=== PATIENT | female | born 1950 | race Caucasian/White ===

== ENCOUNTER 2020-01-14 12:38 | Outpatient (CLI) | payer OTHER, SELFPAY ==
--- NOTE | ~2020-01-14 | MM_ITS ---
EXAMINATION: MM screening renee BI w monroe HISTORY: Screening mammogram TECHNIQUE: Craniocaudal and mediolateral oblique 3-D tomosynthesis images were obtained and synthetic 2-D images were generated. CAD analysis was submitted and interpreted. COMPARISON: 08/28/2018, 08/15/2017, 08/02/2016 bilateral digital screening mammogram examinations BREAST PARENCHYMAL COMPOSITION: There are scattered areas of fibroglandular density. FINDINGS: Stable mild asymmetry. There is no evidence of suspicious mass, calcification, or digital solutions architect ural distortion to suggest malignancy in either breast. There has been no suspicious interval change. IMPRESSION: 1. No mammographic evidence of malignancy. 2. Recommend routine screening mammography in one year. BI-RADS Category 2: Benign finding(s). Reviewed, dictated and finalized at location A.
--- NOTE | ~2020-01-14 | DEXA_ITS ---
Bone Density Report Name: Loida Guillory Age: 69 Sex: Female Ethnicity: White Date of : 1950 Indication: postmenopausal; height loss; rheumatoid arthritis; Referring Provider: Denisse Mendoza Study: Bone densitometry was performed. Exam Date: January 14, 2020 Accession number: [id number] Bone Density: Region BMD T-score Z-score Classification AP Spine (L1-L4) 1.144 0.9 3.1 Normal Femoral Neck (Left) 0.676 -1.6 0.3 Osteopenia Total Hip (Left) 0.799 -1.2 0.4 Osteopenia Total Hip Bilateral Avg 0.801 -1.2 0.4 Osteopenia Femoral Neck (Right) 0.664 -1.7 0.2 Osteopenia Total Hip (Right) 0.803 -1.1 0.4 Osteopenia World Health Organization criteria for BMD impression classify patients as: Normal (T-score at or above -1.0), Osteopenia (T-score between -1.0 and -2.5), or Osteoporosis (T-score at or below -2.5). 10-year Fracture Risk(1): Major Osteoporotic Fracture 13% Hip Fracture 2.5% Reported Risk Factors: [place] (), Neck BMD=0.664, BMI=23.3, rheumatoid arthritis (1) FRAX(R) Version 3.08. Fracture probability calculated for an untreated patient. Fracture probability may be lower if the patient has received treatment. Clinical Information Provided by Patient: Has rheumatoid arthritis Has used the following medications: Calcium Patient maximum height was 65 Menopause Age: 46 No regular weight bearing exercise Drinks caffeinated beverages Onset of menses at age 10 Number of children 2 Impression: The patient has low bone mass, based on the Right Femoral Neck T-score. The patient has an estimated ten-year risk of hip fracture of 2.5% and an estimated ten-year risk of major fracture of 13%, based on the WHO FRAX algorithm. Discussion: BONE DENSITY IS LOW AT ONE OR MORE SKELETAL SITES. This patient's lowest T-score is low at one or more skeletal sites. It meets the World Health Organization's (WHO) criteria for ?low bone mass? (T-score between -1.0 and -2.5). The patient's 10-year risk of fracture as calculated by FRAX is less than the threshold where pharmacological therapy is recommended by the National Osteoporosis Foundation (NOF). However, all treatment decisions require clinical judgment and consideration of individual patient factors, including patient preferences, comorbidities, previous drug use, risk factors not captured in the FRAX model (e.g., frailty, falls, vitamin D deficiency, increased bone turnover, interval significant decline in bone density) and possible under or overestimation of fracture risk by FRAX. The patient should follow a healthful lifestyle (good nutrition with adequate calcium and vitamin D, and appropriate weight-bearing exercise). Follow-Up: Consider repeating this study in 2 to 3 years to reassess this patient's status, or sooner if there is some new clinical
== END 2020-01-14 12:39 | disposition home or self-care (01) ==
PROVIDERS: PCP Internal Medicine; Visit Provider Nurse Practitioner
DX: Z12.31 Encounter for screening mammogram for malignant neoplasm of breast (principal); Z78.0 Asymptomatic menopausal state; M85.852 Other specified disorders of bone density and structure, left thigh; M85.851 Other specified disorders of bone density and structure, right thigh
CPT/HCPCS: 77063; 77067; 77080

== ENCOUNTER 2020-06-16 11:30 | Outpatient (CLI) | payer OTHER, SELFPAY ==
--- NOTE | ~2020-06-16 | XR_ITS ---
EXAMINATION: XR foot LT standing 2V DATE: 06/16/2020 12:24 INDICATION: Rheumatoid arthritis with rheumatoid factor of multiple sites. TECHNIQUE: 2 views of left foot were obtained. COMPARISON: None. FINDINGS: Bone alignment is normal. No fracture. There is mild osteoarthritis at talonavicular joint and some of the interphalangeal joints. There are enthesophytes at the posterior and plantar aspects of calcaneal tuberosity. IMPRESSION: 1. Mild polyarticular osteoarthritis. Reviewed, dictated and finalized at location A. OYEE BENEFITS ATTORNEY
--- NOTE | ~2020-06-16 | XR_ITS ---
EXAMINATION: XR foot RT standing 2V DATE: 06/16/2020 12:24 INDICATION: Rheumatoid arthritis with rheumatoid factor of multiple sites. TECHNIQUE: 3 views of right foot were obtained. COMPARISON: None. FINDINGS: Bone alignment is normal. No fracture. There is mild osteoarthritis of some of the interpha langeal joints. There are enthesophytes at the posterior and plantar aspects of calcaneal tuberosity. IMPRESSION: 1. Mild polyarticular osteoarthritis. Reviewed, dictated and finalized at location A. L HEWER
--- NOTE | ~2020-06-16 | XR_ITS ---
EXAMINATION: XR hand BI arthritis min 3V DATE: 06/16/2020 12:24 INDICATION: Rheumatoid arthritis with rheumatoid factor of multiple sites. TECHNIQUE: 4 views of right hand and 4 views of left hand on 7 radiographs were obtained. COMPARISON: None. FINDINGS: RIGHT HAND: There is ulnar angulation of third middle phalanx with respect to the proximal phalanx, u lnar angulation of fifth proximal phalanx with respect to the metacarpal, and radial angulation of fi fth distal phalanx with respect to the middle phalanx. There are swan neck deformities of the third a nd fourth digits. No fracture. There is mild osteoarthritis of triscaphe joint and severe osteoarthri tis of first carpometacarpal joint. There is mild osteoarthritis of first metacarpophalangeal joint a nd moderate osteoarthritis of second metacarpophalangeal joint. There is mild osteoarthritis of fifth metacarpophalangeal joint. There is severe arthritis of second proximal interphalangeal joint, third proximal and distal interphalangeal joints, and fifth distal interphalangeal joint characterized by severe joint space loss, erosions, and osteophytes, likely severe osteoarthritis. There is moderate o steoarthritis of second distal interphalangeal joint and mild osteoarthritis of some of the other int erphalangeal joints. LEFT HAND: There is ulnar subluxation of second-fourth middle phalanges with respect to the proximal phalanges and radial subluxation of third and fourth distal phalanges with respect to the middle phal anges. There is radial angulation of fifth distal phalanx with respect to the middle phalanx. There a re swan-neck deformities of the second-fourth digits. There is mild osteoarthritis of triscaphe joint and severe osteoarthritis of first carpometacarpal joint. There is mild osteoarthritis of most of th e metacarpophalangeal joints and some of the interphalangeal joints. There is severe arthritis of sec ond proximal interphalangeal joint, third proximal and distal interphalangeal joints, and fourth and fifth proximal and distal interphalangeal joints of fifth distal interphalangeal joint characterized by severe joint space loss, erosions, and osteophytes, likely severe osteoarthritis. IMPRESSION: 1. Polyarticular osteoarthritis. No specific evidence of inflammatory arthropathy. Reviewed, dictated and finalized at location A. LE SKIMMER IMPRESSION: 1. Polyarticular osteoarthritis. No specific evidence of inflammatory arthropat hy.
--- NOTE | ~2020-06-16 | XR_ITS ---
EXAMINATION: XR cervical spine 4-5V DATE: 06/16/2020 12:24 INDICATION: Rheumatoid arthritis with rheumatoid factor of multiple sites. TECHNIQUE: 4 views of cervical spine were obtained. COMPARISON: Neck CT 01/01/2019 FINDINGS: There is 3 mm anterolisthesis of C4 on C5. There is kyphosis of lower cervical spine. There is 17 degrees levoscoliosis of cervicothoracic spine. Vertebral body heights are normal. There is mo derately decreased disc height at C4-C5 and severely decreased disc height at C5-C6 and C6-C7. There is multilevel facet joint osteoarthritis, severe on the left at C3-C4 and C4-C5. There is mild centra l canal stenosis at C4-C5, C5-C6, and C6-C7. No prevertebral soft tissue swelling. IMPRESSION: 1. Severe cervical spondylosis. 2. Cervicothoracic levoscoliosis. Reviewed, dictated and finalized at location A. TECHNICIAN
== END 2020-06-16 11:31 | disposition home or self-care (01) ==
LOC: ANHIMG 11:40
PROVIDERS: PCP Internal Medicine; Visit Provider Internal Medicine
DX: S63.072A Subluxation of distal end of left ulna, initial encounter (principal); M19.042 Primary osteoarthritis, left hand; M19.041 Primary osteoarthritis, right hand; M16.0 Bilateral primary osteoarthritis of hip; M47.812 Spondylosis without myelopathy or radiculopathy, cervical region; M41.9 Scoliosis, unspecified
CPT/HCPCS: 72050; 73130; 73620

== ENCOUNTER 2020-06-23 11:09 | Outpatient (CLI) | payer OTHER, SELFPAY ==
--- NOTE | ~2020-06-23 | US_ITS ---
EXAMINATION: US abdomen limited DATE: 06/23/2020 11:35 INDICATION: Right upper quadrant abdominal pain TECHNIQUE: Multiple grayscale and Doppler ultrasound images of the abdomen were obtained. COMPARISON: None FINDINGS: Visualized portion of the pancreatic body is normal. Portions of the head and tail are obscured. Live r has normal echogenicity and contour, with a smooth surface. No liver lesion identified. No intrahep atic biliary duct dilation suspected. Portal venous flow was seen in the hepatopetal, normal directio n and has normal Doppler waveform. The gallbladder is normal in appearance. There is no cholelithias is. The common bile duct measures 3 mm, which is normal. Sonographic Jones sign was reported as nega tive by the material attendant. The visualized proximal to mid inferior vena cava and aorta are normal. Righ t kidney measures 11.2 x 2.6 x 4.3 cm a demonstrates normal contour and echogenicity with no hydronep hrosis. IMPRESSION: 1. Normal right upper quadrant ultrasound. Reviewed, dictated and finalized at location B. ATION COURSES SALES REPRESENTATIVE
== END 2020-06-23 11:10 | disposition home or self-care (01) ==
LOC: ANHIMG 11:10
PROVIDERS: PCP Internal Medicine; Visit Provider Internal Medicine
DX: R10.11 Right upper quadrant pain (principal)
CPT/HCPCS: 76705

== ENCOUNTER 2021-01-19 08:02 | Outpatient (CLI) | payer OTHER, SELFPAY ==
--- NOTE | ~2021-01-19 | MM_ITS ---
EXAMINATION: MM screening renee BI w monroe HISTORY: Screening TECHNIQUE: Craniocaudal and mediolateral oblique 3-D tomosynthesis images were obtained and synthetic 2-D images were generated. CAD analysis was submitted and interpreted. COMPARISON: Comparison to multiple prior studies sequentially, with oldest reviewed study dated 07/13. BREAST PARENCHYMAL COMPOSITION: Breast composed of scattered areas of fibroglandular density FINDINGS: There is no evidence of suspicious mass, calcification, or architectural distortion to sugg est malignancy in either breast. There has been no suspicious interval change. IMPRESSION: 1. No mammographic evidence of malignancy. 2. Recommend routine screening mammography in one year. BI-RADS Category 1: Negative Reviewed, dictated and finalized at location A.
== END 2021-01-19 08:03 | disposition home or self-care (01) ==
LOC: ANHIMG 08:04
PROVIDERS: PCP Internal Medicine; Visit Provider Nurse Practitioner
DX: Z12.31 Encounter for screening mammogram for malignant neoplasm of breast (principal)
CPT/HCPCS: 77063; 77067

== ENCOUNTER 2021-07-22 08:34 | Outpatient (CLI) | payer OTHER, SELFPAY ==
--- NOTE | ~2021-07-22 | CT_ITS ---
EXAMINATION: CT soft tissue neck wo con DATE: 07/22/2021 09:36 INDICATION: Left jaw pain. TECHNIQUE: Computed tomography (CT) of the neck was performed without intravenous contrast. Automated exposure control and iterative reconstruction technique were employed. The dose-length product was 2 86.76 mGy-cm. COMPARISON: CT neck 01/01/2019 FINDINGS: There is mild scarring at the lung apices. In the right lung upper lobe, there is a 14 mm n odule. There are likely changes of ocular lens replacement surgeries. There is a 3.6 cm mass in super ficial right parotid gland. There are no pathologically enlarged lymph nodes. The mastoid air cells a re normal. The paranasal sinuses are clear. There is mild osteoarthritis of left temporomandibular shay int. There is severe cervical spondylosis. IMPRESSION: 1. New 14 mm nodule in right lung upper lobe suspicious for primary bronchogenic carcinoma. 2. Stable 3.6 cm mass in superficial right parotid gland. The differential diagnosis includes benign mixed tumor and Warthin tumor. Reviewed, dictated and finalized at location A. IMPRESSION: 1. New 14 mm nodule in right lung upper lobe suspicious for primary bronchogeni c carcinoma. 2. Stable 3.6 cm mass in superficial right parotid gland. The differential diag nosis includes benign mixed tumor and Warthin tumor.
== END 2021-07-22 08:35 | disposition home or self-care (01) ==
LOC: ANHIMG 08:37
PROVIDERS: PCP Internal Medicine; Visit Provider Nurse Practitioner
DX: R68.84 Jaw pain (principal); H92.02 Otalgia, left ear; R91.1 Solitary pulmonary nodule; K11.8 Other diseases of salivary glands
CPT/HCPCS: 70490

== ENCOUNTER 2021-08-07 18:47 | Emergency (ER) | payer OTHER, SELFPAY ==
[2021-08-07 19:20] VITALS: BP 113/50; PULSE 89; RESP 17; TEMP 37.3; O2SAT 97
--- NOTE | 2021-08-07 19:45 | ED.GENADULT ---
HPI - General Adult General Chief complaint: Nausea/Vomiting/Diarrhea Stated complaint: nausea/vomiting/diarrhea Time Seen by Provider: 08/07/21 19:24 Source: patient and family Limitations: no limitations History of Present Illness HPI narrative: 71-year-old female presented to the emergency department for evaluation of nausea vomiting diarrhea and dizziness. Patient states that she had follow-up with ENT approximately 10 days ago and was started on amoxicillin and steroid. Patient states after approximately 5 days of being on the amoxicillin she began developing diarrhea. Patient states she did have 2 episodes of nausea. Patient suspects that she is dehydrated and has had some associated dizziness. Patient denies any associated abdominal pain. Patient stopped taking the antibiotics yesterday. Patient denies any prior history of C. difficile Related Data Home Medications Medication Instructions Recorded Confirmed aspirin 81 mg tablet,delayed 81 mg PO DAILY 06/17/19 07/13/21 release budesonide-formoterol HFA 160 2 puff INHALATION Q12H 06/17/19 07/13/21 mcg-4.5 mcg/actuation aerosol inhaler omega-3 fatty acids 1,000 mg 1,000 mg PO DAILY 06/17/19 07/13/21 capsule calcium carbonate 600 mg-vitamin 1 tablet PO DAILY 07/13/21 07/13/21 D3 20 mcg (800 unit) tablet Allergies Allergy/AdvReac Type Severity Reaction Status Date / Time omeprazole Allergy Unknown rash Verified 08/07/21 19:14 Review of Systems Review of Systems: CONSTITUTIONAL: Denies fever, chills, or sweats. EYES: Denies visual changes, redness, or discharge. ENT: Denies rhinorrhea, congestion, sore throat, or otalgia. CARDIOVASCULAR: Denies chest pain, palpitations, or edema. RESPIRATORY: Denies cough or dyspnea. GASTROINTESTINAL: See HPI GENITOURINARY: Denies dysuria or hematuria. SKIN: Denies rash or itching. MUSCULOSKELETAL: Denies back pain, joint pain, or myalgia. NEUROLOGIC: Denies headache, numbness, or weakness. PSYCHIATRIC: Denies anxiety or depression. All systems reviewed & are unremarkable except as noted in HPI and below PMFSH Past Medical History Medical History Arthritis Cancer of vulva Epigastric abdominal pain Generalized osteoarthritis of multiple sites Hypertension Rheumatoid arthritis with rheumatoid factor of multiple sites without organ or systems involvement (~2018) Tumor of soft tissue of neck (~2020) Surgical History Surgical History Hx of cataract surgery Family History Family History Mother Cerebrovascular accident Kidney disease Sibling Family history of malignant neoplasm Grandparent Hypertension Heart disease Social History Social History Smoking packs per day: 1 Smoking cigarettes per day: 20.0 Years smoked: 40 Smoking pack-years: 40.00 Smoking end date: 04/23/15 Alcohol intake: never Exam Narrative: APPEARANCE: Well appearing, no pain, no distress, well-nourished. HEAD: normocephalic, atraumatic. EYES: PERRLA/EOMI, conjunctivae clear. NOSE: Normal no drainage NECK: Supple. No adenopathy, no masses. RESPIRATORY: Airway patent, respirations nonlabored. Clear to auscultation bilaterally, no rales, rhonchi, wheezing. CARDIOVASCULAR: Regular rate and rhythm without murmurs rubs or gallops. ABDOMINAL: Soft, nontender, nondistended, normal bowel sounds MUSCULOSKELETAL: Moves all extremities. Strength/ROM intact, No edema, No calf tenderness. NEURO: Alert. Cranial nerves II through XII intact. Grossly intact SKIN: Warm, dry. Normal Color Course Course Emergency Course: Patient did have some ketones in her urine and she was treated with 500 mL of normal saline. Patient is tolerating p.o. Patient felt improved with treatment. Patient is already stopped taking the antibio
[2021-08-07 20:04] LABS: Hematocrit 37.1 % (37.0-47.0); Hemoglobin 12.2 g/dL (12.0-15.0); Mean Corpuscular HGB Conc 32.9 g/dl (32-36); Mean Corpuscular Volume 103.3 fl (80-100); Mean Platelet Volume 9.9 fl (7.4-10.4); Platelet Count Result 228 k/mm3 (150-375); Red Blood Count 3.59 M/mm3 (4.2-5.4); Red Cell Distribution Width 14.2 % (11.5-14.5); White Blood Count 20.1 K/mm3 (4.5-10.0)
[2021-08-07 20:12] LABS: Alanine Aminotransferase 14 U/L (4-35); Albumin Level 3.6 g/dL (3.5-5.1); Alkaline Phosphatase 61 U/L (38-126); Anion Gap 8 mmol/L (8-16); Aspartate Amino Transferase 25 U/L (14-36); Bilirubin,Total 0.6 mg/dL (0.2-1.3); Blood Urea Nitrogen 15 mg/dL (7-17); Calcium 8.5 mg/dL (8.4-10.2); Carbon Dioxide 24 mmol/L (22-30); Chloride 102 mmol/L (98-107); Estimated CRCL calculation 40 ml/min; Estimated Glomerular Filt Rate > 60; Glucose 107 mg/dL (65-110); Lipase 33 U/L (23-300); Potassium 3.2 mmol/L (3.4-5.0); Sodium 134 mmol/L (137-145)
[2021-08-07 20:23] LABS: Band Neutrophils Percent 10 % (0-6); Monocytes Percent Manual 5 % (3-9); Neutrophils Absolute Manual 18.09 K/mm3 (1.7-7.2); Neutrophils Percent Manual 80 % (46-73); Total Cells Counted 100
[2021-08-07 20:24] LABS: Platelet Estimate Adequate (Adequate)
[2021-08-07] MEDS: POTASSIUM CHLORIDE 20 MEQ PACKET (FOR LIQUID) 40 MEQ PO (20:27)
[2021-08-07 20:38] LABS: Appearance Urine Clear (Clear); Bilirubin Urine Negative (Negative); Blood Urine 1+ (Negative); Color Urine Yellow (Yellow); Glucose Urine UA Negative (Negative); Ketones Urine 1+ mg/dL (Negative); Leukocyte Esterase Ur Negative LEU/UL (Negative); Nitrate Urine Negative (Negative); Protein Urine Negative (Negative); Specific Grav Ur 1.015 (1.001-1.035); Urobilinogen Urine 0.2 mg/dL (<2.0)
[2021-08-07 20:41] LABS: Mucus Urine Rare /lpf; Squamous Epithelial Cell Urine Rare /hpf (Few); WBC Urine 0-3 /hpf
[2021-08-07 20:44] LABS: Add Urine Microscopic? YES
[2021-08-07] MEDS: SODIUM CHLORIDE 0.9% IV 500 ML 999 ML IV CONT (20:56)
[2021-08-07 20:59] VITALS: BP 127/64; PULSE 75; RESP 17; TEMP 36.9; O2SAT 96
== END 2021-08-07 22:01 | disposition home or self-care (01) ==
PROVIDERS: Emergency Medicine; Emergency Provider Emergency Medicine; PCP Internal Medicine
DX: R19.7 Diarrhea, unspecified (principal); Z79.82 Long term (current) use of aspirin; M19.90 Unspecified osteoarthritis, unspecified site; I10 Essential (primary) hypertension; M05.79 Rheumatoid arthritis with rheumatoid factor of multiple sites without organ or systems involvement; Z98.49 Cataract extraction status, unspecified eye; Z85.44 Personal history of malignant neoplasm of other female genital organs; Z87.891 Personal history of nicotine dependence
CPT/HCPCS: 36415; 80053; 81001; 83690; 85025; 99283; A9270; J7040

== ENCOUNTER 2021-08-11 14:33 | Outpatient (CLI) | payer OTHER, SELFPAY ==
--- NOTE | ~2021-08-11 | CT_ITS ---
EXAMINATION: CT diagnostic chest wo con DATE: 08/11/2021 15:03 INDICATION: Right lung mass TECHNIQUE: Computed tomography (CT) of the chest was performed without intravenous contrast. The dose -length product (DLP) was 129.50 mGy-cm. Automated exposure control and iterative reconstruction tech [place] were employed. COMPARISON: 01/01/2019, 07/22/2021 FINDINGS: There is stable 14 mm nodule of the right upper lobe. There is a 4 mm nodule of the right l ирина apex on image 27. There is moderate emphysema. The lungs are free of acute opacities. There is no pleural effusion or pneumothorax. No pathologically enlarged thoracic lymph nodes are identified. Th e heart size is normal. Calcified coronary artery atherosclerosis is noted. There is moderate thoraci c spondylosis. Punctate calcifications in an otherwise normal spleen likely represent healed granulom atous disease. Calcified pulmonary nodules and calcified left hilar lymph nodes are consistent with o ld granulomatous disease. IMPRESSION: 1. 14 mm nodule of the right upper lobe, suspicious for primary bronchogenic carcinoma. 2. 4 mm nodule of the right lung apex, indeterminate. Reviewed, dictated and finalized at location F. IMPRESSION: 1. 14 mm nodule of the right upper lobe, suspicious for primary bronchogenic ca rcinoma. 2. 4 mm nodule of the right lung apex, indeterminate.
== END 2021-08-11 14:34 | disposition home or self-care (01) ==
LOC: ANHIMG 14:34
PROVIDERS: PCP Internal Medicine; Visit Provider Nurse Practitioner
DX: R91.8 Other nonspecific abnormal finding of lung field (principal); M47.814 Spondylosis without myelopathy or radiculopathy, thoracic region; J43.9 Emphysema, unspecified
CPT/HCPCS: 71250

== ENCOUNTER 2021-08-23 09:01 | Outpatient (CLI) | payer OTHER, SELFPAY ==
--- NOTE | 2021-08-18 15:29 | PC.NURSE ---
Pre Radiology instructions Report to the Outpatient Waiting Room, entrance under the green pavilion located off [address], at time _0900 on date _08/23/21 . Procedure Time: 1100 . One visitor will be allowed to accompany the patient into the hospital. The visitor will be instructed to remain with patient at all times or leave the building. We will allow the visitor to come back to the postoperative area when patient is ready. You and your visitor will be asked a series of questions to screen for COVID 19 for your protection. A mask is required within the hospital. Pre-procedure COVID Testing Requirements: No COVID Test needed if: (proof is required; if not received patient will have Rapid Test prior to entry)- Patient has received COVID Vaccine at least 14 days prior to procedure date or- Patient has positive COVID test result within last 90 days of procedure date. COVID Test needed if above criteria is not met If not COVID vaccinated a COVID test must be conducted within 72 hours of surgery and patient is asked to isolate self from time of testing until procedure. You will go to the [facility] for your COVID testing. The [facility] is located at the corner of [address] [facility]. You will only be called if COVID results are positive and your surgeon may reschedule your elective procedure date Patients are to have no food or drink 6 hours prior to procedure time Driving will be restricted after the procedure, you must have a person to drive you home. Labs will be drawn in preop area and once reviewed, you will be taken to radiology area for procedure. When the procedure is completed, you will be taken to outpatient where you will be monitored for several hours. You may have one visitor in this area. Other than holding anti-coagulants, patient may take other medication(s) as scheduled. Prior to your appointment date patients are instructed to hold anti-coagulants after discussing with ordering provider to stop. If unable to discontinue anti-coagulants please notify radiologist. No aspirin or warfarin (Coumadin) for 7 days prior to the procedure. No clopidogrel (Plavix), ticagrelor (Brilinta), prasugrel (Effient) or dabigatran (Pradaxa) for 5 days prior to the procedure. No rivaroxaban (Xarelto), apixaban (Eliquis), dipyridamole (Aggrenox or Persantine) or cilostazol (Pletal) for 2 days prior to the procedure. Medications to discontinue per physician: ___ASPIRIN 7 DAYS PRE PROCEDURE Date to take last dose: __PT STATES LAST DOSE WAS 08/12/21 Please leave all valuables, including medications, at home the day of procedure. The hospital will not accept responsibility for valuables. Wear comfortable, loose fitting clothing. Follow any additional instructions given to you from ordering provider. Telephone instructions given to __PATIENT and asked if any additional questions and then verbalized understanding. Patient advised to call scheduling provider office or registration scheduling [phone] if any additional questions.
[2021-08-18 15:34] VITALS: BMI 24.3
[2021-08-23] VITALS (9 sets, daily range): BP systolic 111–130; BP diastolic 53–65; PULSE 60–84; RESP 16; TEMP 36.2–36.6; O2SAT 98–100
--- NOTE | ~2021-08-23 | XR_ITS ---
EXAMINATION: XR chest 1V DATE: 08/23/2021 11:20 INDICATION: Status post percutaneous lung biopsy TECHNIQUE: frontal view of the chest was obtained. COMPARISON: Chest radiograph dated 04/12/2017 FINDINGS: Minimal groundglass opacity consistent with postbiopsy hemorrhage about the biopsied right upper lobe nodule at the lateral right upper lung zone. Minimal left basilar atelectasis. Heart size is normal. Calcified left hilar lymph nodes consistent with old granulomatous disease. No other airspace opacit ies, pulmonary edema, pleural effusion or pneumothorax. Mild lower thoracic levocurvature. IMPRESSION: 1. Minimal pulmonary hemorrhage surrounding the biopsied right upper lobe nodule which is concerning for primary bronchogenic carcinoma. Reviewed, dictated and finalized at location A. IMPRESSION: 1. Minimal pulmonary hemorrhage surrounding the biopsied right upper lobe nodul e which is concerning for primary bronchogenic carcinoma.
--- NOTE | ~2021-08-23 | CT_ITS ---
EXAMINATION: CT biopsy lung w/imaging DATE: 08/23/2021 11:25 INDICATION: Right upper lobe pulmonary nodule TECHNIQUE: The procedure including the risks and benefits was discussed with the patient. Risks discu ssed included infection, approximately 1/20 risk of symptomatic hemorrhage beyond mild hemoptysis, ap proximately 1/3 risk of pneumothorax, and approximately 1/10 risk of pneumothorax severe enough to wa rrant chest tube placement. The patient understood the risks and agreed to proceed. The patient was p laced supine. The skin overlying the anterior right upper chest was prepped and draped in sterile fa shion. Anesthetic was administered with 1% lidocaine subcutaneously. A 19 gauge outer needle was ad vanced under CT guidance to the lesion of interest. A 20 gauge core biopsy needle was then used to ob tain 3 core biopsy specimens. The needle was removed and the entry site was cleaned and dressed. The re were no immediate complications. The dose-length product was 199.86 mGy-cm. FINDINGS: CT images demonstrate the outer needle tip adjacent to a 1.4 cm right upper lobe nodule. IMPRESSION: 1. Successful CT-guided biopsy of a 1.5 cm right upper lobe nodule which is concerning for primary br onchogenic carcinoma. Reviewed, dictated and finalized at location A. IMPRESSION: 1. Successful CT-guided biopsy of a 1.5 cm right upper lobe nodule which is con cerning for primary bronchogenic carcinoma.
--- NOTE | ~2021-08-23 | XR_ITS ---
EXAMINATION: XR chest 1V portable DATE: 08/23/2021 14:27 INDICATION: Right lung nodule status post percutaneous biopsy. TECHNIQUE: A single frontal view of the chest was obtained. COMPARISON: Chest single view at 12:41 PM FINDINGS: There is a nodule in right lung upper lobe. A calcified left lung nodule and calcified left hilar and mediastinal lymph nodes are consistent with old granulomatous disease. No pleural effusion or pneumothorax. The heart size is normal. IMPRESSION: 1. Right lung nodule suspicious for primary bronchogenic carcinoma. Reviewed, dictated and finalized at location B.
--- NOTE | ~2021-08-23 | XR_ITS ---
EXAMINATION: XR chest 1V portable DATE: 08/23/2021 12:45 INDICATION: Right lung nodule status post percutaneous biopsy. TECHNIQUE: A single frontal view of the chest was obtained. COMPARISON: Chest single view at 11:18 AM FINDINGS: There is a nodule in right lung upper lobe. No pleural effusion or pneumothorax. Calcified left hilar lymph nodes are consistent with old granulomatous disease. The heart size is normal. IMPRESSION: 1. Nodule in right lung upper lobe suspicious for primary bronchogenic carcinoma. Reviewed, dictated and finalized at location B. IMPRESSION: 1. Nodule in right lung upper lobe suspicious for primary bronchogenic carcinom a.
[2021-08-23 10:09] LABS: INR 1.1; Prothrombin Time 13.6 Seconds (11.1-14.7)
== END 2021-08-23 15:00 | disposition home or self-care (01) ==
PROVIDERS: PCP Internal Medicine; Visit Provider Radiology Diagnostic Radiology
PROC: BB24ZZZ Computerized Tomography (CT Scan) of Bilateral Lungs (ICD-10-PCS; CPT 32408; principal; 2021-08-23 11:00)
DX: C34.11 Malignant neoplasm of upper lobe, right bronchus or lung (principal); R91.8 Other nonspecific abnormal finding of lung field
CPT/HCPCS: 32408; 36415; 71045; 85610; 88305

== ENCOUNTER 2021-09-08 09:08 | Outpatient (CLI) | payer OTHER, SELFPAY ==
--- NOTE | ~2021-09-08 | PE_ITS ---
EXAMINATION: PET skull to mid thigh DATE: 09/08/2021 11:03 INDICATION: Malignant neoplasm of the upper lobe of right lung. TECHNIQUE: Blood glucose level was 100 mg/dL. 9.845 mCi of 18-fluorodeoxyglucose (18-FDG) was adminis tered i.v. Low dose computed tomography (CT) images were acquired from the base of the brain to the p roximal thighs for attenuation correction and anatomic localization. Automated exposure control was e mployed. Dose-length product (DLP) was 310 mGy-cm. Positron emission tomography (PET) images were acq uired in the same distribution. COMPARISON: Chest CT 08/11/2021, neck CT 07/22/2021, 01/01/19 FINDINGS: Head/neck: There is increased activity in the oral cavity, oropharynx, and paraspinal muscles without abnormal CT correlate, likely physiologic. There is a 2.4 cm mass in superficial right parotid gland with maximum SUV of 8.6. There are no pathologically enlarged lymph nodes. Chest: There is mild scarring at the lung apices. There is mild emphysema. There is a 15 mm nodule in right lung upper lobe with maximum SUV of 6.3. Again seen is a 4 mm nodule in right lung upper lobe without increased activity, likely benign. Calcified left hilar and mediastinal lymph nodes are consi stent with old granulomatous disease. No pleural effusion. The heart size is normal. There are claire ry artery calcifications. No pericardial effusion. Abdomen/pelvis/proximal thighs: The liver is normal. Calcifications in the spleen are consistent with old granulomatous disease. The pancreas, gallbladder, adrenal glands, and kidneys are normal. There are no dilated loops of bowel. There is diverticulosis of the colon without evidence of diverticuliti s. There are no pathologically enlarged lymph nodes. There is no free intraperitoneal fluid. There is no osseous malignancy. IMPRESSION: 1. 15 mm nodule in right lung upper lobe with maximum SUV of 6.3, consistent with biopsy-proven squam ous cell carcinoma. 2. 2.4 cm mass in superficial right parotid gland with increased activity, stable from 01/01/2019. The differential diagnosis includes benign mixed tumor and Warthin tumor. Reviewed, dictated and finalized at location A. IMPRESSION: 1. 15 mm nodule in right lung upper lobe with maximum SUV of 6.3, consistent wi th biopsy-proven squamous cell carcinoma. 2. 2.4 cm mass in superficial right parotid gland with increased activity, stab le from 01/01/2019. The differential diagnosis includes benign mixed tumor and W arthin tumor.
[2021-09-08 09:37] LABS: Glucose Point of Care 100 mg/dl (65-105)
== END 2021-09-08 09:09 | disposition home or self-care (01) ==
PROVIDERS: PCP Internal Medicine
DX: Z03.89 Encounter for observation for other suspected diseases and conditions ruled out (principal); C34.11 Malignant neoplasm of upper lobe, right bronchus or lung
CPT/HCPCS: 78815; A9552

== ENCOUNTER 2022-04-03 13:50 | Outpatient (CLI) | payer OTHER, SELFPAY ==
--- NOTE | ~2022-04-03 | MM_ITS ---
EXAMINATION: MM screening renee BI w monroe HISTORY: Screening TECHNIQUE: Craniocaudal and mediolateral oblique 3-D tomosynthesis images were obtained and synthetic 2-D images were generated. CAD analysis was submitted and interpreted. COMPARISON: Comparison to multiple prior studies sequentially, with oldest reviewed study dated 07/13. BREAST PARENCHYMAL COMPOSITION: There are scattered areas of fibroglandular density. FINDINGS: There is no evidence of suspicious mass, calcification, or architectural distortion to sugg est malignancy in either breast. There has been no suspicious interval change. IMPRESSION: 1. No mammographic evidence of malignancy. 2. Recommend routine screening mammography in one year. BI-RADS Category 1: Negative Reviewed, dictated and finalized at location B. 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
--- NOTE | ~2022-04-03 | DEXA_ITS ---
Bone Density Report Name: DARRION CAAL Age: 71 Sex: Female Ethnicity: White Date of : 1950 Indication: postmenopausal; screening for osteoporosis; height loss; cancer; rheumatoid arthritis; Referring Provider: AUGUSTA DIXON Study: Bone densitometry was performed. Exam Date: April 03, 2022 Accession number: [id number] Bone Density: Region BMD T-score Z-score Classification AP Spine(L1-L4) 1.110 0.6 2.9 Normal Femoral Neck (Left) 0.649 -1.8 0.2 Osteopenia Total Hip (Left) 0.781 -1.3 0.4 Osteopenia Femoral Neck (Right) 0.673 -1.6 0.4 Osteopenia Total Hip (Right) 0.801 -1.2 0.6 Osteopenia Total Hip Mean 0.791 -1.3 0.5 Osteopenia World Health Organization criteria for BMD impression classify patients as: Normal (T-score at or above -1.0), Osteopenia (T-score between -1.0 and -2.5), or Osteoporosis (T-score at or below -2.5). 10-year Fracture Risk: FRAX not reported because: Treated for osteoporosis Clinical Information Provided by Patient: Has rheumatoid arthritis Is being treated for osteoporosis Has used the following medications: Vitamin D, Calcium Has the following medical conditions: Cancer Patient maximum height was 65 Menopause Age: 46 No regular weight bearing exercise Drinks caffeinated beverages Onset of menses at age 10 Number of children 2 Impression: The patient has low bone mass, based on the Left Femoral Neck T-score. Discussion: It is important to ask patients whether they are taking their medications and to encourage continued and appropriate compliance with their osteoporosis therapies to reduce fracture risk. It is also important to review their risk factors and encourage appropriate calcium and vitamin D intakes, exercise, fall prevention and other lifestyle measures. Follow-Up: Consider a repeat BMD and Vertebral Fracture Assessment (VFA) exam in 2 years or sooner if medically necessary, to reassess this patient's status. Reported by: TOYIN on 04/03/2022 2:20:00 PM. Reviewed, dictated and finalized at location AAnkush MUNOZ
== END 2022-04-03 13:51 | disposition home or self-care (01) ==
LOC: ANHIMG 13:54
PROVIDERS: PCP Internal Medicine; Visit Provider Nurse Practitioner
DX: Z12.31 Encounter for screening mammogram for malignant neoplasm of breast (principal); Z78.0 Asymptomatic menopausal state; M85.89 Other specified disorders of bone density and structure, multiple sites
CPT/HCPCS: 77063; 77067; 77080

== ENCOUNTER 2022-04-10 17:49 | Outpatient (CLI) | payer OTHER, SELFPAY ==
--- NOTE | ~2022-04-10 | CT_ITS ---
CT Scan of the Chest without Contrast: Clinical Indication: Malignant neoplasm of lung Technique: Contiguous sections were acquired throughout the chest without intravenous contrast. Dose reduction technique was used on this scan by utilizing automated exposure control and iterative recon struction technique. The dose-length product (DLP) was 150.67 mGy-cm. COMPARISON: 08/23/2021 Findings: There is no evidence of any significant mediastinal, hilar or axillary lymphadenopathy. Calcified lef t hilar lymph nodes are present. Postoperative changes are present at the right hilar region. There is no evidence of pleural or pericardial effusion. Patient is status post left upper lobectomy. There is associated mild postoperative scarring in the r ight lung. There is bibasilar honeycomb formation. Probable mild emphysema. Images through the upper abdomen reveal calcified splenic granulomas. Impression: No evidence for active malignancy or metastatic disease. Status post right upper lobectomy. Mild bibasilar chronic interstitial disease with focal areas of bibasilar honeycomb formation. Probable mild emphysema. Reviewed, dictated and finalized at location . [facility] Impression: No evidence for active malignancy or metastatic disease. Status post right upper lobectomy. Mild bibasilar chronic interstitial disease with focal areas of bibasilar honey comb formation. Probable mild emphysema.
== END 2022-04-10 17:50 | disposition home or self-care (01) ==
PROVIDERS: PCP Internal Medicine
DX: C34.90 Malignant neoplasm of unspecified part of unspecified bronchus or lung (principal); J84.9 Interstitial pulmonary disease, unspecified
CPT/HCPCS: 71250

== ENCOUNTER 2022-06-07 17:04 | Emergency (ER) | payer OTHER, SELFPAY ==
[2022-06-07] VITALS (17 sets, daily range): BP systolic 97–131; BP diastolic 48–81; PULSE 66–82; RESP 16–27; TEMP 37–37.6; O2SAT 79–98
--- NOTE | ~2022-06-07 | CT_ITS ---
EXAMINATION: CT brain wo con DATE: 06/07/2022 18:44 INDICATION: rectal surg this am, fever, weakness, fall . TECHNIQUE: Computed tomography (CT) of the head was performed without intravenous contrast. The mA wa s adjusted according to patient size. Iterative reconstruction technique was employed. The dose-lengt h product was 605.33 mGy-cm. COMPARISON: None. FINDINGS: No acute intracranial hemorrhage or extra-axial fluid collection. No hydrocephalus, mass, or herniation. No acute ischemic infarct. Unremarkable dural venous sinus attenuation. No acute osseous abnormality. The aerated spaces are clear. Mild atrophy and chronic white matter change. Atherosclerotic intracranial calcification. Bilateral l ens replacements. IMPRESSION: No acute intracranial process. Reviewed, dictated and finalized at location K. ING MACHINE OPERATOR THERMIT
--- NOTE | ~2022-06-07 | XR_ITS ---
EXAMINATION: XR chest 2V Exam Date/Time: 06/07/2022 17:16 TABLE MAKER HISTORY: weakness. HAD COLON SURGERY THIS MORNING. Comparison: 08/23/2021. RESULT: Lines, tubes, and devices: Right upper lung suture material. Lungs and pleura: Senescent change. Bibasilar scar/atelectasis. Mild right costophrenic angle blunti ng, likely chronic pleural parenchymal scar. Cardiomediastinal silhouette: Stable. Hilar and mediastinal wil calcifications. Other: No acute osseous or upper abdominal finding. IMPRESSION: No acute cardiopulmonary process. Reviewed, dictated and finalized at location K. E MAKER
--- NOTE | 2022-06-07 17:08 | ECG_ITS ---
Measurements Intervals [place] Rate: 68 P: 39 [place]: 175 QRS: 4 QRSD: 94 T: 61 QT: 384 QTc: 409 Interpretive Statements SINUS RHYTHM NONSPECIFIC ST & T-WAVE ABNORMALITY NO PREVIOUS ECG AVAILABLE FOR COMPARISON Electronically Signed On 06-08-2022 14:50:49 MARINE DIVER by Nadeem Salazar M.D.
[2022-06-07 18:12] LABS: Hematocrit 35.7 % (37.0-47.0); Hemoglobin 11.7 g/dL (12.0-15.0); Mean Corpuscular HGB Conc 32.8 g/dl (32-36); Mean Corpuscular Hemoglobin 33.3 pg (26-34); Mean Corpuscular Volume 101.7 fl (80-100); Mean Platelet Volume 9.6 fl (7.4-10.4); Platelet Count Result 191 k/mm3 (150-375); Red Blood Count 3.51 M/mm3 (4.2-5.4); Red Cell Distribution Width 14.3 % (11.5-14.5); White Blood Count 13.7 K/mm3 (4.5-10.0)
--- NOTE | 2022-06-07 18:31 | ED.GENADULT ---
HPI - General Adult General Chief complaint: Weakness <BLAYNE Bansal Last Filed: 06/08/22 03:34> Stated complaint: wobbly and weak after surgery this am <BLAYNE Bansal Last Filed: 06/08/22 03:34> Time Seen by Provider: 06/07/22 18:10 <BLAYNE Bansal Last Filed: 06/08/22 03:34> Source: patient and family <BLAYNE Bansal Last Filed: 06/08/22 03:34> Mode of arrival: ambulatory <BLAYNE Bansal Last Filed: 06/08/22 03:34> Limitations: no limitations <BLAYNE Bansal Last Filed: 06/08/22 03:34> History of Present Illness HPI narrative: Patient is a 71-year-old female who presents to the ED with report of weakness and fever. Daughter at bedside assisted in providing information. 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 Luz Lewis at [facility]. The lesions were mostly external or on the rim of her anus. She was under propofol sedation for approximately 20 minutes for the surgery. Patient was doing fine at home initially after the surgery. She complained of chills to her daughter and checked her temperature to be 104 ?F at that time. She took 2 Tylenol around 3 PM. When daughter arrived at patient's home, she had fallen after tripping over a chair. Patient denies any head injury or LOC. She states she has been feeling slightly lightheaded and weak throughout the day. Daughter states patient was unable to even stand and walk due to the weakness, which prompted their presentation. No focal weakness. Patient denies any abdominal pain, rectal pain, nausea, vomiting, headache, vision changes, chest pain, difficulty breathing, dysuria, hematuria. Patient has been able to eat and drink today. <BLAYNE Bansal Last Filed: 06/08/22 03:34> Related Data Home medications: Home Medications Medication Instructions Recorded Confirmed aspirin 81 mg tablet,delayed 81 mg PO DAILY 06/17/19 01/19/22 release (Adult Low Dose Aspirin) budesonide-formoterol HFA 160 2 puff inhalation Q12H 06/17/19 01/19/22 mcg-4.5 mcg/actuation aerosol inhaler (Symbicort) omega-3 fatty acids 1,000 mg 1,000 mg PO DAILY 06/17/19 01/19/22 capsule (Fish Oil Concentrate) calcium carbonate 600 mg-vitamin 1 tablet PO DAILY 07/13/21 01/19/22 D3 20 mcg (800 unit) tablet <Rafaela Atwood PA-C - Last Filed: 06/08/22 03:34> Allergies/adverse reactions: Allergies Allergy/AdvReac Type Severity Reaction Status Date / Time amoxicillin Allergy Mild Diarrhea Verified 06/07/22 18:55 omeprazole Allergy Unknown rash Verified 06/07/22 18:55 <Rafaela Atwood PA-C - Last Filed: 06/08/22 03:34> Review of Systems Review of Systems: CONSTITUTIONAL: See HPI. EYES: Denies visual changes, redness, or discharge. ENT: Denies rhinorrhea, congestion, sore throat. CARDIOVASCULAR: Denies chest pain. RESPIRATORY: Denies cough or dyspnea. GASTROINTESTINAL: Denies abdominal pain, nausea, vomiting. GENITOURINARY: Denies dysuria or hematuria. SKIN: Denies rash or itching. NEUROLOGIC: See HPI. <Rafeala Atwood PA-C - Last Filed: 06/08/22 03:34> All systems reviewed & are unremarkable except as noted in HPI and below <Rafaela Atwood PA-C - Last Filed: 06/08/22 03:34> [facility] Past Medical History Medical History: Medical History Arthritis Cancer of vulva Epigastric abdominal pain Generalized osteoarthritis of multiple sites Hypertension Rheumatoid arthritis with rheumatoid factor of multiple sites without organ or systems involvement (~2018) Tumor of soft tissue of neck (~2020) <Rafaela Atwood PA-C - Last Filed: 06/08/22 03:34> Surgical History Surgical History: Surgical History History of lobectomy of lung Hx of cataract sanchez
[2022-06-07 18:35] LABS: Alanine Aminotransferase 18 U/L (6-35); Albumin Level 3.7 g/dL (3.5-5.1); Alkaline Phosphatase 80 U/L (38-126); Anion Gap 4 mmol/L (8-16); Aspartate Amino Transferase 25 U/L (14-36); Bilirubin,Total 0.5 mg/dL (0.2-1.3); Blood Urea Nitrogen 15 mg/dL (7-17); Calcium 8.1 mg/dL (8.4-10.2); Carbon Dioxide 25 mmol/L (22-30); Chloride 106 mmol/L (98-107); Estimated CRCL calculation 40 ml/min; Estimated Glomerular Filt Rate > 60; Glucose 113 mg/dL (65-110); Potassium 3.4 mmol/L (3.4-5.0); Sodium 135 mmol/L (137-145)
[2022-06-07 18:48] LABS: Band Neutrophils Percent 4 % (0-6); Lymphocytes Absolute Manual 0.41 K/mm3 (1.1-4.5); Monocytes Absolute Manual 1.78 K/mm3 (0.1-0.90); Monocytes Percent Manual 13 % (3-9); Neutrophils Percent Manual 80 % (46-73); Platelet Estimate Adequate (Adequate); Schistocytes None Seen (NORMAL); Total Cells Counted 100
[2022-06-07] MEDS: SODIUM CHLORIDE 0.9% IV 1,000 ML 999 ML IV CONT ×2 (18:52→20:32)
[2022-06-07 19:11] LABS: Influenza A QL RT-PCR Negative (Negative); Influenza B QL RT-PCR Negative (Negative); SARS-CoV-2 RNA PCR Negative
[2022-06-07 19:15] LABS: Appearance Urine Slightly Cloudy (Clear); Bilirubin Urine Negative (Negative); Blood Urine 3+ (Negative); Color Urine Yellow (Yellow); Glucose Urine UA Negative (Negative); Ketones Urine Negative (Negative); Leukocyte Esterase Ur 1+ LEU/UL (Negative); Nitrate Urine Negative (Negative); Protein Urine 1+ mg/dL (Negative); Specific Grav Ur >= 1.030 (1.001-1.035); Urobilinogen Urine 0.2 mg/dL (<2.0)
[2022-06-07 19:20] LABS: Bacteria Urine Trace /hpf; Mucus Urine Few /lpf; RBC Urine >75 /hpf (0-2); Squamous Epithelial Cell Urine Moderate /hpf (Few)
[2022-06-07 19:21] LABS: Add Urine Microscopic? YES
[2022-06-07] MEDS: CEPHALEXIN 500 MG CAPSULE PO (22:08)
== END 2022-06-07 22:15 | disposition home or self-care (01) ==
PROVIDERS: Emergency Medicine; Emergency Provider Physician Assistant; PCP Internal Medicine
DX: N30.01 Acute cystitis with hematuria (principal); I95.1 Orthostatic hypotension; R50.9 Fever, unspecified; Z20.822 Contact with and (suspected) exposure to COVID-19; M19.90 Unspecified osteoarthritis, unspecified site; I10 Essential (primary) hypertension
CPT/HCPCS: 36415; 70450; 71046; 80053; 81001; 85025; 87077; 87086; 87186; 87636; 93005; 96360; 96361; 99284; A9270; J7030

== ENCOUNTER 2022-10-30 15:56 | Outpatient (CLI) | payer OTHER, SELFPAY ==
--- NOTE | ~2022-10-30 | CT_ITS ---
EXAMINATION:CT diagnostic chest w con DATE: 10/30/2022 16:29 INDICATION: Lung cancer. TECHNIQUE: Computed tomography (CT) of the chest was performed with 75 mL Omnipaque 350 intravenous c ontrast. Automated exposure control and iterative reconstruction technique were employed. The dose-le ngth product (DLP) was 164.46 mGy-cm. COMPARISON: Chest CT 04/10/2022 FINDINGS: There are changes of right upper lobectomy. There is moderate emphysema. There is mild scar ring at left lung apex. There is chronic peripheral septal thickening in the inferior lungs with elisabeth ycombing. A calcified left lung nodule and calcified left hilar and mediastinal lymph nodes are consi stent with old granulomatous disease. No pleural effusion. The heart size is normal. No pericardial e ffusion. There are coronary artery calcifications. Calcifications in the spleen are consistent with o ld granulomatous disease. There is severe cervical spondylosis and mild thoracic spondylosis. IMPRESSION: 1. No evidence of metastatic disease. 2. Right upper lobectomy. 3. Moderate emphysema and mild chronic interstitial lung disease in a pattern of usual interstitial p neumonia (UIP). Reviewed, dictated and finalized at location E. IMPRESSION: 1. No evidence of metastatic disease. 2. Right upper lobectomy. 3. Moderate emphysema and mild chronic interstitial lung disease in a pattern o f usual interstitial pneumonia (UIP).
[2022-10-30 16:21] LABS: Estimated Glomerular Filt Rate 54
== END 2022-10-30 15:57 | disposition home or self-care (01) ==
PROVIDERS: PCP Family Medicine; Visit Provider Nurse Practitioner Acute Care
DX: Z85.118 Personal history of other malignant neoplasm of bronchus and lung (principal); J43.9 Emphysema, unspecified; J84.9 Interstitial pulmonary disease, unspecified
CPT/HCPCS: 71260; Q9967

== ENCOUNTER 2022-11-07 10:42 | Outpatient (CLI) | payer OTHER, SELFPAY ==
--- NOTE | ~2022-11-07 | PE_ITS ---
EXAMINATION: PET skull to mid thigh DATE: 11/07/2022 12:43 INDICATION: Malignant neoplasm of lung. Lung nodule. TECHNIQUE: Blood glucose level was 114 mg/dL. 9.596 mCi of 18-fluorodeoxyglucose (18-FDG) was adminis tered i.v. Low dose computed tomography (CT) images were acquired from the base of the brain to the p roximal thighs for attenuation correction and anatomic localization. Automated exposure control was e mployed. Dose-length product (DLP) was 488 mGy-cm. Positron emission tomography (PET) images were acq uired in the same distribution. COMPARISON: PET/CT 09/08/2021, chest CT 10/30/2022, neck CT 07/22/2021, chest CT 04/10/22 FINDINGS: Head/neck: There is a stable 2.2 cm mass in right parotid gland with maximum SUV of 8.0. Biopsy on demonstrated Warthin tumor. There are no pathologically enlarged lymph nodes. Chest: There are changes of right upper lobectomy. There is moderate emphysema. There are chronic sep kole thickening in the lungs with an inferior predominance with mildly increased activity. There is a 1.4 cm nodule in right lower lobe with maximum SUV of 8.3. There is 11 x 12 mm right hilar lymph node with maximum SUV of 4.4. A calcified left lung nodule and calcified left hilar and mediastinal lymph nodes are consistent with old granulomatous disease. No pleural effusion. Cardiomegaly is noted. The re are coronary artery calcifications. No pericardial effusion. No pleural effusion. Abdomen/pelvis/proximal thighs: The liver and gallbladder are normal. Calcifications in the spleen ar e consistent with old granulomatous disease. The pancreas, adrenal glands, and kidneys are normal. Th ere is diverticulosis of the colon without evidence of diverticulitis. There are no dilated loops of bowel. There are no pathologically enlarged lymph nodes. There is no free intraperitoneal fluid. Ther e is calcified atherosclerosis of the aorta and many of the other arteries. There is no osseous jose l gnancy. IMPRESSION: 1. 1.4 cm nodule in right lung lower lobe with increased activity, consistent with primary bronchogen ic carcinoma versus metastatic disease. 2. Mildly enlarged right hilar lymph node with increased activity suspicious for metastatic disease. 3. Right upper lobectomy. 4. Moderate emphysema and mild chronic interstitial lung disease in a pattern of usual interstitial p neumonia (UIP). 5. 2.2 cm mass in right parotid gland with increased activity, stable from 07/22/2021, consistent with biopsy-proved Warthin tumor. Reviewed, dictated and finalized at location A. IMPRESSION: 1. 1.4 cm nodule in right lung lower lobe with increased activity, consistent w ith primary bronchogenic carcinoma versus metastatic disease. 2. Mildly enlarged right hilar lymph node with increased activity suspicious fo r metastatic disease. 3. Right upper lobectomy. 4. Moderate emphysema and mild chronic interstitial lung disease in a pattern o f usual interstitial pneumonia (UIP). 5. 2.2 cm mass in right parotid gland with increased activity, stable from 2021, consistent with biopsy-proved Warthin tumor.
[2022-11-07 11:08] LABS: Glucose Point of Care 114 mg/dl (65-105)
== END 2022-11-07 10:43 | disposition home or self-care (01) ==
PROVIDERS: PCP Family Medicine
DX: C34.90 Malignant neoplasm of unspecified part of unspecified bronchus or lung (principal); J43.9 Emphysema, unspecified; R91.1 Solitary pulmonary nodule; K11.8 Other diseases of salivary glands; Z90.2 Acquired absence of lung [part of]
CPT/HCPCS: 78815; A9552

== ENCOUNTER 2023-01-26 12:42 | Outpatient (CLI) | payer OTHER, SELFPAY ==
[2023-01-26 13:55] LABS: Basophils Absolute Auto 0.1 K/mm3 (0.0-0.1); Basophils Percent Auto 0.9 % (0.2-1.2); Eosinophils Absolute Auto 0.2 K/mm3 (0-0.3); Eosinophils Percent Auto 1.8 % (0-4.4); Hematocrit 37.9 % (37.0-47.0); Hemoglobin 12.5 g/dL (12.0-15.0); Immature Granulocyte Absolute 0.08 K/mm3 (0.00-0.031); Lymphocytes Absolute Auto 1.01 K/mm3 (0.9-3.2); Lymphocytes Percent Auto 12.3 % (18.3-44.2); Mean Corpuscular Hemoglobin 34.5 pg (26-34); Mean Corpuscular Volume 104.7 fl (80-100); Mean Platelet Volume 10.2 fl (7.4-10.4); Monocytes Absolute Auto 1.2 K/mm3 (0.1-0.6); Monocytes Percent Auto 14.5 % (2.6-8.5); Neutrophils Absolute Auto 5.7 K/mm3 (1.3-6.7); Neutrophils Percent Auto 69.5 % (45.5-73.1); Platelet Count Result 262 k/mm3 (150-375); Red Blood Count 3.62 M/mm3 (4.2-5.4); Red Cell Distribution Width 14.5 % (11.5-14.5); White Blood Count 8.2 K/mm3 (4.5-10.0)
[2023-01-26 14:20] LABS: Rheumatoid Factor 107.8 IU/ML (<12)
[2023-01-26 14:21] LABS: CRP 2.7 mg/dL (<1.0); Creatine Kinase 66 U/L (30-135)
[2023-01-26 15:00] LABS: Erythrocyte Sedimentation Rate 54 mm/hr (0-20)
[2023-01-30 17:38] LABS: ANA Cascade Screen Negative (Negative)
[2023-01-30 21:33] LABS: Anti Cyclic Citrullinated Pept >250 Units (<20)
[2023-01-31 04:42] LABS: Aldolase 3.9 U/L (<=8.1)
[2023-02-01 10:27] LABS: ANCA Screen Negative (Negative)
[2023-02-05 11:36] LABS: JO-1 AB <11 SI (<11); MI-2 Alpha Ab <11 SI (<11); MI-2 Beta Ab <11 SI (<11); NXP-2 AB <11 SI (<11); TIF1 Gamma Ab <11 SI (<11)
== END 2023-01-26 12:43 | disposition home or self-care (01) ==
PROVIDERS: PCP Nurse Practitioner; Visit Provider Internal Medicine Pulmonary Disease
DX: J84.9 Interstitial pulmonary disease, unspecified (principal); R91.1 Solitary pulmonary nodule; J44.9 Chronic obstructive pulmonary disease, unspecified
CPT/HCPCS: 36415; 82085; 82550; 84182; 85025; 85652; 86036; 86038; 86140; 86200; 86331; 86430; 86606; 86609

== ENCOUNTER 2023-02-19 07:32 | Outpatient (CLI) | payer OTHER, SELFPAY ==
--- NOTE | 2023-02-19 07:38 | ECHO_ITS ---
Patient Info Name: Loida Guillory Age: 72 years : 1950 Gender: Female Ht: 64 in Wt: 142 lbs BSA: 1.72 m2 HR: 76 bpm BP: 158 / 88 mmHg Technical Quality: Fair Exam Date: 02/19/2023 8:00 AM Exam Location: [facility] Patient Status: Outpatient Admit Date: 02/19/2023 Staff Ordering Physician: Galen Mathias MD Chisel Grinder: Esha Garner RDCS Attending Provider: Galen Mathias MD Referring Physician: Stew THOMAS; Exam Type: CA echo doppler color flow Study Info Indications R06.02 - Shortness of breath Complete two-dimensional, color flow and Doppler transthoracic echocardiogram is performed. Summary 1. Complete two-dimensional, color flow and Doppler transthoracic echocardiogram is performed. 2. Left ventricular chamber dimension is normal. 3. Ventricular septum is sigmoid shaped. No LVOT obstruction. 4. Left ventricular systolic function is normal, estimated at 55-60%. 5. The left ventricular diastolic function is grade I diastolic dysfunction. 6. E/e' 11 is mildly elevated. 7. There is mild aortic valve sclerosis. 8. There is trace aortic valve regurgitation. 9. There is mild mitral valve regurgitation. 10. Mild pulmonary hypertension, estimated pulmonary arterial systolic pressure is 45 mmHg. Left Ventricle E/e' 11 is mildly elevated. Ventricular septum is sigmoid shaped. No LVOT obstruction. Left ventricular chamber dimension is normal. Left ventricular systolic function is normal, estimated at 55-60%. The left ventricular diastolic function is grade I diastolic dysfunction. Right Ventricle Right ventricular chamber dimension is normal. Right ventricular systolic function is normal. Left Atria Left atrial chamber dimension is normal. Right Atria Right atrial chamber dimension is normal. Aortic Valve The aortic valve is trileaflet. There is mild aortic valve sclerosis. There is no aortic valve stenosis. There is trace aortic valve regurgitation. Pulmonic Valve There is no pulmonic regurgitation. Mitral Valve There is no mitral valve stenosis. There is mild mitral valve regurgitation. Tricuspid Valve There is no tricuspid valve regurgitation. Mild pulmonary hypertension, estimated pulmonary arterial systolic pressure is 45 mmHg. Pericardium/Pleural There is no pericardial effusion. Inferior Vena Cava Normal inferior vena cava with >50% collapse upon inspiration consistent with normal right atrial pressure, 5 mmHg. Aorta The aortic root size at the sinus of Valsalva is normal. Left Ventricular Outflow Tract Name Value Normal LVOT 2D LVOT Diameter 1.9 cm LVOT Doppler LVOT Peak Gradient 5 mmHg LVOT Mean Gradient 3 mmHg LVOT VTI 25 cm LVOT VTI/AV VTI Ratio 0.8 LVOT Stroke Volume 73 ml LVOT CO 5.1 l/min LVOT CI 3.0 l/min/m2 Pulmonic Valve Name Value Normal
[2023-02-19 08:44] VITALS: PULSE 103; PULSE 78; O2SAT 84; O2SAT 90
[2023-02-19 08:45] VITALS: PULSE 108; O2SAT 86
[2023-02-19 08:46] VITALS: PULSE 108; O2SAT 88
[2023-02-19 08:49] VITALS: PULSE 112; O2SAT 90
--- NOTE | 2023-02-19 09:19 | HOMEO2EVAL ---
Evaluation was performed at [facility] Home Oxygen Evaluation RC: Home Oxygen (O2) Evaluation Start: 02/19/23 09:16 Freq: Status: Active Protocol: RPE Activity Type Activity Date Activity User E-sign Co-sign Detail Recorded Client Recorded Date Recorded By Document 02/19/23 08:44 KRM [email or web address] 02/19/23 09:19 KRM Document 02/19/23 08:44 KRM [email or web address] 02/19/23 09:19 KRM Document 02/19/23 08:45 KRM [email or web address] 02/19/23 09:19 KRM Document 02/19/23 08:46 KRM [email or web address] 02/19/23 09:19 KRM Document 02/19/23 08:49 KRM [email or web address] 02/19/23 09:19 KRM 02/19/23 02/19/23 02/19/23 08:44 08:44 08:45 Home O2 Evaluation [Oxygen] -Test Phase Resting Exercise Exercise -Oxygen Delivery Room Air Room Air Nasal Cannula -Oxygen Flow Rate (L/min) 1 [Pulse Oximetry] -Pulse Oximetry (90-100 %) 90 84 L 86 L [Pulse Rate] -Pulse Rate (60-100 beats/min) 78 103 H 108 H [Evaluation] -Activity Tolerance Fair Fair [Exercise] -Ambulation Distance (feet) -Ambulation Distance (meters) [Comments] -Home Oxygen Evaluation Comments [Charges] -Treatment Charges 02/19/23 02/19/23 08:46 08:49 Home O2 Evaluation [Oxygen] -Test Phase Exercise Exercise -Oxygen Delivery Nasal Cannula Nasal Cannula -Oxygen Flow Rate (L/min) 2 3 [Pulse Oximetry] -Pulse Oximetry (90-100 %) 88 L 90 [Pulse Rate] -Pulse Rate (60-100 beats/min) 108 H 112 H [Evaluation] -Activity Tolerance Fair Fair [Exercise] -Ambulation Distance (feet) 300 -Ambulation Distance (meters) 91.43 [Comments] -Home Oxygen Evaluation Comments 3lpm with activity. Pt. request POC. [Charges] -Treatment Charges O2 Evaluation - Outpatient
== END 2023-02-19 07:33 | disposition home or self-care (01) ==
PROVIDERS: PCP Nurse Practitioner; Visit Provider Internal Medicine Pulmonary Disease
DX: R93.1 Abnormal findings on diagnostic imaging of heart and coronary circulation (principal); I35.8 Other nonrheumatic aortic valve disorders; I34.0 Nonrheumatic mitral (valve) insufficiency; I35.1 Nonrheumatic aortic (valve) insufficiency; R06.02 Shortness of breath
CPT/HCPCS: 93306; 94618

== ENCOUNTER 2023-05-23 08:18 | Outpatient (CLI) | payer OTHER, SELFPAY ==
--- NOTE | 2023-05-23 12:19 | WPDPFTINT ---
PFT Procedure Performed PFT Procedure Performed Spirometry with Pre/Post Bronchodilator Plethysmography (Lung Vol) Diffusing Cap (DLCO) Flow Vol Loop PFT Interpretation This is a pulmonary function test with pre and post-bronchodilator spirometry, plethysmography and diffusing capacity. The test was performed and results interpreted in accordance with the 2019 and 2005 ATS/ERS Task Force guidelines respectively using the Global Lung Function Initiative-2012 reference equations. Patient demonstrated good effort and cooperation. Reproducibility criteria were met. The quality of the pre bronchodilator spirometry maneuver was Grade A and post bronchodilator spirometry maneuver was Grade A. Findings: Spirometry: There is decreased maximal expiratory airflow with a mildly concave expiratory flow tracing. The contour the inspiratory flow tracing is normal. The pre bronchodilator FVC is 2.18 L, 80% predicted. The pre bronchodilator FEV1 is 1.31 L, 62% predicted. The pre bronchodilator FEV1: FVC ratio 60%. The post bronchodilator FVC is 2.22 L, representing a 2% increase. The post bronchodilator FEV1 is 1.35 L, representing a 3% increase. The post bronchodilator FEV1: FVC ratio is 61%. Plethysmography: The total lung capacity is 3.62 L, 71% predicted. The functional residual capacity is 2.30 L, 79% predicted. The residual volume is 1.44 L, 63% predicted. Diffusing capacity: The diffusing capacity unadjusted for hemoglobin and carboxyhemoglobin is 6.0, 30% predicted. The diffusing capacity adjusted for alveolar volume is 2.01, 48% predicted. Impression: There is a combined obstructive and restrictive ventilatory abnormality. There are no guidelines to assign the severity of obstruction and restriction with a combined abnormality. In my opinion, given the mildly concave expiratory flow tracing, mildly decreased FEV1: FVC ratio and mild restrictive abnormality I would state there is a mild obstructive abnormality and a mild restrictive abnormality resulting in a moderate decrease in the FEV1. There is no significant improvement after inhaling a single dose of albuterol. The diffusing capacity unadjusted for hemoglobin and carboxyhemoglobin is severely decreased and remains moderately decreased when adjusted for alveolar volume. There are no prior studies for comparison
== END 2023-05-23 08:19 | disposition home or self-care (01) ==
PROVIDERS: PCP Nurse Practitioner; Visit Provider Internal Medicine Pulmonary Disease
DX: J44.9 Chronic obstructive pulmonary disease, unspecified (principal); C34.90 Malignant neoplasm of unspecified part of unspecified bronchus or lung
CPT/HCPCS: 94060; 94726; 94729

== ENCOUNTER 2023-06-19 19:58 | Emergency (ER) | payer OTHER, SELFPAY ==
[2023-06-19] VITALS (8 sets, daily range): BP systolic 103–149; BP diastolic 58–78; PULSE 70–94; RESP 16–26; TEMP 36.4–36.7; O2SAT 92–98
--- NOTE | ~2023-06-19 | XR_ITS ---
EXAMINATION: XR chest 1V portable Exam Date/Time: 06/19/2023 22:06 LINE INSTALLER REPAIRER HISTORY: cough, dyspnea, hx lobectomy right side lung Comparison: 06/07/2022. RESULT: Lines, tubes, and devices: Right upper lung suture material. Lungs and pleura: Subsegmental right basilar airspace disease. Graded opacity in the right lung. Mod erate right costophrenic angle blunting. Cardiomediastinal silhouette: Stable. Hilar node calcification. Other: No acute osseous or upper abdominal finding. IMPRESSION: Subsegmental right basilar atelectasis/consolidation. Moderate right pleural effusion. Reviewed, dictated and finalized at location K. INSTALLER REPAIRER IMPRESSION: Subsegmental right basilar atelectasis/consolidation. Moderate right pleural ef fusion.
--- NOTE | ~2023-06-19 | CT_ITS ---
EXAMINATION: CTA chest PE protocol DATE: 06/19/2023 23:32 INDICATION: dyspnea, elevated d dimer TECHNIQUE: Computed tomography angiography (CTA) of the chest was performed with 100 mL Omnipaque-350 intravenous contrast timed to evaluate the pulmonary arteries. Coronal maximum intensity projection 3D-reconstructions were created by the technologist. The dose-length product (DLP) was 195.68 mGy-cm. Automated exposure control and iterative reconstruction technique were employed. COMPARISON: 10/30/2022; x-ray chest 06/19/2023. FINDINGS: Lung parenchyma and airways: Moderate emphysema. 11 mm irregular, slightly spiculated left upper lobe pulmonary nodule. Peripheral and bronchovascular consolidation in the right lower lobe. Bibasilar sc arring and atelectasis. Status post right upper lobe pneumonectomy. The airways are clear. Chronic pe ripheral and basilar changes. Pleura: Small volume simple right pleural fluid collection. Thoracic inlet, axillae and chest wall: Unremarkable. Thoracic aorta: No significant calcification or dilation. Mediastinum: Small hiatal hernia. Heart and pericardium: Normal. Coronary artery calcifications: Moderate. Upper abdomen: No significant finding. Bones: No acute osseous finding. Pulmonary arteries: Study quality: Adequate. No pulmonary emboli detected. IMPRESSION: No CT evidence of acute pulmonary embolus. Peripheral right lower lobe opacities likely represent infection, such as bronchopneumonia. Small right pleural effusion. 11 mm left upper lobe pulmonary nodule, recommend follow-up CT at 3 months, PET/CT, or tissue samplin g. Reviewed, dictated and finalized at location K. ATION OPERATOR IMPRESSION: No CT evidence of acute pulmonary embolus. Peripheral right lower lobe opacities likely represent infection, such as bronc hopneumonia. Small right pleural effusion. 11 mm left upper lobe pulmonary nodule, recommend follow-up CT at 3 months, PET /CT, or tissue sampling.
[2023-06-19 21:06] LABS: Influenza A QL RT-PCR Negative (Negative); Influenza B QL RT-PCR Negative (Negative); RSV RNA, RT-PCR Negative (Negative); SARS-CoV-2 RNA PCR Negative (Negative)
--- NOTE | 2023-06-19 21:48 | ECG_ITS ---
Measurements Intervals [place] Rate: 67 P: 55 [place]: 192 QRS: 8 QRSD: 96 T: 45 QT: 393 QTc: 417 Interpretive Statements SINUS RHYTHM MINIMAL ST DEPRESSION [0.025+ mV ST DEPRESSION] COMPARED TO ECG 06/07/2022 17:58:42 NO SIGNIFICANT CHANGES Electronically Signed On 06-20-2023 16:27:05 COLLAR RUNNER by Nadeem Salazar M.D.
--- NOTE | 2023-06-19 21:49 | ED.GENADULT ---
HPI - General Adult General Chief complaint: Upper Respiratory Infection Stated complaint: lightheadedness, congestion Time Seen by Provider: 06/19/23 21:37 Source: patient Mode of arrival: ambulatory Limitations: no limitations History of Present Illness HPI narrative: This is a 73-year-old female with PMH of along cancer, on chronic oxygen who presents to the ED for chief complaint of lightheadedness and dyspnea for the past couple days. Patient reports that she gets quite lightheaded whenever she stands up and takes quite some time to resolve. Patient reports that she is on 2 L at rest and 3 L with exertion and has not had to increase her oxygen. She states she gets short of breath upon exertion and takes a little longer to recover. She also reports some nasal congestion and mild cough as well. Denies chest pain, fevers, chills, productive cough, sore throat, abdominal pain, nausea, vomiting, back pain. Related Data Home Medications Medication Instructions Recorded Confirmed aspirin 81 mg tablet,delayed 81 mg PO DAILY 06/17/19 05/31/23 release (Adult Low Dose Aspirin) omega-3 fatty acids 1,000 mg 1,000 mg PO DAILY 06/17/19 05/31/23 capsule (Fish Oil Concentrate) calcium carbonate 600 mg-vitamin 1 tablet PO DAILY 07/13/21 05/31/23 D3 20 mcg (800 unit) tablet Allergies Allergy/AdvReac Type Severity Reaction Status Date / Time amoxicillin Allergy Mild Diarrhea Verified 05/31/23 09:20 omeprazole Allergy Unknown rash Verified 05/31/23 09:20 Review of Systems Review of Systems: All systems as dictated in 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 Tumor of soft tissue of neck (~2020) Warthin's tumor Surgical History Surgical History History of lobectomy of lung Hx of cataract surgery Family History Family History Mother Cerebrovascular accident Kidney disease Sibling Family history of malignant neoplasm Grandparent Hypertension Heart disease Social History Social History Smoking packs per day: 1 Smoking cigarettes per day: 20.0 Years smoked: 40 Smoking pack-years: 40.00 Smoking status: Former smoker Smoking end date: 04/23/15 Alcohol intake: never Substance use: never Lack of Transportation: No Lack of Food: Never True Current Housing: I Have Housing Concerned About Future Housing: No Difficulty Paying Gas/Electric Bills: No Difficulty Paying for Meds: No Currently Unemployed: No Education: High School Diploma/GED Difficulty w/ Childcare or Family Care: No Exam Narrative: GENERAL: Well-appearing, well-nourished, and in no acute distress. HEAD: Normocephalic, atraumatic. EYES: PERRLA and EOMI. ENT: Nares clear, no rhinorrhea or epistaxis. Mucous membranes moist. Oropharynx without tonsillar hypertrophy exudate or other lesions. NECK: Supple. No adenopathy or masses. CHEST: No respiratory distress. Clear to auscultation. No wheezes rales or rhonchi. 98% on 1 L HEART: Regular rate and rhythm. No murmur heard. Normal peripheral pulses. ABDOMEN: Soft, nontender, nondistended, normal active bowel sounds. MSK: Normal range of motion. No edema. SKIN: Warm, dry, no rash. NEURO: Alert and oriented x3. No focal deficits. PSYCH: Normal mood and affect. Course Vital Signs Vital signs: Vital Signs Temperature 97.5 F L 06/19/23 20:16 Pulse Rate 79 06/19/23 20:16 Respiratory Rate 26 H 06/19/23 20:16 Blood Pressure 117/60 06/19/23 20:16 Pulse Oximet
[2023-06-19 22:19] LABS: Basophils Absolute Auto 0.1 K/mm3 (0.0-0.1); Basophils Percent Auto 0.5 % (0.2-1.2); Eosinophils Absolute Auto 0.1 K/mm3 (0-0.3); Eosinophils Percent Auto 0.7 % (0-4.4); Hematocrit 35.9 % (37.0-47.0); Hemoglobin 11.3 g/dL (12.0-15.0); Immature Granulocyte Absolute 0.09 K/mm3 (0.00-0.031); Immature Granulocyte Percent A 0.5 % (0-0.5); Lymphocytes Percent Auto 10.4 % (18.3-44.2); Mean Corpuscular HGB Conc 31.5 g/dl (32-36); Mean Corpuscular Hemoglobin 31.7 pg (26-34); Mean Corpuscular Volume 100.8 fl (80-100); Mean Platelet Volume 9.3 fl (7.4-10.4); Monocytes Absolute Auto 1.5 K/mm3 (0.1-0.6); Monocytes Percent Auto 9.2 % (2.6-8.5); Neutrophils Absolute Auto 12.9 K/mm3 (1.3-6.7); Neutrophils Percent Auto 78.7 % (45.5-73.1); Platelet Count Result 300 k/mm3 (150-375); Red Blood Count 3.56 M/mm3 (4.2-5.4); Red Cell Distribution Width 14.9 % (11.5-14.5); White Blood Count 16.4 K/mm3 (4.5-10.0)
[2023-06-19 22:29] LABS: Alanine Aminotransferase 16 U/L (6-35); Albumin Level 3.8 g/dL (3.5-5.1); Alkaline Phosphatase 68 U/L (38-126); Anion Gap 9 mmol/L (8-16); Aspartate Amino Transferase 25 U/L (14-36); Bilirubin,Total 0.6 mg/dL (0.2-1.3); Blood Urea Nitrogen 17 mg/dL (7-17); Calcium 9.1 mg/dL (8.4-10.2); Carbon Dioxide 25 mmol/L (22-30); Chloride 99 mmol/L (98-107); Estimated CRCL calculation 46 ml/min; Estimated Glomerular Filt Rate > 60; Glucose 105 mg/dL (65-110); Potassium 3.5 mmol/L (3.4-5.0); Sodium 133 mmol/L (137-145)
[2023-06-19] MEDS: SODIUM CHLORIDE 0.9% IV 1,000 ML 999 ML IV CONT (22:36)
[2023-06-19 22:40] LABS: Troponin I < 0.012 ng/mL (0.000-0.034)
[2023-06-19 22:50] LABS: D Dimer 1.25 ug/mL (<0.48)
[2023-06-20] MEDS: AZITHROMYCIN 500 MG/NS 250 ML 500 MG/250 ML BAG 250 MG IVPB (00:05)
[2023-06-20 01:11] VITALS: BP 122/75; PULSE 78; RESP 16; TEMP 37.1; O2SAT 100
== END 2023-06-20 01:12 | disposition home or self-care (01) ==
PROVIDERS: Emergency Medicine; Emergency Provider Physician Assistant; PCP Nurse Practitioner
DX: J18.9 Pneumonia, unspecified organism (principal); Z20.822 Contact with and (suspected) exposure to COVID-19; J90 Pleural effusion, not elsewhere classified; C34.90 Malignant neoplasm of unspecified part of unspecified bronchus or lung; I10 Essential (primary) hypertension; M05.79 Rheumatoid arthritis with rheumatoid factor of multiple sites without organ or systems involvement; M19.90 Unspecified osteoarthritis, unspecified site; Z85.44 Personal history of malignant neoplasm of other female genital organs; Z87.891 Personal history of nicotine dependence; Z92.3 Personal history of irradiation; Z90.2 Acquired absence of lung [part of]; Z79.82 Long term (current) use of aspirin
CPT/HCPCS: 36415; 71045; 71275; 80053; 84484; 85025; 85380; 87637; 93005; 96361; 96365; 96367; 99284; J0456; J0696; J7030; Q9967

== ENCOUNTER 2023-08-03 10:07 | Outpatient (CLI) | payer OTHER, SELFPAY ==
--- NOTE | ~2023-08-03 | MM_ITS ---
EXAMINATION: MM screening renee BI w [facility] HISTORY: Screening TECHNIQUE: Craniocaudal and mediolateral oblique 3-D tomosynthesis images were obtained and synthetic 2-D images were generated. CAD analysis was submitted and interpreted. COMPARISON: Comparison to multiple prior studies sequentially, with oldest reviewed study dated 01/13. BREAST PARENCHYMAL COMPOSITION: Not dense: There are scattered areas of fibroglandular density. FINDINGS: There is no evidence of suspicious mass, calcification, or architectural distortion to sugg est malignancy in either breast. There has been no suspicious interval change. IMPRESSION: 1. No mammographic evidence of malignancy. 2. Recommend routine screening mammography in one year. BI-RADS Category 1: Negative Reviewed, dictated and finalized at location A.
== END 2023-08-03 10:08 | disposition home or self-care (01) ==
LOC: ANHIMG 10:09
PROVIDERS: PCP Nurse Practitioner; Visit Provider Nurse Practitioner
DX: Z12.31 Encounter for screening mammogram for malignant neoplasm of breast (principal)
CPT/HCPCS: 77063; 77067

== ENCOUNTER 2024-04-25 16:22 | Inpatient (IN) | payer OTHER, SELFPAY ==
--- NOTE | ~2024-04-25 | XR_ITS ---
EXAMINATION: XR chest 2V DATE: 04/25/2024 16:54 INDICATION: Cough. No lung cancer. TECHNIQUE: PA and lateral views of the chest were obtained. COMPARISON: Chest radiograph and CT dated 06/19/23 FINDINGS: Postoperative changes of prior right upper lobectomy with volume loss in the right hemithorax and rig ht perihilar and superior paramediastinal suture line. Airspace opacities in the left perihilar regio n and bilateral lower lung zones, right greater than left. No pneumothorax or definitive pleural effu zulema. Calcified left hilar lymph nodes consistent with old granulomatous disease. Mild cardiomegaly. Mild lumbar dextroscoliosis with moderate spondylosis. IMPRESSION: 1. Opacities in the left perihilar region and bilateral lower lung zones which could represent atelec tasis or pneumonia. 2. Cardiomegaly. 3. Status post right upper lobectomy. Reviewed, dictated and finalized at location B. GRATED LOGISTICS PROGRAMS DIRECTOR IMPRESSION: 1. Opacities in the left perihilar region and bilateral lower lung zones which could represent atelectasis or pneumonia. 2. Cardiomegaly. 3. Status post right upper lobectomy.
--- NOTE | ~2024-04-25 | CT_ITS ---
EXAMINATION: CTA chest PE protocol DATE: 04/26/2024 04:21 INDICATION: Shortness of breath TECHNIQUE: Computed tomography angiography (CTA) of the chest was performed with 100 mL Omnipaque-350 intravenous contrast timed to evaluate the pulmonary arteries. Coronal maximum intensity projection 3D-reconstructions were created by the technologist. Automated exposure control and iterative reconst ruction technique were employed. Exam dose: 159.86 mGy-cm total exam DLP. COMPARISON: None. FINDINGS: There is diagnostic contrast enhancement of the pulmonary arteries and no evidence of pulmo nary embolism. Cardiomegaly. Prominent coronary artery calcification. Aortic and great vessel calcification. Mild po sterior aortic arch aneurysm measuring up to approximately 3.1 cm diameter. No pericardial or pleural effusion. Prominent emphysematous changes of the lungs. There likely chronic interstitial fibrotic changes including prominent interlobular septal soft tissu e thickening and bronchiectasis and/or honeycombing involving particularly the lung bases. There is mild discoid atelectasis at the lingula. There are patchy areas of consolidation and/or mass densities of the left lower lobe and to minimal extent left upper lobe. Recommend treatment for pneu monia if clinical findings are consistent with pneumonia, with follow-up CT imaging to exclude lung m ass, particularly at the left lower lobe. Adrenal glands are unremarkable. Calcified splenic granulomas. Anterolateral left fifth and anterior sixth old ununited rib fractures. IMPRESSION: No evidence of pulmonary embolism Patchy probable consolidation of the left lower lobe suggesting pneumonia. Recommend correlation with clinical symptoms and CT follow-up after appropriate treatment to exclude any underlying pulmonary m ass lesion Left hilar mild adenopathy which may be reactive; as mentioned, follow-up CT is encouraged to exclude lung malignancy and metastatic adenopathy Emphysema Chronic interstitial fibrotic changes involving particularly the lung bases Minimal posterior aortic arch aneurysm Cardiomegaly Reviewed, dictated and finalized at [facility]. Reviewed, dictated and finalized at location A. KING PRESS OPERATOR IMPRESSION: No evidence of pulmonary embolism Patchy probable consolidation of the left lower lobe suggesting pneumonia. Melquiades mmend correlation with clinical symptoms and CT follow-up after appropriate ale atment to exclude any underlying pulmonary mass lesion Left hilar mild adenopathy which may be reactive; as mentioned, follow-up CT is encouraged to exclude lung malignancy and metastatic adenopathy Emphysema Chronic interstitial fibrotic changes involving particularly the lung bases Minimal posterior aortic arch aneurysm Cardiomegaly
[2024-04-25 16:28] VITALS: BP 110/62; PULSE 88; RESP 22; TEMP 36.6; O2SAT 93
--- NOTE | 2024-04-25 16:29 | ECG_ITS ---
Test Date: 2024-04-25 17:05:29 Measurements Intervals [place] Rate: 82 P: 0 HI: 0 QRS: 24 QRSD: 86 T: 62 QT: 366 QTc: 429 Interpretive Statements SINUS RHYTHM WITH PACS No previous ECG available for comparison Electronically Signed On 04-29-2024 17:46:59 SUSTAINABLE AGRIC[employer]URE FACULTY by Nadeem Salazar M.D.
[2024-04-25 16:30] VITALS: O2SAT 92
--- NOTE | 2024-04-25 16:30 | ED.URI ---
HPI - URI/Sore Throat General Chief Complaint: Upper Respiratory Infection <Brigette Ayers PA-C - Last Filed: 04/25/24 16:32> Stated Complaint: cough, runny nose, SOB <Brigette Ayers PA-C - Last Filed: 04/25/24 16:32> Time Seen by Provider: 04/26/24 01:50 <Brigette Ayers PA-C - Last Filed: 04/25/24 16:32> Focused HPI: 73-year-old female with a history of hypertension, COPD, chronic hypoxic respiratory failure, squamous cell carcinoma of the lung presents to the emergency department for cough, congestion, rhinorrhea and increased oxygen demand since April 18. Patient reports a productive cough. States she attempted to contact her PCP but was unable to get hold of them so came to the ED. Denies fever. States she normally wears 2 L of oxygen p.r.n. but has had to use her O2 more frequently and has had increased up to 3-4 L. Her oncologist is with [facility]eth[facility]. She is not currently undergoing chemo or radiation. GENERAL: Well-appearing, well-nourished, and in no acute distress. HEAD: Normocephalic, atraumatic. CHEST: Decreased lung sounds throughout all lung arzola with minimal expiratory wheeze throughout, no rales or rhonchi. Patient satting 92% on 4 L nasal cannula HEART: Regular rate and rhythm.? NEURO: ?Alert and oriented x3. Patient screened in triage and initial orders placed.? ?Additional care and disposition to be based upon?diagnostic testing and treatment. <Brigette Ayers PA-C - Last Filed: 04/25/24 16:32> History of Present Illness HPI Narrative: Patient is a 73-year-old female who presents emergency department with chief complaint of shortness of breath. The patient has history of squamous cell carcinoma of the lung and reports that she has been having increasing shortness of breath has had to use her oxygen continuously at 3-4 L. Patient reports that she is having a biopsy the coming up and will probably start either radiation or chemo. Patient states that she has had no fever reports that she has had some wheezing present <Karsten Aranda MD - Last Filed: 04/26/24 03:06> Related Data Home Medications: Home Medications ?Medication ?Instructions ?Recorded ?Confirmed ?Last Taken ?Type aspirin 81 mg tablet,delayed 81 mg PO DAILY 06/17/19 01/03/24 08/12/21 History release (Adult Low Dose Aspirin) omega-3 fatty acids 1,000 mg 1,000 mg PO DAILY 06/17/19 01/03/24 Unknown History capsule (Fish Oil Concentrate) <Brigette Ayers PA-C - Last Filed: 04/25/24 16:32> Allergies/Adverse Reactions: Allergies Allergy/AdvReac Type Severity Reaction Status Date / Time amoxicillin Allergy Mild Diarrhea Verified 01/03/24 07:37 omeprazole Allergy Unknown rash Verified 01/03/24 07:37 levofloxacin AdvReac Intermediate Other Verified 01/03/24 07:37 <Brigette Ayers PA-C - Last Filed: 04/25/24 16:32> Review of Systems Review of Systems: A 10 system review of systems was completed on the patient and is negative except for what is stated in the HPI. Nursing and ancillary documentation was reviewed. 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) Cancer of vulva Hypertension Arthritis Epigastric abdominal pain Tumor of soft tissue of neck (~2019) <Brigette Ayers PA-C - Last Filed: 04/25/24 16:32> Surgical History Surgical History: Surgical History History of lobectomy of lung Hx of cataract surgery <Brigette Ayers PA-C - Last Filed: 04/25/24 16:32> Family History Family History: Family History Mother Cerebrovascular accident Kidney disease Sibling Family history of malignant neoplasm Grandparent Hypertension Heart disease <Brigette Ayers PA-C - Last Filed: 04/25/24 16:32> Social History Social History: Social History Smoking packs per day: 1 Smoking cigarettes per day: 20.0 Years smoked: 40 Smoking pack-years: 40.00 Smoking status: Former smoker Smoking end date: 04/23/15 Alcohol intake: never Substance use: never Lack of Transportation: No Lack of Food: Never True Current Housing: I Have Housing Concerned About Future Housing: No Difficulty Paying Gas/Electric Bills: No Difficulty Paying for Meds: No Currently Unemployed: No Education: High School Diploma/GED Difficulty w/ Childcare or Family Care: No <Brigette Ayers PA-C - Last Filed: 04/25/24 16:32> Exam Narrative: GENERAL: Well-appearing, well-nourished, and in no acute distress. HEAD: Normocephalic, atraumatic. EYES: PERRLA and EOMI. ENT: Nares clear, no rhinorrhea or epistaxis. Mucous membranes moist. NECK: Supple. CHEST: Clear to auscultation. No respiratory distress. HEART: Regular rate and rhythm. No murmur heard. Normal peripheral pulses. ABDOMEN: Soft, nontender, nondistended, normal active bowel sounds. EXTREMITIES: Normal range of motion. No edema. SKIN: Warm, dry, no rash. NEURO: No focal deficits. Alert and oriented x3. PSYCH: Normal mood and affect. <Karsten Aranda MD - Last Filed: 04/26/24 03:06> Course Vital Signs Vital signs: Vital Signs Temperature 36.6 C 04/25/24 16:28 Pulse Rate 88 04/25/24 16:28 Respiratory Rate 22 H 04/25/24 16:28 Blood Pressure 110/62 04/25/24 16:28 Pulse Oximetry 93 04/25/24 16:28 Temperature 37.2 C 04/26/24 01:37 Pulse Rate 91 04/26/24 01:37 Respiratory Rate 28 H 04/26/24 01:37 Blood Pressure 126/69 04/26/24 01:37 Pulse Oximetry 98 04/26/24 01:37 Oxygen Delivery Nasal Cannula 04/26/24 01:36 Oxygen Flow Rate 3 04/26/24 01:36 <Brigette Ayers PA-C - Last Filed: 04/25/24 16:32> Vital Signs Temperature 36.6 C 04/25/24 16:28 Pulse Rate 88 04/25/24 16:28 Respiratory Rate 22 H 04/25/24 16:28 Blood Pressure 110/62 04/25/24 16:28 Pulse Oximetry 93 04/25/24 16:28 Temperature 37.2 C 04/26/24 01:37 Pulse Rate 91 04/26/24 01:37 Respiratory Rate 28 H 04/26/24 01:37 Blood Pressure 126/69 04/26/24 01:37 Pulse Oximetry 98 04/26/24 01:37 Oxygen Delivery Nasal Cannula 04/26/24 01:36 Oxygen Flow Rate 3 04/26/24 01:36 <Karsten Aranda MD - Last Filed: 04/26/24 03:06> MDM - URI/Sore Throat Lab Data Result diagrams: 04/25/24 17:02 04/25/24 17:02 <Brigette Ayers PA-C - Last Filed: 04/25/24 16:32> Labs: Lab Results 04/25/24 Range/Units 17:02 WBC 13.4 H (4.5-10.0) K/mm3 RBC 3.90 L (4.2-5.4) M/mm3 Hgb 12.8 (12.0-15.0) g/dL Hct 39.9 (37.0-47.0) % MCV 102.3 H (80-100) fl MCH 32.8 (26-34) pg MCHC 32.1 (32-36) g/dl RDW 15.7 H (11.5-14.5) % Plt Count 210 (150-375) k/mm3 MPV 9.8 (7.4-10.4) fl Immature Gran % (Auto) 0.7 H (0-0.5) % Neut % (Auto) 77.8 H (45.5-73.1) % Lymph % (Auto) 7.7 L (18.3-44.2) % [place] % (Auto) 11.8 H (2.6-8.5) % Eos % (Auto) 1.5 (0-4.4) % Baso % (Auto) 0.5 (0.2-1.2) % Lymph # (Auto) 1.03 (0.9-3.2) K/mm3 [place] # (Auto) 1.6 H (0.1-0.6) K/mm3 Eos # (Auto) 0.2 (0-0.3) K/mm3 Baso # (Auto) 0.1 (0.0-0.1) K/mm3 Abs Immat Gran (auto) 0.09 H (0.00-0.031) K/mm3 Absolute Neuts (auto) 10.4 H (1.3-6.7) K/mm3 Absolute Nucleated RBC 0.000 (0.0-0.012) K/mm3 Nucleated RBC % 0.0 (0.0-0.2) % PT 14.5 (11.1-14.7) Seconds INR 1.1 APTT 26.2 (22.3-36.8) Seconds Sodium 139 (137-145) mmol/L Potassium 3.6 (3.4-5.0) mmol/L Chloride 105 (98-107) mmol/L Carbon Dioxide 28 (22-30) mmol/L Anion Gap 6 (4-12) mmol/L BUN 29 H D (7-17) mg/dL Creatinine 1.00 (0.7-1.0) mg/dL Estim Creat Clear Calc 36 ml/min Estimated GFR 54 L (59 - ) Glucose 108 (65-110) mg/dL Calcium 10.3 H (8.4-10.2) mg/dL Magnesium 1.7 (1.6-2.3) mg/dL Total Bilirubin 0.6 (0.2-1.3) mg/dL AST 26 (14-36) U/L ALT 16 (6-35) U/L Alkaline Phosphatase 67 (38-126) U/L NT-Pro-B Natriuret Pep 1920 H (19.9-100) pg/mL Total Protein 7.0 (6.3-8.2) g/dL Albumin 4.0 (3.5-5.1) g/dL Influenza A (RT-PCR) Negative (Negative) Influenza B (RT-PCR) Negative (Negative) RSV (RT-PCR) Negative (Negative) SARS-CoV-2 RNA (RT-PCR) Negative (Negative) <Brigette Ayers PA-C - Last Filed: 04/25/24 16:32> Lab Results 04/25/24 Range/Units 17:02 WBC 13.4 H (4.5-10.0) K/mm3 RBC 3.90 L (4.2-5.4) M/mm3 Hgb 12.8 (12.0-15.0) g/dL Hct 39.9 (37.0-47.0) % MCV 102.3 H (80-100) fl MCH 32.8 (26-34) pg MCHC 32.1 (32-36) g/dl RDW 15.7 H (11.5-14.5) % Plt Count 210 (150-375) k/mm3 MPV 9.8 (7.4-10.4) fl Immature Gran % (Auto) 0.7 H (0-0.5) % Neut % (Auto) 77.8 H (45.5-73.1) % Lymph % (Auto) 7.7 L (18.3-44.2) % [place] % (Auto) 11.8 H (2.6-8.5) % Eos % (Auto) 1.5 (0-4.4) % Baso % (Auto) 0.5 (0.2-1.2) % Lymph # (Auto) 1.03 (0.9-3.2) K/mm3 [place] # (Auto) 1.6 H (0.1-0.6) K/mm3 Eos # (Auto) 0.2 (0-0.3) K/mm3 Baso # (Auto) 0.1 (0.0-0.1) K/mm3 Abs Immat Gran (auto) 0.09 H (0.00-0.031) K/mm3 Absolute Neuts (auto) 10.4 H (1.3-6.7) K/mm3 Absolute Nucleated RBC 0.000 (0.0-0.012) K/mm3 Nucleated RBC % 0.0 (0.0-0.2) % PT 14.5 (11.1-14.7) Seconds INR 1.1 APTT 26.2 (22.3-36.8) Seconds Sodium 139 (137-145) mmol/L Potassium 3.6 (3.4-5.0) mmol/L Chloride 105 (98-107) mmol/L Carbon Dioxide 28 (22-30) mmol/L Anion Gap 6 (4-12) mmol/L BUN 29 H D (7-17) mg/dL Creatinine 1.00 (0.7-1.0) mg/dL Estim Creat Clear Calc 36 ml/min Estimated GFR 54 L (59 - ) Glucose 108 (65-110) mg/dL Calcium 10.3 H (8.4-10.2) mg/dL Magnesium 1.7 (1.6-2.3) mg/dL Total Bilirubin 0.6 (0.2-1.3) mg/dL AST 26 (14-36) U/L ALT 16 (6-35) U/L Alkaline Phosphatase 67 (38-126) U/L NT-Pro-B Natriuret Pep 1920 H (19.9-100) pg/mL Total Protein 7.0 (6.3-8.2) g/dL Albumin 4.0 (3.5-5.1) g/dL Influenza A (RT-PCR) Negative (Negative) Influenza B (RT-PCR) Negative (Negative) RSV (RT-PCR) Negative (Negative) SARS-CoV-2 RNA (RT-PCR) Negative (Negative) <Karsten Aranda MD - Last Filed: 04/26/24 03:06> ABG Data ABG results: 04/25/24 17:45 Puncture Site Right radial ABG pH 7.466 H ABG pCO2 33.1 L ABG pO2 112.5 H ABG PO2/FiO2 Ratio 4.02 ABG HCO3 23.3 ABG O2 Saturation 98.4 ABG O2 Content 16.8 ABG Base Excess 0.2 A-a Gradient 48.1 Oxyhemoglobin 97.7 Total Hemoglobin 12.1 O2 Delivery Device Nasal cannula O2 Liters/Min 2.0 FiO2 28 <Brigette Ayers PA-C - Last Filed: 04/25/24 16:32> 04/25/24 17:45 Puncture Site Right radial ABG pH 7.466 H ABG pCO2 33.1 L ABG pO2 112.5 H ABG PO2/FiO2 Ratio 4.02 ABG HCO3 23.3 ABG O2 Saturation 98.4 ABG O2 Content 16.8 ABG Base Excess 0.2 A-a Gradient 48.1 Oxyhemoglobin 97.7 Total Hemoglobin 12.1 O2 Delivery Device Nasal cannula O2 Liters/Min 2.0 FiO2 28 <Karsten Aranda MD - Last Filed: 04/26/24 03:06> Discharge Plan Discharge Patient Language: Vietnamese <Brigette Ayers PA-C - Last Filed: 04/25/24 16:32> Prescriptions: No Action omega-3 fatty acids [Fish Oil Concentrate] 1,000 mg capsule 1,000 mg PO DAILY aspirin [Adult Low Dose Aspirin] 81 mg tablet,delayed release (DR/EC) 81 mg PO DAILY methotrexate sodium 2.5 mg tablet See Rx Instructions .ROUTE .COMPLEX Qty: 60 1RF Rx Instructions: 5 tablets (12.5mg) PO once weekly; folic acid 1 mg tablet 1 mg PO DAILY Qty: 90 2RF albuterol sulfate 90 mcg/actuation HFA aerosol inhaler 2 inh inhalation Q4-6H PRN (Reason: shortness of breath or wheezing) Qty: 6.7 5RF Rx Instructions: 2 puffs as needed every 4-6 hours losartan 50 mg tablet See Rx Instructions .ROUTE .COMPLEX Qty: 90 1RF Dose Instruction: TAKE ONE TABLET BY MOUTH ONCE DAILY Rx Instructions: TAKE 1/2 TABLET BY MOUTH ONCE DAILY alendronate 70 mg tablet See Rx Instructions .ROUTE .COMPLEX Qty: 12 2RF Dose Instruction: TAKE 1 TABLET BY MOUTH WEEKLY Rx Instructions: TAKE 1 TABLET BY MOUTH WEEKLY amlodipine 10 mg tablet See Rx Instructions .ROUTE .COMPLEX Qty: 90 2RF Dose Instruction: TAKE ONE TABLET BY MOUTH ONCE DAILY Patient Comments: taking 5mg Rx Instructions: TAKE 1/2 TABLET BY MOUTH ONCE DAILY calcium carbonate-vitamin D3 600 mg-20 mcg (800 unit) tablet 1 tablet PO DAILY Qty: 90 2RF tiotropium-olodaterol 2.5-2.5 mcg/actuation mist 2 puff inhalation DAILY Qty: 4 6RF famotidine 20 mg tablet See Rx Instructions .ROUTE .COMPLEX Qty: 90 1RF Dose Instruction: TAKE 1 TABLET BY MOUTH EVERY DAY Rx Instructions: TAKE 1 TABLET BY MOUTH EVERY DAY <Brigette Ayers PA-C - Last Filed: 04/25/24 16:32> Follow-up/Referrals: Gabriele Adams, POLE TRUCK DRIVER [Primary Care Provider] - <Brigette Ayers PA-C - Last Filed: 04/25/24 16:32>
[2024-04-25 17:13] LABS: Basophils Absolute Auto 0.1 K/mm3 (0.0-0.1); Basophils Percent Auto 0.5 % (0.2-1.2); Eosinophils Absolute Auto 0.2 K/mm3 (0-0.3); Eosinophils Percent Auto 1.5 % (0-4.4); Hematocrit 39.9 % (37.0-47.0); Hemoglobin 12.8 g/dL (12.0-15.0); Immature Granulocyte Absolute 0.09 K/mm3 (0.00-0.031); Immature Granulocyte Percent A 0.7 % (0-0.5); Lymphocytes Absolute Auto 1.03 K/mm3 (0.9-3.2); Lymphocytes Percent Auto 7.7 % (18.3-44.2); Mean Corpuscular HGB Conc 32.1 g/dl (32-36); Mean Corpuscular Hemoglobin 32.8 pg (26-34); Mean Corpuscular Volume 102.3 fl (80-100); Mean Platelet Volume 9.8 fl (7.4-10.4); Monocytes Absolute Auto 1.6 K/mm3 (0.1-0.6); Monocytes Percent Auto 11.8 % (2.6-8.5); Neutrophils Absolute Auto 10.4 K/mm3 (1.3-6.7); Neutrophils Percent Auto 77.8 % (45.5-73.1); Platelet Count Result 210 k/mm3 (150-375); Red Cell Distribution Width 15.7 % (11.5-14.5); White Blood Count 13.4 K/mm3 (4.5-10.0)
[2024-04-25 17:26] LABS: INR 1.1; Prothrombin Time 14.5 Seconds (11.1-14.7)
[2024-04-25 17:27] LABS: Partial Thromboplastin Time 26.2 Seconds (22.3-36.8)
[2024-04-25] MEDS: IPRATROPIUM 0.5 MG/ALBUTEROL SULFATE 2.5 MG AMPUL.NEB 3 ML INHALATION (17:31)
[2024-04-25 17:36] LABS: Alanine Aminotransferase 16 U/L (6-35); Alkaline Phosphatase 67 U/L (38-126); Anion Gap 6 mmol/L (4-12); Aspartate Amino Transferase 26 U/L (14-36); Bilirubin,Total 0.6 mg/dL (0.2-1.3); Blood Urea Nitrogen 29 mg/dL (7-17); Calcium 10.3 mg/dL (8.4-10.2); Carbon Dioxide 28 mmol/L (22-30); Chloride 105 mmol/L (98-107); Estimated CRCL calculation 36 ml/min; Estimated Glomerular Filt Rate 54; Glucose 108 mg/dL (65-110); Magnesium 1.7 mg/dL (1.6-2.3); Potassium 3.6 mmol/L (3.4-5.0); Sodium 139 mmol/L (137-145)
[2024-04-25 17:37] LABS: NT Pro B Type Natriuretic Pept 1920 pg/mL (19.9-100)
[2024-04-25 17:45] VITALS: PULSE 80; RESP 20
[2024-04-25 17:50] LABS: Alveolar/Arterial O2 Gradient 48.1 mmHg; Base Excess ABG 0.2 mEq/l (+/-2.0); Fractional Inspired Oxygen 28 %; HCO3 ABG 23.3 mEq/l (22.0-26.0); Oxygen Content ABG 16.8 %vol (16.0-22.0); Oxygen Saturation ABG 98.4 % (95.0-100.0); Oxyhemoglobin 97.7 % THb (90.0-100.0); PCO2 ABG 33.1 mmHg (35.0-45.0); PO2 ABG 112.5 mmHg (80.0-100.0); PO2 FiO2 Ratio Arterial Blood 4.02 %; Total Hemoglobin 12.1 g/dL (12.0-18.0); pH ABG 7.466 (7.350-7.450)
[2024-04-25 17:51] LABS: Device NASAL CANNULA; Modified Allen's Test Pass; Site Drawn RIGHT RADIAL
[2024-04-25 17:54] VITALS: PULSE 82; RESP 18
[2024-04-25 18:06] LABS: Influenza A QL RT-PCR Negative (Negative); Influenza B QL RT-PCR Negative (Negative); RSV RNA, RT-PCR Negative (Negative); SARS-CoV-2 RNA PCR Negative (Negative)
[2024-04-26] VITALS (59 sets, daily range): BP systolic 82–126; BP diastolic 52–79; PULSE 58–169; RESP 16–34; TEMP 36.4–37.2; O2SAT 74–100; BMI 22.3
--- NOTE | 2024-04-26 | ECHO_ITS ---
Patient Info Name: Loida Guillory Age: 73 years : 1950 Gender: Female Ht: 63 in Wt: 126 lbs BSA: 1.60 m2 HR: 90 bpm BP: 119 / 79 mmHg Heart Rhythm: Sinus Rhythm, Atrial Fibrillation Technical Quality: Poor Exam Date: 04/26/2024 2:32 PM Exam Location: Echo Lab Patient Status: Inpatient Admit Date: 04/26/2024 Staff Ordering Physician: Carina Roberto APRN Air Table Operator: Tor Martell RDCS Attending Provider: Maria A Agustin DO Referring Physician: Pardeep PINEDA; Exam Type: CA echo dop color flow w con Study Info Indications - A-FIB Complete two-dimensional, color flow and Doppler transthoracic echocardiogram is performed with contrast to opacify the left ventricle and to improve the deliniation of the left ventricle endocardial borders. Contrast/Agitated Saline Contrast/Ag. Saline: Definity Amount: 2.00 ml Existing IV Access: Yes Reason for Poor Study: poor echocardiographic windows Summary 1. Normal LV size and presereved LV systolic function with sigmoid shaped IVS. 2. Normal RV size and function. 3. Mild TR with mod PHTN. 4. Mild AR with sclerotic AV. Left Ventricle Ventricular septum is sigmoid shaped. Left ventricular chamber dimension is normal. Left ventricular systolic function is normal, estimated at 65-70%. Left ventricular septal wall motion is normal. Right Ventricle Right ventricular chamber dimension is normal. Right ventricular systolic function is normal. Left Atria Left atrial chamber dimension is mildly enlarged. Right Atria Right atrial chamber dimension is normal. Aortic Valve The aortic valve is probable trileaflet. There is mild aortic valve sclerosis. There is mild aortic valve regurgitation. Pulmonic Valve The pulmonic valve is not well visualized. Mitral Valve The mitral valve has normal leaflets. There is trace mitral valve regurgitation. Tricuspid Valve The tricuspid valve leaflets are normal. There is mild tricuspid valve regurgitation. Moderate pulmonary hypertension, estimated pulmonary arterial systolic pressure is 51 mmHg. Pericardium/Pleural The pericardium appears normal. There is no pericardial effusion. Aorta The aortic root size at the sinus of Valsalva is normal. Left Ventricular Outflow Tract Name Value Normal LVOT 2D LVOT Diameter 2.17 cm LVOT Doppler LVOT Peak Velocity 134.90 cm/s LVOT Peak Gradient 5 mmHg LVOT Mean Gradient 3 mmHg LVOT VTI 28.86 cm LVOT VTI/AV VTI Ratio 0.79 LVOT Stroke Volume 107.00 ml LVOT CO 7.49 l/min LVOT CI 4.69 L/min/m2 Pulmonic Valve Name Value Normal RVOT Doppler RVOT Peak Gradient 4 mmHg PV Doppler PV Peak Velocity 106.86 cm/s PV Peak Gradient 5 mmHg Mitral Valve Name Value Normal MV Doppler MV Decel Nye 320.63 cm/s2 MV PHT 0 s MV Area (PHT) 3.93 cm2 4.00-5.00 MV Diastolic Function MV E Peak Velocity 61.87 cm/s MV A Peak Velocity 107.97 cm/s MV E/A 0.57 MV Decel Time 0 s MV Annular TDI MV Septal e' Velocity 5.15 cm/s >=8.00 MV E/e' (Septal) 12.01 <=8.00 MV Lateral e' Velocity 10.10 cm/s >=10.00 MV E/e' (Lateral) 6.13 <=8.00 MV e' Average 7.62 MV E/e' (Average) 9.07 Tricuspid Valve Name Value Normal TV Regurgitation Doppler TR Peak Velocity 320.55 cm/s TR Peak Gradient 41 mmHg Estimated PAP/RSVP RA Pressure 10 mmHg <=5 PA Systolic Pressure 51 mmHg <36 RV Systolic Pressure 51 mmHg <36 TV Annular TDI TV Lateral Ena s' Velocity 16.35 cm/s 9.50-18.70 Aorta Name Value Normal Ascending Aorta Ao Root Diameter (MM) 3.59 cm Ao Root Diam Index (MM) 2.25 cm/m2 Ao [place] Diameter 2.75 cm 2.30-2.90 Aortic Valve Name Value Normal AV Doppler AV Peak Velocity 168.13 cm/s AV Peak Gradient 7 mmHg AV Mean Gradient 4 mmHg AV VTI 36.61 cm AV Area (Cont Eq VTI) 2.92 cm2 >=3.00 AV Area (Cont Eq Joseph) 2.98 cm2 AV V1/V2 Ratio 0.80 AV Regurgitation 2D LVOT Area 3.71 cm2 AV Regurgitation Doppler AR Decel Time 2 s AR Decel Nye 231.35 cm/s2 AR PHT 1 s Ventricles Name Value Normal LV Dimensions 2D/MM IVS Diastolic Thickness (2D) 1.57 cm 0.60-1.00 LVID Diastole (2D) 3.18 cm 3.80-5.20 LVIW Diastolic Thickness (2D) 1.15 cm 0.60-0.90 LVID Systole (2D) 1.94 cm 2.20-3.50 LVOT Diameter 2.17 cm LV Mass (2D Cubed) 144.21 g 67.00-162.00 LV Mass Index (2D Cubed) 0.01 g/cm2 0.00-0.01 Relative Wall Thickness (2D) 0.72 LV Fractional Shortening/Ejection Fraction 2D/MM LV Fractional Shortening (2D) 34 % 27-45 LV EF (2D Teicholz) 63 % 54-74 LV Diastolic Volume (4C MOD) 65.58 ml LV EF (4C MOD) 66 % LV Diastolic Volume (2C MOD) 48.96 ml LV EF (2C MOD) 66 % LV Diastolic Volume (BP MOD) 59.77 ml 46.00-106.00 LV Diastolic Volume Index (BP MOD) 0.04 l/m2 0.03-0.06 LV Systolic Volume (BP MOD) 19.40 ml 14.00-42.00 LV Systolic Volume Index (BP MOD) 0.01 l/m2 0.01-0.02 LV EF (BP MOD) 68 % 54-74 LV Diastolic Length (4C) 6.37 cm LV Systolic Length (4C) 5.26 cm LV Stroke Volume (4C MOD) 43.15 ml Atria Name Value Normal LA Dimensions LA Dimension (MM) 3.38 cm 2.70-3.80 LA Volume (4C A-L) 21.20 ml LA Volume (BP A-L) 28.98 ml RA Dimensions RA Area (4C) 15.94 cm2 <=18.00 Report Signatures
[2024-04-26] MEDS: methylPREDNISolone SOD SUCC 125 MG VIAL IV PUSH (01:41)
--- NOTE | 2024-04-26 04:04 | PC.NURSE ---
Patient's heart rate and rhythm showed afib 140-150 beats per min for short period of time. By the time nursing staff went to bedside of patient, patient was showing afib in the 90s. Notified EDP Dr. Aranda.
[2024-04-26 04:09] LABS: Add Urine Microscopic? YES; Appearance Urine Cloudy (Clear); Bacteria Urine 1+ /hpf; Bilirubin Urine Negative (Negative); Blood Urine Negative (Negative); Calcium Oxalate Crystals Urine Present /hpf; Color Urine Dark Yellow (Yellow); Glucose Urine UA Negative (Negative); Hyaline Casts Urine Present /lpf; Ketones Urine 1+ mg/dL (Negative); Leukocyte Esterase Ur Negative LEU/UL (Negative); Mucus Urine Present /lpf; Nitrate Urine Negative (Negative); Non Pathogenic Casts 0-2; Protein Urine 1+ mg/dL (Negative); Specific Grav Ur 1.032 (1.001-1.035); Squamous Epithelial Cell Urine Moderate /hpf (Few); WBC Urine 0-5 /hpf (0-3)
[2024-04-26] MEDS: dilTIAZem HCl INJ 25 MG/5 ML VIAL 10 MG IV PUSH (05:10)
[2024-04-26] MEDS: dilTIAZem 100 MG/100 ML 100 MG/100 ML BAG IV CONT (05:12)
--- NOTE | 2024-04-26 05:56 | ECG_ITS ---
Test Date: 2024-04-26 06:01:52 Measurements Intervals [place] Rate: 69 P: 56 MT: 203 QRS: -5 QRSD: 86 T: 53 QT: 393 QTc: 422 Interpretive Statements SINUS RHYTHM Compared to ECG 04/25/2024 17:05:29 No significant changes Electronically Signed On 04-29-2024 17:56:36 CLEAN UP WORKER by Nadeem Salazar M.D.
[2024-04-26] MEDS: AZITHROMYCIN 500 MG/NS 250 ML 500 MG/250 ML BAG 250 MG IVPB (06:52)
--- NOTE | 2024-04-26 09:29 | ECG_ITS ---
Test Date: 2024-04-26 09:58:25 Measurements Intervals [place] Rate: 85 P: 0 [place]: 0 QRS: 7 QRSD: 85 T: 57 QT: 370 QTc: 441 Interpretive Statements SINUS RHYTHM WITH PACS Compared to ECG 04/26/2024 06:01:52 NO SIGNIGIFCANT CHANGES Electronically Signed On 04-29-2024 18:02:02 VEHICLE SALES PROFESSIONAL by Nadeem Salazar M.D.
[2024-04-26 10:04] LABS: Troponin I < 0.012 ng/mL (0.000-0.034)
--- NOTE | 2024-04-26 10:11 | PC.NURSE ---
3 hour EKG done at 0958 shown to MD Lemus.
--- NOTE | 2024-04-26 10:27 | P.HP_ITS ---
H&P: HPI History of Present Illness Date/Time: 04/26/24 10:27 Chief Complaint: cough, runny nose, shortness of breath. Narrative: Patient is a 73 year old female that came to the ER with cough, runny nose, shortness of breath. Patient with history of COPD, chronic respiratory failure, small cell carcinoma, and hypertension. Patient normally wear oxygen at 2 liters PRN but has been requiring 3-4 liters. Patient has had a RUL lobectomy and follows with oncologist Dr. Jay at [facility]. WBC 13.4, BNP 1920. COVID, FLU, and RSV negative. Blood cultures obtained. Chest X-ray showed: IMPRESSION: 1. Opacities in the left perihilar region and bilateral lower lung zones which could represent atelectasis or pneumonia. 2. Cardiomegaly. 3. Status post right upper lobectomy. Chest CTA showed: MPRESSION: No evidence of pulmonary embolism Patchy probable consolidation of the left lower lobe suggesting pneumonia. 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 Grandparent Heart disease Hypertension Social History Social History Smoking packs per day: 1 Smoking cigarettes per day: 20.0 Years smoked: 40 Smoking pack-years: 40.00 Smoking status: Former smoker Tobacco type: cigarettes Smoking end date: 04/23/15 Alcohol intake: never Substance use: never Do You Feel Safe in your Home?: Yes Lack of Transportation: No Lack of Food: Never True Current Housing: I Have Housing Concerned About Future Housing: No Difficulty Paying Gas/Electric Bills: No Difficulty Paying for Meds: No Currently Unemployed: No Education: High School Diploma/GED Difficulty w/ Childcare or Family Care: No Spiritual care concerns: No Meds Home Medications and Allergies Home Medications ?Medication ?Instructions ?Recorded ?Confirmed ?Type aspirin 81 mg tablet,delayed 81 mg PO DAILY 06/17/19 04/26/24 History release (Adult Low Dose Aspirin) omega-3 fatty acids 1,000 mg 1,000 mg PO DAILY 06/17/19 04/26/24 History capsule (Fish Oil Concentrate) folic acid 1 mg tablet 1 mg PO DAILY #90 tabs 02/02/21 04/26/24 Rx methotrexate sodium 2.5 mg tablet See Rx Instructions .Route 02/02/21 04/26/24 Rx .COMPLEX #60 tabs albuterol sulfate 90 mcg/actuation 2 inh inhalation Q4-6H PRN 12/28/22 04/26/24 Rx aerosol inhaler shortness of breath or wheezing #6.7 grams alendronate 70 mg tablet See Rx Instructions .Route 02/06/24 04/26/24 Rx .COMPLEX #12 tabs amlodipine 10 mg tablet See Rx Instructions .Route 02/06/24 04/26/24 Rx .COMPLEX #90 tabs calcium 600 mg (as 1 tablet PO DAILY #90 tabs 02/06/24 04/26/24 Rx carbonate)-vitamin D3 20 mcg (800 unit) tablet losartan 50 mg tablet See Rx Instructions .Route 02/06/24 04/26/24 Rx .COMPLEX #90 tabs tiotropium 2.5 mcg-olodaterol 2.5 2 puff inhalation DAILY #4 grams 04/01/24 04/26/24 Rx mcg/actuation mist for inhalation famotidine 20 mg tablet See Rx Instructions .Route 04/24/24 04/26/24 Rx .COMPLEX #90 tabs calcium carbonate (Calcium 600) 1,200 mg PO DAILY 04/26/24 04/26/24 History Allergies Allergy/AdvReac Type Severity Reaction Status Date / Time amoxicillin Allergy Mild Diarrhea Verified 04/26/24 12:35 omeprazole Allergy Unknown rash Verified 04/26/24 12:35 levofloxacin AdvReac Intermediate Other Verified 04/26/24 12:35 ibuprofen AdvReac Unknown Verified 04/26/24 12:35 Vital Signs Vital Signs - 24 hr 04/25/24 16:28 04/25/24 16:30 04/25/24 17:45 Temperature 97.8 F Pulse Rate 88 80 Respiratory Rate 22 H 20 Blood Pressure 110/62 Pulse Oximetry 93 92 Oxygen Delivery Nasal Cannula Oxygen Flow Rate 4 04/25/24 17:54 04/26/24 01:36 04/26/24 01:37 Temperature 98.9 F Pulse Rate 82 91 Respiratory Rate 18 28 H Blood Pressure 126/69 Pulse Oximetry 100 98 Oxygen Delivery Nasal Cannula Oxygen Flow Rate 3 04/26/24 01:40 04/26/24 01:45 04/26/24 02:01 Temperature Pulse Rate 98 92 114 H Respiratory Rate 32 H 25 H 27 H Blood Pressure Pulse Oximetry 100 74 L 99 Oxygen Delivery Oxygen Flow Rate 04/26/24 02:20 04/26/24 02:30 04/26/24 02:32 Temperature Pulse Rate 94 93 102 H Respiratory Rate 25 H 31 H 34 H Blood Pressure 113/61 Pulse Oximetry 100 99 100 Oxygen Delivery Oxygen Flow Rate 04/26/24 02:45 04/26/24 02:46 04/26/24 03:02 Temperature Pulse Rate 91 102 H 90 Respiratory Rate 30 H 27 H 28 H Blood Pressure 110/69 108/59 L Pulse Oximetry 98 99 98 Oxygen Delivery Oxygen Flow Rate 04/26/24 03:04 04/26/24 03:15 04/26/24 03:40 Temperature Pulse Rate 136 H 94 169 H Respiratory Rate 22 H 16 30 H Blood Pressure Pulse Oximetry 98 97 90 Oxygen Delivery Oxygen Flow Rate 04/26/24 03:41 04/26/24 03:42 04/26/24 03:46 Temperature 98.6 F Pulse Rate 97 101 H 108 H Respiratory Rate 28 H 24 H 26 H Blood Pressure 105/74 105/74 Pulse Oximetry 98 98 97 Oxygen Delivery Oxygen Flow Rate 04/26/24 03:47 04/26/24 04:01 04/26/24 04:03 Temperature Pulse Rate 98 94 96 Respiratory Rate 26 H 33 H 20 Blood Pressure 93/59 L 117/60 Pulse Oximetry 100 96 99 Oxygen Delivery Oxygen Flow Rate 04/26/24 04:04 04/26/24 04:30 04/26/24 04:33 Temperature Pulse Rate 94 97 97 Respiratory Rate 31 H 28 H Blood Pressure 122/55 L Pulse Oximetry 98 97 Oxygen Delivery Oxygen Flow Rate 04/26/24 05:12 04/26/24 05:13 04/26/24 05:15 Temperature Pulse Rate 148 H 96 98 Respiratory Rate 31 H 31 H Blood Pressure 113/64 Pulse Oximetry 100 100 Oxygen Delivery Oxygen Flow Rate 04/26/24 05:29 04/26/24 05:33 04/26/24 05:45 Temperature 98.3 F Pulse Rate 81 100 72 Respiratory Rate 28 H 27 H 22 H Blood Pressure 106/71 Pulse Oximetry 100 100 100 Oxygen Delivery Oxygen Flow Rate 04/26/24 05:47 04/26/24 06:00 04/26/24 06:01 Temperature Pulse Rate 69 76 77 Respiratory Rate 23 H 26 H 23 H Blood Pressure 97/53 L 104/62 Pulse Oximetry 100 100 98 Oxygen Delivery Oxygen Flow Rate 04/26/24 06:06 04/26/24 06:06 04/26/24 06:16 Temperature Pulse Rate 89 77 79 Respiratory Rate 30 H Blood Pressure 104/62 111/65 Pulse Oximetry 98 Oxygen Delivery Oxygen Flow Rate 04/26/24 06:17 04/26/24 06:30 04/26/24 07:02 Temperature Pulse Rate 76 93 101 H Respiratory Rate 25 H 24 H 25 H Blood Pressure 111/74 Pulse Oximetry 99 100 100 Oxygen Delivery Oxygen Flow Rate 04/26/24 07:03 04/26/24 07:25 04/26/24 07:46 Temperature 97.7 F Pulse Rate 83 86 Respiratory Rate 26 H 33 H Blood Pressure Pulse Oximetry 100 100 Oxygen Delivery Oxygen Flow Rate 04/26/24 08:07 04/26/24 08:15 04/26/24 08:18 Temperature Pulse Rate 88 82 83 Respiratory Rate 28 H 32 H 26 H Blood Pressure 82/69 L Pulse Oximetry 100 100 100 Oxygen Delivery Oxygen Flow Rate 04/26/24 09:32 04/26/24 09:45 04/26/24 10:15 Temperature Pulse Rate 99 76 84 Respiratory Rate 24 H 29 H 26 H Blood Pressure 106/64 101/52 L Pulse Oximetry 100 98 100 Oxygen Delivery Oxygen Flow Rate 04/26/24 10:25 Temperature Pulse Rate 99 Respiratory Rate Blood Pressure Pulse Oximetry Oxygen Delivery Oxygen Flow Rate Exam Const: General: comfortable and no acute distress Eyes: Sclera: sclerae normal Resp: Auscultation: diminished lung sounds Cardio: Rhythm: abnormal rhythm (afib 94) irregularly irregular Heart sounds: Murmur heart sound present systolic GI: GI Palp: Yes Soft to palpation Auscultation: normal bowel sounds Skin: General skin exam: no rashes or lesions noted Neuro: Speech: normal speech Extrem: General: no pedal edema Psych: Mental Status: mental status grossly normal Affect: normal affect H&P: Results Labs Labs: Short CBC 04/25/24 Range/Units 17:02 WBC 13.4 H (4.5-10.0) K/mm3 Hgb 12.8 (12.0-15.0) g/dL Hct 39.9 (37.0-47.0) % Plt Count 210 (150-375) k/mm3 BMP 04/25/24 17:02 Sodium 139 Potassium 3.6 Chloride 105 Carbon Dioxide 28 BUN 29 H D Creatinine 1.00 Glucose 108 Calcium 10.3 H Cardiac Enzymes 04/26/24 Range/Units 09:23 Troponin I < 0.012 (0.000-0.034) ng/mL Liver Function 04/25/24 Range/Units 17:02 Total Bilirubin 0.6 (0.2-1.3) mg/dL AST 26 (14-36) U/L ALT 16 (6-35) U/L Alkaline Phosphatase 67 (38-126) U/L Albumin 4.0 (3.5-5.1) g/dL Urine 04/26/24 Range/Units 03:43 Urine Color Dark yellow (Yellow) Urine Appearance Cloudy H (Clear) Urine pH 5.0 (5.0-9.0) Ur Specific [place] 1.032 (1.001-1.035) Urine Protein 1+ H (Negative) mg/dL Urine Glucose (UA) Negative (Negative) mg/dL Assessment and Plan Assessment and plan (1) Atrial fibrillation: Qualifiers: Atrial fibrillation type: paroxysmal Qualified Code(s): I48.0 - Paroxysmal atrial fibrillation Code(s): I48.91 - Unspecified atrial fibrillation Status: Acute Assessment and Plan: * New onset Atrial fibrillation * Diltiazem 30 mg PO q6. * Telemetry * Lovenox 60 mg subq q12. * Cardiology consulted, appreciate recommendations. * Echocardiogram ordered. * Trop <0.012 x 2. * Lipid panel and TSH ordered. (2) Squamous cell carcinoma of lung: Qualifiers: Laterality: right Qualified Code(s): C34.91 - Malignant neoplasm of unspecified part of right bronchus or lung Code(s): C34.90 - Malignant neoplasm of unspecified part of unspecified bronchus or lung Status: Acute Assessment and Plan: * Stopped smoking 3 years ago * history of lung cancer with prior right upper lobe lobectomy. * Follows with oncology at [facility]. (3) Bronchopneumonia: Code(s): J18.0 - Bronchopneumonia, unspecified organism Status: Acute Assessment and Plan: * Azithromycin 500 mg IVPB daily and Ceftriaxone 1 gram IVPB daily * oxygen supplementation * Albuterol 2 puffs q 4-6 PRN. * Blood cultures obtained. * Afebrile. * Guaifenesin 600 mg PO q 12. (4) Emphysema lung: Code(s): J43.9 - Emphysema, unspecified Status: Acute Assessment and Plan: * Albuterol PRN. * Anoro 1 puff daily (5) Cardiac murmur: Code(s): R01.1 - Cardiac murmur, unspecified Status: Acute Assessment and Plan: * Cardiology following. (6) Essential hypertension: Code(s): I10 - Essential (primary) hypertension Status: Acute Assessment and Plan: * blood pressure soft at 101/52. Patient was taking Amlodipine and Losartan. * Hold Losartan. * Discontinue Amlodipine per Cardiology. Hospitalist MIPS Advance Care Plan I have confirmed that the patient's Advanced Care Plan is present, code status is documented, or surrogate decision maker is listed in patient medical record.: Yes Medication Reconciliation I have utilized all available resources to obtain, update and review the patients current medications (includes all prescriptions, OTC, herbals, cannabis, and nutritional supplements).: Yes
--- NOTE | 2024-04-26 10:31 | PC.NURSE ---
Spoke with Carina SNOW about diltiazem gtt for patient. still hold for now. will continue to monitor patient heart rate.
[2024-04-26] MEDS: ASPIRIN 81 MG ENTERIC TABLET PO (10:45)
[2024-04-26] MEDS: METHOTREXATE 2.5 MG TAB (*CHEMO) 12.5 MG BY MOUTH (10:45)
[2024-04-26] MEDS: OMEGA 3 POLYUNSAT FATTY ACIDS 1 GM CAP PO (10:46)
[2024-04-26] MEDS: CALCIUM CARBONATE (OSCAL) 500 MG TABLET 1000 MG PO (10:46)
[2024-04-26] MEDS: FAMOTIDINE 20 MG TABLET BY MOUTH (10:46)
[2024-04-26] MEDS: FOLIC ACID 1 MG TABLET PO (10:46)
--- NOTE | 2024-04-26 10:54 | PC.NURSE ---
not refusing to take inhaler ordered for substitution for home inhaler. per HARBOR MASTER Carina, okay for patient to bring and take her inhaler from home that is covered by insurance.
--- NOTE | 2024-04-26 10:54 | PCRCNOTE ---
PT. REFUSED ANORO; WANTS TO BRING HERS FROM HOME; R.N. AWARE.
[2024-04-26 10:56] LABS: Basophils Percent Auto 0.3 % (0.2-1.2); Hematocrit 35.6 % (37.0-47.0); Hemoglobin 11.5 g/dL (12.0-15.0); Immature Granulocyte Absolute 0.06 K/mm3 (0.00-0.031); Immature Granulocyte Percent A 0.5 % (0-0.5); Lymphocytes Absolute Auto 0.49 K/mm3 (0.9-3.2); Lymphocytes Percent Auto 4.3 % (18.3-44.2); Mean Corpuscular HGB Conc 32.3 g/dl (32-36); Mean Corpuscular Hemoglobin 32.9 pg (26-34); Mean Corpuscular Volume 101.7 fl (80-100); Mean Platelet Volume 9.7 fl (7.4-10.4); Monocytes Absolute Auto 0.2 K/mm3 (0.1-0.6); Neutrophils Absolute Auto 10.5 K/mm3 (1.3-6.7); Neutrophils Percent Auto 92.9 % (45.5-73.1); Platelet Count Result 203 k/mm3 (150-375); Red Cell Distribution Width 15.4 % (11.5-14.5); White Blood Count 11.3 K/mm3 (4.5-10.0)
[2024-04-26 11:10] LABS: Alanine Aminotransferase 15 U/L (6-35); Albumin Level 3.4 g/dL (3.5-5.1); Alkaline Phosphatase 57 U/L (38-126); Anion Gap 3 mmol/L (4-12); Aspartate Amino Transferase 22 U/L (14-36); Bilirubin,Total 0.5 mg/dL (0.2-1.3); Blood Urea Nitrogen 25 mg/dL (7-17); Calcium 9.1 mg/dL (8.4-10.2); Carbon Dioxide 27 mmol/L (22-30); Chloride 107 mmol/L (98-107); Estimated CRCL calculation 49 ml/min; Estimated Glomerular Filt Rate > 60; Glucose 193 mg/dL (65-110); Magnesium 1.7 mg/dL (1.6-2.3); Potassium 4.4 mmol/L (3.4-5.0); Sodium 137 mmol/L (137-145)
--- NOTE | 2024-04-26 12:21 | ADMGEN ---
This patient, Loida Guillory, was admitted to IMU Room 200-01 at 1200. Patient/family oriented to hospital policies and general routines including ID bracelet, bed and alarms, visiting hours, pain management, procedures, bathroom and other care routines, personal items, smoking policy, room service/diet, and visiting hours. Information on how to activate the Rapid Response Team has been discussed. Patient/Family are encouraged to report perceived risks to care and to ask questions if they do not understand what they are told or what they should do.
[2024-04-26 12:30] LABS: Cholesterol 158 mg/dL (0-200); HDL Direct 41 mg/dL; Triglycerides 81 mg/dL (<150)
[2024-04-26 12:42] LABS: LDL Cholesterol Direct 77 mg/dL
[2024-04-26 12:43] LABS: Troponin I < 0.012 ng/mL (0.000-0.034)
[2024-04-26 13:00] LABS: Thyroid Stimulating Hormone Reflex 0.319 uIU/mL (0.465-4.68)
[2024-04-26 14:11] LABS: Free T4 Free Thyroxine Reflex 1.82 ng/dL (0.78-2.19)
[2024-04-26] MEDS: dilTIAZem HCL 30 MG TABLET PO ×3 (14:26→23:59)
[2024-04-26] MEDS: MAGNESIUM SULF 2 GM/WATER 50ML 2 GM/50 ML BAG IVPB (14:39)
[2024-04-26] MEDS: ENOXAPARIN 60 MG/0.6 ML SYRINGE SUB-Q ×2 (14:39→23:58)
[2024-04-26] MEDS: PERFLUTREN LIPID MICROSPHERES 1.5 ML VIAL DILUTED TO 10 ML TOTAL VOLUME IV PUSH (15:00)
[2024-04-26 15:19] LABS: Total Triiodothyronine (T3) 0.78 NG/ML (0.97-1.69)
--- NOTE | 2024-04-26 15:54 | P.CONCA_ITS ---
Assessment and Plan Assessment and plan (1) Essential hypertension: Code(s): I10 - Essential (primary) hypertension Status: Acute Assessment and Plan: Continue with blood pressure monitoring Discontinue amlodipine Agreed with holding off on losartan with low blood pressure Currently utilizing diltiazem 30 mg Q 6 mid transition CD 120 and uses for rate control as well as blood pressure management (2) Bronchopneumonia: Code(s): J18.0 - Bronchopneumonia, unspecified organism Status: Acute Assessment and Plan: Likely underlying problem recommend that she go on antibiotics per management by hospitalist service she also has underlying COPD emphysema and 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 she is going to be getting a lung biopsy for recurrent lung cancer in which case she will need to come off of Eliquis and then restart Concept of rate control and rhythm management were discussed with the patient and her family at bedside I recommend that we continue with diltiazem 30 Q 6 and then can transition her to CD 120 daily Discontinue amlodipine May need to hold off on giving her losartan although I would like that medication in regards to her valvular dysfunction Recommend outpatient tele monitor for 2-3 weeks (4) Cardiac murmur: Code(s): R01.1 - Cardiac murmur, unspecified Status: Acute (5) Emphysema lung: Code(s): J43.9 - Emphysema, unspecified Status: Acute Assessment and Plan: Emphysema noted on CT scan also has an extensive smoking history of nearly 40 years stopped 3 years ago on home oxygen chronically Plan Valvular heart disease noted on echo as well as on exam doubt this is the precipitating cause of her current presentation History of Present Illness History of Present Illness Consult date/time: 04/26/24 15:54 Reason For Visit: Shortness of breath, pneumonia, AFib Narrative: Patient is a 73-year-old female no antecedent history of coronary artery disease or prior arrhythmia issues she is a heavy smoker who stopped smoking 3 years ago has a history of lung cancer with prior lobectomy currently is being worked up for another nodule that has been identified plan for getting evaluation for recurrence of lung cancer she has had prior right upper lobe lobectomy done at [facility] for squamous cell lung cancer. Recalls that she has had radiation treatments as well. Patient has history of COPD she is on oxygen at home and currently has been diagnosed with a pneumonia URI She has a history of hypertension she has been on amlodipine 10 mg and losartan 50 mg We were consulted from the perspective that she was identified as having atrial fibrillation on presentation. 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 Grandparent Heart disease Hypertension Social History Social History Smoking packs per day: 1 Smoking cigarettes per day: 20.0 Years smoked: 40 Smoking pack-years: 40.00 Smoking status: Former smoker Tobacco type: cigarettes Smoking end date: 04/23/15 Alcohol intake: never Substance use: never Do You Feel Safe in your Home?: Yes Lack of Transportation: No Lack of Food: Never True Current Housing: I Have Housing Concerned About Future Housing: No Difficulty Paying Gas/Electric Bills: No Difficulty Paying for Meds: No Currently Unemployed: No Education: High School Diploma/GED Difficulty w/ Childcare or Family Care: No Spiritual care concerns: No Meds Home Medications and Allergies Home Medications ?Medication ?Instructions ?Recorded ?Confirmed ?Type aspirin 81 mg tablet,delayed 81 mg PO DAILY 06/17/19 04/26/24 History release (Adult Low Dose Aspirin) omega-3 fatty acids 1,000 mg 1,000 mg PO DAILY 06/17/19 04/26/24 History capsule (Fish Oil Concentrate) folic acid 1 mg tablet 1 mg PO DAILY #90 tabs 02/02/21 04/26/24 Rx methotrexate sodium 2.5 mg tablet See Rx Instructions .Route 02/02/21 04/26/24 Rx .COMPLEX #60 tabs albuterol sulfate 90 mcg/actuation 2 inh inhalation Q4-6H PRN 12/28/22 04/26/24 Rx aerosol inhaler shortness of breath or wheezing #6.7 grams alendronate 70 mg tablet See Rx Instructions .Route 02/06/24 04/26/24 Rx .COMPLEX #12 tabs amlodipine 10 mg tablet See Rx Instructions .Route 02/06/24 04/26/24 Rx .COMPLEX #90 tabs calcium 600 mg (as 1 tablet PO DAILY #90 tabs 02/06/24 04/26/24 Rx carbonate)-vitamin D3 20 mcg (800 unit) tablet losartan 50 mg tablet See Rx Instructions .Route 02/06/24 04/26/24 Rx .COMPLEX #90 tabs tiotropium 2.5 mcg-olodaterol 2.5 2 puff inhalation DAILY #4 grams 04/01/24 04/26/24 Rx mcg/actuation mist for inhalation famotidine 20 mg tablet See Rx Instructions .Route 04/24/24 04/26/24 Rx .COMPLEX #90 tabs calcium carbonate (Calcium 600) 1,200 mg PO DAILY 04/26/24 04/26/24 History Allergies Allergy/AdvReac Type Severity Reaction Status Date / Time amoxicillin Allergy Mild Diarrhea Verified 04/26/24 12:35 omeprazole Allergy Unknown rash Verified 04/26/24 12:35 levofloxacin AdvReac Intermediate Other Verified 04/26/24 12:35 ibuprofen AdvReac Unknown Verified 04/26/24 12:35 Vital Signs Vital Signs - 24 hr 04/25/24 16:28 04/25/24 16:30 04/25/24 17:45 Temperature 36.6 C Pulse Rate 88 80 Respiratory Rate 22 H 20 Blood Pressure 110/62 Pulse Oximetry 93 92 Oxygen Delivery Nasal Cannula Oxygen Flow Rate 4 04/25/24 17:54 04/26/24 01:36 04/26/24 01:37 Temperature 37.2 C Pulse Rate 82 91 Respiratory Rate 18 28 H Blood Pressure 126/69 Pulse Oximetry 100 98 Oxygen Delivery Nasal Cannula Oxygen Flow Rate 3 04/26/24 01:40 04/26/24 01:45 04/26/24 02:01 Temperature Pulse Rate 98 92 114 H Respiratory Rate 32 H 25 H 27 H Blood Pressure Pulse Oximetry 100 74 L 99 Oxygen Delivery Oxygen Flow Rate 04/26/24 02:20 04/26/24 02:30 04/26/24 02:32 Temperature Pulse Rate 94 93 102 H Respiratory Rate 25 H 31 H 34 H Blood Pressure 113/61 Pulse Oximetry 100 99 100 Oxygen Delivery Oxygen Flow Rate 04/26/24 02:45 04/26/24 02:46 04/26/24 03:02 Temperature Pulse Rate 91 102 H 90 Respiratory Rate 30 H 27 H 28 H Blood Pressure 110/69 108/59 L Pulse Oximetry 98 99 98 Oxygen Delivery Oxygen Flow Rate 04/26/24 03:04 04/26/24 03:15 04/26/24 03:40 Temperature Pulse Rate 136 H 94 169 H Respiratory Rate 22 H 16 30 H Blood Pressure Pulse Oximetry 98 97 90 Oxygen Delivery Oxygen Flow Rate 04/26/24 03:41 04/26/24 03:42 04/26/24 03:46 Temperature 37.0 C Pulse Rate 97 101 H 108 H Respiratory Rate 28 H 24 H 26 H Blood Pressure 105/74 105/74 Pulse Oximetry 98 98 97 Oxygen Delivery Oxygen Flow Rate 04/26/24 03:47 04/26/24 04:01 04/26/24 04:03 Temperature Pulse Rate 98 94 96 Respiratory Rate 26 H 33 H 20 Blood Pressure 93/59 L 117/60 Pulse Oximetry 100 96 99 Oxygen Delivery Oxygen Flow Rate 04/26/24 04:04 04/26/24 04:30 04/26/24 04:33 Temperature Pulse Rate 94 97 97 Respiratory Rate 31 H 28 H Blood Pressure 122/55 L Pulse Oximetry 98 97 Oxygen Delivery Oxygen Flow Rate 04/26/24 05:12 04/26/24 05:13 04/26/24 05:15 Temperature Pulse Rate 148 H 96 98 Respiratory Rate 31 H 31 H Blood Pressure 113/64 Pulse Oximetry 100 100 Oxygen Delivery Oxygen Flow Rate 04/26/24 05:29 04/26/24 05:33 04/26/24 05:45 Temperature 36.8 C Pulse Rate 81 100 72 Respiratory Rate 28 H 27 H 22 H Blood Pressure 106/71 Pulse Oximetry 100 100 100 Oxygen Delivery Oxygen Flow Rate 04/26/24 05:47 04/26/24 06:00 04/26/24 06:01 Temperature Pulse Rate 69 76 77 Respiratory Rate 23 H 26 H 23 H Blood Pressure 97/53 L 104/62 Pulse Oximetry 100 100 98 Oxygen Delivery Oxygen Flow Rate 04/26/24 06:06 04/26/24 06:06 04/26/24 06:16 Temperature Pulse Rate 89 77 79 Respiratory Rate 30 H Blood Pressure 104/62 111/65 Pulse Oximetry 98 Oxygen Delivery Oxygen Flow Rate 04/26/24 06:17 04/26/24 06:30 04/26/24 07:02 Temperature Pulse Rate 76 93 101 H Respiratory Rate 25 H 24 H 25 H Blood Pressure 111/74 Pulse Oximetry 99 100 100 Oxygen Delivery Oxygen Flow Rate 04/26/24 07:03 04/26/24 07:25 04/26/24 07:46 Temperature 36.5 C Pulse Rate 83 86 Respiratory Rate 26 H 33 H Blood Pressure Pulse Oximetry 100 100 Oxygen Delivery Oxygen Flow Rate 04/26/24 08:07 04/26/24 08:15 04/26/24 08:18 Temperature Pulse Rate 88 82 83 Respiratory Rate 28 H 32 H 26 H Blood Pressure 82/69 L Pulse Oximetry 100 100 100 Oxygen Delivery Oxygen Flow Rate 04/26/24 09:32 04/26/24 09:45 04/26/24 10:15 Temperature Pulse Rate 99 76 84 Respiratory Rate 24 H 29 H 26 H Blood Pressure 106/64 101/52 L Pulse Oximetry 100 98 100 Oxygen Delivery Oxygen Flow Rate 04/26/24 10:25 04/26/24 10:59 04/26/24 11:15 Temperature 36.8 C Pulse Rate 99 82 90 Respiratory Rate 24 H Blood Pressure 119/79 Pulse Oximetry 96 Oxygen Delivery Oxygen Flow Rate 04/26/24 12:30 04/26/24 15:44 Temperature 36.6 C Pulse Rate 73 Respiratory Rate 24 H Blood Pressure 107/59 L Pulse Oximetry 98 99 Oxygen Delivery Nasal Cannula Oxygen Flow Rate 4 Exam 2 Narrative: Currently denies episodes of chest pains or shortness of breath Says that she is almost back to her usual state of health Does not feel any palpitations Cardio: Other: Regular rate and rhythm currently noted to be in sinus rhythm on traffic monitor specialist Has a 2/6 systolic murmur Extrem: Other: No edema noted bilaterally Results Labs and Meds 04/26/24 10:48 04/26/24 09:23 Lab results: Cardiac Enzymes 04/25/24 04/26/24 04/26/24 Range/Units 17:02 09:23 12:02 AST 26 22 (14-36) U/L Troponin I < 0.012 < 0.012 (0.000-0.034) ng/mL Coagulation 04/25/24 Range/Units 17:02 PT 14.5 (11.1-14.7) Seconds APTT 26.2 (22.3-36.8) Seconds Lipids 04/26/24 Range/Units 12:02 Triglycerides 81 (<150) mg/dL Cholesterol 158 (0-200) mg/dL CBC 04/25/24 04/26/24 Range/Units 17:02 10:48 WBC 13.4 H 11.3 H (4.5-10.0) K/mm3 RBC 3.90 L 3.50 L (4.2-5.4) M/mm3 Hgb 12.8 11.5 L (12.0-15.0) g/dL Hct 39.9 35.6 L (37.0-47.0) % Plt Count 210 203 (150-375) k/mm3 Lymph # (Auto) 1.03 0.49 L (0.9-3.2) K/mm3 [place] # (Auto) 1.6 H 0.2 (0.1-0.6) K/mm3 Eos # (Auto) 0.2 0.0 (0-0.3) K/mm3 Baso # (Auto) 0.1 0.0 (0.0-0.1) K/mm3 Comprehensive Metabolic Panel 04/25/24 04/26/24 Range/Units 17:02 09:23 Sodium 139 137 (137-145) mmol/L Potassium 3.6 4.4 (3.4-5.0) mmol/L Chloride 105 107 (98-107) mmol/L Carbon Dioxide 28 27 (22-30) mmol/L BUN 29 H D 25 H (7-17) mg/dL Creatinine 1.00 0.70 (0.7-1.0) mg/dL Glucose 108 193 H (65-110) mg/dL Calcium 10.3 H 9.1 (8.4-10.2) mg/dL AST 26 22 (14-36) U/L ALT 16 15 (6-35) U/L Alkaline Phosphatase 67 57 (38-126) U/L Total Protein 7.0 6.0 L (6.3-8.2) g/dL Albumin 4.0 3.4 L (3.5-5.1) g/dL Intake and Output 04/25/24 04/26/24 04/26/24 23:59 07:59 15:59 Intake Total 54.5 250 Balance 54.5 250 Intake: IV 54.5 250 dilTIAZem 100 MG/100 ML 100 mg 4.5 0 In 100 ml @ 5 MG/HR 5 mls/hr IV CONT .Q20H STA Rx#:[id number] Azithromycin 500 mg/Ns 250 ml 250 500 mg In 250 ml @ 250 mls/hr IVPB ONCE STA Rx#:[id number] cefTRIAXone 1 GM/NS 50 ML 1 gm 50 In 50 ml @ 100 mls/hr IVPB ONCE STA Rx#:[id number] Patient Weight 04/26/24 23:59 Weight 57.2 kg Imaging and Cardiology Echo: report reviewed Quality CT scan of the chest done during this admission IMPRESSION: No evidence of pulmonary embolism Patchy probable consolidation of the left lower lobe suggesting pneumonia. 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 Cardiomegaly Echocardiogram from 2022 Summary 1. Complete two-dimensional, color flow and Doppler transthoracic echocardiogram is performed. 2. Left ventricular chamber dimension is normal. 3. Ventricular septum is sigmoid shaped. No LVOT obstruction. 4. Left ventricular systolic function is normal, estimated at 55-60%. 5. The left ventricular diastolic function is grade I diastolic dysfunction. 6. E/e' 11 is mildly elevated. 7. There is mild aortic valve sclerosis. 8. There is trace aortic valve regurgitation. 9. There is mild mitral valve regurgitation. 10. Mild pulmonary hypertension, estimated pulmonary arterial systolic pressure is 45 mmHg.
--- NOTE | 2024-04-26 16:27 | IVDEFINITY ---
Prior to administration of IV Definity the patient was educated on the risks and benefits of the imaging enhancing agent including potential adverse side effects. The patient verbalized understanding. Allergies were verified. No exclusion criteria were identified and at least one of the following inclusion criteria were met: 1) physician request, 2) patient technically difficult to image (per the [place] [employer]ocardi[employer] guidelines of two or more segments not discernable within the apical view), or 3) questionable left ventricular function. ?
[2024-04-26] MEDS: guaiFENesin 12 HR 600 MG TABCR PO (21:48)
[2024-04-27] VITALS (17 sets, daily range): BP systolic 115–127; BP diastolic 57–73; PULSE 54–85; RESP 16–28; TEMP 36.3–36.7; O2SAT 93–100
[2024-04-27 05:21] LABS: Basophils Percent Auto 0.2 % (0.2-1.2); Hematocrit 33.5 % (37.0-47.0); Hemoglobin 10.6 g/dL (12.0-15.0); Immature Granulocyte Absolute 0.18 K/mm3 (0.00-0.031); Immature Granulocyte Percent A 1.1 % (0-0.5); Lymphocytes Absolute Auto 0.98 K/mm3 (0.9-3.2); Lymphocytes Percent Auto 5.9 % (18.3-44.2); Mean Corpuscular HGB Conc 31.6 g/dl (32-36); Mean Corpuscular Hemoglobin 32.5 pg (26-34); Mean Corpuscular Volume 102.8 fl (80-100); Mean Platelet Volume 10.4 fl (7.4-10.4); Monocytes Absolute Auto 1.7 K/mm3 (0.1-0.6); Monocytes Percent Auto 10.2 % (2.6-8.5); Neutrophils Absolute Auto 13.6 K/mm3 (1.3-6.7); Neutrophils Percent Auto 82.6 % (45.5-73.1); Platelet Count Result 237 k/mm3 (150-375); Red Blood Count 3.26 M/mm3 (4.2-5.4); Red Cell Distribution Width 15.1 % (11.5-14.5); White Blood Count 16.5 K/mm3 (4.5-10.0)
[2024-04-27 05:35] LABS: Alanine Aminotransferase 17 U/L (6-35); Albumin Level 3.2 g/dL (3.5-5.1); Alkaline Phosphatase 66 U/L (38-126); Anion Gap 3 mmol/L (4-12); Aspartate Amino Transferase 25 U/L (14-36); Bilirubin,Total 0.5 mg/dL (0.2-1.3); Blood Urea Nitrogen 27 mg/dL (7-17); Calcium 8.8 mg/dL (8.4-10.2); Carbon Dioxide 28 mmol/L (22-30); Chloride 108 mmol/L (98-107); Estimated CRCL calculation 49 ml/min; Estimated Glomerular Filt Rate > 60; Glucose 138 mg/dL (65-110); Potassium 4.3 mmol/L (3.4-5.0); Sodium 139 mmol/L (137-145)
[2024-04-27] MEDS: dilTIAZem HCL 30 MG TABLET PO ×2 (05:58→11:23)
[2024-04-27] MEDS: AZITHROMYCIN 500 MG/NS 250 ML 500 MG/250 ML BAG 250 MG IVPB (06:50)
[2024-04-27] MEDS: CALCIUM CARBONATE (OSCAL) 500 MG TABLET 1000 MG PO (07:55)
[2024-04-27] MEDS: FAMOTIDINE 20 MG TABLET BY MOUTH (07:55)
[2024-04-27] MEDS: guaiFENesin 12 HR 600 MG TABCR PO ×2 (07:56→20:53)
[2024-04-27] MEDS: OMEGA 3 POLYUNSAT FATTY ACIDS 1 GM CAP PO (07:56)
[2024-04-27] MEDS: FOLIC ACID 1 MG TABLET PO (07:56)
[2024-04-27] MEDS: ASPIRIN 81 MG ENTERIC TABLET PO (07:56)
[2024-04-27] MEDS: ENOXAPARIN 60 MG/0.6 ML SYRINGE SUB-Q (11:23)
--- NOTE | 2024-04-27 11:46 | PM.IMPN ---
Progress Note: A&P Assessment and Plan (1) Atrial fibrillation: Qualifiers: Atrial fibrillation type: paroxysmal Qualified Code(s): I48.0 - Paroxysmal atrial fibrillation Code(s): I48.91 - Unspecified atrial fibrillation Status: Acute Assessment and Plan: New onset Atrial fibrillation Diltiazem 30 mg PO q6 discontinued. Start Diltiazem CD 120 mg PO daily. Telemetry Switch from Lovenox to Eliquis 5 mg PO BID. Cardiology consulted, appreciate recommendations. Echocardiogram showed: Summary 1. Normal LV size and presereved LV systolic function with sigmoid shaped IVS. 2. Normal RV size and function. 3. Mild TR with mod PHTN. 4. Mild AR with sclerotic AV. Left Ventricle Ventricular septum is sigmoid shaped. Left ventricular chamber dimension is normal. Left ventricular systolic function is normal, estimated at 65-70%. Left ventricular septal wall motion is normal. Trop <0.012 x 2. Lipid panel: Triglycerides 81, Cholesterol 158, LDL 77, HDL 41. TSH 0.319, Free T4 1.82, Total T3 0.78. (2) Squamous cell carcinoma of lung: Qualifiers: Laterality: right Qualified Code(s): C34.91 - Malignant neoplasm of unspecified part of right bronchus or lung Code(s): C34.90 - Malignant neoplasm of unspecified part of unspecified bronchus or lung Status: Acute Assessment and Plan: Stopped smoking 3 years ago history of lung cancer with prior right upper lobe lobectomy. Follows with oncology at [facility]. (3) Bronchopneumonia: Code(s): J18.0 - Bronchopneumonia, unspecified organism Status: Acute Assessment and Plan: Azithromycin 500 mg IVPB daily and Ceftriaxone 1 gram IVPB daily oxygen supplementation Albuterol 2 puffs q 4-6 PRN. Blood cultures no growth to date. Afebrile. Guaifenesin 600 mg PO q 12. Chest CTA showed: (results reviewed with patient and family) IMPRESSION: No evidence of pulmonary embolism Patchy probable consolidation of the left lower lobe suggesting pneumonia. 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 Cardiomegaly (4) Emphysema lung: Code(s): J43.9 - Emphysema, unspecified Status: Acute Assessment and Plan: Albuterol PRN. Anoro 1 puff daily (5) Cardiac murmur: Code(s): R01.1 - Cardiac murmur, unspecified Status: Acute Assessment and Plan: Cardiology following. (6) Essential hypertension: Code(s): I10 - Essential (primary) hypertension Status: Acute Assessment and Plan: blood pressure soft at 101/52. Patient was taking Amlodipine and Losartan. Hold Losartan. Discontinue Amlodipine per Cardiology. 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 Patient and family aware. Monitor. Subjective Date/time seen: 04/27/24 11:46 Interval history: Patient sitting up in bed with family at bedside. Patient reports that she wasn't as short of breath when she got up to bathroom today. Patient denies chest pain, palpitations, headache, dizziness, nausea, or vomiting. Review of Systems Review of Systems: All systems reviewed & are unremarkable except as noted in HPI and below Exam Const: General: comfortable and no acute distress Eyes: Sclera: sclerae normal Resp: Effort & Inspection: normal respiratory effort Other: Slightly diminished. Cardio: Rate: regular rate Rhythm: regular rhythm Heart sounds: Murmur heart sound present systolic Other: Telemetry SR 63 Skin: General skin exam: no rashes or lesions noted Neuro: Speech: normal speech Extrem: General: no pedal edema Psych: Mental Status: mental status grossly normal Affect: normal affect Objective Data Vital Signs Vital Signs: Vital Signs - 24 hr 04/26/24 12:30 04/26/24 14:00 04/26/24 15:44 Temperature 97.8 F Pulse Rate 75 73 Respiratory Rate 24 H Blood Pressure 107/59 L Pulse Oximetry 98 99 Oxygen Delivery Nasal Cannula Oxygen Flow Rate 4 Fraction of Inspired Oxygen 04/26/24 16:00 04/26/24 16:00 04/26/24 18:00 Temperature Pulse Rate 78 70 Respiratory Rate Blood Pressure Pulse Oximetry 98 Oxygen Delivery Nasal Cannula Oxygen Flow Rate 3 Fraction of Inspired Oxygen 04/26/24 19:58 04/26/24 20:00 04/26/24 21:45 Temperature 97.6 F Pulse Rate 81 67 Respiratory Rate 22 H Blood Pressure 126/67 Pulse Oximetry 94 94 Oxygen Delivery Nasal Cannula Oxygen Flow Rate 3 Fraction of Inspired Oxygen 04/26/24 22:00 04/26/24 23:54 04/27/24 00:00 Temperature 98.1 F Pulse Rate 67 58 L 58 L Respiratory Rate 20 Blood Pressure 125/55 L Pulse Oximetry 97 Oxygen Delivery Oxygen Flow Rate Fraction of Inspired Oxygen 04/27/24 00:00 04/27/24 02:00 04/27/24 04:00 Temperature Pulse Rate 57 L 57 L Respiratory Rate Blood Pressure Pulse Oximetry 98 Oxygen Delivery Nasal Cannula Oxygen Flow Rate 3 Fraction of Inspired Oxygen 04/27/24 04:00 04/27/24 04:32 04/27/24 06:00 Temperature 97.4 F L Pulse Rate 57 L 54 L Respiratory Rate 24 H Blood Pressure 127/62 Pulse Oximetry 97 97 Oxygen Delivery Nasal Cannula Oxygen Flow Rate 3 Fraction of Inspired Oxygen 04/27/24 08:00 04/27/24 08:00 04/27/24 08:00 Temperature 97.6 F Pulse Rate 58 L 58 L 60 Respiratory Rate 16 16 Blood Pressure 115/65 Pulse Oximetry 98 93 Oxygen Delivery Nasal Cannula Oxygen Flow Rate 3 Fraction of Inspired Oxygen 32 04/27/24 08:10 04/27/24 10:00 Temperature Pulse Rate 55 L Respiratory Rate Blood Pressure Pulse Oximetry 93 Oxygen Delivery Nasal Cannula Oxygen Flow Rate 3 Fraction of Inspired Oxygen 32 Intake/Output Intake/Output: Intake & Output 04/24/24 04/25/24 04/26/24 04/27/24 23:59 23:59 23:59 23:59 Intake Total 1054.5 390 Output Total 400 400 Balance 654.5 -10 Meds/Results Medications: Active Medications Generic Name Dose Route Start Last Admin Trade Name Freq PRN Reason Stop Dose Admin Acetaminophen 650 mg 04/26/24 06:14 Acetaminophen 325 Mg Tablet PO Q4H PRN Mild Pain (1-3) or Fever Albuterol 2 puff 04/26/24 09:57 Albuterol Sulfate (*Sp) Aerosol 1 Puff INHALATION Q4-6H PRN shortness of breath or wheezing Alendronate Sodium 70 mg 05/02/24 06:30 Alendronate Sodium 70 Mg Tablet BY MOUTH Fr@0630 [facility] Aspirin 81 mg 04/26/24 10:30 04/27/24 07:56 Aspirin 81 Mg Enteric Tablet PO 81 mg DAILY [facility] Administration Calcium Carbonate 1,000 mg 04/26/24 10:30 04/27/24 07:55 Calcium Carbonate (Oscal) 500 Mg Tablet PO 1,000 mg QAM CHENG Administration Diltiazem HCl 30 mg 04/26/24 12:00 04/27/24 11:23 Diltiazem Hcl 30 Mg Tablet PO 30 mg Q6HR [facility] Administration Enoxaparin Sodium 60 mg 04/26/24 11:00 04/27/24 11:23 Enoxaparin 60 Mg/0.6 Ml Syringe SUB-Q 60 mg Q12H [facility] Administration Famotidine 20 mg 04/26/24 10:30 04/27/24 07:55 Famotidine 20 Mg Tablet BY MOUTH 20 mg DAILY [facility] Administration Fish Oil 1 gm 04/26/24 10:30 04/27/24 07:56 [place] 3 Polyunsat Fatty Acids 1 Gm Cap PO 1 gm DAILY [facility] Administration Folic Acid 1 mg 04/26/24 10:30 04/27/24 07:56 Folic Acid 1 Mg Tablet PO 1 mg DAILY [facility] Administration Guaifenesin 600 mg 04/26/24 21:00 04/27/24 07:56 Guaifenesin 12 Hr 600 Mg Tabcr PO 05/03/24 20:59 600 mg Q12HR [facility] Administration Ceftriaxone Sodium 1 gm in 50 mls @ 100 mls/hr 04/27/24 06:00 04/27/24 06:50 Rocephin 1 Gm/Ns 50 Ml IVPB Infused Q24H [facility] Infusion Azithromycin 500 mg in 250 mls @ 250 mls/hr 04/27/24 06:00 04/27/24 06:50 Zithromax IVPB 250 mls/hr Q24H [facility] Administration Methotrexate 12.5 mg 04/26/24 10:30 04/26/24 10:45 Methotrexate 2.5 Mg Tab (*Chemo) BY MOUTH 12.5 mg Sa@0900 [facility] Administration Umeclidinium/Vilanterol 1 puff 04/26/24 10:30 04/27/24 08:11 Umeclidinium/Vilanterol 62.5-25 Mcg Ellipta INHALATION Not Given DAILYRT [facility] Radiology Results: ITS Impressions Chest X-Ray 04/25/24 16:56 IMPRESSION: 1. Opacities in the left perihilar region and bilateral lower lung zones which could represent atelectasis or pneumonia. 2. Cardiomegaly. 3. Status post right upper lobectomy. Chest CTA 04/26/24 12:03 IMPRESSION: No evidence of pulmonary embolism Patchy probable consolidation of the left lower lobe suggesting pneumonia. 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 Cardiomegaly Labs Labs: Laboratory Results - last 24 hr 04/26/24 04/27/24 12:02 04:34 WBC 16.5 H RBC 3.26 L Hgb 10.6 L Hct 33.5 L MCV 102.8 H MCH 32.5 MCHC 31.6 L RDW 15.1 H Plt Count 237 MPV 10.4 Immature Gran % (Auto) 1.1 H Neut % (Auto) 82.6 H Lymph % (Auto) 5.9 L [place] % (Auto) 10.2 H Eos % (Auto) 0.0 Baso % (Auto) 0.2 Lymph # (Auto) 0.98 [place] # (Auto) 1.7 H Eos # (Auto) 0.0 Baso # (Auto) 0.0 Abs Immat Gran (auto) 0.18 H Absolute Neuts (auto) 13.6 H Absolute Nucleated RBC 0.000 Nucleated RBC % 0.0 Sodium 139 Potassium 4.3 Chloride 108 H Carbon Dioxide 28 Anion Gap 3 L BUN 27 H Creatinine 0.70 Estim Creat Clear Calc 49 Estimated GFR > 60 Glucose 138 H Calcium 8.8 Total Bilirubin 0.5 AST 25 ALT 17 Alkaline Phosphatase 66 Troponin I < 0.012 Total Protein 6.0 L Albumin 3.2 L Triglycerides 81 Cholesterol 158 LDL Cholesterol Direct 77 HDL Direct 41 TSH (Reflex) 0.319 L Free T4 1.82 Total T3 0.78 L Quality VTE Prophylaxis VTE prophylaxis: pharmacologic ordered
--- NOTE | 2024-04-27 12:02 | P.PNCA_ITS ---
Progress Note: A&P Assessment and Plan (1) Atrial fibrillation: Qualifiers: Atrial fibrillation type: paroxysmal Qualified Code(s): I48.0 - Paroxysmal atrial fibrillation Code(s): I48.91 - Unspecified atrial fibrillation Status: Acute Assessment and Plan: Currently is maintained in sinus rhythm with occasional PAC not having any further AFib It may very well be that her symptoms of AFib or shortness of breath that she had had prior to her admission Family has been instructed to check her pulse if she becomes short of breath and look for irregularity OKAY TO SWITCH HER TO CARDIZEM CD 120 THIS IS LOCATED TO TODAY AND DISCONTINUE THE DILTIAZEM 30 Q 6 WOULD COMPLETELY DISCONTINUE THE AMLODIPINE 10 MG A DAY With regards to anticoagulation she is currently on Lovenox 60 q.12h Okay to go ahead and start her on Eliquis 5 mg b.i.d. She has a lung nodule that needs workup at [facility] and can come off of Eliquis for the lung biopsy at that time (2) Cardiac murmur: Code(s): R01.1 - Cardiac murmur, unspecified Status: Acute Assessment and Plan: Echocardiogram performed during the hospitalization demonstrated some valvular regurgitations which are likely responsible for her murmur ideally would like to maintain her on afterload reduction with losartan however this can be discontinued and held in the setting of a lowish blood pressure we may be able to start later on as an outpatient in incremental increase the dosage (3) Squamous cell carcinoma of lung: Qualifiers: Laterality: right Qualified Code(s): C34.91 - Malignant neoplasm of unspecified part of right bronchus or lung Code(s): C34.90 - Malignant neoplasm of unspecified part of unspecified bronchus or lung Status: Acute Assessment and Plan: Known history of lung cancer with prior lobectomy will be followed up at [facility] for recurrent pulmonary nodule okay to go ahead and initiate Eliquis 5 b.i.d. which will need to be held in the timeframe of having a pulmonary nodule biopsy done and can be planned head for (4) Essential hypertension: Code(s): I10 - Essential (primary) hypertension Status: Acute Assessment and Plan: Discontinue her amlodipine 10 mg a day and transition her to Cardizem CD 120 on discharge diltiazem will provide adequate blood pressure control as well as rhythm management for her atrial fibrillation Tentatively holding the losartan as her blood pressure was soft during hospitalization (5) Bronchopneumonia: Code(s): J18.0 - Bronchopneumonia, unspecified organism Status: Acute Assessment and Plan: Antibiotics which have been prescribed and nebulizer treatments per hospital service Plan Recommendations noted above DC amlodipine Transition to diltiazem CD 120 daily DC diltiazem 30 Q 6 Eliquis 5 mg b.i.d. Follow-up for tele monitor for 2 weeks evaluate for recurrence of atrial fibrillation Subjective Date/time seen: 04/27/24 12:02 Interval history: She denies episodes of chest pains or shortness of breath telemetry shows that she remains in sinus rhythm there have been sinus with PACs Exam Narrative: In no distress sitting upright in bed and speaking full sentences no chest pains family is at bedside Resp: Auscultation: other (Occasional coarse breath sound with no wheezes or rhonchi noted) Cardio: Other: S1-S2 regular rhythm there is a 2/6 systolic murmur noted telemetry demonstrates her to be in sinus rhythm with occasional PACs Extrem: Other: No edema Objective Data Vital Signs Vital Signs: Vital Signs - 24 hr 04/26/24 12:30 04/26/24 14:00 04/26/24 15:44 Temperature 36.6 C Pulse Rate 75 73 Respiratory Rate 24 H Blood Pressure 107/59 L Pulse Oximetry 98 99 Oxygen Delivery Nasal Cannula Oxygen Flow Rate 4 Fraction of Inspired Oxygen 04/26/24 16:00 04/26/24 16:00 04/26/24 18:00 Temperature Pulse Rate 78 70 Respiratory Rate Blood Pressure Pulse Oximetry 98 Oxygen Delivery Nasal Cannula Oxygen Flow Rate 3 Fraction of Inspired Oxygen 04/26/24 19:58 04/26/24 20:00 04/26/24 21:45 Temperature 36.4 C Pulse Rate 81 67 Respiratory Rate 22 H Blood Pressure 126/67 Pulse Oximetry 94 94 Oxygen Delivery Nasal Cannula Oxygen Flow Rate 3 Fraction of Inspired Oxygen 04/26/24 22:00 04/26/24 23:54 04/27/24 00:00 Temperature 36.7 C Pulse Rate 67 58 L 58 L Respiratory Rate 20 Blood Pressure 125/55 L Pulse Oximetry 97 Oxygen Delivery Oxygen Flow Rate Fraction of Inspired Oxygen 04/27/24 00:00 04/27/24 02:00 04/27/24 04:00 Temperature Pulse Rate 57 L 57 L Respiratory Rate Blood Pressure Pulse Oximetry 98 Oxygen Delivery Nasal Cannula Oxygen Flow Rate 3 Fraction of Inspired Oxygen 04/27/24 04:00 04/27/24 04:32 04/27/24 06:00 Temperature 36.3 C L Pulse Rate 57 L 54 L Respiratory Rate 24 H Blood Pressure 127/62 Pulse Oximetry 97 97 Oxygen Delivery Nasal Cannula Oxygen Flow Rate 3 Fraction of Inspired Oxygen 04/27/24 08:00 04/27/24 08:00 04/27/24 08:00 Temperature 36.4 C Pulse Rate 58 L 58 L 60 Respiratory Rate 16 16 Blood Pressure 115/65 Pulse Oximetry 98 93 Oxygen Delivery Nasal Cannula Oxygen Flow Rate 3 Fraction of Inspired Oxygen 32 04/27/24 08:10 04/27/24 10:00 Temperature Pulse Rate 55 L Respiratory Rate Blood Pressure Pulse Oximetry 93 Oxygen Delivery Nasal Cannula Oxygen Flow Rate 3 Fraction of Inspired Oxygen 32 Intake/Output Intake/Output: Intake & Output 04/24/24 04/25/24 04/26/24 04/27/24 23:59 23:59 23:59 23:59 Intake Total 1054.5 390 Output Total 400 400 Balance 654.5 -10 Meds/Results Medications: Active Medications Generic Name Dose Route Start Last Admin Trade Name Freq PRN Reason Stop Dose Admin Acetaminophen 650 mg 04/26/24 06:14 Acetaminophen 325 Mg Tablet PO Q4H PRN Mild Pain (1-3) or Fever Albuterol 2 puff 04/26/24 09:57 Albuterol Sulfate (*Sp) Aerosol 1 Puff INHALATION Q4-6H PRN shortness of breath or wheezing Alendronate Sodium 70 mg 05/02/24 06:30 Alendronate Sodium 70 Mg Tablet BY MOUTH Fr@0630 [facility] Aspirin 81 mg 04/26/24 10:30 04/27/24 07:56 Aspirin 81 Mg Enteric Tablet PO 81 mg DAILY [facility] Administration Calcium Carbonate 1,000 mg 04/26/24 10:30 04/27/24 07:55 Calcium Carbonate (Oscal) 500 Mg Tablet PO 1,000 mg QAM [facility] Administration Diltiazem HCl 30 mg 04/26/24 12:00 04/27/24 11:23 Diltiazem Hcl 30 Mg Tablet PO 30 mg Q6HR [facility] Administration Enoxaparin Sodium 60 mg 04/26/24 11:00 04/27/24 11:23 Enoxaparin 60 Mg/0.6 Ml Syringe SUB-Q 60 mg Q12H CHENG Administration Famotidine 20 mg 04/26/24 10:30 04/27/24 07:55 Famotidine 20 Mg Tablet BY MOUTH 20 mg DAILY CHENG Administration Fish Oil 1 gm 04/26/24 10:30 04/27/24 07:56 [place] 3 Polyunsat Fatty Acids 1 Gm Cap PO 1 gm DAILY CHENG Administration Folic Acid 1 mg 04/26/24 10:30 04/27/24 07:56 Folic Acid 1 Mg Tablet PO 1 mg DAILY CHENG Administration Guaifenesin 600 mg 04/26/24 21:00 04/27/24 07:56 Guaifenesin 12 Hr 600 Mg Tabcr PO 05/03/24 20:59 600 mg Q12HR CHENG Administration Ceftriaxone Sodium 1 gm in 50 mls @ 100 mls/hr 04/27/24 06:00 04/27/24 06:50 Rocephin 1 Gm/Ns 50 Ml IVPB Infused Q24H CHENG Infusion Azithromycin 500 mg in 250 mls @ 250 mls/hr 04/27/24 06:00 04/27/24 06:50 Zithromax IVPB 250 mls/hr Q24H CHENG Administration Methotrexate 12.5 mg 04/26/24 10:30 04/26/24 10:45 Methotrexate 2.5 Mg Tab (*Chemo) BY MOUTH 12.5 mg Sa@0900 CHENG Administration Umeclidinium/Vilanterol 1 puff 04/26/24 10:30 04/27/24 08:11 Umeclidinium/Vilanterol 62.5-25 Mcg Ellipta INHALATION Not Given DAILYRT [facility] Radiology Results: ITS Impressions Chest X-Ray 04/25/24 16:56 IMPRESSION: 1. Opacities in the left perihilar region and bilateral lower lung zones which could represent atelectasis or pneumonia. 2. Cardiomegaly. 3. Status post right upper lobectomy. Chest CTA 04/26/24 12:03 IMPRESSION: No evidence of pulmonary embolism Patchy probable consolidation of the left lower lobe suggesting pneumonia. 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 Cardiomegaly Labs Labs: Laboratory Results - last 24 hr 04/26/24 04/27/24 12:02 04:34 WBC 16.5 H RBC 3.26 L Hgb 10.6 L Hct 33.5 L MCV 102.8 H MCH 32.5 MCHC 31.6 L RDW 15.1 H Plt Count 237 MPV 10.4 Immature Gran % (Auto) 1.1 H Neut % (Auto) 82.6 H Lymph % (Auto) 5.9 L [place] % (Auto) 10.2 H Eos % (Auto) 0.0 Baso % (Auto) 0.2 Lymph # (Auto) 0.98 [place] # (Auto) 1.7 H Eos # (Auto) 0.0 Baso # (Auto) 0.0 Abs Immat Gran (auto) 0.18 H Absolute Neuts (auto) 13.6 H Absolute Nucleated RBC 0.000 Nucleated RBC % 0.0 Sodium 139 Potassium 4.3 Chloride 108 H Carbon Dioxide 28 Anion Gap 3 L BUN 27 H Creatinine 0.70 Estim Creat Clear Calc 49 Estimated GFR > 60 Glucose 138 H Calcium 8.8 Total Bilirubin 0.5 AST 25 ALT 17 Alkaline Phosphatase 66 Troponin I < 0.012 Total Protein 6.0 L Albumin 3.2 L Triglycerides 81 Cholesterol 158 LDL Cholesterol Direct 77 HDL Direct 41 TSH (Reflex) 0.319 L Free T4 1.82 Total T3 0.78 L Imaging Radiologist's impression: Echocardiogram from this hospitalization Summary 1. Normal LV size and presereved LV systolic function with sigmoid shaped IVS. 2. Normal RV size and function. 3. Mild TR with mod PHTN. 4. Mild AR with sclerotic AV. Left Ventricle Ventricular septum is sigmoid shaped. Left ventricular chamber dimension is normal. Left ventricular systolic function is normal, estimated at 65-70%. Left ventricular septal wall motion is normal.
[2024-04-27] MEDS: ACTUATION MIST INHALATION (13:09)
[2024-04-27] MEDS: TIOTROPIUM OLODATEROL INHALATION (13:09)
[2024-04-27] MEDS: APIXABAN 5 MG TABLET PO (20:53)
[2024-04-28] VITALS (21 sets, daily range): BP systolic 123–144; BP diastolic 59–76; PULSE 54–99; RESP 18–32; TEMP 36.7–37.1; O2SAT 95–99
--- NOTE | 2024-04-28 03:04 | PC.NURSE ---
Patient converted back to Afib from SR/SB at approximately 0158.
[2024-04-28 05:04] LABS: Basophils Percent Auto 0.3 % (0.2-1.2); Eosinophils Absolute Auto 0.2 K/mm3 (0-0.3); Eosinophils Percent Auto 2.2 % (0-4.4); Hematocrit 33.2 % (37.0-47.0); Hemoglobin 10.4 g/dL (12.0-15.0); Immature Granulocyte Absolute 0.07 K/mm3 (0.00-0.031); Immature Granulocyte Percent A 0.7 % (0-0.5); Mean Corpuscular HGB Conc 31.3 g/dl (32-36); Mean Corpuscular Hemoglobin 32.5 pg (26-34); Mean Corpuscular Volume 103.8 fl (80-100); Mean Platelet Volume 10.4 fl (7.4-10.4); Monocytes Absolute Auto 0.8 K/mm3 (0.1-0.6); Monocytes Percent Auto 8.4 % (2.6-8.5); Neutrophils Absolute Auto 7.9 K/mm3 (1.3-6.7); Neutrophils Percent Auto 78.4 % (45.5-73.1); Platelet Count Result 234 k/mm3 (150-375); Red Cell Distribution Width 15.1 % (11.5-14.5)
[2024-04-28 05:22] LABS: Alanine Aminotransferase 17 U/L (6-35); Albumin Level 2.7 g/dL (3.5-5.1); Alkaline Phosphatase 58 U/L (38-126); Anion Gap 1 mmol/L (4-12); Aspartate Amino Transferase 34 U/L (14-36); Bilirubin,Total 0.4 mg/dL (0.2-1.3); Blood Urea Nitrogen 21 mg/dL (7-17); Carbon Dioxide 29 mmol/L (22-30); Chloride 107 mmol/L (98-107); Estimated CRCL calculation 44 ml/min; Estimated Glomerular Filt Rate > 60; Glucose 98 mg/dL (65-110); Potassium 3.6 mmol/L (3.4-5.0); Sodium 137 mmol/L (137-145)
[2024-04-28] MEDS: AZITHROMYCIN 500 MG/NS 250 ML 500 MG/250 ML BAG 250 MG IVPB (08:37)
[2024-04-28] MEDS: FOLIC ACID 1 MG TABLET PO (08:38)
[2024-04-28] MEDS: guaiFENesin 12 HR 600 MG TABCR PO ×2 (08:38→21:20)
[2024-04-28] MEDS: OMEGA 3 POLYUNSAT FATTY ACIDS 1 GM CAP PO (08:38)
[2024-04-28] MEDS: ASPIRIN 81 MG ENTERIC TABLET PO (08:38)
[2024-04-28] MEDS: FAMOTIDINE 20 MG TABLET BY MOUTH (08:38)
[2024-04-28] MEDS: CALCIUM CARBONATE (OSCAL) 500 MG TABLET 1000 MG PO (08:38)
[2024-04-28] MEDS: APIXABAN 5 MG TABLET PO ×2 (08:38→21:20)
[2024-04-28] MEDS: dilTIAZem HCL CD 120 MG CAP.24HR PO (08:38)
[2024-04-28] MEDS: TIOTROPIUM OLODATEROL INHALATION (08:58)
[2024-04-28] MEDS: ACTUATION MIST INHALATION (08:58)
--- NOTE | 2024-04-28 10:11 | P.PNIM_ITS ---
Progress Note: A&P Assessment and Plan (1) Atrial fibrillation: Qualifiers: Atrial fibrillation type: paroxysmal Qualified Code(s): I48.0 - Paroxysmal atrial fibrillation Code(s): I48.91 - Unspecified atrial fibrillation Status: Acute Assessment and Plan: * New onset Atrial fibrillation * Diltiazem CD 120 mg PO daily. * Telemetry * Eliquis 5 mg PO BID. * Cardiology consulted, appreciate recommendations. * Echocardiogram showed: Summary 1. Normal LV size and presereved LV systolic function with sigmoid shaped IVS. 2. Normal RV size and function. 3. Mild TR with mod PHTN. 4. Mild AR with sclerotic AV. Left Ventricle Ventricular septum is sigmoid shaped. Left ventricular chamber dimension is normal. Left ventricular systolic function is normal, estimated at 65-70%. Left ventricular septal wall motion is normal. * Trop <0.012 x 2. * Lipid panel: Triglycerides 81, Cholesterol 158, LDL 77, HDL 41. * TSH 0.319, Free T4 1.82, Total T3 0.78. (2) Squamous cell carcinoma of lung: Qualifiers: Laterality: right Qualified Code(s): C34.91 - Malignant neoplasm of unspecified part of right bronchus or lung Code(s): C34.90 - Malignant neoplasm of unspecified part of unspecified bronchus or lung Status: Acute Assessment and Plan: * Stopped smoking 3 years ago * history of lung cancer with prior right upper lobe lobectomy. * Follows with oncology at [facility]. (3) Bronchopneumonia: Code(s): J18.0 - Bronchopneumonia, unspecified organism Status: Acute Assessment and Plan: * Azithromycin 500 mg oral and Ceftriaxone 1 gram IVPB daily. * oxygen supplementation * Albuterol 2 puffs q 4-6 PRN. * Blood cultures no growth to date. * Afebrile. * Guaifenesin 600 mg PO q 12. * Chest CTA showed: (results reviewed with patient and family) * IMPRESSION: No evidence of pulmonary embolism Patchy probable consolidation of the left lower lobe suggesting pneumonia. 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 * Anoro 1 puff daily (5) Cardiac murmur: Code(s): R01.1 - Cardiac murmur, unspecified Status: Acute Assessment and Plan: * Cardiology following. (6) Essential hypertension: Code(s): I10 - Essential (primary) hypertension Status: Acute Assessment and Plan: * blood pressure soft at 144/71. Patient was taking Amlodipine and Losartan. * Hold Losartan. * Discontinue Amlodipine per Cardiology. 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 * Patient and family aware. * Monitor. Subjective Date/time seen: 04/28/24 10:11 Interval history: Patient reports feeling a little better today but still short of breath with activity. Patient denies chest pain, palpitations, headache, dizziness, nausea, or vomiting. Patient has not had a bowel movement since Sunday and would like Miralax. Review of Systems Review of Systems: All systems reviewed & are unremarkable except as noted in HPI and below Exam Const: General: comfortable and no acute distress Resp: Other: Slightly diminished coarse RLL. Improved air movement. Cardio: Rate: regular rate Rhythm: regular rhythm Other: Telemetry SR 88 GI: GI Palp: Yes Soft to palpation Auscultation: normal bowel sounds Skin: General skin exam: no rashes or lesions noted Neuro: Speech: normal speech Extrem: General: no pedal edema Psych: Mental Status: mental status grossly normal Affect: normal affect Objective Data Vital Signs Vital Signs: Vital Signs - 24 hr 04/27/24 12:00 04/27/24 12:00 04/27/24 12:00 Temperature 97.5 F L Pulse Rate 64 64 67 Respiratory Rate 24 H 24 H Blood Pressure 121/57 L Pulse Oximetry 100 100 Oxygen Delivery Nasal Cannula Oxygen Flow Rate 3 Fraction of Inspired Oxygen 32 04/27/24 14:00 04/27/24 16:00 04/27/24 16:00 Temperature 97.8 F Pulse Rate 59 L 60 78 Respiratory Rate 28 H Blood Pressure 125/59 L Pulse Oximetry 99 Oxygen Delivery Oxygen Flow Rate Fraction of Inspired Oxygen 04/27/24 16:00 04/27/24 18:00 04/27/24 20:00 Temperature Pulse Rate 60 61 61 Respiratory Rate 28 H Blood Pressure Pulse Oximetry 99 Oxygen Delivery Nasal Cannula Oxygen Flow Rate 3 Fraction of Inspired Oxygen 32 04/27/24 20:04 04/27/24 20:45 04/27/24 22:00 Temperature 98.0 F Pulse Rate 66 85 Respiratory Rate 26 H Blood Pressure 115/64 Pulse Oximetry 98 98 Oxygen Delivery Nasal Cannula Oxygen Flow Rate 3 Fraction of Inspired Oxygen 04/27/24 23:07 04/28/24 00:00 04/28/24 00:10 Temperature 98.1 F Pulse Rate 69 54 L Respiratory Rate 24 H Blood Pressure 127/73 Pulse Oximetry 95 95 Oxygen Delivery Nasal Cannula Oxygen Flow Rate 3 Fraction of Inspired Oxygen 04/28/24 02:00 04/28/24 03:59 04/28/24 04:00 Temperature 98.0 F Pulse Rate 64 89 99 Respiratory Rate 26 H Blood Pressure 127/76 Pulse Oximetry 95 Oxygen Delivery Oxygen Flow Rate Fraction of Inspired Oxygen 04/28/24 04:00 04/28/24 06:00 04/28/24 06:46 Temperature 98.0 F Pulse Rate 87 95 Respiratory Rate 24 H Blood Pressure 123/68 Pulse Oximetry 95 97 Oxygen Delivery Nasal Cannula Oxygen Flow Rate 3 Fraction of Inspired Oxygen 04/28/24 08:25 04/28/24 08:55 04/28/24 08:55 Temperature Pulse Rate 81 85 85 Respiratory Rate 20 20 Blood Pressure Pulse Oximetry 95 Oxygen Delivery Nasal Cannula Oxygen Flow Rate 3 Fraction of Inspired Oxygen Intake/Output Intake/Output: Intake & Output 04/25/24 04/26/24 04/27/24 04/28/24 23:59 23:59 23:59 23:59 Intake Total 1054.5 1320 490 Output Total 400 1050 Balance 654.5 270 490 Meds/Results Medications: Active Medications Generic Name Dose Route Start Last Admin Trade Name Freq PRN Reason Stop Dose Admin Acetaminophen 650 mg 04/26/24 06:14 Acetaminophen 325 Mg Tablet PO Q4H PRN Mild Pain (1-3) or Fever Albuterol 2 puff 04/26/24 09:57 Albuterol Sulfate (*Sp) Aerosol 1 Puff INHALATION Q4-6H PRN shortness of breath or wheezing Alendronate Sodium 70 mg 05/02/24 06:30 Alendronate Sodium 70 Mg Tablet BY MOUTH Fr@0630 CHENG Apixaban 5 mg 04/27/24 21:00 04/28/24 08:38 Apixaban 5 Mg Tablet PO 5 mg Q12HR CHENG Administration Aspirin 81 mg 04/26/24 10:30 04/28/24 08:38 Aspirin 81 Mg Enteric Tablet PO 81 mg DAILY CHENG Administration Calcium Carbonate 1,000 mg 04/26/24 10:30 04/28/24 08:38 Calcium Carbonate (Oscal) 500 Mg Tablet PO 1,000 mg QAM CHENG Administration Diltiazem HCl 120 mg 04/28/24 09:00 04/28/24 08:38 Diltiazem Hcl Cd 120 Mg Cap.24hr PO 120 mg QAM CHENG Administration Famotidine 20 mg 04/26/24 10:30 04/28/24 08:38 Famotidine 20 Mg Tablet BY MOUTH 20 mg DAILY CHENG Administration Fish Oil 1 gm 04/26/24 10:30 04/28/24 08:38 [place] 3 Polyunsat Fatty Acids 1 Gm Cap PO 1 gm DAILY CHENG Administration Folic Acid 1 mg 04/26/24 10:30 04/28/24 08:38 Folic Acid 1 Mg Tablet PO 1 mg DAILY CHENG Administration Guaifenesin 600 mg 04/26/24 21:00 04/28/24 08:38 Guaifenesin 12 Hr 600 Mg Tabcr PO 05/03/24 20:59 600 mg Q12HR CHENG Administration Ceftriaxone Sodium 1 gm in 50 mls @ 100 mls/hr 04/27/24 06:00 04/28/24 08:36 Rocephin 1 Gm/Ns 50 Ml IVPB 100 mls/hr Q24H CHENG Administration Azithromycin 500 mg in 250 mls @ 250 mls/hr 04/27/24 06:00 04/28/24 08:37 Zithromax IVPB 250 mls/hr Q24H CHENG Administration Methotrexate 12.5 mg 04/26/24 10:30 04/26/24 10:45 Methotrexate 2.5 Mg Tab (*Chemo) BY MOUTH 12.5 mg Sa@0900 CHENG Administration * Home Med * 2 each 04/27/24 12:45 04/28/24 08:58 Tiotropium- INHALATION 05/27/24 12:44 2 each Olodaterol 2.5-2.5 DAILYRT CHENG Administration Mcg/Actuation Mist ( Stiolto) Radiology Results: ITS Impressions Chest X-Ray 04/25/24 16:56 IMPRESSION: 1. Opacities in the left perihilar region and bilateral lower lung zones which could represent atelectasis or pneumonia. 2. Cardiomegaly. 3. Status post right upper lobectomy. Chest CTA 04/26/24 12:03 IMPRESSION: No evidence of pulmonary embolism Patchy probable consolidation of the left lower lobe suggesting pneumonia. 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 Cardiomegaly Labs Labs: Laboratory Results - last 24 hr 04/28/24 04:00 WBC 10.0 RBC 3.20 L Hgb 10.4 L Hct 33.2 L MCV 103.8 H MCH 32.5 MCHC 31.3 L RDW 15.1 H Plt Count 234 MPV 10.4 Immature Gran % (Auto) 0.7 H Neut % (Auto) 78.4 H Lymph % (Auto) 10.0 L [place] % (Auto) 8.4 Eos % (Auto) 2.2 Baso % (Auto) 0.3 Lymph # (Auto) 1.00 [place] # (Auto) 0.8 H Eos # (Auto) 0.2 Baso # (Auto) 0.0 Abs Immat Gran (auto) 0.07 H Absolute Neuts (auto) 7.9 H Absolute Nucleated RBC 0.000 Nucleated RBC % 0.0 Sodium 137 Potassium 3.6 Chloride 107 Carbon Dioxide 29 Anion Gap 1 L BUN 21 H Creatinine 0.80 Estim Creat Clear Calc 44 Estimated GFR > 60 Glucose 98 Calcium 8.0 L Total Bilirubin 0.4 AST 34 ALT 17 Alkaline Phosphatase 58 Total Protein 5.0 L Albumin 2.7 L Quality VTE Prophylaxis VTE prophylaxis: pharmacologic ordered
[2024-04-28] MEDS: polyethylene glycoL 3350 17 GM POWD.PACK PO (11:51)
--- NOTE | 2024-04-28 12:03 | P.PNCA_ITS ---
Progress Note: A&P Assessment and Plan (1) Atrial fibrillation: Qualifiers: Atrial fibrillation type: paroxysmal Qualified Code(s): I48.0 - Paroxysmal atrial fibrillation Code(s): I48.91 - Unspecified atrial fibrillation Status: Acute Assessment and Plan: * New onset Atrial fibrillation * On Diltiazem CD 120 mg PO daily. * Continue Eliquis 5 mg PO BID. * Echocardiogram showed: Summary 1. Normal LV size and preserved LV systolic function with sigmoid shaped IVS. 2. Normal RV size and function. 3. Mild TR with mod PHTN. 4. Mild AR with sclerotic AV. Left Ventricle Ventricular septum is sigmoid shaped. Left ventricular chamber dimension is normal. Left ventricular systolic function is normal, estimated at 65-70%. Left ventricular septal wall motion is normal. * Trop <0.012 x 2. * Lipid panel: Triglycerides 81, Cholesterol 158, LDL 77, HDL 41. * TSH 0.319, Free T4 1.82, Total T3 0.78. (2) Squamous cell carcinoma of lung: Qualifiers: Laterality: right Qualified Code(s): C34.91 - Malignant neoplasm of unspecified part of right bronchus or lung Code(s): C34.90 - Malignant neoplasm of unspecified part of unspecified bronchus or lung Status: Acute Assessment and Plan: * Stopped smoking 3 years ago * history of lung cancer with prior right upper lobe lobectomy. * Follows with oncology at [facility]. (3) Bronchopneumonia: Code(s): J18.0 - Bronchopneumonia, unspecified organism Status: Acute Assessment and Plan: Patchy probable consolidation of the left lower lobe suggesting pneumonia. Recommend correlation with clinical symptoms and CT follow-up after appropriate treatment to exclude any underlying pulmonary mass lesion Left hilar mild adenopathy which may be reactive; as mentioned, follow-up CT is encouraged to exclude lung malignancy and metastatic adenopathy Emphysema Chronic interstitial fibrotic changes involving particularly the lung bases (4) Emphysema lung: Code(s): J43.9 - Emphysema, unspecified Status: Acute Assessment and Plan: * Albuterol PRN. 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 * Patient and family aware. * Monitor. Plan Continue present treatment as underlined from Cardiology standpoint. From Cardiology standpoint patient can be discharged home when okay with primary Will need to continue diltiazem and Eliquis at the time of discharge Subjective Date/time seen: 04/28/24 12:03 The patient was seen examined by me in her room in the presence of her son. The pertinent information reviewed Note summary Continue present treatment as underlined from Cardiology standpoint. From Cardiology standpoint patient can be discharged home when okay with primary Will need to continue diltiazem and Eliquis at the time of discharge Interval history: Patient was seen and examined in the presence of her son. Patient resting comfortably. Amount of oxygen needed is less compared to admission. Review of Systems Review of Systems: Shortness of breath markedly improved fatigue improved. Denies chest pain. All systems reviewed & are unremarkable except as noted in HPI and below (HPI) Exam Narrative: GENERAL: Well-appearing, well-nourished, and in no acute distress. HEAD: Normocephalic, atraumatic. EYES: PERRLA and EOMI. ENT: Nares clear, no rhinorrhea or epistaxis. Mucous membranes moist. NECK: Supple. CHEST: Mildly prolonged expiration no wheezing HEART: Regular rate and rhythm. Mild systolic murmur present ABDOMEN: Soft, nontender, nondistended, normal active bowel sounds. EXTREMITIES: Normal range of motion. No edema. SKIN: Warm, dry, no rash. NEURO: No focal deficits. Alert and oriented x3. PSYCH: Normal mood and affect. Objective Data Vital Signs Vital Signs: Vital Signs - 24 hr 04/27/24 14:00 04/27/24 16:00 04/27/24 16:00 Temperature 36.6 C Pulse Rate 59 L 60 78 Respiratory Rate 28 H Blood Pressure 125/59 L Pulse Oximetry 99 Oxygen Delivery Oxygen Flow Rate Fraction of Inspired Oxygen 04/27/24 16:00 04/27/24 18:00 04/27/24 20:00 Temperature Pulse Rate 60 61 61 Respiratory Rate 28 H Blood Pressure Pulse Oximetry 99 Oxygen Delivery Nasal Cannula Oxygen Flow Rate 3 Fraction of Inspired Oxygen 32 04/27/24 20:04 04/27/24 20:45 04/27/24 22:00 Temperature 36.7 C Pulse Rate 66 85 Respiratory Rate 26 H Blood Pressure 115/64 Pulse Oximetry 98 98 Oxygen Delivery Nasal Cannula Oxygen Flow Rate 3 Fraction of Inspired Oxygen 04/27/24 23:07 04/28/24 00:00 04/28/24 00:10 Temperature 36.7 C Pulse Rate 69 54 L Respiratory Rate 24 H Blood Pressure 127/73 Pulse Oximetry 95 95 Oxygen Delivery Nasal Cannula Oxygen Flow Rate 3 Fraction of Inspired Oxygen 04/28/24 02:00 04/28/24 03:59 04/28/24 04:00 Temperature 36.7 C Pulse Rate 64 89 99 Respiratory Rate 26 H Blood Pressure 127/76 Pulse Oximetry 95 Oxygen Delivery Oxygen Flow Rate Fraction of Inspired Oxygen 04/28/24 04:00 04/28/24 06:00 04/28/24 06:46 Temperature 36.7 C Pulse Rate 87 95 Respiratory Rate 24 H Blood Pressure 123/68 Pulse Oximetry 95 97 Oxygen Delivery Nasal Cannula Oxygen Flow Rate 3 Fraction of Inspired Oxygen 04/28/24 08:25 04/28/24 08:55 04/28/24 08:55 Temperature Pulse Rate 81 85 85 Respiratory Rate 20 20 Blood Pressure Pulse Oximetry 95 Oxygen Delivery Nasal Cannula Oxygen Flow Rate 3 Fraction of Inspired Oxygen 04/28/24 10:00 Temperature Pulse Rate 67 Respiratory Rate Blood Pressure Pulse Oximetry Oxygen Delivery Oxygen Flow Rate Fraction of Inspired Oxygen Intake/Output Intake/Output: Intake & Output 04/25/24 04/26/24 04/27/24 04/28/24 23:59 23:59 23:59 23:59 Intake Total 1054.5 1320 790 Output Total 400 1050 Balance 654.5 270 790 Meds/Results Medications: Active Medications Generic Name Dose Route Start Last Admin Trade Name Freq PRN Reason Stop Dose Admin Acetaminophen 650 mg 04/26/24 06:14 Acetaminophen 325 Mg Tablet PO Q4H PRN Mild Pain (1-3) or Fever Albuterol 2 puff 04/26/24 09:57 Albuterol Sulfate (*Sp) Aerosol 1 Puff INHALATION Q4-6H PRN shortness of breath or wheezing Alendronate Sodium 70 mg 05/02/24 06:30 Alendronate Sodium 70 Mg Tablet BY MOUTH Fr@0630 CHENG Apixaban 5 mg 04/27/24 21:00 04/28/24 08:38 Apixaban 5 Mg Tablet PO 5 mg Q12HR CHENG Administration Aspirin 81 mg 04/26/24 10:30 04/28/24 08:38 Aspirin 81 Mg Enteric Tablet PO 81 mg DAILY CHENG Administration Azithromycin 500 mg 04/29/24 09:00 Azithromycin 250 Mg Tablet PO 04/30/24 09:01 DAILY CHENG Calcium Carbonate 1,000 mg 04/26/24 10:30 04/28/24 08:38 Calcium Carbonate (Oscal) 500 Mg Tablet PO 1,000 mg QAM CHENG Administration Diltiazem HCl 120 mg 04/28/24 09:00 04/28/24 08:38 Diltiazem Hcl Cd 120 Mg Cap.24hr PO 120 mg QAM CHENG Administration Famotidine 20 mg 04/26/24 10:30 04/28/24 08:38 Famotidine 20 Mg Tablet BY MOUTH 20 mg DAILY CHENG Administration Fish Oil 1 gm 04/26/24 10:30 04/28/24 08:38 [place] 3 Polyunsat Fatty Acids 1 Gm Cap PO 1 gm DAILY CHENG Administration Folic Acid 1 mg 04/26/24 10:30 04/28/24 08:38 Folic Acid 1 Mg Tablet PO 1 mg DAILY CHENG Administration Guaifenesin 600 mg 04/26/24 21:00 04/28/24 08:38 Guaifenesin 12 Hr 600 Mg Tabcr PO 05/03/24 20:59 600 mg Q12HR CHENG Administration Ceftriaxone Sodium 1 gm in 50 mls @ 100 mls/hr 04/27/24 06:00 04/28/24 09:10 Rocephin 1 Gm/Ns 50 Ml IVPB Infused Q24H CHENG Infusion Methotrexate 12.5 mg 04/26/24 10:30 04/26/24 10:45 Methotrexate 2.5 Mg Tab (*Chemo) BY MOUTH 12.5 mg Sa@0900 CHENG Administration * Home Med * 2 each 04/27/24 12:45 04/28/24 08:58 Tiotropium- INHALATION 05/27/24 12:44 2 each Olodaterol 2.5-2.5 DAILYRT CHENG Administration Mcg/Actuation Mist ( Stiolto) Polyethylene Glycol 17 gm 04/28/24 10:15 04/28/24 11:51 Polyethylene Glycol 3350 17 Gm Powd.Pack PO 17 gm QAM CHENG Administration Radiology Results: ITS Impressions Chest X-Ray 04/25/24 16:56 IMPRESSION: 1. Opacities in the left perihilar region and bilateral lower lung zones which could represent atelectasis or pneumonia. 2. Cardiomegaly. 3. Status post right upper lobectomy. Chest CTA 04/26/24 12:03 IMPRESSION: No evidence of pulmonary embolism Patchy probable consolidation of the left lower lobe suggesting pneumonia. 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 Cardiomegaly Labs Labs: Laboratory Results - last 24 hr 04/28/24 04:00 WBC 10.0 RBC 3.20 L Hgb 10.4 L Hct 33.2 L MCV 103.8 H MCH 32.5 MCHC 31.3 L RDW 15.1 H Plt Count 234 MPV 10.4 Immature Gran % (Auto) 0.7 H Neut % (Auto) 78.4 H Lymph % (Auto) 10.0 L [place] % (Auto) 8.4 Eos % (Auto) 2.2 Baso % (Auto) 0.3 Lymph # (Auto) 1.00 [place] # (Auto) 0.8 H Eos # (Auto) 0.2 Baso # (Auto) 0.0 Abs Immat Gran (auto) 0.07 H Absolute Neuts (auto) 7.9 H Absolute Nucleated RBC 0.000 Nucleated RBC % 0.0 Sodium 137 Potassium 3.6 Chloride 107 Carbon Dioxide 29 Anion Gap 1 L BUN 21 H Creatinine 0.80 Estim Creat Clear Calc 44 Estimated GFR > 60 Glucose 98 Calcium 8.0 L Total Bilirubin 0.4 AST 34 ALT 17 Alkaline Phosphatase 58 Total Protein 5.0 L Albumin 2.7 L
[2024-04-29] VITALS (21 sets, daily range): BP systolic 107–132; BP diastolic 62–75; PULSE 56–103; RESP 18–28; TEMP 36.8–37.3; O2SAT 87–100
[2024-04-29 05:30] LABS: Basophils Percent Auto 0.5 % (0.2-1.2); Eosinophils Absolute Auto 0.2 K/mm3 (0-0.3); Eosinophils Percent Auto 2.9 % (0-4.4); Hematocrit 32.6 % (37.0-47.0); Hemoglobin 10.2 g/dL (12.0-15.0); Immature Granulocyte Absolute 0.06 K/mm3 (0.00-0.031); Immature Granulocyte Percent A 0.8 % (0-0.5); Lymphocytes Absolute Auto 0.86 K/mm3 (0.9-3.2); Lymphocytes Percent Auto 11.4 % (18.3-44.2); Mean Corpuscular HGB Conc 31.3 g/dl (32-36); Mean Corpuscular Hemoglobin 32.4 pg (26-34); Mean Corpuscular Volume 103.5 fl (80-100); Mean Platelet Volume 10.3 fl (7.4-10.4); Monocytes Absolute Auto 0.5 K/mm3 (0.1-0.6); Neutrophils Absolute Auto 5.9 K/mm3 (1.3-6.7); Neutrophils Percent Auto 77.4 % (45.5-73.1); Platelet Count Result 224 k/mm3 (150-375); Red Blood Count 3.15 M/mm3 (4.2-5.4); Red Cell Distribution Width 15.1 % (11.5-14.5); White Blood Count 7.6 K/mm3 (4.5-10.0)
[2024-04-29 05:53] LABS: Alanine Aminotransferase 15 U/L (6-35); Albumin Level 2.7 g/dL (3.5-5.1); Alkaline Phosphatase 48 U/L (38-126); Anion Gap 2 mmol/L (4-12); Aspartate Amino Transferase 19 U/L (14-36); Bilirubin,Total 0.6 mg/dL (0.2-1.3); Blood Urea Nitrogen 15 mg/dL (7-17); Calcium 8.1 mg/dL (8.4-10.2); Carbon Dioxide 29 mmol/L (22-30); Chloride 103 mmol/L (98-107); Estimated CRCL calculation 57 ml/min; Estimated Glomerular Filt Rate > 60; Glucose 103 mg/dL (65-110); Potassium 3.8 mmol/L (3.4-5.0); Sodium 134 mmol/L (137-145)
[2024-04-29] MEDS: TIOTROPIUM OLODATEROL INHALATION (06:53)
[2024-04-29] MEDS: ACTUATION MIST INHALATION (06:53)
[2024-04-29] MEDS: AZITHROMYCIN 250 MG TABLET 500 MG PO (08:37)
[2024-04-29] MEDS: FAMOTIDINE 20 MG TABLET BY MOUTH (08:37)
[2024-04-29] MEDS: CALCIUM CARBONATE (OSCAL) 500 MG TABLET 1000 MG PO (08:37)
[2024-04-29] MEDS: FOLIC ACID 1 MG TABLET PO (08:37)
[2024-04-29] MEDS: dilTIAZem HCL CD 120 MG CAP.24HR PO (08:37)
[2024-04-29] MEDS: OMEGA 3 POLYUNSAT FATTY ACIDS 1 GM CAP PO (08:37)
[2024-04-29] MEDS: ASPIRIN 81 MG ENTERIC TABLET PO (08:37)
[2024-04-29] MEDS: guaiFENesin 12 HR 600 MG TABCR PO (08:37)
[2024-04-29] MEDS: polyethylene glycoL 3350 17 GM POWD.PACK PO (08:38)
[2024-04-29] MEDS: APIXABAN 5 MG TABLET PO (08:38)
--- NOTE | 2024-04-29 11:07 | P.DS_ITS ---
DS: Admitting Diagnosis Discharge Date 04/29/24 Admitting Diagnosis Shortness of breath and upper respiratory infection. DS: Discharge Diagnosis Discharge Diagnosis (1) Atrial fibrillation: Qualifiers: Atrial fibrillation type: paroxysmal Qualified Code(s): I48.0 - Paroxysmal atrial fibrillation Code(s): I48.91 - Unspecified atrial fibrillation Status: Acute (2) Squamous cell carcinoma of lung: Qualifiers: Laterality: right Qualified Code(s): C34.91 - Malignant neoplasm of unspecified part of right bronchus or lung Code(s): C34.90 - Malignant neoplasm of unspecified part of unspecified bronchus or lung Status: Acute (3) Bronchopneumonia: Code(s): J18.0 - Bronchopneumonia, unspecified organism Status: Acute (4) Emphysema lung: Code(s): J43.9 - Emphysema, unspecified Status: Acute (5) Aortic arch aneurysm: Code(s): I71.22 - Aneurysm of the aortic arch, without rupture Status: Acute (6) Cardiac murmur: Code(s): R01.1 - Cardiac murmur, unspecified Status: Acute (7) Essential hypertension: Code(s): I10 - Essential (primary) hypertension Status: Acute DS: Summary Hospital Course Hospital Course: Patient is a 73 year old female that came to the ER with cough, runny nose, shortness of breath. Patient with history of COPD, chronic respiratory failure, small cell carcinoma, and hypertension. Patient normally wear oxygen at 2 liters PRN but has been requiring 3-4 liters. Patient has had a RUL lobectomy and follows with oncologist Dr. Jay at [facility]. WBC 13.4, BNP 1920. COVID, FLU, and RSV negative. Blood cultures obtained. EKG Afib 82 QTc 429. Chest X-ray showed: IMPRESSION: 1. Opacities in the left perihilar region and bilateral lower lung zones which could represent atelectasis or pneumonia. 2. Cardiomegaly. 3. Status post right upper lobectomy. Chest CTA showed: MPRESSION: No evidence of pulmonary embolism Patchy probable consolidation of the left lower lobe suggesting pneumonia. 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, 3.1 cm. Cardiomegaly Patient also found to be going in and out of Atrial fibrillation which was new. Patient seen by Cardiology. Amlodipine discontinued. Patient started on Apixaban 5 mg PO q 12 and Diltiazem CD 120 mg PO q day. Echocardiogram showed: Summary 1. Normal LV size and presereved LV systolic function with sigmoid shaped IVS. 2. Normal RV size and function. 3. Mild TR with mod PHTN. 4. Mild AR with sclerotic AV. Left Ventricle Ventricular septum is sigmoid shaped. Left ventricular chamber dimension is normal. Left ventricular systolic function is normal, estimated at 65-70%. Left ventricular septal wall motion is normal. * Trop <0.012 x 2. * Lipid panel: Triglycerides 81, Cholesterol 158, LDL 77, HDL 41. Patient going home with a holter monitor and to FUP with Cardiology. Walking oxygen assessment: Oxygen at 2 liters at rest and 3 liters with activity. Patient treated for pneumonia with improvement. Patient transitioned from IV abx to oral abx. Blood cultures no growth. WBC improved to 7.6. Status at Discharge Functional status at discharge: independent ambulation Overall status at discharge: patient is progressing back to baseline Time Spent with Patient Time attestation: Total time spent providing and/or coordinating discharge services: Time spent: Greater than 30 minutes Exam Const: General: no acute distress Eyes: Sclera: sclerae normal Resp: Auscultation: diminished lung sounds Other: improved air movement. Cardio: Rate: regular rate Rhythm: regular rhythm GI: GI Palp: Yes Soft to palpation Auscultation: normal bowel sounds Extrem: General: no pedal edema Psych: Mental Status: mental status grossly normal Affect: normal affect DS: Data Data Completed and Pending Labs on day of discharge: Labs from last 24 hours 04/29/24 04:41 WBC 7.6 RBC 3.15 L Hgb 10.2 L Hct 32.6 L MCV 103.5 H MCH 32.4 MCHC 31.3 L RDW 15.1 H Plt Count 224 MPV 10.3 Immature Gran % (Auto) 0.8 H Neut % (Auto) 77.4 H Lymph % (Auto) 11.4 L [place] % (Auto) 7.0 Eos % (Auto) 2.9 Baso % (Auto) 0.5 Lymph # (Auto) 0.86 L [place] # (Auto) 0.5 Eos # (Auto) 0.2 Baso # (Auto) 0.0 Abs Immat Gran (auto) 0.06 H Absolute Neuts (auto) 5.9 Absolute Nucleated RBC 0.000 Nucleated RBC % 0.0 Sodium 134 L Potassium 3.8 Chloride 103 Carbon Dioxide 29 Anion Gap 2 L BUN 15 D Creatinine 0.60 L Estim Creat Clear Calc 57 Estimated GFR > 60 Glucose 103 Calcium 8.1 L Total Bilirubin 0.6 AST 19 ALT 15 Alkaline Phosphatase 48 Total Protein 5.0 L Albumin 2.7 L Preliminary micro results at discharge 04/26/24 07:37 Blood Culture - Preliminary Blood 04/26/24 07:37 Blood Culture - Preliminary Blood Discharge Plan Discharge Attending physician on discharge: Karsten Greco Consulting providers: Levon Proctor Discharging Clinician: Carina Roberto Anticipated Discharge Date/Time: 04/29/24 15:30 Patient Disposition: Home Health Service Activity: august shower Diet: heart healthy Discharge Instructions: * Per Care Coordination: [facility] will contact you prior to their first visit. [facility] will follow for RN and PT/OT eval and treat. [facility] can be contacted at [phone]. * Take all doses of antibiotics. * Oxygen at 2 liters at rest and 3 liters with activity. DO NOT ALLOW ANYONE TO SMOKE NEAR OXYGEN. * Notify provider if you develop worsening shortness of breath not improved with oxygen or fever. * Follow up with primary and cardiology. * Wear holter monitor as prescribed. * Report to provider if you develop blood in urine or stool. Report if you bruise easily. * Take blood pressure daily and record. If blood pressure less than 110 systolic hold Losartan. Take blood pressure record to your primary and software quality manager appointment. Thank you for entrusting [facility] with your healthcare! Patient Instructions: Antibiotic Form, Apixaban (By mouth), A-fib (Atrial Fibrillation) (DC), Using Oxygen at Home (DC), Pneumonia (DC) Patient Language: Turkish Stand Alone Forms: General Discharge Information Follow-up/Referrals: [facility] [Provider Group] - 2 Weeks Bryan,Gabriele E., THREAD SEPARATOR [Primary Care Provider] - 1 Week Discharge Medications: New cefdinir 300 mg Capsule 300 mg PO Q12HR Qty: 6 0RF Rx Instructions: Start 04/30/24 guaifenesin [Mucus Relief ER] 600 mg Tablet Extended Release 12hr 600 mg PO Q12HR Qty: 14 0RF Eliquis 5 mg Tablet 5 mg PO Q12HR Qty: 60 0RF diltiazem HCl 120 mg Capsule,Extended Release 24hr 120 mg PO QAM Qty: 30 0RF azithromycin [Zithromax] 250 mg Tablet 500 mg PO DAILY Qty: 2 0RF Rx Instructions: Take on 04/30/24 Continued omega-3 fatty acids [Fish Oil Concentrate] 1,000 mg capsule 1,000 mg PO DAILY aspirin [Adult Low Dose Aspirin] 81 mg tablet,delayed release (DR/EC) 81 mg PO DAILY methotrexate sodium 2.5 mg tablet See Rx Instructions .ROUTE .COMPLEX Qty: 60 1RF Rx Instructions: 5 tablets (12.5mg) PO once weekly; folic acid 1 mg tablet 1 mg PO DAILY Qty: 90 2RF calcium carbonate [Calcium 600] 600 mg calcium (1,500 mg) tablet 1,200 mg PO DAILY albuterol sulfate 90 mcg/actuation HFA aerosol inhaler 2 inh inhalation Q4-6H PRN (Reason: shortness of breath or wheezing) Qty: 6.7 5RF Rx Instructions: 2 puffs as needed every 4-6 hours losartan 50 mg tablet See Rx Instructions .ROUTE .COMPLEX Qty: 90 1RF Dose Instruction: TAKE ONE TABLET BY MOUTH ONCE DAILY Rx Instructions: TAKE 1/2 TABLET BY MOUTH ONCE DAILY alendronate 70 mg tablet See Rx Instructions .ROUTE .COMPLEX Qty: 12 2RF Dose Instruction: TAKE 1 TABLET BY MOUTH WEEKLY Rx Instructions: TAKE 1 TABLET BY MOUTH WEEKLY calcium carbonate-vitamin D3 600 mg-20 mcg (800 unit) tablet 1 tablet PO DAILY Qty: 90 2RF tiotropium-olodaterol 2.5-2.5 mcg/actuation mist 2 puff inhalation DAILY Qty: 4 6RF famotidine 20 mg tablet See Rx Instructions .ROUTE .COMPLEX Qty: 90 1RF Dose Instruction: TAKE 1 TABLET BY MOUTH EVERY DAY Rx Instructions: TAKE 1 TABLET BY MOUTH EVERY DAY Discontinued amlodipine 10 mg tablet See Rx Instructions .ROUTE .COMPLEX Qty: 90 2RF Dose Instruction: TAKE ONE TABLET BY MOUTH ONCE DAILY Patient Comments: taking 5mg Rx Instructions: TAKE 1/2 TABLET BY MOUTH ONCE DAILY Other Ambulatory Orders: [place] cardiac event monitor (Routine) Timeframe: 3 Days Location: Determined by Patient Ordered By: Benito Mc Date of admission: 04/28/24 13:42 Primary Care Provider: Gabriele Adams Admitting Provider: Maria A Agustin Attending physician on admission: Karsten Greco Condition: Improved Hospitalist MIPS Heart Failure (Exclusion) Patient has history of Heart Transplant or Left Ventricular Assistive Device?: No IF YES, STOP HERE Heart Failure (Qualifier) Patient has current or prior documentation of LVEF less than or equal to 40%, or mod/servere depressed LVSF?: No IF NO, STOP HERE
--- NOTE | 2024-04-29 14:39 | HOMEO2EVAL ---
Evaluation was performed at [facility] Home Oxygen Evaluation RC: Home Oxygen (O2) Evaluation Start: 04/29/24 11:08 Freq: ONCE Status: Active Protocol: RPE Activity Type Activity Date Activity User E-sign Co-sign Detail Recorded Client Recorded Date Recorded By Document 04/29/24 13:45 LUIS ANTONIO [email or web address] 04/29/24 14:39 LUIS ANTONIO Document 04/29/24 13:46 LUIS ANTONIO [email or web address] 04/29/24 14:39 LUIS ANTONIO Document 04/29/24 13:47 LUIS ANTONIO [email or web address] 04/29/24 14:39 LUIS ANTONIO Document 04/29/24 13:50 LUIS ANTONIO [email or web address] 04/29/24 14:39 LUIS ANTONIO Document 04/29/24 13:52 LUIS ANTONIO [email or web address] 04/29/24 14:39 LUIS ANTONIO Document 04/29/24 13:55 LUIS ANTONIO [email or web address] 04/29/24 14:39 LUIS ANTONIO 04/29/24 04/29/24 04/29/24 13:45 13:46 13:47 Home O2 Evaluation [Oxygen] -Test Phase Resting Resting Resting -Oxygen Delivery Room Air Nasal Cannula Nasal Cannula -Oxygen Flow Rate (L/min) 1 2 [Pulse Oximetry] -Pulse Oximetry (90-100 %) 87 L 87 L 93 [Pulse Rate] -Pulse Rate (60-100 beats/min) [Exercise] -Ambulation Distance (feet) -Ambulation Distance (meters) [Comments] -Home Oxygen Evaluation Comments [Charges] -Evaluation Charges O2 Evaluation by Pulmonary 04/29/24 04/29/24 04/29/24 13:50 13:52 13:55 Home O2 Evaluation [Oxygen] -Test Phase Exercise Exercise Resting -Oxygen Delivery Nasal Cannula Nasal Cannula Nasal Cannula -Oxygen Flow Rate (L/min) 2 3 2 [Pulse Oximetry] -Pulse Oximetry (90-100 %) 87 L 90 93 [Pulse Rate] -Pulse Rate (60-100 beats/min) 103 H [Exercise] -Ambulation Distance (feet) 200 -Ambulation Distance (meters) 60.95 [Comments] -Home Oxygen Evaluation Comments PT REQUIRES 2 LITERS HOME O2 AT REST AND 3 L WITH ACTIVITY [Charges] -Evaluation Charges
--- NOTE | 2024-04-29 14:46 | PCRCNOTE ---
HOME O2 EVAL DONE, PT NEEDS 2 L REST AND 3 L WITH ACTIVITY. PT HAS O2 WITH [facility], [facility], [facility]. PT HAS INCREASED O2 NEEDS FROM PREVIOUS SETTINGS.PT REQUESTING A POC THAT CAN PROVIDE CONTINUOUS FLOW AT 3 L FOR EXERTION OR [facility] FOR PORTABLE O2 DEMAND, CURRENTLY HAS A PULSE DOSE POC. I CONTACTED SHAN AT [facility], SHE WILL GET IN TOUCH WITH PT AND ARRANGE SET UP AT REQUESTED POC/[facility]AN[facility] AT [facility] AND PROPER PORTABLE O2. SON WILL BRING STATIONARY CONCENTRATOR TO [facility] HOME WHILE PT STAYS THERE. I WILL BRING TANK TO PT ROOM FOR TRANSPORT TO [facility] HOME. ORDER AND PAPERWORK FAXED TO [facility].
--- NOTE | 2024-05-02 07:21 | PC.NURSE ---
Blood cx are negative.
--- OUTSIDE RECORDS SUMMARY | 2024-05-03 02:48 | XMS_ITS | Encounter Summary ---
Author Organization [facility] Healthcare Address [address] [place] [address] Care Team Providers Care Die Cutter Apprentice Name Role Phone Wilmer Taylor MD Unavailable [phone] Jeffrey Koch MD Unavailable [phone] Luz Lewis MD Unavailable [phone] Raleigh Veloz MD PhD Unavailable [phone] Ranjan Cazares MD Unavailable [phone] Terry Bender DO Primary Care Provider [phone] Reason for Referral * MRI/CAT/PET Scan (Routine) - Closed Specialty Diagnoses / Procedures Referred By Contac t Referred To Contact Radiology Diagnoses Malignant neoplasm of upper lobe, left bronchus or lung (HCC) Malignant neoplasm of upper lobe, right bronchus or lung (HCC) Malignant neoplasm of lower lobe, right bronchus or lung (HCC) Procedures CT Chest W Contrast Raleigh Veloz MD PhD [address] [place] [address] Phone: tel: fax: [address] [phone] Referral ID Status Reason Start Date Expiration Date Visits Re quested Visits Authorized [id number] Closed 01/11/2024 02/09/2025 1 1 * Consultation (Routine) - Authorized Specialty Diagnoses / Procedures Referred By Contac t Referred To Contact Oncology Diagnoses Malignant neoplasm of upper lobe, left bronchus or lung (HCC) Malignant neoplasm of upper lobe, right bronchus or lung (HCC) Malignant neoplasm of lower lobe, right bronchus or lung (HCC) Raleigh Veloz MD PhD [address] [place] [address] Phone: tel: fax: Tim Newby MD [address] [place] [address] Phone: tel: fax: Referral ID Status Reason Start Date Expiration Date Visits Requested Visits Authorized [id number] Authorized Specialty Services Required 01/10/2024 01/10/2025 12 12 Question Answer Please select the performing region: [facility] [[id number]] Please select the performing department: [id number] [[id number]] To provider: TIM NEWBY [[id number]] # of visits: 1 Comments Prior d/x NSCLC s/p surgery, then with radiographically dx early stage NSCLC s/p radiation with SBRT. Now has multiple pleural nodules concerning for progression and not a candidate for further RT. To establish care. Reason for Visit * Consultation (Routine) - Canceled Specialty Diagnoses / Procedures Referred By Contac t Referred To Contact Radiation Oncology Diagnoses Malignant neoplasm of upper lobe, right bronchus or lung (HCC) Raleigh Veloz MD PhD [address] [place] [address] Phone: tel: fax: Raleigh Veloz MD PhD [address] [place] [address] Phone: tel: fax: Referral ID Status Reason Start Date Expiration Date V isits Requested Visits Authorized [id number] Canceled Continuity of Care 03/29/2023 03/29/2024 99 99 Encounter Details Date Type Department Care Team (Late st Contact Info) Description 01/09/2024 9:00 AM CDT Office Visit [facility] Radiation Oncology [address] [place] [id number] Raleigh Veloz MD PhD [address] [place] [address] Malignant neoplasm of upper lobe, left bronchus or lung (HCC); Malignant neoplasm of upper lobe, right bronchus or lung (HCC); Malignant neoplasm of lower lobe, right bronchus or lung (HCC) Social History Tobacco Use Types Packs/Day Years Used Date Smoking Tobacco: Former Cigarettes 0.3 50 1 969 - 2015 Smokeless Tobacco: Never Tobacco Cessation:Counseling Given: Not Answered Alcohol Use Standard Drinks/Week Comments Never 0 (1 standard drink = 0.6 oz pur e alcohol) AUDIT-C Answer Date Recorded Q1: How often do you have a drink containing alc ohol? Monthly or less 12/12/2022 Average Number of Drinks Not on file 023 Frequency of Binge Drinking Not on file 11/22 Personal Safety Answer Date Recorded Have you ever been in or are you currently in a harmful physical or emotional relationship or is someone making you feel afraid or unsafe? Denies 11/24/2022 Comments No Sex and Gender Information Value Date Recorded Sex Assigned at Not on file Legal Sex Female 10:10 AM COFFEE HOST Gender Identity Not on file Sexual Orientation Not on file documented as of this encounter Last Filed Vital Signs Vital Sign Reading Time Taken Comments Blood Pressure 135/85 01/09/2024 9:04 AM CDT Pulse 69 01/09/2024 9:04 AM CDT Temperature 36.5 ??C (97.7 ??F) 01/09/2024 9:04 AM CD T Respiratory Rate 16 01/09/2024 9:04 AM CDT Oxygen Saturation 92% 01/09/2024 9:04 AM CDT Inhaled Oxygen Concentration - - Weight 62.5 kg (137 lb 12.8 oz) 01/09/2024 9:04 AM CDT Height - - Body Mass Index 23.65 10/08/2023 8:56 AM CDT documented in this encounter Progress Notes * Raleigh Veloz MD PhD - 01/09/2024 9:00 AM CDT Staff Physician: Raleigh Veloz MD PhD Referring Physician: Patient Care Team: Wilmer Taylor MD as Referring Physician (Obstetrics and Gynecology) Luz Lewis MD as Referring Physician (Surgery) Date of Service: 01/09/2024 RADIATION ONCOLOGY FOLLOW UP NOTE IDENTIFYING DATA: Cancer Staging Malignant neoplasm of lower lobe, right bronchus or lung (HCC) Staging form: Lung, AJCC 8th Edition - Clinical stage from 12/12/2022: Stage IA2 (cT1b, cN0, cM0) - Signed by Raleigh Veloz MD PhD on 12/12/2022 Malignant neoplasm of upper lobe, left bronchus or lung (HCC) Staging form: Lung, AJCC 8th Edition - Clinical stage from 08/15/2023: Stage IA2 (cT1b, cN0, cM0) - Signed by Raleigh Veloz MD PhDon 08/15/2023 Malignant neoplasm of upper lobe, right bronchus or lung (HCC) Staging form: Lung, AJCC 8th Edition - Pathologic stage from 09/12/2021: Stage IA2 (pT1b, pN0, cM0) - Signed by Raleigh Veloz MD PhD on 12/12/2022 Treatment Intent: enoc Guillory is a 73 y.o. 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 She then developed a radiographically diagnosed clinical T1b N0 M0 non-small cell lung cancer of the left upperlobe and received empiric SBRT to this lesion 5500 cGy completed on 09/07/2023. She was last seen in our office on 12/07/2023. INTERVAL HISTORY: Since her last follow-up, the patient has been relatively stable from a respiratory standpoint. Shedenies any significant changes in her baseline shortness of breath. She denies any new cough or hemoptysis. She denies any pain (0/10). She states that she has had some episodes of dizziness recently, with symptoms mostly when she goes from a seated to standing position. She states that she has hadthese episodes periodically in the past, but are more common now. She denies any nausea or vomiting. She did have a repeat PET-CT on 01/02/2024 which noted new and increased sites of pleural-based nodularity with increased FDG uptake suspicious of disease progression. Also noted was a semisolid subcentimeter left upper lobe nodule with mild FDG uptake potentially concerning for disease. There were no all, FDG avid hilar or mediastinal adenopathy or any clear extrathoracic sites of disease. She otherwise denies any additional changes to her medical history. PREVIOUS RADIATION: 5500 cGy in 5 fractions with SBRT to the right lower lobe completed on 01/05/2023. 5500 cGy in 5 fractions with SBRT to the left upper lobe completed on 09/07/2023. ALLERGIES: Allergies Allergen Reactions Levofloxacin Swelling and Muscle pain Tendon pain, lower leg swelling Omeprazole Rash Amoxicillin Diarrhea Motrin [Ibuprofen] Other (See comments) Patient takes Methotrexate and advised not to take. MEDICATIONS: Reviewed REVIEW OF SYSTEM Except for the symptoms described above, the remainder of the review of systems is negative. Specifically, except as noted when asked the patient expressed no complaints relative to constitutional, fever, weight loss, eyes, ears, nose, mouth, throat, neurologic, cardiovascular, pulmonary, breasts, GI, , skin, musculoskeletal, endocrine, hematologic/lymphatic, or immunologic systems. PHYSICAL EXAMINATION: BP 135/85 Pulse 69 Temp 36.5 ??C (97.7 ??F) Resp 16 Wt 62.5 kg (137 lb 12.8 oz) SpO2 92% BMI 23.65 kg/m?? Pain Score and Location 01/09/24 0904 PainSc: 0-No pain ECOG Performance: 1 Physical Exam Constitutional: General: She is not in acute distress. Appearance: Normal appearance. She is not toxic-appearing. HENT: Head: Normocephalic and atraumatic. Eyes: Extraocular Movements: Extraocular movements intact. Pupils: Pupils are equal, round, and reactive to light. Cardiovascular: Rate and Rhythm: Normal rate and regular rhythm. Pulmonary: Effort: Pulmonary effort is normal. No respiratory distress. Abdominal: General: There is no distension. Palpations: Abdomen is soft. Musculoskeletal: General: Normal range of motion. Cervical back: Normal range of motion and neck supple. Neurological: General: No focal deficit present. Mental Status: She is alert and oriented to person, place, and time. Psychiatric: Mood and Affect: Mood normal. Behavior: Behavior normal. Thought Content: Thought content normal. Judgment: Judgment normal. 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 She then developed a radiographically diagnosed clinical T1b N0 M0 non-small cell lung cancer of the left upper lobe and received empiric SBRT to this lesion 5500 cGy completed on 09/07/2023. Unfortunately, the concern for disease progression seen on prior CT chest was confirmed with PET-CT showing numerous andbilateral pleural-based nodules with increased FDG uptake as well as a potential left upper lobe subcentimeter nodule. There was otherwise no evidence of regional or extra thoracic disease. We discussed that these findings are suspicious for disease progression and given the multiple sites that radi ation therapy would not be the most appropriate management at this stage. We discussed that with bilateral lung involvement, this would generally be managed with systemic therapy but since we do not have biopsy-proven malignancy at this time, this would be a critical 1st step before proceeding withsystemic treatment. My plan is to review her recent imaging at multidisciplinary cancer conference summary to determine if she would be a potential candidate for percutaneous biopsy. I did discuss the option of surgical biopsy with her thoracic surgeon who did not feel that this would be the most appropriate approach for the patient at this time. We discussed that if consensus opinion is that slicks not have any sites of disease that would be safely reliably amenable to biopsy, that my thought would be to pursue short-term follow-up imaging and proceed with biopsy if/when she develops a site of disease large enough for a location more amenable to biopsy. Either way, since systemic therapywill be her best treatment option I will still refer the patient to Medical Oncology to establish care. The patient and her daughter asked appropriate questions and expressed understanding and were in agreement with the overall plan. PLAN: We will review the patient's recent imaging at our multidisciplinary cancer conference summary to determine if she is a candidate for percutaneous biopsy she is not likely to be a good candidate for surgical biopsy. We will also refer the patient to Medical Oncology as systemic therapy will be her more appropriate option once biopsy has been performed. If biopsy is not possible at this time, we will likely pursue short-term follow-up imaging with PET-CT in 3 months but have not schedule the patient at this time until after tumor board discussion. Continue close follow up with her other healthcare providers. RAD ONC PAIN PLAN: The patient is not currently having any pain that requires changes in pain management. My total face to face time with this patient during this office visit: 30 minutes DISEASE STATUS/TOXICITY: Disease Status: Failure: Local New metachronous cancer?: No ADDENDUM (01/11/2024): The patient's case was reviewed at multidisciplinary cancer conference at [facility] and consensus opinion was that none of the areas of concern on PET-CT were amenable to percutaneous biopsy given size and/or location. Additionally, a separate discussion with Dr. Cazaresindicated that a surgical biopsy would be challenging given her prior surgery and radiation treatment and so collectively the overall consensus was to perform short-term follow-up interval imaging with CT of the chest with contrast to monitor disease progression and consider biopsy in the future iffeasible. This consensus was in part due to the small size of her disease and the fact that she is asymptomatic. Ultimately, she will likely require systemic therapy and so we will still refer the patient to Medical Oncology to establish care. Additionally, it is reasonable to obtain an MRI of the brain for baseline restaging which to be performed in the near future. This plan was discussed with the patient's daughter who expressed understanding and is amenable. documented in this encounter Nursing Notes * Ray Degroot RN - 01/09/2024 9:00 AM CDT Pt reports increased dyspnea than she has had. Pt currently on room air, but has her portable oxygen tank with her when she needs it. Pt states she wears 2-3L NC as needed. Pt did note she has had dizziness occurring occasionally for the past few weeks. Stated its upon standing, and did have 1 syncope episode last week. VSS at this visit. documented in this encounter Miscellaneous Notes * Addendum Note - Raleigh Veloz MD PhD - 01/09/2024 9:00 AM CDTAddended by: RALEIGH VELOZ on: 01/11/2024 11:35 AM Modules accepted: Orders documented in this encounter Plan of Treatment Scheduled Referrals Name Type Priority Associated Diagnoses Order Schedule Ambulatory referral to Oncology Outpatient Referral Routine Malignant neoplasm of upper lobe, left bronchus or lung (HCC) Malignant neoplasm of upper lobe, right bronchus or lung (HCC) Malignant neoplasm of lower lobe, right bronchus or lung (HCC) Expected: 01/23/2024 (Approximate), Expires: 01/08/2025 documented as of this encounter Results * CT Chest W Contrast (04/11/2024 2:52 PM COFFEE HOST) Anatomical Region Laterality Modality Body N/A Computed Tomogra phy 04/22/2024 11:4 9 AM COFFEE HOST Narrative 04/22/2024 12:04 PM COFFEE HOST EXAM DESCRIPTION: CT CHEST W CONTRAST REASON FOR STUDY: Non-small cell lung cancer (NSCLC), metastatic, assess treatment response, Prior early stage NSCLC, now with multiple nodules w/o extrathoracic disease and none amenable to biopsy at this time. ??Continued surveillance ?? Follow up lung cancer ??Prev scan 11/30/2023 ??Right upper lobe removed ?? TECHNIQUE: CT scan of the chest performed with intravenous contrast using helical scanning technique with dynamic intravenous contrast injection. ?? Reconstructed coronal and sagittal MPR images reviewed. All images stored on PACS. ??Automated exposure control was used as a dose optimization technique for this examination. CONTRAST TYPE/DOSE: 75mL of IOVERSOL 350 MG IODINE/ML INTRAVENOUS SYRINGE ?? injected via ??intravenous COMPARISON: 11/30/2023 ??CT chest, 01/02/2024 PET-CT FINDINGS: LUNGS: ??Trachea and edvin are patent. ??Soft tissue defects within the bilateral lower lobe bronchi, the peripheral middle lobe bronchi suggesting mucous plugging and increased from previous. Severe emphysematous changes diffusely. Right lower lobe interstitial densities and pleural thickening generally similar to previous. Left upper lobe demonstrates persistent interstitial and band like opacities. ?? Increasing lobular soft tissue densities anteriorly image 40 of series 3 measuring 1.1 cm. ??Also present image 18 measuring 1.2 cm. ??Both new from previous. Left lower lobe redemonstrates interstitial opacities with new focal consolidative nodular type lesions. ??The largest region measures 3.5 cm on image 69. ??Additional lesion is pleural-based laterally measuring 2.5 cm on image 67. ??Consider infectious or neoplastic processes PLEURA: ??No large effusion or pneumothorax. ??Extensive pleural thickening with soft tissue density along medial posterior pleural surfaces in the right measuring 3.1 by 1.0 cm current axial image 44 increased from previous. ?? Additional lesser lesions bilaterally. MEDIASTINUM/OLGA: ?? Postsurgical changes right hilum. ??Granulomatous calcification subcarinal and left hilar regions. HEART: ??Heart size is enlarged. ??Moderate pericardial effusion increased from previous. VASCULATURE: ??No thoracic aortic aneurysm. AXILLA: ??No adenopathy. CHEST WALL: ?? Right lateral 6th and 7th nonsegmental rib fractures redemonstrated. ??Subtle surrounding callus formation suggesting progressive healing. ??Overlying soft tissue thickening and induration may be related to contusion with pathologic fracture and malignancy not excluded. ??This is increased from previous. HARDWARE/LINES/TUBES: ?? None. UPPER ABDOMEN: ??No significant abnormality. MUSCULOSKELETAL: ??No significant abnormality. OTHER: ??No other significant abnormality. IMPRESSION: Increasing soft tissue thickening and induration adjacent to right lateral 6th and 7th rib fractures may be related to fracture and surrounding contusion with pathologic fracture and malignancy not excluded. Increasing soft tissue density and nodularity left upper lobe and left lower lobe may be related to infectious or neoplastic processes. Increasing pleural thickening and nodularity bilaterally. Increasing moderate pericardial effusion. Increasing mucous plugging bilateral lower lobe and middle lobe bronchi. THIS IS AN ELECTRONICALLY VERIFIED FINAL REPORT 04/22/2024 12:04 PM - Electronically signed by ??Dakota Villar M.D. RB: MIGUEL ÁNGEL D: ??04/22/2024 12:04 PM T: ??04/22/2024 12:04 PM Report ID: [id number] Reading Location: ??[id number] Procedure Note Daokta Villar MD - 04/22/2024 EXAM DESCRIPTION: CT CHEST W CONTRAST REASON FOR STUDY: Non-small cell lung cancer (NSCLC), metastatic, assess treatment response, Prior early stage NSCLC, now with multiple nodules w/o extrathoracic disease and none amenable to biopsy at this time. Continued surveillance Follow up lung cancer Prev scan 11/30/2023 Right upper lobe removed TECHNIQUE: CT scan of the chest performed with intravenous contrast using helical scanning technique with dynamic intravenous contrast injection. Reconstructed coronal and sagittal MPR images reviewed. All images storedon PACS. Automated exposure control was used as a dose optimizationtechnique for this examination. CONTRAST TYPE/DOSE: 75mL of IOVERSOL 350 MG IODINE/ML INTRAVENOUS SYRINGE injected via intravenous COMPARISON: 11/30/2023 CT chest, 01/02/2024 PET-CT FINDINGS: LUNGS: Trachea and edvin are patent. Soft tissue defects within the bilateral lower lobe bronchi, the peripheral middle lobe bronchisuggesting mucous plugging and increased from previous. Severe emphysematous changes diffusely. Right lower lobe interstitial densities and pleural thickening generally similar to previous. Left upper lobe demonstrates persistent interstitial and band likeopacities. Increasing lobular soft tissue densities anteriorly image 40 of series 3 measuring 1.1 cm. Also present image 18 measuring 1.2 cm. Both new from previous. Left lower lobe redemonstrates interstitial opacities with new focal consolidative nodular type lesions. The largest region measures 3.5 cm on image 69. Additional lesion is pleural-based laterally measuring 2.5 cmon image 67. Consider infectious or neoplastic processes PLEURA: No large effusion or pneumothorax. Extensive pleural thickeningwith soft tissue density along medial posterior pleural surfaces in the right measuring 3.1 by 1.0 cm current axial image 44 increased from previous. Additional lesser lesions bilaterally. MEDIASTINUM/OLGA: Postsurgical changes right hilum. Granulomatous calcification subcarinal and left hilar regions. HEART: Heart size is enlarged. Moderate pericardial effusion increasedfrom previous. VASCULATURE: No thoracic aortic aneurysm. AXILLA: No adenopathy. CHEST WALL: Right lateral 6th and 7th nonsegmental rib fractures redemonstrated.Subtle surrounding callus formation suggesting progressive healing. Overlyingsoft tissue thickening and induration may be related to contusion withpathologic fracture and malignancy not excluded. This is increased from previous. HARDWARE/LINES/TUBES: None. UPPER ABDOMEN: No significant abnormality. MUSCULOSKELETAL: No significant abnormality. OTHER: No other significant abnormality. IMPRESSION: Increasing soft tissue thickening and induration adjacent to rightlateral 6th and 7th rib fractures may be related to fracture and surroundingcontusion with pathologic fracture and malignancy not excluded. Increasing soft tissue density and nodularity left upper lobe and leftlower lobe may be related to infectious or neoplastic processes. Increasing pleural thickening and nodularity bilaterally. Increasing moderate pericardial effusion. Increasing mucous plugging bilateral lower lobe and middle lobebronchi. THIS IS AN ELECTRONICALLY VERIFIED FINAL REPORT 04/22/2024 12:04 PM - Electronically signed by Dakota Villar M.D. RB: MIGUEL ÁNGEL Report ID: [id number] Reading Location: [id number] Raleigh Veloz MD PhD IMG CT PROCEDURES Lupe l Result documented in this encounter Visit Diagnoses Diagnosis Malignant neoplasm of upper lobe, left bronchus or lung (HCC) Malignant neoplasm of upper lobe, right bronchus or lung (HCC) Malignant neoplasm of lower lobe, right bronchus or lung (HCC) Malignant neoplasm of upper lobe, left bronchus or lung (HCC) Malignant neoplasm of upper lobe, right bronchus or lung (HCC) Malignant neoplasm of lower lobe, right bronchus or lung (HCC) documented in this encounter Orders Appointment Requests Count Last Ordered Date Fi rst Ordered Date ONCBCN RAD ONC CLINIC APPOINTMENT REQUEST 1 01/09/2024 documented in this encounter Care Teams Die Cutter Apprentice Relationship Specialty Start Date End Date Terry Bender DO [address] [place], [place] [id number] PCP - General Internal Medicine 12/07/23 Wilmer Taylor MD [address] [facility] [address] [place] [address] Referring Physician Obstetrics and Gynecology 05/09/12 Jeffrey Koch MD [address] [place] [address] Consulting Physician Rheumatology 02/03/21 Luz Lewis MD [address] [place] [address] Referring Physician Surgery 12/14/21 Raleigh Veloz MD PhD [address] [place] [address] Radiation Oncologist Radiation Oncology 12/12/22 Ranjan Cazares MD [id number] [place] [address] Surgeon Thoracic Surgery 12/12/22 documented as of this encounter
--- OUTSIDE RECORDS SUMMARY | 2024-05-03 02:48 | XMS_ITS | Encounter Summary ---
Author Organization [facility] Healthcare Address [address] [place] [address] Care Team Providers Care Car Jockey Name Role Phone Wilmer Taylor MD Unavailable [phone] Jeffrey Koch MD Unavailable [phone] Luz Lewis MD Unavailable [phone] Jay Argueta MD Primary Care Provider [phone] Raleigh Jay MD PhD Unavailable [phone] Ranjan Cazares MD Unavailable [phone] Encounter Details Date Type Department Care Team (Late st Contact Info) Description 09/05/2023 Orders Only RAD ONC TREATMENTS Miscellaneous, Not In File Social History Tobacco Use Types Packs/Day Years Used Date Smoking Tobacco: Former Cigarettes 0.3 50 1 969 - 2015 Smokeless Tobacco: Never Alcohol Use Standard Drinks/Week Comments Never 0 [...] on file 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 Gender Identity Not on file Sexual Orientation Not on file documented as of this encounter Plan of Treatment Not on file documented as of this encounter Procedures Procedure Name Priority Date/Time Associated Diagnosis Comments RAD ONC ARIA SESSION SUMMARY 09/05/2023 12:50 PM CDT documented in this encounter Results * RAD ONC ARIA SESSION SUMMARY (09/05/2023 12:50 PM CDT) Course Name [id number] ARIA Course Plan Date 08/22/2023 8:14 AM ARIA Elapsed Days 2 ARIA Treatment Start Date 09/03/2023 ARIA Treatment Site SBRT L [id number] ARIA Dose Given To Date (cGy) 3,300 ARIA Session Dosage Given (cGy) 1,100 ARIA Plan ID SBRT L LUN ARIA Fractions Treated 2 ARIA Prescribed Dose Per Fraction (cGy) 1,100 ARIA Prescribed Total Dose (cGy) 4,400 ARIA 09/05/2023 12:5 0 PM CDT us Not In File Miscellaneous RADIATION ONCOLOGY ORD ERABLES Final Result ARIA documented in this encounter Visit Diagnoses Not on filedocumented in this encounter Care Teams Car Jockey Relationship Specialty Start Date End Date Jay Argueta MD [address] [place] [address] PCP - General Family Practice 11/29/22 10/07/23 Wilmer Taylor MD [address] [facility] [address] [place] [address] Referring Physician Obstetrics and Gynecology 05/09/12 Jeffrey Koch MD [address] [place] [address] Consulting Physician Rheumatology 02/03/21 Luz Lewis MD [address] [place] [address] Referring Physician Surgery 12/14/21 Raleigh Jay MD PhD [address] [place] [address] Radiation Oncologist Radiation Oncology 12/12/22 Ranjan Cazares MD [id number] [place] [address] Surgeon Thoracic Surgery 12/12/22 documented as of this encounter
--- OUTSIDE RECORDS SUMMARY | 2024-05-03 02:48 | XMS_ITS | Encounter Summary ---
Author Organization [facility] Healthcare Address [address] [place] [address] Care Team Providers Care Hospital Staff Pharmacist Name Role Phone Wilmer Taylor MD Unavailable [phone] Jeffrey Koch MD Unavailable [phone] Luz Lewis MD Unavailable [phone] Jay Argueta MD Primary Care Provider [phone] Raleigh Jay MD PhD Unavailable [phone] Ranjan Cazares MD Unavailable [phone] Encounter Details Date Type Department Care Team (Late st Contact Info) Description 09/04/2023 12:30 PM CDT Treatment [facility] Radiation Oncology [address] [place] [id number] Carter Orlando MD [address] [facility] [address] [place] [address] Social History Tobacco Use Types Packs/Day Years [...] on file 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 Gender Identity Not on file Sexual Orientation Not on file documented as of this encounter Plan of Treatment Not on file documented as of this encounter Visit Diagnoses Not on filedocumented in this encounter Care Teams Hospital Staff Pharmacist Relationship Specialty Start Date End Date Jay Argueta MD [address] [place] [address] PCP - General Family Practice 11/29/22 10/07/23 Wilmer Taylor MD [facility] [address] Referring Physician Obstetrics and Gynecology 05/09/12 Jeffrey Koch MD [address] [place] [address] Consulting Physician Rheumatology 02/03/21 Luz Lewis MD [address] [place] [address] Referring Physician Surgery 12/14/21 Raleigh Jay MD PhD [address] [place] [address] Radiation Oncologist Radiation Oncology 12/12/22 Ranjan Cazares MD [address] [facility] [id number] [place] [address] Surgeon Thoracic Surgery 12/12/22 documented as of this encounter
--- OUTSIDE RECORDS SUMMARY | 2024-05-03 02:48 | XMS_ITS | Encounter Summary ---
Author Organization [facility] Healthcare Address [address] [place] [address] Care Team Providers Care Geodesist Name Role Phone Wilmer Taylor MD Unavailable [phone] Jeffrey Koch MD Unavailable [phone] Luz Lewis MD Unavailable [phone] [facility] Company[facility] MD PhD Unavailable [phone] Ranjan Cazares MD Unavailable [phone] Terry Bender DO Primary Care Provider [phone] Encounter Details Date Type Department Care Team (Late st Contact Info) Description 04/10/2024 Telephone [facility] [address] [place] [address] Hasmukh July Thang Social History Tobacco Use Types Packs/Day Years [...] on file 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 Gender Identity Not on file Sexual Orientation Not on file documented as of this encounter Miscellaneous Notes * Telephone Encounter - Hasmukh July Thang - 04/10/2024 2:49 PM CST C CTOR OF AUDIOLOGY documented in this encounter Plan of Treatment Not on file documented as of this encounter Visit Diagnoses Not on filedocumented in this encounter Care Teams Geodesist Relationship Specialty Start Date End Date Terry Bender DO [address] [place] [address] PCP - General Internal Medicine 12/07/23 Wilmer Taylor MD [address] [facility] [address] [place], [place] [id number] Referring Physician Obstetrics and Gynecology 05/09/12 Jeffrey Koch MD [address] [place] [address] Consulting Physician Rheumatology 02/03/21 Luz Lewis MD [address] [place] [address] Referring Physician Surgery 12/14/21 Raleigh Jay MD PhD [address] [place] [address] Radiation Oncologist Radiation Oncology 12/12/22 Ranjan Cazares MD [id number] [place] [address] Surgeon Thoracic Surgery 12/12/22 documented as of this encounter
--- OUTSIDE RECORDS SUMMARY | 2024-05-03 02:48 | XMS_ITS | Encounter Summary ---
Author Organization [facility] Healthcare Address [address] [place] [address] Care Team Providers Care Rubber Tubing Splicer Name Role Phone Wilmer Taylor MD Unavailable [phone] Jeffrey Koch MD Unavailable [phone] Luz Lewis MD Unavailable [phone] Raleigh Jay MD PhD Unavailable [phone] Ranjan Cazares MD Unavailable [phone] Terry Bender DO Primary Care Provider [phone] Reason for Referral * MRI/CAT/PET Scan (Routine) - Closed Specialty Diagnoses / Procedures Referred By Contac t Referred To Contact Radiology Diagnoses Malignant neoplasm of upper lobe, left bronchus or lung (HCC) Malignant neoplasm of upper lobe, right bronchus or lung (HCC) Malignant neoplasm of lower lobe, right bronchus or lung (HCC) Procedures PET/CT FDG Skull to Thigh Raleigh Jay MD PhD [address] [place] [address] Phone: tel: fax: [address] [phone] Referral ID Status Reason Start Date Expiration Date Visits Re quested Visits Authorized [id number] Closed 01/02/2024 04/01/2024 2 2 Reason for Visit * Consultation (Routine) - Canceled Specialty Diagnoses / Procedures Referred By Contac t Referred To Contact Radiation Oncology Diagnoses Malignant neoplasm of upper lobe, right bronchus or lung (HCC) Raleigh Jay MD PhD [address] [place] [address] Phone: tel: fax: Raleigh Jay MD PhD [address] [place] [address] Phone: tel: fax: Referral ID Status Reason Start Date Expiration Date V isits Requested Visits Authorized [id number] Canceled Continuity of Care 03/29/2023 03/29/2024 99 99 Encounter Details Date Type Department Care Team (Late st Contact Info) Description 12/07/2023 11:00 AM CDT Office Visit [facility] Radiation Oncology [address] [place] [id number] Raleigh Jay MD PhD [address] [place] [id number] Malignant neoplasm of upper lobe, left bronchus or lung (HCC) (Primary Dx); Malignant neoplasm of upper lobe, right bronchus [...] on file 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 Gender Identity Not on file Sexual Orientation Not on file documented as of this encounter Last Filed Vital Signs Vital Sign Reading Time Taken Comments Blood Pressure 151/75 12/07/2023 11:05 AM CDT Pulse 73 12/07/2023 11:05 AM CDT Temperature 36.3 ??C (97.3 ??F) 12/07/2023 11:05 AM C DT Respiratory Rate 18 12/07/2023 11:05 AM CDT Oxygen Saturation 99% 12/07/2023 11:05 AM CDT Inhaled Oxygen Concentration - - Weight 62.7 kg (138 lb 3.2 oz) 12/07/2023 11:05 AM CDT Height - - Body Mass Index 23.72 10/08/2023 8:56 AM CDT documented in this encounter Progress Notes * Raleigh Jay MD PhD - 12/07/2023 11:00 AM CDT Staff Physician: Raleigh Jay MD PhD Referring Physician: Patient Care Team: Wilmer Taylor MD as Referring Physician (Obstetrics and Gynecology) Luz Lewis MD as Referring Physician (Surgery) Date of Service: 12/07/2023 RADIATION ONCOLOGY FOLLOW UP NOTE IDENTIFYING DATA: Cancer Staging Malignant neoplasm of lower lobe, right bronchus or lung (HCC) Staging form: Lung, AJCC 8th Edition - Clinical stage from 12/12/2022: Stage IA2 (cT1b, cN0, cM0) - Signed by Raleigh Jay MD PhD on 12/12/2022 Malignant neoplasm of upper lobe, left bronchus or lung (HCC) Staging form: Lung, AJCC 8th Edition - Clinical stage from 08/15/2023: Stage IA2 (cT1b, cN0, cM0) - Signed by Raleigh Jay MD PhDon 08/15/2023 Malignant neoplasm of upper lobe, right bronchus or lung (HCC) Staging form: Lung, AJCC 8th Edition - Pathologic stage from 09/12/2021: Stage IA2 (pT1b, pN0, cM0) - Signed by Raleigh Jay MD PhD on 12/12/2022 Treatment Intent: definitive Loida Guillory is a 73 y.o. 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 She then developed a radiographically diagnosed clinical T1b N0 M0 non-small cell lung cancer of the left upperlobe and received empiric SBRT to this lesion 5500 cGy completed on 09/07/2023. This is her 1st follow-up since her most recent course of radiation therapy. INTERVAL HISTORY: Since completing her most recent course of radiation therapy, the patient reports that she has beenrelatively stable from a respiratory standpoint. She did report some increased fatigue shortly after completing her most recent course of treatment, but this has since resolved and she is now back toher baseline. She reports stable baseline shortness of breath. She denies any new cough or hemoptysis. She denies any dysphagia or odynophagia. She denies any headache, nausea, vomiting, vision changes, or any focal numbness or weakness. She does report some occasional right flank/lower back pain that radiates to the right shoulder. She states that she does have history of rheumatoid arthritis and thought that this was related to that and had previously been managed with Tylenol and stretching exercises with benefit. More recently, she has not been as compliant with these treatments does havesome improvement when she does use Tylenol. She currently rates the pain a 3/10. Her most recent CTof the chest on 11/30/2023 shows a mixed result. With regard to her previously treated right lower lobe there appears to be stable findings with no evidence of progression and her recently treated left upper lobe nodules shown interval decrease in size with surrounding treatment effect. Unfortunately, the right anterior mediastinal mass alluded to buy prior PET-CT has become more obvious and prominent measuring 3.1 x 1.3 cm. Also there was an enlarging anterior left lower lobe nodule now measuring 0.9 cm, previously 0.4 cm on July PET-CT. She otherwise denies any additional changes to [...] hematologic/lymphatic, or immunologic systems. PHYSICAL EXAMINATION: BP 151/75 Pulse 73 Temp 36.3 ??C (97.3 ??F) Resp 18 Wt 62.7 kg (138 lb 3.2 oz) SpO2 99% BMI 23.72 kg/m?? Pain Score and Location 12/07/23 1105 PainSc: 3 PainLoc: Back ECOG Performance: 1 Physical Exam Constitutional: General: [...] imaging and pertinent findings as per interval history. Laboratory/Pathology: I personally reviewed the laboratory and pathology values ASSESSMENT: Loida Guillory is a 73 y.o.female [...] lesion 5500 cGy completed on 09/07/2023. She remains stable from a respiratory standpoint and appears to have stable or improved radiographic disease in the previously treated right lower lobe and left upper lobe nodules. Unfortunately, there is now a clear right anterior mediastinal nodule in the area of indeterminate uptake on prior PET-CT suggesting that this is additional site of disease. Furthermore, there is also an enlarging though still subcentimeter left lower lobe nodule. We discussed the potential implications of these radiographic findings andconcern that these may represent 2 new sites of disease with no clear evidence of metastatic disease on the CT chest. At this stage, I would 1st recommend a PET-CT for restaging to assess the avidityof the right anterior mediastinal nodule as well as this left lower lobe nodule and to rule out anyother sites of disease. If PET-CT does show abnormal uptake in these lesions as anticipated withoutany additional areas of disease, we discussed that it may be more challenging and of less benefit to do local therapy and she may be more appropriate for systemic therapy. In this scenario, we discussed that we would definitely need pathologic confirmation malignancy as well as tissue to perform additional testing such as PD-L1 expression. My recommendation is that we proceed with a PET-CT at this time and then will review the patient's case at our multidisciplinary cancer conference to determine the more appropriate treatment options to consider as well as options for biopsy which are not quite straight forward based on the location of these lesions. We did also discuss that her right back/shoulder pain could be related to some extent to her prior right lower lobe radiation therapy giventhe location abutting the chest wall but that if Tylenol is helping to manage it at this point, that would be a reasonable approach to manage for now. The patient and her daughter asked appropriate questions and expressed understanding and were in agreement with the overall plan. PLAN: We will schedule a PET-CT to be performed as soon as possible and the patient and her daughter return for follow-up shortly after completion. We will also review these findings at tumor board to discuss potential treatment options and biopsy options if needed. Continue close follow up with her other healthcare providers. RAD ONC PAIN PLAN: The patient is not currently having any pain that requires changes in pain management. My total face to face time with this patient during this office visit: 20 minutes DISEASE STATUS/TOXICITY: Disease Status: Failure: Local New metachronous cancer?: No documented in this encounter Nursing Notes * Ray Degroot RN - 12/07/2023 11:00 AM CDT Pt here for followup appointment. Reports having pain of 3.10 achy in nature and is on R side underarmpit, and goes up towards her shoulder blade on her back. Taking tylenol and has exercises to do at home. Otherwise, pt reports doing well. documented in this encounter Plan of Treatment Not on file documented as of this encounter Results * PET/CT FDG Skull to Thigh (01/02/2024 12:01 PM CDT) Anatomical Region Laterality Modality N/A Positron Emissio n Tomography (PET) 01/02/2024 1:44 PM CDT Narrative 01/02/2024 2:41 PM CDT EXAM DESCRIPTION: ?? PET/CT FDG SKULL TO THIGH REASON FOR STUDY: Bilateral lung cancer with suspected recurrence, last radiation was 09/07/2023, PET-CT for restaging and subsequent treatment strategy. RADIOPHARMACEUTICAL: 11.8 ??mCi F-18 Fluorodeoxyglucose (FDG) via a ??right antecubital ??IV site. TECHNIQUE: The patient's fasting blood glucose level, measured by glucometer before injection of FDG, was ??112 ??mg/dL. ??After intravenous administration of FDG, noncontrast CT images were obtained for attenuation correction and for fusion with emission PET images to allow for anatomical localization of PET findings. ??Emission PET images were then obtained. The area imaged spanned the region from the skull base to the thighs. The uptake time was approximately ?? 60 ??minutes. SUV max was normalized to body weight. COMPARISON: PET-CT 08/08/2023. FINDINGS: For reference, a region of interest of the ascending thoracic aorta has a maximal SUV of ??2.5 . ??For reference, a region of interest of the right hepatic lobe of the liver has a maximal SUV of ??3.1. Head: ??Normal FDG uptake is seen in the included portion of the brain. Neck: ??There is a hypermetabolic nodule in the right neck superficial to the sternocleidomastoid muscle, this is similar in size to the prior PET-CT approximately 1.7 x 1.1 cm, the maximal SUV is 9.5, previously 11.3. ??No new hypermetabolic nodules or lymphadenopathy. Chest: ??Postsurgical changes are again noted from a right upper lobectomy. ?? There is a new area of soft tissue nodularity along the anterior pleura slightly anterior and right lateral of the SVC, this has a maximal SUV of 12.6. ??There is a persistent pleural-based focus adjacent the SVC in location as seen on the prior examination, this now has a maximal SUV of 7.7, previously 6.4. ??There is a new focus of activity along the pleura paravertebral in the right lower lobe maximal SUV 5.6. ??No specific findings or history of pleurodesis. There is a semisolid nodule left upper lobe which is new from the prior study 0.7 cm, the maximal SUV is 2.4. ??Previously there is a tiny area of nodularity 0.4 cm. ??Airspace opacities present in the anterior left upper lobe increased. Progressive FDG activity along the pleura and associated parenchymal opacities in the left base, for example medially adjacent to the descending thoracic aorta maximal SUV 7.8, previously 4.6. ??In the left base areas of activity with maximal SUV 5.8 No new separate hypermetabolic thoracic lymphadenopathy. ??There is a small right pleural effusion. ??Heart size is mildly enlarged. ??Coronary artery calcifications are noted. ??There is a small right pleural effusion. Abdomen and Pelvis: Liver and spleen demonstrate normal physiologic activity. ?? Gallbladder, spleen, pancreas, and both adrenal glands are normal. ??There is granulomatous calcification in the spleen. ??No hypermetabolic abdominal or pelvic lymphadenopathy. ??Severe sigmoid colon diverticulosis without overt inflammatory change or abnormal uptake. Bones: There is an S shaped curvature of the thoracolumbar spine. ??There is FDG uptake associated with right lateral 5th and 6th rib fractures either acute or subacute. ??No hypermetabolic osseous lesion is seen. IMPRESSION: Progression of disease with new and increased sites of pleural base nodularity and opacity bilaterally. New semisolid nodule left upper lobe with mild FDG uptake suspicious for metastatic disease. 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 THIS IS AN ELECTRONICALLY VERIFIED FINAL REPORT 01/02/2024 2:41 PM - Electronically signed by ??Vel Kong M.D. CH: CH D: ??01/02/2024 2:41 PM T: ??01/02/2024 2:41 PM Report ID: [id number] Reading Location: ??[id number] Procedure Note Vel Kong Jr., MD - 01/02/2024 EXAM DESCRIPTION: PET/CT FDG SKULL TO THIGH REASON FOR STUDY: Bilateral lung cancer with suspected recurrence, last radiation was 09/07/2023, PET-CT for restaging and subsequent treatment strategy. RADIOPHARMACEUTICAL: 11.8 mCi F-18 Fluorodeoxyglucose (FDG) via a right antecubital IV site. TECHNIQUE: The patient's fasting blood glucose level, measured byglucometer before injection of FDG, was 112 mg/dL. After intravenousadministration of FDG, noncontrast CT images were obtained for attenuation correction andfor fusion with emission PET images to allow for anatomical localization ofPET findings. Emission PET images were then obtained. The area imaged spannedthe region from the skull base to the thighs. The uptake time wasapproximately 60 minutes. SUV max was normalized to body weight. COMPARISON: PET-CT 08/08/2023. FINDINGS: For reference, a region of interest of the ascending thoracic aorta has a maximal SUV of 2.5 . For reference, a region of interest of the right hepatic lobe of the liver has a maximal SUV of 3.1. Head: Normal FDG uptake is seen in the included portion of the brain. Neck: There is a hypermetabolic nodule in the right neck superficial tothe sternocleidomastoid muscle, this is similar in size to the prior PET-CT approximately 1.7 x 1.1 cm, the maximal SUV is 9.5, previously 11.3. Nonew hypermetabolic nodules or lymphadenopathy. Chest: Postsurgical changes are again noted from a right upper lobectomy. There is a new area of soft tissue nodularity along the anterior pleura slightly anterior and right lateral of the SVC, this has a maximal SUV of 12.6. There is a persistent pleural-based focus adjacent the SVC inlocation as seen on the prior examination, this now has a maximal SUV of 7.7, previously 6.4. There is a new focus of activity along the pleura paravertebral in the right lower lobe maximal SUV 5.6. No specificfindings or history of pleurodesis. There is a semisolid nodule left upper lobe which is new from the priorstudy 0.7 cm, the maximal SUV is 2.4. Previously there is a tiny area ofnodularity 0.4 cm. Airspace opacities present in the anterior left upper lobeincreased. Progressive FDG activity along the pleura and associated parenchymal opacities in the left base, for example medially adjacent to thedescending thoracic aorta maximal SUV 7.8, previously 4.6. In the left base areas of activity with maximal SUV 5.8 No new separate hypermetabolic thoracic lymphadenopathy. There is a small right pleural effusion. Heart size is mildly enlarged. Coronary artery calcifications are noted. There is a small right pleural effusion. Abdomen and Pelvis: Liver and spleen demonstrate normal physiologicactivity. Gallbladder, spleen, pancreas, and both adrenal glands are normal. Thereis granulomatous calcification in the spleen. No hypermetabolic abdominal or pelvic lymphadenopathy. Severe sigmoid colon diverticulosis without overt inflammatory change or abnormal uptake. Bones: There is an S shaped curvature of the thoracolumbar spine. Thereis FDG uptake associated with right lateral 5th and 6th rib fractures either acute or subacute. No hypermetabolic osseous lesion is seen. IMPRESSION: Progression of disease with new and increased sites of pleural base nodularity and opacity bilaterally. New semisolid nodule left upper lobe with mild FDG uptake suspicious for metastatic disease. Similar size of the hypermetabolic right neck nodule, by previous reportthis was described as a Warthin's tumor. THIS IS AN ELECTRONICALLY VERIFIED FINAL REPORT 01/02/2024 2:41 PM - Electronically signed by Vel Kong M.D. CH: Report ID: [id number] Reading Location: [id number] Raleigh Jay MD PhD IMG PET PROCEDURES Fin al Result documented in this encounter Visit Diagnoses Diagnosis Malignant neoplasm of upper lobe, left bronchus or lung (HCC)- Primary Malignant neoplasm of upper lobe, right bronchus [...] 01/09/2024 documented in this encounter Care Teams Rubber Tubing Splicer Relationship Specialty Start Date End Date Terry Bender DO [address] [facility] [address] [place] [address] PCP - General Internal Medicine 12/07/23 Wilmer Taylor MD [address] [facility] [address] [place] [address] Referring Physician Obstetrics and Gynecology 05/09/12 Jeffrey Koch MD [address] [place] [address] Consulting Physician Rheumatology 02/03/21 Luz Lewis MD [address] [place] [address] Referring Physician Surgery 12/14/21 Raleigh Jay MD PhD [address] [place] [address] Radiation Oncologist Radiation Oncology 12/12/22 Ranjan Cazares MD [id number] [place], [place] [id number] Surgeon Thoracic Surgery 12/12/22 documented as of this encounter
--- OUTSIDE RECORDS SUMMARY | 2024-05-03 02:48 | XMS_ITS | Encounter Summary ---
Author Organization [facility] Healthcare Address [address] [place] [address] Care Team Providers Care Shirt Presser Name Role Phone Wilemr Taylor MD Unavailable [phone] Jeffrey Koch MD Unavailable [phone] Luz Lewis MD Unavailable [phone] Jay Argueta MD Primary Care Provider [phone] Raleigh Jay MD PhD Unavailable [phone] Ranjan Cazares MD Unavailable [phone] Encounter Details Date Type Department Care Team (Late st Contact Info) Description 09/07/2023 Orders Only RAD ONC TREATMENTS Miscellaneous, Not [...] on file 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 Gender Identity Not on file Sexual Orientation Not on file documented as of this encounter Plan of Treatment Not on file documented as of this encounter Procedures Procedure Name Priority Date/Time Associated Diagnosis Comments RAD ONC ARIA SESSION SUMMARY 09/07/2023 12:39 PM CDT documented in this encounter Results * RAD ONC ARIA SESSION SUMMARY (09/07/2023 12:39 PM CDT) Course Name C2_LUL_ 4 ARIA Course Plan Date 08/22/2023 8:14 AM ARIA Elapsed Days 4 ARIA Treatment Start Date 09/03/2023 ARIA Treatment Site SBRT L [id number] ARIA Dose Given To Date (cGy) 5,500 ARIA Session Dosage Given (cGy) 1,100 ARIA Plan ID SBRT L LUN ARIA Fractions Treated 4 ARIA Prescribed Dose Per Fraction (cGy) 1,100 ARIA Prescribed Total Dose (cGy) 4,400 ARIA 09/07/2023 12:3 9 PM CDT us Not In File Miscellaneous RADIATION ONCOLOGY ORD ERABLES Final Result ARIA documented in this encounter Visit Diagnoses Not on filedocumented in this encounter Care Teams Shirt Presser Relationship Specialty Start Date End Date Jay Argueta MD [address] [place] [address] PCP - General Family Practice 11/29/22 10/07/23 [place] [address] [place] [address] [address] [place] [address] Referring Physician Obstetrics and Gynecology 05/09/12 Jeffrey Koch MD [address] [place] [address] Consulting Physician Rheumatology 02/03/21 Luz Lewis MD [address] [place] [address] Referring Physician Surgery 12/14/21 Raleigh Jay MD PhD [address] [place] [address] Radiation Oncologist Radiation Oncology 12/12/22 Ranjan Cazares MD [id number] [place] [address] Surgeon Thoracic Surgery 12/12/22 documented as of this encounter
--- OUTSIDE RECORDS SUMMARY | 2024-05-03 02:48 | XMS_ITS | Encounter Summary ---
Author Organization [facility] Healthcare Address [address] [place] [address] Care Team Providers Care Home Care And Home Health Aides Teacher Name Role Phone Wilmer Taylor MD Unavailable [phone] Jeffrey Koch MD Unavailable [phone] Luz Lewis MD Unavailable [phone] Jay Argueta MD Primary Care Provider [phone] Raleigh Jay MD PhD Unavailable [phone] Ranjan Cazares MD Unavailable [phone] Encounter Details Date Type Department Care Team (Late st Contact Info) Description 09/03/2023 Orders Only RAD ONC TREATMENTS Miscellaneous, Not [...] on file 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 Gender Identity Not on file Sexual Orientation Not on file documented as of this encounter Plan of Treatment Not on file documented as of this encounter Procedures Procedure Name Priority Date/Time Associated Diagnosis Comments RAD ONC ARIA SESSION SUMMARY 09/03/2023 12:52 PM CDT documented in this encounter Results * RAD ONC ARIA SESSION SUMMARY (09/03/2023 12:52 PM CDT) Course Name C2_LUL_ 4 ARIA Course Plan Date 08/22/2023 8:14 AM ARIA Elapsed Days 0 ARIA Treatment Start Date 09/03/2023 ARIA Treatment Site SBRT L [id number] ARIA Dose Given To Date (cGy) 1,100 ARIA Session Dosage Given (cGy) 1,100 ARIA Plan ID SBRT L LUNG ARIA Fractions Treated 1 ARIA Prescribed Dose Per Fraction (cGy) 1,100 ARIA Prescribed Total Dose (cGy) 5,500 ARIA 09/03/2023 12:5 2 PM CDT us Not In File Miscellaneous RADIATION ONCOLOGY ORD ERABLES Final Result ARIA documented in this encounter Visit Diagnoses Not on filedocumented in this encounter Care Teams Home Care And Home Health Aides Teacher Relationship Specialty Start Date End Date Jay Argueta MD [address] [place] [address] PCP - General Family Practice 11/29/22 10/07/23 Wilmer Taylor MD [address] [place] [address] [address] [place] [address] Referring Physician Obstetrics and Gynecology 05/09/12 Jeffrey Koch MD [address] [place] [address] Consulting Physician Rheumatology 02/03/21 Luz Lewis MD [address] [place] [address] Referring Physician Surgery 12/14/21 Raleigh Jay MD PhD [address] [place] [address] Radiation Oncologist Radiation Oncology 12/12/22 Ranjan Cazares MD [address] [facility] [id number] [place] [address] Surgeon Thoracic Surgery 12/12/22 documented as of this encounter
--- OUTSIDE RECORDS SUMMARY | 2024-05-03 02:48 | XMS_ITS ---
Author Organization [facility] Address [address] [place] [address] Care Team Providers Care Fiscal Officer Name Role Phone Wilmer Taylor MD Unavailable [phone] Jeffrey Koch MD Unavailable [phone] Luz Lewis MD Unavailable [phone] Raleigh Jay MD PhD Unavailable [phone] Ranjan Cazares MD Unavailable [phone] Terry Bender DO Primary Care Provider [phone] Active Problems Patient Care Coordination No te Formatting of this note migh t be different from the original. Referring provider: Dr. Terry Bender Ms. Loida Guillory is a 71-year-old with a lung cancer. She initially presented with symptoms of jaw pain. On 07/22/2021 the patient underwent a CT of the neck without contrast which showed a new 14 mm nodule in the right upper lobe, suspicious for a primary bronchogenic carcinoma. Additional findings included a stable 3.6 cm mass in the superficial right parotid gland. On 08/11/2021 the patient underwent a CT of the chest without contrast which again confirmed a 14 mm nodule in the right upper lobe. Additional findings include a 4 mm nodule in the right lung apex. Additional findings included calcified pulmonary nodules in calcified left hilar lymph nodes, consistent with old granulomatous disease. On 08/23/2021 the patient underwent a CT-guided biopsy of the right upper lobe lung nodule. Final pathology showed squamous cell carcinoma. Patient is a former smoker who quit in 2016 and has a 40 pack year smoking history. Problem Noted Date Diagnosed Date Malignant neoplasm of upper lobe, left bronchus or lung 08/15/2023 Cancer Staging:Clinical stage from 08/15/2023:Stage IA2(cT1b, cN0, cM0) - Signed by Raleigh Jay MD PhD on 08/15/2023 Musculoskeletal pain 05/21/2023 Assessment & Plan (07/09/2023 10:21 AM CDT): Pain overlying right lateral chest wall along with tenderness along intercostal muscles and serratus anterior. Pain with certain shoulder movements suggests mechanical pain. Improved since last visit with HEP and tylenol 2 tabs TID PRN. Assessment & Plan (05/21/2023 12:22 PM DIRECTOR WEIGHTS AND MEASURES): Pain overlying right lateral chest wall. TTP along intercostal muscles and serratus anterior. Pain with certain shoulder movements. Pain alleviated with tylenol 1000mg daily until this wears off. Suspect acute muscle pain likely over the intercostals. Discussed PT however she defers due to expense. Will start HEP. Discussed maximizing tylenol to 3g daily and switching tylenol arthritis. Okay to take otc NSAIDs like Aleve 1 tab BID. Malignant neoplasm of lower lobe, right bronchus or lung 12/12/2022 Cancer Staging:Clinical stage from 12/12/2022:Stage IA2(cT1b, cN0, cM0) - Signed by Raleigh Jay MD PhD on 12/12/2022 Lung nodule 12/07/2022 Hilar adenopathy 11/13/2022 AIN grade III 11/21/2021 Overview (11/21/2021): Added automatically from request for surgery [id number] Bronchogenic lung cancer, right 09/12/2021 COPD (chronic obstructive pulmonary disease) Assessment & Plan (09/12/2021 4:10 PM CDT): - cont inhalers - wean O2 as tolerated History of lobectomy of lung 09/01/2021 Overview (09/01/2021): Added automatically from request for surgery [id number] senior care current use 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 drug 2021 Assessment & Plan (04/17/2024 9:13 AM DIRECTOR WEIGHTS AND MEASURES): Hepatitis negative: 02/2021 Assessment & Plan (10/08/2023 9:05 AM CDT): Hepatitis negative: 02/2021 Assessment & Plan (07/09/2023 9:21 AM CDT): Hepatitis negative: 02/2021 Assessment & Plan (05/21/2023 10:12 AM DIRECTOR WEIGHTS AND MEASURES): Hepatitis negative: 02/2021 Assessment & Plan (02/12/2023 11:59 AM CDT): Hepatitis negative: 02/2021 Assessment & Plan (10/09/2022 1:07 PM CDT): Hepatitis negative: 02/2021 Assessment & Plan (05/15/2022 10:43 AM DIRECTOR WEIGHTS AND MEASURES): Hepatitis negative: 02/2021 Assessment & Plan (01/16/2022 10:56 AM CDT): Hepatitis negative: 02/2021 Assessment & Plan (10/17/2021 12:11 PM CDT): Hepatitis negative: 02/2021 Assessment & Plan (06/20/2021 10:12 AM DIRECTOR WEIGHTS AND MEASURES): Hepatitis negative: 02/2021 Rheumatoid arthritis involvi ng both hands with positive rheumatoid factor (CMS/HCC) 02/28/2021 Overview (03/01/2021): Labs (02/28/2021): Cr 0.98, WBC 11.4, ESR 37, CRP 3.8 Hepatitis negative: 02/2021 Assessment & Plan (04/17/2024 9:44 AM DIRECTOR WEIGHTS AND MEASURES): Cdai in remission. Seropositive RA (+RF, CCP) that remains well controlled with MTX 12.5mg weekly. Main complaints are pain involving the R 4th PIP joint and cervical spine which are degenerative however is responding well to OTC Voltaren gel and tylenol PRN. -Continue MTX 12.5mg weekly and folic acid 1mg daily. -Previously discussed Turmeric 1500mg daily in divided doses. -Continue tylenol PRN -Will check routine labs today. -Follow up in 3-4 months. Sooner if needed. Assessment & Plan (10/08/2023 10:30 AM CDT): Low cdai. Seropositive RA (+RF, CCP) that remains well controlled with MTX 12.5mg weekly. Main complaints are pain involving the R 4th PIP joint and cervical spine which are degenerative however is responding well to OTC Voltaren gel. Will continue MTX 12.5mg weekly and folic acid 1mg daily. Previously discussed Turmeric 1500mg daily in divided doses. Will check routine labs today. Follow up in 3-4 months. Sooner if needed. Assessment & Plan (07/09/2023 10:22 AM CDT): Low cdai. Seropositive RA (+RF, CCP) that remains well controlled with MTX 12.5mg weekly. Main complaints are pain involving the R 4th PIP joint and cervical spine which are degenerative however is responding well to OTC Voltaren gel. Will continue MTX 12.5mg weekly and folic acid 1mg daily. Previously discussed Turmeric 1500mg daily in divided doses. Will check routine labs next visit. Follow up in 3-4 months. Sooner if needed. Assessment & Plan (05/21/2023 12:18 PM DIRECTOR WEIGHTS AND MEASURES): Low cdai. Seropositive RA (+RF, CCP) that remains well controlled with MTX 12.5mg weekly. Main complaints are pain involving the R 4th PIP joint and cervical spine which are degenerative however is responding well to Voltaren gel otc. C/o L 4th DIP joint pain so recommend aleve otc BID prn and tylenol 3g daily PRN. Will continue MTX 12.5mg weekly and folic acid 1mg daily. Discussed risk of MTX associated ILD and that more recent studies are suggesting that ILD was already present prior to initiating MTX and was then discovered or that ILD may be stemming from inflammatory process like RA. Previously discussed Turmeric 1500mg daily in divided doses. Routine labs today. Follow up in 3-4 months. Sooner if needed. Seen with Dr. Koch. Assessment & Plan (02/12/2023 11:59 AM CDT): Low cdai. Seropositive RA (+RF, CCP) that remains well controlled with MTX 12.5mg weekly. Main complaints are pain involving the R 4th PIP joint and cervical spine which are degenerative however is responding well to Voltaren gel otc. C/o L 4th DIP joint pain so recommend aleve otc BID prn and tylenol 3g daily PRN. Will continue MTX 12.5mg weekly and folic acid 1mg daily. Discussed Turmeric 1500mg daily in divided doses. Routine labs today. Follow up in 3-4 months. Sooner if needed. Assessment & Plan (10/09/2022 1:33 PM CDT): Low cdai. Seropositive RA (+RF, CCP) that remains well controlled with MTX 12.5mg weekly. Main complaints are pain involving the R 4th PIP joint and cervical spine which are degenerative however is responding well to Voltaren gel otc. C/o L 4th DIP joint pain so recommend aleve otc BID prn and tylenol 3g daily PRN. Will continue MTX 12.5mg weekly and folic acid 1mg daily. Routine labs today. Follow up in 3-4 months. Sooner if needed. Assessment & Plan (05/15/2022 10:55 AM DIRECTOR WEIGHTS AND MEASURES): Low cdai. Seropositive RA (+RF, CCP) that remains well controlled with MTX 12.5mg weekly. Main complaints are pain involving the R 4th PIP joint and cervical spine which are degenerative however is responding well to Voltaren gel otc. Will continue MTX 12.5mg weekly and folic acid 1mg daily. Routine labs today. Follow up in 3-4 months. Sooner if needed. Assessment & Plan (01/16/2022 11:10 AM CDT): Low cdai. Seropositive RA (+RF, CCP) that remains well controlled with MTX 12.5mg weekly. Main complaints are pain involving the R 4th PIP joint and cervical spine which are degenerative however is responding well to Voltaren gel otc. Will continue MTX 12.5mg weekly and folic acid 1mg daily. Routine labs today. Follow up in 3 months. Sooner if needed. Assessment & Plan (10/17/2021 12:09 PM CDT): Seropositive RA (+RF, CCP) that remains well controlled with MTX 12.5mg weekly. Held MTX for 2 weeks post surgery but denies any flares. Main complaints are pain involving the R 4th PIP joints and cervical spine which are degenerative however is responding well to Voltaren gel otc. Will continue MTX 12.5mg weekly and folic acid 1mg daily. Routine labs today. Follow up in 3 months. Sooner if needed. Assessment & Plan (06/20/2021 10:11 AM DIRECTOR WEIGHTS AND MEASURES): Seropositive RA (+RF, CCP) that remains well controlled with MTX 12.5mg weekly. Main complaints are pain involving the R 4th PIP joints and cervical spine which are degenerative however is responding well to Voltaren gel otc. Will continue MTX 12.5mg weekly and folic acid 1mg daily.Routine labs today. Follow up in 3 months. Sooner if needed. Assessment & Plan (03/14/2021 10:50 AM DIRECTOR WEIGHTS AND MEASURES): Seropositive RA (+RF, CCP) that remains well controlled with MTX 12.5mg weekly. Main complaints are pain involving the R 4th PIP joints and cervical spine which are degenerative however is responding well to Voltaren gel otc. Will continue MTX 12.5mg weekly and folic acid 1mg daily. Follow up in 3 months. Sooner if needed. Seen with Dr. Koch. Assessment & Plan (02/28/2021 9:54 AM DIRECTOR WEIGHTS AND MEASURES): 70-year-old female with PMHx of HTN, COPD, GERD, and vulvar cancer s/p resection here to establish care for previous diagnosis of seropositive rheumatoid arthritis (dx 2015) which remains well controlled with MTX 12.5mg weekly. Main complaints are pain involving the R 4th PIP joint and cervical spine. Cervical spine pain appears to be due to DJD. Symptoms and exam appear consistent with prior diagnosis of rheumatoid arthritis. Will order appropriate serologies to further evaluate before considering increasing MTX. Will request recent XR results for further review. Follow up in 2 weeks. Sooner if needed. Seen with Dr. Koch. Neck pain 02/28/2021 Assessment & Plan (04/17/2024 9:13 AM DIRECTOR WEIGHTS AND MEASURES): Pain worse with activity and improved with rest. Denies radiating pain. 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 Patient defers PT and worried about NSAIDs with her current medication regimen. Taking tylenol otc prn, voltaren gel, and CBD cream with some relief. Continue home exercises. Ordered repeat XR to better evaluate for any progression of degenerative changes but has not done this and will defer for now as she defers PT or injections per PM&R. Assessment & Plan (10/08/2023 10:30 AM CDT): Pain worse with activity and improved with rest. Denies radiating pain. 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 Patient defers PT and worried about NSAIDs with her current medication regimen. Taking tylenol otc prn, voltaren gel, and CBD cream with some relief. Continue home exercises. Ordered repeat XR to better evaluate for any progression of degenerative changes but has not done this and will defer for now as she defers PT or injections per PM&R. Assessment & Plan (07/09/2023 10:20 AM CDT): Pain worse with activity and improved with rest. Denies radiating pain. 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 Patient defers PT and worried about NSAIDs with her current medication regimen. Taking tylenol otc prn, voltaren gel, and CBD cream with some relief. Continue home exercises. Ordered repeat XR to better evaluate for any progression of degenerative changes but has not done this and will defer for now as she defers PT or injections per PM&R. Assessment & Plan (05/21/2023 12:11 PM DIRECTOR WEIGHTS AND MEASURES): Pain worse with activity and improved with rest. Denies radiating pain. 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 Patient defers PT and worried about NSAIDs with her current medication regimen. Taking tylenol otc prn with some relief. Discussed increasing tylenol to 2 tabs BID. Using Voltaren gel otc prn with good relief. Continue home exercises. Consider repeating XR to better evaluate for any progression of degenerative changes. Should pain worsen, consider formal PT vs referral to PM&R. Assessment & Plan (10/09/2022 1:30 PM CDT): Pain worse with activity and improved with rest. Denies radiating pain. 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 Patient defers PT and worried about NSAIDs with her current medication regimen. Taking tylenol otc prn with some relief. Using Voltaren gel otc prn with good relief. Continue home exercises. Assessment & Plan (05/15/2022 10:43 AM DIRECTOR WEIGHTS AND MEASURES): Pain worse with activity and improved with rest. Denies radiating pain. 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 Patient defers PT and worried about NSAIDs with her current medication regimen. Taking tylenol otc prn with some relief. Using Voltaren gel otc prn with good relief. Continue home exercises. Assessment & Plan (01/16/2022 12:28 PM CDT): Pain worse with activity and improved with rest. Denies radiating pain. 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 Patient defers PT and worried about NSAIDs with her current medication regimen. Taking tylenol otc prn with some relief. Using Voltaren gel otc prn with good relief. Continue home exercises. Assessment & Plan (06/20/2021 10:11 AM DIRECTOR WEIGHTS AND MEASURES): Pain worse with activity and improved with rest. Denies radiating pain. 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 Patient defers PT and worried about NSAIDs with her current medication regimen. Taking tylenol otc prn with some relief. Using Voltaren gel otc prn with good relief. Continue home exercises. Assessment & Plan (03/14/2021 10:52 AM DIRECTOR WEIGHTS AND MEASURES): Pain worse with activity and improved with rest. Denies radiating pain. 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 Patient defers PT and worried about NSAIDs with her current medication regimen. Taking tylenol otc prn with some relief. Using Voltaren gel otc prn with good relief. Will give handout of home exercises for neck pain. Assessment & Plan (02/28/2021 9:57 AM DIRECTOR WEIGHTS AND MEASURES): Pain worse with activity and improved with rest. Denies radiating pain. Previous XR showed arthritis and scoliosis per patient report. Patient defers PT and worried about NSAIDs with her current medication regimen. Taking tylenol otc prn with some relief. Discussed conservative tx with PT vs HEP, tylenol, heat, massage, and rest. Will request recent imaging of the cervical spine for further review. 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 Void check ~1500 - pain control dIVP and oral pain meds - ADAT - wean O2 as tolerated - DVT PPX - PT to eval and treat Current Oncology Plans No current plan information found. Past Plans No past plan information found. Radiation Treatments * Plan Last Treated On Elapsed Days Fractions Treated Prescribed Fraction Dose Prescribed Total Dose SBRT L LUN 09/07/2023 4 4 1,100 cGy 4,400 cGy SBRT L LUNG 09/03/2023 0 1 1,100 cGy 5,500 cG y SBRT RLL LUNG 08/31/2023 4 5 1,100 cGy 5,500 cGy Reference Point Last Treated On Elapsed Days Session Dose Total Dose SBRT L [id number] 09/07/2023 4 1,100 cGy 5,500 cG y [id number] 08/31/2023 4 0 cGy 5,500 cGy
--- OUTSIDE RECORDS SUMMARY | 2024-05-03 02:48 | XMS_ITS | Encounter Summary ---
Author Organization [facility] Address [address] [facility] [address] [place] [address] Phone Care Team Providers Care Oyster Cultivator Name Role Phone Wilmer Taylor MD Unavailable [phone] Jeffrey Koch MD Unavailable [phone] Luz Lewis MD Unavailable [phone] Raleigh Jay MD PhD Unavailable [phone] Ranjan Cazares MD Unavailable [phone] Terry Bender DO Primary Care Provider [phone] Encounter Details Date Type Department Care Team (Late st Contact Info) Description 01/09/2024 Telephone [facility] Oncology [address] [place] [address] Medical Office [facility] [address] [address] Christine Traore, YONNYT Social History Tobacco Use Types Packs/Day Years [...] on file Legal 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 Gender Identity Not on file Sexual Orientation Not on file documented as of this encounter Miscellaneous Notes * Telephone Encounter - Christine Traore CLT - 01/09/2024 1:21 PM CDT LMOM TO SCHEDULE APPT documented in this encounter Plan of Treatment Not on file documented as of this encounter Visit Diagnoses Not on filedocumented in this encounter Care Teams Oyster Cultivator Relationship Specialty Start Date End Date Terry Bender DO [address] [place] [address] PCP - General Internal Medicine 12/07/23 Wilmer Taylor MD [facility] [address] [place] [address] Referring Physician Obstetrics and Gynecology 05/09/12 Jeffrey Koch MD [address] [place] [address] Consulting Physician Rheumatology 02/03/21 Luz Lewis MD [address] [place] [address] Referring Physician Surgery 12/14/21 Raleigh Jay MD PhD [address] [place] [address] Radiation Oncologist Radiation Oncology 12/12/22 Ranjan Cazares MD [id number] [place] [address] Surgeon Thoracic Surgery 12/12/22 documented as of this encounter
--- OUTSIDE RECORDS SUMMARY | 2024-05-03 02:48 | XMS_ITS | Encounter Summary ---
Author Organization [facility] Address [address] [place] [address] Care Team Providers Care Cut Roll Machine Operator Name Role Phone Wilmer Taylor MD Unavailable [phone] Jeffrey Koch MD Unavailable [phone] Luz Lewis MD Unavailable [phone] [facility] PhD Unavailable [phone] Ranjan Cazares MD Unavailable [phone] Terry Bender DO Primary Care Provider [phone] Encounter Details Date Type Department Care Team (Late st Contact Info) Description 03/19/2024 Telephone [facility] Radiation Oncology [address] [place] [id number] Radha Riley, SENIOR COGNOS DEVELOPER Social History Tobacco Use Types Packs/Day Years [...] on file Legal Sex 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 Her phone number will not go through so I sent her a Yebhi message and mailed an appointment reminder. ER DRIER FEEDER documented in this encounter Plan of Treatment Not on file documented as of this encounter Visit Diagnoses Not on filedocumented in this encounter Care Teams Cut Roll Machine Operator Relationship Specialty Start Date End Date Terry Bender DO [address] [facility] [address] [place] [address] PCP - General Internal Medicine 12/07/23 Wilmer Taylor MD [address] [facility] [address] [place] [address] Referring Physician Obstetrics and Gynecology 05/09/12 Jeffrey Koch MD [address] [place] [address] Consulting Physician Rheumatology 02/03/21 Luz Lewis MD [address] [place] [address] Referring Physician Surgery 12/14/21 Raleigh Jay MD PhD [address] [place] [address] Radiation Oncologist Radiation Oncology 12/12/22 Ranjan Cazares MD [id number] [place] [address] Surgeon Thoracic Surgery 12/12/22 documented as of this encounter
--- OUTSIDE RECORDS SUMMARY | 2024-05-03 02:48 | XMS_ITS | Encounter Summary ---
Author Organization [facility] Healthcare Address [address] [place] [address] Care Team Providers Care Data Entry Assistant Name Role Phone Wilmer Taylor MD Unavailable [phone] Jeffrey Koch MD Unavailable [phone] Luz Lewis MD Unavailable [phone] Jay Argueta MD Primary Care Provider [phone] Raleigh Jay MD PhD Unavailable [phone] Ranjan Cazares MD Unavailable [phone] Encounter Details Date Type Department Care Team (Late st Contact Info) Description 09/06/2023 12:30 PM CDT Treatment [facility] Radiation Oncology [address] [place] [id number] Raleigh Jay MD PhD [address] [place] [address] Social History Tobacco Use Types Packs/Day Years [...] on file 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 Gender Identity Not on file Sexual Orientation Not on file documented as of this encounter Plan of Treatment Not on file documented as of this encounter Visit Diagnoses Not on filedocumented in this encounter Care Teams Data Entry Assistant Relationship Specialty Start Date End Date Jay Argueta MD [address] [place] [address] PCP - General Family Practice 11/29/22 10/07/23 Wilmer Taylor MD [facility] [address] [address] Referring Physician Obstetrics and Gynecology 05/09/12 Jeffrey Koch MD [address] [place] [address] Consulting Physician Rheumatology 02/03/21 Luz Lewis MD [address] [place] [address] Referring Physician Surgery 12/14/21 Raleigh Jay MD PhD [address] [place] [address] Radiation Oncologist Radiation Oncology 12/12/22 Ranjan Cazares MD [address] [facility] [id number] [place] [address] Surgeon Thoracic Surgery 12/12/22 documented as of this encounter
--- OUTSIDE RECORDS SUMMARY | 2024-05-03 02:48 | XMS_ITS | Encounter Summary ---
Author Organization [facility] Healthcare Address [address] [place] [address] Care Team Providers Care Dumpling Machine Operator Name Role Phone Wilmer Taylor MD Unavailable [phone] Jeffrey Koch MD Unavailable [phone] Luz Lewis MD Unavailable [phone] Raleigh Jay MD PhD Unavailable [phone] Ranjan Cazares MD Unavailable [phone] Terry Bender DO Primary Care Provider [phone] Reason for Referral * MRI/CAT/PET Scan (Routine) - Closed Specialty Diagnoses / Procedures Referred By Contac t Referred To Contact Radiology Diagnoses Malignant neoplasm of upper lobe, left bronchus or lung (HCC) Malignant neoplasm of upper lobe, right bronchus or lung (HCC) Malignant neoplasm of lower lobe, right bronchus or lung (HCC) Procedures CT Chest W Contrast Raleigh Jay MD PhD [address] [place] [address] Phone: tel: fax: [address] [phone] Referral ID Status Reason Start Date Expiration Date Visits Re quested Visits Authorized [id number] Closed 01/11/2024 02/09/2025 1 1 DING COMPONENTS DESIGNER Reason for Visit * MRI/CAT/PET Scan (Routine) - Closed Specialty Diagnoses / Procedures Referred By Contac t Referred To Contact Radiology Diagnoses Malignant neoplasm of upper lobe, left bronchus or lung (HCC) Malignant neoplasm of upper lobe, right bronchus or lung (HCC) Malignant neoplasm of lower lobe, right bronchus or lung (HCC) Procedures CT Chest W Contrast Raleigh Jay MD PhD [address] [place] [address] Phone: tel: fax: [address] [phone] Referral ID Status Reason Start Date Expiration Date Visits Re quested Visits Authorized [id number] Closed 01/11/2024 02/09/2025 1 1 Encounter Details Date Type Department Care Team (Latest Contact Info) Description 04/11/2024 2:03 PM BUILDING COMPONENTS DESIGNER - 04/11/2024 11:59 PM BUILDING COMPONENTS DESIGNER Hospital Encounter [facility] [address] [place] [id number] Malignant neoplasm of upper lobe, left bronchus or lung (HCC); Malignant neoplasm of upper lobe, right bronchus or lung (HCC); Malignant neoplasm of lower lobe, right bronchus or lung (HCC) Discharge Disposition: Discharge to home or self care Social History Tobacco Use Types Packs/Day Years [...] on file Legal Sex Female 10:10 AM BUILDING COMPONENTS DESIGNER Gender Identity Not on file Sexual Orientation Not on file documented as of this encounter Medications at Time of Discharge acetaminophen (TYLENOL) 500 mg tablet Take 2 tablets (1,000 mg total) by mouth every 6 (six) hours as needed for pain 60 tablet 2 04/08/2019 alendronate (FOSAMAX) 70 mg tablet Take 1 tablet (70 mg total) by mouth every 7 days Take in the morning with a full glass of water, on an empty stomach, and do not take anything else by mouth or lie down for the next 30 min. amLODIPine (NORVASC) 10 mg tabletIndication s:hypertension Take 1 tablet (10 mg total) by mouth daily after lunch Monitor BP at home and f/u with primary care doctor for medication management. 09/14/2021 Anoro Ellipta 62.5-25 mcg/actuation blister with device 04/09/2023 ascorbic acid (VITAMIN C) 500 mg tablet,chewableI ndications:Vitam in C Deficiency Take 1 tablet/chew tab (500 mg total) by mouth daily after dinner Supplement aspirin 81 mg enteric coated tabletIndication s:prevention of thrombosis Take 1 tablet (81 mg total) by mouth daily after lunch calcium carbonate-vitami n D3 1,500 mg (600mg elemental) -800 unit per tabletIndication s:hypocalcemia Take 2 tablets by mouth daily after lunch famotidine (PEPCID) 20 mg tabletIndication s:gastroesophage al reflux disease Take 1 tablet (20 mg total) by mouth every morning 02/26/2021 folic acid (FOLVITE) 1 mg tabletIndication s:Folate Deficiency Take 1 tablet (1 mg total) by mouth daily after lunch 90 tablet 3 10/08/2023 losartan (COZAAR) 50 mg tablet Take 1 tablet (50 mg total) by mouth daily 11/08/2022 omega 5-qxm-cov-fish oil 100-160-1,000 mg capsuleIndicatio ns:hypertriglyce ridemia Take 1 capsule by mouth daily after dinner polyethylene glycol (MIRALAX) 17 gram packetIndication s:constipation Take 1 packet (17 g total) by mouth daily 09/15/2021 budesonide-formo teroL (SYMBICORT) 160-4.5 mcg/actuation inhalerIndicatio ns:Bronchospasm Prevention with COPD Inhale 2 puffs 2 (two) times a day 4 methotrexate 2.5 mg tablet TAKE 5 TABLETS BY MOUTH ONCE WEEKLY ON WEDNESDAYS 60 tablet 1 01/03/2024 4 documented as of this encounter Discharge Disposition Disposition Code Departure Means Destination Discharge to home or self care documented in this encounter Plan of Treatment Not on file documented as of this encounter Procedures Procedure Name Priority Date/Time Associated Diagnosis Comments CT CHEST W CONTRAST Schedule Routine, Read Routine (OP Routine) 04/11/2024 2:52 PM BUILDING COMPONENTS DESIGNER Malignant neoplasm of upper lobe, left bronchus or lung (HCC) Malignant neoplasm of upper lobe, right bronchus or lung (HCC) Malignant neoplasm of lower lobe, right bronchus or lung (HCC) documented in this encounter Results * CT Chest W Contrast (04/11/2024 2:52 PM BUILDING COMPONENTS DESIGNER) Anatomical Region Laterality Modality Body N/A Computed Tomogra phy 04/22/2024 11:4 9 AM BUILDING COMPONENTS DESIGNER Narrative 04/22/2024 12:04 PM BUILDING COMPONENTS DESIGNER EXAM DESCRIPTION: CT CHEST W CONTRAST REASON [...] PM T: ??04/22/2024 12:04 PM Report ID: [id number] Reading Location: ??[id number] Procedure Note Dakota Villar MD - 04/22/2024 EXAM DESCRIPTION: CT [...] Villar M.D. RB: MIGUEL ÁNGEL Report ID: [id number] Reading Location: [place] [address] Raleigh Jay MD PhD IMG CT PROCEDURES Lupe l Result documented in this encounter Visit Diagnoses Diagnosis Malignant neoplasm of upper lobe, left bronchus or lung (HCC) Malignant neoplasm of upper lobe, right bronchus or lung (HCC) Malignant neoplasm of lower lobe, right bronchus or lung (HCC) documented in this encounter Administered Medications Inactive Administered Medications - up to 3 most recent administrations Medication Order MAR Action Action Date Dose Rate Site ioversoL (OPTIRAY 350) syringe 75 mL 75 mL, intravenous, Once in imaging, contrast, Starting on Sun04/11/24 at 1428, For 1 dose Contrast Given 04/11/2024 2:36 PM BUILDING COMPONENTS DESIGNER 75 mL documented in this encounter Orders Medications Ordered That Rubén ht Not Have Been Administered Count Last Ordered Date First Ordered Date ioversoL (OPTIRAY 350) syringe 75 mL 1 03/24 documented in this encounter Care Teams Dumpling Machine Operator Relationship Specialty Start Date End Date Terry Bender DO [address] [place] [address] PCP - General Internal Medicine 12/07/23 Wilmer Taylor MD [address] [place] [address] [address] [place] [address] Referring Physician Obstetrics and Gynecology 05/09/12 Jeffrey Koch MD [address] [place] [address] Consulting Physician Rheumatology 02/03/21 Luz Lewis MD [address] [place] [address] Referring Physician Surgery 12/14/21 Raleigh Jay MD PhD [address] [place] [address] Radiation Oncologist Radiation Oncology 12/12/22 Ranjan Cazares MD [address] [facility] [id number] [place] [address] Surgeon Thoracic Surgery 12/12/22 documented as of this encounter
--- OUTSIDE RECORDS SUMMARY | 2024-05-03 02:48 | XMS_ITS | Encounter Summary ---
Author Organization [facility] Healthcare Address [address] [place] [address] Care Team Providers Care Raw Stock Dyeing Machine Tender Name Role Phone Wilmer Taylor MD Unavailable [phone] Jeffrey Koch MD Unavailable [phone] Luz Lewis MD Unavailable [phone] Raleigh Jay MD PhD Unavailable [phone] Ranjan Cazares MD Unavailable [phone] Gabriele Adams NP Primary Care Provider [phone] Reason for Referral * MRI/CAT/PET Scan (Routine) - Closed Specialty Diagnoses / Procedures Referred By Contac t Referred To Contact Radiology Diagnoses Malignant neoplasm of upper lobe, right bronchus or lung (HCC) Malignant neoplasm of lower lobe, right bronchus or lung (HCC) Malignant neoplasm of upper lobe, left bronchus or lung (HCC) Procedures CT chest with contrast Raleigh Jay MD PhD [address] [place] [address] Phone: tel: fax: [address] [phone] Referral ID Status Reason Start Date Expiration Date Visits Re quested Visits Authorized [id number] Closed 09/06/2023 10/05/2024 1 1 Reason for Visit * MRI/CAT/PET Scan (Routine) - Closed Specialty Diagnoses / Procedures Referred By Contac t Referred To Contact Radiology Diagnoses Malignant neoplasm of upper lobe, right bronchus or lung (HCC) Malignant neoplasm of lower lobe, right bronchus or lung (HCC) Malignant neoplasm of upper lobe, left bronchus or lung (HCC) Procedures CT chest with contrast Raleigh Jay MD PhD [address] [place] [address] Phone: tel: fax: [address] [phone] Referral ID Status Reason Start Date Expiration Date Visits Re quested Visits Authorized [id number] Closed 09/06/2023 10/05/2024 1 1 Encounter Details Date Type Department Care Team (Latest Contact Info) Description 11/30/2023 10:35 AM CDT - 11/30/2023 11:59 PM CDT Hospital Encounter [facility] [address] [place] [id number] Malignant neoplasm of upper lobe, right bronchus or lung (HCC); Malignant neoplasm of lower lobe, right bronchus or lung (HCC); Malignant neoplasm of upper lobe, left bronchus or lung (HCC) Discharge Disposition: Discharge [...] file Legal Sex Female 10:10 AM MANAGER CRITICAL CARE UNIT Gender Identity Not on file Sexual Orientation [...] mg total) by mouth daily 11/08/2022 omega 9-urj-zwp-fish oil 100-160-1,000 mg capsuleIndicatio ns:hypertriglyce ridemia Take 1 capsule by mouth daily after dinner polyethylene glycol (MIRALAX) 17 gram packetIndication s:constipation Take 1 packet (17 g total) by mouth daily 09/15/2021 budesonide-formo teroL (SYMBICORT) 160-4.5 mcg/actuation inhalerIndicatio ns:Bronchospasm Prevention with COPD Inhale 2 puffs 2 (two) times a day 4 methotrexate 2.5 mg tablet TAKE 5 TABLETS BY MOUTH EVERY 7 DAYS EVERY SUNDAY 60 tablet 1 07/24/2023 4 documented as of this encounter Discharge Disposition Disposition Code Departure Means Destination Discharge to home or self care documented in this encounter Plan of Treatment Not on file documented as of this encounter Procedures Procedure Name Priority Date/Time Associated Diagnosis Comments CT CHEST W CONTRAST Schedule Routine, Read Routine (OP Routine) 11/30/2023 12:02 PM CDT Malignant neoplasm of upper lobe, right bronchus or lung (HCC) Malignant neoplasm of lower lobe, right bronchus or lung (HCC) Malignant neoplasm of upper lobe, left bronchus or lung (HCC) documented in this encounter Results * CT chest with contrast (11/30/2023 12:02 PM CDT) Anatomical Region Laterality Modality Body N/A Computed Tomogra phy 12/03/2023 6:57 AM CDT Narrative 12/03/2023 11:22 AM CDT EXAM DESCRIPTION: ?? CT CHEST W CONTRAST REASON FOR STUDY: ?? Non-small cell lung cancer (NSCLC), non-metastatic, assess treatment response ?? Follow up lung cancer, diagnosed in 2021, received radiation and surgery, no current complaints . 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 TECHNIQUE: CT of the chest performed with intravenous contrast using helical scanning technique with dynamic intravenous contrast injection. Reconstructed coronal and sagittal MPR images reviewed. All images stored on PACS. ?? 3D MIP images rendered on independent workstation and reviewed at time of interpretation. ??Automated exposure control was used as a dose optimization technique for this examination. CONTRAST TYPE/DOSE: ?? 75mL of IOVERSOL 350 MG IODINE/ML INTRAVENOUS SYRINGE ?? injected via ?? intravenous COMPARISON: ?? 07/13/2023 03/22/2023 PET-CT 08/08/2023 REFERENCE: Per ACR white paper recommendations, unless otherwise specified no follow-up imaging is recommended for incidental renal and adrenal lesions per consensus recommendations based on imaging criteria. Further lab evaluation could be pursued based on clinical findings. FINDINGS: HARDWARE/LINES/TUBES: ??None. VASCULATURE: ??No large central pulmonary embolism. ?? Main pulmonary artery measures within normal limits. ?? Multifocal atherosclerotic changes of the thoracic aorta and its major branches. MEDIASTINUM/HEART: ??Heart size within normal limits. No significant pericardial effusion. ??Esophagus is unremarkable. ?? Similar rightward shift of the mediastinum secondary to right upper lobectomy. ??Increased heterogeneously enhancing nodular soft tissue along the right medial pleural surface and abutting the SVC/pericardium measuring proximally 3.1 x 1.3 cm (2; 40). ??Of note this region was FDG avid on PET-CT 08/08/2023 CORONARY ARTERY CALCIFICATION: ??Advanced multivessel atherosclerotic calcifications. LYMPH NODES: ??Multifocal calcified mediastinal and hilar lymph nodes likely reflecting sequela of previous granulomatous disease. ??No pathologically enlarged lymphadenopathy. AIRWAY: ??Central airways are patent. ??Secretions/debris within bilateral lower lobe segmental bronchi with multifocal distal airway mucous plugging. LUNGS: ??Status post right upper lobe lobectomy. ??Background of moderate centrilobular and paraseptal emphysematous changes. ??Biapical pleural-parenchymal scarring. ??Similar-appearing basilar predominant peripheral reticulation, architectural distortion, and subpleural cystic change compatible with pulmonary fibrosis. ??Calcified granulomas, likely sequela of previous granulomatous disease. Similar-appearing small right pleural effusion. ??Interval decrease in size of previously seen lingular FDG avid nodule now measuring 5 mm, previously measured 1.2 cm (3; 46). ??Interval increase in 9 mm anterior left lower lobe irregular nodule, previously measured proximally 4 mm on PET-CT dated 08/08/2023 (series 3, image 43). UPPER ABDOMEN: ??Hepatic and splenic calcified granulomas. ??No acute abnormality within the visualized abdomen. BONES/SOFT TISSUES: ??No aggressive appearing osseous lesions. ??No acute osseous abnormality. ?Normal-appearing thyroid. IMPRESSION: Interval increase in heterogeneously enhancing nodular soft tissue at the right medial pleura which previously demonstrated FDG avidity concerning for malignancy. Interval increase in irregular left lower lobe 9 mm nodule concerning for malignancy. Decreased lingular nodule with adjacent linear opacity likely reflecting postradiation treatment change. Secretions and debris within bilateral lower lobes with multifocal distal mucous plugging. Similar-appearing small right pleural effusion. 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 Additional incidental and chronic findings as above. THIS IS AN ELECTRONICALLY VERIFIED FINAL REPORT 12/03/2023 11:22 AM - Electronically signed by ??Christian Molina M.D. NS: NS D: ??12/03/2023 11:22 AM T: ??12/03/2023 11:22 AM Report ID: [id number] Reading Location: ??[id number] Procedure Note Christian Molina MD - 12/03/2023 EXAM DESCRIPTION: CT CHEST W CONTRAST REASON FOR STUDY: Non-small cell lung cancer (NSCLC), non-metastatic,assess treatment response Follow up lung cancer, diagnosed in 2021, received radiation and surgery,no current complaints . History of well-differentiated squamous cellcarcinoma of the right upper lobe status post right upper lobectomy and lymph node dissection August 2021 with more recent diagnosis of non-small cell lungcancer of the right lower lobe status post external beam radiation therapycompleted December 2022 and left upper lobe non-small cell lung cancer status post empiric external beam radiation completed August 2023. TECHNIQUE: CT of the chest performed with intravenous contrast usinghelical scanning technique with dynamic intravenous contrast injection.Reconstructed coronal and sagittal MPR images reviewed. All images stored on PACS. 3DMIP images rendered on independent workstation and reviewed at time of interpretation. Automated exposure control was used as a doseoptimization technique for this examination. CONTRAST TYPE/DOSE: 75mL of IOVERSOL 350 MG IODINE/ML INTRAVENOUSSYRINGE injected via intravenous COMPARISON: 07/13/2023 03/22/2023 PET-CT 08/08/2023 REFERENCE: Per ACR white paper recommendations, unless otherwise specifiedno follow-up imaging is recommended for incidental renal and adrenal lesionsper consensus recommendations based on imaging criteria. Further labevaluation could be pursued based on clinical findings. FINDINGS: HARDWARE/LINES/TUBES: None. VASCULATURE: No large central pulmonary embolism. Main pulmonary artery measures within normal limits. Multifocal atherosclerotic changes of the thoracic aorta and its major branches. MEDIASTINUM/HEART: Heart size within normal limits. No significant pericardial effusion. Esophagus is unremarkable. Similar rightwardshift of the mediastinum secondary to right upper lobectomy. Increasedheterogeneously enhancing nodular soft tissue along the right medial pleural surface and abutting the SVC/pericardium measuring proximally 3.1 x 1.3 cm (2; 40).Of note this region was FDG avid on PET-CT 08/08/2023 CORONARY ARTERY CALCIFICATION: Advanced multivessel atherosclerotic calcifications. LYMPH NODES: Multifocal calcified mediastinal and hilar lymph nodeslikely reflecting sequela of previous granulomatous disease. No pathologically enlarged lymphadenopathy. AIRWAY: Central airways are patent. Secretions/debris within bilaterallower lobe segmental bronchi with multifocal distal airway mucous plugging. LUNGS: Status post right upper lobe lobectomy. Background of moderate centrilobular and paraseptal emphysematous changes. Biapical pleural-parenchymal scarring. Similar-appearing basilar predominant peripheral reticulation, architectural distortion, and subpleural cystic change compatible with pulmonary fibrosis. Calcified granulomas, likely sequela of previous granulomatous disease. Similar-appearing small right pleural effusion. Interval decrease in sizeof previously seen lingular FDG avid nodule now measuring 5 mm, previously measured 1.2 cm (3; 46). Interval increase in 9 mm anterior left lowerlobe irregular nodule, previously measured proximally 4 mm on PET-CT dated 08/08/2023 (series 3, image 43). UPPER ABDOMEN: Hepatic and splenic calcified granulomas. No acute abnormality within the visualized abdomen. BONES/SOFT TISSUES: No aggressive appearing osseous lesions. No acute osseous abnormality. Normal-appearing thyroid. IMPRESSION: Interval increase in heterogeneously enhancing nodular soft tissue at the right medial pleura which previously demonstrated FDG avidity concerningfor malignancy. Interval increase in irregular left lower lobe 9 mm nodule concerning for malignancy. Decreased lingular nodule with adjacent linear opacity likely reflecting postradiation treatment change. Secretions and debris within bilateral lower lobes with multifocal distal mucous plugging. Similar-appearing small right pleural effusion. 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 Additional incidental and chronic findings as above. THIS IS AN ELECTRONICALLY VERIFIED FINAL REPORT 12/03/2023 11:22 AM - Electronically signed by Christian Molina M.D. NS: NS Report ID: [id number] Reading Location: [place] [address] Raleigh Jay MD PhD IMG CT PROCEDURES Lupe l Result documented in this encounter Visit Diagnoses Diagnosis Malignant neoplasm of upper lobe, right bronchus or lung (HCC) Malignant neoplasm of lower lobe, right bronchus or lung (HCC) Malignant neoplasm of upper lobe, left bronchus or lung (HCC) documented in this encounter Administered Medications Inactive Administered Medications - up to 3 most recent administrations Medication Order MAR Action Action Date Dose Rate Site ioversoL (OPTIRAY 350) syringe 75 mL 75 mL, intravenous, Once in imaging, contrast, Starting on Sun11/30/23 at 1203, For 1 dose Contrast Given 11/30/2023 12:03 PM CDT 75 mL Right Antecubital documented in this encounter Orders Medications Ordered That Rubén ht Not Have Been Administered Count Last Ordered Date First Ordered Date ioversoL (OPTIRAY 350) syringe 75 mL 1 12/2023 documented in this encounter Care Teams Raw Stock Dyeing Machine Tender Relationship Specialty Start Date End Date Gabriele Adams NP [address] [facility] [address] [place], [place] [id number] PCP - General Nurse Practitioner 10/08/23 12/06/23 Wilmer Taylor MD [address] [facility] [address] [place] [address] Referring Physician Obstetrics and Gynecology 05/09/12 Jeffrey Koch MD [address] [place] [address] Consulting Physician Rheumatology 02/03/21 Luz Lewis MD [address] [place] [address] Referring Physician Surgery 12/14/21 Raleigh Jay MD PhD [address] [place] [address] Radiation Oncologist Radiation Oncology 12/12/22 Ranjan Cazares MD [address] [facility] [address] [place] [address] Surgeon Thoracic Surgery 12/12/22 documented as of this encounter
--- OUTSIDE RECORDS SUMMARY | 2024-05-03 02:48 | XMS_ITS | Clinical Summary ---
Author Organization [facility] Address [address] [place] [address] Care Team Providers Care Trim Die Maker Name Role Phone Wilmer Taylor MD Unavailable [phone] Jeffrey Koch MD Unavailable [phone] Luz Lewis MD Unavailable [phone] Raleigh Jay MD PhD Unavailable [phone] Ranjan Cazares MD Unavailable [phone] Terry Bender DO Primary Care Provider [phone] Allergies Active Allergy Reactions Criticality Noted Date Comments Amoxicillin Diarrhea Low 09/01/2021 Levofloxacin Swelling,Muscle pain Medium 07/09/2023 Tendon pain, lower leg swelling Ibuprofen Other (See comments) Low 09/12/2021 Patient takes Methotrexate and advised not to take. Omeprazole Rash Medium Medications aspirin 81 mg enteric coated tabletIndicati ons:prevention of thrombosis Take 1 tablet (81 mg total) by mouth daily after lunch Active calcium carbonate-chaka min D3 1,500 mg (600mg elemental) -800 unit per tabletIndicati ons:hypocalcem ia Take 2 tablets by mouth daily after lunch Active omega 3-acs-giq-fish oil 100-160-1,000 mg capsuleIndicat ions:hypertrig lyceridemia Take 1 capsule by mouth daily after dinner Active ascorbic acid (VITAMIN C) 500 mg tablet,chewabl eIndications:V itamin C Deficiency Take 1 tablet/chew tab (500 mg total) by mouth daily after dinner Supplement Active acetaminophen (TYLENOL) 500 mg tablet Take 2 tablets (1,000 mg total) by mouth every 6 (six) hours as needed for pain 60 tablet 2 9 Active famotidine (PEPCID) 20 mg tabletIndicati ons:gastroesop hageal reflux disease Take 1 tablet (20 mg total) by mouth every morning 1 Active polyethylene glycol (MIRALAX) 17 gram packetIndicati ons:constipati on Take 1 packet (17 g total) by mouth daily 2 Active amLODIPine (NORVASC) 10 mg tabletIndicati ons:hypertensi on Take 1 tablet (10 mg total) by mouth daily after lunch Monitor BP at home and f/u with primary care doctor for medication management. 2 Active Additional Information Patient taking differently:10 mg oral Daily after lunch, Monitor BP at home and f/u with primary care doctor for medication management.,Indications: hypertension, take 1/2 tab daily, Reported on 12/07/2022 alendronate (FOSAMAX) 70 mg tablet Take 1 tablet (70 mg total) by mouth every 7 days Take in the morning with a full glass of water, on an empty stomach, and do not take anything else by mouth or lie down for the next 30 min. Active losartan (COZAAR) 50 mg tablet Take 1 tablet (50 mg total) by mouth daily 3 Active folic acid (FOLVITE) 1 mg tabletIndicati ons:Folate Deficiency Take 1 tablet (1 mg total) by mouth daily after lunch 90 tablet 3 4 Active Anoro Ellipta 62.5-25 mcg/actuation blister with device 3 Active methotrexate 2.5 mg tabletIndicati ons:Rheumatoid Arthritis Take 5 tablets (12.5 mg total) by mouth every 7 days 60 tablet 1 4 Active budesonide-for moteroL (SYMBICORT) 160-4.5 mcg/actuation inhalerIndicat ions:Bronchosp asm Prevention with COPD Inhale 2 puffs 2 (two) times a day 04/17/20 Discontin ued(Alter carlin therapy) methotrexate 2.5 mg tablet TAKE 5 TABLETS BY MOUTH ONCE WEEKLY ON WEDNESDAYS 60 tablet 1 4 04/17/20 Discontin ued(Reord er) Active Problems Patient Care Coordination No te Formatting of this note migh t be different from the original. Referring provider: Dr. Terry Bender Ms. Darrion Guillory is a 71-year-old with a lung [...] PRN. Assessment & Plan (05/21/2023 12:22 PM LOCK TECHNICIAN): Pain overlying right lateral chest wall. TTP [...] (11/21/2021): Added automatically from request for surgery [id number] Bronchogenic lung cancer, right 09/12/2021 COPD (chronic obstructive pulmonary disease) Assessment & Plan (09/12/2021 4:10 PM CDT): - cont inhalers - wean O2 as tolerated History of lobectomy of lung 09/01/2021 Overview (09/01/2021): Added automatically from request for surgery [id number] intermediate current use 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 drug 2021 Assessment & Plan (04/17/2024 9:13 AM LOCK TECHNICIAN): Hepatitis negative: 02/2021 Assessment & Plan (10/08/2023 9:05 AM CDT): Hepatitis negative: 02/2021 Assessment & Plan (07/09/2023 9:21 AM CDT): Hepatitis negative: 02/2021 Assessment & Plan (05/21/2023 10:12 AM LOCK TECHNICIAN): Hepatitis negative: 02/2021 Assessment & Plan (02/12/2023 11:59 AM CDT): Hepatitis negative: 02/2021 Assessment & Plan (10/09/2022 1:07 PM CDT): Hepatitis negative: 02/2021 Assessment & Plan (05/15/2022 10:43 AM LOCK TECHNICIAN): Hepatitis negative: 02/2021 Assessment & Plan (01/16/2022 10:56 AM CDT): Hepatitis negative: 02/2021 Assessment & Plan (10/17/2021 12:11 PM CDT): Hepatitis negative: 02/2021 Assessment & Plan (06/20/2021 10:12 AM LOCK TECHNICIAN): Hepatitis negative: 02/2021 Rheumatoid arthritis involvi ng both hands with positive rheumatoid factor (CMS/HCC) 02/28/2021 Overview (03/01/2021): Labs (02/28/2021): Cr 0.98, WBC 11.4, ESR 37, CRP 3.8 Hepatitis negative: 02/2021 Assessment & Plan (04/17/2024 9:44 AM LOCK TECHNICIAN): Cdai in remission. Seropositive RA (+RF, CCP) [...] needed. Assessment & Plan (05/21/2023 12:18 PM LOCK TECHNICIAN): Low cdai. Seropositive RA (+RF, CCP) that [...] needed. Assessment & Plan (05/15/2022 10:55 AM LOCK TECHNICIAN): Low cdai. Seropositive RA (+RF, CCP) that [...] needed. Assessment & Plan (06/20/2021 10:11 AM LOCK TECHNICIAN): Seropositive RA (+RF, CCP) that remains well controlled with MTX 12.5mg weekly. Main complaints are pain involving the R 4th PIP joints and cervical spine which are degenerative however is responding well to Voltaren gel otc. Will continue MTX 12.5mg weekly and folic acid 1mg daily.Routine labs today. Follow up in 3 months. Sooner if needed. Assessment & Plan (03/14/2021 10:50 AM LOCK TECHNICIAN): Seropositive RA (+RF, CCP) that remains well [...] Koch. Assessment & Plan (02/28/2021 9:54 AM LOCK TECHNICIAN): 70-year-old female with PMHx of HTN, COPD, GERD, and vulvar cancer s/p resection here to establish care for previous diagnosis of seropositive rheumatoid arthritis (dx 2014) which remains well controlled with MTX 12.5mg [...] 02/28/2021 Assessment & Plan (04/17/2024 9:13 AM LOCK TECHNICIAN): Pain worse with activity and improved with [...] PM&R. Assessment & Plan (05/21/2023 12:11 PM LOCK TECHNICIAN): Pain worse with activity and improved with [...] exercises. Assessment & Plan (05/15/2022 10:43 AM LOCK TECHNICIAN): Pain worse with activity and improved with [...] exercises. Assessment & Plan (06/20/2021 10:11 AM LOCK TECHNICIAN): Pain worse with activity and improved with rest. Denies radiating pain. 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 Patient defers PT and worried about NSAIDs with her current medication regimen. Taking tylenol otc prn with some relief. Using Voltaren gel otc prn with good relief. Continue home exercises. Assessment & Plan (03/14/2021 10:52 AM LOCK TECHNICIAN): Pain worse with activity and improved with [...] pain. Assessment & Plan (02/28/2021 9:57 AM LOCK TECHNICIAN): Pain worse with activity and improved with [...] PPX - PT to eval and treat Encounters Date Type Department Care Team Description 04/24/2024 1:00 PM LOCK TECHNICIAN Office Visit [facility] Rad[facility] On[facility] [address] [place] [id number] Raleigh Jay MD PhD Malignant neoplasm of lower lobe, right bronchus or lung (HCC) (Primary Dx); Malignant neoplasm of upper lobe, left bronchus or lung (HCC); Malignant neoplasm of upper lobe, right bronchus or lung (HCC) 04/17/2024 9:15 AM LOCK TECHNICIAN Office Visit [facility] [address] [place] [phone] Martina Elizabeth PA 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) (Primary Dx); Neck pain; intermediate current use 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 drug 04/11/2024 2:03 PM LOCK TECHNICIAN - 04/11/2024 11:59 PM LOCK TECHNICIAN Hospital Encounter [facility] [address] [place] [address] Malignant neoplasm of upper lobe, left bronchus or lung (HCC); Malignant neoplasm of upper lobe, right bronchus or lung (HCC); Malignant neoplasm of lower lobe, right bronchus or lung (HCC) Discharge Disposition: Discharge to home or self care 04/10/2024 Telephone [facility] [address] [place] [address] Nalepa, July D. 04/10/2024 Telephone [facility] [address] [place] [address] Nalepa, July D. 04/08/2024 Telephone [facility] Phys[facility] On[facility] [address] [facility] [address] [place] [phone] Christine Traore, CLT 03/19/2024 Telephone [facility] [address] [place] [address] Radha Riley, FRANCHISE BROKER from Last 3 Months Immunizations Name Administration Dates Next Due Influenza, Quadrivalent, Kaylen l Culture-based MDCK, Preservative Free, Antibiotic Free, Intramuscular 02/01/2020 Influenza, Quadrivalent, Spl it, Intramuscular 02/12/2019 Influenza, Trivalent, High D ose, Split, Preservative Free, Intramuscular 01/31/2018,01/28/2017,02/18/2014 Influenza, Unspecified 03/03/2013 Moderna SARS-CoV-2 Monovalen t Vaccination (12+ YRS) 03/19/2021,07/13/2020,06/22/2020 Pneumococcal Polysaccharide PPV23 05/07/2017 ZOSTER LIVE 01/16/2018,11/08/2017,06/23/2009 Surgical History Surgery Date Site/Laterality Comments MD UNLISTED PROCEDURE BREAST 04/23/1977 - 04/22/1978 Right Cyst removed from R breast RHINOPLASTY 04/23/1989 - 04/22/1990 Deviated septum OVARY SURGERY 04/23/1994 - 04/22/1995 Cyst x2 removed from overies VULVA SURGERY 03/28/2012 HAWA III excision VULVA SURGERY 03/04/2013 HAWA III excision VULVA SURGERY 11/10/2018 HAWA III excision VULVA SURGERY 04/08/2019 HAWA III excision BREAST SURGERY Right LUNG LOBECTOMY Right COLONOSCOPY Medical History Medical History Date Comments Personal history of other di seases of the circulatory system History of hypertension - (A dded by ANDREY Conv) Hypertension Arthritis COPD (chronic obstructive pu lmonary disease) (HCC) Lung cancer (HCC) Vulva cancer (CMS/HCC) (HCC) Osteoporosis Family History Medical History Relation Name Comments Breast cancer Other 1 Family history of malignant neoplasm of breast - Relation: Aunt (Added by TW Conv) Colon cancer Other 2 Family history of colon cancer - Relation: Uncle (Added by TW Conv) Relation Name Status Comments Other 1 Other 2 Social History Tobacco Use Types Packs/Day Years [...] on file Legal Sex Female 10:10 AM LOCK TECHNICIAN Gender Identity Not on file Sexual Orientation Not on file Obstetrics History Last Filed Vital Signs Vital Sign Reading Time Taken Comments Blood Pressure 126/69 04/24/2024 12:56 PM LOCK TECHNICIAN Pulse 97 04/24/2024 12:56 PM LOCK TECHNICIAN Temperature 36.7 ??C (98 ??F) 04/24/2024 12:56 PM LOCK TECHNICIAN Respiratory Rate 22 04/24/2024 12:56 PM LOCK TECHNICIAN Oxygen Saturation 98% 04/17/2024 9:02 AM LOCK TECHNICIAN Inhaled Oxygen Concentration - - Weight 58.2 kg (128 lb 6.4 oz) 04/24/2024 12:56 PM LOCK TECHNICIAN Height 162.6 cm (5' 4 ) 04/17/2024 9:02 AM LOCK TECHNICIAN Body Mass Index 22.04 04/17/2024 9:02 AM LOCK TECHNICIAN Plan of Treatment Health Maintenance Due Date Last Done Comments Colon Cancer Screening-Colonoscopy 1950 Depression Screening 1950 Osteoporosis Screening-Bone Density Scan 1950 DTaP/Tdap/Td Vaccine (1 - Tdap) 1959 Hepatitis B Screening 1966 Well Visit 65+ 2013 Zoster Vaccine (1 of 2) 03/13/2018 01/17/20 18, 11/08/2017, 06/23/2009 Pneumococcal vaccine 65+ (2 of 2 - PCV) 05/07/2018 05/07/2017 Fall Risk Assessment 12/13/2023 12/12/2022, 11/25/19 23 Covid-19 Vaccine (2023-2 5 season) 2023 03/19/2021, 03/19/2021, 07/13/2020, Additional history exists Influenza Vaccine (#1) 2023 , 01/26/2021, 02/01/2020, Additional history exists Hepatitis C Screening Completed 02/28/2021 Procedures Procedure Name Priority Date/Time Associated Diagnosis Comments CRP (ACUTE PHASE) Routine 04/17/2024 9:4 1 AM LOCK TECHNICIAN 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) intermediate current use 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 drug ERYTHROCYTE SEDIMENTATION RATE Routine 04/17/2024 9:41 AM LOCK TECHNICIAN 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) intermediate current use 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 drug CBC WITH AUTO DIFFERENTIAL Routine 04/17/2024 9:41 AM LOCK TECHNICIAN 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) exterminator helper termite current use 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 drug COMPREHENSIVE METABOLIC PANEL Routine 04/17/2024 9:41 AM LOCK TECHNICIAN 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) intermediate current use 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 drug CT CHEST W CONTRAST Schedule Routine, Read Routine (OP Routine) 04/11/2024 2:52 PM LOCK TECHNICIAN Malignant neoplasm of upper lobe, left bronchus or lung (HCC) Malignant neoplasm of upper lobe, right bronchus or lung (HCC) Malignant neoplasm of lower lobe, right bronchus or lung (HCC) HEPATITIS PANEL, ACUTE Routine 02/28/2021 10:09 AM LOCK TECHNICIAN 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) Fatigue, unspecified type intermediate current use 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 drug from Last 3 Months or Most Recently Relevant to Health Maintenance Results * (ABNORMAL) CBC with auto differential (04/17/2024 9:41 AM LOCK TECHNICIAN) Pathologist [facility] WBC 8.6 3.8 - 10.8 Thousand/u L [facility] RBC, POC 3.69(L) 3.80 - 5.10 Million/uL [facility] Hgb 12.2 11.7 - 15.5 g/dL [facility] Hct 36.9 35.0 - 45.0 % [facility] MCV 100.0 80.0 - 100.0 fL [facility] MCH 33.1(H) 27.0 - 33.0 pg [facility] MCHC 33.1 32.0 - 36.0 g/dL [facility] Comment: For adults, a slight decrease in the calculated MCHC value (in the range of 30 to 32 g/dL) is most likely not clinically significant; however, it should be interpreted with caution in correlation with other red cell parameters and the patient's clinical condition. Rdw 13.6 11.0 - 15.0 % [facility] Platelets 268 140 - 400 Thousand/u L [facility] MPV 10.0 7.5 - 12.5 fL [facility] Neutrophils, abs 6,407 1,500 - 7,800 cells/uL [facility] Lymphocytes, abs 989 850 - 3,900 cells/uL [facility] Monocyte abs 929 200 - 950 cells/uL [facility] Eosinophils, abs 172 15 - 500 cells/uL [facility] Basophils, abs 103 0 - 200 cells/uL [facility] Neutrophils 74.5 % [facility] Lymphocyte pct 11.5 % [facility] Monocytes 10.8 % [facility] Eosinophils 2.0 % [facility] Basophils 1.2 % [facility] Blood 04/17/2024 9:41 AM LOCK TECHNICIAN 04/17/2024 9:41 AM LOCK TECHNICIAN Martina JONES LAB BLOOD ORDERABLES Final Result Performing Organization Address [facility] Co de Phone Number [facility] [address] [place] [address] * (ABNORMAL) Erythrocyte sedimentation rate (04/17/2024 9:41 AM LOCK TECHNICIAN) Pathologist [facility] Erythrocyte sedimentation rate 34(H) < OR = 30 mm/h [facility] Blood 04/17/2024 9:41 AM LOCK TECHNICIAN 04/17/2024 9:41 AM LOCK TECHNICIAN Martina JONES LAB BLOOD ORDERABLES Final Result Performing Organization Address [facility] de Phone Number [facility] [address] [place] [address] * (ABNORMAL) CRP (acute phase) (04/17/2024 9:41 AM LOCK TECHNICIAN) C-RP 12.2(H) <8.0 mg/L [facility] Blood 04/17/2024 9:41 AM LOCK TECHNICIAN 04/17/2024 9:41 AM LOCK TECHNICIAN Martina JONES LAB BLOOD ORDERABLES Final Result Performing Organization Address [facility] de Phone Number [facility] [address] [place] [address] * (ABNORMAL) Comprehensive metabolic panel (04/17/2024 9:41 AM LOCK TECHNICIAN) Glucose 102(H) 65 - 99 mg/dL [facility] Comment: ? Fasting reference interval For someone without known diabetes, a glucose value between 100 and 125 mg/dL is consistent with prediabetes and should be confirmed with a follow-up test. BUN 24 7 - 25 mg/dL [facility] Creatinine 1.04(H) 0.60 - 1.00 mg/dL [facility] eGFR 56(L) > OR = 60 mL/min/1.7 3m2 [facility] BUN/creat ratio 23(H) 6 - 22 (calc) [facility] Sodium 140 135 - 146 mmol/L [facility] Potassium, pl 4.2 3.5 - 5.3 mmol/L [facility] Chloride 106 98 - 110 mmol/L [facility] CO2 25 20 - 32 mmol/L [facility] Calcium 8.8 8.6 - 10.4 mg/dL [facility] Protein, sr 6.6 6.1 - 8.1 g/dL [facility] Albumin 3.9 3.6 - 5.1 g/dL [facility] GLOBULIN 2.7 1.9 - 3.7 g/dL (calc) [facility] Alb/glob ratio 1.4 1.0 - 2.5 (calc) [facility] Bilirubin, total 0.5 0.2 - 1.2 mg/dL [facility] Alk phos 55 37 - 153 U/L [facility] AST 14 10 - 35 U/L [facility] ALT (SGPT) 10 6 - 29 U/L [facility] Blood 04/17/2024 9:41 AM LOCK TECHNICIAN 04/17/2024 9:41 AM LOCK TECHNICIAN us Martina JONES LAB BLOOD ORDERABLES Final Result [facility] [address] [place] [address] * CT Chest W Contrast (04/11/2024 2:52 PM LOCK TECHNICIAN) Anatomical Region Laterality Modality Body N/A Computed Tomogra phy 04/22/2024 11:4 9 AM LOCK TECHNICIAN Narrative 04/22/2024 12:04 PM LOCK TECHNICIAN EXAM DESCRIPTION: CT CHEST W CONTRAST REASON [...] PM T: ??04/22/2024 12:04 PM Report ID: [id number] Reading Location: [id number] Procedure Note Dakota Villar MD - 04/22/2024 [...] Villar M.D. RB: MIGUEL ÁNGEL Report ID: [id number] Reading Location: [id number] us Raleigh Jay MD PhD IMG CT PROCEDURES Lupe l Result * Hepatitis panel, acute (02/28/2021 10:09 AM LOCK TECHNICIAN) Hep A IgM NON-REACTI VE NON-REACT MARIANNA [facility] Comment: For additional information, please refer to [email or web address]/[email or web address] (This link is being provided for informational/ educational purposes only.) HepBsAg NON-REACTI VE NON-REACT MARIANNA [facility] Hep B core IgM NON-REACTI VE NON-REACT MARIANNA [facility] Hep C Ab NON-REACTI VE NON-REACT MARIANNA [facility] SIGNAL TO CUT-OFF 0.04 <1.00 [facility] Comment: HCV antibody was non-reactive. There is no laboratory evidence of HCV infection. In most cases, no further action is required. However, if recent HCV exposure is suspected, a test for HCV RNA (test code 69046) is suggested. For additional information please refer to [email or web address] [email or web address]/DWQ72k1 (This link is being provided for informational/ educational purposes only.) Blood specimen (specimen) 02/28/2021 10:09 AM LOCK TECHNICIAN 02/28/2021 10:15 AM LOCK TECHNICIAN Martina JONES LAB MICROBIOLOGY - GE NERAL ORDERABLES Final Result [facility] [address] [place] [address] from Last 3 Months or Most Recently Relevant to Health Maintenance Insurance [facility] HEALTHCARE HEALTHCARE HEALTHCARE Advance Directives For more information, please contact: [phone] * Full Code (Latest Code Status on File) Date Activated Date Inactivated Comments 09/12/2021 4:12 PM 09/14/2021 4:07 PM Care Teams Trim Die Maker Relationship Specialty Start Date End Date Terry Bender DO [address] [place], [place] [id number] PCP - General Internal Medicine 12/07/23 Wilmer Taylor MD [address] [facility] [address] [place] [address] Referring Physician Obstetrics and Gynecology 05/09/12 Jeffrey Koch MD [address] [place] [address] Consulting Physician Rheumatology 02/03/21 Luz Lewis MD [address] [place] [address] Referring Physician Surgery 12/14/21 Raleigh Jay MD PhD [address] [place] [address] Radiation Oncologist Radiation Oncology 12/12/22 Ranjan Cazares MD [address] [facility] [place] [id number] [place] [address] Surgeon Thoracic Surgery 12/12/22
--- OUTSIDE RECORDS SUMMARY | 2024-05-03 02:48 | XMS_ITS | Encounter Summary ---
Author Organization [facility] logy Address [address] [place] [address] Phone Care Team Providers Care Tax Manager Name Role Phone Wilmer Taylor MD Unavailable [phone] Jeffrey Koch MD Unavailable [phone] Luz Lewis MD Unavailable [phone] [facility] MD PhD Unavailable + [phone] Ranjan Cazares MD Unavailable [phone] Gabriele Adams NP Primary Care Provider + [phone] Reason for Visit * Consultation (Routine) - Authorized Specialty Diagnoses / Procedures Referred By Contac t Referred To Contact Rheumatology Diagnoses Rheumatoid arthritis with rheumatoid factor of multiple sites without organ or systems involvement (HCC) Jay Argueta MD Phone: tel: fax: Jeffrey Koch MD [address] [place] [address] Phone: tel: fax: Referral ID Status Reason Start Date Expiration Date Visits Requested Visits Authorized [id number] Authorized Specialty Services Required 05/17/2023 05/15/2024 12 12 Encounter Details Date Type Department Care Team (Late st Contact Info) Description 10/08/2023 9:00 AM CDT Office Visit [facility] [address] [place] [address] Martina Elizabeth PA [address] [place] [address] 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) (Primary Dx); Neck pain; detention current use 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 drug Social History Tobacco Use Types Packs/Day Years [...] on file 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 Gender Identity Not on file Sexual Orientation Not on file documented as of this encounter Last Filed Vital Signs Vital Sign Reading Time Taken Comments Blood Pressure 120/78 10/08/2023 8:56 AM CDT Pulse 82 10/08/2023 8:56 AM CDT Temperature - - Respiratory Rate - - Oxygen Saturation 93% 10/08/2023 8:56 AM CDT Inhaled Oxygen Concentration - - Weight 62.7 kg (138 lb 3.2 oz) 10/08/2023 8:56 A M CDT Height 162.6 cm (5' 4 ) 10/08/2023 8:56 AM CDT Body Mass Index 23.72 10/08/2023 8:56 AM CDT documented in this encounter Ordered Prescriptions Prescription Sig Dispense Quantity Refills Last Filled Start Date End Date folic acid (FOLVITE) 1 mg tabletIndications:F olate Deficiency Take 1 tablet (1 mg total) by mouth daily after lunch 90 tablet 3 10/08/2023 documented in this encounter Progress Notes * Martina Elizabeth PA - 10/08/2023 9:00 AM CDT Images from the original note were not included. Subjective/Objective Patient ID: Loida Guillory is a 73 y.o. female. Chief Complaint RA HPI Returns for routine follow up and is accompanied by her daughter today. Has been doing well since last visit and joints remain stable. Had another round of radiation for lung cancer. Denies any changes to her medications. Denies fevers, infections, rashes, mouth sores, cough, dyspnea, n/v. Joint pain today is . AM stiffness = few minutes Review of Systems Constitutional: Positive for fatigue. Negative for chills and fever. HENT: Negative for congestion and mouth sores. Respiratory: Negative for cough and shortness of breath. Cardiovascular: Negative for chest pain. Gastrointestinal: Negative for abdominal pain, diarrhea, nausea and vomiting. Musculoskeletal: Positive for arthralgias. Negative for myalgias. Skin: Negative for rash. Vitals: Vitals BP 120/78 Pulse 82 Ht 162.6 cm (5' 4 ) Wt 62.7 kg (138 lb 3.2 oz) SpO2 93% BMI 23.72 kg/m?? Body mass index is 23.72 kg/m??. Bold X is a current medication. Medication Taking/taken D/C or avoidance reason Hydroxychloroquine Pt worried about s/e Methotrexate -started 2014 X Leflunomide Azathioprine Sulfasalazine CellCept Humira Enbrel Simponi Cimzia Simponi aria Remicade Cosentyx Taltz Orencia Avoid - COPD Stelara Tremfya Xeljanz Rinvoq Actemra Kevzara Olumiant Kineret Benlysta Rituxan Otezla Tylenol X NSAIDs X Voltaren gel otc Prednisone Physical Exam Constitutional: oriented to person, place, and time. appears well-developed and well-nourished. HENT: Head: Normocephalic. Eyes: Conjunctivae are normal. Pupils are equal and round. Cardiovascular: Normal rate, regular rhythm and normal heart sounds. No murmur heard. Pulmonary/Chest: Effort normal. Musculoskeletal: See cdai. H/B nodes bilaterally. Neurological: alert and oriented to person, place, and time. Skin: Skin is warm and dry. No rash noted. Psychiatric: normal mood and affect. speech is normal and behavior is normal. Cognition and memory are normal. Patient Global: 20 mm Provider Global: 20 mm CDAI: 5 In remission: 0-3 Low: 4-10 Moderate: 11-22 High: 23 or > Labs Lab Results Component Value Date WBC 9.7 05/21/2023 HGB 12.5 05/21/2023 HCT 36.7 05/21/2023 MCV 96.8 05/21/2023 Lab Results Component Value Date GLUCOSE 113 (H) 05/21/2023 CALCIUM 9.1 05/21/2023 SODIUM 138 05/21/2023 POTASSIUM 4.0 05/21/2023 CO2 25 05/21/2023 CHLORIDE 102 05/21/2023 BUNSER 19 05/21/2023 CREATININE 1.02 (H) 05/21/2023 Lab Results Component Value Date ALT 17 05/21/2023 AST 25 05/21/2023 ALKPHOS 65 05/21/2023 BILITOT 0.4 05/21/2023 Lab Results Component Value Date SEDRATE 38 (H) 05/21/2023 Lab Results Component Value Date CRP 26.5 (H) 05/21/2023 Assessment/Plan Diagnoses and all orders for this visit: 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) ([facility]) (Primary) Assessment & Plan: Low cdai. Seropositive RA (+RF, CCP) that [...] up in 3-4 months. Sooner if needed. Orders: - Comprehensive metabolic panel; Future - CBC with auto differential; Future - Erythrocyte sedimentation rate; Future - CRP (acute phase); Future Neck pain Assessment & Plan: Pain worse with activity and improved with [...] she defers PT or injections per PM&R. 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 Assessment & Plan: Hepatitis negative: 02/2021 Orders: - Comprehensive metabolic panel; Future - CBC with auto differential; Future - Erythrocyte sedimentation rate; Future - CRP (acute phase); Future Other orders - folic acid (FOLVITE) 1 mg tablet; Take 1 tablet (1 mg total) by mouth daily after lunch Martina Elizabeth PA-C Cosigned by Jeffrey Koch MD at 10/09/2023 4:29 PM CDT documented in this encounter Miscellaneous Notes * Assessment & Plan Note - Martina Elizabeth PA - 10/08/2023 10:30 AM CDTAssociated Problem(s): Neck pain Pain worse with activity and improved with [...] she defers PT or injections per PM&R. * Assessment & Plan Note - Martina Elizabeth PA - 10/08/2023 10:30 AM CDTAssociated Problem(s): 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) Low cdai. Seropositive RA (+RF, CCP) that [...] up in 3-4 months. Sooner if needed. 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 ERYTHROCYTE SEDIMENTATION RATE Routine 10/08/2023 9:29 AM CDT 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) 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 CRP (ACUTE PHASE) Routine 10/08/2023 9:2 9 AM CDT 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) 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 COMPREHENSIVE METABOLIC PANEL Routine 10/08/2023 9:29 AM CDT 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) detention current use 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 drug documented in this encounter Results * (ABNORMAL) CRP (acute phase) (10/08/2023 9:29 AM CDT) Pathologist [facility] C-RP 17.2(H) <8.0 mg/L [facility] Blood 10/08/2023 9:29 AM CDT 10/08/2023 9:30 AM CDT Martina JONES LAB BLOOD ORDERABLES Final Result Performing Organization Address City/[facility] Co de Phone Number [facility] [address] [place] [address] * Erythrocyte sedimentation rate (10/08/2023 9:29 AM CDT) [facility] Erythrocyte sedimentation rate 22 < OR = 30 mm/h [facility] Blood 10/08/2023 9:29 AM CDT 10/08/2023 9:30 AM CDT Martina JONES LAB BLOOD ORDERABLES Final Result Performing Organization Address [facility] de Phone Number [facility] [address] [place] [address] * (ABNORMAL) CBC with auto differential (10/08/2023 9:29 AM CDT) [facility] WBC 8.5 3.8 - 10.8 Thousand/u L [facility] RBC, POC 3.75(L) 3.80 - 5.10 Million/uL [facility] Hgb 12.4 11.7 - 15.5 g/dL [facility] Hct 37.3 35.0 - 45.0 % [facility] MCV 99.5 80.0 - 100.0 fL [facility] MCH 33.1(H) 27.0 - 33.0 pg [facility] MCHC 33.2 32.0 - 36.0 g/dL [facility] Rdw 13.1 11.0 - 15.0 % [facility] Platelets 266 140 - 400 Thousand/u L [facility] MPV 10.1 7.5 - 12.5 fL [facility] Neutrophils, abs 6,324 1,500 - 7,800 cells/uL [facility] Lymphocytes, abs 1,029 850 - 3,900 cells/uL [facility] Monocyte abs 876 200 - 950 cells/uL [facility] Eosinophils, abs 196 15 - 500 cells/uL [facility] Basophils, abs 77 0 - 200 cells/uL [facility] Neutrophils 74.4 % [facility] Lymphocyte pct 12.1 % [facility] Monocytes 10.3 % [facility] Eosinophils 2.3 % [facility] Basophils 0.9 % [facility] Blood 10/08/2023 9:29 AM CDT 10/08/2023 9:30 AM CDT Martina JONES LAB BLOOD ORDERABLES Final Result [facility] [address] [place] [address] * (ABNORMAL) Comprehensive metabolic panel (10/08/2023 9:29 AM CDT) [facility] Glucose 104(H) 65 - 99 mg/dL [facility] Comment: ? Fasting reference interval For someone without known diabetes, a glucose value between 100 and 125 mg/dL is consistent with prediabetes and should be confirmed with a follow-up test. BUN 25 7 - 25 mg/dL [facility] Creatinine 1.09(H) 0.60 - 1.00 mg/dL [facility] eGFR 53(L) > OR = 60 mL/min/1.7 3m2 [facility] BUN/creat ratio 23(H) 6 - 22 (calc) [facility] Sodium 140 135 - 146 mmol/L [facility] Potassium, pl 3.9 3.5 - 5.3 mmol/L [facility] Chloride 107 98 - 110 mmol/L [facility] CO2 25 20 - 32 mmol/L [facility] Calcium 9.2 8.6 - 10.4 mg/dL [facility] Protein, sr 6.2 6.1 - 8.1 g/dL [facility] Albumin 3.7 3.6 - 5.1 g/dL [facility] GLOBULIN 2.5 1.9 - 3.7 g/dL (calc) [facility] Alb/glob ratio 1.5 1.0 - 2.5 (calc) [facility] Bilirubin, total 0.4 0.2 - 1.2 mg/dL [facility] Alk phos 58 37 - 153 U/L [facility] AST 14 10 - 35 U/L [facility] ALT (SGPT) 9 6 - 29 U/L [facility] Blood 10/08/2023 9:29 AM CDT 10/08/2023 9:30 AM CDT Martina JONES LAB BLOOD ORDERABLES Final Result [facility] [address] [place] [address] documented in this encounter Visit Diagnoses Diagnosis 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)- Primary Neck pain Cervicalgia detention current use 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 drug documented in this encounter Discontinued Medications Medication Sig Discontinue Reason Start Date End Da te folic acid (FOLVITE) 1 mg tabletIndications:Folate Deficiency Take 1 tablet (1 mg total) by mouth daily after lunch Reorder 02/12/2023 10/08/2023 documented as of this encounter Care Teams Tax Manager Relationship Specialty Start Date End Date Gabriele Adams NP [address] [place] [address] PCP - General Nurse Practitioner 10/08/23 12/06/23 Wilmer Taylor MD [address] [facility] [address] [place] [address] Referring Physician Obstetrics and Gynecology 05/09/12 Jeffrey Koch MD [address] [place] [address] Consulting Physician Rheumatology 02/03/21 Luz Lewis MD [address] [place] [address] Referring Physician Surgery 12/14/21 Raleigh Jay MD PhD [address] [place] [address] Radiation Oncologist Radiation Oncology 12/12/22 Ranjan Cazares MD [id number] [place] [address] Surgeon Thoracic Surgery 12/12/22 documented as of this encounter
--- OUTSIDE RECORDS SUMMARY | 2024-05-03 02:48 | XMS_ITS | Encounter Summary ---
Author Organization [facility] Healthcare Address [address] [place] [address] Care Team Providers Care Manpower Development Specialist Manager Name Role Phone Wilmer Taylor MD Unavailable [phone] Jeffrey Koch MD Unavailable [phone] Luz Lewis MD Unavailable [phone] [facility] Unavailable [phone] Ranjan Cazares MD Unavailable [phone] Terry Bender DO Primary Care Provider [phone] Encounter Details Date Type Department Care Team (Late st Contact Info) Description 01/14/[address] [place] [phone] Itzel Stiles, BRADLY Social History Tobacco Use Types Packs/Day Years [...] file 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 After talking with Dr Jay decided to cancel this appt but will probably be calling back in 3 months to reschedule. documented in this encounter Plan of Treatment Not on file documented as of this encounter Visit Diagnoses Not on filedocumented in this encounter Care Teams Manpower Development Specialist Manager Relationship Specialty Start Date End Date Terry Bender DO [address] [place], [place] [id number] PCP - General Internal Medicine 12/07/23 Wilmer Taylor MD [address] [facility] [address] [place] [address] Referring Physician Obstetrics and Gynecology 05/09/12 Jeffrey Koch MD [address] [place] [address] Consulting Physician Rheumatology 02/03/21 Luz Lewis MD [address] [place] [address] Referring Physician Surgery 12/14/21 Raleigh Jay MD PhD [address] [place] [address] Radiation Oncologist Radiation Oncology 12/12/22 Ranjan Cazares MD [id number] [place] [address] Surgeon Thoracic Surgery 12/12/22 documented as of this encounter
--- OUTSIDE RECORDS SUMMARY | 2024-05-03 02:48 | XMS_ITS | Encounter Summary ---
Author Organization [facility] Healthcare Address [address] [place] [address] Care Team Providers Care Cnc Mill And Lathe Operator Name Role Phone Wilmre Taylor MD Unavailable [phone] Jeffrey Koch MD Unavailable [phone] Luz Lewis MD Unavailable [phone] Jay Argueta MD Primary Care Provider [phone] Raleigh Jay MD PhD Unavailable [phone] Ranjan Cazares MD Unavailable [phone] Encounter Details Date Type Department Care Team (Late st Contact Info) Description 09/05/2023 12:30 PM CDT Treatment [facility] Radiation Oncology [address] [place] [address] Clifton Olmos MD PhD [address] [facility] [address] [place] [address] Social History Tobacco Use Types Packs/Day Years [...] on file 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 Gender Identity Not on file Sexual Orientation Not on file documented as of this encounter Plan of Treatment Not on file documented as of this encounter Visit Diagnoses Not on filedocumented in this encounter Care Teams Cnc Mill And Lathe Operator Relationship Specialty Start Date End Date Jay Argueta MD [address] [place] [address] PCP - General Family Practice 11/29/22 10/07/23 Wilmer Taylor MD [facility] [address] [address] Referring Physician Obstetrics and Gynecology 05/09/12 Jeffrey Koch MD [address] [place] [address] Consulting Physician Rheumatology 02/03/21 Luz Lewis MD [address] [place] [address] Referring Physician Surgery 12/14/21 Raleigh Jay MD PhD [address] [place] [address] Radiation Oncologist Radiation Oncology 12/12/22 Ranjan Cazares MD [address] [facility] [id number] [place] [address] Surgeon Thoracic Surgery 12/12/22 documented as of this encounter
--- OUTSIDE RECORDS SUMMARY | 2024-05-03 02:48 | XMS_ITS | Encounter Summary ---
Author Organization [facility] Healthcare Address [address] [place] [address] Care Team Providers Care Coin Box Collector Name Role Phone Wilmer Taylor MD Unavailable [phone] Jeffrey Koch MD Unavailable [phone] Luz Lewis MD Unavailable [phone] [facility] MD PhD Unavailable [phone] Ranjan Cazares MD Unavailable [phone] Terry Bender DO Primary Care Provider [phone] Encounter Details Date Type Department Care Team (Late st Contact Info) Description 04/10/2024 Telephone [facility] [address] [place] [address] Hasmukh July Thang Social History Tobacco Use [...] on file 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 Gender Identity Not on file Sexual Orientation Not on file documented as of this encounter Miscellaneous Notes * Telephone Encounter - Hasmukh July Thang - 04/10/2024 2:51 PM CST LVM PER'S AIDE documented in this encounter Plan of Treatment Not on file documented as of this encounter Visit Diagnoses Not on filedocumented in this encounter Care Teams Coin Box Collector Relationship Specialty Start Date End Date Terry Bender DO [address] [place] [address] PCP - General Internal Medicine 12/07/23 Wilmer Taylor MD [address] [facility] [address] [place], [place] [address] Referring Physician Obstetrics and Gynecology 05/09/12 Jeffrey Koch MD [address] [place] [address] Consulting Physician Rheumatology 02/03/21 Luz Lewis MD [address] [place] [address] Referring Physician Surgery 12/14/21 Raleigh Jay MD PhD [address] [place] [address] Radiation Oncologist Radiation Oncology 12/12/22 Ranjan Cazares MD [address] [facility] [id number] [place] [address] Surgeon Thoracic Surgery 12/12/22 documented as of this encounter
--- OUTSIDE RECORDS SUMMARY | 2024-05-03 02:48 | XMS_ITS | Encounter Summary ---
Author Organization [facility] Address [address] [place] [address] Care Team Providers Care Clockmaker Name Role Phone Wilmer Taylor MD Unavailable [phone] Jeffrey Koch MD Unavailable [phone] Luz Lewis MD Unavailable [phone] Jay Argueta MD Primary Care Provider [phone] Raleigh Jay MD PhD Unavailable + [phone] Ranjan Cazares MD Unavailable [phone] Reason for Referral * MRI/CAT/PET Scan (Routine) - Closed Specialty Diagnoses / Procedures Referred By Contac t Referred To Contact Radiology Diagnoses Malignant neoplasm of upper lobe, right bronchus or lung (HCC) Malignant neoplasm of lower lobe, right bronchus or lung (HCC) Malignant neoplasm of upper lobe, left bronchus or lung (HCC) Procedures CT chest with contrast Raleigh Jay MD PhD [address] [place] [address] Phone: tel: fax: [address] [address] Referral ID Status Reason Start Date Expiration Date Visits Re quested Visits Authorized [id number] Closed 09/06/2023 10/05/2024 1 1 Encounter Details Date Type Department Care Team (Late st Contact Info) Description 09/06/2023 OTV [facility] Radiation Oncology [address] [place] [id number] Raleigh Jay MD PhD [address] [place] [address] Malignant neoplasm of upper lobe, right bronchus or lung (HCC) (Primary Dx); Malignant neoplasm of lower lobe, right bronchus or lung (HCC); Malignant neoplasm of upper lobe, left bronchus or lung (HCC) Social History Tobacco [...] on file 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 Gender Identity Not on file Sexual Orientation Not on file documented as of this encounter Last Filed Vital Signs Vital Sign Reading Time Taken Comments Blood Pressure 134/63 09/06/2023 12:43 PM CDT Pulse 67 09/06/2023 12:43 PM CDT Temperature 36.2 ??C (97.1 ??F) 09/06/2023 1 2:43 PM CDT Respiratory Rate 20 09/06/2023 12:4 3 PM CDT Oxygen Saturation 94% 09/06/2023 12: 43 PM CDT Inhaled Oxygen Concentration - - Weight 64.3 kg (141 lb 12.8 oz) 024 12:43 PM CDT Height - - Body Mass Index 24.34 02/12/2023 10:02 AM CDT documented in this encounter Progress Notes * Raleigh Jay MD PhD - 09/06/2023 12:43 PM CDT Radiation Oncologist: Raleigh Jay MD PhD Primary Care Physician: Jay Argueta MD Medical Oncologist: No care steam table attendant to display Surgeon: Ranjan Cazares MD Date of Service: 09/06/2023 RADIATION ONCOLOGY ON TREATMENT VISIT (OTV) NOTE Diagnosis: Cancer Staging Malignant neoplasm of lower lobe, [...] by Raleigh Jay MD PhD on 12/12/2022 Encounter Diagnoses Name Primary? Malignant neoplasm of upper lobe, right bronchus or lung (HCC) Yes Malignant neoplasm of lower lobe, right bronchus or lung (HCC) Malignant neoplasm of upper lobe, left bronchus or lung (HCC) TREATMENT: Radiation Treatments Active Plans SBRT L LUNG Most recent treatment: Dose planned: 1,100 cGy (fraction 1 on 09/03/2023) Total: Dose planned: 5,500 cGy Elapsed Days: 0 SBRT L LUN Most recent treatment: Dose planned: 1,100 cGy (fraction 3 on 09/06/2023) Total: Dose planned: 4,400 cGy Elapsed Days: 3 Reference Points SBRT L [id number] Most recent treatment: Dose given: 1,100 cGy (on 09/06/2023) Total: Dose given: 4,400 cGy Elapsed Days: 3 SUBJECTIVE: Tolerating treatment well thus far. Denies changes in respiratory function. Denies cough or hemoptysis. Denies dysphagia or odynophagia. Denies pain (0/10). EXAM: BP 134/63 Pulse 67 Temp 36.2 ??C (97.1 ??F) Resp 20 Wt 64.3 kg (141 lb 12.8 oz) SpO2 94% BMI 24.34 kg/m?? Pain Score and Location 09/06/23 1243 PainSc: 0-No pain NAD. No dermatitis. Esophagitis: 0 - None Radiation dermatitis: 0 - None Fatigue: 0 - None KPS 80=Normal activity with effort. ECOG Score = 1. ASSESSMENT No side effects PLANS Continue with treatment. Completes treatment tomorrow. Will f/u in [address] chest w/ contrast at that time RAD ONC PAIN PLAN: The patient is not currently having any pain that requires changes in pain management. documented in this encounter Nursing Notes * Alisa Figueredo RN - 09/06/2023 12:43 PM CDT Pt toleratin treatments well. documented in this encounter Plan of Treatment Not on file documented as of this encounter Results * CT chest with [...] AM T: ??12/03/2023 11:22 AM Report ID: [id number] Reading Location: ??[id number] Procedure Note Christian Molina MD - 12/03/2023 [...] Christian Molina M.D. NS: NS Report ID: [id number] Reading Location: [place] [address] Raleigh Jay MD PhD IMG CT PROCEDURES Lupe l Result documented in this encounter Visit Diagnoses Diagnosis Malignant neoplasm of upper lobe, right bronchus or lung (HCC)- Primary Malignant neoplasm of lower lobe, right bronchus or lung (HCC) Malignant neoplasm of upper lobe, left bronchus or lung (HCC) Malignant neoplasm of upper lobe, right bronchus or lung (HCC) Malignant neoplasm of lower lobe, right bronchus or lung (HCC) Malignant neoplasm of upper lobe, left bronchus or lung (HCC) documented in this encounter Care Teams Clockmaker Relationship Specialty Start Date End Date Jay Argueta MD [address] [place] [address] PCP - General Family Practice 11/29/22 10/07/23 Wilmer Taylor MD [address] [facility] [address] [place] [address] Referring Physician Obstetrics and Gynecology 05/09/12 Jeffrey Koch MD [address] [place] [address] Consulting Physician Rheumatology 02/03/21 Luz Lewis MD [address] [place] [address] Referring Physician Surgery 12/14/21 Raleigh Jay MD PhD [address] [place] [address] Radiation Oncologist Radiation Oncology 12/12/22 Ranjan Cazares MD [address] [place] [address] Surgeon Thoracic Surgery 12/12/22 documented as of this encounter
--- OUTSIDE RECORDS SUMMARY | 2024-05-03 02:48 | XMS_ITS | Encounter Summary ---
Author Organization [facility] Healthcare Address [address] [place] [address] Care Team Providers Care Risk Control Representative Name Role Phone Wilmer Taylor MD Unavailable [phone] Jeffrey Koch MD Unavailable [phone] Luz Lewis MD Unavailable [phone] Jay Argueta MD Primary Care Provider [phone] Raleigh Jay MD PhD Unavailable [phone] Ranjan Cazares MD Unavailable [phone] Encounter Details Date Type Department Care Team (Late st Contact Info) Description 09/04/2023 Orders Only RAD ONC TREATMENTS Miscellaneous, Not [...] on file Legal Sex Female 10:10 AM CLOTHES MODEL Gender Identity Not on file Sexual Orientation Not on file documented as of this encounter Plan of Treatment Not on file documented as of this encounter Procedures Procedure Name Priority Date/Time Associated Diagnosis Comments RAD ONC ARIA SESSION SUMMARY 09/04/2023 12:39 PM CDT documented in this encounter Results * RAD ONC ARIA SESSION SUMMARY (09/04/2023 12:39 PM CDT) Course Name C2_LUL_ 4 ARIA Course Plan Date 08/22/2023 8:14 AM ARIA Elapsed Days 1 ARIA Treatment Start Date 09/03/2023 ARIA Treatment Site SBRT L [id number]_5500 ARIA Dose Given To Date (cGy) 2,200 ARIA Session Dosage Given (cGy) 1,100 ARIA Plan ID SBRT L LUN ARIA Fractions Treated 1 ARIA Prescribed Dose Per Fraction (cGy) 1,100 ARIA Prescribed Total Dose (cGy) 4,400 ARIA 09/04/2023 12:3 9 PM CDT us Not In File Miscellaneous RADIATION ONCOLOGY ORD ERABLES Final Result ARIA documented in this encounter Visit Diagnoses Not on filedocumented in this encounter Care Teams Risk Control Representative Relationship Specialty Start Date End Date Jay Argueta MD [address] [place] [address] PCP - General Family Practice 11/29/22 10/07/23 [place] [address] [place] [address] [address] [place] [address] Referring Physician Obstetrics and Gynecology 05/09/12 Jeffrey Koch MD [address] [place] [address] Consulting Physician Rheumatology 02/03/21 Luz Lewis MD [address] [place] [address] Referring Physician Surgery 12/14/21 Raleigh Jay MD PhD [address] [place] [address] Radiation Oncologist Radiation Oncology 12/12/22 Ranjan Cazares MD [address] [place] [address] Surgeon Thoracic Surgery 12/12/22 documented as of this encounter
--- OUTSIDE RECORDS SUMMARY | 2024-05-03 02:48 | XMS_ITS | Encounter Summary ---
Author Organization [facility] logy Address [address] [place] [phone] Phone Care Team Providers Care Block Trader Name Role Phone Wilmer Taylor MD Unavailable [phone] Jeffrey Koch MD Unavailable [phone] Luz Lewis MD Unavailable [phone] HospitalRaleigh MD PhD Unavailable [phone] Ranjan Cazares MD Unavailable [phone] Terry Bender DO Primary Care Provider [phone] Reason for Visit * Consultation (Routine) - Authorized Specialty Diagnoses / Procedures Referred By Contac t Referred To Contact Rheumatology Diagnoses Rheumatoid arthritis with rheumatoid factor of multiple sites without organ or systems involvement (HCC) Jay Argueta MD Phone: tel: fax: Jeffrey Koch MD [address] [place] [address] Phone: tel: fax: Referral ID Status Reason Start Date Expiration Date Visits Requested Visits Authorized [id number] Authorized Specialty Services Required 05/17/2023 05/15/2024 12 12 Encounter Details Date Type Department Care Team (Late st Contact Info) Description 04/17/2024 9:15 AM MEDICAL ENGINEER Office Visit [facility] [address] [place] [phone] Martina Elizabeth PA [address] [place] [address] 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) (Primary Dx); Neck pain; jail current use 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 drug Social History [...] on file Legal Sex Female 10:10 AM MEDICAL ENGINEER Gender Identity Not on file Sexual Orientation Not on file documented as of this encounter Last Filed Vital Signs Vital Sign Reading Time Taken Comments Blood Pressure 148/82 04/17/2024 9:02 AM MEDICAL ENGINEER Pulse 82 04/17/2024 9:02 AM MEDICAL ENGINEER Temperature - - Respiratory Rate - - Oxygen Saturation 98% 04/17/2024 9:02 AM MEDICAL ENGINEER Inhaled Oxygen Concentration - - Weight 59.9 kg (132 lb) 04/17/2024 9:02 AM MEDICAL ENGINEER Height 162.6 cm (5' 4 ) 04/17/2024 9:02 AM MEDICAL ENGINEER Body Mass Index 22.66 04/17/2024 9:02 AM MEDICAL ENGINEER documented in this encounter Ordered Prescriptions Prescription Sig Dispense Quantity Refills Last Filled Start Date End Date methotrexate 2.5 mg tabletIndications: Rheumatoid Arthritis Take 5 tablets (12.5 mg total) by mouth every 7 days 60 tablet 1 04/17/2024 documented in this encounter Progress Notes * Martina Elizabeth PA - 04/17/2024 9:15 AM CST Images from the original note were not included. Subjective/Objective Patient ID: Loida Guillory is a 73 y.o. female. Chief Complaint RA HPI Returns for routine follow up and is accompanied by her daughter today. Doing well overall without any flares. Needing refills. When she has neck pain she will take a couple of tylenol with good relief of pain. Being monitored for lung cancer. Had CT on 04/11 and awaiting results. If spot has grown then they may consider biopsy and possibly chemotherapy. Previously, she has done radiation. She is wanting tomake sure this will not interfere with her RA treatment. Denies fevers, infections, rashes, mouth sores, cough, [...] Skin: Negative for rash. Vitals: Vitals BP 148/82 Pulse 82 Ht 162.6 cm (5' 4 ) Wt 59.9 kg (132 lb) SpO2 98% BMI 22.66 kg/m?? Body mass index is 22.66 kg/m??. Bold X is a current medication. [...] are normal. Pupils are equal and round. Pulmonary/Chest: Effort normal. Musculoskeletal: See cdai. H/B nodes bilaterally. Neurological: alert and oriented to person, place, and time. Skin: Skin is warm and dry. No rash noted. Psychiatric: normal mood and affect. speech is normal and behavior is normal. Cognition and memory are normal. Patient Global: Provider Global: CDAI: 2 In remission: 0-3 Low: 4-10 Moderate: 11-22 High: 23 or > Labs Lab Results Component Value Date WBC 8.5 10/08/2023 HGB 12.4 10/08/2023 HCT 37.3 10/08/2023 MCV 99.5 10/08/2023 Lab Results Component Value Date GLUCOSE 104 (H) 10/08/2023 CALCIUM 9.2 10/08/2023 SODIUM 140 10/08/2023 POTASSIUM 3.9 10/08/2023 CO2 25 10/08/2023 CHLORIDE 107 10/08/2023 BUNSER 25 10/08/2023 CREATININE 1.09 (H) 10/08/2023 Lab Results Component Value Date ALT 9 10/08/2023 AST 14 10/08/2023 ALKPHOS 58 10/08/2023 BILITOT 0.4 10/08/2023 Lab Results Component Value Date SEDRATE 22 10/08/2023 Lab Results Component Value Date CRP 17.2 (H) 10/08/2023 Assessment/Plan Diagnoses and all orders for this visit: 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 factor ([facility]) ([facility]) (Primary) Assessment & Plan: Cdai in remission. Seropositive RA (+RF, CCP) [...] she defers PT or injections per PM&R. rewinder current use 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 drug Assessment & Plan: Hepatitis negative: 02/2021 Orders: - Comprehensive metabolic panel; Future - CBC with auto differential; Future - Erythrocyte sedimentation rate; Future - CRP (acute phase); Future Other orders - methotrexate 2.5 mg tablet; Take 5 tablets (12.5 mg total) by mouth every 7 days Martina Elizabeth PA-C Cosigned by Jeffrey Koch MD at 04/17/2024 9:50 AM MEDICAL ENGINEER CAL ENGINEER CAL ENGINEER documented in this encounter Miscellaneous Notes * Assessment & Plan Note - Martina Elizabeth PA - 04/17/2024 9:42 AM MEDICAL ENGINEER Associated Problem(s): 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) Cdai in remission. Seropositive RA (+RF, CCP) [...] up in 3-4 months. Sooner if needed. CAL ENGINEER CAL ENGINEER * Assessment & Plan Note - Martina Elizabeth PA - 04/17/2024 9:13 AM MEDICAL ENGINEER Associated Problem(s): rewinder current use 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 drug Hepatitis negative: 02/2021 CAL ENGINEER * Assessment & Plan Note - Martina Elizabeth PA - 04/17/2024 9:13 AM MEDICAL ENGINEER Associated Problem(s): Neck pain Pain worse with activity [...] she defers PT or injections per PM&R. CAL ENGINEER documented in this encounter Plan of Treatment Not on file documented as of this encounter Procedures Procedure Name Priority Date/Time Associated Diagnosis Comments CBC WITH AUTO DIFFERENTIAL Routine 04/17/2024 9:41 AM MEDICAL ENGINEER 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) rewinder current use 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 drug ERYTHROCYTE SEDIMENTATION RATE Routine 04/17/2024 9:41 AM MEDICAL ENGINEER 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) rewinder current use 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 drug CRP (ACUTE PHASE) Routine 04/17/2024 9:4 1 AM MEDICAL ENGINEER 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) jail current use 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 drug COMPREHENSIVE METABOLIC PANEL Routine 04/17/2024 9:41 AM MEDICAL ENGINEER 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) rewinder current use 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 drug documented in this encounter Results * (ABNORMAL) CRP (acute phase) (04/17/2024 9:41 AM MEDICAL ENGINEER) [facility] C-RP 12.2(H) <8.0 mg/L [facility] Blood 04/17/2024 9:41 AM MEDICAL ENGINEER 04/17/2024 9:41 AM MEDICAL ENGINEER Martina JONES LAB BLOOD ORDERABLES Final Result Performing Organization Address City/[facility]/ZIP Co de Phone Number QUE[facility] [address] [place] [address] * (ABNORMAL) Erythrocyte sedimentation rate (04/17/2024 9:41 AM MEDICAL ENGINEER) [facility] Erythrocyte sedimentation rate 34(H) < OR = 30 mm/h [facility] Blood 04/17/2024 9:41 AM MEDICAL ENGINEER 04/17/2024 9:41 AM MEDICAL ENGINEER Martina JONES LAB BLOOD ORDERABLES Final Result Performing Organization Address [facility] Co de Phone Number [facility]ST [facility] [address] [place] [address] * (ABNORMAL) CBC with auto differential (04/17/2024 9:41 AM MEDICAL ENGINEER) [facility] WBC 8.6 3.8 - 10.8 Thousand/u L [...] [facility] Blood 04/17/2024 9:41 AM MEDICAL ENGINEER 04/17/2024 9:41 AM MEDICAL ENGINEER Martina JONES LAB BLOOD ORDERABLES Final Result [facility] [address] [facility] [place] [address] * (ABNORMAL) Comprehensive metabolic panel (04/17/2024 9:41 AM MEDICAL ENGINEER) [facility] Glucose 102(H) 65 - 99 mg/dL [facility] [...] [facility] Blood 04/17/2024 9:41 AM MEDICAL ENGINEER 04/17/2024 9:41 AM MEDICAL ENGINEER us Martina JONES LAB BLOOD ORDERABLES Final Result [facility] [address] [place] [address] documented in this encounter Visit Diagnoses Diagnosis 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)- Primary Neck pain Cervicalgia rewinder current use 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 drug documented in this encounter Discontinued Medications Medication Sig Discontinue Reason Start Date End Da te budesonide-formoteroL (SYMBICORT) 160-4.5 mcg/actuation inhalerIndications:Bro nchospasm Prevention with COPD Inhale 2 puffs 2 (two) times a day Alternate therapy 04/17/2024 methotrexate 2.5 mg tablet TAKE 5 TABLETS BY MOUTH ONCE WEEKLY ON WEDNESDAYS Reorder 01/03/2024 04/17/2024 documented as of this encounter Historical Medications * This list may reflect changes made after this encounter. Medication Sig Dispense Quantity Refills Last Filled Start D ate End Date Anoro Ellipta 62.5-25 mcg/actuation blister with device 04/09/2023 added in this encounter Care Teams Block Trader Relationship Specialty Start Date End Date Terry Bender DO [address] [place], [place] [id number] PCP - General Internal Medicine 12/07/23 Wilmer Taylor MD [address] [facility] [address] [place], [place] [address] Referring Physician Obstetrics and Gynecology 05/09/12 Jeffrey Koch MD [address] [place] [address] Consulting Physician Rheumatology 02/03/21 Luz Lewis MD [address] [place] [address] Referring Physician Surgery 12/14/21 Raleigh Jay MD PhD [address] [place] [address] Radiation Oncologist Radiation Oncology 12/12/22 Ranjan Cazares MD [address] [facility] [address] [place] [address] Surgeon Thoracic Surgery 12/12/22 documented as of this encounter
--- OUTSIDE RECORDS SUMMARY | 2024-05-03 02:48 | XMS_ITS | Encounter Summary ---
Author Organization [facility] Healthcare Address [address] [place] [address] Care Team Providers Care Director Instructional Material Name Role Phone Wilmer Taylor MD Unavailable [phone] Jeffrey Koch MD Unavailable [phone] Luz Lewis MD Unavailable [phone] Jay Argueta MD Primary Care Provider [phone] Raleigh Jay MD PhD Unavailable [phone] Ranjan Cazares MD Unavailable [phone] Encounter Details Date Type Department Care Team (Late st Contact Info) Description 09/06/2023 Orders Only RAD ONC TREATMENTS Miscellaneous, Not [...] on file Legal Sex Female 10:10 AM DISTRIBUTION LEAD Gender Identity Not on file Sexual Orientation Not on file documented as of this encounter Plan of Treatment Not on file documented as of this encounter Procedures Procedure Name Priority Date/Time Associated Diagnosis Comments RAD ONC ARIA SESSION SUMMARY 09/06/2023 12:37 PM CDT documented in this encounter Results * RAD ONC ARIA SESSION SUMMARY (09/06/2023 12:37 PM CDT) Course Name C2_LUL_ 4 ARIA Course Plan Date 08/22/2023 8:14 AM ARIA Elapsed Days 3 ARIA Treatment Start Date 09/03/2023 ARIA Treatment Site SBRT L LUNG_5500 ARIA Dose Given To Date (cGy) 4,400 ARIA Session Dosage Given (cGy) 1,100 ARIA Plan ID SBRT L LUN ARIA Fractions Treated 3 ARIA Prescribed Dose Per Fraction (cGy) 1,100 ARIA Prescribed Total Dose (cGy) 4,400 ARIA 09/06/2023 12:3 7 PM CDT us Not In File Miscellaneous RADIATION ONCOLOGY ORD ERABLES Final Result ARIA documented in this encounter Visit Diagnoses Not on filedocumented in this encounter Care Teams Director Instructional Material Relationship Specialty Start Date End Date Jay Argueta MD [address] [place] [address] PCP - General Family Practice 11/29/22 10/07/23 [place] [address] [place] [address] [address] [place] [address] Referring Physician Obstetrics and Gynecology 05/09/12 Jeffrey Koch MD [address] [place] [address] Consulting Physician Rheumatology 02/03/21 Luz Lewis MD [address] [place] [address] Referring Physician Surgery 12/14/21 Raleigh Jay MD PhD [address] [place] [address] Radiation Oncologist Radiation Oncology 12/12/22 Ranjan Cazares MD [address] [place] [address] Surgeon Thoracic Surgery 12/12/22 documented as of this encounter
--- OUTSIDE RECORDS SUMMARY | 2024-05-03 02:48 | XMS_ITS | Encounter Summary ---
Author Organization [facility] Healthcare Address [address] [place] [address] Care Team Providers Care Quality Assurance Monitor Name Role Phone Wilmer Taylor MD Unavailable [phone] Jeffrey Koch MD Unavailable [phone] Luz Lewis MD Unavailable [phone] Jay Argueta MD Primary Care Provider [phone] Raleigh Jay MD PhD Unavailable [phone] Ranjan Cazares MD Unavailable [phone] Encounter Details Date Type Department Care Team (Late st Contact Info) Description 09/07/2023 12:30 PM CDT Treatment [facility] Radiation Oncology [address] [place] [address] Raleigh Jay MD PhD [address] [place] [address] Social History Tobacco Use Types Packs/Day Years [...] on file Legal Sex Female 10:10 AM TOLL PATROLMAN Gender Identity Not on file Sexual Orientation Not on file documented as of this encounter Plan of Treatment Not on file documented as of this encounter Visit Diagnoses Not on filedocumented in this encounter Care Teams Quality Assurance Monitor Relationship Specialty Start Date End Date Jay Argueta MD [address] [place] [address] PCP - General Family Practice 11/29/22 10/07/23 Wilmer Taylor MD [facility] [address] [address] Referring Physician Obstetrics and Gynecology 05/09/12 Jeffrey Koch MD [address] [place] [address] Consulting Physician Rheumatology 02/03/21 Luz Lewis MD [address] [place] [address] Referring Physician Surgery 12/14/21 Raleigh Jay MD PhD [address] [place] [address] Radiation Oncologist Radiation Oncology 12/12/22 Ranjan Cazares MD [address] [facility] [address] [place] [address] Surgeon Thoracic Surgery 12/12/22 documented as of this encounter
--- OUTSIDE RECORDS SUMMARY | 2024-05-03 02:48 | XMS_ITS | Encounter Summary ---
Author Organization [facility] Healthcare Address [address] [place] [address] Care Team Providers Care Radiology Resident Name Role Phone Wilmer Taylor MD Unavailable [phone] Jeffrey Koch MD Unavailable [phone] Luz Lewis MD Unavailable [phone] [facility] PhD Unavailable + [phone] Ranjan Cazares MD Unavailable [phone] Gabriele Adams NP Primary Care Provider [phone] Encounter Details Date Type Department Care Team (Late st Contact Info) Description 11/29/2023 Telephone [facility] [address] [place] [id number] Hasmukh Zuleyma Thang Social History Tobacco Use Types Packs/Day [...] on file Legal Sex Female 10:10 AM WEAVE ROOM SUPERVISOR Gender Identity Not on file Sexual Orientation Not on file documented as of this encounter Miscellaneous Notes * Telephone Encounter - Hasmukh Zuleyma Thang - 11/29/2023 2:07 PM CDT LVM ON DTRS PHONE documented in this encounter Plan of Treatment Not on file documented as of this encounter Visit Diagnoses Not on filedocumented in this encounter Care Teams Radiology Resident Relationship Specialty Start Date End Date Gabriele Adams SPRAY DRY OPERATOR [address] [place], [place] [id number] PCP - General Nurse Practitioner 10/08/23 12/06/23 Wilmer Taylor MD [address] [facility] [address] [place] [address] Referring Physician Obstetrics and Gynecology 05/09/12 Jeffrey Koch MD [address] [place] [address] Consulting Physician Rheumatology 02/03/21 Luz Lewis MD [address] [place] [address] Referring Physician Surgery 12/14/21 Raleigh Jay MD PhD [address] [place] [address] Radiation Oncologist Radiation Oncology 12/12/22 Ranjan Cazares MD [address] [place] [address] Surgeon Thoracic Surgery 12/12/22 documented as of this encounter
--- OUTSIDE RECORDS SUMMARY | 2024-05-03 02:48 | XMS_ITS | Encounter Summary ---
Author Organization [facility] Healthcare Address [address] [place] [address] Care Team Providers Care Hearing Aid Consultant Name Role Phone Wilmer Taylor MD Unavailable [phone] Jeffrey Koch MD Unavailable [phone] Luz Lewis MD Unavailable [phone] Jay Argueta MD Primary Care Provider [phone] Raleigh Jay MD PhD Unavailable + [phone] Ranjan Cazares MD Unavailable [phone] Encounter Details Date Type Department Care Team (Late st Contact Info) Description 09/07/2023 Completion of Therapy [facility] Radiation Oncology [address] [place] [id number] Raleigh Jay MD PhD 6 [place] [address] Malignant neoplasm of upper lobe, right bronchus [...] on file Legal Sex Female 10:10 AM HEM INSPECTOR Gender Identity Not on file Sexual Orientation Not on file documented as of this encounter Progress Notes * Raleigh Jay MD PhD - 09/07/2023 2:26 PM CDT Radiation Oncologist: Raleigh Jay MD PhD Primary Care Physician: Jay Argueta MD Medical Oncologist: No care valve steamer to display Surgeon: Ranjan Cazares MD Referring Provider: No ref. provider found Date of Service: 09/07/2023 RADIATION ONCOLOGY COMPLETION OF THERAPY (COT) Identifying Data: Cancer Staging Malignant neoplasm of lower lobe, [...] by Raleigh Jay MD PhD on 12/12/2022 Loida Guillory is a 73 y.o. 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 She then developed a radiographically diagnosed clinical T1b N0 M0 non-small cell lung cancer of the left upperlobe and received empiric SBRT to this lesion as detailed below. Treatment Delivered: Start Date: 09/03/2023 End Date: 09/07/2023 Radiation Treatments Active Plans SBRT L LUNG Most recent treatment: Dose planned: 1,100 cGy (fraction 1 on 09/03/2023) Total: Dose planned: 5,500 cGy Elapsed Days: 0 SBRT L LUN Most recent treatment: Dose planned: 1,100 cGy (fraction 4 on 09/07/2023) Total: Dose planned: 4,400 cGy Elapsed Days: 4 Reference Points SBRT L [id number] Most recent treatment: Dose given: 1,100 cGy (on 09/07/2023) Total: Dose given: 5,500 cGy Elapsed Days: 4 Treatment delivery and Energy: SBRT-VMAT, 6FFF Bolus: n/a Concurrent Therapy: None Pain Plan: RAD ONC PAIN PLAN: The patient is not currently having any pain that requires changes in pain management. Tolerance to Treatment: Ms. Guillory tolerated the treatment well. She did not have any changes in respiratory function during her course of treatment. Disposition: Follow up in clinic in [address] of the chest at that time. Post treatment skin care instructions given. Patient was instructed to call with any concerns prior to scheduled follow up visit. Raleigh Jay MD PhD supervised the patient???s radiation treatment as summarized. documented in this encounter Plan of Treatment Not on file documented as of this encounter Visit Diagnoses Diagnosis Malignant neoplasm of upper lobe, right bronchus or lung (HCC)- Primary Malignant neoplasm of lower lobe, right bronchus or lung (HCC) Malignant neoplasm of upper lobe, left bronchus or lung (HCC) documented in this encounter Care Teams Hearing Aid Consultant Relationship Specialty Start Date End Date Jay Argueta MD [address] [place] [address] PCP - General Family Practice 11/29/22 10/07/23 Wilmer Taylor MD [address] [facility] [address] [place] [address] Referring Physician Obstetrics and Gynecology 05/09/12 Jeffrey Koch MD [address] [place] [address] Consulting Physician Rheumatology 02/03/21 Luz Lewis MD [address] [place] [address] Referring Physician Surgery 12/14/21 Raleigh Jay MD PhD [address] [place] [address] Radiation Oncologist Radiation Oncology 12/12/22 Ranjan Cazares MD [address] [facility] [address] [place] [address] Surgeon Thoracic Surgery 12/12/22 documented as of this encounter
--- OUTSIDE RECORDS SUMMARY | 2024-05-03 02:48 | XMS_ITS | Encounter Summary ---
Author Organization [facility] Healthcare Address [address] [place] [address] Care Team Providers Care Hair Spinning Machine Operator Name Role Phone Wilmer Taylor MD Unavailable [phone] Jeffrey Koch MD Unavailable [phone] Luz Lewis MD Unavailable [phone] Raleigh Jay MD PhD Unavailable [phone] Ranjan Cazares MD Unavailable [phone] Terry Bender DO Primary Care Provider [phone] Reason for Referral * MRI/CAT/PET Scan (Routine) - Closed Specialty Diagnoses / Procedures Referred By Contac t Referred To Contact Radiology Diagnoses Malignant neoplasm of upper lobe, left bronchus or lung (HCC) Malignant neoplasm of upper lobe, right bronchus or lung (HCC) Malignant neoplasm of lower lobe, right bronchus or lung (HCC) Procedures PET/CT FDG Skull to Thigh Raleigh Jay MD PhD [address] [place] [address] Phone: tel: fax: [address] [phone] Referral ID Status Reason Start Date Expiration Date Visits Re quested Visits Authorized [id number] Closed 01/02/2024 04/01/2024 2 2 Reason for Visit * MRI/CAT/PET Scan (Routine) - Closed Specialty Diagnoses / Procedures Referred By Contac t Referred To Contact Radiology Diagnoses Malignant neoplasm of upper lobe, left bronchus or lung (HCC) Malignant neoplasm of upper lobe, right bronchus or lung (HCC) Malignant neoplasm of lower lobe, right bronchus or lung (HCC) Procedures PET/CT FDG Skull to Thigh Raleigh Jay MD PhD [address] [place] [address] Phone: tel: fax: [address] [phone] Referral ID Status Reason Start Date Expiration Date Visits Re quested Visits Authorized [id number] Closed 01/02/2024 04/01/2024 2 2 Encounter Details Date Type Department Care Team (Latest Contact Info) Description 01/02/2024 10:04 AM CDT - 01/02/2024 11:59 PM CDT Hospital Encounter [facility] Medical Building [address] [place] [address] Malignant neoplasm of upper lobe, left bronchus [...] on file Legal Sex Female 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 Gender Identity Not on file Sexual Orientation [...] mg total) by mouth daily 11/08/2022 omega 7-zzn-qxj-fish oil 100-160-1,000 mg capsuleIndicatio ns:hypertriglyce ridemia Take [...] Procedure Name Priority Date/Time Associated Diagnosis Comments PET/CT FDG SKULL TO THIGH Schedule Routine, Read Routine (OP Routine) 01/02/2024 12:01 PM CDT Malignant neoplasm of upper lobe, left bronchus or lung (HCC) Malignant neoplasm of upper lobe, right bronchus or lung (HCC) Malignant neoplasm of lower lobe, right bronchus or lung (HCC) documented in this encounter Results * PET/CT FDG Skull [...] Electronically signed by ??Vel Kong M.D. CH: CHANCE D: ??01/02/2024 2:41 PM T: ??01/02/2024 2:41 PM Report ID: [id number] Reading Location: ??[id number] Procedure Note Vel Kong Jr., MD - [...] by Vel Kong M.D. CH: Report ID: [id number] Reading Location: [place] [address] Raleigh Jay MD PhD IMG PET PROCEDURES [...] MAR Action Action Date Dose Rate Site fludeoxyglucose F-18 (FDG) injection 11.8 millicurie 11.8 millicurie, intravenous, Once in imaging, radiopharmaceutical , Starting on Sun01/02/24 at 1043, For 1 dose Given 01/02/2024 10:36 AM CDT 11.8 millicuries Right Antecubital documented in this encounter Orders Medications Ordered That Rubén ht Not Have Been Administered Count Last Ordered Date First Ordered Date fludeoxyglucose F-18 (FDG) i njection 11.8 millicurie 1 01/02/2024 documented in this encounter Care Teams Hair Spinning Machine Operator Relationship Specialty Start Date End Date Terry Bender DO [address] [place] [address] PCP - General Internal Medicine 12/07/23 Wilmer Taylor MD [address] [facility] [address] [place] [address] Referring Physician Obstetrics and Gynecology 05/09/12 Jeffrey Koch MD [address] [place] [address] Consulting Physician Rheumatology 02/03/21 Luz Lewis MD [address] [place] [address] Referring Physician Surgery 12/14/21 Raleigh Jay MD PhD [address] [place] [address] Radiation Oncologist Radiation Oncology 12/12/22 Ranjan Cazares MD [address] [place] [address] Surgeon Thoracic Surgery 12/12/22 documented as of this encounter
--- OUTSIDE RECORDS SUMMARY | 2024-05-03 02:48 | XMS_ITS | Encounter Summary ---
Author Organization [facility] Address [address] [facility] [address] [place] [address] Phone Care Team Providers Care Professor Of French Name Role Phone Wilmer Taylor MD Unavailable [phone] Jeffrey Koch MD Unavailable [phone] Luz Lewis MD Unavailable [phone] Raleigh Jay MD PhD Unavailable [phone] Ranjan Cazares MD Unavailable [phone] Terry Bender DO Primary Care Provider Encounter Details Date Type Department Care Team (Late st Contact Info) Description 04/08/2024 Telephone [facility] Oncology [address] [place] [address] Medical [address] [facility] [address] [phone] Christine Traore, YONNYT Social History [...] on file Legal Sex Female 10:10 AM SUPERVISOR CONTACT LENS Gender Identity Not on file Sexual Orientation Not on file documented as of this encounter Miscellaneous Notes * Telephone Encounter - Christine Traore CLT - 04/08/2024 11:19 AM SUPERVISOR CONTACT LENS Spoke with granddaughter. Patient is having scan Sunday, will call after they get the results. RVISOR CONTACT LENS documented in this encounter Plan of Treatment Not on file documented as of this encounter Visit Diagnoses Not on filedocumented in this encounter Care Teams Professor Of French Relationship Specialty Start Date End Date Terry Bender DO [address] [place], [place] [id number] PCP - General Internal Medicine 12/07/23 Wilmer Taylor MD [address] [facility] [address] [place] [address] Referring Physician Obstetrics and Gynecology 05/09/12 Jeffrey Koch MD [address] [place] [address] Consulting Physician Rheumatology 02/03/21 Luz Lewis MD [address] [place] [address] Referring Physician Surgery 12/14/21 Raleigh Jay MD PhD [address] [place] [address] Radiation Oncologist Radiation Oncology 12/12/22 Ranjan Cazares MD [address] [place] [address] Surgeon Thoracic Surgery 12/12/22 documented as of this encounter
--- OUTSIDE RECORDS SUMMARY | 2024-05-03 02:48 | XMS_ITS | Referral Summary ---
Author Organization [facility] Address [address] [place] [address] Care Team Providers Care Service Station Manager Name Role Phone Wilmer Taylor MD Unavailable [phone] Jeffrey Koch MD Unavailable [phone] Luz Lewis MD Unavailable [phone] Raleigh Jay MD PhD Unavailable [phone] Ranjan Cazares MD Unavailable [phone] Terry Bender DO Primary Care Provider [phone] Encounters Date Type Department Care Team Description 04/24/2024 1:00 PM DRAMATIC DIRECTOR Office Visit [facility] Radiation Oncology [address] [place] [id number] Raleigh Jay MD PhD Malignant neoplasm of lower lobe, right bronchus or lung (HCC) (Primary Dx); Malignant neoplasm of upper lobe, left bronchus or lung (HCC); Malignant neoplasm of upper lobe, right bronchus or lung (HCC) 04/17/2024 9:15 AM DRAMATIC DIRECTOR Office Visit [address] [address] Martina Elizabeth PA 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 04/10/[address] [address] [place], July. 04/08/2024 Telephone [facility] 4 [facility] Bldg B [facility] [address] [place] [id number] Christine Traore, CLT 03/19/2024 Telephone [facility] Radiation Oncology [address] [place] [address] Radha Riley, CLAIM EXAMINER from Last 3 Months Allergies Active Allergy Reactions Criticality Noted Date [...] by mouth daily after lunch Active omega 5-upw-blz-fish oil 100-160-1,000 mg capsuleIndicat ions:hypertrig lyceridemia Take [...] puffs 2 (two) times a day 04/17/20 24 Discontin ued(Alter carlin therapy) methotrexate 2.5 mg tablet TAKE 5 TABLETS BY MOUTH ONCE WEEKLY ON WEDNESDAYS 60 tablet 1 4 04/17/20 24 Discontin ued(Reord er) Active Problems Patient Care [...] is a former smoker who quit in 2015 and has a 40 pack year smoking [...] PRN. Assessment & Plan (05/21/2023 12:22 PM DRAMATIC DIRECTOR): Pain overlying right lateral chest wall. TTP [...] 12/12/2022:Stage IA2(cT1b, cN0, cM0) - Signed by Rlaeigh Jay MD PhD on 12/12/2022 Lung nodule 12/07/2022 Hilar adenopathy 11/13/2022 AIN grade III 11/21/2021 Overview (11/21/2021): Added automatically from request for surgery [id number] Bronchogenic lung cancer, right 09/12/2021 COPD (chronic obstructive pulmonary disease) Assessment & Plan (09/12/2021 4:10 PM CDT): - cont inhalers - wean O2 as tolerated History of lobectomy of lung 09/01/2021 Overview (09/01/2021): Added automatically from request for surgery [id number] termite renewal inspector current use 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 drug 2021 Assessment & Plan (04/17/2024 9:13 AM DRAMATIC DIRECTOR): Hepatitis negative: 02/2021 Assessment & Plan (10/08/2023 9:05 AM CDT): Hepatitis negative: 02/2021 Assessment & Plan (07/09/2023 9:21 AM CDT): Hepatitis negative: 02/2021 Assessment & Plan (05/21/2023 10:12 AM DRAMATIC DIRECTOR): Hepatitis negative: 02/2021 Assessment & Plan (02/12/2023 11:59 AM CDT): Hepatitis negative: 02/2021 Assessment & Plan (10/09/2022 1:07 PM CDT): Hepatitis negative: 02/2021 Assessment & Plan (05/15/2022 10:43 AM DRAMATIC DIRECTOR): Hepatitis negative: 02/2021 Assessment & Plan (01/16/2022 10:56 AM CDT): Hepatitis negative: 02/2021 Assessment & Plan (10/17/2021 12:11 PM CDT): Hepatitis negative: 02/2021 Assessment & Plan (06/20/2021 10:12 AM DRAMATIC DIRECTOR): Hepatitis negative: 02/2021 Rheumatoid arthritis involvi ng both hands with positive rheumatoid factor (CMS/HCC) 02/28/2021 Overview (03/01/2021): Labs (02/28/2021): Cr 0.98, WBC 11.4, ESR 37, CRP 3.8 Hepatitis negative: 02/2021 Assessment & Plan (04/17/2024 9:44 AM DRAMATIC DIRECTOR): Cdai in remission. Seropositive RA (+RF, CCP) [...] needed. Assessment & Plan (05/21/2023 12:18 PM DRAMATIC DIRECTOR): Low cdai. Seropositive RA (+RF, CCP) that [...] needed. Assessment & Plan (05/15/2022 10:55 AM DRAMATIC DIRECTOR): Low cdai. Seropositive RA (+RF, CCP) that [...] needed. Assessment & Plan (06/20/2021 10:11 AM DRAMATIC DIRECTOR): Seropositive RA (+RF, CCP) that remains well controlled with MTX 12.5mg weekly. Main complaints are pain involving the R 4th PIP joints and cervical spine which are degenerative however is responding well to Voltaren gel otc. Will continue MTX 12.5mg weekly and folic acid 1mg daily.Routine labs today. Follow up in 3 months. Sooner if needed. Assessment & Plan (03/14/2021 10:50 AM DRAMATIC DIRECTOR): Seropositive RA (+RF, CCP) that remains well [...] Koch. Assessment & Plan (02/28/2021 9:54 AM DRAMATIC DIRECTOR): 70-year-old female with PMHx of HTN, COPD, [...] 02/28/2021 Assessment & Plan (04/17/2024 9:13 AM DRAMATIC DIRECTOR): Pain worse with activity and improved with [...] PM&R. Assessment & Plan (05/21/2023 12:11 PM DRAMATIC DIRECTOR): Pain worse with activity and improved with [...] exercises. Assessment & Plan (05/15/2022 10:43 AM DRAMATIC DIRECTOR): Pain worse with activity and improved with [...] exercises. Assessment & Plan (06/20/2021 10:11 AM DRAMATIC DIRECTOR): Pain worse with activity and improved with rest. Denies radiating pain. 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 Patient defers PT and worried about NSAIDs with her current medication regimen. Taking tylenol otc prn with some relief. Using Voltaren gel otc prn with good relief. Continue home exercises. Assessment & Plan (03/14/2021 10:52 AM DRAMATIC DIRECTOR): Pain worse with activity and improved with [...] pain. Assessment & Plan (02/28/2021 9:57 AM DRAMATIC DIRECTOR): Pain worse with activity and improved with [...] PPX - PT to eval and treat Immunizations Name Administration Dates Next Due Influenza, Quadrivalent, Kaylen l Culture-based MDCK, Preservative Free, Antibiotic Free, Intramuscular 02/01/2020 Influenza, Quadrivalent, Spl it, Intramuscular 02/12/2019 Influenza, Trivalent, High D ose, Split, Preservative Free, Intramuscular 01/31/2018,01/28/2017,02/18/2014 Influenza, Unspecified 03/03/2013 Moderna SARS-CoV-2 Monovalen t Vaccination (12+ YRS) 03/19/2021,07/13/2020,06/22/2020 Pneumococcal Polysaccharide PPV23 05/07/2017 ZOSTER LIVE 01/16/2018,11/08/2017,06/23/2009 Social History Tobacco Use Types Packs/Day Years [...] on file Legal Sex Female 10:10 AM DRAMATIC DIRECTOR Gender Identity Not on file Sexual Orientation Not on file Last Filed Vital Signs Vital Sign Reading Time Taken Comments Blood Pressure 126/69 04/24/2024 12:56 PM DRAMATIC DIRECTOR Pulse 97 04/24/2024 12:56 PM DRAMATIC DIRECTOR Temperature 36.7 ??C (98 ??F) 04/24/2024 12:56 PM DRAMATIC DIRECTOR Respiratory Rate 22 04/24/2024 12:56 PM DRAMATIC DIRECTOR Oxygen Saturation 98% 04/17/2024 9:02 AM DRAMATIC DIRECTOR Inhaled Oxygen Concentration - - Weight 58.2 kg (128 lb 6.4 oz) 04/24/2024 12:56 PM DRAMATIC DIRECTOR Height 162.6 cm (5' 4 ) 04/17/2024 9:02 AM DRAMATIC DIRECTOR Body Mass Index 22.04 04/17/2024 9:02 AM DRAMATIC DIRECTOR Plan of Treatment Not on file Procedures Procedure Name Priority Date/Time Associated Diagnosis Comments CRP (ACUTE PHASE) Routine 04/17/2024 9:4 1 AM DRAMATIC DIRECTOR 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) termite renewal inspector current use 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 drug ERYTHROCYTE SEDIMENTATION RATE Routine 04/17/2024 9:41 AM DRAMATIC DIRECTOR 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) [facility] current use 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 drug CBC WITH AUTO DIFFERENTIAL Routine 04/17/2024 9:41 AM DRAMATIC DIRECTOR 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) termite renewal inspector current use 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 drug COMPREHENSIVE METABOLIC PANEL Routine 04/17/2024 9:41 AM DRAMATIC DIRECTOR 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) [facility] current use 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 drug CT CHEST W CONTRAST Schedule Routine, Read Routine (OP Routine) 04/11/2024 2:52 PM DRAMATIC DIRECTOR Malignant neoplasm of upper lobe, left bronchus or lung (HCC) Malignant neoplasm of upper lobe, right bronchus or lung (HCC) Malignant neoplasm of lower lobe, right bronchus or lung (HCC) HEPATITIS PANEL, ACUTE Routine 02/28/2021 10:09 AM DRAMATIC DIRECTOR 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) Fatigue, unspecified type [facility] current use 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 drug from Last 3 Months or Most Recently Relevant to Health Maintenance Results * (ABNORMAL) CBC with auto differential (04/17/2024 9:41 AM DRAMATIC DIRECTOR) Pathologist [facility] WBC 8.6 3.8 - 10.8 Thousand/u L [...] 1.2 % [facility] Blood 04/17/2024 9:4 1 AM DRAMATIC DIRECTOR 04/17/2024 9:41 AM DRAMATIC DIRECTOR Martina JONES LAB BLOOD ORDERABLES Final Result Performing Organization Address [facility]/ZIP Co de Phone Number QUEST [facility] [address] [place] [address] * (ABNORMAL) Erythrocyte sedimentation rate (04/17/2024 9:41 AM DRAMATIC DIRECTOR) Pathologist [facility] Erythrocyte sedimentation rate 34(H) < OR = 30 mm/h [facility] Blood 04/17/2024 9:41 AM DRAMATIC DIRECTOR 04/17/2024 9:41 AM DRAMATIC DIRECTOR Martina JONES LAB BLOOD ORDERABLES Final Result Performing Organization Address [facility] Co de Phone Number QUEST [facility] [address] [place] [address] * (ABNORMAL) CRP (acute phase) (04/17/2024 9:41 AM DRAMATIC DIRECTOR) Pathologist [facility] C-RP 12.2(H) <8.0 mg/L [facility] Blood 04/17/2024 9:41 AM DRAMATIC DIRECTOR 04/17/2024 9:41 AM DRAMATIC DIRECTOR Martina JONES LAB BLOOD ORDERABLES Final Result Performing Organization Address [facility] Co de Phone Number QUEST [facility] [address] [place] [address] * (ABNORMAL) Comprehensive metabolic panel (04/17/2024 9:41 AM DRAMATIC DIRECTOR) Glucose 102(H) 65 - 99 mg/dL [facility] [...] [facility] Blood 04/17/2024 9:41 AM DRAMATIC DIRECTOR 04/17/2024 9:41 AM DRAMATIC DIRECTOR Martina JONES LAB BLOOD ORDERABLES Final Result [facility] [address] [place] [address] * CT Chest W Contrast (04/11/2024 2:52 PM DRAMATIC DIRECTOR) Anatomical Region Laterality Modality Body N/A Computed Tomogra phy 04/22/2024 11:4 9 AM DRAMATIC DIRECTOR Narrative 04/22/2024 12:04 PM DRAMATIC DIRECTOR EXAM DESCRIPTION: CT CHEST W CONTRAST REASON [...] PM T: ??04/22/2024 12:04 PM Report ID: [id number] Reading Location: [id number] Procedure Note Dakota Villar MD - 04/22/2024 [...] Electronically signed by Dakota Villar M.D. RB: RB Report ID: [id number] Reading Location: [id number] us Raleigh Jay MD PhD IMG CT PROCEDURES Ulpe l Result * Hepatitis panel, acute (02/28/2021 10:09 AM DRAMATIC DIRECTOR) Hep A IgM NON-REACTI VE NON-REACT MARIANNA [facility] Comment: For additional information, please refer to http://uTaP.[employer]/faq/AOO841 (This link is being provided for informational/ [...] a test for HCV RNA (test code 03396) is suggested. For additional information please refer to http://uTaP.[employer]/faq/GMH82g8 (This link is being provided for informational/ educational purposes only.) Blood specimen (specimen) 02/28/2021 10:09 AM DRAMATIC DIRECTOR 02/28/2021 10:15 AM DRAMATIC DIRECTOR us Martina JONES LAB MICROBIOLOGY - GE NERAL ORDERABLES Final Result [facility] [address] [place] [address] from Last 3 Months or Most Recently Relevant to Health Maintenance Insurance [facility] Advance Directives For more information, please contact: [phone] * Full Code (Latest Code Status on File) Date Activated Date Inactivated Comments 09/12/2021 4:12 PM 09/14/2021 4:07 PM Care Teams Service Station Manager Relationship Specialty Start Date End Date Terry Bender DO [address] [facility] [address] [place] [address] PCP - General Internal Medicine 12/07/23 Wilmer Taylor MD [address] [place] [address] [address] [place] [address] Referring Physician Obstetrics and Gynecology 05/09/12 Jeffrey Koch MD [address] [place] [address] Consulting Physician Rheumatology 02/03/21 Luz Lewis MD [address] [place] [address] Referring Physician Surgery 12/14/21 Raleigh Jay MD PhD [address] [place] [address] Radiation Oncologist Radiation Oncology 12/12/22 Ranjan Cazares MD [address] [facility] [address] [place] [address] Surgeon Thoracic Surgery 12/12/22
--- OUTSIDE RECORDS SUMMARY | 2024-05-03 02:48 | XMS_ITS | Encounter Summary ---
Author Organization [facility] Healthcare Address [address] [place] [address] Care Team Providers Care Ext Js Developer Name Role Phone Wilmer Taylor MD Unavailable [phone] Jeffrey Koch MD Unavailable [phone] Luz Lewis MD Unavailable [phone] Raleigh Jay MD PhD Unavailable [phone] Ranjan Cazares MD Unavailable [phone] Terry Bender DO Primary Care Provider [phone] Reason for Referral * Consultation (Routine) - Authorized Specialty Diagnoses / Procedures Referred By Contac t Referred To Contact Pulmonary Disease / Pulmonology Diagnoses Malignant neoplasm of lower lobe, right bronchus or lung (HCC) Malignant neoplasm of upper lobe, left bronchus or lung (HCC) Malignant neoplasm of upper lobe, right bronchus or lung (HCC) Raleigh Jay MD PhD [address] [place] [address] Phone: tel: fax: Frankie Romero MD [address] [address] Phone: tel: fax: Referral ID Status Reason Start Date Expiration Date Visits Requested Visits Authorized [id number] Authorized Specialty Services Required 04/24/2024 05/24/2025 1 1 Question Answer Please select the performing region: [facility] Medical Group [[id number]] Please select the performing department: [facility] PUL [address] [[id number]] To provider: FRANKIE ROMERO [[id number]] # of visits: 1 Comments For consideration of bronch/EBUS for biopsy [employer] Reason for Visit * Radiation Therapy (Routine) - Authorized Specialty Diagnoses / Procedures Referred By Contac t Referred To Contact Radiation Oncology Diagnoses Malignant neoplasm of lower lobe, right bronchus or lung Malignant neoplasm of upper lobe, right bronchus or lung Terry Bender DO [address] [place] [address] Phone: tel: fax: Raleigh Jay MD PhD [address] [place] [address] Phone: tel: fax: Referral ID Status Reason Start Date Expiration Date Visits Requested Visits Authorized [id number] Authorized Continuity of Care 04/01/2024 04/01/2025 12 12 Encounter Details Date Type Department Care Team (Late st Contact Info) Description 04/24/2024 1:00 PM [employer] Office Visit [facility] Radiation Oncology [address] [place] [id number] Raleigh Jay MD PhD [address] [place] [address] Malignant neoplasm of lower lobe, right bronchus or lung (HCC) (Primary Dx); Malignant neoplasm of upper lobe, left bronchus or lung (HCC); Malignant neoplasm of upper lobe, right bronchus or lung (HCC) Social [...] on file Legal Sex Female 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[employer] Gender Identity Not on file Sexual Orientation Not on file documented as of this encounter Last Filed Vital Signs Vital Sign Reading Time Taken Comments Blood Pressure 126/69 04/24/2024 12:56 PM [employer] Pulse 97 04/24/2024 12:56 PM [employer] Temperature 36.7 ??C (98 ??F) 04/24/2024 12:56 PM [employer] Respiratory Rate 22 04/24/2024 12:56 PM [employer] Oxygen Saturation - - Inhaled Oxygen Concentration - - Weight 58.2 kg (128 lb 6.4 oz) 04/24/2024 12:56 PM [employer] Height - - Body Mass Index 22.04 04/17/2024 9:02 AM [employer] documented in this encounter Progress Notes * Raleigh Jay MD PhD - 04/24/2024 1:00 PM CST Staff Physician: Raleigh Jay MD PhD Referring Physician: Patient Care Team: Wilmer Taylor MD as Referring Physician (Obstetrics and Gynecology) Luz Lewis MD as Referring Physician (Surgery) Date of Service: 04/24/2024 RADIATION ONCOLOGY FOLLOW UP NOTE IDENTIFYING DATA: [...] 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 INTERVAL HISTORY: Since our last follow-up, she states that she has been relatively stable from a respiratory standpoint aside from the previous 3-4 days. She states that she recently developed an upper respiratory infection with some increased shortness of breath and cough as well as postnasal drip. She denies any fever or chills. Otherwise, she states that she had relatively stable respiratory function with stable chronic cough. She denies any current or previous hemoptysis. She denies any dysphagia or odynophagia. She denies any headache, nausea, vomiting, vision changes, or any focal numbness or weakness. She denies any pain (0/10). She did have a repeat CT of the chest on 04/11/2024 some opacities previously seen appearing to be similar in size including a right lower lobe interstitial densities as well as new or enlarging lesions including predominantly within the left lower lobe. Some of these changes were felt to potentially be related to infection though certainly related to disease progression as well. There was no new adenopathy. She otherwise denies any additional changes to her medical hi story. PREVIOUS RADIATION: 5500 cGy in 5 fractions [...] hematologic/lymphatic, or immunologic systems. PHYSICAL EXAMINATION: BP 126/69 Pulse 97 Temp 36.7 ??C (98 ??F) Resp 22 Wt 58.2 kg (128 lb 6.4 oz) BMI 22.04 kg/m?? Pain Score and Location 04/24/24 1256 PainSc: 0-No pain ECOG Performance: 1 Physical Exam Constitutional: General: She is not in acute distress. Appearance: Normal appearance. She is not toxic-appearing. Comments: Thin female HENT: Head: Normocephalic and atraumatic. Eyes: Extraocular [...] this lesion 5500 cGy completed on 09/07/2023. Though she did have radiographic evidence of disease progression in the bilateral lungs at prior follow-up, she did not have any lesions amenable to noninvasive biopsy and was not a candidate for surgical biopsy though short-term follow-up imaging was recommended. On her recent imaging, she has had some radiographic evidence of disease progression and these were reviewed with both pulmonology and Interventional Radiology. She was still not felt to be a good candidate for biopsy attempt with percutaneous biopsy given the location of her sites of disease but was potentially a candidate for endobronchial attempted biopsy. We will therefore refer the patient to pulmonology and will then plan to see her back in our office after this has been performed to review the final pathology and determine a management approach at that time. PLAN: Referral to pulmonology for consideration of bronchoscopy for biopsy. We will follow up with the patient in our clinic once that has been performed to review the results and determine the next best course of action. Continue close follow up with her other healthcare providers. RAD ONC PAIN PLAN: The patient is not currently having any pain that requires changes in pain management. My total face to face time with this patient during this office visit: 20 minutes DISEASE STATUS/TOXICITY: Disease Status: Unknown New metachronous cancer?: No [employer] documented in this encounter Plan of Treatment Scheduled Referrals Name Type Priority Associated Diagnoses Order Schedule Ambulatory referral to Pulmonology Outpatient Referral Routine Malignant neoplasm of lower lobe, right bronchus or lung (HCC) Malignant neoplasm of upper lobe, left bronchus or lung (HCC) Malignant neoplasm of upper lobe, right bronchus or lung (HCC) Expected: 05/08/2024 (Approximate), Expires: 04/24/2025 documented as of this encounter Visit Diagnoses Diagnosis Malignant neoplasm of lower lobe, right bronchus or lung (HCC)- Primary Malignant neoplasm of upper lobe, left bronchus or lung (HCC) Malignant neoplasm of upper lobe, right bronchus or lung (HCC) documented in this encounter Care Teams Ext Js Developer Relationship Specialty Start Date End Date Terry Bender DO [address] [place] [address] PCP - General Internal Medicine 12/07/23 Wilmer Taylor MD [address] [facility] [address] [place] [address] Referring Physician Obstetrics and Gynecology 05/09/12 Jeffrey Koch MD [address] [place] [address] Consulting Physician Rheumatology 02/03/21 Luz Lewis MD [address] [place] [address] Referring Physician Surgery 12/14/21 Raleigh Jay MD PhD [address] [facility] [place] [address] Radiation Oncologist Radiation Oncology 12/12/22 Ranjan Cazares MD [address] [facility] [id number] [place] [address] Surgeon Thoracic Surgery 12/12/22 documented as of this encounter
--- OUTSIDE RECORDS SUMMARY | 2024-05-03 02:49 | XMS_ITS | Encounter Summary ---
Author Organization [facility] Healthcare Address [address] [place] [address] Care Team Providers Care Bolt Maker Name Role Phone Wilmer Taylor MD Unavailable [phone] Jeffrey Koch MD Unavailable [phone] Luz Lewis MD Unavailable [phone] Jay Argueta MD Primary Care Provider [phone] Raleigh Jay MD PhD Unavailable [phone] Ranjan Cazares MD Unavailable [phone] Encounter Details Date Type Department Care Team (Late st Contact Info) Description 01/18/2023 Orders Only [facility] Interventional Pulmonology [address] [place] [address] Nancy Austin, RN Social History Tobacco Use Types Packs/Day Years [...] on file Legal Sex Female 10:10 AM [employer] Gender Identity Not on file Sexual Orientation Not on file documented as of this encounter Plan of Treatment Not on file documented as of this encounter Visit Diagnoses Not on filedocumented in this encounter Care Teams Bolt Maker Relationship Specialty Start Date End Date Jay Argueta MD [address] [place] [address] PCP - General Family Practice 11/29/22 10/07/23 Wilmer Taylor MD [address] [facility] [address] [place] [address] Referring Physician Obstetrics and Gynecology 05/09/12 Jeffrey Koch MD [address] [place] [address] Consulting Physician Rheumatology 02/03/21 Luz Lewis MD [address] [place] [address] Referring Physician Surgery 12/14/21 Raleigh Jay MD PhD [address] [place] [address] Radiation Oncologist Radiation Oncology 12/12/22 Ranjan Cazares MD [address] [facility] [address] [place] [address] Surgeon Thoracic Surgery 12/12/22 documented as of this encounter
--- OUTSIDE RECORDS SUMMARY | 2024-05-03 02:49 | XMS_ITS | Encounter Summary ---
Author Organization [facility] Address [address] [place] [phone] Phone Care Team Providers Care Station Baggage Agent Name Role Phone Wilmer Taylor MD Unavailable [phone] Jeffrey Koch MD Unavailable [phone] Luz Lewis MD Unavailable [phone] Jay Argueta MD Primary Care Provider [phone] Raleigh Jay MD PhD Unavailable [phone] Ranjan Cazares MD Unavailable [phone] Reason for Visit * Consultation (Routine) - Authorized Specialty Diagnoses / Procedures Referred By Contac t Referred To Contact Rheumatology Diagnoses Rheumatoid arthritis with rheumatoid factor of multiple sites without organ or systems involvement (HCC) Jay Argueta MD [address] [place] [address] Phone: tel: fax: Jeffrey Koch MD [address] [place] [address] Phone: tel: fax: Referral ID Status Reason Start Date Expiration Date Visits Requested Visits Authorized [id number] Authorized Specialty Services Required 05/17/2023 05/15/2024 12 12 Encounter Details Date Type Department Care Team (Late st Contact Info) Description 07/09/2023 10:00 AM CDT Office Visit [facility] [address] [place] [phone] Martina Elizabeth PA [address] [place] [address] 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) (Primary Dx); Neck pain; Musculoskeletal pain; 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 Social History Tobacco Use Types Packs/Day Years Used Date Smoking Tobacco: Former Cigarettes 0.3 50 1 969 - 2014 Smokeless Tobacco: Never Alcohol Use Standard Drinks/Week [...] on file 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 Subjective/Objective Patient ID: Loida Guillory is a 73 y.o. female. Chief Complaint RA HPI Returns for routine follow up and is accompanied by her daughter today. Had walking pneumonia and was given 2 IV abx then was put on levaquin. Noted onset of muscle pain/swelling and tendon pain in the achilles tendons. Stopped this shortly after. Has appt to see PCP. Joints doing well overall. No longer having as much pain under the right shoulder/arm which improved with HEP and tylenol 2 tabs TID. She wants to reduce tylenol again as she hates taking so much medication. Has neck pain all the time. Defers PT. Defers injections/spinal injections so defers PM&R. Was using voltaren gel but now using pain relief cream with 750mg CBD as she feels this works just a little bit better. Takes 2 tylenol as well with benefit. Denies fevers, infections, rashes, mouth sores, cough, [...] Skin: Negative for rash. Vitals: Vitals BP 118/76 Pulse 85 Wt 63 kg (139 lb) SpO2 94% BMI 23.86 kg/m?? Body mass index is 23.86 kg/m??. Bold X is a current medication. [...] heart sounds. No murmur heard. Pulmonary/Chest: Effort normal and breath sounds normal. no wheezes. no rales. Musculoskeletal: See cdai. H/B nodes bilaterally. Neurological: alert and oriented to person, place, and time. Skin: Skin is warm and dry. No rash noted. Psychiatric: normal mood and affect. speech is normal and behavior is normal. Cognition and memory are normal. Patient Global: 20 mm Provider Global: 20 mm CDAI: 4 In remission: 0-3 Low: 4-10 Moderate: 11-22 [...] hands with positive rheumatoid factor (CMS/HCC) (HCC) (Primary) Assessment & Plan: Low cdai. Seropositive [...] up in 3-4 months. Sooner if needed. Neck pain Assessment & Plan: Pain worse [...] she defers PT or injections per PM&R. Musculoskeletal pain Assessment & Plan: Pain overlying right lateral chest wall along with tenderness along intercostal muscles and serratus anterior. Pain with certain shoulder movements suggests mechanical pain. Improved since last visitwith HEP and tylenol 2 tabs TID PRN. [facility] current use 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 drug Assessment & Plan: Hepatitis negative: 02/2021 Martina Elizabeth PA-C Cosigned by Jeffrey Koch MD at 07/12/2023 11:46 AM CDT documented in this encounter Miscellaneous Notes * Assessment & Plan Note - Martina Elizabeth PA - 07/09/2023 10:21 AM CDTAssociated Problem(s): Musculoskeletal pain Pain overlying right lateral chest wall along with tenderness along intercostal muscles and serratus anterior. Pain with certain shoulder movements suggests mechanical pain. Improved since last visitwith HEP and tylenol 2 tabs TID PRN. 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)- Primary Neck pain Cervicalgia Musculoskeletal pain Unspecified myalgia and myositis [facility] current use 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 drug documented in this encounter Care Teams Station Baggage Agent Relationship Specialty Start Date End Date Jay Argueta MD [address] [place] [address] PCP - General Family Practice 11/29/22 10/07/23 Wilmer Taylor MD [address] [facility] [address] [place] [address] Referring Physician Obstetrics and Gynecology 05/09/12 Jeffrey Koch MD [address] [place] [address] Consulting Physician Rheumatology 02/03/21 Luz Lewis MD [address] [place] [address] Referring Physician Surgery 12/14/21 Raleigh Jay MD PhD [address] [place] [address] Radiation Oncologist Radiation Oncology 12/12/22 Ranjan Cazares MD [address] [facility] [address] [place] [address] Surgeon Thoracic Surgery 12/12/22 documented as of this encounter
--- OUTSIDE RECORDS SUMMARY | 2024-05-03 02:49 | XMS_ITS | Encounter Summary ---
Author Organization [facility] Healthcare Address [address] [place] [address] Care Team Providers Care Glass Lined Tank Repairer Name Role Phone Wilmer Taylor MD Unavailable [phone] Jeffrey Koch MD Unavailable [phone] Luz Lewis MD Unavailable [phone] Jay Argueta MD Primary Care Provider [phone] Raleigh Jay MD PhD Unavailable [phone] Ranjan Cazares MD Unavailable [phone] Encounter Details Date Type Department Care Team (Late st Contact Info) Description 07/12/2023 Telephone [facility] [address] [place] [id number] Azeb Iyer Social History Tobacco Use Types Packs/Day Years [...] on file 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 Gender Identity Not on file Sexual Orientation Not on file documented as of this encounter Miscellaneous Notes * Telephone Encounter - Azeb Iyer - 07/12/2023 1:[address] APPT REMINDER WITH PT documented in this encounter Plan of Treatment Not on file documented as of this encounter Visit Diagnoses Not on filedocumented in this encounter Care Teams Glass Lined Tank Repairer Relationship Specialty Start Date End Date Jay Argueta MD [address] [place] [address] PCP - General Family Practice 11/29/22 10/07/23 Wilmer Taylor MD [address] [address] Referring Physician Obstetrics and Gynecology 05/09/12 Jeffrey Koch MD [address] [place] [address] Consulting Physician Rheumatology 02/03/21 Luz Lewis MD [address] [place] [address] Referring Physician Surgery 12/14/21 Raleigh Jay MD PhD [address] [place] [address] Radiation Oncologist Radiation Oncology 12/12/22 Ranjan Cazares MD [address] [facility] [address] [place] [address] Surgeon Thoracic Surgery 12/12/22 documented as of this encounter
--- OUTSIDE RECORDS SUMMARY | 2024-05-03 02:49 | XMS_ITS | Encounter Summary ---
Author Organization [facility] Healthcare Address [address] [place] [address] Care Team Providers Care Waiter/Waitress Third Class Name Role Phone Wilmer Taylor MD Unavailable [phone] Jeffrey Koch MD Unavailable [phone] Luz Lewis MD Unavailable [phone] Jay Argueta MD Primary Care Provider [phone] Raleigh Jay MD PhD Unavailable [phone] Ranjan Cazares MD Unavailable [phone] Encounter Details Date Type Department Care Team (Late st Contact Info) Description 01/05/2023 Orders Only RAD ONC TREATMENTS Miscellaneous, Not [...] on file 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 [employer] Gender Identity Not on file Sexual Orientation Not on file documented as of this encounter Plan of Treatment Not on file documented as of this encounter Procedures Procedure Name Priority Date/Time Associated Diagnosis Comments RAD ONC ARIA SESSION SUMMARY 01/05/2023 10:09 AM CDT documented in this encounter Results * RAD ONC ARIA SESSION SUMMARY (01/05/2023 10:09 AM CDT) Course Name [id number] ARIA Course Plan Date 12/20/2022 12:55 PM ARIA Elapsed Days 4 ARIA Treatment Start Date 01/01/2023 ARIA Treatment Site [id number] ARIA Dose Given To Date (cGy) 5,500 ARIA Session Dosage Given (cGy) 1,100 ARIA Plan ID SBRT RLL LUNG ARIA Fractions Treated 5 ARIA Prescribed Dose Per Fraction (cGy) 1,100 ARIA Prescribed Total Dose (cGy) 5,500 ARIA 01/05/2023 10:0 9 AM CDT us Not In File Miscellaneous RADIATION ONCOLOGY ORD ERABLES Final Result ARIA documented in this encounter Visit Diagnoses Not on filedocumented in this encounter Care Teams Waiter/Waitress Third Class Relationship Specialty Start Date End Date Jay Argueta MD [address] [place] [address] PCP - General Family Practice 11/29/22 10/07/23 Wilmer Taylor MD [address] [facility] [address] [place] [address] Referring Physician Obstetrics and Gynecology 05/09/12 Jeffrey Koch MD [address] [place] [address] Consulting Physician Rheumatology 02/03/21 Luz Lewis MD [address] [place] [address] Referring Physician Surgery 12/14/21 Raleigh Jay MD PhD [address] [place] [address] Radiation Oncologist Radiation Oncology 12/12/22 Ranjan Cazares MD [address] [facility] [place] [place] [address]08[address] [place] [address] Surgeon Thoracic Surgery 12/12/22 documented as of this encounter
--- OUTSIDE RECORDS SUMMARY | 2024-05-03 02:49 | XMS_ITS | Encounter Summary ---
Author Organization [facility] Healthcare Address [address] [place] [address] Care Team Providers Care Building Insulation Supervisor Name Role Phone Wilmer Taylor MD Unavailable [phone] Jeffrey Koch MD Unavailable [phone] Luz Lewis MD Unavailable [phone] Jay Argueta MD Primary Care Provider [phone] Raleigh Jay MD PhD Unavailable [phone] Ranjan Cazares MD Unavailable [phone] Encounter Details Date Type Department Care Team (Late st Contact Info) Description 08/30/2023 11:30 AM CDT Treatment [facility] Radiation Oncology [address] [place] [phone] Social History Tobacco Use Types Packs/Day Years [...] on file 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 Gender Identity Not on file Sexual Orientation Not on file documented as of this encounter Plan of Treatment Not on file documented as of this encounter Visit Diagnoses Not on filedocumented in this encounter Care Teams Building Insulation Supervisor Relationship Specialty Start Date End Date Jay Argueta MD [address] [place] [address] PCP - General Family Practice 11/29/22 10/07/23 Wilmer Taylor MD [address] [facility] [address] [place] [address] Referring Physician Obstetrics and Gynecology 05/09/12 Jeffrey Koch MD [address] [place] [address] Consulting Physician Rheumatology 02/03/21 Luz Lewis MD [address] [place] [address] Referring Physician Surgery 12/14/21 Raleigh Jay MD PhD [address] [place] [address] Radiation Oncologist Radiation Oncology 12/12/22 Ranjan Cazares MD [address] [facility] [address]08-22 [place] [address] Surgeon Thoracic Surgery 12/12/22 documented as of this encounter
--- OUTSIDE RECORDS SUMMARY | 2024-05-03 02:49 | XMS_ITS | Encounter Summary ---
Author Organization [facility] Healthcare Address [address] [place] [address] Care Team Providers Care Manager Architecture Name Role Phone Wilmer Taylor MD Unavailable [phone] Jeffrey Koch MD Unavailable [phone] Luz Lewis MD Unavailable [phone] Jay Argueta MD Primary Care Provider [phone] Raleigh Jay MD PhD Unavailable [phone] Ranjan Cazares MD Unavailable [phone] Encounter Details Date Type Department Care Team (Late st Contact Info) Description 08/22/2023 11:15 AM CDT Treatment 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 Gender Identity Not on file Sexual Orientation Not on file documented as of this encounter Plan of Treatment Not on file documented as of this encounter Visit Diagnoses Not on filedocumented in this encounter Care Teams Manager Architecture Relationship Specialty Start Date End Date Jay Argueta MD [address] [place] [address] PCP - General Family Practice 11/29/22 10/07/23 Wilmer Taylor MD [facility] [address] Referring Physician Obstetrics and Gynecology 05/09/12 Jeffrey Koch MD [address] [place] [address] Consulting Physician Rheumatology 02/03/21 Luz Lewis MD [address] [place] [address] Referring Physician Surgery 12/14/21 Raleigh Jay MD PhD [address] [place] [address] Radiation Oncologist Radiation Oncology 12/12/22 Ranjan Cazares MD [address] [facility] [address] [place] [address] Surgeon Thoracic Surgery 12/12/22 documented as of this encounter
--- OUTSIDE RECORDS SUMMARY | 2024-05-03 02:49 | XMS_ITS | Encounter Summary ---
Author Organization [facility] Address [address] [place] [address] Care Team Providers Care Manager Animal Name Role Phone Wilmer Taylor MD Unavailable [phone] Jfefrey Koch MD Unavailable [phone] Luz Lewis MD Unavailable [phone] Jay Argueta MD Primary Care Provider + [phone] Raleigh Jay MD PhD Unavailable + [phone] Ranjan Cazares MD Unavailable [phone] Reason for Referral * MRI/CAT/PET Scan (Routine) - Closed Specialty Diagnoses / Procedures Referred By Contac t Referred To Contact Radiology Diagnoses Malignant neoplasm of lower lobe, right bronchus or lung (HCC) Malignant neoplasm of upper lobe, right bronchus or lung (HCC) Procedures PET/CT FDG Skull to Thigh Raleigh Jay MD PhD [address] [place] [address] Phone: tel: fax: [address] [phone] Referral ID Status Reason Start Date Expiration Date Visits Re quested Visits Authorized [id number] Closed 08/08/2023 11/06/2023 2 2 Reason for Visit * MRI/CAT/PET Scan (Routine) - Closed Specialty Diagnoses / Procedures Referred By Micah t Referred To Contact Radiology Diagnoses Malignant neoplasm of lower lobe, right bronchus or lung (HCC) Malignant neoplasm of upper lobe, right bronchus or lung (HCC) Procedures PET/CT FDG Skull to Thigh Raleigh Jay MD PhD [address] [place] [address] Phone: tel: fax: [address] [phone] Referral ID Status Reason Start Date Expiration Date Visits Re quested Visits Authorized [id number] Closed 08/08/2023 11/06/2023 2 2 Encounter Details Date Type Department Care Team (Latest Contact Info) Description 08/08/2023 6:45 AM CDT - 08/08/2023 11:59 PM CDT Hospital Encounter [facility] [address] [place] [address] Malignant neoplasm of lower lobe, right bronchus or lung (HCC); Malignant neoplasm of upper lobe, right bronchus or lung (HCC) Discharge [...] on file 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 Gender Identity Not on file Sexual Orientation [...] mg total) by mouth every morning 02/26/2021 losartan (COZAAR) 50 mg tablet Take 1 tablet (50 mg total) by mouth daily 11/08/2022 omega 5-olk-ztj-fish oil 100-160-1,000 mg capsuleIndicatio ns:hypertriglyce ridemia Take 1 capsule by mouth daily after dinner polyethylene glycol (MIRALAX) 17 gram packetIndication s:constipation Take 1 packet (17 g total) by mouth daily 09/15/2021 budesonide-formo teroL (SYMBICORT) 160-4.5 mcg/actuation inhalerIndicatio ns:Bronchospasm Prevention with COPD Inhale 2 puffs 2 (two) times a day folic acid (FOLVITE) 1 mg tabletIndication s:Folate Deficiency Take 1 tablet (1 mg total) by mouth daily after lunch 90 tablet 3 02/12/2023 4 methotrexate 2.5 mg tablet TAKE 5 [...] THIGH Schedule Routine, Read Routine (OP Routine) 08/08/2023 9:13 AM CDT Malignant neoplasm of lower lobe, right bronchus or lung (HCC) Malignant neoplasm of upper lobe, right bronchus or lung (HCC) documented in this encounter Results * PET/CT FDG Skull to Thigh (08/08/2023 9:13 AM CDT) Anatomical Region Laterality Modality N/A Positron Emissio n Tomography (PET) 08/08/2023 10:3 8 AM CDT Narrative 08/08/2023 10:53 AM CDT EXAM DESCRIPTION: ?? PET/CT FDG SKULL TO THIGH REASON FOR STUDY: Right lung cancer status postradiation December 2022, PET-CT for restaging and subsequent treatment strategy. ??History of a previous biopsy-proven Warthin's tumor. RADIOPHARMACEUTICAL: 12.7 ??mCi F-18 Fluorodeoxyglucose (FDG) via a ??right antecubital ??IV site. TECHNIQUE: The patient's fasting blood glucose level, measured by glucometer before injection of FDG, was ??98 ??mg/dL. ??After intravenous administration of FDG, noncontrast [...] was normalized to body weight. COMPARISON: PET-CT 11/07/2022. ??Correlation is also made with a chest CT 07/13/2023. FINDINGS: For reference, a region of interest of the ascending thoracic aorta has a maximal SUV of ??2.4 . ??For reference, a region of interest of the right hepatic lobe of the liver has a maximal SUV of ??3.4. Head: ??No abnormal FDG activity within the included brain parenchyma. Neck: ??Again seen is a hypermetabolic soft tissue nodule in the right neck just inferior or along the lower aspect of the right parotid gland, superficial to the right sternocleidomastoid muscle. ??This is now 1.1 x 1.7 cm with a maximal SUV of 11.3, previously 2.2 x 1.2 cm with a maximal SUV 8.0. Chest: ??Postsurgical changes are again seen from a right upper lobectomy. ??The previous hypermetabolic area of nodularity in the medial segment right middle lobe is no longer seen. ??There is a new hypermetabolic focus along the right anterior mediastinum 1.3 cm with maximal SUV 6.4. ??The previous prominent FDG activity in the right hilum has resolved. ??No hypermetabolic supraclavicular, hilar, or axillary lymphadenopathy. ??There is granulomatous calcification in the left hilum. ?? As seen on the recent chest CT, there is a left upper lobe pulmonary nodule paramediastinal in location 1.1 cm maximal SUV 6.8. ??There is a small right pleural effusion and mild fibrotic change in the lungs especially in the right lung base. ??There is a subpleural area of nodularity in the left lower lobe 0.8 cm, new from the prior PET-CT or at least more discrete, does not specifically show abnormal metabolic activity. ??There is curvilinear opacity with activity adjacent to the descending thoracic aorta, this is new from the prior study and has a maximal SUV of 4.6, the etiology is indeterminate. ??The heart size is normal. ??Coronary artery calcification is seen. ??There is no pericardial effusion. Abdomen and Pelvis: Liver and spleen demonstrate normal physiologic activity. ?? Gallbladder, spleen, pancreas, and both adrenal glands are normal. ??There is expected excretion of FDG from the kidneys with accumulation of radiotracer in the urinary bladder. ??Moderate sigmoid colon diverticulosis is identified. ?? Abdominal aorta is nonaneurysmal. ??No hypermetabolic abdominal or pelvic lymphadenopathy is seen. Bones: No acute or aggressive appearing osseous lesions are seen.Mild S shaped curvature of the thoracolumbar spine. IMPRESSION: Left upper lobe pulmonary nodule, new from the prior PET-CT is metabolically active likely metastatic. New hypermetabolic likely metastatic focus along the right anterior mediastinum. Previous hypermetabolic right middle lobe nodule no longer seen. Resolution of previous hypermetabolic right hilar wil activity. Metabolically active right neck nodule, by report this is a Warthin's tumor. ?? Correlation with the previous biopsy results recommended. New curvilinear activity adjacent to the descending thoracic aorta is nonspecific, attention on follow-up imaging is recommended. New subpleural nodularity left lower lobe 0.8 cm does not show abnormal activity but is below PET resolution. Attention on follow-up imaging is recommended. ?? THIS IS AN ELECTRONICALLY VERIFIED FINAL REPORT 08/08/2023 10:53 AM - Electronically signed by ??Vel Kong M.D. CH: D: ??08/08/2023 10:53 AM T: ??08/08/2023 10:53 AM Report ID: [id number] Reading Location: ??[id number] Procedure Note Vel Kong Jr., MD - 08/08/2023 EXAM DESCRIPTION: PET/CT FDG SKULL TO THIGH REASON FOR STUDY: Right lung cancer status postradiation December 2022, PET-CT for restaging and subsequent treatment strategy. History of aprevious biopsy-proven Warthin's tumor. RADIOPHARMACEUTICAL: 12.7 mCi F-18 Fluorodeoxyglucose (FDG) via a right antecubital IV site. TECHNIQUE: The patient's fasting blood glucose level, measured byglucometer before injection of FDG, was 98 mg/dL. After intravenous administrationof FDG, noncontrast CT images were obtained for attenuation correction andfor fusion with emission PET images to allow for anatomical localization ofPET findings. Emission PET images were then obtained. The area imaged spannedthe region from the skull base to the thighs. The uptake time wasapproximately 60 minutes. SUV max was normalized to body weight. COMPARISON: PET-CT 11/07/2022. Correlation is also made with a chest CT 07/13/2023. FINDINGS: For reference, a region of interest of the ascending thoracic aorta has a maximal SUV of 2.4 . For reference, a region of interest of the right hepatic lobe of the liver has a maximal SUV of 3.4. Head: No abnormal FDG activity within the included brain parenchyma. Neck: Again seen is a hypermetabolic soft tissue nodule in the right neck just inferior or along the lower aspect of the right parotid gland, superficial to the right sternocleidomastoid muscle. This is now 1.1 x1.7 cm with a maximal SUV of 11.3, previously 2.2 x 1.2 cm with a maximal SUV8.0. Chest: Postsurgical changes are again seen from a right upper lobectomy.The previous hypermetabolic area of nodularity in the medial segment rightmiddle lobe is no longer seen. There is a new hypermetabolic focus along theright anterior mediastinum 1.3 cm with maximal SUV 6.4. The previous prominentFDG activity in the right hilum has resolved. No hypermetabolicsupraclavicular, hilar, or axillary lymphadenopathy. There is granulomatous calcificationin the left hilum. As seen on the recent chest CT, there is a left upper lobe pulmonarynodule paramediastinal in location 1.1 cm maximal SUV 6.8. There is a smallright pleural effusion and mild fibrotic change in the lungs especially in theright lung base. There is a subpleural area of nodularity in the left lowerlobe 0.8 cm, new from the prior PET-CT or at least more discrete, does not specifically show abnormal metabolic activity. There is curvilinearopacity with activity adjacent to the descending thoracic aorta, this is new fromthe prior study and has a maximal SUV of 4.6, the etiology is indeterminate.The heart size is normal. Coronary artery calcification is seen. There is no pericardial effusion. Abdomen and Pelvis: Liver and spleen demonstrate normal physiologicactivity. Gallbladder, spleen, pancreas, and both adrenal glands are normal. Thereis expected excretion of FDG from the kidneys with accumulation ofradiotracer in the urinary bladder. Moderate sigmoid colon diverticulosis is identified. Abdominal aorta is nonaneurysmal. No hypermetabolic abdominal or pelvic lymphadenopathy is seen. Bones: No acute or aggressive appearing osseous lesions are seen.Mild Sshaped curvature of the thoracolumbar spine. IMPRESSION: Left upper lobe pulmonary nodule, new from the prior PET-CT ismetabolically active likely metastatic. New hypermetabolic likely metastatic focus along the right anterior mediastinum. Previous hypermetabolic right middle lobe nodule no longer seen. Resolution of previous hypermetabolic right hilar wil activity. Metabolically active right neck nodule, by report this is a Warthin'stumor. Correlation with the previous biopsy results recommended. New curvilinear activity adjacent to the descending thoracic aorta is nonspecific, attention on follow-up imaging is recommended. New subpleural nodularity left lower lobe 0.8 cm does not show abnormal activity but is below PET resolution. Attention on follow-up imaging is recommended. THIS IS AN ELECTRONICALLY VERIFIED FINAL REPORT 08/08/2023 10:53 AM - Electronically signed by Vel Kong M.D. CH: CHANCE Report ID: [id number] Reading Location: [place] [address] Raleigh Jay MD PhD IMG PET PROCEDURES [...] Dose Rate Site fludeoxyglucose F-18 (FDG) injection 12.68 millicurie 12.68 millicurie, intravenous, Once in imaging, radiopharmaceutical , Starting on Sun08/08/23 at 0713, For 1 dose Given 08/08/2023 7:04 AM CDT 12.68 millicuries Right Antecubital documented in this encounter Orders Medications Ordered That Rubén ht Not Have Been Administered Count Last Ordered Date First Ordered Date fludeoxyglucose F-18 (FDG) i njection 12.68 millicurie 1 08/08/2023 documented in this encounter Care Teams Manager Animal Relationship Specialty Start Date End Date Jay Argueta MD [address] [place] [address] PCP - General Family Practice 11/29/22 10/07/23 Wilmer Taylor MD [address] [address] Referring Physician Obstetrics and Gynecology 05/09/12 Jeffrey Koch MD [address] [place] [address] Consulting Physician Rheumatology 02/03/21 Luz Lewis MD [address] [place] [address] Referring Physician Surgery 12/14/21 Raleigh Jay MD PhD [address] [place] [address] Radiation Oncologist Radiation Oncology 12/12/22 Ranjan Cazares MD [address] [facility] [id number] [place] [address] Surgeon Thoracic Surgery 12/12/22 documented as of this encounter
--- OUTSIDE RECORDS SUMMARY | 2024-05-03 02:49 | XMS_ITS | Encounter Summary ---
Author Organization [facility] Healthcare Address [address] [place] [address] Care Team Providers Care Diploma Dental Assistant Name Role Phone Wilmer Taylor MD Unavailable [phone] Jeffrey Koch MD Unavailable [phone] Luz Lewis MD Unavailable [phone] Jay Argueta MD Primary Care Provider + [phone] Raleigh Jay MD PhD Unavailable [phone] Ranjan Cazares MD Unavailable [phone] Reason for Referral * MRI/CAT/PET Scan (Routine) - Closed Specialty Diagnoses / Procedures Referred By Contac t Referred To Contact Radiology Diagnoses Malignant neoplasm of upper lobe, right bronchus or lung (HCC) Procedures CT Chest WO Contrast Raleigh Jay MD PhD [address] [place] [address] Phone: tel: fax: [address] [address] Referral ID Status Reason Start Date Expiration Date Visits Re quested Visits Authorized [id number] Closed 01/03/2023 02/02/2024 1 1 TERER [facility]U[place]O Reason for Visit * MRI/CAT/PET Scan (Routine) - Closed Specialty Diagnoses / Procedures Referred By Micah t Referred To Contact Radiology Diagnoses Malignant neoplasm of upper lobe, right bronchus or lung (HCC) Procedures CT Chest WO Contrast Raleigh Jay MD PhD [address] [place] [address] Phone: tel: fax: [address] [phone] Referral ID Status Reason Start Date Expiration Date Visits Re quested Visits Authorized [id number] Closed 01/03/2023 02/02/2024 1 1 Encounter Details Date Type Department Care Team (Latest Contact Info) Description 03/22/2023 9:17 AM PLASTERER STU[place]O - 03/22/2023 11:59 PM PLASTERER [facility] Hospital Encounter [facility] [address] [place] [id number] Malignant neoplasm of upper lobe, right bronchus [...] on file 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 09/14/2021 ascorbic acid (VITAMIN C) 500 mg tablet,chewableI [...] mg total) by mouth daily 11/08/2022 omega 4-ctu-fnx-fish oil 100-160-1,000 mg capsuleIndicatio ns:hypertriglyce ridemia Take 1 capsule by mouth daily after dinner polyethylene glycol (MIRALAX) 17 gram packetIndication s:constipation Take 1 packet (17 g total) by mouth daily 09/15/2021 budesonide-formo teroL (SYMBICORT) 160-4.5 mcg/actuation inhalerIndicatio ns:Bronchospasm Prevention with COPD Inhale 2 puffs 2 (two) times a day 4 folic acid (FOLVITE) 1 mg tabletIndication s:Folate Deficiency Take 1 tablet (1 mg total) by mouth daily after lunch 90 tablet 3 02/12/2023 4 methotrexate 2.5 mg tabletIndication s:Rheumatoid Arthritis Take 5 tablets (12.5 mg total) by mouth every 7 days Every Sunday 60 tablet 1 02/12/2023 4 documented as of this encounter Discharge Disposition Disposition Code Departure Means Destination Discharge to home or self care documented in this encounter Plan of Treatment Not on file documented as of this encounter Procedures Procedure Name Priority Date/Time Associated Diagnosis Comments CT CHEST WO CONTRAST Schedule Routine, Read Routine (OP Routine) 03/22/2023 9:38 AM PLASTERER [facility] Malignant neoplasm of upper lobe, right bronchus or lung (HCC) documented in this encounter Results * CT Chest WO Contrast (03/22/2023 9:38 AM PLASTERER [place]) Anatomical Region Laterality Modality Body N/A Computed Tomogra phy 03/23/2023 9:37 AM PLASTERER [place] Narrative 03/23/2023 9:59 AM PLASTERER STU[place] EXAM DESCRIPTION: ?? CT CHEST WO CONTRAST REASON FOR STUDY: ?? Non-small cell lung cancer (NSCLC), non-metastatic, assess treatment response ?? Follow up lung cancer / right upper lobe removed ??Recently treated with radiation 2 months ago ??for right lower lobe ??Assessing treatment response ?? TECHNIQUE: CT scan of the chest performed without intravenous contrast using helical scanning technique. Reconstructed coronal and sagittal MPR images reviewed. ??All images stored on PACS. ??Automated exposure control was used as a dose optimization technique for this examination. COMPARISON: ?? PET-CT 11/07/2022; CT chest 10/30/2022 REFERENCE: Per ACR white paper recommendations, unless otherwise specified no follow-up imaging is recommended for incidental renal and adrenal lesions per consensus recommendations based on imaging criteria. Further lab evaluation could be pursued based on clinical findings. FINDINGS: The sensitivity for detection of solid visceral lesions is diminished without the use of intravenous contrast. LUNGS: ?? There are changes from a right upper lobectomy. ??There are moderate emphysematous changes throughout the lungs, similar to the reference examinations. ??There is bibasilar subsegmental atelectasis there has been mild progression of fibrotic changes in the lung bases. ??There is a new area of ground-glass opacity in the left upper lobe measuring 2.4 cm . ??Uncertain if this is due to infectious or inflammatory change. Previously noted intensely hypermetabolic nodule in the right cardiophrenic angle region is difficult to measure but appears to have slightly decreased in size and measures 12 mm today, previously 15 mm. New 3 mm nodule in the left upper lobe on image 33. PLEURA: ?? There is a small right-sided pleural effusion. ??There is no pneumothorax. ?? There is unchanged calcification along the pleura in the right lung, medially in the region of the right hilum and posterior mediastinum. MEDIASTINUM/OLGA: ?? There is difficulty in evaluating mediastinal and hilar lymph nodes due to lack of IV contrast and the patient's body habitus. ??There remains fullness in the right hilar region, suspicious for persistent lymphadenopathy as previously described on the PET-CT. ??An AP window lymph node remains enlarged measuring 17 mm in short axis, unchanged. HEART: ?? Heart size is normal with no pericardial effusion. CORONARY ARTERY CALCIFICATION: ??Trace coronary artery calcifications. VASCULATURE: ?? No thoracic aortic aneurysm. ?? Moderate calcified plaque in the aorta. AXILLA: ?? No adenopathy. CHEST WALL: ?? No masses. ??No subcutaneous air. HARDWARE/LINES/TUBES: ?? None. UPPER ABDOMEN: ?? No significant abnormality. MUSCULOSKELETAL: ?? No suspicious osseous lesions. ??There are degenerative changes throughout the thoracic spine. OTHER: ?? No other significant abnormality. IMPRESSION: Previously described hypermetabolic nodule in the right cardiophrenic angle region is difficult to measure but appears to have slightly decreased in size measuring approximately 12 mm today. New 3 mm nodule in the left upper lobe. New small right-sided pleural effusion. Progression of mild fibrotic changes in the lung bases. New area of ground-glass opacity in the left upper lobe which could be due to infectious or inflammatory change. ??Recommend attention on follow-up. Mediastinal lymphadenopathy is difficult to evaluate without IV contrast but appear similar to the reference exams. THIS IS AN ELECTRONICALLY VERIFIED FINAL REPORT 03/23/2023 9:59 AM - Electronically signed by ??Kaden Cox M.D. AM: AM D: ??03/23/2023 9:59 AM T: ??03/23/2023 9:59 AM Report ID: [id number] Reading Location: ??[id number] Procedure Note Kaden Cox MD - 03/23/2023 EXAM DESCRIPTION: CT CHEST WO CONTRAST REASON FOR STUDY: Non-small cell lung cancer (NSCLC), non-metastatic,assess treatment response Follow up lung cancer / right upper lobe removed Recently treated with radiation 2 months ago for right lower lobe Assessing treatment response TECHNIQUE: CT scan of the chest performed without intravenous contrastusing helical scanning technique. Reconstructed coronal and sagittal MPR images reviewed. All images stored on PACS. Automated exposure control was usedas a dose optimization technique for this examination. COMPARISON: PET-CT 11/07/2022; CT chest 10/30/2022 REFERENCE: Per ACR white paper recommendations, unless otherwise specifiedno follow-up imaging is recommended for incidental renal and adrenal lesionsper consensus recommendations based on imaging criteria. Further labevaluation could be pursued based on clinical findings. FINDINGS: The sensitivity for detection of solid visceral lesions is diminishedwithout the use of intravenous contrast. LUNGS: There are changes from a right upper lobectomy. There aremoderate emphysematous changes throughout the lungs, similar to the reference examinations. There is bibasilar subsegmental atelectasis there has beenmild progression of fibrotic changes in the lung bases. There is a new area of ground-glass opacity in the left upper lobe measuring 2.4 cm . Uncertainif this is due to infectious or inflammatory change. Previously noted intensely hypermetabolic nodule in the rightcardiophrenic angle region is difficult to measure but appears to have slightlydecreased in size and measures 12 mm today, previously 15 mm. New 3 mm nodule in the left upper lobe on image 33. PLEURA: There is a small right-sided pleural effusion. There is no pneumothorax. There is unchanged calcification along the pleura in theright lung, medially in the region of the right hilum and posterior mediastinum. MEDIASTINUM/OLGA: There is difficulty in evaluating mediastinal andhilar lymph nodes due to lack of IV contrast and the patient's body habitus.There remains fullness in the right hilar region, suspicious for persistent lymphadenopathy as previously described on the PET-CT. An AP window lymph node remains enlarged measuring 17 mm in short axis, unchanged. HEART: Heart size is normal with no pericardial effusion. CORONARY ARTERY CALCIFICATION: Trace coronary artery calcifications. VASCULATURE: No thoracic aortic aneurysm. Moderate calcified plaque inthe aorta. AXILLA: No adenopathy. CHEST WALL: No masses. No subcutaneous air. HARDWARE/LINES/TUBES: None. UPPER ABDOMEN: No significant abnormality. MUSCULOSKELETAL: No suspicious osseous lesions. There are degenerative changes throughout the thoracic spine. OTHER: No other significant abnormality. IMPRESSION: Previously described hypermetabolic nodule in the right cardiophrenicangle region is difficult to measure but appears to have slightly decreased insize measuring approximately 12 mm today. New 3 mm nodule in the left upper lobe. New small right-sided pleural effusion. Progression of mild fibrotic changes in the lung bases. New area of ground-glass opacity in the left upper lobe which could bedue to infectious or inflammatory change. Recommend attention on follow-up. Mediastinal lymphadenopathy is difficult to evaluate without IV contrastbut appear similar to the reference exams. THIS IS AN ELECTRONICALLY VERIFIED FINAL REPORT 03/23/2023 9:59 AM - Electronically signed by Kaden Cox M.D. AM: AM Report ID: [id number] Reading Location: [place] [address] Raleigh Jay MD PhD IMG CT PROCEDURES Lupe l Result documented in this encounter Visit Diagnoses Diagnosis Malignant neoplasm of upper lobe, right bronchus or lung (HCC) documented in this encounter Care Teams Diploma Dental Assistant Relationship Specialty Start Date End Date Jay Argueta MD [address] [place] [address] PCP - General Family Practice 11/29/22 10/07/23 Wilmer Taylor MD [address] [place] [address] Referring Physician Obstetrics and Gynecology 05/09/12 Jeffrey Koch MD [address] [place] [address] Consulting Physician Rheumatology 02/03/21 Luz Lewis MD [address] [place] [address] Referring Physician Surgery 12/14/21 Raleigh Jay MD PhD [address] [place] [address] Radiation Oncologist Radiation Oncology 12/12/22 Ranjan Cazares MD [address] [facility] [address] [place] [address] Surgeon Thoracic Surgery 12/12/22 documented as of this encounter
--- OUTSIDE RECORDS SUMMARY | 2024-05-03 02:49 | XMS_ITS | Encounter Summary ---
Author Organization [facility] Healthcare Address [address] [place] [address] Care Team Providers Care Senior Mechanical Project Manager Name Role Phone Wilmer Taylor MD Unavailable [phone] Jeffrey Koch MD Unavailable [phone] Luz Lewis MD Unavailable [phone] Jay Argueta MD Primary Care Provider [phone] Raleigh Jay MD PhD Unavailable + [phone] Ranjan Cazares MD Unavailable [phone] Encounter Details Date Type Department Care Team (Late st Contact Info) Description 08/15/2023 10:05 AM CDT Treatment [facility] Radiation Oncology [address] [place] [id number] Social History Tobacco Use Types Packs/Day Years [...] on file Legal Sex Female 10:10 AM POLE FRAMER Gender Identity Not on file Sexual Orientation Not on file documented as of this encounter Plan of Treatment Not on file documented as of this encounter Visit Diagnoses Not on filedocumented in this encounter Care Teams Senior Mechanical Project Manager Relationship Specialty Start Date End Date Jay Argueta MD [address] [place] [address] PCP - General Family Practice 11/29/22 10/07/23 Wilmer Taylor MD [address] [facility] [address] [place] [address] Referring Physician Obstetrics and Gynecology 05/09/12 Jeffrey Koch MD [address] [place] [address] Consulting Physician Rheumatology 02/03/21 Luz Lewis MD [address] [place] [address] Referring Physician Surgery 12/14/21 Raleigh Jay MD PhD [address] [place] [address] Radiation Oncologist Radiation Oncology 12/12/22 Ranjan Cazares MD [address] [facility] [address] [place] [address] Surgeon Thoracic Surgery 12/12/22 documented as of this encounter
--- OUTSIDE RECORDS SUMMARY | 2024-05-03 02:49 | XMS_ITS | Encounter Summary ---
Author Organization [facility] Healthcare Address [address] [place] [address] Care Team Providers Care Spinning Supervisor Name Role Phone Wilmer Taylor MD Unavailable [phone] Jeffrey Koch MD Unavailable [phone] Luz Lewis MD Unavailable [phone] Jay Argueta MD Primary Care Provider + [phone] Raleigh Jay MD PhD Unavailable + [phone] Ranjan Cazares MD Unavailable [phone] Reason for Referral * MRI/CAT/PET Scan (Routine) - Closed Specialty Diagnoses / Procedures Referred By Contac t Referred To Contact Radiology Diagnoses Malignant neoplasm of upper lobe, right bronchus or lung (HCC) Procedures CT Chest WO Contrast Raleigh Jay MD PhD [address] [place] [address] Phone: tel: fax: [address] [phone] Referral ID Status Reason Start Date Expiration Date Visits Re quested Visits Authorized [id number] Closed 04/12/2023 05/11/2024 1 1 EATION CENTER DIRECTOR Reason for Visit * Reason Comments Follow-up * Consultation (Routine) - Canceled Specialty Diagnoses / Procedures Referred By Contac t Referred To Contact Radiation Oncology Diagnoses Malignant neoplasm of upper lobe, right bronchus or lung (HCC) Raleigh Jay MD PhD [address] [place] [address] Phone: tel: fax: Ralegih Jay MD PhD [address] [place] [address] Phone: tel: fax: Referral ID Status Reason Start Date Expiration Date V isits Requested Visits Authorized [id number] Canceled Continuity of Care 03/29/2023 03/29/2024 99 99 Encounter Details Date Type Department Care Team (Late st Contact Info) Description 04/12/2023 9:30 AM RECREATION CENTER DIRECTOR Office Visit [facility] Radiation Oncology [address] [place] [address] Raleigh Jay MD PhD [address] [place] [id number] Malignant neoplasm of upper lobe, right bronchus or lung (HCC) Social History Tobacco Use Types Packs/Day Years Used Date Smoking Tobacco: Former Cigarettes 0.3 50 1 969 - 2015 Smokeless Tobacco: Never Tobacco Cessation:Counseling Given: No Alcohol Use Standard Drinks/Week Comments Never 0 [...] on file Legal Sex Female 10:10 AM RECREATION CENTER DIRECTOR Gender Identity Not on file Sexual Orientation Not on file documented as of this encounter Last Filed Vital Signs Vital Sign Reading Time Taken Comments Blood Pressure 151/76 04/12/2023 9:30 AM RECREATION CENTER DIRECTOR Pulse 88 04/12/2023 9:30 AM RECREATION CENTER DIRECTOR Temperature 36.6 ??C (97.8 ??F) 04/12/2023 9:30 AM CS T Respiratory Rate 20 04/12/2023 9:30 AM RECREATION CENTER DIRECTOR Oxygen Saturation 95% 04/12/2023 9:30 AM RECREATION CENTER DIRECTOR Inhaled Oxygen Concentration - - Weight 64.5 kg (142 lb 3.2 oz) 04/12/2023 9:30 A M RECREATION CENTER DIRECTOR Height - - Body Mass Index 24.41 02/12/2023 10:02 AM CDT documented in this encounter Progress Notes * Raleigh Jay MD PhD - 04/12/2023 9:30 AM CST Staff Physician: Raleigh Jay MD PhD Referring Physician: Patient Care Team: Wilmer Taylor MD as Referring Physician (Obstetrics and Gynecology) Luz Lewis MD as Referring Physician (Surgery) Date of Service: 04/12/2023 RADIATION ONCOLOGY FOLLOW UP NOTE IDENTIFYING DATA: Cancer Staging Malignant neoplasm of lower lobe, right bronchus or lung (HCC) Staging form: Lung, AJCC 8th Edition - Clinical stage from 12/12/2022: Stage IA2 (cT1b, cN0, cM0) - Signed by Raleigh Jay MD PhD on 12/12/2022 Malignant neoplasm of upper lobe, right bronchus or lung (HCC) Staging form: Lung, AJCC 8th Edition - Pathologic stage from 09/12/2021: Stage IA2 (pT1b, pN0, cM0) - Signed by Raleigh Jay MD PhD on 12/12/2022 Treatment Intent: enoc Guillory is a 72 y.o. 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 This is her1st follow-up since completing radiation therapy. INTERVAL HISTORY: Since completing radiation therapy, the patient has generally been doing well with regard to 3 function. She reports stable baseline shortness of breath. She denies any new cough or hemoptysis. She does state that she has since established care with a routing clerk and after a number of test determine that the patient would benefit from supplemental oxygen. She states that she is on 2 L in the evening and 3 L during the day with activity but she can do normal, nonstrenuous activities during theday without supplemental O2. Generally speaking, however, she does not report any subjective changes in her respiratory function from before to after starting supplemental oxygen. She does occasionall y report some episodes of lightheadedness. She denies any dysphagia or odynophagia. She denies any headache, nausea, vomiting, vision changes, or any focal numbness or weakness. She denies any new bony pain or any pain otherwise (0/10). Her 1st post treatment CT of the chest on 03/22/2023 showed her previously treated right lower lobe nodule slightly decreased in size. Upon review by myself, it appears to have had a more significant change in size then noted, though there is some increased surrounding posttreatment changes that do make exact measurements somewhat complicated. There was a new small right pleural effusion noted which is likely related to her treatment. Also noted was a new 3 mm nodule in the left upper lobe, though when reviewed by myself there was some surrounding fibrosissuggesting that this may be more consequence of local infection/inflammation. There was no evidenceof any new lymphadenopathy. Aside from interval follow-up with pulmonology, she denies any additional changes to her medical history. PREVIOUS RADIATION: 5500 cGy in 5 fractions with SBRT to the right lower lobe completed on 01/05/2023. ALLERGIES: Allergies Allergen Reactions Omeprazole Rash Amoxicillin Diarrhea Motrin [Ibuprofen] Other [...] hematologic/lymphatic, or immunologic systems. PHYSICAL EXAMINATION: BP 151/76 Pulse 88 Temp 36.6 ??C (97.8 ??F) Resp 20 Wt 64.5 kg (142 lb 3.2 oz) SpO2 95% BMI 24.41 kg/m?? Pain Score and Location 04/12/23 0930 PainSc: 0-No pain ECOG Performance: 1 Physical [...] pathology values ASSESSMENT: Loida Guillory is a 72 y.o.female with a prior history of a [...] SBRT to 5500 cGy completed on 01/05/2023. While she did establish care with pulmonology in the interim and was started on supplemental oxygen, she states that her respiratory function overall is stable and she has no clear clinical or radiographic evidence of disease progression at this time. Specifically, we discussed that the left upper lobe findingsnoted on the radiology report are not particularly convincing to me especially given the slight adjacent as well as more medial areas fibrosis. Furthermore, that small, there would be no option for further assessment at this point as it is below the resolution for PET and be very difficult to biopsy and so I would favor short-term follow-up imaging which we will be doing otherwise for surveillance her right lower lobe cancer. The patient and her daughter asked appropriate questions and expressed understanding and were in agreement with the overall plan. PLAN: Return to clinic in 3 months with a repeat CT of the chest at that time. Continue close follow up with her other healthcare providers. RAD ONC PAIN PLAN: The patient is not currently having any pain that requires changes in pain management. DISEASE STATUS/TOXICITY: Disease Status: Controlled New metachronous cancer?: No EATION CENTER DIRECTOR documented in this encounter Nursing Notes * Daniel Campbell RN - 04/12/2023 9:30 AM CST Patient here for a follow up. She states she now has as needed oxygen for activity. She denies any pain. EATION CENTER DIRECTOR documented in this encounter Plan of Treatment Not on file documented as of this encounter Results * CT Chest WO Contrast (07/13/2023 10:24 AM CDT) Anatomical Region Laterality Modality Body N/A Computed Tomogra phy 07/17/2023 3:16 AM CDT Narrative 07/17/2023 3:28 AM CDT EXAM DESCRIPTION: ?? CT CHEST WO CONTRAST REASON FOR STUDY: ?? Non-small cell lung cancer (NSCLC), non-metastatic, assess treatment response ?? F/u lung cancer diagnosed in 2021 ??Treated with radiation and surgery ?? No chest complaints at this time ? TECHNIQUE: CT scan of the chest performed without intravenous contrast using helical scanning technique. Reconstructed coronal and sagittal MPR images reviewed. ??All images stored on PACS. ??Automated mA/kV exposure control was utilized as a dose optimization technique for this examination, performed in strict accordance with principles of ALARA. COMPARISON: ?? Comparison is made to multiple previous studies, the most recent a CT of the chest dated March 22, 2023. REFERENCE: Per ACR white paper recommendations, unless otherwise specified no follow-up imaging is recommended for incidental renal and adrenal lesions per consensus recommendations based on imaging criteria. Further lab evaluation could be pursued based on clinical findings. FINDINGS: The sensitivity for detection of solid visceral lesions is diminished without the use of intravenous contrast. NECK BASE: ??Unremarkable on this non-contrast CT. HARDWARE/LINES/TUBES: ?? None. LYMPH NODES: ??No axillary, mediastinal or hilar lymphadenopathy is seen by CT size criteria, though evaluation is limited secondary to lack of IV contrast and the patient's body habitus. ?? There are calcified nodes. MEDIASTINUM/OLGA: ??There is shift of the mediastinum to the patient's right related to postsurgical volume loss of the right lung. ?There is moderate atherosclerosis of the aorta. ?? There is severe coronary artery calcification. ??Heart size is normal. ?? There is no significant pericardial effusion. ? PLEURA: ??There is a small right pleural effusion, unchanged from previous. LUNGS: ??There is mild biapical pulmonary parenchymal scarring. ??The patient is status post right upper lobectomy with volume loss in the right hemithorax. ?? There is emphysema through out the lungs bilaterally. ??There is peripheral honeycombing and consolidation at the right lung base, not significantly changed from previous study. ??The nodularity seen at the right lung base on previous study is not clearly visualized on today's exam. ??There is a 12 x 11 mm nodule along the left side of the mediastinum within the left upper lobe, significantly increased in size as compared to previous study (previously measuring 7 x 6 mm). ??The area of ground-glass opacity seen in the left upper lobe on previous study has improved and appears less dense on the current exam. ??There is stable honeycombing at the left lung base with superimposed atelectasis. ?The central airways are normal. CHEST WALL/BREAST: ??Unremarkable. MUSCULOSKELETAL: ??There is diffuse degenerative change of the thoracic spine. ?? There is no acute abnormality. ? UPPER ABDOMEN: ??No significant abnormality. ? OTHER: ??No other significant abnormality. IMPRESSION: Status post right upper lobectomy with volume loss in the right hemithorax and shift of the mediastinum to the patient's right. 12 x 11 mm nodule along the left side of the mediastinum within the left upper lobe, significantly increased in size as compared to previous study (previously measuring 7 x 6 mm). This is concerning for malignancy. PET-CT may be helpful for further evaluation. Emphysema. Stable honeycombing and consolidation at the lung bases bilaterally. Area of ground-glass opacity within the left upper lobe nearly completely resolved and right cardiophrenic nodule not clearly identified on this exam. Small right pleural effusion, unchanged from previous. Severe coronary artery calcification. Moderate atherosclerosis of the aorta. Degenerative change of the thoracic spine. THIS IS AN ELECTRONICALLY VERIFIED FINAL REPORT 07/17/2023 3:28 AM - Electronically signed by ??Maria A Thompson M.D. SN: SN D: ??07/17/2023 3:28 AM T: ??07/17/2023 3:28 AM Report ID: [id number] Reading Location: ??[id number] Procedure Note Maria A Thompson MD - 07/17/2023 EXAM DESCRIPTION: CT CHEST WO CONTRAST REASON FOR STUDY: Non-small cell lung cancer (NSCLC), non-metastatic,assess treatment response F/u lung cancer diagnosed in 2021 Treated with radiation and surgery No chest complaints at this time TECHNIQUE: CT scan of the chest performed without intravenous contrastusing helical scanning technique. Reconstructed coronal and sagittal MPR images reviewed. All images stored on PACS. Automated mA/kV exposure controlwas utilized as a dose optimization technique for this examination, performedin strict accordance with principles of ALARA. COMPARISON: Comparison is made to multiple previous studies, the mostrecent a CT of the chest dated March 22, 2023. REFERENCE: Per ACR white paper recommendations, unless otherwise specifiedno follow-up imaging is recommended for incidental renal and adrenal lesionsper consensus recommendations based on imaging criteria. Further labevaluation could be pursued based on clinical findings. FINDINGS: The sensitivity for detection of solid visceral lesions is diminishedwithout the use of intravenous contrast. NECK BASE: Unremarkable on this non-contrast CT. HARDWARE/LINES/TUBES: None. LYMPH NODES: No axillary, mediastinal or hilar lymphadenopathy is seen byCT size criteria, though evaluation is limited secondary to lack of IVcontrast and the patient's body habitus. There are calcified nodes. MEDIASTINUM/OLGA: There is shift of the mediastinum to the patient'sright related to postsurgical volume loss of the right lung. There ismoderate atherosclerosis of the aorta. There is severe coronary arterycalcification. Heart size is normal. There is no significant pericardial effusion. PLEURA: There is a small right pleural effusion, unchanged from previous. LUNGS: There is mild biapical pulmonary parenchymal scarring. Thepatient is status post right upper lobectomy with volume loss in the righthemithorax. There is emphysema through out the lungs bilaterally. There is peripheral honeycombing and consolidation at the right lung base, not significantly changed from previous study. The nodularity seen at the right lung baseon previous study is not clearly visualized on today's exam. There is a 12 x11 mm nodule along the left side of the mediastinum within the left upperlobe, significantly increased in size as compared to previous study (previously measuring 7 x 6 mm). The area of ground-glass opacity seen in the leftupper lobe on previous study has improved and appears less dense on the current exam. There is stable honeycombing at the left lung base withsuperimposed atelectasis. The central airways are normal. CHEST WALL/BREAST: Unremarkable. MUSCULOSKELETAL: There is diffuse degenerative change of the thoracicspine. There is no acute abnormality. UPPER ABDOMEN: No significant abnormality. OTHER: No other significant abnormality. IMPRESSION: Status post right upper lobectomy with volume loss in the righthemithorax and shift of the mediastinum to the patient's right. 12 x 11 mm nodule along the left side of the mediastinum within the left upper lobe, significantly increased in size as compared to previous study (previously measuring 7 x 6 mm). This is concerning for malignancy. PET-CTmay be helpful for further evaluation. Emphysema. Stable honeycombing and consolidation at the lung bases bilaterally. Area of ground-glass opacity within the left upper lobe nearly completely resolved and right cardiophrenic nodule not clearly identified on thisexam. Small right pleural effusion, unchanged from previous. Severe coronary artery calcification. Moderate atherosclerosis of the aorta. Degenerative change of the thoracic spine. THIS IS AN ELECTRONICALLY VERIFIED FINAL REPORT 07/17/2023 3:28 AM - Electronically signed by Maria A Thompson M.D. SN: SN Dowd: 07/17/2023 3:28 AM Report ID: [id number] Reading Location: [id number] Raleigh Jay MD PhD IMG CT PROCEDURES Lupe l Result documented in this encounter Visit Diagnoses Diagnosis Malignant neoplasm of upper lobe, right bronchus or lung (HCC) Malignant neoplasm of upper lobe, right bronchus or lung (HCC) documented in this encounter Orders Outpatient Referral Count Last Ordered Date Fir st Ordered Date AMB REFERRAL TO RADIATION ONCOLOGY 1 2022 documented in this encounter Care Teams Spinning Supervisor Relationship Specialty Start Date End Date Jay Argueta MD [address] [place] [address] PCP - General Family Practice 11/29/22 10/07/23 Wilmer Taylor MD 1011 [facility] [address] [place], [place] [id number] Referring Physician Obstetrics and Gynecology 05/09/12 Jeffrey Koch MD [address] [place] [address] Consulting Physician Rheumatology 02/03/21 Luz Lewis MD [address] [place] [address] Referring Physician Surgery 12/14/21 Raleigh Jay MD PhD [address] [place] [address] Radiation Oncologist Radiation Oncology 12/12/22 Ranjan Cazares MD [address] [facility] [address] [place] [address] Surgeon Thoracic Surgery 12/12/22 documented as of this encounter
--- OUTSIDE RECORDS SUMMARY | 2024-05-03 02:49 | XMS_ITS | Encounter Summary ---
Author Organization [facility] Healthcare Address [address] [place] [address] Care Team Providers Care Senior Mechanical Estimator Name Role Phone Wilmer Taylor MD Unavailable [phone] Jeffrey Koch MD Unavailable [phone] Luz Lewis MD Unavailable [phone] Jay Argueta MD Primary Care Provider [phone] Raleigh Jay MD PhD Unavailable [phone] Ranjan Cazares MD Unavailable [phone] Encounter Details Date Type Department Care Team (Late st Contact Info) Description 03/21/2023 Telephone [facility] [address] [place] [id number] Maribel Mustafa, RT Social History Tobacco Use Types Packs/Day Years [...] on file Legal Sex Female 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 Gender Identity Not on file Sexual Orientation Not on file documented as of this encounter Miscellaneous Notes * Telephone Encounter - Maribel Mustafa RT - 03/21/2023 10:21 AM CST Appointment confirmed at 1021 LING PLANT OPERATOR documented in this encounter Plan of Treatment Not on file documented as of this encounter Visit Diagnoses Not on filedocumented in this encounter Care Teams Senior Mechanical Estimator Relationship Specialty Start Date End Date Jay Argueta MD [address] [place] [address] PCP - General Family Practice 11/29/22 10/07/23 Wilmer Taylor MD [address] [address] Referring Physician Obstetrics and Gynecology 05/09/12 Jeffrey Koch MD [address] [place] [address] Consulting Physician Rheumatology 02/03/21 Luz Lewis MD [address] [place] [address] Referring Physician Surgery 12/14/21 Raleigh Jay MD PhD [address] [place] [address] Radiation Oncologist Radiation Oncology 12/12/22 Ranjan Cazares MD [address] [facility] [address] [place] [address] Surgeon Thoracic Surgery 12/12/22 documented as of this encounter
--- OUTSIDE RECORDS SUMMARY | 2024-05-03 02:49 | XMS_ITS | Encounter Summary ---
Author Organization [facility] Healthcare Address [address] [place] [address] Care Team Providers Care Beam Worker Name Role Phone Wilmer Taylor MD Unavailable [phone] Jeffrey Koch MD Unavailable [phone] Luz Lewis MD Unavailable [phone] Jay Argueta MD Primary Care Provider [phone] Raleigh Jay MD PhD Unavailable [phone] Ranjan Cazares MD Unavailable [phone] Encounter Details Date Type Department Care Team (Late st Contact Info) Description 01/05/2023 Completion of Therapy [facility] Radiation Oncology [address] [place] [id number] Raleigh Jay MD PhD [address] [place] [address] Malignant neoplasm of upper lobe, right bronchus or lung (HCC) (Primary Dx) Social History Tobacco Use Types Packs/Day Years [...] on file Legal 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 provider found Date of Service: 01/05/2023 RADIATION ONCOLOGY COMPLETION OF THERAPY (COT) Identifying [...] PhD on 12/12/2022 Loida Guillory is a 72 y.o. 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 Treatment Delivered: Start Date: 01/01/2023 End Date: 01/05/2023 Radiation Treatments Active Plans SBRT RLL LUNG Most recent treatment: Dose planned: 1,100 cGy (fraction 5 on 01/05/2023) Total: Dose planned: 5,500 cGy Elapsed Days: 4 Reference Points [id number] Most recent treatment: Dose given: 1,100 cGy (on 01/05/2023) Total: Dose given: 5,500 cGy Elapsed Days: [...] lobe, right bronchus or lung (HCC)- Primary documented in this encounter Care Teams Beam Worker Relationship Specialty Start Date End Date Jay Argueta MD [address] [place] [address] PCP - General Family Practice 11/29/22 10/07/23 Wilmer Taylor MD [address] [address] Referring Physician Obstetrics and Gynecology 05/09/12 Jeffrey Koch MD [address] [place] [address] Consulting Physician Rheumatology 02/03/21 Luz Lewis MD [address] [place] [address] Referring Physician Surgery 12/14/21 Raleigh Jay MD PhD [address] [facility] [place] [address] Radiation Oncologist Radiation Oncology 12/12/22 Ranjan Cazares MD [address] [facility] [address] [place] [address] Surgeon Thoracic Surgery 12/12/22 documented as of this encounter
--- OUTSIDE RECORDS SUMMARY | 2024-05-03 02:49 | XMS_ITS | Encounter Summary ---
Author Organization [facility] Healthcare Address [address] [place] [address] Care Team Providers Care Power Tool Repairer Name Role Phone Wilmer Taylor MD Unavailable [phone] Jeffrey Koch MD Unavailable [phone] Luz Lewis MD Unavailable [phone] Jay Argueta MD Primary Care Provider [phone] Raleigh Jay MD PhD Unavailable [phone] Ranjan Cazares MD Unavailable [phone] Encounter Details Date Type Department Care Team (Late st Contact Info) Description 01/04/2023 Orders Only RAD ONC TREATMENTS Miscellaneous, Not [...] file Legal Sex Female 10: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 MANAGER 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 Gender Identity Not on file Sexual Orientation Not on file documented as of this encounter Plan of Treatment Not on file documented as of this encounter Procedures Procedure Name Priority Date/Time Associated Diagnosis Comments RAD ONC ARIA SESSION SUMMARY 01/04/2023 10:06 AM CDT documented in this encounter Results * RAD ONC ARIA SESSION SUMMARY (01/04/2023 10:06 AM CDT) Course Name [id number] ARIA Course Plan Date 12/20/2022 12:55 PM ARIA Elapsed Days 3 ARIA Treatment Start Date 01/01/2023 ARIA Treatment Site [id number] ARIA Dose Given To Date (cGy) 4,400 ARIA Session Dosage Given (cGy) 1,100 ARIA Plan ID SBRT RLL LUNG ARIA Fractions Treated 4 ARIA Prescribed Dose Per Fraction (cGy) 1,100 ARIA Prescribed Total Dose (cGy) 5,500 ARIA 01/04/2023 10:0 6 AM CDT us Not In File Miscellaneous RADIATION ONCOLOGY ORD ERABLES Final Result ARIA documented in this encounter Visit Diagnoses Not on filedocumented in this encounter Care Teams Power Tool Repairer Relationship Specialty Start Date End Date Jay Argueta MD [address] [place] [address] PCP - General Family Practice 11/29/22 10/07/23 Wilmer Taylor MD [address] [facility] [address] [place] [address] Referring Physician Obstetrics and Gynecology 05/09/12 Jeffrey Koch MD [address] [place] [address] Consulting Physician Rheumatology 02/03/21 Luz Lewis MD [address] [place] [address] Referring Physician Surgery 12/14/21 Raleigh Jay MD PhD [address] [place] [address] Radiation Oncologist Radiation Oncology 12/12/22 Ranjan Cazares MD [address] [facility] [address] [place] [address] Surgeon Thoracic Surgery 12/12/22 documented as of this encounter
--- OUTSIDE RECORDS SUMMARY | 2024-05-03 02:49 | XMS_ITS | Encounter Summary ---
Author Organization [facility] Healthcare Address [address] [place] [address] Care Team Providers Care Assistant Art Director Name Role Phone Wilmer Taylor MD Unavailable [phone] Jeffrey Koch MD Unavailable [phone] Luz Lewis MD Unavailable [phone] Jay Argueta MD Primary Care Provider [phone] Ralegih Jay MD PhD Unavailable [phone] Ranjan Cazares MD Unavailable [phone] Encounter Details Date Type Department Care Team (Late st Contact Info) Description 01/05/2023 10:00 AM CDT Treatment [facility] Radiation Oncology [address] [place] [id number] Raleigh Jay MD PhD [address] [place] [address] Social History Tobacco Use Types Packs/Day Years [...] on file 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 Gender Identity Not on file Sexual Orientation Not on file documented as of this encounter Plan of Treatment Not on file documented as of this encounter Visit Diagnoses Not on filedocumented in this encounter Care Teams Assistant Art Director Relationship Specialty Start Date End Date Jay Argueta MD [address] [place] [address] PCP - General Family Practice 11/29/22 10/07/23 Wilmer Taylor MD [facility] [address] Referring Physician Obstetrics and Gynecology 05/09/12 Jeffrey Koch MD [address] [place] [address] Consulting Physician Rheumatology 02/03/21 Luz Lewis MD [address] [place] [address] Referring Physician Surgery 12/14/21 Raleigh Jay MD PhD [address] [place] [address] Radiation Oncologist Radiation Oncology 12/12/22 Ranjan Cazares MD [address] [facility] [address] [place] [address] Surgeon Thoracic Surgery 12/12/22 documented as of this encounter
--- OUTSIDE RECORDS SUMMARY | 2024-05-03 02:49 | XMS_ITS | Encounter Summary ---
Author Organization [facility] logy Address [address] [place] [id number] Phone Care Team Providers Care Furnace Cleaner Name Role Phone Wilmer Taylor MD Unavailable [phone] Jeffrey Koch MD Unavailable [phone] Luz Lewis MD Unavailable [phone] Jay Argueta MD Primary Care Provider + [phone] Raleigh Jay MD PhD Unavailable [phone] Ranjan Cazares MD Unavailable [phone] Reason for Referral * Diagnostic Imaging (Routine) - Authorized Specialty Diagnoses / Procedures Referred By Contac t Referred To Contact Diagnoses Neck pain Procedures XR Spine Thoracic 2 Views Martina Elizabeth PA [address] [place] [address] Phone: tel: fax: External Order Referral ID Status Reason Start Date Expiration Date V isits Requested Visits Authorized [id number] Authorized 05/21/2023 06/19/2024 1 1 LINE TRIMMER * Diagnostic Imaging (Routine) - Authorized Specialty Diagnoses / Procedures Referred By Micah barajas Referred To Contact Diagnoses Neck pain Procedures XR Spine Cervical 2 or 3 Views Martina Elizabeth PA [address] [place] [address] Phone: tel: fax: External Order Referral ID Status Reason Start Date Expiration Date V isits Requested Visits Authorized [id number] Authorized 05/21/2023 06/19/2024 1 1 LINE TRIMMER Reason for Visit * Consultation (Routine) - Authorized Specialty Diagnoses / Procedures Referred By Micah barajas Referred To Contact Rheumatology Diagnoses Rheumatoid arthritis with rheumatoid factor of multiple sites without organ or systems involvement (HCC) Jay Argueta MD [address] [place] [address] Phone: tel: fax: Jeffrey Koch MD [address] [place] [address] Phone: tel: fax: Referral ID Status Reason Start Date Expiration Date Visits Requested Visits Authorized [id number] Authorized Specialty Services Required 05/17/2023 05/15/2024 12 12 Encounter Details Date Type Department Care Team (Late st Contact Info) Description 05/21/2023 10:15 AM BLUE LINE TRIMMER Office Visit [facility] [address] [place] [phone] Martina Elizabeth PA [address] [place] [address] 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) (Primary Dx); Rheumatoid arthritis with rheumatoid factor of multiple sites without organ or systems involvement (HCC); Neck pain; [facility] current use 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 drug; Musculoskeletal pain Social History Tobacco Use Types Packs/Day Years [...] on file Legal Sex Female 10:10 AM BLUE LINE TRIMMER Gender Identity Not on file Sexual Orientation Not on file documented as of this encounter Last Filed Vital Signs Vital Sign Reading Time Taken Comments Blood Pressure 142/80 05/21/2023 10:08 AM BLUE LINE TRIMMER Pulse 97 05/21/2023 10:08 AM BLUE LINE TRIMMER Temperature - - Respiratory Rate - - Oxygen Saturation 93% 05/21/2023 10:08 AM BLUE LINE TRIMMER Inhaled Oxygen Concentration - - Weight 63.5 kg (140 lb) 05/21/2023 10:08 AM BLUE LINE TRIMMER Height - - Body Mass Index 24.03 02/12/2023 10:02 AM CDT documented in this encounter Progress Notes * Martina Elizabeth PA - 05/21/2023 10:15 AM CST Images from the original note were not included. Subjective/Objective Patient ID: Loida Guillory is a 72 y.o. female. Chief Complaint RA HPI Returns for routine follow up. Hands remain stable. Follows with pulm now. They noted that she is on MTX and told her that this causes lung scarring. Having pain the past few weeks over the right lateral chest wall. Has been taking tylenol 1000mg daily with some benefit but wears off throughout the day. Hx neck pain secondary to DJD and doing HEP. Has not been to formal PT due to expense. Has not seenPM&R or had injections in the spine before. Denies fevers, infections, rashes, mouth sores, cough, dyspnea, n/v. Joint pain today is 2 /10. AM stiffness = few minutes Review of Systems Constitutional: Positive for fatigue. Negative for chills and fever. HENT: Negative for congestion and mouth sores. Respiratory: Negative for cough and shortness of breath. Cardiovascular: Negative for chest pain. Gastrointestinal: Negative for abdominal pain, diarrhea, nausea and vomiting. Musculoskeletal: Positive for arthralgias. Negative for myalgias. Skin: Negative for rash. Vitals: Vitals BP 142/80 Pulse 97 Wt 63.5 kg (140 lb) SpO2 93% BMI 24.03 kg/m?? Body mass index is 24.03 kg/m??. Bold X is a current medication. [...] normal. Musculoskeletal: See cdai. H/B nodes bilaterally. TTP along right lateral chest wall and intercostal muscles. R shoulder: full flexion w/o pain, pain with IR, +empty can test, negative speed's test. Neurological: alert and oriented to person, place, and time. Skin: Skin is warm and dry. No rash noted. Psychiatric: normal mood and affect. speech is normal and behavior is normal. Cognition and memory are normal. Patient Global: 30 mm Provider Global: 30 mm CDAI: 7 In remission: 0-3 Low: 4-10 Moderate: 11-22 High: 23 or > Labs Lab Results Component Value Date WBC 10.9 (H) 02/12/2023 HGB 12.4 02/12/2023 HCT 37.1 02/12/2023 MCV 99.7 02/12/2023 Lab Results Component Value Date GLUCOSE 109 (H) 02/12/2023 CALCIUM 9.3 02/12/2023 SODIUM 142 02/12/2023 POTASSIUM 3.6 02/12/2023 CO2 26 02/12/2023 CHLORIDE 103 02/12/2023 BUNSER 19 02/12/2023 CREATININE 1.03 (H) 02/12/2023 Lab Results Component Value Date ALT 12 02/12/2023 AST 20 02/12/2023 ALKPHOS 61 02/12/2023 BILITOT 0.4 02/12/2023 Lab Results Component Value Date SEDRATE 51 (H) 02/12/2023 Lab Results Component Value Date CRP 28.3 (H) 02/12/2023 Assessment/Plan Diagnoses and all orders for this [...] already present prior to initiating MTX and wasthen discovered or that ILD may be stemming from inflammatory process like RA. Previously discussedTurmeric 1500mg daily in divided doses. Routine labs today. Follow up in 3-4 months. Sooner if needed. Seen with Dr. Koch. Orders: - Comprehensive metabolic panel; Future - CBC with auto differential; Future - Erythrocyte sedimentation rate; Future - CRP (acute phase); Future Rheumatoid arthritis with rheumatoid factor of multiple sites without organ or systems involvement ([facility]) - Ambulatory referral to Rheumatology Neck pain Assessment & Plan: Pain worse with activity and improved with rest. Denies radiating pain. 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 Patient defers PT and worried about NSAIDs with her current medication regimen. Taking tylenol otc prn with some relief. Discussed increasing tylenol to 2tabs BID. Using Voltaren gel otc prn with good relief. Continue home exercises. Consider repeating XR to better evaluate for any progression of degenerative changes. Should pain worsen, consider formal PT vs referral to PM&R. Orders: - XR Spine Cervical 2 or 3 Views; Future - XR Spine Thoracic 2 Views; Future [facility] current use 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 drug Assessment & Plan: Hepatitis negative: 02/2021 Orders: - Comprehensive metabolic panel; Future - CBC with auto differential; Future - Erythrocyte sedimentation rate; Future - CRP (acute phase); Future Musculoskeletal pain Assessment & Plan: Pain overlying right lateral chest wall. TTP along intercostal muscles and serratus anterior. Pain with certain shoulder movements. Pain alleviated with tylenol 1000mg daily until this wears off. Suspect acute muscle pain likely over the intercostals. Discussed PT however she defers due to expense.Will start HEP. Discussed maximizing tylenol to 3g daily and switching tylenol arthritis. Okay to take otc NSAIDs like Aleve 1 tab BID. Martina Elizabeth PA-C Cosigned by Jeffrey Koch MD at 05/23/2023 8:07 AM BLUE LINE TRIMMER LINE TRIMMER LINE TRIMMER documented in this encounter Miscellaneous Notes * Assessment & Plan Note - Martina Elizabeth PA - 05/21/2023 12:22 PM CSTAssociated Problem(s): Musculoskeletal pain Pain overlying right lateral chest wall. TTP along intercostal muscles and serratus anterior. Pain with certain shoulder movements. Pain alleviated with tylenol 1000mg daily until this wears off. Suspect acute muscle pain likely over the intercostals. Discussed PT however she defers due to expense.Will start HEP. Discussed maximizing tylenol to 3g daily and switching tylenol arthritis. Okay to take otc NSAIDs like Aleve 1 tab BID. LINE TRIMMER LINE TRIMMER * Assessment & Plan Note - Martina Elizabeth PA - 05/21/2023 12:11 PM CSTAssociated Problem(s): Rheumatoid arthritis involving both hands with [...] already present prior to initiating MTX and wasthen discovered or that ILD may be stemming from inflammatory process like RA. Previously discussedTurmeric 1500mg daily in divided doses. Routine labs today. Follow up in 3-4 months. Sooner if needed. Seen with Dr. Koch. LINE TRIMMER LINE TRIMMER * Assessment & Plan Note - Martina Elizabeth PA - 05/21/2023 10:13 AM CSTAssociated Problem(s): Neck pain Pain worse with activity and improved with rest. Denies radiating pain. 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 Patient defers PT and worried about NSAIDs with her current medication regimen. Taking tylenol otc prn with some relief. Discussed increasing tylenol to 2tabs BID. Using Voltaren gel otc prn with good relief. Continue home exercises. Consider repeating XR to better evaluate for any progression of degenerative changes. Should pain worsen, consider formal PT vs referral to PM&R. LINE TRIMMER LINE TRIMMER * Assessment & Plan Note - Martina Elizabeth PA - 05/21/2023 10:12 AM CSTAssociated Problem(s): termite treater helper current use 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 drug Hepatitis negative: 02/2021 LINE TRIMMER documented in this encounter Plan of Treatment Scheduled Orders Name Type Priority Associated Diagnoses Orde r Schedule XR Spine Cervical 2 or 3 Views Imaging Schedule Routine, Read Routine (OP Routine) Neck pain Expected: 05/21/2023, Expires: 05/21/2024 XR Spine Thoracic 2 Views Imaging Schedule Routine, Read Routine (OP Routine) Neck pain Expected: 05/21/2023, Expires: 05/21/2024 documented as of this encounter Procedures Procedure Name Priority Date/Time Associated Diagnosis Comments CBC WITH AUTO DIFFERENTIAL Routine 05/21/2023 11:16 AM BLUE LINE TRIMMER 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) termite treater helper current use 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 drug ERYTHROCYTE SEDIMENTATION RATE Routine 05/21/2023 11:16 AM BLUE LINE TRIMMER 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) termite treater helper current use 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 drug CRP (ACUTE PHASE) Routine 05/21/2023 11: 16 AM BLUE LINE TRIMMER 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) [facility] current use 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 drug COMPREHENSIVE METABOLIC PANEL Routine 05/21/2023 11:16 AM BLUE LINE TRIMMER 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) termite treater helper current use 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 drug documented in this encounter Results * (ABNORMAL) CRP (acute phase) (05/21/2023 11:16 AM BLUE LINE TRIMMER) C-RP 26.5(H) <8.0 mg/L [facility] Blood 05/21/2023 11:1 6 AM BLUE LINE TRIMMER 05/21/2023 11:16 AM BLUE LINE TRIMMER us Martina JONES LAB BLOOD ORDERABLES Final Result [facility] [address] [place] [address] * (ABNORMAL) Erythrocyte sedimentation rate (05/21/2023 11:16 AM BLUE LINE TRIMMER) Pathologist [facility] Erythrocyte sedimentation rate 38(H) < OR = 30 mm/h [facility] Blood 05/21/2023 11:1 6 AM BLUE LINE TRIMMER 05/21/2023 11:16 AM BLUE LINE TRIMMER Martina JONES LAB BLOOD ORDERABLES Final Result [facility] [address] [place] [address] * (ABNORMAL) CBC with auto differential (05/21/2023 11:16 AM BLUE LINE TRIMMER) Pathologist [facility] WBC 9.7 3.8 - 10.8 Thousand/u L [facility] RBC, POC 3.79(L) 3.80 - 5.10 Million/uL [facility] Hgb 12.5 11.7 - 15.5 g/dL [facility] Hct 36.7 35.0 - 45.0 % [facility] MCV 96.8 80.0 - 100.0 fL [facility] MCH 33.0 27.0 - 33.0 pg [facility] MCHC 34.1 32.0 - 36.0 g/dL [facility] Rdw 13.2 11.0 - 15.0 % [facility] Platelets 288 140 - 400 Thousand/u L [facility] MPV 10.4 7.5 - 12.5 fL [facility] Neutrophils, abs 7,450 1,500 - 7,800 cells/uL [facility] Lymphocytes, abs 1,290 850 - 3,900 cells/uL [facility] Monocyte abs 805 200 - 950 cells/uL [facility] Eosinophils, abs 68 15 - 500 cells/uL [facility] Basophils, abs 87 0 - 200 cells/uL [facility] Neutrophils 76.8 % [facility] Lymphocyte pct 13.3 % [facility] Monocytes 8.3 % [facility] Eosinophils 0.7 % [facility] Basophils 0.9 % [facility] Blood 05/21/2023 11:1 6 AM BLUE LINE TRIMMER 05/21/2023 11:16 AM BLUE LINE TRIMMER us Martina JONES LAB BLOOD ORDERABLES Final Result [facility] [address] [place] [address] * (ABNORMAL) Comprehensive metabolic panel (05/21/2023 11:16 AM BLUE LINE TRIMMER) Glucose 113(H) 65 - 99 mg/dL [facility] Comment: ? Fasting reference interval For someone without known diabetes, a glucose value between 100 and 125 mg/dL is consistent with prediabetes and should be confirmed with a follow-up test. BUN 19 7 - 25 mg/dL [facility] Creatinine 1.02(H) 0.60 - 1.00 mg/dL [facility] eGFR 58(L) > OR = 60 mL/min/1.7 3m2 [facility] BUN/creat ratio 19 6 - 22 (calc) [facility] Sodium 138 135 - 146 mmol/L [facility] Potassium, pl 4.0 3.5 - 5.3 mmol/L [facility] Chloride 102 98 - 110 mmol/L [facility] CO2 25 20 - 32 mmol/L [facility] Calcium 9.1 8.6 - 10.4 mg/dL [facility] Protein, sr 6.5 6.1 - 8.1 g/dL [facility] Albumin 3.8 3.6 - 5.1 g/dL [facility] GLOBULIN 2.7 1.9 - 3.7 g/dL (calc) [facility] Alb/glob ratio 1.4 1.0 - 2.5 (calc) [facility] Bilirubin, total 0.4 0.2 - 1.2 mg/dL [facility] Alk phos 65 37 - 153 U/L [facility] AST 25 10 - 35 U/L [facility] ALT (SGPT) 17 6 - 29 U/L [facility] Blood 05/21/2023 11:1 6 AM BLUE LINE TRIMMER 05/21/2023 11:16 AM BLUE LINE TRIMMER us Martina JONES LAB BLOOD ORDERABLES Final Result [facility] [address] [place] [address] documented in this encounter Visit Diagnoses Diagnosis 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)- Primary Rheumatoid arthritis with rheumatoid factor of multiple sites without organ or systems involvement (HCC) Neck pain Cervicalgia [facility] current use 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 drug Musculoskeletal pain Unspecified myalgia and myositis documented in this encounter Orders Outpatient Referral Count Last Ordered Date Fir st Ordered Date AMB REFERRAL TO RHEUMATOLOGY 1 05/21/2023 documented in this encounter Care Teams Furnace Cleaner Relationship Specialty Start Date End Date Jay Argueta MD [address] [place] [address] PCP - General Family Practice 11/29/22 10/07/23 Wilmer Taylor MD [address] [facility] [address] [place] [address] Referring Physician Obstetrics and Gynecology 05/09/12 Jeffrey Koch MD [address] [place] [address] Consulting Physician Rheumatology 02/03/21 Luz Lewis MD [address] [place] [address] Referring Physician Surgery 12/14/21 Raleigh Jay MD PhD [address] [place] [address] Radiation Oncologist Radiation Oncology 12/12/22 Ranjan Cazares MD [address] [facility] [address] [place] [address] Surgeon Thoracic Surgery 12/12/22 documented as of this encounter
--- OUTSIDE RECORDS SUMMARY | 2024-05-03 02:49 | XMS_ITS | Encounter Summary ---
Author Organization [facility] Healthcare Address [address] [place] [address] Care Team Providers Care Bike Assembler Name Role Phone Wilmer Taylor MD Unavailable [phone] Jeffrey Koch MD Unavailable [phone] Luz Lewis MD Unavailable [phone] Jay Argueta MD Primary Care Provider [phone] Raleigh Jay MD PhD Unavailable [phone] Ranjan Cazares MD Unavailable [phone] Encounter Details Date Type Department Care Team (Late st Contact Info) Description 09/03/2023 12:30 PM CDT Treatment [facility] Radiation Oncology [address] [place] [address] Yehuda Tse MD PhD [address] [facility] [id number][place] [address] Social History Tobacco Use Types Packs/Day Years [...] on file Legal Sex Female 10:10 AM TAR HEEL Gender Identity Not on file Sexual Orientation Not on file documented as of this encounter Plan of Treatment Not on file documented as of this encounter Visit Diagnoses Not on filedocumented in this encounter Care Teams Bike Assembler Relationship Specialty Start Date End Date Jay Argueta MD [address] [place] [address] PCP - General Family Practice 11/29/22 10/07/23 Wilmer Taylor MD [address] [address] Referring Physician Obstetrics and Gynecology 05/09/12 Jeffrey Koch MD [address] [place] [address] Consulting Physician Rheumatology 02/03/21 Luz Lweis MD [address] [place] [address] Referring Physician Surgery 12/14/21 Raleigh Jay MD PhD [address] [place] [address] Radiation Oncologist Radiation Oncology 12/12/22 Ranjan Cazares MD [address] [facility] [address] [place] [address] Surgeon Thoracic Surgery 12/12/22 documented as of this encounter
--- OUTSIDE RECORDS SUMMARY | 2024-05-03 02:49 | XMS_ITS | Encounter Summary ---
Author Organization [facility] Healthcare Address [address] [place] [address] Care Team Providers Care Steeler Name Role Phone Wilmer Taylor MD Unavailable [phone] Jeffrey Koch MD Unavailable [phone] Luz Lewis MD Unavailable [phone] Jay Argueta MD Primary Care Provider [phone] Raleigh Jay MD PhD Unavailable [phone] Ranjan Cazares MD Unavailable [phone] Encounter Details Date Type Department Care Team (Late st Contact Info) Description 01/04/2023 10:00 AM CDT Treatment [facility] Radiation Oncology [address] [place] [address] Raleigh Jay MD PhD [address] [place] [address] Social History Tobacco Use Types Packs/Day Years [...] on file Legal Sex Female 10:10 AM MID LEVEL 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 [address] [address] Referring Physician Obstetrics and Gynecology 05/09/12 Jeffrey Koch MD [address] [place] [address] Consulting Physician Rheumatology 02/03/21 Luz Lewis MD [address] [place] [address] Referring Physician Surgery 12/14/21 Raleigh Jay MD PhD [address] [place] [address] Radiation Oncologist Radiation Oncology 12/12/22 Ranjan Cazares MD [address] [facility] [address] [place] [address] Surgeon Thoracic Surgery 12/12/22 documented as of this encounter
--- OUTSIDE RECORDS SUMMARY | 2024-05-03 02:49 | XMS_ITS | Encounter Summary ---
Author Organization [facility] Healthcare Address [address] [place] [address] Care Team Providers Care House Cleaner Supervisor Name Role Phone Wilmer Taylor MD Unavailable [phone] Jeffrey Koch MD Unavailable [phone] Luz Lewis MD Unavailable [phone] Jay Argueta MD Primary Care Provider + [phone] Raleigh Jay MD PhD Unavailable + [phone] Ranjan Cazares MD Unavailable [phone] Reason for Referral * MRI/CAT/PET Scan (Routine) - Closed Specialty Diagnoses / Procedures Referred By Contac t Referred To Contact Radiology Diagnoses Malignant neoplasm of upper lobe, right bronchus or lung (HCC) Procedures CT Chest WO Contrast Raleigh Jay MD PhD [address] [place] [address] Phone: tel: fax: [address] [phone] Referral ID Status Reason Start Date Expiration Date Visits Re quested Visits Authorized [id number] Closed 04/12/2023 05/11/2024 1 1 Reason for Visit * MRI/CAT/PET Scan (Routine) - Closed Specialty Diagnoses / Procedures Referred By Micah t Referred To Contact Radiology Diagnoses Malignant neoplasm of upper lobe, right bronchus or lung (HCC) Procedures CT Chest WO Contrast aRleigh Jay MD PhD [address] [place] [address] Phone: tel: fax: [address] [phone] Referral ID Status Reason Start Date Expiration Date Visits Re quested Visits Authorized [id number] Closed 04/12/2023 05/11/2024 1 1 Encounter Details Date Type Department Care Team (Latest Contact Info) Description 07/13/2023 9:44 AM CDT - 07/13/2023 11:59 PM CDT Hospital Encounter [facility] [address] [place] [id number] Malignant neoplasm of upper lobe, right bronchus or lung (HCC) Discharge Disposition: Discharge to home or self care Social History Tobacco Use Types Packs/Day Years Used Date Smoking Tobacco: Former Cigarettes 0.3 50 1 9 - 2015 Smokeless Tobacco: Never Alcohol Use [...] on file 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 SN: SN Report ID: [id number] Reading Location: [place] [address] Raleigh Jay MD PhD IMG CT PROCEDURES Lupe l Result documented in this encounter Visit Diagnoses Diagnosis Malignant neoplasm of upper lobe, right bronchus or lung (HCC) documented in this encounter Care Teams House Cleaner Supervisor Relationship Specialty Start Date End Date Jay Argueta MD [address] [place] [address] PCP - General Family Practice 11/29/22 10/07/23 Wilmer Taylor MD [address] [facility] [address] [place] [address] Referring Physician Obstetrics and Gynecology 05/09/12 Jeffrey Koch MD [address] [facility] [place] [address] Consulting Physician Rheumatology 02/03/21 Luz Lewis MD [address] [facility] [place] [address] Referring Physician Surgery 12/14/21 Raleigh Jay MD PhD [address] [facility] [place] [address] Radiation Oncologist Radiation Oncology 12/12/22 Ranjan Cazares MD [address] [facility] [place] [place] [address] [place] [address] Surgeon Thoracic Surgery 12/12/22 documented as of this encounter
--- OUTSIDE RECORDS SUMMARY | 2024-05-03 02:49 | XMS_ITS | Encounter Summary ---
Author Organization [facility] Healthcare Address [address] [place] [address] Care Team Providers Care Operations Manager Station Name Role Phone Wilmer Taylor MD Unavailable [phone] Jeffrey Koch MD Unavailable [phone] Luz Lewis MD Unavailable [phone] Jay Argueta MD Primary Care Provider [phone] Raleigh Jay MD PhD Unavailable + [phone] Ranjan Cazares MD Unavailable [phone] Reason for Referral * MRI/CAT/PET Scan (Routine) - Closed Specialty Diagnoses / Procedures Referred By Contac t Referred To Contact Radiology Diagnoses Malignant neoplasm of upper lobe, right bronchus or lung (HCC) Procedures CT Chest WO Contrast Raleigh Jay MD PhD [address] [place] [address] Phone: tel: fax: [address] [address] Referral ID Status Reason Start Date Expiration Date Visits Re quested Visits Authorized [id number] Closed 01/03/2023 02/02/2024 1 1 Encounter Details Date Type Department Care Team (Late st Contact Info) Description 01/03/2023 O[facility] Radiation Oncology [address] [place] [address] Raleigh Jay MD PhD [address] [place] [address] Malignant neoplasm of upper lobe, right bronchus [...] on file 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 Gender Identity Not on file Sexual Orientation Not on file documented as of this encounter Last Filed Vital Signs Vital Sign Reading Time Taken Comments Blood Pressure 139/80 01/03/2023 10:17 AM CDT Pulse 106 01/03/2023 10:17 AM CDT Temperature 36.4 ??C (97.5 ??F) 01/03/2023 10:17 AM C DT Respiratory Rate 22 01/03/2023 10:17 AM CDT Oxygen Saturation 91% 01/03/2023 10:17 AM CDT Inhaled Oxygen Concentration - - Weight 65.6 kg (144 lb 9.6 oz) 01/03/2023 10:17 AM CDT Height - - Body Mass Index 24.82 12/12/2022 10:16 AM CDT documented in this encounter Progress Notes * Raleigh Jay MD PhD - 01/03/2023 10:17 AM CDT Radiation Oncologist: Raleigh Jay MD PhD Primary Care Physician: Jya Argueta MD Medical Oncologist: No care long line teamster to display Surgeon: Ranjan Cazares MD Date of Service: 01/03/2023 RADIATION ONCOLOGY ON TREATMENT VISIT (OTV) NOTE [...] Raleigh Jay MD PhD on 12/12/2022 Encounter Diagnosis Name Primary? Malignant neoplasm of upper lobe, right bronchus or lung (HCC) Yes TREATMENT: Radiation Treatments Active Plans SBRT RLL LUNG Most recent treatment: Dose planned: 1,100 cGy (fraction 3 on 01/03/2023) Total: Dose planned: 5,500 cGy Elapsed Days: 2 Reference Points [id number] Most recent treatment: Dose given: 1,100 cGy (on 01/03/2023) Total: Dose given: 3,300 cGy Elapsed Days: 2 SUBJECTIVE: Tolerating treatment well. Denies changes in respiratory function. Denies cough or hemoptysis. Denies dysphagia or odynophagia. Denies pain (0/10). EXAM: BP 139/80 Pulse 106 Temp 36.4 ??C (97.5 ??F) Resp 22 Wt 65.6 kg (144 lb 9.6 oz) SpO2 91% BMI 24.82 kg/m?? Pain Score and Location 01/03/23 1017 PainSc: 0-No pain NAD. No dermatitis. Esophagitis: 0 - None Radiation dermatitis: 0 - None Fatigue: 0 - None KPS 80=Normal activity with effort. ECOG Score = 1. ASSESSMENT No side effects PLANS Continue with treatment. Completes treatment on Sunday. Will f/u in [address] chest. RAD ONC PAIN PLAN: The patient is not currently having any pain that requires changes in pain management. documented in this encounter Nursing Notes * Alisa Figueredo RN - 01/03/2023 10:17 AM CDT Pt tolerating treatment well. documented in this encounter Plan of Treatment Not on file documented as of this encounter Results * CT Chest WO Contrast (03/22/2023 9:38 AM PROJECT PRODUCTION ENGINEER) Anatomical Region Laterality Modality Body N/A Computed Tomogra phy 03/23/2023 9:37 AM PROJECT PRODUCTION ENGINEER Narrative 03/23/2023 9:59 AM PROJECT PRODUCTION ENGINEER EXAM DESCRIPTION: ?? CT CHEST WO CONTRAST [...] AM T: ??03/23/2023 9:59 AM Report ID: [id number] Reading Location: ??[id number] Procedure Note Kaden Cox MD - 03/23/2023 [...] Kaden Cox M.D. AM: AM Report ID: [id number] Reading Location: [id number] Raleigh Jay MD PhD IMG CT PROCEDURES Lupe l Result documented in this encounter Visit Diagnoses Diagnosis Malignant neoplasm of upper lobe, right bronchus or lung (HCC)- Primary Malignant neoplasm of upper lobe, right bronchus or lung (HCC) documented in this encounter Care Teams Operations Manager Station Relationship Specialty Start Date End Date Jay Argueta MD [address] [place] [address] PCP - General Family Practice 11/29/22 10/07/23 Wilmer Taylor MD [address] [place] [address] [address] [place] [address] Referring Physician Obstetrics and Gynecology 05/09/12 Jeffrey Koch MD [address] [place] [address] Consulting Physician Rheumatology 02/03/21 Luz Lewis MD [address] [place] [address] Referring Physician Surgery 12/14/21 Raleigh Jay MD PhD [address] [place] [address] Radiation Oncologist Radiation Oncology 12/12/22 Ranjan Cazares MD [address] [facility] [address] [place] [address] Surgeon Thoracic Surgery 12/12/22 documented as of this encounter
--- OUTSIDE RECORDS SUMMARY | 2024-05-03 02:49 | XMS_ITS | Encounter Summary ---
Author Organization [facility] Healthcare Address [address] [place] [address] Care Team Providers Care Cardiovascular Invasive Specialist Name Role Phone Wilmer Taylor MD Unavailable [phone] Jeffrey Koch MD Unavailable [phone] Luz Lewis MD Unavailable [phone] Jay Argueta MD Primary Care Provider [phone] Raleigh Jay MD PhD Unavailable [phone] Ranjan Cazares MD Unavailable [phone] Reason for Referral * MRI/CAT/PET Scan (Routine) - Closed Specialty Diagnoses / Procedures Referred By Contac t Referred To Contact Radiology Diagnoses Malignant neoplasm of lower lobe, right bronchus or lung (HCC) Malignant neoplasm of upper lobe, right bronchus or lung (HCC) Procedures PET/CT FDG Skull to Thigh Raleigh Jay MD PhD [address] [place] [address] Phone: tel: fax: [address] [phone] Referral ID Status Reason Start Date Expiration Date Visits Re quested Visits Authorized [id number] Closed 08/08/2023 11/06/2023 2 2 Reason for Visit * Consultation (Routine) - Canceled Specialty Diagnoses / Procedures Referred By Contac t Referred To Contact Radiation Oncology Diagnoses Malignant neoplasm of upper lobe, right bronchus or lung (HCC) Raleigh Jay MD PhD [address] [place] [address] Phone: tel: fax: Raleigh Jay MD PhD [address] [place] [address] Phone: tel: fax: Referral ID Status Reason Start Date Expiration Date V isits Requested Visits Authorized [id number] Canceled Continuity of Care 03/29/2023 03/29/2024 99 99 Encounter Details Date Type Department Care Team (Late st Contact Info) Description 07/20/2023 9:00 AM CDT Office Visit [facility] Radiation Oncology [address] [place] [address] Raleigh Jay MD PhD [address] [place] [address] Malignant neoplasm of lower lobe, right bronchus [...] on file 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 Gender Identity Not on file Sexual Orientation Not on file documented as of this encounter Last Filed Vital Signs Vital Sign Reading Time Taken Comments Blood Pressure 135/63 07/20/2023 9:02 AM CDT Pulse 80 07/20/2023 9:02 AM CDT Temperature 36.5 ??C (97.7 ??F) 07/20/2023 9:02 AM CD T Respiratory Rate 18 07/20/2023 9:02 AM CDT Oxygen Saturation 95% 07/20/2023 9:02 AM CDT Inhaled Oxygen Concentration - - Weight 63 kg (138 lb 12.8 oz) 07/20/2023 9:02 AM CDT Height - - Body Mass Index 23.82 02/12/2023 10:02 AM CDT documented in this encounter Progress Notes * Raleigh Jay MD PhD - 07/20/2023 9:00 AM CDT Staff Physician: Raleigh Jay MD PhD Referring Physician: Patient Care Team: Wilmer Taylor MD as Referring Physician (Obstetrics and Gynecology) Luz Lewis MD as Referring Physician (Surgery) Date of Service: 07/20/2023 RADIATION ONCOLOGY FOLLOW UP NOTE IDENTIFYING DATA: [...] 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 She was last seen in our office on 04/12/2023. INTERVAL HISTORY: Since our last follow-up, the patient has been relatively stable from a respiratory standpoint. Shereports stable baseline shortness of breath. She denies any cough or hemoptysis. She did have a recent bout of pneumonia, but this has since resolved. She denies any fever or chills. She denies any he adache, nausea, vomiting, vision changes, or any focal numbness or weakness. She denies any pain (0/10). Her most recent CT of the chest on 07/13/2023 showed that the nodularity seen at the right lung base in the treatment was not clearly visualized. There was some persistent post radiation effect in the right lung base as well. There was noted to be an interval increase in size of a left upper lobe nodule closer to the mediastinum that was measured at 1.2 x 1.1 cm, compared to 0.7 x 0.6 cm from her February 2023 scan. Of note, this was not reported on her prior imaging nor identified by myself but when I went back to her pre treatment PET-CT from [facility] in October 2022, there was asmall nodule noted in the same location at that time which was not FDG avid. There was no evidence of any abnormal lymphadenopathy. She otherwise denies any additional changes to her medical history. PREVIOUS RADIATION: 5500 cGy in 5 fractions with SBRT to the right lower lobe completed on 01/05/2023. ALLERGIES: Allergies Allergen Reactions Levofloxacin Swelling and [...] hematologic/lymphatic, or immunologic systems. PHYSICAL EXAMINATION: BP 135/63 Pulse 80 Temp 36.5 ??C (97.7 ??F) Resp 18 Wt 63 kg (138 lb 12.8 oz) SpO2 95% BMI 23.82 kg/m?? Pain Score and Location 07/20/23 0902 PainSc: 0-No pain ECOG Performance: 1 Physical [...] SBRT to 5500 cGy completed on 01/05/2023. He appears to be relatively stable from a respiratory standpoint and radiographically has continued control of her right lower lobe disease with no clear clinical or radiographic evidence of disease progression at that location. However, there is an enlarging left upper lobe central nodule noted on her recent imaging which was present on prior studies, but is clearly enlarged and concerning for malignancy. Given the size of this lesion, I would recommend a PET-CT for further workup and evaluation and to rule out any additional sites of disease. We discussed that if PET-CT is concerning for malignancy, this lesion would be a challenge to biopsy as I do not see any clear airway adjacent to the lesion for endobronchial biopsy and I believe she would be challenging for CT- guided biopsy given the proximityto the heart. Additionally, as she was not an ideal surgical candidate with her initial presentation, I suspect she would continues to not be a good surgical candidate and so definitive radiation ther apy with SBRT would be the likely most appropriate treatment option. However, we will discuss details of this treatment again if PET-CT is concerning. The patient and her family member asked appropriate questions and expressed understanding and were in agreement with the overall plan. PLAN: We will obtain PET-CT for further evaluation of this enlarging left upper lobe nodule and will discuss the results with the patient and her family. If this is concerning for malignancy, she is expected to be a continued poor surgical candidate and biopsy candidate and so we would recommend empiric SBRT. Continue close follow up with her other healthcare providers. RAD ONC PAIN PLAN: The patient is not currently having any pain that requires changes in pain management. DISEASE STATUS/TOXICITY: Disease Status: Controlled New metachronous cancer?: Yes, suspicious DAVIDA nodule documented in this encounter Nursing Notes * Alisa Figueredo RN - 07/20/2023 9:00 AM CDT Pt here with her daught to F/U CT chest. She uses oxygen on prn basis. documented in this encounter Plan of Treatment [...] by ??Vel Kong M.D. CH: CHANCE D: ??08/08/2023 10:53 AM T: ??08/08/2023 10:53 AM Report ID: [id number] Reading Location: ??[id number] Procedure Note Vel Kong Jr., MD - [...] Vel Kong M.D. CH: CHANCE Report ID: [id number] Reading Location: [id number] Raleigh Jay MD PhD IMG PET PROCEDURES [...] (HCC) documented in this encounter Care Teams Cardiovascular Invasive Specialist Relationship Specialty Start Date End Date Jay Argueta MD [address] [place] [address] PCP - General Family Practice 11/29/22 10/07/23 Wilmer Taylor MD [address] [facility] [address] [place] [address] Referring Physician Obstetrics and Gynecology 05/09/12 Jeffrey Koch MD [address] [place] [address] Consulting Physician Rheumatology 02/03/21 Luz Lewis MD [address] [place] [address] Referring Physician Surgery 12/14/21 Raleigh Jay MD PhD [address] [place] [address] Radiation Oncologist Radiation Oncology 12/12/22 Ranjan Cazares MD [address] [facility] [address] [place] [address] Surgeon Thoracic Surgery 12/12/22 documented as of this encounter
--- OUTSIDE RECORDS SUMMARY | 2024-05-03 02:49 | XMS_ITS | Encounter Summary ---
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) Sin Mcclure MD Phone: tel: fax: [facility] [address] [place] [address] Phone: tel: fax: Referral ID Status Reason Start Date Expiration Date V isits Requested Visits Authorized [id number] Closed Specialty Services Required 05/12/2022 05/13/2023 3 3 Encounter Details Date Type Department Care Team (Late st Contact Info) Description 02/12/2023 10:00 AM CDT Office Visit [facility] [address] [place] [address] Martina Elizabeth PA [address] [place] [address] 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) (Primary Dx); detention current use 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 drug Social [...] on file 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 Gender Identity Not on file Sexual Orientation Not on file documented as of this encounter Last Filed Vital Signs Vital Sign Reading Time Taken Comments Blood Pressure 138/90 02/12/2023 10:02 AM CDT Pulse 85 02/12/2023 10:02 AM CDT Temperature - - Respiratory Rate - - Oxygen Saturation 93% 02/12/2023 10: 02 AM CDT Inhaled Oxygen Concentration - - Weight 64.8 kg (142 lb 12.8 oz) 023 10:02 AM CDT Height 162.6 cm (5' 4 ) 02/12/2023 10:0 2 AM CDT Body Mass Index 24.51 02/12/2023 10:02 AM CDT documented in this encounter Ordered Prescriptions Prescription Sig Dispense Quantity Refills Last Filled Start Date End Date methotrexate 2.5 mg tabletIndications: Rheumatoid Arthritis Take 5 tablets (12.5 mg total) by mouth every 7 days Every Sunday 60 tablet 1 02/12/2023 4 folic acid (FOLVITE) 1 mg tabletIndications: Folate Deficiency Take 1 tablet (1 mg total) by mouth daily after lunch 90 tablet 3 02/12/2023 4 documented in this encounter Progress Notes * Martina Elizabeth PA - 02/12/2023 10:00 AM CDT Images from the original note were not included. Subjective/Objective Patient ID: Loida Guillory is a 72 y.o. female. Chief Complaint RA HPI Returns for routine follow up and is accompanied by her daughter. Had radiation for 5 days. Now seeing salt miner Dr. Mathias at [facility] [place] who is doing more testing. Having EKG and 6 min walk test next week. Wearing oxygen at night. Wondering about taking turmeric for arthritis pain. 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 Denies fevers, infections, rashes, mouth sores, cough, dyspnea, n/v. Joint pain today is 3 /10. AM stiffness = few minutes Review of Systems Constitutional: Positive for fatigue. Negative for chills and fever. HENT: Negative for congestion and mouth sores. Respiratory: Negative for cough and shortness of breath. Cardiovascular: Negative for chest pain. Gastrointestinal: Negative for abdominal pain, diarrhea, nausea and vomiting. Musculoskeletal: Positive for arthralgias. Negative for myalgias. Skin: Negative for rash. Vitals: Vitals BP 138/90 Pulse 85 Ht 162.6 cm (5' 4 ) Wt 64.8 kg (142 lb 12.8 oz) SpO2 93% BMI 24.51 kg/m?? Body mass index is 24.51 kg/m??. Bold X is a current medication. [...] heard. Pulmonary/Chest: Effort normal. Musculoskeletal: See cdai. Neurological: alert and oriented to person, place, and time. Skin: Skin is warm and dry. No rash noted. Psychiatric: normal mood and affect. speech is normal and behavior is normal. Cognition and memory are normal. Patient Global: 30 mm Provider Global: 30 mm CDAI: 7 In remission: 0-3 Low: 4-10 Moderate: 11-22 High: 23 or > Labs Lab Results Component Value Date WBC 8.7 10/09/2022 HGB 12.7 10/09/2022 HCT 37.7 10/09/2022 MCV 97.9 10/09/2022 Lab Results Component Value Date GLUCOSE 94 10/09/2022 CALCIUM 9.2 10/09/2022 SODIUM 140 10/09/2022 POTASSIUM 4.1 10/09/2022 CO2 25 10/09/2022 CHLORIDE 106 10/09/2022 BUNSER 20 10/09/2022 CREATININE 1.03 (H) 10/09/2022 Lab Results Component Value Date ALT 15 10/09/2022 AST 20 10/09/2022 ALKPHOS 79 10/09/2022 BILITOT 0.4 10/09/2022 Lab Results Component Value Date SEDRATE 36 (H) 10/09/2022 Lab Results Component Value Date CRP 2.5 10/09/2022 Assessment/Plan Diagnoses and all orders for this [...] rate; Future - CRP (acute phase); Future long term acute care registered nurse current use 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 drug Assessment & Plan: Hepatitis negative: 02/2021 Orders: - Comprehensive metabolic panel; Future - CBC with auto differential; Future - Erythrocyte sedimentation rate; Future - CRP (acute phase); Future Other orders - folic acid (FOLVITE) 1 mg tablet; Take 1 tablet (1 mg total) by mouth daily after lunch - methotrexate 2.5 mg tablet; Take 5 tablets (12.5 mg total) by mouth every 7 days Every Sunday Martina Elizabeth PA-C Cosigned by Jeffrey Koch MD at 02/14/2023 1:12 PM CDT documented in this encounter Miscellaneous Notes * Assessment & Plan Note - Martina Elizabeth PA - 02/12/2023 11:59 AM CDTAssociated Problem(s): detention current use 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 drug Hepatitis negative: 02/2021 * Assessment & Plan Note - Martina Elizabeth PA - 02/12/2023 11:59 AM CDTAssociated Problem(s): Rheumatoid arthritis involving both [...] up in 3-4 months. Sooner if needed. 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) detention current use 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 drug ERYTHROCYTE SEDIMENTATION RATE Routine 02/12/2023 10:41 AM CDT 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) long term acute care registered nurse current use 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 drug CRP (ACUTE PHASE) Routine 02/12/2023 10: 41 AM CDT 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) detention current use 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 drug COMPREHENSIVE METABOLIC PANEL Routine 02/12/2023 10:41 AM CDT 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) long term acute care registered nurse current use 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 drug documented in this encounter Results * (ABNORMAL) CRP (acute phase) (02/12/2023 10:41 AM CDT) C-RP 28.3(H) <8.0 mg/L [facility] Blood 02/12/2023 10:4 1 AM CDT 02/12/2023 10:41 AM CDT Martina JONES LAB BLOOD ORDERABLES Final Result [facility] [address] [place] [address] * (ABNORMAL) Erythrocyte sedimentation rate (02/12/2023 10:41 AM CDT) Erythrocyte sedimentation rate 51(H) < OR = 30 mm/h [facility] Blood 02/12/2023 10:4 1 AM CDT 02/12/2023 10:41 AM CDT Martina JONES LAB BLOOD ORDERABLES Final Result [facility] [address], [place] [address] * (ABNORMAL) CBC with auto differential (02/12/2023 10:41 AM CDT) WBC 10.9(H) 3.8 - 10.8 Thousand/u L [facility] RBC, POC 3.72(L) 3.80 - 5.10 Million/uL [facility] Hgb 12.4 11.7 - 15.5 g/dL [facility] Hct 37.1 35.0 - 45.0 % [facility] MCV 99.7 80.0 - 100.0 fL [facility] MCH 33.3(H) 27.0 - 33.0 pg [facility] MCHC 33.4 32.0 - 36.0 g/dL [facility] Rdw 13.3 11.0 - 15.0 % [facility] Platelets 327 140 - 400 Thousand/u L [facility] MPV 9.9 7.5 - 12.5 fL [facility] Neutrophils, abs 8,175(H) 1,500 - 7,800 cells/uL [facility] Lymphocytes, abs 1,461 850 - 3,900 cells/uL [facility] Monocyte abs 1,014(H) 200 - 950 cells/uL [facility] Eosinophils, abs 142 15 - 500 cells/uL [facility] Basophils, abs 109 0 - 200 cells/uL [facility] Neutrophils 75 % [facility] Lymphocyte pct 13.4 % [facility] Monocytes 9.3 % [facility] Eosinophils 1.3 % [facility] Basophils 1.0 % [facility] Blood 02/12/2023 10:4 1 AM CDT 02/12/2023 10:41 AM CDT Martina JONES LAB BLOOD ORDERABLES Final Result [facility] [address] [place] [address] * (ABNORMAL) Comprehensive metabolic panel (02/12/2023 10:41 AM CDT) Glucose 109(H) 65 - 99 mg/dL [facility] Comment: ? Fasting reference interval For someone without known diabetes, a glucose value between 100 and 125 mg/dL is consistent with prediabetes and should be confirmed with a follow-up test. BUN 19 7 - 25 mg/dL [facility] Creatinine 1.03(H) 0.60 - 1.00 mg/dL [facility] eGFR 57(L) > OR = 60 mL/min/1.7 3m2 [facility] BUN/creat ratio 18 6 - 22 (calc) [facility] Sodium 142 135 - 146 mmol/L [facility] Potassium, pl 3.6 3.5 - 5.3 mmol/L [facility] Chloride 103 98 - 110 mmol/L [facility] CO2 26 20 - 32 mmol/L [facility] Calcium 9.3 8.6 - 10.4 mg/dL [facility] Protein, sr 6.7 6.1 - 8.1 g/dL [facility] Albumin 3.7 3.6 - 5.1 g/dL [facility] GLOBULIN 3.0 1.9 - 3.7 g/dL (calc) [facility] Alb/glob ratio 1.2 1.0 - 2.5 (calc) [facility] Bilirubin, total 0.4 0.2 - 1.2 mg/dL [facility] Alk phos 61 37 - 153 U/L [facility] AST 20 10 - 35 U/L [facility] ALT (SGPT) 12 6 - 29 U/L [facility] Blood 02/12/2023 10:4 1 AM CDT 02/12/2023 10:41 AM CDT us Martina JONES LAB BLOOD ORDERABLES Final Result [facility] [address] [place] [address] documented in this encounter Visit Diagnoses Diagnosis 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)- Primary long term acute care registered nurse current use 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 drug documented in this encounter Discontinued Medications Medication Sig Discontinue Reason Start Date End Da te traMADoL (ULTRAM) 50 mg tablet Take 1 tablet (50 mg total) by mouth every 4 (four) hours as needed for pain 06/07/2022 02/12/2023 folic acid (FOLVITE) 1 mg tabletIndications:Folat e Deficiency Take 1 tablet (1 mg total) by mouth daily after lunch Reorder 05/15/2022 02/12/2023 methotrexate 2.5 mg tabletIndications:Rheum atoid Arthritis Take 5 tablets (12.5 mg total) by mouth every 7 days Every Sunday Reorder 12/04/2022 02/12/2023 documented as of this encounter Care Teams Apparatus Lineman Relationship Specialty Start Date End Date Jay Argueta MD [address] [facility] [place] [address] PCP - General Family Practice 11/29/22 10/07/23 Wilmer Taylor MD [address] [facility] [address] [place] [address] Referring Physician Obstetrics and Gynecology 05/09/12 Jeffrey Koch MD [address] [place] [address] Consulting Physician Rheumatology 02/03/21 Luz Lewis MD [address] [place] [address] Referring Physician Surgery 12/14/21 Raleigh Jay MD PhD [address] [place] [address] Radiation Oncologist Radiation Oncology 12/12/22 Ranjan Cazares MD [id number] [place] [address] Surgeon Thoracic Surgery 12/12/22 documented as of this encounter
--- OUTSIDE RECORDS SUMMARY | 2024-05-03 02:49 | XMS_ITS | Encounter Summary ---
Author Organization [facility] Healthcare Address [address] [place] [address] Care Team Providers Care Install And Repair Technician Name Role Phone Wilmer Taylor MD Unavailable [phone] Jeffrey Koch MD Unavailable [phone] Luz Lewis MD Unavailable [phone] Jay Argueta MD Primary Care Provider [phone] Raleigh Jay MD PhD Unavailable [phone] Ranjan Cazares MD Unavailable [phone] Encounter Details Date Type Department Care Team (Late st Contact Info) Description 08/31/2023 Orders Only RAD ONC TREATMENTS Miscellaneous, Not [...] on file 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 Gender Identity Not on file Sexual Orientation Not on file documented as of this encounter Plan of Treatment Not on file documented as of this encounter Procedures Procedure Name Priority Date/Time Associated Diagnosis Comments RAD ONC ARIA COURSE SUMMARY 08/31/2023 10:12 AM CDT documented in this encounter Results * RAD ONC ARIA COURSE SUMMARY (08/31/2023 10:12 AM CDT) Course Name [id number] ARIA Course Plan Date 12/20/2022 12:55 PM ARIA Elapsed Days 4 ARIA Treatment Start Date 01/01/2023 ARIA Treatment Site [id number] ARIA Dose Given To Date (cGy) 5,500 ARIA Session Dosage Given (cGy) 0 ARIA Plan ID SBRT RLL LUNG ARIA Fractions Treated 5 ARIA Prescribed Dose Per Fraction (cGy) 1,100 ARIA Prescribed Total Dose (cGy) 5,500 ARIA 08/31/2023 10:1 2 AM CDT us Not In File Miscellaneous RADIATION ONCOLOGY ORD ERABLES Final Result ARIA documented in this encounter Visit Diagnoses Not on filedocumented in this encounter Care Teams Install And Repair Technician Relationship Specialty Start Date End Date Jay Argueta MD [address] [place] [address] PCP - General Family Practice 11/29/22 10/07/23 Wilmer Taylor MD [address] [place] [address] Referring Physician Obstetrics and Gynecology 05/09/12 Jeffrey Koch MD [address] [place] [address] Consulting Physician Rheumatology 02/03/21 Luz Lewis MD [address] [place] [address] Referring Physician Surgery 12/14/21 Raleigh Jay MD PhD [address] [place] [address] Radiation Oncologist Radiation Oncology 12/12/22 Ranjan Cazares MD [id number] [place] [address] Surgeon Thoracic Surgery 12/12/22 documented as of this encounter
--- OUTSIDE RECORDS SUMMARY | 2024-05-03 02:49 | XMS_ITS | Encounter Summary ---
Author Organization [facility] Healthcare Address [address] [place] [address] Care Team Providers Care Automation Lead Name Role Phone Wilmer Taylor MD Unavailable [phone] Jeffrey Koch MD Unavailable [phone] Luz Lewis MD Unavailable [phone] Jay Argueta MD Primary Care Provider [phone] Raleigh Jay MD PhD Unavailable [phone] Ranjan Cazares MD Unavailable [phone] Encounter Details Date Type Department Care Team (Late st Contact Info) Description 01/19/2023 Telephone [facility] Radiation Oncology [address] [place] [address] Alisa Figueredo, RN Social History Tobacco Use Types Packs/Day [...] file 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 Her UA was negative. She thought sxs maybe related to radiation treatments. I explained that it was not likely. She may be dehydrated and should push fluids or can try AZO OTC and see PMD if sxs persist. documented in this encounter Plan of Treatment Not on file documented as of this encounter Visit Diagnoses Not on filedocumented in this encounter Care Teams Automation Lead Relationship Specialty Start Date End Date Jay Argueta MD [address] [place] [address] PCP - General Family Practice 11/29/22 10/07/23 Wilmer Taylor MD [address] [address] Referring Physician Obstetrics and Gynecology 05/09/12 Jeffrey Koch MD [address] [place] [address] Consulting Physician Rheumatology 02/03/21 Luz Lewis MD [address] [place] [address] Referring Physician Surgery 12/14/21 Raleigh Jay MD PhD [address] [place] [address] Radiation Oncologist Radiation Oncology 12/12/22 Ranjan Cazares MD [id number] [place] [address] Surgeon Thoracic Surgery 12/12/22 documented as of this encounter
--- OUTSIDE RECORDS SUMMARY | 2024-05-03 02:49 | XMS_ITS | Encounter Summary ---
Author Organization [facility] Healthcare Address [address] [place] [address] Care Team Providers Care Marine Air Ground Task Force Planners Name Role Phone Wilmer Taylor MD Unavailable [phone] Jeffrey Koch MD Unavailable [phone] Luz Lewis MD Unavailable [phone] Jay Argueta MD Primary Care Provider [phone] Raleigh Jay MD PhD Unavailable [phone] Ranjan Cazares MD Unavailable [phone] Encounter Details Date Type Department Care Team (Late st Contact Info) Description 08/15/2023 Telephone 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 There was also some focal uptake in the right mediastinum near the site of her previous RUL lobectomy, but no clear CT correlate on my review. We will discuss these findings at [facility], but my current inclination is to observe for now. Otherwise, no other areas of abnormal FDG uptake. 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 I recommended consideration of empiric SBRT and the the patient's daughter was in agreement. She will discuss with her moment if in agreement we will plan to see her back for CT simulation and subsequent treatments who are left upper lobe. documented in this encounter Plan of Treatment Not on file documented as of this encounter Visit Diagnoses Diagnosis Malignant neoplasm of upper lobe, right bronchus or lung (HCC)- Primary Malignant neoplasm of lower lobe, right bronchus or lung (HCC) Malignant neoplasm of upper lobe, left bronchus or lung (HCC) documented in this encounter Care Teams [employer] Task Force Planners Relationship Specialty Start Date End Date Jay Argueta MD [address] [place] [address] PCP - General Family Practice 11/29/22 10/07/23 Wilmer Taylor MD [address] [facility] [address] [place] [address] Referring Physician Obstetrics and Gynecology 05/09/12 Jeffrey Koch MD [address] [place] [address] Consulting Physician Rheumatology 02/03/21 Luz Lewis MD [address] [place] [address] Referring Physician Surgery 12/14/21 Raleigh Jay MD PhD [address] [place] [address] Radiation Oncologist Radiation Oncology 12/12/22 Ranjan Cazares MD [id number] [place] [address] Surgeon Thoracic Surgery 12/12/22 documented as of this encounter
--- OUTSIDE RECORDS SUMMARY | 2024-05-03 02:50 | XMS_ITS | Encounter Summary ---
Author Organization [facility] Healthcare Address [address] [place] [address] Care Team Providers Care Access Control Officer Name Role Phone Wilmer Taylor MD Unavailable [phone] Jeffrey Koch MD Unavailable [phone] Luz Lewis MD Unavailable [phone] Jay Argueta MD Primary Care Provider [phone] Raleigh Jay MD PhD Unavailable [phone] Ranjan Cazares MD Unavailable [phone] Encounter Details Date Type Department Care Team (Late st Contact Info) Description 01/02/2023 Orders Only RAD ONC TREATMENTS Miscellaneous, Not [...] file 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 Gender Identity Not on file Sexual Orientation Not on file documented as of this encounter Plan of Treatment Not on file documented as of this encounter Procedures Procedure Name Priority Date/Time Associated Diagnosis Comments RAD ONC ARIA SESSION SUMMARY 01/02/2023 10:11 AM CDT documented in this encounter Results * RAD ONC ARIA SESSION SUMMARY (01/02/2023 10:11 AM CDT) Course Name [id number] ARIA Course Plan Date 12/20/2022 12:55 PM ARIA Elapsed Days 1 ARIA Treatment Start Date 01/01/2023 ARIA Treatment Site [id number] ARIA Dose Given To Date (cGy) 2,200 ARIA Session Dosage Given (cGy) 1,100 ARIA Plan ID SBRT RLL LUNG ARIA Fractions Treated 2 ARIA Prescribed Dose Per Fraction (cGy) 1,100 ARIA Prescribed Total Dose (cGy) 5,500 ARIA 01/02/2023 10:1 1 AM CDT us Not In File Miscellaneous RADIATION ONCOLOGY ORD ERABLES Final Result ARIA documented in this encounter Visit Diagnoses Not on filedocumented in this encounter Care Teams Access Control Officer Relationship Specialty Start Date End Date Jay Argueta MD [address] [place] [address] PCP - General Family Practice 11/29/22 10/07/23 Wilmer Taylor MD [address] [facility] [address] [place] [address] Referring Physician Obstetrics and Gynecology 05/09/12 Jeffrey Koch MD [address] [place] [address] Consulting Physician Rheumatology 02/03/21 Luz Lewis MD [address] [place] [address] Referring Physician Surgery 12/14/21 Raleigh Jay MD PhD [address] [place] [address] Radiation Oncologist Radiation Oncology 12/12/22 Ranjan Cazares MD [address] [facility] [id number] [place] [address] Surgeon Thoracic Surgery 12/12/22 documented as of this encounter
--- OUTSIDE RECORDS SUMMARY | 2024-05-03 02:50 | XMS_ITS | Encounter Summary ---
Author Organization [facility] Address [address] [facility] [address] [place] [address] Phone Care Team Providers Care Plater Helper Name Role Phone Wilmer Taylor MD Unavailable [phone] Jeffrey Koch MD Unavailable Luz Lewis MD Unavailable [phone] Sin Mcclure MD Primary Care Provider [phone] Encounter Details Date Type Department Care Team (Late st Contact Info) Description 10/31/[address] [facility] Surgery [address] [facility] [address] [place] [address] Telma Chong RMA Social History Tobacco Use Types Packs/Day Years Used Date Smoking Tobacco: Former Cigarettes 0.3 50 1 969 - 2015 Smokeless Tobacco: Never Alcohol Use Standard Drinks/Week Comments Never 0 (1 standard drink = 0.6 oz pur e alcohol) AUDIT-C Answer Date Recorded Q1: How often do you have a drink containing alc ohol? Monthly or less 06/07/2022 Q2: How many drinks containi ng alcohol do you have on a typical day when you are drinking? 1 or 2 06/07/2022 Q3: How often do you have si x or more drinks on one occasion? 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 They are aware of date, time and location documented in this encounter Plan of Treatment Not on file documented as of this encounter Visit Diagnoses Not on filedocumented in this encounter Care Teams Plater Helper Relationship Specialty Start Date End Date Sin Mcclure MD [address] [place] [address] PCP - General Internal Medicine 05/15/22 11/28/22 Wilmer Taylor MD [address] [address] Referring Physician Obstetrics and Gynecology 05/09/12 Jeffrey Koch MD [address] [place] [address] Consulting Physician Rheumatology 02/03/21 Luz Lewis MD [address] [place] [address] Referring Physician Surgery 12/14/21 documented as of this encounter
--- OUTSIDE RECORDS SUMMARY | 2024-05-03 02:50 | XMS_ITS | Encounter Summary ---
Author Organization [facility] Address [address] [facility] [address] [place] [address] Phone Care Team Providers Care Ore Crushing Dust Collector Name Role Phone Wilmer Taylor MD Unavailable [phone] Jeffrey Koch MD Unavailable [phone] Luz Lewis MD Unavailable Jay Argueta MD Primary Care Provider [phone] Encounter Details Date Type Department Care Team (Late st Contact Info) Description 11/29/2022 Telephone [facility] Surgery [address] [facility] [address] [place] [address] Telma Chong RMA Social History [...] more drinks on one occasion? Never 06/07/2022 Personal Safety Answer Date Recorded Have you ever been in or are you currently in a harmful physical or emotional relationship or is someone making you feel afraid or unsafe? 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 They are aware of date, time and location documented in this encounter Plan of Treatment Not on file documented as of this encounter Visit Diagnoses Not on filedocumented in this encounter Care Teams Ore Crushing Dust Collector Relationship Specialty Start Date End Date Jay Argueta MD [address] [place] [address] PCP - General Family Practice 11/29/22 10/07/23 Wilmer Taylor MD [address] [facility] [address] [place] [address] Referring Physician Obstetrics and Gynecology 05/09/12 Jeffrey Koch MD [address] [place] [address] Consulting Physician Rheumatology 02/03/21 Luz Lewis MD [address] [place] [address] Referring Physician Surgery 12/14/21 documented as of this encounter
--- OUTSIDE RECORDS SUMMARY | 2024-05-03 02:50 | XMS_ITS | Encounter Summary ---
Author Organization [facility] Address [address] [facility] [address] [place] [address] Phone Care Team Providers Care Tow Operator Name Role Phone Wilmer Taylor MD Unavailable [phone] Jeffrey Koch MD Unavailable [phone] Luz Lewis MD Unavailable [phone] Jay Argueta MD Primary Care Provider [phone] Reason for Referral * Procedure (Routine) - Closed Specialty Diagnoses / Procedures Referred By Contac t Referred To Contact Diagnoses Lung nodule Procedures Pulmonary Function Test -[facility] Adult PFT Lab- CAM-8D; Spirometry with Bronchodilator, DLCO; Lung volumes; Pleth with Airway Resistance Ranjan Cazares MD [address] [facility] [address] [place] [address] Phone: tel: fax: Referral ID Status Reason Start Date Expiration Date Visits Re quested Visits Authorized [id number] Closed 11/29/2022 12/29/2023 1 1 Encounter Details Date Type Department Care Team (Late Contact Info) Description 11/29/2022 Orders Only 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 Gender Identity Not on file Sexual Orientation Not on file documented as of this encounter Plan of Treatment Not on file documented as of this encounter Results * Pulmonary Function Test - (12/07/2022 1:47 PM CDT) FVC PRE 2.18 L [facility] FVC %PRE PRED 82 % [facility] FEV1 PRE 1.17 L [facility] FEV1 %PRE PRED 57 % [facility] FEV1/FVC PRE 53.7 % [facility] FRC PL PRE 2.14 L [facility] FRC PL %PRE PRED 76 % [facility] RV PRE 1.45 L [facility] RV %PRE PRED 65 % [facility] TLC PRE 3.68 L [facility] TLC %PRE PRED 75 % [facility] DLCO PRE 7.3 ml/min/mmH g [facility] DLCO %PRE PRED 39 % [facility] Anatomical Region Laterality Modality PFT 12/07/2022 12:2 8 PM CDT Impressions 12/07/2022 12:58 PM CDT 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 There is moderate impairment of alveolar gas exchange by DLCO. The attending pulmonary physician certifies a physician presence in the [facility] Suite during the administration of aerosolized bronchodilator. The attending pulmonary physician certifies that he/she has reviewed and interpreted the graphic and numerical data of this pulmonary function study and agrees with the written final report. The lower limit of normal for PO2 and %HbO2 is age dependent. However, the [facility] Pulmonary Function Laboratory defines hypoxemia as a PO2 <55 or a %HbO2 <89. Narrative 12/07/2022 12:58 PM CDT PFT performed at:->[facility] Adult PFT Lab- CAM-8D Procedure:->Spirometry with Bronchodilator Procedure:->DLCO DLCO:->Lung volumes Lung Volumes via:->Pleth with Airway Resistance Pulmonary Function Test Interpretation SPIROMETRY: There is a decrease in expiratory airflow at middle and low lung volumes. FLOW VOLUME LOOPS: The inspiratory loop is appropriate for the expiratory flow abnormality. LUNG VOLUMES: TLC measured by plethysmography is decreased. DIFFUSING CAPACITY: The diffusing capacity is decreased. A decreased diffusing capacity may be due to loss of pulmonary capillary surface area. Causes inctude pulmonary fibrosis (altered MARICRUZ relationship), pulmonary vascutar disease, emphysema, or interstitial pneumonitis. Ranjan Cazares MD PFT ORDERABLES Final Result documented in this encounter Visit Diagnoses Diagnosis Lung nodule- Primary Other diseases of lung, not elsewhere classified Lung nodule Other diseases of lung, not elsewhere classified documented in this encounter Care Teams Tow Operator Relationship Specialty Start Date End Date Jay Argueta MD [address] [place] [address] PCP - General Family Practice 11/29/22 10/07/23 Wilmer Taylor MD [address] [facility] [address] [place] [address] Referring Physician Obstetrics and Gynecology 05/09/12 Jeffrey Koch MD [address] [place] [address] Consulting Physician Rheumatology 02/03/21 Lzu Lewis MD [address] [place] [address] Referring Physician Surgery 12/14/21 documented as of this encounter
--- OUTSIDE RECORDS SUMMARY | 2024-05-03 02:50 | XMS_ITS | Encounter Summary ---
Author Organization [facility] Healthcare Address [address] [place] [address] Care Team Providers Care Territory Account Representative Name Role Phone Wilmer Taylor MD Unavailable [phone] Jeffrey Koch MD Unavailable [phone] Luz Lewis MD Unavailable [phone] Jay Argueta MD Primary Care Provider [phone] Encounter Details Date Type Department Care Team (Late st Contact Info) Description 12/04/2022 Telephone [facility] Advanced [facility] Radiation Oncology [address] [facility] [place] [address] Raleigh Jay MD PhD [address] [place] [address] Social History Tobacco Use Types Packs/Day Years [...] on file 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 Jay on 12/12 at 10 am [employer]. Patient records [facility]. Radiation Oncology Consult Intake Additional Notes Insurance Carrier / Plan? [employer] In Network / Out of Network? [place] Yes/No Physician Additional Notes Do you have a primary care physician? YES Jay Argueta MD Have you been seen by a cancer physician? - Have you seen a radiation doctor? - Have you seen a surgeon for your cancer? - Are there any other specialists in your care? - Diagnosis Additional Notes Diagnosis LUNG Yes/No Date(s) Location(s) Biopsy performed? YES 11/24/22 [facility] Did you have a CT scan? YES 10/31/22 [facility] Did you have a PET scan? YES 11/10/22 [facility] Did you have an (MRI) scan? - Did you receive chemotherapy? NO Did you receive radiation? NO Since your cancer diagnosis, have you been in the hospital or had surgery? - documented in this encounter Plan of Treatment Not on file documented as of this encounter Visit Diagnoses Not on filedocumented in this encounter Care Teams Territory Account Representative Relationship Specialty Start Date End Date Jay Argueta MD [address] [place] [address] PCP - General Family Practice 11/29/22 10/07/23 Wilmer Taylor MD [address] [facility] [address] [place] [address] Referring Physician Obstetrics and Gynecology 05/09/12 Jeffrey Koch MD [address] [place] [address] Consulting Physician Rheumatology 02/03/21 Luz Lewis MD [address] [place] [address] Referring Physician Surgery 12/14/21 documented as of this encounter
--- OUTSIDE RECORDS SUMMARY | 2024-05-03 02:50 | XMS_ITS | Encounter Summary ---
Author Organization [facility] Healthcare Address [address] [place] [address] Care Team Providers Care Bench Mover Name Role Phone Wilmer Taylor MD Unavailable [phone] Jeffrey Koch MD Unavailable [phone] Luz Lewis MD Unavailable [phone] Jay Argueta MD Primary Care Provider [phone] Raleigh Jay MD PhD Unavailable [phone] Ranjan Cazares MD Unavailable [phone] Encounter Details Date Type Department Care Team (Late st Contact Info) Description 01/01/2023 10:00 AM CDT Treatment [facility] Radiation Oncology [address] [place] [address] Yehuda Tse MD PhD [address] [facility] [id number] [address] Social History Tobacco Use Types Packs/Day Years [...] on file 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 Gender Identity Not on file Sexual Orientation Not on file documented as of this encounter Plan of Treatment Not on file documented as of this encounter Visit Diagnoses Not on filedocumented in this encounter Care Teams Bench Mover Relationship Specialty Start Date End Date Jay Argueta MD [address] [place] [address] PCP - General Family Practice 11/29/22 10/07/23 Wilmer Taylor MD [address] [address] Referring Physician Obstetrics and Gynecology 05/09/12 Jeffrey Koch MD [address] [place] [address] Consulting Physician Rheumatology 02/03/21 Luz Lewis MD [address] [place] [address] Referring Physician Surgery 12/14/21 Raleigh Jay MD PhD [address] [place] [address] Radiation Oncologist Radiation Oncology 12/12/22 Ranjan Cazares MD [address] [facility] [address] [place] [address] Surgeon Thoracic Surgery 12/12/22 documented as of this encounter
--- OUTSIDE RECORDS SUMMARY | 2024-05-03 02:50 | XMS_ITS | Encounter Summary ---
Author Organization [facility] Healthcare Address [address] [place] [address] Care Team Providers Care Animal Assistant Name Role Phone Wilmer Taylor MD Unavailable [phone] Jeffrey Koch MD Unavailable [phone] Luz Lewis MD Unavailable [phone] Jay Argueta MD Primary Care Provider [phone] Raleigh Jay MD PhD Unavailable [phone] Ranjan Cazares MD Unavailable [phone] Encounter Details Date Type Department Care Team (Late st Contact Info) Description 01/03/2023 10:00 AM CDT Treatment [facility] Radiation Oncology [address] [place] [address] Raleigh Jay MD PhD [address] [place] [address] Social History Tobacco Use Types Packs/Day Years [...] on file 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 Gender Identity Not on file Sexual Orientation Not on file documented as of this encounter Plan of Treatment Not on file documented as of this encounter Visit Diagnoses Not on filedocumented in this encounter Care Teams Animal Assistant Relationship Specialty Start Date End Date Jay Argueta MD [address] [place] [address] PCP - General Family Practice 11/29/22 10/07/23 Wilmer Taylor MD [facility] [address] [address] Referring Physician Obstetrics and Gynecology 05/09/12 Jeffrey Koch MD [address] [place] [address] Consulting Physician Rheumatology 02/03/21 Luz Lewis MD [address] [place] [address] Referring Physician Surgery 12/14/21 Raleigh Jay MD PhD [address] [place] [address] Radiation Oncologist Radiation Oncology 12/12/22 Ranjan Cazares MD [address] [facility] [address] [place] [address] Surgeon Thoracic Surgery 12/12/22 documented as of this encounter
--- OUTSIDE RECORDS SUMMARY | 2024-05-03 02:50 | XMS_ITS | Encounter Summary ---
Author Organization [facility] Healthcare Address [address] [place] [address] Care Team Providers Care Town Marshal Name Role Phone Wilmer Taylor MD Unavailable [phone] Jeffrey Koch MD Unavailable [phone] Luz Lewis MD Unavailable Sin Mcclure MD Primary Care Provider [phone] Encounter Details Date Type Department Care Team (Latest Contact Info) Description 10/31/2022 12:04 PM CDT - 10/31/2022 11:59 PM CDT Hospital Encounter [facility] [place], [place] [id number] Diagnosis unknown Discharge Disposition: Discharge to home or self [...] on file 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 09/14/2021 3 methocarbamoL (ROBAXIN) 750 mg tablet Take 1 tablet (750 mg total) by mouth 4 (four) times a day 28 tablet 09/14/2021 3 methotrexate 2.5 mg tabletIndication s:Rheumatoid Arthritis Take 5 tablets (12.5 mg total) by mouth every 7 days Every Sunday 60 tablet 1 09/22/2022 3 nicotine (NICODERM CQ) 21 mgIndications:Sm oking Cessation Place 1 patch on the skin daily 3 traMADoL (ULTRAM) 50 mg tablet Take 1 tablet (50 mg total) by mouth every 4 (four) hours as needed for pain 20 tablet 06/07/2022 3 documented as of this encounter Discharge Disposition Disposition Code Departure Means Destination Discharge to home or self care documented in this encounter Plan of Treatment Not on file documented as of this encounter Procedures Procedure Name Priority Date/Time Associated Diagnosis Comments CT BODY OUTSIDE CONSULT Routine 10/31/2022 12:04 PM CDT Diagnosis unknown documented in this encounter Results * CT Body Outside Consult (10/31/2022 12:04 PM CDT) Anatomical Region Laterality Modality Body N/A Computed Tomogra phy 10/31/2022 12:2 1 PM CDT Addenda Addendum by Frankie Alejandro MD on 10/31/2022 3:36 PM CDT ADDENDUM Addendum issued at 10/31/2022 3:35 PM by Flavia. There is a new 1.2 cm nodule in the anterior right lung base on image 90 measuring 1.[address] or short term interval follow up for further evaluation. ?? The results were communicated via [employer] in basket to Dr. Kozower. Electronically signed by: Frankie Alejandro M.D. Impressions 10/31/2022 12:21 PM CDT 1. ??Changes from right upper lobectomy without evidence of recurrent disease. 2. ??Emphysema and lower lobe predominant fibrosis. The findings, conclusions and recommendations within this report do not replace the initial findings, conclusions ??and recommendations made at the facility where the study was performed based upon the imaging and clinical condition at that time. ??Comparison with the prior report and clinical history is necessary. ??The provided images may or may not represent the [place] source data set and thus may contain changes that may lower the accuracy of this second-opinion interpretation. Electronically signed by: Frankie Alejandro M.D. Narrative 10/31/2022 12:21 PM CDT EXAMINATION: RADIOLOGY CONSULTATION ON OUTSIDE IMAGING STUDY STUDY INITIALLY PERFORMED: 10/30/2022 at [facility]. TYPE OF STUDY: Multiple CT images of the chest with intravenous contrast are provided at the time of this interpretation. CONTRAST ROUTE: Intravenous contrast The protocol was adequate to address the clinical question. The outside final report was not available at the time of this second opinion interpretation. TYPE OF CONSULTATION: Consult on outside imaging study with images submitted through [employer] DATE OF CONSULTATION: 10/31/2022 12:15 PM HISTORY: Lung cancer COMPARISON: 04/10/2022 FINDINGS: There are changes from a right upper lobectomy. ??Emphysematous changes are seen throughout the lungs. ??There is apparent fibrosis within both lower lobes as reference by reticulation. ??The overall appearance is unchanged. ??There are no new pulmonary nodules or masses. There is no supraclavicular, axillary, mediastinal, or hilar lymphadenopathy. ??There are a few subcentimeter mediastinal and right supraclavicular lymph nodes, unchanged. ??There is mild dilatation and thickening of the left ventricle. ??No pericardial effusion. ??Limited evaluation of the upper abdomen is grossly normal. Procedure Note Frankie Alejandro MD - 10/31/2022 EXAMINATION: RADIOLOGY CONSULTATION ON OUTSIDE IMAGING STUDY STUDY INITIALLY PERFORMED: 10/30/2022 at [facility]. TYPE OF STUDY: Multiple CT images of the chest with intravenous contrast are provided at the time of this interpretation. CONTRAST ROUTE: Intravenous contrast The protocol was adequate to address the clinical question. The outside final report was not available at the time of this second opinion interpretation. TYPE OF CONSULTATION: Consult on outside imaging study with images submitted through [facility] DATE OF CONSULTATION: 10/31/2022 12:15 PM HISTORY: Lung cancer COMPARISON: 04/10/2022 FINDINGS: There are changes from a right upper lobectomy. Emphysematous changes are seen throughout the lungs. There is apparent fibrosis within both lower lobes as reference by reticulation. The overall appearance is unchanged. There are no new pulmonary nodules or masses. There is no supraclavicular, axillary, mediastinal, or hilar lymphadenopathy. There are a few subcentimeter mediastinal and right supraclavicular lymph nodes, unchanged. There is mild dilatation and thickening of the left ventricle. No pericardial effusion. Limited evaluation of the upper abdomen is grossly normal. IMPRESSION: 1. Changes from right upper lobectomy without evidence of recurrent disease. 2. Emphysema and lower lobe predominant fibrosis. The findings, conclusions and recommendations within this report do not replace the initial findings, conclusions and recommendations made at the facility where the study was performed based upon the imaging and clinical condition at that time. Comparison with the prior report and clinical history is necessary. The provided images may or may not represent the [place] source data set and thus may contain changes that may lower the accuracy of this second-opinion interpretation. Electronically signed by: Frankie Alejandro M.D. Ranjan Cazares MD IMG CT PROCEDURES Edit ed Result - Final documented in this encounter Visit Diagnoses Diagnosis Diagnosis unknown documented in this encounter Care Teams Town Marshal Relationship Specialty Start Date End Date Sin Mcclure MD [address] [place] [address] PCP - General Internal Medicine 05/15/22 11/28/22 Wilmer Taylor MD [facility] [address] [place] [address] Referring Physician Obstetrics and Gynecology 05/09/12 Jeffrey Koch MD [address] [place] [address] Consulting Physician Rheumatology 02/03/21 Luz Lewis MD [address] [place] [address] Referring Physician Surgery 12/14/21 documented as of this encounter
--- OUTSIDE RECORDS SUMMARY | 2024-05-03 02:50 | XMS_ITS | Encounter Summary ---
Author Organization [facility] Address [address] [facility] [address] [place] [address] Phone Care Team Providers Care Care Partner Name Role Phone Wilmer Taylor MD Unavailable [phone] Jeffrey Koch MD Unavailable [phone] Luz Lewis MD Unavailable [phone] Sin Mcclure MD Primary Care Provider [phone] Reason for Referral * Consultation (Routine) - Closed Specialty Diagnoses / Procedures Referred By Contac t Referred To Contact Radiation Oncology Diagnoses Lung nodule Ranjan Cazares MD [address] [facility] [address]22 [place] [address] Phone: tel: fax: Guanakito Huddleston MD [address] [facility] [address] [place] [address] Phone: tel: fax: Referral ID Status Reason Start Date Expiration Date V isits Requested Visits Authorized [id number] Closed Specialty Services Required 11/28/2022 12/28/2023 1 1 Question Answer Please select the performing region: [facility] [[id number]] Please select the performing department: [facility] RAD ONC [[id number]] Is this referral for [facility]? No To provider: GUANAKITO HUDDLESTON [[id number]] # of visits: 1 Does the patient have a diagnosis of a Head and Neck cancer? No Comments Can you schedule patient later morning or afternoon on 12/07? I am going to coordinate a visit with Dr. Cazares and PFTs same day. Thank you! 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 Gender Identity Not on file Sexual Orientation Not on file documented as of this encounter Plan of Treatment Scheduled Referrals Name Type Priority Associated Diagnoses Order Schedule Ambulatory referral to Radiation Oncology Outpatient Referral Routine Lung nodule Expected: 12/12/2022 (Approximate), Expires: 11/29/2023 documented as of this encounter Visit Diagnoses Diagnosis Lung nodule- Primary Other diseases of lung, not elsewhere classified documented in this encounter Care Teams Care Partner Relationship Specialty Start Date End Date Sin Mcclure MD [address] [place] [address] PCP - General Internal Medicine 05/15/22 11/28/22 Wilmer Taylor MD [address] [facility] [address] [place] [address] Referring Physician Obstetrics and Gynecology 05/09/12 Jeffrey Koch MD [address] [place] [address] Consulting Physician Rheumatology 02/03/21 Luz Lewis MD [address] [place] [address] Referring Physician Surgery 12/14/21 documented as of this encounter
--- OUTSIDE RECORDS SUMMARY | 2024-05-03 02:50 | XMS_ITS | Encounter Summary ---
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 Gender Identity Not on file Sexual Orientation Not on file documented as of this encounter Plan of Treatment Not on file documented as of this encounter Procedures Procedure Name Priority Date/Time Associated Diagnosis Comments RAD ONC ARIA SESSION SUMMARY 01/03/2023 10:08 AM CDT documented in this encounter Results * RAD ONC ARIA SESSION SUMMARY (01/03/2023 10:08 AM CDT) Course Name [id number] ARIA Course Plan Date 12/20/2022 12:55 PM ARIA Elapsed Days 2 ARIA Treatment Start Date 01/01/2023 ARIA Treatment Site [id number] ARIA Dose Given To Date (cGy) 3,300 ARIA Session Dosage Given (cGy) 1,100 ARIA Plan ID SBRT RLL LUNG ARIA Fractions Treated 3 ARIA Prescribed Dose Per Fraction (cGy) 1,100 ARIA Prescribed Total Dose (cGy) 5,500 ARIA 01/03/2023 10:0 8 AM CDT us Not In File Miscellaneous RADIATION ONCOLOGY ORD ERABLES Final Result ARIA documented in this encounter Visit Diagnoses Not on filedocumented in this encounter Care Teams Anesthetist Relationship Specialty Start Date End Date Jay Argueta MD [address] [place] [address] PCP - General Family Practice 11/29/22 10/07/23 Wilmer Taylor MD [address] [facility] [address] [place] [address] Referring Physician Obstetrics and Gynecology 05/09/12 Jeffrey Koch MD [address] [place] [address] Consulting Physician Rheumatology 02/03/21 Luz Lewis MD [address] [place] [address] Referring Physician Surgery 12/14/21 Raleigh Jay MD PhD [address] [place] [address] Radiation Oncologist Radiation Oncology 12/12/22 Ranjan Cazares MD [address] [facility] [id number] [place] [address] Surgeon Thoracic Surgery 12/12/22 documented as of this encounter
--- OUTSIDE RECORDS SUMMARY | 2024-05-03 02:50 | XMS_ITS | Encounter Summary ---
Author Organization [facility] Healthcare Address [address] [place] [address] Care Team Providers Care Medical Apparatus Model Maker Name Role Phone Wilmer Taylor MD Unavailable [phone] Jeffrey Koch MD Unavailable [phone] Luz Lewis MD Unavailable [phone] Sin Mcclure MD Primary Care Provider [phone] Encounter Details Date Type Department Care Team (Latest Contact Info) Description 11/10/2022 12:19 PM CDT - 11/10/2022 11:59 PM CDT Hospital Encounter [facility] [address] [place] [address] [id number] Diagnosis unknown Discharge Disposition: Discharge to home [...] on file 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 1. Intensely hypermetabolic right lower lobe pleural-based pulmonary nodule is highly suspicious for pulmonary malignancy. 2. Moderately FDG avid right hilar and aortopulmonary lymph nodes are concerning for regional wil involvement. 3. No PET/CT evidence of distant metastatic disease. The findings, conclusions and recommendations within this report do not replace the initial findings, conclusions ??and recommendations made at the facility where the study was performed based upon the imaging and clinical condition at that time. ??Comparison with the prior report and clinical history is necessary. ??The provided images may or may not represent the [place] source data set and thus may contain changes that may lower the accuracy of this second-opinion interpretation. Dictated by: Abbey Burleson M.D. The radiology attending physician has personally reviewed this study, and had reviewed and/or edited this written report and agrees with it. Electronically signed by: Iain Moser M.D. Narrative 11/10/2022 4:58 PM CDT EXAMINATION: RADIOLOGY CONSULTATION ON OUTSIDE IMAGING STUDY STUDY INITIALLY PERFORMED: 11/07/2022, images acquired at [facility]. ?? TYPE OF STUDY: FDG-PET/CT. The images available for review consisted of axial attenuation-corrected and uncorrected PET images and axial CT images. Oral contrast administration was not performed. Intravenous contrast administration was not performed. The total scanned area was skull base to the proximal thighs. The mean liver SUV (reported for coding quality coordinator purposes) is 3.3. The study was interpreted on the [employer] workstation. The protocol was adequate to address the clinical question. The outside final report was available at the time of this second opinion interpretation. 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 ??Clinical concern for primary pulmonary intensity. Colonoscopic biopsy of perianal lesion on 12/14/2021 was in favor of high-grade squamous intraepithelial lesion. ??The study is requested for diagnosis. Initial treatment strategy. COMPARISON: Chest CT scan on 10/30/2022 and 08/31/2021 FINDINGS: There is an intensely hypermetabolic well-defined 1.4 x 1 cm pleural-based right lower lobe pulmonary nodule with a maximum SUV of 8.3 on image 96. ??There are two moderately hypermetabolic right hilar lymph nodes maximum SUV up to 4.4. There is an aortopulmonary node on image 88 with moderate FDG uptake and a maximum SUV of 5. Mildly FDG inferior predominant interlobular septal thickening is consistent with known interstitial lung disease in the setting of rheumatoid arthritis. ?? Markedly FDG avid right parotid gland mass measuring 2.2 by centimeter consistent with biopsy-proven Warthin tumor. Additional CT findings: Mild age-related brain volume loss. Bilateral lens placement. Diminutive thyroid. ??Moderate left anterior descending and right coronary artery calcification. ??Calcified plaques along the aortic arch, descending aorta, and its branches. Diverticulosis. ??Left hilar, pulmonary, and the splenic old granulomatous disease. ??Postsurgical changes of right upper lobectomy. ??Diffuse pulmonary emphysema. ??Multilevel spinal spondylosis. Emphysema. Procedure Note Iain Moser MD - 11/10/2022 EXAMINATION: RADIOLOGY CONSULTATION ON OUTSIDE IMAGING STUDY STUDY INITIALLY PERFORMED: 11/07/2022, images acquired at [facility]. TYPE OF STUDY: FDG-PET/CT. The images available for review consisted of axial attenuation-corrected and uncorrected PET images and axial CT images. Oral contrast administration was not performed. Intravenous contrast administration was not performed. The total scanned area was skull base to the proximal thighs. The mean liver SUV (reported for coding quality coordinator purposes) is 3.3. The study was interpreted on the [employer] workstation. The protocol was adequate to address the clinical question. The outside final report was available at the time of this second opinion interpretation. 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 Clinical concern for primary pulmonary intensity. Colonoscopic biopsy of perianal lesion on 12/14/2021 was in favor of high-grade squamous intraepithelial lesion. The study is requested for diagnosis. Initial treatment strategy. COMPARISON: Chest CT scan on 10/30/2022 and 08/31/2021 FINDINGS: There is an intensely hypermetabolic well-defined 1.4 x 1 cm pleural-based right lower lobe pulmonary nodule with a maximum SUV of 8.3 on image 96. There are two moderately hypermetabolic right hilar lymph nodes maximum SUV up to 4.4. There is an aortopulmonary node on image 88 with moderate FDG uptake and a maximum SUV of 5. Mildly FDG inferior predominant interlobular septal thickening is consistent with known interstitial lung disease in the setting of rheumatoid arthritis. Markedly FDG avid right parotid gland mass measuring 2.2 by centimeter consistent with biopsy-proven Warthin tumor. Additional CT findings: Mild age-related brain volume loss. Bilateral lens placement. Diminutive thyroid. Moderate left anterior descending and right coronary artery calcification. Calcified plaques along the aortic arch, descending aorta, and its branches. Diverticulosis. Left hilar, pulmonary, and the splenic old granulomatous disease. Postsurgical changes of right upper lobectomy. Diffuse pulmonary emphysema. Multilevel spinal spondylosis. Emphysema. IMPRESSION: 1. Intensely hypermetabolic right lower lobe pleural-based pulmonary nodule is highly suspicious for pulmonary malignancy. 2. Moderately FDG avid right hilar and aortopulmonary lymph nodes are concerning for regional wil involvement. 3. No PET/CT evidence of distant metastatic disease. The findings, conclusions and recommendations within this report do not replace the initial findings, conclusions and recommendations made at the facility where the study was performed based upon the imaging and clinical condition at that time. Comparison with the prior report and clinical history is necessary. The provided images may or may not represent the [place] source data set and thus may contain changes that may lower the accuracy of this second-opinion interpretation. Dictated by: Abbey Burleson M.D. The radiology attending physician has personally reviewed this study, and had reviewed and/or edited this written report and agrees with it. Electronically signed by: Iain Moser M.D. Ranjan Cazares MD IMG PET PROCEDURES Fin al Result documented in this encounter Visit Diagnoses Diagnosis Diagnosis unknown documented in this encounter Care Teams Medical Apparatus Model Maker Relationship Specialty Start Date End Date Sin Mcclure MD [address] [place] [address] PCP - General Internal Medicine 05/15/22 11/28/22 Wilmer Taylor MD [address] [place] [address] Referring Physician Obstetrics and Gynecology 05/09/12 Jeffrey Koch MD [address] [place] [address] Consulting Physician Rheumatology 02/03/21 Luz Lewis MD [address] [place] [address] Referring Physician Surgery 12/14/21 documented as of this encounter
--- OUTSIDE RECORDS SUMMARY | 2024-05-03 02:50 | XMS_ITS | Encounter Summary ---
Author Organization [facility] Healthcare Address [address] [place] [address] Care Team Providers Care Powered Bridge Specialist Name Role Phone Wilmer Taylor MD Unavailable [phone] Jeffrey Koch MD Unavailable [phone] Luz Lewis MD Unavailable [phone] Sin Mcclure MD Primary Care Provider [phone] Reason for Referral * Pulmonology (Routine) - Closed Specialty Diagnoses / Procedures Referred By [facility] Referred To Contact Pulmonology Diagnoses Hilar adenopathy Procedures Bronchoscopy -[facility] Interventional Pulm; Bronchoscopy, EBUS LINEAR Callum Hinton MD Phone: tel: fax: Referral ID Status Reason Start Date Expiration Date Visits Re quested Visits Authorized [id number] Closed 11/13/2022 12/13/2023 1 1 Reason for Visit * Reason Comments Bronchoscopy * Pulmonology (Routine) - Closed Specialty Diagnoses / Procedures Referred By [facility] Referred To Contact Pulmonology Diagnoses Hilar adenopathy Procedures Bronchoscopy -[facility] Interventional Pulm; Bronchoscopy, EBUS LINEAR Callum Hinton Gilbert, MD Phone: tel: fax: Referral ID Status Reason Start Date Expiration Date Visits Re quested Visits Authorized [id number] Closed 11/13/2022 12/13/2023 1 1 Encounter Details Date Type Department Care Team (Latest Contact Info) Description 11/24/2022 11:09 AM CDT - 11/24/2022 11:59 PM CDT Hospital Encounter [facility] Interventional Pulmonology [address] [place] [address] Hilar adenopathy Discharge Disposition: Discharge to home or self [...] on file Legal Sex Female 10:10 AM [employer] Gender Identity Not on file Sexual Orientation Not on file documented as of this encounter Last Filed Vital Signs Vital Sign Reading Time Taken Comments Blood Pressure 117/68 11/24/2022 2:12 PM CDT Pulse 63 11/24/2022 2:12 PM CDT Temperature 36.4 ??C (97.5 ??F) 11/24/2022 1:20 PM CD T Respiratory Rate 15 11/24/2022 2:12 PM CDT Oxygen Saturation 92% 11/24/2022 2:12 PM CDT Inhaled Oxygen Concentration - - Weight 66.2 kg (146 lb) 11/24/2022 12:11 PM CDT Height 162.6 cm (5' 4 ) 11/24/2022 12:11 PM CDT Body Mass Index 25.06 11/24/2022 12:11 PM CDT documented in this encounter Discharge Instructions * Patient Instructions* Park Call, DIGNA - 11/24/2022 12:30 PM CDT Interventional Pulmonology Post Bronchoscopy Instructions - Patient Family Education THE PROCEDURE YOU HAD TODAY WAS A BRONCHOSCOPY. The sedation medicine you received today can stay in your body for up to 24 hours You may have: Short-term memory loss, such as loss of memory from the procedure or things that happen shortly afterwards. Feeling drowsy or sleepy Feeling dizzy or lightheaded Nausea (sick to your stomach) Headache For the next 24 hours after your procedure Do NOT drive a car or operate heavy machinery. You will need someone to drive you home today Do NOT drink alcohol Do NOT smoke Do NOT make important decisions or sign any legal papers Do NOT stay by yourself. Stay with a responsible adult tonight Do NOT bathe or shower until tomorrow Be careful when standing, walking, changing positions, or using steps Slowly ease into regular activities. You may resume work or exercise as directed by your doctor. When you start eating, try liquids first and slowly progress to a light meal You may resume your current medications as diected by your doctor The following symptoms are common 24 to 48 hours after a bronchoscopy You may cough up small amounts of dark red, old blood Your throat may be sore for 2 or more days. Try soups, Jell-O, and ice-cream until it feels better You may develop a fever. Use Tylenol (acetaminophen) as directed on the bottle or as directed by your primary care provider for fever. Please call the [facility] Interventional Pulmonology Department at , Sunday through Sunday 8:30am to 4:30pm Or, go to the nearest emergemcy department if you have. Fever that lasts more than 2 days or is over 100 degrees Fahrenheit Any shortness of breath Chest pain or tightness in the chest Coughing up large amounts of blood meaning more than 1-2 teaspoons If you had fluid or tissue samples sent today for testing, you should receive a call from our medical team about your results. Please call if you have not been contacted within 5 business days. If this is an emergency, call 911. If you are unable to speak to the staff during normal business hours, please call and ask for the Acute Specialist crm consultant. I have received and understand these instructions and my questions were answered. / / ____: Date Time Signature of Patient OR Person Authorized to Sign/Relationship Printed Name / / ____: Date Time Nurse Signature Printed Name documented in this encounter Medications at Time of Discharge [...] mg total) by mouth daily 11/08/2022 omega 3-jnd-ujq-fish oil 100-160-1,000 mg capsuleIndicatio ns:hypertriglyce ridemia Take [...] care doctor for medication management. 09/14/2021 3 methotrexate 2.5 mg tabletIndication s:Rheumatoid Arthritis Take 5 tablets (12.5 mg total) by mouth every 7 days Every Sunday 60 tablet 1 09/22/2022 3 traMADoL (ULTRAM) 50 mg tablet Take 1 tablet (50 mg total) by mouth every 4 (four) hours as needed for pain 20 tablet 06/07/2022 3 documented as of this encounter Discharge Disposition Disposition Code Departure Means Destination Discharge to home or self care documented in this encounter Procedure Notes * Callum Hinton MD - 11/24/2022 12:20 PM CDTAssociated Order(s): BRONCHOSCOPY [facility] Interventional Pulmonary Patient Name: Darrion Guillory Procedure Date: 11/24/2022 12:20 PM Date of : 1950 Admit Type: Outpatient Age: 72 Room: ROOM 1 Gender: Female Note Status: Finalized Procedure: Bronchoscopy EBUS Indications: Adenopathy Providers: Callum Hinton M.D. Referring MD: Callum Hinton M.D. Medicines: Lidocaine 1% applied to cords 10 mL, Lidocaine 1% applied to the tracheobronchial tree 30 mL, Fentanyl 150 mcg IV, Midazolam 6 mg IV Complications: No immediate complications Procedure: After obtaining informed consent, the Bronchoscope was introduced through the LMA and advanced to the cords Estimated Blood Loss: Estimated blood loss: none. Findings: 1. Airway Inspection The laryngeal mask airway is in good position. The vocal cords appear normal. The subglottic space is normal. The trachea is of normal caliber. The edvin is sharp. The tracheobronchial tree was examined to at least the first subsegmental level. Bronchial mucosa and anatomy are normal; there are no endobronchial lesions. There were thick secretions bilaterally which required therapeutic suctioning 2. Linear EBUS-TBNA -The scope was withdrawn and replaced with the EBUS bronchoscope to accomplish the ultrasound examination. -The Linear EBUS was advanced to the 11R lymph node station. There was a lymph node amenable to biopsy identified at this station. Transbronchial needle aspiration using a 22 gauge aspiration needle times 6 was performed at this location under continuous endobronchial ultrasound guidance -The Linear EBUS was advanced to the 4L lymph node station. There was not a lymph node amenable to biopsy at this location. -The Linear EBUS was advanced to the 4R lymph node station. There was not a lymph node amenable to biopsy at this location. -The Linear EBUS was advanced to the subcarinal ymph node station. There was a lymph node amenable to biopsy identified at this station. Transbronchial needle aspiration using a 22 gauge aspiration needle times 6 was performed at this location under continuous endobronchial ultrasound guidance Moderate Sedation: Moderate (conscious) sedation was administered by the nurse and supervised by the physician performing the procedure. The patient's oxygen saturation, heart rate, blood pressure and response to care were monitored. Impression: - EBUS-TBNA of mediastinal and hilar adenopathy Recommendation: - Await biopsy results. - Chest X-ray post-procedure. - Follow up with referring physician as previously scheduled. - Patient has a contact number available for emergencies. The signs and symptoms of potential delayed complications were discussed with the patient. Return to normal activities tomorrow. Written discharge instructions were provided to the patient. Attending Participation: I was present and participated during the entire procedure, including non-karimi portions. Callum Hinton M.D. 11/24/2022 1:17:39 PM Number of Addenda: 0 Note Initiated On: 11/24/2022 11:59 AM documented in this encounter Nursing Notes * Jonathan Guerrero RN - 11/24/2022 1:24 PM CDT Portable Chest X-Ray performed. PCXR read by Dr. Christian Hinton, No pneumothorax noted. Awaiting Discharge Home. * Jonathan Guerrero RN - 11/24/2022 1:21 PM CDT Report received from Ginna Viera RN s/p Bronchoscopy. See flowsheet for VS. Awaiting PCXR. * Naida Viera RN - 11/24/2022 1:15 PM CDT Bronchoscopy with FNA to 11Ri and [address] Deepak Peralta with Dr[address] Christian Hinton. Pt tolerated procedure well. Pt able to open eyes and follow commands prior to LMA removal. VS, Pete, ECGas noted. See provider notes and flowsheets for procedure details. Report to Park Call RN and Jonathan Guerrero RN in pre/post procedure area. Awaiting PCXR. LMA in: 1239, LMA out: 1312 Sedation given: IV Versed 6mg, IV Fentanyl 150mcg Fluids given: 150ml 0.9NS Fluoroscopy time: 0 minutes Drug Waste 1mg Versed and 50mcg Fentanyl wasted in pyxis with Radha Carr IMAGING NURSE [facility] Interventional Pulmonology Post Procedure Safety Debrief: [x]Post procedure nursing note to be completed by the assigned procedure registered nurse. [x]Procedure note to be completed by provider(s). [x]Post procedure orders complete in epic []Specimens, if applicable, processed accordingly by assigned respiratory therapist(s) if patient had a bronchoscopy. Processed accordingly by assigned registered nurse if the patient had a pleural procedure. RN not responsible for specimens. []Specimens, if applicable, labeled correctly accordingly by assigned respiratory therapist(s) if patient had a bronchoscopy. Labeled accordingly by assigned registered nurse if the patient had a pleural procedure. RN not responsible for specimens. [x]All relevant patient disposition requirements complete [x]All sharps protocols followed. If patient had bronchoscopy, sharps disposed of by assigned respiratory therapist(s). If patient had a pleural procedure, sharps disposed of by assigned registered nurse. [x]Post recovery location clearly defined: Interventional Pulmonology Pre/Post Sedan 1 * Naida Viera RN - 11/24/2022 12:26 PM CDT [facility] Interventional Pulmonology Safe to Proceed Checklist 11/24/2022 [x]Patient ID confirmed [x]Patient is having a bronchoscopy [x]Allergies and medication review complete [x]Consent obtained. If patient is receiving a pleural procedure, consent is obtained after site ultrasound has been completed. []Intended site marked if applicable [x] NA [x]Updated pre procedure and ASA note complete [x]30-day history and physical completed [] NA [x]Nursing pre-procedure documentation complete [x]Patient takes anticoagulation Aspirin Last dose 11/10 [] NA [x]Confirmed with patient, MAR, and procedural provider that all anticoagulation protocols have been followed. [] NA []Special equipment is present c-arm [] NA []Blood products available [x] NA [x]Appropriate SBAR handoff communication to procedure team has been completed [x]All relevant labs & diagnostic imaging has been reviewed and confirmed. [x]Confirmation from all involved intraprocedural caregivers that it is safe to proceed. Any special considerations/additional specific information? No (List below if applicable) documented in this encounter Miscellaneous Notes * Pre-Procedure Note - Deepak Peralta MD - 11/24/2022 12:30 PM CDT Pre-Procedure/Pre-Sedation Assessment HPI Ms. Guillory is a 72 y.o. female who is referred for evaluation of Lymphadenopathy. I have reviewed: allergies, current medications, past family history, past medical history, past social history, past surgical history, and problem list Physical Exam: Vitals: 11/24/22 1211 BP: 139/79 Pulse: 73 Resp: 22 Temp: 36.4 ??C (97.5 ??F) SpO2: 96% General: No acute distress Airway Mallampati Score: 2 HEENT: NC/AT, MMM, conjunctiva pink, sclera clear CV: RRR, normal S1 and S2, no M/R/G; JVD flat LUNGS: LCTAB, normal work of breathing GI: soft, NT/ND, BS+ EXT: warm; no clubbing, cyanosis, or edema SKIN: no rashes NEURO: AOx4 Labs (if pertinent). Lab Results Component Value Date WBC 8.7 10/09/2022 HGB 12.7 10/09/2022 HCT 37.7 10/09/2022 MCV 97.9 10/09/2022 LABPLAT 268 10/09/2022 Lab Results Component Value Date CREATININE 1.03 (H) 10/09/2022 No results found for: INR, PROTIME No results found for: PTT IMPRESSION and PLAN: Planned procedure: Bronchoscopy Reason for Procedure: Lymphadenopathy Pre-procedure Screen reviewed The patient has been NPO for the appropriate amount of time. Prescribed use of blood thinner: No Prescribed use of antiplatelet agent: No History of thrombocytopenia or bleeding disorder: No ASA SCORE: ASA 3 - Patient with moderate systemic disease with functional limitations SEDATION/ANESTHESIA PLAN: MODERATE sedation Informed Consent: Benefits, risks, alternatives discussed; patient/volunteer patient representative accepts/agrees tosedation/anesthesia plan and to the procedure. Patient has tolerated sedation in the past without complication. Post Procedure Monitoring Plan: Recovery * Plan of Care - Park Call RN - 11/24/2022 12:30 PM CDT Problem: Lack of Knowledge: Goal: Knowledge of diagnostic tests will improve Outcome: Adequate for Discharge Goal: Ability to verbalize follow-up procedures will improve Outcome: Adequate for Discharge documented in this encounter Plan of Treatment Not on file documented as of this encounter Procedures Procedure Name Priority Date/Time Associated Diagnosis Comments XR CHEST 1 VIEW IP Routine 11/24/2022 1:32 PM CDT CYTOLOGY Routine 11/24/2022 12:40 PM CDT BRONCHOSCOPY Routine 11/24/2022 12:20 PM CDT Hilar adenopathy documented in this encounter Results * XR Chest 1 View (11/24/2022 1:32 PM CDT) Anatomical Region Laterality Modality Body, Chest N/A Computed Radiogr aphy 11/24/2022 4:00 PM CDT Impressions 11/24/2022 5:18 PM CDT Comparison made to manager demand radiograph from CT on 10/30/2022. ??Interval resolution of right upper lobe surgical changes. ??Suture material noted along right middle lung. ??Right lower lobe opacity consistent with post bronchoscopy changes. ??Unchanged right mediastinal opacity representing lymphadenopathy better evaluated on recent positron emission tomography scan. ??The left lung is clear. ??No pneumothorax. ??No pleural effusion. ??Cardiomediastinal silhouette is stable. Dictated by: Ramana Menon MD The radiology attending physician has personally reviewed this study, and had reviewed and/or edited this written report and agrees with it. Electronically signed by: Justin Moralez M.D. Narrative 11/24/2022 5:18 PM CDT EXAMINATION: 1 view chest radiograph Procedure Note Justin Moralez MD - 11/24/2022 EXAMINATION: 1 view chest radiograph IMPRESSION: Comparison made to manager demand radiograph from CT on 10/30/2022. Interval resolution of right upper lobe surgical changes. Suture material noted along right middle lung. Right lower lobe opacity consistent with post bronchoscopy changes. Unchanged right mediastinal opacity representing lymphadenopathy better evaluated on recent positron emission tomography scan. The left lung is clear. No pneumothorax. No pleural effusion. Cardiomediastinal silhouette is stable. Dictated by: Ramana Menon MD The radiology attending physician has personally reviewed this study, and had reviewed and/or edited this written report and agrees with it. Electronically signed by: Justin Moralez M.D. us Deepak Peralta MD IMG XR PROCEDURES Final R esult * Cytology (11/24/2022 12:40 PM CDT) Fine needle aspirate (Lymph Node (Cytology)) 11/24/2022 12:40 PM CDT 11/24/2022 1:27 PM CDT Narrative PATHOLOGY [facility] - 11/27/2022 11:25 AM CDT EPIC results best viewed via link to PDF [facility] [place], [place] [id number] Note to Patients: This report may contain a detailed description of human tissue sent by a health care provider to the laboratory for pathologic evaluation. The content of this report is essential for diagnosis and may provide important critical findings. This information may be unfamiliar to patients to review without a medical professional present. It is advised that the patient review this report in the presence of a health care provider who can answer questions and explain the details. CYTOPATHOLOGY REPORT FINAL Patient Name: ?? DARRION GUILLORY Gender: ??F : ??1950 (Age: 72) Address: ??[address] [place] [address] ??[id number] Hospital #: ??[id number] Taken:11/24/2022 Received:11/24/2022 Reported: 11/27/2022 Patient Type: [facility] Ancillary ?? Service: UNKNOWN Location: Physician(s): ??Callum Hinton M.D. FINAL DIAGNOSIS A. ??Lymph node, 11R, endobronchial ultrasound-guided fine needle aspiration: ? - Negative for malignancy ? - Lymphoid component present B. ??Lymph node, subcarina, endobronchial ultrasound-guided fine needle aspiration: ? - Negative for malignancy ? - Lymphoid component present Comments The cell blocks (parts A and B) confirm the diagnoses. js2/11/27/2022 08:58 By this signature, I attest that the above diagnosis is based upon my personal examination of the slides(and/or other material indicated in the diagnosis). Abilio Johnson M.D. Report Electronically Reviewed and Signed Out By ??Abilio Johnson M.D. 11/27/2022 11:25:09 Hailee Suero, CT([facility]) Gross Description A. ??Lymph node, 11R, endobronchial ultrasound guided fine needle aspiration: ??3 Pap stained smear(s) and 3 Diff-Quik stained smear(s). ??1 cell block prepared from needle rinse tube. ?? B. ??Lymph node, subcarina, endobronchial ultrasound guided fine needle aspiration: ??3 Pap stained smear(s) and 3 Diff-Quik stained smear(s). ??1 cell block prepared from needle rinse tube. ??Aspirated by clinician. 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 ??Lymph node, 11R, endobronchial ultrasound guided fine needle aspiration: ?? Evaluation Episode 1 Overall Adequacy: Adequate Total Evaluation Episodes: 1 Preliminary Diagnosis: lymphoid component present B. ??Lymph node, subcarina, endobronchial ultrasound guided fine needle aspiration: ?? Evaluation Episode 1 Overall Adequacy: Adequate Total Evaluation Episodes: 1 Preliminary Diagnosis: lymphoid component present Abilio Johnson M.D., Ph.D. 11/24/2022 REPORT IMAGES AND SCANNED DOCUMENTS, IF INCLUDED, ONLY VIEWABLE IN PDF VERSION OF REPORT The performance characteristics of some immunohistochemical stains, in-situ hybridization and fluorescence in-situ hybridization tests and immunophenotyping by flow cytometry cited in this report (if any) were determined by the Surgical Pathology and Flow Cytometry Departments at [facility] as part of an ongoing software quality assurance specialist program and in compliance with federally mandated regulations drawn from the Clinical Laboratory Improvement Act of 1988 (CLIA '88). ??Some of these tests rely on the use of analyte specific reagents and are subject to specific labeling requirements by the US Food and Drug Administration. ??Such diagnostic tests may only be performed in a facility that is certified by the Department of Health and Human Services as a high complexity laboratory under CLIA '88. ??The FDA has determined that such clearance or approval is not necessary. ??This test is used for clinical purposes. ??It should not be regarded as investigational or for research. ??Nevertheless, federal rules concerning the medical use of analyte specific reagents require that the following disclaimer be attached to the report: ??This test was developed and its performance characteristics determined by the Surgical Pathology and Flow Cytometry Departments of [facility]. ??It has not been cleared or approved by the U. S. Food and Drug Administration. Callum Hinton MD LAB CYTOLOGY ORDERA BLES Final Result PATHOLOGY [facility] 3rd Floor [place], [place] [phone] * Bronchoscopy -[facility] Interventional Pulm; Bronchoscopy, EBUS LINEAR (11/24/2022 12:20 PM CDT) Anatomical Region Laterality Modality Other Narrative Procedure Note Callum Hinton MD - 11/24/2022 12:20 PM CDT [facility] Interventional Pulmonary Patient Name: Darrion Guillory Procedure Date: 11/24/2022 12:20 PM Date of : 1950 Admit Type: Outpatient Age: 72 Room: ROOM 1 Gender: Female Note Status: Finalized Procedure: Bronchoscopy EBUS Indications: Adenopathy Providers: Callum Hinton M.D. Referring MD: Callum Hinton M.D. Medicines: Lidocaine 1% applied to cords 10 mL, Lidocaine 1% applied to the tracheobronchial tree 30 mL,Fentanyl 150 mcg IV, Midazolam 6 mg IV Complications: No immediate complications Procedure: After obtaining informed consent, the Bronchoscopewas introduced through the LMA and advanced to thecords Estimated Blood Loss: Estimated blood loss: none. Findings: 1. Airway Inspection The laryngeal mask airway is in good position. The vocal cords appear normal. The subglottic space is normal. The trachea is of normal caliber. The edvin is sharp. The tracheobronchial tree was examinedto at least the first subsegmental level. Bronchial mucosa and anatomyare normal; there are no endobronchial lesions. There were thicksecretions bilaterally which required therapeutic suctioning 2. Linear EBUS-TBNA -The scope was withdrawn and replaced with the EBUS bronchoscope to accomplish the ultrasound examination. -The Linear EBUS was advanced to the 11R lymph node station. Therewas a lymph node amenable to biopsy identified at this station.Transbronchial needle aspiration using a 22 gauge aspiration needle times 6 was performed at this location under continuous endobronchial ultrasound guidance -The Linear EBUS was advanced to the 4L lymph node station. There was not a lymph node amenable to biopsy at this location. -The Linear EBUS was advanced to the 4R lymph node station. There was not a lymph node amenable to biopsy at this location. -The Linear EBUS was advanced to the subcarinal ymph node station.There was a lymph node amenable to biopsy identified at this station. Transbronchial needle aspiration using a 22 gauge aspiration needle times 6 was performed at this location under continuous endobronchial ultrasound guidance Moderate Sedation: Moderate (conscious) sedation was administered by the nurse and supervised by the physician performing the procedure. The patient's oxygen saturation, heart rate, blood pressure and response to carewere monitored. Impression: - EBUS-TBNA of mediastinal and hilar adenopathy Recommendation: - Await biopsy results. - Chest X-ray post-procedure. - Follow up with referring physician as previously scheduled. - Patient has a contact number available for emergencies. The signs and symptoms of potential delayed complications were discussed with thepatient. Return to normal activities tomorrow. Written discharge instructions were provided to thepatient. Attending Participation: I was present and participated during the entire procedure, including non-karimi portions. Callum Hinton M.D. 11/24/2022 1:17:39 PM Number of Addenda: 0 Note Initiated On: 11/24/2022 11:59 AM us Callum Hinton MD BRONCH ORDERABLES F inal Result documented in this encounter Visit Diagnoses Diagnosis Hilar adenopathy Enlargement of lymph nodes documented in this encounter Administered Medications Inactive Administered Medications - up to 3 most recent administrations Medication Order MAR Action Action Date Dose Rate Site fentaNYL (SUBLIMAZE) preservative free injection Code/trauma/sedation medication, Starting on Sun11/24/22 at 1228 Given 11/24/2022 12:56 PM CDT 25 mcg Given 11/24/2022 12:37 PM CDT 25 mcg Given 11/24/2022 12:34 PM CDT 25 mcg midazolam (VERSED) 1 mg/mL injection intravenous, Code/trauma/sedation medication, Starting on Sun11/24/22 at 1228 Given 11/24/2022 12:56 PM CDT 1 mg Given 11/24/2022 12:37 PM CDT 1 mg Given 11/24/2022 12:34 PM CDT 1 mg sodium chloride 0.9% infusion 50 mL/hr, intravenous, Continuous, Starting on Sun11/24/22 at 1215, For bronchoscopy procedure New Bag 11/24/2022 12:03 PM CDT 50 mL/hr 50 mL/hr documented in this encounter Discontinued Medications Medication Sig Discontinue Reason Start Date End Da te nicotine (NICODERM CQ) [address] 1 patch on the skin daily Therapy completed 11/24/2022 methocarbamoL (ROBAXIN) 750 mg tablet Take 1 tablet (750 mg total) by mouth 4 (four) times a day Therapy completed 09/14/2021 11/24/2022 documented as of this encounter Orders Medications Ordered That Rubén ht Not Have Been Administered Count Last Ordered Date First Ordered Date fentaNYL (SUBLIMAZE) preserv ative free syringe 50 mcg 1 11/24/2022 midazolam (VERSED) 1 mg/mL injection 2 mg 1 11/24/2022 documented in this encounter Care Teams Powered Bridge Specialist Relationship Specialty Start Date End Date Sin Mcclure MD [address] [place] [address] PCP - General Internal Medicine 05/15/22 11/28/22 Wilmer Taylor MD [address] [facility] [address] [place] [address] Referring Physician Obstetrics and Gynecology 05/09/12 Jeffrey Koch MD [address] [place] [address] Consulting Physician Rheumatology 02/03/21 Luz Lewis MD [address] [place] [address] Referring Physician Surgery 12/14/21 documented as of this encounter
--- OUTSIDE RECORDS SUMMARY | 2024-05-03 02:50 | XMS_ITS | Encounter Summary ---
Author Organization [facility] Address [address] [facility] [address] [place] [address] Phone Care Team Providers Care Shank Breaker Name Role Phone Wilmer Taylor MD Unavailable [phone] Jeffrey Koch MD Unavailable [phone] Luz Lewis MD Unavailable Sin Mcclure MD Primary Care Provider [phone] Reason for Referral * Pulmonology (Routine) - Closed Specialty Diagnoses / Procedures Referred By Contac t Referred To Contact Pulmonology Diagnoses Hilar adenopathy Procedures Bronchoscopy [facility] Interventional Pulm; Bronchoscopy, EBUS LINEAR Callum Hinton MD Phone: tel: fax: Referral ID Status Reason Start Date Expiration Date Visits Re quested Visits Authorized [id number] Closed 11/13/2022 12/13/2023 1 1 Encounter Details Date Type Department Care Team (Late st Contact Info) Description 11/13/2022 Orders Only [facility] Pulmonary [address] [facility] 8[address] [place] [address] [place] [address] Brayan Dc, RMA Hilar adenopathy (Primary Dx) Social History Tobacco Use Types [...] on file Legal Sex 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 Gender Identity Not on file Sexual Orientation Not on file documented as of this encounter Plan of Treatment Not on file documented as of this encounter Results * Bronchoscopy -[facility] Interventional Pulm; Bronchoscopy, EBUS LINEAR (11/24/2022 12:20 PM CDT) Anatomical Region Laterality Modality Other Narrative Procedure Note Callum Hinton MD - 11/24/2022 12:20 PM CDT [facility] Interventional Pulmonary Patient Name: Loida Guillory Procedure Date: 11/24/2022 12:20 PM Date [...] 0 Note Initiated On: 11/24/2022 11:59 AM Callum Hinton MD BRONCH ORDERABLES F inal Result documented in this encounter Visit Diagnoses Diagnosis Hilar adenopathy- Primary Enlargement of lymph nodes Hilar adenopathy Enlargement of lymph nodes documented in this encounter Care Teams Shank Breaker Relationship Specialty Start Date End Date Sin Mcclure MD [address] [place] [address] PCP - General Internal Medicine 05/15/22 11/28/22 Wilmer Taylor MD [address] [facility] [address] [place] [address] Referring Physician Obstetrics and Gynecology 05/09/12 Jeffrey Koch MD [address] [place] [address] Consulting Physician Rheumatology 02/03/21 Luz Lewis MD [address] [place] [address] Referring Physician Surgery 12/14/21 documented as of this encounter
--- OUTSIDE RECORDS SUMMARY | 2024-05-03 02:50 | XMS_ITS | Encounter Summary ---
Author Organization [facility] Address [address] [place] [address] Care Team Providers Care Well Servicing Rig Operator Name Role Phone Wilmer Taylor MD Unavailable [phone] Jeffrey Koch MD Unavailable [phone] Luz Lewis MD Unavailable [phone] Jay Argueta MD Primary Care Provider [phone] Raleigh Veloz MD PhD Unavailable [phone] Ranjan Cazares MD Unavailable [phone] Reason for Visit * Reason Comments Consult * Consultation (Routine) - Closed Specialty Diagnoses / Procedures Referred By Contac t Referred To Contact Radiation Oncology Diagnoses Lung nodule Ranjan Cazares MD [id number] [place] [address] Phone: tel: fax: Maxx Boyer MD [address] [facility] [address] [place] [address] Phone: tel: fax: Referral ID Status Reason Start Date Expiration Date V isits Requested Visits Authorized [id number] Closed Specialty Services Required 11/28/2022 12/28/2023 1 1 Encounter Details Date Type Department Care Team (Late st Contact Info) Description 12/12/2022 10:00 AM CDT Consult [facility] Radiation Oncology [address] [facility] [place] [address] Raleigh Veloz MD PhD [address] [place] [address] Malignant neoplasm of upper lobe, right bronchus or lung (HCC) (Primary Dx); Lung nodule; Malignant neoplasm of lower lobe, right bronchus [...] on file Legal Sex Female 10:10 AM 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 Gender Identity Not on file Sexual Orientation Not on file documented as of this encounter Last Filed Vital Signs Vital Sign Reading Time Taken Comments Blood Pressure 143/74 12/12/2022 10:16 AM CDT Pulse 76 12/12/2022 10:16 AM CDT Temperature 36.6 ??C (97.8 ??F) 12/12/2022 1 0:16 AM CDT Respiratory Rate - - Oxygen Saturation 91% 12/12/2022 10: 16 AM CDT Inhaled Oxygen Concentration - - Weight 66.1 kg (145 lb 12.8 oz) 023 10:16 AM CDT Height 162.6 cm (5' 4 ) 12/12/2022 10:1 6 AM CDT Body Mass Index 25.03 12/12/2022 10:16 AM CDT documented in this encounter Progress Notes * Raleigh Veloz MD PhD - 12/12/2022 10:00 AM CDT Staff Physician: Raleigh Veloz MD PhD Referring Physician: Patient Care Team: Wilmer Taylor MD as Referring Physician (Obstetrics and Gynecology) Luz Lewis MD as Referring Physician (Surgery) Date of Service: 12/12/2022 RADIATION ONCOLOGY CONSULT NOTE IDENTIFYING DATA: Cancer Staging Malignant neoplasm [...] by Raleigh Veloz MD PhD on 12/12/2022 Loida Guillory is a 72 y.o. 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 HISTORY OF PRESENT ILLNESS: Ms. Guillory came to original oncologic attention back in July 2021 when she was incidentally notedto have a nodule in the right upper lobe during workup for unrelated issues during an outside hospital admission. This ultimately led to a CT of the chest on 08/11/2021 which showed a 1.4 cm right upper lobe nodule. She then underwent CT-guided biopsy at an outside facility on 08/23/2021 and patholo gy was consistent with squamous cell carcinoma. On 09/01/2021, she met with Dr. Cazares to discuss further management. Pulmonary function testing at that time showed an FEV1 of 60% of predicted and aDLCO 48% of predicted. She was felt to be a good surgical candidate and on 09/12/2021 underwent a right upper lobe lobectomy and lymph node dissection. This showed a 2 cm focus of squamous cell carcinoma, grade 1 with 0 of 9 positive lymph nodes. She then underwent routine surveillance imaging withfollow-up CT in March 2022 showing no evidence of recurrent disease. However, CT of the chest on11/05/2022 noted a new 1.2 cm nodule the anterior right lung base. She then underwent a PET-CT on 11/07/2022 which showed intense FDG uptake within this right lower lobe pleural-based nodule which was highly suspicious for malignancy with an SUV max of 8.3. Also noted were 2 moderately the FDG avidright hilar and AP window lymph nodes. On 11/24/2022, she underwent bronchoscopy and EBUS and sampling of a level 11R in 7 lymph nodes were negative for malignancy with lymphoid tissue present. She fo llowed up again with Dr. Cazares on 12/07/2022 and pulmonary function testing at that time showed interval decrease in FEV1 to 57% of predicted and a DLCO of 39% of predicted. While she could potentially be a candidate for a sublobar resection, she was ultimately felt to be a high-risk candidate for surgery and was referred to our office for discussion and consideration of empiric SBRT. Currently, the patient reports some continued baseline shortness of breath which appears to be relatively stable. She denies any cough or hemoptysis. She denies any dysphagia or odynophagia. She denies any recent changes in weight. She denies any headache, nausea, vomiting, vision changes, or any focal numbness or weakness. She does have some generalized joint pain which she rates a 4/10 and relates this to her history of rheumatoid arthritis. She states that this is well controlled on her current medications. She does not have an ICD or pacemaker in place. PREVIOUS RADIATION: None PAST MEDICAL HISTORY: has a past medical history of Arthritis, COPD (chronic obstructive pulmonary disease) (HCC), Hypertension, Lung cancer (HCC), Osteoporosis, Personal history of other diseases of the circulatory system, and Vulva cancer (CMS/HCC) (HCC). PAST SURGICAL HISTORY: has a past surgical history that includes pr unlisted procedure breast (Right, 1977); rhinoplasty (1989); Ovary surgery (1994); Vulva surgery (03/28/2012); Vulva surgery (03/04/2013); Vulva surgery (11/10/2018); Vulva surgery (04/08/2019); Breast surgery (Right); Lung lobectomy (Right); and Colonoscopy. FAMILY HISTORY: family history includes Breast cancer in an other family member; Colon cancer in an other family member. SOCIAL HISTORY: reports that she quit smoking about 8 years ago. She started smoking about 54 years ago. She has a 12.50 pack-year smoking history. She has never used smokeless tobacco. She reports that she does notuse drugs. Patient reports consuming alcoholic drinks monthly or less, with a daily consumption of drinks. Patient denies daily consumption of 6 or more alcoholic drinks at one occasion. History Last Reviewed by Raleigh Veloz MD PhD on 12/12/2022 at 3:01 PM Sections Reviewed Medical, Surgical, Family, Tobacco, Socioeconomic ALLERGIES: Allergies as of 12/12/2022 Reviewed by Raleigh Veloz MD PhD on 12/12/2022 Severity Noted Reaction Type Reactions Omeprazole Medium Rash Amoxicillin Low 09/01/2021 Diarrhea Motrin [ibuprofen] Low 09/12/2021 Other (See comments) Patient takes Methotrexate and advised not to take. MEDICATIONS: Review Info User Date and Time RALEIGH VELOZ MD PHD [[id number]] 12/12/2022 3:01 PM REVIEW OF SYSTEM Except for the symptoms described above, the remainder of the review of systems is negative. Specifically, except as noted, when asked, the patient expressed no complaints relative to constitutional,eyes, ears, nose, mouth, throat, neurologic, cardiovascular, pulmonary, breasts, GI, , skin, musculoskeletal, endocrine, hematologic/lymphatic or immunologic systems. RADIATION SCREENING QUESTIONS Prior radiation therapy: No Pacemaker: No Connective tissue disease: Yes, rheumatoid arthritis Inflammatory bowel disease: No PHYSICAL EXAMINATION: ECOG Performance Status: 1 BP 143/74 (BP Location: Right arm, Patient Position: Sitting) Pulse 76 Temp 36.6 ??C (97.8 ??F) Ht 162.6 cm (5' 4 ) Wt 66.1 kg (145 lb 12.8 oz) SpO2 91% BMI 25.03 kg/m?? Pain Score and Location 12/12/22 1016 PainSc: 4 PainLoc: Generalized Physical Exam Constitutional: General: She is not in acute distress. Appearance: She is not toxic-appearing. HENT: Head: Normocephalic [...] the imaging and pertinent findings as per HPI. Laboratory/Pathology: I personally reviewed the laboratory and pathology values and pertinent findings as per HPI. ASSESSMENT: Loida Guillory is a 72 y.o. 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 We reviewed the workup, staging, and treatment options for early stage non-small celllung cancer. Specifically, we discussed that the gold standard treatment is surgery with lobectomy and lymph node dissection, but for patients who are either poor surgical candidates or refuse surgery, definitive radiation is the alternative approach. With regard to radiation treatment, we discussed that the standard is definitive SBRT which results in improved local control and in some studies overall survival compared to conventional fractionation. For treatment of her initial disease back [id number], we discussed that she was able to receive definitive surgery and while resection is potentially an option with this new site of disease, this would require a sublobar resection and she is ultimately felt to be a high risk surgical candidate. Furthermore, given the location near the lung base and relatively small size, this would likely be a challenge to biopsy for pathologic confirmation. Nevertheless, we discussed that based on new development on restaging CT chest and increased FDG uptake, this is radiographically consistent with malignancy. We discussed that empiric SBRT would be a reasonable alternative option to surgical resection. All we did discuss this would be recommended inthe absence of pathologic confirmation, again this lesion is radiographically consistent with malignancy but there can be a small possibility that we would be offering radiation therapy to something that is ultimately not malignant. We then discussed the various dose and fractionation options and I think she would be a more appropriate candidate for 5 fraction treatment [facility] The patient and her family member asked appropriate questions and expressed understanding and were in agreement with the overall plan. They wished to pursue definitive SBRT at our [facility] facility closer to home. PLAN: 1. I recommend definitive radiation to 5500 cGy in 5 fractions to the Right lower lobe with SBRT. 2. I discussed the rationale, benefits, and risks of radiation therapy to the Right lower lobe withthe patient and family. Specifically, we discussed the short and terminal manager risks of radiation therapy. The short term risks include, but are not limited to, odynophagia, dysphagia, fatigue, and dermatitis. The terminal manager risks include, but are not limited to, radiation pneumonitis, esophageal stricture or perforation, and an increased risk of cardiovascular disease. The patient and family asked appropriate questions and expressed understanding. Informed consent was signed. 3. CT simulation will be scheduled in the near future with anticipated treatment start date soon thereafter. RAD ONC PAIN PLAN: The patient is not currently having any pain that requires changes in pain management. The patient and family know they can contact our office at any time with any questions or concerns.Thank you for allowing me to participate in the care of this patient. documented in this encounter Nursing Notes * Ashlie Lu RN - 12/12/2022 10:00 AM CDT No pacemaker, no defibrillator, no IV port. No prior . Prefer RT at [facility]. documented in this encounter Plan of Treatment Not on file documented as of this encounter Visit Diagnoses Diagnosis Malignant neoplasm of upper lobe, right bronchus or lung (HCC)- Primary Lung nodule Other diseases of lung, not elsewhere classified Malignant neoplasm of lower lobe, right bronchus or lung (HCC) documented in this encounter Orders Outpatient Referral Count Last Ordered Date Fir st Ordered Date AMB REFERRAL TO RADIATION ONCOLOGY 1 2022 documented in this encounter Care Teams Well Servicing Rig Operator Relationship Specialty Start Date End Date Jay Argueta MD [address] [place] [address] PCP - General Family Practice 11/29/22 10/07/23 Wilmer Taylor MD [address] [facility] [address] [place] [address] Referring Physician Obstetrics and Gynecology 05/09/12 Jeffrey Koch MD [address] [place] [address] Consulting Physician Rheumatology 02/03/21 Luz Lewis MD [address] [place] [address] Referring Physician Surgery 12/14/21 Raleigh Veloz MD PhD [address] [place] [address] Radiation Oncologist Radiation Oncology 12/12/22 Ranjan Cazares MD [id number] [place] [address] Surgeon Thoracic Surgery 12/12/22 documented as of this encounter
--- OUTSIDE RECORDS SUMMARY | 2024-05-03 02:50 | XMS_ITS | Encounter Summary ---
Author Organization [facility] Address [address] [facility] [address] [place] [address] Phone Care Team Providers Care Type Disk Quality Control Supervisor Name Role Phone Wilmer Taylor MD Unavailable [phone] Jeffrey Koch MD Unavailable [phone] Luz Lewis MD Unavailable [phone] Jay Argueta MD Primary Care Provider [phone] Reason for Visit * Consultation (Routine) - Closed Specialty Diagnoses / Procedures Referred By Contac t Referred To Contact Cardiothoracic Surgery Diagnoses Malignant neoplasm of lung, unspecified laterality, unspecified part of lung (HCC) Terry Bender DO Phone: tel: fax: [facility] (All Locations) Referral ID Status Reason Start Date Expiration Date V isits Requested Visits Authorized [id number] Closed Specialty Services Required 03/15/2022 03/16/2023 15 15 Encounter Details Date Type Department Care Team (Late st Contact Info) Description 12/07/2022 3:00 PM CDT Office Visit [facility] Surgery [facility] 8th [place] [address] [place] [address] Ranjan Czaares MD [address] [facility] [place] [address]22 [place] [address] Malignant neoplasm of upper lobe of right lung (HCC) (Primary Dx) Social History Tobacco [...] on file Legal Sex 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 e Ranjan Cazares M.D., M.P.H. network systems analyst [facility] - fax [facility] Thoracic Surgery Note 12/07/22 Loida Guillory 1950 I was pleased to see Loida Guillory in follow-up. As you know, she is a 72 y.o. female here for follow-up of a new pulmonary nodule. I performed a robotic assisted right upper lobectomy in August of 2021 for a T1b N0 squamous cell carcinoma. I saw her in early October and her repeat CT scan showed a new nodule in the anterior aspect of the right lower lobe. Since that time we have now obtained a more complete workup including a PET-CT scan, endobronchial ultrasound and some pulmonary function tests. She comes to the office today with her family to discuss her options. She continues to feel well. She does have some dyspnea on exertion but she is able to do all of her activities of daily living. She denies any headache, weight loss or hemoptysis. I saw this patient with Mary Chong NP. I have reviewed and agree with the past medical history, social history, family history entered into the medical record. We performed a complete review of symptoms which was negative other than what is mentioned in the HPI. We also reviewed and updated the medication list and allergies. On physical exam, she is well appearing and in no acute distress. I have reviewed the vital signs taken in clinic today. No icterus. No cervical or supraclavicular adenopathy. Breath sounds are clearbilaterally. Cardiac exam is regular rate and rhythm. Abdomen is soft and nontender. There is no lower extremity edema. Skin is warm and dry. Mood and affect are normal. Patient is alert and orientedx 3. I have ordered and independently reviewed the PET-CT scan which was performed on November 10 which shows that the 1.4 cm right lower lobe pulmonary nodule has an SUV of 8.3. There are also some right hilar lymph nodes with an SUV of 4.4. I ordered an endobronchial ultrasound which was performed on November 24 and biopsies of both the 11 are and subcarinal lymph node show lymphoid components with no evidence of malignancy. I also ordered repeat pulmonary function tests which were performed today and show an FEV1 of 82% predicted and a diffusing capacity of 39% predicted. Her diffusing capacity prior to the lobectomy was 48% predicted. We discussed all of this during our visit. I think she likely has a new primary lung cancer rather than a metastasis but it is very hard to know this definitively. I think her primary options are a redo operation with a sublobar resection on the right side or stereotactic body radiation therapy. I am quite concerned with her low diffusing capacity. If I plan to do a thoracoscopic wedge resection and she did not have a lot of adhesions I would probably be able to get her through this. However, she has adhesions and I need to do a thoracotomy I think it will be a very difficult recovery and shewill have a high risk of pneumonia and respiratory failure. Her other option is stereotactic body ra diation therapy and I think this is likely a much better option for her. She is seeing Dr. Prabhu Jay next week and I called and discussed her care with him. I think he is likely to proceed with SPRT without a tissue diagnosis and then he will likely follow her prison. My total encounter time on 12/07/22 was 45 minutes which was spent in the activities documented in the note. This includes time spent prior to the visit and after the visit in direct care of the patient. This time does not include time spent in any separately reportable services. Thank you very much. Yours sincerely, Ranjan Cazares MD, MPH Transformer Shop Supervisor completed by using [employer] Direct speaking software, therefore, transcriptionvariances may occur. documented in this encounter Plan of Treatment Not on file documented as of this encounter Visit Diagnoses Diagnosis Malignant neoplasm of upper lobe of right lung (HCC)- Primary documented in this encounter Discontinued Medications Medication Sig Discontinue Reason Start Date End Da te losartan (COZAAR) 25 mg tabletIndications:hype rtension Take 1 tablet (25 mg total) by mouth daily after lunch Monitor BP at home and f/u with primary care doctor for medication management. Duplicate order 09/14/2021 12/07/2022 documented as of this encounter Historical Medications * This list may reflect changes made after this encounter. losartan (COZAAR) 50 mg tablet Take 1 tablet (50 mg total) by mouth daily 11/08/2022 added in this encounter Care Teams Type Disk Quality Control Supervisor Relationship Specialty Start Date End Date Jay Argueta MD [address] [place] [address] PCP - General Family Practice 11/29/22 10/07/23 Wilmer Taylor MD [address] [facility] [address] [place] [address] Referring Physician Obstetrics and Gynecology 05/09/12 Jeffrey Koch MD [address] [place] [address] Consulting Physician Rheumatology 02/03/21 Luz Lewis MD [address] [place] [address] Referring Physician Surgery 12/14/21 documented as of this encounter
--- OUTSIDE RECORDS SUMMARY | 2024-05-03 02:50 | XMS_ITS | Encounter Summary ---
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 I asked the patient's family member the following screening questions prior to the pre-procedure instructions: 1.Have you traveled outside the [place] in the last 6 months?No 2. Have you been exposed to anyone who is sick in the last 30 days?No 3. Have you been exposed to or tested positive for COVID-19 within the last 10 days?No 5. Are you having any of the following? None of these Pre-procedure instructions: Instructed the patient's family member to arrive at [facility] Admitting/Registration Office on [facility] on Sunday11/24/22 at 1130. 3. Instructed patient's family member that if patient will be receiving sedation they will not be able to eat or drink anything after midnight on 11/23/2022 but may take sips of water with their AM medications (except blood thinner per discussion below). 4. Patient stated patient family member does not use oxygen at home. If the patient uses home oxygen, even if they only use oxygen during sleep periods, they are to bring enough home oxygen supply toget themselves to and from [facility]. 5. Patient stated that patient family memberdoes not use a CPAP or BIPAP device. Instructed patient, if they use a CPAP or BIPAP, to bring in their device or bring documentation of their CPAP/BIPAP settings with them to their appointment. 6. The patient will need a driver/sales workers or will need to arrange their own transportation home after theirprocedure. Patient stated patient does have a ride home after procedure. Emphasized that departmental staff will confirm transportation prior to the procedure. Further emphasized that the patient will not be able to drive themselves home after their procedure if they receive any sedation and/or opioids. Instructed patient/family that if a transportation service is used for this appointment that the patient/family need to provide the Interventional Pulmonology staff with the name and the phone number of the transportation service used. 7. Patient family member confirmed that the patient does have some one who will stay with them for at least 24 hours post discharge. Emphasized that, for their safety, the patient may have to be admitted for 23 hours post procedure if they do not have some one who will stay with them for at least 24 hours post discharge. 8. The patient family member will need to bring a list of their current home medications including all herbal supplements and all non-prescription/over the counter medications. 9. Patient family memberstated that patient does take anticoagulants. If the patient stated they dotake anticoagulants, the anticoagulant taken is Aspirin. Date of last dose taken: one week ago 10. Patient family member stated that they are not diabetic. If insulin dependent diabetic, the patient may take 1/2 of their PM insulin dose the evening prior to their procedure. If non-insulin dependent, they are to hold their oral diabetic medications the day of their procedure. The patient is also to check their finger stick blood glucose the morning of their procedure if they are diabetic. 11. Patient family member confirmed that the patient and their family are familiar on the location of the [facility] Admitting Office for pre-procedure registration and any lab work that may be ordered. Discussed that the patient is not to go to the [facility] for their appointment. Confirmed they are aware of what time to arrive at the [facility] Admitting Office. 12. I reviewed the following [facility] Visitor Policy that was updated 07/2021 with patient : A. Each patient is only allowed two visitors for an outpatient procedure/appointment. B. Visitors will be screened upon arrival to the hospital with the aforementioned coronavirus questions. Any yes answer to questions will result in the visitor being denied entrance to this facility. C. All visitors are expected to remain in the Surgical Registration and Waiting Area the entire time they are waiting on the patient and will not be allowed in the procedure area. D. All visitors are expected to follow posted hand hygiene protocols. E. Instructed patient's family member that effective 07/12/22, masks are optional. F. Patient's family member verbalized confirmation of visitor policy and verbalized understanding that failure to comply with aforementioned policy or if their visitor/family does not pass the coronavirus screening questions, the visitor/family will be asked to leave the hospital immediately. 12. Patient's family member verbalized confirmation that they will call and notify us if they are having any fever, cough, shortness of breath, sore throat, lost of taste or smell, diarrhea, vomiting, or are waiting on a COVID test result between the time of this call and the time oftheir procedure. 13. Patient's family member verbalized confirmation and understanding of above instructions & Ianswered all questions from the patient/family. 14. Call Ended 1032 documented in this encounter Plan of Treatment Not on file documented as of this encounter Visit Diagnoses Not on filedocumented in this encounter Care Teams Polymerization Supervisor Relationship Specialty Start Date End Date Sin Mcclure MD [address] [place] [address] PCP - General Internal Medicine 05/15/22 11/28/22 Wilmer Taylor MD [address] [facility] [address] [place] [address] Referring Physician Obstetrics and Gynecology 05/09/12 Jeffrey Koch MD [address] [place] [address] Consulting Physician Rheumatology 02/03/21 Luz Lewis MD [address] [place] [address] Referring Physician Surgery 12/14/21 documented as of this encounter
--- OUTSIDE RECORDS SUMMARY | 2024-05-03 02:50 | XMS_ITS | Encounter Summary ---
Author Organization [facility] Healthcare Address [address] [place] [address] Care Team Providers Care Assorter Laundry Name Role Phone Wilmer Taylor MD Unavailable [phone] Jeffrey Koch MD Unavailable [phone] Luz Lewis MD Unavailable [phone] Jay Argueta MD Primary Care Provider [phone] Raleigh Jay MD PhD Unavailable [phone] Ranjan Cazares MD Unavailable [phone] Encounter Details Date Type Department Care Team (Late st Contact Info) Description 01/02/2023 10:00 AM CDT Treatment [facility] Radiation Oncology [address] [place] [address] Carter Orlando MD [address] [facility] [address] [place] [address] Social History Tobacco Use Types Packs/Day Years [...] on file 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 Gender Identity Not on file Sexual Orientation Not on file documented as of this encounter Plan of Treatment Not on file documented as of this encounter Visit Diagnoses Not on filedocumented in this encounter Care Teams Assorter Laundry Relationship Specialty Start Date End Date Jay Argueta MD [address] [place] [address] PCP - General Family Practice 11/29/22 10/07/23 Wilmer Taylor MD [facility] [address] [address] Referring Physician Obstetrics and Gynecology 05/09/12 Jeffrey Koch MD [address] [place] [address] Consulting Physician Rheumatology 02/03/21 Luz Lewis MD [address] [place] [address] Referring Physician Surgery 12/14/21 Raleigh Jay MD PhD [address] [place] [address] Radiation Oncologist Radiation Oncology 12/12/22 Ranjan Cazares MD [address] [facility] [address] [place] [address] Surgeon Thoracic Surgery 12/12/22 documented as of this encounter
--- OUTSIDE RECORDS SUMMARY | 2024-05-03 02:50 | XMS_ITS | Encounter Summary ---
Author Organization [facility] Address [address] [facility] [address] [place] [address] Phone Care Team Providers Care Tooth Cutter Clutch Name Role Phone Wilmer Taylor MD Unavailable [phone] Jeffrey Koch MD Unavailable [phone] Luz Lewis MD Unavailable [phone] Sin Mcclure MD Primary Care Provider [phone] Reason for Visit * Consultation (Routine) - Closed Specialty Diagnoses / Procedures Referred By Contac t Referred To Contact Cardiothoracic Surgery Diagnoses Malignant neoplasm of lung, unspecified laterality, unspecified part of lung (HCC) Terry Bender DO Phone: tel: fax: [facility] (All Locations) Referral ID Status Reason Start Date Expiration Date V isits Requested Visits Authorized [id number] Closed Specialty Services Required 03/15/2022 03/16/2023 15 15 Encounter Details Date Type Department Care Team (Late st Contact Info) Description 10/31/2022 8:30 AM CDT Office Visit [facility] Surgery [address] [facility] [address] [place] [id number] Ranjan Cazares MD [address] [facility] [address] [place] [address] Malignant neoplasm of lung, unspecified laterality, unspecified part of lung (HCC) (Primary Dx); Malignant neoplasm of upper lobe of right lung (HCC); Lung nodule Social History Tobacco Use Types Packs/Day Years [...] on file 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 shar Cazares M.D., M.P.H. glue sprayer [facility] - voice - fax [facility] Thoracic Surgery Note 10/31/2022 Loida Guillory 1950 I was pleased to see Loida Guillory in follow-up. As you know, she is a 72 y.o. female here for lung cancer surveillance following a robotic assisted right upper lobe lobectomy in August of 2021 for a T1b N0 well-differentiated squamous cell carcinoma. She continues to do very well. She does have exertional dyspnea but is able to do all of her activities of daily living. She denies any new cough, hemoptysis, chest pain or weight loss. I saw this patient with Mary Chong [...] I have ordered and independently reviewed the chest CT scan from today which unfortunately shows a new nodule in the anterior inferior aspect of the right lower lobe. This measures a little over a cmand it was not there previously. There is no hilar or mediastinal lymphadenopathy and no evidence of any systemic disease. We discussed all of this during our visit. 1. Cancer Care - Survivorship: She was very upset by the news and I think it makes sense to proceedwith a PET-CT scan. I think this is likely to either be a new primary or recurrent disease and if there is no evidence of any other disease, we could decide between surgical resection and stereotactic body radiation therapy. We will see the results of her PET scan and then likely present her multidisciplinary Oncology Conference. Thank you very much. Yours sincerely, Ranjan Cazares MD, MPH Appliance Worker completed by using M*[employer] Fluency Direct speaking software, therefore, transcriptionvariances may occur. documented in this encounter Plan of Treatment Not on file documented as of this encounter Visit Diagnoses Diagnosis Malignant neoplasm of lung, unspecified laterality, unspecified part of lung (HCC)- Primary Malignant neoplasm of upper lobe of right lung (HCC) Lung nodule Other diseases of lung, not elsewhere classified documented in this encounter Orders Appointment Requests Count Last Ordered Date Fi rst Ordered Date [facility] CLINIC APPOINTMENT REQUEST 1 023 documented in this encounter Care Teams Tooth Cutter Clutch Relationship Specialty Start Date End Date Sin Mcclure MD [address] [place] [address] PCP - General Internal Medicine 05/15/22 11/28/22 Wilmer Taylor MD [address] [facility] [address] [place] [address] Referring Physician Obstetrics and Gynecology 05/09/12 Jeffrey Koch MD [address] [place] [address] Consulting Physician Rheumatology 02/03/21 Luz Lewis MD [address] [place] [address] Referring Physician Surgery 12/14/21 documented as of this encounter
--- OUTSIDE RECORDS SUMMARY | 2024-05-03 02:50 | XMS_ITS | Encounter Summary ---
Author Organization [facility] Address [address] [facility] [address] [place] [address] Phone Care Team Providers Care Laborer Construction Or Leak Gang Name Role Phone Wilmer Taylor MD Unavailable Jeffrey Koch MD Unavailable [phone] Luz Lewis MD Unavailable [phone] Jay Argueta MD Primary Care Provider [phone] Reason for Referral * Procedure (Routine) - Closed Specialty Diagnoses / Procedures Referred By Contac t Referred To Contact Diagnoses Lung nodule Procedures Pulmonary Function Test -[facility] U Adult PFT Lab- CAM-8D; Spirometry with Bronchodilator, DLCO; Lung volumes; Pleth with Airway Resistance Ranjan Cazares MD [address] [facility] [address] [place] [address] Phone: tel: fax: Referral ID Status Reason Start Date Expiration Date Visits Re quested Visits Authorized [id number] Closed 11/29/2022 12/29/2023 1 1 Reason for Visit * Procedure (Routine) - Closed Specialty Diagnoses / Procedures Referred By Contac t Referred To Contact Diagnoses Lung nodule Procedures Pulmonary Function Test -[facility] Adult PFT Lab- CAM-8D; Spirometry with Bronchodilator, DLCO; Lung volumes; Pleth with Airway Resistance Ranjan Cazares MD [address] [facility] [address] [place] [address] Phone: tel: fax: Referral ID Status Reason Start Date Expiration Date Visits Re quested Visits Authorized [id number] Closed 11/29/2022 12/29/2023 1 1 Encounter Details Date Type Department Care Team (Latest Contact Info) Description 12/07/2022 12:00 PM CDT - 12/07/2022 11:59 PM CDT Hospital Encounter [facility] Pulmonary [address] [facility] [address] [place] [address] Lung nodule Discharge Disposition: Discharge to home or self [...] on file 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 Gender Identity Not on file Sexual Orientation [...] mg total) by mouth daily 11/08/2022 omega 2-ovo-wzg-fish oil 100-160-1,000 mg capsuleIndicatio ns:hypertriglyce ridemia Take [...] after lunch 90 tablet 3 05/15/2022 3 methotrexate 2.5 mg tabletIndication s:Rheumatoid Arthritis Take 5 tablets (12.5 mg total) by mouth every 7 days Every Sunday 60 tablet 1 12/04/2022 3 traMADoL (ULTRAM) 50 mg tablet Take [...] Procedure Name Priority Date/Time Associated Diagnosis Comments PULMONARY FUNCTION TEST (PFT) Routine 12/07/2022 1:47 PM CDT Lung nodule documented in this encounter Results * Pulmonary Function Test - (12/07/2022 1:47 PM CDT) FVC PRE 2.18 L [facility] FVC %PRE PRED 82 % [facility] FEV1 PRE 1.17 L [facility] FEV1 %PRE PRED 57 % [facility] FEV1/FVC PRE 53.7 % [facility] FRC PL PRE 2.14 L [facility] FRC PL %PRE PRED 76 % [facility] RV PRE 1.45 L [facility] RV %PRE PRED 65 % [facility] TLC PRE 3.68 L [facility] TLC %PRE PRED 75 % [facility] DLCO PRE 7.3 ml/min/mmH g [facility] DLCO %PRE PRED 39 % [facility] [...] and %HbO2 is age dependent. However, the [facility] Pulmonary Function Laboratory defines hypoxemia as a PO2 <55 or a %HbO2 <89. Narrative 12/07/2022 12:58 PM CDT PFT performed at:->[facility] Adult PFT Lab- CAM-8D Procedure:->Spirometry with Bronchodilator [...] in this encounter Visit Diagnoses Diagnosis Lung nodule Other diseases of lung, not elsewhere classified documented in this encounter Care Teams Laborer Construction Or Leak Gang Relationship Specialty Start Date End Date Jay Argueta MD [address] [place] [address] PCP - General Family Practice 11/29/22 10/07/23 Wilmer Taylor MD [address] [facility] [address] [place] [address] Referring Physician Obstetrics and Gynecology 05/09/12 Jeffrey Koch MD [address] [place] [address] Consulting Physician Rheumatology 02/03/21 Luz Lewis MD [address] [place] [address] Referring Physician Surgery 12/14/21 documented as of this encounter
--- OUTSIDE RECORDS SUMMARY | 2024-05-03 02:50 | XMS_ITS | Encounter Summary ---
Author Organization [facility] Healthcare Address [address] [place] [address] Care Team Providers Care News Specialist Name Role Phone Wilmer Taylor MD Unavailable [phone] Jeffrey Koch MD Unavailable [phone] Luz Lewis MD Unavailable [phone] Jay Argueta MD Primary Care Provider [phone] Raleigh Jay MD PhD Unavailable [phone] Ranjan Cazares MD Unavailable [phone] Encounter Details Date Type Department Care Team (Late st Contact Info) Description 12/20/2022 11:15 AM CDT Treatment [facility] Radiation Oncology [address] [place] [address] Raleigh Jay MD PhD [address] [place] [address] Social History Tobacco Use Types Packs/Day Years [...] on file 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 Gender Identity Not on file Sexual Orientation Not on file documented as of this encounter Plan of Treatment Not on file documented as of this encounter Visit Diagnoses Not on filedocumented in this encounter Care Teams News Specialist Relationship Specialty Start Date End Date Jay Argueta MD [address] [place] [address] PCP - General Family Practice 11/29/22 10/07/23 Wilmer Taylor MD [facility] [address] [address] Referring Physician Obstetrics and Gynecology 05/09/12 Jeffrey Koch MD [address] [place] [address] Consulting Physician Rheumatology 02/03/21 Luz Lewis MD [address] [place] [address] Referring Physician Surgery 12/14/21 Raleigh Jay MD PhD [address] [place] [address] Radiation Oncologist Radiation Oncology 12/12/22 Ranjan Cazares MD [address] [facility] [address] [place] [address] Surgeon Thoracic Surgery 12/12/22 documented as of this encounter
--- OUTSIDE RECORDS SUMMARY | 2024-05-03 02:50 | XMS_ITS | Encounter Summary ---
Author Organization [facility] Address [address] [facility] [address] [place] [address] Phone Care Team Providers Care Clinical Resource Director Name Role Phone Wilmer Taylor MD Unavailable [phone] Jeffrey Koch MD Unavailable [phone] Luz Lewis MD Unavailable [phone] Sin Mcclure MD Primary Care Provider [phone] Encounter Details Date Type Department Care Team (Late st Contact Info) Description 11/13/2022 Telephone [facility] Pulmonary [address] [facility] Advanced Medicine 8th [place] [address] [place] [address] Brayan Dc, A Social History Tobacco Use Types Packs/Day Years [...] on file 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 1st attempt. documented in this encounter Plan of Treatment Not on file documented as of this encounter Visit Diagnoses Not on filedocumented in this encounter Care Teams Clinical Resource Director Relationship Specialty Start Date End Date Sin Mcclure MD [address] [place] [address] PCP - General Internal Medicine 05/15/22 11/28/22 Wilmer Taylor MD [address] [address] Referring Physician Obstetrics and Gynecology 05/09/12 Jeffrey Koch MD [address] [place] [address] Consulting Physician Rheumatology 02/03/21 Luz Lewis MD [address] [place] [address] Referring Physician Surgery 12/14/21 documented as of this encounter
--- OUTSIDE RECORDS SUMMARY | 2024-05-03 02:50 | XMS_ITS | Encounter Summary ---
Author Organization [facility] Address [address] [place] [address] Phone Care Team Providers Care Grain Grader Name Role Phone Wilmer Taylor MD Unavailable [phone] Jeffrey Koch MD Unavailable [phone] Luz Lewis MD Unavailable [phone] Sin Mcclure MD Primary Care Provider [phone] Encounter Details Date Type Department Care Team (Late st Contact Info) Description 11/28/2022 Telephone [facility] Surgery [address] [facility] Advanced Medicine 8th [place] [address] [place] [address] Mary Chong, GWENDOLYN [address] [place] [address] Social History Tobacco Use Types Packs/Day Years Used Date Smoking Tobacco: Former Cigarettes 0.3 50 1 9 - 2014 Smokeless Tobacco: Never Alcohol Use [...] on file 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 We discussed that the lymph node biopsies both came backnegative for cancer. We are still concerned about the lung nodule. I am going to get the patient referred to Radiation Oncology and get her set up for PFTs and an office visit with Dr. Cazares in . Dr. Cazares is out of town this week so it will be next . I discussed all this with the patient's daughter. She is in agreement with the plan. We will get all this testing scheduled. documented in this encounter Plan of Treatment Not on file documented as of this encounter Visit Diagnoses Not on filedocumented in this encounter Care Teams Grain Grader Relationship Specialty Start Date End Date Sin Mcclure MD [address] [place] [address] PCP - General Internal Medicine 05/15/22 11/28/22 Wilmer Taylor MD [address] [place] [address] Referring Physician Obstetrics and Gynecology 05/09/12 Jeffrey Koch MD [address] [place] [address] Consulting Physician Rheumatology 02/03/21 Luz Lewis MD [address] [place] [address] Referring Physician Surgery 12/14/21 documented as of this encounter
--- OUTSIDE RECORDS SUMMARY | 2024-05-03 02:50 | XMS_ITS | Encounter Summary ---
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 Left voicemail at patient's preferred number. This is the first attempt. documented in this encounter Plan of Treatment Not on file documented as of this encounter Visit Diagnoses Not on filedocumented in this encounter Care Teams Christian Science Healer Relationship Specialty Start Date End Date Sin Mcclure MD [address] [place] [address] PCP - General Internal Medicine 05/15/22 11/28/22 Wilmer Taylor MD [address] [address] Referring Physician Obstetrics and Gynecology 05/09/12 Jeffrey Koch MD [address] [place] [address] Consulting Physician Rheumatology 02/03/21 Luz Lewis MD [address] [place] [address] Referring Physician Surgery 12/14/21 documented as of this encounter
--- OUTSIDE RECORDS SUMMARY | 2024-05-03 02:50 | XMS_ITS | Encounter Summary ---
Author Organization [facility] Healthcare Address [address] [place] [address] Care Team Providers Care Construction Teacher Name Role Phone Wilmer Taylor MD Unavailable [phone] Jeffrey Koch MD Unavailable [phone] Luz Lewis MD Unavailable [phone] Jay Argueta MD Primary Care Provider [phone] Raleigh Jay MD PhD Unavailable [phone] Ranjan Cazares MD Unavailable [phone] Encounter Details Date Type Department Care Team (Late st Contact Info) Description 12/28/2022 12:35 PM CDT Treatment [facility] Radiation Oncology [address] [place] [address] Social History Tobacco Use Types Packs/Day Years [...] on file 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 [address] [place] [address] Referring Physician Obstetrics and Gynecology 05/09/12 Jeffrey Koch MD [address] [place] [address] Consulting Physician Rheumatology 02/03/21 Luz Lewis MD [address] [place] [address] Referring Physician Surgery 12/14/21 Raleigh Jay MD PhD [address] [place] [address] Radiation Oncologist Radiation Oncology 12/12/22 Ranjan Cazares MD [address] [facility] [address] [place] [address] Surgeon Thoracic Surgery 12/12/22 documented as of this encounter
--- OUTSIDE RECORDS SUMMARY | 2024-05-03 02:50 | XMS_ITS | Encounter Summary ---
Author Organization 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 ??Interval resolution [...] agrees with it. Electronically signed by: Justin Moralze M.D. Narrative 11/24/2022 5:18 PM CDT EXAMINATION: 1 view chest radiograph Procedure Note Justin Moralez MD - 11/24/2022 EXAMINATION: 1 view chest radiograph IMPRESSION: Comparison made to transplant coordinator radiograph from CT on 10/30/2022. Interval resolution [...] it. Electronically signed by: Justin Moralez M.D. Deepak Peralta MD IMG XR PROCEDURES Final R esult documented in this encounter Visit Diagnoses Not on filedocumented in this encounter Care Teams Dope Worker Relationship Specialty Start Date End Date Sin Mcclure MD [address] [place] [address] PCP - General Internal Medicine 05/15/22 11/28/22 Wilmer Taylor MD [facility] [address] [address] Referring Physician Obstetrics and Gynecology 05/09/12 Jeffrey Koch MD [address] [place] [address] Consulting Physician Rheumatology 02/03/21 Luz Lewis MD [address] [place] [address] Referring Physician Surgery 12/14/21 documented as of this encounter
--- OUTSIDE RECORDS SUMMARY | 2024-05-03 02:50 | XMS_ITS | Encounter Summary ---
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 Gender Identity Not on file Sexual Orientation Not on file documented as of this encounter Plan of Treatment Not on file documented as of this encounter Procedures Procedure Name Priority Date/Time Associated Diagnosis Comments RAD ONC ARIA SESSION SUMMARY 01/01/2023 10:15 AM CDT documented in this encounter Results * RAD ONC ARIA SESSION SUMMARY (01/01/2023 10:15 AM CDT) Course Name [id number] ARIA Course Plan Date 12/20/2022 12:55 PM ARIA Elapsed Days 0 ARIA Treatment Start Date 01/01/2023 ARIA Treatment Site [id number] ARIA Dose Given To Date (cGy) 1,100 ARIA Session Dosage Given (cGy) 1,100 ARIA Plan ID SBRT RLL LUNG ARIA Fractions Treated 1 ARIA Prescribed Dose Per Fraction (cGy) 1,100 ARIA Prescribed Total Dose (cGy) 5,500 ARIA 01/01/2023 10:1 5 AM CDT us Not In File Miscellaneous RADIATION ONCOLOGY ORD ERABLES Final Result ARIA documented in this encounter Visit Diagnoses Not on filedocumented in this encounter Care Teams Campaign Specialist Relationship Specialty Start Date End Date Jay Argueta MD [address] [place] [address] PCP - General Family Practice 11/29/22 10/07/23 Wilmer Taylor MD [address] [facility] [address] [place] [address] Referring Physician Obstetrics and Gynecology 05/09/12 Jeffrey Koch MD [address] [place] [address] Consulting Physician Rheumatology 02/03/21 Luz Lewis MD [address] [place] [address] Referring Physician Surgery 12/14/21 Raleigh Jay MD PhD [address] [place] [address] Radiation Oncologist Radiation Oncology 12/12/22 Ranjan Cazares MD [address] [facility] [address] [place] [address] Surgeon Thoracic Surgery 12/12/22 documented as of this encounter
--- OUTSIDE RECORDS SUMMARY | 2024-05-03 02:51 | XMS_ITS | Encounter Summary ---
Author Organization [facility] Healthcare Address [address] [place] [address] Care Team Providers Care Tile Designer Name Role Phone Terry Bender DO Primary Care Provider [phone] Wilmer Taylor MD Unavailable [phone] Jeffrey Koch MD Unavailable [phone] Encounter Details Date Type Department Care Team (Latest Contact Info) Description 09/08/2021 12:40 PM CDT - 09/08/2021 11:59 PM CDT Hospital Encounter [facility] [address] [place], [place] [id number] Diagnosis unknown Discharge Disposition: Discharge to home or self care Social History Tobacco Use Types Packs/Day Years Used Date Smoking Tobacco: Former Cigarettes 0.3 50 1 969 - 2015 Smokeless Tobacco: Never Alcohol Use Standard Drinks/Week Comments Never 0 (1 standard drink = 0.6 oz pur e alcohol) AUDIT-C Answer Date Recorded Q1: How often do you have a drink containing alc ohol? Never 09/01/2021 Average Number of Drinks Not on file 022 Q3: How often do you have si x or more drinks on one occasion? 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 Gender Identity Not on file Sexual Orientation Not on file documented as of this encounter Medications at Time of Discharge acetaminophen (TYLENOL) 500 mg tablet Take 2 tablets (1,000 mg total) by mouth every 6 (six) hours as needed for pain 60 tablet 2 04/08/2019 amLODIPine (NORVASC) 10 mg tabletIndication s:hypertension Take [...] total) by mouth every morning 02/26/2021 omega 1-mbu-cur-fish oil 100-160-1,000 mg capsuleIndicatio ns:hypertriglyce ridemia Take 1 capsule by mouth daily after dinner polyethylene glycol (MIRALAX) 17 gram packetIndication s:constipation Take 1 packet (17 g total) by mouth daily 09/15/2021 amLODIPine (NORVASC) 10 mg tabletIndication s:hypertension 10 mg daily after lunch 2 budesonide-formo teroL (SYMBICORT) 160-4.5 mcg/actuation inhalerIndicatio ns:Bronchospasm Prevention with COPD Inhale 2 puffs 2 (two) times a day 4 folic acid (FOLVITE) 1 mg tabletIndication s:Folate Deficiency Take 1 tablet (1 mg total) by mouth daily after lunch 90 tablet 3 02/28/2021 3 losartan (COZAAR) 25 mg tabletIndication s:hypertension Take 25 mg by mouth daily after lunch 2 losartan (COZAAR) 25 mg tabletIndication s:hypertension Take [...] 7 days Every Sunday 60 tablet 1 02/28/2021 2 nicotine (NICODERM CQ) 21 mgIndications:Sm oking Cessation Place 1 patch on the skin daily 3 oxyCODONE (ROXICODONE) 5 mg immediate release tabletIndication s:Pain Take 1 tablet (5 mg total) by mouth every 4 (four) hours as needed for pain 20 tablet 09/14/2021 2 documented as of this encounter Discharge Disposition Disposition Code Departure Means Destination Discharge to home or self care documented in this encounter Plan of Treatment Not on file documented as of this encounter Procedures Procedure Name Priority Date/Time Associated Diagnosis Comments PET OUTSIDE CONSULT Routine 09/08/2021 1 2:40 PM CDT Diagnosis unknown documented in this encounter Results * PET Outside Consult (09/08/2021 12:40 PM CDT) Anatomical Region Laterality Modality N/A Nuclear Medicine 09/08/2021 2:17 PM CDT Impressions 09/08/2021 2:23 PM CDT 1. ??FDG avid right upper lobe lung cancer without PET evidence of regional wil or distant metastatic disease. 2. ??Marked FDG uptake within a lymph node closely abutting the right parotid gland, which may represent metastatic disease from a separate primary such as head and neck cancer. ??Recommend tissue sampling for further evaluation. 3. ??Unchanged 5 mm nodule in the right lung apex. ??Recommend continued attention on follow up imaging. The findings, conclusions and recommendations within this report do not replace the initial findings, conclusions ??and recommendations made at the facility where the study was performed based upon the imaging and clinical condition at that time. ??Comparison with the prior report and clinical history is necessary. ??The provided images may or may not represent the [place] source data set and thus may contain changes that may lower the accuracy of this second-opinion interpretation. Dictated by: Herberth May M.D. The radiology attending physician has personally reviewed this study, and had reviewed and/or edited this written report and agrees with it. Electronically signed by: Sivan Mcbride M.D. Narrative 09/08/2021 2:23 PM CDT EXAMINATION: RADIOLOGY CONSULTATION ON OUTSIDE IMAGING STUDY STUDY INITIALLY PERFORMED: 09/08/2021, images acquired at [facility]. ?? TYPE OF STUDY: FDG-PET/CT. The images available for review consisted of axial attenuation-corrected and uncorrected PET images and axial CT images. ??Oral contrast administration was not performed. Intravenous contrast administration was not performed. The total scanned area was skull base to the proximal thighs. The mean liver SUV (reported for quality assurance lead purposes) is 2.5. The study was interpreted on the [email or web address] workstation. The protocol was adequate to address the clinical question. ??The outside final report was not available at the time of this second opinion interpretation. DATE OF CONSULTATION: 09/08/2021. HISTORY: 71-year-old woman with biopsy-proven right upper lobe non-small cell lung cancer. ??Initial staging. Initial treatment strategy. COMPARISON: CT of the neck and chest dated 08/11/2021. FINDINGS: The biopsy-proven right upper lobe lung cancer is FDG avid with maximum SUV of 6.3 and measures 1.6 x 1.6 cm (image 198). There is no suspicious FDG uptake within mediastinal or hilar lymph nodes. There is marked FDG uptake within a lymph node closely abutting the right parotid gland with maximum SUV of 8.6 measuring 2.6 x 1.5 cm (image 108) with a medial focus of photopenia likely representing necrosis, similar to the prior neck CT. Likely physiologic FDG uptake is seen within posterior neck muscles. Additional CT findings: Bilateral lens replacements. ??Coronary and carotid artery calcifications. ??Emphysema. ??Old granulomatous disease. ??Colonic diverticulosis. ??Degenerative changes throughout the spine. There is reticulation in the left anterior lung likely related to scarring/fibrosis. ??There is an unchanged 5 mm nodule in the right lung apex (image 165). Procedure Note Mhlanga, Sivan Chipo, MD - 09/08/2021 EXAMINATION: RADIOLOGY CONSULTATION ON OUTSIDE IMAGING STUDY STUDY INITIALLY PERFORMED: 09/08/2021, images acquired at [facility]. TYPE OF STUDY: FDG-PET/CT. The images available for review consisted of axial attenuation-corrected and uncorrected PET images and axial CT images. Oral contrast administration was not performed. Intravenous contrast administration was not performed. The total scanned area was skull base to the proximal thighs. The mean liver SUV (reported for quality assurance lead purposes) is 2.5. The study was interpreted on the [email or web address] workstation. The protocol was adequate to address the clinical question. The outside final report was not available at the time of this second opinion interpretation. DATE OF CONSULTATION: 09/08/2021. HISTORY: 71-year-old woman with biopsy-proven right upper lobe non-small cell lung cancer. Initial staging. Initial treatment strategy. COMPARISON: CT of the neck and chest dated 08/11/2021. FINDINGS: The biopsy-proven right upper lobe lung cancer is FDG avid with maximum SUV of 6.3 and measures 1.6 x 1.6 cm (image 198). There is no suspicious FDG uptake within mediastinal or hilar lymph nodes. There is marked FDG uptake within a lymph node closely abutting the right parotid gland with maximum SUV of 8.6 measuring 2.6 x 1.5 cm (image 108) with a medial focus of photopenia likely representing necrosis, similar to the prior neck CT. Likely physiologic FDG uptake is seen within posterior neck muscles. Additional CT findings: Bilateral lens replacements. Coronary and carotid artery calcifications. Emphysema. Old granulomatous disease. Colonic diverticulosis. Degenerative changes throughout the spine. There is reticulation in the left anterior lung likely related to scarring/fibrosis. There is an unchanged 5 mm nodule in the right lung apex (image 165). IMPRESSION: 1. FDG avid right upper lobe lung cancer without PET evidence of regional wil or distant metastatic disease. 2. Marked FDG uptake within a lymph node closely abutting the right parotid gland, which may represent metastatic disease from a separate primary such as head and neck cancer. Recommend tissue sampling for further evaluation. 3. Unchanged 5 mm nodule in the right lung apex. Recommend continued attention on follow up imaging. The findings, conclusions and recommendations within this report do not replace the initial findings, conclusions and recommendations made at the facility where the study was performed based upon the imaging and clinical condition at that time. Comparison with the prior report and clinical history is necessary. The provided images may or may not represent the [place] source data set and thus may contain changes that may lower the accuracy of this second-opinion interpretation. Dictated by: Herberth May M.D. The radiology attending physician has personally reviewed this study, and had reviewed and/or edited this written report and agrees with it. Electronically signed by: Sivan Mcbride M.D. Ranjan Cazares MD IMG PET PROCEDURES Fin al Result documented in this encounter Visit Diagnoses Diagnosis Diagnosis unknown documented in this encounter Care Teams Tile Designer Relationship Specialty Start Date End Date Terry Bender DO PCP - General Internal Medicine 01/03/18 05/14/22 Wilmer Taylor MD [address] [address] Referring Physician Obstetrics and Gynecology 05/09/12 Jeffrey Koch MD [address] [place] [address] Consulting Physician Rheumatology 02/03/21 documented as of this encounter
--- OUTSIDE RECORDS SUMMARY | 2024-05-03 02:51 | XMS_ITS | Encounter Summary ---
Author Organization [facility] Address [address] [facility] [address] [place] [address] Phone Care Team Providers Care Information Security Specialist Name Role Phone Terry Bender Primary Care Provider [phone] Wilmer Taylor MD Unavailable [phone] Jeffrey Koch MD Unavailable [phone] Encounter Details Date Type Department Care Team (Late st Contact Info) Description 09/26/2021 Telephone [facility] Surgery [address] [facility] [address] [place] [address] Telma Chong RMA Social History Tobacco Use Types Packs/Day Years Used Date Smoking Tobacco: Former Cigarettes 0.3 50 1 969 - 2015 Smokeless Tobacco: Never Alcohol Use Standard Drinks/Week Comments Never 0 (1 standard drink = 0.6 oz pur e alcohol) AUDIT-C Answer Date Recorded Q1: How often do you have a drink containing alc ohol? Never 09/12/2021 Average Number of Drinks Not on file 022 Q3: How often do you have si x or more drinks on one occasion? 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 Pt will get CXR before scheduled appt. documented in this encounter Plan of Treatment Not on file documented as of this encounter Visit Diagnoses Not on filedocumented in this encounter Care Teams Information Security Specialist Relationship Specialty Start Date End Date Terry Bender DO PCP - General Internal Medicine 01/03/18 05/14/22 Wilmer Taylor MD [address] [address] Referring Physician Obstetrics and Gynecology 05/09/12 Jeffrey Koch MD [address] [place] [address] Consulting Physician Rheumatology 02/03/21 documented as of this encounter
--- OUTSIDE RECORDS SUMMARY | 2024-05-03 02:51 | XMS_ITS | Encounter Summary ---
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] on file Legal 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 Gender Identity Not on file Sexual Orientation Not on file documented as of this encounter Last Filed Vital Signs Vital Sign Reading Time Taken Comments Blood Pressure 119/64 12/14/2021 1:05 PM CDT Pulse 69 12/14/2021 1:10 PM CDT Temperature 36.5 ??C (97.7 ??F) 12/14/2021 1 2:30 PM CDT Respiratory Rate 17 12/14/2021 1:10 PM CDT Oxygen Saturation 97% 12/14/2021 1:10 PM CDT Inhaled Oxygen Concentration - - Weight 59.8 kg (131 lb 12.8 oz) 022 11:40 AM CDT Height 162.6 cm (5' 4 ) 12/14/2021 11:4 0 AM CDT Body Mass Index 22.62 12/14/2021 11:40 AM CDT documented in this encounter Discharge Instructions * Attachments The following attachments cannot be sent through Care Everywhere. * Anxiolysis in Adults (Cert Pharmacy Tech) (German) documented in this encounter Medications at Time [...] total) by mouth every morning 02/26/2021 omega 3-ppn-tzv-fish oil 100-160-1,000 mg capsuleIndicatio ns:hypertriglyce ridemia Take [...] 3 methotrexate 2.5 mg tabletIndication s:Rheumatoid Arthritis TAKE 5 TABLETS (12.5 MG TOTAL) BY MOUTH EVERY 7 DAYS EVERY SUNDAY 60 tablet 1 11/08/2021 3 nicotine (NICODERM CQ) 21 mgIndications:Sm oking Cessation Place 1 patch on the skin daily 3 documented as of this encounter Discharge Disposition Disposition Code Departure Means Destination Discharge to home or self care documented in this encounter H&P Notes * Luz Lewis MD - 12/14/2021 11:42 AM CDT Patient seen and examined. No changes since last seen in clinic. Risks, benefits, preop with expectations have been discussed in detail. Consent was obtained. Source Note - Luz Lewis MD - 11/21/2021 12:00 PM CDT Colorectal Surgery Consultation Consult requested by Terry Bender DO for HAWA/AIN3 Chief Complaint: Darrion Guillory is a 71 y.o. female with chief complaint of HAWA/AIN3 . HPI: Darrion Guillory is a 71 y.o. female with history or VIN3/AIN requiring WLE previously. She has been monitored closely for this and was noted to have perianal small acetowhite changes when last examined. She presents today in follow up for this to establish care with a colorectal surgeon. She denies h aving any symptoms. She denies bleeding per rectum, changes in bowel habits, perianal discomfort and itching. Her last colonoscopy was in 2013 and she has a history of polyps (although none on the last with recommendation to repeat 7-10 years). She wishes to proceed with colonoscopy. INTERVAL HISTORY: Patient presents today after exam under anesthesia, anoscopy, acetic acid staining, biopsy of perianal lesions x3 07/06/2021. Path returned AINIII and patient has elected to continue with surveillance. Since last seen, she was diagnosed with lung squamous cell carcinoma and underwent robotic right up per??lobectomy, mediastinal lymph node dissection and intercostal nerve block on 09/12/[address] Cazares for T1N0 disease and she is currently undergoing surveillance for this. She denies any obvious lesions or perianal pain. She follows with Dr. Schmidt soon. Past Medical History: Diagnosis Date ??? Arthritis ??? Hypertension ??? Personal history of other diseases of the circulatory system History of hypertension - (Added by TW Conv) Past Surgical History: Procedure Laterality Date ??? OVARY SURGERY 1994 Cyst x2 removed from overies ??? [place] BREAST SURGERY PROCEDURE UNLISTED Right 1978 Cyst removed from R breast ??? RHINOPLASTY 1989 Deviated septum ??? VULVA SURGERY 03/28/2012 HAWA III excision ??? VULVA SURGERY 03/04/2013 HAWA III excision ??? VULVA SURGERY 11/10/2018 HAWA III excision ??? VULVA SURGERY 04/08/2019 HAWA III excision HOME MEDICATIONS : acetaminophen (TYLENOL) 500 mg tablet amLODIPine (NORVASC) 10 mg tablet ascorbic acid (VITAMIN C) 500 mg tablet,chewable aspirin 81 mg enteric coated tablet budesonide-formoteroL (SYMBICORT) 160-4.5 mcg/actuation inhaler calcium carbonate-vitamin D3 1,500 mg (600mg elemental) -800 unit per tablet famotidine (PEPCID) 20 mg tablet folic acid (FOLVITE) 1 mg tablet losartan (COZAAR) 25 mg tablet methocarbamoL (ROBAXIN) 750 mg tablet methotrexate 2.5 mg tablet nicotine (NICODERM CQ) 21 mg omega 0-hmd-qnf-fish oil 100-160-1,000 mg capsule oxyCODONE (ROXICODONE) 5 mg immediate release tablet polyethylene glycol (MIRALAX) 17 gram packet Allergies Allergen Reactions ??? Omeprazole Rash ??? Amoxicillin Diarrhea ??? Motrin [Ibuprofen] Other (See comments) Patient takes Methotrexate and advised not to take. Social History Tobacco Use ??? Smoking status: Former Smoker Packs/day: 0.25 Years: 50.00 Pack years: 12.50 Start date: 1968 Quit date: 2014 Years since quittin.2 ??? Smokeless tobacco: Never Used Substance Use Topics ??? Alcohol use: Never Family History Problem Relation Age of Onset ??? Breast cancer Other Family history of malignant neoplasm of breast - Relation: Aunt (Added by ANDREY Conv) ??? Colon cancer Other Family history of colon cancer - Relation: Uncle (Added by ANDREY Conv) There is no family history of colorectal cancer or inflammatory bowel disease. Review of Systems: A comprehensive 12 point review of systems was completed by the patient; and reviewed, signed, and scanned into the chart. Constitutional: Negative Head, eyes, ears, nose, and throat: Negative Cardiovascular: Negative Pulmonary: Negative Gastrointestinal: Negative Genitourinary: Negative Motor Patrol Operator/lymphatic: Negative Immunologic: Negative Musculoskeletal: Negative Neurologic: Negative Integumentary: Negative Psychiatric: Negative Endocrine: Negative Physical exam: Vitals: Weight 137 lbs Afebrile, vital signs stable General Exam: No acute distress. Well developed. HEENT: Normocephalic. No scleral icterus. Neck: Supple without lymphadenopathy Cardiovascular: Regular rhythm and rate Chest: Unlabored breathing Abdomen: Soft, nontender, nondistended. Anoperineal Exam: Normal external genitalia and anus. Mild small nonthrombosed external hemorrhoids. Some mild leukoplakia right laterally at the anal verge on a skin tag and and hyperkeratosis focally posteriorly. Digital Rectal Exam: No masses. Normal tone, good squeeze Anoscopy: A lubricated anoscope was placed per rectum. Small non friable internal hemorrhoids were noted. No masses or lesions were noted in the anal canal Musculoskeletal: No deformities. Neurological: Normal gait, no deficits Integumentary: No rashes Psychiatric: Normal mood and affect Assessment/Plan Darrion Guillory is a 71 y.o. female on methotrexate with history or VIN3/AIN requiring WLE previously who underwent exam under anesthesia, anoscopy, acetic acid staining, biopsy of perianal lesions x by me. Path returned AINIII and patient has elected to continue with surveillance. She does have some recurrence of 2 small hyperkeratotic lesions with leukoplakia that are not amenable to excision in clinic. I have again recommended to proceed with EUA and acetic acid staining with excision of these lesions and biopsies of any other areas of concern given her AIN 3 history and new visible lesions. The procedure was discussed with the patient along with perioperative expectations and complications. The surgery was discussed in detail. The risks and benefits were discussed in detailed including: Bleeding (possible transfusion, need for return to operating room to control), infection, recurrence of disease, scarring, anal stenosis, fecal incontinence, urinary retension, and more life-threatening complications such as stroke, pulmonary embolism or DVT, heart attack or . Consent was obtained. She is also overdue for a colonoscopy and she will arrange this locally after she heals from this procedure. The surgery will be scheduled in the near future. Luz Lewis MD [facility] Colorectal Surgery 11/21/21 11:56 AM This note was transcribed using [employer] Speech Recognition software. As a result, there may be unintended grammar and spelling errors. Every attempt is made to have correct dictation. If there are any questions or major errors, please contact me. documented in this encounter Miscellaneous Notes * Op Note - Luz Lewis MD - 12/14/2021 12:33 PM CDT OPERATIVE NOTE SURGEON: Luz Lewis ANESTHESIA: MAC with Local PREOPERATIVE DIAGNOSIS: Perianal lesions, history of VIN3, AIN3 POSTOPERATIVE DIAGNOSIS: Perianal lesions, history of VIN3, AIN3 NAME OF OPERATION: Exam under anesthesia, anoscopy, acetic acid staining, biopsy of perianal lesions x3 INDICATIONS FOR PROCEDURE: The patient is a 71 y.o. female with history or VIN3/AIN requiring WLE previously of her vulva and who previously underwent exam under anesthesia, anoscopy, acetic acid staining, biopsy of perianal lesions x3 on 07/06/2021. She has been monitored closely for this and was noted to have recurrent lesions with leukoplakia when last examined. Risks, benefits, and perioperative expectations were discussed in detail. The patient understands that repeat procedures may be required and that pain and scarring or associated with this. Consent was obtained. INTRAOPERATIVE FINDINGS: Small perianal hyperkeratotic lesion left laterally and small lesion with leukoplakia right laterally and right anteriorly. No intra-anal lesions noted. DESCRIPTION OF PROCEDURE: The patient was brought the operating room, placed under MAC anesthesia in the prone tereza-knife position. The perineum was prepped and draped in normal sterile fashion and a pudendal nerve block was performed using with 45 mL of 0.25% Marcaine, 1 % lidocaine, and bicarbonate soluation. A detailed digital rectal exam was performed which demonstrated the above findings. This noted a small perianal lesion left laterally, right posteriorly and right anteriorlywith leukoplakia. Acetic acid was used to paint the perianal tissues which did not stain any further lesions. These were all excised and treated with Bovie electrocautery. These were labeled appropriately and sent to pathology. Anoscopy demonstrated no intraanal lesions. Hemostasis was obtained. The wounds were cleaned and dried. Bacitracin ointment and 4x4 gauze was applied to the wound along with mesh underwear. The patient was then awakened from anesthesia and taken to recovery in satisfactory condition. I was present throughout. Estimated Blood Loss: <5mL IV Fluids: See Anesthesia records Sponge, Instrument and Needle counts: Correct times two Presence statement: I was present for the entire procedure from start to finish documented in this encounter Plan of Treatment Not on file documented as of this encounter Procedures Procedure Name Priority Date/Time Associated Diagnosis Comments SURGICAL PATHOLOGY Routine 12/14/2021 12 :24 PM CDT AIN grade III EXAM UNDER ANESTHESIA 12/14/2021 12:04 PM CDT AIN grade III documented in this encounter Results * Surgical pathology (12/14/2021 12:24 PM CDT) Tissue (Mass/Tumor/Lesio n) 12/14/2021 12:22 PM CDT Comment:Placed in Formalin Narrative PATHOLOGY [facility] - 12/16/2021 1:56 PM CDT [address] ??[address] Tele: ?? Katherine Rosales MD - Director Utilization Management Note to Patients: This report may contain [...] can answer questions and explain the details. SURGICAL PATHOLOGY REPORT Patient Name: ??DARRION GUILLORYAnkush Address: ??[facility] [place], [place] [address] Gender: ??F : ??1950 (Age: 71) Service: ??Surgery Location: ??[facility], ?? Hospital #: ??[id number] Patient Type: ??[facility] SAME DAY SURGERY Accession #: ? [id number] Taken: ? 12/14/2021 Received ? 12/14/2021 Reported: ? 12/16/2021 Physician(s): ? Luz Lewis M.D. Terry Bender D.O. DIAGNOSIS: Perianal lesions, excision: ? - High-grade squamous intraepithelial lesion (HSIL/moderate to severe dysplasia/AIN 2-3) [facility]/12/16/2021 13:56 Examining Pathologist: Gregory Escobar M.D. Report Reviewed and Electronically Signed By ??Gregory Escobar M.D. SPECIMEN TYPE: A: PERIANAL LESION CLINICAL IMPRESSION AND HISTORY: AIN grade 3. GROSS DESCRIPTION: Received in formalin in a single container with the patient's name, DARRION GUILLORY ??labeled perianal lesions and contains three pickard irregular tissue fragments measuring 0.9 x 0.3 x 0.2 cm in aggregate. Due to the color and size of the specimen, hematoxylin is used. The specimen is filtered and submitted entirely in cassette A1. ?? cu/12/14/2021 17:52 ? LKB,CU MICROSCOPIC DESCRIPTION: Sections from the perianal lesions show polypoid fragments squamous epithelium with viral cytopathic features of broad areas of partial and full thickness dysplastic change of the squamous epithelium. ??A p16 immunohistochemical stain shows variable positive staining of the epithelium. ??Focal invagination of the epithelium is evident simulating potential early invasive component. ??Deeper levels are reviewed show no distinct convincing invasive material. ??A pancytokeratin stain is performed to assess for potential invasion; pancytokeratin stain shows no distinct invasive component. Clerical Data Follows A; [id number], [id number], [id number] REPORT IMAGES AND/OR SCANNED DOCUMENTS ONLY VIEWABLE IN PDF FORMAT The immunohistochemical test(s) cited in this report, if any, was developed and its performance characteristics determined by [facility] Pathology Department. ??It has not been cleared or approved by the U.S. Food and Drug Administration. ??The FDA has determined that such clearance or approval is not necessary. ??This test is used for clinical purposes. ??It should not be regarded as investigational or for research. ??[facility] is certified under the Clinical Laboratory Improvement Amendments of 1988 (CLIA) as qualified to perform high complexity testing. ??Immunostains were performed on formalin-fixed paraffin embedded tissue using a polymer diaminobenzidine chromogen detection system. Antibodies used may include clone SP1 (rabbit monoclonal, estrogen receptor), clone 1E2 (rabbit monoclonal progesterone receptor), Ki-67 (rabbit monoclonal, 30-9), and [id number] (rabbit polyclonal, c-kit). 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 , Indications: Pre-Emptive AnalgesiaIndications:Pre-Emptiv e Analgesia Given 12/14/2021 11:29 AM CDT 1,000 mg gabapentin (NEURONTIN) capsule 300 mg 300 mg, oral, Once, On Sun12/14/21 at 1200, For 1 dose, Pre-Op, Give upon arrival to holding area. , Indications: Pre-Emptive AnalgesiaIndications:Pre-Emptiv e Analgesia Given 12/14/2021 11:29 AM CDT 300 mg documented in this encounter Discontinued Medications Medication Sig Discontinue Reason Start Date End Da te oxyCODONE (ROXICODONE) 5 mg immediate release tabletIndications:Pain Take 1 tablet (5 mg total) by mouth every 4 (four) hours as needed for pain Therapy completed 09/14/2021 12/14/2021 documented as of this encounter Active and Recently Administered Medications Times are shown in CDT. Scheduled Medication Order 12/12/2021 12/13/2021 12/14/2021 acetaminophen (TYLENOL) tablet 1,000 mg (COMPLETED) 1,000 mg, oral, Once, On Sun12/14/21 at 1200, For 1 dose, Pre-Op, Give upon arrival to holding area. , Indications: Pre-Emptive Analgesia 1129 (Given - Provid er: Delon Schneider RN) gabapentin (NEURONTIN) capsule 300 mg (COMPLETED) 300 mg, oral, Once, On Sun12/14/21 at 1200, For 1 dose, Pre-Op, Give upon arrival to holding area. , Indications: Pre-Emptive Analgesia 1129 (Given - Provid er: Delon Schneider RN) PRN Medication Order 12/12/2021 12/13/2021 12/14/2021 acetic acid (bulk) 5 % topical solution (CANCELED) As needed, Starting on Sun12/14/21 at 1222, Intra-Op 1222 (Given - Provid er: Luz Lewis MD) bacitracin 500 unit/gram ointment (CANCELED) As needed, Starting on Sun12/14/21 at 1221, Intra-Op 1221 (Given - Provid er: Luz Lewis MD) lidocaine 1% w/ EPINEPHrine 1:100,000 (20 mL), bupivacaine 0.25% (20 mL), sodium bicarbonate 8.4% (8 mL) solution (CANCELED) As needed, Starting on Sun12/14/21 at 1220, Intra-Op 1220 (Given - Provid er: Luz Lewis MD) sodium chloride 0.9% irrigation (CANCELED) As needed, Starting on Sun12/14/21 at 1221, Intra-Op 1221 (Given - Provid er: Luz Lewis MD - Comment: PRN on sterile field) documented in this encounter Orders Medications Ordered That Rubén ht Not Have Been Administered Count Last Ordered Date First Ordered Date acetic acid (bulk) 5 % topical solution 1 0 12/14/2021 bacitracin 500 unit/gram ointment 1 022 lidocaine 1% w/ EPINEPHrine 1:100,000 (20 mL), bupivacaine 0.25% (20 mL), sodium bicarbonate 8.4% (8 mL) solution 1 12/14/2021 sodium chloride 0.9% irrigation 1 2 Diet Count Last Ordered Date First Orde red Date ADULT DISCHARGE DIET 1 12/14/2021 Nursing Count Last Ordered Date First Orde red Date ACTIVITY 1 12/14/2021 DISCHARGE INSTRUCTIONS 2 12/14/2021 FOLLOW UP WITH ESTABLISHED PROVIDER 1 12/14 NURSING COMMUNICATION 5 12/14/2021 PATIENT MAY SHOWER 1 12/14/2021 WOUND CARE 1 12/14/2021 Discharge Count Last Ordered Date First Orde red Date DISCHARGE PATIENT 1 12/14/2021 documented in this encounter Care Teams Plastic Panel Installer Relationship Specialty Start Date End Date Terry Bender DO PCP - General Internal Medicine 01/03/18 05/14/22 Wilmer Taylor MD [address] [address] Referring Physician Obstetrics and Gynecology 05/09/12 Jeffrey Koch MD [address] [place] [address] Consulting Physician Rheumatology 02/03/21 Luz Lewis MD [address] [place] [address] Referring Physician Surgery 12/14/21 documented as of this encounter
--- OUTSIDE RECORDS SUMMARY | 2024-05-03 02:51 | XMS_ITS | Encounter Summary ---
Author Organization [facility] Address [address] [facility] [address] [place] [address] Phone Care Team Providers Care Hydraulic Strainer Operator Name Role Phone Terry Bender DO Primary Care Provider [phone] Wilmer Taylor MD Unavailable Jeffrey Koch MD Unavailable [phone] Reason for Visit * Consultation (Routine) - Closed Specialty Diagnoses / Procedures Referred By Contac t Referred To Contact Cardiothoracic Surgery Diagnoses Malignant neoplasm of lung, unspecified laterality, unspecified part of lung (HCC) Terry Bender DO Phone: tel: fax: [facility] (All Locations) Referral ID Status Reason Start Date Expiration Date V isits Requested Visits Authorized [id number] Closed Specialty Services Required 09/23/2021 10/23/2022 1 1 Encounter Details Date Type Department Care Team (Late st Contact Info) Description 09/27/2021 10:00 AM CDT Office Visit [facility] Surgery [address] [place] [id number] Ranjan Cazares MD [address] [facility] [id number] [place] [address] Malignant neoplasm of lung, unspecified laterality, unspecified part of lung (HCC) Social History Tobacco Use Types [...] on file 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 Gender Identity Not on file Sexual Orientation Not on file documented as of this encounter Last Filed Vital Signs Vital Sign Reading Time Taken Comments Blood Pressure 111/55 09/27/2021 9:33 AM CDT Pulse 76 09/27/2021 9:33 AM CDT Temperature 36.3 ??C (97.4 ??F) 09/27/2021 9:33 AM CD T Respiratory Rate 16 09/27/2021 9:33 AM CDT Oxygen Saturation 95% 09/27/2021 9:33 AM CDT Inhaled Oxygen Concentration - - Weight 59.4 kg (131 lb) 09/27/2021 9:33 AM CDT Height - - Body Mass Index 23.21 09/12/2021 5:10 PM CDT documented in this encounter Progress Notes * Ranjan Cazares MD - 09/27/2021 10:00 AM CDT Images from the original note were not included. Ranjan Cazares M.D., M.P.H. boat fueler [employer] [facility] - voice - fax [facility] Thoracic Surgery Note 09/28/2021 DO Loida Martin [address] Bender: I was pleased to see Loida Guillory in postoperative follow-up. As you know, I performed a robotic assisted right upper lobectomy on September 12, 2021 for a T1b N0 well-differentiated squamous cell carcinoma. She had negative margins and 9- lymph nodes. She has recovered quite nicely from surgery, her incisions look good her chest x-ray shows a well expanded lung. I am going to see her back in 6 monthsfor lung cancer surveillance. Thank you very much. Yours sincerely, Ranjan Cazares MD, MPH Operator Prefinish completed by using [employer] Direct speaking software, therefore, transcriptionvariances may occur. documented in this encounter Plan of Treatment Not on file documented as of this encounter Visit Diagnoses Diagnosis Malignant neoplasm of lung, unspecified laterality, unspecified part of lung (HCC) documented in this encounter Orders Outpatient Referral Count Last Ordered Date Fir st Ordered Date AMB REFERRAL TO CARDIOTHORACIC SURGERY 1 Appointment Requests Count Last Ordered Date Fi rst Ordered Date ONCBCN CLINIC APPOINTMENT REQUEST 1 023 documented in this encounter Care Teams Hydraulic Strainer Operator Relationship Specialty Start Date End Date Terry Bender DO PCP - General Internal Medicine 01/03/18 05/14/22 Wilmer Taylor MD [address] [facility] [address] [place] [address] Referring Physician Obstetrics and Gynecology 05/09/12 Jeffrey Koch MD [address] [place] [address] Consulting Physician Rheumatology 02/03/21 documented as of this encounter
--- OUTSIDE RECORDS SUMMARY | 2024-05-03 02:51 | XMS_ITS | Encounter Summary ---
Author Organization [facility] Address [address] [place] [address] [place] [address] Phone Care Team Providers Care Public Space Attendant Name Role Phone Terry Bender Primary Care Provider [phone] Wilmre Taylor MD Unavailable [phone] Jeffrey Koch MD Unavailable [phone] Reason for Referral * Diagnostic Imaging (Routine) - Closed Specialty Diagnoses / Procedures Referred By Contac t Referred To Contact Diagnoses Malignant neoplasm of upper lobe of right lung (HCC) Procedures XR Chest Pa Lateral 2 Views Ranjan Cazares MD [address] [facility] [id number] [place] [address] Phone: tel: fax: [facility] [address] [address] Referral ID Status Reason Start Date Expiration Date Visits Re quested Visits Authorized [id number] Closed 09/26/2021 10/26/2022 1 1 Encounter Details Date Type Department Care Team (Late st Contact Info) Description 09/26/2021 Orders Only [facility] [address] [place] [address] Ranjan Cazares MD [address] [facility] [id number] [place] [address] Malignant neoplasm of upper lobe of right lung (CMS/HCC) (HCC) (Primary Dx) Social History Tobacco Use [...] on file 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 It should read Surgical changes noted compatible with right upper lobectomy . Electronically signed by: Sundeep Jenkins M.D. Impressions 09/27/2021 8:59 AM CDT Comparison is made to prior chest radiograph 09/14/2021. Surgical changes noted compatible with right upper extremity. There is a small/moderate right apical hydropneumothorax noted. The left hemithorax is clear. The heart size is normal. Electronically signed by: Sundeep Jenkins M.D. Narrative 09/27/2021 8:59 AM CDT EXAMINATION: 2 view chest radiograph Procedure Note Sundeep Jenkins MD - 09/27/2021 EXAMINATION: 2 view chest radiograph IMPRESSION: Comparison is made to prior chest radiograph 09/14/2021. Surgical changes noted compatible with right upper extremity. There is a small/moderate right apical hydropneumothorax noted. The left hemithorax is clear. The heart size is normal. Electronically signed by: Sundeep Jenkins M.D. Ranjan Cazares MD IMG XR PROCEDURES Edit ed Result - Final documented in this encounter Visit Diagnoses Diagnosis Malignant neoplasm of upper lobe of right lung (HCC)- Primary Malignant neoplasm of upper lobe of right lung (HCC) documented in this encounter Care Teams Public Space Attendant Relationship Specialty Start Date End Date Terry Bender DO PCP - General Internal Medicine 01/03/18 05/14/22 Wilmer Taylor MD [address] [address] Referring Physician Obstetrics and Gynecology 05/09/12 Jeffrey Koch MD [address] [place] [address] Consulting Physician Rheumatology 02/03/21 documented as of this encounter
--- OUTSIDE RECORDS SUMMARY | 2024-05-03 02:51 | XMS_ITS | Encounter Summary ---
Author Organization [facility] Address [address] [place] [address] Care Team Providers Care Web Press Operator Apprentice Name Role Phone Terry Bender DO Primary Care Provider [phone] Wilmer Taylor MD Unavailable [phone] Jeffrey Koch MD Unavailable [phone] Reason for Visit * Auth/Cert Specialty Diagnoses / Procedures Referred By Micah t Referred To Contact Diagnoses History of lobectomy of lung History of lobectomy of lung [Z90.2] Procedures NE THORACOSCOPY SURG LOBECTOMY NA Referral ID Status Reason Start Date Expiration Date Visits Re quested Visits Authorized [id number] 1 1 Encounter Details Date Type Department Care Team (Latest Contact Info) Description 09/14/2021 7:11 AM CDT - 09/14/2021 11:59 PM CDT Hospital Encounter [facility] Radiology [address] [place] [address] Discharge Disposition: Discharge to home or self [...] on file 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 Gender Identity Not on file Sexual Orientation [...] total) by mouth every morning 02/26/2021 omega 4-goc-xpe-fish oil 100-160-1,000 mg capsuleIndicatio ns:hypertriglyce ridemia Take [...] Priority Date/Time Associated Diagnosis Comments XR CHEST PA LATERAL 2 VIEWS IP Routine 09/14/2021 7:56 AM CDT documented in this encounter Results * XR Chest Pa Lateral 2 Views (09/14/2021 7:56 AM CDT) Anatomical Region Laterality Modality Body, Chest N/A Computed Radiogr aphy 09/14/2021 8:52 AM CDT Impressions 09/14/2021 9:46 AM CDT The current study is compared with the prior radiograph dated 09/13/2021 at 12:20 PM Patient is status post right upper lobectomy and mediastinal lymph node dissection. Unchanged small right apical pneumothorax. No left pneumothorax. No pneumonic consolidation or pulmonary edema. There is some blunting of the costophrenic angles, possible small bilateral pleural effusions. The cardiomediastinal silhouette is stable. Calcified hilar lymph nodes are present. Dictated by: Norma Lino MD The radiology attending physician has personally reviewed this study, and had reviewed and/or edited this written report and agrees with it. Electronically signed by: Leo Hamilton III, M.D. Narrative 09/14/2021 9:46 AM CDT EXAMINATION: XR CHEST PA LATERAL 2 VIEWS Procedure Note Leo Hamilton III, MD - 09/14/2021 EXAMINATION: XR CHEST PA LATERAL 2 VIEWS IMPRESSION: The current study is compared with the prior radiograph dated 09/13/2021 at 12:20 PM Patient is status post right upper lobectomy and mediastinal lymph node dissection. Unchanged small right apical pneumothorax. No left pneumothorax. No pneumonic consolidation or pulmonary edema. There is some blunting of the costophrenic angles, possible small bilateral pleural effusions. The cardiomediastinal silhouette is stable. Calcified hilar lymph nodes are present. Dictated by: Norma Lino MD The radiology attending physician has personally reviewed this study, and had reviewed and/or edited this written report and agrees with it. Electronically signed by: Leo Hamilton III, M.D. Maribel Walker TRANSIT MIXER OPERATOR IMG XR PROCEDURES Final Result documented in this encounter Visit Diagnoses Not on filedocumented in this encounter Care Teams Web Press Operator Apprentice Relationship Specialty Start Date End Date Terry Bender DO PCP - General Internal Medicine 01/03/18 05/14/22 Wilmer Taylor MD [address] [address] Referring Physician Obstetrics and Gynecology 05/09/12 Jeffrey Koch MD [address] [place] [address] Consulting Physician Rheumatology 02/03/21 documented as of this encounter
--- OUTSIDE RECORDS SUMMARY | 2024-05-03 02:51 | XMS_ITS | Encounter Summary ---
Author Organization [facility] Address [address] [place] [address] [place] [address] Phone Care Team Providers Care Jinriksha Driver Name Role Phone Terry Bender Primary Care Provider [phone] Wilmer Taylor MD Unavailable [phone] Jeffrey Koch MD Unavailable [phone] Reason for Visit * Reason Comments Follow-up Encounter Details Date Type Department Care Team (Latest Contact Info) Description 12/05/2021 9:45 AM CDT Office Visit [facility] Gynecology/Oncology [address] [place] [address] Sinan Schmidt MD [address] [place], [place] [id number] 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) Social History Tobacco Use Types [...] on file 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 Gender Identity Not on file Sexual Orientation Not on file documented as of this encounter Last Filed Vital Signs Vital Sign Reading Time Taken Comments Blood Pressure 126/62 12/05/2021 9:50 AM CDT Pulse 83 12/05/2021 9:50 AM CDT Temperature 36.2 ??C (97.1 ??F) 12/05/2021 9:50 AM CD T Respiratory Rate 16 12/05/2021 9:50 AM CDT Oxygen Saturation 97% 12/05/2021 9:50 AM CDT Inhaled Oxygen Concentration - - Weight 61.2 kg (135 lb) 12/05/2021 9:50 AM CDT Height 162.6 cm (5' 4 ) 12/05/2021 9:50 AM CDT Body Mass Index 23.17 12/05/2021 9:50 AM CDT documented in this encounter Progress Notes * Sinan Schmidt MD - 12/05/2021 9:45 AM CDT Gynecologic Oncology Return Visit Loida Guillory 1950 71 y.o. 12/05/2021 Visit Diagnosis 1. HAWA III (vulvar intraepithelial neoplasia III) Subjective Loida Guillory returns today for follow up for VIN3. It has been quite a year for her. In August of this year she underwent a Robotic-assisted RU lobectomy for a T1b well-differentiated SCCa of the lung, negative margins and 9 lymph nodes. She recently underwent a procedure with Dr. Lewis,exam under anesthesia, anoscopy, acetic acid staining, biopsy of perianal lesions x3 07/06/2021. Path returned AINIII and patient has elected to continue with surveillance. Dr. Lewis recently saw her again in November and is recommending another EUA which is scheduled for 12-14-21. She is on MTX for Rheumatoid arthritis, 12.5 mg a week and folic acid 1 mg daily. Cancer Staging No matching staging information was found for the patient. Oncology History HAWA III (vulvar intraepithelial neoplasia III) 06/20/2012 Initial Diagnosis HAWA III (vulvar intraepithelial neoplasia III) She had initial resection on 04/10/12, followed by repeat in 02/2013. 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 04/08/2019 Surgery WLE vulva and perineal area. A. Vulva and perineum, left, wide local excision: ? - High-grade squamous intraepithelial lesion (HSIL, HAWA-3, severe dysplasia) - Resection margin with no evidence of intraepithelial lesion or dysplasia B. Vulva, left alen-clitoral lesion, biopsy ? - High-grade squamous intraepithelial lesion (HSIL, HAWA-3, severe dysplasia) C. Anus, left perianal lesion, biopsy ? - High-grade squamous intraepithelial lesion (HSIL, AIN-3, severe dysplasia) Review of Systems The patient-completed Review of Systems was reviewed and was scanned as an attachment to this encounter. Patient Active Problem List Diagnosis ??? Anal dysplasia ??? Hypertension ??? Encounter for postoperative care ??? HAWA III (vulvar intraepithelial neoplasia III) ??? 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) ??? Neck pain ??? prison current use 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 drug ??? Malignant neoplasm of lung (CMS/HCC) (HCC) ??? History of lobectomy of lung ??? Bronchogenic lung cancer, right (HCC) ??? COPD (chronic obstructive pulmonary disease) (CMS/HCC) (HCC) ??? AIN grade III Past Medical History: Diagnosis Date ??? Arthritis ??? Hypertension ??? Personal history of other diseases of the circulatory system History of hypertension - (Added by TW Conv) Past Surgical History: Procedure Laterality Date ??? OVARY SURGERY 1994 Cyst x2 removed from overies ??? DC BREAST SURGERY PROCEDURE UNLISTED Right 1978 Cyst removed from R breast ??? RHINOPLASTY 1989 Deviated septum ??? VULVA SURGERY 03/28/2012 HAWA III excision ??? VULVA SURGERY 03/04/2013 HAWA III excision ??? VULVA SURGERY 11/10/2018 HAWA III excision ??? VULVA SURGERY 04/08/2019 HAWA III excision Allergies Allergen Reactions ??? Omeprazole Rash ??? Amoxicillin Diarrhea ??? Motrin [Ibuprofen] Other (See comments) Patient takes Methotrexate and advised not to take. Current Outpatient Medications: ??? acetaminophen (TYLENOL) 500 mg tablet ??? amLODIPine (NORVASC) 10 mg tablet ??? ascorbic acid (VITAMIN C) 500 mg tablet,chewable ??? aspirin 81 mg enteric coated tablet ??? budesonide-formoteroL (SYMBICORT) 160-4.5 mcg/actuation inhaler ??? calcium carbonate-vitamin D3 1,500 mg (600mg elemental) -800 unit per tablet ??? famotidine (PEPCID) 20 mg tablet ??? folic acid (FOLVITE) 1 mg tablet ??? losartan (COZAAR) 25 mg tablet ??? methocarbamoL (ROBAXIN) 750 mg tablet ??? methotrexate 2.5 mg tablet ??? nicotine (NICODERM CQ) 21 mg ??? omega 9-jti-jdu-fish oil 100-160-1,000 mg capsule ??? oxyCODONE (ROXICODONE) 5 mg immediate release tablet ??? polyethylene glycol (MIRALAX) 17 gram packet Social History Tobacco Use ??? Smoking status: Former Smoker Packs/day: 0.25 Years: 50.00 Pack years: 12.50 Start date: 1968 Quit date: 2014 Years since quittin.6 ??? Smokeless tobacco: Never Used Substance and Sexual Activity ??? Drug use: Never Comment: CBD topical ??? Sexual activity: Defer Alcohol Use: Not At Risk ??? Frequency of Alcohol Consumption: Never ??? Average Number of Drinks: Not on file ??? Frequency of Binge Drinking: Never Family History Problem Relation Age of Onset ??? Breast cancer Other Family history of malignant neoplasm of breast - Relation: Aunt (Added by TW Conv) ??? Colon cancer Other Family history of colon cancer - Relation: Uncle (Added by TW Conv) No LMP recorded. Patient is postmenopausal. Objective Vitals There were no vitals taken for this visit. Physical exam: General Appearance: well, in no acute distress. HEENT: within normal limits; sclerae non icteric. Cervical/supraclavicular Area: without adenopathy. Chest: clear to auscultation. Heart: regular rate & rhythm. Back: no CVA or paraspinal tenderness. Abdomen: soft, non-tender, without palpable masses, hernias, or enlarged liver or spleen; no fluid wave. Well healed scar(s) without herniation. Inguinal Area: without adenopathy. BUS/External: without lesions. No vulvar lesions. Urethra/Urethral Meatus: without masses or tenderness. Bladder: non-tender. Vagina: without lesions or abnormal discharge. Bimanual: no adnexal masses, tenderness, or nodularity. Cervix WNL on exam. Rectovaginal: confirms above; rectovaginal septum & parametria clear, posterior cul de sac smooth Skin: without rashes. Lower extremities: without edema or calf tenderness. Performance Score: 0 Lab/Radiology/Diagnostic Review: reviewed Assessment/Plan 1. VIN3 -CHELITA RTC 1 year 2. AIN3. -Follows now with Dr. Lewis and will be having surgery again next week for AIN. 3. Stage I SCCA lung. -s/p robotic excision with negative margins. Sinan Schmidt MD CC: Patient Care Team and PCP: Terry Bender DO Patient Care Team: Terry Bender DO as PCP - General (Internal Medicine) Wilmer Taylor MD as Referring Physician (Obstetrics and Gynecology) Jeffrey Koch MD as Consulting Physician (Rheumatology) Dr. 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
--- OUTSIDE RECORDS SUMMARY | 2024-05-03 02:51 | XMS_ITS | Encounter Summary ---
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 Operating Room [address] [place] [address] Ramana Magaña MD [address] [facility] [place] [address] Ruth Larry CRNA [address] [place] [address] Anesthesia Record Procedure Summary Procedure Name Responsible Anesthesiologist Anesthesia Start Time Anesthesia Stop Time Rectal Exam Under Anesthesia, Acetic Acid Staining, Excision of Anal Lesions with Biopsies Ramana Magaña MD 06/07/22 0721 06/07/22 0751 Events Date Time Event Comment 06/07/2022 0659 0721 An Start 0722 In Room 0722 An Start Data 0727 Start Supplemental O2 Auxili presley O2 flowing at 10 liters per minute 0729 An Induction The patient was reevaluated immediately before moderate or deep sedation use and before anesthesia induction. 0731 Anesthesia Ready 0731 Proc Start 0740 Proc Fin 0743 an stop data 0744 Out of Room 0751 Handoff to RN I completed my handoff to the receiving nurse during which we: 1. Patient identified 2. Responsible provider identified 3. Pertinent medical history reviewed 4. Procedure type and surgical course discussed 5. Intraoperative anesthetic management and any significant issues discussed 6. Expectations and concerns for postop period discussed 7. Questions solicited from receiving nurse 8. Patient disposition at the time of handoff: PACU 0751 An Stop Meds Name Total fentaNYL 50 mcg propofol 50 mg propofol 36.88 mg lidocaine (cardiac) syringe 2 % PF 3 mL Lactated Ringer's (LR) infusion 200 mL * Agents Name O2 N2O Air * Blood No blood administrations on file. Lines, Drains, and Airways Type Details Placement Removal RETIRED Surgical Site 04/08/19; 1327; Gr oin; 03/25/24 (Retired LDA, Removed/Completed by [facility] with LDA Utility); 1213 (Retired LDA, Removed/Completed by [facility] with LDA Utility) 04/08/19 1327 by Bruna May RN 03/25/24 1213 by Discharge Provider, Automatic RETIRED Surgical Site 04/08/19; 1327; Vagina; 03/25/24 (Retired LDA, Removed/Completed by [facility] with LDA Utility); 1213 (Retired LDA, Removed/Completed by [facility] with LDA Utility) 04/08/19 1327 by Bruna May RN 03/25/24 1213 by Discharge Provider, Automatic RETIRED Surgical Site 07/06/21; 1229; Buttocks; 03/25/24 (Retired LDA, Removed/Completed by [facility] with LDA Utility); 1213 (Retired LDA, Removed/Completed by [facility] with LDA Utility) 07/06/21 1229 by Yvette Gillespie, DIGNA 03/25/24 1213 by Discharge Provider, Automatic RETIRED Surgical Site 09/12/21; 1227; Ri ght; Chest; Robotic access sites x4; 03/25/24 (Retired LDA, Removed/Completed by [facility] with LDA Utility); 1213 (Retired LDA, Removed/Completed by [facility] with LDA Utility) 09/12/21 1227 by Jin Mckee RN 03/25/24 1213 by Discharge Provider, Automatic RETIRED Surgical Site 12/14/21; 1222; Sharlene-anal; 03/25/24 (Retired LDA, Removed/Completed by [facility] with LDA Utility); 1213 (Retired LDA, Removed/Completed by [facility] with LDA Utility) 12/14/21 1222 by Georgette Kilgore RN 03/25/24 1213 by Discharge Provider, Automatic Peripheral IV Placement Date: 06/07/22; Placement Time: 628; Catheter Size: 20 G; Orientation: Right; Location: Wrist; Site Prep: Chlorhexidine; Technique: Anatomical landmarks; Removal Date: 06/07/22; Removal Time: 90406/07/22 06 by Deborah Long, DIGNA 06/07/22 09 by Jailyn Moraes, DIGNA documented in this encounter Social History Tobacco Use Types Packs/Day Years [...] on file Legal Sex Female 10:10 AM VEIN ACCESS TECHNICIAN Gender Identity Not on file Sexual Orientation Not on file documented as of this encounter OR Notes * Anesthesia Postprocedure Evaluation - Ramana Magaña MD - 06/07/2022 9:27 AM CST Patient: Loida Guillory Procedure Summary Date: 06/07/22 Room / Location: [facility] [place] [facility] OPERATING ROOM 11 / [facility]PER[facility] Anesthesia Start: 720 Anesthesia Stop: 750 Procedure: Rectal Exam Under Anesthesia, Acetic Acid Staining, Excision of Anal Lesions with Biopsies Diagnosis: 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]) Surgeons: Luz Lewis MD Responsible Provider: Ramana Magaña MD Anesthesia Type: general/TIVA ASA Status: 3 Anesthesia Type: general/TIVA Last vitals BP 109/61 Pulse 66 Temp 36.1 ??C (97 ??F) (Transdermal) Resp 12 SpO2 98% Anesthesia Post Evaluation Patient location during evaluation: PACU Patient participation: complete - patient participated Level of consciousness: follows simple commands and fully awake Pain score: 0 Pain management: adequate Airway patency: adequate Anesthetic complications: no Cardiovascular status: acceptable and hemodynamically stable Respiratory status: acceptable and room air Hydration status: acceptable Pt is: normothermic Nausea/Vomiting status: none No notable events documented. ACCESS TECHNICIAN * Anesthesia Preprocedure Evaluation - Ramana Magaña MD - 06/07/2022 6:52 AM CST Images from the original note were not included. Anesthesia Evaluation Loida Mariscal is a 71 y.o. female Procedure(s): Rectal Exam Under Anesthesia, Acetic Acid Staining, Excision of Anal Lesions with Biopsies Pre-Op Diagnosis Codes: * AIN grade III [D01.3] NPO: after MN HISTORY Past Medical History Information obtained from: patient and chart. Cardiovascular + Hypertension Typical systolic BP - 130 Typical diastolic BP - 80 Pertinent negatives: DE ; valvular heart disease and atrial fibrillation Respiratory + COPD Pertinent negatives: no O2 use outside the hospital Gastrointestinal + GERD - on daily therapy. Asymptomatic. Endocrine / Other + Cancer history Cancer type: Lung CA s/p RUL resection 09/11. + Rheumatological disease - rheumatoid arthritis. Functional Capacity Functional capacity: 4-6 METs Review of Systems + SOB (chronic, stable) + hard of hearing (R Ear) Pertinent negatives: productive cough; recent cold/flu; fever; chest pain; nausea; dentures/partials and chipped/loose teeth Patient Active Problem List Diagnosis ??? Anal dysplasia ??? Hypertension ??? Encounter for postoperative care ??? HAWA III (vulvar intraepithelial neoplasia III) ??? 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) ??? Neck pain ??? group home current use 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 drug ??? Malignant [...] 1994 Cyst x2 removed from overies ??? KS UNLISTED PROCEDURE BREAST Right 1977 Cyst removed from R breast ??? RHINOPLASTY 1989 Deviated septum ??? VULVA SURGERY 03/28/2012 HAWA III excision ??? VULVA SURGERY 03/04/2013 HAWA III excision ??? VULVA SURGERY 11/10/2018 HAWA III excision ??? VULVA SURGERY 04/08/2019 HAWA III excision OB History No obstetric history on file. Allergies Allergen Reactions ??? Omeprazole Rash ??? Amoxicillin Diarrhea ??? Motrin [Ibuprofen] Other (See comments) Patient takes Methotrexate and advised not to take. Taking? Last Dose Start Date End Date Provider acetaminophen (TYLENOL) 500 mg tablet -- 04/08/19 -- Maria Isabel Horan MD Take 2 tablets (1,000 mg total) by mouth every 6 (six) hours as needed for pain alendronate (FOSAMAX) 70 mg tablet -- -- -- ProviderMesha MD amLODIPine (NORVASC) 10 mg tablet -- 09/14/21 -- Maribel Walker NP Take 1 tablet (10 mg total) by mouth daily after lunch Monitor BP at home and f/u with primary caredoctor for medication management. ascorbic acid (VITAMIN C) 500 mg tablet,chewable -- -- -- Mesha Greer MD aspirin 81 mg enteric coated tablet -- -- -- Mesha Greer MD budesonide-formoteroL (SYMBICORT) 160-4.5 mcg/actuation inhaler -- -- -- Mesha Greer MD calcium carbonate-vitamin D3 1,500 mg (600mg elemental) -800 unit per tablet -- -- -- Mesha Greer MD famotidine (PEPCID) 20 mg tablet -- 02/26/21 -- Mesha Greer MD folic acid (FOLVITE) 1 mg tablet -- 05/15/22 -- Martina Elizabeth PA Take 1 tablet (1 mg total) by mouth daily after lunch losartan (COZAAR) 25 mg tablet -- 09/14/21 -- Maribel Walker NP Take 1 tablet (25 mg total) by mouth daily after lunch Monitor BP at home and f/u with primary caredoctor for medication management. methocarbamoL (ROBAXIN) 750 mg tablet -- 09/14/21 -- Maribel Walker NP Take 1 tablet (750 mg total) by mouth 4 (four) times a day methotrexate 2.5 mg tablet -- 05/15/22 -- Martina Elizabeth PA Take 5 tablets (12.5 mg total) by mouth every 7 days Every Sunday Notes: Supervising MD is Jeffrey Koch MD ICD 10: [M05.741, M05.742] nicotine (NICODERM CQ) 21 mg -- -- -- Mesha Greer MD omega 6-jtn-pgv-fish oil 100-160-1,000 mg capsule -- -- -- Mesha Greer MD polyethylene glycol (MIRALAX) 17 gram packet -- 09/15/21 -- Maribel Walker NP Take 1 packet (17 g total) by mouth daily No current facility-administered medications for this visit. No current outpatient medications on file. Facility-Administered Medications Ordered in Other Visits: ??? acetaminophen (TYLENOL) tablet 1,000 mg, 1,000 mg, oral, Once ??? Carrier Fluids for Secondary Infusion - 0.9% Sodium Chloride, 30 mL, intravenous, PRN ??? dextrose (D10W) 10% bolus 250 mL, 250 mL, intravenous, Once PRN ??? gabapentin (NEURONTIN) capsule 200 mg, 200 mg, oral, Once ??? Lactated Ringer's (LR) infusion, 30 mL/hr, intravenous, Continuous ??? lidocaine PF (XYLOCAINE) 10 mg/mL (1 %) preservative free injection 2-10 mg, 0.2-1 mL, other, Once PRN ??? sodium chloride 0.9% flush 0.5-20 mL, 0.5-20 mL, intra-catheter, PRN ??? sodium chloride 0.9% flush 0.5-20 mL, 0.5-20 mL, intra-catheter, PRN Social History Tobacco Use Smoking Status Former ??? Packs/day: 0.25 ??? Years: 50.00 ??? Pack years: 12.50 ??? Types: Cigarettes ??? Start date: 1968 ??? Quit date: 2014 ??? Years since quittin.1 Smokeless Tobacco Never Alcohol Use: Not At Risk ??? Frequency of Alcohol Consumption: Monthly or less ??? Average Number of Drinks: 1 or 2 ??? Frequency of Binge Drinking: Never Substance and Sexual Activity Drug Use Never Comment: CBD topical Family History Problem Relation Age of Onset ??? Breast cancer Other Family history of malignant neoplasm of breast - Relation: Aunt (Added by TW Conv) ??? Colon cancer Other Family history of colon cancer - Relation: Uncle (Added by TW Conv) There were no vitals filed for this visit. PT: No results found for requested labs within last 720 hours. INR: No results found for requested labs within last 720 hours. APTT: No results found for requested labs within last 720 hours. Hgb A1C: No results found for requested labs within last 720 hours. CBC RBC: No results found for requested labs within last 720 hours. RDW: 05/15/2022: 12.2 % MCHC: 05/15/2022: 35.2 g/dL MCH: 05/15/2022: 33.6 pg (H) MCV: 05/15/2022: 95.5 fL Hct: 05/15/2022: 38.1 % Hgb: 05/15/2022: 13.4 g/dL WBC: 05/15/2022: 9.1 Thousand/uL MPV: 05/15/2022: 10.6 fL Platelets: 05/15/2022: 298 Thousand/uL RDW CV: No results found for requested labs within last 720 hours. RDW Sd: No results found for requested labs within last 720 hours. BMP Glucose: 05/15/2022: 100 mg/dL (H) Calcium: 05/15/2022: 9.7 mg/dL Sodium: 05/15/2022: 139 mmol/L Potassium: 05/15/2022: 4.3 mmol/L CO2: 05/15/2022: 26 mmol/L Chloride: 05/15/2022: 105 mmol/L BUN: 05/15/2022: 18 mg/dL Creatinine: 05/15/2022: 1.05 mg/dL (H) DOS Physical Exam Medical history, medications, and allergies reviewed. Attestation: This PAT evaluation 06/07/2022. Airway Exam: Mallampati: II Cervical ROM: FROM TM distance: normal Cardiovascular Exam: Rate: regular Rhythm: regular Pulmonary Exam: LCTA, left Decreased breath sounds Dental Exam: Otherwise appears intact and missing Current state: Patient's current state is cooperative. Anesthesia Plan ASA 3 My patient is approved for the Anesthesia Controlled Medication protocol when under care of a DIGITAL SOLUTION ARCHITECT Planned anesthesia: General/TIVA Induction: Induction: intravenous. Postoperative Plan: Patient's planned disposition post procedure is Outpatient. Informed Consent: Discussed plan with DIGITAL SOLUTION ARCHITECT. Anesthesia plan and risks discussed with patient and daughter. Plan and Consent Comments: LMA/ETT as needed Discussed possibility of recall Consent and Attending signature: I and/or my designee have discussed the anesthesia plan, benefits, possible alternatives, parental presence at time of induction (if indicated), and clinically relevant risks that may include dental injury, unintentional awareness, and/or other complications. The patient and/or parent/legal guardian understand, and agree to proceed. All questions answered. ACCESS TECHNICIAN documented in this encounter Plan of Treatment Not on file documented as of this encounter Visit Diagnoses Not on filedocumented in this encounter Administered Medications Inactive Administered Medications - up to 3 most recent administrations Medication Order MAR Action Action Date Dose Rate Site fentaNYL (SUBLIMAZE) preservative free injection intravenous, As needed, Starting on Sun06/07/22 at 0729, Anesthesia Intra-op Given 06/07/2022 7:29 AM VEIN ACCESS TECHNICIAN 50 mcg Lactated Ringer's (LR) infusion 30 mL/hr, intravenous, Continuous, Starting on Sun06/07/22 at 0730, Pre-Op, New Bag 06/07/2022 7:21 AM VEIN ACCESS TECHNICIAN lidocaine (cardiac) (XYLOCAINE) preservative free injection intravenous, As needed, Starting on Sun06/07/22 at 0729, Anesthesia Intra-op, Indications: Ventricular ArrhythmiasIndications:Ventricular Arrhythmias Given 06/07/2022 7:29 AM VEIN ACCESS TECHNICIAN 3 mL propofoL (DIPRIVAN) 10 mg/mL IV intravenous, As needed, Starting on Sun06/07/22 at 0729, Anesthesia Intra-op Given 06/07/2022 7:30 AM VEIN ACCESS TECHNICIAN 20 mg Given 06/07/2022 7:29 AM VEIN ACCESS TECHNICIAN 30 mg propofoL (DIPRIVAN) 10 mg/mL IV intravenous, Continuous PRN, Starting on Sun06/07/22 at 0731, Anesthesia Intra-op Rate/Dose Change 06/07/2022 7:37 AM VEIN ACCESS TECHNICIAN 60 mcg/kg/min 23.292 mL/hr New Bag 06/07/2022 7:31 AM VEIN ACCESS TECHNICIAN 75 mcg/kg/min 29.115 mL/ hr documented in this encounter Care Teams Content Checker Relationship Specialty Start Date End Date Sin Mcclure MD [address] [place] [address] PCP - General Internal Medicine 05/15/22 11/28/22 Wilmer Taylor MD [address] [place] [address] Referring Physician Obstetrics and Gynecology 05/09/12 Jeffrey Koch MD [address] [place] [address] Consulting Physician Rheumatology 02/03/21 Luz Lewis MD [address] [place] [address] Referring Physician Surgery 12/14/21 documented as of this encounter
--- OUTSIDE RECORDS SUMMARY | 2024-05-03 02:51 | XMS_ITS | Encounter Summary ---
Author Organization [facility] Address [address] [place] [address] Phone Care Team Providers Care Die Casting Supervisor Name Role Phone Terry Bender Primary Care Provider [phone] Wilmer Taylor MD Unavailable [phone] Jeffrey Koch MD Unavailable [phone] Encounter Details Date Type Department Care Team (Late st Contact Info) Description 09/08/2021 Telephone [facility] Surgery [address] [facility] Advanced Medicine 8th [place] [address] [place] [address] Mary Chong, METAL ENGRAVER [address] [place] [address] Social History Tobacco Use Types Packs/Day Years [...] on file Legal Sex Female 10:10 AM CARDIOVASCULAR RADIOLOGIC TECHNOLOGIST Gender Identity Not on file Sexual Orientation Not on file documented as of this encounter Miscellaneous Notes * Telephone Encounter - Mary Chong NP - 09/08/2021 3:19 PM CDT I spoke with the patient today regarding her PET scan results. 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 We are set for surgery on Sunday. documented in this encounter Plan of Treatment Not on file documented as of this encounter Visit Diagnoses Not on filedocumented in this encounter Care Teams Die Casting Supervisor Relationship Specialty Start Date End Date Terry Bender DO PCP - General Internal Medicine 01/03/18 05/14/22 Wilmer Taylor MD [address] [address] Referring Physician Obstetrics and Gynecology 05/09/12 Jeffrey Koch MD [address] [place] [address] Consulting Physician Rheumatology 02/03/21 documented as of this encounter
--- OUTSIDE RECORDS SUMMARY | 2024-05-03 02:51 | XMS_ITS | Encounter Summary ---
Author Organization [facility] Address [address] [facility] [address] [place] [address] Phone Care Team Providers Care Senior Sales Engineer Name Role Phone Terry Bender DO Primary Care Provider [phone] Wilmer Taylor MD Unavailable [phone] Jeffrey Koch MD Unavailable [phone] Luz Lewis MD Unavailable [phone] Reason for Visit * Consultation (Routine) - Closed Specialty Diagnoses / Procedures Referred By Contac t Referred To Contact Cardiothoracic Surgery Diagnoses Malignant neoplasm of lung, unspecified laterality, unspecified part of lung (HCC) Terry Bender DO Phone: tel: fax: [facility] (All Locations) Referral ID Status Reason Start Date Expiration Date V isits Requested Visits Authorized [id number] Closed Specialty Services Required 03/15/2022 03/16/2023 15 15 Encounter Details Date Type Department Care Team (Late st Contact Info) Description 05/02/2022 8:45 AM RECORDING STUDIO INTERN Office Visit [facility] Surgery [address] [facility] [address] [place] [address] Ranjan Cazares MD [id number] [place] [address] Malignant neoplasm of lung, unspecified laterality, unspecified [...] on file Legal Sex Female 10:10 AM RECORDING STUDIO INTERN Gender Identity Not on file Sexual Orientation Not on file documented as of this encounter Progress Notes * Ranjan Cazares MD - 05/02/2022 8:45 AM CST Images from the original note were not included. e Ranjan Cazares M.D., M.P.H. [place] marshal [facility] - voice - fax [facility] Thoracic Surgery Note 05/02/2022 Loida Guillory 1950 I was pleased to see Loida Guillory in follow-up. As you know, she is a 71 y.o. female here for lung cancer surveillance following a robotic assisted right upper lobectomy in August of 2021 for a T1b [id number] squamous cell carcinoma. She comes to the office today with her daughter. She is feeling well. She has some mild dyspnea on exertion but is able to enjoy life. She denies any cough, hemoptysis, headaches or weight loss. I saw this patient [...] reviewed the chest CT scan from today shows no evidence of any recurrence or metastasis. We discussed all of this during our visit. I am very pleased with her progress. 1. Cancer Care - Survivorship: This was a stage 1 non-small cell lung cancer with a 20-30% risk of recurrence. Fortunately, there is no evidence of recurrence and I will see them in 6 months with a repeat CT scan. 2. Smoking Cessation - she is not smoking. 3. Nutrition - BMI is There is no height or weight on file to calculate BMI. and stable for the past year. 4. Dyspnea - she has has mild dyspnea on exertion but is functioning well Return to clinic 6 months . Thank you very much. Yours sincerely, Ranjan Cazares MD, MPH Parking Enforcement Manager completed by using M*Modal Fluency Direct speaking software, therefore, transcriptionvariances may occur. RDING STUDIO INTERN documented in this encounter Plan of Treatment [...] 023 documented in this encounter Care Teams Senior Sales Engineer Relationship Specialty Start Date End Date Terry Bender DO PCP - General Internal Medicine 01/03/18 05/14/22 Wilmer Taylor MD [address] [place] [address] Referring Physician Obstetrics and Gynecology 05/09/12 Jeffrey Koch MD [address] [place] [address] Consulting Physician Rheumatology 02/03/21 Luz Lewis MD [address] [place] [address] Referring Physician Surgery 12/14/21 documented as of this encounter
--- OUTSIDE RECORDS SUMMARY | 2024-05-03 02:51 | XMS_ITS | Encounter Summary ---
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] Procedures DC SURG DIAGNOSTIC EXAM, ANORECTAL Exam Under Anesthesia, Acetic Acid Staining, Excison of Perianal Lesions Referral ID Status Reason Start Date Expiration Date Visits Re quested Visits Authorized [id number] 1 1 Encounter Details Date Type Department Care Team (Late st Contact Info) Description 12/14/2021 12:45 PM CDT - 12/14/2021 2:00 PM CDT Surgery [facility] Operating Room [address] [place] [address] Luz Lewis MD [address] [facility] [address] [place] [address] Exam Under Anesthesia, Acetic Acid Staining, Excison of Perianal Lesions Surgery Details Date/Time Status Location OR Service Patient Class Case Cl ass Case Type Trauma Case? 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 * Anxiolysis in Adults (Continuous Conveyor Screen Drier) (British) documented in this encounter Medications at Time [...] total) by mouth every morning 02/26/2021 omega 0-wfd-ncd-fish oil 100-160-1,000 mg capsuleIndicatio ns:hypertriglyce ridemia Take [...] or perianal pain. She follows with Dr. Roxana coronel. Past Medical History: Diagnosis Date ??? Arthritis [...] tablet nicotine (NICODERM CQ) 21 mg omega 7-pav-mqw-fish oil 100-160-1,000 mg capsule oxyCODONE (ROXICODONE) 5 mg immediate release tablet polyethylene glycol (MIRALAX) 17 gram packet Allergies Allergen Reactions ??? Omeprazole Rash ??? Amoxicillin Diarrhea ??? Motrin [Ibuprofen] Other (See comments) Patient takes Methotrexate and advised not to take. Social History Tobacco Use ??? Smoking status: Former Smoker Packs/day: 0.25 Years: 50.00 Pack years: 12.50 Start date: 1968 Quit date: 2015 Years since quittin.2 ??? Smokeless tobacco: Never Used Substance Use Topics ??? Alcohol use: Never Family History Problem Relation Age of Onset ??? Breast cancer Other Family history of malignant neoplasm of breast - Relation: Aunt (Added by TW Conv) ??? Colon cancer Other Family history of colon cancer - Relation: Uncle (Added by TW Conv) There is no family history of colorectal cancer or inflammatory bowel disease. Review of Systems: A comprehensive 12 point review of systems was completed by the patient; and reviewed, signed, and scanned into the chart. 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 Thesurgery was discussed in detail. The risks and [...] in the near future. Luz Lewis MD [facility] Surgical [facility] Colorectal Surgery 11/21/21 11:56 AM This note was transcribed using [employer] Speech Recognition software. As a result, there [...] PM CDT Comment:Placed in Formalin Narrative PATHOLOGY [facility] - 12/16/2021 1:56 PM [address]T [address] ??[address] Tele: ?? Katherine Rosales MD - Telephony Engineer Note to Patients: This report may contain [...] details. SURGICAL PATHOLOGY REPORT Patient Name: ??DARRION GUILLORY Address: ??[address], [place] [address] Gender: ??F : ??1950 (Age: 71) Service: ??Surgery Location: ??[facility], ?? Hospital #: ??[id number] Patient Type: ??[facility] Accession #: ? [id number] Taken: ? 12/14/2021 Received ? 12/14/2021 Reported: ? 12/16/2021 Physician(s): ? Abbey Velez D.O. DIAGNOSIS: Perianal lesions, excision: ? 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12/16/2021 13:56 Examining Pathologist: Gregory Escobar M.D. Report [...] and submitted entirely in cassette A1. ?? [facility]/12/14/2021 17:52 ? [facility] MICROS[facility]IC DES[facility]: Sections from the perianal lesions [...] distinct invasive component. Clerical Data Follows A; [id number], [id number], [id number] REPORT IMAGES AND/OR SCANNED DOCUMENTS ONLY VIEWABLE IN PDF FORMAT The immunohistochemical test(s) cited in this report, if any, was developed and its performance characteristics determined by [facility] Pathology Department. ??It has not been cleared or approved by the U.S. Food and Drug Administration. ??The FDA has determined that such clearance or approval is not necessary. ??This test is used for clinical purposes. ??It should not be regarded as investigational or for research. 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 , Indications: Pre-Emptive AnalgesiaIndications :Pre-Emptive Analgesia Given 12/14/2021 11:29 AM CDT 1,000 mg acetic acid (bulk) 5 % topical solution As needed, Starting on Sun12/14/21 at 1222, Intra-Op Given 12/14/2021 12:22 PM CDT 20 mL Surgical Site bacitracin 500 unit/gram ointment As needed, Starting on Sun12/14/21 at 1221, Intra-Op Given 12/14/2021 12:21 PM CDT 1 application (deactivated) Surgical Site gabapentin (NEURONTIN) capsule 300 mg 300 mg, oral, Once, On Sun12/14/21 at 1200, For 1 dose, Pre-Op, Give upon arrival to holding area. , Indications: Pre-Emptive AnalgesiaIndications :Pre-Emptive Analgesia Given 12/14/2021 11:29 AM CDT 300 mg lidocaine 1% w/ EPINEPHrine 1:100,000 (20 mL), bupivacaine 0.25% (20 mL), sodium bicarbonate 8.4% (8 mL) solution As needed, Starting on Sun12/14/21 at 1220, Intra-Op Given 12/14/2021 12:20 PM CDT 45 mL Surgical Site sodium chloride 0.9% irrigation As needed, Starting on Sun12/14/21 at 1221, Intra-Op Given 12/14/2021 12:21 PM CDT 500 mL Surgical Site documented in this encounter Discontinued Medications Medication [...] sterile field) documented in this encounter Orders Diet Count Last Ordered Date First Orde [...] 12/14/2021 documented in this encounter Care Teams Marketing Support Manager Relationship Specialty Start Date End Date YuliaCodeyeDO PCP - General Internal Medicine 01/03/18 05/14/22 Wilmer Taylor MD [facility] [address] [place] [address] Referring Physician Obstetrics and Gynecology 05/09/12 Jeffrey Koch MD [address] [place] [address] Consulting Physician Rheumatology 02/03/21 Luz Lewis MD [address] [place] [address] Referring Physician Surgery 12/14/21 documented as of this encounter
--- OUTSIDE RECORDS SUMMARY | 2024-05-03 02:51 | XMS_ITS | Encounter Summary ---
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] Procedures [place] ANRCT XM SURG REQ ANES GENERAL SPI/EDRL DX Rectal Exam Under Anesthesia, Acetic Acid Staining, Excision of Anal Lesions with Biopsies Referral ID Status Reason Start Date Expiration Date Visits Re quested Visits Authorized [id number] 1 1 Encounter Details Date Type Department Care Team (Latest Contact Info) Description 06/07/2022 5:38 AM RADAR MECHANIC - 06/07/2022 9:10 AM RADAR MECHANIC Hospital Encounter [facility] Operating Room [address] [place] [address] Luz Lewis MD [address] [facility] [address] [place] [address] AIN grade III Discharge Disposition: [...] on file Legal Sex Female 10:10 AM RADAR MECHANIC Gender Identity Not on file Sexual Orientation Not on file documented as of this encounter Last Filed Vital Signs Vital Sign Reading Time Taken Comments Blood Pressure 109/61 06/07/2022 8:40 AM RADAR MECHANIC Pulse 66 06/07/2022 8:40 AM RADAR MECHANIC Temperature 36.1 ??C (97 ??F) 06/07/2022 7:52 AM RADAR MECHANIC Respiratory Rate 12 06/07/2022 8:40 AM RADAR MECHANIC Oxygen Saturation 98% 06/07/2022 8:40 AM RADAR MECHANIC Inhaled Oxygen Concentration - - Weight 64.7 kg (142 lb 10.2 oz) 06/07/2022 6:10 AM RADAR MECHANIC Height 160 cm (5' 3 ) 06/07/2022 6:10 AM RADAR MECHANIC Body Mass Index 25.27 06/07/2022 6:10 AM RADAR MECHANIC documented in this encounter Discharge Instructions * Attachments The following attachments cannot be sent through Care Everywhere. * Anxiolysis in Adults (AfterCare(R) Instructions(ER/ED)) (Spanish) documented in this encounter Medications at Time [...] total) by mouth every morning 02/26/2021 omega 0-zfl-kry-fish oil 100-160-1,000 mg capsuleIndicatio ns:hypertriglyce ridemia Take [...] 7 days Every Sunday 60 tablet 1 05/15/2022 3 nicotine (NICODERM CQ) 21 mgIndications:Sm oking Cessation Place 1 patch on the skin daily 3 traMADoL (ULTRAM) 50 mg tablet Take 1 tablet (50 mg total) by mouth every 4 (four) hours as needed for pain 20 tablet 06/07/2022 3 documented as of this encounter Ordered Prescriptions Prescription Sig Dispense Quantity Refills Last Filled Start Date End Date traMADoL (ULTRAM) 50 mg tablet Take 1 tablet (50 mg total) by mouth every 4 (four) hours as needed for pain 20 tablet 06/07/2022 02/12/2023 documented in this encounter Discharge Disposition Disposition Code Departure Means Destination Discharge to home or self care documented in this encounter H&P Notes * Luz Lewis MD - 06/07/2022 7:18 AM CST Patient seen and examined. No changes his last seen in clinic. Consent obtained. R MECHANIC Source Note - Ramana Magaña MD - 06/07/2022 6:52 AM RADAR MECHANIC Images from the original note were not included. Anesthesia Evaluation Darrion Mariscal is a 71 y.o. female Procedure(s): Rectal Exam Under Anesthesia, Acetic Acid Staining, Excision of Anal Lesions with Biopsies Pre-Op Diagnosis Codes: * AIN grade III [D01.3] NPO: after MN HISTORY Past Medical History Information obtained from: patient and chart. Cardiovascular + Hypertension Typical systolic BP - 130 Typical diastolic BP - 80 Pertinent negatives: GA ; valvular heart disease and atrial fibrillation [...] factor (CMS/HCC) (HCC) ??? Neck pain ??? roasterman current use 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 drug ??? Malignant [...] 1994 Cyst x2 removed from overies ??? [place] UNLISTED PROCEDURE BREAST Right 1978 Cyst removed from R breast [...] 10 mg tablet -- 09/14/21 -- Maribel aWlker NP Take 1 tablet (10 mg total) [...] -- -- -- Mesha Greer MD omega 0-uoc-dem-fish oil 100-160-1,000 mg capsule -- -- -- [...] Medication protocol when under care of a COMMERCIAL FISHER Planned anesthesia: General/TIVA Induction: Induction: intravenous. Postoperative Plan: Patient's planned disposition post procedure is Outpatient. Informed Consent: Discussed plan with COMMERCIAL FISHER. Anesthesia plan and risks discussed with patient [...] and agree to proceed. All questions answered. R MECHANIC documented in this encounter Miscellaneous Notes * Perioperative Nursing Note - Prakash Stoddard RN - 06/07/2022 7:51 AM CST Dressing: gauze and mesh underwear R MECHANIC * Op Note - Luz Lewis MD - 06/07/2022 7:30 AM CST OPERATIVE NOTE SURGEON: Luz Lewis ANESTHESIA: MAC with Local PREOPERATIVE DIAGNOSIS: Perianal lesions, history of VIN3, AIN3 POSTOPERATIVE DIAGNOSIS: Perianal lesions, history of VIN3, AIN3 NAME OF OPERATION: Exam under anesthesia, anoscopy, acetic acid staining, biopsy of perianal lesions INDICATIONS FOR PROCEDURE: The patient is a 71 y.o. female with history or VIN3/AIN requiring WLE previously of her vulva and who previously underwent exam under anesthesia, anoscopy, acetic acid staining, biopsy of perianal lesions x3 on 07/06/2021 and 12/14/2021. She has been monitored closely for this and was noted to have r ecurrent lesions. Risks, benefits, and perioperative expectations were discussed in detail. The patient understands that repeat procedures may be required and that pain and scarring or associated with this. Consent was obtained. INTRAOPERATIVE FINDINGS: Small perianal hyperkeratotic lesion right sided and small lesion with leukoplakia right laterally.There were scattered areas of uptake perianally which were biopsied and fulgurated. No intra-anal lesions noted but mild uptake so biopsies taken. DESCRIPTION OF PROCEDURE: The patient was brought the operating room, placed under MAC anesthesia in the prone tereza-knife position. The perineum was prepped and draped in normal sterile fashion and a pudendal nerve block was performed using with 45 mL of 0.25% Marcaine, 1 % lidocaine, and bicarbonate soluation. A detailed digital rectal exam was performed which demonstrated the above findings. Acetic acid was used to paint the perianal tissues. The lesions of uptake were all excised and treated with Bovie [...] the entire procedure from start to finish R MECHANIC documented in this encounter Plan of Treatment Not on file documented as of this encounter Procedures Procedure Name Priority Date/Time Associated Diagnosis Comments SURGICAL PATHOLOGY Routine 06/07/2022 7: 45 AM RADAR MECHANIC AIN grade III EXAM UNDER ANESTHESIA 06/07/2022 7:22 AM RADAR MECHANIC AIN grade III documented in this encounter Results * Surgical pathology (06/07/2022 7:45 AM RADAR MECHANIC) Tissue (Soft tissue biopsy) 06/07/2022 7:45 AM RADAR MECHANIC Narrative PATHOLOGY [facility] - 2022 8:10 AM RADAR MECHANIC [address] ??[address] Tele: ?? Katherine Rosales MD - [employer] Note to Patients: This report may contain [...] details. SURGICAL PATHOLOGY REPORT Patient Name: ??DARRION CAAL Address: ??[address] [place] [address] Gender: ??F : ??1950 (Age: 71) Service: ??Surgery Location: ??[facility], ?? Hospital #: ??[id number] Patient Type: ??[facility] Accession #: ? [id number] Taken: ? 06/07/2022 Received ? 06/07/2022 Reported: ? 2022 Physician(s): ? Luz Lewis M.D. DIAGNOSIS: Perianal biopsies: ? 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 ? - Additional fragments of benign anorectal mucosa. [email or web address] 08:10 Examining Pathologist: Gabriele Rutherford M.D. Report Reviewed and Electronically Signed By ??Gabriele Rutherford M.D. SPECIMEN TYPE: A: PERIANAL BIOPSIES CLINICAL IMPRESSION AND HISTORY: AIN grade 2 GROSS DESCRIPTION: Received in formalin in a single container with the patient's name, DARRION CAAL ??labeled perianal biopsies and contains multiple pickard tissue fragments measuring 1.6 x 0.4 x 0.1 cm in aggregate. Due to the color and size of the specimen, hematoxylin is used. The specimen is filtered and submitted entirely in cassette A1. ?? ESB,CU MICROSCOPIC DESCRIPTION: Microscopic examination supports the above captioned diagnosis. Clerical Data Follows A; [id number], [id number] <CR>, [id number] REPORT IMAGES AND/OR SCANNED DOCUMENTS ONLY VIEWABLE IN PDF FORMAT The immunohistochemical test(s) cited in this report, if any, was developed and its performance characteristics determined by [facility] Pathology Department. ??It has not been cleared or approved by the U.S. Food and Drug Administration. ??The FDA has determined that such clearance or approval is not necessary. ??This test is used for clinical purposes. ??It should not be regarded as investigational or for research. ??[facility] is certified under the Clinical Laboratory Improvement Amendments of 1988 (CLIA) as qualified to perform high complexity testing. ??Immunostains were performed on formalin-fixed paraffin embedded tissue using a polymer diaminobenzidine chromogen detection system. Antibodies used may include clone SP1 (rabbit monoclonal, estrogen receptor), clone 1E2 (rabbit monoclonal progesterone receptor), Ki-67 (rabbit monoclonal, 30-9), and [id number] (rabbit polyclonal, c-kit). us Luz Lewis MD LAB PATHOLOGY ORDERABLES Final Result PATHOLOGY [facility] Laboratory Receiving [address] [place] [address] documented in this encounter Visit Diagnoses Diagnosis [...] 1,000 mg 1,000 mg, oral, Once, On Sun06/07/22 at 0630, For 1 dose, Pre-Op, Give upon arrival to holding area. , Indications: Pre-Emptive AnalgesiaIndications:Pre-Emptive Analgesia Given 06/07/2022 6:18 AM RADAR MECHANIC 1,000 mg Carrier Fluids for Secondary Infusion - 0.9% Sodium Chloride 30 mL, intravenous, As needed, For priming tubing and/or flushing, Starting on Sun06/07/22 at 0557, Pre-Op, 0-250 ml/hr to flush line after IV infusions when no maintenance IV ordered. Infuse 30mL at the same rate as the secondary infusion. Run as primary IV, not intended for KVO. gabapentin (NEURONTIN) capsule 300 mg 300 mg, oral, Once, On Sun06/07/22 at 0630, For 1 dose, Pre-Op, Give upon arrival to holding area. , Indications: Pre-Emptive AnalgesiaIndications:Pre-Emptive Analgesia Given 06/07/2022 6:18 AM RADAR MECHANIC 300 mg Lactated Ringer's (LR) infusion 30 mL/hr, intravenous, Continuous, Starting on Sun06/07/22 at 0730, Pre-Op, New Bag 06/07/2022 7:21 AM RADAR MECHANIC sodium chloride 0.9% flush 0.5-20 mL 0.5-20 mL, intra-catheter, As needed, line care, Starting on Sun06/07/22 at 0557, Pre-Op, Flush volume based on line type and size. Flush before and after each use. documented in this encounter Active and Recently Administered Medications Times are shown in RADAR MECHANIC. Scheduled Medication Order 06/05/2022 06/06/2022 06/07/2022 acetaminophen (TYLENOL) tablet 1,000 mg (COMPLETED) 1,000 mg, oral, Once, On Sun06/07/22 at 0630, For 1 dose, Pre-Op, Give upon arrival to holding area. , Indications: Pre-Emptive Analgesia 0618 (Given - Provid er: Deborah Long RN) gabapentin (NEURONTIN) capsule 300 mg (COMPLETED) 300 mg, oral, Once, On Sun06/07/22 at 0630, For 1 dose, Pre-Op, Give upon arrival to holding area. , Indications: Pre-Emptive Analgesia 0618 (Given - Provid er: Deborah Long RN) Continuous Medication Order 06/05/2022 06/06/2022 06/07/2022 Lactated Ringer's (LR) infusion 30 mL/hr, intravenous, Continuous, Starting on Sun06/07/22 at 0730, Pre-Op, 0721 (New Bag - Prov ider: Ruth Larry CRNA - Comment: started by preop RN)0740 (Anesthesia Volume Adjustment - Provider: Ruth Larry CRNA)1326 (Due: Stopped) PRN Medication Order 06/05/2022 06/06/2022 06/07/2022 acetic acid (bulk) 5 % topical solution (CANCELED) As needed, Starting on Sun06/07/22 at 0744, Intra-Op 0744 (Given - Provid er: Luz Lewis MD) albuterol 2.5 mg /3 mL (0.083 %) nebulizer solution 2.5 mg 2.5 mg, nebulization, As needed, wheezing, Starting on Sun06/07/22 at 0749, For 2 doses, Phase I, Notify Anesthesiologist. , Indications: Bronchospastic Pulmonary Disease Carrier Fluids for Secondary Infusion - 0.9% Sodium Chloride 30 mL, intravenous, As needed, For priming tubing and/or flushing, Starting on Sun06/07/22 at 0557, Pre-Op, 0-250 ml/hr to flush line after IV infusions when no maintenance IV ordered. Infuse 30mL at the same rate as the secondary infusion. Run as primary IV, not intended for KVO. dextrose (D10W) 10% bolus 250 mL 250 mL, intravenous, at 1,000 mL/hr, Administer over 15 Minutes, Once as needed, blood glucose less than 70 mg/dL, Starting on Sun06/07/22 at 0650, Pre-Op, Indications: Hypoglycemia diphenhydrAMINE (BENADRYL) injection 12.5 mg 12.5 mg, intravenous, Every 15 min PRN, itching, Starting on Sun06/07/22 at 0749, For 2 doses, Phase I, Max cumulative dose 50 mg., Indications: Itching fentaNYL (SUBLIMAZE) preservative free injection 25 mcg 25 mcg, intravenous, Every 5 min PRN, uncontrolled pain on PACU admission, Starting on Sun06/07/22 at 0749, For 4 doses, Phase I, Maximum dosage of fentanyl of 100 mcg for arrival to PACU, then proceed to PACU 1st line analgesic., Indications: Pain haloperidol (HALDOL) injection 1 mg 1 mg, intravenous, Administer over 5 Minutes, Once as needed, nausea, vomiting, Starting on Sun06/07/22 at 0749, For 1 dose, Phase I, If post-operative nausea and/or vomiting is not relieved by ondansetron within 30 minutes or if more than 8mg of ondansetron have been given within the last 6 hours. HYDROmorphone (DILAUDID) injection 0.2 mg 0.2 mg, intravenous, Administer over 2 Minutes, Every 10 min PRN, 1st line for pain, Starting on Sun06/07/22 at 0749, For 10 doses, Phase I, Switch to 2nd line analgesic order if pain is uncontrolled or increasing after 1 dose. Notify Anesthesiologist if total PACU dose reaches 2 mg and pain score 5/10 or more., Indications: Pain HYDROmorphone (DILAUDID) injection 0.4 mg 0.4 mg, intravenous, Administer over 2 Minutes, Every 10 min PRN, 2nd line for pain, Starting on Sun06/07/22 at 0749, For 5 doses, Phase I, May administer 10 mintes after 1st dose of 1st line analgesic agent for uncontrolled or increasing pain. Revert to 1st line dose if POSS of 3. Notify Anesthesiologist if total PACU dose reaches 2 mg and pain score 5/10 or more., Indications: Pain labetaloL (NORMODYNE,TRANDATE) injection 5 mg 5 mg, intravenous, at 30 mL/hr, Administer over 2 Minutes, Every 10 min PRN, high blood pressure, Starting on Sun06/07/22 at 0749, For 4 doses, Phase I, Max cumulative dose 20 mg. Dose if systolic blood pressure greater than 180 AND HR greater than 70. lidocaine 1% w/ EPINEPHrine 1:100,000 (20 mL), bupivacaine 0.25% (20 mL), sodium bicarbonate 8.4% (8 mL) solution (CANCELED) As needed, Starting on Sun06/07/22 at 0745, Intra-Op 0745 (Given - Provid er: Luz Lewis MD) lidocaine PF (XYLOCAINE) 10 mg/mL (1 %) preservative free injection 2-10 mg 2-10 mg (0.2-1 mL), other, Once as needed, pain with IV placement, Starting on Sun06/07/22 at 0650, For 1 dose, Pre-Op, Administer volume needed to infiltrate IV site. meperidine (DEMEROL) preservative free injection 12.5 mg 12.5 mg, intravenous, Administer over 5 Minutes, Every 10 min PRN, shivering, Starting on Sun06/07/22 at 0749, For 2 doses, Phase I, Max cumulative dose 25 mg., Indications: Shivering naloxone (NARCAN) 0.4 mg/mL injection 0.04-0.4 mg 0.04-0.4 mg, intravenous, Once as needed, other, excessive sedation/respiratory depression, Starting on Sun06/07/22 at 0749, For 1 dose, Phase I, BEFORE ADMINISTERING - notify anesthesiologist to verify administration. Then, dilute 0.4 mg with 9 mL NS (final concentration 0.04 mg/mL). For respiratory depression (respiratory rate less than 6), administer 0.4 mg IVP over 30 seconds. For excessive sedation administer 0.04 mg (1 mL) every 1 minute until desired level of alertness. For IV, administer over 30 seconds., Indications: Opioid Toxicity ondansetron (ZOFRAN) injection 4 mg 4 mg, intravenous, Administer over 2 Minutes, Once as needed, nausea, vomiting, Starting on Sun06/07/22 at 0749, For 1 dose, Phase I, Proceed to haloperidol if more than 8 mg of ondansetron have been given within the last 6 hours., Indications: Prevention of Post-Operative Nausea and Vomiting oxyCODONE (ROXICODONE) tablet 5 mg 5 mg, oral, As needed, 1st line for pain, Starting on Sun06/07/22 at 0749, For 2 doses, Phase I, 1st ORAL choice for pain, when the patient is able to tolerate PO medications. May repeat in 1 hour if pain is uncontrolled or increasing after 1st dose., Indications: Pain racepinephrine (ASTHMANEFRIN) 2.25 % nebulizer solution 0.5 mL 0.5 mL, nebulization, As needed, other, stridor, Starting on Sun06/07/22 at 0749, For 2 doses, Phase I, Notify Anesthesiologist. , Indications: Wheezing sodium chloride 0.9% flush 0.5-20 mL 0.5-20 mL, intra-catheter, As needed, line care, Starting on Sun06/07/22 at 0557, Pre-Op, Flush volume based on line type and size. Flush before and after each use. sodium chloride 0.9% flush 0.5-20 mL 0.5-20 mL, intra-catheter, As needed, line care, Starting on Sun06/07/22 at 0650, Pre-Op, Flush volume based on line type and size. Flush before and after each use. sodium chloride 0.9% irrigation (CANCELED) As needed, Starting on Sun06/07/22 at 0745, Intra-Op 0745 (Given - Provid er: Luz Lewis MD - Comment: on sterile field, PRN) documented in this encounter Orders Medications Ordered That Rubén ht Not Have Been Administered Count Last Ordered Date First Ordered Date acetaminophen (TYLENOL) tablet 1,000 mg 1 0 06/07/2022 acetic acid (bulk) 5 % topical solution 1 0 06/07/2022 albuterol 2.5 mg /3 mL (0.08 3 %) nebulizer solution 2.5 mg 1 06/07/2022 Carrier Fluids for Secondary Infusion - 0.9% Sodium Chloride 06/07/2022 dextrose (D10W) 10% bolus 250 mL 06/07/19 diphenhydrAMINE (BENADRYL) i njection 12.5 mg 06/07/2022 fentaNYL (SUBLIMAZE) preserv ative free injection 25 mcg 06/07/2022 gabapentin (NEURONTIN) capsule 200 mg haloperidol (HALDOL) injection 1 mg 06/07 HYDROmorphone (DILAUDID) injection 0.2 mg 06/07/2022 HYDROmorphone (DILAUDID) injection 0.4 mg 06/07/2022 labetaloL (NORMODYNE,TRANDAT E) injection 5 mg 1 06/07/2022 Lactated Ringer's (LR) infusion 1 3 lidocaine 1% w/ EPINEPHrine 1:100,000 (20 mL), bupivacaine 0.25% (20 mL), sodium bicarbonate 8.4% (8 mL) solution 1 06/07/2022 lidocaine PF (XYLOCAINE) 10 mg/mL (1 %) preservative free injection 2-10 mg 1 06/07/2022 meperidine (DEMEROL) preserv ative free injection 12.5 mg 1 06/07/2022 naloxone (NARCAN) 0.4 mg/mL injection 0.04-0.4 mg 1 06/07/2022 ondansetron (ZOFRAN) injection 4 mg 1 06/07 oxyCODONE (ROXICODONE) tablet 5 mg 1 2022 racepinephrine (ASTHMANEFRIN ) 2.25 % nebulizer solution 0.5 mL 1 06/07/2022 sodium chloride 0.9% flush 0.5-20 mL 2 05/24 sodium chloride 0.9% irrigation 1 3 Diet Count Last Ordered Date First Orde red Date ADULT DISCHARGE DIET 1 06/07/2022 Nursing Count Last Ordered Date First Orde red Date ACTIVITY 1 06/07/2022 DISCHARGE INSTRUCTIONS 2 06/07/2022 FOLLOW UP WITH ESTABLISHED PROVIDER 1 06/07 NURSING COMMUNICATION 5 06/07/2022 PATIENT MAY SHOWER 1 06/07/2022 WOUND CARE 2 06/07/2022 Discharge Count Last Ordered Date First Orde red Date DISCHARGE PATIENT 1 06/07/2022 documented in this encounter Care Teams Health And Safety Manager Relationship Specialty Start Date End Date Sin Mcclure MD [address] [place] [address] PCP - General Internal Medicine 05/15/22 11/28/22 Wilmer Taylor MD [address] [facility] [address] [place] [address] Referring Physician Obstetrics and Gynecology 05/09/12 Jeffrey Koch MD [address] [place] [address] Consulting Physician Rheumatology 02/03/21 Luz Lewis MD [address] [place] [address] Referring Physician Surgery 12/14/21 documented as of this encounter
--- OUTSIDE RECORDS SUMMARY | 2024-05-03 02:51 | XMS_ITS | Encounter Summary ---
Author Organization [facility] Address [address] [place] [address] Phone Care Team Providers Care Poultry Farm Worker Name Role Phone Terry Bender Primary Care Provider [phone] Wilmer Taylor MD Unavailable [phone] Jeffrey Koch MD Unavailable [phone] Luz Lewis MD Unavailable [phone] Encounter Details Date Type Department Care Team (Late st Contact Info) Description 01/16/2022 10:45 AM CDT Office Visit [facility] [address] [place] [address] Martina Elizabeth PA [address] [place] [address] 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) (Primary Dx); Neck pain; long term care pharmacist current use 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 drug Social History [...] Average Number of Drinks Not on file Q3: How often do you have si x or more drinks on one occasion? Never 09/12/2021 Comments No Sex and Gender Information Value Date Recorded Sex Assigned at Not on file Legal Sex Female 10:10 AM BRINELL TESTER Gender Identity Not on file Sexual Orientation Not on file documented as of this encounter Last Filed Vital Signs Vital Sign Reading Time Taken Comments Blood Pressure 157/85 01/16/2022 10:54 AM CDT Pulse 82 01/16/2022 10:54 AM CDT Temperature - - Respiratory Rate - - Oxygen Saturation 92% 01/16/2022 10: 54 AM CDT Inhaled Oxygen Concentration - - Weight 62.1 kg (136 lb 12.8 oz) 10:54 AM CDT Height 162.6 cm (5' 4 ) 01/16/2022 10:5 4 AM CDT Body Mass Index 23.48 01/16/2022 10:54 AM CDT documented in this encounter Progress Notes * Martina Elizabeth PA - 01/16/2022 10:45 AM CDT Images from the original note were not included. Subjective/Objective Patient ID: Loida Guillory is a 71 y.o. female. Chief Complaint RA HPI Returns for routine follow up. Joints continue to do well. Still notes some SINGLETARY since lobectomy but f/u again with cardiothoracic surgeon on 03/28 for routine post-surgical evaluation. Denies fevers, infections, rashes, mouth sores, cough, [...] Skin: Negative for rash. Vitals: Vitals BP 157/85 Pulse 82 Ht 162.6 cm (5' 4 ) Wt 62.1 kg (136 lb 12.8 oz) SpO2 92% BMI 23.48 kg/m?? Body mass index is 23.48 kg/m??. Bold X is a current medication. [...] Normocephalic. Eyes: Conjunctivae are normal. Pupils are equal, round, and reactive to light. Cardiovascular: Normal rate, regular rhythm and normal [...] is normal. Cognition and memory are normal. Labs Lab Results Component Value Date WBC 9.3 10/17/2021 HGB 12.9 10/17/2021 HCT 38.3 10/17/2021 MCV 99.0 10/17/2021 Lab Results Component Value Date GLUCOSE 99 10/17/2021 CALCIUM 9.3 10/17/2021 SODIUM 140 10/17/2021 POTASSIUM 4.5 10/17/2021 CO2 26 10/17/2021 CHLORIDE 104 10/17/2021 BUNSER 13 10/17/2021 CREATININE 0.97 (H) 10/17/2021 Lab Results Component Value Date ALT 9 10/17/2021 AST 13 10/17/2021 ALKPHOS 72 10/17/2021 BILITOT 0.4 10/17/2021 Lab Results Component Value Date SEDRATE 41 (H) 10/17/2021 Lab Results Component Value Date CRP 8.6 (H) 10/17/2021 Patient Global: 20 mm Provider Global: 20 mm CDAI: 5 In remission: 0-3 Low: 4-10 Moderate: 11-22 High: 23 or > Assessment/Plan Diagnoses and all orders for this [...] up in 3 months. Sooner if needed. Orders: - Comprehensive [...] prn with good relief. Continue home exercises. assisted current use 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 drug Assessment & Plan: Hepatitis negative: 02/2021 Orders: - Comprehensive metabolic panel; Future - CBC with auto differential; Future - Erythrocyte sedimentation rate; Future - CRP (acute phase); Future Martina Elizabeth PA-C Cosigned by Jeffrey Koch MD at 01/16/2022 4:42 PM CDT documented in this encounter Miscellaneous Notes * Assessment & Plan Note - Martina Elizabeth PA - 01/16/2022 12:28 PM CDTAssociated Problem(s): Neck pain Pain worse with activity and improved with rest. Denies radiating pain. 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 Patient defers PT and worried about NSAIDs with her current medication regimen. Taking tylenol otc prn with some relief. Using Voltaren gel otc prn with good relief. Continue home exercises. * Assessment & Plan Note - Martina Elizabeth PA - 01/16/2022 11:09 AM CDTAssociated Problem(s): Rheumatoid arthritis involving both [...] up in 3 months. Sooner if needed. * Assessment & Plan Note - Martina Elizabeth PA - 01/16/2022 10:56 AM CDTAssociated Problem(s): assisted current use 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 drug Hepatitis negative: 02/2021 documented in this encounter Plan of Treatment Not on file documented as of this encounter Procedures Procedure Name Priority Date/Time Associated Diagnosis Comments CBC WITH AUTO DIFFERENTIAL Routine 01/16/2022 11:26 AM CDT 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) long term care pharmacist current use 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 drug ERYTHROCYTE SEDIMENTATION RATE Routine 01/16/2022 11:26 AM CDT 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) assisted current use 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 drug CRP (ACUTE PHASE) Routine 01/16/2022 11: 26 AM CDT 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) long term care pharmacist current use 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 drug COMPREHENSIVE METABOLIC PANEL Routine 01/16/2022 11:26 AM CDT 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) long term care pharmacist current use 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 drug documented in this encounter Results * CRP (acute phase) (01/16/2022 11:26 AM CDT) Pathologist [facility] C-RP 1.7 <8.0 mg/L [facility] Blood 01/16/2022 11:2 6 AM CDT 01/16/2022 11:27 AM CDT Martina JONES LAB BLOOD ORDERABLES Final Result Performing Organization Address City/[facility]/ZIP Co de Phone Number [facility] [address] [place] [address] * (ABNORMAL) Erythrocyte sedimentation rate (01/16/2022 11:26 AM CDT) [facility] Erythrocyte sedimentation rate 36(H) < OR = 30 mm/h [facility] Blood 01/16/2022 11:2 6 AM CDT 01/16/2022 11:27 AM CDT Martina JONES LAB BLOOD ORDERABLES Final Result [facility] [address] [place] [address] * CBC with auto differential (01/16/2022 11:26 AM CDT) [facility] WBC 8.8 3.8 - 10.8 Thousand/u L [facility] RBC, POC 4.03 3.80 - 5.10 Million/uL [facility] Hgb 13.1 11.7 - 15.5 g/dL [facility] Hct 38.2 35.0 - 45.0 % [facility] MCV 94.8 80.0 - 100.0 fL [facility] MCH 32.5 27.0 - 33.0 pg [facility] MCHC 34.3 32.0 - 36.0 g/dL [facility] Rdw 13.7 11.0 - 15.0 % [facility] Platelets 306 140 - 400 Thousand/u L [facility] MPV 10.3 7.5 - 12.5 fL [facility] Neutrophils, abs 5,060 1,500 - 7,800 cells/uL [facility] Lymphocytes, abs 2,622 850 - 3,900 cells/uL [facility] Monocyte abs 792 200 - 950 cells/uL [facility] Eosinophils, abs 229 15 - 500 cells/uL [facility] Basophils, abs 97 0 - 200 cells/uL [facility] Neutrophils 57.5 % [facility] Lymphocyte pct 29.8 % [facility] Monocytes 9.0 % [facility] Eosinophils 2.6 % [facility] Basophils 1.1 % [facility] Blood 01/16/2022 11:2 6 AM CDT 01/16/2022 11:27 AM CDT Martina JONES LAB BLOOD ORDERABLES Final Result [facility] [address] [place] [address] * Comprehensive metabolic panel (01/16/2022 11:26 AM CDT) [facility] Glucose 95 65 - 99 mg/dL [facility] Comment: ? Fasting reference interval BUN 19 7 - 25 mg/dL [facility] Creatinine 0.88 0.60 - 1.00 mg/dL [facility] eGFR 69 > OR = 60 mL/min/1. 73m2 [facility] Comment: The eGFR is based on the CKD-EPI 2020 equation. To calculate the new eGFR from a previous Creatinine or Cystatin C result, go to https://www.kidney.org/professionals/ kdoqi/gfr%5Fcalculator BUN/creat ratio NOT APPLICABLE 6 - 22 (calc) [facility] Sodium 140 135 - 146 mmol/L [facility] Potassium, pl 4.1 3.5 - 5.3 mmol/L [facility] Chloride 105 98 - 110 mmol/L [facility] CO2 24 20 - 32 mmol/L [facility] Calcium 9.5 8.6 - 10.4 mg/dL [facility] Protein, sr 6.9 6.1 - 8.1 g/dL [facility] Albumin 3.9 3.6 - 5.1 g/dL [facility] GLOBULIN 3.0 1.9 - 3.7 g/dL (calc) [facility] Alb/glob ratio 1.3 1.0 - 2.5 (calc) [facility] Bilirubin, total 0.5 0.2 - 1.2 mg/dL [facility] Alk phos 73 37 - 153 U/L [facility] AST 16 10 - 35 U/L [facility] ALT (SGPT) 14 6 - 29 U/L [facility] Blood 01/16/2022 11:2 6 AM CDT 01/16/2022 11:27 AM CDT Martina JONES LAB BLOOD ORDERABLES Final Result [facility] [address] [address] [place] [phone] documented in this encounter Visit Diagnoses Diagnosis 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)- Primary Neck pain Cervicalgia long term care pharmacist current use 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 drug documented in this encounter Care Teams Poultry Farm Worker Relationship Specialty Start Date End Date Terry Bender DO PCP - General Internal Medicine 01/03/18 05/14/22 Wilmer Taylor MD [address] [facility] [address] [place] [address] Referring Physician Obstetrics and Gynecology 05/09/12 Jeffrey Koch MD [address] [place] [address] Consulting Physician Rheumatology 02/03/21 Luz Lewis MD [address] [place] [address] Referring Physician Surgery 12/14/21 documented as of this encounter
--- OUTSIDE RECORDS SUMMARY | 2024-05-03 02:51 | XMS_ITS | Encounter Summary ---
Author Organization [facility] Address [address] [facility] [address] [place] [address] Care Team Providers Care Loan Representative Name Role Phone Terry Bender DO Primary Care Provider [phone] Wilmer Taylor MD Unavailable [phone] Jeffrey Koch MD Unavailable [phone] Luz Lewis MD Unavailable [phone] Reason for Visit * Reason Comments Follow-up Encounter Details Date Type Department Care Team (Late st Contact Info) Description 05/01/2022 11:15 AM DIRECTOR LIFE INSURANCE Office Visit [facility] [address] [facility] [address] [place] [address] Luz Lewis MD [address] [place], [place] [id number] AIN grade III (Primary Dx) Social History Tobacco Use Types [...] file Legal Sex Female 10:10 AM DIRECTOR LIFE INSURANCE Gender Identity Not on file Sexual Orientation Not on file documented as of this encounter Last Filed Vital Signs Vital Sign Reading Time Taken Comments Blood Pressure - - Pulse - - Temperature - - Respiratory Rate - - Oxygen Saturation - - Inhaled Oxygen Concentration - - Weight 64.4 kg (142 lb) 05/01/2022 11:27 AM DIRECTOR LIFE INSURANCE Height 162.6 cm (5' 4 ) 05/01/2022 11:27 AM DIRECTOR LIFE INSURANCE Body Mass Index 24.37 05/01/2022 11:27 AM DIRECTOR LIFE INSURANCE documented in this encounter Progress Notes * Luz Lewis MD - 05/01/2022 11:15 AM CST Colorectal Surgery Consultation Consult requested by Terry Bender DO for HAWA/AIN3 Chief Complaint: Loida Guillory is a 71 y.o. female with chief complaint of HAWA/AIN3 . HPI: Loida Guillory is a 71 y.o. female with [...] years). She wishes to proceed with colonoscopy. 11/21/2021 Patient presents today after exam under anesthesia, anoscopy, acetic acid staining, biopsyof perianal lesions x3 07/06/2021. Path returned AINIII and patient has elected to continue with surveillance. Since last seen, she was diagnosed with lung squamous cell carcinoma and underwent robotic right upper lobectomy, mediastinal lymph node dissection and intercostal nerve block on 09/12/[address] Cazares for T1N0 disease and she is currently undergoing surveillance for this. She denies any obvious lesions or perianal pain. She follows with Dr. Roxana coronel. 03/20/2022 Patient underwent EUA with anoscopy, acetic acid staining, biopsy of perianal lesions x. At that time, she was noted to have small perianal hyperkeratotic lesion left laterally and small lesion with leukoplakia right laterally and right anteriorly. 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 She is here today for survei llance. INTERVAL HISTORY: 05/01/2022 Patient presents as she now wishes to proceed with EUA with repeat anoscopy, acetic acid staining, biopsy of perianal lesions. She has otherwise done well without any issues. Past Medical History: Diagnosis Date Arthritis Hypertension Personal history of other diseases of the circulatory system History of hypertension - (Added by TW Conv) Past Surgical History: Procedure Laterality Date OVARY SURGERY 1994 Cyst x2 removed from overies NM BREAST SURGERY PROCEDURE UNLISTED Right 1978 Cyst removed from R breast RHINOPLASTY 1989 Deviated septum VULVA SURGERY 03/28/2012 HAWA III excision VULVA SURGERY 03/04/2013 HAWA III excision VULVA SURGERY 11/10/2018 HAWA III excision VULVA SURGERY 04/08/2019 HAWA III excision HOME [...] tablet nicotine (NICODERM CQ) 21 mg omega 4-bzw-fnc-fish oil 100-160-1,000 mg capsule polyethylene glycol (MIRALAX) 17 gram packet Allergies Allergen Reactions Omeprazole Rash Amoxicillin Diarrhea Motrin [Ibuprofen] Other (See comments) Patient takes Methotrexate and advised not to take. Social History Tobacco Use Smoking status: Former Smoker Packs/day: 0.25 Years: 50.00 Pack years: 12.50 Start date: 1968 Quit date: 2015 Years since quittin.2 Smokeless tobacco: Never Used Substance Use Topics Alcohol use: Never Family History Problem Relation Age of Onset Breast cancer Other Family history of malignant neoplasm of breast - Relation: Aunt (Added by TW Conv) Colon cancer Other Family history of colon [...] Negative Pulmonary: Negative Gastrointestinal: Negative Genitourinary: Negative Tank Cleaning Supervisor/lymphatic: Negative Immunologic: Negative Musculoskeletal: Negative Neurologic: Negative Integumentary: Negative Psychiatric: Negative Endocrine: Negative Physical exam: Vitals: Vitals Ht 162.6 cm (5' 4 ) Wt 64.4 kg (142 lb) BMI 24.37 kg/m?? Afebrile, vital signs stable General Exam: No acute distress. Well developed. HEENT: Normocephalic. No scleral icterus. Neck: Supple without lymphadenopathy Cardiovascular: Regular rhythm and rate Chest: Unlabored breathing Abdomen: Soft, nontender, nondistended. Anoperineal Exam: Normal external genitalia and anus. Mild small nonthrombosed external hemorrhoids. Improved posterior leukoplakia , small 2 mm lesion right laterally. Digital Rectal Exam: No masses. Normal tone, good squeeze Anoscopy: A lubricated anoscope was placed per rectum. Small non friable internal hemorrhoids were noted. No masses or lesions were noted in the anal canal Musculoskeletal: No deformities. Neurological: Normal gait, no deficits Integumentary: No rashes Psychiatric: Normal mood and affect Assessment/Plan Loida Guillory is a 71 y.o. female on methotrexate with history or VIN3/AIN requiring WLE previously who underwent exam under anesthesia, anoscopy, acetic acid staining, biopsy of perianal lesions x33/ and 11/2021 by me. Path returned AINII-AINIII. She is now on surveillance and has a small right sided lesion that does not appear amenable to excision in clinic. I have again recommended to proceed with EUA and acetic acid staining with excision of these lesions and biopsies of any other areas of concern given her AIN 3 history and new visible lesions. The procedure was reviewed with the patient along with perioperative expectations [...] locally after she heals from this procedure. I again reminded her of the importance of this. Luz Lewis MD [facility] Colorectal Surgery 05/01/22 11:28 AM This note was transcribed using [employer] Speech Recognition software. As a result, there may be unintended grammar and spelling errors. Every attempt is made to have correct dictation. If there are any questions or major errors, please contact me. 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 alendronate (FOSAMAX) 70 mg tablet Take 1 tablet (70 mg total) by mouth every 7 days Take in the morning with a full glass of water, on an empty stomach, and do not take anything else by mouth or lie down for the next 30 min. added in this encounter Care Teams Loan Representative Relationship Specialty Start Date End Date Terry Bender DO PCP - General Internal Medicine 01/03/18 05/14/22 Wilmer Taylor MD [address] [facility] [address] [address] Referring Physician Obstetrics and Gynecology 05/09/12 Jeffrey Koch MD [address] [facility] [place] [address] Consulting Physician Rheumatology 02/03/21 Luz Lewis MD [address] [facility] [place] [address] Referring Physician Surgery 12/14/21 documented as of this encounter
--- OUTSIDE RECORDS SUMMARY | 2024-05-03 02:51 | XMS_ITS | Encounter Summary ---
Author Organization [facility] Address [address] [facility] [address] [place] [address] Phone Care Team Providers Care Mapping Editor Name Role Phone Terry Bender Primary Care Provider [phone] Wilmer Taylor MD Unavailable [phone] Jeffrey Koch MD Unavailable [phone] Reason for Visit * Consultation (Routine) - Closed Specialty Diagnoses / Procedures Referred By Contac t Referred To Contact Cardiothoracic Surgery Diagnoses Malignant neoplasm of lung, unspecified laterality, unspecified part of lung (HCC) Referral, Self Ranjan Cazares MD [address] [facility] [address] SUR[address] [place] [address] Phone: tel: fax: Referral ID Status Reason Start Date Expiration Date V isits Requested Visits Authorized [id number] Closed Specialty Services Required 08/29/2021 09/28/2022 99 99 Encounter Details Date Type Department Care Team (Late st Contact Info) Description 09/01/2021 1:30 PM CDT Office Visit [facility] 8th [place] [address] [place] [address] Ranjan Cazares MD [address] [facility] [address] [place] [address] Malignant neoplasm of upper lobe of right [...] file Legal Sex Female 10:10 AM MANAGER E LEARNING Gender Identity Not on file Sexual Orientation Not on file documented as of this encounter Last Filed Vital Signs Vital Sign Reading Time Taken Comments Blood Pressure 104/66 09/01/2021 1:03 PM CDT Pulse 72 09/01/2021 1:03 PM CDT Temperature 36.6 ??C (97.8 ??F) 09/01/2021 1:03 PM CD T Respiratory Rate 18 09/01/2021 1:03 PM CDT Oxygen Saturation 97% 09/01/2021 1:03 PM CDT Inhaled Oxygen Concentration - - Weight 59.9 kg (132 lb) 09/01/2021 1:03 PM CDT Height 160 cm (5' 3 ) 09/01/2021 1:03 PM CDT Body Mass Index 23.38 09/01/2021 1:03 PM CDT documented in this encounter Progress Notes * Ranjan Cazares MD - 09/01/2021 1:30 PM CDT Images from the original note were not included. Ranjan Cazares M.D., M.P.H. outdoor adventure guides [facility] - voice - fax [facility] Thoracic Surgery Consult / History and Physical 09/02/2021 Terry Bender DO Loida Guillory [address] Bender: Thank you for asking me to see Loida Guillory in consultation for a right upper lobe non-small celllung cancer. As you know, she is a 71 y.o. female who initially presented with some jaw pain. She had a neck CT which identified a pulmonary nodule that was followed up on. She is a former smoker whoquit in 2016 with a 40 pack year history. She comes to the office today with her family who are very supportive. She has a good performance status and can easily walk up 2 flights of stairs. She watches 1 of her grandchildren on a regular basis and is able to keep up with them. She denies any cough, hemoptysis, chest pain, headaches or weight loss. I saw this patient with Mary Chong NP. I have reviewed and agree with the past medical history, social history, family history entered into the medical record. We performed a complete review of symptoms which was negative other than what is mentioned in the HPI. We also reviewed and updated the medication list and allergies. she has an ECOG performance status of 1. I have reviewed the vital signs entered into the medical record. she is comfortable and in no acutedistress. she is anicteric with no cervical or supraclavicular adenopathy. Neck is supple. Breath sounds are clear bilaterally and cardiac exam is regular rate and rhythm. Abdomen is soft and non-tender. There is no lower extremity edema. Skin is warm and dry. Mood and affect are normal. I have independently reviewed the imaging including: Chest CT scan from August 11 it was a 1.4 cm right upper lobe pulmonary nodule. She has some calcified hilar lymph node but no suspicious hilar or mediastinal lymphadenopathy. I have ordered and reviewed the following clinical lab tests: Pulmonary function tests from today show an FEV1 of 66% predicted and a diffusing capacity of 48% predicted. I have reviewed the old records including: CT-guided biopsy from August 23 shows a squamous cell carcinoma. Her recent laboratory tests show an albumin of 4.1, normal liver function and good renal function with a creatinine of 1.1. I discussed all of this with her and her family. She appears to have a clinical stage I non-small cell lung cancer but given that her tumor is over a cm, I have ordered an integrated PET-CT scan. I am just doing this to be sure there is no suspicious hilar or mediastinal lymphadenopathy that needs to be sampled preoperatively. However, I anticipate that this will be consistent with a stage I non-small cell lung cancer and I will then proceed with a robotic assisted right upper lobe lobectomy. Isi sent a tentative date for September 12. I would anticipate a 2-3 day hospital stay with a a 1% risk of mortality and a 10% risk of complications from the Society of thoracic Surgeons. She does have some emphysema and a low diffusing capacity so her risk may be slightly higher. I discussed with them the alternative treatment of stereotactic radiation therapy but both she and her family would prefer to have this resected and I believe she has the performance status and reserve to tolerate a right upper lobe lobectomy. She understands she may be a little more short of breath postoperative a part icularly when walking up a hill or doing more strenuous activity. My total encounter time on 09/01/2021 was 65 minutes which was spent in the activities documented inthe note. This includes time spent prior to the visit and after the visit in direct care of the patient. This time does not include time spent in any separately reportable services. Thank you very much. Yours sincerely, Ranjan Cazares MD, MPH Processing Operator completed by using [employer] Direct speaking software, therefore, transcriptionvariances may occur. documented in this encounter Plan of Treatment Scheduled Referrals Name Type Priority Associated Diagnoses Order Schedule Ambulatory referral to Cardiothoracic Surgery Outpatient Referral Routine Malignant neoplasm of lung, unspecified laterality, unspecified part of lung (HCC) Ordered: 08/29/2021 documented as of this encounter Visit Diagnoses Diagnosis Malignant neoplasm of upper lobe of right lung (HCC)- Primary documented in this encounter Care Teams Mapping Editor Relationship Specialty Start Date End Date Terry Bender DO PCP - General Internal Medicine 01/03/18 05/14/22 Wilmer Taylor MD [address] [place] [address] Referring Physician Obstetrics and Gynecology 05/09/12 Jeffrey Koch MD [address] [place] [address] Consulting Physician Rheumatology 02/03/21 documented as of this encounter
--- OUTSIDE RECORDS SUMMARY | 2024-05-03 02:51 | XMS_ITS | Encounter Summary ---
Author Organization [facility] Address [address] [facility] [address] [place] [address] Phone Care Team Providers Care Molder Labels Name Role Phone Terry Bender DO Primary Care Provider [phone] Wilmer Taylor MD Unavailable [phone] Jeffrey Koch MD Unavailable [phone] Reason for Referral * Pulmonology (Routine) - Closed Specialty Diagnoses / Procedures Referred By Contac t Referred To Contact Pulmonology Diagnoses Malignant neoplasm of lung, unspecified laterality, unspecified part of lung (HCC) Procedures Pulmonary Function Test -[facility] Adult PFT Lab- CAM-8D; Spirometry with Bronchodilator, DLCO; Lung volumes; Pleth with Airway Resistance Ranjan Cazares MD [address] [facility] [address] [place] [address] Phone: tel: fax: Referral ID Status Reason Start Date Expiration Date Visits Re quested Visits Authorized [id number] Closed 08/31/2021 09/30/2022 1 1 Reason for Visit * Pulmonology (Routine) - Closed Specialty Diagnoses / Procedures Referred By Contac t Referred To Contact Pulmonology Diagnoses Malignant neoplasm of lung, unspecified laterality, unspecified part of lung (HCC) Procedures Pulmonary Function Test -[facility]- CAM-8D; Spirometry with Bronchodilator, DLCO; Lung volumes; Pleth with Airway Resistance Ranjan Cazares MD [address] [place] [address] Phone: tel: fax: Referral ID Status Reason Start Date Expiration Date Visits Re quested Visits Authorized [id number] Closed 08/31/2021 09/30/2022 1 1 Encounter Details Date Type Department Care Team (Latest Contact Info) Description 09/01/2021 10:43 AM CDT - 09/01/2021 11:59 PM CDT Hospital Encounter [facility] Pulmonary [address] [facility] [address] [place] [address] Malignant neoplasm of lung, unspecified laterality, unspecified part of lung (HCC) Discharge Disposition: Discharge to home [...] on file 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 Gender Identity Not on file Sexual Orientation [...] total) by mouth every morning 02/26/2021 omega 1-zmq-hou-fish oil 100-160-1,000 mg capsuleIndicatio ns:hypertriglyce ridemia Take [...] total) by mouth every 7 days Every Wednesday 60 tablet 1 02/28/2021 2 nicotine (NICODERM [...] Diagnosis Comments PULMONARY FUNCTION TEST (PFT) Routine 09/01/2021 11:33 AM CDT Malignant neoplasm of lung, unspecified laterality, unspecified part of lung (HCC) documented in this encounter Results * Pulmonary Function Test - (09/01/2021 11:33 AM CDT) FVC PRE 2.22 L [facility] FVC %PRE PRED 83 % [facility] FVC POST 2.31 L [facility] FVC %POST PRED 86 % [facility] FEV1 PRE 1.24 L [facility] FEV1 %PRE PRED 60 % [facility] FEV1 POST 1.36 L [facility] FEV1 %POST PRED 66 % [facility] FEV1/FVC PRE 55.9 % [facility] FEV1/FVC POST 58.8 % [facility] FRC PL PRE 4.32 L [facility] FRC PL %PRE PRED 154 % [facility] RV PRE 3.88 L [facility] RV %PRE PRED 176 % [facility] TLC PRE 6.26 L [facility] TLC %PRE PRED 127 % [facility] DLCO PRE 9.1 ml/min/mmH g [facility] DLCO %PRE PRED 48 % [facility] Anatomical Region Laterality Modality PFT 09/01/2021 10:4 7 AM CDT Narrative 09/06/2021 12:34 PM CDT SEE PDF PFT performed at:->[facility]- CAM-8D Procedure:->Spirometry with Bronchodilator Procedure:->DLCO DLCO:->Lung volumes Lung Volumes via:->Pleth with Airway Resistance Ranjan Cazares MD PFT ORDERABLES Final Result documented in this encounter Visit Diagnoses Diagnosis Malignant neoplasm of lung, unspecified laterality, unspecified part of lung (HCC) documented in this encounter Care Teams Molder Labels Relationship Specialty Start Date End Date YuliaCodeyeDO PCP - General Internal Medicine 01/03/18 05/14/22 Wilmer Taylor MD [address] [address] Referring Physician Obstetrics and Gynecology 05/09/12 Jeffrey Koch MD [address] [place] [address] Consulting Physician Rheumatology 02/03/21 documented as of this encounter
--- OUTSIDE RECORDS SUMMARY | 2024-05-03 02:51 | XMS_ITS | Encounter Summary ---
Author Organization [facility] Address [address] [place] [address] Phone Care Team Providers Care Rn Visiting Name Role Phone Wilmer Taylor MD Unavailable [phone] Jeffrey Koch MD Unavailable [phone] Luz Lewis MD Unavailable [phone] Sin Mcclure MD Primary Care Provider [phone] Reason for Visit * Consultation (Routine) - Closed Specialty Diagnoses / Procedures Referred By Contac t Referred To Contact Rheumatology Diagnoses 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) Sin Mcclure MD [address] [place] [address] Phone: tel: fax: [facility] [address] [place] [address] Phone: tel: fax: Referral ID Status Reason Start Date Expiration Date V isits Requested Visits Authorized [id number] Closed Specialty Services Required 05/12/2022 05/13/2023 3 3 Encounter Details Date Type Department Care Team (Late st Contact Info) Description 10/09/2022 1:15 PM CDT Office Visit [facility] [address] [place] [address] Martina Elizabeth PA [address] [place] [address] 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) (Primary Dx); Neck pain; intermediate card tender current use 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 drug Social History [...] on file 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 Gender Identity Not on file Sexual Orientation Not on file documented as of this encounter Last Filed Vital Signs Vital Sign Reading Time Taken Comments Blood Pressure 136/72 10/09/2022 1:11 PM CDT Pulse 48 10/09/2022 1:11 PM CDT Temperature - - Respiratory Rate - - Oxygen Saturation 96% 10/09/2022 1:11 PM CDT Inhaled Oxygen Concentration - - Weight 66.7 kg (147 lb) 10/09/2022 1:11 PM CDT Height 160 cm (5' 3 ) 10/09/2022 1:11 PM CDT Body Mass Index 26.04 10/09/2022 1:11 PM CDT documented in this encounter Progress Notes * Martina Elizabeth PA - 10/09/2022 1:15 PM CDT Images from the original note were not included. Subjective/Objective Patient ID: Loida Guillory is a 72 y.o. female. Chief Complaint RA HPI Returns for routine follow up and is accompanied by her daughter today. Notes left 4th DIP joint pain and swelling with redness the past few months. Using topical Voltarenwith benefit for a few hours. Takes tylenol arthritis but does not help much. Had trouble getting MTX from pharmacy and wants future refills to go to [facility] as she has no copay. Had to go to [facility] as she was going to run out of meds. Denies fevers, infections, rashes, mouth sores, cough, dyspnea, n/v. Joint pain today is 10. AM stiffness = few minutes Review of Systems Constitutional: Positive for fatigue. Negative for chills and fever. HENT: Negative for congestion and mouth sores. Respiratory: Negative for cough and shortness of breath. Cardiovascular: Negative for chest pain. Gastrointestinal: Negative for abdominal pain, diarrhea, nausea and vomiting. Musculoskeletal: Positive for arthralgias. Negative for myalgias. Skin: Negative for rash. Vitals: Vitals BP 136/72 Pulse (!) 48 Ht 160 cm (5' 3 ) Wt 66.7 kg (147 lb) SpO2 96% BMI 26.04 kg/m?? Body mass index is 26.04 kg/m??. Bold X is a current medication. [...] Labs Lab Results Component Value Date WBC 9.1 05/15/2022 HGB 13.4 05/15/2022 HCT 38.1 05/15/2022 MCV 95.5 05/15/2022 Lab Results Component Value Date GLUCOSE 100 (H) 05/15/2022 CALCIUM 9.7 05/15/2022 SODIUM 139 05/15/2022 POTASSIUM 4.3 05/15/2022 CO2 26 05/15/2022 CHLORIDE 105 05/15/2022 BUNSER 18 05/15/2022 CREATININE 1.05 (H) 05/15/2022 Lab Results Component Value Date ALT 14 05/15/2022 AST 16 05/15/2022 ALKPHOS 91 05/15/2022 BILITOT 0.5 05/15/2022 Lab Results Component Value Date SEDRATE 38 (H) 05/15/2022 Lab Results Component Value Date CRP 2.5 05/15/2022 Assessment/Plan Diagnoses and all orders for this [...] prn with good relief. Continue home exercises. intermediate card tender current use 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 drug Assessment & Plan: Hepatitis negative: 02/2021 Orders: - Comprehensive metabolic panel; Future - CBC with auto differential; Future - Erythrocyte sedimentation rate; Future - CRP (acute phase); Future Martina Elizabeth PA-C Cosigned by Jeffrey Koch MD at 10/09/2022 4:25 PM CDT documented in this encounter Miscellaneous Notes * Assessment & Plan Note - Martina Elizabeth PA - 10/09/2022 1:31 PM CDT Associated Problem(s): Rheumatoid arthritis involving both hands [...] Plan Note - Martina Elizabeth PA - 10/09/2022 1:30 PM CDT Associated Problem(s): Neck pain Pain worse [...] Plan Note - Martina Elizabeth PA - 10/09/2022 1:07 PM CDT Associated Problem(s): halfway current use 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 drug Hepatitis negative: 02/2021 documented in this encounter Plan of Treatment Not on file documented as of this encounter Procedures Procedure Name Priority Date/Time Associated Diagnosis Comments CBC WITH AUTO DIFFERENTIAL Routine 10/09/2022 1:49 PM CDT halfway current use 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 drug 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) ERYTHROCYTE SEDIMENTATION RATE Routine 10/09/2022 1:49 PM CDT intermediate card tender current use 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 drug 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) CRP (ACUTE PHASE) Routine 10/09/2022 1:4 9 PM CDT intermediate card tender current use 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 drug 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) COMPREHENSIVE METABOLIC PANEL Routine 10/09/2022 1:49 PM CDT intermediate card tender current use 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 drug 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) documented in this encounter Results * CRP (acute phase) (10/09/2022 1:49 PM CDT) C-RP 2.5 <8.0 mg/L [facility] Blood 10/09/2022 1:49 PM CDT 10/09/2022 1:49 PM CDT Martina JONES LAB BLOOD ORDERABLES Final Result [facility] [address] [place] [address] * (ABNORMAL) Erythrocyte sedimentation rate (10/09/2022 1:49 PM CDT) Pathologist [facility] Erythrocyte sedimentation rate 36(H) < OR = 30 mm/h [facility] Blood 10/09/2022 1:49 PM CDT 10/09/2022 1:49 PM CDT Martina JONES LAB BLOOD ORDERABLES Final Result [facility] [address] [place] [address] * CBC with auto differential (10/09/2022 1:49 PM CDT) [facility] WBC 8.7 3.8 - 10.8 Thousand/u L [facility] RBC, POC 3.85 3.80 - 5.10 Million/uL [facility] Hgb 12.7 11.7 - 15.5 g/dL [facility] Hct 37.7 35.0 - 45.0 % [facility] MCV 97.9 80.0 - 100.0 fL [facility] MCH 33.0 27.0 - 33.0 pg [facility] MCHC 33.7 32.0 - 36.0 g/dL [facility] Rdw 13.1 11.0 - 15.0 % [facility] Platelets 268 140 - 400 Thousand/u L [facility] MPV 10.2 7.5 - 12.5 fL [facility] Neutrophils, abs 5,264 1,500 - 7,800 cells/uL [facility] Lymphocytes, abs 2,445 850 - 3,900 cells/uL [facility] Monocyte abs 774 200 - 950 cells/uL [facility] Eosinophils, abs 139 15 - 500 cells/uL [facility] Basophils, abs 78 0 - 200 cells/uL [facility] Neutrophils 60.5 % [facility] Lymphocyte pct 28.1 % [facility] Monocytes 8.9 % [facility] Eosinophils 1.6 % [facility] Basophils 0.9 % [facility] Blood 10/09/2022 1:49 PM CDT 10/09/2022 1:49 PM CDT Martina JONES LAB BLOOD ORDERABLES Final Result [facility] [address] [place] [address] * (ABNORMAL) Comprehensive metabolic panel (10/09/2022 1:49 PM CDT) Glucose 94 65 - 99 mg/dL [facility] Comment: ? Fasting reference interval BUN 20 7 - 25 mg/dL [facility] Creatinine 1.03(H) 0.60 - 1.00 mg/dL [facility] eGFR 57(L) > OR = 60 mL/min/1.7 3m2 [facility] Comment: The eGFR is based on the CKD-EPI 2020 equation. To calculate the new eGFR from a previous Creatinine or Cystatin C result, go to https://www.kidney.org/professionals/ kdoqi/gfr%5Fcalculator BUN/creat ratio 19 6 - 22 (calc) [facility] Sodium 140 135 - 146 mmol/L [facility] Potassium, pl 4.1 3.5 - 5.3 mmol/L [facility] Chloride 106 98 - 110 mmol/L [facility] CO2 25 20 - 32 mmol/L [facility] Calcium 9.2 8.6 - 10.4 mg/dL [facility] Protein, sr 6.5 6.1 - 8.1 g/dL [facility] Albumin 3.7 3.6 - 5.1 g/dL [facility] GLOBULIN 2.8 1.9 - 3.7 g/dL (calc) [facility] Alb/glob ratio 1.3 1.0 - 2.5 (calc) [facility] Bilirubin, total 0.4 0.2 - 1.2 mg/dL [facility] Alk phos 79 37 - 153 U/L [facility] AST 20 10 - 35 U/L [facility] ALT (SGPT) 15 6 - 29 U/L [facility] Blood 10/09/2022 1:49 PM CDT 10/09/2022 1:49 PM CDT us Martina JONES LAB BLOOD ORDERABLES Final Result [facility] [address] [place] [address] documented in this encounter Visit Diagnoses Diagnosis 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
--- OUTSIDE RECORDS SUMMARY | 2024-05-03 02:51 | XMS_ITS | Encounter Summary ---
Author Organization [facility] Address [address] [place] [address] Phone Care Team Providers Care Safety Relief Valve Technician Name Role Phone Terry Bender Primary Care Provider [phone] Wilmer Taylor MD Unavailable [phone] Jeffrey Koch MD Unavailable [phone] Luz Lewis MD Unavailable [phone] Encounter Details Date Type Department Care Team (Late st Contact Info) Description 05/02/2022 Orders Only [facility] Surgery [address] [facility] Advanced Medicine 8th [place] [address] [place] [address] Mary Chong, GWENDOLYN [address] [place] [address] Malignant neoplasm of lung, unspecified laterality, unspecified part of lung (HCC) (Primary Dx) Social History Tobacco [...] on file 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 Gender Identity Not on file Sexual Orientation Not on file documented as of this encounter Plan of Treatment Not on file documented as of this encounter Visit Diagnoses Diagnosis Malignant neoplasm of lung, unspecified laterality, unspecified part of lung (HCC)- Primary documented in this encounter Orders Appointment Requests Count Last Ordered Date Fi rst Ordered Date ONCBCN CLINIC APPOINTMENT REQUEST 1 023 documented in this encounter Care Teams Safety Relief Valve Technician Relationship Specialty Start Date End Date Terry Bender DO PCP - General Internal Medicine 01/03/18 05/14/22 Wilmer Taylor MD [facility] [address] [address] Referring Physician Obstetrics and Gynecology 05/09/12 Jeffrey Koch MD [address] [place] [address] Consulting Physician Rheumatology 02/03/21 Luz Lewis MD [address] [place] [address] Referring Physician Surgery 12/14/21 documented as of this encounter
--- OUTSIDE RECORDS SUMMARY | 2024-05-03 02:51 | XMS_ITS | Encounter Summary ---
Author Organization [facility] Address [address] [place] [address] Care Team Providers Care Windsurfing Instructor Name Role Phone Terry Bender DO Primary Care Provider Wilmer Taylor MD Unavailable [phone] Jeffrey Koch MD Unavailable [phone] Reason for Visit * Reason Comments Follow-up Encounter Details Date Type Department Care Team (Late st Contact Info) Description 11/21/2021 12:00 PM CDT Office Visit [facility] [address] [place] [address] Luz Lewis MD [address] [facility] [facility] [address] [place], [place] [id number] AIN grade III (Primary Dx) Social History [...] on file 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 Gender Identity Not on file Sexual Orientation Not on file documented as of this encounter Last Filed Vital Signs Vital Sign Reading Time Taken Comments Blood Pressure - - Pulse - - Temperature - - Respiratory Rate - - Oxygen Saturation - - Inhaled Oxygen Concentration - - Weight 60.3 kg (133 lb) 11/21/2021 11:54 AM CDT Height 162.6 cm (5' 4 ) 11/21/2021 11:54 AM CDT Body Mass Index 22.83 11/21/2021 11:54 AM CDT documented in this encounter Progress Notes * Luz Lewis MD - 11/21/2021 12:00 PM CDT Colorectal Surgery Consultation Consult requested by Terry Bender DO for HAWA/AIN3 Chief Complaint: Loida Guillory is a 71 y.o. female with chief complaint of HAWA/AIN3 . HPI: oLida Guillory is a 71 y.o. female with [...] 1994 Cyst x2 removed from overies ??? [place] BREAST SURGERY PROCEDURE UNLISTED Right 1978 Cyst [...] tablet nicotine (NICODERM CQ) 21 mg omega [id number]-uri-fish oil 100-160-1,000 mg capsule oxyCODONE (ROXICODONE) 5 [...] Negative Pulmonary: Negative Gastrointestinal: Negative Genitourinary: Negative Development Eng/lymphatic: Negative Immunologic: Negative Musculoskeletal: Negative Neurologic: Negative [...] in the near future. Luz Lewis MD [facility] Colorectal Surgery 11/21/21 11:56 AM This note was transcribed using [employer] Speech Recognition software. As a result, there may be unintended grammar and spelling errors. Every attempt is made to have correct dictation. If there are any questions or major errors, please contact me. 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 [address] [address] Referring Physician Obstetrics and Gynecology 05/09/12 Jeffrey Koch MD [address] [place] [address] Consulting Physician Rheumatology 02/03/21 documented as of this encounter
--- OUTSIDE RECORDS SUMMARY | 2024-05-03 02:51 | XMS_ITS | Encounter Summary ---
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) (Primary Dx); 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 Social History [...] on file 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 Gender Identity Not on file Sexual Orientation Not on file documented as of this encounter Last Filed Vital Signs Vital Sign Reading Time Taken Comments Blood Pressure 144/70 10/17/2021 10:33 AM CDT Pulse 72 10/17/2021 10:33 AM CDT Temperature - - Respiratory Rate - - Oxygen Saturation 92% 10/17/2021 10:33 AM CDT Inhaled Oxygen Concentration - - Weight 59.4 kg (131 lb) 10/17/2021 10:33 AM CDT Height 162.6 cm (5' 4 ) 10/17/2021 10:33 AM CDT Body Mass Index 22.49 10/17/2021 10:33 AM CDT documented in this encounter Progress Notes * Martina Elizabeth PA - 10/17/2021 10:45 AM CDT Images from the original note were not included. Subjective/Objective Patient ID: Loida Guillory is a 71 y.o. female. Chief Complaint RA HPI Returns for routine follow up. 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 States she has not had to have any chemo or radiation. Notes some SINGLETARY but was told by the rn progressive care that it would take about 6 months to find her new normal . Restarted MTX 2 weeks following surgery. Joints continue to do well and denies any flares. Denies fevers, infections, rashes, mouth sores, cough, n/v. Joint pain today is 1 /10. AM stiffness = few minutes Review of Systems Constitutional: Positive for fatigue. Negative for chills and fever. HENT: Negative for congestion and mouth sores. Respiratory: Positive for shortness of breath (on exertion). Negative for cough. Cardiovascular: Negative for chest pain. Gastrointestinal: Negative for abdominal pain, diarrhea, nausea and vomiting. Musculoskeletal: Positive for arthralgias. Negative for myalgias. Skin: Negative for rash. Vitals: Vitals BP 144/70 Pulse 72 Ht 162.6 cm (5' 4 ) Wt 59.4 kg (131 lb) SpO2 92% BMI 22.49 kg/m?? Body mass index is 22.49 kg/m??. Bold X is a current medication. Medication Taking/taken D/C or avoidance reason Hydroxychloroquine ?? Pt worried about s/e Methotrexate -started 2014 X ?? Leflunomide ? Azathioprine ? Sulfasalazine ? CellCept ? Humira ? Enbrel ? Simponi ? Cimzia ? Simponi aria ? Remicade ? Cosentyx ? Taltz ? Orencia ?? Avoid - COPD Stelara ? Tremfya ? Xeljanz ? Rinvoq ? Actemra ? Kevzara ? Olumiant ? Kineret ? Benlysta ? Rituxan ? Otezla ? Tylenol X ?? NSAIDs X Voltaren gel otc Prednisone ? Physical Exam Constitutional: oriented to person, place, [...] Labs Lab Results Component Value Date WBC 12.4 (H) 09/12/2021 HGB 10.3 (L) 09/12/2021 HCT 31.7 (L) 09/12/2021 MCV 103.3 (H) 09/12/2021 Lab Results Component Value Date GLUCOSE 103 09/12/2021 CALCIUM 8.4 (L) 09/12/2021 SODIUM 139 09/12/2021 POTASSIUM 4.2 09/12/2021 CO2 27 09/12/2021 CHLORIDE 106 09/12/2021 BUNSER 14 09/12/2021 CREATININE 0.87 09/12/2021 Lab Results Component Value Date ALT 24 06/20/2021 AST 18 06/20/2021 ALKPHOS 66 06/20/2021 BILITOT 0.4 06/20/2021 Lab Results Component Value Date SEDRATE 28 06/20/2021 Lab Results Component Value Date CRP 11.2 (H) 06/20/2021 Patient Global: 10 mm Provider Global: 10 mm CDAI: 3 In remission: 0-3 Low: 4-10 Moderate: 11-22 High: 23 or > Assessment/Plan Diagnoses and all orders for this visit: 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) (Primary) Assessment & Plan: Seropositive RA (+RF, CCP) that remains well [...] rate; Future - CRP (acute phase); 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 Assessment & Plan: Hepatitis negative: 02/2021 Orders: - Comprehensive metabolic panel; Future - CBC with auto differential; Future - Erythrocyte sedimentation rate; Future - CRP (acute phase); Future Martina Elizabeth PA-C Cosigned by Jeffrey Koch MD at 10/25/2021 10:46 AM CDT documented in this encounter Miscellaneous Notes * Assessment & Plan Note - Martina Elizabeth PA - 10/17/2021 12:11 PM CDTAssociated Problem(s): 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 Sooner if needed. 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 ERYTHROCYTE SEDIMENTATION RATE Routine 10/17/2021 11:02 AM CDT 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) MCC current use 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 drug CRP (ACUTE PHASE) Routine 10/17/2021 11: 02 AM CDT 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) 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 COMPREHENSIVE METABOLIC PANEL Routine 10/17/2021 11:02 AM CDT 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) 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 documented in this encounter Results * (ABNORMAL) CRP (acute phase) (10/17/2021 11:02 AM CDT) Pathologist [facility] C-RP 8.6(H) <8.0 mg/L [facility] Blood specimen (specimen) 10/17/2021 11:02 AM CDT 10/17/2021 11:03 AM CDT Martina JONES LAB BLOOD ORDERABLES Final Result [facility] [address] [place] [address] * (ABNORMAL) Erythrocyte sedimentation rate (10/17/2021 11:02 AM CDT) [facility] Erythrocyte sedimentation rate 41(H) < OR = 30 mm/h [facility] Blood specimen (specimen) 10/17/2021 11:02 AM CDT 10/17/2021 11:03 AM CDT Martina JONES LAB BLOOD ORDERABLES Final Result [facility] [address] [place] [address] * (ABNORMAL) CBC with auto differential (10/17/2021 11:02 AM CDT) Pathologist [facility] WBC 9.3 3.8 - 10.8 Thousand/u L [facility] RBC, POC 3.87 3.80 - 5.10 Million/uL [facility] Hgb 12.9 11.7 - 15.5 g/dL [facility] Hct 38.3 35.0 - 45.0 % [facility] MCV 99.0 80.0 - 100.0 fL [facility] MCH 33.3(H) 27.0 - 33.0 pg [facility] MCHC 33.7 32.0 - 36.0 g/dL [facility] Rdw 12.6 11.0 - 15.0 % [facility] Platelets 283 140 - 400 Thousand/u L [facility] MPV 10.6 7.5 - 12.5 fL [facility] Neutrophils, abs 6,017 1,500 - 7,800 cells/uL [facility] Lymphocytes, abs 2,297 850 - 3,900 cells/uL [facility] Monocyte abs 828 200 - 950 cells/uL [facility] Eosinophils, abs 102 15 - 500 cells/uL [facility] Basophils, abs 56 0 - 200 cells/uL [facility] Neutrophils 64.7 % [facility] Lymphocyte pct 24.7 % [facility] Monocytes 8.9 % [facility] Eosinophils 1.1 % [facility] Basophils 0.6 % [facility] Blood specimen (specimen) 10/17/2021 11:02 AM CDT 10/17/2021 11:03 AM CDT Martina JONES LAB BLOOD ORDERABLES Final Result [facility] [address] [place] [address] * (ABNORMAL) Comprehensive metabolic panel (10/17/2021 11:02 AM CDT) [facility] Glucose 99 65 - 99 mg/dL [facility] Comment: ? Fasting reference interval BUN 13 7 - 25 mg/dL [facility] Creatinine 0.97(H) 0.60 - 0.93 mg/dL [facility] Comment: For patients >49 years of age, the reference limit for Creatinine is approximately 13% higher for people identified as -[place]. eGFR NON-AFR. BAR[place] 58(L) > OR = 60 mL/min/1. 73m2 [facility] EGFR 67 > OR = 60 mL/min/1. 73m2 [facility] BUN/creat ratio 13 6 - 22 (calc) [facility] Sodium 140 135 - 146 mmol/L [facility] Potassium, pl 4.5 3.5 - 5.3 mmol/L [facility] Chloride 104 98 - 110 mmol/L [facility] [...] 1.2 mg/dL [facility] Alk phos 72 37 - 153 U/L [facility] AST 13 10 - 35 U/L [facility] ALT (SGPT) 9 6 - 29 U/L [facility] Blood specimen (specimen) 10/17/2021 11:02 AM CDT 10/17/2021 11:03 AM CDT us Martina JONES LAB BLOOD ORDERABLES Final Result Performing Organization Address City/State/[facility] Co de Phone Number [facility] [address] [place] [address] documented in this encounter Visit Diagnoses Diagnosis 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)- Primary MCC current use 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 drug documented in this encounter Care Teams Professor Of Musicology Relationship Specialty Start Date End Date Terry Bender DO PCP - General Internal Medicine 01/03/18 05/14/22 Wilmer Taylor MD [address] [facility] [address] [place] [id number] Referring Physician Obstetrics and Gynecology 05/09/12 Jeffrey Koch MD [address] [place] [address] Consulting Physician Rheumatology 02/03/21 documented as of this encounter
--- OUTSIDE RECORDS SUMMARY | 2024-05-03 02:51 | XMS_ITS | Encounter Summary ---
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] Procedures [place] SURG DIAGNOSTIC EXAM, ANORECTAL Exam Under Anesthesia, Acetic Acid Staining, Excison of Perianal Lesions Referral ID Status Reason Start Date Expiration Date Visits Re quested Visits Authorized [id number] 1 1 Encounter Details Date Type Department Care Team (Late st Contact Info) Description 12/14/2021 11:59 AM CDT Anesthesia Event [facility] Operating Room [address] [place] [id number] Camryn Laura MD [address], [place] [id number] Rafaela Irving NP [address] [place] [address] Anesthesia Record Procedure Summary Procedure Name Responsible Anesthesiologist Anesthesia Start Time Anesthesia Stop Time Exam Under Anesthesia, Acetic Acid Staining, Excison of Perianal Lesions Camryn Laura MD 12/14/21 1159 12/14/21 1235 Events Date Time Event Comment 12/14/2021 1152 1159 An Start 1204 In Room 1205 An Start Data 1209 Quick Note Patient janeth garner herself in comfortable position on OR table. 1212 An Induction The patient was reevaluated immediately before moderate or deep sedation use and before anesthesia induction. 1216 Anesthesia Ready 1219 Proc Start 1224 Proc Fin 1228 an stop data 1229 Out of Room 1233 Handoff to RN I completed my handoff [...] disposition at the time of handoff: PACU 1235 An Stop 1238 Release from care Meds Name Total fentaNYL 50 mcg lidocaine (CARDIAC) syringe 2 % 2 mL propofol 80 mg propofol 44.85 mg ondansetron 4 mg dexamethasone 4 mg/ml 4 mg LR 500 mL * Agents Name O2 Sevoflurane Inspired Sevoflurane * Blood No blood administrations on file. Lines, Drains, and Airways Type Details Placement Removal RETIRED Surgical Site 04/08/19; 1327; Groin; 03/25/24 (Retired LDA, Removed/Completed by [employer] with LDA Utility); 1213 (Retired LDA, Removed/Completed by [employer] with LDA Utility) 04/08/19 1327 by Bruna May RN 03/25/24 1213 by Discharge Provider, Automatic RETIRED Surgical Site 04/08/19; 1327; Vagina; 03/25/24 (Retired LDA, Removed/Completed by [employer] with LDA Utility); 1213 (Retired LDA, Removed/Completed by [employer] with LDA Utility) 04/08/19 1327 by Bruna May RN 03/25/24 1213 by Discharge Provider, Automatic RETIRED Surgical Site 07/06/21; 1229; Buttocks; 03/25/24 (Retired LDA, Removed/Completed by [employer] with LDA Utility); 1213 (Retired LDA, Removed/Completed by [employer] with LDA Utility) 07/06/21 1229 by Yvette Gillespie RN 03/25/24 1213 by Discharge Provider, Automatic RETIRED Surgical Site 09/12/21; 1227; Right; Chest; Robotic access sites x4; 03/25/24 (Retired LDA, Removed/Completed by [employer] with LDA Utility); 1213 (Retired LDA, Removed/Completed by [employer] with LDA Utility) 09/12/21 1227 by Jin Mkcee RN 03/25/24 1213 by Discharge Provider, Automatic Peripheral IV Placement Date: 12/14/21; Placement Time: 1140; Catheter Size: 20 G; Orientation: Posterior, Right; Location: Wrist; Removal Date: 12/14/21; Removal Time: 1323 12/14/21 1140 by Delon Schneider RN 12/14/21 1323 by Berkley Angel, DIGNA RETIRED Surgical Site 12/14/21; 1222; Sharlene-anal; 03/25/24 (Retired LDA, Removed/Completed by [employer] with LDA Utility); 1213 (Retired LDA, Removed/Completed by [facility] with LDA Utility) 12/14/21 1222 by Georgette Kilgore RN 03/25/24 1213 by Discharge Provider, Automatic documented in this encounter Social History Tobacco [...] on file 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 Gender Identity Not on file Sexual Orientation Not on file documented as of this encounter OR Notes * Anesthesia Postprocedure Evaluation - Amy Morris CRNA - 12/14/2021 12:38 PM CDT Patient: Loida Guillory Procedure Summary Date: 12/14/21 Room / Location: [facility] OPERATING ROOM 14W / [facility] OPERATING ROOM Anesthesia Start: 1159 Anesthesia Stop: 1235 Procedure: Exam Under Anesthesia, Acetic Acid Staining, Excison of Perianal Lesions (N/A ) Diagnosis: 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]) Surgeons: Luz Lewis MD Responsible Provider: Camryn Laura MD Anesthesia Type: general/TIVA ASA Status: 3 Anesthesia Type: general/TIVA Last vitals BP 110/54 Pulse 58 Temp 36.5 ??C (97.7 ??F) (Temporal) Resp 22 SpO2 100% Anesthesia Post Evaluation Patient location during evaluation: PACU Patient participation: complete - patient participated Level of consciousness: follows simple commands and fully awake Pain score: 0 Pain management: adequate Airway patency: adequate Cardiovascular status: acceptable and hemodynamically stable Respiratory status: acceptable and room air Hydration status: acceptable Pt is: normothermic Nausea/Vomiting status: none No complications documented. * Anesthesia Preprocedure Evaluation - Camryn Laura MD - 12/14/2021 11:52 AM CDT Images from the original note were not included. Anesthesia Evaluation Loida Guillory is a 71 y.o. 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 Asymptomatic. Endocrine / Other + Cancer history Cancer type: Lung CA s/p resection 09/11. Functional Capacity Functional capacity: <4 METs Review of Systems + SOB (chronic, stable) Pertinent negatives: recent cold/flu; nausea; dentures/partials and chipped/loose teeth Patient Active Problem List Diagnosis ??? Anal dysplasia ??? Hypertension ??? Encounter for postoperative care ??? HAWA III (vulvar intraepithelial neoplasia III) ??? 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) ??? Neck pain ??? skilled nursing current use 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 drug ??? Malignant [...] 1994 Cyst x2 removed from overies ??? [place] BREAST SURGERY PROCEDURE UNLISTED Right 1978 Cyst [...] Date Provider acetaminophen (TYLENOL) 500 mg tablet 12/14/2021 04/08/19 -- Maria Isabel Horan MD Take 2 tablets (1,000 mg total) by mouth every 6 (six) hours as needed for pain amLODIPine (NORVASC) 10 mg tablet 12/14/2021 09/14/21 -- Maribel Walker NP Take 1 tablet (10 mg total) by mouth daily after lunch Monitor BP at home and f/u with primary caredoctor for medication management. ascorbic acid (VITAMIN C) 500 mg tablet,chewable 12/13/2021 -- -- Mesha Greer MD aspirin 81 mg enteric coated tablet Past Month -- -- Mesha Greer MD budesonide-formoteroL (SYMBICORT) 160-4.5 mcg/actuation inhaler 12/14/2021 -- -- Mesha Greer MD calcium carbonate-vitamin D3 1,500 mg (600mg elemental) -800 unit per tablet 12/13/2021 -- -- Mesha Greer MD famotidine (PEPCID) 20 mg tablet 12/14/2021 02/26/21 -- Mesha Greer MD folic acid (FOLVITE) 1 mg tablet 12/13/2021 02/28/21 -- Martina Elizabeth PA Take 1 tablet (1 mg total) by mouth daily after lunch losartan (COZAAR) 25 mg tablet 12/14/2021 09/14/21 -- Maribel Walker NP Take 1 tablet (25 mg total) by mouth daily after lunch Monitor BP at home and f/u with primary caredoctor for medication management. methocarbamoL (ROBAXIN) 750 mg tablet More than a month 09/14/21 -- Maribel Walker NP Take 1 tablet (750 mg total) by mouth 4 (four) times a day methotrexate 2.5 mg tablet Past Week 11/08/21 -- Martina Elizabeth PA TAKE 5 TABLETS (12.5 MG TOTAL) BY MOUTH EVERY 7 DAYS EVERY SUNDAY Notes: Supervising MD is Jeffrey Koch MD ICD 10: [M05.741, M05.742] nicotine (NICODERM CQ) 21 mg Past Month -- -- Mesha Greer MD omega 8-kwh-wzn-fish oil 100-160-1,000 mg capsule 12/13/2021 -- -- Mesha Greer MD polyethylene glycol (MIRALAX) 17 gram packet More than a month 09/15/21 -- Maribel Walker NP Take 1 packet (17 g total) by mouth daily No current facility-administered medications for this encounter. Social History Tobacco Use Smoking Status Former Smoker ??? Packs/day: 0.25 ??? Years: 50.00 ??? Pack years: 12.50 ??? Start date: 1968 ??? Quit date: 2014 ??? Years since quittin.6 Smokeless Tobacco Never Used Alcohol Use: Not At Risk ??? Frequency of Alcohol Consumption: Never ??? Average Number of Drinks: Not on file ??? Frequency of Binge Drinking: Never Substance and Sexual Activity Drug Use Never Comment: CBD topical Family History Problem Relation Age of Onset ??? Breast cancer Other Family history of malignant neoplasm of breast - Relation: Aunt (Added by TW Conv) ??? Colon cancer Other Family history of colon cancer - Relation: Uncle (Added by TW Conv) Vitals: 12/14/21 1130 12/14/21 1135 12/14/21 1140 BP: Pulse: 63 64 62 Resp: 26 22 17 Temp: 36.6 ??C (97.8 ??F) SpO2: 100% 99% 97% PT: No results found for requested labs within last 720 hours. INR: No results found for requested labs within last 720 hours. APTT: No results found for requested labs within last 720 hours. Hgb A1C: No results found for requested labs within last 720 hours. CBC RBC: No results found for requested labs within last 720 hours. RDW: No results found for requested labs within last 720 hours. MCHC: No results found for requested labs within last 720 hours. MCH: No results found for requested labs within last 720 hours. MCV: No results found for requested labs within last 720 hours. Hct: No results found for requested labs within last 720 hours. Hgb: No results found for requested labs within last 720 hours. WBC: No results found for requested labs within last 720 hours. MPV: No results found for requested labs within last 720 hours. Platelets: No results found for requested labs within last 720 hours. RDW CV: No results found for requested labs within last 720 hours. RDW Sd: No results found for requested labs within last 720 hours. BMP Glucose: No results found for requested labs within last 720 hours. Calcium: No results found for requested labs within last 720 hours. Sodium: No results found for requested labs within last 720 hours. Potassium: No results found for requested labs within last 720 hours. CO2: No results found for requested labs within last 720 hours. Chloride: No results found for requested labs within last 720 hours. BUN: No results found for requested labs within last 720 hours. Creatinine: No results found for requested labs within last 720 hours. DOS Physical Exam Medical history, medications, and allergies reviewed. Attestation: This PAT evaluation 12/14/2021. Airway Exam: Mallampati: II Cervical ROM: limited extension TM distance: normal Cardiovascular Exam: Rate: regular Rhythm: regular Pulmonary Exam: LCTA, bilat Dental Exam: Otherwise appears intact Current state: Patient's current state is cooperative. Anesthesia Plan ASA 3 My patient is approved for the Anesthesia Controlled Medication protocol when under care of a HEEL NAIL RASPER Planned anesthesia: General/TIVA Induction: Induction: intravenous. Postoperative Plan: Patient's planned disposition post procedure is Outpatient. Informed Consent: Discussed plan with HEEL NAIL RASPER. Anesthesia plan and risks discussed with patient. Plan and Consent Comments: LMA/ETT as needed Discussed possibility of recall Consent and Attending signature: I and/or my designee have discussed the anesthesia plan, benefits, possible alternatives, parental presence at time of induction (if indicated), and clinically relevant risks that may include dental injury, unintentional awareness, and/or other complications. The patient and/or parent/legal guardian understand, and agree to proceed. All questions answered. documented in this encounter Plan of Treatment Not on file documented as of this encounter Visit Diagnoses Not on filedocumented in this encounter Administered Medications Inactive Administered Medications - up to 3 most recent administrations Medication Order MAR Action Action Date Dose Rate Site dexAMETHasone (DECADRON) 4 mg/mL injection intravenous, Administer over 2 Minutes, As needed, Starting on Sun12/14/21 at 1216, Anesthesia Intra-op Given 12/14/2021 12:16 PM CDT 4 mg fentaNYL (SUBLIMAZE) preservative free injection intravenous, As needed, Starting on Sun12/14/21 at 1214, Anesthesia Intra-op Given 12/14/2021 12:18 PM CDT 25 mcg Given 12/14/2021 12:14 PM CDT 25 mcg Lactated Ringer's (LR) infusion intravenous, Continuous PRN, Starting on Sun12/14/21 at 1200, Anesthesia Intra-op New Bag 12/14/2021 12:00 PM CDT lidocaine (cardiac) (XYLOCAINE) preservative free injection intravenous, As needed, Starting on Sun12/14/21 at 1211, Anesthesia Intra-op, Indications: Ventricular ArrhythmiasIndications:Ventricular Arrhythmias Given 12/14/2021 12:11 PM CDT 2 mL ondansetron (ZOFRAN) injection intravenous, Administer over 2 Minutes, As needed, Starting on Sun12/14/21 at 1216, Anesthesia Intra-op Given 12/14/2021 12:16 PM CDT 4 mg propofoL (DIPRIVAN) 10 mg/mL IV intravenous, As needed, Starting on Sun12/14/21 at 1212, Anesthesia Intra-op Given 12/14/2021 12:19 PM CDT 30 mg Given 12/14/2021 12:12 PM CDT 50 mg propofoL (DIPRIVAN) 10 mg/mL IV intravenous, Continuous PRN, Starting on Sun12/14/21 at 1212, Anesthesia Intra-op New Bag 12/14/2021 12:12 PM CDT 75 mcg/kg/min 26.91 mL/hr documented in this encounter Care Teams Road Mechanic Relationship Specialty Start Date End Date Terry Bender PCP - General Internal Medicine 01/03/18 05/14/22 Wilmer Taylor MD [address] [facility] [address] [place] [address] Referring Physician Obstetrics and Gynecology 05/09/12 Jeffrey Koch MD [address] [place] [address] Consulting Physician Rheumatology 02/03/21 Luz Lewis MD [address] [place] [address] Referring Physician Surgery 12/14/21 documented as of this encounter
--- OUTSIDE RECORDS SUMMARY | 2024-05-03 02:51 | XMS_ITS | Encounter Summary ---
Author Organization [facility] Medical Group Address [address] [facility] [address] [place] [address] Care Team Providers Care Director Of Adult Epilepsy Name Role Phone Terry Bender DO Primary Care Provider [phone] Wilmer Taylor MD Unavailable [phone] Jeffrey Koch MD Unavailable [phone] Luz Lewis MD Unavailable [phone] Reason for Visit * Reason Comments Follow-up Encounter Details Date Type Department Care Team (Late st Contact Info) Description 03/20/2022 11:15 AM GARLAND MAKER Office Visit [facility] [address] [facility] [address] [place] [address] Luz Lewis MD [address] [place], [place] [id number] AIN grade III (Primary Dx) Social History [...] on file Legal Sex Female 10:10 AM GARLAND MAKER Gender Identity Not on file Sexual Orientation Not on file documented as of this encounter Last Filed Vital Signs Vital Sign Reading Time Taken Comments Blood Pressure - - Pulse - - Temperature - - Respiratory Rate - - Oxygen Saturation - - Inhaled Oxygen Concentration - - Weight 63.5 kg (140 lb) 03/20/2022 11:08 AM GARLAND MAKER Height 162.6 cm (5' 4 ) 03/20/2022 11:08 AM GARLAND MAKER Body Mass Index 24.03 03/20/2022 11:08 AM GARLAND MAKER documented in this encounter Progress Notes * Luz Lewis MD - 03/20/2022 11:15 AM CST Colorectal Surgery Consultation Consult [...] pain. She follows with Dr. Roxana coronel. INTERVAL HISTORY: 03/20/2022 Patient underwent EUA with anoscopy, acetic acid staining, biopsy of perianal lesions x. At that time, she was noted to have small perianal hyperkeratotic lesion left laterally and small lesion with leukoplakia right laterally and right anteriorly. 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 She is here today for survei llance. Past Medical History: Diagnosis Date Arthritis Hypertension Personal history of other diseases of the circulatory system History of hypertension - (Added by TW Conv) Past Surgical History: Procedure Laterality Date OVARY SURGERY 1994 Cyst x2 removed from overies [place] BREAST SURGERY PROCEDURE UNLISTED Right 1978 Cyst [...] tablet nicotine (NICODERM CQ) 21 mg omega 8-qcs-kvc-fish oil 100-160-1,000 mg capsule polyethylene glycol (MIRALAX) 17 gram packet Allergies Allergen Reactions Omeprazole Rash Amoxicillin Diarrhea Motrin [Ibuprofen] Other (See comments) Patient takes Methotrexate and advised not to take. Social History Tobacco Use Smoking status: Former Smoker Packs/day: 0.25 Years: 50.00 Pack years: 12.50 Start date: 1968 Quit date: 2014 Years since quittin.2 Smokeless tobacco: Never Used [...] Negative Pulmonary: Negative Gastrointestinal: Negative Genitourinary: Negative Director Of Services/lymphatic: Negative Immunologic: Negative Musculoskeletal: Negative Neurologic: Negative Integumentary: Negative Psychiatric: Negative Endocrine: Negative Physical exam: Vitals: Vitals Ht 162.6 cm (5' 4 ) Wt 63.5 kg (140 lb) BMI 24.03 kg/m?? Afebrile, vital signs stable General Exam: No acute distress. Well developed. HEENT: Normocephalic. No scleral icterus. Neck: Supple without lymphadenopathy Cardiovascular: Regular rhythm and rate Chest: Unlabored breathing Abdomen: Soft, nontender, nondistended. Anoperineal Exam: Normal external genitalia and anus. Mild small nonthrombosed external hemorrhoids. Some mild leukoplakia posteriorly at the anal verge and small 2 mm hyperpigmented lesion left laterally. Digital Rectal Exam: No masses. Normal [...] x33/ and 11/2021 by me. Path returned AINII-AINIII and patient has elected to continue with surveillance. She does have a couple of small lesions that I think require treatment that are not amenable to excision in [...] locally after she heals from this procedure. She wishes to wait until after the holidays to have this done and will see me back prior. Luz Lewis MD [facility] Colorectal Surgery 03/20/22 11:19 AM This note was transcribed using [employer] Speech Recognition software. As a result, there may be unintended grammar and spelling errors. Every attempt is made to have correct dictation. If there are any questions or major errors, please contact me. 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
--- OUTSIDE RECORDS SUMMARY | 2024-05-03 02:51 | XMS_ITS | Encounter Summary ---
Author Organization [facility] Healthcare Address [address] [place] [address] Care Team Providers Care Psychology Fellow Name Role Phone Terry Bender DO Primary Care Provider [phone] Wilmer Taylor MD Unavailable Jeffrey Koch MD Unavailable [phone] Reason for Visit * Auth/Cert Specialty Diagnoses / Procedures Referred By Micah t Referred To Contact Diagnoses History of lobectomy of lung History of lobectomy of lung [Z90.2] Procedures SD THORACOSCOPY SURG LOBECTOMY NA Referral ID Status Reason Start Date Expiration Date Visits Re quested Visits Authorized [id number] 1 1 Encounter Details Date Type Department Care Team (Latest Contact Info) Description 09/12/2021 8:15 AM CDT - 09/14/2021 12:07 PM CDT Hospital Encounter [facility] [address] [place] [address] Ranjan Cazares MD [address] [facility] [id number] [place] [address] History of lobectomy of lung Discharge Disposition: Discharge to home or self [...] on file Legal Sex Female 10:10 AM CLINICAL PRACTITIONER Gender Identity Not on file Sexual Orientation Not on file documented as of this encounter Last Filed Vital Signs Vital Sign Reading Time Taken Comments Blood Pressure 106/57 09/14/2021 9:13 AM CDT Pulse 63 09/14/2021 9:23 AM CDT Temperature 36.7 ??C (98.1 ??F) 09/14/2021 9:00 AM CD T Respiratory Rate 15 09/14/2021 9:23 AM CDT Oxygen Saturation 98% 09/14/2021 9:23 AM CDT Inhaled Oxygen Concentration - - Weight 59.9 kg (132 lb) 09/12/2021 5:10 PM CDT Height 160 cm (5' 3 ) 09/12/2021 5:10 PM CDT Body Mass Index 23.38 09/12/2021 5:10 PM CDT documented in this encounter Discharge Summaries * Maribel Walker NP - 09/14/2021 10:17 AM CDT Inpatient Discharge Summary BRIEF OVERVIEW Admitting Provider: Ranjan Cazares MD Discharge Provider: Ranjan Cazares MD Primary Care Physician at Discharge: Terry Bender DO [phone] Admission Date: 09/12/2021 Discharge Date: 09/14/2021 Admission Location: [facility] Problems/Diagnoses: Active Problems: Hypertension Malignant neoplasm of lung (CMS/HCC) (HCC) History of lobectomy of lung Bronchogenic lung cancer, right (HCC) COPD (chronic obstructive pulmonary disease) (CMS/HCC) (HCC) Resolved Problems: No resolved hospital problems. DETAILS OF HOSPITAL STAY Presenting Problem/History of Present Illness: Darrion Guillory is a 71 y.o. female who initially presented with some jaw pain. She had a neck CT which identified a pulmonary nodule that was followed up on. She is a former smoker who quit in 2016 with a 40 pack year [...] hemoptysis, chest pain, headaches or weight loss. Chest CT scan from August 11 it was a 1.4 cm right upper lobe pulmonary nodule. She has some calcified hilar lymph node but no suspicious hilar or mediastinal lymphadenopathy. Pulmonary function tests from today show an FEV1 of 66% predicted and a diffusing capacity of 48% predicted. 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 Her recent laboratory tests show an albumin of 4.1, normal liver function and good renal function with a creatinine of 1.1. Hospital Course: Patient underwent a robotic assisted right upper lobectomy, mediastinal lymph node dissection and intercostal nerve block on 09/12/[address] Cazares. Her chest tube was removed on POD1. Post pull CXR shows right apical PNX. Repeat imaging shows a stable PNX. She remained on room air. PT evaluated patient and recommended home with family. Patient to go home with daughter. On the day of discharge, patient was in agreement to DC home. She was tolerating PO diet with return of bowel function, pain was managed on POPM, she was ambulating with minimal assistance and surgical incisions were well approximated and healing. Active Issues Requiring Follow-up: path Test Results Pending at Discharge: Pending Labs Order Current Status Surgical pathology In process Operative Procedures Performed: Procedure(s): XI ROBOTIC LOBECTOMY Discharge Details Physical Exam at Discharge: Discharge Condition: good Pulse: 63 Resp: 15 BP: 106/57 Temp: 36.7 ??C (98.1 ??F) Weight: 59.9 kg (132 lb) Pertinent Exam Findings at Discharge: right VATS incisions- open to air and closed with dermabond. Right chest tube site with clean and dry dressing in place Discharge Disposition: Code Status at Discharge: Full Discharge Instructions: See AVS Discharge Medications: Current Medications TAKE these medications acetaminophen 500 mg tablet Take 2 tablets (1,000 mg total) by mouth every 6 (six) hours as needed for pain Commonly known as: TYLENOL amLODIPine 10 mg tablet Take 1 tablet (10 mg total) by mouth daily after lunch Monitor BP at home and f/u with primary care doctor for medication management. For: high blood pressure Commonly known as: NORVASC ascorbic acid 500 mg tablet,chewable Take 500 mg by mouth daily after dinner Supplement For: inadequate vitamin C Commonly known as: VITAMIN C aspirin 81 mg enteric coated tablet Take 81 mg by mouth daily after lunch For: prevention of thrombosis budesonide-formoteroL 160-4.5 mcg/actuation inhaler Inhale 2 puffs 2 (two) times a day For: bronchospasm prevention with COPD Commonly known as: SYMBICORT calcium carbonate-vitamin D3 1,500 mg (600mg elemental) -800 unit per tablet Take 2 tablets by mouth daily after lunch For: low amount of calcium in the blood famotidine 20 mg tablet Take 20 mg by mouth every morning For: gastroesophageal reflux disease Commonly known as: PEPCID folic acid 1 mg tablet Take 1 tablet (1 mg total) by mouth daily after lunch For: inadequate folic acid Commonly known as: FOLVITE losartan 25 mg tablet Take 1 tablet (25 mg total) by mouth daily after lunch Monitor BP at home and f/u with primary care doctor for medication management. For: high blood pressure Commonly known as: COZAAR methocarbamoL 750 mg tablet Take 1 tablet (750 mg total) by mouth 4 (four) times a day Commonly known as: ROBAXIN methotrexate 2.5 mg tablet Take 5 tablets (12.5 mg total) by mouth every 7 days Every Sunday For: rheumatoid arthritis nicotine [address] 1 patch on the skin daily For: stop smoking Commonly known as: NICODERM CQ omega 8-osi-gbu-fish oil 100-160-1,000 mg capsule Take 1 capsule by mouth daily after dinner For: high amount of triglyceride in the blood oxyCODONE 5 mg immediate release tablet Take 1 tablet (5 mg total) by mouth every 4 (four) hours as needed for pain For: pain Commonly known as: ROXICODONE polyethylene glycol 17 gram packet Take 1 packet (17 g total) by mouth daily For: constipation Commonly known as: MIRALAX Start taking on: September 15, 2021 Outpatient Follow-Up: Future Appointments Date Time Provider Department Center 09/21/2021 9:30 AM POST DISCHARGE, [facility] 09/27/2021 10:00 AM Ranjan Czaares MD THOR BW B2 [facility] 10/10/2021 1:45 PM Martina Elizabeth PA CREW MESS ATTENDANT WEB [facility] None 11/07/2021 11:00 AM Debbie, Luz Bruner MD SURB COLON PSA 12/05/2021 9:45 AM Sinan Schmidt MD OB ONC MB OB Cosigned by Ranjan Cazares MD at 09/15/2021 7:16 AM CDT documented in this encounter Discharge Instructions * Discharge Instructions* Maribel Walker NP - 09/14/2021 10:16 AM CDT Your blood pressure has been normal to low, off of blood pressure medications, while in the hospital. Please follow up with your primary care doctor as to when to restart these meds. Take you BP at home and keep a log of the readings. Seek immediate medical attention if: * You have a fever of 101.5 F degrees or higher. * You have nausea or vomiting that does not stop. * Your wound is red, swollen, draining, or hurts. * The In-Patient Nurse Practitioner office number is . * Call 911 or go to the nearest emergency room if you have chest pain, faint, or have a hard time breathing. * You can contact the In-Patient Nurse Practitioners if you have any other, non emergent questions or concerns regarding your discharge care or instructions. The office number is . Diet: Resume regular diet Wound Care Instructions: You may have a special skin glue called Dermabond over your wounds. This special glue will fall offby itself afer 7-10 days. Do not use antibacterial ointment, lotion or creams on your wounds. This may make the glue dissolve and open the wound. You may shower 48 hours after your chest tube removal. Remove chest tube dressings prior to shower.Use mild, unscented soap. Do not scrub or rub the site. Pat wounds dry. You can leave your chest tube site open to air; there is no need for dressing unless there is drainage. DO NOT take a bath or soak in water. Your sutures and/or red can be removed 14 days from the day of surgery by a home health nurse or your primary care doctor. These can also be removed at your follow up appointment. Additional Instructions: Try to take less narcotic pain medication each day, Eventually you will need to completely be off this medication. Do not drink alcohol or drive if taking narcotic pain medication. Continue to take you laxatives as prescribed while taking narcotic pain medication unless you startto have loose stools or diarrhea. Use Dulcolax suppositories, fleet enemas or Magnesium citrate if you have constipation. These are available over the counter. Follow the instructions on the packaging. Do not life objects over 10-15 pounds until your doctor says it's ok. This includes babies and pets. Do not lift, pull or strain when moving objects. It is very important to stay active. Keep you activity level up. Bathe and dress yourself every day. Continue to do you breathing exercises until you return to your normal activity level. Use you incentive spirometer as instructed by your nurse. It will keep your lungs open and prevent pneumonia. Exercise your arms several times a day. Raise your arms over you head and bring them to the front and sides. It is common to have pain for several months, but the pain should lessen after a few weeks. You mayfeel aching, stabbing, throbbing, tightness, pulling, sharp or shooting pain. The pain may be worsewhen you are active or cough. You may also have numbness in some parts of your chest, breast or sides. You can take Tylenol. Make sure the pain medication you were sent home with from the hospital does not contain Tylenol. If you were able to take Aleve, Motrin or Ibuprofen prior to surgery you can also take this post-operatively. You can also try ice pack or heat on your incisions. Salonpas patches (similar to the lidocaine patches used in the hospital) are helpful and are available over the counter Outpatient Follow-Up: You will need to arrive 30 minutes prior to you appointment time for a chest x- ray. It is very important this x-ray is performed prior to your appointment, as this will determine the plan of your care. Future Appointments Date Time Provider Department Center 10/10/2021 1:45 PM Martina Elizabeth PA CREW MESS ATTENDANT WEB [facility] None 11/07/2021 11:00 AM Luz Lewis MD SURB COLON PSA 12/05/2021 9:45 AM Sinan Schmidt MD OB ONC MB OB documented in this encounter Medications at Time [...] total) by mouth every morning 02/26/2021 omega 1-hxh-rln-fish oil 100-160-1,000 mg capsuleIndicatio ns:hypertriglyce ridemia Take [...] 09/14/2021 2 documented as of this encounter Ordered Prescriptions Prescription Sig Dispense Quantity Refills Last Filled Start Date End Date amLODIPine (NORVASC) 10 mg tabletIndications: hypertension Take 1 tablet (10 mg total) by mouth daily after lunch Monitor BP at home and f/u with primary care doctor for medication management. 09/14/2021 polyethylene glycol (MIRALAX) 17 gram packetIndications: constipation Take 1 packet (17 g total) by mouth daily 09/15/2021 methocarbamoL (ROBAXIN) 750 mg tablet Take 1 tablet (750 mg total) by mouth 4 (four) times a day 28 tablet 09/14/2021 3 losartan (COZAAR) 25 mg tabletIndications: hypertension Take 1 tablet (25 mg total) by mouth daily after lunch Monitor BP at home and f/u with primary care doctor for medication management. 09/14/2021 3 oxyCODONE (ROXICODONE) 5 mg immediate release tabletIndications: Pain Take 1 tablet (5 mg total) by mouth every 4 (four) hours as needed for pain 20 tablet 09/14/2021 2 documented in this encounter Discharge Disposition Disposition Code Departure Means Destination Discharge to home or self care documented in this encounter Progress Notes * Akosua Brar RN - 09/14/2021 10:13 AM CDT 09/13/21 104 Discharge Summary Chart reviewed For Medical Necessity Does patient have a planned readmission to hospital planned? No Discharge Disposition Home Equipment/Provider Needs No Home Needs Identified Discharge Additional Assistance Does the patient need discharge transport arranged? No Post Discharge Care Provider Post Discharge Care Plan Next level of care provider has access to complete EMR Patient to d/c to home today. No home needs identified. Patient has family for home support and transportation. Patient to have meds filled by mobile pharmacy. Nurse to instruct on d/c orders. * Akosua Brar RN - 09/13/2021 10:40 AM CDT CM Initial Assessment Interview Note Information Obtained From: Patient (09/13/21 104) Admission Source: Home Impression: Xi robotic lobectomy RUL lobectomy and mediastinal lymph node dissection 09/12 Plan Includes: dc chest tube and melissa with post void check by 1500, pain control, assess for home care needs, safe discharge when medically stable Primary Source of Transportation: Does the patient need discharge transport arranged?: No (09/13/21 1040) Health Insurance Coverage: [employer] Prescription Coverage: yes Pharmacy: [facility] Primary Care Provider: Terry Bender DO Prior to Admission: Primary Caregiver: Self Support System: Children Support system contact info (name, phone, availablity): Pauline Lozano ([facility]) [phone] Home Care Services: No Durable Medical Equipment: None Living Arrangements: Alone Type of Residence: Private residence Steps in home? : Yes, Outside of home Number of steps outside:: 3 steps (09/13/21 1040) Potential discharge needs include: Home Health: Other (Comment) (No home care needs identified at this time.) (09/13/21 1040) Dialysis: Behavioral Health Services: Behavioral Health Services: No (09/13/211039) Patient expects to be Discharged to: Private residence, (09/13/21 104) Additional Information: Patient states she lives alone but will be going to her daughter, Pauline's home at discharge. Pauline's address is [address] [place] [address] and number is [phone]. Pauline will be assisting the patient at home as well as providing her discharge transportation. Patient declined mobile pharmacy at discharge. Patient's Identified Problem/Goal Problem: Ensure acute medical needs are met and that patient has a safe discharge plan. Goal: Secure a discharge plan that patient/family are agreeable with and ensure patient has continuum of care. Case management will follow for discharge planning and send referrals as needed. Goals include: To assure continuity of care, To maximize coping skills, To assure patient is in a safe environment and To assure access to community resources. Plan includes: 1. Collaboration with patient, MD, direct care nurse, Roll Cleaner, Nurse Coordinator and other members of the health care team to assure needed interventions completed. 2. Return patient to optimal level of self-care post discharge. 3. Ceo & Founder will follow for Discharge Planning - interventions as needed 4. Anticipated level of care at discharge 5. Planned Discharge Disposition Based on a comprehensive family assessment, assistance with instrumental activities of daily livingafter discharge will be provided by the patient and her daughter, Pauline. Through the course of our work I determined that the patient and her daughter possess the skill andability to provide and monitor the care of the patient when she returns home. The patient and her daughter have the capacity to provide/monitor/arrange for the care of the patient. Finally, we determined that the patient and her daughter have the knowledge of available resources and that combining them with their existing resources will suffice to sustain and care for the patient when she returnshome. The treatment team is aware of this information. All are in agreement with the aftercare plan. Akosua Brar RN * Maya Reevesney, PT - 09/13/2021 8:25 AM CDT Physical Therapy Physical Therapy Initial Assessment NOTE: This is a summary note for the karimi assessments completed during the evaluation session. For full details, review chart review for all flowsheets documented on by this physical therapist on thisdate. Vital signs documented in vital signs flowsheet. Assessment Assessment Prognosis: Good Problem List: Gait deviations, Decreased strength, Decreased endurance, Impaired balance, Decreasedmobility, Pain Problem List Comments: Pt's RATS RUL lobectomy results in above listed activity deficits and impairments which prevent full participation in home and community mobility Plan Plan Plan : Plan of care initiated, If this is the last note, consider this the discharge summary PT Recommendation and Plan Recommendation/Plan PT Recommendation/Plan: Home with family, Home with 24 hour supervision PT Frequency: 3-5x/wk Treatment/Interventions: Balance Training, Bed mobility, Endurance training, Functional activity, Functional transfer training, Gait training, Neuromuscular re-education, Strengthening, Therapeutic activity, Therapeutic exercise, Transfer training PT - Next Appointment: 09/14/21 PT Evaluation Complete: Yes General Information General Chart Reviewed: Yes Session Type: Evaluation PT Received On: 09/13/21 Safe Environment: Arm Band Checked, Call Light within Reach, Notified RN, Patient found in Supine, Overbed Table within Reach (Pt. left seated in recliner with call light in reach) Subjective: Agreeable to Therapy Family/Caregiver Present: No Prior Function Prior Function Level of Kleberg: Independent functional transfers, Independent with ambulation Lives With: Alone Receives Help From: Family (Will be discharging to daughter's home. Daughter can provide FT assistance) Fall within the last 6 months: No Prior Function Comments: Pt. reports that she was independent with all functional mobility at baseline. Home Living Home Living Type of Home: House Home Layout: One level Home Access: Level entry Home Mobility Equipment: Wheeled walker, Single point cane Additional Comments: Pt. reports no use of AD at baseline. Precautions Precautions Precautions: Fall risk Pain Pain Assessment Pain Assessment: 0-10 Pain Score: 6 Pain Location: Shoulder Pain Orientation: Right Cognition Cognition Arousal/Alertness: Alert, Appropriate responses to stimuli Orientation : Oriented X4 (person, place, time, situation) Following Commands: Follows all commands and directions without difficulty Compliance/Behavior: Easy to engage 6 Clicks Basic Mobility - 6 Click How much difficulty does the patient have: Turning over in bed: A little How much difficulty does the patient currently have: Sitting down and standing up from a chair witharms?: A little How much difficulty does the patient have: Moving from lying on back to sitting on the side of the bed?: A little How much difficulty does the patient have: Moving to and from a bed to a chair including wheelchair?: A little How much help does the patient currently need: Walk in hospital room?: A little How much help from another person does the patient currently need: Climbing 3-5 steps with a railing?: A little Total 6 Click Score (range 6-24): 18 Score Interpretation: 18 Bed Mobility Bed Mobility Bed Mobility: Yes Bed Mobility 1 Bed Mobility From 1: Supine Bed Mobility Type 1: To Bed Mobility to 1: Edge of bed Level of Assistance 1: Contact Guard Assist Bed Mobility Comments 1: CGA for balance/safety. Verbal cues for sequencing of task. Bed Mobility 2 Bed Mobility From 2: Edge of bed Bed Mobility Type 2: To Bed Mobility to 2: Supine Level of Assistance 2: Standby Assist Bed Mobility Comments 2: SBA for safety Transfers Transfers Transfer: Yes Transfer 1 Transfer From 1: Sit Transfer Type 1: To and from Transfer to 1: Stand Technique 1: Sit to stand, Stand to sit Transfer Device 1: Wheeled walker Transfer Level of Assistance 1: Standby Assist Trials/Comments 1: SBA for balance/safety. Use of bilateral UEs for force production. Balance Static Sitting Balance Static Sitting-Balance Support: Feet supported Static Sitting-Sitting Surface: Bed Static Sitting-Level of Assistance: Close supervision Static Sitting-Comment/# of Minutes: safety Static Standing Balance Static Standing-Balance Support: Bilateral upper extremity supported (on w/w) Static Standing-Standing Surface: Floor Static Standing-Level of Assistance: Close supervision Static Standing-Comment/# of Minutes: safety Ambulation Ambulation Ambulation: Yes Ambulation 1 Distance (ft) 1: 80 Surface 1: Level tile Device 1: Wheeled walker Assistance 1: Standby Assist Gait: Requires assist with 1: Maintaining balance Gait: Requires verbal cues to 1: Pace activity Quality of Gait 1: decreased marilu, decreased step length, slight forward flexed posture. Ambulation Comments 1: Ambulation distance limited by pain. Stairs Stairs Stairs: No Curbs RLE Assessment RLE Assessment RLE Assessment: Within Functional Limits LLE Assessment LLE Assessment LLE Assessment: Within Functional Limits Equipment Used Equipment Use Equipment Use Comments: No gait belt used Other Comments PT Goals Multi-Disciplinary Problems (from Physical Therapy) Active Problems Problem: Mobility Start Date: 09/13/21 Goal Start Date Expected End Date End Date STG - Patient will ambulate 09/13/21 09/27/21 -- Goal Details: 200', AAD, supervision Problem: Transfers Start Date: 09/13/21 Goal Start Date Expected End Date End Date STG - Patient to transfer to and from sit to supine 09/13/21 09/27/21 -- Goal Details: Supervision Goal Start Date Expected End Date End Date STG - Patient will transfer sit to and from stand 09/13/21 09/27/21 -- Goal Details: Supervision Problem: PT Misc Start Date: 09/13/21 Goal Start Date Expected End Date End Date PT LTG - Misc 1 09/13/21 10/11/21 -- Goal Details: Pt. Will be independent with all functional mobility * Maribel Walker NP - 09/13/2021 7:11 AM CDT Thoracic Surgery Daily Progress Note Admit: 09/12/2021 8:15 AM Date: September 13, 2021 Length of Stay: 1 Attending: Ranjan Cazares,* POD:1 Day Post-Op Procedure(s): XI ROBOTIC LOBECTOMY Subjective History: Darrion Guillory is a 71F with SCC of RUL 09/12: RATS RUL lobectomy PMHx: Home meds: Norvasc, ASA 81, Symbicort, Pepcid, cozaar, methotrexate (wednesdays) Edited by: Maribel Walker NP at 09/13/2021 0710 Interval History: Mrs. Guillory did not have any acute events overnight. She states she is sore, butpain is tolerable. She denies nausea, vomiting or SOB. - wean O2 - DC chest tube - DC melissa cath - PT to see Objective Medications: Current Facility-Administered Medications: ??? acetaminophen (TYLENOL) tablet 1,000 mg, 1,000 mg, oral, Q6H CHENG, 1,000 mg at 09/13/21 0508 OR [DISCONTINUED] acetaminophen (TYLENOL) 32 mg/mL oral solution 1,000 mg, 1,000 mg, feeding tube, Q6H CHENG OR [DISCONTINUED] acetaminophen (TYLENOL) suppository 650 mg, 650 mg, rectal, Q6H CHENG, Grisel Washburn MD ??? aspirin enteric coated tablet 81 mg, 81 mg, oral, After lunch, Grisel Washburn MD ??? enoxaparin (LOVENOX) syringe 40 mg, 40 mg, subcutaneous, Daily-2100, Grisel Washburn MD, 40 mg at 09/12/212021 ??? famotidine (PEPCID) tablet 20 mg, 20 mg, oral, QAM, Grisel Washburn MD ??? fluticasone furoate-vilanteroL (BREO ELLIPTA) 100-25 mcg/dose inhaler 1 puff, 1 puff, inhalation, Daily (RT), Grisel Washburn MD ??? gabapentin (NEURONTIN) capsule 100 mg, 100 mg, oral, TID, Grisel Washburn MD, 100 mg at09/12/211741 ??? methocarbamoL (ROBAXIN) tablet 750 mg, 750 mg, oral, QID, Grisel Washburn MD, 750 mg at09/12/211741 ??? ondansetron (ZOFRAN) injection 8 mg, 8 mg, intravenous, Q6H PRN, Grisel Washburn MD, 8 mg at 09/12/212022 ??? oxyCODONE (ROXICODONE) tablet 5 mg, 5 mg, oral, Q4H PRN, Grisel Washburn MD, 5 mg at 09/13/212 ??? polyethylene glycol (MIRALAX) packet 17 g, 17 g, oral, Daily, Maribel Walker, GWENDOLYN ??? senna (SENOKOT) tablet 1 tablet, 1 tablet, oral, BID, 1 tablet at 09/12/212021 OR [DISCONTINUED] senna 1.76 mg/mL syrup 8.8 mg, 8.8 mg, feeding tube, BID, Grisel Washburn MD ??? sodium chloride 0.9% flush 0.5-20 mL, 0.5-20 mL, intra-catheter, Q8H CHENG, Grisel Washburn MD, 10 mL at 09/13/21 0508 ??? sodium chloride 0.9% flush 0.5-20 mL, 0.5-20 mL, intra-catheter, PRN, Grisel Washburn MD Diet: Dietary Orders (From admission, onward) Start Ordered 09/12/211611 Adult Diet Clear Liquid Diet effective now Question: ([facility]) Diet type Answer: Clear Liquid 09/12/21 1611 Is&Os: I/O last 2 completed shifts: In: 1200 [I.V.:1200] Out: 1779 [Urine:1510; Chest Tube:269] No intake/output data recorded. Physical Exam: 24hr Min/Max: Temp Min: 36 ??C (96.8 ??F) Max: 36.8 ??C (98.2 ??F) Pulse Min: 54 Max: 82 BP Min: 91/47 Max: 134/55 Resp Min: 7 Max: 29 SpO2 Min: 94 % Max: 100 % Vitals: 09/13/21 0330 BP: Pulse: Resp: Temp: 36.4 ??C (97.5 ??F) SpO2: Constitutional: alert and oriented x3 and no acute distress HEENT: Pupils equal, EOMs grossly normal, mucous membranes moist Respiratory: clear to auscultation bilaterally and respirations unlabored on 2L NC. Right chest tube to -20mmHg, no leak, thin SS drainage CV: RRR Abdomen: soft, non-distended : melissa cath Skin: warm, well perfused and extremities non-edematous Active and Removed Drain / Gastrostomy/Enterostomy / Chest tube Duration Chest Tube A Right Pleural -- days Urethral Catheter Non-latex <1 day Labs/Imaging: Recent Labs Lab Units 09/12/21 2150 WBC K/cumm 12.4* HEMOGLOBIN g/dL 10.3* HEMATOCRIT % 31.7* PLATELETS K/cumm 187 Recent Labs Lab Units 09/12/21 2150 SODIUM mmol/L 139 POTASSIUM PLASMA mmol/L 4.2 CHLORIDE mmol/L 106 CO2 mmol/L 27 BUN SERUM mg/dL 14 CREATININE mg/dL 0.87 GLUCOSE mg/dL 103 CALCIUM mg/dL 8.4* XR Chest 1 View - in ICU Result Date: 09/12/2021 Examination is compared to PET/CT dated 09/08/2021. Patient is status post right upper lobe lobectomy and mediastinal lymph node dissection with right thoracostomy tube in place. There is a small right apical and lateral pneumothorax. No left pneumothorax. There are diffuse emphysematous changes. Rig ht paratracheal/right hilar opacity compatible with postoperative change. Recommend attention on follow-up examination. No definite pleural effusion. Heart size is normal. Dictated by: Mario Mcclendon M.D. The radiology attending physician has personally reviewed this study, and had reviewed and/or edited this written report and agrees with it. Electronically signed by: Justin Moralez M.D. Assessment/Plan COPD (chronic obstructive pulmonary disease) ([facility] ([facility]) Assessment & Plan - cont inhalers - wean O2 as tolerated Malignant neoplasm of lung ([facility] ([facility]) Assessment & Plan RUL lobectomy and mediastinal lymph node dissection - remove chest tube today - remove melissa. Void check ~1500 - pain control dIVP and oral pain meds - ADAT - wean O2 as tolerated - DVT PPX - PT to eval and treat Hypertension Assessment & Plan - restart BP medications as BP tolerates Maribel Walker NP-C For patients or family members viewing this note through SlideMail programs: This note was written as a communication tool between healthcare providers and may contain technical language, terminology and abbreviations that is difficult to interpret without advanced medical training. If you have questions or concerns regarding what is written in this note, please request to speak with the primary medical team taking care of you or your family member or call your PCP for clarification. Please do not call the cell or pager numbers listed in this note, as the provider they are associated with may no longer be involved in your care. Cosigned by Ranjan Cazares MD at 09/14/2021 7:31 AM CDT * Katharine Robles NP - 09/12/2021 4:13 PM CDT POST-OP NOTE Subjective: Patient ID: Darrion Guillory is a 71 y.o. female that is S/P RATS lobectomy. She has a thoraguard in place, melissa to BSD bag. At present her pain is well controlled Allergies as of 09/01/2021 - Reviewed 09/01/2021 Allergen Reaction Noted ??? Omeprazole Rash ??? Amoxicillin Diarrhea 09/01/2021 Current Facility-Administered Medications: ??? acetaminophen (TYLENOL) tablet 1,000 mg, 1,000 mg, oral, Q6H CHENG OR [DISCONTINUED] acetaminophen (TYLENOL) 32 mg/mL oral solution 1,000 mg, 1,000 mg, feeding tube, Q6H CHENG OR [DISCONTINUED] acetaminophen (TYLENOL) suppository 650 mg, 650 mg, rectal, Q6H CHENG, Grisel Washburn MD ??? [START ON 09/13/2021] aspirin enteric coated tablet 81 mg, 81 mg, oral, After lunch, Grisle Washburn MD ??? enoxaparin (LOVENOX) syringe 40 mg, 40 mg, subcutaneous, Daily-2100, Grisel Washburn MD ??? [START ON 09/13/2021] famotidine (PEPCID) tablet 20 mg, 20 mg, oral, QAM, Grisel Washburn MD ??? fluticasone furoate-vilanteroL (BREO ELLIPTA) 100-25 mcg/dose inhaler 1 puff, 1 puff, inhalation, Daily (RT), Grisel Washburn MD ??? gabapentin (NEURONTIN) capsule 100 mg, 100 mg, oral, TID, Grisel Washburn MD ??? Lactated Ringer's (LR) infusion, 75 mL/hr, intravenous, Continuous, Grisel Washburn MD ??? methocarbamoL (ROBAXIN) tablet 750 mg, 750 mg, oral, QID, Grisel Washburn MD ??? ondansetron (ZOFRAN) injection 8 mg, 8 mg, intravenous, Q6H PRN, Grisel Washburn MD ??? oxyCODONE (ROXICODONE) tablet 5 mg, 5 mg, oral, Q4H PRN, Grisel Washburn MD ??? senna (SENOKOT) tablet 1 tablet, 1 tablet, oral, BID OR [DISCONTINUED] senna 1.76 mg/mL syrup 8.8 mg, 8.8 mg, feeding tube, BID, Grisel Washburn MD ??? sodium chloride 0.9% flush 0.5-20 mL, 0.5-20 mL, intra-catheter, Q8H CHENG, Grisel Washburn MD ??? sodium chloride 0.9% flush 0.5-20 mL, 0.5-20 mL, intra-catheter, PRN, Grisel Washburn MD ??? sodium chloride 0.9% solution 1,000 mL, 1,000 mL, intra-catheter, Continuous, Grisel Washburn MD Past Medical History: Diagnosis Date ??? Arthritis ??? Hypertension ??? Personal history of other diseases of the circulatory system History of hypertension - (Added by TW Ling) Past Surgical History: Procedure Laterality Date ??? OVARY SURGERY 1994 Cyst x2 removed from overies ??? SD BREAST SURGERY PROCEDURE UNLISTED Right 1978 Cyst removed from R breast ??? RHINOPLASTY 1989 Deviated septum ??? VULVA SURGERY 03/28/2012 HAWA III excision ??? VULVA SURGERY 03/04/2013 HAWA III excision ??? VULVA SURGERY 11/10/2018 HAWA III excision ??? VULVA SURGERY 04/08/2019 HAWA III excision Objective: Vitals: 09/12/21 1600 BP: Pulse: Resp: Temp: 36.6 ??C (97.8 ??F) SpO2: Physical Exam General: In no acute distress, resting comfortably. Pleasant, cooperative with exam. HEENT: Mucous membranes dry. Neck: Supple, with no lymphadenopathy. CV: Regular rate and rhythm. No murmurs/gallops/rubs. Pulm: Unlabored breathing on room air. Lungs clear to auscultation bilaterally. Abdomen: Abdomen soft, nontender, nondistended without rebound or guarding. LE: Warm, well perfused. Neuro: AAOx4. Grossly intact without obvious deficits. Assessment: COPD (chronic obstructive pulmonary disease) (CMS/HCC) ([facility]) Assessment & Plan - cont inhalers - wean O2 as tolerated Malignant neoplasm of lung (CMS/HCC) ([facility]) Assessment & Plan RUL lobectomy and mediastinal lymph node dissection - chest tube to thoraguard - no air leak noted - CT suction - monitor I/O - pain control dIVP and oral pain meds - ADAT - wean O2 as tolerated Hypertension Assessment & Plan - restart BP medications as BP tolerates [facility]- Thoracic [facility] For patients or family members viewing this note through SlideMail programs: This note was written as a communication tool between healthcare providers and may contain technical language, terminology and abbreviations that is difficult to interpret without advanced medical training. If you have questions or concerns regarding what is written in this note, please request to speak with the primary medical team taking care of you or your family member or call your PCP for clarification. Please do not call the cell or pager numbers listed in this note, as the provider they are associated with may no longer be involved in your care Cosigned by Rajnan Cazares MD at 09/12/2021 4:46 PM CDT documented in this encounter H&P Notes * Ranjan Cazares MD - 09/12/2021 9:23 AM CDT Patient seen and examined. History and physical updated. Proceed with lobectomy Source Note - Ranjan Cazares MD - 09/01/2021 1:30 PM CDT Images from the original note were not included. Ranjan Cazares M.D., M.P.H. director title [facility] - voice - fax [facility] Thoracic Surgery Consult / History and Physical 09/02/2021 Terry Bender DO Judy F Buehler [address] Bender: Thank you for asking me to see Darrion F Pastora in consultation for a right upper lobe [...] little more short of breath postoperative a particularly when walking up a hill or doing [...] much. Yours sincerely, Ranjan Cazares MD, MPH Backing In Machine Tender completed by using M*Modal Fluency Direct speaking software, therefore, transcriptionvariances may occur. * Ranjan Cazares MD - 09/12/2021 9:17 AM CDT Oh patient seen and examined. History and physical updated. Proceed with lobectomy. Source Note - Ranjan Cazares MD - 09/01/2021 1:30 PM CDT Images from the original note were not included. Ranjan Cazares M.D., M.P.H. director title [facility] - voice - fax [facility] Thoracic Surgery Consult / History and Physical 09/02/2021 Terry Bender DO Judy F Buehler [address] Bender: Thank you for asking me to see Darrion Babar Pastora in consultation for a right upper lobe [...] little more short of breath postoperative a particularly when walking up a hill or doing [...] much. Yours sincerely, Ranjan Cazares MD, MPH Backing In Machine Tender completed by using M*Modal Fluency Direct speaking software, therefore, transcriptionvariances may occur. documented in this encounter Procedure Notes * Maribel Walker NP - 09/13/2021 9:18 AM CDT Procedures Chest Tube Removal Procedure Note Darrion Guilloyr 1950 09/13/2021 9:18 AM Procedure Details The correct patient's clinical information, tests, and/or imaging results relevant to chest tube removal were reviewed prior to procedure. Chest tube removal was discussed with the Supervising MD. Chest tube removal explained to patient. Verbalized understanding. Soap and water hand washing or use of alcohol-based waterless hand cleanser was performed before and after the procedure. Patient was positioned with left side down and HOB as flat as tolerated. Patient identification was verified. Chest tube Removed: right pleural chest tube Chest tube(s) Remaining in place: none Site Sutures Present: yes; intact Complications: None; patient tolerated the procedure well. Condition: stable Recommendations Keep occlusive dressing in place with Vaseline gauze and 4x4 for 24 hours. OK for nursing to change dressing if saturated. After 24 hours, dressing may be removed and patient may shower. Site sutures can be removed in 7-10 days by any MD, PUBLIC WORKS COMMISSIONER, hydro electric station operator. Maribel Wlaker NP Thoracic Surgery [phone] documented in this encounter Miscellaneous Notes * Plan of Care - Fany Lovell, ROSAURA - 09/14/2021 8:17 AM CDT Pt found on Room Air SP02 82. Placed pt on 2L NC. Sp02 currently 91. Breath sounds Dim t/o. Pt received daily [place] R[place]. Will continue to monitor pt. * Plan of Care - Gaeln Sharma RN - 09/14/2021 7:50 AM CDT Problem: Health Behavior: Goal: Understanding of discharge needs will improve Outcome: Progressing Problem: Lack of Knowledge: Goal: Ability to develop a pain control plan will improve Outcome: Progressing Goal: Ability to identify pain intensity on a pain scale and rate it consistently will improve Outcome: Progressing Goal: Ability to notify healthcare provider of pain before it becomes unmanageable or unbearable will improve Outcome: Progressing Problem: Medication: Goal: Satisfaction with pain management regimen will improve Outcome: Progressing Problem: Sensory: Goal: Ability to identify factors that increase the pain will improve Outcome: Progressing Goal: Pain level will decrease Outcome: Progressing Problem: Lack of Knowledge: Goal: Ability to state ways to decrease the risk of falls will improve Outcome: Progressing Problem: Safety: Goal: Will remain free from falls Outcome: Progressing Goal: Will remain free from injury from falls Outcome: Progressing Goal: Will remain free from falls and injury in home environment Outcome: Progressing Problem: Activity: Goal: Ability to avoid complications of mobility impairment will improve Outcome: Progressing Problem: Lack of Knowledge: Goal: Ability to demonstrate proper wound care will improve Outcome: Progressing Problem: Respiratory: Goal: Ability to maintain a clear airway will improve Outcome: Progressing Problem: Safety: Goal: Ability to chew and swallow food without choking will improve Outcome: Progressing Goal: Ability to demonstrate an effective cough will improve Outcome: Progressing Goals: Clinical Goals for the Shift: Pulmonary Hygiene, OOB as tolerated, Pain Mgmt Summary: * Plan of Care - Ranjan Price RN - 09/14/2021 1:31 AM CDT Goals: Clinical Goals for the Shift: VSS, pain control, Is & Os Summary: pt. Up with one assist, Bmat yellow, unsteady gait per baseline. Urine clear and yellow, voids in hat in toilet. VSS. Reports no pain. Incisions clean dry and intact. Problem: Health Behavior: Goal: Understanding of discharge needs will improve Outcome: Progressing Problem: Lack of Knowledge: Goal: Ability to develop a pain control plan will improve Outcome: Progressing Goal: Ability to identify pain intensity on a pain scale and rate it consistently will improve Outcome: Progressing Goal: Ability to notify healthcare provider of pain before it becomes unmanageable or unbearable will improve Outcome: Progressing Problem: Medication: Goal: Satisfaction with pain management regimen will improve Outcome: Progressing Problem: Sensory: Goal: Ability to identify factors that increase the pain will improve Outcome: Progressing Goal: Pain level will decrease Outcome: Progressing Problem: Lack of Knowledge: Goal: Ability to state ways to decrease the risk of falls will improve Outcome: Progressing Problem: Safety: Goal: Will remain free from falls Outcome: Progressing Goal: Will remain free from injury from falls Outcome: Progressing Goal: Will remain free from falls and injury in home environment Outcome: Progressing Problem: Activity: Goal: Ability to avoid complications of mobility impairment will improve Outcome: Progressing Problem: Lack of Knowledge: Goal: Ability to demonstrate proper wound care will improve Outcome: Progressing Problem: Respiratory: Goal: Ability to maintain a clear airway will improve Outcome: Progressing Problem: Safety: Goal: Ability to chew and swallow food without choking will improve Outcome: Progressing Goal: Ability to demonstrate an effective cough will improve Outcome: Progressing * Plan of Care - Deangelo Oliveros RN - 09/13/2021 10:41 AM CDT Problem: Health Behavior: Goal: Understanding of discharge needs will improve 09/13/2021 1040 by Deangelo Oliveros RN Outcome: Progressing 09/13/2021 1039 by Deangelo Oliveros RN Outcome: Progressing Problem: Lack of Knowledge: Goal: Ability to develop a pain control plan will improve 09/13/2021 1040 by Deangelo Oliveros RN Outcome: Progressing 09/13/2021 1039 by Deangelo Oliveros RN Outcome: Progressing Goal: Ability to identify pain intensity on a pain scale and rate it consistently will improve 09/13/2021 1040 by Deangelo Oliveros RN Outcome: Progressing 09/13/2021 1039 by Deangelo Oliveros RN Outcome: Progressing Goal: Ability to notify healthcare provider of pain before it becomes unmanageable or unbearable will improve 09/13/2021 1040 by Deangelo Oliveros RN Outcome: Progressing 09/13/2021 1039 by Deangelo Oliveros RN Outcome: Progressing Problem: Medication: Goal: Satisfaction with pain management regimen will improve 09/13/2021 1040 by Deangelo Oliveros, RN Outcome: Progressing 09/13/2021 1039 by Deangelo Oliveros RN Outcome: Progressing Problem: Sensory: Goal: Ability to identify factors that increase the pain will improve 09/13/2021 1040 by Deangelo Oliveros, RN Outcome: Progressing 09/13/2021 1039 by Deangelo Oliveros, RN Outcome: Progressing Goal: Pain level will decrease 09/13/2021 1040 by Deangelo Oliveros, RN Outcome: Progressing 09/13/2021 1039 by Deangelo Oliveros, RN Outcome: Progressing Problem: Lack of Knowledge: Goal: Ability to state ways to decrease the risk of falls will improve 09/13/2021 1040 by Deangelo Oliveros, DIGNA Outcome: Progressing 09/13/2021 1039 by Deangelo Oliveros, RN Outcome: Progressing Problem: Safety: Goal: Will remain free from falls 09/13/2021 1040 by Deangelo Oliveros, RN Outcome: Progressing 09/13/2021 1039 by Deangelo Oliveros, RN Outcome: Progressing Goal: Will remain free from injury from falls 09/13/2021 1040 by Deangelo Oliveros, DIGNA Outcome: Progressing 09/13/2021 1039 by Deangelo Oliveros, RN Outcome: Progressing Goal: Will remain free from falls and injury in home environment 09/13/2021 1040 by Deangelo Oliveros, RN Outcome: Progressing 09/13/2021 1039 by Deangelo Oliveros, RN Outcome: Progressing Problem: Activity: Goal: Ability to avoid complications of mobility impairment will improve 09/13/2021 1040 by Deangelo Oliveros, RN Outcome: Progressing 09/13/2021 1039 by Deangelo Oliveros, DIGNA Outcome: Progressing Problem: Lack of Knowledge: Goal: Ability to demonstrate proper wound care will improve 09/13/2021 1040 by Deangelo Oliveros, RN Outcome: Progressing 09/13/2021 1039 by Deangelo Oliveros, RN Outcome: Progressing Problem: Respiratory: Goal: Ability to maintain a clear airway will improve 09/13/2021 1040 by Deangelo Oliveros RN Outcome: Progressing 09/13/2021 1039 by Deangelo Oliveros RN Outcome: Progressing Problem: Safety: Goal: Ability to chew and swallow food without choking will improve 09/13/2021 1040 by Deangelo Oliveros RN Outcome: Progressing 09/13/2021 1039 by Deangelo Oliveros RN Outcome: Progressing Goal: Ability to demonstrate an effective cough will improve 09/13/2021 1040 by Deangelo Oliveros RN Outcome: Progressing 09/13/2021 1039 by Deangelo Oliveros RN Outcome: Progressing Goals: Clinical Goals for the Shift: monitor pain/vitals, advance diet Summary: Melissa and chest tube were removed at 0900, patient walked to the nurses station, diet has been advanced to regular diet * Plan of Care - Nicola Goddard RN - 09/12/2021 7:38 PM CDT Problem: Health Behavior: Goal: Understanding of discharge needs will improve Outcome: Progressing Problem: Lack of Knowledge: Goal: Ability to develop a pain control plan will improve Outcome: Progressing Goal: Ability to identify pain intensity on a pain scale and rate it consistently will improve Outcome: Progressing Goal: Ability to notify healthcare provider of pain before it becomes unmanageable or unbearable will improve Outcome: Progressing Problem: Medication: Goal: Satisfaction with pain management regimen will improve Outcome: Progressing Problem: Sensory: Goal: Ability to identify factors that increase the pain will improve Outcome: Progressing Goal: Pain level will decrease Outcome: Progressing Goals: Summary: monitor vitals, I/O, pain * Plan of Care - Nicolasa Lantigua RN - 09/12/2021 6:45 PM CDT Goals: monitor BP, VS, I/O, and labs Problem: Health Behavior: Goal: Understanding of discharge needs will improve Outcome: Progressing Problem: Lack of Knowledge: Goal: Ability to develop a pain control plan will improve Outcome: Progressing Goal: Ability to identify pain intensity on a pain scale and rate it consistently will improve Outcome: Progressing Goal: Ability to notify healthcare provider of pain before it becomes unmanageable or unbearable will improve Outcome: Progressing Problem: Medication: Goal: Satisfaction with pain management regimen will improve Outcome: Progressing Problem: Sensory: Goal: Ability to identify factors that increase the pain will improve Outcome: Progressing Goal: Pain level will decrease Outcome: Progressing Summary: plan of care discussed with patient * Assessment & Plan Note - Katharine Robles NP - 09/12/2021 4:11 PM CDT Associated Problem(s): Hypertension - restart BP medications as BP tolerates * Assessment & Plan Note - Katharine Robles NP - 09/12/2021 4:10 PM CDT Associated Problem(s): COPD (chronic obstructive pulmonary disease) (HCC) - cont inhalers - wean O2 as tolerated * Assessment & Plan Note - Katharine Robles NP - 09/12/2021 4:08 PM CDT Associated Problem(s): Malignant neoplasm of upper lobe, right bronchus or lung (HCC) RUL lobectomy and mediastinal lymph node dissection - remove chest tube today - remove melissa. Void check ~1500 - pain control dIVP and oral pain meds - ADAT - wean O2 as tolerated - DVT PPX - PT to eval and treat * Op Note - Ranjan Cazares MD - 09/12/2021 10:37 AM CDT Ranjan Cazares MD, MPH SURGICAL TEAM: Surgeon(s) and Role: * Ranjan Cazares MD - Primary * Scott Vázquez MD - Resident - Assisting * Grisel Washburn MD - Fellow DATE OF SURGERY : 09/12/2021 PREOPERATIVE DIAGNOSIS: Right upper lobe non-small cell lung cancer POSTOPERATIVE DIAGNOSIS: Same PROCEDURE: 1. Robotic Assisted right upper Lobectomy 2. Mediastinal Lymph Node Dissection 3. Intercostal nerve block INDICATION FOR PROCEDURE: Darrion Guillory is a 71 y.o. female who presents with a biopsy-proven clinical stage I right upper lobe non-small cell lung cancer. She is being taken to the operating room for definitive resection and staging. ANESTHESIA: General Estimated Blood Loss: No blood loss documented. OPERATIVE DETAILS General anesthesia was induced. The patient was positioned prepped and draped for robotic assisted right upper lobectomy. A camera port was placed in the 8th intercostal space just anterior to the scapula. We had good lung isolation and then placed 3 additional robotic ports and an assistant attorney general port. We then docked the robot and I took control of the console. The tumor was visible in the right upperlobe and there was no evidence of any metastatic disease. She had some adhesions of the right upperlobe which were taken down with the bipolar cautery. I mobilized the inferior pulmonary ligament and dissected out level 9 lymph nodes. I then opened upthe posterior mediastinal pleura and dissected out some level 8 and 10 nodes. I then dissected out the station 7 subcarinal lymph node packet. I then dissected out the station 4R packet above the azygous vein. I opened up the mediastinal pleura and dissected out the pulmonary vein and a level 10 node. That was then divided with a a robotic vascular load of the stapler. I then dissected out the pulmonary artery branches using the bipolar cautery and dissected out several level 11, interlobar nodes. The pulmonary artery branches were divided with robotic vascular stapler loads. I then mobilized the bronchus and this was then divided with a green load of the robotic stapler. The fissures were completed with black loads of the robotic stapler. The specimen was then placed into a retrieval bag and removed via the anterior port. We had excellent hemostasis and had done a thorough lymph node dissection. We removed all of our sponges and did an intercostal nerve block in the 3rd through 9th spaces. I placed a 28 silastic chesttube to the posterior apex and the lung was re-expanded. We then undocked the robot and closed the incisions in standard fashion. I was present and helped perform the entire procedure. she was then extubated and brought to recovery in stable condition. * Brief Op Note - Grisel Washburn MD - 09/12/2021 10:37 AM CDT Operative Progress Note Surgical Team: Surgeon(s) and Role: * Ranjan Cazares MD - Primary * Scott Vázquez MD - Resident - Assisting * Grisel Washburn MD - Fellow Anesthesiologist: Fernanda Colunga MD Commercial Energy Auditor: Harley Palomo MD Medical Voucher Clerk: Jin Mckee RN; Sonya Chavez RN Scrub: Jay Adair RN; Mario Segura [facility]: Jo Segundo RN DATE OF SURGERY : 09/12/2021 Preoperative Diagnosis: Pre-op Diagnosis * History of lobectomy of lung [Z90.2] Postoperative Diagnosis: Post-op Diagnosis * History of lobectomy of lung [Z90.2] Procedure(s): Procedure(s) (LRB): XI ROBOTIC LOBECTOMY (Right) Operative Findings: RUL lobectomy and mediastinal lymph node dissection Estimated Blood Loss: 45cc Intraoperative Fluids: See anesthesia Specimens: ID Type Source Tests Collected by Time A : Lymph node, level 8 Tissue Lymph Node, Single excision SURGICAL PATHOLOGY Ranjan Cazares MD 09/12/2021 1102 B : Lymph node, level 9 Tissue Lymph Node, Single excision SURGICAL PATHOLOGY Ranjan Cazares MD 09/12/2021 1103 C : Lymph node, level 7 Tissue Lymph Node, Single excision SURGICAL PATHOLOGY Ranjan Cazares MD 09/12/2021 1106 D : Lymph node, level 4R Tissue Lymph Node, Single excision SURGICAL PATHOLOGY Ranjan Cazares MD 09/12/2021 1117 E : Lymph node, level 11 Tissue Lymph Node, Single excision SURGICAL PATHOLOGY Ranjan Cazares MD 09/12/2021 1133 F : Lymph node, level 11b Tissue Lymph Node, Single excision SURGICAL PATHOLOGY Ranjan Cazares MD 09/12/2021 1157 G : Lymph node, level 12 Tissue Lymph Node, Single excision SURGICAL PATHOLOGY Ranjan Cazares MD 09/12/2021 1157 H : Right upper lobe Tissue Lung, total / lobe / segmental, tumor SURGICAL PATHOLOGY Ranjan Cazares MD 09/12/2021 1222 Implants: Nothing was implanted during the procedure Blood/Blood Products Transfused: 0 mls Complications: None Condition on Discharge from the operating room was stable Grisel Washburn MD Date: 09/12/2021 Time: 12:37 PM Cosigned by Ranjan Cazares MD at 09/12/2021 4:39 PM CDT documented in this encounter Plan of Treatment Not on file documented as of this encounter Procedures Procedure Name Priority Date/Time Associated Diagnosis Comments XR CHEST PA LATERAL 2 VIEWS IP Routine 09/14/2021 7:56 AM CDT XR CHEST PA LATERAL 2 VIEWS IP Routine 09/13/2021 12:28 PM CDT XR CHEST 1 VIEW Timed 09/13/2021 4:48 AM CDT EGFR Timed 09/12/2021 9:50 PM CDT CBC WITHOUT DIFFERENTIAL Timed 09/12/2021 9:50 PM CDT BASIC METABOLIC PANEL Timed 09/12/2021 9:50 PM CDT XR CHEST 1 VIEW ED Urgent/IP Urgent 09/12/2021 2:02 PM CDT SURGICAL PATHOLOGY Routine 09/12/2021 11 :02 AM CDT History of lobectomy of lung XI ROBOTIC LOBECTOMY 09/12/2021 10:00 AM CDT History of lobectomy of lung documented in this encounter Results * XR [...] Electronically signed by: Leo Hamilton III, M.D. [facility] 09/14/2021 9:46 AM CDT EXAMINATION: XR CHEST [...] by: Leo Hamilton III, M.D. Maribel Walker PUBLIC WORKS COMMISSIONER IMG XR PROCEDURES Final Result * XR Chest Pa Lateral 2 Views (09/13/2021 12:28 PM CDT) Anatomical Region Laterality Modality Body, Chest N/A Computed Radiogr aphy 09/13/2021 1:58 PM CDT Impressions 09/13/2021 2:06 PM CDT The current study is compared with the prior radiograph dated ??09/13/2021 4:42 AM. Patient is status post right upper lobectomy and mediastinal lymph node dissection. There has been interval removal of a right-sided chest tube. There is a small right apical/lateral pneumothorax, increased compared with prior exam. No left pneumothorax. No new pulmonary consolidation. Improved aeration of the right upper lobe. Heart size and mediastinal contours are stable. Left calcified hilar lymph nodes are noted. Dictated by: Mario Mcclendon M.D. The radiology attending physician has personally reviewed this study, and had reviewed and/or edited this written report and agrees with it. Electronically signed by: Gabriele Deluna M.D. Narrative 09/13/2021 2:06 PM CDT EXAMINATION: 2 view chest radiograph Procedure Note Gabriele Deluna MD - 09/13/2021 EXAMINATION: 2 view chest radiograph IMPRESSION: The current study is compared with the prior radiograph dated 09/13/2021 4:42 AM. Patient is status post right upper lobectomy and mediastinal lymph node dissection. There has been interval removal of a right-sided chest tube. There is a small right apical/lateral pneumothorax, increased compared with prior exam. No left pneumothorax. No new pulmonary consolidation. Improved aeration of the right upper lobe. Heart size and mediastinal contours are stable. Left calcified hilar lymph nodes are noted. Dictated by: Mario Mcclendon M.D. The radiology attending physician has personally reviewed this study, and had reviewed and/or edited this written report and agrees with it. Electronically signed by: Gabriele Deluna M.D. Maribel Walker PUBLIC WORKS COMMISSIONER IMG XR PROCEDURES Final Result * XR Chest 1 View (09/13/2021 4:48 AM CDT) Anatomical Region Laterality Modality Body, Chest N/A Computed Radiogr aphy 09/13/2021 8:49 AM CDT Impressions 09/13/2021 8:53 AM CDT The current study is compared with the prior radiograph dated 09/12/2021 at 1342 hours. Patient is status post right upper lobectomy and mediastinal lymph node dissection with right apical chest tube in place. There is no pneumothorax. Possible small bilateral pleural effusions. Right paratracheal and hilar opacity compatible with postoperative changes. Heart size is normal. Dictated by: Norma Lino MD The radiology attending physician has personally reviewed this study, and had reviewed and/or edited this written report and agrees with it. Electronically signed by: Smiley Ingram M.D. Narrative 09/13/2021 8:53 AM CDT EXAMINATION: XR CHEST 1 VIEW Procedure Note Smiley Ingram MD - 09/13/2021 EXAMINATION: XR CHEST 1 VIEW IMPRESSION: The current study is compared with the prior radiograph dated 09/12/2021 at 1342 hours. Patient is status post right upper lobectomy and mediastinal lymph node dissection with right apical chest tube in place. There is no pneumothorax. Possible small bilateral pleural effusions. Right paratracheal and hilar opacity compatible with postoperative changes. Heart size is normal. Dictated by: Norma Lino MD The radiology attending physician has personally reviewed this study, and had reviewed and/or edited this written report and agrees with it. Electronically signed by: Smiley Ingram M.D. Ranjan Cazares MD IMG XR PROCEDURES Lupe l Result * (ABNORMAL) eGFR (09/12/2021 9:50 PM CDT) [facility] eGFR 70(L) 90 - 130 mL/min/1. 73 m2 [facility] Comment: Interpretive Data Reference Interval Normal ?>/= 90 mL/min/1.73m2 Mildly decreased* ? 60 - 89 mL/min/1.73m2 Mildly to moderately decreased ?45 - 59 mL/min/1.73m2 Moderately to severely decreased ??30 - 44 mL/min/1.73m2 Severely decreased ?15 - 29 mL/min/1.73m2 Kidney Failure ?< 15 ??mL/min/1.73m2 *Relative to young adult level Estimated glomerular filtration rate is determined by the 2020 CKD-EPI equation recommended by the National Kidney [employer] (A Unifying Approach to GFR Estimation: Recommendations of the NKF-ASK Task Force on Reassessing the Inclusion of Race in Diagnosing Kidney Disease, JASN 2020). The CKD-EPI equation should not be used for patients with unstable renal function and has not been validated in children and those over 70. Current interpretive data was last reviewed 2021. Blood 09/12/2021 9:50 PM CDT 09/12/2021 10:48 PM CDT Ranjan Cazares MD LAB BLOOD ORDERABLES F inal Result [facility] [place] [address] * (ABNORMAL) Basic metabolic panel (09/12/2021 9:50 PM CDT) Pathologist [facility] Sodium 139 135 - 145 mmol/L [facility] Potassium, pl 4.2 3.3 - 4.9 mmol/L [facility] Chloride 106 97 - 110 mmol/L [facility] CO2 27 22 - 32 mmol/L [facility] Anion gap 6 2 - 15 mmol/L [facility] BUN 14 8 - 25 mg/dL [facility] Creatinine 0.87 0.60 - 1.10 mg/dL [facility] Glucose 103 70 - 199 mg/dL [facility] Comment: Interpretive Data Fasting glucose >/= 126 mg/dl is diagnostic for diabetes. ?? Fasting is defined as no caloric intake for at least 8 hours. Fasting glucose between 100 mg/dl to 125 mg/dl is diagnostic of prediabetes. In a patient with classic symptoms of hyperglycemia or hyperglycemic crisis, a random glucose >/= 200 mg/dl is diagnostic for diabetes. In the absence of unequivocal hyperglycemia, results should be confirmed by repeat testing. The classification and Diagnosis of Diabetes Diabetes Care 2017;40 (Suppl. 1):S11. Current interpretive data was last revised 2017. Calcium 8.4(L) 8.5 - 10.3 mg/dL [facility] Blood 09/12/2021 9:50 PM CDT 09/12/2021 10:48 PM CDT us Ranjan Cazares MD LAB BLOOD ORDERABLES F inal Result [facility] [place] [address] * (ABNORMAL) CBC without differential (09/12/2021 9:50 PM CDT) Pathologist [facility] WBC 12.4(H) 3.8 - 9.9 K/cumm [facility] Hgb 10.3(L) 11.9 - 15.5 g/dL [facility] Hct 31.7(L) 35.6 - 45.5 % [facility] Plt 187 150 - 400 K/cumm [facility] MPV 10.3 9.1 - 12.3 fL [facility] RBC 3.07(L) 3.90 - 5.20 M/cumm [facility] MCV 103.3(H) 81.3 - 96.4 fL [facility] MCH 33.6(H) 27.1 - 33.3 pg [facility] MCHC 32.5 32.3 - 35.7 g/dL [facility] RDW CV 14.6 11.1 - 14.9 % [facility] RDW SD 55.1(H) 35.7 - 48.1 fL [facility] NRBC abs 0.00 0.00 - 0.01 K/cumm [facility] Blood 09/12/2021 9:50 PM CDT 09/12/2021 10:47 PM CDT us Ranjan Cazares MD LAB BLOOD ORDERABLES F inal Result [facility] [place] [address] * XR Chest 1 View - in ICU (09/12/2021 2:02 PM CDT) Anatomical Region Laterality Modality Body, Chest N/A Computed Radiogr aphy 09/12/2021 2:39 PM CDT Impressions 09/12/2021 5:14 PM CDT Examination is compared to PET/CT dated 09/08/2021. Patient is status post right upper lobe lobectomy and mediastinal lymph node dissection with right thoracostomy tube in place. There is a small right apical and lateral pneumothorax. No left pneumothorax. There are diffuse emphysematous changes. Right paratracheal/right hilar opacity compatible with postoperative change. Recommend attention on follow-up examination. No definite pleural effusion. Heart size is normal. Dictated by: Mario Mcclendon M.D. The radiology attending physician has personally reviewed this study, and had reviewed and/or edited this written report and agrees with it. Electronically signed by: Justin Moralez M.D. Narrative 09/12/2021 5:14 PM CDT EXAMINATION: 1 view chest radiograph Procedure Note Justin Moralez MD - 09/12/2021 EXAMINATION: 1 view chest radiograph IMPRESSION: Examination is compared to PET/CT dated 09/08/2021. Patient is status post right upper lobe lobectomy and mediastinal lymph node dissection with right thoracostomy tube in place. There is a small right apical and lateral pneumothorax. No left pneumothorax. There are diffuse emphysematous changes. Right paratracheal/right hilar opacity compatible with postoperative change. Recommend attention on follow-up examination. No definite pleural effusion. Heart size is normal. Dictated by: Mario Mcclendon M.D. The radiology attending physician has personally reviewed this study, and had reviewed and/or edited this written report and agrees with it. Electronically signed by: Justin Moralez M.D. Ranjan Cazares MD IMG XR PROCEDURES Lupe l Result * Surgical pathology (09/12/2021 11:02 AM CDT) Tissue (Lymph Node, Single excision) 09/12/2021 11:02 AM CDT Tissue (Lymph Node, Single excision) 09/12/2021 11:03 AM CDT Tissue (Lymph Node, Single excision) 09/12/2021 11:06 AM CDT Tissue (Lymph Node, Single excision) 09/12/2021 11:17 AM CDT Tissue (Lymph Node, Single excision) 09/12/2021 11:33 AM CDT Tissue (Lymph Node, Single excision) 09/12/2021 11:57 AM CDT Tissue (Lymph Node, Single excision) 09/12/2021 11:57 AM CDT Tissue (Lung, total / lobe / segmental, tumor) 09/12/2021 12:22 PM CDT Narrative PATHOLOGY [facility] - 09/16/2021 4:47 PM CDT EPIC results best viewed via link to PDF [facility] [place] [address] Note to Patients: This report may contain [...] and explain the details. SURGICAL PATHOLOGY REPORT FINAL Patient Name: ?? DARRION GUILLORY Gender: ??F : ??1950 (Age: 71) Address: ??[address] [place] [address] ??[id number] Hospital #: ??[id number] Taken:09/12/2021 Received:09/12/2021 Reported: 09/16/2021 Patient Type: [facility] Inpatient ?? Service: Surgery Location: [place] [address] Physician(s): ??Ranjan Cazares M.D. Abbey Arevalo MD Diagnosis: A. Lymph node, level 8, excisional biopsy ? - One lymph node with no evidence of malignancy (0/1) B. Lymph node, level 9, excisional biopsy ? - One lymph node with no evidence of malignancy (0/1) C. Lymph node, level 7, excisional biopsy ? - One lymph node with no evidence of malignancy (0/1) D. Lymph node, level 4R, excisional biopsy ? - One lymph node with no evidence of malignancy (0/1) E. Lymph node, level 11, excisional biopsy ? - One lymph node with no evidence of malignancy (0/1) F. Lymph node, level 11b, excisional biopsy ? - One lymph node with no evidence of malignancy (0/1) G. Lymph node, level 12, excisional biopsy ? - One lymph node with no evidence of malignancy (0/1) H. Lung, right upper lobe, lobectomy ? - Three separate foci of invasive carcinoma ? - #1: Squamous cell carcinoma, well differentiated, keratinizing type, 2cm, negative bronchial, vascular, and parenchymal margins - #2: Minimally invasive adenocarcinoma with acinar and lepidic patterns, measuring 6 m with a 5 mm focus of invasion, negative bronchial, vascular, and parenchymal margins - #3: Minimally invasive adenocarcinoma with solid, acinar and lepidic patterns, measuring 6 m with a 5 mm focus of invasion, negative bronchial, vascular, and parenchymal margins ? - No evidence of malignancy in two peribronchial lymph nodes (0/2) - Uninvolved lung with emphysematous changes lrw/09/15/2021 12:34 By this signature, I attest that the above diagnosis is based upon my personal examination of the slides(and/or other material indicated in the diagnosis). Marissa Raymond MD PhD Report Electronically Reviewed and Signed Out By ??Marissa Raymond MD PhD 09/16/2021 16:47:11 Microscopic Description and Comment: Microscopic examination substantiates the above cited diagnosis. (Part H) Three distinct nodules are identified grossly, and the microscopic examination showed that the histological features of these three foci are different, consistent with three different primary cancer. The predominant mass (lesion #1) is a keratinizing squamous cell carcinoma. The #2 and #3 lesions are adenocarcinoma, with uninvolved lung parenchyma present in between all three lesions. A limited panel of immunohistochemistry stains was performed (single antibody procedure with proper controls) for lesion #3, as there are a small portion of solid growth concerning for squamous differentiation. The cells in question stain positive for CK7 and TTF1, and negative for CK5/6 and p40, consistent with solid pattern of adenocarcinoma. Paulette Lai D.O. History: The patient is a 71-year-old female with a history of right lung carcinoma. ??Operative procedure: robotic right lobectomy, mediastinal lymph node dissection Specimen(s) Received: A: Lymph node, level 8 B: Lymph node, level 9 C: Lymph node, level 7 D: Lymph node, level 4R E: Lymph node, level 11 F: Lymph node, level 11b G: Lymph node, level 12 H: Right upper lobe Gross Description: The specimens are received in eight formalin filled containers each labeled with the patient's identifiers. A. ??Received in formalin labeled lymph node, level 8 is a 1.1 x 0.6 x 0.3 cm lymph node. ??Submitted entirely in A1. ??Jar 0 ? B. ??Received in formalin labeled lymph node, level 9 is a 0.7 x 0.5 x 0.2 cm lymph node. ??Submitted entirely in B1. ??Jar 0 ? C. ??Received in formalin labeled lymph node, level 7 is a 1.4 x 1.2 x 0.5 cm lymph node. ??Bisected and submitted and entirely in C1. ??Jar 0 ? D. ??Received in formalin labeled lymph node, level 4R is a 0.2 x 0.2 x 0.2 cm lymph node. ??Submitted entirely in D1. ??Jar 0 ? E. ??Received in formalin labeled lymph node, level 11 is a 1.5 x 0.8 x 0.6 cm lymph node. ??Bisected and submitted entirely in E1. ??Jar 0 ? F. ??Received in formalin labeled lymph node, level 11B is a 0.8 x 0.9 x 0.4 cm lymph node. ??Submitted entirely in F1. ??Jar 0 ? G. ??Received in formalin labeled lymph node, level 12 is a 0.5 x 0.4 x 0.3 cm lymph node. ??Submitted entirely in G1. ??Jar 0 ? H. ??Labeled right upper lobe is a (14.0 cm superior to inferior, 9.5 cm anterior to posterior, 4.0 cm medial to lateral) lobe of lung. ??The pleural surface is pickard-purple to pickard brown with lateral areas of adhesion and a 6.5 cm portion of attached yellow adipose tissue. ??In the area of adhesion there is a 3.0 x 2.5 area of pleural thickening and palpable underlying mass, inked green. ??The overlying pleural is nonmobile with no obvious gross invasion. ??The parenchymal staple margin measures 14.0 cm with an adjacent hilar region also stapled. ??Staple margins are removed and the underlying tissue is inked black. ??The specimen is sectioned to show a 1.3 x 1.3 x 2.0 cm firm pickard-white spiculated mass (#1) abutting the pleural surface with no obvious invasion, 2.5 cm from parenchymal and hilar margin. A satellite nodule (#2), located 0.4 cm from the tumor, has a similar firm pickard-white appearance measuring at greatest 0.6 x 0.5 x 0.6 cm, also abutting the pleural margin. Adjacent to the tumor is an area of pleural thickening measuring 2.0 x 2.0 x 0.6 cm. There is an additional similar appearing small nodule (#3) within the specimen measuring 0.6 x 0.4 x 0.5 cm, located 3.0 cm superior from the primary tumor, 0.3 cm from the pleura, and 2.5 cm from parenchymal margin. ??There are no other lesions identified. ??The uninvolved lung is pickard-brown, spongy, and unremarkable. Labeled H1- hilar margins with lymph node, H2-3- lesion #1 and #2, H4-5- lesion #1 and pleural thickening, H6- entire lesion #3, H7- uninvolved lung. ??Jar 2 [facility]/09/13/2021 13:27 Gross Resident:Paulette Lai D.O. ? CANCER CASE SUMMARY FOR TUMORS OF THE LUNG Procedure: ?Lobectomy ? Specimen laterality: ?Right ? Synchronous Tumors: ?Present # ? Total number of primary tumors: 3 ? Tumor site: ?Upper lobe ? Tumor size: ?Greatest dimension: 2.0 cm ? Histologic type: ?Invasive squamous cell carcinoma, keratinizing ? Histologic grade: ?G1: Well differentiated ? Spread Through Air Spaces: ?Not identified ? Visceral pleura invasion: ?Not identified ? Lymphovascular Invasion: ?Not identified ? Direct Invasion of Adjacent Structures: ?No adjacent structures present ? Margins: ?All margins are uninvolved by carcinoma ? Margins examined (specify): broncial, vascular, parenchymal Treatment effect: ?No known presurgical therapy ? Regional lymph nodes: ?Lymph Node(s) from Prior Procedures: ? Lymph Node Examination: ? Number of lymph nodes involved: 0 ? Number of lymph nodes examined: 9 ? Lam station(s) examined: levels 4R, 7, 8, 9, 11, 12 ? Pathologic Stage Classification (pTNM, AJCC 8th Edition): TNM Descriptors: ?m (multiple primary tumors) ? Primary tumor (pT): ?pT1b: ??Tumor >1 cm, but <=2 cm in greatest dimension pN Category: ?pN0: No regional lymph node metastasis ? Additional pathologic findings: ?Emphysema The pathologic stage assigned here should be regarded as provisional, and may change after integration of clinical data not provided with this specimen. CAP VERSION: Lung 4.2.0.0 By this signature, I attest that the above diagnosis is based upon my personal examination of the slides(and/or other material). Addenda/Procedures The performance characteristics of some immunohistochemical stains, fluorescence in-situ hybridization tests and immunophenotyping by flow cytometry cited in this report (if any) were determined by the Surgical Pathology and Flow Cytometry Departments at [facility] as part of an ongoing air quality chemist program and in compliance with federally mandated [...] following disclaimer be attached to the report: This test was developed and its performance characteristics determined by the Surgical Pathology and Flow Cytometry Departments of [facility]. ??It has not been cleared or approved by the U. S. Food and Drug Administration. IMAGES AND SCANNED DOCUMENTS, IF INCLUDED, ONLY VIEWABLE IN PDF VERSION OF REPORT us Ranjan Cazares MD LAB PATHOLOGY ORDERABL ES Final Result PATHOLOGY [facility] [address] Floor [place], [place] [phone] documented in this encounter Visit Diagnoses Diagnosis History of lobectomy of lung- Primary History of lobectomy of lung Bronchogenic lung cancer, right (HCC) Malignant neoplasm of lung (HCC) Malignant neoplasm of bronchus and lung, unspecified site COPD (chronic obstructive pulmonary disease) (HCC) Chronic airway obstruction, not elsewhere classified Hypertension Unspecified essential hypertension documented in this encounter Admitting Diagnoses Diagnosis History of lobectomy of lung Bronchogenic lung cancer, right (HCC) documented in this encounter Administered Medications Inactive Administered Medications - up to 3 most recent administrations Medication Order MAR Action Action Date Dose Rate Site acetaminophen (TYLENOL) tablet 1,000 mg 1,000 mg, oral, Once, On Sun09/12/21 at 0930, For 1 dose, Pre-Op, Indications: Pre-Emptive AnalgesiaIndications:Pre-Emptive Analgesia Given 09/12/2021 9:38 AM CDT 1,000 mg acetaminophen (TYLENOL) tablet 1,000 mg 1,000 mg, oral, Every 6 hours scheduled, First dose on Sun09/12/21 at 1800, If able to swallow medications., Indications: PainIndications:Pain Given 09/14/2021 5:47 AM CDT 1,000 mg Given 09/13/2021 11:23 PM CDT 1,000 mg Given 09/13/2021 5:22 PM CDT 1,000 mg albumin 5 % bottle - ADS Override Pull Starting on Sun09/12/21 at 1430, For 1 dose, Created by cabinet override albumin 5 % bottle 12.5 g 12.5 g, intravenous, Once, On Sun09/12/21 at 1500, For 1 dose, Phase I, Infusion rate depends on indication and clinical situation. Suggested initial rate - 120 mL/hr. In patients with normal plasma volume, do not exceed 2 mL/minute, Indications: hypotensionIndications:hypote nsion Given 09/12/2021 2:34 PM CDT 12.5 g aspirin enteric coated tablet 81 mg 81 mg, oral, Daily after lunch, First dose on Sun09/13/21 at 1230, Do not crush, chew, cut, dissolve, open or otherwise manipulate tablet/capsule., Indications: prevention of thrombosisIndications:prevent ion of thrombosis Given 09/13/2021 12:53 PM CDT 81 mg enoxaparin (LOVENOX) syringe 40 mg 40 mg, subcutaneous, Daily (for enoxaparin), First dose on Sun09/12/21 at 2100, Indications: Deep Vein Thrombosis PreventionIndications:Deep Vein Thrombosis Prevention Given 09/13/2021 9:15 PM CDT 40 mg Left Lower Abdomen Given 09/12/2021 8:22 PM CDT 40 mg Le ft Lower Abdomen famotidine (PEPCID) tablet 20 mg 20 mg, oral, Every morning, First dose on Sun09/13/21 at 0900, Indications: gastroesophageal reflux diseaseIndications:gastroesophageal reflux disease Given 09/14/2021 9:19 AM CDT 20 mg Given 09/13/2021 8:30 AM CDT 20 mg fluticasone furoate-vilanteroL (BREO ELLIPTA) 100-25 mcg/dose inhaler 1 puff 1 puff, inhalation, 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), First dose on Sun09/12/21 at 1645 Given 09/14/2021 8:10 AM CDT 1 puff Given 09/13/2021 8:05 AM CDT 1 puff gabapentin (NEURONTIN) capsule 100 mg 100 mg, oral, 3 times daily, First dose on Sun09/12/21 at 1645 Given 09/14/2021 9:19 AM CDT 100 mg Given 09/13/2021 9:15 PM CDT 100 mg Given 09/13/2021 5:22 PM CDT 100 mg gabapentin (NEURONTIN) capsule 300 mg 300 mg, oral, Once, On Sun09/12/21 at 0930, For 1 dose, Pre-Op, Indications: Pre-Emptive AnalgesiaIndications:Pre-Empt annalise Analgesia Given 09/12/2021 9:38 AM CDT 300 mg heparin 5,000 unit/mL injection 5,000 Units 5,000 Units, subcutaneous, Once, On Sun09/12/21 at 0930, For 1 dose, Pre-Op, Indications: Deep Vein Thrombosis PreventionIndications:Deep Vein Thrombosis Prevention Given 09/12/2021 9:48 AM CDT 5,000 Units Right Lower Abdomen HYDROmorphone (DILAUDID) injection 0.2 mg 0.2 mg, intravenous, Administer over 2 Minutes, Every 10 min PRN, 1st line for pain, Starting on Sun09/12/21 at 1256, Phase I, Switch to 2nd line analgesic order if pain is uncontrolled or increasing after 2 doses. Notify Anesthesiologist if total PACU dose reaches 2 mg and pain score 5/10 or more., Indications: PainIndications:Pain Given 09/12/2021 1:30 PM CDT 0.2 mg Given 09/12/2021 1:15 PM CDT 0.2 mg Given 09/12/2021 1:05 PM CDT 0.2 mg HYDROmorphone (DILAUDID) injection 0.4 mg 0.4 mg, intravenous, Administer over 2 Minutes, Every 10 min PRN, 2nd line for pain, Starting on Sun09/12/21 at 1256, Phase I, May administer 10 mintes after 2nd dose of 1st line analgesic agent for uncontrolled or increasing pain. Revert to 1st line dose if POSS of 3. Notify Anesthesiologist if total PACU dose reaches 2 mg and pain score 5/10 or more., Indications: PainIndications:Pain Given 09/12/2021 1:48 PM CDT 0.4 mg ibuprofen (ADVIL,MOTRIN) tablet 600 mg 600 mg, oral, Once, On Sun09/12/21 at 0930, For 1 dose, Pre-Op, Indications: Pre-Emptive AnalgesiaIndications:Pre-Emptive Analgesia Given 09/12/2021 9:38 AM CDT 600 mg Lactated Ringer's (LR) infusion 30 mL/hr, intravenous, Continuous, Starting on Sun09/12/21 at 0930 Restarted 09/12/2021 12:49 PM CDT Rate/Dose Verify 09/12/2021 10:01 AM CDT 30 mL/ hr New Bag 09/12/2021 9:44 AM CDT 30 mL/hr 30 mL/hr methocarbamoL (ROBAXIN) tablet 750 mg 750 mg, oral, 4 times daily, First dose on Sun09/12/21 at 1700 Given 09/14/2021 9:19 AM CDT 750 mg Given 09/13/2021 9:15 PM CDT 750 mg Given 09/13/2021 5:22 PM CDT 750 mg ondansetron (ZOFRAN) injection 8 mg 8 mg, intravenous, Administer over 2 Minutes, Every 6 hours PRN, nausea, vomiting, Starting on Sun09/12/21 at 1611, Administer no sooner than 6 hours after last dose. , Indications: Nausea and VomitingIndications:Nausea and Vomiting Given 09/12/2021 8:23 PM CDT 8 mg oxyCODONE (ROXICODONE) tablet 5 mg 5 mg, oral, Once as needed, 1st line for pain, Starting on Sun09/12/21 at 1256, For 1 dose, Phase I, When able to tolerate PO., Indications: PainIndications:Pain Given 09/12/2021 1:47 PM CDT 5 mg oxyCODONE (ROXICODONE) tablet 5 mg 5 mg, oral, Every 4 hours PRN, 1st line for pain, Starting on Sun09/12/21 at 1611, Indications: PainIndications:Pain Given 09/13/2021 8:47 AM CDT 5 mg Given 09/13/2021 12:52 AM CDT 5 mg polyethylene glycol (MIRALAX) packet 17 g 17 g, oral, Daily, First dose on Sun09/13/21 at 0900, Indications: constipationIndications:constipation Given 09/14/2021 9:20 AM CDT 17 g Given 09/13/2021 8:30 AM CDT 17 g senna (SENOKOT) tablet 1 tablet 1 tablet, oral, 2 times daily, First dose on Sun09/12/21 at 2100, If able to swallow medications. Hold for diarrhea., Indications: constipationIndications:constipation Given 09/14/2021 9:19 AM CDT 1 table t Given 09/13/2021 9:15 PM CDT 1 tablet Given 09/13/2021 8:30 AM CDT 1 tablet sodium chloride 0.9% flush 0.5-20 mL 0.5-20 mL, intra-catheter, Every 8 hours scheduled, First dose on Sun09/12/21 at 1645, Flush volume based on line type and size. , Indications: FlushingIndications:Flushing Given 09/14/2021 5:48 AM CDT 10 mL Given 09/13/2021 9:16 PM CDT 10 mL Given 09/13/2021 2:32 PM CDT 10 mL documented in this encounter Discontinued Medications Medication Sig Discontinue Reason Start Date End Da te amLODIPine (NORVASC) 10 mg tabletIndications:hyperte nsion 10 mg daily after lunch Reorder 09/14/2021 losartan (COZAAR) 25 mg tabletIndications:hyperte nsion Take 25 mg by mouth daily after lunch Reorder 09/14/2021 documented as of this encounter Active and Recently Administered Medications Times are shown in CDT. Scheduled Medication Order 09/12/2021 09/13/2021 09/14/2021 acetaminophen (TYLENOL) tablet 1,000 mg (COMPLETED) 1,000 mg, oral, Once, On Sun09/12/21 at 0930, For 1 dose, Pre-Op, Indications: Pre-Emptive Analgesia 0938 (Given - Provider: Quyen Ayala, RN) acetaminophen (TYLENOL) tablet 1,000 mg(Linked Group 1) 1,000 mg, oral, Every 6 hours scheduled, First dose on Sun09/12/21 at 1800, If able to swallow medications., Indications: Pain 1742 (Given - Provider: Deangelo Oliveros, DIGNA)2335 (Given - Provider: Nicola Goddard, DIGNA) 0508 (Given - Provider: Nicola Goddard RN)1253 (Given - Provider: Deangelo Oliveros, DIGNA)1722 (Given - Provider: Deangelo Oliveros, DIGNA)2323 (Given - Provider: Ranjan Price RN) 0547 (Given - Provider: Ranjan Price RN)1200 (Due) albumin 5 % bottle 12.5 g (COMPLETED) 12.5 g, intravenous, Once, On Sun09/12/21 at 1500, For 1 dose, Phase I, Infusion rate depends on indication and clinical situation. Suggested initial rate - 120 mL/hr. In patients with normal plasma volume, do not exceed 2 mL/minute, Indications: hypotension 1434 (Given - Provider: Betty Garland, DIGNA) aspirin enteric coated tablet 81 mg 81 mg, oral, Daily after lunch, First dose on Sun09/13/21 at 1230, Do not crush, chew, cut, dissolve, open or otherwise manipulate tablet/capsule., Indications: prevention of thrombosis 1253 (Given - Provider: Deangelo Oliveros, DIGNA) ceFAZolin (ANCEF) 2,000 mg/20 mL in sterile water (premix) 2,000 mg (COMPLETED) 2,000 mg, intravenous, at 400 mL/hr, Administer over 3 Minutes, Once, On Sun09/12/21 at 1045, For 1 dose, Intra-Op, Administer within 60 minutes of incision., Indications: Prophylaxis, Surgical 1021 (Given - Provider: Harley Palomo MD) enoxaparin (LOVENOX) syringe 40 mg 40 mg, subcutaneous, Daily (for enoxaparin), First dose on Sun09/12/21 at 2100, Indications: Deep Vein Thrombosis Prevention 2021 (Given - Provider: Nicola Goddard, DIGNA) 2114 (Given - Provider: Ranjan Price, DIGNA) famotidine (PEPCID) tablet 20 mg 20 mg, oral, Every morning, First dose on Sun09/13/21 at 0900, Indications: gastroesophageal reflux disease 0830 (Given - Provider: Deangelo Oliveros, RN) 09 (Given - Provider: Galen Sharma, DIGNA) fluticasone furoate-vilanteroL (BREO ELLIPTA) 100-25 mcg/dose inhaler 1 puff 1 puff, inhalation, 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), First dose on Sun09/12/21 at 1645 1721 (Not Given - Provider: Sadaf Ag RRT - Reason: Medication not available) 0805 (Given - Provider: Sadaf Ag RRT) 0810 (Given - Provider: Fany Lovell RRT) gabapentin (NEURONTIN) capsule 100 mg 100 mg, oral, 3 times daily, First dose on Sun09/12/21 at 1645 1742 (Given - Provider: Deangelo Oliveros RN)2023 (Not Given - Provider: Nicola Goddard RN - Reason: Contraindicated - Comment: too close last dose) 0830 (Given - Provider: Deangelo Oliveros RN)1721 (Given - Provider: Deangelo Oliveros RN)2114 (Given - Provider: Ranjan Price, DIGNA) 918 (Given - Provider: Galen Sharma, DIGNA) gabapentin (NEURONTIN) capsule 300 mg (COMPLETED) 300 mg, oral, Once, On Sun09/12/21 at 0930, For 1 dose, Pre-Op, Indications: Pre-Emptive Analgesia 0938 (Given - Provider: Quyen Ayala RN) heparin 5,000 unit/mL injection 5,000 Units (COMPLETED) 5,000 Units, subcutaneous, Once, On Sun09/12/21 at 0930, For 1 dose, Pre-Op, Indications: Deep Vein Thrombosis Prevention 0948 (Given - Provider: Quyen Ayala, DIGNA) ibuprofen (ADVIL,MOTRIN) tablet 600 mg (COMPLETED) 600 mg, oral, Once, On Sun09/12/21 at 0930, For 1 dose, Pre-Op, Indications: Pre-Emptive Analgesia 0938 (Given - Provider: Quyen Ayala, DIGNA) methocarbamoL (ROBAXIN) tablet 750 mg 750 mg, oral, 4 times daily, First dose on Sun09/12/21 at 1700 1742 (Given - Provider: Deangelo Oliveros RN)2023 (Not Given - Provider: Nicola Goddard RN - Reason: Contraindicated - Comment: too close last dose) 0831 (Given - Provider: Deangelo Oliveros RN)1253 (Given - Provider: Deangelo Oliveros RN)1722 (Given - Provider: Deangelo Oliveros RN)211 (Given - Provider: Ranjan Price, DIGNA) 0919 (Given - Provider: Galen Sharma, DIGNA)1200 (Due) polyethylene glycol (MIRALAX) packet 17 g 17 g, oral, Daily, First dose on Sun09/13/21 at 0900, Indications: constipation 0830 (Given - Provider: Deangelo Oliveros RN) 0920 (Given - Provider: Galen Sharma, DIGNA) senna (SENOKOT) tablet 1 tablet(Linked Group 2) 1 tablet, oral, 2 times daily, First dose on Sun09/12/21 at 2100, If able to swallow medications. Hold for diarrhea., Indications: constipation 2021 (Given - Provider: Nicola Goddard RN) 0830 (Given - Provider: Deangelo Oliveros RN)2114 (Given - Provider: Ranjan Price, DIGNA) 0919 (Given - Provider: Galen Sharma, DIGNA) sodium chloride 0.9% flush 0.5-20 mL 0.5-20 mL, intra-catheter, Every 8 hours scheduled, First dose on Sun09/12/21 at 1645, Flush volume based on line type and size. , Indications: Flushing 1656 (Not Given - Provider: Deangelo Oliveros RN - Reason: IV Infusing)2023 (Given - Provider: Nicola Goddard RN) 0508 (Given - Provider: Nicola Goddard RN)1432 (Given - Provider: Deangelo Oliveros, RN)2116 (Given - Provider: Ranjan Price, DIGNA) 0548 (Given - Provider: Ranjan Price RN) Continuous Medication Order 09/12/2021 09/13/2021 09/14/2021 Lactated Ringer's (LR) infusion (CANCELED) 30 mL/hr, intravenous, Continuous, Starting on Sun09/12/21 at 0930 0944 (New Bag - Provider: Quyen Ayala RN)1001 (Rate/Dose Verify - Provider: Fernanda Colunga MD)1248 (Paused - Provider: Harley Palomo MD - Comment: Switch to gravity)1249 (Restarted - Provider: Harley Palomo MD)1322 (Continued from OR - Provider: Betty Garland RN)1741 (Stopped - Provider: Deangelo Oliveros RN) PRN Medication Order 09/12/2021 09/13/2021 09/14/2021 bupivacaine-EPINEPHrine (MARCAINE with EPI) 0.5 %-1:200,000 preservative free injection (CANCELED) As needed, Starting on Sun09/12/21 at 1224, Intra-Op 1224 (Given - Provider: Ranjan Cazares MD) HYDROmorphone (DILAUDID) injection 0.2 mg (CANCELED) 0.2 mg, intravenous, Administer over 2 Minutes, Every 10 min PRN, 1st line for pain, Starting on Sun09/12/21 at 1256, Phase I, Switch to 2nd line analgesic order if pain is uncontrolled or increasing after 2 doses. Notify Anesthesiologist if total PACU dose reaches 2 mg and pain score 5/10 or more., Indications: Pain 1305 (Given - Provider: Betty Garland RN)1315 (Given - Provider: Betty Garland RN)1330 (Given - Provider: Betty Garland RN) HYDROmorphone (DILAUDID) injection 0.4 mg (CANCELED) 0.4 mg, intravenous, Administer over 2 Minutes, Every 10 min PRN, 2nd line for pain, Starting on Sun09/12/21 at 1256, Phase I, May administer 10 mintes after 2nd dose of 1st line analgesic agent for uncontrolled or increasing pain. Revert to 1st line dose if POSS of 3. Notify Anesthesiologist if total PACU dose reaches 2 mg and pain score 5/10 or more., Indications: Pain 1348 (Given - Provider: Betty Garland, DIGNA) ondansetron (ZOFRAN) injection 8 mg 8 mg, intravenous, Administer over 2 Minutes, Every 6 hours PRN, nausea, vomiting, Starting on Sun09/12/21 at 1611, Administer no sooner than 6 hours after last dose. , Indications: Nausea and Vomiting 2022 (Given - Provider: Nicola Goddard, DIGNA) oxyCODONE (ROXICODONE) tablet 5 mg (COMPLETED) 5 mg, oral, Once as needed, 1st line for pain, Starting on Sun09/12/21 at 1256, For 1 dose, Phase I, When able to tolerate PO., Indications: Pain 1347 (Given - Provider: Betty Garland RN) oxyCODONE (ROXICODONE) tablet 5 mg 5 mg, oral, Every 4 hours PRN, 1st line for pain, Starting on Sun09/12/21 at 1611, Indications: Pain 0052 (Given - Provider: Nicola Goddard RN)0847 (Given - Provider: Deangelo Oliveros RN) sodium chloride 0.9% flush 0.5-20 mL 0.5-20 mL, intra-catheter, As needed, line care, Starting on Sun09/12/21 at 1611, Flush volume based on line type and size. Flush before and after each use. , Indications: Flushing sodium chloride 0.9% infusion (COMPLETED) Continuous PRN, Starting on Sun09/12/21 at 1051, Intra-Op 1051 (New Bag - Provider: Ranjan Cazares MD) Linked Groups Order Group 1: acetaminophen (TYLENOL) tablet 1,000 mgJump to med 1,000 mg, oral, Every 6 hours scheduled, First dose on Sun09/12/21 at 1800, If able to swallow medications., Indications: Pain Or acetaminophen (TYLENOL) 32 mg/mL oral solution 1,000 mg (CANCELED) 1,000 mg, feeding tube, Every 6 hours scheduled, First dose on Sun09/12/21 at 1800, If taking meds per tube., Indications: Pain Or acetaminophen (TYLENOL) suppository 650 mg (CANCELED) 650 mg, rectal, Every 6 hours scheduled, First dose on Sun09/12/21 at 1800, If unable to tolerate enteral administration., Indications: Pain Group 2: senna (SENOKOT) tablet 1 tabletJump to med 1 tablet, oral, 2 times daily, First dose on Sun09/12/21 at 2100, If able to swallow medications. Hold for diarrhea., Indications: constipation Or senna 1.76 mg/mL syrup 8.8 mg (CANCELED) 8.8 mg, feeding tube, 2 times daily, First dose on Sun09/12/21 at 2100, If taking meds per tube. Hold for diarrhea., Indications: constipation documented in this encounter Orders Medications Ordered That Rubén ht Not Have Been Administered Count Last Ordered Date First Ordered Date acetaminophen (TYLENOL) 32 m g/mL oral solution 1,000 mg 1 09/12/2021 acetaminophen (TYLENOL) suppository 650 mg 1 09/12/2021 acetaminophen (TYLENOL) tablet 1,000 mg 1 0 09/12/2021 bupivacaine-EPINEPHrine (MAR HARDY with EPI) 0.5 %-1:200,000 preservative free injection 1 09/12/2021 ceFAZolin (ANCEF) 2,000 mg/2 0 mL in sterile water (premix) 2,000 mg 1 09/12/2021 diphenhydrAMINE (BENADRYL) i njection 12.5 mg 1 09/12/2021 haloperidol (HALDOL) injection 0.5 mg 1 ipratropium-albuteroL (DUO-N EB) 0.5-2.5 mg/3 mL nebulizer solution 3 mL 1 09/12/2021 Lactated Ringer's (LR) infusion 1 naloxone (NARCAN) 0.4 mg/mL injection 0.04-0.4 mg 1 09/12/2021 senna 1.76 mg/mL syrup 8.8 mg 1 09/12/2021 sodium chloride 0.9% flush 0.5-20 mL 2 05/ 06/2021 sodium chloride 0.9% infusion 1 09/12/2021 sodium chloride 0.9% solution 1,000 mL 1 Nursing Count Last Ordered Date First Orde red Date MELISSA CATHETER - DISCONTINUE 1 09/13/[address] SEQUENTIAL COMPRESSION DEVICE 1 09/12 WEIGH PATIENT 1 09/12/2021 Admission Count Last Ordered Date First Orde red Date ADMIT TO INPATIENT 1 09/12/2021 Transfer Count Last Ordered Date First Orde red Date TRANSFER PATIENT TO NEW UNIT 1 09/13/2021 Discharge Count Last Ordered Date First Orde red Date DISCHARGE PATIENT 1 09/14/2021 ADT Patient Update Count Last Ordered Date Firs t Ordered Date PROVIDER TREATMENT TEAM 1 09/12/2021 documented in this encounter Care Teams Psychology Fellow Relationship Specialty Start Date End Date Codey BendereDO PCP - General Internal Medicine 01/03/18 05/14/22 Wilmer Taylor MD [id number] [address] Referring Physician Obstetrics and Gynecology 05/09/12 Jeffrey Koch MD [address] [place] [address] Consulting Physician Rheumatology 02/03/21 documented as of this encounter
--- OUTSIDE RECORDS SUMMARY | 2024-05-03 02:51 | XMS_ITS | Encounter Summary ---
Author Organization [facility] Healthcare Address [address] [place] [address] Care Team Providers Care Freight Breaker Name Role Phone Terry Bender DO Primary Care Provider [phone] Wilmer Taylor MD Unavailable [phone] Jeffrey Koch MD Unavailable [phone] Reason for Visit * Auth/Cert Specialty Diagnoses / Procedures Referred By Contmary t Referred To Contact Diagnoses History of lobectomy of lung History of lobectomy of lung [Z90.2] Procedures NC THORACOSCOPY SURG LOBECTOMY NA Referral ID Status Reason Start Date Expiration Date Visits Re quested Visits Authorized [id number] 1 1 Encounter Details Date Type Department Care Team (Late st Contact Info) Description 09/12/2021 10:01 AM CDT Anesthesia Event [facility] Operating Room [address] [place] [address] Fernnada Colunga MD [address] [place] [address] Fany Miramontes NP [address] [facility] [id number] [place] [address] Anesthesia Record Procedure Summary Procedure Name Responsible Anesthesiologist Anesthesia Start Time Anesthesia Stop Time XI ROBOTIC LOBECTOMY (Right: Chest) Fernanda Colunga MD 09/12/21 1001 09/12/21 1257 Events Date Time Event Comment 09/12/2021 0837 In Preop 0916 1000 In Room 1001 An Start 1001 An Start Data 1005 An Induction The patient was reevaluated immediately before moderate or deep sedation use and before anesthesia induction. 1010 An Intubation 1025 1 Lung ventilation - Left 1029 Anesthesia Ready 1032 Proc Start 1037 Incision Start 1224 An Two-Lung Vent 1238 Proc Fin 1245 An Extubation 1250 an stop data 1250 Out of Room 1257 Handoff to RN I completed my handoff [...] disposition at the time of handoff: PACU 1257 An Stop Meds Name Total fentaNYL 100 mcg lidocaine (cardiac) syringe 2 % 60 mg propofol 100 mg rocuronium 70 mg succinylcholine 60 mg phenylephrine 100 mcg/mL 200 mcg HYDROmorphone 2 mg/mL 0.6 mg ondansetron PF (ZOFRAN) 2 mg/mL injectio n 4 mg ceFAZolin (ANCEF) 2,000 mg/20 mL in ster ile water (premix) 2,000 mg 2,000 mg phenylephrine infusion (100 mcg/mL) 4.7 mg sugammadex 200 mg Lactated Ringer's (LR) infusion 1,200 mL * Agents Name O2% N2O O2 N2O Air Sevoflurane Inspired Sevoflurane * Blood No blood administrations on file. Lines, Drains, and Airways Type Details Placement Removal Chest Tube Orientation: Right; Location: Pleural; Size: 28 Fr; Drainage System: Suction; Sutures Placed: 2; Removal Date: 09/13/21; Removal Time: 919; Removal Reason: Per order 09/12/21 1227 by 09/13/21 0920 by Deangelo Oliveros RN RETIRED Surgical Site 04/08/19; 1327; Gr oin; 03/25/24 (Retired LDA, Removed/Completed by [facility] with LDA Utility); 1213 (Retired LDA, Removed/Completed by [facility] with LDA Utility) 04/08/19 1327 by Bruna May RN 03/25/24 1213 by Discharge Provider, Automatic RETIRED Surgical Site 04/08/19; 1327; Vagina; 03/25/24 (Retired LDA, Removed/Completed by [facility] with LDA Utility); 1213 (Retired LDA, Removed/Completed by [facility] with LDA Utility) 04/08/19 1327 by Bruna May RN 03/25/24 1213 by Discharge Provider, Automatic RETIRED Surgical Site 07/06/21; 1229; Buttocks; 03/25/24 (Retired LDA, Removed/Completed by [facility] with LDA Utility); 1213 (Retired LDA, Removed/Completed by [facility] with LDA Utility) 07/06/21 1229 by Yvette Gillespie RN 03/25/24 1213 by Discharge Provider, Automatic Peripheral IV Placement Date: 09/12/21; Catheter Size: 18 G; Orientation: Anterior, Left; Location: Forearm; Removal Date: 09/14/21; Removal Time: 1113 09/12/21 0000 by Deangelo Oliveros RN 09/14/21 1113 by Galen Sharma RN Peripheral IV Placement Date: 09/12/21; Placement Time: 0900; Catheter Size: 18 G; Orientation: Anterior, Right; Location: Forearm; Site Prep: Chlorhexidine; Technique: Anatomical landmarks; Inserted by: Thang Asencio RN; Insertion Attempts: 1; Patient Tolerance: Tolerated well; Removal Date: 09/14/21; Removal Time: 1112; Removal Reason: Per order 09/12/21 0900 by Quyen Pollock RN 09/14/21 1112 by Galen Sharma RN Urethral Catheter Placement Date: 09/12/21; Placement Time: 1020; Type: Non-latex; Balloon Size: 10 mL; Urine Returned: Yes; Removal Date: 09/13/21; Removal Time: 0920; Removal Reason: Per order 09/12/21 1020 by Jin Mckee RN 09/13/21 0920 by Deangelo Oliveros RN ETT Placement Date: 09/12/21; Placement Time: 1106 (created via procedure documentation); Mask Ventilation: 0; Technique: Video laryngoscopy; Type: ETT - double lumen left; Double Lumen Tube Size: 35 Fr; Cuffed: Yes; Laryngoscope: Rosa; Blade Size: 3; Location: Oral; Insertion Attempts: 1; Placement Verification: Bronchoscopy, Capnometry; Removal Date: 09/12/21; Removal Time: 1250 09/12/21 1106 by Harley Palomo MD 09/12/21 1250 by Harley Palomo MD RETIRED Surgical Site 09/12/21; 1227; Ri ght; Chest; Robotic access sites x4; 03/25/24 (Retired LDA, Removed/Completed by [facility] with LDA Utility); 1213 (Retired LDA, Removed/Completed by [facility] with LDA Utility) 09/12/21 1227 by Jin [...] file Legal 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 Gender Identity Not on file Sexual Orientation Not on file documented as of this encounter OR Notes * Anesthesia Postprocedure Evaluation - Alexandra Smith MD - 09/12/2021 3:21 PM CDT Patient: Loida Guillory Procedure Summary Date: 09/12/21 Room / Location: [facility] OR POD 3 ROOM 304 / [facility] OR [facility] 3 Anesthesia Start: 1001 Anesthesia Stop: 1257 Procedure: XI ROBOTIC LOBECTOMY (Right Chest) Diagnosis: History of lobectomy of lung (History of lobectomy of lung [Z90.2]) Surgeons: Ranjan Cazares MD Responsible Provider: Fernanda Colunga MD Anesthesia Type: general ASA Status: 3 Anesthesia Type: general Last vitals BP 91/47 Pulse 72 Temp 36 ??C (96.8 ??F) (Temporal) Resp 12 SpO2 96% Anesthesia Post Evaluation Patient location during evaluation: PACU Patient participation: complete - patient participated 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 * Anesthesia Postprocedure Evaluation - Mc Gatica MD - 09/12/2021 2:07 PM CDT Patient: Loida Guillory Procedure Summary Date: 09/12/21 Room / Location: [facility] OR POD 3 ROOM 304 / [facility] OR POD 3 Anesthesia Start: 1001 Anesthesia Stop: 1257 Procedure: XI ROBOTIC LOBECTOMY (Right Chest) Diagnosis: History of lobectomy of lung (History of lobectomy of lung [Z90.2]) Surgeons: Ranjan Cazares MD Responsible Provider: Fernanda Colunga MD Anesthesia Type: general ASA Status: 3 Anesthesia Type: general Last vitals BP 100/55 Pulse 69 Temp 36 ??C (96.8 ??F) (Temporal) Resp 12 SpO2 97% Anesthesia Post Evaluation Patient location during evaluation: floor Patient participation: complete - patient participated Level of consciousness: fully awake Pain score: 4 Pain management: adequate Airway patency: patent Evidence of recall: no Cardiovascular status: hemodynamically stable Respiratory status: nasal cannula Hydration status: acceptable Pt is: normothermic Nausea/Vomiting status: none Comments: Patient stable for transfer to surgical OU No complications documented. Cosigned by Fernanda Colunga MD at 09/13/2021 7:21 AM CDT * Anesthesia Procedure Notes - Harley Palomo MD - 09/12/2021 11:04 AM CDT Associated Order(s): Airway Airway Patient location: OR Urgency: elective Indications for airway management: anesthesia Difficult airway: no Staff: Supervising provider: Fernanda Colunga MD Placed by: Resident: Harley Palomo MD Emergent airway documentation: Risks and benefits discussed: yes Airway prep: Preoxygenated: yes Patient position: sniffing Mask difficulty assessment: 0 - not attempted Sedation level during airway: GA Final airway details: Final airway type: endotracheal airway Tube type: ETT - double lumen left ETT double lumen: 35 fr Cuffed: yes Technique used for successful ETT placement: video laryngoscopy Insertion site: oral Blade type: Rosa Video blade type: Open Dada Solution Lab Blade size: 3 Cormack-Lehane (video): grade I - full view of glottis Placement verified by: bronchoscopy and CO2 detection Airway secured with: silk tape Number of attempts: 1 * Anesthesia Preprocedure Evaluation - Fernanda Colunga MD - 09/01/2021 4:02 PM CDT Images from the original note were not included. [facility] Preoperative Assessment and Planning Preoperative Evaluation Record Evaluation type/location: [facility] Planned procedure site: [facility] (Pods 2/3/5/ETHANOL OPERATIONS MANAGER) Date: 09/01/21 Anesthesia Evaluation Loida Guillory is a 71 y.o. female Procedure(s): XI ROBOTIC LOBECTOMY Pre-Op Diagnosis Codes: Lung cancer HISTORY HPI 71 yo F with history of HTN, COPD, smoker, lung cancer presents for robotic lobectomy Past Medical History Information obtained from: patient and chart. Neurological Pertinent negatives: seizures; neuromuscular disease; CVA/stroke; TIA; CEA; ICA stenosis; dementia/mild cognitive impairment and carotid artery stent Cardiovascular + Hypertension (no change to bp meds recently) Hypertension year diagnosed: 2008. Pertinent negatives: CAD ; NV ; CABG ; valvular heart disease; valve replacement; atrial fibrillation; arrhythmia; pacemaker/ICD; PVD; DVT/PE; negative for CHF; drug-eluting stent(s); bare metal stent(s) and coronary angioplasty Respiratory + COPD (feels breathing is at baseline.) Dyspnea frequency: never. Rescue inhaler use: never. Hospitalizations/ER in the last year: 0. Pertinent negatives: asthma; sleep apnea (SOTERO); pulmonary hypertension; no O2 use outside the hospital; no history of oral steriod use and no prior intubation for respiratory failure Cigarette smoker: previous smoker. Hepatic / Heme Pertinent negatives: liver disease; history of anemia; history of thrombocytopenia and history of Shawna positive Gastrointestinal + GERD - on daily therapy. Asymptomatic. Pertinent negatives: hiatal hernia Renal / Pertinent negatives: renal disease; dialysis and nephrolithiasis Comments: Creatinine range 0.89-1.03 Musculoskeletal/Pain + Chronic pain (RA chronic pain to neck, back, bilateral hands) Pertinent negatives: chronic opioid use and previous treatment for opioid use disorder Endocrine / Other + Cancer history Cancer type: VIN3/AIN s/p WLE, current lung cancer. + Rheumatological disease (stable currently on methotrexate) - rheumatoid arthritis. Pertinent negatives: diabetes mellitus; thyroid disease; obesity (BMI >30) and transplanted organ Functional Capacity Functional capacity: <4 METs Comments: Limitations r/t pain. Would be able to walk slow steady without SOB or CP. Denies any drastic decline in function Review of Systems + chronic pain (RA chronic pain to neck, back, bilateral hands) + hard of hearing (deaf right ear) Pertinent negatives: productive cough; wheezing; SOB; recent cold/flu; fever; chest pain; palpitations; orthopnea; pedal edema; PND; heavy menses; Sickle Cell disease/trait; previous transfusion; transfusion reaction; melena/hematochezia; easy bruising; bleeding problems; syncope; dizziness; muscleweakness; numbness/tingling; vision loss; heartburn; nausea; dysphagia; diarrhea; dentures/partials; chipped/loose teeth; abdominal pain; diaphoresis and no unexpected weight change Comments: Patient denies any S/S of UTI. PAT Summary and Plans Initial preoperative evaluation discussed with: Molina Muñoz MD Additional comments: Loida Guillory is a 71 y.o. female who is being evaluated prior to undergoing an intermediate cardiac risk surgery. Revised Cardiac Risk Index factors are (none) for a total RCRIof 0 out of 6. Functional capacity is <4 METs Obstructive sleep apnea (SOTERO) screening status is STOP-Bang=2 suggesting low risk for SOTERO The patient is on aspirin therapy for primary prevention. The patient's perioperative cardiovascular risk is deemed low or is outweighed by bleeding risk. If time permits, we support stopping aspirin7 or more days prior to the procedure. The patient reports discontinuing this medication on 2 weeksago. Please call the CPAP attending ([phone]) with any questions. Blood bank needs for day of procedure: Type and Screen only Pending labs/tests include: CBC BMP T&S Patient's COVID19 status is: Unexposed. The patient currently has no concerning symptoms of COVID19. . Patient's COVID-19 vaccination status is Up to date with 3 mRNA vaccines. Documentation of vaccination status is available in the Epic Immunization tab. . Plan for pre-procedure COVID19 testing: Patient is asymptomatic and up to date with their COVID-19 vaccine. COVID-19 testing not indicated. Awaiting PFTs for chart completion. Preoperative evaluation performed by Fany Miramontes NP on 09/01/21 at 4:11 PM. . Follow up note Labs reviewed and are without significant findings. Awaiting outside records. Surgeon's office reviews laboratory results independently, including final results of surgeon ordered labs. Awaiting final PFT result Follow-up completed by: Lizzie Chong NP on 09/02/21 at 9:55 AM Follow up note PFTs obtained and reviewed. See diagnostics. CPAP complete Follow-up completed by: Fany Miramontes NP on 09/07/21 at 12:54 PM Patient Active Problem List Diagnosis ??? Anal dysplasia ??? Hypertension ??? Encounter for postoperative care ??? HAWA III (vulvar intraepithelial neoplasia III) ??? 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) ??? Neck pain ??? skilled nursing current use 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 drug ??? Malignant neoplasm of lung (CMS/HCC) (HCC) Past Medical History: Diagnosis Date ??? Arthritis ??? Hypertension ??? Personal history of other diseases of the circulatory system History of hypertension - (Added by TW Conv) Past Surgical History: Procedure Laterality Date ??? OVARY SURGERY 1994 Cyst x2 removed from overies ??? NC BREAST SURGERY PROCEDURE UNLISTED Right 1978 Cyst removed from R breast ??? RHINOPLASTY 1989 Deviated septum ??? VULVA SURGERY 03/28/2012 HAWA III excision ??? VULVA SURGERY 03/04/2013 HAWA III excision ??? VULVA SURGERY 11/10/2018 HAWA III excision ??? VULVA SURGERY 04/08/2019 HAWA III excision OB History No obstetric history on file. Allergies Allergen Reactions ??? Omeprazole Rash ??? Amoxicillin Diarrhea Med List Status: Nurse Complete Set By: Delia Emery RN at 09/01/2021 4:05 PM Taking? Last Dose Start Date End Date Provider acetaminophen (TYLENOL) 500 mg tablet Past Week 04/08/19 -- Maria Isabel Horan MD Take 2 tablets (1,000 mg total) by mouth every 6 (six) hours as needed for pain Patient taking differently: Take 1,000 mg by mouth every 6 (six) hours as needed for pain amLODIPine (NORVASC) 10 mg tablet 09/01/2021 -- -- ProviderMesha MD ascorbic acid (VITAMIN C) 500 mg tablet,chewable 08/31/2021 -- -- Mesha Greer MD aspirin 81 mg enteric coated tablet Past Month -- -- Mesha Greer MD budesonide-formoteroL (SYMBICORT) 160-4.5 mcg/actuation inhaler 09/01/2021 -- -- Mesha Greer MD calcium carbonate-vitamin D3 1,500 mg (600mg elemental) -800 unit per tablet 09/01/2021 -- -- Mesha Greer MD famotidine (PEPCID) 20 mg tablet 09/01/2021 02/26/21 -- Mesha Greer MD folic acid (FOLVITE) 1 mg tablet 09/01/2021 02/28/21 -- Martina Elizabeth PA Take 1 tablet (1 mg total) by mouth daily after lunch losartan (COZAAR) 25 mg tablet 09/01/2021 -- -- Mesha Greer MD methotrexate 2.5 mg tablet 08/31/2021 02/28/21 -- Martina Elizabeth PA Take 5 tablets (12.5 mg total) by mouth every 7 days Every Sunday nicotine (NICODERM CQ) 21 mg 09/01/2021 -- -- Mesha Greer MD omega 4-pob-mjr-fish oil 100-160-1,000 mg capsule 08/31/2021 -- -- ProviderMesha MD Current Outpatient Medications: ??? acetaminophen (TYLENOL) 500 [...] ??? losartan (COZAAR) 25 mg tablet ??? methotrexate 2.5 mg tablet ??? nicotine (NICODERM CQ) 21 mg ??? omega 5-xyy-rzk-fish oil 100-160-1,000 mg capsule Social History Tobacco Use Smoking Status Former Smoker ??? Packs/day: 0.25 ??? Years: 50.00 ??? Pack years: 12.50 ??? Start date: 1968 ??? Quit date: 2014 ??? Years since quittin.3 Smokeless Tobacco Never Used Substance and Sexual Activity Alcohol Use Never Substance and Sexual Activity Drug Use Never Comment: CBD topical Family History Problem Relation Age of Onset ??? Breast cancer Other Family history of malignant neoplasm of breast - Relation: Aunt (Added by TW Conv) ??? Colon cancer Other Family history of colon cancer - Relation: Uncle (Added by TW Conv) PAT Physical Exam Airway Exam: Mallampati: I Cervical ROM: FROM TM distance: 3 Upper lip bite test class: 1 Cardiovascular Exam: Rate: regular Rhythm: regular Negative for Murmur No extra heart sounds appreciated Negative for peripheral edema Pulmonary Exam: LCTA, bilat EENT Exam: trachea midline Dental Exam: Appears intact Skin Exam: Skin is warm. Abdominal exam: Abdomen is soft. Bowel sounds are present. Current state: Patient's current state is cooperative and interactive. Vitals: 09/01/21 1610 09/01/21 1615 BP: 117/60 118/57 Pulse: 66 Resp: 18 SpO2: 99% Relevant diagnostics: ECG(s): N/A Echocardiogram(s): N/A Stress test(s): N/A Cardiac catheterization(s): N/A PFT(s): 09-01-21 Vascular studies: N/A Other: N/A PT: No results found for requested labs [...] for requested labs within last 720 hours. STOP-Bang Total Score: 2 Maren index score: 100 AD8 Dementia Score: 0 Short Blessed Total Score: 4 DOS Physical Exam Medical history, medications, and allergies reviewed. Attestation: This PAT evaluation 09/12/2021. Airway Exam: Mallampati: II Cervical ROM: FROM Cardiovascular Exam: Rate: regular Pulmonary Exam: LCTA Anesthesia Plan ASA 3 My patient is approved for the Anesthesia Controlled Medication protocol when under care of a HRIS ANALYST Planned anesthesia: MAC Invasive Monitors Planned: Invasive monitors planned: arterial line. Informed Consent: Discussed plan with resident. Anesthesia plan and risks discussed with patient. Consent and Attending signature: I and/or my [...] Procedure Name Priority Date/Time Associated Diagnosis Comments ANESTHESIA INTUBATION Routine 09/12/2021 11:04 AM CDT documented in this encounter Results * Airway (09/12/2021 11:04 AM CDT) Narrative Harley Palomo MD - 09/12/2021 11:04 AM CDT Harley Palomo MD ? 09/12/2021 11:06 AM Airway Patient location: OR Urgency: elective Indications for airway management: anesthesia Difficult airway: no Staff: Supervising provider: Fernanda Colunga MD Placed by: Resident: Harley Palomo MD Emergent airway documentation: Risks and benefits discussed: yes Airway prep: Preoxygenated: yes Patient position: sniffing Mask difficulty assessment: 0 - not attempted Sedation level during airway: GA Final airway details: Final airway type: endotracheal airway Tube type: ETT - double lumen left ETT double lumen: 35 fr Cuffed: yes Technique used for successful ETT placement: video laryngoscopy Insertion site: oral Blade type: Rosa Video blade type: [place] Blade size: 3 Cormack-Lehane (video): grade I - full view of glottis Placement verified by: bronchoscopy and CO2 detection Airway secured with: silk tape Number of attempts: 1 us Harley Palomo MD ANESTHESIA ORDERABLES Lupe de la fuente Result documented in this encounter Visit Diagnoses Not on filedocumented in this encounter Administered Medications Inactive Administered Medications - up to 3 most recent administrations Medication Order MAR Action Action Date Dose Rate Site ceFAZolin (ANCEF) 2,000 mg/20 mL in sterile water (premix) 2,000 mg 2,000 mg, intravenous, at 400 mL/hr, Administer over 3 Minutes, Once, On Sun09/12/21 at 1045, For 1 dose, Intra-Op, Administer within 60 minutes of incision., Indications: Prophylaxis, SurgicalIndications:Prophylaxis , Surgical Given 09/12/2021 10:21 AM CDT 2,000 mg fentaNYL (SUBLIMAZE) preservative free injection intravenous, As needed, Starting on Sun09/12/21 at 1006, Anesthesia Intra-op Given 09/12/2021 10:06 AM CDT 100 mcg HYDROmorphone (DILAUDID) injection intravenous, Administer over 2 Minutes, As needed, Starting on Sun09/12/21 at 1123, Anesthesia Intra-op Given 09/12/2021 12:48 PM CDT 0.2 mg Given 09/12/2021 12:38 PM CDT 0.2 mg Given 09/12/2021 11:23 AM CDT 0.2 mg Lactated Ringer's (LR) infusion 30 mL/hr, intravenous, Continuous, Starting on Sun09/12/21 at 0930 Restarted 09/12/2021 12:49 PM CDT Rate/Dose Verify 09/12/2021 10:01 AM CDT 30 mL/ hr New Bag 09/12/2021 9:44 AM CDT 30 mL/hr 30 mL/hr lidocaine (cardiac) (XYLOCAINE) preservative free injection intravenous, As needed, Starting on Sun09/12/21 at 1006, Anesthesia Intra-op, Indications: Ventricular ArrhythmiasIndications:Ventricular Arrhythmias Given 09/12/2021 10:06 AM CDT 60 mg ondansetron (ZOFRAN) injection intravenous, Administer over 2 Minutes, As needed, Starting on Sun09/12/21 at 1222, Anesthesia Intra-op Given 09/12/2021 12:22 PM CDT 4 mg phenylephrine (ELIZABETH-SYNEPHRINE) 1 mg/10 mL (100 mcg/mL) in sodium chloride 0.9% (premix) intravenous, As needed, Starting on Sun09/12/21 at 1006, Anesthesia Intra-op Given 09/12/2021 11:06 AM CDT 100 mc g Given 09/12/2021 10:06 AM CDT 100 mcg phenylephrine (ELIZABETH-SYNEPHRINE) 5 mg/50 mL (100 mcg/mL) in sodium chloride 0.9% (premix) intravenous, Continuous PRN, Starting on Sun09/12/21 at 1005, Anesthesia Intra-op Rate/Dose Change 09/12/2021 12:26 PM CDT 0.4 mcg/kg/min 14.448 mL/hr Rate/Dose Change 09/12/2021 11:39 AM CDT 0.7 mcg/kg/min 25 .284 mL/hr Rate/Dose Change 09/12/2021 11:21 AM CDT 0.5 mcg/kg/min 18 .06 mL/hr propofoL (DIPRIVAN) 10 mg/mL IV intravenous, As needed, Starting on Sun09/12/21 at 1006, Anesthesia Intra-op Given 09/12/2021 10:06 AM CDT 100 mg rocuronium (ZEMURON) injection intravenous, As needed, Starting on Sun09/12/21 at 1021, Anesthesia Intra-op Given 09/12/2021 12:14 PM CDT 10 mg Given 09/12/2021 11:45 AM CDT 10 mg Given 09/12/2021 11:01 AM CDT 10 mg succinylcholine (ANECTINE) injection intravenous, As needed, Starting on Sun09/12/21 at 1006, Anesthesia Intra-op Given 09/12/2021 10:06 AM CDT 60 mg sugammadex (BRIDION) 100 mg/mL intravenous solution intravenous, As needed, Starting on Sun09/12/21 at 1234, Anesthesia Intra-op Given 09/12/2021 12:34 PM CDT 200 mg documented in this encounter Care Teams Freight Breaker Relationship Specialty Start Date End Date YuliaCodeyeDO PCP - General Internal Medicine 01/03/18 05/14/22 Wilmer Taylor MD [address] [address] Referring Physician Obstetrics and Gynecology 05/09/12 Jeffrey Koch MD [address] [place] [address] Consulting Physician Rheumatology 02/03/21 documented as of this encounter
--- OUTSIDE RECORDS SUMMARY | 2024-05-03 02:51 | XMS_ITS | Encounter Summary ---
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] Procedures [place] ANRCT XM SURG REQ ANES GENERAL SPI/EDRL DX Rectal Exam Under Anesthesia, Acetic Acid Staining, Excision of Anal Lesions with Biopsies Referral ID Status Reason Start Date Expiration Date Visits Re quested Visits Authorized [id number] 1 1 Encounter Details Date Type Department Care Team (Late st Contact Info) Description 06/07/2022 7:30 AM WRAPPING CHECKER - 06/07/2022 8:30 AM WRAPPING CHECKER Surgery [facility] Operating Room [address] [place] [address] Luz Lewis MD [address] [facility] [address] [place] [address] Rectal Exam Under Anesthesia, Acetic Acid Staining, Excision of Anal Lesions with Biopsies Surgery Details Date/Time Status Location OR Service Patient Class Case Cl ass Case Type Trauma Case? 06/07/2022 7:30 AM Posted [facility] OPERATING ROOM OR Colorectal Outpatient Elective Panel 1 Procedure LRB Anes Op Region Wound Class Comments Rectal Exam Under Anesthesia, Acetic Acid Staining, Excision of Anal Lesions with Biopsies N/A Monitor Anesthesia Care Class II - [...] on file Legal Sex Female 10:10 AM WRAPPING CHECKER Gender Identity Not on file Sexual Orientation Not on file documented as of this encounter Last Filed Vital Signs Vital Sign Reading Time Taken Comments Blood Pressure 126/56 06/07/2022 8:25 AM WRAPPING CHECKER Pulse 67 06/07/2022 8:30 AM WRAPPING CHECKER Temperature 36.1 ??C (97 ??F) 06/07/2022 7:52 AM WRAPPING CHECKER Respiratory Rate 17 06/07/2022 8:30 AM WRAPPING CHECKER Oxygen Saturation 91% 06/07/2022 8:30 AM WRAPPING CHECKER Inhaled Oxygen Concentration - - Weight 64.7 kg (142 lb 10.2 oz) 06/07/2022 6:10 AM WRAPPING CHECKER Height 160 cm (5' 3 ) 06/07/2022 6:10 AM WRAPPING CHECKER Body Mass Index 25.27 06/07/2022 6:10 AM WRAPPING CHECKER documented in this encounter Discharge Instructions * Attachments The following attachments cannot be sent through Care Everywhere. * Anxiolysis in Adults (AfterCare(R) Instructions(ER/ED)) (Colombian) documented in this encounter Medications at Time [...] total) by mouth every morning 02/26/2021 omega 1-cme-pmg-fish oil 100-160-1,000 mg capsuleIndicatio ns:hypertriglyce ridemia Take [...] his last seen in clinic. Consent obtained. PING CHECKER Source Note - Ramana Magaña MD - 06/07/2022 6:52 AM WRAPPING CHECKER Images from the original note were not [...] Typical diastolic BP - 80 Pertinent negatives: [place] ; valvular heart disease and atrial fibrillation [...] factor (CMS/HCC) (HCC) ??? Neck pain ??? 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 Malignant [...] 1994 Cyst x2 removed from overies ??? [place] UNLISTED PROCEDURE BREAST Right 1977 Cyst removed [...] -- -- -- Mesha Greer MD omega 6-hfh-egw-fish oil 100-160-1,000 mg capsule -- -- -- [...] Medication protocol when under care of a KIER PLEATER Planned anesthesia: General/TIVA Induction: Induction: intravenous. Postoperative Plan: Patient's planned disposition post procedure is Outpatient. Informed Consent: Discussed plan with KIER PLEATER. Anesthesia plan and risks discussed with patient [...] and agree to proceed. All questions answered. PING CHECKER documented in this encounter Miscellaneous Notes * Perioperative Nursing Note - Prakash Stoddard RN - 06/07/2022 7:51 AM CST Dressing: gauze and mesh underwear PING CHECKER * Op Note - Luz Lewis MD [...] the entire procedure from start to finish PING CHECKER documented in this encounter Plan of Treatment Not on file documented as of this encounter Procedures Procedure Name Priority Date/Time Associated Diagnosis Comments SURGICAL PATHOLOGY Routine 06/07/2022 7: 45 AM WRAPPING CHECKER AIN grade III EXAM UNDER ANESTHESIA 06/07/2022 7:22 AM WRAPPING CHECKER AIN grade III documented in this encounter Results * Surgical pathology (06/07/2022 7:45 AM WRAPPING CHECKER) Tissue (Soft tissue biopsy) 06/07/2022 7:45 AM WRAPPING CHECKER Narrative PATHOLOGY [facility] - 2022 8:10 AM WRAPPING CHECKER [address] ??[address] Tele: ?? Katherine Rosales MD - Engineering Clerk Note to Patients: This report may contain [...] details. SURGICAL PATHOLOGY REPORT Patient Name: ??DARRION CAALAnkush Address: ??[facility] [place], [place] [address] Gender: ??F : ??1950 (Age: 71) Service: ??Surgery Location: ??[facility] OR POOL, ?? Hospital #: ??[id number] Patient Type: ??[facility] SAME DAY SURGERY Accession #: ? [id number] Taken: ? 06/07/2022 Received ? 06/07/2022 Reported: ? 2022 Physician(s): ? Luz Lewis M.D. DIAGNOSIS: Perianal biopsies: ? 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 ? - Additional fragments of benign anorectal mucosa. dje/06/08/2022 08:10 Examining Pathologist: Gabriele Rutherford M.D. Report [...] and submitted entirely in cassette A1. ?? [facility] MICROSCOPIC DESCRIPTION: Microscopic examination supports the above captioned diagnosis. Clerical Data Follows A; [id number], [id number] <CR>, [id number] REPORT IMAGES AND/OR SCANNED DOCUMENTS ONLY VIEWABLE IN PDF FORMAT The immunohistochemical test(s) cited in this report, if any, was developed and its performance characteristics determined by [facility] Pathology Department. ??It has not been cleared or approved by the U.S. Food and Drug Administration. ??The FDA has determined that such clearance or approval is not necessary. ??This test is used for clinical purposes. ??It should not be regarded as investigational or for research. ??[facility] Laboratory is certified under the Clinical Laboratory [...] MD LAB PATHOLOGY ORDERABLES Final Result PATHOLOGY [facility] Laboratory [address] [address] documented in this encounter Visit Diagnoses Diagnosis [...] arrival to holding area. , Indications: Pre-Emptive AnalgesiaIndications:Pre- Emptive Analgesia Given 06/07/2022 6:18 AM WRAPPING CHECKER 1,000 mg acetic acid (bulk) 5 % topical solution As needed, Starting on Sun06/07/22 at 0744, Intra-Op Given 06/07/2022 7:44 AM WRAPPING CHECKER 10 mL Carrier Fluids for Secondary Infusion - 0.9% [...] arrival to holding area. , Indications: Pre-Emptive AnalgesiaIndications:Pre- Emptive Analgesia Given 06/07/2022 6:18 AM WRAPPING CHECKER 300 mg Lactated Ringer's (LR) infusion 30 mL/hr, intravenous, Continuous, Starting on Sun06/07/22 at 0730, Pre-Op, New Bag 06/07/2022 7:21 AM WRAPPING CHECKER lidocaine 1% w/ EPINEPHrine 1:100,000 (20 mL), bupivacaine 0.25% (20 mL), sodium bicarbonate 8.4% (8 mL) solution As needed, Starting on Sun06/07/22 at 0745, Intra-Op Given 06/07/2022 7:45 AM WRAPPING CHECKER 30 mL sodium chloride 0.9% flush 0.5-20 mL 0.5-20 mL, intra-catheter, As needed, line care, Starting on Sun06/07/22 at 0557, Pre-Op, Flush volume based on line type and size. Flush before and after each use. sodium chloride 0.9% irrigation As needed, Starting on Sun06/07/22 at 0745, Intra-Op Given 06/07/2022 7:45 AM WRAPPING CHECKER 500 mL Other (Comment) documented in this encounter Active and Recently Administered Medications Times are shown in WRAPPING CHECKER. Scheduled Medication Order 06/05/2022 06/06/2022 06/07/2022 acetaminophen [...] (TYLENOL) tablet 1,000 mg 1 0 06/07/2022 albuterol 2.5 mg /3 mL (0.08 3 %) nebulizer solution 2.5 mg 1 06/07/2022 Carrier Fluids for Secondary Infusion - 0.9% Sodium Chloride 1 06/07/2022 dextrose (D10W) 10% bolus 250 mL 1 06/07/19 23 diphenhydrAMINE (BENADRYL) i njection 12.5 mg 1 06/07/2022 fentaNYL (SUBLIMAZE) preserv ative free injection 25 mcg 1 06/07/2022 gabapentin (NEURONTIN) capsule 200 mg 1 haloperidol (HALDOL) injection 1 mg 1 06/07 HYDROmorphone (DILAUDID) injection 0.2 mg 1 06/07/2022 HYDROmorphone (DILAUDID) injection 0.4 mg 1 06/07/2022 labetaloL (NORMODYNE,TRANDAT E) injection 5 mg 1 06/07/2022 Lactated Ringer's (LR) infusion 1 3 lidocaine PF (XYLOCAINE) 10 mg/mL (1 %) [...] chloride 0.9% flush 0.5-20 mL 2 05/24 Diet Count Last Ordered Date First Orde [...] 06/07/2022 documented in this encounter Care Teams Care Program Resident Relationship Specialty Start Date End Date Sin Mcclure MD [address] [place] [address] PCP - General Internal Medicine 05/15/22 11/28/22 Wilmer Taylor MD [address] [address] Referring Physician Obstetrics and Gynecology 05/09/12 Jeffrey Koch MD [address] [place] [address] Consulting Physician Rheumatology 02/03/21 Luz Lewis MD [address] [place] [address] Referring Physician Surgery 12/14/21 documented as of this encounter
--- OUTSIDE RECORDS SUMMARY | 2024-05-03 02:51 | XMS_ITS | Encounter Summary ---
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] Procedures NE THORACOSCOPY SURG LOBECTOMY NA Referral ID Status Reason Start Date Expiration Date Visits Re quested Visits Authorized [id number] 1 1 Encounter Details Date Type Department Care Team (Latest Contact Info) Description 09/13/2021 9:27 AM CDT - 09/13/2021 11:59 PM CDT Hospital Encounter [facility] Radiology [address] [place] [address] Discharge Disposition: Discharge to home or self [...] on file Legal Sex Female 10: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 Maribel Walker TOOL ROOM SUPERVISOR IMG XR PROCEDURES Final Result documented in this encounter Visit Diagnoses Not on filedocumented in this encounter Care Teams Ios Programmer Relationship Specialty Start Date End Date Terry Bender DO PCP - General Internal Medicine 01/03/18 05/14/22 Wilmer Taylor MD [address] [facility] [address] [place] [address] Referring Physician Obstetrics and Gynecology 05/09/12 Jeffrey Koch MD [address] [place] [address] Consulting Physician Rheumatology 02/03/21 documented as of this encounter
--- OUTSIDE RECORDS SUMMARY | 2024-05-03 02:51 | XMS_ITS | Encounter Summary ---
Author Organization [facility] Address [address] [facility] [address] [place] [address] Phone Care Team Providers Care Wire Frame Dipper Name Role Phone Wilmer Taylor MD Unavailable [phone] Jeffrey Koch MD Unavailable [phone] Luz Lewis MD Unavailable [phone] Sin Mcclure MD Primary Care Provider [phone] Encounter Details Date Type Department Care Team (Late st Contact Info) Description 10/05/2022 Telephone [facility] Surgery [address] [facility] [address] [place] [address] Telma Chong RMA Social History [...] on file Legal Sex Female 10:10 AM ECONOMIC DEVELOPMENT COORDINATOR Gender Identity Not on file Sexual Orientation Not on file documented as of this encounter Miscellaneous Notes * Telephone Encounter - Telma Chong RMA - 10/06/2022 8:57 AM CDT Spoke to pt's daughter. She will get pt's CT scheduled * Telephone Encounter - Telma Chong RMA - 10/05/2022 11:53 AM CDT Called pt's daughter Deepika about getting CT scheduled at [facility] no answer left message documented in this encounter Plan of Treatment Not on file documented as of this encounter Visit Diagnoses Not on filedocumented in this encounter Care Teams Wire Frame Dipper Relationship Specialty Start Date End Date Sin Mcclure MD [address] [place] [address] PCP - General Internal Medicine 05/15/22 11/28/22 Wilmer Taylor MD [address] [address] Referring Physician Obstetrics and Gynecology 05/09/12 Jeffrey Koch MD [address] [place] [address] Consulting Physician Rheumatology 02/03/21 Luz Lewis MD [address] [place] [address] Referring Physician Surgery 12/14/21 documented as of this encounter
--- OUTSIDE RECORDS SUMMARY | 2024-05-03 02:51 | XMS_ITS | Encounter Summary ---
Author Organization [facility] Healthcare Address [address] [place] [address] Care Team Providers Care Green Marketing Specialist Name Role Phone Terry Bender DO Primary Care Provider [phone] Wilmer Taylor MD Unavailable [phone] Jeffrey Koch MD Unavailable [phone] Reason for Visit * Auth/Cert Specialty Diagnoses / Procedures Referred By Micah t Referred To Contact Diagnoses History of lobectomy of lung History of lobectomy of lung [Z90.2] Procedures ME THORACOSCOPY SURG LOBECTOMY NA Referral ID Status Reason Start Date Expiration Date Visits Re quested Visits Authorized [id number] 1 1 Encounter Details Date Type Department Care Team (Late st Contact Info) Description 09/12/2021 10:15 AM CDT - 09/12/2021 1:10 PM CDT Surgery [facility] Operating Room [address] [place] [address] Ranjan Cazares MD [address] [facility] [id number] [place] [address] XI ROBOTIC LOBECTOMY Surgery Details Date/Time Status Location OR Service Patient Class Case Class Case Type Trauma Case? 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 Gender Identity Not on file Sexual Orientation Not on file documented as of this encounter Last Filed Vital Signs Vital Sign Reading Time Taken Comments Blood Pressure 110/53 09/12/2021 1:10 PM CDT Pulse 72 09/12/2021 1:10 PM CDT Temperature 36 ??C (96.8 ??F) 09/12/2021 1:00 PM CDT Respiratory Rate 12 09/12/2021 1:10 PM CDT Oxygen Saturation 99% 09/12/2021 1:10 PM CDT Inhaled Oxygen Concentration - - Weight - - Height - - Body Mass Index - - documented in this encounter Discharge Summaries * Maribel Walker NP - 09/14/2021 10:17 AM CDT Inpatient Discharge Summary BRIEF OVERVIEW Admitting Provider: Ranjan Cazares MD Discharge Provider: Ranjan Cazares MD Primary Care Physician at Discharge: Terry Bender DO [phone] Admission Date: 09/12/2021 Discharge Date: 09/14/2021 Admission Location: [facility] Problems/Diagnoses: Active Problems: Hypertension Malignant neoplasm of [...] smoking Commonly known as: NICODERM CQ omega 7-btg-lwk-fish oil 100-160-1,000 mg capsule Take 1 capsule [...] THOR SC [place] 09/27/2021 10:00 AM Ranjan Cazares MD THOR BW B2 [place] 10/10/2021 1:45 PM Martina Elizabeth PA OPERATIONS SUPERVISOR 2ND SHIFT WEB RH None 11/07/2021 11:00 AM Luz [...] Center 10/10/2021 1:45 PM Martina Elizabeth PA OPERATIONS SUPERVISOR 2ND SHIFT WEB RH None 11/07/2021 11:00 AM Luz [...] total) by mouth every morning 02/26/2021 omega 6-chc-fgv-fish oil 100-160-1,000 mg capsuleIndicatio ns:hypertriglyce ridemia Take [...] RN - 09/14/2021 10:13 AM CDT 09/13/21 1040 Discharge Summary Chart reviewed For Medical Necessity [...] Interview Note Information Obtained From: Patient (09/13/21 1040) Admission Source: Home Impression: Xi robotic lobectomy RUL lobectomy and mediastinal lymph node dissection 09/12 Plan Includes: dc chest tube and melissa with post void check by 1500, pain control, assess for home care needs, safe discharge when medically stable Primary Source of Transportation: Does the patient need discharge transport arranged?: No (09/13/21 1040) Health Insurance Coverage: [employer]ence Prescription Coverage: yes Pharmacy: [facility] Primary Care Provider: Terry Bender DO Prior to Admission: Primary Caregiver: Self Support System: Children Support system contact info (name, phone, availablity): Pauline Lozano ([facility]) [phone] Home Care Services: No Durable Medical Equipment: None Living Arrangements: Alone Type of Residence: Private residence Steps in home? : Yes, Outside of home Number of steps outside:: 3 steps (09/13/211039) Potential discharge needs include: Home Health: Other (Comment) (No home care needs identified at this time.) (09/13/211039) Dialysis: Behavioral Health Services: Behavioral Health Services: No (09/13/211039) Patient expects to be Discharged to: Private residence, (09/13/211039) Additional Information: Patient states she lives alone but will be going to her daughter, Pauline's home at discharge. Pauline's address is [address] [place] [address] and number is [phone]. Pauline will be assisting the patient at [...] Collaboration with patient, MD, direct care nurse, Medical Insurance Biller, Nurse Coordinator and other members of the health care team to assure needed interventions completed. 2. Return patient to optimal level of self-care post discharge. 3. Graduation Coach will follow for Discharge Planning - interventions [...] the aftercare plan. Akosua Brar RN * Beba Reeves, PT - 09/13/2021 8:25 AM CDT Physical [...] No Prior Function Prior Function Level of [place]: Independent functional transfers, Independent with ambulation Lives [...] PRN, Grisel Washburn MD, 5 mg at 09/13/21 0052 ??? polyethylene glycol (MIRALAX) packet 17 g, [...] Dietary Orders (From admission, onward) Start Ordered 09/12/21 161 Adult Diet Clear Liquid Diet effective now Question: ([facility]) Diet type Answer: Clear Liquid 09/12/21 1611 [...] M.D. Assessment/Plan COPD (chronic obstructive pulmonary disease) (CMS/HCC) (FORMERLY [facility]) Assessment & Plan - cont inhalers - wean O2 as tolerated Malignant neoplasm of lung (CMS/[facility]ER[facility]) ([facility]) Assessment & Plan RUL lobectomy and mediastinal lymph node dissection - remove chest tube today - remove melissa. Void check ~1500 - pain control dIVP and oral pain meds - ADAT - wean O2 as tolerated - DVT PPX - PT to eval and treat Hypertension Assessment & Plan - restart BP medications as BP tolerates Maribel Walker, GWENDOLYN-C For patients or family members viewing this note through CDC Software programs: This note was written as a [...] History: Procedure Laterality Date ??? OVARY SURGERY 1995 Cyst x2 removed from overies ??? ME BREAST SURGERY PROCEDURE UNLISTED Right 1978 Cyst [...] disease) (CMS/HCC) (FORM[facility]) Assessment & Plan - cont inhalers - wean O2 as tolerated Malignant neoplasm of lung (CMS/HCC) ([facility]) Assessment & Plan RUL lobectomy and mediastinal lymph node dissection - chest tube to thoraguard - no air leak noted - CT suction - monitor I/O - pain control dIVP and oral pain meds - ADAT - wean O2 as tolerated Hypertension Assessment & Plan - restart BP medications as BP tolerates Katharine Robles [facility]- Thoracic Surgery [facility] For patients or family members viewing this note through CDC Software programs: This note was written as a [...] were not included. Ranjan Cazares M.D., M.P.H. gas appliance servicer [facility] - voice - fax [facility] Thoracic Surgery Consult / History [...] much. Yours sincerely, Ranjan Cazares MD, MPH Guest Services completed by using M*Modal Fluency Direct speaking software, therefore, transcriptionvariances may occur. * Ranjan Cazares MD - 09/12/2021 9:17 AM CDT Oh patient seen and examined. History and physical updated. Proceed with lobectomy. Source Note - Ranjan Cazares MD - 09/01/2021 1:30 PM CDT Images from the original note were not included. Ranjan Cazares M.D., M.P.H. gas appliance servicer [facility] - voice - fax [facility] Thoracic Surgery Consult / History [...] a robotic assisted right upper lobe lobectomy. Iis sent a tentative date for September 12. [...] much. Yours sincerely, Ranjan Cazares MD, MPH Guest Services completed by using Myagi*Loopback Direct speaking software, therefore, transcriptionvariances may occur. documented in this encounter Procedure Notes * Maribel Walker NP - 09/13/2021 9:18 AM CDT Procedures Chest Tube Removal Procedure Note Darrion Guillory 1950 09/13/2021 9:18 AM Procedure Details The [...] removed in 7-10 days by any MD, SCHOOL BUS DRIVER, forensic medical examiner. Maribel Walker NP Thoracic Surgery [phone] documented in this encounter Miscellaneous Notes * Plan of Care - Fany Lovell RRT - 09/14/2021 8:17 AM CDT Pt found on Room Air SP02 82. Placed pt on 2L NC. Sp02 currently 91. Breath sounds Dim t/o. Pt received daily Kellyo MDI. Will continue to monitor pt. * Plan of Care - Galen Sharma RN - 09/14/2021 7:50 AM CDT [...] by Deangelo Oliveros, RN Outcome: Progressing Problem: Sensory: Goal: Ability to identify factors that increase the pain will improve 09/13/2021 1040 by Deangelo Oliveros, RN Outcome: Progressing 09/13/2021 1039 by Deangelo Oliveros RN Outcome: Progressing Goal: Pain level will decrease 09/13/2021 1040 by Deangelo Oliveros, RN Outcome: Progressing 09/13/2021 1039 by Deangelo Oliveros, RN Outcome: Progressing Problem: Lack of Knowledge: Goal: Ability to state ways to decrease the risk of falls will improve 09/13/2021 1040 by Deangelo Oliveros RN Outcome: Progressing 09/13/2021 1039 by Deangelo Oliveros RN Outcome: Progressing Problem: Safety: Goal: Will [...] by Deangelo Oliveros RN Outcome: Progressing Problem: Activity: Goal: Ability to avoid complications of mobility impairment will improve 09/13/2021 1040 by Deangelo Oliveros, RN Outcome: Progressing 09/13/2021 1039 by Deangelo Oliveros, RN Outcome: Progressing Problem: Lack of Knowledge: Goal: Ability to demonstrate proper wound care will improve 09/13/2021 1040 by Deangelo Oliveros RN Outcome: Progressing 09/13/2021 1039 by Deangelo Oliveros RN Outcome: Progressing Problem: Respiratory: Goal: Ability [...] placed 3 additional robotic ports and an senior agricultural assistant port. We then docked the robot and [...] MD - Fellow Anesthesiologist: Fernanda Colunga MD [employer] Advisor: Harley Palomo MD Lpn Rn Hospice: Jin Mckee RN; Sonya Chavez RN Scrub: Jay Adair RN; Mario Segura [facility]: Jo Segundo RN DATE OF SURGERY : [...] by: Leo Hamilton III, M.D. Maribel Walker SCHOOL BUS DRIVER IMG XR PROCEDURES Final Result * XR [...] lymph nodes are noted. Dictated by: Mario Greg Hirschi, M.D. The radiology attending physician has personally reviewed this study, and had reviewed and/or edited this written report and agrees with it. Electronically signed by: Gabriele Deluna M.D. Maribel Walker NP IMG XR PROCEDURES Final Result * XR [...] * (ABNORMAL) eGFR (09/12/2021 9:50 PM CDT) Pathologist [facility] eGFR 70(L) 90 - 130 mL/min/1. 73 m2 [facility] Comment: Interpretive Data Reference Interval Normal [...] MD LAB BLOOD ORDERABLES F inal Result [facility] Department of Laboratories [place], [place] [id number] * (ABNORMAL) Basic metabolic panel (09/12/2021 9:50 PM CDT) [facility] Sodium 139 135 - 145 mmol/L [facility] Potassium, pl 4.2 3.3 - 4.9 mmol/L [facility] Chloride 106 97 - 110 mmol/L [facility] CO2 27 22 - 32 mmol/L [facility] Anion gap 6 2 - 15 mmol/L [facility] BUN 14 8 - 25 mg/dL [facility] Creatinine 0.87 0.60 - 1.10 mg/dL [facility] Glucose 103 70 - 199 mg/dL [facility] Comment: Interpretive Data Fasting glucose >/= [...] 2017. Calcium 8.4(L) 8.5 - 10.3 mg/dL [facility] Blood 09/12/2021 9:50 PM CDT 09/12/2021 10:48 PM CDT us Ranjan Cazares MD LAB BLOOD ORDERABLES F inal Result [facility] Department [place] [address] * (ABNORMAL) CBC without differential (09/12/2021 9:50 PM CDT) Pathologist [facility] WBC 12.4(H) 3.8 - 9.9 K/cumm [facility] Hgb 10.3(L) 11.9 - 15.5 g/dL [facility] Hct 31.7(L) 35.6 - 45.5 % [facility] Plt 187 150 - 400 K/cumm [facility] MPV 10.3 9.1 - 12.3 fL [facility] RBC 3.07(L) 3.90 - 5.20 M/cumm [facility] MCV 103.3(H) 81.3 - 96.4 fL [facility] MCH 33.6(H) 27.1 - 33.3 pg [facility] MCHC 32.5 32.3 - 35.7 g/dL [facility] RDW CV 14.6 11.1 - 14.9 % [facility] RDW SD 55.1(H) 35.7 - 48.1 fL [facility] NRBC abs 0.00 0.00 - 0.01 K/cumm [facility] Blood 09/12/2021 9:50 PM CDT 09/12/2021 10:47 PM CDT us Ranjan Cazares MD LAB BLOOD ORDERABLES F inal Result [facility] Department [place] [address] * XR Chest 1 View - in [...] tumor) 09/12/2021 12:22 PM CDT Narrative PATHOLOGY [facility] - 09/16/2021 4:47 PM CDT EPIC results best viewed via link to PDF [facility] [place] [address] Note to Patients: This report may contain [...] Gender: ??F : ??1950 (Age: 71) Address: ??[address] [place] [id number] Hospital #: ??[id number] Taken:09/12/2021 Received:09/12/2021 Reported: 09/16/2021 Patient Type: [facility] Inpatient ?? Service: Surgery Location: [place] [address] Physician(s): ??Ranjan Cazares M.D. Grisel Washburn M.D. Scott Vázquez MD Diagnosis: A. Lymph node, level 8, [...] (0/2) - Uninvolved lung with emphysematous changes [facility]/09/15/2021 12:34 By this signature, I attest that [...] lesion #3, H7- uninvolved lung. ??Jar 2 [facility]/09/13/2021 13:27 Gross Resident:Paulette Lai D.O. ? CANCER [...] Surgical Pathology and Flow Cytometry Departments at [facility] as part of an ongoing supervisor vendor quality program and in compliance with federally mandated [...] Surgical Pathology and Flow Cytometry Departments of [facility]. ??It has not been cleared or approved by the U. S. Food and Drug Administration. IMAGES AND SCANNED DOCUMENTS, IF INCLUDED, ONLY VIEWABLE IN PDF VERSION OF REPORT us Ranjan Cazares MD LAB PATHOLOGY ORDERABL ES Final Result PATHOLOGY [facility] 3rd Floor [place], [place] [phone] documented in this encounter Visit Diagnoses Diagnosis History of lobectomy of lung- Primary History of lobectomy of lung Bronchogenic lung cancer, right (HCC) History of lobectomy of lung documented in this encounter Admitting Diagnoses Diagnosis [...] Given 09/13/2021 5:22 PM CDT 1,000 mg aspirin enteric coated tablet 81 mg 81 mg, oral, Daily after lunch, First dose on Sun09/13/21 at 1230, Do not crush, chew, cut, dissolve, open or otherwise manipulate tablet/capsule., Indications: prevention of thrombosisIndications:preventio n of thrombosis Given 09/13/2021 12:53 PM CDT 81 mg bupivacaine-EPINEPHrine (MARCAINE with EPI) 0.5 %-1:200,000 preservative free injection As needed, Starting on Sun09/12/21 at 1224, Intra-Op Given 09/12/2021 12:24 PM CDT 20 mL enoxaparin (LOVENOX) syringe 40 mg 40 mg, [...] inhaler 1 puff 1 puff, inhalation, Daily (respiratory equipment assistant), First dose on Sun09/12/21 at 1645 Given 09/14/2021 8:10 AM CDT 1 puff Given 09/13/2021 8:05 AM CDT 1 puff gabapentin (NEURONTIN) capsule 100 mg 100 mg, oral, 3 times daily, First dose on Sun09/12/21 at 1645 Given 09/14/2021 9:19 AM CDT 100 mg Given 09/13/2021 9:15 PM CDT 100 mg Given 09/13/2021 5:22 PM CDT 100 mg methocarbamoL (ROBAXIN) tablet 750 mg 750 mg, [...] Given 09/13/2021 2:32 PM CDT 10 mL sodium chloride 0.9% infusion Continuous PRN, Starting on Sun09/12/21 at 1051, Intra-Op New Bag 09/12/2021 10:51 AM CDT 100 mL/hr 100 mL/hr documented in this encounter Discontinued Medications [...] 0938 (Given - Provider: Quyen Ayala RN) acetaminophen (TYLENOL) tablet 1,000 mg(Linked Group 1) 1,000 mg, oral, Every 6 hours scheduled, First dose on Sun09/12/21 at 1800, If able to swallow medications., Indications: Pain 1742 (Given - Provider: Deangelo Oliveros, DIGNA)2335 (Given - Provider: Nicola Goddard, DIGNA) 0508 (Given - Provider: Nicola Goddard, DIGNA)1253 (Given - Provider: Deangelo Oliveros RN)1722 (Given - Provider: Deangelo Oliveros, DIGNA)2323 (Given - Provider: Ranjan Price, RN) 0547 (Given - Provider: Ranjan Price, DIGNA)1200 (Due) albumin 5 % bottle 12.5 g [...] of thrombosis 1253 (Given - Provider: Deangelo Oliveros RN) ceFAZolin (ANCEF) 2,000 mg/20 mL in sterile [...] Thrombosis Prevention 2021 (Given - Provider: Nicola Goddard RN) 211 (Given - Provider: Ranjan Price, DIGNA) famotidine (PEPCID) tablet 20 mg 20 mg, oral, Every morning, First dose on Sun09/13/21 at 0900, Indications: gastroesophageal reflux disease 0830 (Given - Provider: Deangelo Oliveros RN) 0919 (Given - Provider: Galen Sharma RN) fluticasone furoate-vilanteroL (BREO ELLIPTA) 100-25 mcg/dose inhaler 1 puff 1 puff, inhalation, Daily (respiratory equipment assistant), First dose on Sun09/12/21 at 1645 1721 (Not Given - Provider: Sadaf Ag RRT - Reason: Medication not available) 0805 (Given - Provider: Sadaf Ag RRT) 0810 (Given - Provider: Fany Lovell RRT) gabapentin (NEURONTIN) capsule 100 mg 100 mg, oral, 3 times daily, First dose on Sun09/12/21 at 1645 1742 (Given - Provider: Deangelo Oliveros, DIGNA)2023 (Not Given - Provider: Nicola Goddard RN - Reason: Contraindicated - Comment: too close last dose) 0830 (Given - Provider: Deangelo Oliveros RN)172 (Given - Provider: Deangelo Oliveros, RN)2114 (Given - Provider: Ranjan Price RN) 918 (Given - Provider: Galen Sharma RN) gabapentin (NEURONTIN) capsule 300 mg (COMPLETED) [...] Oliveros RN)1253 (Given - Provider: Deangelo Oliveros RN)172 (Given - Provider: Deangelo Oliveros RN)2114 (Given - Provider: Ranajn Price RN) 0919 (Given - Provider: Galen Sharma, RN)1200 (Due) polyethylene glycol (MIRALAX) packet 17 g 17 g, oral, Daily, First dose on Sun09/13/21 at 0900, Indications: constipation 0830 (Given - Provider: Deangelo Oliveros RN) 0920 (Given - Provider: Galen Sharma, RN) senna (SENOKOT) tablet 1 tablet(Linked Group 2) 1 tablet, oral, 2 times daily, First dose on Sun09/12/21 at 2100, If able to swallow medications. Hold for diarrhea., Indications: constipation 2021 (Given - Provider: Nicola Goddard RN) 0830 (Given - Provider: Deangelo Oliveros RN)2114 (Given - Provider: Ranjan Price RN) 0919 (Given - Provider: Galen Sharma, RN) sodium chloride 0.9% flush 0.5-20 mL 0.5-20 mL, intra-catheter, Every 8 hours scheduled, First dose on Sun09/12/21 at 1645, Flush volume based on line type and size. , Indications: Flushing 1656 (Not Given - Provider: Deangelo Oliveros RN - Reason: IV Infusing)2023 (Given - Provider: Nicola Goddard RN) 0508 (Given - Provider: Nicola Goddard RN)1432 (Given - Provider: Deangelo Oliveros, DIGNA)2115 (Given - Provider: Ranjan Price RN) 0548 (Given - Provider: Ranjan Price RN) [...] Indications: Pain 1348 (Given - Provider: Betty Garland RN) ondansetron (ZOFRAN) injection 8 mg 8 mg, intravenous, Administer over 2 Minutes, Every 6 hours PRN, nausea, vomiting, Starting on Sun09/12/21 at 1611, Administer no sooner than 6 hours after last dose. , Indications: Nausea and Vomiting 2022 (Given - Provider: Nicola Goddard RN) oxyCODONE (ROXICODONE) tablet 5 mg (COMPLETED) 5 [...] Count Last Ordered Date First Ordered Date polyethylene glycol (MIRALAX) packet 17 g 1 09/13/2021 acetaminophen (TYLENOL) 32 m g/mL oral solution 1,000 mg 1 09/12/2021 acetaminophen (TYLENOL) suppository 650 mg 1 09/12/2021 acetaminophen (TYLENOL) tablet 1,000 mg 3 0 09/12/2021 albumin 5 % bottle 12.5 g 1 09/12/2021 aspirin enteric coated tablet 81 mg 1 09/12 ceFAZolin (ANCEF) 2,000 mg/2 0 mL in sterile water (premix) 2,000 mg 1 09/12/2021 diphenhydrAMINE (BENADRYL) i njection 12.5 mg 1 09/12/2021 enoxaparin (LOVENOX) syringe 40 mg 1 2021 famotidine (PEPCID) tablet 20 mg 1 09/13/19 fluticasone furoate-vilanter oL (BREO ELLIPTA) 100-25 mcg/dose inhaler 1 puff 1 09/12/2021 gabapentin (NEURONTIN) capsule 100 mg 1 gabapentin (NEURONTIN) capsule 300 mg 1 haloperidol (HALDOL) injection 0.5 mg 1 heparin 5,000 unit/mL inject ion 5,000 Units 1 09/12/2021 HYDROmorphone (DILAUDID) injection 0.2 mg 1 09/12/2021 HYDROmorphone (DILAUDID) injection 0.4 mg 1 09/12/2021 ibuprofen (ADVIL,MOTRIN) tablet 600 mg 1 ipratropium-albuteroL (DUO-N EB) 0.5-2.5 mg/3 mL nebulizer solution 3 mL 1 09/12/2021 Lactated Ringer's (LR) infusion 2 methocarbamoL (ROBAXIN) tablet 750 mg 1 naloxone (NARCAN) 0.4 mg/mL injection 0.04-0.4 mg 1 09/12/2021 ondansetron (ZOFRAN) injection 8 mg 1 09/12 oxyCODONE (ROXICODONE) tablet 5 mg 2 2021 senna (SENOKOT) tablet 1 tablet 1 senna 1.76 mg/mL syrup 8.8 mg 1 09/12/2021 sodium chloride 0.9% flush 0.5-20 mL 3 08/22 sodium chloride 0.9% solution 1,000 mL 1 [...] 09/12/2021 documented in this encounter Care Teams Green Marketing Specialist Relationship Specialty Start Date End Date Terry Bender DO PCP - General Internal Medicine 01/03/18 05/14/22 Wilmer Taylor MD [address] [address] Referring Physician Obstetrics and Gynecology 05/09/12 Jeffrey Koch MD [address] [place] [address] Consulting Physician Rheumatology 02/03/21 documented as of this encounter
--- OUTSIDE RECORDS SUMMARY | 2024-05-03 02:51 | XMS_ITS | Encounter Summary ---
Author Organization [facility] Healthcare Address [address] [place] [address] Care Team Providers Care Director Alliance [employer] Name Role Phone Terry Bender DO Primary Care Provider Wilmer Taylor MD Unavailable [phone] Jeffrey Koch MD Unavailable [phone] Reason for Referral * Diagnostic Imaging (Routine) - Closed Specialty Diagnoses / Procedures Referred By Micah barajas Referred To Contact Diagnoses Malignant neoplasm of upper lobe of right lung (HCC) Procedures XR Chest Pa Lateral 2 Views Ranjan Cazares MD [address] [facility] [address] [place] [address] Phone: tel: fax: [place] [address] [place] [address] Referral ID Status Reason Start Date Expiration Date Visits Re quested Visits Authorized [id number] Closed 09/26/2021 10/26/2022 1 1 Reason for Visit * Diagnostic Imaging (Routine) - Closed Specialty Diagnoses / Procedures Referred By Contac t Referred To Contact Diagnoses Malignant neoplasm of upper lobe of right lung (HCC) Procedures XR Chest Pa Lateral 2 Views Ranjan Cazares MD [address] [facility] [address] [place] [address] Phone: tel: fax: [facility] [place] [address] Referral ID Status Reason Start Date Expiration Date Visits Re quested Visits Authorized [id number] Closed 09/26/2021 10/26/2022 1 1 Encounter Details Date Type Department Care Team (Latest Contact Info) Description 09/27/2021 8:48 AM CDT - 09/27/2021 11:59 PM CDT Hospital Encounter [facility] Imaging [id number] [id number] Malignant neoplasm of upper lobe of right lung (CMS/HCC) (HCC) Discharge Disposition: Discharge to home or [...] on file 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 Gender Identity Not on file Sexual [...] total) by mouth every morning 02/26/2021 omega 2-vdc-cod-fish oil 100-160-1,000 mg capsuleIndicatio ns:hypertriglyce ridemia Take [...] as needed for pain 20 tablet 09/14/2021 documented as of this encounter Discharge Disposition Disposition Code Departure Means Destination Discharge to home or self care documented in this encounter Plan of Treatment Not on file documented as of this encounter Procedures Procedure Name Priority Date/Time Associated Diagnosis Comments XR CHEST PA LATERAL 2 VIEWS Schedule Routine, Read Routine (OP Routine) 09/27/2021 8:56 AM CDT Malignant neoplasm of upper lobe of right lung (CMS/HCC) (HCC) documented in this encounter Results * XR [...] (HCC) documented in this encounter Care Teams Director Alliance Marketing Relationship Specialty Start Date End Date Terry Bender DO PCP - General Internal Medicine 01/03/18 05/14/22 Wilmer Taylor MD [address] [address] Referring Physician Obstetrics and Gynecology 05/09/12 Jeffrey Koch MD [address] [place] [address] Consulting Physician Rheumatology 02/03/21 documented as of this encounter
--- OUTSIDE RECORDS SUMMARY | 2024-05-03 02:51 | XMS_ITS | Encounter Summary ---
Author Organization [facility] Address [address] [place] [address] Phone Care Team Providers Care Social Welfare Administrator Name Role Phone Terry Bender Primary Care Provider [phone] Wilmer Taylor MD Unavailable [phone] Jeffrey Koch MD Unavailable [phone] Luz Lewis MD Unavailable [phone] Reason for Visit * Reason Onset Date Comments MTX Needs PA 03/09/2022 Approved Eff: - 03/09/23 Encounter Details Date Type Department Care Team (Late st Contact Info) Description 03/09/[address] [address] Alycia Jimenez MTX Needs PA (Approved Eff: 03/10/22 - 03/09/23) Social History Tobacco Use Types Packs/Day Years [...] on file Legal Sex Female 10:10 AM HOSPICE CASE MANAGER Gender Identity Not on file Sexual Orientation Not on file documented as of this encounter Miscellaneous Notes * Telephone Encounter - Alycia Jimenez - 03/10/2022 11:59 AM CST Per fax from [facility] [employer] MTX approved eff: 03/10/22 - 03/09/23. Called [facility] @ [phone] & leftvm to inform them MTX approved. ICE CASE MANAGER * Telephone Encounter - Alycia Jimenez - 03/09/2022 3:26 PM CST [facility] reports they need PA for MTX. MTX PA started on Cover [employer]. Morris: [id number] Response pending. ICE CASE MANAGER documented in this encounter Plan of Treatment Not on file documented as of this encounter Visit Diagnoses Not on filedocumented in this encounter Care Teams Social Welfare Administrator Relationship Specialty Start Date End Date Terry Bender DO PCP - General Internal Medicine 01/03/18 05/14/22 Wilmer Taylor MD [address] [facility] [address] [place] [address] Referring Physician Obstetrics and Gynecology 05/09/12 Jeffrey Koch MD [address] [place] [address] Consulting Physician Rheumatology 02/03/21 Luz Lewis MD [address] [place] [address] Referring Physician Surgery 12/14/21 documented as of this encounter
--- OUTSIDE RECORDS SUMMARY | 2024-05-03 02:51 | XMS_ITS | Encounter Summary ---
Author Organization [facility] Address [address] [facility] [address] [place] [address] Phone Care Team Providers Care Eap Consultant Name Role Phone Terry Bender DO Primary Care Provider [phone] Wilmer Taylor MD Unavailable [phone] Jeffrey Koch MD Unavailable [phone] Encounter Details Date Type Department Care Team (Late st Contact Info) Description 09/27/2021 Orders Only [facility] Surgery [address] [facility] Advanced Medicine 8th [place] [address] [place] [address] Ranjan Cazares MD [address] [facility] [address] [place], [place] [id number] Malignant neoplasm of lung, unspecified laterality, unspecified [...] on file Legal Sex Female 10:10 AM KEEPER HELPER Gender Identity Not on file Sexual Orientation Not on file documented as of this encounter Plan of Treatment Not on file documented as of this encounter Visit Diagnoses Diagnosis Malignant neoplasm of lung, unspecified laterality, unspecified part of lung (HCC)- Primary documented in this encounter Care Teams Eap Consultant Relationship Specialty Start Date End Date Terry Bender DO PCP - General Internal Medicine 01/03/18 05/14/22 Wilmer Taylor MD [address] [address] Referring Physician Obstetrics and Gynecology 05/09/12 Jeffrey Koch MD [address] [place] [address] Consulting Physician Rheumatology 02/03/21 documented as of this encounter
--- OUTSIDE RECORDS SUMMARY | 2024-05-03 02:51 | XMS_ITS | Encounter Summary ---
Author Organization [facility] Address [address] [facility] [address] [place] [address] Phone Care Team Providers Care Mold Closer Helper Name Role Phone Terry Bender Primary Care Provider [phone] Wilmer Taylor MD Unavailable [phone] Jeffrey Koch MD Unavailable [phone] Luz Lewis MD Unavailable [phone] Encounter Details Date Type Department Care Team (Late st Contact Info) Description 03/31/2022 Orders Only [facility] Surgery [address] [facility] [address] [place] [id number] Ranjan Cazares MD [address] [facility] [address] [place], [place] [id number] Malignant neoplasm of upper lobe of right [...] on file Legal Sex Female 10:10 AM BODYWORK THERAPIST Gender Identity Not on file Sexual Orientation Not on file documented as of this encounter Plan of Treatment Not on file documented as of this encounter Visit Diagnoses Diagnosis Malignant neoplasm of upper lobe of right lung (HCC)- Primary documented in this encounter Care Teams Mold Closer Helper Relationship Specialty Start Date End Date Terry Bender DO PCP - General Internal Medicine 01/03/18 05/14/22 Wilmer Taylor MD [address] [facility] [address] [place] [address] Referring Physician Obstetrics and Gynecology 05/09/12 Jeffrey Koch MD [address] [place] [address] Consulting Physician Rheumatology 02/03/21 Luz Lewis MD [address] [place] [address] Referring Physician Surgery 12/14/21 documented as of this encounter
--- OUTSIDE RECORDS SUMMARY | 2024-05-03 02:51 | XMS_ITS | Encounter Summary ---
Author Organization [facility] Address [address] [place] [address] Phone Care Team Providers Care Hook Up Driver Name Role Phone Terry Bender Primary Care Provider [phone] Wilmer Taylor MD Unavailable [phone] Jeffrey Koch MD Unavailable [phone] Encounter Details Date Type Department Care Team (Late st Contact Info) Description 09/02/[address] 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 Asked her to call if she has additional questions. * Telephone Encounter - Martina Elizabeth PA - 09/02/2021 12:17 PM CDT Let's have her hold MTX 1 week before surgery and 2 weeks after surgery since her post op visit is likely to be 2 weeks out from surgery. Risk of infection during surgery with MTX is usually low and we even will continue MTX with some surgeries but to be on the side of caution we should hold for her surgery. 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 She is scheduled for lobectomy on 09/12/21. Was told to ask if she needs to hold her MTX. She generally doses on Sun. documented in this encounter Plan of Treatment Not on file documented as of this encounter Visit Diagnoses Not on filedocumented in this encounter Care Teams Hook Up Driver Relationship Specialty Start Date End Date Terry Bender DO PCP - General Internal Medicine 01/03/18 05/14/22 Wilmer Taylor MD [address] [place] [address] Referring Physician Obstetrics and Gynecology 05/09/12 Jeffrey Koch MD [address] [facility] [address] Consulting Physician Rheumatology 02/03/21 documented as of this encounter
--- OUTSIDE RECORDS SUMMARY | 2024-05-03 02:51 | XMS_ITS | Encounter Summary ---
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) Sin Mcclure MD [address] [place] [address] Phone: tel: fax: [facility] [address] [place] [address] Phone: tel: fax: Referral ID Status Reason Start Date Expiration Date V isits Requested Visits Authorized [id number] Closed Specialty Services Required 05/12/2022 05/13/2023 3 3 Encounter Details Date Type Department Care Team (Late st Contact Info) Description 05/15/2022 10:30 AM MOLDING CUTTER Office Visit [facility] [address] [place] [address] Martina Elizabeth PA [address] [place] [address] 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) (Primary Dx); 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); Neck pain; longterm current use 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 drug Social History [...] on file Legal Sex Female 10:10 AM MOLDING CUTTER Gender Identity Not on file Sexual Orientation Not on file documented as of this encounter Last Filed Vital Signs Vital Sign Reading Time Taken Comments Blood Pressure 144/78 05/15/2022 10:43 AM MOLDING CUTTER Pulse 67 05/15/2022 10:43 AM MOLDING CUTTER Temperature - - Respiratory Rate - - Oxygen Saturation 95% 05/15/2022 10:43 AM MOLDING CUTTER Inhaled Oxygen Concentration - - Weight 65.5 kg (144 lb 6.4 oz) 05/15/2022 10:43 AM MOLDING CUTTER Height 162.6 cm (5' 4 ) 05/15/2022 10:43 AM MOLDING CUTTER Body Mass Index 24.79 05/15/2022 10:43 AM MOLDING CUTTER documented in this encounter Ordered Prescriptions Prescription Sig Dispense Quantity Refills Last Filled Start Date End Date methotrexate 2.5 mg tabletIndications: Rheumatoid Arthritis Take 5 tablets (12.5 mg total) by mouth every 7 days Every Sunday 60 tablet 1 05/15/2022 folic acid (FOLVITE) 1 mg tabletIndications: Folate Deficiency Take 1 tablet (1 mg total) by mouth daily after lunch 90 tablet 3 05/15/2022 3 documented in this encounter Progress Notes * Martina Elizabeth PA - 05/15/2022 10:30 AM CST Images from the original note were not included. Subjective/Objective Patient ID: Loida Guillory is a 71 y.o. female. Chief Complaint RA HPI Returns for routine follow up and is accompanied by her daughter today. Started alendronate for osteoporosis per PCP. Saw water resource manager 05/02 and noted good progress since lobectomy and no longer has any restrictions. Seeing them again in [address] prior to that visit. Joints remain stable with MTX. Denies any flares. Denies fevers, infections, rashes, mouth [...] Skin: Negative for rash. Vitals: Vitals BP 144/78 Pulse 67 Ht 162.6 cm (5' 4 ) Wt 65.5 kg (144 lb 6.4 oz) SpO2 95% BMI 24.79 kg/m?? Body mass index is 24.79 kg/m??. Bold X is a current medication. [...] Labs Lab Results Component Value Date WBC 8.8 01/16/2022 HGB 13.1 01/16/2022 HCT 38.2 01/16/2022 MCV 94.8 01/16/2022 Lab Results Component Value Date GLUCOSE 95 01/16/2022 CALCIUM 9.5 01/16/2022 SODIUM 140 01/16/2022 POTASSIUM 4.1 01/16/2022 CO2 24 01/16/2022 CHLORIDE 105 01/16/2022 BUNSER 19 01/16/2022 CREATININE 0.88 01/16/2022 Lab Results Component Value Date ALT 14 01/16/2022 AST 16 01/16/2022 ALKPHOS 73 01/16/2022 BILITOT 0.5 01/16/2022 Lab Results Component Value Date SEDRATE 36 (H) 01/16/2022 Lab Results Component Value Date CRP 1.7 01/16/2022 Assessment/Plan Diagnoses and all orders for this visit: 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) ([facility]) (Primary) Assessment & Plan: Low cdai. 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 Denies radiating pain. 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 Patient defers PT and worried about NSAIDs with her current medication regimen. Taking tylenol otc prn with some relief. Using Voltaren gel otc prn with good relief. Continue home exercises. 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 Sooner if needed. ING CUTTER * Assessment & Plan Note - Martina Elizabeth PA - 05/15/2022 10:43 AM CSTAssociated Problem(s): Neck pain Pain worse with activity and improved with rest. Denies radiating pain. 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 Patient defers PT and worried about NSAIDs with her current medication regimen. Taking tylenol otc prn with some relief. Using Voltaren gel otc prn with good relief. Continue home exercises. 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 ERYTHROCYTE SEDIMENTATION RATE Routine 05/15/2022 11:12 AM MOLDING CUTTER 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) termite exterminator 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 use 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 drug CRP (ACUTE PHASE) Routine 05/15/2022 11: 12 AM MOLDING CUTTER 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) termite exterminator current use 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 drug COMPREHENSIVE METABOLIC PANEL Routine 05/15/2022 11:12 AM MOLDING CUTTER 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) termite exterminator current use 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 drug documented in this encounter Results * CRP (acute phase) (05/15/2022 11:12 AM MOLDING CUTTER) C-RP 2.5 <8.0 mg/L [facility] Blood 05/15/2022 11:1 2 AM MOLDING CUTTER 05/15/2022 11:12 AM MOLDING CUTTER Martina JONES LAB BLOOD ORDERABLES Final Result Performing Organization Address [facility] [[email or web address]] de Phone Number QUEST [facility] [address] [place] [address] * (ABNORMAL) Erythrocyte sedimentation rate (05/15/2022 11:12 AM MOLDING CUTTER) Pathologist [facility] Erythrocyte sedimentation rate 38(H) < OR = 30 mm/h [facility] Blood 05/15/2022 11:1 2 AM MOLDING CUTTER 05/15/2022 11:12 AM MOLDING CUTTER Martina JONES LAB BLOOD ORDERABLES Final Result Performing Organization Address [facility] [[email or web address]] de Phone Number QUEST [facility] [address] [place] [address] * (ABNORMAL) CBC with auto differential (05/15/2022 11:12 AM MOLDING CUTTER) [facility] WBC 9.1 3.8 - 10.8 Thousand/u L [facility] RBC, POC 3.99 3.80 - 5.10 Million/uL [facility] Hgb 13.4 11.7 - 15.5 g/dL [facility] Hct 38.1 35.0 - 45.0 % [facility] MCV 95.5 80.0 - 100.0 fL [facility] MCH 33.6(H) 27.0 - 33.0 pg [facility] MCHC 35.2 32.0 - 36.0 g/dL [facility] Rdw 12.2 11.0 - 15.0 % [facility] Platelets 298 140 - 400 Thousand/u L [facility] MPV 10.6 7.5 - 12.5 fL [facility] Neutrophils, abs 6,143 1,500 - 7,800 cells/uL [facility] Lymphocytes, abs 2,066 850 - 3,900 cells/uL [facility] Monocyte abs 664 200 - 950 cells/uL [facility] Eosinophils, abs 146 15 - 500 cells/uL [facility] Basophils, abs 82 0 - 200 cells/uL [facility] Neutrophils 67.5 % [facility] Lymphocyte pct 22.7 % [facility] Monocytes 7.3 % [facility] Eosinophils 1.6 % [facility] Basophils 0.9 % [facility] Blood 05/15/2022 11:1 2 AM MOLDING CUTTER 05/15/2022 11:12 AM MOLDING CUTTER us Martina JONES LAB BLOOD ORDERABLES Final Result [facility] [address] [place] [address] * (ABNORMAL) Comprehensive metabolic panel (05/15/2022 11:12 AM MOLDING CUTTER) Glucose 100(H) 65 - 99 mg/dL [facility] Comment: ? Fasting reference interval For someone without known diabetes, a glucose value between 100 and 125 mg/dL is consistent with prediabetes and should be confirmed with a follow-up test. BUN 18 7 - 25 mg/dL [facility] Creatinine 1.05(H) 0.60 - 1.00 mg/dL [facility] eGFR 56(L) > OR = 60 mL/min/1.7 3m2 [facility] Comment: The eGFR is based on the CKD-EPI 2020 equation. To calculate the new eGFR from a previous Creatinine or Cystatin C result, go to https://www.kidney.org/professionals/ kdoqi/gfr%5Fcalculator BUN/creat ratio 17 6 - 22 (calc) [facility] Sodium 139 135 - 146 mmol/L [facility] Potassium, pl 4.3 3.5 - 5.3 mmol/L [facility] Chloride 105 98 - 110 mmol/L [facility] CO2 26 20 - 32 mmol/L [facility] Calcium 9.7 8.6 - 10.4 mg/dL [facility] Protein, sr 6.8 6.1 - 8.1 g/dL [facility] Albumin 3.9 3.6 - 5.1 g/dL [facility] GLOBULIN 2.9 1.9 - 3.7 g/dL (calc) [facility] Alb/glob ratio 1.3 1.0 - 2.5 (calc) [facility] Bilirubin, total 0.5 0.2 - 1.2 mg/dL [facility] Alk phos 91 37 - 153 U/L [facility] AST 16 10 - 35 U/L [facility] ALT (SGPT) 14 6 - 29 U/L [facility] Blood 05/15/2022 11:1 2 AM MOLDING CUTTER 05/15/2022 11:12 AM MOLDING CUTTER Martina JONES LAB BLOOD ORDERABLES Final Result [facility] [address] [place] [address] documented in this encounter Visit Diagnoses Diagnosis 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)- Primary 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) Neck pain Cervicalgia longterm current use 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 drug documented in this encounter Discontinued Medications Medication Sig Discontinue Reason Start Date End Da te folic acid (FOLVITE) 1 mg tabletIndications:Folat e Deficiency Take 1 tablet (1 mg total) by mouth daily after lunch Reorder 02/28/2021 05/15/2022 methotrexate 2.5 mg tabletIndications:Rheum atoid Arthritis TAKE 5 TABLETS (12.5 MG TOTAL) BY MOUTH EVERY 7 DAYS EVERY SUNDAY Reorder 11/08/2021 05/15/2022 documented as of this encounter Orders Outpatient Referral Count Last Ordered Date Fir st Ordered Date AMB REFERRAL TO RHEUMATOLOGY 1 05/15/2022 documented in this encounter Care Teams Diamond Cutter Relationship Specialty Start Date End Date Sin Mcclure MD [address] [place] [address] PCP - General Internal Medicine 05/15/22 11/28/22 Wilmer Taylor MD [address] [facility] [address] [place] [address] Referring Physician Obstetrics and Gynecology 05/09/12 Jeffrey Koch MD [address] [place] [address] Consulting Physician Rheumatology 02/03/21 Luz Lewis MD [address] [place] [address] Referring Physician Surgery 12/14/21 documented as of this encounter
--- OUTSIDE RECORDS SUMMARY | 2024-05-03 02:51 | XMS_ITS | Encounter Summary ---
Author Organization [facility] Address [address] [facility] [address] [place] [address] Phone Care Team Providers Care Package Crimper Name Role Phone Terry Bender Primary Care Provider [phone] Wilmer Taylor MD Unavailable [phone] Jeffrey Koch MD Unavailable [phone] Encounter Details Date Type Department Care Team (Late st Contact Info) Description 09/05/2021 Orders Only [facility] Surgery [address] [facility] Advanced Medicine 8th [place] [address] [place] [address] Ranjan Cazares MD [address] [facility] [address] [place], [place] [id number] Malignant neoplasm of upper lobe of right [...] file Legal Sex Female 10:10 AM CLINICAL MARKETING MANAGER Gender Identity Not on file Sexual Orientation Not on file documented as of this encounter Plan of Treatment Not on file documented as of this encounter Visit Diagnoses Diagnosis Malignant neoplasm of upper lobe of right lung (HCC)- Primary documented in this encounter Care Teams Package Crimper Relationship Specialty Start Date End Date Terry Bender DO PCP - General Internal Medicine 01/03/18 05/14/22 Wilmer Taylor MD [address] [address] Referring Physician Obstetrics and Gynecology 05/09/12 Jeffrey Koch MD [address] [place] [address] Consulting Physician Rheumatology 02/03/21 documented as of this encounter
--- OUTSIDE RECORDS SUMMARY | 2024-05-03 02:51 | XMS_ITS | Encounter Summary ---
Author Organization [facility] Address [address] [facility] [address] [place] [address] Phone Care Team Providers Care Garbage Collector Supervisor Name Role Phone Wilmer Taylor MD Unavailable [phone] Jeffrey Koch MD Unavailable [phone] Luz Lewis MD Unavailable [phone] Sin Mcclure MD Primary Care Provider [phone] Encounter Details Date Type Department Care Team (Late st Contact Info) Description 10/05/2022 Orders Only [facility] Surgery [address] [facility] 8th [place] [address] [place] [address] Zaira De Los Santos, MAILROOM ASSOCIATE [id number] [place] [address] History of lung cancer (Primary Dx) Social History Tobacco Use Types [...] on file Legal Sex Female 10:10 AM CPS TEAM LEAD Gender Identity Not on file Sexual Orientation Not on file documented as of this encounter Progress Notes * Zaira De Los Santos NP - 10/05/2022 9:[address] chest order placed for external order. Daughter called requesting this be sent to [facility] in [place], [place]. Management Developer completed using ViewsIQ Direct speaking software, therefore, billposting supervisor variances may occur. documented in this encounter Plan of Treatment Not on file documented as of this encounter Visit Diagnoses Diagnosis History of lung cancer- Primary Personal history of malignant neoplasm of bronchus and lung documented in this encounter Care Teams Garbage Collector Supervisor Relationship Specialty Start Date End Date Sin Mcclure MD [address] [place] [address] PCP - General Internal Medicine 05/15/22 11/28/22 Wilmer Taylor MD [address] [place] [address] Referring Physician Obstetrics and Gynecology 05/09/12 Jeffrey Koch MD [address] [place] [address] Consulting Physician Rheumatology 02/03/21 Luz Lewis MD [address] [place] [address] Referring Physician Surgery 12/14/21 documented as of this encounter
--- OUTSIDE RECORDS SUMMARY | 2024-05-03 02:51 | XMS_ITS | Encounter Summary ---
Author Organization [facility] Healthcare Address [address] [place] [address] Care Team Providers Care Rotating Equipment Engineer Name Role Phone Terry Bender DO Primary Care Provider [phone] Wilmer Taylor MD Unavailable [phone] Jeffrey Koch MD Unavailable [phone] Luz Lewis MD Unavailable [phone] Encounter Details Date Type Department Care Team (Latest Contact Info) Description 04/28/2022 4:19 PM AMMUNITION ASSEMBLY LABORER - 04/28/2022 11:59 PM AMMUNITION ASSEMBLY LABORER Hospital Encounter [facility] [address] [place] [address] Diagnosis unknown Discharge Disposition: Discharge to home [...] on file Legal Sex Female 10:10 AM AMMUNITION ASSEMBLY LABORER Gender Identity Not on file Sexual Orientation [...] total) by mouth every morning 02/26/2021 omega 5-imu-jlf-fish oil 100-160-1,000 mg capsuleIndicatio ns:hypertriglyce ridemia Take [...] Diagnosis Comments CT BODY OUTSIDE CONSULT Routine 04/28/2022 4:19 PM AMMUNITION ASSEMBLY LABORER Diagnosis unknown documented in this encounter Results * CT Body Outside Consult (04/28/2022 4:19 PM AMMUNITION ASSEMBLY LABORER) Anatomical Region Laterality Modality Body N/A Computed Tomogra phy 04/29/2022 12:2 6 PM AMMUNITION ASSEMBLY LABORER Impressions 04/29/2022 12:44 PM AMMUNITION ASSEMBLY LABORER 1. ??Changes of right upper lobectomy without evidence of recurrent or metastatic disease on this limited noncontrast examination. 2. ??Findings of basilar pulmonary fibrosis. The findings, conclusions and recommendations within this report do not replace the initial findings, conclusions ??and recommendations made at the facility where the study was performed based upon the imaging and clinical condition at that time. ??Comparison with the prior report and clinical history is necessary. ??The provided images may or may not represent the [place] source data set and thus may contain changes that may lower the accuracy of this second-opinion interpretation. Dictated by: Davi Elam M.D. The radiology attending physician has personally reviewed this study, and had reviewed and/or edited this written report and agrees with it. Electronically signed by: Jeffrey Nunez M.D. Narrative 04/29/2022 12:44 PM AMMUNITION ASSEMBLY LABORER EXAMINATION: RADIOLOGY CONSULTATION ON OUTSIDE IMAGING STUDY STUDY INITIALLY PERFORMED: 04/10/[address] [facility]. TYPE OF STUDY: Multiple CT images of the chest without intravenous contrast are provided at the time of this interpretation. CONTRAST ROUTE: No contrast was administered. The protocol was adequate to address the clinical question. The outside final report was not available at the time of this second opinion interpretation. TYPE OF CONSULTATION: Consult on outside imaging study with images submitted through TERRY DATE OF CONSULTATION: 04/29/2022 9:24 AM HISTORY: Right upper lobe non-small cell lung cancer COMPARISON: PET/CT dated 09/08/2021 FINDINGS: Patent central airway. ??Surgical changes of right upper lobectomy. Moderate centrilobular emphysema. ??New bibasilar septal line thickening with appearance of fibrosis. ??Medial right middle lobe atelectasis near the resection margin. ??No pleural effusion or pneumothorax. No axillary, supraclavicular, mediastinal, or hilar lymphadenopathy. No definite soft tissue thickening surrounding the resection margin, although this evaluation is limited by lack of intravenous contrast. Calcified right hilar and pulmonary granulomatous disease. ??The thoracic aorta is normal in caliber with moderate atherosclerosis. Normal heart size. ??No pericardial effusion. Splenic calcifications likely related to granulomatous disease. Osteopenia. ??Scoliosis.. No suspicious osseous lesions. Procedure Note Jeffrey Nunez MD PhD - 04/29/2022 EXAMINATION: RADIOLOGY CONSULTATION ON OUTSIDE IMAGING STUDY STUDY INITIALLY PERFORMED: 04/10/[address] [facility]. TYPE OF STUDY: Multiple CT images of the chest without intravenous contrast are provided at the time of this interpretation. CONTRAST ROUTE: No contrast was administered. The protocol was adequate to address the clinical question. The outside final report was not available at the time of this second opinion interpretation. TYPE OF CONSULTATION: Consult on outside imaging study with images submitted through TERRY DATE OF CONSULTATION: 04/29/2022 9:24 AM HISTORY: Right upper lobe non-small cell lung cancer COMPARISON: PET/CT dated 09/08/2021 FINDINGS: Patent central airway. Surgical changes of right upper lobectomy. Moderate centrilobular emphysema. New bibasilar septal line thickening with appearance of fibrosis. Medial right middle lobe atelectasis near the resection margin. No pleural effusion or pneumothorax. No axillary, supraclavicular, mediastinal, or hilar lymphadenopathy. No definite soft tissue thickening surrounding the resection margin, although this evaluation is limited by lack of intravenous contrast. Calcified right hilar and pulmonary granulomatous disease. The thoracic aorta is normal in caliber with moderate atherosclerosis. Normal heart size. No pericardial effusion. Splenic calcifications likely related to granulomatous disease. Osteopenia. Scoliosis.. No suspicious osseous lesions. IMPRESSION: 1. Changes of right upper lobectomy without evidence of recurrent or metastatic disease on this limited noncontrast examination. 2. Findings of basilar pulmonary fibrosis. The findings, conclusions and recommendations within this report do not replace the initial findings, conclusions and recommendations made at the facility where the study was performed based upon the imaging and clinical condition at that time. Comparison with the prior report and clinical history is necessary. The provided images may or may not represent the [place] source data set and thus may contain changes that may lower the accuracy of this second-opinion interpretation. Dictated by: Davi Elam M.D. The radiology attending physician has personally reviewed this study, and had reviewed and/or edited this written report and agrees with it. Electronically signed by: Jeffrey Nunez M.D. [facility] Gabriele Cazares MD IMG CT PROCEDURES Lupe l Result documented in this encounter Visit Diagnoses Diagnosis Diagnosis unknown documented in this encounter Care Teams Rotating Equipment Engineer Relationship Specialty Start Date End Date Terry Bender DO PCP - General Internal Medicine 01/03/18 05/14/22 Wilmer Taylor MD [address] [address] Referring Physician Obstetrics and Gynecology 05/09/12 Jeffrey Koch MD [address] [place] [address] Consulting Physician Rheumatology 02/03/21 Luz eLwis MD [address] [place] [address] Referring Physician Surgery 12/14/21 documented as of this encounter
--- OUTSIDE RECORDS SUMMARY | 2024-05-03 02:51 | XMS_ITS | Encounter Summary ---
Author Organization [facility] Address [address] [facility] [address] [place] [address] Phone Care Team Providers Care Flake [employer] Name Role Phone Terry Bender Primary Care Provider [phone] Wilmer Taylor MD Unavailable [phone] Jeffrey Koch MD Unavailable [phone] Luz Lewis MD Unavailable [phone] Encounter Details Date Type Department Care Team (Late st Contact Info) Description 04/04/2022 Telephone [facility] Surgery [address] [facility] [address] [place] [address] Telma Chong RMA Social History [...] on file Legal Sex Female 10:10 AM ELDERLY SITTER Gender Identity Not on file Sexual Orientation Not on file documented as of this encounter Miscellaneous Notes * Telephone Encounter - Telma Chong RMA - 04/04/2022 3:30 PM ELDERLY SITTER Spoke to pt's daughter. They are aware of date, time and location RLY SITTER * Telephone Encounter - Telma Chong RMA - 04/04/2022 12:58 PM ELDERLY SITTER Pt's CT was scheduled at [facility] 04/07 4:30pm arrive 4pm Called pt no answer left message RLY SITTER RLY SITTER documented in this encounter Plan of Treatment Not on file documented as of this encounter Visit Diagnoses Not on filedocumented in this encounter Care Teams Flake [employer] Wheat [employer] Oats Relationship Specialty Start Date End Date Terry Bender DO PCP - General Internal Medicine 01/03/18 05/14/22 Wilmer Taylor MD [address] [address] Referring Physician Obstetrics and Gynecology 05/09/12 Jeffrey Koch MD [address] [place] [address] Consulting Physician Rheumatology 02/03/21 Luz Lewis MD [address] [place] [address] Referring Physician Surgery 12/14/21 documented as of this encounter
--- OUTSIDE RECORDS SUMMARY | 2024-05-03 02:52 | XMS_ITS | Encounter Summary ---
Author Organization [facility] Healthcare Address [address] [place] [address] Care Team Providers Care Director External Communications Name Role Phone Terry Bender DO Primary Care Provider [phone] Wilmer Taylor MD Unavailable [phone] Jeffrey Koch MD Unavailable [phone] Encounter Details Date Type Department Care Team (Latest Contact Info) Description 08/31/2021 2:23 PM CDT - 08/31/2021 2:24 PM CDT Hospital Encounter [facility] [address] [place], [place] [id number] Diagnosis unknown Discharge Disposition: Discharge to home [...] on file Legal Sex Female 10:10 AM CUSTOMER ADVOCATE Gender Identity Not on file Sexual Orientation Not on file documented as of this encounter Medications at Time of Discharge acetaminophen (TYLENOL) 500 mg tablet Take 2 tablets (1,000 mg total) by mouth every 6 (six) hours as needed for pain 60 tablet 2 04/08/2019 ascorbic acid (VITAMIN C) 500 mg tablet,chewableI [...] total) by mouth every morning 02/26/2021 omega 9-uxy-ylb-fish oil 100-160-1,000 mg capsuleIndicatio ns:hypertriglyce ridemia Take 1 capsule by mouth daily after dinner amLODIPine (NORVASC) 10 mg tabletIndication s:hypertension 10 [...] mg by mouth daily after lunch 2 methotrexate 2.5 mg tabletIndication s:Rheumatoid Arthritis Take 5 tablets (12.5 mg total) by mouth every 7 days Every Sunday 60 tablet 1 02/28/2021 2 nicotine (NICODERM CQ) 21 mgIndications:Sm oking Cessation Place 1 patch on the skin daily 3 traMADoL (ULTRAM) 50 mg tablet Take 1 tablet (50 mg total) by mouth every 6 (six) hours as needed for pain for up to 10 days 15 tablet 07/06/2021 documented as of this encounter Discharge Disposition Disposition Code Departure Means Destination Discharge to home or self care documented in this encounter Plan of Treatment Not on file documented as of this encounter Procedures Procedure Name Priority Date/Time Associated Diagnosis Comments CT BODY OUTSIDE CONSULT Routine 08/31/2021 2:23 PM CDT Diagnosis unknown documented in this encounter Results * CT Body Outside Consult (08/31/2021 2:23 PM CDT) Anatomical Region Laterality Modality Body N/A Computed Tomogra phy 08/31/2021 2:26 PM CDT Impressions 08/31/2021 2:26 PM CDT This study was initially nominated as a consult on outside images via TERRY. However, a consult was not performed because this is not a diagnostic CT chest. Procedural CT images of the right lung mass biopsy are provided. Accordingly, there will be no separate report of this study generated by a [facility] Radiologist. Electronically signed by: Muriel Vann M.D. Narrative 08/31/2021 2:26 PM CDT EXAMINATION: ??CHANGE CONSULT ON OUTSIDE IMAGES TO REFERENCE IMAGES Procedure Note Muriel Vann MD - 08/31/2021 EXAMINATION: CHANGE CONSULT ON OUTSIDE IMAGES TO REFERENCE IMAGES IMPRESSION: This study was initially nominated as a consult on outside images via TERRY. However, a consult was not performed because this is not a diagnostic CT chest. Procedural CT images of the right lung mass biopsy are provided. Accordingly, there will be no separate report of this study generated by a [facility] Radiologist. Electronically signed by: Muriel Vann M.D. Ranjan Cazares MD IMG CT PROCEDURES Lupe l Result documented in this encounter Visit Diagnoses Diagnosis Diagnosis unknown documented in this encounter Care Teams Director External Communications Relationship Specialty Start Date End Date Terry Bender DO PCP - General Internal Medicine 01/03/18 05/14/22 Wilmer Taylor MD [address] [address] Referring Physician Obstetrics and Gynecology 05/09/12 Jeffrey Koch MD [address] [facility] [place] [address] Consulting Physician Rheumatology 02/03/21 documented as of this encounter
--- OUTSIDE RECORDS SUMMARY | 2024-05-03 02:52 | XMS_ITS | Encounter Summary ---
Author Organization [facility] Address [address] [place] [address] Phone Care Team Providers Care Commercial Mortgage Broker Name Role Phone Terry Bender Primary Care Provider [phone] Wilmer Taylor MD Unavailable [phone] Jeffrey Koch MD Unavailable [phone] Reason for Visit * Reason Comments Follow-up Encounter Details Date Type Department Care Team (Latest Contact Info) Description 06/06/2021 9:45 AM CONTOUR PATH TAPE MILL OPERATOR Office Visit [facility] Gynecology/Oncology [address] [facility] [address] [facility] [address] [place] [address] Sinan Schmidt MD [address] [place], [place] [id number] Anal dysplasia (Primary Dx); HAWA III (vulvar intraepithelial neoplasia III) Social History Tobacco Use Types Packs/Day Years Used Date Smoking Tobacco: Former Cigarettes 0.3 50 1 969 - 2015 Smokeless Tobacco: Never Alcohol Use Standard Drinks/Week Comments Never 0 (1 standard drink = 0.6 oz pur e alcohol) AUDIT-C Answer Date Recorded Frequency of Alcohol Consumption Never 02/06/2019 Average Number of Drinks Not on file 019 Frequency of Binge Drinking Not on file 01/21 Comments No Sex and Gender Information Value Date Recorded Sex Assigned at Not on file Legal Sex Female 10:10 AM CONTOUR PATH TAPE MILL OPERATOR Gender Identity Not on file Sexual Orientation Not on file documented as of this encounter Last Filed Vital Signs Vital Sign Reading Time Taken Comments Blood Pressure 114/72 06/06/2021 9:55 AM CONTOUR PATH TAPE MILL OPERATOR Pulse 83 06/06/2021 9:55 AM CONTOUR PATH TAPE MILL OPERATOR Temperature 35.8 ??C (96.5 ??F) 06/06/2021 9:55 AM CS T Respiratory Rate 16 06/06/2021 9:55 AM CONTOUR PATH TAPE MILL OPERATOR Oxygen Saturation 95% 06/06/2021 9:55 AM CONTOUR PATH TAPE MILL OPERATOR Inhaled Oxygen Concentration - - Weight 62.2 kg (137 lb 3.2 oz) 06/06/2021 9:55 A M CONTOUR PATH TAPE MILL OPERATOR Height 160 cm (5' 3 ) 06/06/2021 9:55 AM CONTOUR PATH TAPE MILL OPERATOR Body Mass Index 24.3 06/06/2021 9:55 AM CONTOUR PATH TAPE MILL OPERATOR documented in this encounter Progress Notes * Sinan Schmidt MD - 06/06/2021 9:45 AM CST GYNONC Return Visit Loida Guillory 1950 70 y.o. 06/06/2021 Visit Diagnosis 1. Anal dysplasia 2. HAWA III (vulvar intraepithelial neoplasia III) Subjective Loida Guillory is a 70 yo who returns today for follow up for HAWA/AIN. She is doing well, here for a 6-month check up. Has quit smoking, but still uses the nicotine patch to help with cravings; wishes she could give that up, too, but just can't. Has not had any itching in the vulvar or anal area. No new symptoms to report. No trouble with bowel movements. . Cancer Staging No matching staging information was [...] squamous intraepithelial lesion (HSIL, AIN-3, severe dysplasia) LAST CA125: No results found for: CA125 Review of Systems The patient-completed Review of Systems was reviewed and was scanned as an attachment to this encounter. Patient Active Problem List Diagnosis ??? Anal dysplasia ??? Hypertension ??? Encounter for postoperative care ??? HAWA III (vulvar intraepithelial neoplasia III) ??? 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) ??? Neck pain Past Medical History: Diagnosis Date ??? Arthritis ??? Hypertension ??? Personal history of other diseases of the circulatory system History of hypertension - (Added by TW Conv) Past Surgical History: Procedure Laterality Date ??? OVARY SURGERY 1994 Cyst x2 removed from overies ??? DE BREAST SURGERY PROCEDURE UNLISTED Right 1978 Cyst removed from R breast ??? RHINOPLASTY 1989 Deviated septum ??? VULVA SURGERY 03/28/2012 HAWA III excision ??? VULVA SURGERY 03/04/2013 HAWA III excision ??? VULVA SURGERY 11/10/2018 HAWA III excision ??? VULVA SURGERY 04/08/2019 HAWA III excision Allergies Allergen Reactions ??? Omeprazole Rash Current Outpatient Medications: ??? acetaminophen (TYLENOL) 500 mg tablet ??? amLODIPine (NORVASC) 10 mg tablet ??? ascorbic acid (ascorbic acid with lyssa hips) 500 mg tablet,chewable ??? aspirin (ASPIR-81) 81 mg tablet ??? budesonide-formoterol (SYMBICORT) 160-4.5 mcg/actuation inhaler ??? calcium carbonate-vitamin D3 1,500 mg (600mg elemental) -800 unit per tablet ??? famotidine (PEPCID) 20 mg tablet ??? folic acid (FOLVITE) 1 mg tablet ??? losartan (COZAAR) 25 mg tablet ??? methotrexate 2.5 mg tablet ??? nicotine (NICODERM CQ) 21 mg ??? omega 7-dul-eld-fish oil (FISH OIL) 100-160-1,000 mg capsule Social History Tobacco Use ??? Smoking status: Former Smoker Packs/day: 0.25 Years: 50.00 Pack years: 12.50 Start date: 1968 Quit date: 2014 Years since quittin.1 ??? Smokeless tobacco: Never Used Substance Use Topics ??? Alcohol use: Never Family History Problem Relation Age of Onset ??? Breast cancer Other Family history of malignant neoplasm of breast - Relation: Aunt (Added by TW Conv) ??? Colon cancer Other Family history of colon cancer - Relation: Uncle (Added by TW Conv) No LMP recorded. Patient is postmenopausal. Objective Vitals Vitals BP 114/72 Pulse 83 Temp (!) 35.8 ??C (96.5 ??F) Resp 16 Ht 160 cm (5' 3 ) Wt 62.2 kg (137 lb 3.2 oz) SpO2 95% No BMI 24.30 kg/m?? Physical exam: General Appearance: well, in no acute distress. HEENT: within normal limits; sclerae non icteric. Cervical/supraclavicular Area: without adenopathy. Chest: clear to auscultation. Heart: regular rate & rhythm. Back: no CVA or paraspinal tenderness. Abdomen: soft, non-tender, without palpable masses, hernias, or enlarged liver or spleen; no fluid wave. Well healed scar(s) without herniation. Inguinal Area: without adenopathy. BUS/External: without lesions. Urethra/Urethral Meatus: without masses or tenderness. Bladder: non-tender. Vagina: without lesions or abnormal discharge. Bimanual: no adnexal masses, tenderness, or nodularity. Rectovaginal: confirms above; rectovaginal septum & parametria clear, posterior cul de sac smooth Skin: without rashes. Lower extremities: without edema or calf tenderness. Performance Score: PS = 0 Assessment/Plan 1. VIN3/AIN. -Stable exam, no need for biopsy. Discussed perianal small acetowhite changes; goal of surveillanceis to prevent invasion and there is no sign of this whatsoever, very stable appearance. -RTC 6 months. -She is due for a colonoscopy and it may be helpful for her to be evaluated by colorectal surgery for anoscopy. ?? 2. Congratulated on continuing smoking cessation efforts--has not smoked for several years. Continues nicotine patch. She understands the relationship between nicotine and HPV. Sinan Schmidt MD CC: Patient Care Team and PCP: Terry Bender DO Enclosures:Note OUR PATH TAPE MILL OPERATOR documented in this encounter Miscellaneous Notes * Treatment Plan - Sinan Schmidt MD - 06/06/2021 9:45 AM CST Refer to Dr. 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
--- OUTSIDE RECORDS SUMMARY | 2024-05-03 02:52 | XMS_ITS | Encounter Summary ---
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] Procedures AL SURG DIAGNOSTIC EXAM, ANORECTAL Exam Under Anestheisa, Anoscopy, Biopsoy of Perianal Lesions Referral ID Status Reason Start Date Expiration Date Visits Re quested Visits Authorized [id number] 1 1 Encounter Details Date Type Department Care Team (Late st Contact Info) Description 07/06/2021 12:40 PM CDT - 07/06/2021 1:40 PM CDT Surgery [facility] Operating Room [address] [place] [address] Luz Lewis MD [address] [facility] [address] [place] [address] Exam Under Anestheisa, Anoscopy, Biopsoy of Perianal Lesions Surgery Details Date/Time Status Location OR Service Patient Class Case Cl ass Case Type Trauma Case? 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 Gender Identity Not on file Sexual Orientation Not on file documented as of this encounter Last Filed Vital Signs Vital Sign Reading Time Taken Comments Blood Pressure 117/68 07/06/2021 1:20 PM CDT Pulse 71 07/06/2021 1:25 PM CDT Temperature 36.3 ??C (97.4 ??F) 07/06/2021 1 2:40 PM CDT Respiratory Rate 20 07/06/2021 1:25 PM CDT Oxygen Saturation 97% 07/06/2021 1:25 PM CDT Inhaled Oxygen Concentration - - Weight 61.6 kg (135 lb 12.9 oz) 022 11:35 AM CDT Height 160 cm (5' 3 ) 07/06/2021 11:35 AM CDT Body Mass Index 24.06 07/06/2021 11:35 AM CDT documented in this encounter Discharge Instructions * Discharge Instructions* Deborah Long RN - 07/06/2021 12:38 PM CDT Anxiolysis in Adults WHAT YOU NEED TO KNOW: Anxiolysis is also called minimal sedation, conscious sedation, or twilight sedation. Anxiolysis isanxiety relief that occurs after you have been given medicine. This medicine helps you stay calm and comfortable during certain tests or procedures. It may be used before tests, such as an MRI, or a procedure, such as setting a broken arm. You may get the medicine as a pill or through your IV. If you are having surgery, the medicine will be given along with local or regional anesthesia. You may be drowsy, but you will be able to respond. DISCHARGE INSTRUCTIONS: Return to the emergency department if: ?? You are wheezing or having trouble breathing. ?? You have a rash that spreads over your body. Contact your healthcare provider if: ?? You have pain or swelling where you got the injection. ?? You have nausea or are vomiting. ?? You have muscle spasms. ?? You are confused or sleepy for longer than 24 hours. ?? You have questions or concerns about your condition or care. After anxiolysis: ?? Ask someone to stay with you for 24 hours. You may have trouble keeping your balance or doing daily activities. The person should also watch for any side effects from the medicine and call for help if needed. Examples include trouble breathing, hives, or an itchy rash over your body. ?? Rest and go slowly for at least 12 hours. You may have slow reflexes or be clumsy. Do not showeror take a bath until you feel fully awake. This can help prevent you from slipping in the bathtub. ?? Do not drive or make decisions for 24 hours. You may have trouble with coordination, reflexes, or thinking clearly. Ask someone to drive you if you need to go somewhere. Do not make important decisions until you are thinking clearly. ?? Eat and drink as directed. Limit the amount of fluid you drink. You may vomit if you drink too much fluid. You may need to start with clear fluids, such as broth or apple juice. If you do not vomit within 30 minutes, you may start to eat solid foods. Follow up with your healthcare provider as directed: Write down your questions so you remember to ask them during your visits. ?? 2017 [employer] Information is for End User's use only and may not be sold, redistributed or otherwise used for commercial purposes. All illustrations and images included in CareNotes?? are the copyrighted property of [employer] or [employer]. The above information is an domestic maid only. It is not intended as medical advice for individual conditions or treatments. Talk to your doctor, nurse or pharmacist before following any medical regimen to see if it is safe and effective for you. documented in this encounter Medications at Time [...] total) by mouth every morning 02/26/2021 omega 1-fyr-avt-fish oil 100-160-1,000 mg capsuleIndicatio ns:hypertriglyce ridemia Take [...] up to 10 days 15 tablet 07/06/2021 2 documented as of this encounter Ordered Prescriptions Prescription Sig Dispense Quantity Refills Last Filled Start Date End Date traMADoL (ULTRAM) 50 mg tablet Take 1 tablet (50 mg total) by mouth every 6 (six) hours as needed for pain for up to 10 days 15 tablet 07/06/2021 09/01/2021 documented in this encounter Discharge Disposition Disposition Code Departure Means Destination Discharge to home or self care documented in this encounter H&P Notes * Luz Lewis MD - 07/06/2021 11:52 AM CDT I have reviewed the H&P, examined the patient, and endorse the findings as written. Plan of Care : Based on the above findings, I consider Darrion Guillory to be an acceptable risk for : Procedure(s): Exam Under Anestheisa, Anoscopy, Biopsoy of Perianal Lesions Source Note - Luz Lewis MD - 07/04/2021 12:15 PM CDT Colorectal Surgery Consultation Consult requested by Sinan Schmidt MD for HAWA/AIN3 Chief Complaint: Darrion Guillory is [...] years). She wishes to proceed with colonoscopy. Past Medical History: Diagnosis Date ??? Arthritis ??? Hypertension ??? Personal history of other diseases of the circulatory system History of hypertension - (Added by ANDREY Conv) Past Surgical History: Procedure Laterality Date ??? OVARY SURGERY 1994 Cyst x2 removed from overies ??? AL BREAST SURGERY PROCEDURE UNLISTED Right 1978 Cyst [...] mg tablet losartan (COZAAR) 25 mg tablet methotrexate 2.5 mg tablet nicotine (NICODERM CQ) 21 mg omega 0-oxd-moy-fish oil 100-160-1,000 mg capsule Allergies Allergen Reactions ??? Omeprazole Rash Social History Tobacco Use ??? 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 Digital Rectal Exam: No masses. Normal tone, good squeeze Anoscopy: A lubricated anoscope was placed per rectum. Small non friable internal hemorrhoids were noted. No masses were noted in the anal canal Musculoskeletal: No deformities. Neurological: Normal gait, no deficits Integumentary: No rashes Psychiatric: Normal mood and affect Assessment/Plan Darrion Guillory is a 71 y.o. female with history or VIN3/AIN requiring WLE previously. She does havesome small hyperkeratotic and small lesion with leukoplakia that are not amenable to biopsy, treatment in clinic. I have recommended to proceed with EUA with biopsies to ensure not AIN 3 since there a re visible lesions. The procedure was discussed with the patient along with perioperative expectations and complications. The surgery was discussed in detail. The risks and benefits were discussed indetailed including: Bleeding (possible transfusion, need for return to operating room to control), infection, recurrence of disease, scarring, anal stenosis, fecal incontinence, urinary retension, and more life-threatening complications such as stroke, pulmonary embolism or DVT, heart attack or . She is also due for a colonoscopy and this will be arranged in the near future. The surgery will be scheduled in the near future. Luz Lewis MD [facility] Colorectal Surgery 07/04/21 12:25 PM This note was transcribed using [employer] Speech Recognition software. As a result, there may be unintended grammar and spelling errors. Every attempt is made to have correct dictation. If there are any questions or major errors, please contact me. documented in this encounter Miscellaneous Notes * Perioperative Nursing Note - Deborah Long RN - 07/06/2021 1:21 PM CDT Patient and family educated on discharge instructions. * Op Note - Luz Lewis MD - 07/06/2021 12:33 PM CDT OPERATIVE NOTE SURGEON: Luz Lewis ANESTHESIA: MAC with Local PREOPERATIVE DIAGNOSIS: Perianal lesions, history of VIN3 POSTOPERATIVE DIAGNOSIS: Perianal lesions, history of VIN3 NAME OF OPERATION: Exam under anesthesia, anoscopy, acetic acid staining, biopsy of perianal lesions x3 INDICATIONS FOR PROCEDURE: The patient is a 71 y.o. 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 Shehas been monitored closely for this and was noted to have perianal small acetowhite changes when last examined. Risks, benefits, and perioperative expectations were discussed in detail. The patient understands that repeat procedures may be required and that pain and scarring or associated with this. Consent was obtained. INTRAOPERATIVE FINDINGS: Small perianal hyperkeratotic lesion left laterally and small lesion with leukoplakia right laterally. Did stain more white with acetic acid, along with a small lesion anteriorly. DESCRIPTION OF PROCEDURE: The patient was brought the operating room, placed under MAC anesthesia in the prone tereza-knife position. The perineum was prepped and draped in normal sterile fashion and a pudendal nerve block was performed using with 40 mL of 0.25% Marcaine, 1 % lidocaine, and bicarbonate soluation. A detailed digital rectal exam was performed which demonstrated the above findings. This noted a small perianal hyperkeratotic lesion left laterally and small lesion with leukoplakia right laterally. Acetic acid was used to paint the perianal tissues which did stain a small lesion anteriorly. These were all excised and treated with [...] the entire procedure from start to finish * Pre-Procedure Note - Keesha Ware NP - 07/05/2021 8:51 AM CDT Images from the original note were not included. Inadvertent 3-dose series Dose 1 06/22/2020 (Moderna SARS-CoV-2 Vaccination) Dose 2 07/13/2020 (Moderna SARS-CoV-2 Vaccination) Booster dose 03/19/2021 (Moderna SARS-CoV-2 Vaccination) Patient is fully vaccinated and boosted, will not require pre procedural COVID testing per [facility] policy. documented in this encounter Plan of Treatment Not on file documented as of this encounter Procedures Procedure Name Priority Date/Time Associated Diagnosis Comments SURGICAL PATHOLOGY Routine 07/06/2021 12 :28 PM CDT Vulvar intraepithelial neoplasia III EXAM UNDER ANESTHESIA 07/06/2021 12:12 PM CDT Vulvar intraepithelial neoplasia III documented in this encounter Results * Surgical pathology (07/06/2021 12:28 PM CDT) Tissue (Anal Biopsy) 07/06/2021 12:28 PM CDT Comment:Placed in formalin a t end of case Narrative PATHOLOGY [facility] - 07/08/2021 8:58 AM CDT [address] ??[address] Tele: ?? Katherine Rosales MD - Sulfide Head Operator Note to Patients: This report may contain [...] PATHOLOGY REPORT Patient Name: ??DARRION GUILLORY Address: ??[facility] [place], [place] [address] Gender: ??F : ??1950 (Age: 71) Service: ??Surgery Location: ??[facility] [place], ?? Hospital #: ??[id number] Patient Type: ??[facility] Accession #: ? [id number] Taken: ? 07/06/2021 Received ? 07/06/2021 Reported: ? 07/08/2021 Physician(s): ? Abbey Velez D.O. DIAGNOSIS: Perianal lesions, biopsy: ? - High-grade squamous intraepithelial lesions (moderate-severe dysplasia) - No invasive lesion demonstrated [facility]/07/08/2021 08:58 Examining Pathologist: Gregory Escobar M.D. Report Reviewed and Electronically Signed By ??Gregory Escobar M.D. SPECIMEN TYPE: A: PERIANAL BIOPSY CLINICAL IMPRESSION AND HISTORY: HAWA-III. GROSS DESCRIPTION: Received in formalin and labeled Darrion Guillory and perianal biopsy are three pink-pickard, irregular tissue fragments measuring 1.1 x 0.3 x 0.2 cm in aggregate. ??Specimen is placed in filter paper and entirely submitted in cassette A1. [facility]/07/06/2021 13:56 ? [facility] MICROSCOPIC DESCRIPTION: Sections from the perianal biopsy show multiple fragments of squamous mucosa with some areas with slightly tangential sectioning. ??The tissues show dysplastic change of the epithelium with up to full-thickness dysplastic change. ??There are increased mitoses seen in all layers of the epithelium, and there is papillomatosis with hyperkeratosis. ??Much of the epithelium shows condylomatous type features. ??No distinct invasive component is evident. ??To further evaluate the epithelium a P16 stain is performed; it shows staining in the dysplastic epithelium. Clerical Data Follows A; [id number], [id number] REPORT IMAGES AND/OR SCANNED DOCUMENTS ONLY VIEWABLE IN PDF FORMAT The immunohistochemical test(s) cited in this report, if any, was developed and its performance characteristics determined by [facility] Pathology Department. ??It has not been cleared or approved by the U.S. Food and Drug Administration. ??The FDA has determined that such clearance or approval is not necessary. ??This test is used for clinical purposes. ??It should not be regarded as investigational or for research. ??[facility] is certified under the Clinical Laboratory [...] MD LAB PATHOLOGY ORDERABLES Final Result PATHOLOGY [facility] Laboratory Receiving [address] 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 , Indications: Pre-Emptive AnalgesiaIndications:Pr e-Emptive Analgesia Given 07/06/2021 12:01 PM CDT 1,000 mg albuterol 2.5 mg /3 mL (0.083 %) nebulizer solution 2.5 mg 2.5 mg, nebulization, As needed, wheezing, Starting on Sun07/06/21 at 1238, For 2 doses, Phase I, Notify Anesthesiologist. , Indications: Bronchospastic Pulmonary DiseaseIndications:Bron chospastic Pulmonary Disease bacitracin 500 unit/gram ointment As needed, Starting on Sun07/06/21 at 1229, Intra-Op Given 07/06/2021 12:29 PM CDT 1 application (deactivated) Surgical Site dextrose (D10W) 10% bolus 250 mL 250 mL, intravenous, at 1,000 mL/hr, Administer over 15 Minutes, Once as needed, blood glucose less than 70 mg/dL, Starting on Sun07/06/21 at 1150, Pre-Op, Indications: HypoglycemiaIndications :Hypoglycemia diphenhydrAMINE (BENADRYL) injection 12.5 mg 12.5 mg, intravenous, Every 15 min PRN, itching, Starting on Sun07/06/21 at 1238, For 2 doses, Phase I, Max cumulative dose 50 mg., Indications: ItchingIndications:Itch ing fentaNYL (SUBLIMAZE) preservative free injection 25 mcg 25 mcg, intravenous, Every 5 min PRN, uncontrolled pain on PACU admission, Starting on Sun07/06/21 at 1238, For 4 doses, Phase I, Maximum dosage of fentanyl of 100 mcg for arrival to PACU, then proceed to PACU 1st line analgesic., Indications: PainIndications:Pain haloperidol (HALDOL) injection 1 mg 1 mg, intravenous, Administer over 5 Minutes, Once as needed, nausea, vomiting, Starting on Sun07/06/21 at 1238, For 1 dose, Phase I, If post-operative nausea and/or vomiting is not relieved by ondansetron within 30 minutes or if more than 8mg of ondansetron have been given within the last 6 hours. HYDROmorphone (DILAUDID) injection 0.2 mg 0.2 mg, intravenous, Administer over 2 Minutes, Every 10 min PRN, 1st line for pain, Starting on Sun07/06/21 at 1238, For 10 doses, Phase I, Switch to 2nd line analgesic order if pain is uncontrolled or increasing after 1 dose. Notify Anesthesiologist if total PACU dose reaches 2 mg and pain score 5/10 or more., Indications: PainIndications:Pain HYDROmorphone (DILAUDID) injection 0.4 mg 0.4 mg, intravenous, Administer over 2 Minutes, Every 10 min PRN, 2nd line for pain, Starting on Sun07/06/21 at 1238, For 5 doses, Phase I, May administer 10 mintes after 1st dose of 1st line analgesic agent for uncontrolled or increasing pain. Revert to 1st line dose if POSS of 3. Notify Anesthesiologist if total PACU dose reaches 2 mg and pain score 5/10 or more., Indications: PainIndications:Pain insulin lispro (HumaLOG, ADMELOG) 100 unit/mL injection 1-5 Units 1-5 Units, subcutaneous, Once as needed, high blood sugar, Starting on Sun07/06/21 at 1238, For 1 dose, Phase I, Blood Sugar Mid Dose - Surgical/Post-Op ICU 139 or less No insulin 140 - 175 1 unit 176 - 200 2 unit 201 - 250 3 units 251 - 299 5 units Greater than 299 Call MD for hyperglycemia management instructions Do NOT hold for NPO status., Indications: Diabetes MellitusIndications:Charu betes Mellitus labetaloL (NORMODYNE,TRANDATE) injection 5 mg 5 mg, intravenous, at 30 mL/hr, Administer over 2 Minutes, Every 10 min PRN, high blood pressure, Starting on Sun07/06/21 at 1238, For 4 doses, Phase I, Max cumulative dose 20 mg. Dose if systolic blood pressure greater than 180 AND HR greater than 70. lidocaine 1% w/ EPINEPHrine 1:100,000 (20 mL), bupivacaine 0.25% (20 mL), sodium bicarbonate 8.4% (8 mL) solution As needed, Starting on Sun07/06/21 at 1235, Intra-Op Given 07/06/2021 12:35 PM CDT 30 mL Surgical Site meperidine (DEMEROL) preservative free injection 12.5 mg 12.5 mg, intravenous, Administer over 5 Minutes, Every 10 min PRN, shivering, Starting on Sun07/06/21 at 1238, For 2 doses, Phase I, Max cumulative dose 25 mg., Indications: ShiveringIndications:Sh ivering naloxone (NARCAN) 0.4 mg/mL injection 0.04-0.4 mg 0.04-0.4 mg, intravenous, Once as needed, other, excessive sedation/respiratory depression, Starting on Sun07/06/21 at 1238, For 1 dose, Phase I, BEFORE ADMINISTERING [...] IV, administer over 30 seconds., Indications: Opioid ToxicityIndications:Opi oid Toxicity ondansetron (ZOFRAN) injection 4 mg 4 mg, intravenous, Administer over 2 Minutes, Once as needed, nausea, vomiting, Starting on Sun07/06/21 at 1238, For 1 dose, Phase I, Proceed to haloperidol if more than 8 mg of ondansetron have been given within the last 6 hours., Indications: Prevention of Post-Operative Nausea and VomitingIndications:Pre vention of Post-Operative Nausea and Vomiting oxyCODONE (ROXICODONE) tablet 5 mg 5 mg, oral, As needed, 1st line for pain, Starting on Sun07/06/21 at 1238, For 2 doses, Phase I, 1st ORAL choice for pain, when the patient is able to tolerate PO medications. May repeat in 1 hour if pain is uncontrolled or increasing after 1st dose., Indications: PainIndications:Pain racepinephrine (ASTHMANEFRIN) 2.25 % nebulizer solution 0.5 mL 0.5 mL, nebulization, As needed, other, stridor, Starting on Sun07/06/21 at 1238, For 2 doses, Phase I, Notify Anesthesiologist. , Indications: WheezingIndications:Whe ezing sodium chloride 0.9% flush 0.5-20 mL 0.5-20 mL, intra-catheter, As needed, line care, Starting on Sun07/06/21 at 1136, Pre-Op, Flush volume based on line type and size. Flush before and after each use. sodium chloride 0.9% irrigation As needed, Starting on Sun07/06/21 at 1210, Intra-Op Given 07/06/2021 12:10 PM CDT 500 mL Other (Comment) documented in this encounter Active and Recently Administered Medications Times are shown in CDT. Scheduled Medication Order 07/04/2021 07/05/2021 07/06/2021 acetaminophen (TYLENOL) tablet 1,000 mg (COMPLETED) 1,000 mg, oral, Once, On Sun07/06/21 at 1215, For 1 dose, Pre-Op, Give upon arrival to holding area. , Indications: Pre-Emptive Analgesia 1201 (Given - Provid er: Mima Montiel RN) gabapentin (NEURONTIN) capsule 300 mg 300 mg, oral, Once, On Sun07/06/21 at 1215, For 1 dose, Pre-Op, Give upon arrival to holding area. , Indications: Pre-Emptive Analgesia 1203 (Not Given - Pr ovider: Mima Montiel RN - Reason: Patient/family refused) PRN Medication Order 07/04/2021 07/05/2021 07/06/2021 albuterol 2.5 mg /3 mL (0.083 %) nebulizer solution 2.5 mg 2.5 mg, nebulization, As needed, wheezing, Starting on Sun07/06/21 at 1238, For 2 doses, Phase I, Notify Anesthesiologist. , Indications: Bronchospastic Pulmonary Disease bacitracin 500 unit/gram ointment (CANCELED) As needed, Starting on Sun07/06/21 at 1229, Intra-Op 1229 (Given - Provid er: Luz Lewis MD) dextrose (D10W) 10% bolus 250 mL 250 mL, intravenous, at 1,000 mL/hr, Administer over 15 Minutes, Once as needed, blood glucose less than 70 mg/dL, Starting on Sun07/06/21 at 1150, Pre-Op, Indications: Hypoglycemia diphenhydrAMINE (BENADRYL) injection 12.5 mg 12.5 mg, intravenous, Every 15 min PRN, itching, Starting on Sun07/06/21 at 1238, For 2 doses, Phase I, Max cumulative dose 50 mg., Indications: Itching fentaNYL (SUBLIMAZE) preservative free injection 25 mcg 25 mcg, intravenous, Every 5 min PRN, uncontrolled pain on PACU admission, Starting on Sun07/06/21 at 1238, For 4 doses, Phase I, Maximum dosage of fentanyl of 100 mcg for arrival to PACU, then proceed to PACU 1st line analgesic., Indications: Pain haloperidol (HALDOL) injection 1 mg 1 mg, intravenous, Administer over 5 Minutes, Once as needed, nausea, vomiting, Starting on Sun07/06/21 at 1238, For 1 dose, Phase I, If post-operative nausea and/or vomiting is not relieved by ondansetron within 30 minutes or if more than 8mg of ondansetron have been given within the last 6 hours. HYDROmorphone (DILAUDID) injection 0.2 mg 0.2 mg, intravenous, Administer over 2 Minutes, Every 10 min PRN, 1st line for pain, Starting on Sun07/06/21 at 1238, For 10 doses, Phase I, Switch to 2nd line analgesic order if pain is uncontrolled or increasing after 1 dose. Notify Anesthesiologist if total PACU dose reaches 2 mg and pain score 5/10 or more., Indications: Pain HYDROmorphone (DILAUDID) injection 0.4 mg 0.4 mg, intravenous, Administer over 2 Minutes, Every 10 min PRN, 2nd line for pain, Starting on Sun07/06/21 at 1238, For 5 doses, Phase I, May administer 10 mintes after 1st dose of 1st line analgesic agent for uncontrolled or increasing pain. Revert to 1st line dose if POSS of 3. Notify Anesthesiologist if total PACU dose reaches 2 mg and pain score 5/10 or more., Indications: Pain insulin lispro (HumaLOG, ADMELOG) 100 unit/mL injection 1-5 Units 1-5 Units, subcutaneous, Once as needed, high blood sugar, Starting on Sun07/06/21 at 1238, For 1 dose, Phase I, Blood Sugar Mid Dose - Surgical/Post-Op ICU 139 or less No insulin 140 - 175 1 unit 176 - 200 2 unit 201 - 250 3 units 251 - 299 5 units Greater than 299 Call MD for hyperglycemia management instructions Do NOT hold for NPO status., Indications: Diabetes Mellitus labetaloL (NORMODYNE,TRANDATE) injection 5 mg 5 mg, intravenous, at 30 mL/hr, Administer over 2 Minutes, Every 10 min PRN, high blood pressure, Starting on Sun07/06/21 at 1238, For 4 doses, Phase I, Max cumulative dose 20 mg. Dose if systolic blood pressure greater than 180 AND HR greater than 70. lidocaine 1% w/ EPINEPHrine 1:100,000 (20 mL), bupivacaine 0.25% (20 mL), sodium bicarbonate 8.4% (8 mL) solution (CANCELED) As needed, Starting on Sun07/06/21 at 1235, Intra-Op 1235 (Given - Provid er: Luz Lewis MD) meperidine (DEMEROL) preservative free injection 12.5 mg 12.5 mg, intravenous, Administer over 5 Minutes, Every 10 min PRN, shivering, Starting on Sun07/06/21 at 1238, For 2 doses, Phase I, Max cumulative dose 25 mg., Indications: Shivering naloxone (NARCAN) 0.4 mg/mL injection 0.04-0.4 mg 0.04-0.4 mg, intravenous, Once as needed, other, excessive sedation/respiratory depression, Starting on Sun07/06/21 at 1238, For 1 dose, Phase I, BEFORE ADMINISTERING [...] Once as needed, nausea, vomiting, Starting on Sun07/06/21 at 1238, For 1 dose, Phase I, Proceed to haloperidol if more than 8 mg of ondansetron have been given within the last 6 hours., Indications: Prevention of Post-Operative Nausea and Vomiting oxyCODONE (ROXICODONE) tablet 5 mg 5 mg, oral, As needed, 1st line for pain, Starting on Sun07/06/21 at 1238, For 2 doses, Phase I, 1st ORAL choice for pain, when the patient is able to tolerate PO medications. May repeat in 1 hour if pain is uncontrolled or increasing after 1st dose., Indications: Pain racepinephrine (ASTHMANEFRIN) 2.25 % nebulizer solution 0.5 mL 0.5 mL, nebulization, As needed, other, stridor, Starting on Sun07/06/21 at 1238, For 2 doses, Phase I, Notify Anesthesiologist. , Indications: Wheezing sodium chloride 0.9% flush 0.5-20 mL 0.5-20 mL, intra-catheter, As needed, line care, Starting on Sun07/06/21 at 1136, Pre-Op, Flush volume based on line type and size. Flush before and after each use. sodium chloride 0.9% irrigation (CANCELED) As needed, Starting on Sun07/06/21 at 1210, Intra-Op 1210 (Given - Provid er: Luz Lewis MD - Comment: PRN on sterile field) documented in this encounter Orders Medications Ordered That Rubén ht Not Have Been Administered Count Last Ordered Date First Ordered Date albuterol 2.5 mg /3 mL (0.08 3 %) nebulizer solution 2.5 mg 1 07/06/2021 dextrose (D10W) 10% bolus 250 mL 07/07/19 diphenhydrAMINE (BENADRYL) i njection 12.5 mg 1 07/06/2021 fentaNYL (SUBLIMAZE) preserv ative free injection 25 mcg 1 07/06/2021 gabapentin (NEURONTIN) capsule 300 mg haloperidol (HALDOL) injection 1 mg 1 07/06 HYDROmorphone (DILAUDID) injection 0.2 mg 07/06/2021 HYDROmorphone (DILAUDID) injection 0.4 mg 07/06/2021 insulin lispro (HumaLOG, ADM ELOG) 100 unit/mL injection 1-5 Units 07/06/2021 labetaloL (NORMODYNE,TRANDAT E) injection 5 mg 07/06/2021 meperidine (DEMEROL) preserv ative free injection 12.5 mg 07/06/2021 naloxone (NARCAN) 0.4 mg/mL injection 0.04-0.4 mg 07/06/2021 ondansetron (ZOFRAN) injection 4 mg 07/06 oxyCODONE (ROXICODONE) tablet 5 mg 2021 racepinephrine (ASTHMANEFRIN ) 2.25 % nebulizer solution 0.5 mL 1 07/06/2021 sodium chloride 0.9% flush 0.5-20 mL 1 06/21 Diet Count Last Ordered Date First Orde red Date ADULT DISCHARGE DIET 1 07/06/2021 Nursing Count Last Ordered Date First Orde red Date ACTIVITY 1 07/06/2021 DISCHARGE INSTRUCTIONS 2 07/06/2021 NURSING COMMUNICATION 5 07/06/2021 PATIENT MAY SHOWER 1 07/06/2021 WOUND CARE 1 07/06/2021 Discharge Count Last Ordered Date First Orde red Date DISCHARGE PATIENT 1 07/06/2021 documented in this encounter Care Teams Mold Maker Plaster Relationship Specialty Start Date End Date Terry Bender DO PCP - General Internal Medicine 01/03/18 05/14/22 Wilmer Taylor MD [address] [address] Referring Physician Obstetrics and Gynecology 05/09/12 Jeffrey Koch MD [address] [place] [address] Consulting Physician Rheumatology 02/03/21 documented as of this encounter
--- OUTSIDE RECORDS SUMMARY | 2024-05-03 02:52 | XMS_ITS | Encounter Summary ---
Author Organization [facility] Address [address] [facility] [address] [place] [address] Phone Care Team Providers Care Curriculum Facilitator Name Role Phone Terry Bender DO Primary Care Provider [phone] Wilmer Taylor MD Unavailable [phone] Jeffrey Koch MD Unavailable [phone] Reason for Referral * Pulmonology (Routine) - Closed Specialty Diagnoses / Procedures Referred By Contac t Referred To Contact Pulmonology Diagnoses Malignant neoplasm of lung, unspecified laterality, unspecified part of lung (HCC) Procedures Pulmonary Function Test -[facility] Adult PFT Lab- CAM-8D; Spirometry with Bronchodilator, DLCO; Lung volumes; Pleth with Airway Resistance Ranjan Cazares MD [address] [facility] [id number] [place] [address] Phone: tel: fax: Referral ID Status Reason Start Date Expiration Date Visits Re quested Visits Authorized [id number] Closed 08/31/2021 09/30/2022 1 1 Encounter Details Date Type Department Care Team (Late st Contact Info) Description 08/31/2021 Orders Only [facility] Surgery [address] [facility] [address] [place] [address] Ranjan Cazares MD [address] [facility] [id number] [place] [address] Malignant neoplasm of lung, unspecified laterality, unspecified [...] on file 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 FVC %PRE PRED 83 % [facility] FVC POST [address] [facility] FVC %POST PRED 86 % [facility] FEV1 PRE [address] [facility] FEV1 %PRE PRED 60 % [facility] FEV1 POST [address] [facility] FEV1 %POST PRED 66 % [facility] FEV1/FVC PRE 55.9 % [facility] FEV1/FVC POST 58.8 % [facility] FRC [address] PRE [address] [facility] FRC PL %PRE PRED 154 % [facility] RV PRE [address] [facility] RV %PRE PRED 176 % [facility] TLC PRE 6.[address] [facility] TLC %PRE PRED 127 % [facility] DLCO PRE 9.1 ml/min/mmH g [facility] DLCO %PRE PRED 48 % [facility] Anatomical Region Laterality Modality PFT 09/01/2021 10:4 [...] of lung (HCC)- Primary Malignant neoplasm of lung, unspecified laterality, unspecified part of lung (HCC) documented in this encounter Care Teams Curriculum Facilitator Relationship Specialty Start Date End Date Terry Bender DO PCP - General Internal Medicine 01/03/18 05/14/22 Wilmer Taylor MD [facility] [address] [address] Referring Physician Obstetrics and Gynecology 05/09/12 Jeffrey Koch MD [address] [place] [address] Consulting Physician Rheumatology 02/03/21 documented as of this encounter
--- OUTSIDE RECORDS SUMMARY | 2024-05-03 02:52 | XMS_ITS | Encounter Summary ---
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] Procedures TN SURG DIAGNOSTIC EXAM, ANORECTAL Exam Under Anestheisa, Anoscopy, Biopsoy of Perianal Lesions Referral ID Status Reason Start Date Expiration Date Visits Re quested Visits Authorized [id number] 1 1 Encounter Details Date Type Department Care Team (Late st Contact Info) Description 07/06/2021 12:10 PM CDT Anesthesia Event [facility] Operating Room [address] [place] [address] Sudhir Lindquist MD [address] [place] [address] Keesha Ware NP [address] [facility] [address] [place] [address] Anesthesia Record Procedure Summary Procedure Name Responsible Anesthesiologist Anesthesia Start Time Anesthesia Stop Time Exam Under Anestheisa, Anoscopy, Biopsoy of Perianal Lesions Sudhir Lindquist MD 07/06/21 1210 07/06/21 1240 Events Date Time Event Comment 07/06/2021 1149 1210 An Start 1212 In Room 1213 An Start Data 1220 An Induction The patient was reevaluated immediately before moderate or deep sedation use and before anesthesia induction. 1220 Anesthesia Ready 1225 Proc Start 1230 Proc Fin 1233 an stop data 1234 Out of Room 1235 Handoff to RN I completed my handoff [...] disposition at the time of handoff: PACU 1240 An Stop Meds Name Total lidocaine (CARDIAC) syringe 2 % 2 mL propofol 50 mg propofol 67.76 mg LR 300 mL * Agents Name O2 * Blood No blood administrations on file. Lines, Drains, and Airways Type Details Placement Removal RETIRED Surgical Site 04/08/19; 1327; Gr oin; 03/25/24 (Retired LDA, Removed/Completed by [email or web address] with LDA Utility); 1213 (Retired LDA, Removed/Completed by [email or web address] with LDA Utility) 04/08/19 1327 by Bruna May RN 03/25/24 1213 by Discharge Provider, Automatic RETIRED Surgical Site 04/08/19; 1327; Vagina; 03/25/24 (Retired LDA, Removed/Completed by [email or web address] with LDA Utility); 1213 (Retired LDA, Removed/Completed by [email or web address] with LDA Utility) 04/08/19 1327 by Bruna May RN 03/25/24 1213 by Discharge Provider, Automatic Peripheral IV Placement Date: 07/06/21; Placement Time: 1145; Change Due: 07/10/21; Catheter Size: 20 G; Orientation: Left, Posterior; Location: Hand; Site Prep: Chlorhexidine; Technique: Anatomical landmarks; Inserted by: DIGNA Ascencio; Insertion Attempts: 1; Patient Tolerance: Tolerated well; Removal Date: 07/06/21; Removal Time: 1328; Removal Reason: Therapy completed 07/06/21 1145 by Mima Montiel RN 07/06/21 1328 by Deborah Long, DIGNA RETIRED Surgical Site 07/06/21; 1229; Buttocks; 03/25/24 (Retired LDA, Removed/Completed by [facility] with LDA Utility); 1213 (Retired LDA, Removed/Completed by [facility] with LDA Utility) 07/06/21 1229 by Yvette [...] on file 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 Gender Identity Not on file Sexual Orientation Not on file documented as of this encounter OR Notes * Anesthesia Postprocedure Evaluation - Sudhir Lindquist MD - 07/07/2021 9:07 AM CDT Patient: Loida Guillory Procedure Summary Date: 07/06/21 Room / Location: [facility] OPERATING ROOM 14W / [facility] OPERATING ROOM Anesthesia Start: 1210 Anesthesia Stop: 1240 Procedure: Exam Under Anestheisa, Anoscopy, Biopsoy of Perianal Lesions (N/A ) Diagnosis: Vulvar intraepithelial neoplasia III (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]) Surgeons: Luz Lewis MD Responsible Provider: Sudhir Lindquist MD Anesthesia Type: general/TIVA ASA Status: 3 Anesthesia Type: general/TIVA Last vitals BP 117/68 Pulse 71 Temp 36.3 ??C (97.4 ??F) (Transdermal) Resp 20 SpO2 97% Anesthesia Post Evaluation Patient location during evaluation: PACU Patient participation: complete - patient participated Level of consciousness: follows simple commands and fully awake Pain management: adequate Airway patency: adequate Cardiovascular status: acceptable and hemodynamically stable Respiratory status: acceptable Hydration status: acceptable Pt is: normothermic Nausea/Vomiting status: none No complications documented. * Anesthesia Preprocedure Evaluation - Sudhir Lindquist MD - 07/06/2021 11:46 AM CDT Images from the original note were not included. Anesthesia Evaluation Loida Guillory is a 71 y.o. 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 Cancer type: vulvar intraepithelial neoplasia. + Rheumatological disease - rheumatoid arthritis. Pertinent negatives: diabetes mellitus; thyroid disease and obesity (BMI >30) Functional Capacity Functional capacity: 4-6 METs Review of Systems Pertinent negatives: productive cough; wheezing; SOB; recent cold/flu; fever and chest pain Patient Active Problem List Diagnosis ??? Anal dysplasia ??? Hypertension ??? Encounter for postoperative care ??? HAWA III (vulvar intraepithelial neoplasia III) ??? 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) ??? Neck pain ??? 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 Arthritis [...] file. Allergies Allergen Reactions ??? Omeprazole Rash Taking? Last Dose Start Date End Date Provider acetaminophen (TYLENOL) 500 mg tablet 04/08/19 -- Maria Isabel Horan MD Take 2 tablets (1,000 mg total) by mouth every 6 (six) hours as needed for pain amLODIPine (NORVASC) 10 mg tablet -- -- Mesha Greer MD ascorbic acid (VITAMIN C) 500 mg tablet,chewable -- -- Mesha Greer MD aspirin 81 mg enteric coated tablet -- -- Mesha Greer MD budesonide-formoteroL (SYMBICORT) 160-4.5 mcg/actuation inhaler -- -- Mesha Greer MD calcium carbonate-vitamin D3 1,500 mg (600mg elemental) -800 unit per tablet -- -- Mesha Greer MD famotidine (PEPCID) 20 mg tablet 02/26/21 -- Mesha Greer MD folic acid (FOLVITE) 1 mg tablet 02/28/21 -- Martina Elizabeth PA Take 1 tablet (1 mg total) by mouth daily after lunch losartan (COZAAR) 25 mg tablet -- -- Mesha Greer MD methotrexate 2.5 mg tablet 02/28/21 -- Martina Elizabeth PA Take 5 tablets (12.5 mg total) by mouth every 7 days Every Sunday nicotine (NICODERM CQ) 21 mg -- -- Mesha Greer MD omega [id number] oil 100-160-1,000 mg capsule -- -- Mesha Greer MD Current Facility-Administered Medications: ??? acetaminophen (TYLENOL) tablet 1,000 mg, 1,000 mg, oral, Once ??? gabapentin (NEURONTIN) capsule 300 mg, 300 mg, oral, Once ??? sodium chloride 0.9% flush 0.5-20 mL, 0.5-20 mL, intra-catheter, PRN Social History Tobacco Use Smoking Status Former Smoker ??? Packs/day: 0.25 ??? Years: 50.00 ??? Pack years: 12.50 ??? Start date: 1968 ??? Quit date: 2014 ??? Years since quittin.2 Smokeless Tobacco Never Used Substance and Sexual Activity Alcohol Use Never Substance and Sexual Activity Drug Use Never Family History Problem Relation Age of [...] requested labs within last 720 hours. RDW: 06/20/2021: 13.2 % MCHC: 06/20/2021: 33.5 g/dL MCH: 06/20/2021: 33.0 pg MCV: 06/20/2021: 98.5 fL Hct: 06/20/2021: 38.8 % Hgb: 06/20/2021: 13.0 g/dL WBC: 06/20/2021: 10.0 Thousand/uL MPV: 06/20/2021: 10.4 fL Platelets: 06/20/2021: 281 Thousand/uL RDW CV: No results found for requested labs within last 720 hours. RDW Sd: No results found for requested labs within last 720 hours. BMP Glucose: 06/20/2021: 124 mg/dL (H) Calcium: 06/20/2021: 10.3 mg/dL Sodium: 06/20/2021: 139 mmol/L Potassium: 06/20/2021: 4.3 mmol/L CO2: 06/20/2021: 26 mmol/L Chloride: 06/20/2021: 103 mmol/L BUN: 06/20/2021: 22 mg/dL Creatinine: 06/20/2021: 1.10 mg/dL (H) DOS Physical Exam Medical history, medications, and allergies reviewed. Attestation: This PAT evaluation 07/06/2021. Airway Exam: Mallampati: III Cervical ROM: FROM and limited extension TM distance: normal Cardiovascular Exam: Rate: regular Rhythm: regular Pulmonary Exam: LCTA, bilat EENT Exam: trachea midline Dental Exam: Otherwise appears intact Anesthesia Plan ASA 3 My patient is approved for the Anesthesia Controlled Medication protocol when under care of a EQUIPMENT TESTER Planned anesthesia: General/TIVA Team communication plan: mask Induction: Induction: intravenous. Postoperative Plan: No plan for postoperative opioid use. No postoperative mechanical ventilation intended. Patient's planned disposition post procedure is Outpatient. Informed Consent: Discussed plan with EQUIPMENT TESTER. Anesthesia plan and risks discussed with patient. Plan and Consent Comments: Backup plan is a general anesthetic with or without an endotracheal tube or LMA as required Consent and Attending signature: I and/or my [...] MAR Action Action Date Dose Rate Site Lactated Ringer's (LR) infusion intravenous, Continuous PRN, Starting on Sun07/06/21 at 1212, Anesthesia Intra-op New Bag 07/06/2021 12:12 PM CDT lidocaine (cardiac) (XYLOCAINE) preservative free injection intravenous, As needed, Starting on Sun07/06/21 at 1220, Anesthesia Intra-op, Indications: Ventricular ArrhythmiasIndications:V entricular Arrhythmias Given 07/06/2021 12:20 PM CDT 2 mL propofoL (DIPRIVAN) 10 mg/mL IV intravenous, Continuous PRN, Starting on Sun07/06/21 at 1220, Anesthesia Intra-op New Bag 07/06/2021 12:20 PM CDT 100 mcg/kg/min 36.96 mL/hr propofoL (DIPRIVAN) 10 mg/mL IV intravenous, As needed, Starting on Sun07/06/21 at 1220, Anesthesia Intra-op Given 07/06/2021 12:20 PM CDT 50 mg documented in this encounter Care Teams Tank Tester Relationship Specialty Start Date End Date Terry Bender DO PCP - General Internal Medicine 01/03/18 05/14/22 Wilmer Taylor MD [address] [facility] [address] [address] Referring Physician Obstetrics and Gynecology 05/09/12 Jeffrey Koch MD [address] [facility] [address] Consulting Physician Rheumatology 02/03/21 documented as of this encounter
--- OUTSIDE RECORDS SUMMARY | 2024-05-03 02:52 | XMS_ITS | Encounter Summary ---
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) (Primary Dx); Neck pain Social History Tobacco Use Types Packs/Day Years Used Date Smoking Tobacco: Former Cigarettes 0.3 50 1 969 - 2015 Smokeless Tobacco: Never Alcohol Use Standard Drinks/Week Comments Never 0 (1 standard drink = 0.6 oz pur e alcohol) AUDIT-C Answer Date Recorded Frequency of Alcohol Consumption Never 02/06/2019 Average Number of Drinks Not on file 10/17/2 019 Frequency of Binge Drinking Not on file 01/21 Comments No Sex and Gender Information Value Date Recorded Sex Assigned at Not on file Legal Sex Female 10:10 AM PICKER AND SORTER LOAD AND UNLOAD Gender Identity Not on file Sexual Orientation Not on file documented as of this encounter Last Filed Vital Signs Vital Sign Reading Time Taken Comments Blood Pressure 132/74 03/14/2021 10:19 AM PICKER AND SORTER LOAD AND UNLOAD Pulse 64 03/14/2021 10:19 AM PICKER [employer] SORTER LOAD AND UNLOAD Temperature 36.4 ??C (97.6 ??F) 03/14/2021 10:[address] Respiratory Rate - - Oxygen Saturation 94% 03/14/2021 10:19 AM PICKER AND SORTER LOAD AND UNLOAD Inhaled Oxygen Concentration - - Weight 64.1 kg (141 lb 6.4 oz) 03/14/2021 10:19 AM PICKER AND SORTER LOAD AND UNLOAD Height - - Body Mass Index 25.05 09/27/2020 9:39 AM CDT documented in this encounter Patient Instructions * Patient Instructions* Martina Elizabeth PA - 03/14/2021 10:30 AM PICKER AND SORTER LOAD AND UNLOAD Images from the original note were not included. Patient Education Neck Exercises BEEF TRIMMER: Neck exercises help reduce neck pain, and improve neck movement and strength. Neck exercises also help prevent long-term neck problems. What you need to know about neck exercises: ?? Do the exercises every day, or as often as directed by your healthcare provider. ?? Move slowly, gently, and smoothly. Avoid fast or jerky motions. ?? Stand and sit the way your healthcare provider shows you. Good posture may reduce your neck pain. Check your posture often, even when you are not doing your neck exercises. How to perform neck exercises safely: ?? Exercise position: You may sit or stand while you do neck exercises. Face forward. Your shoulders should be straight and relaxed, with a good posture. ?? Head tilts, forward and back: Gently bow your head and try to touch your chin to your chest. Your healthcare provider may tell you to push on the back of your neck to help bow your head. Raise your chin back to the starting position. Tilt your head back as far as possible so you are looking up at the ceiling. Your healthcare provider may tell you to lift your chin to help tilt your head back. Return your head to the starting position. ?? Head tilts, side to side: Tilt your head, bringing your ear toward your shoulder. Then tilt yourhead toward the other shoulder. ?? Head turns: Turn your head to look over your shoulder. Tilt your chin down and try to touch it to your shoulder. Do not raise your shoulder to your chin. Face forward again. Do the same on the other side. ?? Head rolls: Slowly bring your chin toward your chest. Next, roll your head to the right. Your ear should be positioned over your shoulder. Hold this position for 5 seconds. Roll your head back toward your chest and to the left into the same position. Hold for 5 seconds. Gently roll your head back and around in a clockwise [place] 3 times. Next, move your head in the reverse direction (counterclockwise) in a [place] 3 times. Do not shrug your shoulders upwards while you do this exercise. Contact your healthcare provider if: ?? Your pain does not get better, or gets worse. ?? You have questions or concerns about your condition, care, or exercise program. ?? 2017 U-NOTE Information is for End User's use only and may not be sold, redistributed or otherwise used for commercial purposes. All illustrations and images included in CareNotes?? are the copyrighted property of [employer]. or [employer]. The above information is an congressional district aide only. It is not intended as medical advice for individual conditions or treatments. Talk to your doctor, nurse or pharmacist before following any medical regimen to see if it is safe and effective for you. ER AND SORTER LOAD AND UNLOAD documented in this encounter Progress Notes * Martina Elizabeth PA - 03/14/2021 10:30 AM CST Subjective/Objective Patient ID: Loida Guillory is a 70 y.o. female. Chief Complaint RA C2: Here for f/u of results. Started using Voltaren gel on neck and fingers with relief. Denies anyradicular pain. Wants home exercises for neck pain. Previous hx: Patient is a pleasant 70-year-old female presenting with a prior diagnosis of RA (+RF,CCP) since [address] Silveira. Initially she was c/o difficulty gripping and pain in her hands however was put on MTX 10mg with good response. MTX was increased to 12.5mg weekly and she has remained stable at this dose since 2014. Her past bat boy/girl and so f/u with Dr. Powers. Was having some mild renal insufficiency per patient report so was not increasing MTX but they did try and add HCQ 300mg daily; however, patient was worried about side effects so medication was not started. ?? C/o some pain in her right 4th PIP today as well as neck pain. Neck pain is worse with activity andimproves with rest. Will have to slowly hang her head to help alleviate pain while grocery shopping. Had XR of neck recently by rheum Dr. Powers at [facility] that showed arthritis and scoliosis per patient report. Given Rx NSAID and patient noted she could not take this with her other medications and was told to avoid ibuprofen. Patient did not start NSAID. Does take tylenol 2 tabs prnwith some relief. Will usually only need about once per week. Patient defers PT. ?? Denies rashes, photosensitivity, sicca sx, raynauds, oral ulcers, eye pain or redness, cough or dyspnea, pleuritic pains. ?? Medical hx: HTN, COPD, GERD, vulvar cancer s/p resection Denies other heart, lung, liver, thyroid, and/or kidney issues. Denies hx of gout, blood clots, transfusions, or hepatitis. ?? Family hx: denies FH for autoimmune diseases. ?? Social hx:Former smoker (quit 2014); no alcohol; occupation: retired ?? Bold X is a current medication. Medication [...] NSAIDs X Voltaren gel otc Prednisone ? Review of Systems Constitutional: Negative for fatigue, fever and unexpected weight change. HENT: Negative for nosebleeds and trouble swallowing. Eyes: Negative for photophobia, pain and redness. Respiratory: Negative for cough and shortness of breath. Cardiovascular: Negative for chest pain and leg swelling. Gastrointestinal: Negative for abdominal pain. Musculoskeletal: Positive for joint pain. Skin: Negative for rash. Physical exam: Constitutional:well developed, well nourished, in no acute distress, alert and oriented X 3 Nose: normal Ears: normal external appearance Eyes: Pupils are equal. Chest:Normal chest wall and respirations. Extremities: No clubbing or cyanosis Skin: no rashes Neurologic: normal mental status, speech normal, alert and oriented x3 Musculoskeletal: See CDAI. H/B nodes bilaterally. Assessment and Plan: Diagnoses and all orders for this visit: 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) (Primary) Assessment & Plan: Seropositive RA (+RF, CCP) that remains well controlled with MTX 12.5mg weekly. Main complaints arepain involving the R 4th PIP joints and cervical spine which are degenerative however is respondingwell to Voltaren gel otc. Will continue MTX 12.5mg weekly and folic acid 1mg daily. Follow up in 3 months. Sooner if needed. Seen with Dr. Koch. Neck pain Assessment & Plan: Pain worse with activity and improved with rest. Denies radiating pain. 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 Patient defers PT and worried about NSAIDs with her current medication regimen. Taking tylenol otc prn with some relief. Using Voltaren gel otc prn with good relief. Will give handout of home exercises for neck pain. Martina Elizabeth PA-C Cosigned by Jeffrey Koch MD at 03/14/2021 11:57 AM PICKER AND SORTER LOAD AND UNLOAD ER AND SORTER LOAD AND UNLOAD ER AND SORTER LOAD AND UNLOAD documented in this encounter Miscellaneous Notes * Assessment & Plan Note - Martina Elizabeth PA - 03/14/2021 10:51 AM CSTAssociated Problem(s): Neck pain Pain worse with activity and improved with rest. Denies radiating pain. 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 Patient defers PT and worried about NSAIDs with her current medication regimen. Taking tylenol otc prn with some relief. Using Voltaren gel otc prn with good relief. Will give handout of home exercises for neck pain. ER AND SORTER LOAD AND UNLOAD * Assessment & Plan Note - Martina Elizabeth PA - 03/14/2021 10:47 AM CSTAssociated Problem(s): 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) Seropositive RA (+RF, CCP) that remains well controlled with MTX 12.5mg weekly. Main complaints arepain involving the R 4th PIP joints and cervical spine which are degenerative however is respondingwell to Voltaren gel otc. Will continue MTX 12.5mg weekly and folic acid 1mg daily. Follow up in 3 months. Sooner if needed. Seen with Dr. Koch. ER AND SORTER LOAD AND UNLOAD documented in this encounter Plan of Treatment Not on file documented as of this encounter Visit Diagnoses Diagnosis 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)- Primary Neck pain Cervicalgia documented in this encounter Care Teams Yard Assistant Relationship Specialty Start Date End Date Terry Bender DO PCP - General Internal Medicine 01/03/18 05/14/22 Wilmer Taylor MD [address] [facility] [address] [place] [address] Referring Physician Obstetrics and Gynecology 05/09/12 Jeffrey Koch MD [address] [facility] [place] [address] Consulting Physician Rheumatology 02/03/21 documented as of this encounter
--- OUTSIDE RECORDS SUMMARY | 2024-05-03 02:52 | XMS_ITS | Encounter Summary ---
Author Organization [facility] Address [address] [place] [address] Phone Care Team Providers Care Television Production Technician Name Role Phone Terry Bender Primary Care Provider [phone] Wilmer Taylor MD Unavailable [phone] Jeffrey Koch MD Unavailable [phone] Encounter Details Date Type Department Care Team (Late st Contact Info) Description 02/28/2021 Telephone [facility] [address] [place] [address] Martina Elizabeth PA [address] [place] [address] Social History Tobacco Use Types Packs/Day Years [...] on file Legal Sex Female 10:10 AM ELECTRIC OPERATOR Gender Identity Not on file Sexual Orientation Not on file documented as of this encounter Miscellaneous Notes * Telephone Encounter - Alycia Jimenez - 02/28/2021 2:12 PM CST Spoke w/Pauline to let her know Rajeev will not release to us as we are not on her care team & have not ordered the imaging. Pauline will obtain the results & bring to the follow up appt. TRIC OPERATOR * Telephone Encounter - Martina Elizabeth PA - 02/28/2021 12:30 PM ELECTRIC OPERATOR Can we get XR of neck, hands, and feet from [facility]'s imaging center? She had XR done there previously by her past rheum Dr. Powers. Thanks. If for some reason we do not get these images or cannot get these, can we let her daughter Pauline know? She is listed under patient contact and she will try and get the images to bring at her f/u. TRIC OPERATOR documented in this encounter Plan of Treatment Not on file documented as of this encounter Visit Diagnoses Not on filedocumented in this encounter Care Teams Television Production Technician Relationship Specialty Start Date End Date Terry Bender DO PCP - General Internal Medicine 01/03/18 05/14/22 Wilmer Taylor MD [address] [facility] [address] [place] [address] Referring Physician Obstetrics and Gynecology 05/09/12 Jeffrey Koch MD [address] [facility] [address] Consulting Physician Rheumatology 02/03/21 documented as of this encounter
--- OUTSIDE RECORDS SUMMARY | 2024-05-03 02:52 | XMS_ITS | Encounter Summary ---
Author Organization [facility] Address [address] [place] [address] Care Team Providers Care Photographer News Name Role Phone Terry Bender DO Primary Care Provider [phone] Wilmer Taylor MD Unavailable [phone] Jeffrey Koch MD Unavailable [phone] Encounter Details Date Type Department Care Team (Latest Contact Info) Description 08/31/2021 2:25 PM CDT - 08/31/2021 2:31 PM CDT Hospital Encounter [facility] [address] [place] [id number] Diagnosis unknown Discharge Disposition: Discharge to home [...] on file Legal Sex Female 10:10 AM WATER 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 ??Irregular soft tissue mass in the right upper lobe measuring 1.6 x 1.3 cm associated with tethering of the pleura, suspicious for primary bronchogenic malignancy. This has been biopsied at an outside hospital. Please correlate with pathology results. 2. ??Incompletely evaluated necrotic right cervical lymph node, suspicious for metastatic disease and better evaluated on CT neck 07/22/2021. 3. ??Groundglass and tree-in-bud opacities in the right upper lobe, nonspecific but may represent an infectious/inflammatory process. Attention on follow-up is recommended. 4. ??Mild to moderate centrilobular emphysema. The findings, conclusions and recommendations within this report do not replace the initial findings, conclusions ??and recommendations made at the facility where the study was performed based upon the imaging and clinical condition at that time. ??Comparison with the prior report and clinical history is necessary. ??The provided images may or may not represent the [place] source data set and thus may contain changes that may lower the accuracy of this second-opinion interpretation. Dictated by: Marco Moscoso MD PHD The radiology attending physician has personally reviewed this study, and had reviewed and/or edited this written report and agrees with it. Electronically signed by: Abbey Corrigan 08/31/2021 3:32 PM CDT EXAMINATION: RADIOLOGY CONSULTATION ON OUTSIDE IMAGING STUDY STUDY INITIALLY PERFORMED: 08/11/2021 at [facility]. TYPE OF STUDY: Multiple CT images of [...] images submitted through [facility] DATE OF CONSULTATION: 08/31/2021 2:29 PM HISTORY: Malignant neoplasm of the lung. History of rheumatoid arthritis and high-grade squamous intraepithelial perianal lesions. COMPARISON: None available. FINDINGS: Lobulated, solid right upper lobe pulmonary mass with irregular margins measuring up to 1.6 x 1.3cm with associated tethering of the pleura. No pleural effusion or other pulmonary nodule/mass identified. Groundglass and tree in in bud opacities in the right upper lobule, nonspecific, best seen on series 4, image 48. Mild to moderate centrilobular emphysema. Biapical pleural parenchymal scarring. There is an incompletely evaluated necrotic right cervical lymph node measuring at least 1.8 x 2.2 cm in axial dimension, better characterized on CT neck dated 07/22/2021. Normal thyroid. Normal caliber trachea with areas of mucus plugging in the right lower lobe. Mild cardiomegaly. No pericardial effusion. Atherosclerotic calcifications of the coronary arteries and abdominal aorta. Calcified old granulomatous disease in the left hilum. No supraclavicular, axillary, or mediastinal lymphadenopathy. Images of the upper abdomen demonstrate calcified old granulomatous disease in the spleen and nonvisualization of the right kidney, otherwise unremarkable. Multilevel degenerative changes of the spine. No suspicious osseous lesions. Procedure Note Muriel Vann MD - 08/31/2021 EXAMINATION: RADIOLOGY CONSULTATION ON OUTSIDE IMAGING STUDY STUDY INITIALLY PERFORMED: 08/11/2021 at [facility]. TYPE OF STUDY: Multiple CT images of [...] images submitted through [facility] DATE OF CONSULTATION: 08/31/2021 2:29 PM HISTORY: Malignant neoplasm of the lung. History of rheumatoid arthritis and high-grade squamous intraepithelial perianal lesions. COMPARISON: None available. FINDINGS: Lobulated, solid right upper lobe pulmonary mass with irregular margins measuring up to 1.6 x 1.3cm with associated tethering of the pleura. No pleural effusion or other pulmonary nodule/mass identified. Groundglass and tree in in bud opacities in the right upper lobule, nonspecific, best seen on series 4, image 48. Mild to moderate centrilobular emphysema. Biapical pleural parenchymal scarring. There is an incompletely evaluated necrotic right cervical lymph node measuring at least 1.8 x 2.2 cm in axial dimension, better characterized on CT neck dated 07/22/2021. Normal thyroid. Normal caliber trachea with areas of mucus plugging in the right lower lobe. Mild cardiomegaly. No pericardial effusion. Atherosclerotic calcifications of the coronary arteries and abdominal aorta. Calcified old granulomatous disease in the left hilum. No supraclavicular, axillary, or mediastinal lymphadenopathy. Images of the upper abdomen demonstrate calcified old granulomatous disease in the spleen and nonvisualization of the right kidney, otherwise unremarkable. Multilevel degenerative changes of the spine. No suspicious osseous lesions. IMPRESSION: 1. Irregular soft tissue mass in the right upper lobe measuring 1.6 x 1.3 cm associated with tethering of the pleura, suspicious for primary bronchogenic malignancy. This has been biopsied at an outside hospital. Please correlate with pathology results. 2. Incompletely evaluated necrotic right cervical lymph node, suspicious for metastatic disease and better evaluated on CT neck 07/22/2021. 3. Groundglass and tree-in-bud opacities in the right upper lobe, nonspecific but may represent an infectious/inflammatory process. Attention on follow-up is recommended. 4. Mild to moderate centrilobular emphysema. The findings, conclusions and recommendations within this report do not replace the initial findings, conclusions and recommendations made at the facility where the study was performed based upon the imaging and clinical condition at that time. Comparison with the prior report and clinical history is necessary. The provided images may or may not represent the [place] source data set and thus may contain changes that may lower the accuracy of this second-opinion interpretation. Dictated by: Marco Moscoso MD PHD The radiology attending physician has personally reviewed this study, and had reviewed and/or edited this written report and agrees with it. Electronically signed by: Muriel Vann M.D. us Ranjan Cazares MD IMG CT PROCEDURES Lupe l Result documented in this encounter Visit Diagnoses Diagnosis Diagnosis unknown documented in this encounter Care Teams Photographer News Relationship Specialty Start Date End Date YuliaTerry munguia PCP - General Internal Medicine 01/03/18 05/14/22 Wilmer Taylor MD [address] [address] Referring Physician Obstetrics and Gynecology 05/09/12 Jeffrey Koch MD [address] [place] [address] Consulting Physician Rheumatology 02/03/21 documented as of this encounter
--- OUTSIDE RECORDS SUMMARY | 2024-05-03 02:52 | XMS_ITS | Encounter Summary ---
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) (Primary Dx); Neck pain; group home current use 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 drug Social History [...] on file Legal Sex Female 10:10 AM ESCALATOR INSTALLER Gender Identity Not on file Sexual Orientation Not on file documented as of this encounter Last Filed Vital Signs Vital Sign Reading Time Taken Comments Blood Pressure 122/78 06/20/2021 9:58 AM ESCALATOR INSTALLER Pulse 64 06/20/2021 9:58 AM ESCALATOR INSTALLER Temperature 36.4 ??C (97.5 ??F) 06/20/2021 9:58 AM CS T Respiratory Rate - - Oxygen Saturation 96% 06/20/2021 9:58 AM ESCALATOR INSTALLER Inhaled Oxygen Concentration - - Weight 62.5 kg (137 lb 12.8 oz) 06/20/2021 9:58 AM ESCALATOR INSTALLER Height - - Body Mass Index 24.41 06/06/2021 9:55 AM ESCALATOR INSTALLER documented in this encounter Progress Notes * Martina Elizabeth PA - 06/20/2021 9:45 AM CST Images from the original note were not included. Subjective/Objective Patient ID: Loida Guillory is a 71 y.o. female. Chief Complaint RA HPI Returns for routine follow up. Denies any flares. Continues to use Voltaren gel on right 4th digit with good relief of pain. DoingHEP for neck pain without much relief but overall remains tolerable. Denies fevers, infections, rashes, mouth sores, cough, [...] Skin: Negative for rash. Vitals: Vitals BP 122/78 Pulse 64 Temp 36.4 ??C (97.5 ??F) Wt 62.5 kg (137 lb 12.8 oz) SpO2 96% BMI 24.41 kg/m?? Body mass index is 24.41 kg/m??. Bold X is a current medication. Medication Taking/taken D/C or avoidance reason Hydroxychloroquine ?? Pt worried about s/e Methotrexate -started 2015 X ?? Leflunomide ? Azathioprine ? Sulfasalazine [...] Labs Lab Results Component Value Date WBC 11.4 (H) 02/28/2021 HGB 13.4 02/28/2021 HCT 39.9 02/28/2021 MCV 100.0 02/28/2021 Lab Results Component Value Date GLUCOSE 114 (H) 02/28/2021 CALCIUM 9.9 02/28/2021 SODIUM 141 02/28/2021 POTASSIUM 4.1 02/28/2021 CO2 26 02/28/2021 CHLORIDE 105 02/28/2021 BUNSER 20 02/28/2021 CREATININE 0.98 (H) 02/28/2021 Lab Results Component Value Date ALT 14 02/28/2021 AST 18 02/28/2021 ALKPHOS 70 02/28/2021 BILITOT 0.4 02/28/2021 Lab Results Component Value Date SEDRATE 37 (H) 02/28/2021 Lab Results Component Value Date CRP 3.8 02/28/2021 Patient Global: 20 mm Provider Global: 20 [...] daily.Routine labs today. Follow up in 3 months.Sooner if needed. Orders: - Comprehensive metabolic panel; [...] prn with good relief. Continue home exercises. buttermaker current use 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 drug Assessment & Plan: Hepatitis negative: 02/2021 Orders: - Comprehensive metabolic panel; Future - CBC with auto differential; Future - Erythrocyte sedimentation rate; Future - CRP (acute phase); Future Martina Elizabeth PA-C Cosigned by Jeffrey Koch MD at 06/20/2021 12:43 PM ESCALATOR INSTALLER LATOR INSTALLER LATOR INSTALLER documented in this encounter Miscellaneous Notes * Assessment & Plan Note - Martina Elizabeth PA - 06/20/2021 10:12 AM CSTAssociated Problem(s): group home current use 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 drug Hepatitis negative: 02/2021 LATOR INSTALLER * Assessment & Plan Note - Martina Elizabeth PA - 06/20/2021 10:11 AM CSTAssociated Problem(s): Rheumatoid arthritis involving both [...] daily.Routine labs today. Follow up in 3 months.Sooner if needed. LATOR INSTALLER * Assessment & Plan Note - Martina Elizabeth PA - 06/20/2021 10:10 AM CSTAssociated Problem(s): Neck pain Pain worse with activity and improved with rest. Denies radiating pain. 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 Patient defers PT and worried about NSAIDs with her current medication regimen. Taking tylenol otc prn with some relief. Using Voltaren gel otc prn with good relief. Continue home exercises. LATOR INSTALLER documented in this encounter Plan of Treatment Not on file documented as of this encounter Procedures Procedure Name Priority Date/Time Associated Diagnosis Comments CBC WITH AUTO DIFFERENTIAL Routine 06/20/2021 10:11 AM ESCALATOR INSTALLER 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) buttermaker current use 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 drug ERYTHROCYTE SEDIMENTATION RATE Routine 06/20/2021 10:11 AM ESCALATOR INSTALLER 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) group home current use 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 drug CRP (ACUTE PHASE) Routine 06/20/2021 10: 11 AM ESCALATOR INSTALLER 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) group home current use 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 drug COMPREHENSIVE METABOLIC PANEL Routine 06/20/2021 10:11 AM ESCALATOR INSTALLER 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) buttermaker current use 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 drug documented in this encounter Results * (ABNORMAL) CRP (acute phase) (06/20/2021 10:11 AM ESCALATOR INSTALLER) C-RP 11.2(H) <8.0 mg/L [facility] Blood specimen (specimen) 06/20/2021 10:11 AM ESCALATOR INSTALLER 06/20/2021 10:11 AM ESCALATOR INSTALLER Martina JONES LAB BLOOD ORDERABLES Final Result [facility] [address] [place] [address] * Erythrocyte sedimentation rate (06/20/2021 10:11 AM ESCALATOR INSTALLER) Pathologist [facility] Erythrocyte sedimentation rate 28 < OR = 30 mm/h [facility] Blood specimen (specimen) 06/20/2021 10:11 AM ESCALATOR INSTALLER 06/20/2021 10:11 AM ESCALATOR INSTALLER Martina JONES LAB BLOOD ORDERABLES Final Result [facility] [address] [place] [address] * CBC with auto differential (06/20/2021 10:11 AM ESCALATOR INSTALLER) Pathologist [facility] WBC 10.0 3.8 - 10.8 Thousand/u L [facility] RBC, POC 3.94 3.80 - 5.10 Million/uL [facility] Hgb 13.0 11.7 - 15.5 g/dL [facility] Hct 38.8 35.0 - 45.0 % [facility] MCV 98.5 80.0 - 100.0 fL [facility] MCH 33.0 27.0 - 33.0 pg [facility] MCHC 33.5 32.0 - 36.0 g/dL [facility] Rdw 13.2 11.0 - 15.0 % [facility] Platelets 281 140 - 400 Thousand/u L [facility] MPV 10.4 7.5 - 12.5 fL [facility] Neutrophils, abs 7,280 1,500 - 7,800 cells/uL [facility] Lymphocytes, abs 1,770 850 - 3,900 cells/uL [facility] Monocyte abs 730 200 - 950 cells/uL [facility] Eosinophils, abs 100 15 - 500 cells/uL [facility] Basophils, abs 120 0 - 200 cells/uL [facility] Neutrophils 72.8 % [facility] Lymphocyte pct 17.7 % [facility] Monocytes 7.3 % [facility] Eosinophils 1.0 % [facility] Basophils 1.2 % [facility] Blood specimen (specimen) 06/20/2021 10:11 AM ESCALATOR INSTALLER 06/20/2021 10:11 AM ESCALATOR INSTALLER Martina JONES LAB BLOOD ORDERABLES Final Result [facility] [address] [place] [address] * (ABNORMAL) Comprehensive metabolic panel (06/20/2021 10:11 AM ESCALATOR INSTALLER) [facility] Glucose 124(H) 65 - 99 mg/dL [facility] Comment: ? Fasting reference interval For someone without known diabetes, a glucose value between 100 and 125 mg/dL is consistent with prediabetes and should be confirmed with a follow-up test. BUN 22 7 - 25 mg/dL [facility] Creatinine 1.10(H) 0.60 - 0.93 mg/dL [facility] Comment: For patients >49 years of age, the reference limit for Creatinine is approximately 13% higher for people identified as -Peruvian. eGFR NON-AFR. FINNISH 50(L) > OR = 60 mL/min/1. 73m2 [facility] EGFR 58(L) > OR = 60 mL/min/1. 73m2 [facility] BUN/creat ratio 20 6 - 22 (calc) [facility] Sodium 139 135 - 146 mmol/L [facility] Potassium, pl 4.3 3.5 - 5.3 mmol/L [facility] Chloride 103 98 - 110 mmol/L [facility] CO2 26 20 - 32 mmol/L [facility] Calcium 10.3 8.6 - 10.4 mg/dL [facility] Protein, sr 6.8 6.1 - 8.1 g/dL [facility] Albumin 4.1 3.6 - 5.1 g/dL [facility] GLOBULIN 2.7 1.9 - 3.7 g/dL (calc) [facility] Alb/glob ratio 1.5 1.0 - 2.5 (calc) [facility] Bilirubin, total 0.4 0.2 - 1.2 mg/dL [facility] Alk phos 66 37 - 153 U/L [facility] AST 18 10 - 35 U/L [facility] ALT (SGPT) 24 6 - 29 U/L [facility] Blood specimen (specimen) 06/20/2021 10:11 AM ESCALATOR INSTALLER 06/20/2021 10:11 AM ESCALATOR INSTALLER us Martina JONES LAB BLOOD ORDERABLES Final Result [facility] [address] [place] [address] documented in this encounter Visit Diagnoses Diagnosis 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)- Primary Neck pain Cervicalgia group home current use 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 drug documented in this encounter Care Teams Correctional Supervisor Relationship Specialty Start Date End Date Codey BendereDO PCP - General Internal Medicine 01/03/18 05/14/22 Wilmer Taylor MD [address] [address] Referring Physician Obstetrics and Gynecology 05/09/12 Jeffrey Koch MD [address] [place] [address] Consulting Physician Rheumatology 02/03/21 documented as of this encounter
--- OUTSIDE RECORDS SUMMARY | 2024-05-03 02:52 | XMS_ITS | Encounter Summary ---
Author Organization [facility] Healthcare Address [address] [place] [address] Care Team Providers Care Engineer And Geologist Name Role Phone Terry Bender DO Primary Care Provider [phone] Wilmer Taylor MD Unavailable Jeffrey Koch MD Unavailable [phone] Encounter Details Date Type Department Care Team (Latest Contact Info) Description 08/31/2021 9:03 PM CDT Hospital Encounter [facility] [address] [place] [address] Discharge Disposition: Discharge to home or self [...] on file Legal Sex Female 10:10 AM BRAIDING MACHINE OPERATOR Gender Identity Not on file [...] total) by mouth every morning 02/26/2021 omega 9-obc-uox-fish oil 100-160-1,000 mg capsuleIndicatio ns:hypertriglyce ridemia Take [...] up to 10 days 15 tablet 07/06/2021 05/12/202 2 documented as of this encounter Discharge Disposition Disposition Code Departure Means Destination Discharge to home or self care documented in this encounter Plan of Treatment Not on file documented as of this encounter Procedures Procedure Name Priority Date/Time Associated Diagnosis Comments XR TRANSFER OF OUTSIDE FILMS Routine 08/31/2021 9:03 PM CDT Diagnosis unknown documented in this encounter Results * XR Outside Reference (08/31/2021 9:03 PM CDT) Impressions [facility] - 08/31/2021 9:03 PM CDT These images are for Reference purposes only and have not been reviewed by [facility] Radiology. ??There will be no report generated by a [facility] Radiologist. Narrative [facility] - 08/31/2021 9:03 PM CDT EXAMINATION: ??Images For Reference Purposes Only Ranjan Cazares MD IMG XR PROCEDURES Lupe l Result [facility] documented in this encounter Visit Diagnoses Not on filedocumented in this encounter Care Teams Engineer And Geologist Relationship Specialty Start Date End Date Terry Bender DO PCP - General Internal Medicine 01/03/18 05/14/22 Wilmer Taylor MD [address] [facility] [address] [place] [address] Referring Physician Obstetrics and Gynecology 05/09/12 Jeffrey Koch MD [address] [place] [address] Consulting Physician Rheumatology 02/03/21 documented as of this encounter
--- OUTSIDE RECORDS SUMMARY | 2024-05-03 02:52 | XMS_ITS | Encounter Summary ---
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) (Primary Dx); Fatigue, unspecified type; 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; Neck pain Social History Tobacco Use Types [...] on file Legal Sex Female 10:10 AM SMOKE CONTROL SUPERVISOR Gender Identity Not on file Sexual Orientation Not on file documented as of this encounter Last Filed Vital Signs Vital Sign Reading Time Taken Comments Blood Pressure 132/70 02/28/2021 9:12 AM SMOKE CONTROL SUPERVISOR Pulse 94 02/28/2021 9:12 AM SMOKE CONTROL SUPERVISOR Temperature 36.3 ??C (97.3 ??F) 02/28/2021 9:12 AM CS T Respiratory Rate - - Oxygen Saturation 93% 02/28/2021 9:12 AM SMOKE CONTROL SUPERVISOR Inhaled Oxygen Concentration - - Weight 63.8 kg (140 lb 9.6 oz) 02/28/2021 9:12 A M SMOKE CONTROL SUPERVISOR Height - - Body Mass Index 24.91 09/27/2020 9:39 AM CDT documented in this encounter Ordered Prescriptions Prescription Sig Dispense Quantity Refills Last Filled Start Date End Date folic acid (FOLVITE) 1 mg tabletIndications: Folate Deficiency Take 1 tablet (1 mg total) by mouth daily after lunch 90 tablet 3 02/28/2021 3 methotrexate 2.5 mg tabletIndications: Rheumatoid Arthritis Take 5 tablets (12.5 mg total) by mouth every 7 days Every Sunday 60 tablet 1 02/28/2021 2 documented in this encounter Progress Notes * Martina Elizabeth PA - 02/28/2021 9:15 AM CST Images from the original note were not included. Subjective/Objective Patient ID: Loida Guillory is a 70 y.o. female. Chief Complaint RA; establish care HPI Patient is a pleasant 70-year-old female presenting with a prior diagnosis of RA (+RF, CCP) since [address] Silveira. Initially she was c/o difficulty gripping and pain in her hands however was put on MTX 10mg with good response. MTX was increased to 12.5mg weekly and she has remained stable at this dose since 2014. 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 Powers. Was having some mild renal insufficiency per patient report so was not increasing MTX but they did try and add HCQ 300mg daily; however, patient was worried about side effects so medication was not started. C/o some pain in her right 4th PIP today as well as neck pain. Neck pain is worse with activity andimproves with rest. Will have to slowly hang her head to help alleviate pain while grocery shopping. Had XR of neck recently by rheum Dr. Powers at [facility] that showed arthritis and scoliosis per patient report. Given Rx NSAID and patient noted she could not take this with her other medications and was told to avoid ibuprofen. Patient did not start NSAID. Does take tylenol 2 tabs prnwith some relief. Will usually only need about once per week. Patient defers PT. Denies rashes, photosensitivity, sicca sx, raynauds, oral ulcers, eye pain or redness, cough or dyspnea, pleuritic pains. Medical hx: HTN, COPD, GERD, vulvar cancer s/p resection Denies other heart, lung, liver, thyroid, and/or kidney issues. Denies hx of gout, blood clots, transfusions, or hepatitis. Family hx: denies FH for autoimmune diseases. Social hx:Former smoker (quit 2014); no alcohol; occupation: retired Bold X is a current medication. Medication Taking/taken D/C or avoidance reason Hydroxychloroquine Pt worried about s/e Methotrexate -started 2014 X Leflunomide Azathioprine Sulfasalazine CellCept Humira Enbrel Simponi Cimzia Simponi aria Remicade Cosentyx Taltz Orencia Stelara Tremfya Xeljanz Rinvoq Actemra Kevzara Olumiant Kineret Benlysta Rituxan Otezla Tylenol X NSAIDs Prednisone Review of Systems Constitutional:Positive for fatigue. Negative for fever. HENT: Negative for mouth sores. Eyes: Negative for redness. Respiratory: Negative for shortness of breath. Cardiovascular: Negative for chest pain. Gastrointestinal: Negative for blood in stool and diarrhea. Musculoskeletal: Positive for arthralgias. Skin: Negative for rash. Physical Exam Constitutional: appears well-developed and well-nourished. HENT: Head: Normocephalic. Right Ear: External ear normal. Left Ear: External ear normal. Eyes: Conjunctivae and EOM are normal. Pupils are equal, round, and reactive to light. Right eye exhibits no discharge. Left eye exhibits no discharge. No scleral icterus. Neck: Normal range of motion. Cardiovascular: Normal rate, regular rhythm, normal heart sounds and intact distal pulses. Exam reveals no gallop and no friction rub. No murmur heard. Pulmonary/Chest: Effort normal. No respiratory distress. no wheezes. no rales. Musculoskeletal: [place]. H/B nodes bilaterally. Neurological: alert. Skin: Skin is warm and dry. No rash noted. No erythema. No pallor. Psychiatric: normal mood and affect. behavior is normal. Patient Global: 20 mm Provider Global: 20 mm CDAI:6 Assessment/Plan Diagnoses and all orders for this visit: 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) (Primary) Assessment & Plan: 70-year-old female with PMHx of HTN, COPD, GERD, and vulvar cancer s/p resection here toestablish care for previous diagnosis of seropositive rheumatoid [...] rate; Future - CRP (acute phase); Future - Hepatitis panel, acute; Future Fatigue, unspecified type - Hepatitis panel, acute; Future retirement current use 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 drug - Comprehensive metabolic panel; Future - CBC with auto differential; Future - Erythrocyte sedimentation rate; Future - CRP (acute phase); Future - Hepatitis panel, acute; Future Neck pain Assessment & Plan: Pain worse with activity and improved with rest. Denies radiating pain. Previous XR showed arthritis and scoliosis per patient report. Patient defers PT and worried about NSAIDs with her current medication regimen. Taking tylenol otc prn with some relief. Discussed conservative tx with PT vs HEP,tylenol, heat, massage, and rest. Will request recent imaging of the cervical spine for further review. Other orders - methotrexate 2.5 mg tablet; Take 5 tablets (12.5 mg total) by mouth every 7 days Every Sunday - folic acid (FOLVITE) 1 mg tablet; Take 1 tablet (1 mg total) by mouth daily after lunch Martina Elizabeth PA-C Cosigned by Jeffrey Koch MD at 02/28/2021 12:40 PM SMOKE CONTROL SUPERVISOR E CONTROL SUPERVISOR E CONTROL SUPERVISOR documented in this encounter Miscellaneous Notes * Assessment & Plan Note - Martina Elizabeth PA - 02/28/2021 9:54 AM SMOKE CONTROL SUPERVISOR Associated Problem(s): Neck pain Pain worse with activity and improved with rest. Denies radiating pain. Previous XR showed arthritis and scoliosis per patient report. Patient defers PT and worried about NSAIDs with her current medication regimen. Taking tylenol otc prn with some relief. Discussed conservative tx with PT vs HEP,tylenol, heat, massage, and rest. Will request recent imaging of the cervical spine for further review. E CONTROL SUPERVISOR E CONTROL SUPERVISOR * Assessment & Plan Note - Martina Elizabeth PA - 02/28/2021 9:48 AM SMOKE CONTROL SUPERVISOR Associated Problem(s): 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) 70-year-old female with PMHx of HTN, COPD, GERD, and vulvar cancer s/p resection here toestablish care for previous diagnosis of seropositive rheumatoid [...] Sooner if needed. Seen with Dr. Koch. E CONTROL SUPERVISOR E CONTROL SUPERVISOR documented in this encounter Plan of Treatment Not on file documented as of this encounter Procedures Procedure Name Priority Date/Time Associated Diagnosis Comments CBC WITH AUTO DIFFERENTIAL Routine 02/28/2021 10:09 AM SMOKE CONTROL SUPERVISOR 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) retirement current use 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 drug HEPATITIS PANEL, ACUTE Routine 10:09 AM SMOKE CONTROL SUPERVISOR 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) Fatigue, unspecified type 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 ERYTHROCYTE SEDIMENTATION RATE Routine 02/28/2021 10:09 AM SMOKE CONTROL SUPERVISOR 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) retirement current use 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 drug CRP (ACUTE PHASE) Routine 02/28/2021 10: 09 AM SMOKE CONTROL SUPERVISOR 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) 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 COMPREHENSIVE METABOLIC PANEL Routine 02/28/2021 10:09 AM SMOKE CONTROL SUPERVISOR 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) 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 For additional information please refer to http://education.[facility]/faq/YHH21e1 (This link is being provided for informational/ educational purposes only.) Blood specimen (specimen) 02/28/2021 10:09 AM SMOKE CONTROL SUPERVISOR 02/28/2021 10:15 AM SMOKE CONTROL SUPERVISOR Martina JONES LAB MICROBIOLOGY - NERAL ORDERABLES Final Result Performing Organization Address [facility] de Phone Number QUEST [facility] [address] [place] [address] * CRP (acute phase) (02/28/2021 10:09 AM SMOKE CONTROL SUPERVISOR) Pathologist [facility] C-RP 3.8 <8.0 mg/L [facility] Blood specimen (specimen) 02/28/2021 10:09 AM SMOKE CONTROL SUPERVISOR 02/28/2021 10:15 AM SMOKE CONTROL SUPERVISOR Martina JONES LAB BLOOD ORDERABLES Final Result Performing Organization Address [facility] Co de Phone Number QUEST [facility] [address] [place] [address] * (ABNORMAL) Erythrocyte sedimentation rate (02/28/2021 10:09 AM SMOKE CONTROL SUPERVISOR) Erythrocyte sedimentation rate 37(H) < OR = 30 mm/h [facility] Blood specimen (specimen) 02/28/2021 10:09 AM SMOKE CONTROL SUPERVISOR 02/28/2021 10:15 AM SMOKE CONTROL SUPERVISOR Martina JONES LAB BLOOD ORDERABLES Final Result [facility] [address] [place] [address] * (ABNORMAL) CBC with auto differential (02/28/2021 10:09 AM SMOKE CONTROL SUPERVISOR) WBC 11.4(H) 3.8 - 10.8 Thousand/u L [facility] RBC, POC 3.99 3.80 - 5.10 Million/uL [facility] Hgb 13.4 11.7 - 15.5 g/dL [facility] Hct 39.9 35.0 - 45.0 % [facility] MCV 100.0 80.0 - 100.0 fL [facility] MCH 33.6(H) 27.0 - 33.0 pg [facility] MCHC 33.6 32.0 - 36.0 g/dL [facility] Rdw 13.2 11.0 - 15.0 % [facility] Platelets 326 140 - 400 Thousand/u L [facility] MPV 10.4 7.5 - 12.5 fL [facility] Neutrophils, abs 8,573(H) 1,500 - 7,800 cells/uL [facility] Lymphocytes, abs 1,870 850 - 3,900 cells/uL [facility] Monocyte abs 798 200 - 950 cells/uL [facility] Eosinophils, abs 68 15 - 500 cells/uL [facility] Basophils, abs 91 0 - 200 cells/uL [facility] Neutrophils 75.2 % [facility] Lymphocyte pct 16.4 % [facility] Monocytes 7.0 % [facility] Eosinophils 0.6 % [facility] Basophils 0.8 % [facility] Blood specimen (specimen) 02/28/2021 10:09 AM SMOKE CONTROL SUPERVISOR 02/28/2021 10:15 AM SMOKE CONTROL SUPERVISOR Martina JONES LAB BLOOD ORDERABLES Final Result [facility] [address] [place] [address] * (ABNORMAL) Comprehensive metabolic panel (02/28/2021 10:09 AM SMOKE CONTROL SUPERVISOR) Glucose 114(H) 65 - 99 mg/dL [facility] Comment: ? Fasting reference interval For someone without known diabetes, a glucose value between 100 and 125 mg/dL is consistent with prediabetes and should be confirmed with a follow-up test. BUN 20 7 - 25 mg/dL [facility] Creatinine 0.98(H) 0.60 - 0.93 mg/dL [facility] Comment: For patients >49 years of age, the reference limit for Creatinine is approximately 13% higher for people identified as -Angolan. eGFR NON-AFR. BELGIAN 58(L) > OR = 60 mL/min/1. 73m2 [facility] EGFR 67 > OR = 60 mL/min/1. 73m2 [facility] BUN/creat ratio 20 6 - 22 (calc) [facility] Sodium 141 135 - 146 mmol/L [facility] Potassium, pl 4.1 3.5 - 5.3 mmol/L [facility] Chloride 105 98 - 110 mmol/L [facility] CO2 26 20 - 32 mmol/L [facility] Calcium 9.9 8.6 - 10.4 mg/dL [facility] Protein, sr 6.9 6.1 - 8.1 g/dL [facility] Albumin 4.1 3.6 - 5.1 g/dL [facility] GLOBULIN 2.8 1.9 - 3.7 g/dL (calc) [facility] Alb/glob ratio 1.5 1.0 - 2.5 (calc) [facility] Bilirubin, total 0.4 0.2 - 1.2 mg/dL [facility] Alk phos 70 37 - 153 U/L [facility] AST 18 10 - 35 U/L [facility] ALT (SGPT) 14 6 - 29 U/L [facility] Blood specimen (specimen) 02/28/2021 10:09 AM SMOKE CONTROL SUPERVISOR 02/28/2021 10:15 AM SMOKE CONTROL SUPERVISOR Martina JONES LAB BLOOD ORDERABLES Final Result [facility] [address] [place] [address] documented in this encounter Visit Diagnoses Diagnosis 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)- Primary Fatigue, unspecified type retirement current use 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 drug Neck pain Cervicalgia documented in this encounter Discontinued Medications Medication Sig Discontinue Reason Start Date End Da te oxyCODONE (ROXICODONE) 5 mg immediate release tabletIndications:Pain Take 1 tablet (5 mg total) by mouth every 4 (four) hours as needed for pain (moderate to severe pain) for up to 10 doses 04/08/2019 02/28/2021 folic acid (FOLVITE) 1 mg tabletIndications:Folat e Deficiency Take 1 mg by mouth daily after lunch Reorder 02/28/2021 methotrexate 2.5 mg tabletIndications:Rheum atoid Arthritis Take 12.5 mg by mouth every 7 days Every Sunday Reorder 02/28/2021 documented as of this encounter Historical Medications * This list may reflect changes made after this encounter. famotidine (PEPCID) 20 mg tabletIndications :gastroesophageal reflux disease Take 1 tablet (20 mg total) by mouth every morning 02/26/2021 added in this encounter Care Teams Field Crew Chief Relationship Specialty Start Date End Date Terry Bender DO PCP - General Internal Medicine 01/03/18 05/14/22 Wilmer Taylor MD [address] [facility] [address] [place] [address] Referring Physician Obstetrics and Gynecology 05/09/12 Jeffrey Koch MD [address] [place] [address] Consulting Physician Rheumatology 02/03/21 documented as of this encounter
--- OUTSIDE RECORDS SUMMARY | 2024-05-03 02:52 | XMS_ITS | Encounter Summary ---
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 ??There will be no report generated by a [facility] Radiologist. Narrative [facility] - 08/31/2021 9:02 PM CDT EXAMINATION: ??Images For Reference Purposes Only Ranjan Cazares MD IMG XR PROCEDURES Lupe l Result [facility] documented in this encounter Visit Diagnoses Not on filedocumented in this encounter Care Teams Hot Pond Operator Relationship Specialty Start Date End Date Terry Bender DO PCP - General Internal Medicine 01/03/18 05/14/22 Wilmer Taylor MD [address] [facility] [address] [place] [address] Referring Physician Obstetrics and Gynecology 05/09/12 Jeffrey Koch MD [address] [place] [address] Consulting Physician Rheumatology 02/03/21 documented as of this encounter
--- OUTSIDE RECORDS SUMMARY | 2024-05-03 02:52 | XMS_ITS | Encounter Summary ---
Author Organization [facility] Address [address] [place] [address] Phone Care Team Providers Care Portfolio Analyst Name Role Phone Terry Bender Primary Care Provider [phone] Wilmer Taylor MD Unavailable [phone] Reason for Visit * Reason Comments Follow-up * Consultation (Routine) - Closed Specialty Diagnoses / Procedures Referred By Contmary t Referred To Contact Gynecologic Oncology Diagnoses HAWA III (vulvar intraepithelial neoplasia III) Sinan Schmidt MD [address] [place] [address] Phone: tel: fax: Sinan Schmidt MD [address] [place] [address] Phone: tel: fax: Referral ID Status Reason Start Date Expiration Date V isits Requested Visits Authorized [id number] Closed Specialty Services Required 03/29/2020 11/26/2020 2 2 Encounter Details Date Type Department Care Team (Latest Contact Info) Description 09/27/2020 9:45 AM CDT Office Visit [facility] Gynecology/Oncology [address] [facility] [address] [place] [address] Sinan Schmidt MD [address] [place] [address] 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); Anal dysplasia Social History Tobacco Use Types Packs/Day Years Used Date Smoking Tobacco: Heavy Smoker Cigarettes 0.3 56 Started: 1970 Smokeless Tobacco: Never Alcohol Use Standard Drinks/Week [...] on file 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 Gender Identity Not on file Sexual Orientation Not on file documented as of this encounter Last Filed Vital Signs Vital Sign Reading Time Taken Comments Blood Pressure 108/82 09/27/2020 9:39 AM CDT Pulse 68 09/27/2020 9:39 AM CDT Temperature 36.6 ??C (97.8 ??F) 09/27/2020 9:39 AM CD T Respiratory Rate 16 09/27/2020 9:39 AM CDT Oxygen Saturation 95% 09/27/2020 9:39 AM CDT Inhaled Oxygen Concentration - - Weight 64.1 kg (141 lb 6.4 oz) 09/27/2020 9:39 A M CDT Height 160 cm (5' 3 ) 09/27/2020 9:39 AM CDT Body Mass Index 25.05 09/27/2020 9:39 AM CDT documented in this encounter Progress Notes * Sinan Schmidt MD - 09/27/2020 9:45 AM CDT Gynecologic Oncology Return Visit Loida Guillory 1950 70 y.o. 09/27/2020 Visit Diagnosis 1. 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 No trouble with bowel movements. Has had her covid vaccines and feels comfortable around family, but still will be using her mask in stores for some time, she thinks. Cancer Staging No matching staging information was [...] ??? HAWA III (vulvar intraepithelial neoplasia III) Past Medical History: Diagnosis Date ??? Arthritis ??? Hypertension ??? Personal history of other diseases of the circulatory system History of hypertension - (Added by TW Conv) Past Surgical History: Procedure Laterality Date ??? OVARY SURGERY Ovarian Surgery - (Added by TW Conv) ??? NE BREAST SURGERY PROCEDURE UNLISTED Breast Surgery - (Added by TW Conv) ??? RHINOPLASTY Rhinoplasty - (Added by TW Conv) Allergies Allergen Reactions ??? Omeprazole Rash Current Outpatient Medications: ??? acetaminophen (TYLENOL) 500 mg tablet ??? amLODIPine (NORVASC) 10 mg tablet ??? ascorbic acid (ascorbic acid with lyssa hips) 500 mg tablet,chewable ??? aspirin (ASPIR-81) 81 mg tablet ??? budesonide-formoterol (SYMBICORT) 160-4.5 mcg/actuation inhaler ??? calcium carbonate-vitamin D3 1,500 mg (600mg elemental) -800 unit per tablet ??? folic acid (FOLVITE) 1 mg tablet ??? losartan (COZAAR) 25 mg tablet ??? methotrexate 2.5 mg tablet ??? nicotine (NICODERM CQ) 21 mg ??? omega 4-aug-gxg-fish oil (FISH OIL) 100-160-1,000 mg capsule ??? oxyCODONE (ROXICODONE) 5 mg immediate release tablet Social History Tobacco Use ??? Smoking status: Heavy Tobacco Smoker Packs/day: 0.25 Years: 50.00 Pack years: 12.50 Start date: 1970 ??? Smokeless tobacco: Never Used Substance Use Topics ??? Alcohol use: Never Family History Problem Relation Age of Onset ??? Breast cancer Other Family history of malignant neoplasm of breast - Relation: Aunt (Added by TW Conv) ??? Colon cancer Other Family history of colon cancer - Relation: Uncle (Added by TW Conv) No LMP recorded. Patient is postmenopausal. Objective Vitals Vitals BP 108/82 Pulse 68 Temp 36.6 ??C (97.8 ??F) Resp 16 Ht 160 cm (5' 3 ) Wt 64.1 kg (141 lb 6.4 oz) SpO2 95% BMI 25.05 kg/m?? Physical exam: General Appearance: well, in [...] non-tender. Vagina: without lesions or abnormal discharge. 5% acetic acid on a gauze applied to the vulva and perianal area. No vulvar lesions. Perianal area notable for stable, unchanged acetowhite areas, < 0.5 cm, non invasive. Touched with silver nitrate. Bimanual: no adnexal masses, tenderness, or nodularity. Rectovaginal: confirms above; rectovaginal septum & parametria clear, posterior cul de sac smooth Skin: without rashes. Lower extremities: without edema or calf tenderness. Performance Score: 0 Lab/Radiology/Diagnostic Review: n/a Assessment/Plan 1. VIN3/AIN. -Stable exam, no need for biopsy. Discussed perianal small acetowhite changes; goal of surveillanceis to prevent invasion and there is no sign of this whatsoever, very stable appearance. -RTC 6 months. 2. Congratulated on continuing smoking cessation efforts--has not smoked for several years. Continues nicotine patch. She understands the relationship between nicotine and HPV. 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
--- OUTSIDE RECORDS SUMMARY | 2024-05-03 02:52 | XMS_ITS | Encounter Summary ---
Author Organization [facility] Address [address] [facility] [address] [place] [address] Phone Care Team Providers Care 6Th Grade Teacher Name Role Phone Terry Bender Primary Care Provider [phone] Wilmer Taylor MD Unavailable [phone] Jeffrey Koch MD Unavailable [phone] Encounter Details Date Type Department Care Team (Late st Contact Info) Description 08/31/2021 Telephone [facility] Surgery [address] [place] [address] Telma Chong RMA Social History [...] on file 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 They are aware of date, time and location. documented in this encounter Plan of Treatment Not on file documented as of this encounter Visit Diagnoses Not on filedocumented in this encounter Care Teams 6Th Grade Teacher Relationship Specialty Start Date End Date Terry Bender DO PCP - General Internal Medicine 01/03/18 05/14/22 Wilmer Taylor MD [address] [address] Referring Physician Obstetrics and Gynecology 05/09/12 Jeffrey Koch MD [address] [place] [address] Consulting Physician Rheumatology 02/03/21 documented as of this encounter
--- OUTSIDE RECORDS SUMMARY | 2024-05-03 02:52 | XMS_ITS | Encounter Summary ---
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] Procedures AR SURG DIAGNOSTIC EXAM, ANORECTAL Exam Under Anestheisa, Anoscopy, Biopsoy of Perianal Lesions Referral ID Status Reason Start Date Expiration Date Visits Re quested Visits Authorized [id number] 1 1 Encounter Details Date Type Department Care Team (Latest Contact Info) Description 07/06/2021 11:10 AM CDT - 07/06/2021 2:01 PM CDT Hospital Encounter [facility] Operating Room [address] [place] [address] Luz Lewis MD [address] [facility] [address] [place] [address] Vulvar intraepithelial neoplasia III Discharge Disposition: Discharge to home or [...] on file 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 ?? 2017 What They Like Information is for End User's use only and may not be sold, redistributed or otherwise used for commercial purposes. All illustrations and images included in CareNotes?? are the copyrighted property of [employer] or [email or web address]. The above information is an program aide group work only. It is not intended as medical [...] total) by mouth every morning 02/26/2021 omega 0-rvx-jai-fish oil 100-160-1,000 mg capsuleIndicatio ns:hypertriglyce ridemia Take [...] 1994 Cyst x2 removed from overies ??? 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 She is also due for a colonoscopy and this will be arranged in the near future. The surgery will be scheduled in the near future. Luz Lewis MD [facility] Colorectal Surgery 07/04/21 12:25 PM This note was transcribed using [employer] Speech Recognition software. As a result, there [...] not require pre procedural COVID testing per [facility] policy. documented in this encounter Plan of [...] a t end of case Narrative PATHOLOGY [facility] - 07/08/2021 8:58 AM CDT [address] ??[address] Tele: ?? Katherine Rosales MD - Enrollment Management Director Note to Patients: This report may contain [...] PATHOLOGY REPORT Patient Name: ??DARRION GUILLORYAnkush Address: ??[facility] [place], [place] [address] Gender: ??F : ??1950 (Age: 71) Service: ??Surgery Location: ??[facility] [place], ?? Hospital #: ??[id number] Patient Type: ??[facility] SAME DAY SURGERY Accession #: ? [id number] Taken: ? 07/06/2021 Received ? 07/06/2021 Reported: ? 07/08/2021 Physician(s): ? Abbey Velez D.O. DIAGNOSIS: Perianal lesions, biopsy: ? - High-grade squamous intraepithelial lesions (moderate-severe dysplasia) - No invasive lesion demonstrated [facility]07/08/2021 08:58 Examining Pathologist: Gregory Escobar M.D. Report Reviewed and Electronically Signed By ??Gregory Escobar M.D. SPECIMEN TYPE: A: PERIANAL BIOPSY CLINICAL IMPRESSION AND HISTORY: HAWA-III. GROSS DESCRIPTION: Received in formalin and labeled Darrionkarol Guillory and perianal biopsy are three pink-pickard, irregular tissue fragments measuring 1.1 x 0.3 x 0.2 cm in aggregate. ??Specimen is placed in filter paper and entirely submitted in cassette A1. [facility]/07/06/2021 13:[address] [facility] MICROSCOPIC DESCRIPTION: Sections from the perianal biopsy [...] the dysplastic epithelium. Clerical Data Follows A; 21979, 95055 REPORT IMAGES AND/OR SCANNED DOCUMENTS ONLY VIEWABLE IN PDF FORMAT The immunohistochemical test(s) cited in this report, if any, was developed and its performance characteristics determined by [facility] Pathology Department. ??It has not been cleared or approved by the U.S. Food and Drug Administration. ??The FDA has determined that such clearance or approval is not necessary. ??This test is used for clinical purposes. ??It should not be regarded as investigational or for research. ??[facility] is certified under the Clinical [...] MD LAB PATHOLOGY ORDERABLES Final Result PATHOLOGY [facility] Laboratory Receiving [address] [place] [address] documented in this encounter Visit Diagnoses Diagnosis [...] area. , Indications: Pre-Emptive AnalgesiaIndications:Pre-Emptive Analgesia Given 07/06/2021 12:01 PM CDT 1,000 mg albuterol 2.5 mg /3 mL (0.083 %) nebulizer solution 2.5 mg 2.5 mg, nebulization, As needed, wheezing, Starting on Sun07/06/21 at 1238, For 2 doses, Phase I, Notify Anesthesiologist. , Indications: Bronchospastic Pulmonary DiseaseIndications:Bronchospastic Pulmonary Disease dextrose (D10W) 10% bolus 250 mL 250 mL, intravenous, at 1,000 mL/hr, Administer over 15 Minutes, Once as needed, blood glucose less than 70 mg/dL, Starting on Sun07/06/21 at 1150, Pre-Op, Indications: HypoglycemiaIndications:Hypoglyce katie diphenhydrAMINE (BENADRYL) injection 12.5 mg 12.5 mg, intravenous, Every 15 min PRN, itching, Starting on Sun07/06/21 at 1238, For 2 doses, Phase I, Max cumulative dose 50 mg., Indications: ItchingIndications:Itching fentaNYL (SUBLIMAZE) preservative free injection 25 mcg [...] NOT hold for NPO status., Indications: Diabetes MellitusIndications:Diabetes Mellitus labetaloL (NORMODYNE,TRANDATE) injection 5 mg 5 mg, intravenous, at 30 mL/hr, Administer over 2 Minutes, Every 10 min PRN, high blood pressure, Starting on Sun07/06/21 at 1238, For 4 doses, Phase I, Max cumulative dose 20 mg. Dose if systolic blood pressure greater than 180 AND HR greater than 70. meperidine (DEMEROL) preservative free injection 12.5 mg 12.5 mg, intravenous, Administer over 5 Minutes, Every 10 min PRN, shivering, Starting on Sun07/06/21 at 1238, For 2 doses, Phase I, Max cumulative dose 25 mg., Indications: ShiveringIndications:Shivering naloxone (NARCAN) 0.4 mg/mL injection 0.04-0.4 mg [...] IV, administer over 30 seconds., Indications: Opioid ToxicityIndications:Opioid Toxicity ondansetron (ZOFRAN) injection 4 mg 4 mg, intravenous, Administer over 2 Minutes, Once as needed, nausea, vomiting, Starting on Sun07/06/21 at 1238, For 1 dose, Phase I, Proceed to haloperidol if more than 8 mg of ondansetron have been given within the last 6 hours., Indications: Prevention of Post-Operative Nausea and VomitingIndications:Prevention of Post-Operative Nausea and Vomiting oxyCODONE (ROXICODONE) [...] doses, Phase I, Notify Anesthesiologist. , Indications: WheezingIndications:Wheezing sodium chloride 0.9% flush 0.5-20 mL 0.5-20 [...] (0.08 3 %) nebulizer solution 2.5 mg 07/06/2021 bacitracin 500 unit/gram ointment 022 dextrose (D10W) 10% bolus 250 mL 07/07/19 diphenhydrAMINE (BENADRYL) i njection 12.5 mg 07/06/2021 fentaNYL (SUBLIMAZE) preserv ative free injection 25 mcg 07/06/2021 gabapentin (NEURONTIN) capsule 300 mg haloperidol (HALDOL) injection 1 mg 1 07/06 HYDROmorphone (DILAUDID) injection 0.2 mg 1 07/06/2021 HYDROmorphone (DILAUDID) injection 0.4 mg 1 07/06/2021 insulin lispro (HumaLOG, ADM ELOG) 100 unit/mL injection 1-5 Units 1 07/06/2021 labetaloL (NORMODYNE,TRANDAT E) injection 5 mg 1 07/06/2021 lidocaine 1% w/ EPINEPHrine 1:100,000 (20 mL), bupivacaine 0.25% (20 mL), sodium bicarbonate 8.4% (8 mL) solution 1 07/06/2021 meperidine (DEMEROL) preserv ative free injection 12.5 mg 1 07/06/2021 naloxone (NARCAN) 0.4 mg/mL injection 0.04-0.4 mg 1 07/06/2021 ondansetron (ZOFRAN) injection 4 mg 1 07/06 oxyCODONE (ROXICODONE) tablet 5 mg 1 2021 racepinephrine (ASTHMANEFRIN ) 2.25 % nebulizer solution 0.5 mL 1 07/06/2021 sodium chloride 0.9% flush 0.5-20 mL 1 06/21 sodium chloride 0.9% irrigation 1 Diet Count Last Ordered Date First Orde red Date ADULT DISCHARGE DIET 1 07/06/2021 Nursing Count Last Ordered Date First Orde red Date ACTIVITY 1 07/06/2021 DISCHARGE INSTRUCTIONS 2 07/06/2021 NURSING COMMUNICATION 5 07/06/2021 PATIENT MAY SHOWER 1 07/06/2021 WOUND CARE 1 07/06/2021 Discharge Count Last Ordered Date First Orde red Date DISCHARGE PATIENT 1 07/06/2021 documented in this encounter Care Teams Reference Data Expert Relationship Specialty Start Date End Date Terry Bender DO PCP - General Internal Medicine 01/03/18 05/14/22 Wilmer Taylor MD [address] [facility] [address] [address] Referring Physician Obstetrics and Gynecology 05/09/12 Jeffrey Koch MD [address] [place] [address] Consulting Physician Rheumatology 02/03/21 documented as of this encounter
--- OUTSIDE RECORDS SUMMARY | 2024-05-03 02:52 | XMS_ITS | Encounter Summary ---
Author Organization [facility] Address [address] [place] [address] Phone Care Team Providers Care Offset Plate Maker Name Role Phone Terry Bender Primary Care Provider Wilmer Taylor MD Unavailable [phone] Reason for Visit * Consultation (Routine) - Closed Specialty Diagnoses / Procedures Referred By Micah barajas Referred To Contact Gynecologic Oncology Diagnoses HAWA III (vulvar intraepithelial neoplasia III) Sinan Schmidt MD [address] [place] [address] Phone: tel: fax: Sinan Schmidt MD [address] [place] [address] Phone: tel: fax: Referral ID Status Reason Start Date Expiration Date V isits Requested Visits Authorized [id number] Closed Specialty Services Required 03/29/2020 11/26/2020 2 2 Encounter Details Date Type Department Care Team (Latest Contact Info) Description 03/29/2020 10:00 AM GROUND CREWMAN Office Visit [facility] Gynecology/Oncology [address] [facility] [address] [place] [address] Sinan Schmidt MD [address] [place] [address] HAWA III (vulvar intraepithelial neoplasia III) Social [...] on file Legal Sex Female 10:10 AM GROUND CREWMAN Gender Identity Not on file Sexual Orientation Not on file documented as of this encounter Last Filed Vital Signs Vital Sign Reading Time Taken Comments Blood Pressure 138/70 03/29/2020 9:53 AM GROUND CREWMAN Pulse 90 03/29/2020 9:53 AM GROUND CREWMAN Temperature 36.4 ??C (97.5 ??F) 03/29/2020 9:53 AM CS T Respiratory Rate 17 03/29/2020 9:53 AM GROUND CREWMAN Oxygen Saturation 98% 03/29/2020 9:53 AM GROUND CREWMAN Inhaled Oxygen Concentration - - Weight 64.2 kg (141 lb 8 oz) 03/29/2020 9:53 AM GROUND CREWMAN Height 160 cm (5' 3 ) 03/29/2020 9:53 AM GROUND CREWMAN Body Mass Index 25.07 03/29/2020 9:53 AM GROUND CREWMAN documented in this encounter Progress Notes * Roro Guevara MD - 03/29/2020 10:00 AM CST GYNONC Return Visit Loida Guillory 1950 69 y.o. 03/29/2020 Visit Diagnosis 1. HAWA III (vulvar intraepithelial neoplasia III) Subjective HPI Loida Guillory returns today for follow up for recurrent HAWA/AIN. She reports feeling well since her last visit. Denies vaginal or anal itching. Denies vaginal bleeding or abnormal discharge. No new concerns or complaints. She reports continued cessation from smoking. She is using a 21mcg nicotine patch which she reportshelps her significantly. Cancer Staging No matching staging information was [...] results found for: CA125 Review of Systems Systemic: Pain: None, Fatigue: None Head: Headaches: None Eyes: Change in vision: None Otolaryngeal: Change in hearing: None Cardiovascular: Chest pain: None, Palpitation: None Pulmonary: Shortness of breath: None, Cough: None Gastrointestinal: Nausea: None, Vomiting: None, Abdominal bloating: None, Abdominal pain: None, Blood in bowel movements: None, Diarrhea: None, Constipation: None Genitourinary: Blood in urine: None, Lost control of urine: None, Pain with urination: None, Vaginal bleeding: None Endocrine: Hot flashes: None, Hair loss: None Hematologic: Easy bruising/bleeding: None Neurological: Tingling of hands or feet: None, Numbness: None Psychological: Depression: None, Mood changes: None Skin: Skin rash: None Patient Active Problem List Diagnosis ??? Anal dysplasia ??? Hypertension ??? Encounter for postoperative care ??? HAWA III (vulvar intraepithelial neoplasia III) Past Medical History: Diagnosis Date ??? Arthritis ??? Hypertension ??? Personal history of other diseases of the circulatory system History of hypertension - (Added by ANDREY Dubon) Past Surgical History: Procedure Laterality Date ??? OVARY SURGERY Ovarian Surgery - (Added by TW Conv) ??? NM BREAST SURGERY PROCEDURE UNLISTED Breast Surgery - [...] nicotine (NICODERM CQ) 21 mg ??? omega 0-bgr-eya-fish oil (FISH OIL) 100-160-1,000 mg capsule ??? oxyCODONE (ROXICODONE) 5 mg immediate release tablet Social History Tobacco Use ??? Smoking status: Heavy Tobacco Smoker Packs/day: 0.25 Years: 50.00 Pack years: 12.50 Start date: 1968 ??? Smokeless tobacco: Never Used Substance Use Topics ??? Alcohol use: Never Frequency: Never Family History Problem Relation Age of Onset ??? Breast cancer Other Family history of malignant neoplasm of breast - Relation: Aunt (Added by TW Conv) ??? Colon cancer Other Family history of colon cancer - Relation: Uncle (Added by TW Conv) No LMP recorded. Patient is postmenopausal. Screening History Ever used Hormone Replacement Therapy?: Yes Ever had a mammogram?: Yes Ever had a colonoscopy?: Yes Ever had a bone-density test?: No Objective Vitals Vitals BP 138/70 Pulse 90 Temp 36.4 ??C (97.5 ??F) (Temporal) Resp 17 Ht 160 cm (5' 3 ) Wt 64.2 kg (141 lb 8 oz) SpO2 98% BMI 25.07 kg/m?? Physical exam: General Appearance: well, in [...] calf tenderness. Performance Score: PS = 0 Lab/Radiology/Diagnostic Review: 04/08/19 A. Vulva and perineum, left, wide local excision: ? - High-grade squamous intraepithelial lesion (HSIL, HAWA-3, severe dysplasia) - Resection margin with no evidence of intraepithelial lesion or dysplasia B. Vulva, left alen-clitoral lesion, biopsy ? - High-grade squamous intraepithelial lesion (HSIL, HAWA-3, severe dysplasia) C. Anus, left perianal lesion, biopsy ? - High-grade squamous intraepithelial lesion (HSIL, AIN-3, severe dysplasia) Assessment/Plan 1. HAWA-3 - No lesions to suggest recurrence at this time. Mild acetowhite changes over perrectal area, but no itching and overall stable in appearance. - Continue q6mo follow-up 2. History of tobacco use - Reports complete cessation for over 6mo - Continue 21mcg nicotine patch; with cessation effortstine patch which has Roro Guevara MD Obstetrics & Gynecology, PGY-2 Sinan Schmidt MD CC: Patient Care Team: Terry Bender DO as PCP - General (Internal Medicine) Wilmer Taylor MD as Referring Physician (Obstetrics and Gynecology) and PCP: Terry Bender DO Enclosures:Note Cosigned by Sinan Schmidt MD at 03/29/2020 10:18 PM GROUND CREWMAN ND CREWMAN Associated attestation - Sinan Schmidt MD - 03/29/2020 10:18 PM GROUND CREWMAN I have seen and examined the patient. I agree with the findings and plan of care as documented in the resident/fellow's note. documented in this encounter Miscellaneous Notes * Treatment Plan - Roro Guevara MD - 03/29/2020 10:00 AM CST RTC in 6 months Cosigned by Sinan Schmidt MD at 03/29/2020 7:33 PM GROUND CREWMAN ND CREWMAN ND CREWMAN documented in this encounter Plan of Treatment Not on file documented as of this encounter Visit Diagnoses Diagnosis 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, vulva documented in this encounter Orders Outpatient Referral Count Last Ordered Date Fir st Ordered Date AMB REFERRAL TO GYNECOLOGIC ONCOLOGY 1 10/2019 documented in this encounter Care Teams Offset Plate Maker Relationship Specialty Start Date End Date Terry Bender DO PCP - General Internal Medicine 01/03/18 05/14/22 Wilmer Taylor MD [address] [facility] [address] [place] [address] Referring Physician Obstetrics and Gynecology 05/09/12 documented as of this encounter
--- OUTSIDE RECORDS SUMMARY | 2024-05-03 02:52 | XMS_ITS | Encounter Summary ---
Author Organization [facility] Address [address] [facility] [address] [place] [address] Phone Care Team Providers Care Dining Car Steward Name Role Phone Terry Bedner DO Primary Care Provider [phone] Wilmer Taylor MD Unavailable [phone] Jeffrey Koch MD Unavailable [phone] Luz Lewis MD Unavailable [phone] Sin Mcclure MD Primary Care Provider [phone] Jay Argueta MD Primary Care Provider [phone] Raleigh Jay MD PhD Unavailable [phone] Ranjan Cazares MD Unavailable [phone] Gabriele Adams NP Primary Care Provider [phone] Terry Bender DO Primary Care Provider [phone] Encounter Details Date Type Department Care Team (Late st Contact Info) Description 08/30/2021 Telephone [facility] Oncology [address] 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 Gender Identity Not on file Sexual Orientation Not on file documented as of this encounter Plan of Treatment Not on file documented as of this encounter Visit Diagnoses Not on filedocumented in this encounter Care Teams Dining Car Steward Relationship Specialty Start Date End Date Terry Bender DO PCP - General Internal Medicine 01/03/18 05/14/22 Sin Mcclure MD [address] [place] [address] PCP - General Internal Medicine 05/15/22 11/28/22 Jay Argueta MD [address] [place] [address] PCP - General Family Practice 11/29/22 10/07/23 Gabriele Adams NP [address] [facility] [address] [place] [address] PCP - General Nurse Practitioner 10/08/23 12/06/23 Terry Bender DO [address] [place] [address] PCP - General Internal Medicine 12/07/23 Wilmer Taylor MD [address] [place] [address] Referring Physician Obstetrics and Gynecology 05/09/12 Jeffrey Koch MD [address] [place] [address] Consulting Physician Rheumatology 02/03/21 Luz Lewis MD [address] [place] [address] Referring Physician Surgery 12/14/21 Raleigh Jay MD PhD [address] [place] [address] Radiation Oncologist Radiation Oncology 12/12/22 Ranjan Cazares MD [address] [facility] [id number] [place] [address] Surgeon Thoracic Surgery 12/12/22 documented as of this encounter
--- OUTSIDE RECORDS SUMMARY | 2024-05-03 02:52 | XMS_ITS | Encounter Summary ---
Author Organization [facility] Address [address] [place] [address] Care Team Providers Care Payroll Director Name Role Phone Terry Bender DO Primary Care Provider [phone] Wilmer Taylor MD Unavailable [phone] Jeffrey Koch MD Unavailable [phone] Encounter Details Date Type Department Care Team (Latest Contact Info) Description 07/04/2021 12:15 PM CDT Office Visit [facility] [address] [facility] [address] [place] [address] Luz Lewis MD [address] [place] [address] [address] [place] [address] HAWA III (vulvar intraepithelial neoplasia III) (Primary [...] on file Legal Sex Female 10:10 AM PLATFORM MAN Gender Identity Not on file Sexual Orientation Not on file documented as of this encounter Progress Notes * Luz Lewis MD - 07/04/2021 12:15 PM CDT Colorectal Surgery Consultation Consult requested by Sinan Schmidt MD for HAWA/AIN3 Chief Complaint: Loida Guillory is [...] 1994 Cyst x2 removed from overies ??? [place] BREAST SURGERY PROCEDURE UNLISTED Right 1978 Cyst [...] tablet nicotine (NICODERM CQ) 21 mg omega 9-yjd-eif-fish oil 100-160-1,000 mg capsule Allergies Allergen Reactions [...] Negative Pulmonary: Negative Gastrointestinal: Negative Genitourinary: Negative Wire Hanger/lymphatic: Negative Immunologic: Negative Musculoskeletal: Negative Neurologic: Negative [...] in the near future. Luz Lewis MD [facility] Colorectal Surgery 07/04/21 12:25 PM This note was transcribed using [employer] Speech Recognition software. As a result, there [...] vulva documented in this encounter Care Teams Payroll Director Relationship Specialty Start Date End Date Terry Bender DO PCP - General Internal Medicine 01/03/18 05/14/22 Wilmer Taylor MD [address] [address] Referring Physician Obstetrics and Gynecology 05/09/12 Jeffrey Koch MD [address] [place] [address] Consulting Physician Rheumatology 02/03/21 documented as of this encounter
--- OUTSIDE RECORDS SUMMARY | 2024-05-03 02:52 | XMS_ITS | Encounter Summary ---
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 Gender Identity Not on file Sexual Orientation Not on file documented as of this encounter Plan of Treatment Not on file documented as of this encounter Procedures Procedure Name Priority Date/Time Associated Diagnosis Comments SCAN - RADIOLOGY/IMAGING 03/22/2021 2:48 PM WIND PLANT MANAGER documented in this encounter Results * SCAN - RADIOLOGY/IMAGING (03/22/2021 2:48 PM WIND PLANT MANAGER) Anatomical Region Laterality Modality Other us Martina JONES Final Result documented in this encounter Visit Diagnoses Not on filedocumented in this encounter Care Teams Traveling Nurse Relationship Specialty Start Date End Date Terry Bender DO PCP - General Internal Medicine 01/03/18 05/14/22 Wilmer Taylor MD [address] [address] Referring Physician Obstetrics and Gynecology 05/09/12 Jeffrey Koch MD [address] [place] [address] Consulting Physician Rheumatology 02/03/21 documented as of this encounter
--- OUTSIDE RECORDS SUMMARY | 2024-05-03 02:52 | XMS_ITS | Encounter Summary ---
Author Organization [facility] Healthcare Address [address] [place] [address] Care Team Providers Care Dress Designer Name Role Phone Terry Bender DO Primary Care Provider [phone] Wilmer Taylor MD Unavailable [phone] Jeffrey Koch MD Unavailable [phone] Encounter Details Date Type Department Care Team (Latest Contact Info) Description 08/31/2021 9:04 PM CDT - 08/31/2021 11:59 PM CDT Hospital Encounter [facility] [address] [place], [place] [id number] Discharge Disposition: Discharge to home or self [...] on file 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 Gender Identity Not on file Sexual [...] total) by mouth every morning 02/26/2021 omega 2-per-gwq-fish oil 100-160-1,000 mg capsuleIndicatio ns:hypertriglyce ridemia Take [...] 07/06/2021 2 documented as of this encounter Discharge Disposition Disposition Code Departure Means Destination Discharge to home or self care documented in this encounter Plan of Treatment Not on file documented as of this encounter Procedures Procedure Name Priority Date/Time Associated Diagnosis Comments XR TRANSFER OF OUTSIDE FILMS Routine 08/31/2021 9:04 PM CDT Diagnosis unknown documented in this encounter Results * XR Outside Reference (08/31/2021 9:04 PM CDT) Impressions [facility] - 08/31/2021 9:04 PM CDT These images are for Reference purposes only and have not been reviewed by [facility]. ??There will be no report generated by a [facility] Radiologist. Narrative [facility] - 08/31/2021 9:04 PM CDT EXAMINATION: ??Images For Reference Purposes Only Ranjan Cazares MD IMG XR PROCEDURES Lupe l Result [facility] documented in this encounter Visit Diagnoses Not on filedocumented in this encounter Care Teams Dress Designer Relationship Specialty Start Date End Date Terry Bender DO PCP - General Internal Medicine 01/03/18 05/14/22 Wilmer Taylor MD [facility] [facility] [address] [place] [address] Referring Physician Obstetrics and Gynecology 05/09/12 Jeffrey Koch MD [address] [place] [address] Consulting Physician Rheumatology 02/03/21 documented as of this encounter
--- OUTSIDE RECORDS SUMMARY | 2024-05-03 02:52 | XMS_ITS | Encounter Summary ---
Author Organization [facility] Healthcare Address [address] [place] [address] Care Team Providers Care Yard Jacker Name Role Phone Terry Bender DO Primary Care Provider [phone] Wilmer Taylor MD Unavailable [phone] Jeffrey Koch MD Unavailable [phone] Encounter Details Date Type Department Care Team (Latest Contact Info) Description 08/31/2021 2:32 PM CDT - 08/31/2021 9:01 PM CDT Hospital Encounter [facility]) [address] [place] [id number] Diagnosis unknown Discharge Disposition: Discharge to home [...] on file 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 Markedly limited evaluation of the neck without intravenous contrast are both lymphadenopathy and primary mass. Within these limitations, there is a 1.8 cm lymph node that closely abuts the right parotid gland to and has central areas of hypoattenuation that may represent necrosis. 2. 1.5 cm spiculated nodule in the right upper lobe, which has recently been biopsied per chart review. This examination is limited for evaluation of the chest. 3. Severe atherosclerotic calcification involving the right internal carotid artery, for which a duplex evaluation could be performed for further evaluation. The findings, conclusions and recommendations within this report do not replace the initial findings, conclusions ??and recommendations made at the facility where the study was performed based upon the imaging and clinical condition at that time. ??Comparison with the prior report and clinical history is necessary. ??The provided images may or may not represent the [place] source data set and thus may contain changes that may lower the accuracy of this second-opinion interpretation. Dictated by: Rayo Mckeon M.D. The radiology attending physician has personally reviewed this study, and had reviewed and/or edited this written report and agrees with it. Electronically signed by: Mckenna Ferris M.D. Narrative 08/31/2021 3:18 PM CDT EXAMINATION: RADIOLOGY CONSULTATION ON OUTSIDE IMAGING STUDY STUDY INITIALLY PERFORMED: 07/22/2021 at [facility]. TYPE OF STUDY: Multiple CT images of the neck without intravenous contrast are provided at the time of this interpretation. CONTRAST ROUTE: No contrast was administered. The protocol was adequate to address the clinical question. The outside final report was not available at the time of this second opinion interpretation. TYPE OF CONSULTATION: Consult on outside imaging study with images submitted through [facility] DATE OF CONSULTATION: 08/31/2021 2:41 PM HISTORY: Right upper lobe nodule . COMPARISON: None available. FINDINGS: There is a large 1.8 cm lymph node that closely abuts the right parotid gland. This has central areas of hypoattenuation. The muscles of the neck are normal. The visualized airway is widely patent. There is mild anterolisthesis of C3 on C4 and C4 on C5 and multilevel cervical spine degenerative disease, greatest from C5 to C7 with anterior osteophytes. Limited examination of the superior thorax shows a 1.5 cm spiculated nodule in the right upper lobe, which has recently been biopsied and per chart review, and mediastinal lymphadenopathy. There are bilateral lens replacements. There is severe atherosclerotic calcification of the right internal carotid artery. Note is made of a high riding right jugular bulb. Procedure Note Mckenna Bliss MD - 08/31/2021 EXAMINATION: RADIOLOGY CONSULTATION ON OUTSIDE IMAGING STUDY STUDY INITIALLY PERFORMED: 07/22/2021 at [facility]. TYPE OF STUDY: Multiple CT images of the neck without intravenous contrast are provided at the time of this interpretation. CONTRAST ROUTE: No contrast was administered. The protocol was adequate to address the clinical question. The outside final report was not available at the time of this second opinion interpretation. TYPE OF CONSULTATION: Consult on outside imaging study with images submitted through [facility] DATE OF CONSULTATION: 08/31/2021 2:41 PM HISTORY: Right upper lobe nodule . COMPARISON: None available. FINDINGS: There is a large 1.8 cm lymph node that closely abuts the right parotid gland. This has central areas of hypoattenuation. The muscles of the neck are normal. The visualized airway is widely patent. There is mild anterolisthesis of C3 on C4 and C4 on C5 and multilevel cervical spine degenerative disease, greatest from C5 to C7 with anterior osteophytes. Limited examination of the superior thorax shows a 1.5 cm spiculated nodule in the right upper lobe, which has recently been biopsied and per chart review, and mediastinal lymphadenopathy. There are bilateral lens replacements. There is severe atherosclerotic calcification of the right internal carotid artery. Note is made of a high riding right jugular bulb. IMPRESSION: 1. Markedly limited evaluation of the neck without intravenous contrast are both lymphadenopathy and primary mass. Within these limitations, there is a 1.8 cm lymph node that closely abuts the right parotid gland to and has central areas of hypoattenuation that may represent necrosis. 2. 1.5 cm spiculated nodule in the right upper lobe, which has recently been biopsied per chart review. This examination is limited for evaluation of the chest. 3. Severe atherosclerotic calcification involving the right internal carotid artery, for which a duplex evaluation could be performed for further evaluation. The findings, conclusions and recommendations within this report do not replace the initial findings, conclusions and recommendations made at the facility where the study was performed based upon the imaging and clinical condition at that time. Comparison with the prior report and clinical history is necessary. The provided images may or may not represent the [place] source data set and thus may contain changes that may lower the accuracy of this second-opinion interpretation. Dictated by: Rayo Mckeon M.D. The radiology attending physician has personally reviewed this study, and had reviewed and/or edited this written report and agrees with it. Electronically signed by: Mckenna Ferris M.D. Ranjan Cazares MD IMG CT PROCEDURES Lupe l Result documented in this encounter Visit Diagnoses Diagnosis Diagnosis unknown documented in this encounter Care Teams Yard Jacker Relationship Specialty Start Date End Date Terry Bender DO PCP - General Internal Medicine 01/03/18 05/14/22 Wilmer Taylor MD [address] [facility] [address] [place] [address] Referring Physician Obstetrics and Gynecology 05/09/12 Jeffrey Koch MD [address] [place] [address] Consulting Physician Rheumatology 02/03/21 documented as of this encounter
--- OUTSIDE RECORDS SUMMARY | 2024-05-03 02:53 | XMS_ITS | Encounter Summary ---
Author Organization [facility] Address [address] [facility] [address] [place] [address] Phone Care Team Providers Care Md Physician Dermatologist Name Role Phone Terry Bender Primary Care Provider [phone] Wilmer Taylor MD Unavailable [phone] Encounter Details Date Type Department Care Team (Late st Contact Info) Description 04/17/2019 Telephone [facility] Obstetrics and Gynecology [address] [facility] 13[address] [place] [address] [place] [address] Letha Brizuela RN Social History Tobacco Use Types Packs/Day [...] on file 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 Message left, per pt's communication sheet. Contact info left for return call as well. 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 Hope she is recovering well. PING MACHINE OPERATOR PING MACHINE OPERATOR documented in this encounter Plan of Treatment Not on file documented as of this encounter Visit Diagnoses Not on filedocumented in this encounter Care Teams Md Physician Dermatologist Relationship Specialty Start Date End Date Terry Bender DO PCP - General Internal Medicine 01/03/18 05/14/22 Wilmer Taylor MD [address] [place] [address] [place] [address] Referring Physician Obstetrics and Gynecology 05/09/12 documented as of this encounter
--- OUTSIDE RECORDS SUMMARY | 2024-05-03 02:53 | XMS_ITS | Encounter Summary ---
Author Organization [facility] Healthcare Address [address] [place] [address] Care Team Providers Care Emergency Dept Tech Name Role Phone Terry Bender Primary Care Provider [phone] Wilmer Taylor MD Unavailable [phone] Encounter Details Date Type Department Care Team (Late st Contact Info) Description 04/08/2019 12:31 PM PRODUCTION HONING MACHINE OPERATOR Anesthesia Event [facility] Operating Room [address] [place] [address] Elio Johnson MD [address] [place] [address] Castillo Glover Sr., MD [address] [place] [address] Anesthesia Record Procedure Summary Procedure Name Responsible Anesthesiologist Anesthesia Start Time Anesthesia Stop Time EXAM UNDER ANESTHESIA (Vagina) Elio Perez MD 04/08/19 1231 04/08/19 1336 Events Date Time Event Comment 04/08/2019 1150 1231 An Start 1232 In Room 1232 An Start Data 1244 An Induction The patient was reevaluated immediately before moderate or deep sedation use and before anesthesia induction. 1244 An LMA 1249 Proc Start 1255 Anesthesia Ready 1302 Incision Start 1323 Airway Removed 1324 Proc Fin 1329 an stop data 1331 Out of Room 1336 Handoff to RN I completed my handoff [...] disposition at the time of handoff: PACU 1336 An Stop Meds Name Total lidocaine 1 % PF 40 mg fentaNYL 50 mcg propofol 120 mg phenylephrine 100 mcg/mL 200 mcg ondansetron PF (ZOFRAN) 2 mg/mL injectio n 4 mg ceFAZolin 2,000 mg dexamethasone 4 mg/ml 4 mg ketorolac 15 mg Lactated Ringer's (LR) infusion 700 mL * Agents Name O2% N2O O2 Air Sevoflurane Inspired Sevoflurane * Blood No blood administrations on file. Lines, Drains, and Airways Type Details Placement Removal Peripheral IV Placement Date: 04/08/19; Placement Time: 1128; Catheter Size: 20 G; Orientation: Left; Location: Hand; Site Prep: Chlorhexidine; Insertion Attempts: 1; Patient Tolerance: Tolerated well; Removal Date: 04/08/19; Removal Time: 1500 04/08/19 1128 by Radha Milian RN 04/08/19 1500 by Fany Castle RN Supraglottic Airway Placement Date: 04/08/19; Placement Time: 1244 (created via procedure documentation); Size: 4; Insertion Attempts: 1; Removal Date: 04/08/19; Removal Time: 1323 04/08/19 1244 by Gabriele Amador CRNA 04/08/19 1323 by Gabriele Amador CRNA RETIRED Surgical Site 04/08/19; 1327; Groin; 03/25/24 (Retired LDA, Removed/Completed by [facility] with LDA Utility); 1213 (Retired LDA, Removed/Completed by [facility] with LDA Utility) 04/08/19 1327 by Bruna May RN 03/25/24 1213 by Discharge Provider, [facility] RETIRED Surgical Site 04/08/19; 1327; Vagina; 03/25/24 (Retired LDA, Removed/Completed by [facility] with LDA Utility); 1213 (Retired LDA, Removed/Completed by [facility] with LDA Utility) 04/08/19 1327 by Bruna [...] on file Legal Sex Female 10:10 AM PRODUCTION HONING MACHINE OPERATOR Gender Identity Not on file Sexual Orientation Not on file documented as of this encounter OR Notes * Anesthesia Postprocedure Evaluation - Elio Perez MD - 04/08/2019 2:32 PM CST Patient: Loida Guillory Procedure Summary Date: 04/08/19 Room / Location: [facility] OR POD 1 ROOM 322 / [facility] OR POD 1 Anesthesia Start: 1231 Anesthesia Stop: 1336 Procedures: EXAM UNDER ANESTHESIA (N/A Vagina) WIDE LOCAL EXCISION - VULVA and perineum (Left Perineum) Diagnosis: HAWA III (vulvar intraepithelial neoplasia III) (HAWA III (vulvar intraepithelial neoplasia III) [D07.1]) Surgeon: Sinan Schmidt MD Responsible Provider: Elio Perez MD Anesthesia Type: general ASA Status: 2 Anesthesia Type: general Last vitals BP 102/54 Pulse 66 Temp 36 ??C (96.8 ??F) Resp 19 SpO2 94% Anesthesia Post Evaluation Patient location during evaluation: PACU Patient participation: complete - patient participated Level of consciousness: fully awake Pain score: 3 Pain management: adequate Airway patency: adequate Evidence of recall: no Anesthetic complications: no Cardiovascular status: hemodynamically stable and blood pressure returned to baseline Respiratory status: acceptable and room air Hydration status: acceptable Pt is: normothermic Nausea/Vomiting status: none Comments: Stable and comfortable. Can go home. BP 102/54 Pulse 66 Temp 36 ??C (96.8 ??F) Resp 19 SpO2 96% UCTION HONING MACHINE OPERATOR * Anesthesia Procedure Notes - Gabriele Amador CRNA - 04/08/2019 12:59 PM PRODUCTION HONING MACHINE OPERATOR Associated Order(s): Airway Airway Patient location: OR Urgency: elective Date/time: 04/08/2019 12:44 PM Indications for airway management: anesthesia Difficult airway: no Staff: Supervising provider: Elio Perez MD Placed by: INVESTIGATIONS DIRECTOR: Gabriele Amador CRNA Emergent airway documentation: Risks and benefits discussed: yes Consent obtained: yes Consent given by: patient Airway prep: Preoxygenated: yes Sedation level during airway: GA Final airway details: Final airway type: supraglottic airway Final supraglottic airway: IGel SGA size: 4 Number of attempts: 1no UCTION HONING MACHINE OPERATOR * Anesthesia Preprocedure Evaluation - Elio Perez MD - 03/26/2019 9:36 AM CST Images from the original note were not included. [facility] Preoperative Assessment and Planning Preoperative Evaluation Record Evaluation type/location: [facility] OR (Pod 1) Date: 03/26/19 Anesthesia Evaluation Loida Guillory is a 68 y.o. female Procedure(s): EXAM UNDER ANESTHESIA WIDE LOCAL EXCISION - VULVA and perineum Pre-Op Diagnosis Codes: * HAWA III (vulvar intraepithelial neoplasia III) [D07.1] HISTORY HPI Loida Guillory is a 68 y.o. female who is being evaluated prior to undergoing EUA, wide local excision vulva for HAWA III . Past Medical History Information obtained from: patient and chart. Neurological Pertinent negatives: seizures; neuromuscular disease; CVA/stroke; TIA; CEA; ICA stenosis; dementia/mild cognitive impairment and carotid artery stent Cardiovascular + Hypertension Pertinent negatives: CAD ; MD ; CABG ; valvular heart disease; valve replacement; atrial fibrillation; arrhythmia; pacemaker/ICD; PVD; DVT/PE; negative for CHF; drug-eluting stent(s); bare metal stent(s) and coronary angioplasty Respiratory + COPD (feels breathing is at baseline.) Dyspnea frequency: >2 days/week but not daily. Rescue inhaler use: >2 days/week but not daily. Hospitalizations/ER in the last year: 0. + Current smoker - Counseled to abstain from smoking the day of surgery. Pertinent negatives: asthma; sleep apnea (SOTERO); pulmonary hypertension; no O2 use outside the hospital; no history of oral steriod use and no prior intubation for respiratory failure Hepatic / Heme Pertinent negatives: liver disease; history of anemia; history of thrombocytopenia and history of Shawna positive Gastrointestinal Pertinent negatives: GERD and hiatal hernia Renal / Pertinent negatives: renal disease; dialysis and nephrolithiasis Comments: Creatinine range 0.89-1.03 Musculoskeletal/Pain Pertinent negatives: chronic pain; chronic opioid use and previous treatment for opioid use disorder Endocrine / Other + Rheumatological disease Pertinent negatives: diabetes mellitus; thyroid disease; obesity (BMI >30); cancer history and transplanted organ Functional Capacity Functional capacity: <4 METs Review of Systems + SOB (with exertion such as carrying something up the stairs) + hard of hearing (deaf right ear) Pertinent negatives: productive cough; wheezing; recent cold/flu; fever; chest pain; palpitations; orthopnea; pedal edema; PND; heavy menses; Sickle Cell disease/trait; previous transfusion; transfusion reaction; melena/hematochezia; easy bruising; bleeding problems; syncope; dizziness; muscle weakness; chronic pain; numbness/tingling; vision loss; heartburn; nausea; dysphagia; diarrhea; dentures/partials; chipped/loose teeth; abdominal pain; diaphoresis and no unexpected weight change PAT Summary and Plans Cardiac risk classification of planned procedure: low cardiac risk. Preoperative assessment status: lab tests ordered. Additional comments: Loida Guillory is a 68 y.o. female who is being evaluated prior to undergoing a low cardiac risk surgery. Revised Cardiac Risk Index factors are (none) for a total RCRI of 0 out of 6. Functional capacity is <4 METs (specifically: SOB if walking 4 blocks). Obstructive sleep apnea (SOTERO) screening status is STOP-Bang=2 suggesting low risk for SOTERO. Blood bank needs for day of procedure: No type and screen needed Pending labs/tests include: CBC BMP The patient is on aspirin therapy for primary prevention. The patient???s perioperative cardiovascular risk is deemed low or is outweighed by bleeding risk. If the surgeon is in agreement with this risk assessment, we would support stopping aspirin prior to the procedure. The patient reports that such a plan is already in place. Pt stopped ASA on her own 03/20. Please call the CPAP attending ([phone]) with any questions. Preoperative evaluation performed by Christina Brewster NP on 03/26/19 at 10:03 AM.. Follow up note Labs reviewed and are significant for: creatinine 1.01 making creatinine clearance 42.9ml/min, consistent with previous values. Surgeon's office reviews laboratory results independently. CPAP process complete. Follow-up completed by: Esha Watts NP on 03/27/19 at 9:48 AM Patient Active Problem List Diagnosis ??? Anal dysplasia ??? Hypertension ??? Encounter for postoperative care ??? HAWA III (vulvar intraepithelial neoplasia III) Past Medical History: Diagnosis Date ??? Personal history of other diseases of the circulatory system History of hypertension - (Added by TW Conv) Past Surgical History: Procedure Laterality Date ??? OVARY SURGERY Ovarian Surgery - (Added by TW Conv) ??? UT BREAST SURGERY PROCEDURE UNLISTED Breast Surgery - (Added by TW Conv) ??? RHINOPLASTY Rhinoplasty - (Added by TW Conv) OB History No obstetric history on file. Allergies Allergen Reactions ??? Omeprazole Rash Med List Status: Nurse Complete Set By: Umair Murrieta RN at 03/26/2019 9:25 AM Taking? Last Dose Start Date End Date Provider amLODIPine (NORVASC) 10 mg tablet -- -- Historical Provider, ascorbic acid (ascorbic acid with lyssa hips) 500 mg tablet,chewable -- -- Historical Provider, aspirin (ASPIR-81) 81 mg tablet -- -- Historical Provider, budesonide-formoterol (SYMBICORT) 160-4.5 mcg/actuation inhaler -- -- Historical Provider, calcium carbonate-vitamin D3 1,500 mg (600mg elemental) -800 unit per tablet -- -- Historical Provider, folic acid (FOLVITE) 1 mg tablet -- -- Historical Provider, losartan (COZAAR) 25 mg tablet -- -- Historical Provider, methotrexate 2.5 mg tablet -- -- Historical Provider, nicotine (NICODERM CQ) 21 mg -- -- Historical Provider, omega 0-ova-goc-fish oil (FISH OIL) 100-160-1,000 mg capsule -- -- Historical Provider, Current Outpatient Medications: ??? amLODIPine (NORVASC) 10 mg tablet ??? [...] nicotine (NICODERM CQ) 21 mg ??? omega 3-qdw-ppd-fish oil (FISH OIL) 100-160-1,000 mg capsule Social History Tobacco Use Smoking Status Never Smoker Smokeless Tobacco Never Used Substance and Sexual Activity Alcohol Use Never ??? Frequency: Never Substance and Sexual Activity Drug Use Never Family History Problem Relation Age of Onset ??? Breast cancer Other Family history of malignant neoplasm of breast - Relation: Aunt (Added by TW Conv) ??? Colon cancer Other Family history of colon cancer - Relation: Uncle (Added by TW Conv) PAT Physical Exam Airway Exam: Mallampati: I Cervical ROM: FROM TM distance: 3 Cardiovascular Exam: Rate: regular Rhythm: regular Pulmonary Exam: LCTA, bilat EENT Exam: trachea midline Dental Exam: Appears intact Skin Exam: Skin is warm. Abdominal exam: Abdomen is soft. Bowel sounds are present. Current state: Patient's current state is cooperative. Vitals: 03/26/19 0925 03/26/19 0926 BP: 118/69 140/85 Pulse: 69 Resp: 22 SpO2: 96% PT: No results found for requested labs [...] Dementia Score: 0 Short Blessed Total Score: 0 DOS Physical Exam Medical history, medications, and allergies reviewed. Attestation: I endorse the findings of the anesthesia pre-evaluation assessment dated: 03/26/2019. Airway Exam: Mallampati: II Cervical ROM: FROM TM distance: >4 Jaw ROM: full Cardiovascular Exam: Rate: regular Rhythm: regular Pulmonary Exam: LCTA, bilat EENT Exam: trachea midline Dental Exam: Appears intact Skin Exam: Skin is warm and dry. Capillary refill is < 3 seconds. Turgor is normal. Abdominal Exam: Abdomen is soft. Bowel sounds are present. Current state: Patient's current state is cooperative. Anesthesia Plan ASA 2 My patient is approved for the Anesthesia Controlled Medication protocol when under care of a INVESTIGATIONS DIRECTOR Planned anesthesia: General Team communication plan: LMA Induction: Induction: intravenous. Postoperative Plan: Postoperative administration opioids intended. No postoperative mechanical ventilation intended. Patient's planned disposition post procedure is Outpatient. Informed Consent: Discussed plan with INVESTIGATIONS DIRECTOR. Anesthesia plan and risks discussed with patient. Consent and Attending signature: I and/or my designee have discussed the anesthesia plan, benefits, possible alternatives, parental presence at time of induction (if indicated), and clinically relevant risks that may include dental injury, unintentional awareness, and/or other complications. The patient and/or parent/legal guardian understand, and agree to proceed. All questions answered. UCTION HONING MACHINE OPERATOR UCTION HONING MACHINE OPERATOR UCTION HONING MACHINE OPERATOR UCTION HONING MACHINE OPERATOR documented in this encounter Plan of Treatment Not on file documented as of this encounter Procedures Procedure Name Priority Date/Time Associated Diagnosis Comments UT AN PROCEDURE PLACEHOLDER Routine 04/08/2019 12:59 PM PRODUCTION HONING MACHINE OPERATOR UT AN ELECTIVE SUPRAGLOTTIC AIRWAY Routine 04/08/2019 12:59 PM PRODUCTION HONING MACHINE OPERATOR documented in this encounter Results * UT AN ELECTIVE SUPRAGLOTTIC AIRWAY, UT AN PROCEDURE PLACEHOLDER (04/08/2019 12:59 PM PRODUCTION HONING MACHINE OPERATOR) Narrative Gabriele Amador CRNA - 04/08/2019 12:59 PM PRODUCTION HONING MACHINE OPERATOR Gabriele Amador CRNA ? 04/08/2019 ??1:00 PM Airway Patient location: OR Urgency: elective Date/time: 04/08/2019 12:44 PM Indications for airway management: anesthesia Difficult airway: no Staff: Supervising provider: Elio Perez MD Placed by: INVESTIGATIONS DIRECTOR: Gabriele Amador CRNA Emergent airway documentation: Risks and benefits discussed: yes Consent obtained: yes Consent given by: patient Airway prep: Preoxygenated: yes Sedation level during airway: GA Final airway details: Final airway type: supraglottic airway Final supraglottic airway: IGel SGA size: 4 Number of attempts: 1no Elio Perez MD ANESTHESIA ORDERAB LES Final Result documented in this encounter Visit Diagnoses Not on filedocumented in this encounter Administered Medications Inactive Administered Medications - up to 3 most recent administrations Medication Order MAR Action Action Date Dose Rate Site ceFAZolin (ANCEF) injection intravenous, As needed, Starting on Sun04/08/19 at 1249, Anesthesia Intra-op Given 04/08/2019 12:49 PM PRODUCTION HONING MACHINE OPERATOR 2,000 mg dexAMETHasone (DECADRON) 4 mg/mL injection Administer over 2 Minutes, As needed, Starting on Sun04/08/19 at 1306, Anesthesia Intra-op Given 04/08/2019 1:06 PM PRODUCTION HONING MACHINE OPERATOR 4 mg fentaNYL (SUBLIMAZE) preservative free injection intravenous, As needed, Starting on Sun04/08/19 at 1249, Anesthesia Intra-op Given 04/08/2019 12:50 PM PRODUCTION HONING MACHINE OPERATOR 25 mcg Given 04/08/2019 12:49 PM PRODUCTION HONING MACHINE OPERATOR 25 mcg ketorolac (TORADOL) injection As needed, Starting on Sun04/08/19 at 1320, Anesthesia Intra-op Given 04/08/2019 1:20 PM PRODUCTION HONING MACHINE OPERATOR 15 mg Lactated Ringer's (LR) infusion 30 mL/hr, intravenous, Continuous, Starting on Sun04/08/19 at 1145, Pre-Op Rate/Dose Change 04/08/2019 12:31 PM PRODUCTION HONING MACHINE OPERATOR 150 mL/hr New Bag 04/08/2019 11:29 AM PRODUCTION HONING MACHINE OPERATOR 30 mL/hr 30 mL/hr lidocaine PF (XYLOCAINE) 10 mg/mL (1 %) preservative free injection As needed, Starting on Sun04/08/19 at 1244, Anesthesia Intra-op Given 04/08/2019 12:44 PM PRODUCTION HONING MACHINE OPERATOR 40 mg ondansetron (ZOFRAN) injection intravenous, Administer over 2 Minutes, As needed, Starting on Sun04/08/19 at 1312, Anesthesia Intra-op Given 04/08/2019 1:12 PM PRODUCTION HONING MACHINE OPERATOR 4 mg phenylephrine (ELIZABETH-SYNEPHRINE) 0.5 mg/5 mL (100 mcg/mL) in sodium chloride 0.9% (premix) intravenous, As needed, Starting on Sun04/08/19 at 1254, Anesthesia Intra-op Given 04/08/2019 12:59 PM PRODUCTION HONING MACHINE OPERATOR 100 m cg Given 04/08/2019 12:54 PM PRODUCTION HONING MACHINE OPERATOR 100 mcg propofol (DIPRIVAN) IV intravenous, As needed, Starting on Sun04/08/19 at 1250, Anesthesia Intra-op Given 04/08/2019 12:50 PM PRODUCTION HONING MACHINE OPERATOR 20 mg Given 04/08/2019 12:44 PM PRODUCTION HONING MACHINE OPERATOR 100 mg documented in this encounter Care Teams Emergency Dept Tech Relationship Specialty Start Date End Date Terry Bender DO PCP - General Internal Medicine 01/03/18 05/14/22 Wilmer Taylor MD [address] [facility] [address] [address] Referring Physician Obstetrics and Gynecology 05/09/12 documented as of this encounter
--- OUTSIDE RECORDS SUMMARY | 2024-05-03 02:53 | XMS_ITS | Encounter Summary ---
Author Organization [facility] Facility Care Team Providers Care Fighting Vehicle Systems Maintainer Name Role Phone Unavailable Primary Care Provider Unavailabl e Encounter Details Date Type Department Care Team (Late st Contact Info) Description 04/09/2012 8:42 AM ASBESTOS ABATEMENT WORKER - 04/09/2012 4:00 PM ASBESTOS ABATEMENT WORKER Hospital [facility]counter [facility] Screening for other and unspecified respiratory condition Social History Tobacco Use Types Packs/Day Years Used Date Smoking Tobacco: Never Assessed Comments Unknown Sex and Gender Information Value Date Recorded Sex Assigned at Not on file Legal Sex Female 10:10 AM ASBESTOS ABATEMENT WORKER Gender Identity Not on file Sexual Orientation Not on file documented as of this encounter Plan of Treatment Not on file documented as of this encounter Visit Diagnoses Diagnosis Screening for other and unspecified respiratory condition documented in this encounter
--- OUTSIDE RECORDS SUMMARY | 2024-05-03 02:53 | XMS_ITS | Encounter Summary ---
Author Organization [facility] Facility Care Team Providers Care Leisure Studies Professor Name Role Phone Unavailable Primary Care Provider Unavailabl e Encounter Details Date Type Department Care Team (Late st Contact Info) Description 04/09/2012 8:42 AM CAP PARTS CUTTER - 04/09/2012 4:00 PM [facility] Hospital Encounter [facility] Schmidt, Sinan Durand MD [address] [place] [address] Carcinoma in situ of vulva; Benign neoplasm of skin of trunk, except scrotum; Localized osteoarthrosis, hand; Hearing loss; Tobacco use disorder; Encounter for long-term (current) use of aspirin; Encounter for long-term (current) use of other medications Social History Tobacco Use Types Packs/Day Years Used Date Smoking Tobacco: Never Assessed Comments Unknown Sex and Gender Information Value Date Recorded Sex Assigned at Not on file Legal Sex Female 10:10 AM [facility] Gender Identity Not on file Sexual Orientation Not on file documented as of this encounter Plan of Treatment Not on file documented as of this encounter Visit Diagnoses Diagnosis 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
--- OUTSIDE RECORDS SUMMARY | 2024-05-03 02:53 | XMS_ITS | Encounter Summary ---
Author Organization [facility] Healthcare Address [address] [place] [address] Care Team Providers Care Comber Operator Name Role Phone Unknown, Notinfile Primary Care Provider Unavail able Wilmer Taylor MD Unavailable [phone] Encounter Details Date Type Department Care Team (Late st Contact Info) Description 11/01/2016 Orders Only [facility] [phone] Christina Brewster NP [address] [facility] [phone] [place] [address] Social History Tobacco Use Types Packs/Day Years Used Date Smoking Tobacco: Never Assessed Comments Unknown Sex and Gender Information Value Date Recorded Sex Assigned at Not on file Legal Sex Female 10:10 AM GAS AND OIL CHECKER Gender Identity Not on file Sexual Orientation Not on file documented as of this encounter Plan of Treatment Not on file documented as of this encounter Procedures Procedure Name Priority Date/Time Associated Diagnosis Comments BASIC METABOLIC PANEL After X-Ray 11/01/2016 9:50 AM CDT documented in this encounter Results * Basic metabolic panel (11/01/2016 9:50 AM CDT) Sodium 140 135 - 145 mmol/L [facility] Potassium, pl 4.6 3.3 - 4.9 mmol/L [facility] Chloride 106 97 - 110 mmol/L [facility] CO2 23 22 - 32 mmol/L [facility] BUN 19 8 - 25 mg/dL [facility] Glucose 103 70 - 199 mg/dL [facility] Creatinine 1.03 0.60 - 1.10 mg/dL [facility] Calcium 9.8 8.5 - 10.3 mg/dL [facility] Anion gap 11 2 - 15 mmol/L [facility] Blood specimen (specimen) 11/01/2016 9:50 AM CDT 11/01/2016 11:03 AM CDT us Christina Brewster NUCLEAR PLANT EQUIPMENT OPERATOR LAB BLOOD ORDERABLES Fin al Result [facility] Department [place] [address] documented in this encounter Visit Diagnoses Not on filedocumented in this encounter Care Teams Comber Operator Relationship Specialty Start Date End Date Unknown, Notinfile PCP - General 10/05/16 11/13/16 Wilmer Taylor MD [facility] [address] [address] Referring Physician Obstetrics and Gynecology 05/09/12 documented as of this encounter
--- OUTSIDE RECORDS SUMMARY | 2024-05-03 02:53 | XMS_ITS | Encounter Summary ---
Author Organization [facility] Facility Care Team Providers Care Gift Basket Packer Name Role Phone Wilmer Taylor MD Unavailable [phone] Encounter Details Date Type Department Care Team (Late st Contact Info) Description 06/20/2012 - 06/20/2012 11:59 PM CREDIT MANAGER Hospital Encounter [facility] Sinan Mae MD [address] [facility] [address] [place] [address] Carcinoma in situ of vulva Social History Tobacco Use Types Packs/Day Years Used Date Smoking Tobacco: Never Assessed Comments Unknown Sex and Gender Information Value Date Recorded Sex Assigned at Not on file Legal Sex Female 10:10 AM CREDIT MANAGER Gender Identity Not on file Sexual Orientation Not on file documented as of this encounter Plan of Treatment Not on file documented as of this encounter Procedures Procedure Name Priority Date/Time Associated Diagnosis Comments SURGICAL PATHOLOGY 06/20/2012 documented in this encounter Results * Surgical pathology (06/20/2012) Narrative 06/20/2012 Ordered by an unspecified provider. [facility] Provider LAB PATHOLOGY ORDERABLES Final Result documented in this encounter Visit Diagnoses Diagnosis Carcinoma in situ of vulva Carcinoma in situ, vulva documented in this encounter Care Teams Gift Basket Packer Relationship Specialty Start Date End Date Wilmer Taylor MD [address] [facility] [place] [address] [place] [address] Referring Physician Obstetrics and Gynecology 05/09/12 documented as of this encounter
--- OUTSIDE RECORDS SUMMARY | 2024-05-03 02:53 | XMS_ITS | Encounter Summary ---
Author Organization [facility] Healthcare Address [address] [place] [address] Care Team Providers Care Event Operations Manager Name Role Phone Unknown, Notinfile Primary Care Provider Unavail able Wilmer Taylor MD Unavailable [phone] Encounter Details Date Type Department Care Team (Latest Contact Info) Description 10/31/2016 8:52 AM CDT - 10/31/2016 11:59 PM CDT Hospital Encounter [facility] INTERIM [phone] Sinan Schmidt MD [address] [place] [address] Discharge Disposition: Discharge to home or self care Social History Tobacco Use Types Packs/Day Years Used Date Smoking Tobacco: Never Assessed Comments Unknown Sex and Gender Information Value Date Recorded Sex Assigned at Not on file 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 us Historical Provider LAB BLOOD ORDERABLES Lupe l Result documented in this encounter Visit Diagnoses Not on filedocumented in this encounter Care Teams Event Operations Manager Relationship Specialty Start Date End Date Unknown, Notinfile PCP - General 10/05/16 11/13/16 Wilmer Taylor MD [address] [facility] [address] [place] [address] Referring Physician Obstetrics and Gynecology 05/09/12 documented as of this encounter
--- OUTSIDE RECORDS SUMMARY | 2024-05-03 02:53 | XMS_ITS | Encounter Summary ---
Author Organization [facility] Healthcare Address [address] [place] [address] Care Team Providers Care Scratch Polisher Name Role Phone Unknown, Notinfile Primary Care Provider Unavail able Wilmer Taylor MD Unavailable [phone] Encounter Details Date Type Department Care Team (Latest Contact Info) Description 11/10/2016 5:48 AM CDT - 11/10/2016 11:05 AM CDT Hospital Encounter [facility] INTERIM [phone] Sinan Schmidt MD [address] [id number] Discharge Disposition: Discharge to home or self care Social History Tobacco Use Types Packs/Day Years Used Date Smoking Tobacco: Never Assessed Comments Unknown Sex and Gender Information Value Date Recorded Sex Assigned at Not on file 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 Reg No: [id number] U H #: [id number] Admit Dt.: 11/10/2016 : 1950 Pt Type: [facility] Room No: Attending: Sinan Schmidt M.D. Surgeon: Sinan Schmidt M.D. Dictating: Angie Boo M.D. 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 PROCEDURE Examination under anesthesia. Excision of perianal lesion and fulguration. INDICATION FOR PROCEDURE This 66-year-old female with a history of HAWA 3 and AIN 3. For HAWA 3, she has had multiple previous wide local excisions. Currently no evidence of a diseased or a biopsiable area. For the AIN 3, she has 2 areas of aceto-white changes visualized on exam so it was decided to proceed to the OR for surgical excision given inability to tolerate procedure in the office. OPERATIVE FINDINGS Two distinct areas of aceto-white changes noted in the perianal region; one on the right, one on the left. The right lesion was approximately 1 x 1 cm and the left lesion was approximately 0.5 x 0.5 cm. DESCRIPTION OF PROCEDURE After obtaining the appropriate operative consents the patient was taken to the operating room where general LMA anesthesia was obtained without difficulty and confirmed to be adequate. The patient was then placed in dorsal lithotomy position with her legs in Yellofin stirrups. She was then examined under anesthesia and acetic acid was placed on the perianal region with the findings previously discussed above. The patient was then draped in the normal sterile fashion. 8ml of Marcaine with epinephrine was used on the right and left perianal regions. A Bovie device was then used to excise the right region with a 1 x 1 cm excision and a 0.5 x 0.5 cm excision on the left. There was also fulguration with bovie of the area on the right and the left. The right lesion was closed with 4-0 Vicryl with 3 interrupted stitches. The left area did not require any stitches. The patient tolerated the procedure well and was taken back to the recovery room in stable condition. COMPLICATIONS None. ESTIMATED BLOOD LOSS None. INTRAOPERATIVE FLUIDS 500 mL. There was no urine output recorded. The patient was not cathed. SPECIMENS REMOVED AND SENT TO PATHOLOGY Right and left perianal lesions. I, Dr. Sinan Schmidt, was present for and directly participated in the entire procedure. Electronically Authenticated and Edited by: Angie Boo MD On 11/13/2016 03:07 PM CDT Electronically Authenticated and Edited by: Sinan Schmidt MD On 12/15/2016 10:27 AM CDT Angie Boo M.D. Sinan Schmidt M.D. [facility] #[id number] Editing MT: TD: 11/10/2016 11:40 AM cc: Abbey Alvarado M.D. documented in this encounter Plan of Treatment Not on file documented as of this encounter Procedures Procedure Name Priority Date/Time Associated Diagnosis Comments SURGICAL PATHOLOGY Routine 11/10/2016 7: 55 AM CDT SURGICAL PATHOLOGY 11/10/2016 12 :00 AM CDT documented in this encounter Results * Surgical pathology (11/10/2016 7:55 AM CDT) 11/10/2016 7:55 AM CDT 11/10/2016 8:31 AM CDT Narrative 11/16/2016 6:53 PM CDT [facility] [place] [address] SURGICAL PATHOLOGY REPORT FINAL Patient Name: DARRION GUILLORY ? Address: [address] [place] [address] ??Service: ??Surgery ??[place], [place] ??[id number] ??Location: ??[facility] Taken: 11/10/2016 Gender: F ?? Received: 11/10/2016 : 1950 (Age: 66) [facility] #: ??[id number] Accessioned: 11/10/2016 ?Patient Type: ??[facility] SDS Reported: 11/16/2016 ? Physician(s): Sinan Schmidt M.D. ? Diagnosis: A. ??Anus, right perianal, excision ? - High-grade squamous dysplasia (severe dysplasia, AIN 3) - No evidence of invasive squamous carcinoma - Dysplasia extends to resection margin B. ??Anus, left perianal, excision ? - High-grade squamous dysplasia (moderate dysplasia, AIN 2) ? - No evidence of invasive squamous carcinoma ajm/11/14/2016 16:45 By this signature, I attest that the above diagnosis is based upon my personal examination of the slides(and/or other material indicated in the diagnosis). ?? Deangelo Ching MD ??Report Electronically Reviewed and Signed Out By ??Deangelo Ching MD 11/16/2016 18:53:31 Microscopic Description and Comment: Microscopic examination substantiates the above cited diagnosis. ?Seven Leo MD PhD ?History: The patient is a 66-year-old woman with anal intraepithelial neoplasia, and HAWA. ??Operative procedure: Wide local excision perianal lesion. Specimen(s) Received: A: Right perianal lesion B: Left perianal lesion Gross Description: The specimen is received in two formalin filled containers each labeled with the patient's name. ??The first container is additionally labeled right perianal lesion. ??It holds a 0.8 x 0.5 x 0.6 cm pickard-pink pedunculated piece of soft tissue. ??The resection margin is inked black and the specimen is serially sectioned. ??Labeled A1. ??Jar 0. The second container is also labeled left perianal lesion. ??It holds a 0.5 x 0.3 x 0.6 cm pedunculated piece of pickard-pink soft tissue. ??The resection margin is inked. ??The specimen is bisected. ??Labeled B1. ??Jar 0. cnewho/11/10/2016 10:57 ?Megan Cuevas, BS, CT (ASCP ? By this signature, I attest that the above diagnosis is based upon my personal examination of the slides(and/or other material). ?? Surgical Pathology report is available electronically in Clinical Desktop. The performance characteristics of some immunohistochemical stains, fluorescence in-situ hybridization tests and immunophenotyping by flow cytometry cited in this report (if any) were determined by the Surgical Pathology Department at [facility] as part of an ongoing quality control auditor program and in compliance with federally mandated [...] performance characteristics determined by the Surgical Pathology Department of [facility]. ??It has not been cleared or approved by the U. S. Food and Drug Administration. Sinan Schmidt MD LAB PATHOLOGY ORDERABLES Final Result * SURGICAL PATHOLOGY (11/10/2016 12:00 AM CDT) Narrative 11/10/2016 12:00 AM CDT Ordered by an unspecified provider. us Historical Provider LAB PATHOLOGY ORDERABLES Final Result documented in this encounter Visit Diagnoses Not on filedocumented in this encounter Care Teams Scratch Polisher Relationship Specialty Start Date End Date Unknown, Notinfile PCP - General 10/05/16 11/13/16 Wilmer Taylor MD [address] [id number] Referring Physician Obstetrics and Gynecology 05/09/12 documented as of this encounter
--- OUTSIDE RECORDS SUMMARY | 2024-05-03 02:53 | XMS_ITS | Encounter Summary ---
Author Organization [facility] Address [address] [facility] [address] [place] [address] Phone Care Team Providers Care Tacking Stitch Remover Name Role Phone Terry Bender Primary Care Provider [phone] Wilmer Taylor MD Unavailable [phone] Reason for Visit * Reason Comments Follow-up * Oncology (Routine) - Closed Specialty Diagnoses / Procedures Referred By Contac t Referred To Contact Gynecologic Oncology Diagnoses Appt Comment: 6 MONTHS Reason For Visit: 6 MONTHS Procedures TECHNOLOGY RECRUITER RETURN [facility] Obstetrics and Gynecology [address] [facility] Medicine [address] [place] [address] [place] [address] Phone: tel: fax: Sinan Schmidt MD [address] [place] [address] Phone: tel: fax: Referral ID Status Reason Start Date Expiration Date Visits Re quested Visits Authorized [id number] Closed 12/28/2017 03/29/2018 3 3 Encounter Details Date Type Department Care Team (Latest Contact Info) Description 01/03/2018 3:30 PM CDT Office Visit [facility] Obstetrics and Gynecology [address] [facility] [address]th [place] [address] [place] [address] Sinan Schmidt MD [address] [place] [address] 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) Social History Tobacco Use Types Packs/Day Years Used Date Smoking Tobacco: Never Assessed Comments No Sex and Gender Information Value Date Recorded Sex Assigned at Not on file 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 Gender Identity Not on file Sexual Orientation Not on file documented as of this encounter Last Filed Vital Signs Vital Sign Reading Time Taken Comments Blood Pressure 144/69 01/03/2018 3:48 PM CDT Pulse 71 01/03/2018 3:48 PM CDT Temperature 36.7 ??C (98.1 ??F) 01/03/2018 3:48 PM CD T Respiratory Rate 22 01/03/2018 3:48 PM CDT Oxygen Saturation 93% 01/03/2018 3:48 PM CDT Inhaled Oxygen Concentration - - Weight 64.9 kg (143 lb 1.6 oz) 01/03/2018 3:48 P M CDT Height 160 cm (5' 3 ) 01/03/2018 3:48 PM CDT Body Mass Index 25.35 01/03/2018 3:48 PM CDT documented in this encounter Progress Notes * Sinan Schmidt MD - 01/03/2018 3:30 PM CDT GYNONC Return Visit oLida Guillory 1950 67 y.o. 01/03/2018 Visit Diagnosis 1. HAWA III (vulvar intraepithelial neoplasia III) Subjective Loida is here for follow up for VIN3. She had initial resection on 04/10/12, followed by repeat in 02/2013. 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 Since that time, she has remained without any other areas of concern. She returns today for surveillance without any complaints. No itching. Review of Systems Systemic: Pain: None, Fatigue: [...] Surgery - (Added by TW Conv) ??? ND BREAST SURGERY PROCEDURE UNLISTED Breast Surgery - (Added by TW Conv) ??? RHINOPLASTY Rhinoplasty - (Added by TW Conv) Allergies Allergen Reactions ??? Omeprazole Rash Current Outpatient Prescriptions Medication Sig Dispense Refill ??? amLODIPine (NORVASC) 10 mg tablet ??? aspirin (ASPIR-81) 81 mg tablet ??? budesonide-formoterol (SYMBICORT) 160-4.5 mcg/actuation inhaler ??? calcium carbonate-vitamin D3 1,500 mg (600mg elemental) -800 unit per tablet ??? folic acid (FOLVITE) 1 mg tablet ??? losartan (COZAAR) 25 mg tablet ??? losartan (COZAAR) 50 mg tablet ??? nicotine (NICODERM CQ) [address] on the skin. ??? omega 7-lly-eee-fish oil (FISH OIL) 100-160-1,000 mg capsule ??? methotrexate 2.5 mg tablet No current facility-administered medications for this visit. Social History Substance Use Topics ??? Smoking status: Not on file ??? Smokeless tobacco: Not on file ??? Alcohol use Not on file Family History Problem Relation Age of Onset ??? Breast cancer Other Family history of malignant neoplasm of breast - Relation: Aunt (Added by TW Conv) ??? Colon cancer Other Family history of colon cancer - Relation: Uncle (Added by TW Conv) No LMP recorded. Patient is postmenopausal. OB History No data available Screening History Date of Last Pap if Known: 2015 History of Abnormal Paps: No Ever used Hormone Replacement Therapy?: Yes Ever had a mammogram?: Yes Date of Mammogram: 07/2017 Mammogram result: Normal Ever had a colonoscopy?: Yes Date of Colonoscopy: 2012 Colonoscopy Result: Normal Ever had a bone-density test?: No Objective Vitals Vitals BP 144/69 Pulse 71 Temp 36.7 ??C (98.1 ??F) Resp 22 Ht 160 cm (5' 3 ) Wt 64.9 kg (143 lb 1.6 oz) SpO2 93% BMI 25.35 kg/m?? Distress Score: 0 - No distress Physical exam: General Appearance: well, in no [...] Meatus: without masses or tenderness. Bladder: non-tender. Vulva and anal area without lesions. Vagina: without lesions or abnormal discharge. Bimanual: no adnexal masses, tenderness, or nodularity. Rectovaginal: confirms above; rectovaginal septum & parametria clear, posterior cul de sac smooth Skin: without rashes. Lower extremities: without edema or calf tenderness. Performance Score: ECOG 0 Assessment/Plan 1. VIN3. -No evidence of recurrent dysplasia today. -RTC in 1 year, or sooner with any symptoms. Sinan Schmidt MD CC: Referring Provider: Wilmer Taylor, * and PCP: Terry Bender DO Enclosures:Note documented in this encounter Plan of Treatment Not on file documented as of this encounter Visit Diagnoses Diagnosis HAWA III (vulvar intraepithelial neoplasia III)- Primary Carcinoma in situ, vulva documented in this encounter Historical Medications * This list may reflect changes made after this encounter. omega 5-fbh-tbq-fish oil 100-160-1,000 mg capsuleIndicatio ns:hypertriglyce ridemia Take 1 capsule by mouth daily after dinner calcium carbonate-vitami n D3 1,500 mg (600mg elemental) -800 unit per tabletIndication s:hypocalcemia Take 2 tablets by mouth daily after lunch aspirin 81 mg enteric coated tabletIndication s:prevention of thrombosis Take 1 tablet (81 mg total) by mouth daily after lunch losartan (COZAAR) 50 mg tablet 12/25/2017 9 budesonide-formo teroL (SYMBICORT) 160-4.5 mcg/actuation inhalerIndicatio ns:Bronchospasm Prevention with COPD Inhale 2 puffs 2 (two) times a day 4 nicotine (NICODERM CQ) 21 mgIndications:Sm oking Cessation Place 1 patch on the skin daily 3 methotrexate 2.5 mg tabletIndication s:Rheumatoid Arthritis Take 12.5 mg by mouth every 7 days Every Sunday 1 losartan (COZAAR) 25 mg tabletIndication s:hypertension Take 25 mg by mouth daily after lunch 2 folic acid (FOLVITE) 1 mg tabletIndication s:Folate Deficiency Take 1 mg by mouth daily after lunch 1 amLODIPine (NORVASC) 10 mg tabletIndication s:hypertension 10 mg daily after lunch 2 added in this encounter Orders Appointment Requests Count Last Ordered Date Fi rst Ordered Date ONCBCN CLINIC APPOINTMENT REQUEST 1 019 documented in this encounter Care Teams Tacking Stitch Remover Relationship Specialty Start Date End Date Terry Bender DO PCP - General Internal Medicine 01/03/18 05/14/22 Wilmer Taylor MD [address] [place] [address] Referring Physician Obstetrics and Gynecology 05/09/12 documented as of this encounter
--- OUTSIDE RECORDS SUMMARY | 2024-05-03 02:53 | XMS_ITS | Encounter Summary ---
Author Organization [facility] Healthcare Address [address] [place] [address] Care Team Providers [facility] Former Machine Name Role Phone Terry Bender DO Primary Care Provider [phone] Wilmer Taylor MD Unavailable [phone] Encounter Details Date Type Department Care Team (Latest Contact Info) Description 04/08/2019 9:31 AM CALENDER LET OFF OPERATOR - 04/08/2019 3:16 PM [facility] Hospital Encounter [facility] Operating Room [address] [place] [address] Sinan Schmidt MD [address] [facility] [address] [place] [address] HAWA III (vulvar intraepithelial neoplasia III) Discharge Disposition: Discharge to home or self [...] on file Legal Sex Female 10:10 AM CALENDER LET OFF OPERATOR Gender Identity Not on file Sexual Orientation Not on file documented as of this encounter Last Filed Vital Signs Vital Sign Reading Time Taken Comments Blood Pressure 113/71 04/08/2019 2:40 PM CALENDER LET OFF OPERATOR Pulse 64 04/08/2019 2:40 PM CALENDER LET OFF OPERATOR Temperature 36 ??C (96.8 ??F) 04/08/2019 1:35 PM CALENDER LET OFF OPERATOR Respiratory Rate 14 04/08/2019 2:40 PM CALENDER LET OFF OPERATOR Oxygen Saturation 92% 04/08/2019 2:40 PM CALENDER LET OFF OPERATOR Inhaled Oxygen Concentration - - Weight - - Height - - Body Mass Index - - documented in this encounter Discharge Diagnoses Diagnosis 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, vulva Essential (primary) hypertension - ESSENTIAL (PRIMARY) HYPERTENSION Unspecified essential hypertension Chronic obstructive pulmonary disease, unspecified (HCC) - CHRONIC OBSTRUCTIVE PULMONARY DISEASE, UNSPECIFIED Nicotine dependence, cigarettes, uncomplicated - NICOTINE DEPENDENCE, CIGARETTES, UNCOMPLICATED Rheumatoid arthritis, unspecified (HCC) - RHEUMATOID ARTHRITIS, UNSPECIFIED Unspecified hearing loss, right ear - UNSPECIFIED HEARING LOSS, RIGHT EAR Other group home (current) drug therapy - OTHER [facility] (CURRENT) DRUG THERAPY rat exterminator (current) use of aspirin - DISTRICT CLAIMS MANAGER (CURRENT) USE OF ASPIRIN documented in this encounter Discharge Instructions * Discharge Instructions* Maria Isabel Horan MD - 04/08/2019 12:01 PM CALENDER LET OFF OPERATOR Discharge Instructions Call Your Doctor If: * You have a fever of more than 101 degrees. * You have nausea lasting more than a few hours. * You do not have a bowel movement for 3 days. * Your pain medicine is not helping your pain. * You have foul smelling drainage from your vagina or wound. * You are bleeding more than you do during your regular period. Diet: * You may eat all the foods you ate before surgery. * Drink at least 8-10 cups of water a day. * Avoid drinking alcohol and caffeine. Activity: * Do NOT drive for 6 weeks or longer if you are taking narcotic pain medication. * Do NOT place anything in the vagina for 6 weeks or until the doctor says it???s OK. (No tampons, douching or sexual intercourse.) * It is normal to have vaginal dryness after surgery. * Do NOT lift objects over 10 pounds for 6 weeks. * It is OK to slowly climb stairs. * Staying active is very important to keep your bowels moving and improving your circulation. * Take short walks every day. Care Instructions: * You may shower - wash your vulva area with your hand and warm water instead of using a washcloth. * No tub baths or soaking until the doctor says it is OK. * Perform sitz bath 3 times a day, pat dry with clean towel. * Do NOT scrub. Blow dry with a blow dryer to get incision as dry as possible. * Do not apply any creams or ointments to areas unless instructed by your doctor. * Wear white all-cotton underwear. * Avoid pantyhose. * Avoid tight clothing. Follow Up: * It is important to keep your follow up appointment. * If you need to make changes to your appointment, please call the office to reschedule. NDER LET OFF OPERATOR * Attachments The following attachments cannot be sent through Care Everywhere. * [facility] PATHWAY TO EXCELLENT CARE AFTER SURGERY documented in this encounter Medications at Time [...] 2 tablets by mouth daily after lunch omega 8-azi-chh-fish oil 100-160-1,000 mg capsuleIndicatio ns:hypertriglyce ridemia Take 1 capsule by mouth daily after dinner amLODIPine (NORVASC) 10 mg tabletIndication s:hypertension 10 mg daily after lunch 2 budesonide-formo teroL (SYMBICORT) 160-4.5 mcg/actuation inhalerIndicatio ns:Bronchospasm Prevention with COPD Inhale 2 puffs 2 (two) times a day 4 folic acid (FOLVITE) 1 mg tabletIndication s:Folate Deficiency Take 1 mg by mouth daily after lunch 1 losartan (COZAAR) 25 mg tabletIndication s:hypertension Take 25 mg by mouth daily after lunch 2 methotrexate 2.5 mg tabletIndication s:Rheumatoid Arthritis Take 12.5 mg by mouth every 7 days Every Sunday 1 nicotine (NICODERM CQ) 21 mgIndications:Sm oking Cessation Place 1 patch on the skin daily 3 oxyCODONE (ROXICODONE) 5 mg immediate release tabletIndication s:Pain Take 1 tablet (5 mg total) by mouth every 4 (four) hours as needed for pain (moderate to severe pain) for up to 10 doses 10 tablet 04/08/2019 1 documented as of this encounter Ordered Prescriptions Prescription Sig Dispense Quantity Refills Last Filled Start Date End Date acetaminophen (TYLENOL) 500 mg tablet Take 2 tablets (1,000 mg total) by mouth every 6 (six) hours as needed for pain 60 tablet 2 04/08/2019 oxyCODONE (ROXICODONE) 5 mg immediate release tabletIndications: Pain Take 1 tablet (5 mg total) by mouth every 4 (four) hours as needed for pain (moderate to severe pain) for up to 10 doses 10 tablet 04/08/2019 1 documented in this encounter Discharge Disposition Disposition Code Departure Means Destination Discharge to home or self care documented in this encounter H&P Notes * Sinan Schmidt MD - 04/08/2019 11:53 AM CST Images from the original note were not included. Gynecologic Oncology Return Visit ?? Darrion Guillory 1950 68 y.o. 02/06/2019 ?? Visit Diagnosis 1. HAWA III (vulvar intraepithelial neoplasia III) ? Subjective ?? Darrion Guillory returns today for follow up for history of HAWA. She had initial resection on 04/10/12, followed by repeat in 02/2013. ??She also had an area of AIN and underwent excision of this 11/10/16. ?? 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 He did a CT scan and a needle biopsy. She went to a surgeon who said he could take it out, but she does not want it taken out due to facial droopiness or paralysis. She is going to leave it there since she has had it for several years already. Her family is okay with this decision. ?? Nothing is bothering her in the vulvar area. No itching or bleeding. She says she has not been smoking much; 4-5 cigarettes per day. She watches her grandkids daily and keeps active. ?? Cancer Staging No matching staging information was found for the patient. ?? Review of Systems Systemic: Pain: None, Fatigue: [...] Mood changes: None Skin: Skin rash: None ?? Patient Active Problem List Diagnosis ??? Anal dysplasia ??? Hypertension ??? Encounter for postoperative care ??? HAWA III (vulvar intraepithelial neoplasia III) ?? Medical??History Past Medical History: Diagnosis Date ??? Personal history of other diseases of the circulatory system ? History of hypertension - (Added by TW Conv) ?? Surgical??History Past Surgical History: Procedure Laterality Date ??? OVARY SURGERY ? Ovarian Surgery - (Added by TW Conv) ??? MI BREAST SURGERY PROCEDURE UNLISTED ? Breast Surgery - (Added by TW Conv) ??? RHINOPLASTY ? Rhinoplasty - (Added by TW Conv) ?? Allergies Allergen Reactions ??? Omeprazole Rash ?? Current Outpatient Medications: ??? amLODIPine (NORVASC) 10 mg tablet ??? aspirin (ASPIR-81) 81 mg tablet ??? budesonide-formoterol (SYMBICORT) 160-4.5 mcg/actuation inhaler ??? calcium carbonate-vitamin D3 1,500 mg (600mg elemental) -800 unit per tablet ??? folic acid (FOLVITE) 1 mg tablet ??? losartan (COZAAR) 25 mg tablet ??? losartan (COZAAR) 50 mg tablet ??? methotrexate 2.5 mg tablet ??? nicotine (NICODERM CQ) 21 mg ??? omega 7-uts-btf-fish oil (FISH OIL) 100-160-1,000 mg capsule Social History ?? Tobacco Use ??? Smoking status: Never Smoker ??? Smokeless tobacco: Never Used Substance Use Topics ??? Alcohol use: Never ? Frequency: Never ?? Family History Problem Relation Age of Onset ??? Breast cancer Other ? Family history of malignant neoplasm of breast - Relation: Aunt (Added by TW Conv) ??? Colon cancer Other ? Family history of colon cancer - Relation: Uncle (Added by TW Conv) ?? No LMP recorded. Patient is postmenopausal. ?? Objective Vitals Vitals BP 124/81 Pulse 72 Temp 36.6 ??C (97.8 ??F) Resp 16 Ht 160 cm (5' 3 ) Wt 62.9 kg (138 lb 9.6 oz) SpO2 97% ? No BMI 24.55 kg/m? Distress Score: 5 ?? Physical exam: General Appearance: well, in no [...] lesions. Urethra/Urethral Meatus: without masses or tenderness. Vulvar exam: 3 spots of concern: 1 spot on left labium minus right under clitoris .5 cm Upper area clean Perianal area, left: is about 1 cm lesion Perineal body: faint 1cm area Bladder: non-tender. Vagina: without lesions or abnormal discharge. Bimanual: no adnexal masses, tenderness, or nodularity. Rectovaginal: confirms above; rectovaginal septum & parametria clear, posterior cul de sac smooth Skin: without rashes. Lower extremities: without edema or calf tenderness. ? Performance Score: 0 ? Assessment/Plan 1. HAWA III -3 new lesions noted on exam today. -Recommend EUA/WLE -Discussed alternatives such as aldara ointment (she has tried this in the past and had intolerance) ?? 2. Research. -She is eligible for the WLE antibiotic study; ok to reach out to her in CPAP or over the phone. ?? Sinan Schmidt MD NDER LET OFF OPERATOR documented in this encounter Miscellaneous Notes * Op Note - Maria Isabel Horan MD - 04/08/2019 1:02 PM CST Operative Note Date of Operation: 04/08/2019 Attending: Sinan Schmidt MD Surgical Team: Surgeon(s) and Role: * Sinan Schmidt MD - Primary * Maria Isabel Horan MD - Resident - Assisting * Leandra Medina MD - Fellow Anesthesia: General Preoperative Diagnosis: 1. HAWA III Postoperative Diagnosis: same Name of Operation: 1. Exam under anesthesia 2. Wide local excision of the vulva Indication for Procedure: This is a 68 y.o. year old female presenting with new lesions concerning for high grade HAWA. Patient has a long history of HAWA and is status post prior local excisions. She was counseled on re-excision versus topical treatment, She desired definitive surgical management. She was counseled regardingrisks, benefits and alternatives and desired to proceed. Consents were signed. Operative Findings: Largest area of dysplasia along left perineal body, measuring approximately 1x2cm. Additional smallarea, <1cm, of acetowhite change noted just below the clitoris along the left. Finally, small area of dysplasia measuring ~1cm along left perianal region. Description of Procedure: After obtaining the appropriate operative consents, the patient was takento the operating room, where general anesthesia was obtained without difficulty and found to be adequate. She [facility] An exam under anesthesia was performed with findings as above. She was then prepped and draped in the normal sterile fashion. Attention was initially turned to the left perineal body lesion. The area for excision was marked with a 5mm margin. The area was injected with 0.5% Bupivicaine with epinephrine. The lesion was then excised using the Bovie. The lesion was handed off to pathology with tag marked at 12-o'clock. The area was closed with 2-0 Vicryl in an interrupted fashion. Next attention was turned to the left periclitoral lesion. This was elevated with pick-ups and the small area excised with Metzenbaum scissors. Hemostasis was assured with the Bovie. Finally, a punchbiopsy was taken of the left perianal region. Hemostasis confirmed and the visible area of dysplasia fulgurated with the Bovie. Incisions were covered with silvadene cream and procedure was completed. Hemostasis was adequate. Patient was stable on discharge from the OR. Complications: None Estimated Blood Loss: Minimal Intraoperative Fluids: 700 mL Urine Output: 100 mL clear urine Sponge/Instrument/Needle Counts: The sponge, lap and needle counts were correct x2. Specimens Removed: ID Type Source Tests Collected by Time Destination A : Left Perineal Biopsy (Stitch @ 12 o'clock) Tissue Vulva / Labia Biopsy SURGICAL PATHOLOGY Leandra Medina MD 04/08/2019 1305 B : Left Alen Clitoral Lesion Tissue Vulva / Labia Biopsy SURGICAL PATHOLOGY Leandra Medina MD 04/08/2019 1311 C : Left Alen-Anal Lesion Tissue Anal Biopsy SURGICAL PATHOLOGY Leandra Medina MD 04/08/20191312 The attending, Dr. Sinan Schmidt MD, was present for the entire procedure. Maria Isabel Horan MD 04/08/2019 Cosigned by Sinan Schmidt MD at 04/08/2019 7:38 PM CALENDER LET OFF OPERATOR NDER LET OFF OPERATOR NDER LET OFF OPERATOR NDER LET OFF OPERATOR Associated attestation - Sinan Schmidt MD - 04/08/2019 7:38 PM CALENDER LET OFF OPERATOR I was present for the entire procedure. * Perioperative Nursing Note - Radha Milian RN - 04/08/2019 12:10 PM CALENDER LET OFF OPERATOR VENEER TAPING MACHINE OFFBEARER and MULTI OPERATION FORMING MACHINE SETTER made aware that patient's nicotine patch is on RUE. NDER LET OFF OPERATOR documented in this encounter Plan of Treatment Not on file documented as of this encounter Procedures Procedure Name Priority Date/Time Associated Diagnosis Comments SURGICAL PATHOLOGY Routine 04/08/2019 1: 05 PM CALENDER LET OFF OPERATOR HAWA III (vulvar intraepithelial neoplasia III) WIDE LOCAL EXCISION - VULVA 04/08/2019 12:32 PM CALENDER LET OFF OPERATOR HAWA III (vulvar intraepithelial neoplasia III) EXAM UNDER ANESTHESIA 04/08/2019 12:32 PM CALENDER LET OFF OPERATOR HAWA III (vulvar intraepithelial neoplasia III) POCT GLUCOSE DEVICE Routine 04/08/2019 11:26 AM CALENDER LET OFF OPERATOR documented in this encounter Results * Surgical pathology (04/08/2019 1:05 PM CALENDER LET OFF OPERATOR) Tissue (Vulva / Labia Biopsy) 04/08/2019 1:05 PM CALENDER LET OFF OPERATOR Tissue (Vulva / Labia Biopsy) 04/08/2019 1:11 PM CALENDER LET OFF OPERATOR Tissue (Anal Biopsy) 04/08/2019 1:12 PM CALENDER LET OFF OPERATOR Narrative PATHOLOGY [facility] - 04/11/2019 6:52 PM CALENDER LET OFF OPERATOR EPIC results best viewed via link to PDF [facility] [place] [address] SURGICAL PATHOLOGY REPORT FINAL Patient Name: ?? DARRION GUILLORY Gender: ??F : ??1950 (Age: 68) Address: ??[address] [place] [address] ??[id number] [facility] #: ??[id number] Taken:04/08/2019 Received:04/08/2019 Reported: 04/11/2019 Patient Type: [facility] SDS ?? Service: Obstetrics [facility] Location: [facility] Physician(s): ??Abbey Lee D.O. Diagnosis: A. Vulva and perineum, left, wide local excision: ? - High-grade squamous intraepithelial lesion (HSIL, HAWA-3, severe dysplasia) - Resection margin with no evidence of intraepithelial lesion or dysplasia B. Vulva, left alen-clitoral lesion, biopsy ? - High-grade squamous intraepithelial lesion (HSIL, HAWA-3, severe dysplasia) C. Anus, left perianal lesion, biopsy ? - High-grade squamous intraepithelial lesion (HSIL, AIN-3, severe dysplasia) /04/10/2019 11:57 By this signature, I attest that the above diagnosis is based upon my personal examination of the slides(and/or other material indicated in the diagnosis). Mari Núñez M.D., Ph.D. Report Electronically Reviewed and Signed Out By ??Mari Núñez M.D., Ph.D. 04/11/2019 18:52:06 Microscopic Description and Comment: Microscopic examination substantiates the above cited diagnosis. Carlton Bolaños MD History: The patient is a 68-year-old woman with HAWA III. ??Operative procedure: Wide local excision vulva and perineum. Specimen(s) Received: A: Left perineal B: Left alen clitoral lesion C: Left alen-anal lesion Gross Description: Received in formalin labeled with the patient's name and left perineal biopsy (stitch at 12 o'clock) is a 1.3 x 1.0 x 0.7 cm piece of pink-pickard tissue covered on one side by skin. ??There is a suture indicating 12 o'clock. ??The 12-3- 6 o'clock side is inked blue and the 6-9- 12 o'clock side is inked black. ??Submitted entirely and sequentially from 6 o'clock to 12 o'clock including tips labeled A1 to A3. ??Jar 0. Received in formalin labeled with the patient's name and left periclitoral lesion is a 0.4 cm piece of pale-pickard tissue. ??Labeled B1. ??Jar 0. Received in formalin labeled with the patient's name and left perianal lesion is a piece of cole-pickard tissue measuring 0.3 cm in greatest dimension. ??Labeled C1. ??Jar 0. [facility]/04/09/2019 13:18 PA(s): Leandra Martinez, , PA (ASC) By this signature, I attest that the above diagnosis is based upon my personal examination of the slides(and/or other material). The performance characteristics of some immunohistochemical stains, fluorescence in-situ hybridization tests and immunophenotyping by flow cytometry cited in this report (if any) were determined by the Surgical Pathology Department at [facility] as part of an ongoing quality officer program and in compliance with federally mandated [...] determined by the Surgical Pathology Department of [facility]. ??It has not been cleared or approved by the U. S. Food and Drug Administration. IMAGES AND SCANNED DOCUMENTS, IF INCLUDED, ONLY VIEWABLE IN PDF VERSION OF REPORT us Sinan Schmidt MD LAB PATHOLOGY ORDERABLES Final Result PATHOLOGY [facility] 3rd Floor [place], [place] [phone] * POCT glucose (04/08/2019 11:26 AM CALENDER LET OFF OPERATOR) Glucose, POC 98 70 - 199 mg/dL [facility] Blood specimen (specimen) 04/08/2019 11:26 AM CALENDER LET OFF OPERATOR 04/08/2019 11:26 AM CALENDER LET OFF OPERATOR us Sinan Schmidt MD LAB POCT ORDERABLES - DE VICE Final Result [facility] Department [place] [address] documented in this encounter Visit Diagnoses Diagnosis HAWA III (vulvar intraepithelial neoplasia III)- Primary Carcinoma in situ, 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, vulva documented in this encounter Admitting Diagnoses Diagnosis 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, vulva documented in this encounter Administered Medications Inactive Administered Medications - up to 3 most recent administrations Medication Order MAR Action Action Date Dose Rate Site acetaminophen (TYLENOL) tablet 1,000 mg 1,000 mg, oral, Once, On Sun04/08/19 at 1145, For 1 dose, Pre-Op, Indications: Pre-Emptive AnalgesiaIndications:Pre -Emptive Analgesia Given 04/08/2019 11:29 AM CALENDER LET OFF OPERATOR 1,000 mg gabapentin (NEURONTIN) capsule 300 mg 300 mg, oral, Once, On Sun04/08/19 at 1145, For 1 dose, Pre-Op, Administer 1 hour prior to induction., Indications: PainIndications:Pain Given 04/08/2019 11:30 AM CALENDER LET OFF OPERATOR 300 mg Lactated Ringer's (LR) infusion 30 mL/hr, intravenous, Continuous, Starting on Sun04/08/19 at 1145, Pre-Op Rate/Dose Change 04/08/2019 12:31 PM CALENDER LET OFF OPERATOR 150 mL/hr New Bag 04/08/2019 11:29 AM CALENDER LET OFF OPERATOR 30 mL/hr 30 mL/hr ondansetron (ZOFRAN) injection 4 mg 4 mg, intravenous, Administer over 2 Minutes, Once, On e 04/08/19 at 1145, For 1 dose, Pre-Op, Indications: Prevention of Post-Operative Nausea and VomitingIndications:Prevention of Post-Operative Nausea and Vomiting Given 04/08/2019 11:32 AM CALENDER LET OFF OPERATOR 4 mg sodium chloride 0.9% flush 0.5-20 mL 0.5-20 mL, intra-catheter, As needed, line care, Starting on Sun04/08/19 at 1109, Pre-Op, Flush volume based on line type and size. Flush before and after each use.Indications:HAWA III (vulvar intraepithelial neoplasia III) documented in this encounter Active and Recently Administered Medications Times are shown in CALENDER LET OFF OPERATOR. Scheduled Medication Order 04/06/2019 04/07/2019 04/08/2019 acetaminophen (TYLENOL) tablet 1,000 mg (COMPLETED) 1,000 mg, oral, Once, On Sun04/08/19 at 1145, For 1 dose, Pre-Op, Indications: Pre-Emptive Analgesia 1129 (Given - Provid er: Radha Milian, DIGNA) acetaminophen (TYLENOL) tablet 975 mg 975 mg (rounded from 1,000 mg), oral, Once, On Sun04/08/19 at 1145, For 1 dose, Pre-Op, Administer 1 hour prior to induction., Indications: Pain 1145 (Due) gabapentin (NEURONTIN) capsule 300 mg 300 mg, oral, Once, On Sun04/08/19 at 1145, For 1 dose, Pre-Op, Indications: Pre-Emptive Analgesia 1145 (Due) gabapentin (NEURONTIN) capsule 300 mg (COMPLETED) 300 mg, oral, Once, On Sun04/08/19 at 1145, For 1 dose, Pre-Op, Administer 1 hour prior to induction., Indications: Pain 1130 (Given - Provid er: Radha Milian, RN) ondansetron (ZOFRAN) injection 4 mg (COMPLETED) 4 mg, intravenous, Administer over 2 Minutes, Once, On Sun04/08/19 at 1145, For 1 dose, Pre-Op, Indications: Prevention of Post-Operative Nausea and Vomiting 1132 (Given - Provid er: Radha Milian, RN) Continuous Medication Order 04/06/2019 04/07/2019 04/08/2019 Lactated Ringer's (LR) infusion 30 mL/hr, intravenous, Continuous, Starting on Sun04/08/19 at 1145, Pre-Op 1145 (Due)1415 (Due) Lactated Ringer's (LR) infusion 30 mL/hr, intravenous, Continuous, Starting on Sun04/08/19 at 1145, Pre-Op 1129 (New Bag - Prov ider: Radha Milian RN)1231 (Rate/Dose Change - Provider: Gabriele Amador CRNA)1312 (Stopped - Provider: Gabriele Amador CRNA) PRN Medication Order 04/06/2019 04/07/2019 04/08/2019 bupivacaine-EPINEPHrine (MARCAINE with EPI) 0.5 %-1:200,000 preservative free injection (CANCELED) As needed, Starting on Sun04/08/19 at 1326, Intra-Op 1326 (Given - Provid er: Leandra Medina MD - Comment: Injected into operative site of vulva.) fentaNYL (SUBLIMAZE) preservative free injection 50 mcg 50 mcg, intravenous, Once as needed, uncontrolled pain on PACU admission, Starting on Sun04/08/19 at 1332, For 1 dose, Phase I, Then proceed to PACU 1st line analgesic., Indications: Pain HYDROmorphone (DILAUDID) injection 0.2 mg 0.2 mg, intravenous, Administer over 2 Minutes, Every 10 min PRN, 1st line for pain, Starting on Sun04/08/19 at 1332, Phase I, Switch to 2nd line analgesic order if pain is uncontrolled or increasing after 2 doses. Notify Anesthesiologist if total PACU dose reaches 2 mg and pain score 5/10 or more., Indications: Pain HYDROmorphone (DILAUDID) injection 0.4 mg 0.4 mg, intravenous, Administer over 2 Minutes, Every 10 min PRN, 2nd line for pain, Starting on Sun04/08/19 at 1332, Phase I, May administer 10 mintes after 2nd dose of 1st line analgesic agent for uncontrolled or increasing pain. Revert to 1st line dose if POSS of 3. Notify Anesthesiologist if total PACU dose reaches 2 mg and pain score 5/10 or more., Indications: Pain lidocaine PF (XYLOCAINE) 10 mg/mL (1 %) preservative free injection 2-10 mg 2-10 mg (0.2-1 mL), other, Once as needed, pain with IV placement, Starting on Sun04/08/19 at 1109, For 1 dose, Pre-Op, Administer volume needed to infiltrate IV site. ondansetron (ZOFRAN) injection 4 mg 4 mg, intravenous, Administer over 2 Minutes, Once as needed, nausea, vomiting, Starting on Sun04/08/19 at 1332, For 1 dose, Phase I, Switch to prochlorperazine if no relief within 30 minutes. , Indications: Nausea and Vomiting prochlorperazine (COMPAZINE) injection 10 mg 10 mg, intravenous, Once as needed, nausea, vomiting, Starting on Sun04/08/19 at 1332, For 1 dose, Phase I, If not relieved by ondansetron within 30 minutes., Indications: Nausea and Vomiting sodium chloride 0.9 % irrigation (CANCELED) As needed, Starting on Sun04/08/19 at 1327, Intra-Op 1327 (Given - Provid er: Leandra Medina MD) sodium chloride 0.9% flush 0.5-20 mL 0.5-20 mL, intra-catheter, As needed, line care, Starting on Sun04/08/19 at 1109, Pre-Op, Flush volume based on line type and size. Flush before and after each use. , Indications: Flushing sodium chloride 0.9% flush 0.5-20 mL 0.5-20 mL, intra-catheter, As needed, line care, Starting on Sun04/08/19 at 1109, Pre-Op, Flush volume based on line type and size. Flush before and after each use. documented in this encounter Orders Medications Ordered That Rubén ht Not Have Been Administered Count Last Ordered Date First Ordered Date acetaminophen (TYLENOL) tablet 975 mg 1 bupivacaine-EPINEPHrine (MAR HARDY with EPI) 0.5 %-1:200,000 preservative free injection 1 04/08/2019 fentaNYL (SUBLIMAZE) preserv ative free injection 50 mcg 1 04/08/2019 gabapentin (NEURONTIN) capsule 300 mg 1 HYDROmorphone (DILAUDID) injection 0.2 mg 1 04/08/2019 HYDROmorphone (DILAUDID) injection 0.4 mg 1 04/08/2019 Lactated Ringer's (LR) infusion 1 9 lidocaine PF (XYLOCAINE) 10 mg/mL (1 %) preservative free injection 2-10 mg 1 04/08/2019 ondansetron (ZOFRAN) injection 4 mg 1 04/08 prochlorperazine (COMPAZINE) injection 10 mg 1 04/08/2019 sodium chloride 0.9 % irrigation 1 04/08/20 19 sodium chloride 0.9% flush 0.5-20 mL 2 03/23 documented in this encounter Care Teams Spring Former Machine Relationship Specialty Start Date End Date Terry Bender DO PCP - General Internal Medicine 01/03/18 05/14/22 Wilmer Taylor MD [address] [facility] [address] [place] [address] Referring Physician Obstetrics and Gynecology 05/09/12 documented as of this encounter
--- OUTSIDE RECORDS SUMMARY | 2024-05-03 02:53 | XMS_ITS | Encounter Summary ---
Author Organization [facility] Healthcare Address [address] [place] [address] Care Team Providers Care Registered Nurse Obstetrics Name Role Phone Wilmer Taylor MD Unavailable [phone] Encounter Details Date Type Department Care Team (Latest Contact Info) Description 07/13/2014 4:20 PM CDT Hospital Encounter 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 Gender Identity Not on file Sexual Orientation Not on file documented as of this encounter Plan of Treatment Not on file documented as of this encounter Procedures Procedure Name Priority Date/Time Associated Diagnosis Comments SCAN - LABS 07/14/2014 12:00 AM CDT XR HAND RIGHT 3 OR MORE VIEWS Routine 07/13/2014 4:40 PM CDT XR HAND LEFT 3 OR MORE VIEWS Routine 07/13/2014 4:40 PM CDT XR WRIST RIGHT 3 OR MORE VIEWS Routine 07/13/2014 4:40 PM CDT XR WRIST LEFT 3 OR MORE VIEWS Routine 07/13/2014 4:40 PM CDT ERYTHROCYTE SEDIMENTATION RATE Routine 07/13/2014 4:35 PM CDT RHEUMATOID FACTOR Routine 07/13/2014 4:3 5 PM CDT PROTEIN ELECTROPHORESIS, WITH REFLEX, SERUM Routine 07/13/2014 4:35 PM CDT CYCLIC CITRUL PEPTIDE ANTIBODY, IGG Routine 07/13/2014 4:34 PM CDT documented in this encounter Results * SCAN - LABS (07/14/2014 12:00 AM CDT) Narrative 07/14/2014 12:00 AM CDT Ordered by an unspecified provider. us Historical Provider MD Final Res ult * XR Hand Left 3 or More Views (07/13/2014 4:40 PM CDT) Anatomical Region Laterality Modality Upper Extremities, Hand Left Radiogra [facility] Imaging 07/13/2014 4:40 PM CDT Impressions 07/14/2014 5:52 AM CDT ??Moderate to severe arthritic change of the left hand and wrist. ?? No acute findings. THIS IS AN ELECTRONICALLY VERIFIED REPORT 07/14/2014 5:49 AM: ??Dakota Grey M.D. Dakota Grey M.D. RN:rn 05:49 AM 05:49 AM NOR [EOD] Narrative 07/14/2014 5:52 AM CDT THE LEFT HAND AND WRIST HISTORY: ??Pain and arthritis. FINDINGS: ??PA, lateral and oblique views of the left hand and wrist were obtained. ??There is no prior exam. As with the right hand and wrist study also performed on today's date, there is arthritic change, most pronounced in the IP joints and first carpometacarpal joints. ??There is particular arthritic change at the second and third PIP joints and first CMC joint. ??There is no acute or healing fracture or destructive neoplasm. Procedure Note Provider, MD Mesha - 09/07/2020 THE LEFT HAND AND WRIST HISTORY: Pain and arthritis. FINDINGS: PA, lateral and oblique views of the left hand and wrist were obtained. There is no prior exam. As with the right hand and wrist study also performed on today's date,there is arthritic change, most pronounced in the IP joints and first carpometacarpal joints. There is particular arthritic change at thesecond and third PIP joints and first CMC joint. There is no acute or healing fracture or destructive neoplasm. IMPRESSION: Moderate to severe arthritic change of the left hand andwrist. No acute findings. THIS IS AN ELECTRONICALLY VERIFIED REPORT 07/14/2014 5:49 AM: Dakota Grey M.D. Dakota Grey M.D. RN:efra 05:49 AM 05:49 AM NOR [EOD] us Eh Silveira MD IMG XR PROCEDURES Final Result * XR Wrist Left 3 or More Views (07/13/2014 4:40 PM CDT) Anatomical Region Laterality Modality Upper Extremities, Wrist Left Radiogr aphic Imaging 07/13/2014 4:40 PM CDT Impressions 07/14/2014 5:53 AM CDT ??Moderate to severe arthritic change of the left hand and wrist. ?? No acute findings. THIS IS AN ELECTRONICALLY VERIFIED REPORT 07/14/2014 5:50 AM: ??Dakota Que, M.D. Dakota rGey M.D. RN:rn 05:50 AM 05:50 AM NOR [EOD] Narrative 07/14/2014 5:53 AM CDT LEFT HAND AND WRIST HISTORY: ??Pain and arthritis. FINDINGS: ??PA, lateral and oblique views of the left hand and wrist were obtained. ??There is no prior exam. As with the right hand and wrist study also performed on today's date, there is arthritic change, most pronounced in the IP joints and first carpometacarpal joints. ??There is particular arthritic change at the second and third PIP joints and first CMC joint. ??There is no acute or healing fracture or destructive neoplasm. Procedure Note Provider, MD Mesha - 09/07/2020 LEFT HAND AND WRIST HISTORY: Pain and arthritis. FINDINGS: PA, lateral and oblique views of the left hand and wrist were obtained. There is no prior exam. As with the right hand and wrist study also performed on today's date,there is arthritic change, most pronounced in the IP joints and first carpometacarpal joints. There is particular arthritic change at thesecond and third PIP joints and first CMC joint. There is no acute or healing fracture or destructive neoplasm. IMPRESSION: Moderate to severe arthritic change of the left hand andwrist. No acute findings. THIS IS AN ELECTRONICALLY VERIFIED REPORT 07/14/2014 5:50 AM: Dakota Grey M.D. Dakota Grey M.D. RN:rn 05:50 AM 05:50 AM NOR [EOD] Eh Silveira MD IMG XR PROCEDURES Final Result * XR Wrist Right 3 or More Views (07/13/2014 4:40 PM CDT) Anatomical Region Laterality Modality Upper Extremities, Wrist Right Radiogr aphic Imaging 07/13/2014 4:40 PM CDT Impressions 07/14/2014 5:00 AM CDT ??Moderate predominantly degenerative arthritic change of the right hand and wrist. ??No acute or healing fractures or destructive lesions.. THIS IS AN ELECTRONICALLY VERIFIED REPORT 07/14/2014 4:56 AM: ??Dakota Grey M.D. Dakota Grey M.D. RN:rn 04:56 AM T: :56 AM NOR [EOD] Narrative 07/14/2014 5:00 AM CDT THE RIGHT HAND AND WRIST HISTORY: ??Pain. FINDINGS: ??PA, lateral and oblique views of right hand and wrist were obtained. ??There is no prior study. There is moderate arthritic change, most pronounced in the IP and first carpometacarpal joints. ??There is no acute or healing fracture or destructive neoplasm. Procedure Note Provider, MD Mesha - 09/07/2020 THE RIGHT HAND AND WRIST HISTORY: Pain. FINDINGS: PA, lateral and oblique views of right hand and wrist were obtained. There is no prior study. There is moderate arthritic change, most pronounced in the IP and first carpometacarpal joints. There is no acute or healing fracture ordestructive neoplasm. IMPRESSION: Moderate predominantly degenerative arthritic change of theright hand and wrist. No acute or healing fractures or destructive lesions.. THIS IS AN ELECTRONICALLY VERIFIED REPORT 07/14/2014 4:56 AM: Dakota Grey M.D. Dakota Grey M.D. RN:rn 04:56 AM 04:56 AM NOR [EOD] us Edward P. Jordana MD IMG XR PROCEDURES Final Result * XR Hand Right 3 or More Views (07/13/2014 4:40 PM CDT) Anatomical Region Laterality Modality Upper Extremities, Hand Right Radiogra phic Imaging 07/13/2014 4:40 PM CDT Impressions 07/14/2014 5:01 AM CDT ??Moderate predominantly degenerative arthritic change of the right hand and wrist. ??No acute or healing fractures or destructive lesions.. THIS IS AN ELECTRONICALLY VERIFIED REPORT 07/14/2014 4:58 AM: ??Dakota Grey M.D. Dakota Grey M.D. RN:rn 04:58 AM 04:58 AM NOR [EOD] Narrative 07/14/2014 5:01 AM CDT THE RIGHT HAND AND WRIST HISTORY: ??Pain. FINDINGS: ??PA, lateral and oblique views of right hand and wrist were obtained. ??There is no prior study. There is moderate arthritic change, most pronounced in the IP and first carpometacarpal joints. ??There is no acute or healing fracture or destructive neoplasm. Procedure Note Provider, MD Mesha - 09/07/2020 THE RIGHT HAND AND WRIST HISTORY: Pain. FINDINGS: PA, lateral and oblique views of right hand and wrist were obtained. There is no prior study. There is moderate arthritic change, most pronounced in the IP and first carpometacarpal joints. There is no acute or healing fracture ordestructive neoplasm. IMPRESSION: Moderate predominantly degenerative arthritic change of theright hand and wrist. No acute or healing fractures or destructive lesions.. THIS IS AN ELECTRONICALLY VERIFIED REPORT 07/14/2014 4:58 AM: Dakota Grey M.D. Dakota Grey M.D. RN:efra 04:58 AM 04:58 AM NOR [EOD] Eh Silveira MD IMG XR PROCEDURES Final Result * (ABNORMAL) Erythrocyte sedimentation rate (07/13/2014 4:35 PM CDT) ESR 83(H) 0 - 10 mm/hr 07/13/2014 4:35 PM CDT 07/13/2014 5:21 PM CDT Eh Silveira MD LAB BLOOD ORDERABLES Final Res ult Performing Organization Address [facility]/ZIP Co de Phone Number [facility] HISTORICAL RESULTS * Protein Electrophoresis, With Reflex, Serum (07/13/2014 4:35 PM CDT) Pathologist [facility] Total Protein 7.3 6.4 - 8.3 g/dL Prot Electrophoresis Comment: PATHOLOGIST COMMENT: ?? No paraproteins identified ?? Please see scanned result in the patient's EMR 07/13/2014 4:35 PM CDT 07/13/2014 5:21 PM CDT Eh Silveira MD LAB BLOOD ORDERABLES Final Res ult [facility] HISTORICAL RESULTS * (ABNORMAL) Rheumatoid factor (07/13/2014 4:35 PM CDT) Rheumatoid Factor 315.0(H) 0.0 - 13.9 IU/mL 07/13/2014 4:35 PM CDT 07/13/2014 5:21 PM CDT Eh Silveira MD LAB BLOOD ORDERABLES Final Res ult Performing Organization Address [facility]/ZIP Co de Phone Number [facility] HISTORICAL RESULTS * (ABNORMAL) Cyclic citrul peptide antibody, IgG (07/13/2014 4:34 PM CDT) Cycl Citrul Peptide IgG 189(H) 0 - 19 Units Comment: INTERPRETIVE INFORMATION: Cyclic Citrullinated Peptide ?? Antibody, IgG ?19 Units or less ................... Negative ?20-39 Units ........................ Weak Positive ?40-59 Units ........................ Moderate Positive ?60 Units or greater ................ Strong Positive ?? Anti-cyclic citrullinated peptide (anti-CCP), IgG ?? antibodies are present in about 69-83 percent of patients ?? with rheumatoid arthritis (RA) and have specificities of ?? 93-95 percent. These autoantibodies may be present in the ?? preclinical phase of disease, are associated with future RA ?? development, and may predict radiographic joint ?? destruction. Patients with weak positive results should be ?? monitored and testing repeated. ?? Performed by [employer], ?? [address] [place] [id number] ?? [email or web address], Shankar Tierney MD, Lab. Director ?? 07/13/2014 4:34 PM CDT 07/13/2014 5:21 PM CDT Eh Silveira MD LAB BLOOD ORDERABLES Final Res ult Performing Organization Address [facility]/ZIP Co de Phone Number [facility] HISTORICAL RESULTS documented in this encounter Visit Diagnoses Diagnosis Rheumatoid arthritis (HCC) Encounter for long-term (current) use of other medications documented in this encounter Care Teams Registered Nurse Obstetrics Relationship Specialty Start Date End Date Wilmer Taylor MD [address] [address] Referring Physician Obstetrics and Gynecology 05/09/12 documented as of this encounter
--- OUTSIDE RECORDS SUMMARY | 2024-05-03 02:53 | XMS_ITS | Encounter Summary ---
Author Organization [facility] Healthcare Address [address] [place] [address] Care Team Providers Care Seasoner Hand Name Role Phone Wilmer Finley MD Primary Care Provider [phone] Wilmer Taylor MD Unavailable [phone] Encounter Details Date Type Department Care Team (Latest Contact Info) Description 05/23/2017 12:07 PM GLOBAL UPSTREAM MARKETING MANAGER Hospital Encounter [facility] OP Eh Silveira MD [address] [facility] [address], [address] [address] Pain in right ankle; Effusion of right ankle; Calcaneal spur of right foot Social History Tobacco Use Types Packs/Day Years Used Date Smoking Tobacco: Never Assessed Comments Unknown Sex and Gender Information Value Date Recorded Sex Assigned at Not on file 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 Gender Identity Not on file Sexual Orientation Not on file documented as of this encounter Plan of Treatment Not on file documented as of this encounter Procedures Procedure Name Priority Date/Time Associated Diagnosis Comments XR ANKLE RIGHT 3 OR MORE VIEWS Routine 05/23/2017 12:09 PM GLOBAL UPSTREAM MARKETING MANAGER documented in this encounter Results * XR Ankle Right 3 or More Views (05/23/2017 12:09 PM GLOBAL UPSTREAM MARKETING MANAGER) Anatomical Region Laterality Modality Lower Extremities, Ankle Right Radiogr aphic Imaging 05/23/2017 12:0 9 PM GLOBAL UPSTREAM MARKETING MANAGER Impressions 05/23/2017 7:50 PM GLOBAL UPSTREAM MARKETING MANAGER ?? 1.No acute fracture. 05/23/2017 7:48 PM Galen Sainz MJ: MJ D: ??05/23/2017 7:48 PM T: ??05/23/2017 7:48 PM Report ID: [id number] Reading Location: ??[id number] [EOD] Narrative 05/23/2017 7:50 PM GLOBAL UPSTREAM MARKETING MANAGER EXAM DESCRIPTION: ??Ankle RT 3 View Min COMPLETED DATE/TIME: ??05/23/2017 12:29 pm REASON FOR STUDY: ??Lateral pain and swelling after twisting injury 04/25/2017. COMPARISON: ??None available. TECHNIQUE: ??AP, lateral, and oblique 3 radiographic images acquired of the right ankle. FINDINGS: BONES: No acute fracture or dislocation. No worrisome bone lesions. JOINT: Talar dome is smooth. ??Ankle mortise is intact. SOFT TISSUES: Enthesophyte Achilles tendon insertion. MINERALIZATION: Normal. OTHER: Moderate plantar calcaneal spur. Procedure Note Provider, MD Mesha - 09/07/2020 EXAM DESCRIPTION: Ankle RT 3 View Min COMPLETED DATE/TIME: 05/23/2017 12:29 pm REASON FOR STUDY: Lateral pain and swelling after twisting [id number]. COMPARISON: None available. TECHNIQUE: AP, lateral, and oblique 3 radiographic images acquired of the right ankle. FINDINGS: BONES: No acute fracture or dislocation. No worrisome bone lesions. JOINT: Talar dome is smooth. Ankle mortise is intact. SOFT TISSUES: Enthesophyte Achilles tendon insertion. MINERALIZATION: Normal. OTHER: Moderate plantar calcaneal spur. IMPRESSION: 1.No acute fracture. 05/23/2017 7:48 PM Galen Sainz MJ: ASHTYN Report ID: [id number] Reading Location: [id number] [EOD] Eh Silveira MD IMG XR PROCEDURES Final Result documented in this encounter Visit Diagnoses Diagnosis Pain in right ankle Effusion of right ankle Calcaneal spur of right foot documented in this encounter Care Teams Seasoner Hand Relationship Specialty Start Date End Date Wilmer Finley MD PCP - General 11/14/16 01/02/18 Wilmer Taylor MD [address] [address] Referring Physician Obstetrics and Gynecology 05/09/12 documented as of this encounter
--- OUTSIDE RECORDS SUMMARY | 2024-05-03 02:53 | XMS_ITS | Encounter Summary ---
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 Sinan Schmidt MD [address] [place] [address] Phone: tel:[phone] fax:[phone] [facility] (All Locations) Referral ID Status Reason Start Date Expiration Date V isits Requested Visits Authorized [id number] Closed Specialty Services Required 06/26/2019 01/04/2021 3 3 Question Answer Please select the performing region: [facility] (All Locations) [167] # of visits: 1 TOP PUBLISHER Reason for Visit * Reason Comments Follow-up * Consultation (Routine) - Closed Specialty Diagnoses / Procedures Referred By Contact Referred To Contact Gynecologic Oncology Diagnoses 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 Sinan Schmidt MD [address] [place] [address] Phone: tel:[phone] fax: [facility] (All Locations) Referral ID Status Reason Start Date Expiration Date V isits Requested Visits Authorized [id number] Closed Specialty Services Required 06/26/2019 01/04/2021 3 3 Encounter Details Date Type Department Care Team (Latest Contact Info) Description 06/30/2019 9:45 AM CDT Office Visit [facility] Gynecology/Oncology [address] [facility] Medical Office [address] [place] [id number] Sinan Schmidt MD [address] [place] [address] HAWA III (vulvar intraepithelial neoplasia III) (Primary [...] on file 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 Gender Identity Not on file Sexual Orientation Not on file documented as of this encounter Last Filed Vital Signs Vital Sign Reading Time Taken Comments Blood Pressure 124/76 06/30/2019 9:52 AM CDT Pulse 68 06/30/2019 9:52 AM CDT Temperature 36.1 ??C (97 ??F) 06/30/2019 9:52 AM CDT Respiratory Rate - - Oxygen Saturation 92% 06/30/2019 9:52 AM CDT Inhaled Oxygen Concentration - - Weight 62.9 kg (138 lb 11.2 oz) 06/30/2019 9:52 AM CDT Height - - Body Mass Index 24.57 04/21/2019 9:27 AM DESKTOP PUBLISHER documented in this encounter Progress Notes * Sinan Schmidt MD - 06/30/2019 9:45 AM CDT Gynecologic Oncology Return Visit Loida Guillory 1950 69 y.o. 06/30/2019 Visit Diagnosis 1. 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 She has had some discomfort withsitting, but hasn't noted any itching or bleeding. She has tried to look with a mirror but hasn't been able to see anything. She has a planned cataract removal later this week. She has been quite worried about this, worried that it's already come back. Cancer Staging No matching staging information was found for the patient. HAWA III (vulvar intraepithelial neoplasia III) 06/20/2012 [...] (HSIL, AIN-3, severe dysplasia) Review of Systems Systemic: Head: Eyes: Otolaryngeal: Cardiovascular: Pulmonary: Gastrointestinal: Genitourinary: Endocrine: Hematologic: Neurological: Psychological: Skin: Patient Active Problem List Diagnosis ??? Anal [...] Surgery - (Added by TW Conv) ??? MA BREAST SURGERY PROCEDURE UNLISTED Breast Surgery - [...] nicotine (NICODERM CQ) 21 mg ??? omega 5-hyq-lcq-fish oil (FISH OIL) 100-160-1,000 mg capsule ??? [...] Patient is postmenopausal. Objective Vitals Vitals BP 124/76 Pulse 68 Temp 36.1 ??C (97 ??F) Wt 62.9 kg (138 lb 11.2 oz) SpO2 92% BMI 24.57 kg/m?? Physical exam: General Appearance: well, in no acute distress. HEENT: within normal limits; sclerae non icteric. Cervical/supraclavicular Area: without adenopathy. Chest: clear to auscultation. Heart: regular rate & rhythm. Back: no CVA or paraspinal tenderness. Abdomen: soft, non-tender, without palpable masses, hernias, or enlarged liver or spleen; no fluid wave. Well healed scar(s) without herniation. Vulvar/perianal exam: Well-healed scar with hypopigmented areas around old scar, but no areas of concern for dysplasia. Skin: without rashes. Lower extremities: without edema or calf tenderness. Performance Score: 0 Assessment/Plan 1. Recurrent HAWA/AIN. -Overall scar is stable with no evidence of disease. -RTC 3 months for continued surveillance. -Advised to call earlier with symptoms, especially itching. 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 Expected: 07/10/2019 (Approximate), Expires: 06/25/2020 documented as of this encounter Visit Diagnoses Diagnosis 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
--- OUTSIDE RECORDS SUMMARY | 2024-05-03 02:53 | XMS_ITS | Encounter Summary ---
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
--- OUTSIDE RECORDS SUMMARY | 2024-05-03 02:53 | XMS_ITS | Encounter Summary ---
Author Organization [facility] Facility Care Team Providers Care Bag Hanger Name Role Phone Wilmer Taylor MD Unavailable [phone] Encounter Details Date Type Department Care Team (Late st Contact Info) Description 09/19/2012 - 09/19/2012 11:59 PM CDT Hospital Encounter [facility] Gabriele Cuellar MD 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
--- OUTSIDE RECORDS SUMMARY | 2024-05-03 02:53 | XMS_ITS | Encounter Summary ---
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 Sinan Schmidt MD [address] [place] [address] Phone: tel:[phone] fax:[phone] [facility] (All Locations) Referral ID Status Reason Start Date Expiration Date V isits Requested Visits Authorized [id number] Closed Specialty Services Required 06/26/2019 01/04/2021 3 3 Encounter Details Date Type Department Care Team (Latest Contact Info) Description 09/29/2019 10:30 AM CDT Office Visit [facility] Gynecology/Oncology [address] [facility] [address] [place] [id number] Sinan Schmidt MD [address] [place] [address] HAWA III (vulvar intraepithelial neoplasia III) (Primary [...] on file Legal 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 Gender Identity Not on file Sexual Orientation Not on file documented as of this encounter Last Filed Vital Signs Vital Sign Reading Time Taken Comments Blood Pressure 122/80 09/29/2019 10:07 AM CDT Pulse 75 09/29/2019 10:07 AM CDT Temperature 36.6 ??C (97.8 ??F) 09/29/2019 10:07 AM C DT Respiratory Rate - - Oxygen Saturation 97% 09/29/2019 10:07 AM CDT Inhaled Oxygen Concentration - - Weight 59.4 kg (131 lb) 09/29/2019 10:07 AM CDT Height 160 cm (5' 3 ) 09/29/2019 10:07 AM CDT Body Mass Index 23.21 09/29/2019 10:07 AM CDT documented in this encounter Progress Notes * Sinan Schmidt MD - 09/29/2019 10:30 AM CDT Gynecologic Oncology Return Visit Loida Guillory 1950 69 y.o. 09/29/2019 Visit Diagnosis 1. HAWA III (vulvar intraepithelial neoplasia III) Subjective Loida Guillory returns today for follow up for recurrent HAWA/AIN. She has been feeling well, and reports no itching. She is still not smoking any more. She admits she is using the nicotine patch at 21 mg, which she really needs in order not to smoke. She wishes she could stop this. Overall, she is feeling very well. Cancer Staging No matching staging information was [...] AIN-3, severe dysplasia) Review of Systems Systemic: Pain: None, Fatigue: [...] Surgery - (Added by TW Conv) ??? [place] BREAST SURGERY PROCEDURE UNLISTED Breast Surgery - [...] nicotine (NICODERM CQ) 21 mg ??? omega 1-aqe-wrl-fish oil (FISH OIL) 100-160-1,000 mg capsule ??? [...] Patient is postmenopausal. Objective Vitals Vitals BP 122/80 Pulse 75 Temp 36.6 ??C (97.8 ??F) Ht 160 cm (5' 3 ) Wt 59.4 kg (131 lb) SpO2 97% BMI 23.21 kg/m?? Physical exam: General Appearance: well, in [...] Area: without adenopathy. BUS/External: without lesions. No lesions at all at previous incision sites and no new areas of dysplasia. Urethra/Urethral Meatus: without masses or tenderness. Bladder: non-tender. Vagina: without lesions or abnormal discharge. Bimanual: no adnexal masses, tenderness, or nodularity. Rectovaginal: confirms above; rectovaginal septum & parametria clear, posterior cul de sac smooth Skin: without rashes. Lower extremities: without edema or calf tenderness. 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 -Will follow up again in 6 months. 2. Smoking cessation. -Congratulated again on her cessation. -She will continue nicotine patch; may try to go down to 17 mg. 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
--- OUTSIDE RECORDS SUMMARY | 2024-05-03 02:53 | XMS_ITS | Encounter Summary ---
Author Organization 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
--- OUTSIDE RECORDS SUMMARY | 2024-05-03 02:53 | XMS_ITS | Encounter Summary ---
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
--- OUTSIDE RECORDS SUMMARY | 2024-05-03 02:53 | XMS_ITS | Encounter Summary ---
Author Organization [facility] Address [address] [facility] [address] [place] [address] Phone Care Team Providers Care Deicer Repairer Pneumatic Name Role Phone Terry Bender Primary Care Provider [phone] Wilmer Taylor MD Unavailable [phone] Encounter Details Date Type Department Care Team (Late st Contact Info) Description 02/11/2019 Telephone [facility] Obstetrics and Gynecology [address] [facility] [address] [place] [address] [place] [address] Agnieszka Rossi Social History Tobacco Use Types Packs/Day Years Used Date Smoking Tobacco: Never Smokeless Tobacco: Never Alcohol Use Standard Drinks/Week [...] on file 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 * Telephone Encounter - Agnieszka Rossi - 02/11/2019 11:07 AM CDT Pt's daughter would like to know if it would be medically safe for her mother to wait until March or April (preferably April) to have surgery. Would that be okay to wait? documented in this encounter Plan of Treatment Not on file documented as of this encounter Visit Diagnoses Not on filedocumented in this encounter Care Teams Deicer Repairer Pneumatic Relationship Specialty Start Date End Date Terry Bender DO PCP - General Internal Medicine 01/03/18 05/14/22 Wilmer Taylor MD [address] [place] [address] [place] [address] Referring Physician Obstetrics and Gynecology 05/09/12 documented as of this encounter
--- OUTSIDE RECORDS SUMMARY | 2024-05-03 02:53 | XMS_ITS | Encounter Summary ---
Author Organization [facility] Facility Care Team Providers Care Avid Editor Name Role Phone Wilmer Taylor MD Unavailable [phone] Encounter Details Date Type Department Care Team (Late st Contact Info) Description 02/26/2013 3:04 PM SUMMER SCHOOL COORDINATOR - 02/26/2013 4:00 PM SUMMER SCHOOL COORDINATOR Hospital Encounter [facility] Sinan Mae MD [address] [place] [address] Pre-procedural laboratory examination; Severe dysplasia of vagina; Essential hypertension; Other specified chronic obstructive airways disease; Osteoarthrosis, hand; Tobacco use disorder; Hearing loss; Unspecified visual loss; Family history of stroke (cerebrovascular); Encounter for long-term (current) use of aspirin; Encounter for long-term (current) use of other medications Social History Tobacco Use Types Packs/Day Years Used Date Smoking Tobacco: Never Assessed Comments Unknown Sex and Gender Information Value Date Recorded Sex Assigned at Not on file Legal Sex Female 10:10 AM SUMMER SCHOOL COORDINATOR Gender Identity Not on file Sexual Orientation Not on file documented as of this encounter Plan of Treatment Not on file documented as of this encounter Procedures Procedure Name Priority Date/Time Associated Diagnosis Comments PLASMA BASIC METABOLIC PANEL Routine 02/26/2013 5:28 PM SUMMER SCHOOL COORDINATOR BLOOD CELL COUNT Routine 02/26/2013 5:28 PM SUMMER SCHOOL COORDINATOR BLOOD ABO, RH, INDIRECT AB SCREEN Routine 02/26/2013 5:28 PM SUMMER SCHOOL COORDINATOR DISCHARGE LABORATORY CUMULATIVE REPORT Routine 02/26/2013 12:00 AM SUMMER SCHOOL COORDINATOR documented in this encounter Results * (ABNORMAL) Plasma basic metabolic panel (02/26/2013 5:28 PM SUMMER SCHOOL COORDINATOR) Sodium 143 135 - 145 mmol/L HISTORICAL RESULTS K, pl 5.1(H) 3.3 - 4.9 mmol/L HISTORICAL RESULTS Comment: Hemolyzed; (+++); potassium value may be falsely elevated by as much as 0.6 - 1.0 mmol/L. Suggest redraw and reanalysis. Chloride 105 97 - 110 mmol/L HISTORICAL RESULTS CO2 27 22 - 32 mmol/L HISTORICAL RESULTS A. gap 11 0 - 16 mmol/L HISTORICAL RESULTS Glucose 80 70 - 199 mg/dl HISTORICAL RESULTS BUN 22 8 - 25 mg/dl HISTORICAL RESULTS Creatinine 0.89 0.60 - 1.10 mg/dl HISTORICAL RESULTS Calcium 10.8(H) 8.6 - 10.3 mg/dl HISTORICAL RESULTS Plasma 02/26/2013 5:28 PM SUMMER SCHOOL COORDINATOR us Thea Samayoa NP LAB BLOOD ORDERABL ES Final Result HISTORICAL RESULTS * Blood ABO, Rh, indirect ab screen (02/26/2013 5:28 PM SUMMER SCHOOL COORDINATOR) Shawna, indirect Negative HISTORICAL RESULTS ABO, Rho(D) O Positive HISTORI ANDREZ RESULTS Blood specimen (specimen) 02/26/2013 5:28 PM SUMMER SCHOOL COORDINATOR us Historical Provider LAB BLOOD ORDERABLES Lupe l Result HISTORICAL RESULTS * (ABNORMAL) Blood cell count [CBC] express (02/26/2013 5:28 PM SUMMER SCHOOL COORDINATOR) WBC 9.8 3.8 - 9.8 K/cumm HISTORICAL RESULTS RBC 4.44 3.90 - 5.00 M/cumm HISTORICAL RESULTS Hgb 13.7 12.1 - 15.1 g/dl HISTORICAL RESULTS Hct 41.9 36.1 - 44.3 % HISTORICAL RESULTS MCV 94.4 80.0 - 97.6 fl HISTORICAL RESULTS MCH 30.8 26.7 - 33.7 pg HISTORICAL RESULTS MCHC 32.6(L) 32.7 - 35.5 g/dl HISTORICAL RESULTS Rdw 13.8 11.8 - 14.6 % HISTORICAL RESULTS Platelets 259 140 - 440 K/cumm HISTORICAL RESULTS MPV 9.0 6.8 - 10.4 fl HISTORICAL RESULTS Blood specimen (specimen) 02/26/2013 5:28 PM SUMMER SCHOOL COORDINATOR us Thea Samayoa CLAM BED LABORER LAB BLOOD ORDERABL ES Final Result HISTORICAL RESULTS * Discharge Laboratory Cumulative Report (02/26/2013 12:00 AM SUMMER SCHOOL COORDINATOR) 02/26/2013 Narrative HISTORICAL RESULTS - 02/27/2013 3:19 AM SUMMER SCHOOL COORDINATOR ?[facility] ?Department of Laboratories ? One [facility] [place] ? [place], [place] [address] Patient Name: ??LOIDA CAAL [facility] Rec Number: [id number] Fin Number: ?[id number] Date: ?1950 Sex/Age: ? Female 62 years Admit Date: ?02/26/2013 Discharge Date: 02/26/2013 Doctor: ?Hagemann , Sinan R Facility: ?[facility] Location: ?CPAP Chart Printed: 02/27/2013 03:19 ?? * Abnormal ?? C Critical ?? f Footnote ?? ^ Corrected ?? L Low ?? H High ? i Interp Data ?? @ Reference Lab ? Chart Type:Periodic ? SELECTED ELECTROLYTES ?Test: Sodium ? Plasma Potassium ??Chloride ? Reference: [135-145] ??[3.3-4.9] ? [97-110] ? Units: mmol/L ? mmol/L ?mmol/L 02/26/2013 ?? 17:28:00 ?? 143 ?5.1 ??Hf ? 105 02/26/2013 17:28:00 ??Plasma Potassium: Hemolyzed; (+++); potassium value may be falsely elevated by as much as 0.6 - 1.0 mmol/L. Suggest redraw and reanalysis. ?Test: Total CO2 ??Anion Gap ? Reference: [22-32] ?[0-16] ? Units: mmol/L ? mmol/L 02/26/2013 ?? 17:28:00 ?? 27 ? 11 ? STANDARD BLOOD CHEMISTRY ?Test: BUN ? Creatinine ?? Glucose ?? Total Calcium ? Reference: [8-25] ??[0.60-1.10] ??[70-199] ??[8.6-10.3] ? Units: mg/dL ?? mg/dL ?mg/dL ? mg/dL 02/26/2013 ?? 17:28:00 ?? 22 ?0.89 ? 80 ?10.8 ??H ? TRANSFUSION MEDICINE ?Test: Indirect Shawna. ??ABO/Rh Pat Interp ? Reference: ? Units: 02/26/2013 ?? 17:28:00 ?? Negative ?O Positive us Historical Provider LAB BLOOD ORDERABLES Lupe l Result HISTORICAL RESULTS documented in this encounter Visit Diagnoses Diagnosis Pre-procedural laboratory examination Severe dysplasia of vagina Carcinoma in situ, vagina Essential hypertension Unspecified essential hypertension Other specified chronic obstructive airways disease Osteoarthrosis, hand Osteoarthrosis, unspecified whether generalized or localized, hand Tobacco use disorder Hearing loss Unspecified hearing loss Unspecified visual loss Family history of stroke (cerebrovascular) Encounter for long-term (current) use of aspirin Encounter for long-term (current) use of other medications documented in this encounter Care Teams Avid Editor Relationship Specialty Start Date End Date Wilmer Taylor MD [address] [place], [place] [address] Referring Physician Obstetrics and Gynecology 05/09/12 documented as of this encounter
--- OUTSIDE RECORDS SUMMARY | 2024-05-03 02:53 | XMS_ITS | Encounter Summary ---
Author Organization [facility] Facility Care Team Providers Care Cage Shift Manager Name Role Phone Wilmer Taylor MD Unavailable [phone] Encounter Details Date Type Department Care Team (Late st Contact Info) Description 03/04/2013 6:00 AM DOCKING SAW OPERATOR - 03/04/2013 4:00 PM DOCKING SAW OPERATOR Hospital Encounter [facility] Sinan Schmidt MD [facility] [address] [facility] [address] [place] [address] Carcinoma in situ of vulva; Essential hypertension; Other specified chronic obstructive airways disease; Tobacco use disorder; History of allergy to other specified medicinal agents; Encounter for long-term (current) use of other medications Social History Tobacco Use Types Packs/Day Years Used Date Smoking Tobacco: Never Assessed Comments Unknown Sex and Gender Information Value Date Recorded Sex Assigned at Not on file Legal Sex Female 10:10 AM DOCKING SAW OPERATOR Gender Identity Not on file Sexual Orientation Not on file documented as of this encounter Miscellaneous Notes * Op Note - ProviderMesha MD - 03/04/2013 12:00 AM CST Patient: Loida Guillory Reg No: [id number] H #: [id number] Admit Dt.: 03/04/2013 : 1950 Pt Type: 200 Room No: OPSC Attending: Sinan Schmidt M.D. Surgeon: Sinan Schmidt M.D. Dictating: Kareem Meade M.D. Service Dt: 03/04/2013 OPERATIVE REPORT FIRST IGNITER CAPPER: Dalia Barclay M.D. SECOND/THIRD IGNITER CAPPER: Kareem Meade M.D. ANESTHESIA: General with laryngeal mask airway. PREOPERATIVE DIAGNOSIS (ES): HAWA-3. POSTOPERATIVE DIAGNOSIS (ES): HAWA-3. NAME OF OPERATION: 1. Wide local excision of vulva. 2. Carbon dioxide laser ablation of posterior vulva using OmniGuide. INDICATIONS FOR PROCEDURE: The patient is a 62-year-old female with a history of HAWA-3. In March of 2012, she underwent a wide local excision of the vulva with removal of an area on her left labia minora as well as several other areas treated with coagulation. The patient has been followed routinely since that time and has undergone multiple vulvar biopsies in May, August, and January of 2013, all of which showed HAWA-3. Given the patient's persistent HAWA-3, the decision was made to proceed to the operating room for a repeat wide local excision. OPERATIVE FINDINGS: The patient's prior incision site was visible at the posterior fourchette. The patient's previous post-operative course had been complicated by wound separation and was evidenced by a wide scar over this area. The patient was noted to have some hyperpigmentation at the site of her previous biopsies. After the application of 5% acetic acid to the vulva, acetyl white changes were noted at the area of prior biopsies adjacent to the hyperpigmentation as well as along the posterior fourchette. DESCRIPTION OF PROCEDURE: After obtaining the appropriate operative consents, the patient was taken to the operating room where general anesthesia was obtained without difficulty and found to be adequate. The patient was prepared and draped in the dorsal lithotomy position in [facility]. 5% acetic acid was applied to the vulva and left on for approximately five minutes. After removal of the acetic acid-soaked gauze, there were noted to be mild acetyl white changes at the site of prior biopsy on the left posterior vulva as well as in the area of the posterior fourchette. Attention was first turned to the site of most recent biopsy in the left posterior vulva. This area was excised in an elliptical fashion with Bovie electrocautery. Excision depth was approximately 3 millimeters with a total overall size of 2 x 2 centimeters. The speculum was removed intact with a stitch at 12 o'clock and sent for pathology. The incision bed was then reapproximated with 0-Vicryl sutures and a combination of mattress stitches and simple interrupted stitches were used to reapproximate the wound edges. Excellent hemostasis was obtained. Attention was then turned to the acetyl white changes near the posterior fourchette. The OmniGuide carbon dioxide laser was set to a power of 10 sheikh and used to coagulate three small areas along the posterior fourchette with evidence of acetyl white change. The coagulation was taken down to the level of the dermis. At the conclusion of the procedure, all sites were noted to be hemostatic. The patient tolerated the procedure well and was taken to the recovery room in stable condition. SPECIMENS REMOVED: Left posterior vulva wide local excision with stitch at 12 o'clock. ESTIMATED BLOOD LOSS: Zero. INTRAOPERATIVE FLUIDS: 1000 mL. URINE OUTPUT: 800 mL. SPONGE/INSTRUMENT/NEEDLE COUNTS: Correct times three. CONDITION ON DISCHARGE FROM OPERATING ROOM: Stable. COMPLICATIONS: None. PRESENCE STATEMENT: I, Dr. Sinan Schmidt, was present for and directly participated in the entire procedure. Kareem Meade M.D. Electronically Signed By Sinan Schmidt M.D. 03/11/2013 08:40 A Abbey Zamorano/[facility] #[id number] Editing MT: TD: 03/05/2013 22:39:00 cc: Abbey Zamorano M.D. documented in this encounter Plan of Treatment Not on file documented as of this encounter Procedures Procedure Name Priority Date/Time Associated Diagnosis Comments BLOOD ABO, RH, INDIRECT AB SCREEN Routine 03/04/2013 6:17 AM DOCKING SAW OPERATOR SURGICAL PATHOLOGY 03/04/2013 documented in this encounter Results * Blood ABO, Rh, indirect ab screen (03/04/2013 6:17 AM DOCKING SAW OPERATOR) Shawna, indirect Negative HISTORICAL RESULTS ABO, Rho(D) O Positive HISTORI ANDREZ RESULTS Blood specimen (specimen) 03/04/2013 6:17 AM DOCKING SAW OPERATOR Sinan Schmidt MD LAB BLOOD ORDERABLES Fin al Result HISTORICAL RESULTS * Surgical pathology (03/04/2013) Narrative 03/04/2013 Ordered by an unspecified provider. 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
--- OUTSIDE RECORDS SUMMARY | 2024-05-03 02:53 | XMS_ITS | Encounter Summary ---
Author Organization [facility] Facility Care Team Providers Care University Teacher Name Role Phone Wilmer Taylor MD Unavailable [phone] Encounter Details Date Type Department Care Team (Late st Contact Info) Description 01/23/2013 - 01/23/2013 11:59 PM CDT Hospital Encounter [facility] Sinan Mae MD [address] [facility] [address] [place], [place] [id number] Carcinoma in situ of vulva Social History Tobacco Use Types Packs/Day Years Used Date Smoking Tobacco: Never Assessed Comments Unknown Sex and Gender Information Value Date Recorded Sex Assigned at Not on file Legal Sex Female 10:10 AM DESIGN ENGINEERING INTERN Gender Identity Not on file Sexual Orientation Not on file documented as of this encounter Plan of Treatment Not on file documented as of this encounter Procedures Procedure Name Priority Date/Time Associated Diagnosis Comments CYTOLOGY 01/23/2013 SURGICAL PATHOLOGY 01/23/2013 documented in this encounter Results * Cytology (01/23/2013) Narrative 01/23/2013 Ordered by an unspecified provider. us Historical Provider LAB CYTOLOGY ORDERABLES F inal Result * Surgical pathology (01/23/2013) Narrative 01/23/2013 Ordered by an unspecified provider. 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
--- OUTSIDE RECORDS SUMMARY | 2024-05-03 02:53 | XMS_ITS | Encounter Summary ---
Author Organization [facility] Address [address] [place] [address] Phone Care Team Providers Care Boat Crew Deck Hand Name Role Phone Terry Bender Primary Care Provider [phone] Wilmer Taylor MD Unavailable [phone] Reason for Visit * Reason Comments Follow-up * OBGYN (Routine) - Closed Specialty Diagnoses / Procedures Referred By Contmary t Referred To Contact Gynecologic Oncology Diagnoses HAWA III (vulvar intraepithelial neoplasia III) AGY Procedures ONCBCN CLINIC APPOINTMENT REQUEST RESERVED RETURN Sinan Schmidt MD [address] [place] [address] Phone: tel: fax: Sinan Schmidt MD [address] [place] [address] Phone: tel: fax: Referral ID Status Reason Start Date Expiration Date Visits Re quested Visits Authorized [id number] Closed 12/25/2018 06/25/2019 6 6 Encounter Details Date Type Department Care Team (Latest Contact Info) Description 02/06/2019 4:15 PM CDT Office Visit [facility] Obstetrics and Gynecology [address] [facility] 13th [place] [address] [place] [address] Sinan Schmidt MD [address] [place] [address] HAWA III (vulvar intraepithelial neoplasia III) Social [...] on file Legal Sex Female 10:10 AM FORMULA MAKER Gender Identity Not on file Sexual Orientation Not on file documented as of this encounter Last Filed Vital Signs Vital Sign Reading Time Taken Comments Blood Pressure 124/81 02/06/2019 4:50 PM CDT Pulse 72 02/06/2019 4:50 PM CDT Temperature 36.6 ??C (97.8 ??F) 02/06/2019 4:50 PM CD T Respiratory Rate 16 02/06/2019 4:50 PM CDT Oxygen Saturation 97% 02/06/2019 4:50 PM CDT Inhaled Oxygen Concentration - - Weight 62.9 kg (138 lb 9.6 oz) 02/06/2019 4:50 P M CDT Height 160 cm (5' 3 ) 02/06/2019 4:50 PM CDT Body Mass Index 24.55 02/06/2019 4:50 PM CDT documented in this encounter Progress Notes * Sinan Schmidt MD - 02/06/2019 4:15 PM CDT Gynecologic Oncology Return Visit Loida Guillory 1950 68 y.o. 02/06/2019 Visit Diagnosis 1. HAWA III (vulvar intraepithelial neoplasia III) Subjective Loida Guillory returns today for follow up for history of HAWA. She had initial resection on 04/10/12, followed by repeat in 02/2013. 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 She had a Warthin tumor in her [...] Her family is okay with this decision. Nothing is bothering her in the vulvar area. No itching or bleeding. She says she has not been smoking much; 4-5 cigarettes per day. She watches her grandkids daily and keeps active. Cancer Staging No matching staging information was found for the patient. Review of Systems Systemic: Pain: None, Fatigue: [...] Surgery - (Added by TW Conv) ??? CT BREAST SURGERY PROCEDURE UNLISTED Breast Surgery - (Added by TW Conv) ??? RHINOPLASTY Rhinoplasty - (Added by TW Conv) Allergies Allergen Reactions ??? Omeprazole Rash No current facility-administered medications for this visit. No current outpatient medications on file. Facility-Administered Medications Ordered in Other Visits: ??? acetaminophen (TYLENOL) tablet 975 mg, 975 mg, oral, Once ??? gabapentin (NEURONTIN) capsule 300 mg, 300 mg, oral, Once ??? Lactated Ringer's (LR) infusion, 30 mL/hr, intravenous, Continuous ??? Lactated Ringer's (LR) infusion, 30 mL/hr, intravenous, Continuous, Last Rate: 30 mL/hr at 04/08/19 1129, 30 mL/hr at 04/08/19 1129 ??? lidocaine PF (XYLOCAINE) 10 mg/mL (1 %) preservative free injection 2-10 mg, 0.2-1 mL, other, Once PRN ??? sodium chloride 0.9% flush 0.5-20 mL, 0.5-20 mL, intra-catheter, PRN ??? sodium chloride 0.9% flush 0.5-20 mL, 0.5-20 mL, intra-catheter, PRN Social History Tobacco Use ??? Smoking status: [...] Patient is postmenopausal. Objective Vitals Vitals BP 124/81 Pulse 72 Temp 36.6 ??C (97.8 ??F) Resp 16 Ht 160 cm (5' 3 ) Wt 62.9 kg (138 lb 9.6 oz) SpO2 97% No BMI 24.55 kg/m?? Distress Score: 5 Physical exam: General Appearance: well, in no [...] calf tenderness. Performance Score: 0 Assessment/Plan 1. HAWA III -3 new lesions noted on exam today. -Recommend EUA/WLE -Discussed alternatives such as aldara ointment (she has tried this in the past and had intolerance) 2. Research. -She is eligible for the WLE antibiotic study; ok to reach out to her in CPAP or over the phone. 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, vulva documented in this encounter Orders Nursing Count Last Ordered Date First Orde red Date ORAL INTAKE FOR [facility] SURGERY COMM 1 2018 Case Request Count Last Ordered Date First Orde red Date CASE REQUEST OPERATING ROOM 1 02/06/2019 Appointment Requests Count Last Ordered Date Fi rst Ordered Date ONCBCN CLINIC APPOINTMENT REQUEST 1 019 documented in this encounter Care Teams Boat Crew Deck Hand Relationship Specialty Start Date End Date Terry Bender DO PCP - General Internal Medicine 01/03/18 05/14/22 Wilmer Taylor MD [address] [facility] [address] [place], [place] [id number] Referring Physician Obstetrics and Gynecology 1/17/13 documented as of this encounter
--- OUTSIDE RECORDS SUMMARY | 2024-05-03 02:53 | XMS_ITS | Encounter Summary ---
Author Organization [facility] Facility Care Team Providers Care Group Cio Name Role Phone Wilmer Taylor MD Unavailable Encounter Details Date Type Department Care Team (Late st Contact Info) Description 09/04/2013 - 09/04/2013 11:59 PM CDT Hospital Encounter [facility] Sinan Mae MD [address] [facility] [address] [place] [address] Carcinoma in situ of anal canal Social History Tobacco Use Types Packs/Day Years Used Date Smoking Tobacco: Never Assessed Comments Unknown Sex and Gender Information Value Date Recorded Sex Assigned at Not on file Legal Sex Female 10:10 AM RAMP MANAGER Gender Identity Not on file Sexual Orientation Not on file documented as of this encounter Plan of Treatment Not on file documented as of this encounter Procedures Procedure Name Priority Date/Time Associated Diagnosis Comments SURGICAL PATHOLOGY 09/04/2013 documented in this encounter Results * Surgical pathology (09/04/2013) Narrative 09/04/2013 Ordered by an unspecified provider. Historical Provider LAB PATHOLOGY ORDERABLES Final Result documented in this encounter Visit Diagnoses Diagnosis Carcinoma in situ of anal canal documented in this encounter Care Teams Group Cio Relationship Specialty Start Date End Date Wilmer Taylor MD [facility] [address] Referring Physician Obstetrics and Gynecology 05/09/12 documented as of this encounter
--- OUTSIDE RECORDS SUMMARY | 2024-05-03 02:53 | XMS_ITS | Encounter Summary ---
Author Organization [facility] Address [address] [place] [address] Care Team Providers Care Architectural Associate Name Role Phone YuliaTerry munguia Primary Care Provider [phone] Wilmer Taylor MD Unavailable [phone] Encounter Details Date Type Department Care Team (Late st Contact Info) Description 04/08/2019 12:35 PM TILE SETTER - 04/08/2019 2:35 PM TILE SETTER Surgery [facility] Operating Room [address] [place] [address] Sinan Schmidt MD [address] [facility] [address] [place] [address] EXAM UNDER ANESTHESIA Surgery Details Date/Time Status Location OR Service Patient Class Case Cl ass Case Type Trauma Case? 04/08/2019 12:35 PM Posted [facility] OR POD 1 322 Obstetrics / Gynecology Outpatient Elective Panel 1 Procedure LRB Anes Op Region Wound Class Comments EXAM UNDER ANESTHESIA N/A Monitor Anesthesia Care Vagina Class II - Clean Contaminated WIDE LOCAL EXCISION - VULVA and perineum Left General Perineum Class II - Clean Contaminated Surgeon Surgeon Role Service Panel Sinan Schmidt MD Primary Obstetrics / Gy necology 1 Leandra Medina MD Fellow Obstetrics / Gy necology 1 Maria Isabel Horan MD Resident - Assisting Minor Pr ocedures 1 documented in this encounter Social History [...] on file Legal Sex Female 10:10 AM TILE SETTER Gender Identity Not on file Sexual Orientation Not on file documented as of this encounter Last Filed Vital Signs Vital Sign Reading Time Taken Comments Blood Pressure 123/64 04/08/2019 2:30 PM TILE SETTER Pulse 64 04/08/2019 2:30 PM TILE SETTER Temperature 36 ??C (96.8 ??F) 04/08/2019 1:35 PM TILE SETTER Respiratory Rate 17 04/08/2019 2:30 PM TILE SETTER Oxygen Saturation 92% 04/08/2019 2:30 PM TILE SETTER Inhaled Oxygen Concentration - - Weight - - Height - - Body Mass Index - - documented in this encounter Discharge Instructions * Discharge Instructions* Maria Isabel Horan MD - 04/08/2019 12:01 PM TILE SETTER Discharge Instructions Call Your Doctor If: * [...] appointment, please call the office to reschedule. SETTER * Attachments The following attachments cannot be sent through Care Everywhere. * [facility] PATHWAY TO EXCELLENT CARE AFTER SURGERY documented [...] tablets by mouth daily after lunch omega 1-xix-uii-fish oil 100-160-1,000 mg capsuleIndicatio ns:hypertriglyce ridemia Take [...] Conv) ??? [place] BREAST SURGERY PROCEDURE UNLISTED ? Breast Surgery [...] nicotine (NICODERM CQ) 21 mg ??? omega 5-hmv-zpl-fish oil (FISH OIL) 100-160-1,000 mg capsule Social [...] over the phone. ?? Sinan Schmidt MD SETTER documented in this encounter Miscellaneous Notes * [...] [facility] the [facility] lith[facility] An exam under anesthesia was performed [...] Sinan Schmidt MD at 04/08/2019 7:38 PM TILE SETTER SETTER SETTER SETTER Associated attestation - Sinan Schmidt MD - 04/08/2019 7:38 PM TILE SETTER I was present for the entire procedure. * Perioperative Nursing Note - Radha Milian RN - 04/08/2019 12:10 PM TILE SETTER CLEARANCE CUTTER and AQUATIC ECOLOGIST made aware that patient's nicotine patch is on RUE. SETTER documented in this encounter Plan of Treatment Not on file documented as of this encounter Procedures Procedure Name Priority Date/Time Associated Diagnosis Comments SURGICAL PATHOLOGY Routine 04/08/2019 1: 05 PM TILE SETTER HAWA III (vulvar intraepithelial neoplasia III) WIDE LOCAL EXCISION - VULVA 04/08/2019 12:32 PM TILE SETTER HAWA III (vulvar intraepithelial neoplasia III) EXAM UNDER ANESTHESIA 04/08/2019 12:32 PM TILE SETTER HAWA III (vulvar intraepithelial neoplasia III) POCT GLUCOSE DEVICE Routine 04/08/2019 11:26 AM TILE SETTER documented in this encounter Results * Surgical pathology (04/08/2019 1:05 PM TILE SETTER) Tissue (Vulva / Labia Biopsy) 04/08/2019 1:05 PM TILE SETTER Tissue (Vulva / Labia Biopsy) 04/08/2019 1:11 PM TILE SETTER Tissue (Anal Biopsy) 04/08/2019 1:12 PM TILE SETTER Narrative PATHOLOGY [facility] - 04/11/2019 6:52 PM TILE SETTER [facility] results best viewed via link to PDF [facility] [place] [address] SURGICAL PATHOLOGY REPORT FINAL Patient Name: ?? DARRION GUILLORY Gender: ??F : ??1950 (Age: 68) Address: ??[facility] [place], [place] ??[address] Hospital #: ??[id number] Taken:04/08/2019 Received:04/08/2019 Reported: 04/11/2019 Patient Type: [facility] SDS ?? Service: Obstetrics Location: [facility] Physician(s): ??Abbey Lee D.O. Diagnosis: A. Vulva [...] squamous intraepithelial lesion (HSIL, AIN-3, severe dysplasia) nak/04/10/2019 11:57 By this signature, I attest that [...] in greatest dimension. ??Labeled C1. ??Jar 0. [facility]/04/09/2019 13:18 PA(s): Leandra Martinez, , PA (ASCP) By this signature, I attest that the above diagnosis is based upon my personal examination of the slides(and/or other material). The performance characteristics of some immunohistochemical stains, fluorescence in-situ hybridization tests and immunophenotyping by flow cytometry cited in this report (if any) were determined by the Surgical Pathology Department at [facility] as part of an ongoing coding quality analyst program and in compliance with federally mandated [...] determined by the Surgical Pathology Department of [facility]. ??It has not been cleared or approved by the U. S. Food and Drug Administration. IMAGES AND SCANNED DOCUMENTS, IF INCLUDED, ONLY VIEWABLE IN PDF VERSION OF REPORT us Sinan Schmidt MD LAB PATHOLOGY ORDERABLES Final Result PATHOLOGY [facility] 3rd Floor [place], [place] [phone] * POCT glucose (04/08/2019 11:26 AM TILE SETTER) Glucose, POC 98 70 - 199 mg/dL [address] [facility] Blood specimen (specimen) 04/08/2019 11:26 AM TILE SETTER 04/08/2019 11:26 AM TILE SETTER us Sinan Schmidt MD LAB POCT ORDERABLES - DE VICE Final Result [address] [address] [facility] Department [place] [address] documented in this encounter Visit Diagnoses Diagnosis HAWA III (vulvar intraepithelial neoplasia III)- Primary Carcinoma in situ, 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, vulva HAWA III (vulvar [...] 1145, For 1 dose, Pre-Op, Indications: Pre-Emptive AnalgesiaIndications:Pre- Emptive Analgesia Given 04/08/2019 11:29 AM TILE SETTER 1,000 mg bupivacaine-EPINEPHrine (MARCAINE with EPI) 0.5 %-1:200,000 preservative free injection As needed, Starting on Sun04/08/19 at 1326, Intra-Op Given 04/08/2019 1:26 PM TILE SETTER 4 mL gabapentin (NEURONTIN) capsule 300 mg 300 mg, oral, Once, On Sun04/08/19 at 1145, For 1 dose, Pre-Op, Administer 1 hour prior to induction., Indications: PainIndications:Pain Given 04/08/2019 11:30 AM TILE SETTER 300 mg Lactated Ringer's (LR) infusion 30 mL/hr, intravenous, Continuous, Starting on Sun04/08/19 at 1145, Pre-Op Rate/Dose Change 04/08/2019 12:31 PM TILE SETTER 150 mL/hr New Bag 04/08/2019 11:29 AM TILE SETTER 30 mL/hr 30 mL/hr ondansetron (ZOFRAN) injection 4 mg 4 mg, intravenous, Administer over 2 Minutes, Once, On 12/17/19 at 1145, For 1 dose, Pre-Op, Indications: Prevention of Post-Operative Nausea and VomitingIndications:Prevention of Post-Operative Nausea and Vomiting Given 04/08/2019 11:32 AM TILE SETTER 4 mg sodium chloride 0.9 % irrigation As needed, Starting on Sun04/08/19 at 1327, Intra-Op Given 04/08/2019 1:27 PM TILE SETTER 1,000 mL sodium chloride 0.9% flush 0.5-20 mL 0.5-20 mL, intra-catheter, As needed, line care, Starting on Sun04/08/19 at 1109, Pre-Op, Flush volume based on line type and size. Flush before and after each use.Indications:HAWA III (vulvar intraepithelial neoplasia III) documented in this encounter Active and Recently Administered Medications Times are shown in TILE SETTER. Scheduled Medication Order 04/06/2019 04/07/2019 04/08/2019 acetaminophen (TYLENOL) tablet 1,000 mg (COMPLETED) 1,000 mg, oral, Once, On Sun04/08/19 at 1145, For 1 dose, Pre-Op, Indications: Pre-Emptive Analgesia 1129 (Given - Provid er: Radha Milian RN) acetaminophen (TYLENOL) tablet 975 mg 975 mg [...] 1130 (Given - Provid er: Radha Milian, DIGNA) ondansetron (ZOFRAN) injection 4 mg (COMPLETED) 4 mg, intravenous, Administer over 2 Minutes, Once, On Sun04/08/19 at 1145, For 1 dose, Pre-Op, Indications: Prevention of Post-Operative Nausea and Vomiting 1132 (Given - Provid er: Radha Milian RN) Continuous Medication Order 04/06/2019 04/07/2019 04/08/2019 [...] Date acetaminophen (TYLENOL) tablet 975 mg 1 fentaNYL (SUBLIMAZE) preserv ative free injection 50 mcg 1 04/08/2019 gabapentin (NEURONTIN) capsule 300 mg HYDROmorphone (DILAUDID) injection 0.2 mg 1 04/08/2019 HYDROmorphone (DILAUDID) injection 0.4 mg 1 04/08/2019 Lactated Ringer's (LR) infusion 1 9 lidocaine PF (XYLOCAINE) 10 mg/mL (1 %) preservative free injection 2-10 mg 1 04/08/2019 ondansetron (ZOFRAN) injection 4 mg 1 04/08 prochlorperazine (COMPAZINE) injection 10 mg 1 04/08/2019 sodium chloride 0.9% flush 0.5-20 mL 2 03/23 documented in this encounter Care Teams Architectural Associate Relationship Specialty Start Date End Date Terry Bender DO PCP - General Internal Medicine 01/03/18 05/14/22 Wilmer Taylor MD [address] [facility] [address] [place] [address] Referring Physician Obstetrics and Gynecology 05/09/12 documented as of this encounter
--- OUTSIDE RECORDS SUMMARY | 2024-05-03 02:53 | XMS_ITS | Encounter Summary ---
Author Organization [facility] Address [address] [place] [address] Phone Care Team Providers Care Director Of Individual Giving Name Role Phone Terry Bender Primary Care Provider [phone] Wilmer Taylor MD Unavailable [phone] Reason for Visit * Reason Comments Post-op Visit * OBGYN (Routine) - Closed Specialty Diagnoses / Procedures Referred By Micah t Referred To Contact Gynecologic Oncology Diagnoses post surg 04/08/2019 Pt's daughter wanted this office due to work schedule[facility] [id number] GOOD FROM 12/25/2018-06/25/2019 04/21/19 IS 3 OF 6SM Procedures POSTOPERATIVE VISIT Sinan Schmidt MD [address] [facility] OBGYN GYNECOLOGIC ONCOLOGY, [address] [address] Phone: tel: fax: Sinan Schmidt MD [address] [place] [address] Phone: tel: fax: Referral ID Status Reason Start Date Expiration Date Visits Re quested Visits Authorized [id number] Closed 04/21/2019 10/30/2020 1 1 Encounter Details Date Type Department Care Team (Latest Contact Info) Description 04/21/2019 9:45 AM CHIEF DRAFTER Office Visit [facility] Gynecology/Oncology [address] [facility] [address] [place] [phone] Sinan Schmidt MD [address] [place] [address] HAWA III (vulvar intraepithelial neoplasia III) (Primary [...] file Legal Sex Female 10:10 AM CHIEF DRAFTER Gender Identity Not on file Sexual Orientation Not on file documented as of this encounter Last Filed Vital Signs Vital Sign Reading Time Taken Comments Blood Pressure 122/80 04/21/2019 9:27 AM CHIEF DRAFTER Pulse 70 04/21/2019 9:27 AM CHIEF DRAFTER Temperature 36.2 ??C (97.1 ??F) 04/21/2019 9:27 AM CS T Respiratory Rate - - Oxygen Saturation 96% 04/21/2019 9:27 AM CHIEF DRAFTER Inhaled Oxygen Concentration - - Weight 62.1 kg (137 lb) 04/21/2019 9:27 AM CHIEF DRAFTER Height 160 cm (5' 3 ) 04/21/2019 9:27 AM CHIEF DRAFTER Body Mass Index 24.27 04/21/2019 9:27 AM CHIEF DRAFTER documented in this encounter Progress Notes * Sinan Schmidt MD - 04/21/2019 9:45 AM CST Gynecologic Oncology Postoperative Visit Loida Guillory 1950 68 y.o. 04/21/2019 Visit Diagnosis 1. 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 She is doing well, no complaints from the procedure. Has been using ointment 2-3 times a day and has not noticed any irritation. Has been using miralax to keep her bowels moving. Surgery: Wide local excision of the vulva Date of Surgery: 04-08-19 A. Vulva and perineum, left, wide local excision: ? - High-grade squamous intraepithelial lesion (HSIL, HAWA-3, severe dysplasia) - Resection margin with no evidence of intraepithelial lesion or dysplasia B. Vulva, left alen-clitoral lesion, biopsy ? - High-grade squamous intraepithelial lesion (HSIL, HAWA-3, severe dysplasia) C. Anus, left perianal lesion, biopsy ? - High-grade squamous intraepithelial lesion (HSIL, AIN-3, severe dysplasia) Cancer Staging No matching staging information was [...] squamous intraepithelial lesion (HSIL, AIN-3, severe dysplasia) Objective Review of Systems Systemic: Pain: None, Fatigue: [...] Mood changes: None Skin: Skin rash: None Vitals BP 122/80 Pulse 70 Temp 36.2 ??C (97.1 ??F) Ht 160 cm (5' 3 ) Wt 62.1 kg (137 lb) SpO2 96% BMI 24.27 kg/m?? Physical exam: General Appearance: well, in no acute distress. Abdomen: soft, non-tender, without palpable masses, hernias, or enlarged liver or spleen; no fluid wave. Incision(s) are intact without erythema or discharge Vulvar stitches still present at perineum; no breakdown. Skin: without rashes. Lower extremities: without edema or calf tenderness. Performance Score: 0 Lab/Radiology/Diagnostic Review: Surgical Pathology: Reviewed as above Assessment/Plan 1. VIN3. -Discussed pathology results; overall reassuring as there is no evidence of invasion, but will continue to require close observation. -RTC 3 months. Sinan Schmidt MD CC: Patient Care Team Patient Care Team: Terry Bender DO as PCP - General (Internal Medicine) Wilmer Taylor MD as Referring Physician (Obstetrics and Gynecology) Enclosures:Note, Op Note and Path Report F DRAFTER documented in this encounter Plan of Treatment Not on file documented as of this encounter Visit Diagnoses Diagnosis HAWA III (vulvar intraepithelial neoplasia III)- Primary Carcinoma in situ, vulva documented in this encounter Orders Appointment Requests Count Last Ordered Date Fi rst Ordered Date ONCBCN CLINIC APPOINTMENT REQUEST 1 020 documented in this encounter Care Teams Director Of Individual Giving Relationship Specialty Start Date End Date Terry Bender DO PCP - General Internal Medicine 01/03/18 05/14/22 Wilmer Taylor MD [address] [place] [address] [facility] [address] [address] Referring Physician Obstetrics and Gynecology 05/09/12 documented as of this encounter
== END 2024-04-29 14:33 | disposition home health service (06) | DRG 193 ==
LOC: ANHED 04-26 05:20 → ANHIMU 04-26 08:02
PROVIDERS: Physician Assistant; Admitting Provider Internal Medicine; Emergency Provider Emergency Medicine; PCP Nurse Practitioner; Visit Provider Nurse Practitioner Family
DX: J18.0 Bronchopneumonia, unspecified organism (principal); J96.92 Respiratory failure, unspecified with hypercapnia; J44.0 Chronic obstructive pulmonary disease with (acute) lower respiratory infection; I71.22 Aneurysm of the aortic arch, without rupture; M15.9 Polyosteoarthritis, unspecified; M05.79 Rheumatoid arthritis with rheumatoid factor of multiple sites without organ or systems involvement; R01.1 Cardiac murmur, unspecified; Z20.822 Contact with and (suspected) exposure to COVID-19; Z87.891 Personal history of nicotine dependence; Z99.81 Dependence on supplemental oxygen; Z85.118 Personal history of other malignant neoplasm of bronchus and lung; Z79.82 Long term (current) use of aspirin
CPT/HCPCS: 36415; 36600; 71046; 71275; 80053; 80061; 81001; 82805; 83735; 83880; 84439; 84443; 84480; 84484; 85018; 85025; 85610; 85730; 87040; 87637; 93005; 94618; 94640; 96365; 96366; 96367; 96368; 96372; 96375; 99285; A9270; C8929; G0378; J0456; J0696; J1650; J2919; J3475; Q9957; Q9967

== ENCOUNTER 2024-08-09 11:09 | Outpatient (CLI) | payer OTHER, SELFPAY ==
--- NOTE | ~2024-08-09 | MM_ITS ---
EXAMINATION: MM screening renee BI w [facility] HISTORY: Screening TECHNIQUE: Craniocaudal and mediolateral oblique 3-D tomosynthesis images were obtained and synthetic 2-D images were generated. CAD analysis was submitted and interpreted. COMPARISON: Comparison to multiple prior studies sequentially, with oldest reviewed study dated 08/15. BREAST PARENCHYMAL COMPOSITION: Dense: The breasts are heterogeneously dense, which may obscure small masses FINDINGS: There is no evidence of suspicious mass, calcification, or architectural distortion to sugg est malignancy in either breast. There has been no suspicious interval change. IMPRESSION: 1. No mammographic evidence of malignancy. 2. Recommend routine screening mammography in one year. BI-RADS Category 1: Negative Reviewed, dictated and finalized at location A.
--- OUTSIDE RECORDS SUMMARY | 2024-08-09 11:12 | XMS_ITS ---
Author Organization [facility] Address [address] [place] [address] Care Team Providers Care Floor Clerk Name Role Phone Wilmer Taylor MD Unavailable [phone] Jeffrey Koch MD Unavailable [phone] Luz Lewis MD Unavailable [phone] Raleigh Jay MD PhD Unavailable [phone] Ranjan Cazares MD Unavailable [phone] Terry Bender DO Primary Care Provider [phone] Active Problems Patient Care Coordination No te [...] Noted Date Diagnosed Date Malignant neoplasm of both lungs 05/15/2024 Malignant neoplasm of upper lobe, left bronchus [...] PRN. Assessment & Plan (05/21/2023 12:22 PM MAIL DELIVERY SUPERVISOR): Pain overlying right lateral chest wall. TTP [...] (11/21/2021): Added automatically from request for surgery [id number] Bronchogenic lung cancer, right 09/12/2021 COPD (chronic obstructive pulmonary disease) Assessment & Plan (09/12/2021 4:10 PM CDT): - cont inhalers - wean O2 as tolerated History of lobectomy of lung 09/01/2021 Overview (09/01/2021): Added automatically from request for surgery [id number] [facility] current use 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 drug 2021 Assessment & Plan (04/17/2024 9:13 AM MAIL DELIVERY SUPERVISOR): Hepatitis negative: 02/2021 Assessment & Plan (10/08/2023 9:05 AM CDT): Hepatitis negative: 02/2021 Assessment & Plan (07/09/2023 9:21 AM CDT): Hepatitis negative: 02/2021 Assessment & Plan (05/21/2023 10:12 AM MAIL DELIVERY SUPERVISOR): Hepatitis negative: 02/2021 Assessment & Plan (02/12/2023 11:59 AM CDT): Hepatitis negative: 02/2021 Assessment & Plan (10/09/2022 1:07 PM CDT): Hepatitis negative: 02/2021 Assessment & Plan (05/15/2022 10:43 AM MAIL DELIVERY SUPERVISOR): Hepatitis negative: 02/2021 Assessment & Plan (01/16/2022 10:56 AM CDT): Hepatitis negative: 02/2021 Assessment & Plan (10/17/2021 12:11 PM CDT): Hepatitis negative: 02/2021 Assessment & Plan (06/20/2021 10:12 AM MAIL DELIVERY SUPERVISOR): Hepatitis negative: 02/2021 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 Seropositive RA (+RF, CCP) [...] needed. Assessment & Plan (05/21/2023 12:18 PM MAIL DELIVERY SUPERVISOR): Low cdai. Seropositive RA (+RF, CCP) that [...] needed. Assessment & Plan (05/15/2022 10:55 AM MAIL DELIVERY SUPERVISOR): Low cdai. Seropositive RA (+RF, CCP) that [...] needed. Assessment & Plan (06/20/2021 10:11 AM MAIL DELIVERY SUPERVISOR): Seropositive RA (+RF, CCP) that remains well controlled with MTX 12.5mg weekly. Main complaints are pain involving the R 4th PIP joints and cervical spine which are degenerative however is responding well to Voltaren gel otc. Will continue MTX 12.5mg weekly and folic acid 1mg daily.Routine labs today. Follow up in 3 months. Sooner if needed. Assessment & Plan (03/14/2021 10:50 AM MAIL DELIVERY SUPERVISOR): Seropositive RA (+RF, CCP) that remains well [...] Koch. Assessment & Plan (02/28/2021 9:54 AM MAIL DELIVERY SUPERVISOR): 70-year-old female with PMHx of HTN, COPD, [...] 02/28/2021 Assessment & Plan (04/17/2024 9:13 AM MAIL DELIVERY SUPERVISOR): Pain worse with activity and improved with [...] PM&R. Assessment & Plan (05/21/2023 12:11 PM MAIL DELIVERY SUPERVISOR): Pain worse with activity and improved with [...] exercises. Assessment & Plan (05/15/2022 10:43 AM MAIL DELIVERY SUPERVISOR): Pain worse with activity and improved with [...] exercises. Assessment & Plan (06/20/2021 10:11 AM MAIL DELIVERY SUPERVISOR): Pain worse with activity and improved with rest. Denies radiating pain. 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 Patient defers PT and worried about NSAIDs with her current medication regimen. Taking tylenol otc prn with some relief. Using Voltaren gel otc prn with good relief. Continue home exercises. Assessment & Plan (03/14/2021 10:52 AM MAIL DELIVERY SUPERVISOR): Pain worse with activity and improved with [...] pain. Assessment & Plan (02/28/2021 9:57 AM MAIL DELIVERY SUPERVISOR): Pain worse with activity and improved with [...] - PT to eval and treat Current Treatment and Therapy Plans No current plan information found. Past Treatment and Therapy Plans No past plan information found. Radiation Treatments (No Episode) * Course C2_LUL_202309/03/2023 - 09/07/2023 Treatment Period Energy Fraction Dose Fractions Total Dose Plans Planned SBRT L LUN 09/04/2023 - 09/07/2023 1,100 4 / 4,400 SBRT L LUNG 09/03/2023 - 09/03/2023 1,100 1 / 5,500 Reference Points Delivered SBRT L [id number] 09/03/2023 - 09/07/2023 5,500 * Course C1_RLL_202201/01/2023 - 08/31/2023 Treatment Period Energy Fraction Dose Fractions Total Dose Plans Planned SBRT RLL LUNG 01/01/2023 - 08/31/2023 1,100 5 / 5,500 Reference Points Delivered [id number] 01/01/2023 - 08/31/2023 5,500
--- OUTSIDE RECORDS SUMMARY | 2024-08-09 11:12 | XMS_ITS | Encounter Summary ---
Author Organization [facility] Address [address] [place] [address] Phone Care Team Providers Care Final Dressing Cutter Name Role Phone Terry Bender DO Primary Care Provider [phone] Wilmer Taylor MD Unavailable [phone] Jeffrey Koch MD Unavailable [phone] Luz Lewis MD Unavailable [phone] Sin Mcclure MD Primary Care Provider [phone] Jay Argueta MD Primary Care Provider [phone] Raleigh Jay MD PhD Unavailable [phone] Ranjan Cazares MD Unavailable [phone] Gabriele Adams NP Primary Care Provider [phone] Terry Bender DO Primary Care Provider [phone] Encounter Details Date Type Department Care Team (Late st Contact Info) Description 08/30/2021 Telephone [facility] Oncology [address] [facility] 7[address] [place] [address] [place] [address] Marianne Hernandez Social History Tobacco Use Types [...] on file Legal Sex Female 10:10 AM [employer] Gender Identity Not on file Sexual Orientation Not on file documented as of this encounter Functional Status documented as of this encounter Plan of Treatment Not on file documented as of this encounter Visit Diagnoses Not on filedocumented in this encounter Care Teams Final Dressing Cutter Relationship Specialty Start Date End Date Terry Bender DO PCP - General Internal Medicine 01/03/18 05/14/22 Sin Mcclure MD [address] [place] [address] PCP - General Internal Medicine 05/15/22 11/28/22 Jay Argueta MD [address] [place] [address] PCP - General Family Practice 11/29/22 10/07/23 Gabriele Adams NP [address] [facility] [address] [place] [address] PCP - General Nurse Practitioner 10/08/23 12/06/23 Terry Bender DO [address] [place] [address] PCP - General Internal Medicine 12/07/23 Wilmer Taylor MD [address] [address] Referring Physician Obstetrics and Gynecology 05/09/12 Jeffrey Koch MD [address] [place] [address] Consulting Physician Rheumatology 02/03/21 Luz Lewis MD [address] [place] [address] Referring Physician Surgery 12/14/21 Raleigh Jay MD PhD [address] [place] [address] Radiation Oncologist Radiation Oncology 12/12/22 Ranjan Cazares MD [id number] [place], [place] [id number] Surgeon Thoracic Surgery 12/12/22 documented as of this encounter
--- OUTSIDE RECORDS SUMMARY | 2024-08-09 11:12 | XMS_ITS | Referral Summary ---
Author Organization [facility] Address [address] [place] [address] Care Team Providers Care Air Conditioning Supervisor Name Role Phone Wilmer Taylor MD Unavailable [phone] Jeffrey Koch MD Unavailable [phone] Luz Lewis MD Unavailable [phone] Raleigh estrada MD PhD Unavailable [phone] Ranjan Cazares MD Unavailable [phone] Terry Bender DO Primary Care Provider [phone] Encounters Date Type Department Care Team Description 07/07/2024 8:30 AM CDT Office Visit [facility] Pulmonary at [address] [place] [phone] Frankie Cardoso MD Chronic obstructive pulmonary disease, unspecified COPD type (HCC) (Primary Dx); Pulmonary nodules; Malignant neoplasm of lower lobe, right bronchus or lung (HCC); Malignant neoplasm of upper lobe, left bronchus or lung (HCC); Malignant neoplasm of upper lobe, right bronchus or lung (HCC) 07/03/2024 8:53 AM CDT - 07/03/2024 11:59 PM CDT Hospital Encounter [facility] [address] [place] [address] Chronic obstructive pulmonary disease, unspecified COPD type (HCC) Discharge Disposition: Discharge to home or self care 06/21/2024 11:17 AM PLIER WORKER - 06/21/2024 11:59 PM PLIER WORKER Hospital Encounter [facility] [address] [place] [address] Pulmonary nodules Discharge Disposition: Discharge to home or self care 06/20/2024 Telephone [facility] [address] [place] [address] Taz Sultana 06/17/2024 Telephone [facility] Pulmonary at [address] [place] [phone] Nilsa Ayala LPN Appt reminder, PFT 05/28/2024 Telephone [facility] Pulmonary at [address] [place] [phone] Nilsa Ayala LPN Repeat CT 05/27/2024 Orders Only [facility] Pulmonary at [address] [place] [phone] Frankie Cardoso MD Pulmonary nodules (Primary Dx) 05/21/2024 1:30 PM PLIER WORKER - 05/21/2024 3:20 PM PLIER WORKER Surgery [facility] [address] [place] [address] Frankie Cardoso MD BRONCHOSCOPY WITH RADIAL ENDOBRONCHIAL ULTRASOUND AND LINEAR ENDOBRONCHIAL ULTRASOUND GUIDED FINE NEEDLE ASPIRATE, LEFT LOWER LOBE NODULE AND STATION 4L 05/21/2024 1:37 PM PLIER WORKER Anesthesia Event [facility] [address] [place] [address] Ish Batista MD McDowell, Juri Osmell, MD 05/21/2024 12:03 PM PLIER WORKER - 05/21/2024 4:10 PM PLIER WORKER Hospital Encounter [facility] [address] [place] [address] Frankie Cardoso MD Malignant neoplasm of both lungs (HCC) (Primary Dx) Discharge Disposition: Discharge to home or self care 05/15/2024 Orders Only [facility] Pulmonary at [address] [place] [phone] Frankie Cardoso MD 05/13/2024 9:00 AM PLIER WORKER Office Visit [facility] Pulmonary at [address] [place] [address] Frankie Cardoso MD Chronic obstructive pulmonary disease, unspecified COPD type (HCC) (Primary Dx); Pulmonary nodules; Malignant neoplasm of lower lobe, right bronchus or lung (HCC); Malignant neoplasm of upper lobe, left bronchus or lung (HCC); Malignant neoplasm of upper lobe, right bronchus or lung (HCC) from Last 3 Months Allergies Active Allergy Reactions Criticality Noted Date Comments Amoxicillin Diarrhea Low 09/01/2021 Ciprofloxacin Hives Medium 05/16/2024 Levofloxacin Swelling,Muscle pain Medium 07/09/2023 Tendon pain, lower leg swelling Ibuprofen Other (See comments) Low 09/12/2021 Patient takes Methotrexate and advised not to take. Omeprazole Rash Medium Medications calcium carbonate-vitam in D3 1,500 mg (600mg elemental) -800 unit per tabletIndicatio ns:hypocalcemia Take 2 tablets by mouth daily after lunch Active omega 8-lmc-zdv-fish oil 100-160-1,000 mg capsuleIndicati ons:hypertrigly ceridemia Take 1 capsule by mouth daily after dinner Active ascorbic acid (VITAMIN C) 500 mg tablet,chewable Indications:Vit caballero C Deficiency Take 1 tablet/chew tab (500 mg total) by mouth daily after dinner Supplement Active acetaminophen (TYLENOL) 500 mg tablet Take 2 tablets (1,000 mg total) by mouth every 6 (six) hours as needed for pain 60 tablet 2 9 Active famotidine (PEPCID) 20 mg tabletIndicatio ns:gastroesopha geal reflux disease Take 1 tablet (20 mg total) by mouth every morning 1 Active alendronate (FOSAMAX) 70 mg tablet Take 1 [...] 3 Active folic acid (FOLVITE) 1 mg tabletIndicatio ns:Folate Deficiency Take 1 tablet (1 mg total) by mouth daily after lunch 90 tablet 3 4 Active methotrexate 2.5 mg tabletIndicatio ns:Rheumatoid Arthritis Take 5 tablets (12.5 mg total) by mouth every 7 days 60 tablet 1 4 Active Stiolto Respimat 2.5-2.5 mcg/actuation inhaler Inhale 1 puff daily 5 Active albuterol HFA (PROVENTIL HFA,VENTOLIN HFA,PROAIR HFA) 90 mcg/actuation inhaler Inhale 2 puffs every 6 (six) hours as needed 5 Active Eliquis 5 mg tablet Take 1 tablet (5 mg total) by mouth every 12 (twelve) hours 5 Active Tiadylt ER 120 mg 24 hr capsule Take 1 capsule (120 mg total) by mouth every morning 5 Active ascorbic acid/vitamin E/biotin (HAIR, SKIN, NAILS WITH BIOTIN ORAL) Take 2 each by mouth daily Active Active Problems Patient Care Coordination No te [...] PRN. Assessment & Plan (05/21/2023 12:22 PM PLIER WORKER): Pain overlying right lateral chest wall. 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 Assessment & Plan (04/17/2024 9:13 AM PLIER WORKER): Hepatitis negative: 02/2021 Assessment & Plan (10/08/2023 9:05 AM CDT): Hepatitis negative: 02/2021 Assessment & Plan (07/09/2023 9:21 AM CDT): Hepatitis negative: 02/2021 Assessment & Plan (05/21/2023 10:12 AM PLIER WORKER): Hepatitis negative: 02/2021 Assessment & Plan (02/12/2023 11:59 AM CDT): Hepatitis negative: 02/2021 Assessment & Plan (10/09/2022 1:07 PM CDT): Hepatitis negative: 02/2021 Assessment & Plan (05/15/2022 10:43 AM PLIER WORKER): Hepatitis negative: 02/2021 Assessment & Plan (01/16/2022 10:56 AM CDT): Hepatitis negative: 02/2021 Assessment & Plan (10/17/2021 12:11 PM CDT): Hepatitis negative: 02/2021 Assessment & Plan (06/20/2021 10:12 AM PLIER WORKER): Hepatitis negative: 02/2021 Rheumatoid arthritis 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 Seropositive RA (+RF, CCP) [...] needed. Assessment & Plan (05/21/2023 12:18 PM PLIER WORKER): Low cdai. Seropositive RA (+RF, CCP) that [...] needed. Assessment & Plan (05/15/2022 10:55 AM PLIER WORKER): Low cdai. Seropositive RA (+RF, CCP) that [...] needed. Assessment & Plan (06/20/2021 10:11 AM PLIER WORKER): Seropositive RA (+RF, CCP) that remains well controlled with MTX 12.5mg weekly. Main complaints are pain involving the R 4th PIP joints and cervical spine which are degenerative however is responding well to Voltaren gel otc. Will continue MTX 12.5mg weekly and folic acid 1mg daily.Routine labs today. Follow up in 3 months. Sooner if needed. Assessment & Plan (03/14/2021 10:50 AM PLIER WORKER): Seropositive RA (+RF, CCP) that remains well [...] Koch. Assessment & Plan (02/28/2021 9:54 AM PLIER WORKER): 70-year-old female with PMHx of HTN, COPD, [...] 02/28/2021 Assessment & Plan (04/17/2024 9:13 AM PLIER WORKER): Pain worse with activity and improved with [...] PM&R. Assessment & Plan (05/21/2023 12:11 PM PLIER WORKER): Pain worse with activity and improved with [...] exercises. Assessment & Plan (05/15/2022 10:43 AM PLIER WORKER): Pain worse with activity and improved with [...] exercises. Assessment & Plan (06/20/2021 10:11 AM PLIER WORKER): Pain worse with activity and improved with rest. Denies radiating pain. 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 Patient defers PT and worried about NSAIDs with her current medication regimen. Taking tylenol otc prn with some relief. Using Voltaren gel otc prn with good relief. Continue home exercises. Assessment & Plan (03/14/2021 10:52 AM PLIER WORKER): Pain worse with activity and improved with [...] pain. Assessment & Plan (02/28/2021 9:57 AM PLIER WORKER): Pain worse with activity and improved with [...] - PT to eval and treat Immunizations Immunization Administration Dates Next Due Influenza, Quadrivalent, Kaylen [...] Used Date Smoking Tobacco: Former Cigarettes 0.3 46 1 969 - 2015 Smokeless Tobacco: Never Tobacco Cessation:Counseling Given: Not Answered Alcohol Use Standard Drinks/Week Comments Never 0 (1 standard drink = 0.6 oz pur e alcohol) AUDIT-C Answer Date Recorded Q1: How often do you have a drink containing alcohol? Patient declined 07/07/2024 Q2: How many drinks containi ng alcohol do you have on a typical day when you are drinking? Patient does not drink Q3: How often do you have si x or more drinks on one occasion? Never 07/07/2024 Personal Safety Answer Date Recorded Have you ever been in or are you currently in a harmful physical or emotional relationship or is someone making you feel afraid or unsafe? Denies 05/21/2024 Comments No Sex and Gender Information Value Date Recorded Sex Assigned at Not on file Legal Sex Female 10:10 AM PLIER WORKER Gender Identity Not on file Sexual Orientation Not on file Last Filed Vital Signs Vital Sign Reading Time Taken Comments Blood Pressure 142/81 07/07/2024 8:30 AM CDT Pulse 77 07/07/2024 8:30 AM CDT Temperature 36.4 C (97.6 F) 07/07/2024 8:30 AM CDT Respiratory Rate 18 07/07/2024 8:30 AM CDT Oxygen Saturation 97% 07/07/2024 8:30 AM CDT Inhaled Oxygen Concentration - - Weight 58.5 kg (129 lb) 07/07/2024 8:30 AM CDT Height 162.6 cm (5' 4 ) 07/07/2024 8:30 AM CDT Body Mass Index 22.14 07/07/2024 8:30 AM CDT Plan of Treatment Not on file Procedures Procedure Name Priority Date/Time Associated Diagnosis Comments PULMONARY FUNCTION TEST (PFT) Routine 07/03/2024 10:12 AM CDT Chronic obstructive pulmonary disease, unspecified COPD type (HCC) CT CHEST WO CONTRAST Schedule Routine, Read Routine (OP Routine) 06/21/2024 11:50 AM PLIER WORKER Pulmonary nodules XR CHEST 1 VIEW IP Routine 05/21/2024 3:13 PM PLIER WORKER Malignant neoplasm of both lungs (HCC) [place] AN ELECTIVE ENDOTRACHEAL AIRWAY Routine 05/21/2024 2:01 PM PLIER WORKER BRONCHOSCOPY ENDOBRONCHIAL ULTRASOUND 05/21/2024 1:22 PM PLIER WORKER Malignant neoplasm of both lungs (HCC) CYTOLOGY Routine 05/21/2024 12:00 AM PLIER WORKER HEPATITIS PANEL, ACUTE Routine 02/28/2021 10:09 AM PLIER WORKER 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 factor (HCC) Fatigue, unspecified type FDC current use 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 drug from Last 3 Months or Most Recently Relevant to Health Maintenance Results * Pulmonary Function Test - (07/03/2024 10:12 AM CDT) Anatomical Region Laterality Modality PFT 07/03/2024 9:17 AM CDT Impressions 07/04/2024 9:54 AM CDT 1. Spirometry demonstrates mild obstructive defect. 2. Lung volumes demonstrate moderate restrictive ventilatory defect. 3. Severe diffusion impairment. 1. Total 6 minute walk distance is 420 feet. At this level exertion the patient oxygen saturation decreased to 81% with ambulation while on room air. Patient required 3 liters/minute of supplemental oxygen to maintain adequate oxygen saturation with ambulation. Electronically signed by Kain Wesley DO Pulmonary & Critical Care Narrative 07/04/2024 9:54 AM CDT PULMONARY FUNCTION TESTS Darrion Guillory 74 y.o. 07/04/2024 INTERPRETATION Please see technologist's comments mentioned in attached results report. SPIROMETRY: Pre bronchodilator FEV1 is 61 % predicted, FVC is 75 % predicted, FEV1/FVC is 63 Bronchodilator response: There was no significant bronchodilator response. Inspection of the patient's flow-volume loops shows: Expiratory airflow obstruction.. LUNG VOLUMES: Lung volumes by body plethysmography: TLC is 63 % predicted, RV is 48 % predicted DLCO: Unadjusted for hemoglobin and carboxyhemoglobin DLCO is 27 % predicted SIX MINUTE WALK TEST Interpretation: The patient walked for 6 minutes on level ground and covered total distance of 420 feet. On the Clark scale at baseline, reported dyspnea was 0. At the end of the study, reported dyspnea on the Clark scale was 3. Oxygen saturation declined to 81% with ambulation while on room air. Patient required 3 liters/minute of supplemental oxygen to maintain adequate oxygen saturation. Frankie Cardoso MD PFT ORDERABLES Final Result * CT chest without contrast (06/21/2024 11:50 AM PLIER WORKER) Anatomical Region Laterality Modality Body N/A Computed Tomogra phy 06/25/2024 7:52 AM PLIER WORKER Narrative 06/25/2024 7:58 AM PLIER WORKER EXAM DESCRIPTION: CT CHEST WO CONTRAST REASON FOR STUDY: Lung nodule, > 8mm Follow up pulmonary nodules Hx of right upper lung surgery in 2021 Prev scans in [facility] TECHNIQUE: CT scan of the chest performed without intravenous contrast using helical scanning technique. Reconstructed coronal and sagittal MPR images reviewed. All images stored on PACS. Automated exposure control was used as a dose optimization technique for this examination. COMPARISON: 04/26/2024 (report not available). Correlation is also made with a chest CT 04/11/2024. FINDINGS: The sensitivity for detection of solid visceral lesions is diminished without the use of intravenous contrast. LUNGS: Postsurgical changes are seen from right upper lobectomy. Emphysema is noted. In the posterior aspect right lung there is a spiculated nodule, this is 1.3 x 0.9 cm (image 36), this has significantly increased in size previously 0.5 cm as remeasured. There is bibasilar mild fibrosis. There is persistent but diminished patchy opacities in the lung bases, in the left base some of the previous areas of nodularity and masslike opacity have diminished. There is a remaining nodular area of opacity 2.8 x 1.7 cm (image 70 which is slightly more consolidative compared with the opacity previously seen at this location. An example of a previous masslike opacity which has resolved in the left lower lobe was previously 3.5 x 1.9 cm. There is hazy opacity curvilinear in the left upper lobe possibly postradiation change but nonspecific. PLEURA: No pleural effusion or pneumothorax. MEDIASTINUM/OLGA: No mediastinal or hilar mass. There are calcifications most pronounced left hilum. Calcification subcarinal station. HEART: Heart size normal. No pericardial effusion. CORONARY ARTERY CALCIFICATION: Coronary artery calcifications are noted. VASCULATURE: Ascending thoracic aorta 3.6 cm which is nonaneurysmal. AXILLA: No axillary lymphadenopathy. CHEST WALL: No chest wall mass or subcutaneous emphysema. HARDWARE/LINES/TUBES: None. UPPER ABDOMEN: In the included upper abdomen, no significant abnormalities are seen. MUSCULOSKELETAL: Bone windows demonstrate no acute or aggressive osseous abnormality. There are defects of the right 5th and 6th ribs slightly displaced incompletely healed evidence of subacute fracture. OTHER: No other significant abnormality. IMPRESSION: Spiculated nodule in the posterior aspect of the right lung 1.3 x 0.9 cm, significantly increased in size from the prior study. This is suspicious for possible malignancy although slightly atypical given the very rapid growth. Further assessment could be made with a PET-CT. Persistent but diminished patchy opacities in the lung bases, some of the previous areas of nodularity and masslike opacity have diminished. There is a remaining nodular area of opacity 2.8 x 1.7 cm which is slightly more consolidative compared with the opacity previously seen at this location. Continued follow-up recommended. Per Fleischner Society Guidelines, non-contrast chest CT at 3 to 6 months is recommended. If the nodules are stable at time of repeat CT, then future CT at 18 to 24 months (from today's scan) is considered optional for low-risk patients, but is recommended for high-risk patients. Postsurgical changes from right upper lobectomy. Emphysema. Recommend evaluation for annual lung cancer screening enrollment if the patient qualifies based on clinical factors and smoking history. Coronary artery calcifications. Incompletely healed subacute right anterolateral 5th and 6th rib fractures. THIS IS AN ELECTRONICALLY VERIFIED FINAL REPORT 06/25/2024 7:58 AM - Electronically signed by Vel Kong M.D. CH: CHANCE Report ID: [id number] Reading Location: [id number] Procedure Note Vel Kong Jr., MD - 06/25/2024 EXAM DESCRIPTION: CT CHEST WO CONTRAST REASON FOR STUDY: Lung nodule, > 8mm Follow up pulmonary nodules Hx of right upper lung surgery in 2021 Prev scans in [facility] TECHNIQUE: CT scan of the chest performed without intravenous contrastusing helical scanning technique. Reconstructed coronal and sagittal MPR images reviewed. All images stored on PACS. Automated exposure control was usedas a dose optimization technique for this examination. COMPARISON: 04/26/2024 (report not available). Correlation is also madewith a chest CT 04/11/2024. FINDINGS: The sensitivity for detection of solid visceral lesions is diminishedwithout the use of intravenous contrast. LUNGS: Postsurgical changes are seen from right upper lobectomy.Emphysema is noted. In the posterior aspect right lung there is a spiculatednodule, this is 1.3 x 0.9 cm (image 36), this has significantly increased in size previously 0.5 cm as remeasured. There is bibasilar mild fibrosis. Thereis persistent but diminished patchy opacities in the lung bases, in the leftbase some of the previous areas of nodularity and masslike opacity havediminished. There is a remaining nodular area of opacity 2.8 x 1.7 cm (image 70 whichis slightly more consolidative compared with the opacity previously seen atthis location. An example of a previous masslike opacity which has resolved inthe left lower lobe was previously 3.5 x 1.9 cm. There is hazy opacity curvilinear in the left upper lobe possibly postradiation change but nonspecific. PLEURA: No pleural effusion or pneumothorax. MEDIASTINUM/OLGA: No mediastinal or hilar mass. There arecalcifications most pronounced left hilum. Calcification subcarinal station. HEART: Heart size normal. No pericardial effusion. CORONARY ARTERY CALCIFICATION: Coronary artery calcifications are noted. VASCULATURE: Ascending thoracic aorta 3.6 cm which is nonaneurysmal. AXILLA: No axillary lymphadenopathy. CHEST WALL: No chest wall mass or subcutaneous emphysema. HARDWARE/LINES/TUBES: None. UPPER ABDOMEN: In the included upper abdomen, no significantabnormalities are seen. MUSCULOSKELETAL: Bone windows demonstrate no acute or aggressive osseous abnormality. There are defects of the right 5th and 6th ribs slightly displaced incompletely healed evidence of subacute fracture. OTHER: No other significant abnormality. IMPRESSION: Spiculated nodule in the posterior aspect of the right lung 1.3 x 0.9 cm, significantly increased in size from the prior study. This is suspiciousfor possible malignancy although slightly atypical given the very rapidgrowth. Further assessment could be made with a PET-CT. Persistent but diminished patchy opacities in the lung bases, some of the previous areas of nodularity and masslike opacity have diminished. Thereis a remaining nodular area of opacity 2.8 x 1.7 cm which is slightly more consolidative compared with the opacity previously seen at this location. Continued follow-up recommended. Per Fleischner Society Guidelines, non-contrast chest CT at 3 to 6 months is recommended. If the nodules are stable at time of repeat CT, then future CT at 18 to 24 months (fromtoday's scan) is considered optional for low-risk patients, but is recommended for high-risk patients. Postsurgical changes from right upper lobectomy. Emphysema. Recommend evaluation for annual lung cancer screeningenrollment if the patient qualifies based on clinical factors and smoking history. Coronary artery calcifications. Incompletely healed subacute right anterolateral 5th and 6th ribfractures. THIS IS AN ELECTRONICALLY VERIFIED FINAL REPORT 06/25/2024 7:58 AM - Electronically signed by Vel Kong M.D. CH: CHANCE Report ID: [id number] Reading Location: [id number] Frankie Cardoso MD [facility] [place] PROCEDURES Final Result * XR Chest 1 View (05/21/2024 3:13 PM PLIER WORKER) Anatomical Region Laterality Modality Body, Chest N/A Computed Radiogr aphy 05/23/2024 11:2 9 AM PLIER WORKER Narrative 05/23/2024 11:32 AM PLIER WORKER EXAM DESCRIPTION: XR CHEST 1 VIEW REASON FOR STUDY: pain Post op bronchoscopy TECHNIQUE: Frontal radiographic view(s) of the chest. COMPARISON: 11/24/2022. chest CT 04/26/2024. FINDINGS: LUNGS: There is volume loss of the right hemithorax which is postsurgical with suture material noted along the hilum. There is blunting the right costophrenic sulcus with opacity which appears to be due to fibrotic change as seen on the recent chest CT. Fibrotic change in the left lung base as seen on the chest CT increased from the prior radiograph. Linear scarring or atelectasis in the left mid lung. HEART/MEDIASTINUM: Heart size is prominent but unchanged. Hilar fullness similar to the prior study. LINES/TUBES: None. BONES: No acute osseous abnormality. IMPRESSION: No evidence of an acute cardiopulmonary abnormality. Postsurgical changes of the right hemithorax. Bibasilar fibrotic change. THIS IS AN ELECTRONICALLY VERIFIED FINAL REPORT 05/23/2024 11:32 AM - Electronically signed by Vel Kong M.D. CH: CHANCE Report ID: [id number] Reading Location: [id number] Procedure Note Vel Kong Jr., MD - 05/23/2024 EXAM DESCRIPTION: XR CHEST 1 VIEW REASON FOR STUDY: pain Post op bronchoscopy TECHNIQUE: Frontal radiographic view(s) of the chest. COMPARISON: 11/24/[address]22. chest CT 04/26/2024. FINDINGS: LUNGS: There is volume loss of the right hemithorax which is postsurgical with suture material noted along the hilum. There is blunting the right costophrenic sulcus with opacity which appears to be due to fibroticchange as seen on the recent chest CT. Fibrotic change in the left lung base asseen on the chest CT increased from the prior radiograph. Linear scarring or atelectasis in the left mid lung. HEART/MEDIASTINUM: Heart size is prominent but unchanged. Hilar fullness similar to the prior study. LINES/TUBES: None. BONES: No acute osseous abnormality. IMPRESSION: No evidence of an acute cardiopulmonary abnormality. Postsurgical changes of the right hemithorax. Bibasilar fibrotic change. THIS IS AN ELECTRONICALLY VERIFIED FINAL REPORT 05/23/2024 11:32 AM - Electronically signed by Vel Kong M.D. CH: CHNACE Report ID: [id number] Reading Location: [place] [address] Frankie Cardoso MD IMG XR PROCEDURES Final Result * [place] AN ELECTIVE ENDOTRACHEAL AIRWAY (05/21/2024 2:01 PM PLIER WORKER) Narrative Rafaela Gross CRNA - 05/21/2024 2:01 PM PLIER WORKER Rafaela Gross CRNA 05/21/2024 2:01 PM Airway Patient location: OR Urgency: elective Indications for airway management: anesthesia and airway protection Difficult airway: no Staff: Supervising provider: Ish Batista MD Placed by: CHRISTMAS TREE GROWER: Rafaela Gross CRNA Emergent airway documentation: Risks and benefits discussed: yes Consent obtained: yes Consent given by: patient Airway prep: Preoxygenated: yes Patient position: sniffing Mask difficulty assessment: 1 - vent by mask Spontaneous ventilation during airway: absent Sedation level during airway: GA Final airway details: Final airway type: endotracheal airway Tube type: ETT ETT size: 8.5 mm Cuffed: yes Technique used for successful ETT placement: video laryngoscopy Devices/Methods used in placement: intubating stylet Insertion site: oral Blade type: Rosa Video blade type: Alcantara Blade size: 3 Cormack-Lehane (video): grade I - full view of glottis Cuff inflated with: air ETT to lips: 22 cm Placement verified by: auscultation and CO2 detection Airway secured with: silk tape Number of attempts: 1 us Ish Batista MD ANESTHESIA ORDERABLES Final Result * Cytology (05/21/2024 12:00 AM PLIER WORKER) Lymph Node (Cytology) 05/21/2024 05/21/2024 3:05 PM PLIER WORKER Narrative 05/26/2024 12:03 PM PLIER WORKER EPIC results best viewed via link to PDF [facility] Department of Pathology [address] [place] [id number] Note to Patients: This report may contain [...] can answer questions and explain the details. Final Report Patient Name: DARRION GUILLORY Address: [address] [place] [address] Gender: F : 1950 (Age: 73) Service: Surgery Location: [facility] Hospital # [id number] Patient Type: [facility] Taken: 05/21/2024 Received: 05/21/2024 Accessioned: 05/21/2024 Reported: 05/26/2024 Physician(s): Frankie Cardoso M.D. Diagnosis: A. Lung, left lower lobe nodule, fine needle aspiration: - Blood and fibrin with a few admixed groups of epithelial cells with anthracotic pigment. - Negative for significant cytologic atypia and malignancy. B. Lymph node, station 4L, fine needle aspiration: - Scattered mature lymphocytes and occasional groups of respiratory epithelial cells. - Negative for malignant cells. Galen Peralta M.D. Report Electronically Reviewed and Signed Out By Galen Peralta M.D. 05/26/2024 12:03:22REINALDO Samuel(ASCP)Specimen(s) Received: A: FNA, Endobronchial ultrasound-guided, Left lower lobe B: FNA, Endobronchial ultrasound-guided, Station 4L Clinical History: The patient is a 73 year old female with malignant neoplasm of both lungs. Immediate Assessment: Site A: Left lower lobe lung Pass #1, diagnosis: Occasional respiratory epithelial cells. Pass #2, diagnosis: Occasional respiratory epithelial cells and dark pigment. Pass #3, diagnosis: Rare respiratory epithelial cells. Pass #4, diagnosis: Rare respiratory epithelial cells. Julian Harmon MD Gross Description: A: 1 container labeled Left Lower Lobe Nodule received with 40 cc pink fluid. 6 slides received from 3 passes. Entire specimen processed. 1 ThinPrep and 1 cell block made. B: 1 container labeled Station 4L received with 35 cc pink fluid. No immediate assessment performed. Entire specimen processed. 1 ThinPrep and 1 cell block made. Microscopic Description: A. Sections show blood and fibrin with admixed debris and occasional groups of benign-appearing respiratory epithelial cells. Some focal groups of cells with anthracotic pigment and admixed epithelial cells are seen compatible with lung parenchyma. There is no significant cytologic atypia or evidence of malignancy present. Review of the cell block shows blood and fibrin with a few admixed inflammatory cells without a significant epithelial cell component appreciated. Additionally, a small panel of immunohistochemical stains was performed with adequate controls. A pancytokeratin AE1/AE3 shows no significant staining. A CD45 is positive in scattered inflammatory cells present. B. Sections show scattered mature lymphocytes with occasional groups of respiratory epithelial cells. No groups of malignant epithelial cells are appreciated. Additionally, a small panel of immunohistochemical stains was performed with adequate controls on the cell block. A pancytokeratin AE1/AE3 is positive in a few scattered respiratory epithelial cells. A CD45 is positive in scattered lymphoid cells present. No malignant cells are identified. The performance characteristics of some immunohistochemical stains, fluorescence in-situ hybridization tests and immunophenotyping by flow cytometry cited in this report (if any) were determined by the Surgical Pathology Department at [facility] as part of an ongoing software quality tester program and in compliance with federally mandated regulations drawn from the Clinical Laboratory Improvement Act of 1988 (CLIA '88). Some of these tests rely on the use of analyte specific reagents and are subject to specific labeling requirements by the US Food and Drug Administration. Such diagnostic tests may only be performed in a facility that is certified by the Department of Health and Human Services as a high complexity laboratory under CLIA '88. The FDA has determined that such clearance or approval is not necessary. This test is used for clinical purposes. It should not be regarded as investigational or for research. Nevertheless, federal rules concerning the medical use of analyte specific reagents require that the following disclaimer be attached to the report: This test was developed and its performance characteristics determined by the Surgical Pathology Department [facility]. It has not been cleared or approved by the U. S. Food and Drug Administration. Unless otherwise noted all cytology processing, staining and screening is performed at [facility] ([address] [place] [address]). REPORT IMAGES AND SCANNED DOCUMENTS, IF INCLUDED, ONLY VIEWABLE IN PDF VERSION OF REPORT Frankie Cardoso MD LAB CYTOLOGY ORDERABLES Final Re sult * Hepatitis panel, acute (02/28/2021 10:09 AM PLIER WORKER) Hep A IgM NON-REACTI VE NON-REACT MARIANNA [facility] Comment: For additional information, please refer to http://[employer].TSB/faq/XFE523 (This link is being provided for informational/ [...] a test for HCV RNA (test code 64247) is suggested. For additional information please refer to http://[employer].TSB/faq/JQV63g0 (This link is being provided for informational/ educational purposes only.) Blood specimen (specimen) 02/28/2021 10:09 AM PLIER WORKER 02/28/2021 10:15 AM PLIER WORKER us Martina JONES LAB MICROBIOLOGY - GE NERAL ORDERABLES Final Result [facility] [address] [place] [id number] from Last 3 Months or Most Recently Relevant to Health Maintenance Insurance [facility] Advance Directives For more information, please contact: [phone] * Full Code (Latest Code Status on File) Date Activated Date Inactivated Comments 09/12/2021 4:12 PM 09/14/2021 4:07 PM Care Teams Air Conditioning Supervisor Relationship Specialty Start Date End Date Terry Bender DO [address] [place] [address] PCP - General Internal Medicine 12/07/23 Wilmer Taylor MD [address] [facility] [address] [place] [address] Referring Physician Obstetrics and Gynecology 05/09/12 Jeffrey Koch MD [address] [place] [address] Consulting Physician Rheumatology 02/03/21 Luz Lewis MD [address] [place] [address] Referring Physician Surgery 12/14/21 Raleigh Jay MD PhD [address] [place] [address] Radiation Oncologist Radiation Oncology 12/12/22 Ranjan Cazares MD [address] [facility] [address] [place] [address] Surgeon Thoracic Surgery 12/12/22
--- OUTSIDE RECORDS SUMMARY | 2024-08-09 11:12 | XMS_ITS | Clinical Summary ---
Author Organization [facility] Address [address] [place] [address] Care Team Providers Care Screw Machine Setter Name Role Phone Wilmer Taylor MD Unavailable [phone] Jeffrey Koch MD Unavailable [phone] Luz Lewis MD Unavailable [phone] Raleigh Jay MD PhD Unavailable [phone] Ranjan Cazares MD Unavailable [phone] Terry Bender DO Primary Care Provider [phone] Allergies Active Allergy Reactions Criticality Noted Date [...] by mouth daily after lunch Active omega 2-qif-xkg-fish oil 100-160-1,000 mg capsuleIndicati ons:hypertrigly ceridemia Take [...] PRN. Assessment & Plan (05/21/2023 12:22 PM INTERPRETER TRANSLATOR): Pain overlying right lateral chest wall. TTP [...] (11/21/2021): Added automatically from request for surgery [id number] Bronchogenic lung cancer, right 09/12/2021 COPD (chronic obstructive pulmonary disease) Assessment & Plan (09/12/2021 4:10 PM CDT): - cont inhalers - wean O2 as tolerated History of lobectomy of lung 09/01/2021 Overview (09/01/2021): Added automatically from request for surgery [id number] residential current use 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 drug 2021 Assessment & Plan (04/17/2024 9:13 AM INTERPRETER TRANSLATOR): Hepatitis negative: 02/2021 Assessment & Plan (10/08/2023 9:05 AM CDT): Hepatitis negative: 02/2021 Assessment & Plan (07/09/2023 9:21 AM CDT): Hepatitis negative: 02/2021 Assessment & Plan (05/21/2023 10:12 AM INTERPRETER TRANSLATOR): Hepatitis negative: 02/2021 Assessment & Plan (02/12/2023 11:59 AM CDT): Hepatitis negative: 02/2021 Assessment & Plan (10/09/2022 1:07 PM CDT): Hepatitis negative: 02/2021 Assessment & Plan (05/15/2022 10:43 AM INTERPRETER TRANSLATOR): Hepatitis negative: 02/2021 Assessment & Plan (01/16/2022 10:56 AM CDT): Hepatitis negative: 02/2021 Assessment & Plan (10/17/2021 12:11 PM CDT): Hepatitis negative: 02/2021 Assessment & Plan (06/20/2021 10:12 AM INTERPRETER TRANSLATOR): Hepatitis negative: 02/2021 Rheumatoid arthritis 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 Seropositive RA (+RF, CCP) [...] needed. Assessment & Plan (05/21/2023 12:18 PM INTERPRETER TRANSLATOR): Low cdai. Seropositive RA (+RF, CCP) that [...] needed. Assessment & Plan (05/15/2022 10:55 AM INTERPRETER TRANSLATOR): Low cdai. Seropositive RA (+RF, CCP) that [...] needed. Assessment & Plan (06/20/2021 10:11 AM INTERPRETER TRANSLATOR): Seropositive RA (+RF, CCP) that remains well controlled with MTX 12.5mg weekly. Main complaints are pain involving the R 4th PIP joints and cervical spine which are degenerative however is responding well to Voltaren gel otc. Will continue MTX 12.5mg weekly and folic acid 1mg daily.Routine labs today. Follow up in 3 months. Sooner if needed. Assessment & Plan (03/14/2021 10:50 AM INTERPRETER TRANSLATOR): Seropositive RA (+RF, CCP) that remains well [...] Koch. Assessment & Plan (02/28/2021 9:54 AM INTERPRETER TRANSLATOR): 70-year-old female with PMHx of HTN, COPD, [...] 02/28/2021 Assessment & Plan (04/17/2024 9:13 AM INTERPRETER TRANSLATOR): Pain worse with activity and improved with [...] PM&R. Assessment & Plan (05/21/2023 12:11 PM INTERPRETER TRANSLATOR): Pain worse with activity and improved with [...] exercises. Assessment & Plan (05/15/2022 10:43 AM INTERPRETER TRANSLATOR): Pain worse with activity and improved with [...] exercises. Assessment & Plan (06/20/2021 10:11 AM INTERPRETER TRANSLATOR): Pain worse with activity and improved with rest. Denies radiating pain. 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 Patient defers PT and worried about NSAIDs with her current medication regimen. Taking tylenol otc prn with some relief. Using Voltaren gel otc prn with good relief. Continue home exercises. Assessment & Plan (03/14/2021 10:52 AM INTERPRETER TRANSLATOR): Pain worse with activity and improved with [...] pain. Assessment & Plan (02/28/2021 9:57 AM INTERPRETER TRANSLATOR): Pain worse with activity and improved with [...] Description 07/07/2024 8:30 AM CDT Office Visit [facility] Pulmonary at [address] [address] Frankie Cardoso MD Chronic obstructive pulmonary disease, unspecified COPD type (HCC) (Primary Dx); Pulmonary nodules; Malignant neoplasm of lower lobe, right bronchus or lung (HCC); Malignant neoplasm of upper lobe, left bronchus or lung (HCC); Malignant neoplasm of upper lobe, right bronchus or lung (HCC) 07/03/2024 8:53 AM CDT - 07/03/2024 11:59 PM CDT Hospital Encounter [facility] [address] [place] [address] Chronic obstructive pulmonary disease, unspecified COPD type (HCC) Discharge Disposition: Discharge to home or self care 06/21/2024 11:17 AM INTERPRETER TRANSLATOR - 06/21/2024 11:59 PM INTERPRETER TRANSLATOR Hospital Encounter [facility] [address] [place] [address] Pulmonary nodules Discharge Disposition: Discharge to home or self care 06/20/2024 Telephone [facility] [address] [place] [address] Taz Sultana 06/17/2024 Telephone [facility] Pulmonary at [address] [place] [address] Nilsa Ayala LPN Appt reminder, PFT 05/28/2024 Telephone [facility] Pul[facility] at [address] [place] [address] Nilsa Ayala LPN Repeat CT 05/27/2024 Orders Only [facility] Pulmonary at [address] [place] [address] Frankie Cardoso MD Pulmonary nodules (Primary Dx) 05/21/2024 1:37 PM INTERPRETER TRANSLATOR Anesthesia Event [facility] Operating Room [address] [place] [address] Ish Batista MD McDowell, Juri Osmell, MD 05/21/2024 1:30 PM INTERPRETER TRANSLATOR - 05/21/2024 3:20 PM INTERPRETER TRANSLATOR Surgery [facility] [address] [place] [address] Frankie Cardoso MD BRONCHOSCOPY WITH RADIAL ENDOBRONCHIAL ULTRASOUND AND LINEAR ENDOBRONCHIAL ULTRASOUND GUIDED FINE NEEDLE ASPIRATE, LEFT LOWER LOBE NODULE AND STATION 4L 05/21/2024 12:03 PM INTERPRETER TRANSLATOR - 05/21/2024 4:10 PM INTERPRETER TRANSLATOR Hospital Encounter [facility] [address] [place] [address] Frankie Cardoso MD Malignant neoplasm of both lungs (HCC) (Primary Dx) Discharge Disposition: Discharge to home or self care 05/15/2024 Orders Only [facility] Pulmonary at [address] [address] Frankie Cardoso MD 05/13/2024 9:00 AM INTERPRETER TRANSLATOR Office Visit [facility] Pulmonary at [address] [place] [address] Frankie Cardoso MD Chronic obstructive pulmonary disease, unspecified COPD type (HCC) (Primary Dx); Pulmonary nodules; Malignant neoplasm of lower lobe, right bronchus or lung (HCC); Malignant neoplasm of upper lobe, left bronchus or lung (HCC); Malignant neoplasm of upper lobe, right bronchus or lung (HCC) from Last 3 Months Immunizations Immunization Administration Dates Next Due Influenza, Quadrivalent, Kaylen l Culture-based MDCK, Preservative Free, Antibiotic Free, Intramuscular 02/01/2020 Influenza, Quadrivalent, Spl it, Intramuscular 02/12/2019 Influenza, Trivalent, High D ose, Split, Preservative Free, Intramuscular 01/31/2018,01/28/2017,02/18/2014 Influenza, Unspecified 03/03/2013 Moderna SARS-CoV-2 Monovalen t Vaccination (12+ YRS) 03/19/2021,07/13/2020,06/22/2020 Pneumococcal Polysaccharide PPV23 05/07/2017 ZOSTER LIVE 01/16/2018,11/08/2017,06/23/2009 Surgical History Surgery Date Site/Laterality Comments NV UNLISTED PROCEDURE BREAST 04/23/1977 - 04/22/1978 Right Cyst removed from R breast RHINOPLASTY 04/23/1989 - 04/22/1990 Deviated septum OVARY SURGERY 04/23/1994 - 04/22/1995 Cyst x2 removed from overies VULVA SURGERY 03/28/2012 HAWA III excision VULVA SURGERY 03/04/2013 HAWA III excision VULVA SURGERY 11/10/2018 HAWA III excision VULVA SURGERY 04/08/2019 HAWA III excision BREAST SURGERY Right LUNG LOBECTOMY Right COLONOSCOPY LUNG BIOPSY Medical History Medical History Date Comments Personal history of other di seases of the circulatory system History of hypertension - (A dded by TW Conv) Hypertension Arthritis COPD (chronic obstructive pu lmonary disease) (HCC) Lung cancer (HCC) [address] nds of radiation, one in the right lung and one in the left lung Vulva cancer (HCC) Osteoporosis Arrhythmia Atrial Fibrillat ion- diagnosed on 04-26-2024 Family History Medical History Relation Name Comments [...] on file Legal Sex Female 10:10 AM INTERPRETER TRANSLATOR Gender Identity Not on file Sexual Orientation [...] 07/07/2024 8:30 AM CDT Plan of Treatment Health Maintenance Due Date Last Done Comments Depression Screening 1950 Osteoporosis Screening-Bone Density Scan 1950 DTaP/Tdap/Td Vaccine (1 - Tdap) 1959 Hepatitis B Screening 1966 Well Visit 65+ 2013 Zoster Vaccine (1 of 2) 03/13/2018 01/17/20 18, 11/08/2017, 06/23/2009 Pneumococcal vaccine 65+ (2 of 2 - PCV) 05/07/2018 05/07/2017 Fall Risk Assessment 12/13/2023 12/12/2022, 11/25/19 23 Covid-19 Vaccine (2023-2 5 season) 2023 03/19/2021, 03/19/2021, 07/13/2020, Additional history exists Influenza Vaccine (Season Ended) 2024 01/27/2022, 01/26/2021, 02/01/2020, Additional history exists Hepatitis C Screening Completed 02/28/2021 Procedures Procedure Name Priority Date/Time Associated Diagnosis Comments PULMONARY FUNCTION TEST (PFT) Routine 07/03/2024 10:12 AM CDT Chronic obstructive pulmonary disease, unspecified COPD type (HCC) CT CHEST WO CONTRAST Schedule Routine, Read Routine (OP Routine) 06/21/2024 11:50 AM INTERPRETER TRANSLATOR Pulmonary nodules XR CHEST 1 VIEW IP Routine 05/21/2024 3:13 PM INTERPRETER TRANSLATOR Malignant neoplasm of both lungs (HCC) NV AN ELECTIVE ENDOTRACHEAL AIRWAY Routine 05/21/2024 2:01 PM INTERPRETER TRANSLATOR BRONCHOSCOPY ENDOBRONCHIAL ULTRASOUND 05/21/2024 1:22 PM INTERPRETER TRANSLATOR Malignant neoplasm of both lungs (HCC) CYTOLOGY Routine 05/21/2024 12:00 AM INTERPRETER TRANSLATOR HEPATITIS PANEL, ACUTE Routine 02/28/2021 10:09 AM INTERPRETER TRANSLATOR 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 factor (HCC) Fatigue, unspecified type buttermaker helper current use 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 drug from Last [...] saturation with ambulation. Electronically signed by Kain Wesley, Pulmonary & Critical Care Narrative 07/04/2024 9:54 AM CDT PULMONARY FUNCTION TESTS Darrion Guilloyr 74 y.o. 07/04/2024 INTERPRETATION Please see technologist's [...] CT chest without contrast (06/21/2024 11:50 AM INTERPRETER TRANSLATOR) Anatomical Region Laterality Modality Body N/A Computed Tomogra phy 06/25/2024 7:52 AM INTERPRETER TRANSLATOR Narrative 06/25/2024 7:58 AM INTERPRETER TRANSLATOR EXAM DESCRIPTION: CT CHEST WO CONTRAST REASON [...] Vel Kong M.D. CH: CHANCE Report ID: [id number] Reading Location: [id number] Procedure Note Vel Kong Jr., MD - [...] Vel Kong M.D. CH: CHANCE Report ID: [id number] Reading Location: [id number] Frankie Cardoso MD [facility] PROCEDURES Final Result * XR Chest 1 View (05/21/2024 3:13 PM INTERPRETER TRANSLATOR) Anatomical Region Laterality Modality Body, Chest N/A Computed Radiogr aphy 05/23/2024 11:2 9 AM INTERPRETER TRANSLATOR Narrative 05/23/2024 11:32 AM INTERPRETER TRANSLATOR EXAM DESCRIPTION: XR CHEST 1 VIEW REASON [...] by Vel Kong M.D. CH: Report ID: [id number] Reading Location: [place] [address] Procedure Note Vel Kong Jr., MD - [...] Vel Kong M.D. CH: CHANCE Report ID: [id number] Reading Location: [place] [address] us Frankie Cardoso MD IMG XR PROCEDURES Final Result * NV AN ELECTIVE ENDOTRACHEAL AIRWAY (05/21/2024 2:01 PM INTERPRETER TRANSLATOR) Narrative Rafaela Gross CRNA - 05/21/2024 2:01 PM INTERPRETER TRANSLATOR Rafaela Gross CRNA 05/21/2024 2:01 PM Airway Patient location: OR Urgency: elective Indications for airway management: anesthesia and airway protection Difficult airway: no Staff: Supervising provider: Ish Batista MD Placed by: DERMATOLOGY TEACHER: Rafaela Gross CRNA Emergent airway documentation: Risks [...] Final Result * Cytology (05/21/2024 12:00 AM INTERPRETER TRANSLATOR) Lymph Node (Cytology) 05/21/2024 05/21/2024 3:05 PM INTERPRETER TRANSLATOR Narrative 05/26/2024 12:03 PM INTERPRETER TRANSLATOR EPIC results best viewed via link to PDF [facility] Department of Pathology [address] [place] [address] Note to Patients: This report may contain [...] Final Report Patient Name: DARRION GUILLORY Address: [address] [place] [address] Gender: F : 1950 (Age: 73) Service: Surgery Location: [facility] Hospital # [id number] Patient Type: [facility] Taken: 05/21/2024 Received: 05/21/2024 Accessioned: 05/21/2024 Reported: [...] determined by the Surgical Pathology Department at [facility] as part of an ongoing quality control program and in compliance with federally mandated [...] characteristics determined by the Surgical Pathology Department [facility]. It has not been cleared or approved by the U. S. Food and Drug Administration. Unless otherwise noted all cytology processing, staining and screening is performed at [facility] ([address] [place] [address]). REPORT IMAGES AND SCANNED DOCUMENTS, IF INCLUDED, ONLY VIEWABLE IN PDF VERSION OF REPORT us Frankie Cardoso MD LAB CYTOLOGY ORDERABLES Final Re sult * Hepatitis panel, acute (02/28/2021 10:09 AM INTERPRETER TRANSLATOR) Hep A IgM NON-REACTI VE NON-REACT MARIANNA [facility] Comment: For additional information, please refer to http://[employer].ENEFpro/faq/WWU952 (This link is being provided for informational/ [...] a test for HCV RNA (test code 30849) is suggested. For additional information please refer to http://[employer].ENEFpro/faq/WPU69w0 (This link is being provided for informational/ educational purposes only.) Blood specimen (specimen) 02/28/2021 10:09 AM INTERPRETER TRANSLATOR 02/28/2021 10:15 AM INTERPRETER TRANSLATOR Martina JONES LAB MICROBIOLOGY - GE NERAL ORDERABLES Final Result [facility] [address] [address] from Last 3 Months or Most Recently Relevant to Health Maintenance Insurance [facility] HEALTHCARE Advance Directives For more information, please contact: [phone] * Full Code (Latest Code Status on File) Date Activated Date Inactivated Comments 09/12/2021 4:12 PM 09/14/2021 4:07 PM Care Teams Screw Machine Setter Relationship Specialty Start Date End Date Terry Bender DO [address] [place] [address] PCP - General Internal Medicine 12/07/23 Wilmer Taylor MD [address] [facility] [address] [place] [address] Referring Physician Obstetrics and Gynecology 05/09/12 Jeffrey Koch MD [address] [place] [address] Consulting Physician Rheumatology 02/03/21 Luz Lewis MD [address] [place] [address] Referring Physician Surgery 12/14/21 Raleigh Jay MD PhD [address] [place] [address] Radiation Oncologist Radiation Oncology 12/12/22 Ranjan Cazares MD [address] [facility] [address] [place] [address] Surgeon Thoracic Surgery 12/12/22
--- OUTSIDE RECORDS SUMMARY | 2024-08-09 11:12 | XMS_ITS | CONTINUITY OF CARE DOCUMENT ---
Author Name michael rodriguez Address Unknown Organization [facility] Address [address] [facility] [address] [place] [address] Phone [phone] Care Team Providers Care Trim Line Worker Name Role Phone Levon Proctor MD Unavailable [phone] Levon Proctor MD Unavailable [phone] INSURANCE PROVIDERS Payer name Policy type / Coverage type [employer] [employer] party ID [facility] HMO Other [id number]
== END 2024-08-09 11:10 | disposition home or self-care (01) ==
PROVIDERS: PCP Nurse Practitioner; Visit Provider Internal Medicine
DX: Z12.31 Encounter for screening mammogram for malignant neoplasm of breast (principal)
CPT/HCPCS: 77063; 77067

== ENCOUNTER 2024-10-26 18:05 | Emergency (ER) | payer OTHER, SELFPAY ==
--- NOTE | ~2024-10-26 | CT_ITS ---
EXAMINATION: CT brain wo con DATE: 10/26/2024 19:24 INDICATION: unwitnessed fall . TECHNIQUE: Computed tomography (CT) of the head was performed without intravenous contrast. The mA wa s adjusted according to patient size. Iterative reconstruction technique was employed. The dose-lengt h product was 605.33 mGy-cm. COMPARISON: 06/07/2022. FINDINGS: No acute intracranial hemorrhage or extra-axial fluid collection. No hydrocephalus, mass, or herniation. No acute ischemic infarct. Unremarkable dural venous sinus attenuation. No acute osseous abnormality. The aerated spaces are clear. Mild atrophy and chronic white matter change. Atherosclerotic intracranial calcification. Bilateral l ens replacements. IMPRESSION: No acute intracranial process. Reviewed, dictated and finalized at location K.
--- NOTE | ~2024-10-26 | XR_ITS ---
EXAM: XR ankle LT min 3V DATE: 10/26/2024 18:41 HISTORY: swelling, pain . COMPARISON: X-ray left foot 06/16/2020. FINDINGS: Decreased. No acute fracture or dislocation. Irregular transverse sclerosis across the tib ial metaphysis. No periosteal elevation. Mild scattered degenerative changes. Achilles and plantar en thesopathy. No erosion or periosteal change. Anterior soft tissue swelling. No significant ankle join t effusion. IMPRESSION: Osteopenia. No acute displaced fracture detected. Tibial metaphysis sclerosis, may represent artifact or stress fracture. If there is distal tibial zander n or pain while weightbearing, consider conservative management and MRI for further evaluation. Anterior soft tissue swelling, possibly involving the dorsal flexor tendons. Reviewed, dictated and finalized at location K. IMPRESSION: Osteopenia. No acute displaced fracture detected. Tibial metaphysis sclerosis, may represent artifact or stress fracture. If ther e is distal tibial pain or pain while weightbearing, consider conservative viral gement and MRI for further evaluation. Anterior soft tissue swelling, possibly involving the dorsal flexor tendons.
--- OUTSIDE RECORDS SUMMARY | 2024-10-26 18:08 | XMS_ITS | Referral Summary ---
Author Organization [facility] Address [address] [place] [address] Care Team Providers Care Manager Athletics Name Role Phone Wilmer Taylor MD Unavailable [phone] Jeffrey Koch MD Unavailable [phone] Luz Lewis MD Unavailable [phone] Raleigh estrada MD PhD Unavailable [phone] Ranjan Cazares MD Unavailable Terry Bender DO Primary Care Provider Martina Elizabeth Unavailable Encounters Date Type Department Care Team Description 10/22/2024 Telephone [facility] Pulmonary at [address] [place] [address] Nilsa Ayala LPN [employer] question 10/20/2024 11:00 AM CDT Office Visit [facility] Pulmonary at [address] [place] [address] Deborah Palafox NP Centrilobular emphysema (HCC) (Primary Dx); Pulmonary nodules; 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 factor (HCC) 10/11/2024 9:00 AM CDT - 10/11/2024 11:59 PM CDT Hospital Encounter [address] [address] Pulmonary nodules Discharge Disposition: Discharge to home or self care 10/10/[address] [address] Taz Sultana 09/12/2024 Results Follow-Up [facility] [address] [place] [phone] Martina Elizabeth PA Comprehensive metabolic panel, CBC with auto differential, Erythrocyte sedimentation rate, CRP (acute phase) 09/11/2024 9:15 AM CDT Office Visit [facility] [address] [place] [phone] Martina Elizabeth PA 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 factor (HCC) (Primary Dx); Rheumatoid arthritis with rheumatoid factor of multiple sites without organ or systems involvement (HCC); 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; 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; Lung nodule 08/18/2024 9:15 AM CDT Office Visit [facility] Pulmonary at [address] [place] [phone] Frankie Cardoso MD Pulmonary nodules (Primary Dx); Chronic obstructive pulmonary disease, unspecified COPD type (HCC); Malignant neoplasm of lower lobe, right bronchus or lung (HCC); Malignant neoplasm of upper lobe, left bronchus or lung (HCC); Malignant neoplasm of upper lobe, right bronchus or lung (HCC); Chronic respiratory failure with hypoxia (HCC) 08/16/2024 10:29 AM CDT - 08/16/2024 11:59 PM CDT Hospital Encounter [address] [address] Pulmonary nodules Discharge Disposition: Discharge to home or self care 08/15/[address] [address] Taz Sultana from Last 3 Months Allergies Active Allergy [...] by mouth daily after lunch Active omega 5-ecd-cjh-fish oil 100-160-1,000 mg capsuleIndicati ons:hypertrigly ceridemia Take [...] mg total) by mouth daily 3 Active Stiolto Respimat 2.5-2.5 mcg/actuation inhaler Inhale [...] Take 2 each by mouth daily Active methotrexate 2.5 mg tabletIndicatio ns:Rheumatoid Arthritis Take 5 tablets (12.5 mg total) by mouth every 7 days 60 tablet 1 5 Active folic acid (FOLVITE) 1 mg tabletIndicatio ns:Folate Deficiency TAKE 1 TABLET (1 MG TOTAL) BY MOUTH DAILY AFTER LUNCH 90 tablet 3 5 Active Active Problems Patient Care Coordination No [...] PRN. Assessment & Plan (05/21/2023 12:22 PM TEMPERATURE REGULATOR): Pain overlying right lateral chest wall. TTP [...] by Raleigh Jay MD PhD on 12/12/2022 Pulmonary nodules 12/07/2022 Assessment & Plan (10/20/2024 2:31 PM CDT): While some have appeared to decrease in size or resolved there are multiple new bilateral pulmonary consolidations and densities. This is not consistent with malignancy however we have discussed further investigation with a bronchoscopy with biopsies and she agrees. She is aware she should hold her apixaban 48 hours preprocedure Assessment & Plan (09/11/2024 10:35 AM CDT): Monitored by pulm Dr. Cardoso. Hx malignant nodule s/p resection and radiation. Recent bronchoscopy (04/2024) negative for malignancy but with multiple new acute nodules suspected to be infectious vs inflammatory. Finished round of abx and repeating CT 10/11 w/ pulm f/u on 10/20. If nodules are not improved, then next step is possible steroids for presumed inflammatory lung nodules. -Discussed hx of RA and possibility for inflammatory nodules; however RA appears well controlled at this time. -Advised to continue pulmonology's plan and will await CT results. -If nodules are found to be from RA, then could consider adjusting treatment for RA with either addition of AZA vs Cellcept. Hilar adenopathy 11/13/2022 AIN grade III 11/21/2021 Overview (11/21/2021): Added automatically from request for surgery [id number] Bronchogenic lung cancer, right 09/12/2021 COPD (chronic obstructive pulmonary disease) Assessment & Plan (10/20/2024 2:34 PM CDT): Continue Trelegy Ellipta 100 one puff daily at the same time Continue albuterol as needed only, we have discussed indications for use We need an alpha-1 buccal swab We have discussed signs and symptoms that would require earlier evaluation or a change to her plan of care Assessment & Plan (09/12/2021 4:10 PM CDT): - cont inhalers - wean O2 as tolerated History of lobectomy of lung 09/01/2021 Overview (09/01/2021): Added automatically from request for surgery [id number] 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 2021 Assessment & Plan (09/11/2024 8:57 AM CDT): Hepatitis negative: 02/2021 Assessment & Plan (04/17/2024 9:13 AM TEMPERATURE REGULATOR): Hepatitis negative: 02/2021 Assessment & Plan (10/08/2023 9:05 AM CDT): Hepatitis negative: 02/2021 Assessment & Plan (07/09/2023 9:21 AM CDT): Hepatitis negative: 02/2021 Assessment & Plan (05/21/2023 10:12 AM TEMPERATURE REGULATOR): Hepatitis negative: 02/2021 Assessment & Plan (02/12/2023 11:59 AM CDT): Hepatitis negative: 02/2021 Assessment & Plan (10/09/2022 1:07 PM CDT): Hepatitis negative: 02/2021 Assessment & Plan (05/15/2022 10:43 AM TEMPERATURE REGULATOR): Hepatitis negative: 02/2021 Assessment & Plan (01/16/2022 10:56 AM CDT): Hepatitis negative: 02/2021 Assessment & Plan (10/17/2021 12:11 PM CDT): Hepatitis negative: 02/2021 Assessment & Plan (06/20/2021 10:12 AM TEMPERATURE REGULATOR): Hepatitis negative: 02/2021 Rheumatoid arthritis involvi ng both hands with positive rheumatoid factor 02/28/2021 Overview (03/01/2021): Labs (02/28/2021): Cr 0.98, WBC 11.4, ESR 37, CRP 3.8 Hepatitis negative: 02/2021 Assessment & Plan (10/20/2024 2:32 PM CDT): Continue methotrexate once weekly Continue following with Rheumatology Assessment & Plan (09/11/2024 10:41 AM CDT): Cdai in remission. Seropositive RA (+RF, CCP) [...] check routine labs today. -Follow up in 2-3 months. Sooner if needed. Assessment & Plan (04/17/2024 9:44 AM TEMPERATURE REGULATOR): Cdai in remission. Seropositive RA (+RF, CCP) [...] needed. Assessment & Plan (05/21/2023 12:18 PM TEMPERATURE REGULATOR): Low cdai. Seropositive RA (+RF, CCP) that [...] needed. Assessment & Plan (05/15/2022 10:55 AM TEMPERATURE REGULATOR): Low cdai. Seropositive RA (+RF, CCP) that [...] needed. Assessment & Plan (06/20/2021 10:11 AM TEMPERATURE REGULATOR): Seropositive RA (+RF, CCP) that remains well controlled with MTX 12.5mg weekly. Main complaints are pain involving the R 4th PIP joints and cervical spine which are degenerative however is responding well to Voltaren gel otc. Will continue MTX 12.5mg weekly and folic acid 1mg daily.Routine labs today. Follow up in 3 months. Sooner if needed. Assessment & Plan (03/14/2021 10:50 AM TEMPERATURE REGULATOR): Seropositive RA (+RF, CCP) that remains well [...] Koch. Assessment & Plan (02/28/2021 9:54 AM TEMPERATURE REGULATOR): 70-year-old female with PMHx of HTN, COPD, [...] Koch. Neck pain 02/28/2021 Assessment & Plan (09/11/2024 8:57 AM CDT): Pain worse with activity and improved with rest. Denies radiating pain. 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 Patient defers PT and worried about NSAIDs with her current medication regimen. Taking tylenol otc prn, voltaren gel, and CBD cream with some relief. -Continue home exercises. -Previously ordered repeat XR to better evaluate for any progression of degenerative changes but has not done this and will defer for now as she defers PT or injections per PM&R. Assessment & Plan (04/17/2024 9:13 AM TEMPERATURE REGULATOR): Pain worse with activity and improved with [...] PM&R. Assessment & Plan (05/21/2023 12:11 PM TEMPERATURE REGULATOR): Pain worse with activity and improved with [...] exercises. Assessment & Plan (05/15/2022 10:43 AM TEMPERATURE REGULATOR): Pain worse with activity and improved with [...] exercises. Assessment & Plan (06/20/2021 10:11 AM TEMPERATURE REGULATOR): Pain worse with activity and improved with rest. Denies radiating pain. 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 Patient defers PT and worried about NSAIDs with her current medication regimen. Taking tylenol otc prn with some relief. Using Voltaren gel otc prn with good relief. Continue home exercises. Assessment & Plan (03/14/2021 10:52 AM TEMPERATURE REGULATOR): Pain worse with activity and improved with [...] pain. Assessment & Plan (02/28/2021 9:57 AM TEMPERATURE REGULATOR): Pain worse with activity and improved with [...] on file Legal Sex Female 10:10 AM TEMPERATURE REGULATOR Gender Identity Not on file Sexual Orientation Not on file Last Filed Vital Signs Vital Sign Reading Time Taken Comments Blood Pressure 132/72 10/20/2024 10:50 AM CDT Pulse 92 10/20/2024 10:50 AM CDT Temperature 36.6 C (97.9 F) 10/20/2024 10:50 AM CDT Respiratory Rate 18 10/20/2024 10:50 AM CDT Oxygen Saturation 92% 10/20/2024 10:50 AM CDT Inhaled Oxygen Concentration - - Weight 55.3 kg (122 lb) 10/20/2024 10:50 AM CDT Height 162.6 cm (5' 4) 10/20/2024 10:50 AM CDT Body Mass Index 20.94 10/20/2024 10:50 AM CDT Plan of Treatment Not on file Procedures Procedure Name Priority Date/Time Associated Diagnosis Comments CT CHEST WO CONTRAST Schedule Routine, Read Routine (OP Routine) 10/11/2024 9:14 AM CDT Pulmonary nodules CRP (ACUTE PHASE) Routine 09/11/2024 9:4 9 AM CDT 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 factor (HCC) 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 ERYTHROCYTE SEDIMENTATION RATE Routine 09/11/2024 9:49 AM CDT 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 factor (HCC) 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 CBC WITH AUTO DIFFERENTIAL Routine 09/11/2024 9:49 AM CDT 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 factor (HCC) residential current use 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 drug COMPREHENSIVE METABOLIC PANEL Routine 09/11/2024 9:49 AM CDT 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 factor (HCC) residential current use 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 drug CT CHEST WO CONTRAST Schedule Routine, Read Routine (OP Routine) 08/16/2024 10:39 AM CDT Pulmonary nodules HEPATITIS PANEL, ACUTE Routine 02/28/2021 10:09 AM TEMPERATURE REGULATOR 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 factor (HCC) Fatigue, unspecified type residential current use 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 drug from Last 3 Months or Most Recently Relevant to Health Maintenance Results * CT chest without contrast (10/11/2024 9:14 AM CDT) Anatomical Region Laterality Modality Body N/A Computed Tomogra phy 10/24/2024 2:42 PM CDT Narrative 10/24/2024 2:56 PM CDT EXAM DESCRIPTION: CT CHEST WO CONTRAST REASON FOR STUDY: Lung nodule, > 8mm Follow up nodule Hx of right lung cancer(right upper lobectomy 2021) 2 radiation treatments in 2022 / no chemo Prev scan 08/16/2024 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 Clinical oaa-hkvuq-gvky lung cancer right lower lobe status post SBRT completed January 13. Clinical non-small lung cancer left upper lobe status post SBRT completed August 2023. Bronchoscopy on 05/21/2024 and sampling of the left lower lobe nodule and 4R lymph node negative for malignancy. TECHNIQUE: CT scan of the chest performed without intravenous contrast using helical scanning technique. Reconstructed coronal and sagittal MPR images reviewed. All images stored on PACS. Automated exposure control was used as a dose optimization technique for this examination. COMPARISON: 01/02/2024, 08/16/2024, 06/21/2024, 04/11/2024, 11/30/2023 REFERENCE: Per ACR white paper recommendations, unless otherwise specified no follow-up imaging is recommended for incidental renal and adrenal lesions per consensus recommendations based on imaging criteria. Further lab evaluation could be pursued based on clinical findings. FINDINGS: The sensitivity for detection of solid visceral lesions is diminished without the use of intravenous contrast. HARDWARE/LINES/TUBES: None. VASCULATURE: Multifocal atherosclerotic changes of the thoracic aorta and its major branches without aneurysm. Borderline dilated main pulmonary artery measuring approximately 3.0 cm. MEDIASTINUM/HEART: Heart size within normal limits. No significant pericardial effusion. Esophagus is unremarkable. CORONARY ARTERY CALCIFICATION: Advanced multivessel atherosclerotic calcifications. LYMPH NODES: No pathologically enlarged thoracic lymphadenopathy. AIRWAY: Central airways are patent. LUNGS: Status post right upper lobectomy. Background of ynidivzz-mb-ewtfny emphysematous changes. Bilateral lung base scarring. Interval increase in size and number bilateral pulmonary nodules with index nodules including: New or increased posterior left upper lobe 2.9 x 2.7 cm nodule (3; 24). Increased central left upper lobe 2.8 x 2.2 cm nodule (3; 38). New anterior left upper lobe 2.1 x 2.0 cm nodule (3; 40). Trace bilateral pleural effusions with subjacent atelectasis. No pneumothorax. UPPER ABDOMEN: No acute abnormality of the visualized abdomen. BONES/SOFT TISSUES: Multilevel degenerative changes of the visualized spine. Chronic minimally displaced right anterior rib fractures. No aggressive appearing osseous lesions. No acute osseous abnormality. Normal-appearing thyroid. IMPRESSION: 1. Interval increase in size and number of bilateral pulmonary nodules. Rapid development of multiple large pulmonary nodules could reflect infectious/inflammatory etiology. However, findings remain suspicious for metastatic disease. Recommend continued attention on follow-up versus tissue sampling as clinically appropriate. 2. Trace bilateral pleural effusions. THIS IS AN ELECTRONICALLY VERIFIED FINAL REPORT 10/24/2024 2:56 PM - Electronically signed by Christian Molina M.D. 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 Clinical ehp-jhepp-qyak lung cancer right lower lobe status post SBRT completed January 13. Clinical non-small lung cancer left upper lobe status postSBRT completed August 2023. Bronchoscopy on 05/21/2024 and sampling of the leftlower lobe nodule and 4R lymph node negative for malignancy. TECHNIQUE: CT scan of the chest performed without intravenous contrastusing helical scanning technique. Reconstructed coronal and sagittal MPR images reviewed. All images stored on PACS. Automated exposure control was usedas a dose optimization technique for this examination. COMPARISON: 01/02/2024, 08/16/2024, 06/21/2024, 04/11/2024, 11/30/2023 REFERENCE: Per ACR white paper recommendations, unless otherwise specifiedno follow-up imaging is recommended for incidental renal and adrenal lesionsper consensus recommendations based on imaging criteria. Further labevaluation could be pursued based on clinical findings. FINDINGS: The sensitivity for detection of solid visceral lesions is diminishedwithout the use of intravenous contrast. HARDWARE/LINES/TUBES: None. VASCULATURE: Multifocal atherosclerotic changes of the thoracic aorta andits major branches without aneurysm. Borderline dilated main pulmonary artery measuring approximately 3.0 cm. MEDIASTINUM/HEART: Heart size within normal limits. No significant pericardial effusion. Esophagus is unremarkable. CORONARY ARTERY CALCIFICATION: Advanced multivessel atherosclerotic calcifications. LYMPH NODES: No pathologically enlarged thoracic lymphadenopathy. AIRWAY: Central airways are patent. LUNGS: Status post right upper lobectomy. Background kvxyolndmz-qp-udjvrm emphysematous changes. Bilateral lung base scarring. Interval increasein size and number bilateral pulmonary nodules with index nodulesincluding: New or increased posterior left upper lobe 2.9 x 2.7 cm nodule (3; 24). Increased central left upper lobe 2.8 x 2.2 cm nodule (3; 38). New anterior left upper lobe 2.1 x 2.0 cm nodule (3; 40). Trace bilateral pleural effusions with subjacent atelectasis. No pneumothorax. UPPER ABDOMEN: No acute abnormality of the visualized abdomen. BONES/SOFT TISSUES: Multilevel degenerative changes of the visualizedspine. Chronic minimally displaced right anterior rib fractures. No aggressive appearing osseous lesions. No acute osseous abnormality.Normal-appearing thyroid. IMPRESSION: 1. Interval increase in size and number of bilateral pulmonary nodules. Rapid development of multiple large pulmonary nodules could reflect infectious/inflammatory etiology. However, findings remain suspicious for metastatic disease. Recommend continued attention on follow-up versustissue sampling as clinically appropriate. 2. Trace bilateral pleural effusions. THIS IS AN ELECTRONICALLY VERIFIED FINAL REPORT 10/24/2024 2:56 PM - Electronically signed by Christian Molina M.D. NS: NS Report ID: [id number] Reading Location: [place] [address] Frankie Cardoso MD [facility] CT PROCEDURES Final Result * (ABNORMAL) CBC with auto differential (09/11/2024 9:49 AM CDT) WBC 9.0 3.8 - 10.8 Thousand/u L [facility] RBC, POC 3.63(L) 3.80 - 5.10 Million/uL [facility] Hgb 11.1(L) 11.7 - 15.5 g/dL [facility] Hct 35.2 35.0 - 45.0 % [facility] MCV 97.0 80.0 - 100.0 fL [facility] MCH 30.6 27.0 - 33.0 pg [facility] MCHC 31.5(L) 32.0 - 36.0 g/dL [facility] Comment: For adults, a slight decrease in the calculated MCHC value (in the range of 30 to 32 g/dL) is most likely not clinically significant; however, it should be interpreted with caution in correlation with other red cell parameters and the patient's clinical condition. Rdw 14.7 11.0 - 15.0 % [facility] Platelets 294 140 - 400 Thousand/u L [facility] MPV 9.7 7.5 - 12.5 fL [facility] Neutrophils, abs 6,768 1,500 - 7,800 cells/uL [facility] Lymphocytes, abs 1,332 850 - 3,900 cells/uL [facility] Monocyte abs 675 200 - 950 cells/uL [facility] Eosinophils, abs 126 15 - 500 cells/uL [facility] Basophils, abs 99 0 - 200 cells/uL [facility] Neutrophils 75.2 % [facility] Lymphocyte pct 14.8 % [facility] Monocytes 7.5 % [facility] Eosinophils 1.4 % [facility] Basophils 1.1 % [facility] Blood 09/11/2024 9:49 AM CDT 09/11/2024 9:49 AM CDT Martina JONES LAB BLOOD ORDERABLES Final Result [facility] [address] [address] [place] [id number] * (ABNORMAL) Erythrocyte sedimentation rate (09/11/2024 9:49 AM CDT) Pathologist [facility] Erythrocyte sedimentation rate 41(H) < OR = 30 mm/h [facility] Blood 09/11/2024 9:49 AM CDT 09/11/2024 9:49 AM CDT Martina JONES LAB BLOOD ORDERABLES Final Result Performing Organization Address City/[facility]/ZIP Co de Phone Number [facility] [address] [place] [address] * (ABNORMAL) CRP (acute phase) (09/11/2024 9:49 AM CDT) [facility] C-RP 23.4(H) <8.0 mg/L [facility] Blood 09/11/2024 9:49 AM CDT 09/11/2024 9:49 AM CDT Martina JONES LAB BLOOD ORDERABLES Final Result Performing Organization Address [facility] Co de Phone Number [facility] [address] [place] [address] * (ABNORMAL) Comprehensive metabolic panel (09/11/2024 9:49 AM CDT) [facility] Glucose 109(H) 65 - 99 mg/dL [facility] Comment: Fasting reference interval For someone without known diabetes, a glucose value between 100 and 125 mg/dL is consistent with prediabetes and should be confirmed with a follow-up test. BUN 19 7 - 25 mg/dL [facility] Creatinine 0.85 0.60 - 1.00 mg/dL [facility] eGFR 71 > OR = 60 mL/min/1.7 3m2 [facility] BUN/creat ratio SEE NOTE: (calc) [facility] Comment: Not Reported: BUN and Creatinine are within reference range. Sodium 142 135 - 146 mmol/L [facility] Potassium, pl 4.0 3.5 - 5.3 mmol/L [facility] Chloride 104 98 - 110 mmol/L [facility] CO2 28 20 - 32 mmol/L [facility] Calcium 9.1 8.6 - 10.4 mg/dL [facility] Protein, sr 6.1 6.1 - 8.1 g/dL [facility] Albumin 3.7 3.6 - 5.1 g/dL [facility] GLOBULIN 2.4 1.9 - 3.7 g/dL (calc) [facility] Alb/glob ratio 1.5 1.0 - 2.5 (calc) [facility] Bilirubin, total 0.5 0.2 - 1.2 mg/dL [facility] Alk phos 64 37 - 153 U/L [facility] AST 12 10 - 35 U/L [facility] ALT (SGPT) 8 6 - 29 U/L [facility] Blood 09/11/2024 9:49 AM CDT 09/11/2024 9:49 AM CDT us Martina JONES LAB BLOOD ORDERABLES Final Result [facility] [address] [place] [address] * CT chest without contrast (08/16/2024 10:39 AM CDT) Anatomical Region Laterality Modality Body N/A Computed Tomogra phy 08/27/2024 8:47 AM CDT Narrative 08/27/2024 9:01 AM CDT EXAM DESCRIPTION: CT CHEST WO CONTRAST REASON FOR STUDY: Lung nodule, > 8mm Follow up pulmonary nodular Rt upper lobe removed due to cancer in 2021 COPD Patient is on oxygen Prev scan 06/21/2024 TECHNIQUE: CT scan of the chest performed without intravenous contrast using helical scanning technique. Reconstructed coronal and sagittal MPR images reviewed. All images stored on PACS. Automated exposure control was used as a dose optimization technique for this examination. COMPARISON: 06/21/2024 FINDINGS: The sensitivity for detection of solid visceral lesions is diminished without the use of intravenous contrast. LUNGS: Postoperative changes from partial right pneumonectomy. The indeterminate pleural consolidation within the inferior right lung abutting the diaphragm is not definitively changed compared to the prior examination measuring approximately 3 cm (63). There does appear to be some increase in indeterminate masslike consolidation within the right lung base which is obscured by effusion (75). An irregular nodule within the right lower lobe measuring approximately 9 x 7 mm, previously measured approximately 12 x 9 mm (36). New and enlarging left lung nodules are noted. For reference is a 5 mm subpleural left upper lobe nodule (20). New 5 mm central left upper lobe nodule (28). Increased nodular consolidation within the anterior left upper lobe measuring 1.7 x 1.6 cm (38). New 1.3 cm lingula nodule (43). A 3.0 x 1.9 cm pleural left lower lobe nodule previously was more report solid measuring 2.9 x 1.3 cm (67). New/increased consolidation is also noted within the left lung base. The largest component measures approximately 4.1 x 2.1 cm, previously approximately 1.7 x 2.8 cm. Increased clustered nodularity is also noted within the superior segment. PLEURA: Trace bilateral pleural effusions. Pleural nodularity and thickening is again noted. MEDIASTINUM/OLGA: There shift of the mediastinal structures to the right. Grossly stable 10 mm left paratracheal lymph node (32).. Calcified hilar lymph nodes are seen as evidence for old granulomas disease. HEART: The heart is normal in size. Small pericardial effusion. Pleural metastatic disease abuts the pericardium. CORONARY ARTERY CALCIFICATION: Present VASCULATURE: No thoracic aortic aneurysm. AXILLA: No adenopathy. CHEST WALL: No masses. No subcutaneous air. HARDWARE/LINES/TUBES: None. UPPER ABDOMEN: Calcified granulomas within the spleen. MUSCULOSKELETAL: Unchanged right 4th, 5th and 6th rib deformities. No acute fracture. Heterogeneity of the bones is unchanged. OTHER: No other significant abnormality. IMPRESSION: 1. New and enlarging left lung nodules as evidence for progression of disease. 2. Postoperative changes from right pneumonectomy. Slight increase in irregular consolidation within the right lung base. 3. No gross thoracic lymphadenopathy. THIS IS AN ELECTRONICALLY VERIFIED FINAL REPORT 08/27/2024 9:01 AM - Electronically signed by Maninder Boone M.D. 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 Reconstructed coronal and sagittal MPR images reviewed. All images stored on PACS. Automated exposure control was usedas a dose optimization technique for this examination. COMPARISON: 06/21/2024 FINDINGS: The sensitivity for detection of solid visceral lesions is diminishedwithout the use of intravenous contrast. LUNGS: Postoperative changes from partial right pneumonectomy. The indeterminate pleural consolidation within the inferior right lungabutting the diaphragm is not definitively changed compared to the priorexamination measuring approximately 3 cm (63). There does appear to be some increasein indeterminate masslike consolidation within the right lung base which is obscured by effusion (75). An irregular nodule within the right lowerlobe measuring approximately 9 x 7 mm, previously measured approximately 12 x 9mm (36). New and enlarging left lung nodules are noted. For reference is a5 mm subpleural left upper lobe nodule (20). New 5 mm central left upper lobe nodule (28). Increased nodular consolidation within the anterior leftupper lobe measuring 1.7 x 1.6 cm (38). New 1.3 cm lingula nodule (43). A 3.0x 1.9 cm pleural left lower lobe nodule previously was more report solid measuring 2.9 x 1.3 cm (67). New/increased consolidation is also notedwithin the left lung base. The largest component measures approximately 4.1 x2.1 cm, previously approximately 1.7 x 2.8 cm. Increased clustered nodularityis also noted within the superior segment. PLEURA: Trace bilateral pleural effusions. Pleural nodularity and thickening is again noted. MEDIASTINUM/OLGA: There shift of the mediastinal structures to theright. Grossly stable 10 mm left paratracheal lymph node (32).. Calcified hilar lymph nodes are seen as evidence for old granulomas disease. HEART: The heart is normal in size. Small pericardial effusion.Pleural metastatic disease abuts the pericardium. CORONARY ARTERY CALCIFICATION: Present VASCULATURE: No thoracic aortic aneurysm. AXILLA: No adenopathy. CHEST WALL: No masses. No subcutaneous air. HARDWARE/LINES/TUBES: None. UPPER ABDOMEN: Calcified granulomas within the spleen. MUSCULOSKELETAL: Unchanged right 4th, 5th and 6th rib deformities. Noacute fracture. Heterogeneity of the bones is unchanged. OTHER: No other significant abnormality. IMPRESSION: 1. New and enlarging left lung nodules as evidence for progression of disease. 2. Postoperative changes from right pneumonectomy. Slight increase in irregular consolidation within the right lung base. 3. No gross thoracic lymphadenopathy. THIS IS AN ELECTRONICALLY VERIFIED FINAL REPORT 08/27/2024 9:01 AM - Electronically signed by Maninder Boone M.D. AG: AG Report ID: [id number] Reading Location: [place] [address] Frankie Cardoso MD IM CT PROCEDURES Final Result * Hepatitis panel, acute (02/28/2021 10:09 AM TEMPERATURE REGULATOR) Hep A IgM NON-REACTI VE NON-REACT MARIANNA [facility] Comment: For additional information, please refer to http://education.Blue Pillar.Design A/faq/DGP201 (This link is being provided for informational/ [...] a test for HCV RNA (test code 41752) is suggested. For additional information please refer to http://education.Blue Pillar.Design A/faq/ALK08j1 (This link is being provided for informational/ educational purposes only.) Blood specimen (specimen) 02/28/2021 10:09 AM TEMPERATURE REGULATOR 02/28/2021 10:15 AM TEMPERATURE REGULATOR Martina JONES LAB MICROBIOLOGY - [facility] ORDERABLES Final Result [facility] [address] [place] [id number] from Last 3 Months or Most Recently Relevant to Health Maintenance Insurance HEALTHCARE HE[employer]CARE HEALTHCARE Member Subscriber Plan / Payer ( fective 2014-Present) Name:Darrion Guillory Relation to Subscriber:Self Name:Darrion Guillory Payer ID:[id number] (NAIC) Type:MEDICARE RISK OTHER Address: [address] [place] [id number] HEALTHCARE Member Subscriber Plan / Payer ( fective 2014-Present) Name:Darrion Guillory Relation to Subscriber:Self Name:Darrion Guillory Payer ID:[id number] (NAIC) Type:MEDICARE RISK OTHER Address: [address] [place] [id number] Advance Directives For more information, please contact: [phone] * Full Code (Latest Code Status on File) Date Activated Date Inactivated Comments 09/12/2021 4:12 PM 09/14/2021 4:07 PM Care Teams Manager Athletics Relationship Specialty Start Date End Date Terry Bender DO [address] [facility] [address] [place] [address] PCP - General Internal Medicine 12/07/23 Wilmer Taylor MD [address] [facility] [address] [place], [place] [address] Referring Physician Obstetrics and Gynecology 05/09/12 Jeffrey Koch MD [address] [place] [address] Consulting Physician Rheumatology 02/03/21 Luz Lewis MD [address] [place] [address] Referring Physician Surgery 12/14/21 Raleigh Jay MD PhD [address] [place] [address] Radiation Oncologist Radiation Oncology 12/12/22 Ranjan Cazares MD [address] [place] [address] Surgeon Thoracic Surgery 12/12/22 Martina Elizabeth PA [address] [place] [address] Physician Recreation Manager Rheumatology 10/20/24
--- OUTSIDE RECORDS SUMMARY | 2024-10-26 18:08 | XMS_ITS | Encounter Summary ---
Author Organization [facility] log[facility] Address [address] [place] [address] Phone Care Team Providers Care Promotions Firm Accounts Manager Name Role Phone Wilmer Taylor MD Unavailable [phone] Jeffrey Koch MD Unavailable [phone] Luz Lewis MD Unavailable [phone] [facility] CampusR[facility] MD PhD Unavailable [phone] Ranjan Cazares MD Unavailable [phone] Terry Bender DO Primary Care Provider [phone] Martina Elizabeth Unavailable Encounter Details Date Type Department Care Team (Latest Contact Info) Description 09/12/2024 Results Follow-Up [facility] [address] [place] [address] Martina Elizabeth PA [address] [place] [address] Comprehensive metabolic panel, CBC with auto differential, Erythrocyte sedimentation rate, CRP (acute phase) Social History Tobacco Use Types Packs/Day Years [...] on file Legal Sex Female 10:10 AM OPERATIONS PROCESSOR Gender Identity Not on file Sexual Orientation Not on file documented as of this encounter Plan of Treatment Not on file documented as of this encounter Visit Diagnoses Not on filedocumented in this encounter Care Teams Promotions Firm Accounts Manager Relationship Specialty Start Date End Date Terry Bender DO [address] [place], [place] [id number] PCP - General Internal Medicine 12/07/23 Wilmer Taylor MD [address] [facility] [address] [place] [address] Referring Physician Obstetrics and Gynecology 05/09/12 Jeffrey Koch MD [address] [place] [address] Consulting Physician Rheumatology 02/03/21 Luz Lewis MD [address] [place] [address] Referring Physician Surgery 12/14/21 Raleigh Jay MD PhD [address] [place] [address] Radiation Oncologist Radiation Oncology 12/12/22 Ranjan Cazares MD [address] [place] [address] Surgeon Thoracic Surgery 12/12/22 Martina Elizabeth PA [address] [place] [address] Physician Communications Agent Rheumatology 10/20/24 documented as of this encounter
--- OUTSIDE RECORDS SUMMARY | 2024-10-26 18:08 | XMS_ITS | Clinical Summary ---
Author Organization [facility] Address [address] [place] [address] Care Team Providers Care Getter Welder Name Role Phone Wilmer Taylor MD Unavailable [phone] Jeffrey Koch MD Unavailable [phone] Luz Lewis MD Unavailable [phone] Raleigh estrada MD PhD Unavailable [phone] Ranjan Cazares MD Unavailable Terry Bender DO Primary Care Provider [phone] Martina Elizabeth Unavailable Allergies Active Allergy Reactions Criticality Noted Date [...] by mouth daily after lunch Active omega 3-uzz-yvj-fish oil 100-160-1,000 mg capsuleIndicati ons:hypertrigly ceridemia Take [...] PRN. Assessment & Plan (05/21/2023 12:22 PM PATROL AGENT): Pain overlying right lateral chest wall. TTP [...] (11/21/2021): Added automatically from request for surgery [id number] Bronchogenic lung cancer, right 09/12/2021 COPD (chronic [...] (09/01/2021): Added automatically from request for surgery [id number] skilled nursing current use 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 drug 2021 Assessment & Plan (09/11/2024 8:57 AM CDT): Hepatitis negative: 02/2021 Assessment & Plan (04/17/2024 9:13 AM PATROL AGENT): Hepatitis negative: 02/2021 Assessment & Plan (10/08/2023 9:05 AM CDT): Hepatitis negative: 02/2021 Assessment & Plan (07/09/2023 9:21 AM CDT): Hepatitis negative: 02/2021 Assessment & Plan (05/21/2023 10:12 AM PATROL AGENT): Hepatitis negative: 02/2021 Assessment & Plan (02/12/2023 11:59 AM CDT): Hepatitis negative: 02/2021 Assessment & Plan (10/09/2022 1:07 PM CDT): Hepatitis negative: 02/2021 Assessment & Plan (05/15/2022 10:43 AM PATROL AGENT): Hepatitis negative: 02/2021 Assessment & Plan (01/16/2022 10:56 AM CDT): Hepatitis negative: 02/2021 Assessment & Plan (10/17/2021 12:11 PM CDT): Hepatitis negative: 02/2021 Assessment & Plan (06/20/2021 10:12 AM PATROL AGENT): Hepatitis negative: 02/2021 Rheumatoid arthritis involvi ng [...] needed. Assessment & Plan (04/17/2024 9:44 AM PATROL AGENT): Cdai in remission. Seropositive RA (+RF, CCP) [...] needed. Assessment & Plan (05/21/2023 12:18 PM PATROL AGENT): Low cdai. Seropositive RA (+RF, CCP) that [...] needed. Assessment & Plan (05/15/2022 10:55 AM PATROL AGENT): Low cdai. Seropositive RA (+RF, CCP) that [...] needed. Assessment & Plan (06/20/2021 10:11 AM PATROL AGENT): Seropositive RA (+RF, CCP) that remains well controlled with MTX 12.5mg weekly. Main complaints are pain involving the R 4th PIP joints and cervical spine which are degenerative however is responding well to Voltaren gel otc. Will continue MTX 12.5mg weekly and folic acid 1mg daily.Routine labs today. Follow up in 3 months. Sooner if needed. Assessment & Plan (03/14/2021 10:50 AM PATROL AGENT): Seropositive RA (+RF, CCP) that remains well [...] Koch. Assessment & Plan (02/28/2021 9:54 AM PATROL AGENT): 70-year-old female with PMHx of HTN, COPD, [...] PM&R. Assessment & Plan (04/17/2024 9:13 AM PATROL AGENT): Pain worse with activity and improved with [...] PM&R. Assessment & Plan (05/21/2023 12:11 PM PATROL AGENT): Pain worse with activity and improved with [...] exercises. Assessment & Plan (05/15/2022 10:43 AM PATROL AGENT): Pain worse with activity and improved with [...] exercises. Assessment & Plan (06/20/2021 10:11 AM PATROL AGENT): Pain worse with activity and improved with rest. Denies radiating pain. 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 Patient defers PT and worried about NSAIDs with her current medication regimen. Taking tylenol otc prn with some relief. Using Voltaren gel otc prn with good relief. Continue home exercises. Assessment & Plan (03/14/2021 10:52 AM PATROL AGENT): Pain worse with activity and improved with [...] pain. 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) 10/11/2024 9:00 AM CDT - 10/11/2024 11:59 PM CDT Hospital Encounter [address] [address] Pulmonary nodules Discharge Disposition: Discharge to home or self care 10/10/[address] [address] Taz Sultana 09/12/2024 Results Follow-Up [facility] [address] [place] [phone] Martina Elizabeth PA Comprehensive metabolic panel, CBC with auto differential, Erythrocyte sedimentation rate, CRP (acute phase) 09/11/2024 9:15 AM CDT Office Visit [facility] [address] [place] [phone] Martina Elizabeth PA 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 factor (HCC) (Primary Dx); Rheumatoid arthritis with rheumatoid factor of multiple sites without organ or systems involvement (HCC); Neck pain; salvage determiner current use 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 drug; Lung nodule 08/18/2024 9:15 AM CDT Office Visit [facility] at [address] [address] Frankie Cardoso MD Pulmonary nodules (Primary Dx); Chronic obstructive pulmonary disease, unspecified COPD type (HCC); Malignant neoplasm of lower lobe, right bronchus or lung (HCC); Malignant neoplasm of upper lobe, left bronchus or lung (HCC); Malignant neoplasm of upper lobe, right bronchus or lung (HCC); Chronic respiratory failure with hypoxia (HCC) 08/16/2024 10:29 AM CDT - 08/16/2024 11:59 PM CDT Hospital Encounter [address] [address] Pulmonary nodules Discharge Disposition: Discharge to home or self care 08/15/2024 Telephone [facility] [address] [place] [address] Taz Sultana from Last 3 Months Immunizations Immunization Administration Dates Next Due Influenza, Quadrivalent, Kaylen l Culture-based MDCK, Preservative Free, Antibiotic Free, Intramuscular 02/01/2020 Influenza, Quadrivalent, Spl it, Intramuscular 02/12/2019 Influenza, Trivalent, High D ose, Split, Preservative Free, Intramuscular 01/31/2018,01/28/2017,02/18/2014 Influenza, Unspecified 03/03/2013 Moderna SARS-CoV-2 Monovalen t Vaccination (12+ YRS) 03/19/2021,07/13/2020,06/22/2020 Pneumococcal Polysaccharide PPV23 05/07/2017 ZOSTER LIVE 01/16/2018,11/08/2017,06/23/2009 Surgical History Surgery Date Site/Laterality Comments UT UNLISTED PROCEDURE BREAST 04/23/1977 - 04/22/1978 Right [...] on file Legal Sex Female 10:10 AM PATROL AGENT Gender Identity Not on file Sexual Orientation [...] 10/20/2024 10:50 AM CDT Plan of Treatment Health Maintenance Due Date Last Done Comments Depression Screening 1950 Osteoporosis Screening-Bone Density Scan 1950 DTaP/Tdap/Td Vaccine (1 - Tdap) 1959 Hepatitis B Screening 1966 Well Visit 65+ 2013 Zoster Vaccine (1 of 2) 03/13/2018 01/17/20 18, 11/08/2017, 06/23/2009 Pneumococcal vaccine 65+ (2 of 2 - PCV) 05/07/2018 05/07/2017 Fall Risk Assessment 12/13/2023 12/12/2022, 11/25/19 23 Covid-19 Vaccine (7 2023-2 5 season) 2023 03/19/2021, 03/19/2021, 07/13/2020, Additional history exists Influenza Vaccine (#1) 2024 2, 01/26/2021, 02/01/2020, Additional history exists Hepatitis C Screening Completed 02/28/2021 Procedures Procedure Name Priority Date/Time Associated Diagnosis Comments CT CHEST WO CONTRAST Schedule Routine, Read Routine (OP Routine) 10/11/2024 9:14 AM CDT Pulmonary nodules CRP (ACUTE PHASE) Routine 09/11/2024 9:4 9 AM CDT 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 factor (HCC) skilled nursing current use 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 drug ERYTHROCYTE SEDIMENTATION RATE Routine 09/11/2024 9:49 AM CDT 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 factor (HCC) salvage determiner current use 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 drug CBC WITH AUTO DIFFERENTIAL Routine 09/11/2024 9:49 AM CDT 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 factor (HCC) salvage determiner current use 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 drug COMPREHENSIVE METABOLIC PANEL Routine 09/11/2024 9:49 AM CDT 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 Clinical vvg-iwpnk-tcdy lung cancer right lower lobe status post [...] Status post right upper lobectomy. Background of tlrmgegb-qc-rvokwb emphysematous changes. Bilateral lung base scarring. Interval [...] Christian Molina M.D. NS: NS Report ID: [id number] Reading Location: [id number] Procedure Note Christian Molina MD - 10/24/2024 [...] and lymph node dissection September 11. Clinical thl-bjrja-sauq lung cancer right lower lobe status post [...] LUNGS: Status post right upper lobectomy. Background mefpcxsycd-tk-ucxnoh emphysematous changes. Bilateral lung base scarring. Interval [...] Christian Molina M.D. NS: NS Report ID: [id number] Reading Location: [id number] Frankie Cardoso MD IM CT PROCEDURES Final Result * (ABNORMAL) CBC [...] LAB BLOOD ORDERABLES Final Result [facility] [address] [place] [phone] * (ABNORMAL) Erythrocyte sedimentation rate (09/11/2024 9:49 AM CDT) Erythrocyte sedimentation rate 41(H) < OR = 30 mm/h [facility] Blood 09/11/2024 9:49 AM CDT 09/11/2024 9:49 AM CDT Martina JONES LAB BLOOD ORDERABLES Final Result Performing Organization Address [facility] Co de Phone Number [facility] [address] [place] [address] * (ABNORMAL) CRP (acute phase) (09/11/2024 9:49 AM CDT) C-RP 23.4(H) <8.0 mg/L [facility] Blood 09/11/2024 9:49 AM CDT 09/11/2024 9:49 AM CDT Martina JONES LAB BLOOD ORDERABLES Final Result Performing Organization Address [facility] de Phone Number [facility] [address] [place] [address] * (ABNORMAL) Comprehensive metabolic panel (09/11/2024 9:49 AM CDT) Glucose 109(H) 65 - 99 [...] LAB BLOOD ORDERABLES Final Result [facility] [address] [place] [address] * CT chest without contrast (08/16/2024 10:39 [...] 08/27/2024 9:01 AM - Electronically signed by Maninderkike Boone M.D. AG: ALISHA Report ID: [id number] Reading Location: [id number] Procedure Note Maninder Boone MD - 08/27/2024 EXAM DESCRIPTION: CT CHEST WO CONTRAST REASON FOR STUDY: Lung nodule, > 8mm Follow up pulmonary nodular Rt upper lobe removed due to cancer in 2COPD Patient is on oxygen Prev scan 06/21/2024 [...] Maninder Boone M.D. AG: AG Report ID: [id number] Reading Location: [place] [address] Frankie Cardoso MD IM CT PROCEDURES Final Result * Hepatitis panel, acute (02/28/2021 10:09 AM PATROL AGENT) Hep A IgM NON-REACTI VE NON-REACT MARIANNA [facility] Comment: For additional information, please refer to http://ClariPhy Communications.KOJI Drinks/faq/BJD150 (This link is being provided for informational/ [...] a test for HCV RNA (test code 68941) is suggested. For additional information please refer to http://education.KOJI Drinks/faq/GIN20w9 (This link is being provided for informational/ educational purposes only.) Blood specimen (specimen) 02/28/2021 10:09 AM PATROL AGENT 02/28/2021 10:15 AM PATROL AGENT Martina JOENS LAB MICROBIOLOGY - [facility] ORDERABLES Final Result Performing Organization Address City/State/[facility] Co nd Phone Number [facility] [address] [place] [address] from Last 3 Months or Most Recently Relevant to Health Maintenance Insurance HEALTHCARE HEALTHCARE HEALTHCARE Member Subscriber Plan / Payer ( fective 2014-Present) Name:Darrion Guillory Relation to Subscriber:Self Name:Darrion Guillory Payer ID:[id number] (NAIC) Type:MEDICARE RISK OTHER Address: [address] [place] [id number] [facility] Advance Directives For more information, please contact: [phone] * Full Code (Latest Code Status on File) Date Activated Date Inactivated Comments 09/12/2021 4:12 PM 09/14/2021 4:07 PM Care Teams Getter Welder Relationship Specialty Start Date End Date Terry Bender DO [address] [place], [place] [id number] PCP - General Internal Medicine 12/07/23 Wilmer Taylor MD [address] [facility] [address] [place] [address] Referring Physician Obstetrics and Gynecology 05/09/12 Jeffrey Koch MD [address] [place] [address] Consulting Physician Rheumatology 02/03/21 Luz Lewis MD [address] [place] [address] Referring Physician Surgery 12/14/21 Raleigh Jay MD PhD [address] [place] [address] Radiation Oncologist Radiation Oncology 12/12/22 Ranjan Cazares MD [address] [place] [address] Surgeon Thoracic Surgery 12/12/22 Martina Elizabeth PA [address] [place] [address] Physician Gang Vibrator Operator Rheumatology 10/20/24
--- OUTSIDE RECORDS SUMMARY | 2024-10-26 18:08 | XMS_ITS | Encounter Summary ---
Author Organization [facility] Address [address] [facility] [address] [place] [address] Phone Care Team Providers Care Editor Managing Director Name Role Phone Terry Bender DO Primary Care Provider [phone] Wilmer Taylor MD Unavailable [phone] Jeffrey Koch MD Unavailable [phone] Luz Lewis MD Unavailable [phone] Sin Mcclure MD Primary Care Provider [phone] Jay Argueta MD Primary Care Provider [phone] Raleigh Jay MD PhD Unavailable [phone] Ranjan Cazares MD Unavailable [phone] Gabriele Adams NP Primary Care Provider [phone] Terry Bender DO Primary Care Provider [phone] Martina Elizabeth Unavailable Encounter Details Date Type Department Care Team (Late st Contact Info) Description 08/30/2021 Telephone [facility] Oncology [address] [place] [address] [place] [address] Marianne Hernandez Social History Tobacco Use Types [...] on file Legal Sex Female 10:10 AM [employer] Gender Identity Not on file Sexual Orientation Not on file documented as of this encounter Functional Status documented as of this encounter Plan of Treatment Not on file documented as of this encounter Visit Diagnoses Not on filedocumented in this encounter Care Teams Editor Managing Director Relationship Specialty Start Date End Date Terry Bender DO PCP - General Internal Medicine 01/03/18 05/14/22 Sin Mcclure MD [address] [place] [address] PCP - General Internal Medicine 05/15/22 11/28/22 Jay Argueta MD [address] [place] [address] PCP - General Family Practice 11/29/22 10/07/23 Gabriele Adams NP [address] [place] [address] PCP - General Nurse Practitioner 10/08/23 12/06/23 Terry Bender DO [address] [place] [address] PCP - General Internal Medicine 12/07/23 Wilmer Taylor MD [address] [facility] [address] [place] [address] Referring Physician Obstetrics and Gynecology 05/09/12 Jeffrey Koch MD [address] [place] [address] Consulting Physician Rheumatology 02/03/21 Luz Lewis MD [address] [place] [address] Referring Physician Surgery 12/14/21 Raleigh Jay MD PhD [address] [place] [address] Radiation Oncologist Radiation Oncology 12/12/22 Ranjan Cazares MD [address] [place] [address] Surgeon Thoracic Surgery 12/12/22 Martina Elizabeth PA [address] [place] [address] Physician Airplane Designer Rheumatology 10/20/24 documented as of this encounter
--- OUTSIDE RECORDS SUMMARY | 2024-10-26 18:08 | XMS_ITS ---
Author Organization [facility] Address [address] [place] [address] Care Team Providers Care Waistline Joiner Lockstitch Name Role Phone Wilmer Taylor MD Unavailable [phone] Jeffrey Koch MD Unavailable [phone] Luz Lewis MD Unavailable [phone] Raleigh Jay MD PhD Unavailable [phone] Ranjan Cazares MD Unavailable [phone] Terry Bender DO Primary Care Provider [phone] Martina Elizabeth Unavailable [phone] Active Problems Patient Care Coordination No te [...] PRN. Assessment & Plan (05/21/2023 12:22 PM MUD JACK NOZZLE WORKER): Pain overlying right lateral chest wall. 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 2021 Assessment & Plan (09/11/2024 8:57 AM CDT): Hepatitis negative: 02/2021 Assessment & Plan (04/17/2024 9:13 AM MUD JACK NOZZLE WORKER): Hepatitis negative: 02/2021 Assessment & Plan (10/08/2023 9:05 AM CDT): Hepatitis negative: 02/2021 Assessment & Plan (07/09/2023 9:21 AM CDT): Hepatitis negative: 02/2021 Assessment & Plan (05/21/2023 10:12 AM MUD JACK NOZZLE WORKER): Hepatitis negative: 02/2021 Assessment & Plan (02/12/2023 11:59 AM CDT): Hepatitis negative: 02/2021 Assessment & Plan (10/09/2022 1:07 PM CDT): Hepatitis negative: 02/2021 Assessment & Plan (05/15/2022 10:43 AM MUD JACK NOZZLE WORKER): Hepatitis negative: 02/2021 Assessment & Plan (01/16/2022 10:56 AM CDT): Hepatitis negative: 02/2021 Assessment & Plan (10/17/2021 12:11 PM CDT): Hepatitis negative: 02/2021 Assessment & Plan (06/20/2021 10:12 AM MUD JACK NOZZLE WORKER): Hepatitis negative: 02/2021 Rheumatoid arthritis involvi [...] needed. Assessment & Plan (04/17/2024 9:44 AM MUD JACK NOZZLE WORKER): Cdai in remission. Seropositive RA (+RF, [...] needed. Assessment & Plan (05/21/2023 12:18 PM MUD JACK NOZZLE WORKER): Low cdai. Seropositive RA (+RF, CCP) [...] needed. Assessment & Plan (05/15/2022 10:55 AM MUD JACK NOZZLE WORKER): Low cdai. Seropositive RA (+RF, CCP) [...] needed. Assessment & Plan (06/20/2021 10:11 AM MUD JACK NOZZLE WORKER): Seropositive RA (+RF, CCP) that remains well controlled with MTX 12.5mg weekly. Main complaints are pain involving the R 4th PIP joints and cervical spine which are degenerative however is responding well to Voltaren gel otc. Will continue MTX 12.5mg weekly and folic acid 1mg daily.Routine labs today. Follow up in 3 months. Sooner if needed. Assessment & Plan (03/14/2021 10:50 AM MUD JACK NOZZLE WORKER): Seropositive RA (+RF, CCP) that remains [...] Koch. Assessment & Plan (02/28/2021 9:54 AM MUD JACK NOZZLE WORKER): 70-year-old female with PMHx of HTN, [...] PM&R. Assessment & Plan (04/17/2024 9:13 AM MUD JACK NOZZLE WORKER): Pain worse with activity and improved [...] PM&R. Assessment & Plan (05/21/2023 12:11 PM MUD JACK NOZZLE WORKER): Pain worse with activity and improved [...] exercises. Assessment & Plan (05/15/2022 10:43 AM MUD JACK NOZZLE WORKER): Pain worse with activity and improved [...] exercises. Assessment & Plan (06/20/2021 10:11 AM MUD JACK NOZZLE WORKER): Pain worse with activity and improved with rest. Denies radiating pain. 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 Patient defers PT and worried about NSAIDs with her current medication regimen. Taking tylenol otc prn with some relief. Using Voltaren gel otc prn with good relief. Continue home exercises. Assessment & Plan (03/14/2021 10:52 AM MUD JACK NOZZLE WORKER): Pain worse with activity and improved [...] pain. Assessment & Plan (02/28/2021 9:57 AM MUD JACK NOZZLE WORKER): Pain worse with activity and improved [...]
[2024-10-26 18:13] VITALS: BP 125/72; PULSE 91; RESP 20; TEMP 36.6; O2SAT 98
[2024-10-26 18:31] VITALS: BP 115/85; PULSE 78; RESP 19; O2SAT 97
--- NOTE | 2024-10-26 19:13 | ED_ITS ---
HPI - Fall General Chief Complaint: Fall Stated Complaint: fall, ankle injury Time Seen by Provider: 10/26/24 19:02 History of Present Illness HPI Narrative: Patient was dozing in her recliner when the phone rang, she got up to try to answer it and her feet got tangled and she fell and twisted her left ankle. Does not remember hitting her head or losing consciousness but she is on Eliquis. Related Data Home Medications ?Medication ?Instructions ?Recorded ?Confirmed ?Last Taken ?Type omega-3 fatty acids 1,000 mg 1,000 mg PO DAILY 06/17/19 06/04/24 04/25/24 History capsule (Fish Oil Concentrate) umeclidinium 62.5 mcg-vilanterol 1 inh inhalation 06/04/24 06/04/24 Unknown History 25 mcg/actuation powdr for inhalation (Anoro Ellipta) Allergies Allergy/AdvReac Type Severity Reaction Status Date / Time omeprazole Allergy Unknown rash Verified 10/26/24 18:31 ciprofloxacin (From Cipro) AdvReac Intermediate Cramping Verified 10/26/24 18:31 of the Muscles levofloxacin AdvReac Intermediate Other Verified 10/26/24 18:31 amoxicillin AdvReac Mild Diarrhea Verified 10/26/24 18:31 ibuprofen AdvReac Unknown Verified 10/26/24 18:31 Review of Systems Review of Systems: All systems reviewed & are unremarkable except as noted in HPI and below PMFSH Past Medical History Medical History (Updated 10/26/24 @ 19:42 by Letha Manley MD) BMI 22.0-22.9, adult BMI 23.0-23.9, adult 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 Grandparent Heart disease Hypertension Father Blood infection Social History Social History Smoking packs per day: 1 Smoking cigarettes per day: 20.0 Years smoked: 40 Smoking pack-years: 40.00 Smoking status: Former smoker Tobacco type: cigarettes Second hand tobacco smoke exposure: Yes Smoking end date: 04/23/15 Alcohol intake: current Substance use: never Substance use type: does not use Do You Feel Safe in your Home?: Yes Lack of Transportation: No Lack of Food: Never True Current Housing: I Have Housing Concerned About Future Housing: No Difficulty Paying Gas/Electric Bills: No Difficulty Paying for Meds: No Currently Unemployed: No Education: High School Diploma/GED Difficulty w/ Childcare or Family Care: No Living arrangements: alone Occupation/Education: retired 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 EYES: EOMI, conjunctiva normal ENT: Hearing grossly intact LUNGS: Nonlabored breathing. HEART: [Regular rate and rhythm], normal DP pulse ABD: [Soft], [nontender to palpation] EXT: Normal range of motion, swelling, bruising and tenderness left lateral ankle. No tenderness or bruising or difficulty moving left shoulder. SKIN: Swelling and bruising left lateral ankle NEURO: [Alert and oriented x 3. No gross focal sensory or strength deficits.] PSYCH: Normal affect Course Vital Signs Vital signs: Vital Signs Temperature 97.8 F 10/26/24 18:13 Pulse Rate 91 10/26/24 18:13 Respiratory Rate 20 10/26/24 18:13 Blood Pressure 125/72 10/26/24 18:13 Pulse Oximetry 98 10/26/24 18:13 Oxygen Delivery Nasal Cannula 10/26/24 18:13 Oxygen Flow Rate 4 10/26/24 18:13 Temperature 97.8 F 10/26/24 18:13 Pulse Rate 78 10/26/24 18:31 Respiratory Rate 19 10/26/24 18:31 Blood Pressure 115/85 10/26/24 18:31 Pulse Oximetry 97 10/26/24 18:31 Oxygen Delivery Nasal Cannula 10/26/24 18:13 Oxygen Flow Rate 4 10/26/24 18:13 MDM - Fall MDM Narrative Medical decision making narrative: 74F p/w mechanical fall; L lateral ankle swollen and bruised, XR thankfully neg for acute fracture my independent interpretation. Since she is on Eliquis and does not know if she hit her head, brain CT obtained which is thankfully negative for acute bleeding. Stable for discharge with return precautions to her PCP with care instructions. Discharge Plan Discharge Clinical Impression: Ankle sprain Patient Disposition: Home Condition: Stable Instructions: Ankle Sprain (ED) Additional Instructions: Please follow-up with your doctor, keep the ankle wrapped, elevated, and on ice, you can always return to the hospital for any further issues. Patient Language: Yoruba Prescriptions: No Action Anoro Ellipta 62.5-25 mcg/actuation blister with device 1 inh inhalation omega-3 fatty acids [Fish Oil Concentrate] 1,000 mg capsule 1,000 mg PO DAILY folic acid 1 mg tablet 1 mg PO DAILY Qty: 90 2RF Eliquis 5 mg tablet 5 mg PO Q12HR Qty: 60 6RF albuterol sulfate 90 mcg/actuation HFA aerosol inhaler 2 inh inhalation Q4-6H PRN (Reason: shortness of breath or wheezing) Qty: 6.7 5RF Rx Instructions: 2 puffs as needed every 4-6 hours losartan 50 mg tablet See Rx Instructions .ROUTE .COMPLEX Qty: 90 1RF Dose Instruction: TAKE ONE TABLET BY MOUTH ONCE DAILY Rx Instructions: TAKE 1/2 TABLET BY MOUTH ONCE DAILY calcium carbonate-vitamin D3 600 mg-20 mcg (800 unit) tablet 1 tablet PO DAILY Qty: 90 2RF tiotropium-olodaterol 2.5-2.5 mcg/actuation mist 2 puff inhalation DAILY Qty: 4 6RF famotidine 20 mg tablet See Rx Instructions .ROUTE .COMPLEX Qty: 90 1RF Dose Instruction: TAKE 1 TABLET BY MOUTH EVERY DAY Rx Instructions: TAKE 1 TABLET BY MOUTH EVERY DAY diltiazem HCl [Tiadylt ER] 120 mg capsule,extended release 24hr See Rx Instructions .ROUTE .COMPLEX Qty: 90 1RF Dose Instruction: TAKE 1 CAPSULE BY MOUTH EVERY DAY IN THE MORNING Rx Instructions: TAKE 1 CAPSULE BY MOUTH EVERY DAY IN THE MORNING alendronate 70 mg tablet See Rx Instructions .ROUTE .COMPLEX Qty: 12 2RF Dose Instruction: TAKE 1 TABLET BY MOUTH WEEKLY Rx Instructions: TAKE 1 TABLET BY MOUTH WEEKLY Follow-up/Referrals: Gabriele Adams APRN [Primary Care Provider] -
--- OUTSIDE RECORDS SUMMARY | 2024-10-26 19:35 | XMS_ITS | Clinical Summary ---
Author Organization [facility] Address [address] [place] [address] Care Team Providers Care Bulb Packer Name Role Phone Wilmer Taylor MD Unavailable [phone] Jeffrey Koch MD Unavailable [phone] Luz Lewis MD Unavailable [phone] Raleigh estrada MD PhD Unavailable Ranjan Cazares MD Unavailable Terry Bender DO Primary Care Provider Martina Elizabeth Unavailable Allergies Active Allergy Reactions [...] by mouth daily after lunch Active omega 9-kgs-pvy-fish oil 100-160-1,000 mg capsuleIndicati ons:hypertrigly ceridemia Take [...] PRN. Assessment & Plan (05/21/2023 12:22 PM AUTOMOBILE DEALER): Pain overlying right lateral chest wall. TTP [...] (11/21/2021): Added automatically from request for surgery [id number] Bronchogenic lung cancer, right 09/12/2021 COPD (chronic [...] (09/01/2021): Added automatically from request for surgery [id number] [facility] current use 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 drug 2021 Assessment & Plan (09/11/2024 8:57 AM CDT): Hepatitis negative: 02/2021 Assessment & Plan (04/17/2024 9:13 AM AUTOMOBILE DEALER): Hepatitis negative: 02/2021 Assessment & Plan (10/08/2023 9:05 AM CDT): Hepatitis negative: 02/2021 Assessment & Plan (07/09/2023 9:21 AM CDT): Hepatitis negative: 02/2021 Assessment & Plan (05/21/2023 10:12 AM AUTOMOBILE DEALER): Hepatitis negative: 02/2021 Assessment & Plan (02/12/2023 11:59 AM CDT): Hepatitis negative: 02/2021 Assessment & Plan (10/09/2022 1:07 PM CDT): Hepatitis negative: 02/2021 Assessment & Plan (05/15/2022 10:43 AM AUTOMOBILE DEALER): Hepatitis negative: 02/2021 Assessment & Plan (01/16/2022 10:56 AM CDT): Hepatitis negative: 02/2021 Assessment & Plan (10/17/2021 12:11 PM CDT): Hepatitis negative: 02/2021 Assessment & Plan (06/20/2021 10:12 AM AUTOMOBILE DEALER): Hepatitis negative: 02/2021 Rheumatoid arthritis involvi ng [...] needed. Assessment & Plan (04/17/2024 9:44 AM AUTOMOBILE DEALER): Cdai in remission. Seropositive RA (+RF, CCP) [...] needed. Assessment & Plan (05/21/2023 12:18 PM AUTOMOBILE DEALER): Low cdai. Seropositive RA (+RF, CCP) that [...] needed. Assessment & Plan (05/15/2022 10:55 AM AUTOMOBILE DEALER): Low cdai. Seropositive RA (+RF, CCP) that [...] needed. Assessment & Plan (06/20/2021 10:11 AM AUTOMOBILE DEALER): Seropositive RA (+RF, CCP) that remains well controlled with MTX 12.5mg weekly. Main complaints are pain involving the R 4th PIP joints and cervical spine which are degenerative however is responding well to Voltaren gel otc. Will continue MTX 12.5mg weekly and folic acid 1mg daily.Routine labs today. Follow up in 3 months. Sooner if needed. Assessment & Plan (03/14/2021 10:50 AM AUTOMOBILE DEALER): Seropositive RA (+RF, CCP) that remains well [...] Koch. Assessment & Plan (02/28/2021 9:54 AM AUTOMOBILE DEALER): 70-year-old female with PMHx of HTN, COPD, [...] PM&R. Assessment & Plan (04/17/2024 9:13 AM AUTOMOBILE DEALER): Pain worse with activity and improved with [...] PM&R. Assessment & Plan (05/21/2023 12:11 PM AUTOMOBILE DEALER): Pain worse with activity and improved with [...] exercises. Assessment & Plan (05/15/2022 10:43 AM AUTOMOBILE DEALER): Pain worse with activity and improved with [...] exercises. Assessment & Plan (06/20/2021 10:11 AM AUTOMOBILE DEALER): Pain worse with activity and improved with rest. Denies radiating pain. 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 Patient defers PT and worried about NSAIDs with her current medication regimen. Taking tylenol otc prn with some relief. Using Voltaren gel otc prn with good relief. Continue home exercises. Assessment & Plan (03/14/2021 10:52 AM AUTOMOBILE DEALER): Pain worse with activity and improved with [...] pain. Assessment & Plan (02/28/2021 9:57 AM AUTOMOBILE DEALER): Pain worse with activity and improved with [...] Type Department Care Team Description 10/22/2024 Telephone [facility] Pulmonary at [address] [place] [address] Nilsa Ayala LPN [employer] question 10/20/2024 11:00 AM CDT Office Visit [facility] Pulmonary at [address] [place] [phone] Deborah Palafox NP Centrilobular emphysema (HCC) (Primary Dx); Pulmonary nodules; 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 factor (HCC) 10/11/2024 9:00 AM CDT - 10/11/2024 11:59 PM CDT Hospital Encounter [address] [address] Pulmonary nodules Discharge Disposition: Discharge to home or self care 10/10/[address] [address] Taz Sultana 09/12/2024 Results Follow-Up [facility] [address] [place] [phone] Martina Elizabeth PA Comprehensive metabolic panel, CBC with auto differential, Erythrocyte sedimentation rate, CRP (acute phase) 09/11/2024 9:15 AM CDT Office Visit [facility] [address] [place] [phone] Martina Elizabeth PA 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 factor (HCC) (Primary Dx); Rheumatoid arthritis with rheumatoid factor of multiple sites without organ or systems involvement (HCC); Neck pain; superintendent terminal current use 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 drug; Lung nodule 08/18/2024 9:15 AM CDT Office Visit [facility] Pulmonary at [address] [address] Frankie Cardoso MD Pulmonary nodules (Primary Dx); Chronic obstructive pulmonary disease, unspecified COPD type (HCC); Malignant neoplasm of lower lobe, right bronchus or lung (HCC); Malignant neoplasm of upper lobe, left bronchus or lung (HCC); Malignant neoplasm of upper lobe, right bronchus or lung (HCC); Chronic respiratory failure with hypoxia (HCC) 08/16/2024 10:29 AM CDT - 08/16/2024 11:59 PM CDT Hospital Encounter [address] [address] Pulmonary nodules Discharge Disposition: Discharge to home or self care 08/15/2024 Telephone [facility] [address] [place] [address] Taz Sutlana from Last 3 Months Immunizations Immunization Administration Dates Next Due Influenza, Quadrivalent, Kaylen l Culture-based MDCK, Preservative Free, Antibiotic Free, Intramuscular 02/01/2020 Influenza, Quadrivalent, Spl it, Intramuscular 02/12/2019 Influenza, Trivalent, High D ose, Split, Preservative Free, Intramuscular 01/31/2018,01/28/2017,02/18/2014 Influenza, Unspecified 03/03/2013 Moderna SARS-CoV-2 Monovalen t Vaccination (12+ YRS) 03/19/2021,07/13/2020,06/22/2020 Pneumococcal Polysaccharide PPV23 05/07/2017 ZOSTER LIVE 01/16/2018,11/08/2017,06/23/2009 Surgical History Surgery Date Site/Laterality Comments MS UNLISTED PROCEDURE BREAST 04/23/1977 - 04/22/1978 Right [...] on file Legal Sex Female 10:10 AM AUTOMOBILE DEALER Gender Identity Not on file Sexual Orientation [...] both hands with positive rheumatoid factor (HCC) [facility] current use 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 drug ERYTHROCYTE SEDIMENTATION RATE Routine 09/11/2024 9:49 AM CDT 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 factor (HCC) superintendent terminal current use 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 drug CBC WITH AUTO DIFFERENTIAL Routine 09/11/2024 9:49 AM CDT 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 factor (HCC) superintendent terminal current use 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 drug COMPREHENSIVE METABOLIC PANEL Routine 09/11/2024 9:49 AM CDT 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 factor (HCC) [facility] current use 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 drug CT CHEST WO CONTRAST Schedule Routine, Read Routine (OP Routine) 08/16/2024 10:39 AM CDT Pulmonary nodules HEPATITIS PANEL, ACUTE Routine 02/28/2021 10:09 AM AUTOMOBILE DEALER 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 factor (HCC) Fatigue, unspecified type superintendent terminal current use 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 drug from Last [...] and lymph node dissection September 11. Clinical xxe-ugxlc-oqdq lung cancer right lower lobe status post [...] Status post right upper lobectomy. Background of muxmaldb-tp-tglgoy emphysematous changes. Bilateral lung base scarring. Interval [...] Christian Molina M.D. NS: NS Report ID: [id number] Reading Location: [id number] Procedure Note Christian Molina MD - 10/24/2024 [...] and lymph node dissection September 11. Clinical rtf-lvdcw-piiq lung cancer right lower lobe status post [...] LUNGS: Status post right upper lobectomy. Background cpglvelmsb-bl-wmxmvg emphysematous changes. Bilateral lung base scarring. Interval [...] Christian Molina M.D. NS: NS Report ID: [id number] Reading Location: [id number] Frankie Cardoso MD IM CT PROCEDURES Final [...] LAB BLOOD ORDERABLES Final Result [facility] [address] [place] [address] * (ABNORMAL) Erythrocyte sedimentation rate (09/11/2024 9:49 AM CDT) Erythrocyte sedimentation rate 41(H) < OR = 30 mm/h [facility] Blood 09/11/2024 9:49 AM CDT 09/11/2024 9:49 AM CDT Martina JONES LAB BLOOD ORDERABLES Final Result Performing Organization Address [facility] Co de Phone Number [facility] [address] [place] [address] * (ABNORMAL) CRP (acute phase) (09/11/2024 9:49 AM CDT) C-RP 23.4(H) <8.0 mg/L [facility] Blood 09/11/2024 9:49 AM CDT 09/11/2024 9:49 AM CDT Martina JONES LAB BLOOD ORDERABLES Final Result Performing Organization Address [facility] de Phone Number [facility] [address] [place] [address] * (ABNORMAL) Comprehensive metabolic panel (09/11/2024 9:49 [...] LAB BLOOD ORDERABLES Final Result [facility] [address] [place] [address] * CT chest without contrast (08/16/2024 10:39 [...] Maninderkike Boone M.D. AG: ALISHA Report ID: [id number] Reading Location: [id number] Procedure Note Maninder Boone MD - 08/27/2024 [...] Maninder Boone M.D. AG: AG Report ID: [id number] Reading Location: [place] [address] Frankie Cardoso MD IM CT PROCEDURES Final Result * Hepatitis panel, acute (02/28/2021 10:09 AM AUTOMOBILE DEALER) Hep A IgM NON-REACTI VE NON-REACT MARIANNA [facility] Comment: For additional information, please refer to http://Zad[employer]/faq/EJC439 (This link is being provided for informational/ [...] a test for HCV RNA (test code 14749) is suggested. For additional information please refer to http://education.[employer]/faq/FUC47x0 (This link is being provided for informational/ educational purposes only.) Blood specimen (specimen) 02/28/2021 10:09 AM AUTOMOBILE DEALER 02/28/2021 10:15 AM AUTOMOBILE DEALER Martina JONES LAB MICROBIOLOGY - NERAL ORDERABLES Final Result Performing Organization Address City/State/[facility] Co ms Phone Number [facility] [address] [place] [address] from Last 3 Months or Most Recently Relevant to Health Maintenance Insurance [employer] Member Subscriber Plan / Payer ( fective 2014-Present) Name:Darrion Guillory Relation to Subscriber:Self Name:Darrion Guillory Payer ID:[id number] (NAIC) Type:MEDICARE RISK OTHER Address: [address] [place] [id number] [facility] Advance Directives For more information, please contact: [phone] * Full Code (Latest Code Status on File) Date Activated Date Inactivated Comments 09/12/2021 4:12 PM 09/14/2021 4:07 PM Care Teams Bulb Packer Relationship Specialty Start Date End Date Terry Bender DO [address] [place], [place] [phone] PCP - General Internal Medicine 12/07/23 Wilmer Taylor MD [address] [facility] [address] [place] [address] Referring Physician Obstetrics and Gynecology 05/09/12 Jeffrey Koch MD [address] [place] [address] Consulting Physician Rheumatology 02/03/21 Luz Lewis MD [address] [place] [address] Referring Physician Surgery 12/14/21 Raleigh Jay MD PhD [address] [place] [address] Radiation Oncologist Radiation Oncology 12/12/22 Ranjan Cazares MD [address] [place] [address] Surgeon Thoracic Surgery 12/12/22 Martina Elizabeth PA [address] [place] [address] Physician Cook Candy Rheumatology 10/20/24
--- OUTSIDE RECORDS SUMMARY | 2024-10-26 19:35 | XMS_ITS | Referral Summary ---
Author Organization [facility] Address [address] [place] [address] Care Team Providers Care Railroad Crossing Protection Maintainer Name Role Phone Wilmer Taylor MD Unavailable [phone] Jeffrey Koch MD Unavailable [phone] Luz Lewis MD Unavailable Raleigh estrada MD PhD Unavailable [phone] Ranjan Cazares MD Unavailable Terry Bender DO Primary Care Provider [phone] Martina Elizabeth Unavailable Encounters Date Type Department Care Team Description 10/22/2024 Telephone [facility] Pulmonary at [address] [place] [address] Nilsa Ayala LPN [employer] question 10/20/2024 11:00 AM CDT Office Visit [facility] Pulmonary at [address] [place] [address] Deborah Palafox NP Centrilobular emphysema (HCC) (Primary Dx); Pulmonary nodules; 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 factor (HCC) 10/11/2024 9:00 AM CDT - 10/11/2024 11:59 PM CDT Hospital Encounter [address] [address] Pulmonary nodules Discharge Disposition: Discharge to home or self care 10/10/[address] [address] Taz Sultana 09/12/2024 Results Follow-Up [facility] [address] [place] [phone] Martina Elizabeth PA Comprehensive metabolic panel, CBC with auto differential, Erythrocyte sedimentation rate, CRP (acute phase) 09/11/2024 9:15 AM CDT Office Visit [facility] [address] [place] [phone] Martina Elizabeth PA 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 factor (HCC) (Primary Dx); Rheumatoid arthritis with rheumatoid factor of multiple sites without organ or systems involvement (HCC); Neck pain; meterman current use 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 drug; Lung nodule 08/18/2024 9:15 AM CDT Office Visit [facility] Pulmonary at [address] [place] [phone] Frankie Cardoso MD Pulmonary nodules (Primary Dx); Chronic obstructive pulmonary disease, unspecified COPD type (HCC); Malignant neoplasm of lower lobe, right bronchus or lung (HCC); Malignant neoplasm of upper lobe, left bronchus or lung (HCC); Malignant neoplasm of upper lobe, right bronchus or lung (HCC); Chronic respiratory failure with hypoxia (HCC) 08/16/2024 10:29 AM CDT - 08/16/2024 11:59 PM CDT Hospital Encounter [address] [address] Pulmonary nodules Discharge Disposition: Discharge to home or self care 08/15/[address] [address] Taz Sultana from Last 3 Months Allergies [...] by mouth daily after lunch Active omega 3-cbm-ydo-fish oil 100-160-1,000 mg capsuleIndicati ons:hypertrigly ceridemia Take [...] PRN. Assessment & Plan (05/21/2023 12:22 PM FNPS): Pain overlying right lateral chest wall. TTP [...] (11/21/2021): Added automatically from request for surgery [id number] Bronchogenic lung cancer, right 09/12/2021 COPD (chronic [...] (09/01/2021): Added automatically from request for surgery [id number] meterman current use 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 drug 2021 Assessment & Plan (09/11/2024 8:57 AM CDT): Hepatitis negative: 02/2021 Assessment & Plan (04/17/2024 9:13 AM FNPS): Hepatitis negative: 02/2021 Assessment & Plan (10/08/2023 9:05 AM CDT): Hepatitis negative: 02/2021 Assessment & Plan (07/09/2023 9:21 AM CDT): Hepatitis negative: 02/2021 Assessment & Plan (05/21/2023 10:12 AM FNPS): Hepatitis negative: 02/2021 Assessment & Plan (02/12/2023 11:59 AM CDT): Hepatitis negative: 02/2021 Assessment & Plan (10/09/2022 1:07 PM CDT): Hepatitis negative: 02/2021 Assessment & Plan (05/15/2022 10:43 AM FNPS): Hepatitis negative: 02/2021 Assessment & Plan (01/16/2022 10:56 AM CDT): Hepatitis negative: 02/2021 Assessment & Plan (10/17/2021 12:11 PM CDT): Hepatitis negative: 02/2021 Assessment & Plan (06/20/2021 10:12 AM FNPS): Hepatitis negative: 02/2021 Rheumatoid arthritis involvi ng [...] needed. Assessment & Plan (04/17/2024 9:44 AM FNPS): Cdai in remission. Seropositive RA (+RF, CCP) [...] needed. Assessment & Plan (05/21/2023 12:18 PM FNPS): Low cdai. Seropositive RA (+RF, CCP) that [...] needed. Assessment & Plan (05/15/2022 10:55 AM FNPS): Low cdai. Seropositive RA (+RF, CCP) that [...] needed. Assessment & Plan (06/20/2021 10:11 AM FNPS): Seropositive RA (+RF, CCP) that remains well controlled with MTX 12.5mg weekly. Main complaints are pain involving the R 4th PIP joints and cervical spine which are degenerative however is responding well to Voltaren gel otc. Will continue MTX 12.5mg weekly and folic acid 1mg daily.Routine labs today. Follow up in 3 months. Sooner if needed. Assessment & Plan (03/14/2021 10:50 AM FNPS): Seropositive RA (+RF, CCP) that remains well [...] Koch. Assessment & Plan (02/28/2021 9:54 AM FNPS): 70-year-old female with PMHx of HTN, COPD, [...] PM&R. Assessment & Plan (04/17/2024 9:13 AM FNPS): Pain worse with activity and improved with [...] PM&R. Assessment & Plan (05/21/2023 12:11 PM FNPS): Pain worse with activity and improved with [...] exercises. Assessment & Plan (05/15/2022 10:43 AM FNPS): Pain worse with activity and improved with [...] exercises. Assessment & Plan (06/20/2021 10:11 AM FNPS): Pain worse with activity and improved with rest. Denies radiating pain. 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 Patient defers PT and worried about NSAIDs with her current medication regimen. Taking tylenol otc prn with some relief. Using Voltaren gel otc prn with good relief. Continue home exercises. Assessment & Plan (03/14/2021 10:52 AM FNPS): Pain worse with activity and improved with [...] pain. Assessment & Plan (02/28/2021 9:57 AM FNPS): Pain worse with activity and improved with [...] on file Legal Sex Female 10:10 AM FNPS Gender Identity Not on file Sexual Orientation [...] both hands with positive rheumatoid factor (HCC) meterman current use 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 drug ERYTHROCYTE SEDIMENTATION RATE Routine 09/11/2024 9:49 AM CDT 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 factor (HCC) meterman current use 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 drug CBC WITH AUTO DIFFERENTIAL Routine 09/11/2024 9:49 AM CDT 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 factor (HCC) [facility] current use 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 drug COMPREHENSIVE METABOLIC PANEL Routine 09/11/2024 9:49 AM CDT 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 factor (HCC) [facility] current use 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 drug CT CHEST WO CONTRAST Schedule Routine, Read Routine (OP Routine) 08/16/2024 10:39 AM CDT Pulmonary nodules HEPATITIS PANEL, ACUTE Routine 02/28/2021 10:09 AM FNPS 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 factor (HCC) Fatigue, unspecified type [facility] current use 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 drug from Last [...] and lymph node dissection September 11. Clinical qjq-cxfqn-aiqu lung cancer right lower lobe status post [...] Status post right upper lobectomy. Background of zexcqcsi-ot-lmxgkw emphysematous changes. Bilateral lung base scarring. Interval [...] Christian Molina M.D. NS: NS Report ID: [id number] Reading Location: [id number] Procedure Note Christian Molina MD - 10/24/2024 [...] and lymph node dissection September 11. Clinical lyt-yubjp-tfkb lung cancer right lower lobe status post [...] LUNGS: Status post right upper lobectomy. Background tciabsxxcf-lg-rodeqp emphysematous changes. Bilateral lung base scarring. Interval [...] Christian Molina M.D. NS: NS Report ID: [id number] Reading Location: [place] [address] Frankie Cardoso MD [facility] CT PROCEDURES Final Result * (ABNORMAL) CBC [...] LAB BLOOD ORDERABLES Final Result [facility] [address] [address] [place] [address] * (ABNORMAL) Erythrocyte sedimentation rate (09/11/2024 9:49 AM CDT) Pathologist [facility] Erythrocyte sedimentation rate 41(H) < OR = 30 mm/h [facility] Blood 09/11/2024 9:49 AM CDT 09/11/2024 9:49 AM CDT Martina JONES LAB BLOOD ORDERABLES Final Result Performing Organization Address City/[facility]/ZIP Co de Phone Number [facility] [address] [place] [address] * (ABNORMAL) CRP (acute phase) (09/11/2024 9:49 AM CDT) [facility] C-RP 23.4(H) <8.0 mg/L [facility] Blood 09/11/2024 9:49 AM CDT 09/11/2024 9:49 AM CDT Martina JONES LAB BLOOD ORDERABLES Final Result Performing Organization Address [facility] Co de Phone Number [facility] [employer] [facility] [address] [place] [address] * (ABNORMAL) Comprehensive metabolic panel (09/11/2024 9:49 AM CDT) [facility] Glucose 109(H) 65 - 99 mg/dL [facility] [...] LAB BLOOD ORDERABLES Final Result [facility] [address] [place] [address] * CT chest without contrast (08/16/2024 10:39 [...] Maninder Boone M.D. AG: ALISHA Report ID: [id number] Reading Location: [id number] Procedure Note Maninder Boone MD - 08/27/2024 [...] Maninder Boone M.D. AG: AG Report ID: [id number] Reading Location: [place] [address] Frankie Cardoso MD IM CT PROCEDURES Final Result * Hepatitis panel, acute (02/28/2021 10:09 AM FNPS) Hep A IgM NON-REACTI VE NON-REACT MARIANNA [facility] Comment: For additional information, please refer to http://education.[employer]/faq/YGD359 (This link is being provided for informational/ [...] a test for HCV RNA (test code 07015) is suggested. For additional information please refer to http://education.[employer]/faq/AHJ71h0 (This link is being provided for informational/ educational purposes only.) Blood specimen (specimen) 02/28/2021 10:09 AM FNPS 02/28/2021 10:15 AM FNPS Martina JONES LAB MICROBIOLOGY - [facility] ORDERABLES Final Result [facility] [address] [place] [address] from Last 3 Months or Most Recently Relevant to Health Maintenance Insurance [employer] Member Subscriber Plan / Payer ( fective 2014-Present) Name:Darrion Guillory Relation to Subscriber:Self Name:Darrion Guillory Payer ID:[id number] (NAIC) Type:MEDICARE RISK OTHER Address: [address] [place] [id number] HEALTHCARE Member Subscriber Plan / Payer ( fective 2014-Present) Name:Darrion Guillory Relation to Subscriber:Self Name:Darrion Guillory Payer ID:[id number] (NAIC) Type:MEDICARE RISK OTHER Address: [address] [place] [id number] Advance Directives For more information, please contact: [phone] * Full Code (Latest Code Status on File) Date Activated Date Inactivated Comments 09/12/2021 4:12 PM 09/14/2021 4:07 PM Care Teams Railroad Crossing Protection Maintainer Relationship Specialty Start Date End Date Terry Bender DO [address] [facility] [address] [place] [address] PCP - General Internal Medicine 12/07/23 Wilmer Taylor MD [address] [facility] [address] [place], [place] [address] Referring Physician Obstetrics and Gynecology 05/09/12 Jeffrey Koch MD [address] [place] [address] Consulting Physician Rheumatology 02/03/21 Luz Lewis MD [address] [place] [address] Referring Physician Surgery 12/14/21 Raleigh Jay MD PhD [address] [place] [address] Radiation Oncologist Radiation Oncology 12/12/22 Ranjan Cazares MD [address] [place] [address] Surgeon Thoracic Surgery 12/12/22 Martina Elizabeth PA [address] [place] [address] Physician Button Breaker Operator Rheumatology 10/20/24
--- OUTSIDE RECORDS SUMMARY | 2024-10-26 19:35 | XMS_ITS | Encounter Summary ---
Author Organization [facility] logy Address [address] [place] [address] Phone Care Team Providers Care Farm Contractor Name Role Phone Wilmer Taylor MD Unavailable [phone] Jeffrey Koch MD Unavailable [phone] Luz Lewis MD Unavailable [phone] [facility] MD PhD Unavailable [phone] Ranjan Cazares MD Unavailable [phone] Terry Bender DO Primary Care Provider [phone] Martina Elizabeth Unavailable Encounter Details Date Type Department Care Team (Latest Contact Info) Description 09/12/2024 Results Follow-Up [facility] [address] [place] [address] Martina Elizabeth PA [address] [place] [address] Comprehensive metabolic panel, CBC with [...] on file Legal Sex Female 10:10 AM SOCIAL PROBLEMS SPECIALIST Gender Identity Not on file Sexual Orientation Not on file documented as of this encounter Plan of Treatment Not on file documented as of this encounter Visit Diagnoses Not on filedocumented in this encounter Care Teams Farm Contractor Relationship Specialty Start Date End Date Terry Bender DO [address] [place], [place] [id number] PCP - General Internal Medicine 12/07/23 Wilmer Taylor MD [address] [facility] [address] [place] [address] Referring Physician Obstetrics and Gynecology 05/09/12 Jeffrey Koch MD [address] [place] [address] Consulting Physician Rheumatology 02/03/21 Luz Lewis MD [address] [place] [address] Referring Physician Surgery 12/14/21 Raleigh Jay MD PhD [address] [place] [address] Radiation Oncologist Radiation Oncology 12/12/22 Ranjan Cazares MD [address] [place] [address] Surgeon Thoracic Surgery 12/12/22 Martina Elizabeth PA [address] [place] [address] Physician [facility] 10/20/24 documented as of this encounter
--- OUTSIDE RECORDS SUMMARY | 2024-10-26 19:35 | XMS_ITS ---
Author Organization [facility] Address [address] [place] [address] Care Team Providers Care Sourcing Intern Name Role Phone Wilmer Taylor MD Unavailable [phone] Jeffrey Koch MD Unavailable [phone] Luz Lewis MD Unavailable [phone] Raleigh Jay MD PhD Unavailable [phone] Ranjan Cazares MD Unavailable [phone] Terry Bender DO Primary Care Provider [phone] Martina Elizabeth Unavailable [phone] Active Problems Patient Care Coordination No te [...] PRN. Assessment & Plan (05/21/2023 12:22 PM BUSINESS TECHNOLOGY PROFESSOR): Pain overlying right lateral chest wall. TTP [...] (11/21/2021): Added automatically from request for surgery [id number] Bronchogenic lung cancer, right 09/12/2021 COPD (chronic [...] (09/01/2021): Added automatically from request for surgery [id number] termite inspector current use 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 drug 2021 Assessment & Plan (09/11/2024 8:57 AM CDT): Hepatitis negative: 02/2021 Assessment & Plan (04/17/2024 9:13 AM BUSINESS TECHNOLOGY PROFESSOR): Hepatitis negative: 02/2021 Assessment & Plan (10/08/2023 9:05 AM CDT): Hepatitis negative: 02/2021 Assessment & Plan (07/09/2023 9:21 AM CDT): Hepatitis negative: 02/2021 Assessment & Plan (05/21/2023 10:12 AM BUSINESS TECHNOLOGY PROFESSOR): Hepatitis negative: 02/2021 Assessment & Plan (02/12/2023 11:59 AM CDT): Hepatitis negative: 02/2021 Assessment & Plan (10/09/2022 1:07 PM CDT): Hepatitis negative: 02/2021 Assessment & Plan (05/15/2022 10:43 AM BUSINESS TECHNOLOGY PROFESSOR): Hepatitis negative: 02/2021 Assessment & Plan (01/16/2022 10:56 AM CDT): Hepatitis negative: 02/2021 Assessment & Plan (10/17/2021 12:11 PM CDT): Hepatitis negative: 02/2021 Assessment & Plan (06/20/2021 10:12 AM BUSINESS TECHNOLOGY PROFESSOR): Hepatitis negative: 02/2021 Rheumatoid arthritis involvi ng [...] needed. Assessment & Plan (04/17/2024 9:44 AM BUSINESS TECHNOLOGY PROFESSOR): Cdai in remission. Seropositive RA (+RF, CCP) [...] needed. Assessment & Plan (05/21/2023 12:18 PM BUSINESS TECHNOLOGY PROFESSOR): Low cdai. Seropositive RA (+RF, CCP) that [...] needed. Assessment & Plan (05/15/2022 10:55 AM BUSINESS TECHNOLOGY PROFESSOR): Low cdai. Seropositive RA (+RF, CCP) that [...] needed. Assessment & Plan (06/20/2021 10:11 AM BUSINESS TECHNOLOGY PROFESSOR): Seropositive RA (+RF, CCP) that remains well controlled with MTX 12.5mg weekly. Main complaints are pain involving the R 4th PIP joints and cervical spine which are degenerative however is responding well to Voltaren gel otc. Will continue MTX 12.5mg weekly and folic acid 1mg daily.Routine labs today. Follow up in 3 months. Sooner if needed. Assessment & Plan (03/14/2021 10:50 AM BUSINESS TECHNOLOGY PROFESSOR): Seropositive RA (+RF, CCP) that remains well [...] Koch. Assessment & Plan (02/28/2021 9:54 AM BUSINESS TECHNOLOGY PROFESSOR): 70-year-old female with PMHx of HTN, COPD, [...] PM&R. Assessment & Plan (04/17/2024 9:13 AM BUSINESS TECHNOLOGY PROFESSOR): Pain worse with activity and improved with [...] PM&R. Assessment & Plan (05/21/2023 12:11 PM BUSINESS TECHNOLOGY PROFESSOR): Pain worse with activity and improved with [...] exercises. Assessment & Plan (05/15/2022 10:43 AM BUSINESS TECHNOLOGY PROFESSOR): Pain worse with activity and improved with [...] exercises. Assessment & Plan (06/20/2021 10:11 AM BUSINESS TECHNOLOGY PROFESSOR): Pain worse with activity and improved with rest. Denies radiating pain. 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 Patient defers PT and worried about NSAIDs with her current medication regimen. Taking tylenol otc prn with some relief. Using Voltaren gel otc prn with good relief. Continue home exercises. Assessment & Plan (03/14/2021 10:52 AM BUSINESS TECHNOLOGY PROFESSOR): Pain worse with activity and improved with [...] pain. Assessment & Plan (02/28/2021 9:57 AM BUSINESS TECHNOLOGY PROFESSOR): Pain worse with activity and improved with [...]
--- OUTSIDE RECORDS SUMMARY | 2024-10-26 19:35 | XMS_ITS | Encounter Summary ---
Author Organization [facility] Address [address] [facility] [address] [place] [address] Phone Care Team Providers Care Cuffer Name Role Phone Terry Bender DO Primary Care Provider [phone] Wilmer Taylor MD Unavailable [phone] Jeffrey Koch MD Unavailable [phone] Luz Lewis MD Unavailable [phone] Sin Mcclure MD Primary Care Provider [phone] Jay Argueta MD Primary Care Provider [phone] Raleigh Jay MD PhD Unavailable [phone] Ranjan Cazares MD Unavailable [phone] Gabriele Adams NP Primary Care Provider [phone] Terry Bender DO Primary Care Provider [phone] Martina Elizabeth Unavailable Encounter Details Date Type Department Care Team (Late st Contact Info) Description 08/30/2021 Telephone [facility] [address] [facility] 7th [place] [address] [place] [address] Marianne Hernandez Social History Tobacco Use Types [...] on file Legal Sex Female 10:10 AM PRESIDENT & FOUNDER Gender Identity Not on file Sexual Orientation Not on file documented as of this encounter Functional Status documented as of this encounter Plan of Treatment Not on file documented as of this encounter Visit Diagnoses Not on filedocumented in this encounter Care Teams Cuffer Relationship Specialty Start Date End Date Terry Bender DO PCP - General Internal Medicine 01/03/18 05/14/22 Sin Mcclure MD [address] [place] [address] PCP - General Internal Medicine 05/15/22 11/28/22 Jay Argueta MD [address] [place] [address] PCP - General Family Practice 11/29/22 10/07/23 Gabriele Adams NP [address] [place] [address] PCP - General Nurse Practitioner 10/08/23 12/06/23 Terry Bender DO [address] [place] [address] PCP - General Internal Medicine 12/07/23 Wilmer Taylor MD [address] [facility] [address] [place] [address] Referring Physician Obstetrics and Gynecology 05/09/12 Jeffrey Koch MD [address] [place] [address] Consulting Physician Rheumatology 02/03/21 Luz Lewis MD [address] [place] [address] Referring Physician Surgery 12/14/21 Raleigh Jay MD PhD [address] [place] [address] Radiation Oncologist Radiation Oncology 12/12/22 Ranjan Cazares MD [address] [place] [address] Surgeon Thoracic Surgery 12/12/22 Martina Elizabeth PA [address] [place] [address] Physician [facility] Rhe[facility] 10/20/24 documented as of this encounter
== END 2024-10-26 20:24 | disposition home or self-care (01) ==
PROVIDERS: Emergency Provider Emergency Medicine; PCP Nurse Practitioner
DX: S93.402A Sprain of unspecified ligament of left ankle, initial encounter (principal); X50.1XXA Overexertion from prolonged static or awkward postures, initial encounter; Z79.01 Long term (current) use of anticoagulants; I10 Essential (primary) hypertension; Z85.118 Personal history of other malignant neoplasm of bronchus and lung; Z85.44 Personal history of malignant neoplasm of other female genital organs; M06.9 Rheumatoid arthritis, unspecified; Z87.891 Personal history of nicotine dependence
CPT/HCPCS: 70450; 73610; 99284

== ENCOUNTER 2025-01-06 10:08 | Emergency (ER) | payer OTHER, SELFPAY ==
[2025-01-06 10:20] VITALS: BP 140/70; PULSE 82; RESP 17; TEMP 36.7; O2SAT 96
[2025-01-06 10:29] VITALS: BP 132/70; PULSE 76; RESP 16; O2SAT 95
[2025-01-06 10:50] LABS: Add Urine Microscopic? YES; Appearance Urine Turbid (Clear); Glucose Urine UA Negative (Negative); Leukocyte Esterase Ur 3+ LEU/UL (Negative); Nitrate Urine Negative (Negative); Non Pathogenic Casts 0-2; Specific Grav Ur 1.017 (1.001-1.035)
[2025-01-06 11:04] LABS: Hematocrit 31.7 % (37.0-47.0); Hemoglobin 9.6 g/dL (12.0-15.0); Immature Granulocyte Percent A 1.9 % (0-0.5); Lymphocytes Absolute Auto 0.41 K/mm3 (0.9-3.2); Mean Corpuscular HGB Conc 30.3 g/dl (32-36); Mean Corpuscular Hemoglobin 29.8 pg (26-34); Mean Corpuscular Volume 98.4 fl (80-100); Nucleated Red Blood Cells Absolute Auto 0.000 K/mm3 (0.0-0.012); Nucleated Red Blood Cells Perc 0.0 % (0.0-0.2); Platelet Count Result 311 k/mm3 (150-375); Red Blood Count 3.22 M/mm3 (4.2-5.4); White Blood Count 5.8 K/mm3 (4.5-10.0)
[2025-01-06 11:22] LABS: Anion Gap 7 mmol/L (4-12); Blood Urea Nitrogen 23 mg/dL (7-17); Calcium 8.9 mg/dL (8.4-10.2); Carbon Dioxide 28 mmol/L (22-30); Chloride 99 mmol/L (98-107); Estimated CRCL calculation 41 ml/min; Estimated Glomerular Filt Rate 60; Glucose 102 mg/dL (65-110); Potassium 4.2 mmol/L (3.4-5.0); Sodium 134 mmol/L (137-145)
--- NOTE | 2025-01-06 11:23 | ED.FEMALEGU ---
HPI - Female Genitourinary General Chief complaint: Urogenital-Female Stated complaint: uti symptoms, sores in mouth Time Seen by Provider: 01/06/25 10:30 Source: patient Mode of arrival: ambulatory Limitations: no limitations History of Present Illness HPI Narrative: Patient is a 74-year-old female, with PMH of RA on methotrexate, who presents the ED with report of vaginal irritation. Patient reports she over the past 6 weeks, she has been started on daily steroid therapy for potential pneumonia. Was also started on bactrim 3 times per week for prevention of UTI while on steroids per commissary officer. Reports over the last couple of weeks, she has been having vaginal pain, irritation, dysuria, vaginal discharge, sores in her mouth. Denies abdominal pain, nausea, vomiting, fevers, increased shortness of breath. Chronically wears 4 L nasal cannula. Related Data Home Medications ?Medication ?Instructions ?Recorded ?Confirmed ?Last Taken ?Type omega-3 fatty acids 1,000 mg 1,000 mg PO DAILY 06/17/19 12/03/24 04/25/24 History capsule (Fish Oil Concentrate) umeclidinium 62.5 mcg-vilanterol 1 inh inhalation 06/04/24 12/03/24 Unknown History 25 mcg/actuation powdr for inhalation (Anoro Ellipta) prednisone 10 mg tablet 10 mg PO TID 12/03/24 12/03/24 Unknown History sulfamethoxazole 800 1 tablet PO 3XW 12/03/24 12/03/24 Unknown History mg-trimethoprim 160 mg tablet Allergies Allergy/AdvReac Type Severity Reaction Status Date / Time omeprazole Allergy Unknown rash Verified 01/06/25 10:30 ciprofloxacin (From Cipro) AdvReac Intermediate Cramping Verified 01/06/25 10:30 of the Muscles levofloxacin AdvReac Intermediate Other Verified 01/06/25 10:30 amoxicillin AdvReac Mild Diarrhea Verified 01/06/25 10:30 ibuprofen AdvReac Unknown Verified 01/06/25 10:30 Review of Systems Review of Systems: All systems reviewed & are unremarkable except as noted in HPI. 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 Grandparent Heart disease Hypertension Father Blood infection Social History Social History Smoking packs per day: 1 Smoking cigarettes per day: 20.0 Years smoked: 40 Smoking pack-years: 40.00 Smoking status: Former smoker Tobacco type: cigarettes Second hand tobacco smoke exposure: Yes Smoking end date: 04/23/15 Alcohol intake: current Substance use: never Substance use type: does not use Do You Feel Safe in your Home?: Yes Lack of Transportation: No Lack of Food: Never True Current Housing: I Have Housing Concerned About Future Housing: No Difficulty Paying Gas/Electric Bills: No Difficulty Paying for Meds: No Currently Unemployed: No Education: High School Diploma/GED Difficulty w/ Childcare or Family Care: No Living arrangements: alone Occupation/Education: retired 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 HEAD: Normocephalic, atraumatic. RESPIRATORY: Airway patent, respirations nonlabored. Clear to auscultation bilaterally, no rales, rhonchi, wheezing. CARDIOVASCULAR: Regular rate and rhythm without murmurs, rubs, or gallops. ABDOMINAL: Soft, nontender, nondistended. Normoactive BS. PELVIC: Scattered active ulcerative lesions along upper and lower labia minora yvon, focal TTP. Diffuse erythema and inflammation of vulvar region, slight yellow/brown vaginal discharge present in vault. No bleeding. MUSCULOSKELETAL: Moves all extremities. No gross deformities. SKIN: Warm, dry, normal color. NEURO: A&O X3. Speech clear. Cranial nerves II-XII grossly intact. Steady gait. No ataxic movements. PSYCHIATRIC: Appropriate mood and affect. Normal interaction. Course Vital Signs Vital signs: Vital Signs Temperature 98.1 F 01/06/25 10:20 Pulse Rate 82 01/06/25 10:20 Respiratory Rate 17 01/06/25 10:20 Blood Pressure 140/70 01/06/25 10:20 Pulse Oximetry 96 01/06/25 10:20 Oxygen Delivery Nasal Cannula 01/06/25 10:20 Oxygen Flow Rate 4 01/06/25 10:20 Temperature 98.1 F 01/06/25 10:20 Pulse Rate 78 01/06/25 13:24 Respiratory Rate 20 01/06/25 13:24 Blood Pressure 132/72 01/06/25 13:24 Pulse Oximetry 98 01/06/25 13:24 Oxygen Delivery Nasal Cannula 01/06/25 10:20 Oxygen Flow Rate 4 01/06/25 10:20 MDM - Female Genitourinary MDM Narrative Medical decision making narrative: Patient presents to ED with multiple complaints, vaginal pain/irritation, dysuria, sores in her mouth. Currently on prednisone and Bactrim by commissary officer. Vital signs are stable upon arrival here today. Patient in no acute distress. Laboratory studies with chronic mild anemia, consistent with previous records. CMP unremarkable. UA does appear consistent with infection. Sent for culture. Will switch from Bactrim to Keflex. No recent positive urine cultures, but culture from 2022 did show sensitivity to cephalosporins. Oral exam appears consistent with oral thrush. Will treat for such. Likely related to chronic steroid use. Pelvic exam was performed and appears consistent with a genital herpes. Patient denies ever having been diagnosed with general herpes in the past. Likely again related to chronic steroid use/suppression of immune system to cause activation of HSV. Swab from active ulcer lesion was performed. This was sent to lab. Will start on clotrimazole troches for oral thrush. Also given dose of Diflucan. Will be started on valacyclovir for HSV. Also given 1st dose of Keflex in the ED. Discussed case with patient's PCP, updated on plan. They are in agreement. They will follow-up with HSV testing. Patient has a appointment scheduled in office for next week. They will contact patient today. Patient otherwise safe for discharge home at this time. Discussed medications at length. Discussed strict return precautions. Patient in agreement with plan. Discharged in stable condition. Medical Records Attestation: I reviewed the patient's medical records. Lab Data Attestation: I reviewed the patient's lab results. 01/06/25 10:56 01/06/25 10:56 Labs: Lab Results 01/06/25 01/06/25 01/06/25 Range/Units 10:43 10:56 13:02 WBC 5.8 (4.5-10.0) K/mm3 RBC 3.22 L (4.2-5.4) M/mm3 Hgb 9.6 L (12.0-15.0) g/dL Hct 31.7 L (37.0-47.0) % MCV 98.4 (80-100) fl MCH 29.8 (26-34) pg MCHC 30.3 L (32-36) g/dl RDW 19.8 H (11.5-14.5) % Plt Count 311 (150-375) k/mm3 MPV 9.0 (7.4-10.4) fl Immature Gran % (Auto) 1.9 H (0-0.5) % Neut % (Auto) 87.7 H (45.5-73.1) % Lymph % (Auto) 7.0 L (18.3-44.2) % Milam % (Auto) 1.9 L (2.6-8.5) % Eos % (Auto) 1.2 (0-4.4) % Baso % (Auto) 0.3 (0.2-1.2) % Lymph # (Auto) 0.41 L (0.9-3.2) K/mm3 Milam # (Auto) 0.1 (0.1-0.6) K/mm3 Eos # (Auto) 0.1 (0-0.3) K/mm3 Baso # (Auto) 0.0 (0.0-0.1) K/mm3 Abs Immat Gran (auto) 0.11 H (0.00-0.031) K/mm3 Absolute Neuts (auto) 5.1 (1.3-6.7) K/mm3 Absolute Nucleated RBC 0.000 (0.0-0.012) K/mm3 Nucleated RBC % 0.0 (0.0-0.2) % Sodium 134 L (137-145) mmol/L Potassium 4.2 (3.4-5.0) mmol/L Chloride 99 (98-107) mmol/L Carbon Dioxide 28 (22-30) mmol/L Anion Gap 7 (4-12) mmol/L BUN 23 H (7-17) mg/dL Creatinine 0.91 (0.7-1.0) mg/dL Estim Creat Clear Calc 41 ml/min Estimated GFR 60 (59 - ) Glucose 102 (65-110) mg/dL Calcium 8.9 (8.4-10.2) mg/dL Urine Color Yellow (Yellow) Urine Appearance Turbid H (Clear) Urine pH 7.5 (5.0-9.0) Ur Specific [place] 1.017 (1.001-1.035) Urine Protein Negative (Negative) mg/dL Urine Glucose (UA) Negative (Negative) mg/dL Urine Ketones Negative (Negative) mg/dL Ur Blood (Man) Negative (Negative) Urine Nitrate Negative (Negative) Urine Bilirubin Negative (Negative) Urine Urobilinogen 0.2 (<2.0) mg/dL Leukocyte Esterase Rfl 3+ H (Negative) JAMIE/UL Urine RBC 3-5 H (0-2) /hpf Urine WBC 51-100 H (0-3) /hpf Ur Squamous Epith Cells None seen (Few) /hpf Urine Bacteria None seen /hpf Urine Casts 0-2 HSV I DNA PCR Pending HSV II DNA PCR Pending Discharge Plan Discharge Clinical Impression: Candidiasis of mouth, Genital labial ulcer, Vulvovaginal candidiasis UTI (urinary tract infection) Qualifiers: Urinary tract infection type: acute cystitis Hematuria presence: without hematuria Qualified Code(s): N30.00 - Acute cystitis without hematuria Patient Disposition: Home Condition: Stable Instructions: Antibiotic Form, Genital Herpes Infection (ED), Urinary Tract Infection in Women (ED), Oral Candidiasis (ED), Skin Yeast Infection (ED) Additional Instructions: Take antiviral medication as prescribed over the next several days. Take Keflex as prescribed for urinary tract infection. Utilize clotrimazole troches as prescribed for oral thrush. Make sure you are rinsing your mouth after using your inhalers. Follow-up closely with your primary care doctor for further evaluation. There are aware of your ED visit. Return to the ED if you experience worsening or severe pain, difficulty urinating, fevers, unable to keep down food or drink, worsening difficulty breathing, or any other symptoms of concern. Patient Language: [place] Prescriptions: New clotrimazole 10 mg mayra 10 mg mucous membrane QID 14 Days Qty: 56 0RF cephalexin 500 mg capsule 500 mg PO Q6H 7 Days Qty: 28 0RF valacyclovir 1 gram tablet 1,000 mg PO TID 10 Days Qty: 30 0RF No Action Anoro Ellipta 62.5-25 mcg/actuation blister with device 1 inh inhalation omega-3 fatty acids [Fish Oil Concentrate] 1,000 mg capsule 1,000 mg PO DAILY folic acid 1 mg tablet 1 mg PO DAILY Qty: 90 2RF albuterol sulfate 90 mcg/actuation HFA aerosol inhaler 2 inh inhalation Q4-6H PRN (Reason: shortness of breath or wheezing) Qty: 6.7 5RF Rx Instructions: 2 puffs as needed every 4-6 hours prednisone 10 mg tablet 10 mg PO TID sulfamethoxazole-trimethoprim 800-160 mg tablet 1 tablet PO 3XW losartan 50 mg tablet See Rx Instructions .ROUTE .COMPLEX Qty: 90 1RF Dose Instruction: TAKE ONE TABLET BY MOUTH ONCE DAILY Rx Instructions: TAKE 1/2 TABLET BY MOUTH ONCE DAILY calcium carbonate-vitamin D3 600 mg-20 mcg (800 unit) tablet 1 tablet PO DAILY Qty: 90 2RF tiotropium-olodaterol 2.5-2.5 mcg/actuation mist 2 puff inhalation DAILY Qty: 4 6RF diltiazem HCl [Tiadylt ER] 120 mg capsule,extended release 24hr See Rx Instructions .ROUTE .COMPLEX Qty: 90 1RF Dose Instruction: TAKE 1 CAPSULE BY MOUTH EVERY DAY IN THE MORNING Rx Instructions: TAKE 1 CAPSULE BY MOUTH EVERY DAY IN THE MORNING alendronate 70 mg tablet See Rx Instructions .ROUTE .COMPLEX Qty: 12 2RF Dose Instruction: TAKE 1 TABLET BY MOUTH WEEKLY Rx Instructions: TAKE 1 TABLET BY MOUTH WEEKLY famotidine 20 mg tablet See Rx Instructions .ROUTE .COMPLEX Qty: 90 1RF Dose Instruction: TAKE 1 TABLET BY MOUTH EVERY DAY Rx Instructions: TAKE 1 TABLET BY MOUTH EVERY DAY Eliquis 5 mg tablet See Rx Instructions .ROUTE .COMPLEX Qty: 60 6RF Dose Instruction: TAKE 1 TABLET BY MOUTH EVERY 12 HOURS Rx Instructions: TAKE 1 TABLET BY MOUTH EVERY 12 HOURS Follow-up/Referrals: Gabriele Adams APRN [Primary Care Provider, Internal Medicine] Time of Disposition: 13:09
--- OUTSIDE RECORDS SUMMARY | 2025-01-06 11:44 | XMS_ITS | Encounter Summary ---
Author Organization [facility] Address [address] [facility] [address] [place] [address] Phone Care Team Providers Care Storage Battery Inspector Name Role Phone Terry Bender DO Primary Care Provider [phone] Wilmer Taylor MD Unavailable [phone] Jeffrey Koch MD Unavailable [phone] Luz Lewis MD Unavailable [phone] Sin Mcclure MD Primary Care Provider [phone] Jay Argueta MD Primary Care Provider [phone] [facility] MD PhD Unavailable + [phone] Ranjan Cazares MD Unavailable [phone] Gabriele Adams NP Primary Care Provider + [phone] Terry Bender DO Primary Care Provider [phone] Martina Elizabeth Unavailable Encounter Details Date Type Department Care Team (Late st Contact Info) Description 08/30/2021 Telephone Research [facility] Oncology [address] [facility] 7th [place] [address] [place] [address] Marianne Hernandez Social History Tobacco Use Types [...] on file Legal Sex Female 10:10 AM [employer] Gender Identity Not on file Sexual Orientation Not on file documented as of this encounter Functional Status documented as of this encounter Plan of Treatment Not on file documented as of this encounter Visit Diagnoses Not on filedocumented in this encounter Care Teams Storage Battery Inspector Relationship Specialty Start Date End Date Terry Bender DO PCP - General Internal Medicine 01/03/18 05/14/22 Sin Mcclure MD [address] [place] [address] PCP - General Internal Medicine 05/15/22 11/28/22 Jay Argueta MD [address] [place] [address] PCP - General Family Practice 11/29/22 10/07/23 Gabriele Adams NP [address] [place] [address] PCP - General Nurse Practitioner 10/08/23 12/06/23 Terry Bender DO [address] [place] [address] PCP - General Internal Medicine 12/07/23 Wilmer Taylor MD [address] [facility] [address] [place] [address] Referring Physician Obstetrics and Gynecology 05/09/12 Jeffrey Koch MD [address] [place] [address] Consulting Physician Rheumatology 02/03/21 Luz Lewis MD [address] [place] [address] Referring Physician Surgery 12/14/21 Raleigh Jay MD PhD [address] [place] [address] Radiation Oncologist Radiation Oncology 12/12/22 Ranjan Cazares MD [address] [place] [address] Surgeon Thoracic Surgery 12/12/22 Martina Elizabeth PA [address] [place] [address] Physician Wellness Specialist Rheumatology 10/20/24 documented as of this encounter
--- OUTSIDE RECORDS SUMMARY | 2025-01-06 11:44 | XMS_ITS | Clinical Summary ---
Author Organization [facility] Address [address] [place] [address] Care Team Providers Care Painter Shipyard Name Role Phone Wilmer Taylor MD Unavailable [phone] Jeffrey Koch MD Unavailable [phone] Luz Lewis MD Unavailable Raleigh estrada MD PhD Unavailable [phone] Ranjan Cazares MD Unavailable Terry Bender DO Primary Care Provider [phone] Martina Elizabeth Unavailable Allergies Active Allergy Reactions Criticality Noted Date Comments Amoxicillin Diarrhea Low 09/01/2021 Ciprofloxacin Hives Medium 05/16/2024 Levofloxacin Swelling,Muscle pain Medium 07/09/2023 Tendon pain, lower leg swelling Ibuprofen Other (See comments) Low 09/12/2021 Patient takes Methotrexate and advised not to take. Omeprazole Rash Medium Medications calcium carbonate-chaka min D3 1,500 mg (600mg elemental) -800 unit per tabletIndicati ons:hypocalcem ia Take 2 tablets by mouth daily after lunch Active omega 4-ddw-ttj-fish oil 100-160-1,000 mg capsuleIndicat ions:hypertrig lyceridemia Take [...] mg total) by mouth daily 3 Active albuterol HFA (PROVENTIL HFA,VENTOLIN HFA,PROAIR HFA) [...] by mouth daily Active methotrexate 2.5 mg tabletIndicati ons:Rheumatoid Arthritis Take 5 tablets (12.5 mg total) by mouth every 7 days 60 tablet 1 5 Active folic acid (FOLVITE) 1 mg tabletIndicati ons:Folate Deficiency TAKE 1 TABLET (1 MG TOTAL) BY MOUTH DAILY AFTER LUNCH 90 tablet 3 5 Active cefuroxime (CEFTIN) 500 mg tablet Take 1 tablet (500 mg total) by mouth 2 (two) times a day 10 tablet 5 Active Stiolto Respimat 2.5-2.5 mcg/actuation inhaler Inhale 2 puffs daily 1 each 6 5 Active sulfamethoxazo le-trimethopri m (BACTRIM DS) 800-160 mg per tablet Take 1 tablet by mouth 3 (three) times a week 12 tablet 2 5 Active predniSONE (DELTASONE) 10 mg tablet Take 2 tablets (20mg) by mouth daily 60 tablet 5 Active predniSONE (DELTASONE) 10 mg tablet Take 3 tablets (30 mg) by mouth daily 90 tablet 5 12/24/19 25 Discontinu ed(Reorder ) Active Problems Patient Care Coordination No te [...] smoking history. Problem Noted Date Diagnosed Date Lung mass 10/29/2024 Malignant neoplasm of both lungs 05/15/2024 Malignant [...] PRN. Assessment & Plan (05/21/2023 12:22 PM JOINT CUTTER MACHINE): Pain overlying right lateral chest wall. TTP [...] 12/12/2022 Pulmonary nodules 12/07/2022 Assessment & Plan (12/16/2024 9:39 AM CDT): Monitored by pulm Dr. Cardoso. Hx malignant nodule s/p resection and radiation. Recent bronchoscopy (04/2024) negative for malignancy but with multiple new acute nodules suspected to be infectious vs inflammatory. Finished round of abx and repeat CT (09/2024) showed multiple new pulmonary nodules throughout the left lung measuring up to nearly 3 cm. Given the short interval between scans these are likely of an infectious or inflammatory etiology. She is currently on prednisone for 6 weeks with follow up with pulm at the end of December for repeat imaging. Also on Bactrim for UTI prophylaxis from steroids. -Discussed hx of RA and possibility for inflammatory nodules; however RA appears well controlled at this time. -Advised to continue pulmonology's plan and will await CT results. -If nodules are found to be from RA/MTX, then could consider adjusting treatment for RA with either changing to LEF vs AZA. Assessment & Plan (10/20/2024 2:31 PM CDT): [...] (11/21/2021): Added automatically from request for surgery [id number] Bronchogenic lung cancer, right 09/12/2021 COPD (chronic [...] (09/01/2021): Added automatically from request for surgery [id number] [facility] current use 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 drug 2021 Assessment & Plan (12/16/2024 9:38 AM CDT): Hepatitis negative: 02/2021 Routine lab monitoring while on MTX. Assessment & Plan (09/11/2024 8:57 AM CDT): Hepatitis negative: 02/2021 Assessment & Plan (04/17/2024 9:13 AM JOINT CUTTER MACHINE): Hepatitis negative: 02/2021 Assessment & Plan (10/08/2023 9:05 AM CDT): Hepatitis negative: 02/2021 Assessment & Plan (07/09/2023 9:21 AM CDT): Hepatitis negative: 02/2021 Assessment & Plan (05/21/2023 10:12 AM JOINT CUTTER MACHINE): Hepatitis negative: 02/2021 Assessment & Plan (02/12/2023 11:59 AM CDT): Hepatitis negative: 02/2021 Assessment & Plan (10/09/2022 1:07 PM CDT): Hepatitis negative: 02/2021 Assessment & Plan (05/15/2022 10:43 AM JOINT CUTTER MACHINE): Hepatitis negative: 02/2021 Assessment & Plan (01/16/2022 10:56 AM CDT): Hepatitis negative: 02/2021 Assessment & Plan (10/17/2021 12:11 PM CDT): Hepatitis negative: 02/2021 Assessment & Plan (06/20/2021 10:12 AM JOINT CUTTER MACHINE): Hepatitis negative: 02/2021 Rheumatoid arthritis 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 Seropositive RA [...] months. Sooner if needed. Assessment & Plan (10/20/2024 2:32 PM CDT): [...] needed. Assessment & Plan (04/17/2024 9:44 AM JOINT CUTTER MACHINE): Cdai in remission. Seropositive RA (+RF, CCP) [...] needed. Assessment & Plan (05/21/2023 12:18 PM JOINT CUTTER MACHINE): Low cdai. Seropositive RA (+RF, CCP) that [...] needed. Assessment & Plan (05/15/2022 10:55 AM JOINT CUTTER MACHINE): Low cdai. Seropositive RA (+RF, CCP) that [...] needed. Assessment & Plan (06/20/2021 10:11 AM JOINT CUTTER MACHINE): Seropositive RA (+RF, CCP) that remains well controlled with MTX 12.5mg weekly. Main complaints are pain involving the R 4th PIP joints and cervical spine which are degenerative however is responding well to Voltaren gel otc. Will continue MTX 12.5mg weekly and folic acid 1mg daily.Routine labs today. Follow up in 3 months. Sooner if needed. Assessment & Plan (03/14/2021 10:50 AM JOINT CUTTER MACHINE): Seropositive RA (+RF, CCP) that remains well [...] Koch. Assessment & Plan (02/28/2021 9:54 AM JOINT CUTTER MACHINE): 70-year-old female with PMHx of HTN, COPD, [...] PM&R. Assessment & Plan (04/17/2024 9:13 AM JOINT CUTTER MACHINE): Pain worse with activity and improved with [...] PM&R. Assessment & Plan (05/21/2023 12:11 PM JOINT CUTTER MACHINE): Pain worse with activity and improved with [...] exercises. Assessment & Plan (05/15/2022 10:43 AM JOINT CUTTER MACHINE): Pain worse with activity and improved with [...] exercises. Assessment & Plan (06/20/2021 10:11 AM JOINT CUTTER MACHINE): Pain worse with activity and improved with rest. Denies radiating pain. 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 Patient defers PT and worried about NSAIDs with her current medication regimen. Taking tylenol otc prn with some relief. Using Voltaren gel otc prn with good relief. Continue home exercises. Assessment & Plan (03/14/2021 10:52 AM JOINT CUTTER MACHINE): Pain worse with activity and improved with [...] pain. Assessment & Plan (02/28/2021 9:57 AM JOINT CUTTER MACHINE): Pain worse with activity and improved with [...] Encounters Date Type Department Care Team Description 01/06/2025 Telephone [facility] Pulmonary at [address] [place] [address] Bertha Churchill LPN concerns 12/25/2024 Telephone [facility] Pulmonary at [address] [place] [address] scan 12/23/2024 Telephone [facility] Pulmonary at [address] [place] [address] Nilsa Ayala LPN 12/17/2024 Results Follow-Up [address] [address] Martina Elizabeth PA Comprehensive metabolic panel, CBC with auto differential, Erythrocyte sedimentation rate, CRP (acute phase) 12/16/2024 9:00 AM CDT Office Visit [address] [address] Martina Elizabeth PA 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 factor (HCC) (Primary Dx); Pulmonary nodules; [facility] current use 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 drug 11/27/[address] [address] Katharine Chavis 11/25/2024 Orders Only [facility] Pulmonary at [address] [address] Frankie Cardoso MD Pulmonary nodules (Primary Dx) 11/24/2024 Orders Only [facility] Pulmonary at [address] [address] Frankie Cardoso MD 11/20/2024 Telephone [facility] Pulmonary at [address] [place] [address] Bertha Churchill LPN sick call follow up 11/13/2024 10:45 AM CDT Office Visit [facility] Pulmonary at [address] [place] [address] Frankie Cardoso MD Pulmonary nodules (Primary Dx); Chronic obstructive pulmonary disease, unspecified COPD type (HCC); Malignant neoplasm of lower lobe, right bronchus or lung (HCC); Malignant neoplasm of upper lobe, left bronchus or lung (HCC); Malignant neoplasm of upper lobe, right bronchus or lung (HCC); Chronic respiratory failure with hypoxia (HCC) 11/06/2024 7:30 AM CDT - 11/06/2024 9:15 AM CDT Surgery [facility] Operating Room [address] [place] [address] Frankie Cardoso MD RADIAL BRONCHOSCOPY ENDOBRONCHIAL ULTRASOUND-transcronc hial biopsies of DAVIDA nodule and Lingula nodule 11/06/2024 7:27 AM CDT Anesthesia Event [facility] Operating Room [address] [place] [address] Ish Batista MD 11/06/2024 6:19 AM CDT - 11/06/2024 10:55 AM CDT Hospital Encounter [facility] Operating Room [address] [place] [address] Frankie Cardoso MD Lung mass Discharge Disposition: Discharge to home or self care 10/31/2024 Telephone [facility] Pulmonology [address] [facility] [address] [place] [phone] Frankie Cardoso MD 10/22/2024 Telephone [facility] Pulmonary at [address] [address] Nilsa Ayala LPN [employer] question 10/20/2024 11:00 AM CDT Office Visit [facility] Pulmonary at [address] [place] [address] Deborah Palafox NP Centrilobular emphysema (HCC) (Primary Dx); Pulmonary nodules; 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 factor (HCC) 10/11/2024 9:00 AM CDT - 10/11/2024 11:59 PM CDT Hospital Encounter [facility] [address] [place] [address] Pulmonary nodules Discharge Disposition: Discharge to home or self care 10/10/2024 Telephone [facility] [address] [place] [address] Taz Sultana from Last 3 Months Immunizations [...] 01/16/2018,11/08/2017,06/23/2009 Surgical History Surgery Date Site/Laterality Comments AL UNLISTED PROCEDURE BREAST 04/23/1977 - 04/22/1978 Right Cyst removed from R breast RHINOPLASTY 04/23/1989 - 04/22/1990 Deviated septum OVARY SURGERY 04/23/1994 - 04/22/1995 Cyst x2 removed from overies VULVA SURGERY 03/28/2012 HAWA III excision VULVA SURGERY 03/04/2013 HAWA III excision VULVA SURGERY 11/10/2018 HAWA III excision VULVA SURGERY 04/08/2019 HAWA III excision BREAST SURGERY Right LUNG LOBECTOMY Right COLONOSCOPY LUNG BIOPSY BRONCHOSCOPY 04/23/2024 - 05/23/2024 Medical History Medical History Date Comments Personal history of other di seases of the circulatory system History of hypertension - (A dded by TW Conv) Hypertension Arthritis COPD (chronic obstructive pu lmonary disease) Lung cancer (HCC) 2 separate rou nds of radiation, one in the right lung and one in the left lung Vulva cancer Osteoporosis Arrhythmia Atrial Fibrillat ion- diagnosed on 04-26-2024 Anxiety Oxygen dependent Patient wears 3 L/NC continuous during the day and 2.5-3L/NC at bedtime Lung disease GERD (gastroesophageal reflux disease) Family History Medical History Relation Name Comments [...] do you have a drink containing alcohol? Never 11/13/2024 Q2: How many drinks containi ng alcohol do you have on a typical day when you are drinking? Patient does not drink Q3: How often do you have si x or more drinks on one occasion? Never 11/13/2024 Personal Safety Answer Date Recorded Have you ever been in or are you currently in a harmful physical or emotional relationship or is someone making you feel afraid or unsafe? Denies 11/06/2024 Comments No Sex and Gender Information Value Date Recorded Sex Assigned at Not on file Legal Sex Female 10:10 AM JOINT CUTTER MACHINE Gender Identity Not on file Sexual Orientation Not on file Obstetrics History Last Filed Vital Signs Vital Sign Reading Time Taken Comments Blood Pressure 138/82 12/16/2024 8:48 AM CDT Pulse 79 12/16/2024 8:48 AM CDT Temperature 36.7 C (98.1 F) 11/13/2024 10:45 AM CDT Respiratory Rate 20 11/13/2024 10:45 AM CDT Oxygen Saturation 95% 12/16/2024 8:48 AM CDT Inhaled Oxygen Concentration - - Weight 56.2 kg (124 lb) 12/16/2024 8:48 AM CDT Height 162.6 cm (5' 4) 11/13/2024 10:45 AM CDT Body Mass Index 21.28 11/13/2024 10:45 AM CDT Plan of Treatment Health Maintenance Due Date Last Done Comments Depression Screening 1950 Osteoporosis Screening-Bone Density Scan 1950 DTaP/Tdap/Td Vaccine (1 - Tdap) 1959 Hepatitis B Screening 1966 Well Visit 65+ 2013 Zoster Vaccine (1 of 2) 03/13/2018 01/17/20 18, 11/08/2017, 06/23/2009 Fall Risk Assessment 12/13/2023 12/12/2022, 11/25/19 23 Covid-19 Vaccine (2024-2 6 season) 2024 03/19/2021, 03/19/2021, 07/13/2020, Additional history exists Influenza Vaccine (#1) 2024 4, 01/27/2022, 01/26/2021, Additional history exists Pneumococcal vaccine 65+ Completed 05/07/2017, 01/22 Hepatitis C Screening Completed 02/28/2021 Procedures Procedure Name Priority Date/Time Associated Diagnosis Comments CRP (ACUTE PHASE) Routine 12/16/2024 9:1 2 AM CDT 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 factor (HCC) 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 ERYTHROCYTE SEDIMENTATION RATE Routine 12/16/2024 9:12 AM CDT 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 factor (HCC) [facility] current use 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 drug CBC WITH AUTO DIFFERENTIAL Routine 12/16/2024 9:12 AM CDT 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 factor (HCC) 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 COMPREHENSIVE METABOLIC PANEL Routine 12/16/2024 9:12 AM CDT 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 factor (HCC) [facility] current use 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 drug SURGICAL PATHOLOGY Routine 11/06/2024 9: 41 AM CDT Lung mass XR CHEST 1 VIEW ED Urgent/IP Urgent 11/06/2024 9:29 AM CDT FL FLUOROSCOPY < 1 HOUR IP Routine 11/07/19 8:49 AM CDT XR CHEST 1 VIEW IP Routine 11/06/2024 8:49 AM CDT TISSUE AEROBIC AND ANAEROBIC CULTURE AND GRAM STAIN Routine 11/06/2024 8:00 AM CDT MYCOLOGY (FUNGAL) CULTURE Routine 11/06/2024 8:00 AM CDT MYCOBACTERIOLOGY AFB CULTURE AND ACID-FAST STAIN Routine 11/06/2024 8:00 AM CDT AL AN ELECTIVE ENDOTRACHEAL AIRWAY Routine 11/06/2024 7:38 AM CDT BRONCHOSCOPY ENDOBRONCHIAL ULTRASOUND 11/06/2024 7:27 AM CDT Lung mass ECG 12-LEAD STAT 11/06/2024 7:[address] CHEST WO CONTRAST Schedule Routine, Read Routine (OP Routine) 10/11/2024 9:14 AM CDT Pulmonary nodules HEPATITIS PANEL, ACUTE Routine 10:09 AM JOINT CUTTER MACHINE 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 factor (HCC) Fatigue, unspecified type [facility] current use 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 drug from Last 3 Months or Most Recently Relevant to Health Maintenance Results * (ABNORMAL) CBC with auto differential (12/16/2024 9:12 AM CDT) WBC 10.4 3.8 - 10.8 Thousand/u L [facility] RBC, POC 3.43(L) 3.80 - 5.10 Million/uL [facility] Hgb 10.3(L) 11.7 - 15.5 g/dL [facility] Hct 33.2(L) 35.0 - 45.0 % [facility] MCV 96.8 80.0 - 100.0 fL [facility] MCH 30.0 27.0 - 33.0 pg [facility] MCHC 31.0(L) 32.0 - 36.0 g/dL [facility] Comment: For adults, a slight decrease in the calculated MCHC value (in the range of 30 to 32 g/dL) is most likely not clinically significant; however, it should be interpreted with caution in correlation with other red cell parameters and the patient's clinical condition. Rdw 16.5(H) 11.0 - 15.0 % [facility] Platelets 278 140 - 400 Thousand/u L [facility] MPV 10.2 7.5 - 12.5 fL [facility] Neutrophils, abs 9,547(H) 1,500 - 7,800 cells/uL [facility] Lymphocytes, abs 572(L) 850 - 3,900 cells/uL [facility] Monocyte abs 135(L) 200 - 950 cells/uL [facility] Eosinophils, abs 125 15 - 500 cells/uL [facility] Basophils, abs 21 0 - 200 cells/uL [facility] Neutrophils 91.8 % [facility] Lymphocyte pct 5.5 % [facility] Monocytes 1.3 % [facility] Eosinophils 1.2 % [facility] Basophils 0.2 % [facility] Blood 12/16/2024 9:12 AM CDT 12/16/2024 9:13 AM CDT Martina JONES LAB BLOOD ORDERABLES Final Result Performing Organization Address City/[facility]/ZIP Co de Phone Number QUEST [facility] [address] [place] [address] * Erythrocyte sedimentation rate (12/16/2024 9:12 AM CDT) [facility] Erythrocyte sedimentation rate 29 < OR = 30 mm/h [facility] Blood 12/16/2024 9:12 AM CDT 12/16/2024 9:13 AM CDT Martina JONES LAB BLOOD ORDERABLES Final Result Performing Organization Address City/[facility] Co de Phone Number QUEST [facility] [address] [place] [address] * (ABNORMAL) CRP (acute phase) (12/16/2024 9:12 AM CDT) C-RP 47.4(H) <8.0 mg/L [facility] Blood 12/16/2024 9:12 AM CDT 12/16/2024 9:13 AM CDT us Martina JONES LAB BLOOD ORDERABLES Final Result [facility] [address] [place] [address] * (ABNORMAL) Comprehensive metabolic panel (12/16/2024 9:12 AM CDT) Pathologist [facility] Glucose 99 65 - 99 mg/dL [facility] Comment: Fasting reference interval BUN 23 7 - 25 mg/dL [facility] Creatinine 0.97 0.60 - 1.00 mg/dL [facility] eGFR 61 > OR = 60 mL/min/1.7 3m2 [facility] BUN/creat ratio SEE NOTE: 6 - 22 (calc) [facility] Comment: Not Reported: BUN and Creatinine are within reference range. Sodium 138 135 - 146 mmol/L [facility] Potassium, pl 4.3 3.5 - 5.3 mmol/L [facility] Chloride 101 98 - 110 mmol/L [facility] CO2 28 20 - 32 mmol/L [facility] Calcium 9.2 8.6 - 10.4 mg/dL [facility] Protein, sr 5.9(L) 6.1 - 8.1 g/dL [facility] Albumin 3.5(L) 3.6 - 5.1 g/dL [facility] GLOBULIN 2.4 1.9 - 3.7 g/dL (calc) [facility] Alb/glob ratio 1.5 1.0 - 2.5 (calc) [facility] Bilirubin, total 0.4 0.2 - 1.2 mg/dL [facility] Alk phos 60 37 - 153 U/L [facility] AST 12 10 - 35 U/L [facility] ALT (SGPT) 12 6 - 29 U/L [facility] Blood 12/16/2024 9:12 AM CDT 12/16/2024 9:13 AM CDT Martina JONES LAB BLOOD ORDERABLES Final Result [address] [address] [place] [address] * Surgical pathology (11/06/2024 9:41 AM CDT) Tissue (Lung Biopsy) 11/06/2024 8:14 AM CDT Tissue specimen (specimen) (Lung Biopsy) 11/06/2024 8:14 AM CDT Narrative PATHOLOGY [facility] - 11/10/2024 3:06 PM CDT EPIC results best viewed via link to PDF [facility] Department of Pathology [address] [place] [address] Note to Patients: This report may contain [...] Final Report Patient Name: DARRION GUILLORY Address: [address] [place] [address] Gender: F : 1950 (Age: 74) Service: Surgery Location: [facility] Hospital #: [id number] Patient Type: [facility] Taken: 11/06/2024 Received: 11/06/2024 Accessioned: 11/06/2024 Reported: 11/10/2024 Physician(s):Frankie Cardoso M.D. Diagnosis: A. Lung, left upper lobe nodule, transbronchial biopsy: - Ulcerated mucosa with underlying necrosis and acute inflammation. - GMS and AFB stain negative for fungal elements and acid-fast bacilli, respectively. - No evidence of malignancy. B. Lung, lingula nodule, transbronchial biopsy: - Fragments of benign bronchial wall and lung parenchyma with anthracotic pigment. - No definitive histologic evidence of a mass forming lesion. - GMS and AFB stain negative for fungal elements and acid-fast bacilli, respectively. Galen Peralta M.D. Report Electronically Reviewed and Signed Out By Galen Peralta M.D. 11/10/2024 15:06:55 Specimen(s) Received: A: Left upper lobe nodule B: Lingula nodule Microscopic Description: A. Sections show fragments of bronchial wall significant for underlying parenchymal necrosis and abscess formation. The bronchial wall appears ulcerated and there is an overlying fibrinopurulent exudate. Areas of calcification are appreciated. There is no significant cytologic atypia or definitive features of malignancy. Additionally, a small panel of special and immunohistochemical stains were performed with adequate controls. A pancytokeratin AE1/AE3 shows no evidence of an infiltrating carcinoma. An AFB and GMS stain show no evidence of acid-fast bacilli or fungal elements, respectively. Correlation with cultures is advised. B. Sections show several fragments of bronchial wall which is lined by benign respiratory epithelium. There is some underlying cartilage and benign lung parenchyma present with scattered anthracotic pigment. No significant acute inflammatory infiltrate or evidence of malignancy is seen. Additionally, a small panel of special and immunohistochemical stains was performed with adequate controls. A pancytokeratin AE1/AE3 shows a benign pattern. An AFB and GMS stains show no evidence of acid-fast bacilli or fungal elements, respectively. Clinical History: Lung mass. Radial bronchoscopy endobronchial ultrasound, transbronchial biopsies of DAVIDA nodule and lingula nodule. Gross Description: The specimen is submitted in two formalin containers labeled DARRION PASTORA. A. The first container is labeled left upper lobe nodule. It is 4 pickard tissue fragments measuring 1 mm. All in A. B. The second container is labeled lingula. It is 3 pickard tissue fragments measuring 1 mm. All in B. T.A. Mechelle Quintanilla., P.A./Penny Cunningham M.D. REPORT IMAGES AND SCANNED DOCUMENTS, IF INCLUDED, ONLY VIEWABLE IN PDF VERSION OF REPORT The performance characteristics of some immunohistochemical stains, fluorescence in-situ hybridization tests and immunophenotyping by flow cytometry cited in this report (if any) were determined by the Surgical Pathology Department at [facility] as part of an ongoing air quality technician program and in compliance with federally mandated [...] characteristics determined by the Surgical Pathology Department [facility]. It has not been cleared or approved by the U. S. Food and Drug Administration. Note for decalcified specimens: This assay has not been validated on decalcified tissues. Results should be interpreted with caution given the possibility of false negativity on decalcified specimens Frankie Cardoso MD LAB PATHOLOGY ORDERABLES Final R esult PATHOLOGY [facility] ([place]) [address] [id number] * X-ray chest 1 view (Portable) (11/06/2024 9:29 AM CDT) Anatomical Region Laterality Modality Body, Chest N/A Computed Radiogr aphy 11/06/2024 12:5 7 PM CDT Narrative 11/06/2024 1:03 PM CDT EXAM DESCRIPTION: XR CHEST 1 VIEW REASON FOR STUDY: post bronchoscopy Post bronch TECHNIQUE: 1 10/11/2024, 05/21/2019 radiographic view(s) of the chest. COMPARISON: 10/11/2024, 05/21/2024. FINDINGS: LUNGS: Opacities at the lung bases are similar to 05/21/2024. Similar small right pleural effusion. There is a small left pleural effusion. A linear structure is present at the left lung apex oriented diagonally which appears to extend beyond the chest wall and there are vascular markings extending beyond this site, compatible with a skin fold. No pneumothorax is seen.. There are opacities in the left upper lobe which appear mildly increased compared to 10/11/[address], allowing for differences in technique, likely a combination of the known nodules and superimposed post bronchoscopy change. HEART/MEDIASTINUM: Heart size and cardiomediastinal contours are unchanged LINES/TUBES: None. BONES: No acute displaced fracture or aggressive bone lesion is identified. Visualized upper abdomen is grossly unremarkable. IMPRESSION: 1. No evidence of pneumothorax 2. Mildly increased left upper lobe opacities, likely a combination of the previously seen nodules and superimposed post bronchoscopy change. 3. Unchanged bibasilar opacities and small right pleural effusion. Small left pleural effusion. THIS IS AN ELECTRONICALLY VERIFIED FINAL REPORT 11/06/2024 1:03 PM - Electronically signed by Austin Juárez M.D. MZ: MZ Report ID: [id number] Reading Location: [place] [address] Procedure Note Austin Juárez MD - 11/06/2024 EXAM DESCRIPTION: XR CHEST 1 VIEW REASON FOR STUDY: post bronchoscopy Post bronch TECHNIQUE: 1 10/11/2024, 05/21/2019 radiographic view(s) of the chest. COMPARISON: 10/11/2024, 05/21/2024. FINDINGS: LUNGS: Opacities at the lung bases are similar to 05/21/2024. Similarsmall right pleural effusion. There is a small left pleural effusion. A linear structure is present at the left lung apex oriented diagonally whichappears to extend beyond the chest wall and there are vascular markings extending beyond this site, compatible with a skin fold. No pneumothorax is seen.. There are opacities in the left upper lobe which appear mildly increased compared to 10/11/[address], allowing for differences in technique,likely a combination of the known nodules and superimposed post bronchoscopychange. HEART/MEDIASTINUM: Heart size and cardiomediastinal contours areunchanged LINES/TUBES: None. BONES: No acute displaced fracture or aggressive bone lesion isidentified. Visualized upper abdomen is grossly unremarkable. IMPRESSION: 1. No evidence of pneumothorax 2. Mildly increased left upper lobe opacities, likely a combination ofthe previously seen nodules and superimposed post bronchoscopy change. 3. Unchanged bibasilar opacities and small right pleural effusion. Small left pleural effusion. THIS IS AN ELECTRONICALLY VERIFIED FINAL REPORT 11/06/2024 1:03 PM - Electronically signed by Austin Juárez M.D. MZ: MZ Report ID: [id number] Reading Location: [id number] Frankie Cardoso MD IM XR PROCEDURES Final Result * XR Chest 1 View (11/06/2024 8:49 AM CDT) Anatomical Region Laterality Modality Body, Chest N/A Radio Fluoroscop y 11/14/2024 11:1 3 PM CDT Narrative 11/14/2024 11:15 PM CDT EXAM DESCRIPTION: XR CHEST 1 VIEW REASON FOR STUDY: pain Bronch 141 sec ft 24.21 mgy Bronch 141 sec ft 24.21 mgy DAVIDA lung mass TECHNIQUE: Multiple fluoroscopy view(s) of the chest. COMPARISON: 05/21/2024 Findings/impression: Fluoroscopy was utilized for left lung procedure. The images are assumed adequate for the purposes intended. THIS IS AN ELECTRONICALLY VERIFIED FINAL REPORT 11/14/2024 11:15 PM - Electronically signed by Wilmer Gold M.D. KH: KH Report ID: [id number] Reading Location: [id number] Procedure Note Wilmer Gold MD - 11/14/2024 EXAM DESCRIPTION: XR CHEST 1 VIEW REASON FOR STUDY: pain Bronch 141 sec ft 24.21 mgy Bronch 141 sec ft 24.21 mgy DAVIDA lung mass TECHNIQUE: Multiple fluoroscopy view(s) of the chest. COMPARISON: 05/21/2024 Findings/impression: Fluoroscopy was utilized for left lung procedure.The images are assumed adequate for the purposes intended. THIS IS AN ELECTRONICALLY VERIFIED FINAL REPORT 11/14/2024 11:15 PM - Electronically signed by Wilmer Georges.D. KH: LIZBETH Report ID: [id number] Reading Location: [id number] Frankie Cardoso MD IMG XR PROCEDURES Final Result * FL Fluoroscopy < 1 Hour (11/06/2024 8:49 AM CDT) Narrative [facility] - 11/06/2024 8:50 AM CDT The images from this study are not interpreted by Radiology. Please refer to the physician's procedure / OR operative note. Frankie Cardoso MD IMG FLUOROSCOPY PROCEDURES Final Result [facility] * Tissue aerobic and anaerobic culture and gram stain Tissue Lobe, left upper (11/06/2024 8:00 AM CDT) Direct Specimen Exam Stain: No polymorphonuclear leukocytes seen. No organisms seen. Comment:Testing performed by : [facility], [address] [place]., [address] Report Final Report: No growth [facility] ([place]) Comment:Testing performed by : [facility], [address] [place]., [address] Tissue (Lobe, left upper) 11/06/2024 8:00 AM CDT 11/06/2024 1:[address] [facility] ([facility]) - 11/09/2024 9:50 AM CDT Left upper lobe nodule Testing performed by [facility] ([phone]) Specimens submitted from normally sterile body sites will have all bacterial morphotypes identified. Specimens that contain grossly mixed vanna and/or are from body sites that are not normally sterile will be examined for Staphylococcus aureus, Pseudomonas aeruginosa, beta-hemolytic strep, vancomycin-resistant Enterococcus, Bacteroides, Parabacteroides, Clostridium perfringens and fungus. If any of these are isolated, the organism will be reported. Current interpretive data was last revised on 2019. Frankie Cardoso MD LAB MICROBIOLOGY - GENERAL ORDER SOFÍA Final Result [facility] ([place]) [address] [facility] [place] [address] * Mycology (fungal) culture Tissue Lobe, left upper (11/06/2024 8:00 AM CDT) Report Final Report: No growth of fungus Comment:Testing performed by : [facility], [address] [place]., [address] Tissue (Lobe, left upper) 11/06/2024 8:00 AM CDT 11/06/2024 1:[address] [facility] [facility] ([place]) - 12/04/2024 7:18 AM CDT Left upper lobe nodule Testing performed by [facility] ([phone]). Frankie Cardoso MD LAB MICROBIOLOGY - GENERAL ORDER SOFÍA Final Result Performing Organization Address [facility] Co de Phone Number [facility] ([place]) [address] [facility] [place] [address] * Mycobacteriology (AFB) culture and acid-fast stain Tissue Lobe, left upper (11/06/2024 8:00 AM CDT) Direct Specimen Exam Stain: No Acid-fast bacilli seen Comment:Testing performed by : [facility], [address] [place]., [address] Report Final Report: No growth of acid-fast bacilli [facility] (YINA) Comment:Testing performed by : [facility], [address] [place]., [address] Tissue (Lobe, left upper) 11/06/2024 8:00 AM CDT 11/06/2024 1:[address] [facility] [facility] ([facility]) - 01/05/2025 8:03 AM CDT Left upper lobe nodue Testing performed by [facility] ([phone]). us Frankie Cardoso MD LAB MICROBIOLOGY - GENERAL ORDER SOFÍA Final Result [facility] [place] 1 [facility] Department of Laboratories [place], [place] [id number] * AL AN ELECTIVE ENDOTRACHEAL AIRWAY (11/06/2024 7:38 AM CDT) Narrative Star Lindquist CRNA - 11/06/2024 7:38 AM CDT Star Lindquist CRNA 11/06/2024 7:38 AM Airway Patient location: OR Urgency: elective Indications for airway management: anesthesia Difficult airway: no Staff: Placed by: PSYCHOTHERAPIST: Star Lindquist CRNA Emergent airway documentation: Risks and benefits discussed: yes Consent obtained: yes Consent given by: patient Airway prep: Preoxygenated: yes Patient position: sniffing MILS maintained throughout: yes Mask difficulty assessment: 1 - vent by mask Sedation level during airway: GA Final airway details: Final airway type: endotracheal airway Tube type: ETT Cuffed: yes Technique used for successful ETT placement: video laryngoscopy Devices/Methods used in placement: stylet Insertion site: oral Blade type: Rosa Video blade type: Alcantara Blade size: 3 Cormack-Lehane (video): grade I - full view of glottis Cuff volume: 7 mL Cuff inflated with: air ETT to teeth: 20 cm Placement verified by: auscultation and CO2 detection Airway secured with: silk tape Number of attempts: 1 us Ish Batista MD ANESTHESIA ORDERABLES Final Result * ECG 12 lead (11/06/2024 7:06 AM CDT) 11/06/2024 7:06 AM CDT Narrative [facility] - 11/06/2024 7:58 AM CDT Vent Rate: 90 bpm RR Interval: 666 msec AL Interval: 197 msec QRS Duration: 84 msec QT Interval: 341 msec QTC Interval: 388 msec P-R-T Scalf: 50 - 5 - 53 degrees IMPRESSION: SINUS RHYTHM Baseline artifact No prior EKG for comparison Electronically Signed By: Dr Dakota Gómez us Ish Batista MD ECG ORDERABLES Final Result [employer] [facility] * CT chest without contrast (10/11/2024 9:14 [...] and lymph node dissection September 11. Clinical ufd-zkgmb-ctjd lung cancer right lower lobe status post [...] Status post right upper lobectomy. Background of ommaeusz-mk-txxcmk emphysematous changes. Bilateral lung base scarring. Interval [...] Christian Molina M.D. NS: NS Report ID: [id number] Reading Location: [id number] Procedure Note Christian Molina MD - 10/24/2024 [...] and lymph node dissection September 11. Clinical ugi-zkpio-dxfd lung cancer right lower lobe status post [...] LUNGS: Status post right upper lobectomy. Background cqvxxsojpo-ae-wvwabe emphysematous changes. Bilateral lung base scarring. Interval [...] Christian Molina M.D. NS: NS Report ID: [id number] Reading Location: [id number] us Frankie Cardoso MD IMG CT PROCEDURES Final Result * Hepatitis panel, acute (02/28/2021 10:09 AM JOINT CUTTER MACHINE) Hep A IgM NON-REACTI VE NON-REACT MARIANNA [facility] Comment: For additional information, please refer to http://HookLogic.Microbonds/faq/DVB015 (This link is being provided for informational/ [...] a test for HCV RNA (test code 30404) is suggested. For additional information please refer to http://HookLogic.Microbonds/faq/HIZ44p7 (This link is being provided for informational/ educational purposes only.) Blood specimen (specimen) 02/28/2021 10:09 AM JOINT CUTTER MACHINE 02/28/2021 10:15 AM JOINT CUTTER MACHINE Martina JONES LAB MICROBIOLOGY - NERAL ORDERABLES Final Result [facility] [address] [address] SOHAIL Holder [id number] from Last 3 Months or Most Recently Relevant to Health Maintenance Insurance [facility] HE[facility]ARE HEALTHCARE Advance Directives For more information, please contact: [phone] * Full Code (Latest Code Status on File) Date Activated Date Inactivated Comments 09/12/2021 4:12 PM 09/14/2021 4:07 PM Care Teams Painter Shipyard Relationship Specialty Start Date End Date Terry Bender DO [address] [place] [address] PCP - General Internal Medicine 12/07/23 Wilmer Taylor MD [address] [id number] Referring Physician Obstetrics and Gynecology 05/09/12 Jeffrey Koch MD [address] [place] [address] Consulting Physician Rheumatology 02/03/21 Luz Lewis MD [address] [place] [address] Referring Physician Surgery 12/14/21 Raleigh Jay MD PhD [address] [place] [address] Radiation Oncologist Radiation Oncology 12/12/22 Ranjan Cazares MD [address] [place] [address] Surgeon Thoracic Surgery 12/12/22 Martina Elizabeth PA [address] [place] [address] Physician Body Straightener Rheumatology 10/20/24
--- OUTSIDE RECORDS SUMMARY | 2025-01-06 11:44 | XMS_ITS ---
Author Organization [facility] Address [address] [place] [address] Care Team Providers Care Supervisor Laboratory Animal Facility Name Role Phone Wilmer Taylor MD Unavailable [phone] Jeffrey Koch MD Unavailable [phone] Luz Lewis MD Unavailable [phone] Raleigh Jay MD PhD Unavailable Ranjan Cazares MD Unavailable [phone] Terry Bender DO Primary Care Provider [phone] Martina Elizabeth Unavailable Active Problems Patient Care Coordination No te [...] PRN. Assessment & Plan (05/21/2023 12:22 PM POUNCER): Pain overlying right lateral chest wall. TTP [...] (11/21/2021): Added automatically from request for surgery [id number] Bronchogenic lung cancer, right 09/12/2021 COPD (chronic [...] (09/01/2021): Added automatically from request for surgery [id number] terminal carman current use 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 drug 2021 Assessment & Plan (12/16/2024 9:38 AM CDT): Hepatitis negative: 02/2021 Routine lab monitoring while on MTX. Assessment & Plan (09/11/2024 8:57 AM CDT): Hepatitis negative: 02/2021 Assessment & Plan (04/17/2024 9:13 AM POUNCER): Hepatitis negative: 02/2021 Assessment & Plan (10/08/2023 9:05 AM CDT): Hepatitis negative: 02/2021 Assessment & Plan (07/09/2023 9:21 AM CDT): Hepatitis negative: 02/2021 Assessment & Plan (05/21/2023 10:12 AM POUNCER): Hepatitis negative: 02/2021 Assessment & Plan (02/12/2023 11:59 AM CDT): Hepatitis negative: 02/2021 Assessment & Plan (10/09/2022 1:07 PM CDT): Hepatitis negative: 02/2021 Assessment & Plan (05/15/2022 10:43 AM POUNCER): Hepatitis negative: 02/2021 Assessment & Plan (01/16/2022 10:56 AM CDT): Hepatitis negative: 02/2021 Assessment & Plan (10/17/2021 12:11 PM CDT): Hepatitis negative: 02/2021 Assessment & Plan (06/20/2021 10:12 AM POUNCER): Hepatitis negative: 02/2021 Rheumatoid arthritis involvi ng [...] needed. Assessment & Plan (04/17/2024 9:44 AM POUNCER): Cdai in remission. Seropositive RA (+RF, CCP) [...] needed. Assessment & Plan (05/21/2023 12:18 PM POUNCER): Low cdai. Seropositive RA (+RF, CCP) that [...] needed. Assessment & Plan (05/15/2022 10:55 AM POUNCER): Low cdai. Seropositive RA (+RF, CCP) that [...] needed. Assessment & Plan (06/20/2021 10:11 AM POUNCER): Seropositive RA (+RF, CCP) that remains well controlled with MTX 12.5mg weekly. Main complaints are pain involving the R 4th PIP joints and cervical spine which are degenerative however is responding well to Voltaren gel otc. Will continue MTX 12.5mg weekly and folic acid 1mg daily.Routine labs today. Follow up in 3 months. Sooner if needed. Assessment & Plan (03/14/2021 10:50 AM POUNCER): Seropositive RA (+RF, CCP) that remains well [...] Koch. Assessment & Plan (02/28/2021 9:54 AM POUNCER): 70-year-old female with PMHx of HTN, COPD, [...] PM&R. Assessment & Plan (04/17/2024 9:13 AM POUNCER): Pain worse with activity and improved with [...] PM&R. Assessment & Plan (05/21/2023 12:11 PM POUNCER): Pain worse with activity and improved with [...] exercises. Assessment & Plan (05/15/2022 10:43 AM POUNCER): Pain worse with activity and improved with [...] exercises. Assessment & Plan (06/20/2021 10:11 AM POUNCER): Pain worse with activity and improved with rest. Denies radiating pain. 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 Patient defers PT and worried about NSAIDs with her current medication regimen. Taking tylenol otc prn with some relief. Using Voltaren gel otc prn with good relief. Continue home exercises. Assessment & Plan (03/14/2021 10:52 AM POUNCER): Pain worse with activity and improved with [...] pain. Assessment & Plan (02/28/2021 9:57 AM POUNCER): Pain worse with activity and improved with [...] Points Delivered [id number] 01/01/2023 - 08/31/2023 5,500 Lifetime Dose Tracking * Chemical Lifetime Dose Automatic Entry Manual Entr y Fluoro Time 2.35 minutes 2.35 minutes 0 minutes Air kerma at the reference point (Ka,r) 24.21 mGy 2 4.21 mGy 0 mGy
--- OUTSIDE RECORDS SUMMARY | 2025-01-06 11:44 | XMS_ITS | Encounter Summary ---
Author Organization [facility] logy Address [address] [place] [address] Phone Care Team Providers Care Software Packager Name Role Phone Wilmer Taylor MD Unavailable [phone] Jeffrey Koch MD Unavailable [phone] Luz Lewis MD Unavailable [phone] [facility] PhD Unavailable [phone] Ranjan Cazares MD Unavailable [phone] Terry Bender DO Primary Care Provider [phone] Martina Elizabeth Unavailable [phone] Encounter Details Date Type Department Care Team (Latest Contact Info) Description 12/17/2024 Results Follow-Up [facility] [address] [place] [address] Martina Elizabeth PA [address] [place] [address] Comprehensive metabolic panel, CBC with [...] on file Legal Sex Female 10:10 AM COTTON WEIGHER Gender Identity Not on file Sexual Orientation Not on file documented as of this encounter Plan of Treatment Not on file documented as of this encounter Visit Diagnoses Not on filedocumented in this encounter Care Teams Software Packager Relationship Specialty Start Date End Date Terry Bender DO [address] [place] [address] PCP - General Internal Medicine 12/07/23 Wilmer Taylor MD [address] [address] Referring Physician Obstetrics and Gynecology 05/09/12 Jeffrey Koch MD [address] [place] [address] Consulting Physician Rheumatology 02/03/21 Luz Lewis MD [address] [place] [address] Referring Physician Surgery 12/14/21 Raleigh Jay MD PhD [address] [place] [address] Radiation Oncologist Radiation Oncology 12/12/22 Ranjan Cazares MD [address] [place] [address] Surgeon Thoracic Surgery 12/12/22 Martina Elizabeth PA [address] [place] [address] Physician Sprinkler Repair Technician Rheumatology 10/20/24 documented as of this encounter
--- OUTSIDE RECORDS SUMMARY | 2025-01-06 11:44 | XMS_ITS | Encounter Summary ---
Author Organization [facility] Healthcare Address [address] [place] [address] Care Team Providers Care Research Study Assistant Name Role Phone Wilmer Taylor MD Unavailable [phone] Jeffrey Koch MD Unavailable [phone] Luz Lewis MD Unavailable [phone] [facility] MD PhD Unavailable [phone] Ranjan Cazares MD Unavailable [phone] Terry Bender DO Primary Care Provider [phone] Martina Elizabeth Unavailable [phone] Reason for Visit * Reason Onset Date Comments concerns 01/06/2025 Encounter Details Date Type Department Care Team (Late st Contact Info) Description 01/06/2025 Telephone [facility] Medical Group Pulmonary at [address] [place] [address] Betrha Churchill LPN concerns Social History Tobacco Use Types Packs/Day Years [...] on file Legal Sex Female 10:10 AM MATERIAL PROCESSOR Gender Identity Not on file Sexual Orientation Not on file documented as of this encounter Miscellaneous Notes * Telephone Encounter - Bertha Churchill LPN - 01/06/2025 8:29 AM CDT Patient daughter called the office and said that she is concerned about her mom having mouth sores and complaints of burning with urination. Daughter said that primary told her to call our office. I instructed her to call them back that patient needs to be evaluated for her symptoms she is having. Daughter wondering if she should d/c the steroid? I said that she would to call primary back and explain her symptoms and see if they can assist her again. Daughter said that she would call them now and further assistance is needed to call the office back. documented in this encounter Plan of Treatment Not on file documented as of this encounter Visit Diagnoses Not on filedocumented in this encounter Care Teams Research Study Assistant Relationship Specialty Start Date End Date Terry Bender DO [address] [facility] [place] [address] PCP - General Internal Medicine 12/07/23 Wilmer Taylor MD [address] [facility] [address] [place] [address] Referring Physician Obstetrics and Gynecology 05/09/12 Jeffrey Koch MD [address] [place] [address] Consulting Physician Rheumatology 02/03/21 Luz Lewis MD [address] [place] [address] Referring Physician Surgery 12/14/21 Raleigh Jay MD PhD [address] [place] [address] Radiation Oncologist Radiation Oncology 12/12/22 Ranjan Cazares MD [address] [place] [address] Surgeon Thoracic Surgery 12/12/22 Martina Elizabeth PA [address] [place] [address] Physician Hop Farm Worker Rheumatology 10/20/24 documented as of this encounter
[2025-01-06] MEDS: CEPHALEXIN 500 MG CAPSULE PO (11:46)
[2025-01-06] MEDS: CLOTRIMAZOLE 10 MG TROC PO (11:46)
[2025-01-06] MEDS: FLUCONAZOLE 150 MG TABLET PO (12:20)
[2025-01-06 12:24] VITALS: BP 117/71; PULSE 95; RESP 17; O2SAT 100
--- OUTSIDE RECORDS SUMMARY | 2025-01-06 12:25 | XMS_ITS | Encounter Summary ---
Author Organization [facility] Healthcare Address [address] [place] [address] Care Team Providers Care Film Splicer Name Role Phone Wilmer Taylor MD Unavailable [phone] Jeffrey Koch MD Unavailable [phone] Luz Lewis MD Unavailable [phone] [facility] MD PhD Unavailable [phone] Ranjan Cazares MD Unavailable [phone] Terry Bender DO Primary Care Provider [phone] Martina Elizabeth Unavailable [phone] Reason for Visit * Reason Onset Date Comments concerns 01/06/2025 Encounter Details Date Type Department Care Team (Late st Contact Info) Description 01/06/2025 Telephone [facility] Medical Group Pulmonary at [address] [place] [address] Bertha Churchill LPN concerns Social History Tobacco Use [...] on file Legal Sex Female 10:10 AM ANALYST MICROBIOLOGY LAB Gender Identity Not on file Sexual Orientation [...] on filedocumented in this encounter Care Teams Film Splicer Relationship Specialty Start Date End Date Terry Bender DO [address] [facility] [place] [address] PCP - General Internal Medicine 12/07/23 Wilmer Taylor MD [address] [facility] [address] [place] [address] Referring Physician Obstetrics and Gynecology 05/09/12 Jeffrey Koch MD [address] [place] [address] Consulting Physician Rheumatology 02/03/21 Luz Lewis MD [address] [place] [address] Referring Physician Surgery 12/14/21 Raleigh Jay MD PhD [address] [place] [address] Radiation Oncologist Radiation Oncology 12/12/22 Ranjan Cazares MD [address] [place] [address] Surgeon Thoracic Surgery 12/12/22 Martina Elizabeth PA [address] [place] [address] Physician Ecd Rheumatology 10/20/24 documented as of this encounter
--- OUTSIDE RECORDS SUMMARY | 2025-01-06 12:25 | XMS_ITS | Encounter Summary ---
Author Organization [facility] logy Address [address] [place] [address] Phone Care Team Providers Care Professional Tutor Name Role Phone Wilmer Taylor MD Unavailable [phone] Jeffrey Koch MD Unavailable [phone] Luz Lewis MD Unavailable [phone] [facility] MD PhD Unavailable [phone] Ranjan Cazares MD Unavailable [phone] Terry Bender DO Primary Care Provider [phone] Martina Elizabeth Unavailable Encounter Details Date Type Department Care Team (Latest Contact Info) Description 12/17/2024 Results Follow-Up [facility] [address] [place] [address] Martnia Elizabeth PA [address] [place] [address] Comprehensive metabolic panel, CBC with [...] on file Legal Sex Female 10:10 AM WIREWORKER 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 Gender Identity Not on file Sexual Orientation Not on file documented as of this encounter Plan of Treatment Not on file documented as of this encounter Visit Diagnoses Not on filedocumented in this encounter Care Teams Professional Tutor Relationship Specialty Start Date End Date Terry Bender DO [address] [place] [address] PCP - General Internal Medicine 12/07/23 Wilmer Taylor MD [address] [address] Referring Physician Obstetrics and Gynecology 05/09/12 Jeffrey Koch MD [address] [place] [address] Consulting Physician Rheumatology 02/03/21 Luz Lewis MD [address] [place] [address] Referring Physician Surgery 12/14/21 Raleigh Jay MD PhD [address] [place] [address] Radiation Oncologist Radiation Oncology 12/12/22 Ranjan Cazares MD [address] [place] [address] Surgeon Thoracic Surgery 12/12/22 Martina Elizabeth PA [address] [place] [address] Physician Floral Designer Salesperson Rheumatology 10/20/24 documented as of this encounter
--- OUTSIDE RECORDS SUMMARY | 2025-01-06 12:25 | XMS_ITS | Encounter Summary ---
Author Organization [facility] Address [address] [facility] [address] [place] [address] Phone Care Team Providers Care Mold Hoister Name Role Phone Terry Bender DO Primary Care Provider [phone] Wilmer Taylor MD Unavailable [phone] Jeffrey Koch MD Unavailable [phone] Luz Lewis MD Unavailable [phone] Sin Mcclure MD Primary Care Provider [phone] Jay Argueta MD Primary Care Provider [phone] [facility] farr MD PhD Unavailable [phone] Ranjan Cazares MD Unavailable [phone] Gabriele Adams NP Primary Care Provider [phone] Terry Bender DO Primary Care Provider [phone] Martina Elizabeth Unavailable Encounter Details Date Type Department Care Team (Late st Contact Info) Description 08/30/2021 Telephone [facility] Oncology [address] [facility] 7th [place] [address] [place] [address] Marianne Hernandez Social History Tobacco Use Types [...] on file Legal Sex Female 10:10 AM FUNDRAISER Gender Identity Not on file Sexual Orientation Not on file documented as of this encounter Functional Status documented as of this encounter Plan of Treatment Not on file documented as of this encounter Visit Diagnoses Not on filedocumented in this encounter Care Teams Mold Hoister Relationship Specialty Start Date End Date Terry Bender DO PCP - General Internal Medicine 01/03/18 05/14/22 Sin Mcclure MD [address] [place] [address] PCP - General Internal Medicine 05/15/22 11/28/22 Jay Argueta MD [address] [place] [address] PCP - General Family Practice 11/29/22 10/07/23 Gabriele Adams NP [address] [place] [address] PCP - General Nurse Practitioner 10/08/23 12/06/23 Terry Bender DO [address] [place] [address] PCP - General Internal Medicine 12/07/23 Wilmer Taylor MD [address] [facility] [address] [place] [address] Referring Physician Obstetrics and Gynecology 05/09/12 Jeffrey Koch MD [address] [place] [address] Consulting Physician Rheumatology 02/03/21 Luz Lewis MD [address] [place] [address] Referring Physician Surgery 12/14/21 Raleigh Jay MD PhD [address] [place] [address] Radiation Oncologist Radiation Oncology 12/12/22 Ranjan Cazares MD [address] [place] [address] Surgeon Thoracic Surgery 12/12/22 Martina Elizabeth PA [address] [place] [address] Physician Manager Of Manufacturing Rheumatology 10/20/24 documented as of this encounter
--- OUTSIDE RECORDS SUMMARY | 2025-01-06 12:26 | XMS_ITS | Clinical Summary ---
Author Organization [facility] Address [address] [place] [address] Care Team Providers Care Manager Transition Name Role Phone Wilmer Taylor MD Unavailable [phone] Jeffrey Koch MD Unavailable [phone] Luz Lewis MD Unavailable Raleigh estrada MD PhD Unavailable [phone] Ranjan Cazares MD Unavailable Terry Bender DO [...] by mouth daily after lunch Active omega 4-zap-vod-fish oil 100-160-1,000 mg capsuleIndicat ions:hypertrig lyceridemia Take [...] PRN. Assessment & Plan (05/21/2023 12:22 PM FISHERIES OFFICER): Pain overlying right lateral chest wall. TTP [...] (11/21/2021): Added automatically from request for surgery [id number] Bronchogenic lung cancer, right 09/12/2021 COPD (chronic [...] (09/01/2021): Added automatically from request for surgery [id number] longterm current use 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 drug 2021 Assessment & Plan (12/16/2024 9:38 AM CDT): Hepatitis negative: 02/2021 Routine lab monitoring while on MTX. Assessment & Plan (09/11/2024 8:57 AM CDT): Hepatitis negative: 02/2021 Assessment & Plan (04/17/2024 9:13 AM FISHERIES OFFICER): Hepatitis negative: 02/2021 Assessment & Plan (10/08/2023 9:05 AM CDT): Hepatitis negative: 02/2021 Assessment & Plan (07/09/2023 9:21 AM CDT): Hepatitis negative: 02/2021 Assessment & Plan (05/21/2023 10:12 AM FISHERIES OFFICER): Hepatitis negative: 02/2021 Assessment & Plan (02/12/2023 11:59 AM CDT): Hepatitis negative: 02/2021 Assessment & Plan (10/09/2022 1:07 PM CDT): Hepatitis negative: 02/2021 Assessment & Plan (05/15/2022 10:43 AM FISHERIES OFFICER): Hepatitis negative: 02/2021 Assessment & Plan (01/16/2022 10:56 AM CDT): Hepatitis negative: 02/2021 Assessment & Plan (10/17/2021 12:11 PM CDT): Hepatitis negative: 02/2021 Assessment & Plan (06/20/2021 10:12 AM FISHERIES OFFICER): Hepatitis negative: 02/2021 Rheumatoid arthritis involvi ng [...] needed. Assessment & Plan (04/17/2024 9:44 AM FISHERIES OFFICER): Cdai in remission. Seropositive RA (+RF, CCP) [...] needed. Assessment & Plan (05/21/2023 12:18 PM FISHERIES OFFICER): Low cdai. Seropositive RA (+RF, CCP) that [...] needed. Assessment & Plan (05/15/2022 10:55 AM FISHERIES OFFICER): Low cdai. Seropositive RA (+RF, CCP) that [...] needed. Assessment & Plan (06/20/2021 10:11 AM FISHERIES OFFICER): Seropositive RA (+RF, CCP) that remains well controlled with MTX 12.5mg weekly. Main complaints are pain involving the R 4th PIP joints and cervical spine which are degenerative however is responding well to Voltaren gel otc. Will continue MTX 12.5mg weekly and folic acid 1mg daily.Routine labs today. Follow up in 3 months. Sooner if needed. Assessment & Plan (03/14/2021 10:50 AM FISHERIES OFFICER): Seropositive RA (+RF, CCP) that remains well [...] Koch. Assessment & Plan (02/28/2021 9:54 AM FISHERIES OFFICER): 70-year-old female with PMHx of HTN, COPD, [...] PM&R. Assessment & Plan (04/17/2024 9:13 AM FISHERIES OFFICER): Pain worse with activity and improved with [...] PM&R. Assessment & Plan (05/21/2023 12:11 PM FISHERIES OFFICER): Pain worse with activity and improved with [...] exercises. Assessment & Plan (05/15/2022 10:43 AM FISHERIES OFFICER): Pain worse with activity and improved with [...] exercises. Assessment & Plan (06/20/2021 10:11 AM FISHERIES OFFICER): Pain worse with activity and improved with rest. Denies radiating pain. 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 Patient defers PT and worried about NSAIDs with her current medication regimen. Taking tylenol otc prn with some relief. Using Voltaren gel otc prn with good relief. Continue home exercises. Assessment & Plan (03/14/2021 10:52 AM FISHERIES OFFICER): Pain worse with activity and improved with [...] pain. Assessment & Plan (02/28/2021 9:57 AM FISHERIES OFFICER): Pain worse with activity and improved with [...] Type Department Care Team Description 01/06/2025 Telephone [facility] Pulmonary at [address] [place] [address] Bertha Churchill LPN concerns 12/25/2024 Telephone [facility] Pulmonary at [address] [place] [address] scan 12/23/2024 Telephone [facility] Pulmonary at [address] [place] [address] Nilsa Ayala LPN 12/17/2024 Results Follow-Up [address] [address] Martina Elizabeth PA Comprehensive metabolic panel, CBC with auto differential, Erythrocyte sedimentation rate, CRP (acute phase) 12/16/2024 9:00 AM CDT Office Visit [address] [address] Martina Elizabeth PA 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 factor (HCC) (Primary Dx); Pulmonary nodules; longterm current use 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 drug 11/27/[address] [address] Katharine Chavis 11/25/2024 Orders Only [facility] Pulmonary at [address] [address] Frankie Cardoso MD Pulmonary nodules (Primary Dx) 11/24/2024 Orders Only [facility] Pulmonary at [address] [address] Frankie Cardoso MD 11/20/2024 Telephone [facility] Pulmonary at [address] [place] [address] Bertha Churchill LPN sick call follow up 11/13/2024 10:45 AM CDT Office Visit [facility] Pulmonary at [address] [place] [address] Fraknie Cardoso MD Pulmonary nodules (Primary Dx); Chronic obstructive pulmonary disease, unspecified COPD type (HCC); Malignant neoplasm of lower lobe, right bronchus or lung (HCC); Malignant neoplasm of upper lobe, left bronchus or lung (HCC); Malignant neoplasm of upper lobe, right bronchus or lung (HCC); Chronic respiratory failure with hypoxia (HCC) 11/06/2024 7:30 AM CDT - 11/06/2024 9:15 AM CDT Surgery [facility] Operating Room [address] [place] [address] Frankie Cardoso MD RADIAL BRONCHOSCOPY ENDOBRONCHIAL ULTRASOUND-transcronc hial biopsies of DAVIDA nodule and Lingula nodule 11/06/2024 7:27 AM CDT Anesthesia Event [facility] Operating Room [address] [place] [address] Ish Batista MD 11/06/2024 6:19 AM CDT - 11/06/2024 10:55 AM CDT Hospital Encounter [facility] Operating Room [address] [place] [address] Frankie Cardoso MD Lung mass Discharge Disposition: Discharge to home or self care 10/31/2024 Telephone [facility] Pulmonology [address] [facility] [address] [place] [address] Frankie Cardoso MD 10/22/2024 Telephone [facility] Pulmonary at [address] [address] Nilsa Ayala LPN [employer] question 10/20/2024 11:00 AM CDT Office Visit [facility] Pulmonary at [address] [place] [address] Deborah Palafox NP Centrilobular emphysema (HCC) (Primary Dx); Pulmonary nodules; 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 Imaging Center [address] [place] [address] Pulmonary nodules Discharge Disposition: Discharge to home or self care 10/10/2024 Telephone 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 ERYTHROCYTE SEDIMENTATION RATE Routine 12/16/2024 9:12 AM CDT 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 factor (HCC) longterm current use 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 drug CBC WITH AUTO DIFFERENTIAL Routine 12/16/2024 9:12 AM CDT 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 factor (HCC) 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 COMPREHENSIVE METABOLIC PANEL Routine 12/16/2024 9:12 AM CDT 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 factor (HCC) longterm current use 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 drug SURGICAL PATHOLOGY [...] ACID-FAST STAIN Routine 11/06/2024 8:00 AM CDT [place] AN ELECTIVE ENDOTRACHEAL AIRWAY Routine 11/06/2024 7:38 AM CDT BRONCHOSCOPY ENDOBRONCHIAL ULTRASOUND 11/06/2024 7:27 AM CDT Lung mass ECG 12-LEAD STAT 11/06/2024 7:[address] CHEST WO CONTRAST Schedule Routine, Read Routine (OP Routine) 10/11/2024 9:14 AM CDT Pulmonary nodules HEPATITIS PANEL, ACUTE Routine 10:09 AM FISHERIES OFFICER 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 factor (HCC) Fatigue, unspecified type longterm current use 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 drug from Last [...] BLOOD ORDERABLES Final Result Performing Organization Address City/[facility]/ZIP Co de Phone Number [facility]ST [facility] [address] [place] [address] * Erythrocyte sedimentation rate (12/16/2024 9:12 AM CDT) [facility] Erythrocyte sedimentation rate 29 < OR = 30 mm/h [facility] Blood 12/16/2024 9:12 AM CDT 12/16/2024 9:13 AM CDT Martina JONES LAB BLOOD ORDERABLES Final Result Performing Organization Address City/[facility] Co de Phone Number [facility] [address] [place] [address] * (ABNORMAL) CRP (acute phase) (12/16/2024 9:12 AM CDT) C-RP 47.4(H) <8.0 mg/L [facility] Blood 12/16/2024 9:12 AM CDT 12/16/2024 9:13 AM CDT us Martina JONES LAB BLOOD ORDERABLES Final Result [facility] [address] [place] [address] * (ABNORMAL) Comprehensive metabolic panel (12/16/2024 9:12 AM CDT) Pathologist [facility] Glucose 99 65 - 99 mg/dL [facility] [...] Martina JONES LAB BLOOD ORDERABLES Final Result [facility] [address] [place] [address] * Surgical pathology (11/06/2024 9:41 AM CDT) Tissue (Lung Biopsy) 11/06/2024 8:14 AM CDT Tissue specimen (specimen) (Lung Biopsy) 11/06/2024 8:14 AM CDT Narrative PATHOLOGY [facility] ([facility]) - 11/10/2024 3:06 PM CDT EPIC results best viewed via link to PDF [facility] Department of Pathology [address] [place] [address] Note to Patients: This report may contain [...] Final Report Patient Name: DARRION GUILLORY Address: [address] [place] [address] Gender: F : 1950 (Age: 74) Service: Surgery Location: [facility] Hospital #: [id number] Patient Type: [facility] Taken: 11/06/2024 Received: 11/06/2024 Accessioned: 11/06/2024 Reported: [...] determined by the Surgical Pathology Department at [facility] as part of an ongoing director software quality assurance program and in compliance with federally mandated [...] characteristics determined by the Surgical Pathology Department [facility]. It has not been cleared or approved by the U. S. Food and Drug Administration. Note for decalcified specimens: This assay has not been validated on decalcified tissues. Results should be interpreted with caution given the possibility of false negativity on decalcified specimens Frankie Cardoso MD LAB PATHOLOGY ORDERABLES Final R esult PATHOLOGY [facility] ([facility]) [address] [place] [id number] * X-ray chest 1 view (Portable) (11/06/2024 [...] Austin Juárez M.D. MZ: MZ Report ID: [id number] Reading Location: [place] [address] Procedure Note Austin Juárez MD - 11/06/2024 [...] Austin Juárez M.D. MZ: MZ Report ID: [id number] Reading Location: [id number] Frankie Cardoso MD IM XR PROCEDURES Final [...] Wilmer Gold M.D. KH: KH Report ID: [id number] Reading Location: [id number] Procedure Note Wilmer Gold MD - 11/14/2024 [...] by Wilmer Georges.D. KH: LIZBETH Report ID: [id number] Reading Location: [id number] Frankie Cardoso MD IMG XR PROCEDURES Final Result * FL Fluoroscopy < 1 Hour (11/06/2024 8:49 AM CDT) Narrative [facility] - 11/06/2024 8:50 AM CDT The images from this study are not interpreted by Radiology. Please refer to the physician's procedure / OR operative note. Frankie Cardoso MD IMG FLUOROSCOPY PROCEDURES Final Result [facility] * Tissue aerobic and anaerobic culture and gram stain Tissue Lobe, left upper (11/06/2024 8:00 AM CDT) Direct Specimen Exam Stain: No polymorphonuclear leukocytes seen. No organisms seen. Comment:Testing performed by : [facility], [address] [place]., [address] Report Final Report: No growth [facility] (YINA) Comment:Testing performed by : [facility], [address] [place]., [address] Tissue (Lobe, left upper) 11/06/2024 8:00 AM CDT 11/06/2024 1:[address] [facility] [facility] (YINA) - 11/09/2024 9:50 AM CDT Left upper lobe nodule Testing performed by [facility] ([phone]) Specimens submitted from normally sterile body sites [...] GENERAL ORDER SOFÍA Final Result [facility] (YINA) [address] [facility] [place] [address] * Mycology (fungal) culture Tissue Lobe, left upper (11/06/2024 8:00 AM CDT) Report Final Report: No growth of fungus Comment:Testing performed by : [facility], [address] [place]., [address] Tissue (Lobe, left upper) 11/06/2024 8:00 AM CDT 11/06/2024 1:[address] [facility] [facility] (YINA) - 12/04/2024 7:18 AM CDT Left upper lobe nodule Testing performed by [facility] ([phone]). Frankie Cardoso MD LAB MICROBIOLOGY - GENERAL ORDER SOFÍA Final Result Performing Organization Address [facility] Co de Phone Number [facility] (YINA) [address] [facility] [place] [address] * Mycobacteriology (AFB) culture and acid-fast stain Tissue Lobe, left upper (11/06/2024 8:00 AM CDT) Direct Specimen Exam Stain: No Acid-fast bacilli seen Comment:Testing performed by : [facility], [address] [facility] [place]., [address] Report Final Report: No growth of acid-fast bacilli [facility] (YINA) Comment:Testing performed by : [facility], [address] [facility] [place]., [address] Tissue (Lobe, left upper) 11/06/2024 8:00 AM CDT 11/06/2024 1:[address] [facility] [facility] (Y[facility]) - 01/05/2025 8:03 AM CDT Left upper lobe nodue Testing performed by [facility] ([phone]). us Frankie Cardoso MD LAB MICROBIOLOGY - GENERAL ORDER SOFÍA Final Result [facility] 1 [facility] Department of Laboratories [place], [place] [id number] * [place] AN ELECTIVE ENDOTRACHEAL AIRWAY (11/06/2024 7:38 AM CDT) Narrative Star Lindquist CRNA - 11/06/2024 7:38 AM CDT Star Lindquist CRNA 11/06/2024 7:38 AM Airway Patient location: OR Urgency: elective Indications for airway management: anesthesia Difficult airway: no Staff: Placed by: SMUDGER: Star Lindquist CRNA Emergent airway documentation: Risks [...] AM CDT) 11/06/2024 7:06 AM CDT Narrative [facility] - 11/06/2024 7:58 AM CDT Vent Rate: 90 bpm RR Interval: 666 msec [place] Interval: 197 msec QRS Duration: 84 msec QT Interval: 341 msec QTC Interval: 388 msec P-R-T [place]: 50 - 5 - 53 degrees IMPRESSION: SINUS RHYTHM Baseline artifact No prior EKG for comparison Electronically Signed By: Dr Dakota Gómez us Ish Batista MD ECG ORDERABLES Final Result [email or web address] * CT chest without contrast [...] and lymph node dissection September 11. Clinical icp-vghrl-xpof lung cancer right lower lobe status post [...] Status post right upper lobectomy. Background of ptqovjgx-zd-kgxipv emphysematous changes. Bilateral lung base scarring. Interval [...] Christian Molina M.D. NS: NS Report ID: [id number] Reading Location: [id number] Procedure Note Christian Molina MD - 10/24/2024 [...] and lymph node dissection September 11. Clinical csm-qhwgy-siiq lung cancer right lower lobe status post [...] LUNGS: Status post right upper lobectomy. Background dlyemmotgr-zd-npnopm emphysematous changes. Bilateral lung base scarring. Interval [...] Christian Molina M.D. NS: NS Report ID: [id number] Reading Location: [id number] us Frankie Cardoso MD IMG CT PROCEDURES Final Result * Hepatitis panel, acute (02/28/2021 10:09 AM FISHERIES OFFICER) Hep A IgM NON-REACTI VE NON-REACT MAR[facility]NA [facility] Comment: For additional information, please refer to http://EyeQuant.TicketFire/faq/SAH981 (This link is being provided for informational/ [...] a test for HCV RNA (test code 41707) is suggested. For additional information please refer to http://EyeQuant.TicketFire/faq/KDF92y9 (This link is being provided for informational/ educational purposes only.) Blood specimen (specimen) 02/28/2021 10:09 AM FISHERIES OFFICER 02/28/2021 10:15 AM FISHERIES OFFICER Martina JONES LAB MICROBIOLOGY - NERAL ORDERABLES Final Result [facility] [address] [address] [place] [phone] from Last 3 Months or Most Recently Relevant to Health Maintenance Insurance [facility] HE[facility]CARE HEALTHCARE Advance Directives For more information, please contact: [phone] * Full Code (Latest Code Status on File) Date Activated Date Inactivated Comments 09/12/2021 4:12 PM 09/14/2021 4:07 PM Care Teams Manager Transition Relationship Specialty Start Date End Date Terry Bender DO [address] [place] [address] PCP - General Internal Medicine 12/07/23 Wilmer Taylor MD [address] [id number] Referring Physician Obstetrics and Gynecology 05/09/12 Jeffrey Koch MD [address] [place] [address] Consulting Physician Rheumatology 02/03/21 Luz Lewis MD [address] [place] [address] Referring Physician Surgery 12/14/21 Raleigh Jay MD PhD [address] [place] [address] Radiation Oncologist Radiation Oncology 12/12/22 Ranjan Cazares MD [address] [place] [address] Surgeon Thoracic Surgery 12/12/22 Martina Elizabeth PA [address] [place] [address] Physician Roof Promenade Tile Setter Rheumatology 10/20/24
--- OUTSIDE RECORDS SUMMARY | 2025-01-06 12:26 | XMS_ITS ---
Author Organization [facility] Address [address] [place] [address] Care Team Providers Care Police Officer Name Role Phone Wilmer Taylor MD Unavailable [phone] Jeffrey Koch MD Unavailable [phone] Luz Lewis MD Unavailable [phone] Raleigh Jay MD PhD Unavailable Ranjan Cazares MD Unavailable [phone] Terry Bender DO Primary Care Provider [phone] Martina Elizabeth Unavailable Active Problems Patient Care Coordination No te Formatting of this note migh t be different from the original. Referring provider: Dr. Terry Bender Ms. Loida Guilolry is a 71-year-old with a lung cancer. [...] PRN. Assessment & Plan (05/21/2023 12:22 PM BREAD ICER): Pain overlying right lateral chest wall. 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 Assessment & Plan (09/11/2024 8:57 AM CDT): Hepatitis negative: 02/2021 Assessment & Plan (04/17/2024 9:13 AM BREAD ICER): Hepatitis negative: 02/2021 Assessment & Plan (10/08/2023 9:05 AM CDT): Hepatitis negative: 02/2021 Assessment & Plan (07/09/2023 9:21 AM CDT): Hepatitis negative: 02/2021 Assessment & Plan (05/21/2023 10:12 AM BREAD ICER): Hepatitis negative: 02/2021 Assessment & Plan (02/12/2023 11:59 AM CDT): Hepatitis negative: 02/2021 Assessment & Plan (10/09/2022 1:07 PM CDT): Hepatitis negative: 02/2021 Assessment & Plan (05/15/2022 10:43 AM BREAD ICER): Hepatitis negative: 02/2021 Assessment & Plan (01/16/2022 10:56 AM CDT): Hepatitis negative: 02/2021 Assessment & Plan (10/17/2021 12:11 PM CDT): Hepatitis negative: 02/2021 Assessment & Plan (06/20/2021 10:12 AM BREAD ICER): Hepatitis negative: 02/2021 Rheumatoid arthritis involvi ng [...] needed. Assessment & Plan (04/17/2024 9:44 AM BREAD ICER): Cdai in remission. Seropositive RA (+RF, CCP) [...] needed. Assessment & Plan (05/21/2023 12:18 PM BREAD ICER): Low cdai. Seropositive RA (+RF, CCP) that [...] needed. Assessment & Plan (05/15/2022 10:55 AM BREAD ICER): Low cdai. Seropositive RA (+RF, CCP) that [...] needed. Assessment & Plan (06/20/2021 10:11 AM BREAD ICER): Seropositive RA (+RF, CCP) that remains well controlled with MTX 12.5mg weekly. Main complaints are pain involving the R 4th PIP joints and cervical spine which are degenerative however is responding well to Voltaren gel otc. Will continue MTX 12.5mg weekly and folic acid 1mg daily.Routine labs today. Follow up in 3 months. Sooner if needed. Assessment & Plan (03/14/2021 10:50 AM BREAD ICER): Seropositive RA (+RF, CCP) that remains well [...] Koch. Assessment & Plan (02/28/2021 9:54 AM BREAD ICER): 70-year-old female with PMHx of HTN, COPD, [...] PM&R. Assessment & Plan (04/17/2024 9:13 AM BREAD ICER): Pain worse with activity and improved with [...] PM&R. Assessment & Plan (05/21/2023 12:11 PM BREAD ICER): Pain worse with activity and improved with [...] exercises. Assessment & Plan (05/15/2022 10:43 AM BREAD ICER): Pain worse with activity and improved with [...] exercises. Assessment & Plan (06/20/2021 10:11 AM BREAD ICER): Pain worse with activity and improved with rest. Denies radiating pain. 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 Patient defers PT and worried about NSAIDs with her current medication regimen. Taking tylenol otc prn with some relief. Using Voltaren gel otc prn with good relief. Continue home exercises. Assessment & Plan (03/14/2021 10:52 AM BREAD ICER): Pain worse with activity and improved with [...] pain. Assessment & Plan (02/28/2021 9:57 AM BREAD ICER): Pain worse with activity and improved with [...]
[2025-01-06 13:24] VITALS: BP 132/72; PULSE 78; RESP 20; O2SAT 98
[2025-01-08 15:09] LABS: HSV-1 DNA Negative (Negative); HSV-2 DNA Positive (Negative)
== END 2025-01-06 13:26 | disposition home or self-care (01) ==
PROVIDERS: Emergency Provider Physician Assistant; PCP Nurse Practitioner
DX: N76.6 Ulceration of vulva (principal); B37.31 Acute candidiasis of vulva and vagina; B37.0 Candidal stomatitis; N30.00 Acute cystitis without hematuria; I10 Essential (primary) hypertension; D64.9 Anemia, unspecified; M19.90 Unspecified osteoarthritis, unspecified site; M05.79 Rheumatoid arthritis with rheumatoid factor of multiple sites without organ or systems involvement; Z99.81 Dependence on supplemental oxygen; Z85.118 Personal history of other malignant neoplasm of bronchus and lung; Z85.44 Personal history of malignant neoplasm of other female genital organs; Z87.891 Personal history of nicotine dependence; Z90.2 Acquired absence of lung [part of]; Z98.49 Cataract extraction status, unspecified eye; Z79.52 Long term (current) use of systemic steroids; Z79.01 Long term (current) use of anticoagulants; Z79.899 Other long term (current) drug therapy; Z79.631 Long term (current) use of antimetabolite agent
CPT/HCPCS: 36415; 80048; 81001; 85025; 86615; 87086; 87529; 99283; A9270

== ENCOUNTER 2025-01-08 16:54 | Inpatient (IN) | payer OTHER, SELFPAY ==
--- NOTE | ~2025-01-08 | XR_ITS ---
Examination: XR chest 2V Clinical History: shortness of breath, hx COPD Comparison: X-rays 04/25/2024 Technique: Portable AP Findings: Cardiomegaly. Large airspace disease left upper lobe. Elevated left hemidiaphragm, associated basilar atelectasis. Emphysema and scattered scarring. Postoperative changes right lung. No acute bony abnormality. IMPRESSION: 1. Large airspace disease left upper lobe. Atypical organisms should also be considered. 2. Recommend short interval follow-up to document resolution and exclude underlying lesion. Reviewed, dictated and finalized at location R. IMPRESSION: 1. Large airspace disease left upper lobe. Atypical organisms should also be c onsidered. 2. Recommend short interval follow-up to document resolution and exclude under lying lesion.
--- NOTE | ~2025-01-08 | XR_ITS ---
EXAMINATION: XR chest 1V portable COMPARISON: No comparisons available. HISTORY: fluid overload FINDINGS: Left upper lobe infiltrate. Right lower lobe infiltrate and small effusion, small left lower lobe infiltrate. No pneumothorax. Heart is normal size. Mediastinal and hilar contours are within normal limits. Bony thorax no acute abnormality. Miscellaneous: Right PICC line terminates in the SVC. Impression: Bilateral pneumonia superimposed on chronic lung disease. Findings are progressed compared to the previous study Reviewed, dictated and finalized at location A. Impression: Bilateral pneumonia superimposed on chronic lung disease. Findings are progress ed compared to the previous study
--- NOTE | ~2025-01-08 | XR_ITS ---
EXAMINATION: XR chest 1V portable DATE: 01/12/2025 08:56 INDICATION: Pneumonia TECHNIQUE: frontal view of the chest was obtained. COMPARISON: Chest radiograph dated 01/10/2025 FINDINGS: Unchanged elevation left hemidiaphragm. Also unchanged are airspace opacity left mid and upper lung zone with prominent masslike suprahilar opacity. Stable appearance of additional reticular and airspace opacities at the bilateral lung bases including small right pleural effusion. No pneumothorax. Cardiomegaly. Right upper extremity peripherally inserted central venous catheter (PICC) tip at the superior cavoatrial junction. Calcified left hilar lymph nodes consistent with old granulomatous disease. IMPRESSION: 1. Stable appearance of airspace opacities at the bilateral lung bases more prominently in the left mid and upper lung zone which could represent atelectasis, pneumonia, malignancy or some combination thereof. 2. Small right pleural effusion. 3. Cardiomegaly. Reviewed, dictated and finalized at location A. IMPRESSION: 1. Stable appearance of airspace opacities at the bilateral lung bases more pro minently in the left mid and upper lung zone which could represent atelectasis, pneumonia, malignancy or some combination thereof. 2. Small right pleural effusion. 3. Cardiomegaly.
--- NOTE | ~2025-01-08 | XR_ITS ---
Examination: XR chest PICC line Clinical History: Picc placement Comparison: CTA chest one day prior Technique: Portable AP Findings: Right PICC tip upper SVC. Cardiomegaly. Persistent large airspace disease left upper lobe. Persistent elevated left hemidiaphragm, associated basilar atelectasis, airspace disease, effusion. Emphysema and scattered scarring. Postoperative changes right lung. No acute bony abnormality. IMPRESSION: 1. Right PICC tip upper SVC. 2. No significant cardiopulmonary change. 3. Scattered dense airspace disease left lung, and small effusion. Reviewed, dictated and finalized at location R.
--- NOTE | ~2025-01-08 | CT_ITS ---
EXAMINATION: CTA chest PE protocol DATE: 01/09/2025 14:37 INDICATION: Shortness of breath. TECHNIQUE: Computed tomography angiography (CTA) of the chest was performed with 100 mL Omnipaque-350 intravenous contrast timed to evaluate the pulmonary arteries. Coronal maximum intensity projection 3D-reconstructions were created by the technologist. Automated exposure control and iterative reconstruction technique were employed. The dose-length product was 166.83 mGy-cm. COMPARISON: Chest CTA 04/26/2024, chest CT 01/01/2019. FINDINGS: There is severe emphysema. There are changes of right upper lobectomy. There is a new 6 mm nodule in right middle lobe. There is a new 6 mm nodule in right lower lobe. There is a new 11 mm nodule in right lower lobe. There are dependent airspace opacities in basilar right lower lobe. There are patchy airspace opacities in left upper lobe and left lower lobe. There are small pleural effusions, left worse than right. Calcified left lung nodules and calcified left hilar lymph nodes are consistent with old granulomatous disease. Cardiomegaly is noted. There are coronary artery calcifications. There is no pulmonary embolus. The central pulmonary is enlarged, consistent with pulmonary arterial hypertension. Calcifications in the spleen are consistent with old granulomatous disease. Prominent left breast tissue is chronic and likely benign. There is severe cervical spondylosis and moderate thoracic spondylosis. IMPRESSION: 1. Multifocal lung disease, left worse than right, consistent with pneumonia. Some component of metastatic disease may also be present. Follow-up chest CT after resolution of pneumonia is recommended. 2. Small pleural effusions. 3. Severe emphysema. 4. No pulmonary embolus. Reviewed, dictated and finalized at location E. IMPRESSION: 1. Multifocal lung disease, left worse than right, consistent with pneumonia. S ome component of metastatic disease may also be present. Follow-up chest CT aft er resolution of pneumonia is recommended. 2. Small pleural effusions. 3. Severe emphysema. 4. No pulmonary embolus.
--- OUTSIDE RECORDS SUMMARY | 2025-01-08 16:56 | XMS_ITS | Encounter Summary ---
Author Organization [facility] Address [address] [place] [address] Phone Care Team Providers Care Accounts Collector Name Role Phone Wilmer Taylor MD Unavailable [phone] Jeffrey Koch MD Unavailable [phone] Luz Lewis MD Unavailable [phone] [facility] Unavailable [phone] Ranjan Cazares MD Unavailable [phone] Terry Bender DO Primary Care Provider [phone] Martina Elizabeth Unavailable [phone] Encounter Details Date Type Department Care Team (Latest Contact Info) Description 12/17/2024 Results Follow-Up [facility] [address] [place] [address] Martina Elizabeth PA [address] [place] [address] Comprehensive metabolic panel, CBC with [...] on file 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 Gender Identity Not on file Sexual Orientation Not on file documented as of this encounter Plan of Treatment Not on file documented as of this encounter Visit Diagnoses Not on filedocumented in this encounter Care Teams Accounts Collector Relationship Specialty Start Date End Date Terry Bender DO [address] [place] [address] PCP - General Internal Medicine 12/07/23 Wilmer Taylor MD [address] [address] Referring Physician Obstetrics and Gynecology 05/09/12 Jeffrey Koch MD [address] [place] [address] Consulting Physician Rheumatology 02/03/21 Luz Lewis MD [address] [place] [address] Referring Physician Surgery 12/14/21 Raleigh Jay MD PhD [address] [place] [address] Radiation Oncologist Radiation Oncology 12/12/22 Ranjan Cazares MD [address] [place] [address] Surgeon Thoracic Surgery 12/12/22 Martina Elizabeth PA [address] [place] [address] Physician Orthodontist Assistant Rheumatology 10/20/24 documented as of this encounter
--- OUTSIDE RECORDS SUMMARY | 2025-01-08 16:56 | XMS_ITS ---
Author Organization [facility] Address [address] [place] [address] Care Team Providers Care [employer] Officer Name Role Phone Wilmer Taylor MD Unavailable [phone] Jeffrey Koch MD Unavailable [phone] Luz Lewis MD Unavailable [phone] Raleigh Jay MD PhD Unavailable Ranjan Cazares MD Unavailable [phone] Terry Bender DO Primary Care Provider [phone] Martina Elizabeth Unavailable Active Problems Patient Care [...] PRN. Assessment & Plan (05/21/2023 12:22 PM THERMOMETER PRODUCTION WORKER): Pain overlying right lateral chest wall. [...] (11/21/2021): Added automatically from request for surgery [id number] Bronchogenic lung cancer, right 09/12/2021 COPD (chronic [...] (09/01/2021): Added automatically from request for surgery [id number] long term care pharmacist current use 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 drug 2021 Assessment & Plan (12/16/2024 9:38 AM CDT): Hepatitis negative: 02/2021 Routine lab monitoring while on MTX. Assessment & Plan (09/11/2024 8:57 AM CDT): Hepatitis negative: 02/2021 Assessment & Plan (04/17/2024 9:13 AM THERMOMETER PRODUCTION WORKER): Hepatitis negative: 02/2021 Assessment & Plan (10/08/2023 9:05 AM CDT): Hepatitis negative: 02/2021 Assessment & Plan (07/09/2023 9:21 AM CDT): Hepatitis negative: 02/2021 Assessment & Plan (05/21/2023 10:12 AM THERMOMETER PRODUCTION WORKER): Hepatitis negative: 02/2021 Assessment & Plan (02/12/2023 11:59 AM CDT): Hepatitis negative: 02/2021 Assessment & Plan (10/09/2022 1:07 PM CDT): Hepatitis negative: 02/2021 Assessment & Plan (05/15/2022 10:43 AM THERMOMETER PRODUCTION WORKER): Hepatitis negative: 02/2021 Assessment & Plan (01/16/2022 10:56 AM CDT): Hepatitis negative: 02/2021 Assessment & Plan (10/17/2021 12:11 PM CDT): Hepatitis negative: 02/2021 Assessment & Plan (06/20/2021 10:12 AM THERMOMETER PRODUCTION WORKER): Hepatitis negative: 02/2021 Rheumatoid arthritis involvi [...] needed. Assessment & Plan (04/17/2024 9:44 AM THERMOMETER PRODUCTION WORKER): Cdai in remission. Seropositive RA (+RF, [...] needed. Assessment & Plan (05/21/2023 12:18 PM THERMOMETER PRODUCTION WORKER): Low cdai. Seropositive RA (+RF, CCP) [...] needed. Assessment & Plan (05/15/2022 10:55 AM THERMOMETER PRODUCTION WORKER): Low cdai. Seropositive RA (+RF, CCP) [...] needed. 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 Main complaints are pain involving the R 4th PIP joints and cervical spine which are degenerative however is responding well to Voltaren gel otc. Will continue MTX 12.5mg weekly and folic acid 1mg daily.Routine labs today. Follow up in 3 months. Sooner if needed. Assessment & Plan (03/14/2021 10:50 AM THERMOMETER PRODUCTION WORKER): Seropositive RA (+RF, CCP) that remains [...] Koch. Assessment & Plan (02/28/2021 9:54 AM THERMOMETER PRODUCTION WORKER): 70-year-old female with PMHx of HTN, [...] PM&R. Assessment & Plan (04/17/2024 9:13 AM THERMOMETER PRODUCTION WORKER): Pain worse with activity and improved [...] PM&R. Assessment & Plan (05/21/2023 12:11 PM THERMOMETER PRODUCTION WORKER): Pain worse with activity and improved [...] exercises. Assessment & Plan (05/15/2022 10:43 AM THERMOMETER PRODUCTION WORKER): Pain worse with activity and improved [...] exercises. Assessment & Plan (06/20/2021 10:11 AM THERMOMETER PRODUCTION WORKER): Pain worse with activity and improved with rest. Denies radiating pain. 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 Patient defers PT and worried about NSAIDs with her current medication regimen. Taking tylenol otc prn with some relief. Using Voltaren gel otc prn with good relief. Continue home exercises. Assessment & Plan (03/14/2021 10:52 AM THERMOMETER PRODUCTION WORKER): Pain worse with activity and improved [...] pain. Assessment & Plan (02/28/2021 9:57 AM THERMOMETER PRODUCTION WORKER): Pain worse with activity and improved [...]
--- OUTSIDE RECORDS SUMMARY | 2025-01-08 16:56 | XMS_ITS | Clinical Summary ---
Author Organization [facility] Address [address] [place] [address] Care Team Providers Care Pediatric Speech Language Pathologist Name Role Phone Wilmer Taylor MD Unavailable [phone] Jeffrey Koch MD Unavailable [phone] Luz Lewis MD Unavailable [phone] Raleigh estrada MD PhD Unavailable Ranjan Cazares [...] by mouth daily after lunch Active omega 0-ujk-ugq-fish oil 100-160-1,000 mg capsuleIndicat ions:hypertrig lyceridemia Take [...] PRN. Assessment & Plan (05/21/2023 12:22 PM LACING CUTTER): Pain overlying right lateral chest wall. TTP [...] (11/21/2021): Added automatically from request for surgery [id number] Bronchogenic lung cancer, right 09/12/2021 COPD (chronic [...] (09/01/2021): Added automatically from request for surgery [id number] residential current use 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 drug 2021 Assessment & Plan (12/16/2024 9:38 AM CDT): Hepatitis negative: 02/2021 Routine lab monitoring while on MTX. Assessment & Plan (09/11/2024 8:57 AM CDT): Hepatitis negative: 02/2021 Assessment & Plan (04/17/2024 9:13 AM LACING CUTTER): Hepatitis negative: 02/2021 Assessment & Plan (10/08/2023 9:05 AM CDT): Hepatitis negative: 02/2021 Assessment & Plan (07/09/2023 9:21 AM CDT): Hepatitis negative: 02/2021 Assessment & Plan (05/21/2023 10:12 AM LACING CUTTER): Hepatitis negative: 02/2021 Assessment & Plan (02/12/2023 11:59 AM CDT): Hepatitis negative: 02/2021 Assessment & Plan (10/09/2022 1:07 PM CDT): Hepatitis negative: 02/2021 Assessment & Plan (05/15/2022 10:43 AM LACING CUTTER): Hepatitis negative: 02/2021 Assessment & Plan (01/16/2022 10:56 AM CDT): Hepatitis negative: 02/2021 Assessment & Plan (10/17/2021 12:11 PM CDT): Hepatitis negative: 02/2021 Assessment & Plan (06/20/2021 10:12 AM LACING CUTTER): Hepatitis negative: 02/2021 Rheumatoid arthritis involvi ng [...] needed. Assessment & Plan (04/17/2024 9:44 AM LACING CUTTER): Cdai in remission. Seropositive RA (+RF, CCP) [...] needed. Assessment & Plan (05/21/2023 12:18 PM LACING CUTTER): Low cdai. Seropositive RA (+RF, CCP) that [...] needed. Assessment & Plan (05/15/2022 10:55 AM LACING CUTTER): Low cdai. Seropositive RA (+RF, CCP) that [...] needed. 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 Main complaints are pain involving the R 4th PIP joints and cervical spine which are degenerative however is responding well to Voltaren gel otc. Will continue MTX 12.5mg weekly and folic acid 1mg daily.Routine labs today. Follow up in 3 months. Sooner if needed. Assessment & Plan (03/14/2021 10:50 AM LACING CUTTER): Seropositive RA (+RF, CCP) that remains well [...] Koch. Assessment & Plan (02/28/2021 9:54 AM LACING CUTTER): 70-year-old female with PMHx of HTN, COPD, [...] PM&R. Assessment & Plan (04/17/2024 9:13 AM LACING CUTTER): Pain worse with activity and improved with [...] PM&R. Assessment & Plan (05/21/2023 12:11 PM LACING CUTTER): Pain worse with activity and improved with [...] exercises. Assessment & Plan (05/15/2022 10:43 AM LACING CUTTER): Pain worse with activity and improved with [...] exercises. Assessment & Plan (06/20/2021 10:11 AM LACING CUTTER): Pain worse with activity and improved with rest. Denies radiating pain. 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 Patient defers PT and worried about NSAIDs with her current medication regimen. Taking tylenol otc prn with some relief. Using Voltaren gel otc prn with good relief. Continue home exercises. Assessment & Plan (03/14/2021 10:52 AM LACING CUTTER): Pain worse with activity and improved with [...] pain. Assessment & Plan (02/28/2021 9:57 AM LACING CUTTER): Pain worse with activity and improved with [...] Type Department Care Team Description 01/06/2025 Telephone [facility] Pulmonary at [address] [place] [address] Bertha Churchill LPN concerns 12/25/2024 Telephone [facility] Pulmonary at [address] [place] [address] scan 12/23/2024 Telephone [facility] Pulmonary at [address] [place] [address] Nilsa Ayala LPN 12/17/2024 Results Follow-Up [address] [address] Martina Elizabeth PA Comprehensive metabolic panel, CBC with auto differential, Erythrocyte sedimentation rate, CRP (acute phase) 12/16/2024 9:00 AM CDT Office Visit [address] [address] Martina Elizabeth PA 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 factor (HCC) (Primary Dx); Pulmonary nodules; residential current use 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 drug 11/27/[address] [address] Katharine Chavis 11/25/2024 Orders Only [facility] Pulmonary at [address] [address] Frankie Cardoso MD Pulmonary nodules (Primary Dx) 11/24/2024 Orders Only [facility] Pulmonary at [address] [address] Frankie Cardoso MD 11/20/2024 Telephone [facility] Pulmonary at [address] [place] [address] Bertha Churchill LPN sick call follow up 11/13/2024 10:45 AM CDT Office Visit [facility] Pulmonary at [address] [place] [address] Frankie Cardoso MD Pulmonary nodules (Primary Dx); [...] [facility] Operating Room [address] [place] [address] Frankie Cardoso MD RADIAL BRONCHOSCOPY ENDOBRONCHIAL ULTRASOUND-transcronc hial biopsies of DAVIDA nodule and Lingula nodule 11/06/2024 7:27 AM CDT Anesthesia Event [facility] Operating Room [address] [place] [address] Ish Batista MD 11/06/2024 6:19 AM CDT - 11/06/2024 10:55 AM CDT Hospital Encounter [facility] Operating Room [address] [place] [address] Frankie Cardoso MD Lung mass Discharge Disposition: Discharge to home or self care 10/31/2024 Telephone [facility] Pulmonology [address] [facility] [address] [place] [phone] Frankie Cardoso MD 10/22/2024 Telephone [facility] Pulmonary at [address] [address] Nilsa Ayala LPN [employer] question 10/20/2024 11:00 AM CDT Office Visit [facility] Pulmonary at [address] [place] [address] Deborah Palafox NP Centrilobular emphysema (HCC) (Primary Dx); Pulmonary nodules; 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 Imaging Center [address] [place] [address] Pulmonary nodules Discharge Disposition: Discharge to home or self care 10/10/2024 Telephone [facility] Imaging Center [address] [place] [address] Taz Sultana from Last 3 Months Immunizations [...] 01/16/2018,11/08/2017,06/23/2009 Surgical History Surgery Date Site/Laterality Comments CT UNLISTED PROCEDURE BREAST 04/23/1977 - 04/22/1978 Right [...] on file Legal Sex Female 10:10 AM LACING CUTTER Gender Identity Not on file Sexual [...] hands with positive rheumatoid factor (HCC) terminal carman current use 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 drug ERYTHROCYTE SEDIMENTATION RATE Routine 12/16/2024 9:12 AM CDT 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 factor (HCC) residential current use 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 drug CBC WITH AUTO DIFFERENTIAL Routine 12/16/2024 9:12 AM CDT 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 factor (HCC) terminal carman current use 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 drug COMPREHENSIVE METABOLIC PANEL Routine 12/16/2024 9:12 AM CDT 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 factor (HCC) residential current use 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 drug SURGICAL PATHOLOGY [...] ACID-FAST STAIN Routine 11/06/2024 8:[address] AN ELECTIVE ENDOTRACHEAL AIRWAY Routine 11/06/2024 7:38 AM CDT BRONCHOSCOPY ENDOBRONCHIAL ULTRASOUND 11/06/2024 7:27 AM CDT Lung mass ECG 12-LEAD STAT 11/06/2024 7:[address] CHEST WO CONTRAST Schedule Routine, Read Routine (OP Routine) 10/11/2024 9:14 AM CDT Pulmonary nodules HEPATITIS PANEL, ACUTE Routine 10:09 AM LACING CUTTER Rheumatoid arthritis involving both hands with [...] BLOOD ORDERABLES Final Result Performing Organization Address City/[facility]/ZIP Co de Phone Number [facility] [address] [place] [address] * Erythrocyte sedimentation rate (12/16/2024 9:12 AM CDT) [facility] Erythrocyte sedimentation rate 29 < OR = 30 mm/h [facility] Blood 12/16/2024 9:12 AM CDT 12/16/2024 9:13 AM CDT Martina JONES LAB BLOOD ORDERABLES Final Result Performing Organization Address City/[facility] Co de Phone Number [facility] [address] [place] [address] * (ABNORMAL) CRP (acute phase) (12/16/2024 9:12 AM CDT) C-RP 47.4(H) <8.0 mg/L [facility] Blood 12/16/2024 9:12 AM CDT 12/16/2024 9:13 AM CDT us Martina JONES LAB BLOOD ORDERABLES Final Result [facility] [address] [place] [address] * (ABNORMAL) Comprehensive metabolic panel (12/16/2024 9:12 AM CDT) Pathologist [facility] Glucose 99 65 - 99 mg/dL [facility] [...] Martina JONES LAB BLOOD ORDERABLES Final Result [facility] [address] [place] [address] * Surgical pathology (11/06/2024 9:41 AM CDT) Tissue (Lung Biopsy) 11/06/2024 8:14 AM CDT Tissue specimen (specimen) (Lung Biopsy) 11/06/2024 8:14 AM CDT Narrative PATHOLOGY [facility] ([place]) - 11/10/2024 3:06 PM CDT EPIC results best viewed via link to PDF [facility] Department of Pathology [address] [place] [address] Note to Patients: This report may contain [...] Final Report Patient Name: DARRION GUILLORY Address: [address] [place] [address] Gender: F : 1950 (Age: 74) Service: Surgery Location: [facility] Hospital #: [id number] Patient Type: [facility] Taken: 11/06/2024 Received: 11/06/2024 Accessioned: 11/06/2024 Reported: [...] by the Surgical Pathology Department at [facility] as part of an ongoing quality facilitator program and in compliance with federally mandated [...] characteristics determined by the Surgical Pathology Department [facility]. It has not been cleared or approved by the U. S. Food and Drug Administration. Note for decalcified specimens: This assay has not been validated on decalcified tissues. Results should be interpreted with caution given the possibility of false negativity on decalcified specimens Frankie Cardoso MD LAB PATHOLOGY ORDERABLES Final R esult PATHOLOGY [facility] ([place]) [address] [place] [id number] * X-ray chest 1 view (Portable) (11/06/2024 [...] Austin Juárez M.D. MZ: MZ Report ID: [id number] Reading Location: [place] [address] Procedure Note Austin Juárez MD - 11/06/2024 [...] Austin Juárez M.D. MZ: MZ Report ID: [id number] Reading Location: [id number] Frankie Cardoso MD IM XR PROCEDURES Final [...] Wilmer Gold M.D. KH: KH Report ID: [id number] Reading Location: [id number] Procedure Note Wilmer Gold MD - 11/14/2024 [...] by Wilmer Georges.D. KH: LIZBETH Report ID: [id number] Reading Location: [id number] Frankie Cardoso MD IMG XR PROCEDURES Final Result * FL Fluoroscopy < 1 Hour (11/06/2024 8:49 AM CDT) Narrative RAD_[facility] - 11/06/2024 8:50 AM CDT The images from this study are not interpreted by Radiology. Please refer to the physician's procedure / OR operative note. Frankie Cardoso MD IMG FLUOROSCOPY PROCEDURES Final Result [facility] * Tissue aerobic and anaerobic culture and gram stain Tissue Lobe, left upper (11/06/2024 8:00 AM CDT) Direct Specimen Exam Stain: No polymorphonuclear leukocytes seen. No organisms seen. Comment:Testing performed by : [facility], [address] [place]., [address] Report Final Report: No growth [facility] ([facility]) Comment:Testing performed by : [facility], [address] [place]., [address] Tissue (Lobe, left upper) 11/06/2024 8:00 AM CDT 11/06/2024 1:[address] [facility] ([facility]) - 11/09/2024 9:50 AM CDT Left upper lobe nodule Testing performed by [facility] ([phone]) Specimens submitted from normally sterile body sites [...] SOFÍA Final Result [facility] ([place]) [address] [facility] [place] [address] * Mycology (fungal) culture Tissue Lobe, left upper (11/06/2024 8:00 AM CDT) Report Final Report: No growth of fungus Comment:Testing performed by : [facility], [address] [place]., [address] Tissue (Lobe, left upper) 11/06/2024 8:00 AM CDT 11/06/2024 1:[address] [facility] [facility] ([facility]) - 12/04/2024 7:18 AM CDT Left upper lobe nodule Testing performed by [facility] ([phone]). Frankie Cardoso MD LAB MICROBIOLOGY - GENERAL ORDER SOFÍA Final Result Performing Organization Address [facility] Co de Phone Number [facility] ([place]) [address] [facility] [place] [address] * Mycobacteriology (AFB) culture and acid-fast stain Tissue Lobe, left upper (11/06/2024 8:00 AM CDT) Direct Specimen Exam Stain: No Acid-fast bacilli seen Comment:Testing performed by : [facility], [address] [place]., [address] Report Final Report: No growth of acid-fast bacilli [facility] ([facility]) Comment:Testing performed by : [facility], [address] [place]., [address] Tissue (Lobe, left upper) 11/06/2024 8:00 AM CDT 11/06/2024 1:[address] [facility] ([facility]) - 01/05/2025 8:03 AM CDT Left upper lobe nodue Testing performed by [facility] ([phone]). us Frankie Cardoso MD LAB MICROBIOLOGY - GENERAL ORDER SOFÍA Final Result [facility] [place] [address] [facility] Department of Laboratories [place], [place] [id number] * CT AN ELECTIVE ENDOTRACHEAL AIRWAY (11/06/2024 7:38 AM CDT) Narrative Star Lindquist CRNA - 11/06/2024 7:38 AM CDT Star Lindquist CRNA 11/06/2024 7:38 AM Airway Patient location: OR Urgency: elective Indications for airway management: anesthesia Difficult airway: no Staff: Placed by: PROTEIN CHEMIST: Star Lindquist CRNA Emergent airway documentation: Risks [...] AM CDT) 11/06/2024 7:06 AM CDT Narrative [facility] - 11/06/2024 7:58 AM CDT Vent Rate: 90 bpm RR Interval: [address] Interval: 197 msec QRS Duration: 84 msec QT Interval: 341 msec QTC Interval: 388 msec P-R-T [place]: 50 - 5 - 53 degrees IMPRESSION: SINUS RHYTHM Baseline artifact No prior EKG for comparison Electronically Signed By: Dr Dakota Gómez us Ish Batista MD ECG ORDERABLES Final Result [employer] [facility] * CT chest without contrast (10/11/2024 9:14 [...] and lymph node dissection September 11. Clinical gie-sarne-mvzf lung cancer right lower lobe status post [...] Status post right upper lobectomy. Background of lgqqnbmc-hz-elvwtw emphysematous changes. Bilateral lung base scarring. Interval [...] Christian Molina M.D. NS: NS Report ID: [id number] Reading Location: [id number] Procedure Note Christian Molina MD - 10/24/2024 [...] and lymph node dissection September 11. Clinical zca-eomes-ofye lung cancer right lower lobe status post [...] LUNGS: Status post right upper lobectomy. Background nivjpiugxm-ff-xymtum emphysematous changes. Bilateral lung base scarring. Interval [...] Christian Molina M.D. NS: NS Report ID: [id number] Reading Location: [id number] us Frankie Cardoso MD IMG CT PROCEDURES Final Result * Hepatitis panel, acute (02/28/2021 10:09 AM LACING CUTTER) Hep A IgM NON-REACTI VE NON-REACT MARIANNA [facility] Comment: For additional information, please refer to http://Flirtic.com.99Bill/faq/RUX025 (This link is being provided for informational/ [...] a test for HCV RNA (test code 04064) is suggested. For additional information please refer to http://Flirtic.com.99Bill/faq/HOJ55r6 (This link is being provided for informational/ educational purposes only.) Blood specimen (specimen) 02/28/2021 10:09 AM LACING CUTTER 02/28/2021 10:15 AM LACING CUTTER Martina JONES LAB MICROBIOLOGY - NERAL ORDERABLES Final Result [facility] [address] [address] [place] [phone] from Last 3 Months or Most Recently Relevant to Health Maintenance Insurance [facility] Advance Directives For more information, please contact: [phone] * Full Code (Latest Code Status on File) Date Activated Date Inactivated Comments 09/12/2021 4:12 PM 09/14/2021 4:07 PM Care Teams Pediatric Speech Language Pathologist Relationship Specialty Start Date End Date Terry Bender DO [address] [place] [address] PCP - General Internal Medicine 12/07/23 Wilmer Taylor MD [address] [id number] Referring Physician Obstetrics and Gynecology 05/09/12 Jeffrey Koch MD [address] [place] [address] Consulting Physician Rheumatology 02/03/21 Luz Lewis MD [address] [place] [address] Referring Physician Surgery 12/14/21 Raleigh Jay MD PhD [address] [place] [address] Radiation Oncologist Radiation Oncology 12/12/22 Ranjan Cazares MD [address] [place] [address] Surgeon Thoracic Surgery 12/12/22 Martina Elizabeth PA [address] [place] [address] Physician Cloth Worker Rheumatology 10/20/24
[2025-01-08 17:01] VITALS: BP 120/72; PULSE 75; RESP 20; TEMP 36.7; O2SAT 100
--- NOTE | 2025-01-08 17:28 | ECG_ITS ---
Test Date: 2025-01-08 17:51:26 Measurements Intervals [place] Rate: 73 P: 31 NM: 205 QRS: -19 QRSD: 79 T: 71 QT: 367 QTc: 406 Interpretive Statements SINUS RHYTHM WITH OCCASIONAL SUPRAVENTRICULAR PREMATURE COMPLEXES LOW QRS VOLTAGE IN PRECORDIAL LEADS [QRS DEFLECTION < 1.0 mV IN CHEST LEADS] MODERATE ST DEPRESSION [0.05+ mV ST DEPRESSION], CONSIDER LATERAL ISCHEMIA ABNORMAL ECG Compared to ECG 04/26/2024 09:58:25 Low QRS voltage now present ST (T wave) deviation now present Electronically Signed On 01-08-2025 18:01:53 CDT by Satr Menezes M.D.
--- NOTE | 2025-01-08 17:30 | ED.SOB ---
HPI - SOB/Dyspnea General Chief Complaint: Shortness of Breath/Dyspnea <Evelyn Gallardo APRN - Last Filed: 01/08/25 17:32> Stated Complaint: SOB <Evelyn Gallardo APRN - Last Filed: 01/08/25 17:32> Time Seen by Provider: 01/08/25 17:30 <Evelyn Gallardo APRN - Last Filed: 01/08/25 17:32> Focused HPI: Patient is a 74-year-old female who presents to the ER with complaints of shortness of breath. She reports she is on 4 L nasal cannula at baseline but has had increased work of breathing with exertion recently. Patient was brought in by EMS after her daughter called her and was unable to get hold of her. She reports she was recently here for UTI and yeast infection. Patient endorses a history of AFib and she is on a blood thinner. GENERAL: Well-appearing, well-nourished, and in no acute distress. HEAD: Normocephalic, atraumatic. CHEST: Wheezing L lower lobe. ?No respiratory distress. HEART: Regular rate and rhythm.? NEURO: ?Alert and oriented x3. Patient screened in triage and initial orders placed.? ?Additional care and disposition to be based upon?diagnostic testing and treatment. <Evelyn Gallardo APRN - Last Filed: 01/08/25 17:32> History of Present Illness HPI Narrative: per HPI <Letha Manley MD - Last Filed: 01/09/25 00:42> Related Data Home Medications: Home Medications ?Medication ?Instructions ?Recorded ?Confirmed ?Last Taken ?Type omega-3 fatty acids 1,000 mg 1,000 mg PO DAILY 06/17/19 12/03/24 04/25/24 History capsule (Fish Oil Concentrate) umeclidinium 62.5 mcg-vilanterol 1 inh inhalation 06/04/24 12/03/24 Unknown History 25 mcg/actuation powdr for inhalation (Anoro Ellipta) prednisone 10 mg tablet 10 mg PO TID 12/03/24 12/03/24 Unknown History sulfamethoxazole 800 1 tablet PO 3XW 12/03/24 12/03/24 Unknown History mg-trimethoprim 160 mg tablet <Evelyn Gallardo APRN - Last Filed: 01/08/25 17:32> Allergies/Adverse Reactions: Allergies Allergy/AdvReac Type Severity Reaction Status Date / Time omeprazole Allergy Unknown rash Verified 01/08/25 23:59 ciprofloxacin (From Cipro) AdvReac Intermediate Cramping Verified 01/08/25 23:59 of the Muscles levofloxacin AdvReac Intermediate Other Verified 01/08/25 23:59 amoxicillin AdvReac Mild Diarrhea Verified 01/08/25 23:59 ibuprofen AdvReac Unknown Verified 01/08/25 23:59 <Evelyn Gallardo APRN - Last Filed: 01/08/25 17:32> Review of Systems Review of Systems: All systems reviewed & are unremarkable except as noted in HPI and below <Letha Manley MD - Last Filed: 01/09/25 00:42> PMFSH Past Medical History Medical History: Medical History BMI 22.0-22.9, adult BMI 23.0-23.9, adult 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 Grandparent Heart disease Hypertension Father Blood infection <Evelyn Gallardo APRN - Last Filed: 01/08/25 17:32> Social History Social History: Social History (Updated 01/08/25 @ 23:27 by Carina Pang APRN) Social History: ful code 2 children . 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 Smoking packs per day: 1 Smoking cigarettes per day: 20.0 Years smoked: 40 Smoking pack-years: 40.00 Smoking status: Former smoker Tobacco type: cigarettes Second hand tobacco smoke exposure: Yes Smoking end date: 04/23/15 Alcohol intake: current Substance use: never Substance use type: does not use Do You Feel Safe in your Home?: Yes Lack of Transportation: No Lack of Food: Never True Current Housing: I Have Housing Concerned About Future Housing: No Difficulty Paying Gas/Electric Bills: No Difficulty Paying for Meds: No Currently Unemployed: No Education: High School Diploma/GED Difficulty w/ Childcare or Family Care: No Living arrangements: alone Occupation/Education: retired 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 EYES: EOMI, conjunctiva normal ENT: Hearing grossly intact LUNGS: Nonlabored breathing. Left-sided rhonchi HEART: [Regular rate and rhythm] ABD: [Soft], [nontender to palpation] EXT: Normal range of motion SKIN: [No rashes or lesions.] NEURO: [Alert and oriented x 3. No gross focal sensory or strength deficits.] PSYCH: Normal affect <Letha Manley MD - Last Filed: 01/09/25 00:42> Course Vital Signs Vital signs: Vital Signs Temperature 98.0 F 01/08/25 17:01 Pulse Rate 75 01/08/25 17:01 Respiratory Rate 20 01/08/25 17:01 Blood Pressure 120/72 01/08/25 17:01 Pulse Oximetry 100 01/08/25 17:01 Oxygen Delivery Nasal Cannula 01/08/25 17:01 Oxygen Flow Rate 4 01/08/25 17:01 Temperature 98.0 F 01/08/25 17:01 Pulse Rate 96 01/09/25 00:27 Respiratory Rate 20 01/09/25 00:27 Blood Pressure 127/74 01/09/25 00:27 Pulse Oximetry 98 01/09/25 00:27 Oxygen Delivery Nasal Cannula 01/08/25 23:24 Oxygen Flow Rate 4 01/08/25 23:24 <Evelyn Gallardo APRN - Last Filed: 01/08/25 17:32> Vital Signs Temperature 98.0 F 01/08/25 17:01 Pulse Rate 75 01/08/25 17:01 Respiratory Rate 20 01/08/25 17:01 Blood Pressure 120/72 01/08/25 17:01 Pulse Oximetry 100 01/08/25 17:01 Oxygen Delivery Nasal Cannula 01/08/25 17:01 Oxygen Flow Rate 4 01/08/25 17:01 Temperature 98.0 F 01/08/25 17:01 Pulse Rate 96 01/09/25 00:27 Respiratory Rate 20 01/09/25 00:27 Blood Pressure 127/74 01/09/25 00:27 Pulse Oximetry 98 01/09/25 00:27 Oxygen Delivery Nasal Cannula 01/08/25 23:24 Oxygen Flow Rate 4 01/08/25 23:24 <Letha Manley MD - Last Filed: 01/09/25 00:42> MDM - SOB/Dyspnea MDM Narrative Medical decision making narrative: Patient presents with increased shortness of breath, also has had a UTI is on antibiotics for this. EKG on my independent interpretation shows sinus rhythm rate 73, IN with 205, QRS 79, QTC 406, no obvious ST elevations depressions or signs of acute ischemia or arrhythmia Chest x-ray on my independent interpretation shows left upper lobe consolidation, new from prior chest x-ray from April. Discussed with patient, suspect pneumonia, antibiotics started, will admit, discussed with hospitalist for admission. Patient agreeable to plan <Letha Manley MD - Last Filed: 01/09/25 00:42> Lab Data Result diagrams: 01/08/25 17:49 01/08/25 17:49 <Evelyn Gallardo APRN - Last Filed: 01/08/25 17:32> Labs: Lab Results 01/08/25 01/08/25 Range/Units 17:49 18:00 WBC 6.8 (4.5-10.0) K/mm3 RBC 3.26 L (4.2-5.4) M/mm3 Hgb 9.8 L (12.0-15.0) g/dL Hct 31.4 L (37.0-47.0) % MCV 96.3 (80-100) fl MCH 30.1 (26-34) pg MCHC 31.2 L (32-36) g/dl RDW 19.4 H (11.5-14.5) % Plt Count 277 (150-375) k/mm3 MPV 8.7 (7.4-10.4) fl Immature Gran % (Auto) 2.8 H (0-0.5) % Neut % (Auto) 87.8 H (45.5-73.1) % Lymph % (Auto) 4.7 L (18.3-44.2) % [place] % (Auto) 4.4 (2.6-8.5) % Eos % (Auto) 0.0 (0-4.4) % Baso % (Auto) 0.3 (0.2-1.2) % Lymph # (Auto) 0.32 L (0.9-3.2) K/mm3 [place] # (Auto) 0.3 (0.1-0.6) K/mm3 Eos # (Auto) 0.0 (0-0.3) K/mm3 Baso # (Auto) 0.0 (0.0-0.1) K/mm3 Abs Immat Gran (auto) 0.19 H (0.00-0.031) K/mm3 Absolute Neuts (auto) 6.0 (1.3-6.7) K/mm3 Absolute Nucleated RBC 0.000 (0.0-0.012) K/mm3 Nucleated RBC % 0.0 (0.0-0.2) % PT 18.6 H (11.1-14.7) Seconds INR 1.6 APTT 31.0 (22.3-36.8) Seconds Sodium 129 L (137-145) mmol/L Potassium 4.4 (3.4-5.0) mmol/L Chloride 97 L (98-107) mmol/L Carbon Dioxide 27 (22-30) mmol/L Anion Gap 5 (4-12) mmol/L BUN 24 H (7-17) mg/dL Creatinine 0.74 (0.7-1.0) mg/dL Estim Creat Clear Calc 48 ml/min Estimated GFR > 60 (59 - ) Glucose 124 H (65-110) mg/dL Calcium 9.0 (8.4-10.2) mg/dL Magnesium 1.8 (1.6-2.3) mg/dL Total Bilirubin 0.5 (0.2-1.3) mg/dL AST 24 (14-36) U/L ALT 17 (6-35) U/L Alkaline Phosphatase 60 (38-126) U/L Troponin I < 0.012 (0.000-0.034) ng/mL NT-Pro-B Natriuret Pep 3730 H (19.9-100) pg/mL Total Protein 6.2 L (6.3-8.2) g/dL Albumin 3.2 L (3.5-5.1) g/dL Urine Color Yellow (Yellow) Urine Appearance Cloudy H (Clear) Urine pH 5.5 (5.0-9.0) Ur Specific Bonham 1.029 (1.001-1.035) Urine Protein 1+ H (Negative) mg/dL Urine Glucose (UA) Negative (Negative) mg/dL Urine Ketones Trace H (Negative) mg/dL Ur Blood (Man) Negative (Negative) Urine Nitrate Negative (Negative) Urine Bilirubin Negative (Negative) Urine Urobilinogen 1.0 (<2.0) mg/dL Add Ur Microanalysis Reviewed Leukocyte Esterase Rfl 2+ H (Negative) JAMIE/UL Urine RBC 21-50 H (0-2) /hpf Urine WBC >100 H (0-3) /hpf Ur Squamous Epith Cells Moderate (Few) /hpf Urine Bacteria 1+ H /hpf Urine Casts 3-5 Hyaline Casts Present (None) /lpf Urine Mucus Present /lpf <Evelyn Gallardo, ICE SKATING COACH - Last Filed: 01/08/25 17:32> Lab Results 01/08/25 01/08/25 Range/Units 17:49 18:00 WBC 6.8 (4.5-10.0) K/mm3 RBC 3.26 L (4.2-5.4) M/mm3 Hgb 9.8 L (12.0-15.0) g/dL Hct 31.4 L (37.0-47.0) % MCV 96.3 (80-100) fl MCH 30.1 (26-34) pg MCHC 31.2 L (32-36) g/dl RDW 19.4 H (11.5-14.5) % Plt Count 277 (150-375) k/mm3 MPV 8.7 (7.4-10.4) fl Immature Gran % (Auto) 2.8 H (0-0.5) % Neut % (Auto) 87.8 H (45.5-73.1) % Lymph % (Auto) 4.7 L (18.3-44.2) % [place] % (Auto) 4.4 (2.6-8.5) % Eos % (Auto) 0.0 (0-4.4) % Baso % (Auto) 0.3 (0.2-1.2) % Lymph # (Auto) 0.32 L (0.9-3.2) K/mm3 [place] # (Auto) 0.3 (0.1-0.6) K/mm3 Eos # (Auto) 0.0 (0-0.3) K/mm3 Baso # (Auto) 0.0 (0.0-0.1) K/mm3 Abs Immat Gran (auto) 0.19 H (0.00-0.031) K/mm3 Absolute Neuts (auto) 6.0 (1.3-6.7) K/mm3 Absolute Nucleated RBC 0.000 (0.0-0.012) K/mm3 Nucleated RBC % 0.0 (0.0-0.2) % PT 18.6 H (11.1-14.7) Seconds INR 1.6 APTT 31.0 (22.3-36.8) Seconds Sodium 129 L (137-145) mmol/L Potassium 4.4 (3.4-5.0) mmol/L Chloride 97 L (98-107) mmol/L Carbon Dioxide 27 (22-30) mmol/L Anion Gap 5 (4-12) mmol/L BUN 24 H (7-17) mg/dL Creatinine 0.74 (0.7-1.0) mg/dL Estim Creat Clear Calc 48 ml/min Estimated GFR > 60 (59 - ) Glucose 124 H (65-110) mg/dL Calcium 9.0 (8.4-10.2) mg/dL Magnesium 1.8 (1.6-2.3) mg/dL Total Bilirubin 0.5 (0.2-1.3) mg/dL AST 24 (14-36) U/L ALT 17 (6-35) U/L Alkaline Phosphatase 60 (38-126) U/L Troponin I < 0.012 (0.000-0.034) ng/mL NT-Pro-B Natriuret Pep 3730 H (19.9-100) pg/mL Total Protein 6.2 L (6.3-8.2) g/dL Albumin 3.2 L (3.5-5.1) g/dL Urine Color Yellow (Yellow) Urine Appearance Cloudy H (Clear) Urine pH 5.5 (5.0-9.0) Ur Specific Bonham 1.029 (1.001-1.035) Urine Protein 1+ H (Negative) mg/dL Urine Glucose (UA) Negative (Negative) mg/dL Urine Ketones Trace H (Negative) mg/dL Ur Blood (Man) Negative (Negative) Urine Nitrate Negative (Negative) Urine Bilirubin Negative (Negative) Urine Urobilinogen 1.0 (<2.0) mg/dL Add Ur Microanalysis Reviewed Leukocyte Esterase Rfl 2+ H (Negative) JAMIE/UL Urine RBC 21-50 H (0-2) /hpf Urine WBC >100 H (0-3) /hpf Ur Squamous Epith Cells Moderate (Few) /hpf Urine Bacteria 1+ H /hpf Urine Casts 3-5 Hyaline Casts Present (None) /lpf Urine Mucus Present /lpf <Letha Manley MD - Last Filed: 01/09/25 00:42> Discharge Plan Discharge Clinical Impression: Pneumonia, Acute UTI <Evelyn Gallardo APRN - Last Filed: 01/08/25 17:32> Patient Disposition: Still a Patient <Evelyn Gallardo APRN - Last Filed: 01/08/25 17:32> Condition: Stable <Evelyn Gallardo APRN - Last Filed: 01/08/25 17:32>
--- NOTE | 2025-01-08 17:34 | PCRCNOTE ---
Pt does not have a room yet.
[2025-01-08 17:55] LABS: Hematocrit 31.4 % (37.0-47.0); Hemoglobin 9.8 g/dL (12.0-15.0); Immature Granulocyte Percent A 2.8 % (0-0.5); Lymphocytes Absolute Auto 0.32 K/mm3 (0.9-3.2); Mean Corpuscular HGB Conc 31.2 g/dl (32-36); Mean Corpuscular Hemoglobin 30.1 pg (26-34); Mean Corpuscular Volume 96.3 fl (80-100); Nucleated Red Blood Cells Absolute Auto 0.000 K/mm3 (0.0-0.012); Nucleated Red Blood Cells Perc 0.0 % (0.0-0.2); Platelet Count Result 277 k/mm3 (150-375); Red Blood Count 3.26 M/mm3 (4.2-5.4); White Blood Count 6.8 K/mm3 (4.5-10.0)
[2025-01-08 18:11] LABS: Alanine Aminotransferase 17 U/L (6-35); Albumin Level 3.2 g/dL (3.5-5.1); Alkaline Phosphatase 60 U/L (38-126); Anion Gap 5 mmol/L (4-12); Aspartate Amino Transferase 24 U/L (14-36); Bilirubin,Total 0.5 mg/dL (0.2-1.3); Blood Urea Nitrogen 24 mg/dL (7-17); Calcium 9.0 mg/dL (8.4-10.2); Carbon Dioxide 27 mmol/L (22-30); Chloride 97 mmol/L (98-107); Estimated CRCL calculation 48 ml/min; Estimated Glomerular Filt Rate > 60; Glucose 124 mg/dL (65-110); Magnesium 1.8 mg/dL (1.6-2.3); Potassium 4.4 mmol/L (3.4-5.0); Sodium 129 mmol/L (137-145); Total Protein 6.2 g/dL (6.3-8.2)
[2025-01-08 18:22] LABS: NT Pro B Type Natriuretic Pept 3730 pg/mL (19.9-100); Troponin I < 0.012 ng/mL (0.000-0.034)
[2025-01-08 18:29] LABS: INR 1.6; Partial Thromboplastin Time 31.0 Seconds (22.3-36.8); Prothrombin Time 18.6 Seconds (11.1-14.7)
[2025-01-08 18:30] LABS: Add Urine Microscopic? YES; Appearance Urine Cloudy (Clear); Glucose Urine UA Negative (Negative); Leukocyte Esterase Ur 2+ LEU/UL (Negative); Need Manual Microscopic Reviewed; Nitrate Urine Negative (Negative); Specific Grav Ur 1.029 (1.001-1.035)
[2025-01-08 22:29] VITALS: BP 125/60; PULSE 73; RESP 22; O2SAT 99
[2025-01-08 22:30] VITALS: PULSE 74
[2025-01-08 22:31] VITALS: O2SAT 100
--- NOTE | 2025-01-08 22:32 | PCRCNOTE ---
Doc said to not give TX.
--- OUTSIDE RECORDS SUMMARY | 2025-01-08 22:55 | XMS_ITS ---
Author Organization [facility] Address [address] [place] [address] Care Team Providers Care Environmental Sustainability Manager Name Role Phone Wilmer Taylor MD Unavailable [phone] Jeffrey Koch MD Unavailable [phone] Luz Lewis MD Unavailable [phone] Raleigh Jay MD PhD Unavailable Ranjan Cazares MD Unavailable [phone] Terry Bender DO Primary Care Provider [phone] Martina Elizabeth Unavailable Active Problems Patient Care Coordination No te Formatting of this note migh t be different from the original. Referring provider: Dr. Terry Bender Ms. Loiad Guillory is a 71-year-old with a lung [...] PRN. Assessment & Plan (05/21/2023 12:22 PM REGISTRATION COORDINATOR): Pain overlying right lateral chest wall. TTP [...] (11/21/2021): Added automatically from request for surgery [id number] Bronchogenic lung cancer, right 09/12/2021 COPD (chronic [...] (09/01/2021): Added automatically from request for surgery [id number] intermediate teacher current use 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 drug 2021 Assessment & Plan (12/16/2024 9:38 AM CDT): Hepatitis negative: 02/2021 Routine lab monitoring while on MTX. Assessment & Plan (09/11/2024 8:57 AM CDT): Hepatitis negative: 02/2021 Assessment & Plan (04/17/2024 9:13 AM REGISTRATION COORDINATOR): Hepatitis negative: 02/2021 Assessment & Plan (10/08/2023 9:05 AM CDT): Hepatitis negative: 02/2021 Assessment & Plan (07/09/2023 9:21 AM CDT): Hepatitis negative: 02/2021 Assessment & Plan (05/21/2023 10:12 AM REGISTRATION COORDINATOR): Hepatitis negative: 02/2021 Assessment & Plan (02/12/2023 11:59 AM CDT): Hepatitis negative: 02/2021 Assessment & Plan (10/09/2022 1:07 PM CDT): Hepatitis negative: 02/2021 Assessment & Plan (05/15/2022 10:43 AM REGISTRATION COORDINATOR): Hepatitis negative: 02/2021 Assessment & Plan (01/16/2022 10:56 AM CDT): Hepatitis negative: 02/2021 Assessment & Plan (10/17/2021 12:11 PM CDT): Hepatitis negative: 02/2021 Assessment & Plan (06/20/2021 10:12 AM REGISTRATION COORDINATOR): Hepatitis negative: 02/2021 Rheumatoid arthritis involvi ng [...] needed. Assessment & Plan (04/17/2024 9:44 AM REGISTRATION COORDINATOR): Cdai in remission. Seropositive RA (+RF, CCP) [...] needed. Assessment & Plan (05/21/2023 12:18 PM REGISTRATION COORDINATOR): Low cdai. Seropositive RA (+RF, CCP) that [...] needed. Assessment & Plan (05/15/2022 10:55 AM REGISTRATION COORDINATOR): Low cdai. Seropositive RA (+RF, CCP) that [...] needed. Assessment & Plan (06/20/2021 10:11 AM REGISTRATION COORDINATOR): Seropositive RA (+RF, CCP) that remains well controlled with MTX 12.5mg weekly. Main complaints are pain involving the R 4th PIP joints and cervical spine which are degenerative however is responding well to Voltaren gel otc. Will continue MTX 12.5mg weekly and folic acid 1mg daily.Routine labs today. Follow up in 3 months. Sooner if needed. Assessment & Plan (03/14/2021 10:50 AM REGISTRATION COORDINATOR): Seropositive RA (+RF, CCP) that remains well [...] Koch. Assessment & Plan (02/28/2021 9:54 AM REGISTRATION COORDINATOR): 70-year-old female with PMHx of HTN, COPD, [...] PM&R. Assessment & Plan (04/17/2024 9:13 AM REGISTRATION COORDINATOR): Pain worse with activity and improved with [...] PM&R. Assessment & Plan (05/21/2023 12:11 PM REGISTRATION COORDINATOR): Pain worse with activity and improved with [...] exercises. Assessment & Plan (05/15/2022 10:43 AM REGISTRATION COORDINATOR): Pain worse with activity and improved with [...] exercises. Assessment & Plan (06/20/2021 10:11 AM REGISTRATION COORDINATOR): Pain worse with activity and improved with rest. Denies radiating pain. 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 Patient defers PT and worried about NSAIDs with her current medication regimen. Taking tylenol otc prn with some relief. Using Voltaren gel otc prn with good relief. Continue home exercises. Assessment & Plan (03/14/2021 10:52 AM REGISTRATION COORDINATOR): Pain worse with activity and improved with [...] pain. Assessment & Plan (02/28/2021 9:57 AM REGISTRATION COORDINATOR): Pain worse with activity and improved with [...]
--- OUTSIDE RECORDS SUMMARY | 2025-01-08 22:55 | XMS_ITS | Encounter Summary ---
Author Organization [facility] Address [address] [place] [address] Phone Care Team Providers Care Digital Asset Specialist Name Role Phone Wilmer Taylor MD Unavailable [phone] Jeffrey Koch MD Unavailable [phone] Luz Lewis MD Unavailable [phone] [facility] CompanyRaleigh MD PhD Unavailable [phone] Ranjan Cazares MD Unavailable [phone] Terry Bender DO Primary Care Provider [phone] Martina Elizabeth Unavailable Encounter Details Date Type Department Care Team (Latest Contact Info) Description 12/17/2024 Results Follow-Up [facility] [address] [place] [address] Martina Elizabeth PA [address] [place] [address] Comprehensive metabolic panel, CBC with [...] on file 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 Gender Identity Not on file Sexual Orientation Not on file documented as of this encounter Plan of Treatment Not on file documented as of this encounter Visit Diagnoses Not on filedocumented in this encounter Care Teams Digital Asset Specialist Relationship Specialty Start Date End Date Terry Bender DO [address] [place] [address] PCP - General Internal Medicine 12/07/23 Wilmer Taylor MD [address] [address] Referring Physician Obstetrics and Gynecology 05/09/12 Jeffrey Koch MD [address] [place] [address] Consulting Physician Rheumatology 02/03/21 Luz Lewis MD [address] [place] [address] Referring Physician Surgery 12/14/21 Raleigh Jay MD PhD [address] [place] [address] Radiation Oncologist Radiation Oncology 12/12/22 Ranjan Cazares MD [address] [place] [address] Surgeon Thoracic Surgery 12/12/22 Martina Elizabeth PA [address] [place] [address] Physician Handle Bender Rheumatology 10/20/24 documented as of this encounter
--- OUTSIDE RECORDS SUMMARY | 2025-01-08 22:55 | XMS_ITS | Encounter Summary ---
Author Organization [facility] Address [address] [facility] [address] [place] [address] Phone Care Team Providers Care Poly Operator Name Role Phone Terry Bender DO Primary Care Provider [phone] Wilmer Taylor MD Unavailable [phone] Jeffrey Koch MD Unavailable [phone] Luz Lewis MD Unavailable [phone] Sin Mcclure MD Primary Care Provider [phone] Jay Argueta MD Primary Care Provider [phone] [facility] healthRaleigh farr MD PhD Unavailable [phone] Ranjan Cazraes MD Unavailable [phone] Gabriele Adams NP Primary Care Provider [phone] Terry Bender DO Primary Care Provider [phone] Martina Elizabeth Unavailable [phone] Encounter Details Date Type Department Care Team (Late st Contact Info) Description 08/30/2021 Telephone 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 Gender Identity Not on file Sexual Orientation Not on file documented as of this encounter Functional Status documented as of this encounter Plan of Treatment Not on file documented as of this encounter Visit Diagnoses Not on filedocumented in this encounter Care Teams Poly Operator Relationship Specialty Start Date End Date Terry Bender DO PCP - General Internal Medicine 01/03/18 05/14/22 Sin Mcclure MD [address] [place] [address] PCP - General Internal Medicine 05/15/22 11/28/22 Jay Argueta MD [address] [place] [address] PCP - General Family Practice 11/29/22 10/07/23 Gabriele Adams NP [address] [place] [address] PCP - General Nurse Practitioner 10/08/23 12/06/23 Terry Bender DO [address] [place] [address] PCP - General Internal Medicine 12/07/23 Wilmer Taylor MD [address] [facility] [address] [place] [address] Referring Physician Obstetrics and Gynecology 05/09/12 Jeffrey Koch MD [address] [place] [address] Consulting Physician Rheumatology 02/03/21 Luz Lewis MD [address] [place] [address] Referring Physician Surgery 12/14/21 Raleigh Jay MD PhD [address] [place] [address] Radiation Oncologist Radiation Oncology 12/12/22 Ranjan Cazares MD [address] [place] [address] Surgeon Thoracic Surgery 12/12/22 Martina Elizabeth PA [address] [place] [address] Physician Jd Edwards Rheumatology 10/20/24 documented as of this encounter
--- OUTSIDE RECORDS SUMMARY | 2025-01-08 22:55 | XMS_ITS | Clinical Summary ---
Author Organization [facility] Address [address] [place] [address] Care Team Providers Care Llama Farmer Name Role Phone Wilmer Taylor MD Unavailable [phone] Jeffrey Koch MD Unavailable [phone] Luz Lewis MD Unavailable Raleigh estrada MD PhD Unavailable Ranjan Cazares MD Unavailable [phone] Terry Bender DO Primary Care Provider Martina Elizabeth Unavailable [phone] Allergies Active Allergy Reactions Criticality Noted Date [...] by mouth daily after lunch Active omega 6-gbv-ldg-fish oil 100-160-1,000 mg capsuleIndicat ions:hypertrig lyceridemia Take [...] PRN. Assessment & Plan (05/21/2023 12:22 PM HOSPITAL CHIEF FINANCIAL OFFICER): Pain overlying right lateral chest wall. 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 Assessment & Plan (09/11/2024 8:57 AM CDT): Hepatitis negative: 02/2021 Assessment & Plan (04/17/2024 9:13 AM HOSPITAL CHIEF FINANCIAL OFFICER): Hepatitis negative: 02/2021 Assessment & Plan (10/08/2023 9:05 AM CDT): Hepatitis negative: 02/2021 Assessment & Plan (07/09/2023 9:21 AM CDT): Hepatitis negative: 02/2021 Assessment & Plan (05/21/2023 10:12 AM HOSPITAL CHIEF FINANCIAL OFFICER): Hepatitis negative: 02/2021 Assessment & Plan (02/12/2023 11:59 AM CDT): Hepatitis negative: 02/2021 Assessment & Plan (10/09/2022 1:07 PM CDT): Hepatitis negative: 02/2021 Assessment & Plan (05/15/2022 10:43 AM HOSPITAL CHIEF FINANCIAL OFFICER): Hepatitis negative: 02/2021 Assessment & Plan (01/16/2022 10:56 AM CDT): Hepatitis negative: 02/2021 Assessment & Plan (10/17/2021 12:11 PM CDT): Hepatitis negative: 02/2021 Assessment & Plan (06/20/2021 10:12 AM HOSPITAL CHIEF FINANCIAL OFFICER): Hepatitis negative: 02/2021 Rheumatoid arthritis involvi [...] needed. Assessment & Plan (04/17/2024 9:44 AM HOSPITAL CHIEF FINANCIAL OFFICER): Cdai in remission. Seropositive RA (+RF, [...] needed. Assessment & Plan (05/21/2023 12:18 PM HOSPITAL CHIEF FINANCIAL OFFICER): Low cdai. Seropositive RA (+RF, CCP) [...] needed. Assessment & Plan (05/15/2022 10:55 AM HOSPITAL CHIEF FINANCIAL OFFICER): Low cdai. Seropositive RA (+RF, CCP) [...] needed. 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 Main complaints are pain involving the R 4th PIP joints and cervical spine which are degenerative however is responding well to Voltaren gel otc. Will continue MTX 12.5mg weekly and folic acid 1mg daily.Routine labs today. Follow up in 3 months. Sooner if needed. Assessment & Plan (03/14/2021 10:50 AM HOSPITAL CHIEF FINANCIAL OFFICER): Seropositive RA (+RF, CCP) that remains [...] Koch. Assessment & Plan (02/28/2021 9:54 AM HOSPITAL CHIEF FINANCIAL OFFICER): 70-year-old female with PMHx of HTN, [...] PM&R. Assessment & Plan (04/17/2024 9:13 AM HOSPITAL CHIEF FINANCIAL OFFICER): Pain worse with activity and improved [...] PM&R. Assessment & Plan (05/21/2023 12:11 PM HOSPITAL CHIEF FINANCIAL OFFICER): Pain worse with activity and improved [...] exercises. Assessment & Plan (05/15/2022 10:43 AM HOSPITAL CHIEF FINANCIAL OFFICER): Pain worse with activity and improved [...] exercises. Assessment & Plan (06/20/2021 10:11 AM HOSPITAL CHIEF FINANCIAL OFFICER): Pain worse with activity and improved with rest. Denies radiating pain. 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 Patient defers PT and worried about NSAIDs with her current medication regimen. Taking tylenol otc prn with some relief. Using Voltaren gel otc prn with good relief. Continue home exercises. Assessment & Plan (03/14/2021 10:52 AM HOSPITAL CHIEF FINANCIAL OFFICER): Pain worse with activity and improved [...] pain. Assessment & Plan (02/28/2021 9:57 AM HOSPITAL CHIEF FINANCIAL OFFICER): Pain worse with activity and improved [...] Type Department Care Team Description 01/06/2025 Telephone [facility] Pulmonary at [address] [place] [address] Bertha Churchill LPN concerns 12/25/2024 Telephone [facility] Pulmonary at [address] [place] [address] scan 12/23/2024 Telephone [facility] Pulmonary at [address] [place] [address] Nilsa Ayala LPN 12/17/2024 Results Follow-Up [address] [address] Martina Elizabeth PA Comprehensive metabolic panel, CBC with auto differential, Erythrocyte sedimentation rate, CRP (acute phase) 12/16/2024 9:00 AM CDT Office Visit [address] [address] Martina Elizabeth PA 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 factor (HCC) (Primary Dx); Pulmonary nodules; [facility]itentiary current use 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 drug 11/27/[address] [address] Katharine Chavis 11/25/2024 Orders Only [facility] Pulmonary at [address] [address] Frankie Cardoso MD Pulmonary nodules (Primary Dx) 11/24/2024 Orders Only [facility] Pulmonary at [address] [address] Frankie Cardoso MD 11/20/2024 Telephone [facility] Pulmonary at [address] [place] [address] Bertha Churchill LPN sick call follow up 11/13/2024 10:45 AM CDT Office Visit [facility] Pulmonary at [address] [place] [address] Frankie Cardoso MD Pulmonary nodules (Primary Dx); Chronic obstructive pulmonary disease, unspecified COPD type (HCC); Malignant neoplasm of lower lobe, right bronchus or lung (HCC); Malignant neoplasm of upper lobe, left bronchus or lung (HCC); Malignant neoplasm of upper lobe, right bronchus or lung (HCC); Chronic respiratory failure with hypoxia (HCC) 11/06/2024 7:30 AM CDT - 11/06/2024 9:15 AM CDT Surgery [facility] Operating Room [address] [place] [address] Frankie Cardoso MD RADIAL BRONCHOSCOPY ENDOBRONCHIAL ULTRASOUND-transcronc hial biopsies of DAVIDA nodule and Lingula nodule 11/06/2024 7:27 AM CDT Anesthesia Event [facility] Operating Room [address] [place] [address] Ish Batista MD 11/06/2024 6:19 AM CDT - 11/06/2024 10:55 AM CDT Hospital Encounter [facility] Operating Room [address] [place] [address] Frankie Cardoso MD Lung mass Discharge Disposition: Discharge to home or self care 10/31/2024 Telephone [facility] Pulmonology [address] [facility] [address] [place] [phone] Frankie Cardoso MD 10/22/2024 Telephone [facility] Pulmonary at [address] [address] Nilsa Ayala LPN [employer] question 10/20/2024 11:00 AM CDT Office Visit [facility] Pulmonary at [address] [place] [address] Deborah Palafox NP Centrilobular emphysema (HCC) (Primary Dx); Pulmonary nodules; 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 factor (HCC) 10/11/2024 9:00 AM CDT - 10/11/2024 11:59 PM CDT Hospital Encounter [facility] [address] [place] [address] Pulmonary nodules Discharge Disposition: Discharge to home or self care 10/10/2024 Telephone [facility] [address] [place] [address] Taz Sultana from Last 3 Months Immunizations [...] 01/16/2018,11/08/2017,06/23/2009 Surgical History Surgery Date Site/Laterality Comments PA UNLISTED PROCEDURE BREAST 04/23/1977 - 04/22/1978 Right [...] on file Legal Sex Female 10:10 AM HOSPITAL CHIEF FINANCIAL OFFICER Gender Identity Not on file Sexual [...] both hands with positive rheumatoid factor (HCC) 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 ERYTHROCYTE SEDIMENTATION RATE Routine 12/16/2024 9:12 AM CDT 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 factor (HCC) [facility] current use 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 drug CBC WITH AUTO DIFFERENTIAL Routine 12/16/2024 9:12 AM CDT 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 factor (HCC) 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 COMPREHENSIVE METABOLIC PANEL Routine 12/16/2024 9:12 AM CDT 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 factor (HCC) [facility] current use 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 drug SURGICAL PATHOLOGY [...] ACID-FAST STAIN Routine 11/06/2024 8:00 AM CDT PA AN ELECTIVE ENDOTRACHEAL AIRWAY Routine 11/06/2024 7:38 AM CDT BRONCHOSCOPY ENDOBRONCHIAL ULTRASOUND 11/06/2024 7:27 AM CDT Lung mass ECG 12-LEAD STAT 11/06/2024 7:[address] CHEST WO CONTRAST Schedule Routine, Read Routine (OP Routine) 10/11/2024 9:14 AM CDT Pulmonary nodules HEPATITIS PANEL, ACUTE Routine 10:09 AM HOSPITAL CHIEF FINANCIAL OFFICER 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 factor (HCC) Fatigue, unspecified type penitentiary current use 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 drug from Last [...] BLOOD ORDERABLES Final Result Performing Organization Address City/[facility]/ZIP Co de Phone Number [facility] [address] [place] [address] * Erythrocyte sedimentation rate (12/16/2024 9:12 AM CDT) [facility] Erythrocyte sedimentation rate 29 < OR = 30 mm/h [facility] Blood 12/16/2024 9:12 AM CDT 12/16/2024 9:13 AM CDT Martina JONES LAB BLOOD ORDERABLES Final Result Performing Organization Address City/[facility] Co de Phone Number [facility] [address] [place] [address] * (ABNORMAL) CRP (acute phase) (12/16/2024 9:12 AM CDT) C-RP 47.4(H) <8.0 mg/L [facility] Blood 12/16/2024 9:12 AM CDT 12/16/2024 9:13 AM CDT us Martina JONES LAB BLOOD ORDERABLES Final Result [facility] [address] [place] [address] * (ABNORMAL) Comprehensive metabolic panel (12/16/2024 9:12 AM CDT) Pathologist [facility] Glucose 99 65 - 99 mg/dL [facility] [...] Martina JONES LAB BLOOD ORDERABLES Final Result [facility] [address] [place] [address] * Surgical pathology (11/06/2024 9:41 AM CDT) Tissue (Lung Biopsy) 11/06/2024 8:14 AM CDT Tissue specimen (specimen) (Lung Biopsy) 11/06/2024 8:14 AM CDT Narrative PATHOLOGY [facility] - 11/10/2024 3:06 PM CDT EPIC results best viewed via link to PDF [facility] Department of Pathology [address] [place] [address] Note to Patients: This report may contain [...] Final Report Patient Name: DARRION GUILLORY Address: [address] [place] [address] Gender: F : 1950 (Age: 74) Service: Surgery Location: [facility] Hospital #: [id number] Patient Type: [facility] Taken: 11/06/2024 Received: 11/06/2024 Accessioned: 11/06/2024 [...] determined by the Surgical Pathology Department at [facility] as part of an ongoing quality control supervisor program and in compliance with federally mandated [...] characteristics determined by the Surgical Pathology Department [facility]. It has not been cleared or approved by the U. S. Food and Drug Administration. Note for decalcified specimens: This assay has not been validated on decalcified tissues. Results should be interpreted with caution given the possibility of false negativity on decalcified specimens Frankie Cardoso MD LAB PATHOLOGY ORDERABLES Final R esult PATHOLOGY [facility] ([place]) [address] [place] [id number] * X-ray chest 1 view (Portable) (11/06/2024 [...] Austin Juárez M.D. MZ: MZ Report ID: [id number] Reading Location: [place] [address] Procedure Note Austin Juárez MD - 11/06/2024 [...] Austin Juárez M.D. MZ: MZ Report ID: [id number] Reading Location: [id number] Frankie Cardoso MD IM XR PROCEDURES Final [...] Wilmer Gold M.D. KH: KH Report ID: [id number] Reading Location: [id number] Procedure Note Wilmer Gold MD - 11/14/2024 [...] by Wilmer Georges.D. KH: LIZBETH Report ID: [id number] Reading Location: [id number] Frankie Cardoso MD IMG XR PROCEDURES Final Result * FL Fluoroscopy < 1 Hour (11/06/2024 8:49 AM CDT) Narrative [facility] - 11/06/2024 8:50 AM CDT The images from this study are not interpreted by Radiology. Please refer to the physician's procedure / OR operative note. Frankie Cardoso MD IMG FLUOROSCOPY PROCEDURES Final Result [facility] * Tissue aerobic and anaerobic culture and gram stain Tissue Lobe, left upper (11/06/2024 8:00 AM CDT) Direct Specimen Exam Stain: No polymorphonuclear leukocytes seen. No organisms seen. Comment:Testing performed by : [facility], [address] [place]., [address] Report Final Report: No growth [facility] ([facility]) Comment:Testing performed by : [facility], [address] [place]., [address] Tissue (Lobe, left upper) 11/06/2024 8:00 AM CDT 11/06/2024 1:[address] [facility] ([facility]) - 11/09/2024 9:50 AM CDT Left upper lobe nodule Testing performed by [facility] Microbiology Laboratory ([phone]) Specimens submitted from normally sterile body sites [...] SOFÍA Final Result [facility] ([facility]) [address] [facility] [place] [address] * Mycology (fungal) culture Tissue Lobe, left upper (11/06/2024 8:00 AM CDT) Report Final Report: No growth of fungus Comment:Testing performed by : [facility], [address] [place]., [address] Tissue (Lobe, left upper) 11/06/2024 8:00 AM CDT 11/06/2024 1:[address] [facility] [facility] ([facility]) - 12/04/2024 7:18 AM CDT Left upper lobe nodule Testing performed by [facility] Microbiology Laboratory ([phone]). Frankie Cardoso MD LAB MICROBIOLOGY - GENERAL ORDER SOFÍA Final Result Performing Organization Address [facility] Co de Phone Number [facility] ([facility]) [address] [facility] [place] [address] * Mycobacteriology (AFB) culture and acid-fast stain Tissue Lobe, left upper (11/06/2024 8:00 AM CDT) Direct Specimen Exam Stain: No Acid-fast bacilli seen Comment:Testing performed by : [facility], [address] [facility] [place]., [address] Report Final Report: No growth of acid-fast bacilli [facility] ([facility]) Comment:Testing performed by : [facility], [address] [facility] [place]., [address] Tissue (Lobe, left upper) 11/06/2024 8:00 AM CDT 11/06/2024 1:[address] [facility] ([facility]) - 01/05/2025 8:03 AM CDT Left upper lobe nodue Testing performed by [facility] Microbiology Laboratory ([phone]). us Frankie Cardoso MD LAB MICROBIOLOGY - GENERAL ORDER SOFÍA Final Result [facility] [place] [address] [facility] Department of Laboratories [place], [place] [id number] * PA AN ELECTIVE ENDOTRACHEAL AIRWAY (11/06/2024 7:38 AM CDT) Narrative Star Lindquist CRNA - 11/06/2024 7:38 AM CDT Star Lindquist CRNA 11/06/2024 7:38 AM Airway Patient location: OR Urgency: elective Indications for airway management: anesthesia Difficult airway: no Staff: Placed by: DOPE MIXER: Star Lindquist CRNA Emergent airway documentation: Risks [...] AM CDT) 11/06/2024 7:06 AM CDT Narrative [facility] - 11/06/2024 7:58 AM CDT Vent Rate: 90 bpm RR Interval: 666 msec PA Interval: 197 msec QRS Duration: 84 msec QT Interval: 341 msec QTC Interval: 388 msec P-R-T [place]: 50 - 5 - 53 degrees IMPRESSION: SINUS RHYTHM Baseline artifact No prior EKG for comparison Electronically Signed By: Dr Dakota Gómez us Ish Batista MD ECG ORDERABLES Final Result [facility] * CT chest without contrast (10/11/2024 9:14 [...] and lymph node dissection September 11. Clinical coa-ukwpp-eqxt lung cancer right lower lobe status post [...] Status post right upper lobectomy. Background of uukqyejo-hs-zgcaqq emphysematous changes. Bilateral lung base scarring. Interval [...] Christian Molina M.D. NS: NS Report ID: [id number] Reading Location: [id number] Procedure Note Christian Molina MD - 10/24/2024 [...] and lymph node dissection September 11. Clinical acu-wjerh-qrhh lung cancer right lower lobe status post [...] LUNGS: Status post right upper lobectomy. Background qfkpbjwixp-nd-binpsu emphysematous changes. Bilateral lung base scarring. Interval [...] Christian Molina M.D. NS: NS Report ID: [id number] Reading Location: [id number] us Frankie Cardoso MD IMG CT PROCEDURES Final Result * Hepatitis panel, acute (02/28/2021 10:09 AM HOSPITAL CHIEF FINANCIAL OFFICER) Hep A IgM NON-REACTI VE NON-REACT [facility] Comment: For additional information, please refer to http://[employer].YouBeQB/faq/EUA046 (This link is being provided for informational/ [...] a test for HCV RNA (test code 33944) is suggested. For additional information please refer to http://[employer]/faq/TMW79l7 (This link is being provided for informational/ educational purposes only.) Blood specimen (specimen) 02/28/2021 10:09 AM HOSPITAL CHIEF FINANCIAL OFFICER 02/28/2021 10:15 AM HOSPITAL CHIEF FINANCIAL OFFICER Martina JONES LAB MICROBIOLOGY - NERAL ORDERABLES Final Result [facility] [address] [place] [id number] from Last 3 Months or Most Recently Relevant to Health Maintenance Insurance [employer] [facility] Advance Directives For more information, please contact: [phone] * Full Code (Latest Code Status on File) Date Activated Date Inactivated Comments 09/12/2021 4:12 PM 09/14/2021 4:07 PM Care Teams Llama Farmer Relationship Specialty Start Date End Date Terry Bender DO [address] [place] [address] PCP - General Internal Medicine 12/07/23 Wilmer Taylor MD [address] [id number] Referring Physician Obstetrics and Gynecology 05/09/12 Jeffrey Koch MD [address] [place] [address] Consulting Physician Rheumatology 02/03/21 Luz Lewis MD [address] [place] [address] Referring Physician Surgery 12/14/21 Raleigh Jay MD PhD [address] [place] [address] Radiation Oncologist Radiation Oncology 12/12/22 Ranjan Cazares MD [address] [place] [address] Surgeon Thoracic Surgery 12/12/22 Martina Elizabeth PA [address] [place] [address] Physician Lead Ios Developer Rheumatology 10/20/24
--- NOTE | 2025-01-08 23:22 | P.HP_ITS ---
H&P: HPI History of Present Illness Date/Time: 01/08/25 23:22 Chief Complaint: Shortness of breath Narrative: This is a 74-year-old female patient who came to the emergency room due to shortness of breath. The patient typically wears oxygen at 4 L per nasal cannula at home however she has had increased working of breathing and exertion. Patient is more short of breath with exertion recently. EMS had been activated by her daughter when she was unable to get hold of the patient. The patient also has been having some sores on her mouth recently and was seen in the emergency room on 01/06/2025. Her labs came back positive for HSV detailed and she recently was started on valacyclovir. Her H&H was noted to be 9.8 and 31.4. This is only slightly lower than her baseline. Her hemoglobin is somewhere in that tens to 11. Her sodium level was 129 with her previous sodium level was 134. Her BNP is 3730. Her previous BNP was 1920. Troponin is negative. Urine has 2+ leukocyte esterase urine rbc's 21-50 and urine wbc's greater than 100. Moderate amount of squamous epithelial cells. Urine bacteria 1+. Viral serology is negative. Chest x-ray was read as the following Large airspace di sease left upper lobe. Atypical organisms should also be considered. 2. Recommend short interval follow-up to document resolution and exclude underlying lesion. The patient was started on a Zithromax 7 and Rocephin. She was given a nebulizer treatment. The patient is being admitted to observation status on the date of service of 01/08/2025. Review of Systems Constitutional: Constitutional: Reports as per HPI and Reports no additional constitutional complaints Eyes: Eyes: Reports as per HPI and Reports no additional eye complaints ENT: Reports no additional ear, nose, mouth, and throat complaints and Reports Normal hearing present Cardiovascular: Cardiovascular: Reports no additional cardiovascular complaints Respiratory: Respiratory: Reports as per HPI and Reports no additional respiratory complaints Gastrointestinal: Gastrointestinal: Reports as per HPI and Reports no additional gastrointestinal complaints Genitourinary: Genitourinary: Reports no additional female genitourinary complaints Musculoskeletal: Musculoskeletal: Reports no additional musculoskeletal complaints Integumentary/Breasts: Skin/Breast: Reports system reviewed and no additional complaints, except as docu Neurologic: Reports no additional neurologic complaints and Reports Normal hearing present Psychiatric: Psychiatric: Reports no additional psychiatric complaints and Reports as per HPI Hematologic/Lymphatic: Hematologic/Lymphatic: Reports no additional hematologic/lymphatic complaints Allergic/Immunologic: Allergic/Immunologic: Reports no additional allergic/immunologic complaints [facility] Past Medical History Medical History (Updated 01/09/25 @ 22:14 by Carina Pang APRN) Atrial fibrillation Herpes simplex type 2 infection BMI 22.0-22.9, adult BMI 23.0-23.9, adult 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 Grandparent Heart disease Hypertension Father Blood infection Social History Social History (Updated 01/09/25 @ 22:15 by Carina Pang APRN) Social History: She has 2 children . She is . 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 Code status: Full code Smoking packs per day: 1 Smoking cigarettes per day: 20.0 Years smoked: 40 Smoking pack-years: 40.00 Smoking status: Former smoker Tobacco type: cigarettes Second hand tobacco smoke exposure: Yes Smoking end date: 04/23/15 Alcohol intake: current Substance use: never Substance use type: does not use Do You Feel Safe in your Home?: Yes Lack of Transportation: No Lack of Food: Never True Current Housing: I Have Housing Concerned About Future Housing: No Difficulty Paying Gas/Electric Bills: No Difficulty Paying for Meds: No Currently Unemployed: No Education: High School Diploma/GED Difficulty w/ Childcare or Family Care: No Living arrangements: alone Occupation/Education: retired 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 Gender identity (if verbalized by the patient): Female Spiritual care concerns: No Meds Home Medications and Allergies Home Medications ?Medication ?Instructions ?Recorded ?Confirmed ?Type omega-3 fatty acids 1,000 mg 1,000 mg PO DAILY 06/17/2 0 01/09/25 History capsule (Fish Oil Concentrate) folic acid 1 mg tablet 1 mg PO DAILY #90 tabs 02/0201/09/25 Rx calcium 600 mg (as 1 tablet PO DAILY #90 tabs 1 01/09/25 Rx carbonate)-vitamin D3 20 mcg (800 unit) tablet losartan 50 mg tablet See Rx Instructions .Route 1 01/09/25 Rx .COMPLEX #90 tabs tiotropium 2.5 mcg-olodaterol 2.5 2 puff inhalation DA LEEANNE #4 grams 04/01/24 01/09/25 Rx mcg/actuation mist for inhalation albuterol sulfate 90 mcg/actuation 2 inh inhalation Q4 -6H PRN 05/09/24 01/09/25 Rx aerosol inhaler shortness of breath or wheez ing #6.7 grams diltiazem HCl 120 mg capsule,24 See Rx Instructions .R oute 09/18/24 01/09/25 Rx hr,extended release (Tiadylt ER) .COMPLEX #90 caps alendronate 70 mg tablet See Rx Instructions .Route 0 10/14/24 01/09/25 Rx .COMPLEX #12 tabs famotidine 20 mg tablet See Rx Instructions .Route 0 10/27/24 01/09/25 Rx .COMPLEX #90 tabs prednisone 10 mg tablet 20 mg PO DAILY 12/03/2412/22 History apixaban 5 mg tablet (Eliquis) See Rx Instructions .[place] 12/15/24 01/09/25 Rx .COMPLEX #60 tabs cephalexin 500 mg capsule 500 mg PO Q6H 7 days #28 cap s 01/06/25 01/09/25 Rx clotrimazole 10 mg mayra 10 mg mucous membrane QID 14 days 01/06/25 01/09/25 Rx #56 tabs valacyclovir 1 gram tablet 1,000 mg PO TID 10 days #30 tabs 01/06/25 01/09/25 Rx amlodipine 10 mg tablet 10 mg PO DAILY 01/09/2512/22 History Held on 01/09/25. Instructions: Patient no longer taking methotrexate sodium 2.5 mg tablet 12.5 mg PO WEEKLY 01/09/25 History Allergies Allergy/AdvReac Type Severity Reaction Status Date / Time omeprazole Allergy Unknown rash Verified 01/08/25 23:59 ciprofloxacin (From Cipro) AdvReac Intermediate Cramping Verified 01/08/25 23:59 of the Muscles levofloxacin AdvReac Intermediate Other Verified 01/08/25 23:59 amoxicillin AdvReac Mild Diarrhea Verified 01/08/25 23:59 ibuprofen AdvReac Unknown Verified 01/08/25 23:59 Vital Signs Vital Signs - 24 hr 01/08/25 17:01 01/08/25 22:29 01/08/25 22:30 Temperature 98.0 F Pulse Rate 75 73 74 Respiratory Rate 20 22 H Blood Pressure 120/72 125/60 Pulse Oximetry 100 99 Oxygen Delivery Nasal Cannula Oxygen Flow Rate 4 01/08/25 22:31 Temperature Pulse Rate Respiratory Rate Blood Pressure Pulse Oximetry 100 Oxygen Delivery Nasal Cannula Oxygen Flow Rate 4 Exam Const: General: cooperative, comfortable, no acute distress, well developed, awake, Physically active, ill appearing, tired appearing and average body habitus Nutritional Appearance: well nourished Orientation/consciousness: oriented to person, oriented to place, oriented to time and patient oriented x3 Limitations: no limitations HENMT: Head: normal to inspection, No palpable skull fracture present, normocephalic and atraumatic Ears: external ears normal Eyes: General: appearance normal, both eyes and all related structures Alignment and Position: alignment normal Periorbital: periorbital findings normal Eyelids: eyelids normal Conjunctivae: conjunctivae normal Neck: Neck: normal visual inspection, full ROM, no lymphadenopathy, trachea midline and supple Chest: Chest palpation & inspection: normal inspection of the chest Resp: Effort & Inspection: normal respiratory effort Auscultation: wheezes Percussion: percussion normal Cardio: Palpation: normal PMI Rate: regular rate Peripheral pulses: Peripheral pulses 2+ throughout GI: Inspection: normal to inspection Percussion: Yes normal to percussion Auscultation: normal bowel sounds Rectal Exam: deferred : General: Yes no CVA tenderness Back/Spine/Pelvis: Back: no CVA tenderness Cervical Spine: cervical ROM normal Thoracic/Lumbar Spine: thoracic and lumbar spine normal to inspection Pelvis: no pain with anterior-posterior compression Skin: General skin exam: normal color Lesions: no lesions Rashes: no rashes Trauma: no lacerations or abrasions Wounds: no wounds Hair: normal Nails: normal Neuro: General: oriented to person, oriented to place, oriented to time and patient oriented x3 Cranial nerves: Yes Equal, round and reactive pupils present Cognition (Neuro): normal cognition Speech: normal speech Motor exam (neuro): 5/5 motor strength present throughout Sensory Exam: normal sensation Extrem: General: normal to inspection Right upper extremity: normal to inspection and shoulder/upper arm Left upper extremity: normal to inspection and shoulder/upper arm Right lower extremity: normal to inspection Left lower extremity: normal to inspection Psych: Appearance: grossly normal Mental Status: mental status grossly normal Speech and movement: Normal speech and movement present Affect: normal affect Attitude: cooperative Thought process: Normal thought process present Thought content: Yes Normal thought content present Insight: Good insight present (Psych) Judgement: Good judgement present (Psych) H&P: Results Labs Labs: Short CBC 01/08/25 Range/Units 17:49 WBC 6.8 (4.5-10.0) K/mm3 Hgb 9.8 L (12.0-15.0) g/dL Hct 31.4 L (37.0-47.0) % Plt Count 277 (150-375) k/mm3 BMP 01/08/25 17:49 Sodium 129 L Potassium 4.4 Chloride 97 L Carbon Dioxide 27 BUN 24 H Creatinine 0.74 Glucose 124 H Calcium 9.0 Cardiac Enzymes 01/08/25 Range/Units 17:49 Troponin I < 0.012 (0.000-0.034) ng/mL Liver Function 01/08/25 Range/Units 17:49 Total Bilirubin 0.5 (0.2-1.3) mg/dL AST 24 (14-36) U/L ALT 17 (6-35) U/L Alkaline Phosphatase 60 (38-126) U/L Albumin 3.2 L (3.5-5.1) g/dL Urine 01/08/25 Range/Units 18:00 Urine Color Yellow (Yellow) Urine Appearance Cloudy H (Clear) Urine pH 5.5 (5.0-9.0) Ur Specific [place] 1.029 (1.001-1.035) Urine Protein 1+ H (Negative) mg/dL Urine Glucose (UA) Negative (Negative) mg/dL ECG Interpretation: SINUS RHYTHM WITH OCCASIONAL SUPRAVENTRICULAR PREMATURE COMPLEXES LOW QRS VOLTAGE IN PRECORDIAL LEADS [QRS DEFLECTION < 1.0 mV IN CHEST LEADS] MODERATE ST DEPRESSION [0.05+ mV ST DEPRESSION], CONSIDER LATERAL ISCHEMIA ABNORMAL ECG Compared to ECG 04/26/2024 09:58:25 Low QRS voltage now present ST (T wave) deviation now present Electronically Signed On 01-08-2025 18:01:53 CDT by Star Menezes M.D. Imaging Chest x-ray: Radiologist's impression: ITS Impressions Chest X-Ray 01/08/25 18:18 IMPRESSION: 1. Large airspace disease left upper lobe. Atypical organisms should also be considered. 2. Recommend short interval follow-up to document resolution and exclude underlying lesion. Assessment and Plan Assessment and plan (1) Pneumonia: Code(s): J18.9 - Pneumonia, unspecified organism Status: Acute Assessment and Plan: -chest x-ray per radiology read 1. Large airspace disease left upper lobe. Atypical organisms should also be considered. 2. Recommend short interval follow-up to document resolution and exclude underlying lesion. - new left lower lobe pulmonary nodule and underwent bronchoscopy with linear EBUS in sampling of the nodule as well as mediastinal adenopathy which was negative for malignancy. She last saw Dr. Cardoso on 11/13/2024. The biopsies revealed extensive necrosis which could be due to infection. The patient received antibiotics with Bactrim with no improvement in her shortness of breath. She was then placed on systemic steroids for possible organizing pneumonia versus rheumatoid nodules. -continue with Rocephin and azithromycin. -continue with duo nebulizers. -she is chronically on oxygen at 4 L per nasal cannula continuously. -daily CBC -sputum cultures are pending -may consider CTA pulmonary -blood cultures are pending. -continue with Mucinex. -continue with azithromycin Rocephin. Her QTC is 406. (2) Herpes simplex type 2 infection: Code(s): B00.9 - Herpesviral infection, unspecified Status: Acute Assessment and Plan: -continue with Valtrex. The patient was newly diagnosed with a PCR with her last ER visit. - (3) Essential hypertension: Code(s): I10 - Essential (primary) hypertension Status: Acute Assessment and Plan: -blood pressure 139/75. -continue with Cozaar and losartan. -p.r.n. hydralazine. -monitor daily CMP (4) Atrial fibrillation: Qualifiers: Atrial fibrillation type: paroxysmal Qualified Code(s): I48.0 - Paroxysmal atrial fibrillation Code(s): I48.91 - Unspecified atrial fibrillation Status: Acute Assessment and Plan: -EKG shows sinus rhythm with occasional supraventricular premature complexes. -rate controlled -continue with Cardizem -most likely is paroxysmal -continue with Eliquis. (5) Chronic obstructive pulmonary disease, unspecified: Qualifiers: COPD type: unspecified COPD Qualified Code(s): J44.9 - Chronic obstructive pulmonary disease, unspecified Code(s): J44.9 - Chronic obstructive pulmonary disease, unspecified Status: Acute Assessment and Plan: -dual nebs -continue home oxygen. Quality VTE Prophylaxis VTE prophylaxis: pharmacologic ordered
[2025-01-08 23:24] VITALS: O2SAT 99
[2025-01-08 23:57] VITALS: BP 139/75; PULSE 79; RESP 25; O2SAT 100
[2025-01-09] VITALS (15 sets, daily range): BP systolic 123–150; BP diastolic 59–81; PULSE 72–99; RESP 16–20; TEMP 35.9–37.2; O2SAT 92–98; BMI 21.2
[2025-01-09] MEDS: AZITHROMYCIN 500 MG TABLET PO (00:22)
[2025-01-09] MEDS: cefTRIAXone 1 GM in SODIUM CHLORIDE 0.9% IV 50 ML 100 ML IVPB ×2 (00:23→23:06)
[2025-01-09] MEDS: IPRATROPIUM 0.5 MG/ALBUTEROL SULFATE 2.5 MG AMPUL.NEB 3 ML INHALATION ×4 (07:20→20:10)
[2025-01-09] MEDS: guaiFENesin 600 MG/DEXTROMETHORPHAN 30 MG SR TAB 12 HR 1 TAB PO ×2 (09:01→20:34)
--- NOTE | 2025-01-09 16:26 | P.PNIM_ITS ---
Progress Note: A&P Assessment and Plan (1) Shortness of breath: Code(s): R06.02 - Shortness of breath Status: Acute Plan 74-year-old female with PMH COPD, prior tobacco abuse for multiple decades, chronic respiratory failure with hypoxia on 4 L continuous at home, multiple lung cancers, rheumatoid arthritis on methotrexate, osteoporosis, AFib on Eliquis, GERD, anxiety. 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 She then developed a new left lower lobe pulmonary nodule and underwent bronchoscopy with linear EBUS in sampling of the nodule as well as mediastinal adenopathy which was negative for malignancy. She last saw Dr. Cardoso on 11/13/2024. The biopsies revealed extensive necrosis which could be due to infection. The patient received antibiotics with Bactrim with no improvement in her shortness of breath. She was then placed on systemic steroids for possible organizing pneumonia versus rheumatoid nodules. She believes her rheumatoid arthritis the joints is stable, no pain or swelling or redness. Patient reports she has been short of breath for many years, of breath has wors ened over the past 2 weeks without fever, sputum production, new cough. She presented to [facility] on 01/08/2025 as she reports her oxygen tank stop working became more short of breath. She has been afebrile. No leukocytosis, she appears nontoxic. Was placed on prophylactic antibiotics with ceftriaxone and azithromycin. At this time she continues to saturate 93% on her usual 4 L. she denies ever being prescribed a breathing machine at home. Suspect this is progression of her underlying complex pulmonary disease as she has obstructive disease, restrictive disease, diffusion deficit and has a very poor capacity at baseline. 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 She has right lower lobe dry crackles, diminished lung sounds and coarse breath sounds on expiration. Continue AUTISTIC TEACHER Anoro Ellipta 62.5-25 mcg 1 puff daily. Continue AUTISTIC TEACHER prophylactic Valtrex. Will obtain a CTA chest, the left upper lobe o pacities on chest x-ray which I reviewed are consistent with her previous area of possible SPRT in the left upper lobe. We will be able to compare with previous CT. We will consult pulmonology to help with further evaluation and management in this patient with complex pulmonary disease. Check quad viral screen, full respiratory viral pathogen panel, QuantiFERON gold, pneumococcal antigen, Legionella antigen, mycoplasma PCR. Patient wishes to be full code. Greater than 55 minutes spent on evaluation, patient Education, coordination of care and treatment. Subjective Date/time seen: 01/09/25 16:26 Interval history: No major acute overnight events. Patient her short of breath at rest, she reports she has been short of breath for many years but the past 2 weeks it has been worse. She has not been exposed to anyone sick, she does not smoke anymore, she does not use illicit drugs, she does not drink alcohol. 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 There differentials include organizing pneumonia versus rheumatoid nodules. She has received antibiotics to no effect. She is now on systemic corticosteroids but she is not think they are working either. She denies a cough, fever, chest pain, sputum production. Review of Systems Review of Systems: All systems reviewed & are unremarkable except as noted in HPI and below (Subjective) Exam Const: General: comfortable and no acute distress HENMT: Mouth: Yes moist mucous membranes Eyes: Pupils: Equal, round and reactive pupils present Neck: Neck: supple Resp: Effort & Inspection: normal respiratory effort Other: Decreased lung sounds diffusely, right lower lung crackles, coarse breath sounds on expiration Cardio: Rate: regular rate Rhythm: regular rhythm GI: Inspection: non-distended GI Palp: Yes Soft to palpation Neuro: Motor exam (neuro): 5/5 motor strength present throughout Extrem: General: no edema Objective Data Vital Signs Vital Signs: Vital Signs - 24 hr 01/08/25 17:01 01/08/25 22:29 01/08/25 22:30 Temperature 98.0 F Pulse Rate 75 73 74 Respiratory Rate 20 22 H Blood Pressure 120/72 125/60 Pulse Oximetry 100 99 Oxygen Delivery Nasal Cannula Oxygen Flow Rate 4 01/08/25 22:31 01/08/25 23:24 01/08/25 23:57 Temperature Pulse Rate 79 Respiratory Rate 25 H Blood Pressure 139/75 Pulse Oximetry 100 99 100 Oxygen Delivery Nasal Cannula Nasal Cannula Oxygen Flow Rate 4 4 01/09/25 00:27 01/09/25 02:10 01/09/25 02:30 Temperature Pulse Rate 96 79 88 Respiratory Rate 20 20 20 Blood Pressure 127/74 Pulse Oximetry 98 Oxygen Delivery Oxygen Flow Rate 01/09/25 03:43 01/09/25 06:00 01/09/25 07:22 Temperature 97.8 F 99.0 F Pulse Rate 91 86 72 Respiratory Rate 20 20 20 Blood Pressure 123/59 L 150/75 H Pulse Oximetry 94 96 Oxygen Delivery Oxygen Flow Rate 01/09/25 07:22 01/09/25 07:30 01/09/25 13:45 Temperature Pulse Rate 76 85 77 Respiratory Rate 20 20 20 Blood Pressure Pulse Oximetry 98 97 Oxygen Delivery Nasal Cannula Nasal Cannula Oxygen Flow Rate 4 4 01/09/25 13:45 01/09/25 13:48 01/09/25 13:56 Temperature 96.7 F L Pulse Rate 77 76 86 Respiratory Rate 20 16 20 Blood Pressure 146/79 H Pulse Oximetry 97 Oxygen Delivery Oxygen Flow Rate Intake/Output Intake/Output: Intake & Output 01/06/25 01/07/25 01/08/25 01/09/25 23:59 23:59 23:59 23:59 Intake Total 480 Output Total 150 Balance 330 Meds/Results Medications: Active Medications Generic Name Dose Route Start Last Admin Trade Name Freq PRN Reason Stop Dose Admin Albuterol/Ipratropium 3 ml 01/09/25 02:00 01/09/25 13:45 Ipratropium 0.5 Mg/Albuterol Sulfate 2.5 Mg Ampul.Neb 3 Ml INHALATION 3 ml Q6HRT [facility] Administration Apixaban 5 mg 01/09/25 21:00 Apixaban 5 Mg Tablet BY MOUTH Q12HR [facility] Calcium Carbonate 500 mg 01/10/25 09:00 Calcium/Vitamin D 500 Mg/5 Mcg (200 I.U.) Tablet PO QAM [facility] Clotrimazole 10 mg 01/09/25 17:00 Clotrimazole 10 Mg Troc MUCOUS MEM 01/20/25 23:59 QID [facility] Diltiazem HCl 120 mg 01/10/25 09:00 Diltiazem Hcl Cd 120 Mg Cap.24hr BY MOUTH DAILY [facility] Famotidine 20 mg 01/10/25 09:00 Famotidine 20 Mg Tablet BY MOUTH DAILY [facility] Folic Acid 1 mg 01/10/25 09:00 Folic Acid 1 Mg Tablet PO DAILY [facility] Guaifenesin/Dextromethorphan 1 tab 01/09/25 09:00 01/09/25 09:01 Guaifenesin 600 Mg/Dextromethorphan 30 Mg Sr Tab 12 Hr PO 1 tab Q12HR CHENG Administration Hydralazine HCl 10 mg 01/09/25 00:55 Hydralazine Hcl 20 Mg/Ml Vial IV PUSH Q8H PRN Blood Pressure - High Ceftriaxone Sodium 1 gm/ 50 mls @ 100 mls/hr 01/10/25 00:00 Sodium Chloride IVPB Q24H CHENG Azithromycin 500 mg/ Sodium 250 mls @ 250 mls/hr 01/10/25 00:00 Chloride IVPB 01/14/25 00:59 Q24H CHENG Losartan Potassium 25 mg 01/10/25 09:00 Losartan Potassium 25 Mg Tablet PO QAM CHENG Miscellaneous Information 1 each 01/09/25 00:01 Based On Patient's Crcl The Valacyclovir Should Be Renally Dosed To Q12hr Over Tid. Okay T XX 02/08/25 00:00 CLARIFY CHENG Prednisone 20 mg 01/10/25 09:00 Prednisone 20 Mg Tablet PO DAILY CHENG Umeclidinium/Vilanterol 1 puff 01/10/25 08:00 Umeclidinium/Vilanterol 62.5-25 Mcg Ellipta INHALATION DAILYRT [facility] Valacyclovir HCl 1,000 mg 01/09/25 17:00 Valacyclovir Hcl 500 Mg Tablet PO TID [facility] Radiology Results: ITS Impressions Chest X-Ray 01/08/25 18:18 IMPRESSION: 1. Large airspace disease left upper lobe. Atypical organisms should also be considered. 2. Recommend short interval follow-up to document resolution and exclude underlying lesion. Labs Labs: Laboratory Results - last 24 hr 01/08/25 01/08/25 17:49 18:00 WBC 6.8 RBC 3.26 L Hgb 9.8 L Hct 31.4 L MCV 96.3 MCH 30.1 MCHC 31.2 L RDW 19.4 H Plt Count 277 MPV 8.7 Immature Gran % (Auto) 2.8 H Neut % (Auto) 87.8 H Lymph % (Auto) 4.7 L [place] % (Auto) 4.4 Eos % (Auto) 0.0 Baso % (Auto) 0.3 Lymph # (Auto) 0.32 L [place] # (Auto) 0.3 Eos # (Auto) 0.0 Baso # (Auto) 0.0 Abs Immat Gran (auto) 0.19 H Absolute Neuts (auto) 6.0 Absolute Nucleated RBC 0.000 Nucleated RBC % 0.0 PT 18.6 H INR 1.6 APTT 31.0 Sodium 129 L Potassium 4.4 Chloride 97 L Carbon Dioxide 27 Anion Gap 5 BUN 24 H Creatinine 0.74 Estim Creat Clear Calc 48 Estimated GFR > 60 Glucose 124 H Calcium 9.0 Magnesium 1.8 Total Bilirubin 0.5 AST 24 ALT 17 Alkaline Phosphatase 60 Troponin I < 0.012 NT-Pro-B Natriuret Pep 3730 H Total Protein 6.2 L Albumin 3.2 L Urine Color Yellow Urine Appearance Cloudy H Urine pH 5.5 Ur Specific [place] 1.029 Urine Protein 1+ H Urine Glucose (UA) Negative Urine Ketones Trace H Ur Blood (Man) Negative Urine Nitrate Negative Urine Bilirubin Negative Urine Urobilinogen 1.0 Add Ur Microanalysis Reviewed Leukocyte Esterase Rfl 2+ H Urine RBC 21-50 H Urine WBC >100 H Ur Squamous Epith Cells Moderate Urine Bacteria 1+ H Urine Casts 3-5 Hyaline Casts Present Urine Mucus Present
[2025-01-09] MEDS: CLOTRIMAZOLE 10 MG TROC MUCOUS MEM ×2 (17:04→23:06)
[2025-01-09] MEDS: ACETAMINOPHEN 325 MG TABLET 650 MG PO (17:38)
[2025-01-09 17:46] LABS: Influenza A QL RT-PCR Negative (Negative); Influenza B QL RT-PCR Negative (Negative); RSV RNA, RT-PCR Negative (Negative); SARS-CoV-2 RNA PCR Negative (Negative)
[2025-01-09] MEDS: APIXABAN 5 MG TABLET BY MOUTH (20:34)
[2025-01-09] MEDS: AZITHROMYCIN IV 500 MG in SODIUM CHLORIDE 0.9% IV 250 ML IVPB (23:14)
[2025-01-10] VITALS (50 sets, daily range): BP systolic 77–149; BP diastolic 36–90; PULSE 68–135; RESP 0–34; TEMP 32.3–37.2; O2SAT 92–100
[2025-01-10] MEDS: IPRATROPIUM 0.5 MG/ALBUTEROL SULFATE 2.5 MG AMPUL.NEB 3 ML INHALATION ×2 (04:05→07:18)
[2025-01-10 06:20] LABS: Hematocrit 29.6 % (37.0-47.0); Hemoglobin 8.9 g/dL (12.0-15.0); Immature Granulocyte Percent A 6.1 % (0-0.5); Lymphocytes Absolute Auto 0.59 K/mm3 (0.9-3.2); Mean Corpuscular HGB Conc 30.1 g/dl (32-36); Mean Corpuscular Hemoglobin 29.9 pg (26-34); Mean Corpuscular Volume 99.3 fl (80-100); Nucleated Red Blood Cells Absolute Auto 0.000 K/mm3 (0.0-0.012); Nucleated Red Blood Cells Perc 0.0 % (0.0-0.2); Platelet Count Result 244 k/mm3 (150-375); Red Blood Count 2.98 M/mm3 (4.2-5.4); White Blood Count 9.0 K/mm3 (4.5-10.0)
[2025-01-10 06:46] LABS: Alanine Aminotransferase 16 U/L (6-35); Albumin Level 2.8 g/dL (3.5-5.1); Alkaline Phosphatase 61 U/L (38-126); Anion Gap 7 mmol/L (4-12); Aspartate Amino Transferase 26 U/L (14-36); Bilirubin,Total 0.3 mg/dL (0.2-1.3); Blood Urea Nitrogen 22 mg/dL (7-17); Calcium 8.3 mg/dL (8.4-10.2); Carbon Dioxide 26 mmol/L (22-30); Chloride 100 mmol/L (98-107); Estimated CRCL calculation 54 ml/min; Estimated Glomerular Filt Rate > 60; Glucose 118 mg/dL (65-110); Magnesium 1.8 mg/dL (1.6-2.3); Potassium 4.5 mmol/L (3.4-5.0); Sodium 133 mmol/L (137-145); Total Protein 5.5 g/dL (6.3-8.2)
[2025-01-10 07:04] LABS: Procalcitonin 0.2 ng/mL
[2025-01-10] MEDS: UMECLIDINIUM/VILANTEROL 62.5-25 MCG ELLIPTA 1 PUFF INHALATION (07:18)
[2025-01-10] MEDS: CALCIUM/VITAMIN D 500 MG/5 MCG (200 I.U.) TABLET PO (09:21)
[2025-01-10] MEDS: FAMOTIDINE 20 MG TABLET BY MOUTH (09:21)
[2025-01-10] MEDS: METHOTREXATE 2.5 MG TAB (*CHEMO) 12.5 MG PO (09:21)
[2025-01-10] MEDS: CLOTRIMAZOLE 10 MG TROC MUCOUS MEM ×3 (09:22→23:05)
[2025-01-10] MEDS: LOSARTAN POTASSIUM 25 MG TABLET PO (09:22)
[2025-01-10] MEDS: dilTIAZem HCL CD 120 MG CAP.24HR BY MOUTH (09:22)
[2025-01-10] MEDS: FOLIC ACID 1 MG TABLET PO (09:22)
[2025-01-10] MEDS: guaiFENesin 600 MG/DEXTROMETHORPHAN 30 MG SR TAB 12 HR 1 TAB PO ×2 (09:22→20:23)
[2025-01-10] MEDS: APIXABAN 5 MG TABLET BY MOUTH ×2 (09:22→20:23)
[2025-01-10] MEDS: MAGNESIUM SULF 4 GM/WATER100ML 4 GM/100 ML BAG IVPB (10:21)
[2025-01-10 10:36] LABS: Alveolar/Arterial O2 Gradient 210.5 mmHg; Fractional Inspired Oxygen 44 %; HCO3 ABG 25.6 mEq/l (22.0-26.0); Oxygen Saturation ABG 92.2 % (95.0-100.0); PCO2 ABG 37.7 mmHg (35.0-45.0); PO2 ABG 60.2 mmHg (80.0-100.0); PO2 FiO2 Ratio Arterial Blood 1.37 %
[2025-01-10 10:43] LABS: Modified Allen's Test Pass; Site Drawn RIGHT RADIAL
[2025-01-10 10:47] LABS: Liters per Minute 6.0 LPM
[2025-01-10] MEDS: CEFEPIME 2 GM in SODIUM CHLORIDE 0.9% IV 50 ML 100 ML IVPB ×2 (11:34→20:31)
[2025-01-10 12:28] LABS: MRSA (PCR) NOT DETECTED (NOT DETECTE)
--- NOTE | 2025-01-10 12:44 | WPDCNINT ---
Assessment and Plan Assessment and plan (1) Acute and chronic respiratory failure: Code(s): J96.20 - Acute and chronic respiratory failure, unspecified whether with hypoxia or hypercapnia Status: Acute Assessment and Plan: Patient has a multifactorial acute on chronic respiratory failure. At baseline patient is on 4 L nasal cannula. He presented with worsening hypoxia She has history of lung cancer status post lobectomy in right upper lobe and then recurrent lung cancer which was treated with radiotherapy She also has moderately severe COPD/emphysema CT scan shows multifocal lung disease left worse than right pneumonia although she has normal WBC and low procalcitonin level She has been placed on CPAP and is doing slightly better she is able to feed full sentences. I have wean down FiO2 to 40% she is on CPAP of 10 closely monitor in ICU. May need intubation and mechanical ventilation if she deteriorates. Her antibiotic coverage has been expanded to broad-spectrum in the form of vancomycin cefepime and azithromycin She does have some wheezing I will continue with Solu-Medrol Continue bronchodilator Blood sputum cultures have been sent and are pending pneumococcus and Legionella antigen is pending ABG reviewed She has elevated BNP and small pleural effusions. I will also give her 1 dose of Lasix. (2) Chronic obstructive pulmonary disease, unspecified: Qualifiers: COPD type: unspecified COPD Qualified Code(s): J44.9 - Chronic obstructive pulmonary disease, unspecified Code(s): J44.9 - Chronic obstructive pulmonary disease, unspecified Status: Acute (3) Pneumonia: Code(s): J18.9 - Pneumonia, unspecified organism Status: Acute (4) Squamous cell carcinoma of lung: Qualifiers: Laterality: right Qualified Code(s): C34.91 - Malignant neoplasm of unspecified part of right bronchus or lung Code(s): C34.90 - Malignant neoplasm of unspecified part of unspecified bronchus or lung Status: Acute (5) Essential hypertension: Code(s): I10 - Essential (primary) hypertension Status: Acute Assessment and Plan: Continue diltiazem and losartan. P.r.n. labetalol (6) Atrial fibrillation: Qualifiers: Atrial fibrillation type: paroxysmal Qualified Code(s): I48.0 - Paroxysmal atrial fibrillation Code(s): I48.91 - Unspecified atrial fibrillation Status: Acute Assessment and Plan: Continue p.o. diltiazem and Eliquis May need IV infusion if unable to take pills (7) Herpes simplex type 2 infection: Code(s): B00.9 - Herpesviral infection, unspecified Status: Acute Assessment and Plan: Continue well acyclovir Plan DVT prophylaxis -she is on Eliquis Stress ulcer prophylaxis -Pepcid Nutrition -NPO Code Status -patient is okay with intubation but does not want any CPR in the event of cardiac arrest. This was confirmed with the patient in presence of her daughter. I updated patient and her daughter that will continue with CPAP at this time and if she does not improve or deteriorate further she may need intubation and invasive mechanical ventilation. Both verbalized understanding Case discussed with hospitalist Total Critical Care Time - 30 minutes Due to a high probability of clinically significant, life threatening deterioration, the patient required my highest level of preparedness to intervene emergently and I personally spent this critical care time directly and personally managing the patient. This critical care time included obtaining a history; examining the patient; pulse oximetry; ordering and review of studies; arranging urgent treatment with development of a management plan; evaluation of patient's response to treatment; frequent reassessment; and discussions with other providers. It was exclusive of separately billable procedures and treating other patients and teaching time. Please see Assessment and Plan section and the rest of the note for further information on patient assessment and treatment Medical Device Sales Consultant Consult Note Consult date: 01/10/25 Reason for consult: Respiratory failure HPI: Loida Guillory is a 74 year old female with past medical history of moderately severe COPD, right upper lobe lung cancer status post lobectomy then additional right and left lung cancer managed by SBRT and she is followed by corporate executive at [facility]. She also has rheumatoid arthritis on methotrexate, hypertension, AFib on anticoagulation with Eliquis presented to ER yesterday with chief complaint of shortness of breath. She stated to the admitting physician that she has been gradually getting more short of breath especially with exertion over last few months she wears oxygen at 4 L at home. She was diagnosed with pneumonia and admitted to IMU and started on antibiotics. Her hypoxia and respiratory distress worsened today and patient was transferred to ICU. She was placed on CPAP of 10. When I saw the patient her CPAP was disconnected with oxygen and she was feeling short of breath. Her machine also ordered turned off as she to cover mask. We quickly fixed her CPAP oxygen supply and restarted CPAP and changed to the hospital machine. Her oxygen saturation improved along with her respiratory distress and tachypnea. She was able to speak sentences after that. She told me that her main issue is shortness of breath. She denies any significant cough. She denies any fever chest pain abdominal pain nausea vomiting diarrhea at this time. She does feel weak and tired. All other systems were reviewed and were negative Review of Systems Review of Systems: All systems reviewed & are unremarkable except as noted in HPI and below (HPI) [facility] Past Medical History Medical History Atrial fibrillation Herpes simplex type 2 infection BMI 22.0-22.9, adult BMI 23.0-23.9, adult 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 Grandparent Heart disease Hypertension Father Blood infection Social History Social History Social History: She has 2 children . She is . 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 Code status: Full code Smoking packs per day: 1 Smoking cigarettes per day: 20.0 Years smoked: 40 Smoking pack-years: 40.00 Smoking status: Former smoker Tobacco type: cigarettes Second hand tobacco smoke exposure: Yes Smoking end date: 04/23/15 Alcohol intake: current Substance use: never Substance use type: does not use Do You Feel Safe in your Home?: Yes Lack of Transportation: No Lack of Food: Never True Current Housing: I Have Housing Concerned About Future Housing: No Difficulty Paying Gas/Electric Bills: No Difficulty Paying for Meds: No Currently Unemployed: No Education: High School Diploma/GED Difficulty w/ Childcare or Family Care: No Living arrangements: alone Occupation/Education: retired 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 Gender identity (if verbalized by the patient): Female Spiritual care concerns: No Meds Home Medications and Allergies Home Medications ?Medication ?Instructions ?Recorded ?Confirmed ?Type omega-3 fatty acids 1,000 mg 1,000 mg PO DAILY 06/17/19 01/09/25 History capsule (Fish Oil Concentrate) folic acid 1 mg tablet 1 mg PO DAILY #90 tabs 02/02/21 01/09/25 Rx calcium 600 mg (as 1 tablet PO DAILY #90 tabs 02/06/24 01/09/25 Rx carbonate)-vitamin D3 20 mcg (800 unit) tablet losartan 50 mg tablet See Rx Instructions .Route 02/06/24 01/09/25 Rx .COMPLEX #90 tabs tiotropium 2.5 mcg-olodaterol 2.5 2 puff inhalation DAILY #4 grams 04/01/24 01/09/25 Rx mcg/actuation mist for inhalation albuterol sulfate 90 mcg/actuation 2 inh inhalation Q4-6H PRN 05/09/24 01/09/25 Rx aerosol inhaler shortness of breath or wheezing #6.7 grams diltiazem HCl 120 mg capsule,24 See Rx Instructions .Route 09/18/24 01/09/25 Rx hr,extended release (Tiadylt ER) .COMPLEX #90 caps alendronate 70 mg tablet See Rx Instructions .Route 10/14/24 01/09/25 Rx .COMPLEX #12 tabs famotidine 20 mg tablet See Rx Instructions .Route 10/27/24 01/09/25 Rx .COMPLEX #90 tabs prednisone 10 mg tablet 20 mg PO DAILY 12/03/24 01/09/25 History apixaban 5 mg tablet (Eliquis) See Rx Instructions .Route 12/15/24 01/09/25 Rx .COMPLEX #60 tabs cephalexin 500 mg capsule 500 mg PO Q6H 7 days #28 caps 01/06/25 01/09/25 Rx clotrimazole 10 mg mayra 10 mg mucous membrane QID 14 days 01/06/25 01/09/25 Rx #56 tabs valacyclovir 1 gram tablet 1,000 mg PO TID 10 days #30 tabs 01/06/25 01/09/25 Rx amlodipine 10 mg tablet 10 mg PO DAILY 01/09/25 01/09/25 History Held on 01/09/25. Instructions: Patient no longer taking methotrexate sodium 2.5 mg tablet 12.5 mg PO WEEKLY 01/09/25 01/09/25 History Allergies Allergy/AdvReac Type Severity Reaction Status Date / Time omeprazole Allergy Unknown rash Verified 01/08/25 23:59 ciprofloxacin (From Cipro) AdvReac Intermediate Cramping Verified 01/08/25 23:59 of the Muscles levofloxacin AdvReac Intermediate Other Verified 01/08/25 23:59 amoxicillin AdvReac Mild Diarrhea Verified 01/08/25 23:59 ibuprofen AdvReac Unknown Verified 01/08/25 23:59 Vital Signs Vital Signs - 24 hr 01/09/25 13:45 01/09/25 13:45 01/09/25 13:48 Temperature 35.9 C L Pulse Rate 77 77 76 Respiratory Rate 20 20 16 Blood Pressure 146/79 H Pulse Oximetry 97 97 Oxygen Delivery Nasal Cannula Oxygen Flow Rate 4 01/09/25 13:56 01/09/25 20:10 01/09/25 20:11 Temperature Pulse Rate 86 97 Respiratory Rate 20 20 Blood Pressure Pulse Oximetry 92 Oxygen Delivery Nasal Cannula Oxygen Flow Rate 4 01/09/25 20:18 01/09/25 20:52 01/10/25 04:05 Temperature 36.5 C Pulse Rate 99 90 108 H Respiratory Rate 20 20 16 Blood Pressure 135/81 Pulse Oximetry 94 Oxygen Delivery Oxygen Flow Rate 01/10/25 04:10 01/10/25 05:33 01/10/25 07:18 Temperature 36.7 C Pulse Rate 112 H 114 H 105 H Respiratory Rate 16 24 H 16 Blood Pressure 119/56 L Pulse Oximetry 99 Oxygen Delivery Oxygen Flow Rate 01/10/25 07:18 01/10/25 07:24 01/10/25 08:00 Temperature Pulse Rate 107 H Respiratory Rate 16 Blood Pressure Pulse Oximetry 92 93 Oxygen Delivery Nasal Cannula Nasal Cannula Oxygen Flow Rate 4 4 01/10/25 10:20 Temperature Pulse Rate 104 H Respiratory Rate 18 Blood Pressure Pulse Oximetry Oxygen Delivery Oxygen Flow Rate Exam Narrative: General: Pt is alert awake and in mild respiratory distress which resolved after placement of BiPAP Lungs/Chest: Trachea central decreased air entry bilaterally, she has some wheezing on the left side. Cardiac: Irregular rate and rhythm. Normal S1 S2. No murmurs Circulation: Pedal pulses are intact and symmetrical. Abdomen: Normal bowel sounds.. Soft. NT. ND. Extremities: No clubbing, cyanosis or edema. Warm : Pope in place Neurologic: Follows commands. Moves all 4 extremities PERRL AO x3 Skin: Bruising on legs Results Labs 01/10/25 05:50 01/10/25 05:50 Labs: Short CBC 01/10/25 Range/Units 05:50 WBC 9.0 (4.5-10.0) K/mm3 Hgb 8.9 L (12.0-15.0) g/dL Hct 29.6 L (37.0-47.0) % Plt Count 244 (150-375) k/mm3 BMP 01/10/25 05:50 Sodium 133 L Potassium 4.5 Chloride 100 Carbon Dioxide 26 BUN 22 H Creatinine 0.65 L Glucose 118 H Calcium 8.3 L Liver Function 01/10/25 Range/Units 05:50 Total Bilirubin 0.3 (0.2-1.3) mg/dL AST 26 (14-36) U/L ALT 16 (6-35) U/L Alkaline Phosphatase 61 (38-126) U/L Albumin 2.8 L (3.5-5.1) g/dL Quality VTE Prophylaxis VTE prophylaxis: pharmacologic ordered Hospitalist MIPS Advance Care Plan I have confirmed that the patient's Advanced Care Plan is present, code status is documented, or surrogate decision maker is listed in patient medical record.: Yes Medication Reconciliation I have utilized all available resources to obtain, update and review the patients current medications (includes all prescriptions, OTC, herbals, cannabis, and nutritional supplements).: Yes
[2025-01-10] MEDS: VANCOMYCIN 1,500 MG/NS 500 ML 1,500 MG/500 ML BAG 250 MG IVPB (13:29)
[2025-01-10] MEDS: FUROSEMIDE INJ 40 MG/4 ML VIAL IV PUSH (13:30)
[2025-01-10] MEDS: CENTRAL LINE FLUSH 10 ML IV PUSH ×2 (13:30→22:00)
--- NOTE | 2025-01-10 14:53 | PM.IMPN ---
Progress Note: A&P Assessment and Plan (1) Atrial fibrillation: Qualifiers: Atrial fibrillation type: paroxysmal Qualified Code(s): I48.0 - Paroxysmal atrial fibrillation Code(s): I48.91 - Unspecified atrial fibrillation Status: Acute (2) Squamous cell carcinoma of lung: Qualifiers: Laterality: right Qualified Code(s): C34.91 - Malignant neoplasm of unspecified part of right bronchus or lung Code(s): C34.90 - Malignant neoplasm of unspecified part of unspecified bronchus or lung Status: Acute (3) ILD (interstitial lung disease): Code(s): J84.9 - Interstitial pulmonary disease, unspecified Status: Acute (4) Emphysema lung: Code(s): J43.9 - Emphysema, unspecified Status: Acute (5) Pneumonia: Code(s): J18.9 - Pneumonia, unspecified organism Status: Acute (6) Acute and chronic respiratory failure: Code(s): J96.20 - Acute and chronic respiratory failure, unspecified whether with hypoxia or hypercapnia Status: Acute (7) Lung nodules: Code(s): R91.8 - Other nonspecific abnormal finding of lung field Status: Acute Plan 74-year-old female who follows with Dr. Cardoso engineer third assistant. She has a history of prior tobacco abuse for many decades, COPD, restrictive lung disease, severe diffusion impairment. Patient wears 4 L of oxygen around the clock. She lives at home alone. She reports she has had shortness of breath for multiple years. A few weeks prior to admission she had increasing shortness of breath. On the day of admission she believes her oxygen tank stop working 01/08/2025. 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 She also had neoplasms of left upper lobe and right lower lobe status post empiric SBRT. She was then found to have new nodule in the left lower lobe. This was biopsied on 11/06/2024 which demonstrated acute inflammation and underlying necrosis. Her engineer third assistant suspected it could be infectious so he placed her on Bactrim for 3 weeks but her symptoms did not improve. She does have a history of rheumatoid arthritis currently on methotrexate so she was placed on prednisone 20 mg p.o. q.day to try to treat this. This did not help either. On admission she had a chest x-ray which was suspicious for pneumonia however she was saturating well on her usual 4 L. she was admitted for pneumonia and shortness of breath. On 01/10/2025 she has an acute decompensation. She has more wheezing, respiratory distress. Was given a 1 hour continuous nebulizer treatment, Solu-Medrol high-dose IV push. She felt better, however a few minutes later began to decompensate again and required 8-9 L of nasal cannula to maintain a saturation of 90%. She felt worse again. The patient was transferred to the ICU and intensive is notified. Changed her antibiotics from ceftriaxone and azithromycin to azithromycin, cefepime, vancomycin. Quad viral screen negative. Checking full viral respiratory pathogen panel. Checking QuantiFERON gold, pneumococcal antigen, Legionella antigen, mycoplasma PCR. Start Accu-Cheks with insulin sliding scale. Start famotidine 20 mg IV b.i.d.. Scheduled nebulizers q.4 hours. Continue Solu-Medrol. Continue Eliquis for her history of AFib. In ABG demonstrates a pH of 7.4 and pCO2 37.7. MRSA in the nares are negative. 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 Continue valacyclovir. Pulmonology consulted for Sunday01/12/2025. At this time, intensive care consulted. The patient defers decisions to her daughter. I spoke with the daughter, they are very hesitant to start positive-pressure ventilation because they have a family member who had BiPAP in a subsequent pneumothorax and ended up on long-term ventilator. I discussed the risks versus benefits and eventually they are agreeable to using CPAP. Patient was placed on CPAP with pressure support 10 and has improved markedly. She is also at 35% FiO2 and now saturating adequately. At this time we will continue with CPAP. The daughter knows that BiPAP could be more beneficial patient were to decompensate again she appears to be amenable to that now. We also discussed at length the patient's code status, reviewed prior documentation, I reviewed images with her. All of her questions and concerns were answered to satisfaction. She appeared grateful. She received Lasix x1, she does have small bilateral pleural effusion left greater than right. CTA demonstrates multifocal lung disease consistent with pneumonia and what appears to be a component of metastatic disease a granulomatous disease. She has since been changed to modified code, no CPR. Intensive care. Critical status, guarded prognosis. Greater than 55 minutes spent on evaluation, discussion with the family, care coordination with nursing team and card clothier. Subjective Date/time seen: 01/10/25 14:53 Interval history: As I entered the patient's room he was in respiratory distress, daughter was present. Nurse tells me this just started and she has otherwise been okay. Patient denies a new cough or sputum production, denies fever or chest pain. She reports she has wheezing and it is very hard to breathe. She is very anxious due to this. Review of Systems Review of Systems: All systems reviewed & are unremarkable except as noted in HPI and below (Subjective) Exam Const: Other: Respiratory distress, A&O x3 Eyes: Pupils: Equal, round and reactive pupils present Neck: Neck: supple Resp: Other: Diminished lung sounds, coarse expiratory wheeze, right lower lung field rhonchi and crackles Cardio: Rate: tachycardic Rhythm: regular rhythm GI: Inspection: non-distended GI Palp: Yes Soft to palpation and No Tenderness to palpation present (GI) : Bimanual exam- vagina & uterus: bladder normal to palpation Neuro: Motor exam (neuro): 5/5 motor strength present throughout Extrem: General: no edema Objective Data Vital Signs Vital Signs: Vital Signs - 24 hr 01/09/25 20:10 01/09/25 20:11 01/09/25 20:18 Temperature Pulse Rate 97 99 Respiratory Rate 20 20 Blood Pressure Pulse Oximetry 92 Oxygen Delivery Nasal Cannula Oxygen Flow Rate 4 Fraction of Inspired Oxygen 01/09/25 20:52 01/10/25 04:05 01/10/25 04:10 Temperature 97.7 F Pulse Rate 90 108 H 112 H Respiratory Rate 20 16 16 Blood Pressure 135/81 Pulse Oximetry 94 Oxygen Delivery Oxygen Flow Rate Fraction of Inspired Oxygen 01/10/25 05:33 01/10/25 07:18 01/10/25 07:18 Temperature 98.1 F Pulse Rate 114 H 105 H Respiratory Rate 24 H 16 Blood Pressure 119/56 L Pulse Oximetry 99 92 Oxygen Delivery Nasal Cannula Oxygen Flow Rate 4 Fraction of Inspired Oxygen 01/10/25 07:24 01/10/25 08:00 01/10/25 10:20 Temperature Pulse Rate 107 H 104 H Respiratory Rate 16 18 Blood Pressure Pulse Oximetry 93 Oxygen Delivery Nasal Cannula Oxygen Flow Rate 4 Fraction of Inspired Oxygen 01/10/25 12:00 01/10/25 12:15 01/10/25 12:15 Temperature Pulse Rate 106 H 96 Respiratory Rate 25 H Blood Pressure 149/90 H Pulse Oximetry 100 98 Oxygen Delivery CPAP Oxygen Flow Rate Fraction of Inspired Oxygen 35 01/10/25 13:06 01/10/25 13:30 01/10/25 14:00 Temperature 97.6 F Pulse Rate 102 H 95 93 Respiratory Rate 34 H 28 H Blood Pressure 116/83 Pulse Oximetry 96 97 Oxygen Delivery CPAP Oxygen Flow Rate Fraction of Inspired Oxygen 01/10/25 14:00 Temperature 98.3 F Pulse Rate 84 Respiratory Rate 24 H Blood Pressure 122/61 Pulse Oximetry 99 Oxygen Delivery Oxygen Flow Rate Fraction of Inspired Oxygen Intake/Output Intake/Output: Intake & Output 01/07/25 01/08/25 01/09/25 01/10/25 23:59 23:59 23:59 23:59 Intake Total 480 240 Output Total 150 Balance 330 240 Meds/Results Medications: Active Medications Generic Name Dose Route Start Last Admin Trade Name Freq PRN Reason Stop Dose Admin Acetaminophen 650 mg 01/09/25 17:19 01/09/25 17:38 Acetaminophen 325 Mg Tablet PO 650 mg Q4H PRN Administration Mild Pain (1-3) Albuterol/Ipratropium 3 ml 01/10/25 12:29 Ipratropium 0.5 Mg/Albuterol Sulfate 2.5 Mg Ampul.Neb 3 Ml INHALATION Q4HRT PRN Wheezing Apixaban 5 mg 01/09/25 21:00 01/10/25 09:22 Apixaban 5 Mg Tablet BY MOUTH 5 mg Q12HR CHENG Administration Calcium Carbonate 500 mg 01/10/25 09:00 01/10/25 09:21 Calcium/Vitamin D 500 Mg/5 Mcg (200 I.U.) Tablet PO 500 mg On Hold: 01/10/25 12:28 QAM CHENG Administration Clotrimazole 10 mg 01/09/25 17:00 01/10/25 13:30 Clotrimazole 10 Mg Troc MUCOUS MEM 01/20/25 23:59 Not Given QID CHENG Dextrose 12.5 gm 01/10/25 12:29 Dextrose 50% 25 Gm/50 Ml Syringe IV PUSH PRN PRN Hypoglycemia Protocol Diltiazem HCl 120 mg 01/10/25 09:00 01/10/25 09:22 Diltiazem Hcl Cd 120 Mg Cap.24hr BY MOUTH 120 mg DAILY CHENG Administration Famotidine 20 mg 01/10/25 21:00 Famotidine 20 Mg/2 Ml Vial IV PUSH Q12HR CHENG Folic Acid 1 mg 01/10/25 09:00 01/10/25 09:22 Folic Acid 1 Mg Tablet PO 1 mg DAILY CHENG Administration Glucagon 1 mg 01/10/25 12:29 Glucagon For Inj 1 Mg Vial IM PRN PRN Hypoglycemia Protocol Glucose 15 gm 01/10/25 12:29 Glucose Oral Gel 15 Gm Of Glucse In 37.5 Gm Tube PO PRN PRN Hypoglycemia Protocol Guaifenesin/Dextromethorphan 1 tab 01/09/25 09:00 01/10/25 09:22 Guaifenesin 600 Mg/Dextromethorphan 30 Mg Sr Tab 12 Hr PO 1 tab Q12HR CHENG Administration Azithromycin 500 mg/ Sodium 250 mls @ 250 mls/hr 01/10/25 00:00 01/09/25 23:14 Chloride IVPB 01/14/25 00:59 250 mls/hr Q24H CHENG Administration Cefepime HCl 2 gm/ Sodium 50 mls @ 100 mls/hr 01/10/25 21:00 Chloride IVPB Q12HR CHENG Vancomycin HCl 1,000 mg/ 250 mls @ 250 mls/hr 01/11/25 12:00 Sodium Chloride IVPB Q24H CHENG Dextrose 1,000 mls @ 100 mls/hr 01/10/25 12:29 Dextrose 5% 1,000 Ml IVPB PRN PRN Hypoglycemia Protocol Insulin Aspart 3 - 6 units 01/10/25 18:00 Insulin Aspart (*Bkc) 100 Units/Ml SUB-Q Q6HR CHENG Protocol Labetalol HCl 20 mg 01/10/25 12:30 Labetalol Hcl Inj 100 Mg/20 Ml Vial IV PUSH Q4H PRN SBP > 160 and HR> 60 -1st choice Losartan Potassium 25 mg 01/10/25 09:00 01/10/25 09:22 Losartan Potassium 25 Mg Tablet PO 25 mg QAM CHENG Administration Methotrexate 12.5 mg 01/10/25 09:00 01/10/25 09:21 Methotrexate 2.5 Mg Tab (*Chemo) PO 12.5 mg WEEKLY CHENG Administration Methylprednisolone Sodium Succinate 60 mg 01/11/25 09:00 Methylprednisolone Sod Succ 125 Mg Vial IV PUSH QAM CHENG Sodium Chloride 10 ml 01/10/25 14:00 01/10/25 13:30 Central Line Flush IV PUSH 10 ml Q8HR CHENG Administration Sodium Chloride 10 ml 01/10/25 13:24 Central Line Flush IV PUSH PRN PRN with TPN bag changes Sodium Chloride 20 ml 01/10/25 13:24 Central Line Flush IV PUSH PRN PRN after blood draws Umeclidinium/Vilanterol 1 puff 01/10/25 08:00 01/10/25 07:18 Umeclidinium/Vilanterol 62.5-25 Mcg Ellipta INHALATION 1 puff DAILYRT CHENG Administration Valacyclovir HCl 1,000 mg 01/09/25 21:00 01/10/25 09:22 Valacyclovir Hcl 500 Mg Tablet PO 1,000 mg Q12HR CHENG Administration Radiology Results: ITS Impressions Chest CTA 01/10/25 08:55 IMPRESSION: 1. Multifocal lung disease, left worse than right, consistent with pneumonia. Some component of metastatic disease may also be present. Follow-up chest CT after resolution of pneumonia is recommended. 2. Small pleural effusions. 3. Severe emphysema. 4. No pulmonary embolus. Chest X-Ray 01/10/25 13:36 IMPRESSION: 1. Right PICC tip upper SVC. 2. No significant cardiopulmonary change. 3. Scattered dense airspace disease left lung, and small effusion. Labs Labs: Laboratory Results - last 24 hr 01/09/25 01/10/25 01/10/25 16:51 05:50 10:15 WBC 9.0 RBC 2.98 L Hgb 8.9 L Hct 29.6 L MCV 99.3 MCH 29.9 MCHC 30.1 L RDW 19.7 H Plt Count 244 MPV 9.5 Immature Gran % (Auto) 6.1 H Neut % (Auto) 74.8 H Lymph % (Auto) 6.6 L [place] % (Auto) 10.6 H Eos % (Auto) 1.2 Baso % (Auto) 0.7 Lymph # (Auto) 0.59 L [place] # (Auto) 1.0 H Eos # (Auto) 0.1 Baso # (Auto) 0.1 Abs Immat Gran (auto) 0.55 H Absolute Neuts (auto) 6.7 Absolute Nucleated RBC 0.000 Nucleated RBC % 0.0 Puncture Site Right radial ABG pH 7.449 ABG pCO2 37.7 ABG pO2 60.2 L ABG PO2/FiO2 Ratio 1.37 ABG HCO3 25.6 ABG O2 Saturation 92.2 L ABG O2 Content Not Reportable ABG Base Excess 1.7 A-a Gradient 210.5 Oxyhemoglobin Not Reportable Carboxyhemoglobin Not Reportable Methemoglobin Not Reportable Reduced Hemoglobin Not Reportable Total Hemoglobin Not Reportable O2 Delivery Device Nasal cannula O2 Liters/Min 6.0 FiO2 44 Sodium 133 L Potassium 4.5 Chloride 100 Carbon Dioxide 26 Anion Gap 7 BUN 22 H Creatinine 0.65 L Estim Creat Clear Calc 54 Estimated GFR > 60 Glucose 118 H Calcium 8.3 L Magnesium 1.8 Total Bilirubin 0.3 AST 26 ALT 16 Alkaline Phosphatase 61 Total Protein 5.5 L Albumin 2.8 L Procalcitonin 0.2 Nasal MRSA (PCR) Influenza A (RT-PCR) Negative Influenza B (RT-PCR) Negative RSV (RT-PCR) Negative SARS-CoV-2 RNA (RT-PCR) Negative 01/10/25 11:11 WBC RBC Hgb Hct MCV MCH MCHC RDW Plt Count MPV Immature Gran % (Auto) Neut % (Auto) Lymph % (Auto) [place] % (Auto) Eos % (Auto) Baso % (Auto) Lymph # (Auto) [place] # (Auto) Eos # (Auto) Baso # (Auto) Abs Immat Gran (auto) Absolute Neuts (auto) Absolute Nucleated RBC Nucleated RBC % Puncture Site ABG pH ABG pCO2 ABG pO2 ABG PO2/FiO2 Ratio ABG HCO3 ABG O2 Saturation ABG O2 Content ABG Base Excess A-a Gradient Oxyhemoglobin Carboxyhemoglobin Methemoglobin Reduced Hemoglobin Total Hemoglobin O2 Delivery Device O2 Liters/Min FiO2 Sodium Potassium Chloride Carbon Dioxide Anion Gap BUN Creatinine Estim Creat Clear Calc Estimated GFR Glucose Calcium Magnesium Total Bilirubin AST ALT Alkaline Phosphatase Total Protein Albumin Procalcitonin Nasal MRSA (PCR) Not detected Influenza A (RT-PCR) Influenza B (RT-PCR) RSV (RT-PCR) SARS-CoV-2 RNA (RT-PCR)
[2025-01-10] MEDS: FAMOTIDINE 20 MG/2 ML VIAL IV PUSH (20:24)
[2025-01-10] MEDS: AZITHROMYCIN IV 500 MG in SODIUM CHLORIDE 0.9% IV 250 ML IVPB (23:44)
[2025-01-11] VITALS (47 sets, daily range): BP systolic 90–139; BP diastolic 54–85; PULSE 71–109; RESP 14–29; TEMP 36.4–36.8; O2SAT 92–100
[2025-01-11 05:46] LABS: Hematocrit 28.0 % (37.0-47.0); Hemoglobin 8.5 g/dL (12.0-15.0); Mean Corpuscular HGB Conc 30.4 g/dl (32-36); Mean Corpuscular Hemoglobin 29.6 pg (26-34); Mean Corpuscular Volume 97.6 fl (80-100); Platelet Count Result 250 k/mm3 (150-375); Red Blood Count 2.87 M/mm3 (4.2-5.4); White Blood Count 9.4 K/mm3 (4.5-10.0)
[2025-01-11 06:17] LABS: Alanine Aminotransferase 18 U/L (6-35); Albumin Level 3.1 g/dL (3.5-5.1); Alkaline Phosphatase 56 U/L (38-126); Anion Gap 6 mmol/L (4-12); Aspartate Amino Transferase 26 U/L (14-36); Bilirubin,Total 0.4 mg/dL (0.2-1.3); Blood Urea Nitrogen 25 mg/dL (7-17); Calcium 7.8 mg/dL (8.4-10.2); Carbon Dioxide 27 mmol/L (22-30); Chloride 96 mmol/L (98-107); Estimated CRCL calculation 56 ml/min; Estimated Glomerular Filt Rate > 60; Glucose 124 mg/dL (65-110); Magnesium 2.5 mg/dL (1.6-2.3); Potassium 4.1 mmol/L (3.4-5.0); Sodium 129 mmol/L (137-145); Total Protein 5.9 g/dL (6.3-8.2)
[2025-01-11] MEDS: CENTRAL LINE FLUSH 10 ML IV PUSH ×3 (06:19→21:00)
[2025-01-11] MEDS: dilTIAZem HCL CD 120 MG CAP.24HR BY MOUTH (08:14)
[2025-01-11] MEDS: FAMOTIDINE 20 MG/2 ML VIAL IV PUSH ×2 (08:15→20:47)
[2025-01-11] MEDS: CLOTRIMAZOLE 10 MG TROC MUCOUS MEM ×4 (08:15→20:48)
[2025-01-11] MEDS: CEFEPIME 2 GM in SODIUM CHLORIDE 0.9% IV 50 ML 100 ML IVPB ×2 (08:15→20:47)
[2025-01-11] MEDS: APIXABAN 5 MG TABLET BY MOUTH ×2 (08:15→20:47)
[2025-01-11] MEDS: FOLIC ACID 1 MG TABLET PO (08:15)
[2025-01-11] MEDS: LOSARTAN POTASSIUM 25 MG TABLET PO (08:15)
[2025-01-11] MEDS: ACETAMINOPHEN 325 MG TABLET 650 MG PO ×2 (08:15→17:04)
[2025-01-11] MEDS: guaiFENesin 600 MG/DEXTROMETHORPHAN 30 MG SR TAB 12 HR 1 TAB PO ×2 (08:15→20:47)
[2025-01-11] MEDS: ONDANSETRON INJ 4 MG/2 ML VIAL IV PUSH (08:18)
[2025-01-11] MEDS: FUROSEMIDE INJ 40 MG/4 ML VIAL IV PUSH (08:22)
[2025-01-11] MEDS: IPRATROPIUM 0.5 MG/ALBUTEROL SULFATE 2.5 MG AMPUL.NEB 3 ML INHALATION ×3 (08:28→20:56)
--- NOTE | 2025-01-11 10:41 | WPDINTPN ---
Progress Note: A&P Assessment and Plan (1) Acute and chronic respiratory failure: Code(s): J96.20 - Acute and chronic respiratory failure, unspecified whether with hypoxia or hypercapnia Status: Acute Assessment and Plan: Patient has a multifactorial acute on chronic respiratory failure. At baseline patient is on 4 L nasal cannula. He presented with worsening hypoxia She has history of lung cancer status post lobectomy in right upper lobe and then recurrent lung cancer which was treated with radiotherapy She also has moderately severe COPD/emphysema CT scan shows multifocal lung disease left worse than right pneumonia although she has normal WBC and low procalcitonin level She has been placed on CPAP and is doing slightly better she is able to feed full sentences. I have wean down FiO2 to 40% she is on CPAP of 10 closely monitor in ICU. May need intubation and mechanical ventilation if she deteriorates. Her antibiotic coverage has been expanded to broad-spectrum in the form of vancomycin cefepime and azithromycin She does have some wheezing I will continue with Solu-Medrol Continue bronchodilator Blood sputum cultures have been sent and are pending pneumococcus and Legionella antigen is pending ABG reviewed She has elevated BNP and small pleural effusions. I will also give her 1 dose of Lasix. 01/11 overall improved and wore CPAP overnight. She is on 4 L nasal cannula this morning. She did complain off heavy breathing this morning and was wheezing on exam. Patient was given additional dose of Lasix and bronchodilator treatment. She states that now she feels better. I will continue with CPAP p.r.n. and at night Continue bronchodilators, steroids, Lasix and antibiotics as above (2) Chronic obstructive pulmonary disease, unspecified: Qualifiers: COPD type: unspecified COPD Qualified Code(s): J44.9 - Chronic obstructive pulmonary disease, unspecified Code(s): J44.9 - Chronic obstructive pulmonary disease, unspecified Status: Acute Assessment and Plan: See above (3) Pneumonia: Code(s): J18.9 - Pneumonia, unspecified organism Status: Acute Assessment and Plan: See above (4) Squamous cell carcinoma of lung: Qualifiers: Laterality: right Qualified Code(s): C34.91 - Malignant neoplasm of unspecified part of right bronchus or lung Code(s): C34.90 - Malignant neoplasm of unspecified part of unspecified bronchus or lung Status: Acute (5) Essential hypertension: Code(s): I10 - Essential (primary) hypertension Status: Acute Assessment and Plan: Continue diltiazem and losartan. P.r.n. labetalol (6) Atrial fibrillation: Qualifiers: Atrial fibrillation type: paroxysmal Qualified Code(s): I48.0 - Paroxysmal atrial fibrillation Code(s): I48.91 - Unspecified atrial fibrillation Status: Acute Assessment and Plan: Continue p.o. diltiazem and Eliquis (7) Herpes simplex type 2 infection: Code(s): B00.9 - Herpesviral infection, unspecified Status: Acute Assessment and Plan: Continue well acyclovir Plan DVT prophylaxis -she is on Eliquis Stress ulcer prophylaxis -Pepcid Nutrition -clear liquid diet Code Status -patient is okay with intubation but does not want any CPR in the event of cardiac arrest. This was confirmed with the patient in presence of her daughter. I updated patient and her daughter that will continue with CPAP at this time and if she does not improve or deteriorate further she may need intubation and invasive mechanical ventilation. Both verbalized understanding Total Critical Care Time - 30 minutes Due to a high probability of clinically significant, life threatening deterioration, the patient required my highest level of preparedness to intervene emergently and I personally spent this critical care time directly and personally managing the patient. This critical care time included obtaining a history; examining the patient; pulse oximetry; ordering and review of studies; arranging urgent treatment with development of a management plan; evaluation of patient's response to treatment; frequent reassessment; and discussions with other providers. It was exclusive of separately billable procedures and treating other patients and teaching time. Please see Assessment and Plan section and the rest of the note for further information on patient assessment and treatment Subjective Date/time seen: 01/11/25 Patient states she did well overnight and wore CPAP through the night. Yesterday evening she took a break for 2 hours. She states she was feeling much better but this morning she had some nausea which resolved with Zofran. She states she had some heavier breathing. She denies any chest pain abdominal pain diarrhea constipation dysuria hematuria lightheadedness dizziness. All other systems were reviewed and were negative. She is in AFib with rate 80s. Blood pressure is adequate. She is now saturating 96% on 4 L nasal cannula which is her baseline oxygen supply. Review of Systems Review of Systems: All systems reviewed & are unremarkable except as noted in HPI and below (HPI) Exam Narrative: General: Pt is alert awake and in mild respiratory distress Lungs/Chest: Trachea central decreased air entry bilaterally, she has some wheezing bilateral Cardiac: Irregular rate and rhythm. Normal S1 S2. No murmurs Circulation: Pedal pulses are intact and symmetrical. Abdomen: Normal bowel sounds.. Soft. NT. ND. Extremities: No clubbing, cyanosis or edema. Warm : Pope in place Neurologic: Follows commands. Moves all 4 extremities PERRL AO x3 Skin: Bruising on legs Objective Data Vital Signs Vital Signs: Vital Signs - 24 hr 01/10/25 12:00 01/10/25 12:15 01/10/25 12:15 Temperature Pulse Rate 106 H 96 Respiratory Rate 25 H Blood Pressure 149/90 H Pulse Oximetry 100 98 Oxygen Delivery CPAP Oxygen Flow Rate Fraction of Inspired Oxygen 35 01/10/25 13:06 01/10/25 13:28 01/10/25 13:30 Temperature 36.4 C 36.4 C Pulse Rate 102 H 96 95 Respiratory Rate 34 H 34 H 28 H Blood Pressure 121/73 116/83 Pulse Oximetry 96 97 97 Oxygen Delivery CPAP Oxygen Flow Rate Fraction of Inspired Oxygen 01/10/25 13:30 01/10/25 13:31 01/10/25 13:45 Temperature 36.6 C 36.7 C 36.9 C Pulse Rate 99 91 85 Respiratory Rate 28 H 28 H 0 L Blood Pressure 116/83 115/65 Pulse Oximetry 98 100 98 Oxygen Delivery Oxygen Flow Rate Fraction of Inspired Oxygen 01/10/25 13:46 01/10/25 14:00 01/10/25 14:00 Temperature 36.9 C 36.8 C Pulse Rate 91 93 84 Respiratory Rate 26 H 24 H Blood Pressure 122/61 Pulse Oximetry 98 99 Oxygen Delivery Oxygen Flow Rate Fraction of Inspired Oxygen 01/10/25 14:09 01/10/25 14:15 01/10/25 14:30 Temperature 36.8 C 36.8 C 36.8 C Pulse Rate 87 89 83 Respiratory Rate 25 H 27 H 25 H Blood Pressure Pulse Oximetry 98 96 97 Oxygen Delivery Oxygen Flow Rate Fraction of Inspired Oxygen 01/10/25 14:45 01/10/25 15:00 01/10/25 15:01 Temperature 36.8 C 36.8 C 36.8 C Pulse Rate 83 89 88 Respiratory Rate 19 23 H 24 H Blood Pressure 112/65 Pulse Oximetry 95 97 97 Oxygen Delivery Oxygen Flow Rate Fraction of Inspired Oxygen 01/10/25 15:15 01/10/25 15:30 01/10/25 15:44 Temperature 36.8 C 36.7 C Pulse Rate 80 89 86 Respiratory Rate 23 H 23 H 21 H Blood Pressure Pulse Oximetry 97 97 96 Oxygen Delivery CPAP Oxygen Flow Rate Fraction of Inspired Oxygen 01/10/25 15:50 01/10/25 16:00 01/10/25 16:00 Temperature 36.8 C 36.9 C Pulse Rate 75 82 Respiratory Rate 22 H 21 H Blood Pressure 122/65 Pulse Oximetry 96 96 96 Oxygen Delivery Nasal Cannula Oxygen Flow Rate 4 Fraction of Inspired Oxygen 01/10/25 16:00 01/10/25 18:00 01/10/25 18:00 Temperature 37.1 C Pulse Rate 82 88 98 Respiratory Rate 30 H Blood Pressure 110/73 Pulse Oximetry 97 Oxygen Delivery Oxygen Flow Rate Fraction of Inspired Oxygen 01/10/25 19:08 01/10/25 19:15 01/10/25 19:30 Temperature 37.2 C 37.2 C 37.2 C Pulse Rate 90 90 88 Respiratory Rate 25 H 24 H 26 H Blood Pressure Pulse Oximetry 96 96 94 Oxygen Delivery Oxygen Flow Rate Fraction of Inspired Oxygen 01/10/25 19:45 01/10/25 19:49 01/10/25 20:00 Temperature 37.2 C 32.3 C L Pulse Rate 87 68 Respiratory Rate 27 H 23 H Blood Pressure 77/36 L Pulse Oximetry 94 96 100 Oxygen Delivery Nasal Cannula Oxygen Flow Rate 4 Fraction of Inspired Oxygen 01/10/25 20:00 01/10/25 20:00 01/10/25 20:00 Temperature 37.1 C Pulse Rate 103 H 88 Respiratory Rate 22 H Blood Pressure Pulse Oximetry 96 96 Oxygen Delivery Nasal Cannula Oxygen Flow Rate 5 Fraction of Inspired Oxygen 01/10/25 20:02 01/10/25 20:15 01/10/25 20:30 Temperature 37.1 C 37.2 C 37.2 C Pulse Rate 88 135 H 96 Respiratory Rate 24 H 29 H 26 H Blood Pressure 136/75 Pulse Oximetry 93 92 96 Oxygen Delivery Oxygen Flow Rate Fraction of Inspired Oxygen 01/10/25 20:45 01/10/25 21:00 01/10/25 21:01 Temperature 37.2 C 37.2 C 37.2 C Pulse Rate 96 96 87 Respiratory Rate 17 25 H 34 H Blood Pressure 121/60 Pulse Oximetry 94 98 97 Oxygen Delivery Oxygen Flow Rate Fraction of Inspired Oxygen 01/10/25 21:15 01/10/25 21:30 01/10/25 21:45 Temperature 37.2 C 37.2 C 37.2 C Pulse Rate 102 H 97 112 H Respiratory Rate 19 27 H 27 H Blood Pressure Pulse Oximetry 96 97 98 Oxygen Delivery Oxygen Flow Rate Fraction of Inspired Oxygen 01/10/25 22:00 01/10/25 22:00 01/10/25 22:07 Temperature 37.0 C 37.1 C Pulse Rate 92 92 99 Respiratory Rate 28 H 26 H Blood Pressure 106/61 Pulse Oximetry 98 98 Oxygen Delivery Oxygen Flow Rate Fraction of Inspired Oxygen 01/10/25 22:16 01/10/25 22:31 01/10/25 22:45 Temperature 37.0 C 36.9 C 36.9 C Pulse Rate 92 92 95 Respiratory Rate 25 H 17 27 H Blood Pressure Pulse Oximetry 97 96 99 Oxygen Delivery Oxygen Flow Rate Fraction of Inspired Oxygen 01/10/25 23:35 01/10/25 23:45 01/11/25 00:00 Temperature 36.8 C 36.7 C Pulse Rate 88 88 85 Respiratory Rate 28 H 23 H 20 Blood Pressure 117/65 Pulse Oximetry 93 95 97 Oxygen Delivery CPAP Oxygen Flow Rate Fraction of Inspired Oxygen 01/11/25 00:00 01/11/25 00:00 01/11/25 00:14 Temperature 36.7 C Pulse Rate 91 91 Respiratory Rate 25 H Blood Pressure Pulse Oximetry 97 96 Oxygen Delivery CPAP Oxygen Flow Rate Fraction of Inspired Oxygen 01/11/25 00:15 01/11/25 00:30 01/11/25 00:46 Temperature 36.7 C 36.7 C 36.7 C Pulse Rate 89 88 85 Respiratory Rate 24 H 29 H 28 H Blood Pressure Pulse Oximetry 95 96 97 Oxygen Delivery Oxygen Flow Rate Fraction of Inspired Oxygen 01/11/25 01:01 01/11/25 01:15 01/11/25 01:30 Temperature 36.7 C 36.6 C 36.6 C Pulse Rate 84 84 87 Respiratory Rate 20 19 22 H Blood Pressure Pulse Oximetry 97 97 98 Oxygen Delivery Oxygen Flow Rate Fraction of Inspired Oxygen 01/11/25 01:46 01/11/25 01:55 01/11/25 02:00 Temperature 36.5 C 36.4 C Pulse Rate 85 83 86 Respiratory Rate 23 H 19 17 Blood Pressure 132/74 Pulse Oximetry 97 97 97 Oxygen Delivery CPAP Oxygen Flow Rate Fraction of Inspired Oxygen 01/11/25 02:00 01/11/25 02:00 01/11/25 02:01 Temperature 36.4 C 36.4 C Pulse Rate 86 85 87 Respiratory Rate 17 20 Blood Pressure 132/74 Pulse Oximetry 98 98 Oxygen Delivery Oxygen Flow Rate Fraction of Inspired Oxygen 01/11/25 02:15 01/11/25 02:30 01/11/25 03:00 Temperature 36.4 C 36.4 C 36.6 C Pulse Rate 85 82 86 Respiratory Rate 19 23 H 20 Blood Pressure 114/79 Pulse Oximetry 97 95 96 Oxygen Delivery Oxygen Flow Rate Fraction of Inspired Oxygen 01/11/25 03:15 01/11/25 03:30 01/11/25 03:45 Temperature 36.6 C 36.6 C 36.6 C Pulse Rate 87 83 86 Respiratory Rate 20 19 20 Blood Pressure Pulse Oximetry 97 96 96 Oxygen Delivery Oxygen Flow Rate Fraction of Inspired Oxygen 01/11/25 04:00 01/11/25 04:00 01/11/25 04:00 Temperature 36.6 C Pulse Rate 89 88 Respiratory Rate 17 Blood Pressure 139/79 Pulse Oximetry 96 96 Oxygen Delivery CPAP Oxygen Flow Rate Fraction of Inspired Oxygen 01/11/25 04:15 01/11/25 04:30 01/11/25 04:45 Temperature 36.7 C 36.7 C 36.7 C Pulse Rate 86 85 87 Respiratory Rate 19 19 27 H Blood Pressure Pulse Oximetry 97 97 100 Oxygen Delivery Oxygen Flow Rate Fraction of Inspired Oxygen 01/11/25 05:00 01/11/25 05:15 01/11/25 05:30 Temperature 36.8 C 36.8 C 36.8 C Pulse Rate 92 93 92 Respiratory Rate 20 24 H 19 Blood Pressure 130/85 Pulse Oximetry 97 99 100 Oxygen Delivery Oxygen Flow Rate Fraction of Inspired Oxygen 01/11/25 05:45 01/11/25 06:00 01/11/25 06:00 Temperature 36.7 C Pulse Rate 87 88 Respiratory Rate 23 H Blood Pressure 136/82 Pulse Oximetry 100 Oxygen Delivery Oxygen Flow Rate Fraction of Inspired Oxygen 01/11/25 08:00 01/11/25 08:28 01/11/25 08:42 Temperature 36.6 C Pulse Rate 99 102 H 102 H Respiratory Rate 21 H 22 H 22 H Blood Pressure 137/84 Pulse Oximetry 100 93 Oxygen Delivery Nasal Cannula Oxygen Flow Rate 4 Fraction of Inspired Oxygen 01/11/25 08:49 01/11/25 10:00 Temperature 36.6 C Pulse Rate 109 H 91 Respiratory Rate 20 24 H Blood Pressure 104/62 Pulse Oximetry 99 Oxygen Delivery Oxygen Flow Rate Fraction of Inspired Oxygen Intake/Output Intake/Output: Intake & Output 01/08/25 01/09/25 01/10/25 01/11/25 23:59 23:59 23:59 23:59 Intake Total 480 540 50 Output Total 150 1725 350 Balance 330 -1105 -300 Meds/Results Medications: Active Medications Generic Name Dose Route Start Last Admin Trade Name Freq PRN Reason Stop Dose Admin Acetaminophen 650 mg 01/09/25 17:19 01/11/25 08:15 Acetaminophen 325 Mg Tablet PO 650 mg Q4H PRN Administration Mild Pain (1-3) Albuterol/Ipratropium 3 ml 01/10/25 12:29 01/11/25 08:28 Ipratropium 0.5 Mg/Albuterol Sulfate 2.5 Mg Ampul.Neb 3 Ml INHALATION 3 ml Q4HRT PRN Administration Wheezing Apixaban 5 mg 01/09/25 21:00 01/11/25 08:15 Apixaban 5 Mg Tablet BY MOUTH 5 mg Q12HR CHENG Administration Calcium Carbonate 500 mg 01/10/25 09:00 01/10/25 09:21 Calcium/Vitamin D 500 Mg/5 Mcg (200 I.U.) Tablet PO 500 mg On Hold: 01/10/25 12:28 QAM CHENG Administration Clotrimazole 10 mg 01/09/25 17:00 01/11/25 08:15 Clotrimazole 10 Mg Troc MUCOUS MEM 01/20/25 23:59 10 mg QID CHENG Administration Dextrose 12.5 gm 01/10/25 12:29 Dextrose 50% 25 Gm/50 Ml Syringe IV PUSH PRN PRN Hypoglycemia Protocol Diltiazem HCl 120 mg 01/10/25 09:00 01/11/25 08:14 Diltiazem Hcl Cd 120 Mg Cap.24hr BY MOUTH 120 mg DAILY CHENG Administration Famotidine 20 mg 01/10/25 21:00 01/11/25 08:15 Famotidine 20 Mg/2 Ml Vial IV PUSH 20 mg Q12HR CHENG Administration Folic Acid 1 mg 01/10/25 09:00 01/11/25 08:15 Folic Acid 1 Mg Tablet PO 1 mg DAILY CHENG Administration Glucagon 1 mg 01/10/25 12:29 Glucagon For Inj 1 Mg Vial IM PRN PRN Hypoglycemia Protocol Glucose 15 gm 01/10/25 12:29 Glucose Oral Gel 15 Gm Of Glucse In 37.5 Gm Tube PO PRN PRN Hypoglycemia Protocol Guaifenesin/Dextromethorphan 1 tab 01/09/25 09:00 01/11/25 08:15 Guaifenesin 600 Mg/Dextromethorphan 30 Mg Sr Tab 12 Hr PO 1 tab Q12HR CHENG Administration Azithromycin 500 mg/ Sodium 250 mls @ 250 mls/hr 01/10/25 00:00 01/10/25 23:44 Chloride IVPB 01/14/25 00:59 250 mls/hr Q24H CHENG Administration Cefepime HCl 2 gm/ Sodium 50 mls @ 100 mls/hr 01/10/25 21:00 01/11/25 08:45 Chloride IVPB Infused Q12HR CHENG Infusion Vancomycin HCl 1,000 mg/ 250 mls @ 250 mls/hr 01/11/25 12:00 Sodium Chloride IVPB Q24H CHENG Dextrose 1,000 mls @ 100 mls/hr 01/10/25 12:29 Dextrose 5% 1,000 Ml IVPB PRN PRN Hypoglycemia Protocol Insulin Aspart 3 - 6 units 01/10/25 18:00 01/11/25 06:19 Insulin Aspart (*Bkc) 100 Units/Ml SUB-Q Not Given Q6HR CHENG Protocol Labetalol HCl 20 mg 01/10/25 12:30 Labetalol Hcl Inj 100 Mg/20 Ml Vial IV PUSH Q4H PRN SBP > 160 and HR> 60 -1st choice Losartan Potassium 25 mg 01/10/25 09:00 01/11/25 08:15 Losartan Potassium 25 Mg Tablet PO 25 mg QAM CHENG Administration Methotrexate 12.5 mg 01/10/25 09:00 01/10/25 09:21 Methotrexate 2.5 Mg Tab (*Chemo) PO 12.5 mg WEEKLY CHENG Administration Ondansetron HCl 4 mg 01/11/25 08:10 01/11/25 08:18 Ondansetron Inj 4 Mg/2 Ml Vial IV PUSH 4 mg Q4H PRN Administration Nausea And Vomiting Prednisone 40 mg/ Prednisone 50 mg 01/12/25 08:00 10 mg PO DAILY@0800 CHENG Sodium Chloride 10 ml 01/10/25 14:00 01/11/25 06:19 Central Line Flush IV PUSH 10 ml Q8HR CHENG Administration Sodium Chloride 10 ml 01/10/25 13:24 Central Line Flush IV PUSH PRN PRN with TPN bag changes Sodium Chloride 20 ml 01/10/25 13:24 Central Line Flush IV PUSH PRN PRN after blood draws Umeclidinium/Vilanterol 1 puff 01/10/25 08:00 01/10/25 07:18 Umeclidinium/Vilanterol 62.5-25 Mcg Ellipta INHALATION 1 puff DAILYRT CHENG Administration Valacyclovir HCl 1,000 mg 01/09/25 21:00 01/11/25 08:15 Valacyclovir Hcl 500 Mg Tablet PO 1,000 mg Q12HR CHENG Administration Radiology Results: ITS Impressions Chest CTA 01/10/25 08:55 IMPRESSION: 1. Multifocal lung disease, left worse than right, consistent with pneumonia. Some component of metastatic disease may also be present. Follow-up chest CT after resolution of pneumonia is recommended. 2. Small pleural effusions. 3. Severe emphysema. 4. No pulmonary embolus. Chest X-Ray 01/10/25 13:36 IMPRESSION: 1. Right PICC tip upper SVC. 2. No significant cardiopulmonary change. 3. Scattered dense airspace disease left lung, and small effusion. Labs Labs: Laboratory Results - last 24 hr 01/10/25 01/10/25 01/10/25 10:15 11:11 17:43 WBC RBC Hgb Hct MCV MCH MCHC RDW Plt Count MPV Puncture Site Right radial ABG pH 7.449 ABG pCO2 37.7 ABG pO2 60.2 L ABG PO2/FiO2 Ratio 1.37 ABG HCO3 25.6 ABG O2 Saturation 92.2 L ABG O2 Content Not Reportable ABG Base Excess 1.7 A-a Gradient 210.5 Oxyhemoglobin Not Reportable Carboxyhemoglobin Not Reportable Methemoglobin Not Reportable Reduced Hemoglobin Not Reportable Total Hemoglobin Not Reportable O2 Delivery Device Nasal cannula O2 Liters/Min 6.0 FiO2 44 Sodium Potassium Chloride Carbon Dioxide Anion Gap BUN Creatinine Estim Creat Clear Calc Estimated GFR Glucose POC Capillary Glucose 168 H Calcium Magnesium Total Bilirubin AST ALT Alkaline Phosphatase Total Protein Albumin Nasal MRSA (PCR) Not detected 01/10/25 01/11/25 01/11/25 23:54 05:41 06:09 WBC 9.4 RBC 2.87 L Hgb 8.5 L Hct 28.0 L MCV 97.6 MCH 29.6 MCHC 30.4 L RDW 19.5 H Plt Count 250 MPV 8.9 Puncture Site ABG pH ABG pCO2 ABG pO2 ABG PO2/FiO2 Ratio ABG HCO3 ABG O2 Saturation ABG O2 Content ABG Base Excess A-a Gradient Oxyhemoglobin Carboxyhemoglobin Methemoglobin Reduced Hemoglobin Total Hemoglobin O2 Delivery Device O2 Liters/Min FiO2 Sodium 129 L Potassium 4.1 Chloride 96 L Carbon Dioxide 27 Anion Gap 6 BUN 25 H Creatinine 0.63 L Estim Creat Clear Calc 56 Estimated GFR > 60 Glucose 124 H POC Capillary Glucose 141 H 124 H Calcium 7.8 L Magnesium 2.5 H Total Bilirubin 0.4 AST 26 ALT 18 Alkaline Phosphatase 56 Total Protein 5.9 L Albumin 3.1 L Nasal MRSA (PCR) Quality VTE Prophylaxis VTE prophylaxis: pharmacologic ordered
[2025-01-11] MEDS: UMECLIDINIUM/VILANTEROL 62.5-25 MCG ELLIPTA 1 PUFF INHALATION (10:44)
[2025-01-11] MEDS: VANCOMYCIN HCL 1,000 MG in SODIUM CHLORIDE 0.9% IV 250 ML 250 MG IVPB (12:00)
[2025-01-12] VITALS (25 sets, daily range): BP systolic 95–138; BP diastolic 51–94; PULSE 49–107; RESP 18–27; TEMP 36.3–37.3; O2SAT 94–99
[2025-01-12] MEDS: AZITHROMYCIN IV 500 MG in SODIUM CHLORIDE 0.9% IV 250 ML IVPB ×2 (00:01→23:43)
[2025-01-12 04:19] LABS: Hematocrit 26.9 % (37.0-47.0); Hemoglobin 8.0 g/dL (12.0-15.0); Mean Corpuscular HGB Conc 29.7 g/dl (32-36); Mean Corpuscular Hemoglobin 29.9 pg (26-34); Mean Corpuscular Volume 100.4 fl (80-100); Platelet Count Result 265 k/mm3 (150-375); Red Blood Count 2.68 M/mm3 (4.2-5.4); White Blood Count 7.2 K/mm3 (4.5-10.0)
[2025-01-12 04:35] LABS: Alanine Aminotransferase 17 U/L (6-35); Albumin Level 2.7 g/dL (3.5-5.1); Alkaline Phosphatase 72 U/L (38-126); Anion Gap 2 mmol/L (4-12); Aspartate Amino Transferase 29 U/L (14-36); Bilirubin,Total 0.3 mg/dL (0.2-1.3); Blood Urea Nitrogen 27 mg/dL (7-17); Calcium 7.4 mg/dL (8.4-10.2); Carbon Dioxide 31 mmol/L (22-30); Chloride 97 mmol/L (98-107); Estimated CRCL calculation 54 ml/min; Estimated Glomerular Filt Rate > 60; Glucose 97 mg/dL (65-110); Magnesium 2.3 mg/dL (1.6-2.3); Potassium 4.1 mmol/L (3.4-5.0); Sodium 130 mmol/L (137-145); Total Protein 5.3 g/dL (6.3-8.2)
[2025-01-12] MEDS: CENTRAL LINE FLUSH 10 ML IV PUSH ×3 (05:39→21:22)
[2025-01-12] MEDS: ACETAMINOPHEN 325 MG TABLET 650 MG PO (05:40)
[2025-01-12] MEDS: UMECLIDINIUM/VILANTEROL 62.5-25 MCG ELLIPTA 1 PUFF INHALATION (07:02)
[2025-01-12] MEDS: IPRATROPIUM 0.5 MG/ALBUTEROL SULFATE 2.5 MG AMPUL.NEB 3 ML INHALATION ×5 (07:02→19:58)
[2025-01-12 08:42] LABS: CRP 6.2 mg/dL (<1.0)
[2025-01-12 08:44] LABS: Alveolar/Arterial O2 Gradient 124.9 mmHg; Carboxyhemoglobin 0.5 % THb (0-2.0); Fractional Inspired Oxygen 35 %; HCO3 ABG 27.7 mEq/l (22.0-26.0); Methemoglobin ABG 0.1 %THb (0-1.5); Oxygen Content ABG 12.4 %vol (16.0-22.0); Oxygen Saturation ABG 94.3 % (95.0-100.0); PCO2 ABG 45.7 mmHg (35.0-45.0); PO2 ABG 71.5 mmHg (80.0-100.0); PO2 FiO2 Ratio Arterial Blood 2.04 %; Reduced Hemoglobin 6.3 %THb (0-5.0)
[2025-01-12 08:45] LABS: Site Drawn RIGHT BRACHIAL
[2025-01-12 08:46] LABS: CPAP 10 cmH2O
[2025-01-12] MEDS: CEFEPIME 2 GM in SODIUM CHLORIDE 0.9% IV 50 ML 100 ML IVPB ×2 (08:46→21:13)
[2025-01-12] MEDS: FAMOTIDINE 20 MG/2 ML VIAL IV PUSH ×2 (08:48→21:14)
[2025-01-12] MEDS: CLOTRIMAZOLE 10 MG TROC MUCOUS MEM ×4 (08:48→21:12)
[2025-01-12] MEDS: dilTIAZem HCL CD 120 MG CAP.24HR BY MOUTH (08:48)
[2025-01-12] MEDS: LOSARTAN POTASSIUM 25 MG TABLET PO (08:49)
[2025-01-12] MEDS: guaiFENesin 600 MG/DEXTROMETHORPHAN 30 MG SR TAB 12 HR 1 TAB PO (08:49)
[2025-01-12] MEDS: APIXABAN 5 MG TABLET BY MOUTH ×2 (08:49→21:12)
[2025-01-12] MEDS: FOLIC ACID 1 MG TABLET PO (08:49)
[2025-01-12] MEDS: predniSONE 40 MG, predniSONE 10 MG 50 MG PO (08:49)
[2025-01-12] MEDS: FUROSEMIDE INJ 40 MG/4 ML VIAL 20 MG IV PUSH (09:03)
[2025-01-12] MEDS: LORazepam (*CRX) 0.5 MG TABLET 0.25 MG PO (09:04)
[2025-01-12 10:32] LABS: NT Pro B Type Natriuretic Pept 2500 pg/mL (19.9-100)
[2025-01-12 11:05] LABS: Procalcitonin 0.1 ng/mL
--- NOTE | 2025-01-12 11:32 | PM.CNPUL ---
Assessment and Plan Assessment and plan (1) Lung nodules: Code(s): R91.8 - Other nonspecific abnormal finding of lung field Status: Acute Assessment and Plan: Regarding her lung cancer, I have an office note by [facility] thoracic surgery, Dr. Cazares, on 12/07/2022.? Patient is status post robotic assisted right upper lobectomy 08/2021 for T1b N0 squamous cell carcinoma.? CT scan in October 2022 showed a new nodule in the anterior aspect of the right lower lobe and PET-CT on November 10, 2022 shows a 1.4 cm right lower lobe pulmonary nodule with an SUV of 8.3.? There were some hilar lymph nodes with an SUV of 4.4.? EBUS on 11/24/2022 showed no evidence of malignancy.? On 05/31/2023, regarding her squamous cell lung cancer, she was status post 5500 cGy in 5 fractions with SBRT to the right lower lobe completed 01/05/2023. Scheduled to see Radiation Oncology, Dr. Jay, on 07/19/2023.? 09/07/2023:? Completed SBRT to left upper lung. CT with contrast 04/11/2024 notable for multiple new nodular densities in the left lower lobe. There are multiple subpleural nodule densities in the left lung base however there was more proximal central well-defined nodule in the infrahilar region measuring 2 cm. Cytology 05/21/2024: Linear EBUS guided FNA of a pulmonary nodule in the superior segment of the left lower lobe is negative for malignancy, for L also negative for malignancy. Patient follows with Dr. Cardoso at [facility]. Last seen on 11/13/2024. She had worsening dyspnea on exertion and weight loss. She is on 4 L nasal cannula with a weight of [address] scan on 08/16/2024 and compared to previous with decreased size of her right lower lobe nodule from 13 x9 to 9 x 7 mm. She had multiple new left upper lobe and lingula nodules. The plan at that time was to give her course of antibiotics and repeat a CT scan in 8 weeks and if there was no improvement and cultures remain negative then to consider steroids for organizing pneumonia and/or rheumatoid nodules. on 11/06/2024 patient underwent bronchoscopy with EBUS and left upper lobe and lingula biopsies which showed ulcerated mucosa with underlying necrosis and acute inflammation. Transbronchial biopsies of the lingula is notable for benign bronchial wall and lung parenchymal with anthracotic pigment. Tissue cultures were negative for growth. The family tells me she did worse with the antibiotics on 11/24/2024 she was prescribed prednisone 30 mg a day for 1 week and then 20 mg a day after. She developed thrush and vaginal sores. CT scan at [facility] compared to 04/26/2024 showed new 6 mm nodule right middle lobe, 6 mm nodule right lower lobe, 11 mm nodule right lower lobe. Consolidative infiltrates or mass in the left upper lobe measuring 6 cm x 5.4 cm, mass in the inferior lingula 5 x 3.4 cm and mass in the superior segment left lower lobe 3 x 1.7 cm. Plan: Patient clinically did not respond to outpatient antibiotics or prednisone and now with a CT scan with what appear to be enlarging pulmonary masses on the left and new nodules on the right. Etiology includes cancer, inflammatory, pneumonia. Patient currently on intermittent noninvasive ventilation and is too high risk for procedure at [facility]. Discussed with her commercial property administrator Dr. Cardoso at [facility]. We recommend transfer to high level of care facility such as [facility] or [facility] for further evaluation by Pulmonary, Rheumatology and or thoracic surgery to identify etiology of enlarging masses. In the meantime will continue to treat for bacterial infection, prednisone for organizing pneumonia and COPD exacerbation. Discussed with daughter in 2 granddaughters in the room, Dr. Cardoso and Dr. Askew who will arrange transfer Will follow with you. (2) Chronic obstructive pulmonary disease, unspecified: Qualifiers: COPD type: unspecified COPD Qualified Code(s): J44.9 - Chronic obstructive pulmonary disease, unspecified Code(s): J44.9 - Chronic obstructive pulmonary disease, unspecified Status: Acute Assessment and Plan: GOLD grade 2 group E COPD Patient with 55 years tobacco use (quit 2018), Alpha 1 genotype MM, PFTs 12/07/2022 demonstrated combined obstructive and restrictive abnormality, FEV1 is 1.17 L, 57% predicted with an FEV1: FVC ratio 54% and a TLC of 3.68 L, 75% predicted. DLCO remains moderately decreased when adjusted for alveolar volume. CT scan on 10/30/2022 demonstrates moderate to severe panlobular emphysema in all lung arzola. Currently using 4 L nasal cannula 24-7. ABG on 40 per % FiO2 7.45/38/60. Plan: Patient did have and expiratory wheezes today. Agree with treatment for COPD exacerbation. Currently she is on prednisone 40 mg a day, DuoNebs q.4 hours, guaifenesin 1200 p.o. b.i.d. Goal saturation 90-94%. The patient has no hypercarbic respiratory failure but has increased work of breathing. 01/12/2025: Patient had just received some Ativan and was awake and communicative on CPAP 10. She said it was somewhat hard to breathe on this and I changed her to noninvasive ventilator with the AVAPS mode and adjusted settings to comfort resulting in rate of 14, tidal volume 450, EPAP 5, minimum inspiratory pressure 6, maximal inspiratory pressure 25, inspiratory time 1.2, rise of 5 and 35% FiO2. she said this was more comfortable to breathe. will continue noninvasive ventilation with the AVAPS mode p.r.n. during the day and HS at night. (3) ILD (interstitial lung disease): Code(s): J84.9 - Interstitial pulmonary disease, unspecified Status: Acute Assessment and Plan: On 05/31/2023, regarding her ILD, she has rheumatoid arthritis with CT scan on 10/30/2022 with diffuse centrilobular emphysema in the apices and bases and mild basilar and peripheral predominant reticulations with mild honeycombing in the bases with no change compared to 04/10/2022 and progression from 08/11/2021.? 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 PFTs on 05/23/2023 with mild obstruction and mild restriction with decreased DLCO and compared to 12/07/2022 the DLCO had decreased with no change in spirometry or lung volumes.? She was following by Rafaela Snyder, [facility] and on methotrexate 12.5 weekly, Last seen on 12/16/2024 with continuation of methotrexate 12.5 a week. In her note it said if the nodules are consistent with rheumatoid arthritis or methotrexate toxicity consider LEF verses AZA. Of note last dose of methotrexate 12.5 on 01/10/25 for her RA. She has been on prednisone 20 mg a day since approximately 12/01/24 for possible organizing pneumonia. Plan: agree with transfer to higher level of care facility to be evaluated by Rheumatology. Previously she had a positive FABIÁN at 1-40 on 06/12/2024 with a speckled pattern. Anca screen was negative on 01/26/2023. MyoMarker 3 myositis panel negative. Will repeat vasculitis workup. will discontinue methotrexate today. Continue prednisone 40 mg a day. History of Present Illness History of Present Illness Consult date: 01/12/25 Chief complaint: PNA, UTI Narrative: 06/12/2024: This is a new pulmonary consult for hypoxic respiratory failure in lung masses. 74-year-old with a history of hypertension, AFib, lung cancer, COPD, interstitial lung disease, rheumatoid arthritis. history obtained from family and her outpatient commercial property administrator, Dr. Cardoso. I last saw the patient in the clinic on 11/29/2023. On 05/31/2023, regarding her GOLD grade 2 group B COPD, she was clinically stable on Anoro Ellipta and rescue albuterol taking 1 time a month.? Activity level improved from 300 steps 1 to 2 times a day to 400 steps 1 to 2 times a day.? She is wearing 2 L nasal cannula and has to stop because of leg pain not because of breathing issues.? Her M MRC grade was 2, her CAT score was 20, she was not smoking.? I continued Anoro Ellipta and p.r.n. albuterol.? Her home O2 assessment demonstrated no oxygen at rest and 3 L with activity and I recommended this.? She is up-to-date on influenza and RSV vaccine and was unwilling to receive COVID boosters. On 05/31/2023, regarding her squamous cell lung cancer, she was status post 5500 cGy in 5 fractions with SBRT to the right lower lobe completed 01/05/2023. Scheduled to see Radiation Oncology, Dr. Jay, on 07/19/2023.? We requested prior CT scans and old PFTs. On 05/31/2023, regarding her ILD, she has rheumatoid arthritis with CT scan on 10/30/2022 with diffuse centrilobular emphysema in the apices and bases and mild basilar and peripheral predominant reticulations with mild honeycombing in the bases with no change compared to 04/10/2022 and progression from 08/11/2021.? 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 PFTs on 05/23/2023 with mild obstruction and mild restriction with decreased DLCO and compared to 12/07/2022 the DLCO had decreased with no change in spirometry or lung volumes.? She was following by Rafaela Snyder, [facility] and on methotrexate 12.5 weekly. Patient follows with Dr. Cardoso at [facility]. Last seen on 11/13/2024. She had worsening dyspnea on exertion and weight loss. She is on 4 L nasal cannula with a weight of [address] scan on 08/16/2024 And compared to previous with decreased size of her right lower lobe nodule from 13.9-9 x 7 mm. She had multiple new left upper lobe and lingula nodules. The plan at that time was to give her course of antibiotics and repeat a CT scan in 8 weeks and if there was no improvement and cultures remain negative then to consider steroids for organizing pneumonia and/or rheumatoid nodules. on 11/06/2024 patient underwent bronchoscopy with EBUS and left upper lobe and lingula biopsies which showed ulcerated mucosa with underlying necrosis and acute inflammation. Transbronchial biopsies of the lingula is notable for benign bronchial wall and lung parenchymal with anthracotic pigment. Tissue cultures were negative for growth. The family tells me she did worse with the antibiotics on 11/24/2024 she was prescribed prednisone 30 mg a day for 1 week and then 20 mg a day after. She developed thrush and vaginal sores. On 01/06/2025 the patient presented to the emergency room with a sore mouth and a UTI but had no respiratory changes. She is on 4 L nasal cannula she was treated with Keflex. 01/08/2025 patient presented to the emergency room with shortness of breath. Her blood pressure is 120/72, heart rate 75, respirations 20, saturations on 4 L nasal cannula or 100%. White blood cell count 6.8, creatinine 0.74, BNP 3730, UA consistent with a UTI. MRSA swab was negative. COVID influenza, RSV, RT PCR assay negative. CT scan compared to 04/26/2024 showed new 6 mm nodule right middle lobe, 6 mm nodule right lower lobe, 11 mm nodule right lower lobe. Consolidative infiltrates or mass in the left upper lobe measuring 6 cm x 5.4 cm, mass in the inferior lingula 5 x 3.4 cm and mass in the superior segment left lower lobe 3 x 1.7 cm. patient was started on ceftriaxone and azithromycin On 01/09. On 01/10 this was changed to vancomycin, cefepime and azithromycin was continued. She was started on valacyclovir on 01/09. ABG on 01/10/2025 on 44% FiO2 7.45/38/60. Patient required CPAP for increased work of breathing. 01/12/2025: Patient had just received some Ativan and was awake and communicative on CPAP 10. She said it was somewhat hard to breathe on this and I changed her to noninvasive ventilator with the AVAPS mode and adjusted settings to comfort resulting in rate of 14, tidal volume 450, EPAP 5, minimum inspiratory pressure 6, maximal inspiratory pressure 25, inspiratory time 1.2, rise of 5 and 35% FiO2. she said this was more comfortable to breathe. White blood cell count 7.2, creatinine 0.65. CRP 6.2, BNP has decreased from 3730 on 01/08/2025 to 2500 today. Procalcitonin has decreased from 0.2 on 01/10/2025 to 0.1 today. Chest x-ray compared to 01/10/2025 with no change in her bilateral lung bases, left upper and mid lung zone infiltrates, small right pleural effusion. DATA: 01/12/25: EXAMINATION: XR chest 1V portable INDICATION: Pneumonia TECHNIQUE: frontal view of the chest was obtained. COMPARISON: Chest radiograph dated 01/10/2025 FINDINGS: Unchanged elevation left hemidiaphragm. Also unchanged are airspace opacity left mid and upper lung zone with prominent masslike suprahilar opacity. Stable appearance of additional reticular and airspace opacities at the bilateral lung bases including small right pleural effusion. No pneumothorax. Cardiomegaly. Right upper extremity peripherally inserted central venous catheter (PICC) tip at the superior cavoatrial junction. Calcified left hilar lymph nodes consistent with old granulomatous disease. IMPRESSION: 1. Stable appearance of airspace opacities at the bilateral lung bases more prominently in the left mid and upper lung zone which could represent atelectasis, pneumonia, malignancy or some combination thereof. 2. Small right pleural effusion. 3. Cardiomegaly. 01/09/25: EXAMINATION: CTA chest PE protocol INDICATION: Shortness of breath. COMPARISON: Chest CTA 04/26/2024, chest CT 01/01/2019. FINDINGS: There is severe emphysema. There are changes of right upper lobectomy. There is a new 6 mm nodule in right middle lobe. There is a new 6 mm nodule in right lower lobe. There is a new 11 mm nodule in right lower lobe. There are dependent airspace opacities in basilar right lower lobe. There are patchy airspace opacities in left upper lobe and left lower lobe. There are small pleural effusions, left worse than right. Calcified left lung nodules and calcified left hilar lymph nodes are consistent with old granulomatous disease. Cardiomegaly is noted. There are coronary artery calcifications. There is no pulmonary embolus. The central pulmonary is enlarged, consistent with pulmonary arterial hypertension. Calcifications in the spleen are consistent with old granulomatous disease. Prominent left breast tissue is chronic and likely benign. There is severe cervical spondylosis and moderate thoracic spondylosis. IMPRESSION: 1. Multifocal lung disease, left worse than right, consistent with pneumonia. Some component of metastatic disease may also be present. Follow-up chest CT after resolution of pneumonia is recommended. 2. Small pleural effusions. 3. Severe emphysema. 4. No pulmonary embolus. 07/03/2024: PFTs interpretation from progress note mild obstructive ventilatory limitation with mack Mitten moderate to severe restriction. There is a very severe diffusion impairment. No values were listed. 04/26/2024; Summary 1. Normal LV size and presereved LV systolic function with sigmoid shaped IVS. 2. Normal RV size and function. 3. Mild TR with mod PHTN. 4. Mild AR with sclerotic AV. PASP 51. Review of Systems Constitutional: Constitutional: Reports no additional constitutional complaints Eyes: Eyes: Reports no additional eye complaints ENT: Reports system reviewed and no additional complaints, except as documented Cardiovascular: Cardiovascular: Reports no additional cardiovascular complaints Respiratory: Respiratory: Reports no additional respiratory complaints Gastrointestinal: Gastrointestinal: Reports no additional gastrointestinal complaints Musculoskeletal: Musculoskeletal: Reports no additional musculoskeletal complaints Neurologic: Reports system reviewed and no additional complaints, except as documented Psychiatric: Psychiatric: Reports no additional psychiatric complaints Endocrine: Endocrine: Reports no additional endocrine complaints Hematologic/Lymphatic: Hematologic/Lymphatic: Reports no additional hematologic/lymphatic complaints Allergic/Immunologic: Allergic/Immunologic: Reports no additional allergic/immunologic complaints [facility] Past Medical History Medical History Atrial fibrillation Herpes simplex type 2 infection BMI 22.0-22.9, adult BMI 23.0-23.9, adult 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 Grandparent Heart disease Hypertension Father Blood infection Social History Social History Social History: She has 2 children . She is . 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 Code status: Full code Smoking packs per day: 1 Smoking cigarettes per day: 20.0 Years smoked: 40 Smoking pack-years: 40.00 Smoking status: Former smoker Tobacco type: cigarettes Second hand tobacco smoke exposure: Yes Smoking end date: 04/23/15 Alcohol intake: current Substance use: never Substance use type: does not use Do You Feel Safe in your Home?: Yes Lack of Transportation: No Lack of Food: Never True Current Housing: I Have Housing Concerned About Future Housing: No Difficulty Paying Gas/Electric Bills: No Difficulty Paying for Meds: No Currently Unemployed: No Education: High School Diploma/GED Difficulty w/ Childcare or Family Care: No Living arrangements: alone Occupation/Education: retired 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 Gender identity (if verbalized by the patient): Female Spiritual care concerns: No Meds Home Medications and Allergies Home Medications ?Medication ?Instructions ?Recorded ?Confirmed ?Type omega-3 fatty acids 1,000 mg 1,000 mg PO DAILY 06/17/19 01/09/25 History capsule (Fish Oil Concentrate) folic acid 1 mg tablet 1 mg PO DAILY #90 tabs 02/02/21 01/09/25 Rx calcium 600 mg (as 1 tablet PO DAILY #90 tabs 02/06/24 01/09/25 Rx carbonate)-vitamin D3 20 mcg (800 unit) tablet losartan 50 mg tablet See Rx Instructions .Route 02/06/24 01/09/25 Rx .COMPLEX #90 tabs tiotropium 2.5 mcg-olodaterol 2.5 2 puff inhalation DAILY #4 grams 04/01/24 01/09/25 Rx mcg/actuation mist for inhalation albuterol sulfate 90 mcg/actuation 2 inh inhalation Q4-6H PRN 05/09/24 01/09/25 Rx aerosol inhaler shortness of breath or wheezing #6.7 grams diltiazem HCl 120 mg capsule,24 See Rx Instructions .Route 09/18/24 01/09/25 Rx hr,extended release (Tiadylt ER) .COMPLEX #90 caps alendronate 70 mg tablet See Rx Instructions .Route 10/14/24 01/09/25 Rx .COMPLEX #12 tabs famotidine 20 mg tablet See Rx Instructions .Route 10/27/24 01/09/25 Rx .COMPLEX #90 tabs prednisone 10 mg tablet 20 mg PO DAILY 12/03/24 01/09/25 History apixaban 5 mg tablet (Eliquis) See Rx Instructions .Route 12/15/24 01/09/25 Rx .COMPLEX #60 tabs cephalexin 500 mg capsule 500 mg PO Q6H 7 days #28 caps 01/06/25 01/09/25 Rx clotrimazole 10 mg myara 10 mg mucous membrane QID 14 days 01/06/25 01/09/25 Rx #56 tabs valacyclovir 1 gram tablet 1,000 mg PO TID 10 days #30 tabs 01/06/25 01/09/25 Rx amlodipine 10 mg tablet 10 mg PO DAILY 01/09/25 01/09/25 History Held on 01/09/25. Instructions: Patient no longer taking methotrexate sodium 2.5 mg tablet 12.5 mg PO WEEKLY 01/09/25 01/09/25 History Allergies Allergy/AdvReac Type Severity Reaction Status Date / Time omeprazole Allergy Unknown rash Verified 01/08/25 23:59 ciprofloxacin (From Cipro) AdvReac Intermediate Cramping Verified 01/08/25 23:59 of the Muscles levofloxacin AdvReac Intermediate Other Verified 01/08/25 23:59 amoxicillin AdvReac Mild Diarrhea Verified 01/08/25 23:59 ibuprofen AdvReac Unknown Verified 01/08/25 23:59 Vital Signs Vital Signs - 24 hr 01/11/25 12:00 01/11/25 12:00 01/11/25 12:00 Temperature 36.6 C Pulse Rate 92 90 Respiratory Rate 23 H Blood Pressure 90/67 L Pulse Oximetry 95 95 Oxygen Delivery Nasal Cannula Oxygen Flow Rate 4 Fraction of Inspired Oxygen 01/11/25 12:45 01/11/25 13:24 01/11/25 13:39 Temperature Pulse Rate 76 87 85 Respiratory Rate 18 20 18 Blood Pressure Pulse Oximetry Oxygen Delivery Oxygen Flow Rate Fraction of Inspired Oxygen 01/11/25 14:00 01/11/25 16:00 01/11/25 16:00 Temperature 36.8 C Pulse Rate 79 73 Respiratory Rate 18 Blood Pressure 100/54 L Pulse Oximetry 99 99 Oxygen Delivery Nasal Cannula Oxygen Flow Rate 4 Fraction of Inspired Oxygen 01/11/25 16:00 01/11/25 18:00 01/11/25 20:00 Temperature 36.7 C Pulse Rate 71 71 73 Respiratory Rate 18 Blood Pressure 118/58 L Pulse Oximetry 95 Oxygen Delivery Oxygen Flow Rate Fraction of Inspired Oxygen 01/11/25 20:00 01/11/25 20:00 01/11/25 20:57 Temperature Pulse Rate 77 80 Respiratory Rate 20 Blood Pressure Pulse Oximetry 94 Oxygen Delivery Nasal Cannula Oxygen Flow Rate 4 Fraction of Inspired Oxygen 01/11/25 21:01 01/11/25 21:12 01/11/25 22:00 Temperature Pulse Rate 80 84 85 Respiratory Rate 20 20 Blood Pressure Pulse Oximetry 95 Oxygen Delivery Nasal Cannula Oxygen Flow Rate 4 Fraction of Inspired Oxygen 01/11/25 22:24 01/12/25 00:00 01/12/25 00:00 Temperature 36.9 C Pulse Rate 85 81 Respiratory Rate 22 H 20 Blood Pressure 125/66 Pulse Oximetry 92 97 99 Oxygen Delivery CPAP CPAP Oxygen Flow Rate Fraction of Inspired Oxygen 35 01/12/25 00:00 01/12/25 01:50 01/12/25 02:00 Temperature Pulse Rate 86 79 78 Respiratory Rate 19 Blood Pressure Pulse Oximetry 99 Oxygen Delivery CPAP Oxygen Flow Rate Fraction of Inspired Oxygen 01/12/25 04:00 01/12/25 04:00 01/12/25 04:00 Temperature 36.7 C Pulse Rate 83 85 Respiratory Rate 22 H Blood Pressure 135/71 Pulse Oximetry 95 96 Oxygen Delivery Nasal Cannula Oxygen Flow Rate 4 Fraction of Inspired Oxygen 01/12/25 04:32 01/12/25 06:00 01/12/25 07:05 Temperature Pulse Rate 86 85 Respiratory Rate Blood Pressure Pulse Oximetry 95 99 Oxygen Delivery Nasal Cannula Nasal Cannula Oxygen Flow Rate 4 Fraction of Inspired Oxygen 01/12/25 07:05 01/12/25 07:15 01/12/25 08:00 Temperature 36.6 C Pulse Rate 86 89 93 Respiratory Rate 24 H 24 H 24 H Blood Pressure 138/74 Pulse Oximetry 96 Oxygen Delivery Oxygen Flow Rate Fraction of Inspired Oxygen 01/12/25 08:00 01/12/25 08:00 01/12/25 08:11 Temperature Pulse Rate 87 94 Respiratory Rate 24 H Blood Pressure Pulse Oximetry 96 Oxygen Delivery CPAP Oxygen Flow Rate Fraction of Inspired Oxygen 35 01/12/25 08:20 01/12/25 08:20 01/12/25 10:00 Temperature Pulse Rate 100 95 90 Respiratory Rate 24 H 23 H Blood Pressure Pulse Oximetry 96 Oxygen Delivery CPAP Oxygen Flow Rate Fraction of Inspired Oxygen 01/12/25 11:27 Temperature Pulse Rate 94 Respiratory Rate 24 H Blood Pressure Pulse Oximetry Oxygen Delivery Oxygen Flow Rate Fraction of Inspired Oxygen Exam Const: General: cooperative and no acute distress Orientation/consciousness: oriented to person, oriented to place and oriented to time Other: on NIV HENMT: Head: normal to inspection Ears: hearing grossly normal bilaterally Other: on NIV Eyes: General: appearance normal, both eyes and all related structures Neck: Neck: normal visual inspection Chest: Chest palpation & inspection: normal inspection of the chest Resp: Effort & Inspection: normal respiratory effort and able to speak in complete sentences Auscultation: no crackles, no rales, no rhonchi, wheezes and diminished lung sounds Other: throughout Cardio: Jugular venous distension: no JVD GI: Inspection: normal to inspection GI Palp: No abdominal tenderness Skin: General skin exam: normal color Neuro: General: oriented to person, oriented to place and oriented to time Extrem: General: normal to inspection and no edema Psych: Appearance: grossly normal Results Laboratory Findings 01/12/25 04:14 01/12/25 04:13 ABG, PT/INR, D-dimer: ABG ABG pH 7.400 (7.350-7.450) 01/12/25 08:41 ABG pCO2 45.7 mmHg (35.0-45.0) H 01/12/25 08:41 ABG pO2 71.5 mmHg (80.0-100.0) L 01/12/25 08:41 ABG O2 Saturation 94.3 % (95.0-100.0) L 01/12/25 08:41 PT/INR, D-dimer PT 18.6 Seconds (11.1-14.7) H 01/08/25 17:49 INR 1.6 01/08/25 17:49 Abnormal lab findings: Abnormal Labs 01/08/25 01/08/25 01/10/25 17:49 18:00 05:50 RBC 3.26 L 2.98 L Hgb 9.8 L 8.9 L Hct 31.4 L 29.6 L MCV MCHC 31.2 L 30.1 L RDW 19.4 H 19.7 H Immature Gran % (Auto) 2.8 H 6.1 H Neut % (Auto) 87.8 H 74.8 H Lymph % (Auto) 4.7 L 6.6 L Ocean % (Auto) 10.6 H Lymph # (Auto) 0.32 L 0.59 L Ocean # (Auto) 1.0 H Abs Immat Gran (auto) 0.19 H 0.55 H PT 18.6 H ABG pCO2 ABG pO2 ABG HCO3 ABG O2 Saturation ABG O2 Content Reduced Hemoglobin Total Hemoglobin Sodium 129 L 133 L Chloride 97 L Carbon Dioxide Anion Gap BUN 24 H 22 H Creatinine 0.65 L Glucose 124 H 118 H POC Capillary Glucose Calcium 8.3 L Magnesium C-Reactive Protein NT-Pro-B Natriuret Pep 3730 H Total Protein 6.2 L 5.5 L Albumin 3.2 L 2.8 L Urine Appearance Cloudy H Urine Protein 1+ H Urine Ketones Trace H Leukocyte Esterase Rfl 2+ H Urine RBC 21-50 H Urine WBC >100 H Urine Bacteria 1+ H 01/10/25 01/10/25 01/10/25 10:15 17:43 23:54 RBC Hgb Hct MCV MCHC RDW Immature Gran % (Auto) Neut % (Auto) Lymph % (Auto) Ocean % (Auto) Lymph # (Auto) Ocean # (Auto) Abs Immat Gran (auto) PT ABG pCO2 ABG pO2 60.2 L ABG HCO3 ABG O2 Saturation 92.2 L ABG O2 Content Reduced Hemoglobin Total Hemoglobin Sodium Chloride Carbon Dioxide Anion Gap BUN Creatinine Glucose POC Capillary Glucose 168 H 141 H Calcium Magnesium C-Reactive Protein NT-Pro-B Natriuret Pep Total Protein Albumin Urine Appearance Urine Protein Urine Ketones Leukocyte Esterase Rfl Urine RBC Urine WBC Urine Bacteria 01/11/25 01/11/25 01/11/25 05:41 06:09 11:37 RBC 2.87 L Hgb 8.5 L Hct 28.0 L MCV MCHC 30.4 L RDW 19.5 H Immature Gran % (Auto) Neut % (Auto) Lymph % (Auto) Ocean % (Auto) Lymph # (Auto) Ocean # (Auto) Abs Immat Gran (auto) PT ABG pCO2 ABG pO2 ABG HCO3 ABG O2 Saturation ABG O2 Content Reduced Hemoglobin Total Hemoglobin Sodium 129 L Chloride 96 L Carbon Dioxide Anion Gap BUN 25 H Creatinine 0.63 L Glucose 124 H POC Capillary Glucose 124 H 135 H Calcium 7.8 L Magnesium 2.5 H C-Reactive Protein NT-Pro-B Natriuret Pep Total Protein 5.9 L Albumin 3.1 L Urine Appearance Urine Protein Urine Ketones Leukocyte Esterase Rfl Urine RBC Urine WBC Urine Bacteria 01/11/25 01/12/25 01/12/25 17:05 00:10 04:13 RBC Hgb Hct MCV MCHC RDW Immature Gran % (Auto) Neut % (Auto) Lymph % (Auto) Ocean % (Auto) Lymph # (Auto) Ocean # (Auto) Abs Immat Gran (auto) PT ABG pCO2 ABG pO2 ABG HCO3 ABG O2 Saturation ABG O2 Content Reduced Hemoglobin Total Hemoglobin Sodium 130 L Chloride 97 L Carbon Dioxide 31 H Anion Gap 2 L BUN 27 H Creatinine 0.65 L Glucose POC Capillary Glucose 112 H 112 H Calcium 7.4 L Magnesium C-Reactive Protein 6.2 H NT-Pro-B Natriuret Pep 2500 H Total Protein 5.3 L Albumin 2.7 L Urine Appearance Urine Protein Urine Ketones Leukocyte Esterase Rfl Urine RBC Urine WBC Urine Bacteria 01/12/25 01/12/25 04:14 08:41 RBC 2.68 L Hgb 8.0 L Hct 26.9 L MCV 100.4 H MCHC 29.7 L RDW 19.7 H Immature Gran % (Auto) Neut % (Auto) Lymph % (Auto) Ocean % (Auto) Lymph # (Auto) Ocean # (Auto) Abs Immat Gran (auto) PT ABG pCO2 45.7 H ABG pO2 71.5 L ABG HCO3 27.7 H ABG O2 Saturation 94.3 L ABG O2 Content 12.4 L Reduced Hemoglobin 6.3 H Total Hemoglobin 9.4 L Sodium Chloride Carbon Dioxide Anion Gap BUN Creatinine Glucose POC Capillary Glucose Calcium Magnesium C-Reactive Protein NT-Pro-B Natriuret Pep Total Protein Albumin Urine Appearance Urine Protein Urine Ketones Leukocyte Esterase Rfl Urine RBC Urine WBC Urine Bacteria Diagnostic Findings Additional studies: ITS Impressions Chest X-Ray 01/08/25 18:18 IMPRESSION: 1. Large airspace disease left upper lobe. Atypical organisms should also be considered. 2. Recommend short interval follow-up to document resolution and exclude underlying lesion. Chest CTA 01/10/25 08:55 IMPRESSION: 1. Multifocal lung disease, left worse than right, consistent with pneumonia. Some component of metastatic disease may also be present. Follow-up chest CT after resolution of pneumonia is recommended. 2. Small pleural effusions. 3. Severe emphysema. 4. No pulmonary embolus. Chest X-Ray 01/10/25 13:36 IMPRESSION: 1. Right PICC tip upper SVC. 2. No significant cardiopulmonary change. 3. Scattered dense airspace disease left lung, and small effusion. Chest X-Ray 01/12/25 09:09
[2025-01-12] MEDS: VANCOMYCIN 1,500 MG/NS 500 ML 1,500 MG/500 ML BAG 250 MG IVPB (12:17)
--- NOTE | 2025-01-12 13:35 | PM.TDS ---
Transfer Discharge Sum: Prov Provider Date of admission: 01/10/25 15:39 Primary care physician: Gabriele Adams APRN Admitting clinician: Dione Gonsales MD Consults: 01/09/25 Consult to Physician Routine Comment: Spoke to 01/09 [id number] ([facility]) Consulting Provider: Galen Mathias call center rn/MD group to consult: pulmonology Reason for consultation: acute on chronic SOB, new lung findings Has provider been notified: Yes 01/10/25 Consult to Physician Routine Comment: Consulting Provider: Chong Mark call center rn/MD group to consult: icu soa integration developer Reason for consultation: icu admission Has provider been notified: Yes Receiving physician/facility: [facility] [place](ICU) DS: Admitting Diagnosis Discharge Date 01/12/25 Admitting Diagnosis Acute on Chronic Resp Failure DS: Discharge Diagnosis Discharge Diagnosis (1) Chronic obstructive pulmonary disease, unspecified: Qualifiers: COPD type: unspecified COPD Qualified Code(s): J44.9 - Chronic obstructive pulmonary disease, unspecified Code(s): J44.9 - Chronic obstructive pulmonary disease, unspecified Status: Acute (2) Mass of right lung: Code(s): R91.8 - Other nonspecific abnormal finding of lung field Status: Acute (3) Acute and chronic respiratory failure: Code(s): J96.20 - Acute and chronic respiratory failure, unspecified whether with hypoxia or hypercapnia Status: Acute (4) Lung nodules: Code(s): R91.8 - Other nonspecific abnormal finding of lung field Status: Acute (5) Essential hypertension: Code(s): I10 - Essential (primary) hypertension Status: Acute Plan Transfer Discharge Sum: Med Medications Active and Home Medications: Home Medications omega-3 fatty acids 1,000 mg capsule (Fish Oil Concentrate) 1,000 mg PO DAILY 06/17/19 [History Confirmed 01/09/25] folic acid 1 mg tablet 1 mg PO DAILY #90 tabs 02/02/21 [Rx Confirmed 01/09/25] calcium 600 mg (as carbonate)-vitamin D3 20 mcg (800 unit) tablet 1 tablet PO DAILY #90 tabs 02/06/24 [Rx Confirmed 01/09/25] losartan 50 mg tablet See Rx Instructions .Route .COMPLEX #90 tabs 02/06/24 [Rx Confirmed 01/09/25] tiotropium 2.5 mcg-olodaterol 2.5 mcg/actuation mist for inhalation 2 puff inhalation DAILY #4 grams 04/01/24 [Rx Confirmed 01/09/25] albuterol sulfate 90 mcg/actuation aerosol inhaler 2 inh inhalation Q4-6H PRN shortness of breath or wheezing #6.7 grams 05/09/24 [Rx Confirmed 01/09/25] diltiazem HCl 120 mg capsule,24 hr,extended release (Tiadylt ER) See Rx Instructions .Route .COMPLEX #90 caps 09/18/24 [Rx Confirmed 01/09/25] alendronate 70 mg tablet See Rx Instructions .Route .COMPLEX #12 tabs 10/14/24 [Rx Confirmed 01/09/25] famotidine 20 mg tablet See Rx Instructions .Route .COMPLEX #90 tabs 10/27/24 [Rx Confirmed 01/09/25] prednisone 10 mg tablet 20 mg PO DAILY 12/03/24 [History Confirmed 01/09/25] apixaban 5 mg tablet (Eliquis) See Rx Instructions .Route .COMPLEX #60 tabs 12/15/24 [Rx Confirmed 01/09/25] cephalexin 500 mg capsule 500 mg PO Q6H 7 days #28 caps 01/06/25 [Rx Confirmed 01/09/25] clotrimazole 10 mg mayra 10 mg mucous membrane QID 14 days #56 tabs 01/06/25 [Rx Confirmed 01/09/25] valacyclovir 1 gram tablet 1,000 mg PO TID 10 days #30 tabs 01/06/25 [Rx Confirmed 01/09/25] amlodipine 10 mg tablet 10 mg PO DAILY 01/09/25 [History Confirmed 01/09/25] Held on 01/09/25. Instructions: Patient no longer taking methotrexate sodium 2.5 mg tablet 12.5 mg PO WEEKLY 01/09/25 [History Confirmed 01/09/25] Active Medications Acetaminophen (Acetaminophen 325 Mg Tablet) 650 mg PO Q4H PRN PRN Reason: Mild Pain (1-3) Last Admin: 01/12/25 05:40 Dose: 650 mg Albuterol/Ipratropium (Ipratropium 0.5 Mg/Albuterol Sulfate 2.5 Mg Ampul.Neb 3 Ml) 3 ml INHALATION Q4HRT PRN PRN Reason: Wheezing Albuterol/Ipratropium (Ipratropium 0.5 Mg/Albuterol Sulfate 2.5 Mg Ampul.Neb 3 Ml) 3 ml INHALATION Q4HRT [facility] Last Admin: 01/12/25 11:24 Dose: 3 ml Apixaban (Apixaban 5 Mg Tablet) 5 mg BY MOUTH Q12HR [facility] Last Admin: 01/12/25 08:49 Dose: 5 mg Calcium Carbonate (Calcium/Vitamin D 500 Mg/5 Mcg (200 I.U.) Tablet) 500 mg PO QAM [facility] On Hold: 01/10/25 12:28 Last Admin: 01/10/25 09:21 Dose: 500 mg Clotrimazole (Clotrimazole 10 Mg Troc) 10 mg MUCOUS MEM QID [facility] Stop: 01/20/25 23:59 Last Admin: 01/12/25 12:17 Dose: 10 mg Dextrose (Dextrose 50% 25 Gm/50 Ml Syringe) 12.5 gm IV PUSH PRN PRN; Protocol PRN Reason: Hypoglycemia Diltiazem HCl (Diltiazem Hcl Cd 120 Mg Cap.24hr) 120 mg BY MOUTH DAILY [facility] Last Admin: 01/12/25 08:48 Dose: 120 mg Famotidine (Famotidine 20 Mg/2 Ml Vial) 20 mg IV PUSH Q12HR [facility] Last Admin: 01/12/25 08:48 Dose: 20 mg Folic Acid (Folic Acid 1 Mg Tablet) 1 mg PO DAILY [facility] Last Admin: 01/12/25 08:49 Dose: 1 mg Glucagon (Glucagon For Inj 1 Mg Vial) 1 mg IM PRN PRN; Protocol PRN Reason: Hypoglycemia Glucose (Glucose Oral Gel 15 Gm Of Glucse In 37.5 Gm Tube) 15 gm PO PRN PRN; Protocol PRN Reason: Hypoglycemia Guaifenesin (Guaifenesin 12 Hr 600 Mg Tabcr) 1,200 mg PO Q12HR [facility] Azithromycin 500 mg/ Sodium (Chloride) 250 mls @ 250 mls/hr IVPB Q24H [facility] Stop: 01/14/25 00:59 Last Admin: 01/12/25 00:01 Dose: 250 mls/hr Cefepime HCl 2 gm/ Sodium (Chloride) 50 mls @ 100 mls/hr IVPB Q12HR [facility] Last Admin: 01/12/25 08:46 Dose: 100 mls/hr Dextrose (Dextrose 5% 1,000 Ml) 1,000 mls @ 100 mls/hr IVPB PRN PRN; Protocol PRN Reason: Hypoglycemia Vancomycin HCl (Vancomycin 1,500 Mg/Ns 500 Ml) 1,500 mg in 500 mls @ 250 mls/hr IVPB Q24H [facility] Last Admin: 01/12/25 12:17 Dose: 250 mls/hr Insulin Aspart (Insulin Aspart (*Bkc) 100 Units/Ml) 3 - 6 units SUB-Q Q6HR [facility]ENG; Protocol Last Admin: 01/12/25 12:14 Dose: Not Given Labetalol HCl (Labetalol Hcl Inj 100 Mg/20 Ml Vial) 20 mg IV PUSH Q4H PRN PRN Reason: SBP > 160 and HR> 60 -1st choice Losartan Potassium (Losartan Potassium 25 Mg Tablet) 25 mg PO QAM [facility] Last Admin: 01/12/25 08:49 Dose: 25 mg Ondansetron HCl (Ondansetron Inj 4 Mg/2 Ml Vial) 4 mg IV PUSH Q4H PRN PRN Reason: Nausea And Vomiting Last Admin: 01/11/25 08:18 Dose: 4 mg Prednisone (Prednisone 20 Mg Tablet) 40 mg PO DAILY@0800 [facility] Sodium Chloride (Central Line Flush) 10 ml IV PUSH Q8HR [facility] Last Admin: 01/12/25 05:39 Dose: 10 ml Sodium Chloride (Central Line Flush) 10 ml IV PUSH PRN PRN PRN Reason: with TPN bag changes Sodium Chloride (Central Line Flush) 20 ml IV PUSH PRN PRN PRN Reason: after blood draws Valacyclovir HCl (Valacyclovir Hcl 500 Mg Tablet) 1,000 mg PO Q12HR [facility] Last Admin: 01/12/25 08:48 Dose: 1,000 mg Transfer Discharge Sum: Hosp Hospital Course Hospital course: 74-year-old with a history of hypertension, AFib, lung cancer, COPD, interstitial lung disease, rheumatoid arthritis presented with worsening SOB. MRSA swab was negative. COVID influenza, RSV, RT PCR assay negative. CT scan compared to 04/26/2024 showed new 6 mm nodule right middle lobe, 6 mm nodule right lower lobe, 11 mm nodule right lower lobe. Consolidative infiltrates or mass in the left upper lobe measuring 6 cm x 5.4 cm, mass in the inferior lingula 5 x 3.4 cm and mass in the superior segment left lower lobe 3 x 1.7 cm. Patient was started on ceftriaxone and azithromycin On 01/09. On 01/10 this was changed to vancomycin, cefepime and azithromycin was continued. She was started on valacyclovir on 01/09. ABG on 01/10/2025 on 44% FiO2 7.45/38/60. Patient required CPAP for increased work of breathing.Pulmonry was consulted, changed to AYDEN. 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 Completed SBRT to left upper lung, in 08/2023. Patient has ongoing SOB, 0n 11/06/2024 patient underwent bronchoscopy with EBUS and left upper lobe and lingula biopsies which showed ulcerated mucosa with underlying necrosis and acute inflammation. Transbronchial biopsies of the lingula is notable for benign bronchial wall and lung parenchymal with anthracotic pigment. Tissue cultures were negative for growth.Was prescribed abx, steroids. Continued to have symptoms, presented to ER on 01/08/25. After discussing with her outpatient butt trimmer, decision was made to transfer to higher level of care at tertiary care hospital, might benefit from Pulmonary, CT surgery and Rheumatology eval. Patient has been accepted to [facility] ICU. Patient Condition: Stable Time Spent with Patient Time attestation: Total time spent providing and/or coordinating transfer services:36 mins Exam Const: General: cooperative and no acute distress Orientation/consciousness: oriented to person, oriented to place and oriented to time Other: on NIV HENMT: Head: normal to inspection Ears: hearing grossly normal bilaterally Other: on NIV Eyes: General: appearance normal, both eyes and all related structures Neck: Neck: normal visual inspection Chest: Chest palpation & inspection: normal inspection of the chest Resp: Effort & Inspection: normal respiratory effort and able to speak in complete sentences Auscultation: no crackles, no rales, no rhonchi, wheezes and diminished lung sounds Other: throughout Cardio: Jugular venous distension: no JVD GI: Inspection: normal to inspection GI Palp: No abdominal tenderness Skin: General skin exam: normal color Neuro: General: oriented to person, oriented to place and oriented to time Extrem: General: normal to inspection and no edema Psych: Appearance: grossly normal DS: Data Data Completed and Pending Labs on day of discharge: Labs from last 24 hours 01/12/25 01/12/25 01/12/25 12:36 12:10 10:57 WBC RBC Hgb Hct MCV MCH MCHC RDW Plt Count MPV Puncture Site ABG pH ABG pCO2 ABG pO2 ABG PO2/FiO2 Ratio ABG HCO3 ABG O2 Saturation ABG O2 Content ABG Base Excess A-a Gradient Oxyhemoglobin Carboxyhemoglobin Methemoglobin Reduced Hemoglobin Total Hemoglobin O2 Delivery Device O2 Liters/Min FiO2 CPAP Sodium Potassium Chloride Carbon Dioxide Anion Gap BUN Creatinine Estim Creat Clear Calc Estimated GFR Glucose POC Capillary Glucose 153 H Calcium Magnesium Total Bilirubin AST ALT Alkaline Phosphatase C-Reactive Protein NT-Pro-B Natriuret Pep Total Protein Albumin Procalcitonin Vancomycin Trough 10.3 Urine Histoplasma Ag Cancelled U Histopl Galactoman Ag Pending Urine Pneumococcal Ag Cancelled 01/12/25 01/12/25 01/12/25 08:41 05:33 04:14 WBC 7.2 RBC 2.68 L Hgb 8.0 L Hct 26.9 L MCV 100.4 H MCH 29.9 MCHC 29.7 L RDW 19.7 H Plt Count 265 MPV 9.2 Puncture Site Right brachial ABG pH 7.400 ABG pCO2 45.7 H ABG pO2 71.5 L ABG PO2/FiO2 Ratio 2.04 ABG HCO3 27.7 H ABG O2 Saturation 94.3 L ABG O2 Content 12.4 L ABG Base Excess 2.5 A-a Gradient 124.9 Oxyhemoglobin 93.1 Carboxyhemoglobin 0.5 Methemoglobin 0.1 Reduced Hemoglobin 6.3 H Total Hemoglobin 9.4 L O2 Delivery Device Cpap O2 Liters/Min Not Reportable FiO2 35 CPAP 10 Sodium Potassium Chloride Carbon Dioxide Anion Gap BUN Creatinine Estim Creat Clear Calc Estimated GFR Glucose POC Capillary Glucose 105 Calcium Magnesium Total Bilirubin AST ALT Alkaline Phosphatase C-Reactive Protein NT-Pro-B Natriuret Pep Total Protein Albumin Procalcitonin Vancomycin Trough Urine Histoplasma Ag U Histopl Galactoman Ag Urine Pneumococcal Ag 01/12/25 01/12/25 01/11/25 04:13 00:10 17:05 WBC RBC Hgb Hct MCV MCH MCHC RDW Plt Count MPV Puncture Site ABG pH ABG pCO2 ABG pO2 ABG PO2/FiO2 Ratio ABG HCO3 ABG O2 Saturation ABG O2 Content ABG Base Excess A-a Gradient Oxyhemoglobin Carboxyhemoglobin Methemoglobin Reduced Hemoglobin Total Hemoglobin O2 Delivery Device O2 Liters/Min FiO2 CPAP Sodium 130 L Potassium 4.1 Chloride 97 L Carbon Dioxide 31 H Anion Gap 2 L BUN 27 H Creatinine 0.65 L Estim Creat Clear Calc 54 Estimated GFR > 60 Glucose 97 POC Capillary Glucose 112 H 112 H Calcium 7.4 L Magnesium 2.3 Total Bilirubin 0.3 AST 29 ALT 17 Alkaline Phosphatase 72 C-Reactive Protein 6.2 H NT-Pro-B Natriuret Pep 2500 H Total Protein 5.3 L Albumin 2.7 L Procalcitonin 0.1 Vancomycin Trough Urine Histoplasma Ag U Histopl Galactoman Ag Urine Pneumococcal Ag Preliminary micro results at discharge 01/10/25 03:00 Sputum Culture - Preliminary Sputum 01/09/25 00:15 Blood Culture - Preliminary Blood 01/09/25 00:15 Blood Culture - Preliminary Blood
--- NOTE | 2025-01-12 17:01 | PC.NURSE ---
On 01/12/25, the student, Hailee York, provided care and completed [facility] documentation on this patient. I have reviewed the student's documentation and agree with the findings.Elizabeth, MSN, RN
[2025-01-12] MEDS: guaiFENesin 12 HR 600 MG TABCR 1200 MG PO (21:12)
[2025-01-13] VITALS (28 sets, daily range): BP systolic 119–141; BP diastolic 70–73; PULSE 83–115; RESP 17–27; TEMP 36.5–36.8; O2SAT 90–100
[2025-01-13 03:59] LABS: Hematocrit 26.8 % (37.0-47.0); Hemoglobin 8.0 g/dL (12.0-15.0); Mean Corpuscular HGB Conc 29.9 g/dl (32-36); Mean Corpuscular Hemoglobin 29.6 pg (26-34); Mean Corpuscular Volume 99.3 fl (80-100); Platelet Count Result 286 k/mm3 (150-375); Red Blood Count 2.70 M/mm3 (4.2-5.4); White Blood Count 7.2 K/mm3 (4.5-10.0)
[2025-01-13] MEDS: IPRATROPIUM 0.5 MG/ALBUTEROL SULFATE 2.5 MG AMPUL.NEB 3 ML INHALATION ×6 (04:11→20:32)
[2025-01-13 04:16] LABS: Creatine Kinase < 20 U/L (30-135)
[2025-01-13 04:32] LABS: Alanine Aminotransferase 15 U/L (6-35); Albumin Level 2.7 g/dL (3.5-5.1); Alkaline Phosphatase 51 U/L (38-126); Anion Gap 4 mmol/L (4-12); Aspartate Amino Transferase 25 U/L (14-36); Bilirubin,Total 0.3 mg/dL (0.2-1.3); Blood Urea Nitrogen 24 mg/dL (7-17); Calcium 7.3 mg/dL (8.4-10.2); Carbon Dioxide 30 mmol/L (22-30); Chloride 94 mmol/L (98-107); Estimated CRCL calculation 55 ml/min; Estimated Glomerular Filt Rate > 60; Glucose 94 mg/dL (65-110); Magnesium 2.3 mg/dL (1.6-2.3); Potassium 3.9 mmol/L (3.4-5.0); Sodium 128 mmol/L (137-145); Total Protein 5.2 g/dL (6.3-8.2)
--- NOTE | 2025-01-13 04:51 | PC.NURSE ---
Called Dr. Suarez regarding low urine output. States he will review and provide orders.
[2025-01-13] MEDS: SODIUM CHLORIDE 0.9% IV 1,000 ML 50 ML IV CONT ×2 (06:21→23:56)
[2025-01-13] MEDS: dilTIAZem HCL CD 120 MG CAP.24HR BY MOUTH (09:17)
[2025-01-13] MEDS: APIXABAN 5 MG TABLET BY MOUTH ×2 (09:17→20:33)
[2025-01-13] MEDS: FAMOTIDINE 20 MG/2 ML VIAL IV PUSH ×2 (09:17→20:47)
[2025-01-13] MEDS: LOSARTAN POTASSIUM 25 MG TABLET PO (09:17)
[2025-01-13] MEDS: FOLIC ACID 1 MG TABLET PO (09:17)
[2025-01-13] MEDS: guaiFENesin 12 HR 600 MG TABCR 1200 MG PO ×2 (09:17→20:33)
[2025-01-13] MEDS: CLOTRIMAZOLE 10 MG TROC MUCOUS MEM ×4 (09:17→20:33)
[2025-01-13] MEDS: CEFEPIME 2 GM in SODIUM CHLORIDE 0.9% IV 50 ML 100 ML IVPB ×2 (09:20→20:34)
--- NOTE | 2025-01-13 09:21 | PM.PNPUL ---
Progress Note: A&P Assessment and Plan (1) Lung nodules: Code(s): R91.8 - Other nonspecific abnormal finding of lung field Status: Acute Assessment and Plan: Regarding her lung cancer, I have an office note by [facility] thoracic surgery, Dr. Cazares, on 12/07/2022.? Patient is status post robotic assisted right upper lobectomy 08/2021 for T1b N0 squamous cell carcinoma.? CT scan in October 2022 showed a new nodule in the anterior aspect of the right lower lobe and PET-CT on November 10, 2022 shows a 1.4 cm right lower lobe pulmonary nodule with an SUV of 8.3.? There were some hilar lymph nodes with an SUV of 4.4.? EBUS on 11/24/2022 showed no evidence of malignancy.? On 05/31/2023, regarding her squamous cell lung cancer, she was status post 5500 cGy in 5 fractions with SBRT to the right lower lobe completed 01/05/2023. Scheduled to see Radiation Oncology, Dr. Jay, on 07/19/2023.? 09/07/2023:? Completed SBRT to left upper lung. CT with contrast 04/11/2024 notable for multiple new nodular densities in the left lower lobe. There are multiple subpleural nodule densities in the left lung base however there was more proximal central well-defined nodule in the infrahilar region measuring 2 cm. Cytology 05/21/2024: Linear EBUS guided FNA of a pulmonary nodule in the superior segment of the left lower lobe is negative for malignancy, for L also negative for malignancy. Patient follows with Dr. Cardoso at [facility]. Last seen on 11/13/2024. She had worsening dyspnea on exertion and weight loss. She is on 4 L nasal cannula with a weight of [address] scan on 08/16/2024 and compared to previous with decreased size of her right lower lobe nodule from 13 x9 to 9 x 7 mm. She had multiple new left upper lobe and lingula nodules. The plan at that time was to give her course of antibiotics and repeat a CT scan in 8 weeks and if there was no improvement and cultures remain negative then to consider steroids for organizing pneumonia and/or rheumatoid nodules. on 11/06/2024 patient underwent bronchoscopy with EBUS and left upper lobe and lingula biopsies which showed ulcerated mucosa with underlying necrosis and acute inflammation. Transbronchial biopsies of the lingula is notable for benign bronchial wall and lung parenchymal with anthracotic pigment. Tissue cultures were negative for growth. The family tells me she did worse with the antibiotics on 11/24/2024 she was prescribed prednisone 30 mg a day for 1 week and then 20 mg a day after. She developed thrush and vaginal sores. CT scan at [place] compared to 04/26/2024 showed new 6 mm nodule right middle lobe, 6 mm nodule right lower lobe, 11 mm nodule right lower lobe. Consolidative infiltrates or mass in the left upper lobe measuring 6 cm x 5.4 cm, mass in the inferior lingula 5 x 3.4 cm and mass in the superior segment left lower lobe 3 x 1.7 cm. Plan: Patient clinically did not respond to outpatient antibiotics or prednisone and now with a CT scan with what appear to be enlarging pulmonary masses on the left and new nodules on the right. Etiology includes cancer, inflammatory, pneumonia. Patient currently on intermittent noninvasive ventilation and is too high risk for procedure at [facility]. Discussed with her sample tester grinder Dr. Cardoso at [facility]. We recommend transfer to high level of care facility such as [facility] or [facility] for further evaluation by Pulmonary, Rheumatology and or thoracic surgery to identify etiology of enlarging masses. In the meantime will continue to treat for bacterial infection, prednisone for organizing pneumonia and COPD exacerbation. Discussed with daughter in 2 granddaughters in the room, Dr. Cardoso and Dr. Askew who will arrange transfer Later in the day patient was accepted for transfer to [facility]. Waiting for a bed. 01/13/25: Overall the patient states that she is about the same as yesterday. She was off the noninvasive ventilation throughout yesterday afternoon and wore the noninvasive ventilator from 11 p.m. to 3:00 a.m. this morning. She had to take the mask off because it was painful and the air was not comfortable. She still has shortness of breath at rest. When I enter the room she was on 4 L with saturations 98% and she was in mild respiratory distress. I placed her on the noninvasive ventilator with the AVAPS mode and adjusted the settings to comfort and changed her rise from 5 to 3 and changed her inspiratory time from 1.2 to 1.0. She said this was more comfortable and she actually fell a sleep. Her white blood cell count of 7.2, creatinine is 0.64. She is afebrile. Yesterday she diuresed 1 L and cumulative since admission she has diuresed 785 mL. Her weight today is 57.7 kg. Her chest x-ray shows unchanged right lower lobe, left upper and mid lung zone infiltrates and a small right pleural effusion all with no change from 01/12/2025. Plan: Patient awaiting transfer to [facility] for further evaluation by Pulmonary, Rheumatology and thoracic surgery for enlarging pulmonary masses unresponsive to antibiotics and steroids. Patient continues to require noninvasive ventilation with the AVAPS p.r.n. during the day and at night for increased work of breathing. Continue the above settings as these appear more comfortable for her. Discussed with Dr. Askew. Will follow with you. (2) Chronic obstructive pulmonary disease, unspecified: Qualifiers: COPD type: unspecified COPD Qualified Code(s): J44.9 - Chronic obstructive pulmonary disease, unspecified Code(s): J44.9 - Chronic obstructive pulmonary disease, unspecified Status: Acute Assessment and Plan: GOLD grade 2 group E COPD Patient with 55 years tobacco use (quit 2018), Alpha 1 genotype MM, PFTs 12/07/2022 demonstrated combined obstructive and restrictive abnormality, FEV1 is 1.17 L, 57% predicted with an FEV1: FVC ratio 54% and a TLC of 3.68 L, 75% predicted. DLCO remains moderately decreased when adjusted for alveolar volume. CT scan on 10/30/2022 demonstrates moderate to severe panlobular emphysema in all lung arzola. Currently using 4 L nasal cannula 24-7. ABG on 40 per % FiO2 7.45/38/60. Plan: Patient did have and expiratory wheezes today. Agree with treatment for COPD exacerbation. Currently she is on prednisone 40 mg a day, DuoNebs q.4 hours, guaifenesin 1200 p.o. b.i.d. Goal saturation 90-94%. The patient has no hypercarbic respiratory failure but has increased work of breathing. 01/12/2025: Patient had just received some Ativan and was awake and communicative on CPAP 10. She said it was somewhat hard to breathe on this and I changed her to noninvasive ventilator with the AVAPS mode and adjusted settings to comfort resulting in rate of 14, tidal volume 450, EPAP 5, minimum inspiratory pressure 6, maximal inspiratory pressure 25, inspiratory time 1.2, rise of 5 and 35% FiO2. she said this was more comfortable to breathe. will continue noninvasive ventilation with the AVAPS mode p.r.n. during the day and HS at night. 01/13/25: No wheezes on exam today. Patient was on 4 L with saturation 98%. Plan: Treating for COPD exacerbation with prednisone 40 mg a day, DuoNebs q.4 hours, guaifenesin 1200 mg p.o. b.i.d.. Goal saturation 90-94%., (3) ILD (interstitial lung disease): Code(s): J84.9 - Interstitial pulmonary disease, unspecified Status: Acute Assessment and Plan: On 05/31/2023, regarding her ILD, she has rheumatoid arthritis with CT scan on 10/30/2022 with diffuse centrilobular emphysema in the apices and bases and mild basilar and peripheral predominant reticulations with mild honeycombing in the bases with no change compared to 04/10/2022 and progression from 08/11/2021.? 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 PFTs on 05/23/2023 with mild obstruction and mild restriction with decreased DLCO and compared to 12/07/2022 the DLCO had decreased with no change in spirometry or lung volumes.? She was following by Rafaela Snyder, [place] [facility] and on methotrexate 12.5 weekly, Last seen on 12/16/2024 with continuation of methotrexate 12.5 a week. In her note it said if the nodules are consistent with rheumatoid arthritis or methotrexate toxicity consider LEF verses AZA. Of note last dose of methotrexate 12.5 on 01/10/25 for her RA. She has been on prednisone 20 mg a day since approximately 12/01/24 for possible organizing pneumonia. 01/12/25: Plan: agree with transfer to higher level of care facility to be evaluated by Rheumatology. Previously she had a positive FABIÁN at 1:40 on 06/12/2024 with a speckled pattern. Anca screen was negative on 01/26/2023. MyoMarker 3 myositis panel negative. Will repeat vasculitis workup. will discontinue methotrexate today. Continue prednisone 40 mg a day. 01/13/25: Serologies sent for vasculitis. Rheumatoid factor is 41.6. Plan: Anti CCP, Anca, FABIÁN, myositis panel all pending. Subjective Date/time seen: 01/13/25 09:21 Interval history: 01/10/2025: This is a new pulmonary consult for hypoxic respiratory failure in lung masses. 74-year-old with a history of hypertension, AFib, lung cancer, COPD, interstitial lung disease, rheumatoid arthritis. history obtained from family and her outpatient sample tester grinder, Dr. Cardoso. I last saw the patient in the clinic on 11/29/2023. On 05/31/2023, regarding her GOLD grade 2 group B COPD, she was clinically stable on Anoro Ellipta and rescue albuterol taking 1 time a month.? Activity level improved from 300 steps 1 to 2 times a day to 400 steps 1 to 2 times a day.? She is wearing 2 L nasal cannula and has to stop because of leg pain not because of breathing issues.? Her M MRC grade was 2, her CAT score was 20, she was not smoking.? I continued Anoro Ellipta and p.r.n. albuterol.? Her home O2 assessment demonstrated no oxygen at rest and 3 L with activity and I recommended this.? She is up-to-date on influenza and RSV vaccine and was unwilling to receive COVID boosters. On 05/31/2023, regarding her squamous cell lung cancer, she was status post 5500 cGy in 5 fractions with SBRT to the right lower lobe completed 01/05/2023. Scheduled to see Radiation Oncology, Dr. Jay, on 07/19/2023.? We requested prior CT scans and old PFTs. On 05/31/2023, regarding her ILD, she has rheumatoid arthritis with CT scan on 10/30/2022 with diffuse centrilobular emphysema in the apices and bases and mild basilar and peripheral predominant reticulations with mild honeycombing in the bases with no change compared to 04/10/2022 and progression from 08/11/2021.? 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 PFTs on 05/23/2023 with mild obstruction and mild restriction with decreased DLCO and compared to 12/07/2022 the DLCO had decreased with no change in spirometry or lung volumes.? She was following by Rafaela Snyder, [place] [facility] and on methotrexate 12.5 weekly. Patient follows with Dr. Cardoso at [facility]. Last seen on 11/13/2024. She had worsening dyspnea on exertion and weight loss. She is on 4 L nasal cannula with a weight of [address] scan on 08/16/2024 And compared to previous with decreased size of her right lower lobe nodule from 13.9-9 x 7 mm. She had multiple new left upper lobe and lingula nodules. The plan at that time was to give her course of antibiotics and repeat a CT scan in 8 weeks and if there was no improvement and cultures remain negative then to consider steroids for organizing pneumonia and/or rheumatoid nodules. on 11/06/2024 patient underwent bronchoscopy with EBUS and left upper lobe and lingula biopsies which showed ulcerated mucosa with underlying necrosis and acute inflammation. Transbronchial biopsies of the lingula is notable for benign bronchial wall and lung parenchymal with anthracotic pigment. Tissue cultures were negative for growth. The family tells me she did worse with the antibiotics on 11/24/2024 she was prescribed prednisone 30 mg a day for 1 week and then 20 mg a day after. She developed thrush and vaginal sores. On 01/06/2025 the patient presented to the emergency room with a sore mouth and a UTI but had no respiratory changes. She is on 4 L nasal cannula she was treated with Keflex. 01/08/2025 patient presented to the emergency room with shortness of breath. Her blood pressure is 120/72, heart rate 75, respirations 20, saturations on 4 L nasal cannula or 100%. White blood cell count 6.8, creatinine 0.74, BNP 3730, UA consistent with a UTI. MRSA swab was negative. COVID influenza, RSV, RT PCR assay negative. CT scan compared to 04/26/2024 showed new 6 mm nodule right middle lobe, 6 mm nodule right lower lobe, 11 mm nodule right lower lobe. Consolidative infiltrates or mass in the left upper lobe measuring 6 cm x 5.4 cm, mass in the inferior lingula 5 x 3.4 cm and mass in the superior segment left lower lobe 3 x 1.7 cm. patient was started on ceftriaxone and azithromycin On 01/09. On 01/10 this was changed to vancomycin, cefepime and azithromycin was continued. She was started on valacyclovir on 01/09. ABG on 01/10/2025 on 44% FiO2 7.45/38/60. Patient required CPAP for increased work of breathing. 01/12/2025: Patient had just received some Ativan and was awake and communicative on CPAP 10. She said it was somewhat hard to breathe on this and I changed her to noninvasive ventilator with the AVAPS mode and adjusted settings to comfort resulting in rate of 14, tidal volume 450, EPAP 5, minimum inspiratory pressure 6, maximal inspiratory pressure 25, inspiratory time 1.2, rise of 5 and 35% FiO2. she said this was more comfortable to breathe. White blood cell count 7.2, creatinine 0.65. CRP 6.2, BNP has decreased from 3730 on 01/08/2025 to 2500 today. Procalcitonin has decreased from 0.2 on 01/10/2025 to 0.1 today. Chest x-ray compared to 01/10/2025 with no change in her bilateral lung bases, left upper and mid lung zone infiltrates, small right pleural effusion. Later in the day patient was accepted for transfer to [facility]. Waiting for a bed. 01/13/25: Overall the patient states that she is about the same as yesterday. She was off the noninvasive ventilation throughout yesterday afternoon and wore the noninvasive ventilator from 11 p.m. to 3:00 a.m. this morning. She had to take the mask off because it was painful and the air was not comfortable. She still has shortness of breath at rest. When I enter the room she was on 4 L with saturations 98% and she was in mild respiratory distress. I placed her on the noninvasive ventilator with the AVAPS mode and adjusted the settings to comfort and changed her rise from 5 to 3 and changed her inspiratory time from 1.2 to 1.0. She said this was more comfortable and she actually fell a sleep. Her white blood cell count of 7.2, creatinine is 0.64. She is afebrile. Yesterday she diuresed 1 L and cumulative since admission she has diuresed 785 mL. Her weight today is 57.7 kg. Her chest x-ray shows unchanged right lower lobe, left upper and mid lung zone infiltrates and a small right pleural effusion all with no change from 01/12/2025. DATA: 01/12/25: EXAMINATION: XR chest 1V portable INDICATION: Pneumonia TECHNIQUE: frontal view of the chest was obtained. COMPARISON: Chest radiograph dated 01/10/2025 FINDINGS: Unchanged elevation left hemidiaphragm. Also unchanged are airspace opacity left mid and upper lung zone with prominent masslike suprahilar opacity. Stable appearance of additional reticular and airspace opacities at the bilateral lung bases including small right pleural effusion. No pneumothorax. Cardiomegaly. Right upper extremity peripherally inserted central venous catheter (PICC) tip at the superior cavoatrial junction. Calcified left hilar lymph nodes consistent with old granulomatous disease. IMPRESSION: 1. Stable appearance of airspace opacities at the bilateral lung bases more prominently in the left mid and upper lung zone which could represent atelectasis, pneumonia, malignancy or some combination thereof. 2. Small right pleural effusion. 3. Cardiomegaly. 01/09/25: EXAMINATION: CTA chest PE protocol INDICATION: Shortness of breath. COMPARISON: Chest CTA 04/26/2024, chest CT 01/01/2019. FINDINGS: There is severe emphysema. There are changes of right upper lobectomy. There is a new 6 mm nodule in right middle lobe. There is a new 6 mm nodule in right lower lobe. There is a new 11 mm nodule in right lower lobe. There are dependent airspace opacities in basilar right lower lobe. There are patchy airspace opacities in left upper lobe and left lower lobe. There are small pleural effusions, left worse than right. Calcified left lung nodules and calcified left hilar lymph nodes are consistent with old granulomatous disease. Cardiomegaly is noted. There are coronary artery calcifications. There is no pulmonary embolus. The central pulmonary is enlarged, consistent with pulmonary arterial hypertension. Calcifications in the spleen are consistent with old granulomatous disease. Prominent left breast tissue is chronic and likely benign. There is severe cervical spondylosis and moderate thoracic spondylosis. IMPRESSION: 1. Multifocal lung disease, left worse than right, consistent with pneumonia. Some component of metastatic disease may also be present. Follow-up chest CT after resolution of pneumonia is recommended. 2. Small pleural effusions. 3. Severe emphysema. 4. No pulmonary embolus. 07/03/2024: PFTs interpretation from progress note mild obstructive ventilatory limitation with mack Mitten moderate to severe restriction. There is a very severe diffusion impairment. No values were listed. 04/26/2024; Summary 1. Normal LV size and presereved LV systolic function with sigmoid shaped IVS. 2. Normal RV size and function. 3. Mild TR with mod PHTN. 4. Mild AR with sclerotic AV. PASP 51. Review of Systems Constitutional: Constitutional: Reports no additional constitutional complaints Eyes: Eyes: Reports no additional eye complaints ENT: Reports system reviewed and no additional complaints, except as documented Cardiovascular: Cardiovascular: Reports no additional cardiovascular complaints Respiratory: Respiratory: Reports no additional respiratory complaints Gastrointestinal: Gastrointestinal: Reports no additional gastrointestinal complaints Musculoskeletal: Musculoskeletal: Reports no additional musculoskeletal complaints Neurologic: Reports system reviewed and no additional complaints, except as documented Psychiatric: Psychiatric: Reports no additional psychiatric complaints Endocrine: Endocrine: Reports no additional endocrine complaints Hematologic/Lymphatic: Hematologic/Lymphatic: Reports no additional hematologic/lymphatic complaints Allergic/Immunologic: Allergic/Immunologic: Reports no additional allergic/immunologic complaints Exam Const: General: cooperative and no acute distress Orientation/consciousness: oriented to person, oriented to place and oriented to time Other: on NIV HENMT: Head: normal to inspection Ears: hearing grossly normal bilaterally Other: on NIV Eyes: General: appearance normal, both eyes and all related structures Neck: Neck: normal visual inspection Chest: Chest palpation & inspection: normal inspection of the chest Resp: Effort & Inspection: normal respiratory effort and able to speak in complete sentences Auscultation: no crackles, no rales, no rhonchi, no wheezes and diminished lung sounds Other: throughout Cardio: Jugular venous distension: no JVD GI: Inspection: normal to inspection Skin: General skin exam: normal color Neuro: General: oriented to person, oriented to place and oriented to time Extrem: General: normal to inspection and no edema Psych: Appearance: grossly normal Objective Data Vital Signs Vital Signs: Vital Signs - 24 hr 01/12/25 10:00 01/12/25 11:27 01/12/25 11:27 Temperature Pulse Rate 90 94 81 Respiratory Rate 24 H 24 H Blood Pressure Pulse Oximetry 94 Oxygen Delivery Oxygen Flow Rate Fraction of Inspired Oxygen 01/12/25 11:35 01/12/25 12:00 01/12/25 12:00 Temperature 36.3 C L Pulse Rate 93 75 94 Respiratory Rate 24 H 19 Blood Pressure 117/94 H Pulse Oximetry 94 Oxygen Delivery Oxygen Flow Rate Fraction of Inspired Oxygen 01/12/25 12:00 01/12/25 14:00 01/12/25 15:27 Temperature Pulse Rate 89 81 Respiratory Rate 22 H Blood Pressure Pulse Oximetry 94 Oxygen Delivery CPAP Oxygen Flow Rate Fraction of Inspired Oxygen 35 01/12/25 15:34 01/12/25 16:00 01/12/25 16:00 Temperature 36.7 C Pulse Rate 80 49 L 89 Respiratory Rate 22 H 26 H Blood Pressure 109/63 Pulse Oximetry 97 Oxygen Delivery Oxygen Flow Rate Fraction of Inspired Oxygen 01/12/25 16:00 01/12/25 18:00 01/12/25 19:58 Temperature Pulse Rate 81 81 95 Respiratory Rate 26 H 18 Blood Pressure Pulse Oximetry 97 95 Oxygen Delivery CPAP Nasal Cannula Oxygen Flow Rate 4 Fraction of Inspired Oxygen 35 01/12/25 20:00 01/12/25 20:00 01/12/25 20:00 Temperature 37.3 C Pulse Rate 104 H 94 Respiratory Rate 26 H Blood Pressure 134/76 Pulse Oximetry 95 96 Oxygen Delivery Nasal Cannula Oxygen Flow Rate 4 Fraction of Inspired Oxygen 01/12/25 20:01 01/12/25 22:00 01/12/25 23:55 Temperature 37.0 C Pulse Rate 95 104 H 107 H Respiratory Rate 18 27 H Blood Pressure 95/51 L Pulse Oximetry 95 Oxygen Delivery Oxygen Flow Rate Fraction of Inspired Oxygen 01/12/25 23:55 01/13/25 00:00 01/13/25 00:00 Temperature Pulse Rate 101 H Respiratory Rate 21 H Blood Pressure Pulse Oximetry 96 96 Oxygen Delivery BiPAP Nasal Cannula Oxygen Flow Rate 4 Fraction of Inspired Oxygen 35 01/13/25 02:14 01/13/25 04:00 01/13/25 04:00 Temperature 36.5 C Pulse Rate 97 102 H 106 H Respiratory Rate 17 Blood Pressure 141/73 H Pulse Oximetry 100 Oxygen Delivery Oxygen Flow Rate Fraction of Inspired Oxygen 01/13/25 04:00 01/13/25 04:11 01/13/25 04:28 Temperature Pulse Rate 100 102 H Respiratory Rate 26 H 24 H Blood Pressure Pulse Oximetry 99 Oxygen Delivery Nasal Cannula Oxygen Flow Rate 4 Fraction of Inspired Oxygen 01/13/25 06:14 01/13/25 07:52 01/13/25 08:28 Temperature 36.8 C Pulse Rate 103 H 115 H 110 H Respiratory Rate 24 H 24 H Blood Pressure 128/71 Pulse Oximetry 97 Oxygen Delivery Oxygen Flow Rate Fraction of Inspired Oxygen 01/13/25 08:33 Temperature Pulse Rate 106 H Respiratory Rate 24 H Blood Pressure Pulse Oximetry Oxygen Delivery Oxygen Flow Rate Fraction of Inspired Oxygen Intake/Output Intake/Output: Intake & Output 01/10/25 01/11/25 01/12/25 01/13/25 23:59 23:59 23:59 23:59 Intake Total 540 1230 740 420 Output Total 7642 018 6017 150 Balance -1185 880 -1060 270 Meds/Results Medications: Active Medications Generic Name Dose Route Start Last Admin Trade Name Freq PRN Reason Stop Dose Admin Acetaminophen 650 mg 01/09/25 17:19 01/12/25 05:40 Acetaminophen 325 Mg Tablet PO 650 mg Q4H PRN Administration Mild Pain (1-3) Albuterol/Ipratropium 3 ml 01/11/25 13:55 Ipratropium 0.5 Mg/Albuterol Sulfate 2.5 Mg Ampul.Neb 3 Ml INHALATION Q4HRT PRN Wheezing Albuterol/Ipratropium 3 ml 01/12/25 12:00 01/13/25 08:28 Ipratropium 0.5 Mg/Albuterol Sulfate 2.5 Mg Ampul.Neb 3 Ml INHALATION 3 ml Q4HRT CHENG Administration Apixaban 5 mg 01/09/25 21:00 01/12/25 21:12 Apixaban 5 Mg Tablet BY MOUTH 5 mg Q12HR CHENG Administration Calcium Carbonate 500 mg 01/10/25 09:00 01/10/25 09:21 Calcium/Vitamin D 500 Mg/5 Mcg (200 I.U.) Tablet PO 500 mg On Hold: 01/10/25 12:28 QAM CHENG Administration Clotrimazole 10 mg 01/09/25 17:00 01/12/25 21:12 Clotrimazole 10 Mg Troc MUCOUS MEM 01/20/25 23:59 10 mg QID CHENG Administration Dextrose 12.5 gm 01/10/25 12:29 Dextrose 50% 25 Gm/50 Ml Syringe IV PUSH PRN PRN Hypoglycemia Protocol Diltiazem HCl 120 mg 01/10/25 09:00 01/12/25 08:48 Diltiazem Hcl Cd 120 Mg Cap.24hr BY MOUTH 120 mg DAILY CHENG Administration Famotidine 20 mg 01/10/25 21:00 01/12/25 21:14 Famotidine 20 Mg/2 Ml Vial IV PUSH 20 mg Q12HR CHENG Administration Folic Acid 1 mg 01/10/25 09:00 01/12/25 08:49 Folic Acid 1 Mg Tablet PO 1 mg DAILY CHENG Administration Glucagon 1 mg 01/10/25 12:29 Glucagon For Inj 1 Mg Vial IM PRN PRN Hypoglycemia Protocol Glucose 15 gm 01/10/25 12:29 Glucose Oral Gel 15 Gm Of Glucse In 37.5 Gm Tube PO PRN PRN Hypoglycemia Protocol Guaifenesin 1,200 mg 01/12/25 21:00 01/12/25 21:12 Guaifenesin 12 Hr 600 Mg Tabcr PO 1,200 mg Q12HR CHENG Administration Azithromycin 500 mg/ Sodium 250 mls @ 250 mls/hr 01/10/25 00:00 01/13/25 06:24 Chloride IVPB 01/14/25 00:59 Infused Q24H CHENG Infusion Cefepime HCl 2 gm/ Sodium 50 mls @ 100 mls/hr 01/10/25 21:00 01/13/25 06:24 Chloride IVPB Infused Q12HR CHENG Infusion Dextrose 1,000 mls @ 100 mls/hr 01/10/25 12:29 Dextrose 5% 1,000 Ml IVPB PRN PRN Hypoglycemia Protocol Vancomycin HCl 1,500 mg in 500 mls @ 250 mls/hr 01/12/25 12:00 01/12/25 12:17 Vancomycin 1,500 Mg/Ns 500 Ml IVPB 250 mls/hr Q24H CHENG Administration Sodium Chloride 1,000 mls @ 50 mls/hr 01/13/25 04:50 01/13/25 06:21 Normal Saline Iv IV CONT 50 mls/hr .Q20H CHENG Administration Insulin Aspart 3 - 6 units 01/10/25 18:00 01/13/25 06:35 Insulin Aspart (*Bkc) 100 Units/Ml SUB-Q Not Given Q6HR [facility] Protocol Labetalol HCl 20 mg 01/10/25 12:30 Labetalol Hcl Inj 100 Mg/20 Ml Vial IV PUSH Q4H PRN SBP > 160 and HR> 60 -1st choice Losartan Potassium 25 mg 01/10/25 09:00 01/12/25 08:49 Losartan Potassium 25 Mg Tablet PO 25 mg QAM CHENG Administration Ondansetron HCl 4 mg 01/11/25 08:10 01/11/25 08:18 Ondansetron Inj 4 Mg/2 Ml Vial IV PUSH 4 mg Q4H PRN Administration Nausea And Vomiting Prednisone 40 mg 01/13/25 08:00 Prednisone 20 Mg Tablet PO DAILY@0800 CHENG Sodium Chloride 10 ml 01/10/25 14:00 01/12/25 21:22 Central Line Flush IV PUSH 10 ml Q8HR CHENG Administration Sodium Chloride 10 ml 01/10/25 13:24 Central Line Flush IV PUSH PRN PRN with TPN bag changes Sodium Chloride 20 ml 01/10/25 13:24 Central Line Flush IV PUSH PRN PRN after blood draws Valacyclovir HCl 1,000 mg 01/09/25 21:00 01/12/25 21:12 Valacyclovir Hcl 500 Mg Tablet PO 1,000 mg Q12HR CHENG Administration Radiology Results: ITS Impressions Chest CTA 01/10/25 08:55 IMPRESSION: 1. Multifocal lung disease, left worse than right, consistent with pneumonia. Some component of metastatic disease may also be present. Follow-up chest CT after resolution of pneumonia is recommended. 2. Small pleural effusions. 3. Severe emphysema. 4. No pulmonary embolus. Chest X-Ray 01/13/25 08:15 Impression: Bilateral pneumonia superimposed on chronic lung disease. Findings are progressed compared to the previous study Labs Labs: Laboratory Results - last 24 hr 01/09/25 01/12/25 01/12/25 16:51 04:13 10:57 WBC RBC Hgb Hct MCV MCH MCHC RDW Plt Count MPV Sodium Potassium Chloride Carbon Dioxide Anion Gap BUN Creatinine Estim Creat Clear Calc Estimated GFR Glucose POC Capillary Glucose Calcium Magnesium Total Bilirubin AST ALT Alkaline Phosphatase Total Creatine Kinase NT-Pro-B Natriuret Pep 2500 H Total Protein Albumin Procalcitonin 0.1 Vancomycin Trough 10.3 Rheumatoid Factor Rheum Factor (Ref Lab) Rheumatoid Factor Scrn Rheumatoid Factor Titer Anti-Cycl Citrul Peptide Anti-Proteinase 3 FEIA c/o 1.9 Anti-Myeloperoxidase Urine Histoplasma Ag M. pneumoniae (PCR) Negative Urine Pneumococcal Ag Miscellaneous Test 01/12/25 01/12/25 01/12/25 12:10 12:36 17:21 WBC RBC Hgb Hct MCV MCH MCHC RDW Plt Count MPV Sodium Potassium Chloride Carbon Dioxide Anion Gap BUN Creatinine Estim Creat Clear Calc Estimated GFR Glucose POC Capillary Glucose 153 H 135 H Calcium Magnesium Total Bilirubin AST ALT Alkaline Phosphatase Total Creatine Kinase NT-Pro-B Natriuret Pep Total Protein Albumin Procalcitonin Vancomycin Trough Rheumatoid Factor Rheum Factor (Ref Lab) Rheumatoid Factor Scrn Rheumatoid Factor Titer Anti-Cycl Citrul Peptide Anti-Proteinase 3 FEIA c/o 1.9 Anti-Myeloperoxidase Urine Histoplasma Ag Cancelled M. pneumoniae (PCR) Urine Pneumococcal Ag Cancelled Miscellaneous Test 01/12/25 01/12/25 01/13/25 19:01 23:42 03:49 WBC 7.2 RBC 2.70 L Hgb 8.0 L Hct 26.8 L MCV 99.3 MCH 29.6 MCHC 29.9 L RDW 19.6 H Plt Count 286 MPV 9.2 Sodium 128 L Potassium 3.9 Chloride 94 L Carbon Dioxide 30 Anion Gap 4 BUN 24 H Creatinine 0.64 L Estim Creat Clear Calc 55 Estimated GFR > 60 Glucose 94 POC Capillary Glucose 130 H 107 H Calcium 7.3 L Magnesium 2.3 Total Bilirubin 0.3 AST 25 ALT 15 Alkaline Phosphatase 51 Total Creatine Kinase < 20 L NT-Pro-B Natriuret Pep Total Protein 5.2 L Albumin 2.7 L Procalcitonin Vancomycin Trough Rheumatoid Factor 41.6 Rheum Factor (Ref Lab) Cancelled Rheumatoid Factor Scrn Cancelled Rheumatoid Factor Titer Cancelled Anti-Cycl Citrul Peptide Cancelled Anti-Proteinase 3 FEIA c/o 1.9 Cancelled Anti-Myeloperoxidase Cancelled Urine Histoplasma Ag M. pneumoniae (PCR) Urine Pneumococcal Ag Miscellaneous Test Cancelled
[2025-01-13] MEDS: CENTRAL LINE FLUSH 10 ML IV PUSH ×3 (09:27→20:34)
[2025-01-13] MEDS: ACETAMINOPHEN 325 MG TABLET 650 MG PO ×2 (10:44→20:35)
[2025-01-13 11:27] LABS: Anion Gap 6 mmol/L (4-12); Blood Urea Nitrogen 24 mg/dL (7-17); Carbon Dioxide 29 mmol/L (22-30); Chloride 93 mmol/L (98-107); Estimated CRCL calculation 57 ml/min; Estimated Glomerular Filt Rate > 60; Potassium 4.0 mmol/L (3.4-5.0); Sodium 128 mmol/L (137-145)
[2025-01-13 11:38] LABS: Calcium 7.5 mg/dL (8.4-10.2); Glucose 107 mg/dL (65-110)
[2025-01-13] MEDS: VANCOMYCIN 1,500 MG/NS 500 ML 1,500 MG/500 ML BAG 250 MG IVPB (12:53)
--- NOTE | 2025-01-13 14:25 | PM.IMPN ---
Progress Note: A&P Assessment and Plan (1) Atrial fibrillation: Qualifiers: Atrial fibrillation type: paroxysmal Qualified Code(s): I48.0 - Paroxysmal atrial fibrillation Code(s): I48.91 - Unspecified atrial fibrillation Status: Acute (2) PAF (paroxysmal atrial fibrillation): Code(s): I48.0 - Paroxysmal atrial fibrillation Status: Acute (3) Squamous cell carcinoma of lung: Qualifiers: Laterality: right Qualified Code(s): C34.91 - Malignant neoplasm of unspecified part of right bronchus or lung Code(s): C34.90 - Malignant neoplasm of unspecified part of unspecified bronchus or lung Status: Acute (4) Chronic obstructive pulmonary disease, unspecified: Qualifiers: COPD type: unspecified COPD Qualified Code(s): J44.9 - Chronic obstructive pulmonary disease, unspecified Code(s): J44.9 - Chronic obstructive pulmonary disease, unspecified Status: Acute (5) Mass of right lung: Code(s): R91.8 - Other nonspecific abnormal finding of lung field Status: Acute (6) Pneumonia: Code(s): J18.9 - Pneumonia, unspecified organism Status: Acute (7) Acute and chronic respiratory failure: Code(s): J96.20 - Acute and chronic respiratory failure, unspecified whether with hypoxia or hypercapnia Status: Acute Plan 74-year-old with a history of hypertension, AFib, lung cancer, COPD, interstitial lung disease, rheumatoid arthritis presented with worsening SOB. MRSA swab was negative. COVID influenza, RSV, RT PCR assay negative. CT scan compared to 04/26/2024 showed new 6 mm nodule right middle lobe, 6 mm nodule right lower lobe, 11 mm nodule right lower lobe. Consolidative infiltrates or mass in the left upper lobe measuring 6 cm x 5.4 cm, mass in the inferior lingula 5 x 3.4 cm and mass in the superior segment left lower lobe 3 x 1.7 cm. Patient was started on ceftriaxone and azithromycin On 01/09. On 01/10 this was changed to vancomycin, cefepime and azithromycin was continued. She was started on valacyclovir on 01/09. ABG on 01/10/2025 on 44% FiO2 7.45/38/60. Patient required CPAP for increased work of breathing.Pulmonry was consulted, changed to AVRAJI. 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 Completed SBRT to left upper lung, in 08/2023. Patient has ongoing SOB, 0n 11/06/2024 patient underwent bronchoscopy with EBUS and left upper lobe and lingula biopsies which showed ulcerated mucosa with underlying necrosis and acute inflammation. Transbronchial biopsies of the lingula is notable for benign bronchial wall and lung parenchymal with anthracotic pigment. Tissue cultures were negative for growth.Was prescribed abx, steroids. Continued to have symptoms, presented to ER on 01/08/25. After discussing with her outpatient sales and support center agent, decision was made to transfer to higher level of care at tertiary care hospital, might benefit from Pulmonary, CT surgery and Rheumatology eval. Patient has been accepted to [facility] ICU. Awaiting bed availability Time Spent With Patient Time: 37 mins Subjective Date/time seen: 01/13/25 14:25 Interval history: No major change clinically Review of Systems Review of Systems: All systems reviewed & are unremarkable except as noted in HPI and below Exam Const: General: cooperative and no acute distress Orientation/consciousness: oriented to person, oriented to place and oriented to time HENMT: Head: normal to inspection Ears: hearing grossly normal bilaterally Other: on NIV Eyes: General: appearance normal, both eyes and all related structures Neck: Neck: normal visual inspection Chest: Chest palpation & inspection: normal inspection of the chest Resp: Effort & Inspection: normal respiratory effort and able to speak in complete sentences Auscultation: no crackles, no rales, no rhonchi, wheezes and diminished lung sounds Other: throughout Cardio: Jugular venous distension: no JVD GI: Inspection: normal to inspection GI Palp: No abdominal tenderness Skin: General skin exam: normal color Neuro: General: oriented to person, oriented to place and oriented to time Extrem: General: normal to inspection and no edema Psych: Appearance: grossly normal Objective Data Vital Signs Vital Signs: Vital Signs - 24 hr 01/12/25 15:27 01/12/25 15:34 01/12/25 16:00 Temperature 98.0 F Pulse Rate 81 80 49 L Respiratory Rate 22 H 22 H 26 H Blood Pressure 109/63 Pulse Oximetry 97 Oxygen Delivery Oxygen Flow Rate Fraction of Inspired Oxygen 01/12/25 16:00 01/12/25 16:00 01/12/25 18:00 Temperature Pulse Rate 89 81 81 Respiratory Rate 26 H Blood Pressure Pulse Oximetry 97 Oxygen Delivery CPAP Oxygen Flow Rate Fraction of Inspired Oxygen 35 01/12/25 19:58 01/12/25 20:00 01/12/25 20:00 Temperature 99.1 F Pulse Rate 95 104 H Respiratory Rate 18 26 H Blood Pressure 134/76 Pulse Oximetry 95 95 96 Oxygen Delivery Nasal Cannula Nasal Cannula Oxygen Flow Rate 4 4 Fraction of Inspired Oxygen 01/12/25 20:00 01/12/25 20:01 01/12/25 22:00 Temperature Pulse Rate 94 95 104 H Respiratory Rate 18 Blood Pressure Pulse Oximetry Oxygen Delivery Oxygen Flow Rate Fraction of Inspired Oxygen 01/12/25 23:55 01/12/25 23:55 01/13/25 00:00 Temperature 98.6 F Pulse Rate 107 H Respiratory Rate 27 H 21 H Blood Pressure 95/51 L Pulse Oximetry 95 96 96 Oxygen Delivery BiPAP Nasal Cannula Oxygen Flow Rate 4 Fraction of Inspired Oxygen 35 01/13/25 00:00 01/13/25 02:14 01/13/25 04:00 Temperature 97.7 F Pulse Rate 101 H 97 102 H Respiratory Rate 17 Blood Pressure 141/73 H Pulse Oximetry 100 Oxygen Delivery Oxygen Flow Rate Fraction of Inspired Oxygen 01/13/25 04:00 01/13/25 04:00 01/13/25 04:11 Temperature Pulse Rate 106 H 100 Respiratory Rate 26 H Blood Pressure Pulse Oximetry 99 Oxygen Delivery Nasal Cannula Oxygen Flow Rate 4 Fraction of Inspired Oxygen 01/13/25 04:28 01/13/25 06:14 01/13/25 07:52 Temperature 98.3 F Pulse Rate 102 H 103 H 115 H Respiratory Rate 24 H 24 H Blood Pressure 128/71 Pulse Oximetry 97 Oxygen Delivery Oxygen Flow Rate Fraction of Inspired Oxygen 01/13/25 08:00 01/13/25 08:00 01/13/25 08:28 Temperature Pulse Rate 106 H 114 H 110 H Respiratory Rate 24 H 24 H Blood Pressure Pulse Oximetry 97 Oxygen Delivery Nasal Cannula Oxygen Flow Rate 4 Fraction of Inspired Oxygen 01/13/25 08:33 01/13/25 09:15 01/13/25 10:00 Temperature Pulse Rate 106 H 110 H Respiratory Rate 24 H Blood Pressure Pulse Oximetry 100 Oxygen Delivery Nasal Cannula Oxygen Flow Rate 3 Fraction of Inspired Oxygen 01/13/25 11:28 01/13/25 11:34 01/13/25 11:35 Temperature 98 F Pulse Rate 102 H 101 H 97 Respiratory Rate 27 H 22 H Blood Pressure 129/72 Pulse Oximetry 90 94 Oxygen Delivery Oxygen Flow Rate Fraction of Inspired Oxygen 01/13/25 11:43 01/13/25 12:00 01/13/25 12:00 Temperature Pulse Rate 94 94 104 H Respiratory Rate 21 H 21 H Blood Pressure Pulse Oximetry 94 Oxygen Delivery Nasal Cannula Oxygen Flow Rate 4 Fraction of Inspired Oxygen Intake/Output Intake/Output: Intake & Output 01/10/25 01/11/25 01/12/25 01/13/25 23:59 23:59 23:59 23:59 Intake Total 540 1230 1240 540 Output Total 2447 770 6827 150 Balance -1185 880 -560 390 Meds/Results Medications: Active Medications Generic Name Dose Route Start Last Admin Trade Name Freq PRN Reason Stop Dose Admin Acetaminophen 650 mg 01/09/25 17:19 01/13/25 10:44 Acetaminophen 325 Mg Tablet PO 650 mg Q4H PRN Administration Mild Pain (1-3) Albuterol/Ipratropium 3 ml 01/11/25 13:55 Ipratropium 0.5 Mg/Albuterol Sulfate 2.5 Mg Ampul.Neb 3 Ml INHALATION Q4HRT PRN Wheezing Albuterol/Ipratropium 3 ml 01/12/25 12:00 01/13/25 11:33 Ipratropium 0.5 Mg/Albuterol Sulfate 2.5 Mg Ampul.Neb 3 Ml INHALATION 3 ml Q4HRT CHENG Administration Apixaban 5 mg 01/09/25 21:00 01/13/25 09:17 Apixaban 5 Mg Tablet BY MOUTH 5 mg Q12HR CHENG Administration Calcium Carbonate 500 mg 01/10/25 09:00 01/10/25 09:21 Calcium/Vitamin D 500 Mg/5 Mcg (200 I.U.) Tablet PO 500 mg On Hold: 01/10/25 12:28 QAM CHENG Administration Clotrimazole 10 mg 01/09/25 17:00 01/13/25 12:54 Clotrimazole 10 Mg Troc MUCOUS MEM 01/20/25 23:59 10 mg QID CHENG Administration Dextrose 12.5 gm 01/10/25 12:29 Dextrose 50% 25 Gm/50 Ml Syringe IV PUSH PRN PRN Hypoglycemia Protocol Diltiazem HCl 120 mg 01/10/25 09:00 01/13/25 09:17 Diltiazem Hcl Cd 120 Mg Cap.24hr BY MOUTH 120 mg DAILY CHENG Administration Famotidine 20 mg 01/10/25 21:00 01/13/25 09:17 Famotidine 20 Mg/2 Ml Vial IV PUSH 20 mg Q12HR CHENG Administration Folic Acid 1 mg 01/10/25 09:00 01/13/25 09:17 Folic Acid 1 Mg Tablet PO 1 mg DAILY CHENG Administration Glucagon 1 mg 01/10/25 12:29 Glucagon For Inj 1 Mg Vial IM PRN PRN Hypoglycemia Protocol Glucose 15 gm 01/10/25 12:29 Glucose Oral Gel 15 Gm Of Glucse In 37.5 Gm Tube PO PRN PRN Hypoglycemia Protocol Guaifenesin 1,200 mg 01/12/25 21:00 01/13/25 09:17 Guaifenesin 12 Hr 600 Mg Tabcr PO 1,200 mg Q12HR CHENG Administration Azithromycin 500 mg/ Sodium 250 mls @ 250 mls/hr 01/10/25 00:00 01/13/25 06:24 Chloride IVPB 01/14/25 00:59 Infused Q24H CHENG Infusion Cefepime HCl 2 gm/ Sodium 50 mls @ 100 mls/hr 01/10/25 21:00 01/13/25 09:20 Chloride IVPB 100 mls/hr Q12HR CHENG Administration Dextrose 1,000 mls @ 100 mls/hr 01/10/25 12:29 Dextrose 5% 1,000 Ml IVPB PRN PRN Hypoglycemia Protocol Vancomycin HCl 1,500 mg in 500 mls @ 250 mls/hr 01/12/25 12:00 01/13/25 12:53 Vancomycin 1,500 Mg/Ns 500 Ml IVPB 250 mls/hr Q24H CHENG Administration Sodium Chloride 1,000 mls @ 50 mls/hr 01/13/25 04:50 01/13/25 06:21 Normal Saline Iv IV CONT 50 mls/hr .Q20H CHENG Administration Insulin Aspart 3 - 6 units 01/13/25 12:00 01/13/25 11:59 Insulin Aspart (*Bkc) 100 Units/Ml SUB-Q Not Given TIDWM CHENG Protocol Insulin Aspart 1 - 2 units 01/13/25 21:00 Insulin Aspart (*Bkc) 100 Units/Ml SUB-Q HS [facility] Protocol Labetalol HCl 20 mg 01/10/25 12:30 Labetalol Hcl Inj 100 Mg/20 Ml Vial IV PUSH Q4H PRN SBP > 160 and HR> 60 -1st choice Losartan Potassium 25 mg 01/10/25 09:00 01/13/25 09:17 Losartan Potassium 25 Mg Tablet PO 25 mg QAM CHENG Administration Ondansetron HCl 4 mg 01/11/25 08:10 01/11/25 08:18 Ondansetron Inj 4 Mg/2 Ml Vial IV PUSH 4 mg Q4H PRN Administration Nausea And Vomiting Prednisone 40 mg 01/13/25 08:00 01/13/25 09:17 Prednisone 20 Mg Tablet PO 40 mg DAILY@0800 CHENG Administration Sodium Chloride 10 ml 01/10/25 14:00 01/13/25 12:54 Central Line Flush IV PUSH 10 ml Q8HR CHENG Administration Sodium Chloride 10 ml 01/10/25 13:24 Central Line Flush IV PUSH PRN PRN with TPN bag changes Sodium Chloride 20 ml 01/10/25 13:24 Central Line Flush IV PUSH PRN PRN after blood draws Valacyclovir HCl 1,000 mg 01/09/25 21:00 01/13/25 09:17 Valacyclovir Hcl 500 Mg Tablet PO 1,000 mg Q12HR CHENG Administration Radiology Results: ITS Impressions Chest CTA 01/10/25 08:55 IMPRESSION: 1. Multifocal lung disease, left worse than right, consistent with pneumonia. Some component of metastatic disease may also be present. Follow-up chest CT after resolution of pneumonia is recommended. 2. Small pleural effusions. 3. Severe emphysema. 4. No pulmonary embolus. Chest X-Ray 01/13/25 08:15 Impression: Bilateral pneumonia superimposed on chronic lung disease. Findings are progressed compared to the previous study Labs Labs: Laboratory Results - last 24 hr 01/09/25 01/12/25 01/12/25 16:51 17:21 19:01 WBC RBC Hgb Hct MCV MCH MCHC RDW Plt Count MPV Sodium Potassium Chloride Carbon Dioxide Anion Gap BUN Creatinine Estim Creat Clear Calc Estimated GFR Glucose POC Capillary Glucose 135 H 130 H Calcium Magnesium Total Bilirubin AST ALT Alkaline Phosphatase Total Creatine Kinase Total Protein Albumin Rheumatoid Factor Rheum Factor (Ref Lab) Rheumatoid Factor Scrn Rheumatoid Factor Titer Anti-Cycl Citrul Peptide Anti-Proteinase 3 FEIA c/o 1.9 Anti-Myeloperoxidase M. pneumoniae (PCR) Negative Miscellaneous Test 01/12/25 01/13/25 01/13/25 23:42 03:49 10:51 WBC 7.2 RBC 2.70 L Hgb 8.0 L Hct 26.8 L MCV 99.3 MCH 29.6 MCHC 29.9 L RDW 19.6 H Plt Count 286 MPV 9.2 Sodium 128 L 128 L Potassium 3.9 4.0 Chloride 94 L 93 L Carbon Dioxide 30 29 Anion Gap 4 6 BUN 24 H 24 H Creatinine 0.64 L 0.62 L Estim Creat Clear Calc 55 57 Estimated GFR > 60 > 60 Glucose 94 107 POC Capillary Glucose 107 H Calcium 7.3 L 7.5 L Magnesium 2.3 Total Bilirubin 0.3 AST 25 ALT 15 Alkaline Phosphatase 51 Total Creatine Kinase < 20 L Total Protein 5.2 L Albumin 2.7 L Rheumatoid Factor 41.6 Rheum Factor (Ref Lab) Cancelled Rheumatoid Factor Scrn Cancelled Rheumatoid Factor Titer Cancelled Anti-Cycl Citrul Peptide Cancelled Anti-Proteinase 3 FEIA c/o 1.9 Cancelled Anti-Myeloperoxidase Cancelled M. pneumoniae (PCR) Miscellaneous Test Cancelled 01/13/25 11:17 WBC RBC Hgb Hct MCV MCH MCHC RDW Plt Count MPV Sodium Potassium Chloride Carbon Dioxide Anion Gap BUN Creatinine Estim Creat Clear Calc Estimated GFR Glucose POC Capillary Glucose 111 H Calcium Magnesium Total Bilirubin AST ALT Alkaline Phosphatase Total Creatine Kinase Total Protein Albumin Rheumatoid Factor Rheum Factor (Ref Lab) Rheumatoid Factor Scrn Rheumatoid Factor Titer Anti-Cycl Citrul Peptide Anti-Proteinase 3 FEIA c/o 1.9 Anti-Myeloperoxidase M. pneumoniae (PCR) Miscellaneous Test Quality VTE Prophylaxis VTE prophylaxis: pharmacologic ordered
[2025-01-13] MEDS: LORazepam (*CRX) 0.5 MG TABLET PO (22:11)
[2025-01-13] MEDS: AZITHROMYCIN IV 500 MG in SODIUM CHLORIDE 0.9% IV 250 ML IVPB (23:56)
[2025-01-14] VITALS (33 sets, daily range): BP systolic 120–143; BP diastolic 64–88; PULSE 64–117; RESP 16–99; TEMP 36.6–37.1; O2SAT 94–100
[2025-01-14] MEDS: IPRATROPIUM 0.5 MG/ALBUTEROL SULFATE 2.5 MG AMPUL.NEB 3 ML INHALATION ×5 (00:17→16:23)
[2025-01-14] MEDS: CENTRAL LINE FLUSH 10 ML IV PUSH ×2 (06:08→14:15)
[2025-01-14 06:29] LABS: Hematocrit 27.4 % (37.0-47.0); Hemoglobin 8.1 g/dL (12.0-15.0); Mean Corpuscular HGB Conc 29.6 g/dl (32-36); Mean Corpuscular Hemoglobin 30.0 pg (26-34); Mean Corpuscular Volume 101.5 fl (80-100); Platelet Count Result 319 k/mm3 (150-375); Red Blood Count 2.70 M/mm3 (4.2-5.4); White Blood Count 7.2 K/mm3 (4.5-10.0)
[2025-01-14 06:35] LABS: Hemoglobin A1C 5.3 % (<5.7)
[2025-01-14 06:52] LABS: Alanine Aminotransferase 13 U/L (6-35); Albumin Level 2.4 g/dL (3.5-5.1); Alkaline Phosphatase 54 U/L (38-126); Anion Gap 2 mmol/L (4-12); Aspartate Amino Transferase 26 U/L (14-36); Bilirubin,Total 0.3 mg/dL (0.2-1.3); Blood Urea Nitrogen 20 mg/dL (7-17); Calcium 7.4 mg/dL (8.4-10.2); Carbon Dioxide 30 mmol/L (22-30); Chloride 98 mmol/L (98-107); Estimated CRCL calculation 56 ml/min; Estimated Glomerular Filt Rate > 60; Glucose 91 mg/dL (65-110); Magnesium 2.2 mg/dL (1.6-2.3); Potassium 3.7 mmol/L (3.4-5.0); Sodium 130 mmol/L (137-145); Total Protein 4.9 g/dL (6.3-8.2)
[2025-01-14 07:40] LABS: NT Pro B Type Natriuretic Pept 5030 pg/mL (19.9-100)
--- NOTE | 2025-01-14 08:58 | PM.PNPUL ---
Progress Note: A&P Assessment and Plan (1) Lung nodules: Code(s): R91.8 - Other nonspecific abnormal finding of lung field Status: Acute Assessment and Plan: Regarding her lung cancer, I have an office note by [facility] thoracic surgery, Dr. Cazares, on 12/07/2022.? Patient is status post robotic assisted right upper lobectomy 08/2021 for T1b N0 squamous cell carcinoma.? CT scan in October 2022 showed a new nodule in the anterior aspect of the right lower lobe and PET-CT on November 10, 2022 shows a 1.4 cm right lower lobe pulmonary nodule with an SUV of 8.3.? There were some hilar lymph nodes with an SUV of 4.4.? EBUS on 11/24/2022 showed no evidence of malignancy.? On 05/31/2023, regarding her squamous cell lung cancer, she was status post 5500 cGy in 5 fractions with SBRT to the right lower lobe completed 01/05/2023. Scheduled to see Radiation Oncology, Dr. Jay, on 07/19/2023.? 09/07/2023:? Completed SBRT to left upper lung. CT with contrast 04/11/2024 notable for multiple new nodular densities in the left lower lobe. There are multiple subpleural nodule densities in the left lung base however there was more proximal central well-defined nodule in the infrahilar region measuring 2 cm. Cytology 05/21/2024: Linear EBUS guided FNA of a pulmonary nodule in the superior segment of the left lower lobe is negative for malignancy, for L also negative for malignancy. Patient follows with Dr. Cardoso at [facility]. Last seen on 11/13/2024. She had worsening dyspnea on exertion and weight loss. She is on 4 L nasal cannula with a weight of [address] scan on 08/16/2024 and compared to previous with decreased size of her right lower lobe nodule from 13 x9 to 9 x 7 mm. She had multiple new left upper lobe and lingula nodules. The plan at that time was to give her course of antibiotics and repeat a CT scan in 8 weeks and if there was no improvement and cultures remain negative then to consider steroids for organizing pneumonia and/or rheumatoid nodules. on 11/06/2024 patient underwent bronchoscopy with EBUS and left upper lobe and lingula biopsies which showed ulcerated mucosa with underlying necrosis and acute inflammation. Transbronchial biopsies of the lingula is notable for benign bronchial wall and lung parenchymal with anthracotic pigment. Tissue cultures were negative for growth. The family tells me she did worse with the antibiotics and on 11/24/2024 she was prescribed prednisone 30 mg a day for 1 week and then 20 mg a day after. She developed thrush and vaginal sores. CT scan at [place] compared to 04/26/2024 showed new 6 mm nodule right middle lobe, 6 mm nodule right lower lobe, 11 mm nodule right lower lobe. Consolidative infiltrates or mass in the left upper lobe measuring 6 cm x 5.4 cm, mass in the inferior lingula 5 x 3.4 cm and mass in the superior segment left lower lobe 3 x 1.7 cm. Plan: Patient clinically did not respond to outpatient antibiotics or prednisone and now with a CT scan with what appear to be enlarging pulmonary masses on the left and new nodules on the right. Etiology includes cancer, inflammatory, pneumonia. Patient currently on intermittent noninvasive ventilation and is too high risk for procedure at [facility]. Discussed with her final inspection supervisor Dr. Cardoso at [facility]. We recommend transfer to high level of care facility such as [facility] or [facility] for further evaluation by Pulmonary, Rheumatology and or thoracic surgery to identify etiology of enlarging masses. In the meantime will continue to treat for bacterial infection, prednisone for organizing pneumonia and COPD exacerbation. Discussed with daughter in 2 granddaughters in the room, Dr. Cardoso and Dr. Askew who will arrange transfer Later in the day patient was accepted for transfer to [facility]. Waiting for a bed. 01/13/25: Overall the patient states that she is about the same as yesterday. She was off the noninvasive ventilation throughout yesterday afternoon and wore the noninvasive ventilator from 11 p.m. to 3:00 a.m. this morning. She had to take the mask off because it was painful and the air was not comfortable. She still has shortness of breath at rest. When I enter the room she was on 4 L with saturations 98% and she was in mild respiratory distress. I placed her on the noninvasive ventilator with the AVAPS mode and adjusted the settings to comfort and changed her rise from 5 to 3 and changed her inspiratory time from 1.2 to 1.0. She said this was more comfortable and she actually fell a sleep. Her white blood cell count of 7.2, creatinine is 0.64. She is afebrile. Yesterday she diuresed 1 L and cumulative since admission she has diuresed 785 mL. Her weight today is 57.7 kg. Her chest x-ray shows unchanged right lower lobe, left upper and mid lung zone infiltrates and a small right pleural effusion all with no change from 01/12/2025. Plan: Patient awaiting transfer to [facility] for further evaluation by Pulmonary, Rheumatology and thoracic surgery for enlarging pulmonary masses unresponsive to antibiotics and steroids. Patient continues to require noninvasive ventilation with the AVAPS p.r.n. during the day and at night for increased work of breathing. Continue the above settings as these appear more comfortable for her. 01/14/25: Overall the patient states that she feels the same. She has shortness of breath at rest. Yesterday she required noninvasive ventilation intermittently for 1-2 hours throughout the day. She for the noninvasive ventilator from 10-2 a.m. last night and has been on 4 L nasal cannula since then. When I entered the room the patient had wheezing and was in mild respiratory distress on 4 L nasal cannula saturations 98%. I placed her on the noninvasive ventilator and called Respiratory therapy for a DuoNeb treatment. Overall she said that her cough and phlegm are unchanged with no hemoptysis. She is afebrile. White blood cell count 7.2, creatinine 0.63. BNP has increased from 2500 on 01/12/2025 to 5030 today. she is positive 1.08 L yesterday. Cumulative she is positive 294 mL since admission. Her weight today is 60.1. She complains of anxiety and is hard for her to tell if shortness of breath causes the anxiety or for anxiety causes shortness of breath. Plan: patient required noninvasive ventilation p.r.n. through the day and at night. She has enlarging pulmonary masses with no response to broad-spectrum antibiotics and steroids which were started as an outpatient on 11/24/2024. Discussed with daughter in the room and Dr. Greco. Will follow with you. (2) Chronic obstructive pulmonary disease, unspecified: Qualifiers: COPD type: unspecified COPD Qualified Code(s): J44.9 - Chronic obstructive pulmonary disease, unspecified Code(s): J44.9 - Chronic obstructive pulmonary disease, unspecified Status: Acute Assessment and Plan: GOLD grade 2 group E COPD Patient with 55 years tobacco use (quit 2018), Alpha 1 genotype MM, PFTs 12/07/2022 demonstrated combined obstructive and restrictive abnormality, FEV1 is 1.17 L, 57% predicted with an FEV1: FVC ratio 54% and a TLC of 3.68 L, 75% predicted. DLCO remains moderately decreased when adjusted for alveolar volume. CT scan on 10/30/2022 demonstrates moderate to severe panlobular emphysema in all lung arzola. Currently using 4 L nasal cannula 24-7. ABG on 40 per % FiO2 7.45/38/60. Plan: Patient did have and expiratory wheezes today. Agree with treatment for COPD exacerbation. Currently she is on prednisone 40 mg a day, DuoNebs q.4 hours, guaifenesin 1200 p.o. b.i.d. Goal saturation 90-94%. The patient has no hypercarbic respiratory failure but has increased work of breathing. 01/12/2025: Patient had just received some Ativan and was awake and communicative on CPAP 10. She said it was somewhat hard to breathe on this and I changed her to noninvasive ventilator with the AVAPS mode and adjusted settings to comfort resulting in rate of 14, tidal volume 450, EPAP 5, minimum inspiratory pressure 6, maximal inspiratory pressure 25, inspiratory time 1.2, rise of 5 and 35% FiO2. she said this was more comfortable to breathe. will continue noninvasive ventilation with the AVAPS mode p.r.n. during the day and HS at night. 01/13/25: No wheezes on exam today. Patient was on 4 L with saturation 98%. Plan: Treating for COPD exacerbation with prednisone 40 mg a day, DuoNebs q.4 hours, guaifenesin 1200 mg p.o. b.i.d.. Goal saturation 90-94%. 01/14/25: Patient with expiratory wheezes on exam today with no change in her cough or phlegm production. She makes 1 phlegm a day in the hospital now. Family tells me when she gets anxious she starts to wheeze and when she does any activity in bed she starts to wheeze. QuantiFERON gold is negative. Respiratory pathogen panel for 22 respiratory pathogens is negative. sputum shows routine respiratory vanna. Blood cultures are negative. Plan: Continue noninvasive ventilation p.r.n. during the day. Continue treatment for COPD exacerbation with prednisone 40 mg a day, today is day 4, although she was on prednisone 20 mg a day as an outpatient for her lung masses. Continue DuoNebs q.4 hours, continue guaifenesin 1200 p.o. b.i.d.. Will discuss with hospitalist a low-dose of Lasix as she was fluid positive yesterday and has a rising BNP. She has received 5 days of azithromycin and this is discontinued. Her MRSA swab was negative and she has received 5 days of IV vancomycin and will discontinue today. Continue cefepime day 4. (3) ILD (interstitial lung disease): Code(s): J84.9 - Interstitial pulmonary disease, unspecified Status: Acute Assessment and Plan: On 05/31/2023, regarding her ILD, she has rheumatoid arthritis with CT scan on 10/30/2022 with diffuse centrilobular emphysema in the apices and bases and mild basilar and peripheral predominant reticulations with mild honeycombing in the bases with no change compared to 04/10/2022 and progression from 08/11/2021.? 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 PFTs on 05/23/2023 with mild obstruction and mild restriction with decreased DLCO and compared to 12/07/2022 the DLCO had decreased with no change in spirometry or lung volumes.? She was following by Rafaela Snyder, [place] [facility] and on methotrexate 12.5 weekly, Last seen on 12/16/2024 with continuation of methotrexate 12.5 a week. In her note it said if the nodules are consistent with rheumatoid arthritis or methotrexate toxicity consider LEF verses AZA. Of note last dose of methotrexate 12.5 on 01/10/25 for her RA. She has been on prednisone 20 mg a day since approximately 12/01/24 for possible organizing pneumonia. 01/12/25: Plan: agree with transfer to higher level of care facility to be evaluated by Rheumatology. Previously she had a positive FABIÁN at 1:40 on 06/12/2024 with a speckled pattern. Anca screen was negative on 01/26/2023. MyoMarker 3 myositis panel negative. Will repeat vasculitis workup. will discontinue methotrexate today. Continue prednisone 40 mg a day. 01/13/25: Serologies sent for vasculitis. Rheumatoid factor is 41.6. Plan: Anti CCP, Anca, FABIÁN, myositis panel all pending. 01/14: Plan: Anti CCP, Anca, FABIÁN, myositis panel all pending. Subjective Date/time seen: 01/14/25 08:58 Interval history: 01/10/2025: This is a new pulmonary consult for hypoxic respiratory failure in lung masses. 74-year-old with a history of hypertension, AFib, lung cancer, COPD, interstitial lung disease, rheumatoid arthritis. history obtained from family and her outpatient final inspection supervisor, Dr. Cardoso. I last saw the patient in the clinic on 11/29/2023. On 05/31/2023, regarding her GOLD grade 2 group B COPD, she was clinically stable on Anoro Ellipta and rescue albuterol taking 1 time a month.? Activity level improved from 300 steps 1 to 2 times a day to 400 steps 1 to 2 times a day.? She is wearing 2 L nasal cannula and has to stop because of leg pain not because of breathing issues.? Her M MRC grade was 2, her CAT score was 20, she was not smoking.? I continued Anoro Ellipta and p.r.n. albuterol.? Her home O2 assessment demonstrated no oxygen at rest and 3 L with activity and I recommended this.? She is up-to-date on influenza and RSV vaccine and was unwilling to receive COVID boosters. On 05/31/2023, regarding her squamous cell lung cancer, she was status post 5500 cGy in 5 fractions with SBRT to the right lower lobe completed 01/05/2023. Scheduled to see Radiation Oncology, Dr. Jay, on 07/19/2023.? We requested prior CT scans and old PFTs. On 05/31/2023, regarding her ILD, she has rheumatoid arthritis with CT scan on 10/30/2022 with diffuse centrilobular emphysema in the apices and bases and mild basilar and peripheral predominant reticulations with mild honeycombing in the bases with no change compared to 04/10/2022 and progression from 08/11/2021.? 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 PFTs on 05/23/2023 with mild obstruction and mild restriction with decreased DLCO and compared to 12/07/2022 the DLCO had decreased with no change in spirometry or lung volumes.? She was following by Rafaela Snyder, [place] [facility] and on methotrexate 12.5 weekly. Patient follows with Dr. Cardoso at [facility]. Last seen on 11/13/2024. She had worsening dyspnea on exertion and weight loss. She is on 4 L nasal cannula with a weight of [address] scan on 08/16/2024 And compared to previous with decreased size of her right lower lobe nodule from 13.9-9 x 7 mm. She had multiple new left upper lobe and lingula nodules. The plan at that time was to give her course of antibiotics and repeat a CT scan in 8 weeks and if there was no improvement and cultures remain negative then to consider steroids for organizing pneumonia and/or rheumatoid nodules. on 11/06/2024 patient underwent bronchoscopy with EBUS and left upper lobe and lingula biopsies which showed ulcerated mucosa with underlying necrosis and acute inflammation. Transbronchial biopsies of the lingula is notable for benign bronchial wall and lung parenchymal with anthracotic pigment. Tissue cultures were negative for growth. The family tells me she did worse with the antibiotics on 11/24/2024 she was prescribed prednisone 30 mg a day for 1 week and then 20 mg a day after. She developed thrush and vaginal sores. On 01/06/2025 the patient presented to the emergency room with a sore mouth and a UTI but had no respiratory changes. She is on 4 L nasal cannula she was treated with Keflex. 01/08/2025 patient presented to the emergency room with shortness of breath. Her blood pressure is 120/72, heart rate 75, respirations 20, saturations on 4 L nasal cannula or 100%. White blood cell count 6.8, creatinine 0.74, BNP 3730, UA consistent with a UTI. MRSA swab was negative. COVID influenza, RSV, RT PCR assay negative. CT scan compared to 04/26/2024 showed new 6 mm nodule right middle lobe, 6 mm nodule right lower lobe, 11 mm nodule right lower lobe. Consolidative infiltrates or mass in the left upper lobe measuring 6 cm x 5.4 cm, mass in the inferior lingula 5 x 3.4 cm and mass in the superior segment left lower lobe 3 x 1.7 cm. patient was started on ceftriaxone and azithromycin On 01/09. On 01/10 this was changed to vancomycin, cefepime and azithromycin was continued. She was started on valacyclovir on 01/09. ABG on 01/10/2025 on 44% FiO2 7.45/38/60. Patient required CPAP for increased work of breathing. 01/12/2025: Patient had just received some Ativan and was awake and communicative on CPAP 10. She said it was somewhat hard to breathe on this and I changed her to noninvasive ventilator with the AVAPS mode and adjusted settings to comfort resulting in rate of 14, tidal volume 450, EPAP 5, minimum inspiratory pressure 6, maximal inspiratory pressure 25, inspiratory time 1.2, rise of 5 and 35% FiO2. she said this was more comfortable to breathe. White blood cell count 7.2, creatinine 0.65. CRP 6.2, BNP has decreased from 3730 on 01/08/2025 to 2500 today. Procalcitonin has decreased from 0.2 on 01/10/2025 to 0.1 today. Chest x-ray compared to 01/10/2025 with no change in her bilateral lung bases, left upper and mid lung zone infiltrates, small right pleural effusion. Later in the day patient was accepted for transfer to [facility]. Waiting for a bed. 01/13/25: Overall the patient states that she is about the same as yesterday. She was off the noninvasive ventilation throughout yesterday afternoon and wore the noninvasive ventilator from 11 p.m. to 3:00 a.m. this morning. She had to take the mask off because it was painful and the air was not comfortable. She still has shortness of breath at rest. When I enter the room she was on 4 L with saturations 98% and she was in mild respiratory distress. I placed her on the noninvasive ventilator with the AVAPS mode and adjusted the settings to comfort and changed her rise from 5 to 3 and changed her inspiratory time from 1.2 to 1.0. She said this was more comfortable and she actually fell a sleep. Her white blood cell count of 7.2, creatinine is 0.64. She is afebrile. Yesterday she diuresed 1 L and cumulative since admission she has diuresed 785 mL. Her weight today is 57.7 kg. Her chest x-ray shows unchanged right lower lobe, left upper and mid lung zone infiltrates and a small right pleural effusion all with no change from 01/12/2025. 01/14/25: Overall the patient states that she feels the same. She has shortness of breath at rest. Yesterday she required noninvasive ventilation intermittently for 1-2 hours throughout the day. She for the noninvasive ventilator from 10-2 a.m. last night and has been on 4 L nasal cannula since then. When I entered the room the patient had wheezing and was in mild respiratory distress on 4 L nasal cannula saturations 98%. I placed her on the noninvasive ventilator and called Respiratory therapy for a DuoNeb treatment. Overall she said that her cough and phlegm are unchanged with no hemoptysis. She is afebrile. White blood cell count 7.2, creatinine 0.63. BNP has increased from 2500 on 01/12/2025 to 5030 today. she is positive 1.08 L yesterday. Cumulative she is positive 294 mL since admission. Her weight today is 60.1. She complains of anxiety and is hard for her to tell if shortness of breath causes the anxiety or for anxiety causes shortness of breath. DATA: 01/12/25: EXAMINATION: XR chest 1V portable INDICATION: Pneumonia TECHNIQUE: frontal view of the chest was obtained. COMPARISON: Chest radiograph dated 01/10/2025 FINDINGS: Unchanged elevation left hemidiaphragm. Also unchanged are airspace opacity left mid and upper lung zone with prominent masslike suprahilar opacity. Stable appearance of additional reticular and airspace opacities at the bilateral lung bases including small right pleural effusion. No pneumothorax. Cardiomegaly. Right upper extremity peripherally inserted central venous catheter (PICC) tip at the superior cavoatrial junction. Calcified left hilar lymph nodes consistent with old granulomatous disease. IMPRESSION: 1. Stable appearance of airspace opacities at the bilateral lung bases more prominently in the left mid and upper lung zone which could represent atelectasis, pneumonia, malignancy or some combination thereof. 2. Small right pleural effusion. 3. Cardiomegaly. 01/09/25: EXAMINATION: CTA chest PE protocol INDICATION: Shortness of breath. COMPARISON: Chest CTA 04/26/2024, chest CT 01/01/2019. FINDINGS: There is severe emphysema. There are changes of right upper lobectomy. There is a new 6 mm nodule in right middle lobe. There is a new 6 mm nodule in right lower lobe. There is a new 11 mm nodule in right lower lobe. There are dependent airspace opacities in basilar right lower lobe. There are patchy airspace opacities in left upper lobe and left lower lobe. There are small pleural effusions, left worse than right. Calcified left lung nodules and calcified left hilar lymph nodes are consistent with old granulomatous disease. Cardiomegaly is noted. There are coronary artery calcifications. There is no pulmonary embolus. The central pulmonary is enlarged, consistent with pulmonary arterial hypertension. Calcifications in the spleen are consistent with old granulomatous disease. Prominent left breast tissue is chronic and likely benign. There is severe cervical spondylosis and moderate thoracic spondylosis. IMPRESSION: 1. Multifocal lung disease, left worse than right, consistent with pneumonia. Some component of metastatic disease may also be present. Follow-up chest CT after resolution of pneumonia is recommended. 2. Small pleural effusions. 3. Severe emphysema. 4. No pulmonary embolus. 07/03/2024: PFTs interpretation from progress note mild obstructive ventilatory limitation with mack Mitten moderate to severe restriction. There is a very severe diffusion impairment. No values were listed. 04/26/2024; Summary 1. Normal LV size and presereved LV systolic function with sigmoid shaped IVS. 2. Normal RV size and function. 3. Mild TR with mod PHTN. 4. Mild AR with sclerotic AV. PASP 51. Review of Systems Constitutional: Constitutional: Reports no additional constitutional complaints Eyes: Eyes: Reports no additional eye complaints ENT: Reports system reviewed and no additional complaints, except as documented Cardiovascular: Cardiovascular: Reports no additional cardiovascular complaints Respiratory: Respiratory: Reports no additional respiratory complaints Gastrointestinal: Gastrointestinal: Reports no additional gastrointestinal complaints Musculoskeletal: Musculoskeletal: Reports no additional musculoskeletal complaints Neurologic: Reports system reviewed and no additional complaints, except as documented Psychiatric: Psychiatric: Reports no additional psychiatric complaints Endocrine: Endocrine: Reports no additional endocrine complaints Hematologic/Lymphatic: Hematologic/Lymphatic: Reports no additional hematologic/lymphatic complaints Allergic/Immunologic: Allergic/Immunologic: Reports no additional allergic/immunologic complaints Exam Const: General: cooperative and no acute distress Orientation/consciousness: oriented to person, oriented to place and oriented to time Other: on NIV HENMT: Head: normal to inspection Ears: hearing grossly normal bilaterally Other: on NIV Eyes: General: appearance normal, both eyes and all related structures Neck: Neck: normal visual inspection Chest: Chest palpation & inspection: normal inspection of the chest Resp: Effort & Inspection: normal respiratory effort and able to speak in complete sentences Auscultation: no crackles, no rales, no rhonchi, wheezes and diminished lung sounds Other: Expiratory wheezes throughout Cardio: Jugular venous distension: no JVD GI: Inspection: normal to inspection Skin: General skin exam: normal color Neuro: General: oriented to person, oriented to place and oriented to time Extrem: General: normal to inspection and no edema Psych: Appearance: grossly normal Objective Data Vital Signs Vital Signs: Vital Signs - 24 hr 01/13/25 09:15 01/13/25 10:00 01/13/25 11:28 Temperature 36.6 C Pulse Rate 110 H 102 H Respiratory Rate 27 H Blood Pressure 129/72 Pulse Oximetry 100 90 Oxygen Delivery Nasal Cannula Oxygen Flow Rate 3 Fraction of Inspired Oxygen 01/13/25 11:34 01/13/25 11:35 01/13/25 11:43 Temperature Pulse Rate 101 H 97 94 Respiratory Rate 22 H 21 H Blood Pressure Pulse Oximetry 94 Oxygen Delivery Oxygen Flow Rate Fraction of Inspired Oxygen 01/13/25 12:00 01/13/25 12:00 01/13/25 14:00 Temperature Pulse Rate 94 104 H 96 Respiratory Rate 21 H Blood Pressure Pulse Oximetry 94 Oxygen Delivery Nasal Cannula Oxygen Flow Rate 4 Fraction of Inspired Oxygen 01/13/25 15:58 01/13/25 16:00 01/13/25 16:00 Temperature 36.8 C Pulse Rate 97 99 83 Respiratory Rate 24 H 20 Blood Pressure 119/70 Pulse Oximetry 94 94 Oxygen Delivery Nasal Cannula Oxygen Flow Rate 4 Fraction of Inspired Oxygen 01/13/25 16:09 01/13/25 16:17 01/13/25 18:00 Temperature Pulse Rate 83 83 96 Respiratory Rate 20 20 Blood Pressure Pulse Oximetry Oxygen Delivery Oxygen Flow Rate Fraction of Inspired Oxygen 01/13/25 20:00 01/13/25 20:00 01/13/25 20:00 Temperature 36.7 C Pulse Rate 109 H 100 100 Respiratory Rate 24 H 20 Blood Pressure 122/73 Pulse Oximetry 99 99 Oxygen Delivery BiPAP Oxygen Flow Rate Fraction of Inspired Oxygen 35 01/13/25 20:34 01/13/25 20:35 01/13/25 20:47 Temperature Pulse Rate 106 H 109 H 102 H Respiratory Rate 20 20 20 Blood Pressure Pulse Oximetry 99 Oxygen Delivery Nasal Cannula Oxygen Flow Rate 4 Fraction of Inspired Oxygen 01/13/25 22:00 01/13/25 22:00 01/14/25 00:00 Temperature 36.6 C Pulse Rate 102 H 86 64 Respiratory Rate 18 24 H Blood Pressure 120/64 Pulse Oximetry 99 99 Oxygen Delivery Oxygen Flow Rate Fraction of Inspired Oxygen 01/14/25 00:00 01/14/25 00:00 01/14/25 00:15 Temperature Pulse Rate 95 95 99 Respiratory Rate 24 H 19 Blood Pressure Pulse Oximetry 99 99 Oxygen Delivery BiPAP Oxygen Flow Rate Fraction of Inspired Oxygen 35 01/14/25 00:18 01/14/25 00:31 01/14/25 02:00 Temperature Pulse Rate 95 95 84 Respiratory Rate 99 H 99 H Blood Pressure Pulse Oximetry Oxygen Delivery Oxygen Flow Rate Fraction of Inspired Oxygen 01/14/25 04:00 01/14/25 04:00 01/14/25 04:00 Temperature 36.6 C Pulse Rate 93 100 98 Respiratory Rate 24 H 20 Blood Pressure 131/74 Pulse Oximetry 100 100 Oxygen Delivery Nasal Cannula Oxygen Flow Rate 4 Fraction of Inspired Oxygen 35 01/14/25 04:28 01/14/25 04:30 01/14/25 04:42 Temperature Pulse Rate 101 H 101 H 100 Respiratory Rate 20 20 Blood Pressure Pulse Oximetry 100 Oxygen Delivery Nasal Cannula Oxygen Flow Rate Fraction of Inspired Oxygen 01/14/25 05:31 01/14/25 07:42 01/14/25 07:59 Temperature 36.8 C Pulse Rate 92 105 H 106 H Respiratory Rate 22 H 27 H Blood Pressure 130/84 Pulse Oximetry 98 Oxygen Delivery Oxygen Flow Rate Fraction of Inspired Oxygen 01/14/25 08:00 01/14/25 08:00 01/14/25 08:04 Temperature Pulse Rate 104 H 96 106 H Respiratory Rate 26 H 27 H Blood Pressure Pulse Oximetry 95 95 Oxygen Delivery Nasal Cannula Oxygen Flow Rate 4 Fraction of Inspired Oxygen 35 01/14/25 08:09 Temperature Pulse Rate 104 H Respiratory Rate 26 H Blood Pressure Pulse Oximetry Oxygen Delivery Oxygen Flow Rate Fraction of Inspired Oxygen Intake/Output Intake/Output: Intake & Output 01/11/25 01/12/25 01/13/25 01/14/25 23:59 23:59 23:59 23:59 Intake Total 1230 1240 1579.2 250 Output Total 350 1800 500 500 Balance 880 -560 1079.2 -250 Meds/Results Medications: Active Medications Generic Name Dose Route Start Last Admin Trade Name Freq PRN Reason Stop Dose Admin Acetaminophen 650 mg 01/09/25 17:19 01/13/25 20:35 Acetaminophen 325 Mg Tablet PO 650 mg Q4H PRN Administration Mild Pain (1-3) Albuterol/Ipratropium 3 ml 01/11/25 13:55 Ipratropium 0.5 Mg/Albuterol Sulfate 2.5 Mg Ampul.Neb 3 Ml INHALATION Q4HRT PRN Wheezing Albuterol/Ipratropium 3 ml 01/12/25 12:00 01/14/25 07:59 Ipratropium 0.5 Mg/Albuterol Sulfate 2.5 Mg Ampul.Neb 3 Ml INHALATION 3 ml Q4HRT CHENG Administration Apixaban 5 mg 01/09/25 21:00 01/13/25 20:33 Apixaban 5 Mg Tablet BY MOUTH 5 mg Q12HR CHENG Administration Calcium Carbonate 500 mg 01/10/25 09:00 01/10/25 09:21 Calcium/Vitamin D 500 Mg/5 Mcg (200 I.U.) Tablet PO 500 mg On Hold: 01/10/25 12:28 QAM CHENG Administration Clotrimazole 10 mg 01/09/25 17:00 01/13/25 20:33 Clotrimazole 10 Mg Troc MUCOUS MEM 01/20/25 23:59 10 mg QID CHENG Administration Dextrose 12.5 gm 01/10/25 12:29 Dextrose 50% 25 Gm/50 Ml Syringe IV PUSH PRN PRN Hypoglycemia Protocol Diltiazem HCl 120 mg 01/10/25 09:00 01/13/25 09:17 Diltiazem Hcl Cd 120 Mg Cap.24hr BY MOUTH 120 mg DAILY CHENG Administration Famotidine 20 mg 01/10/25 21:00 01/13/25 20:47 Famotidine 20 Mg/2 Ml Vial IV PUSH 20 mg Q12HR CHENG Administration Folic Acid 1 mg 01/10/25 09:00 01/13/25 09:17 Folic Acid 1 Mg Tablet PO 1 mg DAILY CHENG Administration Glucagon 1 mg 01/10/25 12:29 Glucagon For Inj 1 Mg Vial IM PRN PRN Hypoglycemia Protocol Glucose 15 gm 01/10/25 12:29 Glucose Oral Gel 15 Gm Of Glucse In 37.5 Gm Tube PO PRN PRN Hypoglycemia Protocol Guaifenesin 1,200 mg 01/12/25 21:00 01/13/25 20:33 Guaifenesin 12 Hr 600 Mg Tabcr PO 1,200 mg Q12HR CHENG Administration Cefepime HCl 2 gm/ Sodium 50 mls @ 100 mls/hr 01/10/25 21:00 01/13/25 21:05 Chloride IVPB Infused Q12HR CHENG Infusion Dextrose 1,000 mls @ 100 mls/hr 01/10/25 12:29 Dextrose 5% 1,000 Ml IVPB PRN PRN Hypoglycemia Protocol Vancomycin HCl 1,500 mg in 500 mls @ 250 mls/hr 01/12/25 12:00 01/13/25 12:53 Vancomycin 1,500 Mg/Ns 500 Ml IVPB 01/14/25 13:59 250 mls/hr Q24H CHENG Administration Sodium Chloride 1,000 mls @ 50 mls/hr 01/13/25 04:50 01/13/25 23:56 Normal Saline Iv IV CONT 50 mls/hr .Q20H CHENG Administration Insulin Aspart 3 - 6 units 01/13/25 12:00 01/13/25 18:27 Insulin Aspart (*Bkc) 100 Units/Ml SUB-Q Not Given TIDWM CHENG Protocol Insulin Aspart 1 - 2 units 01/13/25 21:00 01/13/25 22:09 Insulin Aspart (*Bkc) 100 Units/Ml SUB-Q Not Given HS CHENG Protocol Labetalol HCl 20 mg 01/10/25 12:30 Labetalol Hcl Inj 100 Mg/20 Ml Vial IV PUSH Q4H PRN SBP > 160 and HR> 60 -1st choice Lorazepam 0.5 mg 01/13/25 20:45 01/13/25 22:11 Lorazepam (*Crx) 0.5 Mg Tablet PO 0.5 mg QHS PRN Administration Anxiety Losartan Potassium 25 mg 01/10/25 09:00 01/13/25 09:17 Losartan Potassium 25 Mg Tablet PO 25 mg QAM CHENG Administration Ondansetron HCl 4 mg 01/11/25 08:10 01/11/25 08:18 Ondansetron Inj 4 Mg/2 Ml Vial IV PUSH 4 mg Q4H PRN Administration Nausea And Vomiting Prednisone 40 mg 01/13/25 08:00 01/13/25 09:17 Prednisone 20 Mg Tablet PO 40 mg DAILY@0800 CHENG Administration Sodium Chloride 10 ml 01/10/25 14:00 01/14/25 06:08 Central Line Flush IV PUSH 10 ml Q8HR CHENG Administration Sodium Chloride 10 ml 01/10/25 13:24 Central Line Flush IV PUSH PRN PRN with TPN bag changes Sodium Chloride 20 ml 01/10/25 13:24 Central Line Flush IV PUSH PRN PRN after blood draws Valacyclovir HCl 1,000 mg 01/09/25 21:00 01/13/25 20:33 Valacyclovir Hcl 500 Mg Tablet PO 1,000 mg Q12HR CHENG Administration Radiology Results: ITS Impressions Chest CTA 01/10/25 08:55 IMPRESSION: 1. Multifocal lung disease, left worse than right, consistent with pneumonia. Some component of metastatic disease may also be present. Follow-up chest CT after resolution of pneumonia is recommended. 2. Small pleural effusions. 3. Severe emphysema. 4. No pulmonary embolus. Chest X-Ray 01/13/25 08:15 Impression: Bilateral pneumonia superimposed on chronic lung disease. Findings are progressed compared to the previous study Labs Labs: Laboratory Results - last 24 hr 01/09/25 01/10/25 01/13/25 16:51 05:50 10:51 WBC RBC Hgb Hct MCV MCH MCHC RDW Plt Count MPV Sodium 128 L Potassium 4.0 Chloride 93 L Carbon Dioxide 29 Anion Gap 6 BUN 24 H Creatinine 0.62 L Estim Creat Clear Calc 57 Estimated GFR > 60 Glucose 107 POC Capillary Glucose Hemoglobin A1c Calcium 7.5 L Magnesium Total Bilirubin AST ALT Alkaline Phosphatase NT-Pro-B Natriuret Pep Total Protein Albumin Chlamy pneumoniae PCR Not detected Adenovirus (PCR) Not detected B. pertussis DNA (PCR) Not detected B.parapertussis DNA PCR Not detected Coronavirus OC43 (PCR) Not detected Coronavirus HKU1 (PCR) Not detected Coronavirus 229E (PCR) Not detected Coronavirus NL63 (PCR) Not detected Human Metapneumovir PCR Not detected Influenza A (H1) PCR Not detected Influ A () PCR Not detected Influenza A (H3) PCR Not detected Influenza Type A (PCR) Not detected Influenza Type B (PCR) Not detected M. pneumoniae (PCR) Not detected Parainfluenza 1 (PCR) Not detected Parainfluenza 2 (PCR) Not detected Parainfluenza 3 (PCR) Not detected Parainfluenza 4 (PCR) Not detected RSV (PCR) Not detected Entero/Rhino (PCR) Not detected SARS-CoV-2 (PCR) Not detected TB Test (QFT) Gold Plus Negative TB (QFT) Incubation TB Test (QFT) Nil 0.17 TB Test (QFT) Mitogen >10.00 TB Test (QFT) +TB1 -NIL 0.17 TB Test (QFT) +TB2 -NIL 0.20 TB Test (QFT) Criteria Comment 01/13/25 01/13/25 01/13/25 11:17 15:35 20:05 WBC RBC Hgb Hct MCV MCH MCHC RDW Plt Count MPV Sodium Potassium Chloride Carbon Dioxide Anion Gap BUN Creatinine Estim Creat Clear Calc Estimated GFR Glucose POC Capillary Glucose 111 H 138 H 119 H Hemoglobin A1c Calcium Magnesium Total Bilirubin AST ALT Alkaline Phosphatase NT-Pro-B Natriuret Pep Total Protein Albumin Chlamy pneumoniae PCR Adenovirus (PCR) B. pertussis DNA (PCR) B.parapertussis DNA PCR Coronavirus OC43 (PCR) Coronavirus HKU1 (PCR) Coronavirus 229E (PCR) Coronavirus NL63 (PCR) Human Metapneumovir PCR Influenza A (H1) PCR Influ A () PCR Influenza A (H3) PCR Influenza Type A (PCR) Influenza Type B (PCR) M. pneumoniae (PCR) Parainfluenza 1 (PCR) Parainfluenza 2 (PCR) Parainfluenza 3 (PCR) Parainfluenza 4 (PCR) RSV (PCR) Entero/Rhino (PCR) SARS-CoV-2 (PCR) TB Test (QFT) Gold Plus TB (QFT) Incubation TB Test (QFT) Nil TB Test (QFT) Mitogen TB Test (QFT) +TB1 -NIL TB Test (QFT) +TB2 -NIL TB Test (QFT) Criteria 01/14/25 01/14/25 05:59 07:27 WBC 7.2 RBC 2.70 L Hgb 8.1 L Hct 27.4 L MCV 101.5 H MCH 30.0 MCHC 29.6 L RDW 19.7 H Plt Count 319 MPV 9.3 Sodium 130 L Potassium 3.7 Chloride 98 Carbon Dioxide 30 Anion Gap 2 L BUN 20 H Creatinine 0.63 L Estim Creat Clear Calc 56 Estimated GFR > 60 Glucose 91 POC Capillary Glucose 99 Hemoglobin A1c 5.3 Calcium 7.4 L Magnesium 2.2 Total Bilirubin 0.3 AST 26 ALT 13 Alkaline Phosphatase 54 NT-Pro-B Natriuret Pep 5030 H Total Protein 4.9 L Albumin 2.4 L Chlamy pneumoniae PCR Adenovirus (PCR) B. pertussis DNA (PCR) B.parapertussis DNA PCR Coronavirus OC43 (PCR) Coronavirus HKU1 (PCR) Coronavirus 229E (PCR) Coronavirus NL63 (PCR) Human Metapneumovir PCR Influenza A (H1) PCR Influ A (H1/09) PCR Influenza A (H3) PCR Influenza Type A (PCR) Influenza Type B (PCR) M. pneumoniae (PCR) Parainfluenza 1 (PCR) Parainfluenza 2 (PCR) Parainfluenza 3 (PCR) Parainfluenza 4 (PCR) RSV (PCR) Entero/Rhino (PCR) SARS-CoV-2 (PCR) TB Test (QFT) Gold Plus TB (QFT) Incubation TB Test (QFT) Nil TB Test (QFT) Mitogen TB Test (QFT) +TB1 -NIL TB Test (QFT) +TB2 -NIL TB Test (QFT) Criteria
[2025-01-14] MEDS: APIXABAN 5 MG TABLET BY MOUTH (09:02)
[2025-01-14] MEDS: CEFEPIME 2 GM in SODIUM CHLORIDE 0.9% IV 50 ML 100 ML IVPB (09:02)
[2025-01-14] MEDS: LOSARTAN POTASSIUM 25 MG TABLET PO (09:03)
[2025-01-14] MEDS: guaiFENesin 12 HR 600 MG TABCR 1200 MG PO (09:03)
[2025-01-14] MEDS: FOLIC ACID 1 MG TABLET PO (09:03)
[2025-01-14] MEDS: CLOTRIMAZOLE 10 MG TROC MUCOUS MEM (09:03)
[2025-01-14] MEDS: dilTIAZem HCL CD 120 MG CAP.24HR BY MOUTH (09:03)
[2025-01-14] MEDS: FAMOTIDINE 20 MG/2 ML VIAL IV PUSH (09:05)
[2025-01-14] MEDS: ACETAMINOPHEN 325 MG TABLET 650 MG PO (09:46)
--- NOTE | 2025-01-14 10:36 | PC.NURSE ---
Placed patient on BIPAP at 0800am. Patient came off BIPAP at approximately 0930 and then right back on BIPAP at approximately 1015. Anxiety remains high. Just started on BuSpar this morning (see eMAR for dosing), first dose given. Discussed side affects of medication with patient and family member. Verbalized understanding, however reinforcement maybe necessary.
--- NOTE | 2025-01-14 10:44 | PC.NURSE ---
Patient experiencing a sense of doom stating I know that I am going to here. This RN discussed with patient and family member options related to care, including wearing her BIPAP for longer periods of time and even discussed palliative care/hospice care if needed. Patient daughter at the bedside for discussion and both patient and family member verbalizes understanding.
--- NOTE | 2025-01-14 10:52 | PCNFU ---
Nutrition Follow-Up Complete: Inadequate oral intake related to loss of appetite, as evidenced by intakes, pt report of poor appetite PO intake >50%- Slow progress to goal, intake are poor to fair Goal: Pt current nutrition is Regular diet. Ensure + high protein BID (350 kcal, 20 g protein each). Nutrition recommendation: No new recommendations. Continue current nutrition care plan and orders. Last recorded weight is 60.1 kg. Bowel Motility: +1 01/10/25 Labs Reviewed: Hgb 8.1, Hct 27.4, Alb 2.4, Na 130, BUN 20, Cre 0.63 Meds Noted: Eliquis, folic acid, prednisone, novolog, Zofran Skin: No skin issues noted Additional Notes: Awaiting transfer to [facility] for lung cancer, respiratory failure. Requiring BiPap at night. Monitoring intakes, weights, labs, supplement tolerance, plan of care Follow up in 5 days
--- NOTE | 2025-01-14 11:00 | P.PNIM_ITS ---
Progress Note: A&P Assessment and Plan (1) Acute and chronic respiratory failure: Code(s): J96.20 - Acute and chronic respiratory failure, unspecified whether with hypoxia or hypercapnia Status: Acute (2) Mass of right lung: Code(s): R91.8 - Other nonspecific abnormal finding of lung field Status: Acute (3) Pneumonia: Code(s): J18.9 - Pneumonia, unspecified organism Status: Acute (4) Atrial fibrillation: Qualifiers: Atrial fibrillation type: paroxysmal Qualified Code(s): I48.0 - Paroxysmal atrial fibrillation Code(s): I48.91 - Unspecified atrial fibrillation Status: Acute (5) Squamous cell carcinoma of lung: Qualifiers: Laterality: right Qualified Code(s): C34.91 - Malignant neoplasm of unspecified part of right bronchus or lung Code(s): C34.90 - Malignant neoplasm of unspecified part of unspecified bronchus or lung Status: Acute (6) Chronic obstructive pulmonary disease, unspecified: Qualifiers: COPD type: unspecified COPD Qualified Code(s): J44.9 - Chronic obstructive pulmonary disease, unspecified Code(s): J44.9 - Chronic obstructive pulmonary disease, unspecified Status: Acute Plan MRSA swab was negative. COVID influenza, RSV, RT PCR assay negative. CT scan compared to 04/26/2024 showed new 6 mm nodule right middle lobe, 6 mm nodule rig ht lower lobe, 11 mm nodule right lower lobe. Consolidative infiltrates or mass in the left upper lobe measuring 6 cm x 5.4 cm, mass in the inferior lingula 5 x 3.4 cm and mass in the superior segment left lower lobe 3 x 1.7 cm. Patient was started on ceftriaxone and azithromycin on 01/09. On 01/10 this was changed to vancomycin, cefepime. She completed 5 days of azithromycin. She was started on valacyclovir on 01/09. ABG on 01/10/2025 on 44% FiO2 7.45/38/60. Patient required CPAP for increased work of breathing. Pulmonary was consulted, changed to AVAPS. She has h/o SC Lung CA status post robotic assisted right upper lobectomy 08/2021 for T1b N0 squamous cell carcinoma and SBRT to right lower lobe, completed in 12/2022. Completed SBRT to left upper lung, in 08/2023. 0n 11/06/2024 patient underwent bronchoscopy with EBUS and left upper lobe and lingula biopsies which showed ulcerated mucosa with underlying necrosis and acute inflammation. Transbronchial biopsies of the lingula is notable for benign bronchial wall and lung parenchymal with anthracotic pigment. Tissue cultures were negative for growth. Was prescribed abx, steroids but without much benefit. She continued to have symptoms and presented to ER on 01/08/25. After discussing with her outpatient group sales manager, decision was made to transfer to higher level of care at tertiary care hospital, might benefit from Pulmonary, CT surgery and Rheumatology eval. Patient [facility] been [facility]. Vancomycin to be stopped after 5 days of treatment today. Buspar added. BNP 5K. Renal fxn and BP okay so Lasix IV once given and will stop IV fluids. +Fluid balance but only +300mL. Discussed with pulmonary and appreciate their input. Awaiting bed availability. Code status - modified DVT prophylaxis - Eliquis Subjective Date/time seen: 01/14/25 11:00 Interval history: 74-year-old with a history of hypertension, AFib, lung cancer, COPD, interstitial lung disease, rheumatoid arthritis presented with worsening SOB. Assuming care. Chart reviewed. Patient wore BiPAP overnight for about 4 hours. She becomes anxious then more short of breath requiring BiPAP. After wearing BiPAP for few hours, she becomes anxious with the BiPAP and asked to have it taken off. She denies chest pain. She was able to sleep for a few hours with the BiPAP. She thinks she is eating better. She has not been out of bed because hypoxia with minimal exertion. Exam Narrative: AF 98.2 130/84 106 26 95% bipap General: Mildly tachypneic Lungs/Chest: coarse breath sounds with expiratory wheezes. Cardiac: Irregular rate and rhythm. Normal S1 S2. No murmurs. Telemetry showing AFib/AFlutter and mild tachycardia Abdomen: Normal bowel sounds.. Soft. NT. ND. : Ppoe secured draining clear yellow urine. Extremities: No clubbing, cyanosis or edema. Warm Neurologic: Alert and appropriate Psych: Calm. Appears comfortable on BiPAP Skin: Bruising on legs Objective Data Vital Signs Vital Signs: Vital Signs - 24 hr 01/13/25 11:28 01/13/25 11:34 01/13/25 11:35 Temperature 98 F Pulse Rate 102 H 101 H 97 Respiratory Rate 27 H 22 H Blood Pressure 129/72 Pulse Oximetry 90 94 Oxygen Delivery Oxygen Flow Rate Fraction of Inspired Oxygen 01/13/25 11:43 01/13/25 12:00 01/13/25 12:00 Temperature Pulse Rate 94 94 104 H Respiratory Rate 21 H 21 H Blood Pressure Pulse Oximetry 94 Oxygen Delivery Nasal Cannula Oxygen Flow Rate 4 Fraction of Inspired Oxygen 01/13/25 14:00 01/13/25 15:58 01/13/25 16:00 Temperature 98.3 F Pulse Rate 96 97 99 Respiratory Rate 24 H Blood Pressure 119/70 Pulse Oximetry 94 Oxygen Delivery Oxygen Flow Rate Fraction of Inspired Oxygen 01/13/25 16:00 01/13/25 16:09 01/13/25 16:17 Temperature Pulse Rate 83 83 83 Respiratory Rate 20 20 20 Blood Pressure Pulse Oximetry 94 Oxygen Delivery Nasal Cannula Oxygen Flow Rate 4 Fraction of Inspired Oxygen 01/13/25 18:00 01/13/25 20:00 01/13/25 20:00 Temperature 98.1 F Pulse Rate 96 109 H 100 Respiratory Rate 24 H 20 Blood Pressure 122/73 Pulse Oximetry 99 99 Oxygen Delivery BiPAP Oxygen Flow Rate Fraction of Inspired Oxygen 35 01/13/25 20:00 01/13/25 20:34 01/13/25 20:35 Temperature Pulse Rate 100 106 H 109 H Respiratory Rate 20 20 Blood Pressure Pulse Oximetry 99 Oxygen Delivery Nasal Cannula Oxygen Flow Rate 4 Fraction of Inspired Oxygen 01/13/25 20:47 01/13/25 22:00 01/13/25 22:00 Temperature Pulse Rate 102 H 102 H 86 Respiratory Rate 20 18 Blood Pressure Pulse Oximetry 99 Oxygen Delivery Oxygen Flow Rate Fraction of Inspired Oxygen 01/14/25 00:00 01/14/25 00:00 01/14/25 00:00 Temperature 98 F Pulse Rate 64 95 95 Respiratory Rate 24 H 24 H Blood Pressure 120/64 Pulse Oximetry 99 99 Oxygen Delivery BiPAP Oxygen Flow Rate Fraction of Inspired Oxygen 35 01/14/25 00:15 01/14/25 00:18 01/14/25 00:31 Temperature Pulse Rate 99 95 95 Respiratory Rate 19 99 H 99 H Blood Pressure Pulse Oximetry 99 Oxygen Delivery Oxygen Flow Rate Fraction of Inspired Oxygen 01/14/25 02:00 01/14/25 04:00 01/14/25 04:00 Temperature 97.9 F Pulse Rate 84 93 100 Respiratory Rate 24 H 20 Blood Pressure 131/74 Pulse Oximetry 100 100 Oxygen Delivery Nasal Cannula Oxygen Flow Rate 4 Fraction of Inspired Oxygen 35 01/14/25 04:00 01/14/25 04:28 01/14/25 04:30 Temperature Pulse Rate 98 101 H 101 H Respiratory Rate 20 Blood Pressure Pulse Oximetry 100 Oxygen Delivery Nasal Cannula Oxygen Flow Rate Fraction of Inspired Oxygen 01/14/25 04:42 01/14/25 05:31 01/14/25 07:42 Temperature 98.2 F Pulse Rate 100 92 105 H Respiratory Rate 20 22 H Blood Pressure 130/84 Pulse Oximetry 98 Oxygen Delivery Oxygen Flow Rate Fraction of Inspired Oxygen 01/14/25 07:59 01/14/25 08:00 01/14/25 08:00 Temperature Pulse Rate 106 H 104 H 96 Respiratory Rate 27 H 26 H Blood Pressure Pulse Oximetry 95 Oxygen Delivery Nasal Cannula Oxygen Flow Rate 4 Fraction of Inspired Oxygen 35 01/14/25 08:04 01/14/25 08:09 01/14/25 09:30 Temperature Pulse Rate 106 H 104 H 106 H Respiratory Rate 27 H 26 H 26 H Blood Pressure Pulse Oximetry 95 95 Oxygen Delivery Nasal Cannula Oxygen Flow Rate 4 Fraction of Inspired Oxygen 35 01/14/25 10:00 01/14/25 10:15 Temperature Pulse Rate 106 H 106 H Respiratory Rate 26 H Blood Pressure Pulse Oximetry 95 Oxygen Delivery BiPAP Oxygen Flow Rate Fraction of Inspired Oxygen 35 Intake/Output Intake/Output: Intake & Output 01/11/25 01/12/25 01/13/25 01/14/25 23:59 23:59 23:59 23:59 Intake Total 1230 1240 1579.2 250 Output Total 350 1800 500 500 Balance 880 -560 1079.2 -250 Meds/Results Medications: Active Medications Generic Name Dose Route Start Last Admin Trade Name Freq PRN Reason Stop Dose Admin Acetaminophen 650 mg 01/09/25 17:19 01/14/25 09:46 Acetaminophen 325 Mg Tablet PO 650 mg Q4H PRN Administration Mild Pain (1-3) Albuterol/Ipratropium 3 ml 01/11/25 13:55 Ipratropium 0.5 Mg/Albuterol Sulfate 2.5 Mg Ampul.Neb 3 Ml INHALATION Q4HRT PRN Wheezing Albuterol/Ipratropium 3 ml 01/12/25 12:00 01/14/25 07:59 Ipratropium 0.5 Mg/Albuterol Sulfate 2.5 Mg Ampul.Neb 3 Ml INHALATION 3 ml Q4HRT CHENG Administration Apixaban 5 mg 01/09/25 21:00 01/14/25 09:02 Apixaban 5 Mg Tablet BY MOUTH 5 mg Q12HR CHENG Administration Buspirone HCl 5 mg 01/14/25 09:00 01/14/25 09:54 Buspirone Hcl 5 Mg Tablet PO 5 mg Q12HR CHENG Administration Calcium Carbonate 500 mg 01/10/25 09:00 01/10/25 09:21 Calcium/Vitamin D 500 Mg/5 Mcg (200 I.U.) Tablet PO 500 mg On Hold: 01/10/25 12:28 QAM CHENG Administration Clotrimazole 10 mg 01/09/25 17:00 01/14/25 09:03 Clotrimazole 10 Mg Troc MUCOUS MEM 01/20/25 23:59 10 mg QID CHENG Administration Dextrose 12.5 gm 01/10/25 12:29 Dextrose 50% 25 Gm/50 Ml Syringe IV PUSH PRN PRN Hypoglycemia Protocol Diltiazem HCl 120 mg 01/10/25 09:00 01/14/25 09:03 Diltiazem Hcl Cd 120 Mg Cap.24hr BY MOUTH 120 mg DAILY CHENG Administration Famotidine 20 mg 01/10/25 21:00 01/14/25 09:05 Famotidine 20 Mg/2 Ml Vial IV PUSH 20 mg Q12HR CHENG Administration Folic Acid 1 mg 01/10/25 09:00 01/14/25 09:03 Folic Acid 1 Mg Tablet PO 1 mg DAILY CHENG Administration Glucagon 1 mg 01/10/25 12:29 Glucagon For Inj 1 Mg Vial IM PRN PRN Hypoglycemia Protocol Glucose 15 gm 01/10/25 12:29 Glucose Oral Gel 15 Gm Of Glucse In 37.5 Gm Tube PO PRN PRN Hypoglycemia Protocol Guaifenesin 1,200 mg 01/12/25 21:00 01/14/25 09:03 Guaifenesin 12 Hr 600 Mg Tabcr PO 1,200 mg Q12HR CHENG Administration Cefepime HCl 2 gm/ Sodium 50 mls @ 100 mls/hr 01/10/25 21:00 01/14/25 09:02 Chloride IVPB 100 mls/hr Q12HR CHENG Administration Dextrose 1,000 mls @ 100 mls/hr 01/10/25 12:29 Dextrose 5% 1,000 Ml IVPB PRN PRN Hypoglycemia Protocol Vancomycin HCl 1,500 mg in 500 mls @ 250 mls/hr 01/12/25 12:00 01/13/25 12:53 Vancomycin 1,500 Mg/Ns 500 Ml IVPB 01/14/25 13:59 250 mls/hr Q24H CHENG Administration Sodium Chloride 1,000 mls @ 50 mls/hr 01/13/25 04:50 01/13/25 23:56 Normal Saline Iv IV CONT 50 mls/hr .Q20H CHENG Administration Insulin Aspart 3 - 6 units 01/13/25 12:00 01/14/25 09:52 Insulin Aspart (*Bkc) 100 Units/Ml SUB-Q Not Given TIDWM CHENG Protocol Insulin Aspart 1 - 2 units 01/13/25 21:00 01/13/25 22:09 Insulin Aspart (*Bkc) 100 Units/Ml SUB-Q Not Given HS CHENG Protocol Labetalol HCl 20 mg 01/10/25 12:30 Labetalol Hcl Inj 100 Mg/20 Ml Vial IV PUSH Q4H PRN SBP > 160 and HR> 60 -1st choice Lorazepam 0.5 mg 01/13/25 20:45 01/13/25 22:11 Lorazepam (*Crx) 0.5 Mg Tablet PO 0.5 mg QHS PRN Administration Anxiety Losartan Potassium 25 mg 01/10/25 09:00 01/14/25 09:03 Losartan Potassium 25 Mg Tablet PO 25 mg QAM CHENG Administration Ondansetron HCl 4 mg 01/11/25 08:10 01/11/25 08:18 Ondansetron Inj 4 Mg/2 Ml Vial IV PUSH 4 mg Q4H PRN Administration Nausea And Vomiting Prednisone 40 mg 01/13/25 08:00 01/14/25 09:03 Prednisone 20 Mg Tablet PO 40 mg DAILY@0800 CHENG Administration Sodium Chloride 10 ml 01/10/25 14:00 01/14/25 06:08 Central Line Flush IV PUSH 10 ml Q8HR CHENG Administration Sodium Chloride 10 ml 01/10/25 13:24 Central Line Flush IV PUSH PRN PRN with TPN bag changes Sodium Chloride 20 ml 01/10/25 13:24 Central Line Flush IV PUSH PRN PRN after blood draws Valacyclovir HCl 1,000 mg 01/09/25 21:00 01/14/25 09:03 Valacyclovir Hcl 500 Mg Tablet PO 1,000 mg Q12HR CHENG Administration Radiology Results: ITS Impressions Chest CTA 01/10/25 08:55 IMPRESSION: 1. Multifocal lung disease, left worse than right, consistent with pneumonia. Some component of metastatic disease may also be present. Follow-up chest CT after resolution of pneumonia is recommended. 2. Small pleural effusions. 3. Severe emphysema. 4. No pulmonary embolus. Chest X-Ray 01/13/25 08:15 Impression: Bilateral pneumonia superimposed on chronic lung disease. Findings are progressed compared to the previous study Labs Labs: Laboratory Results - last 24 hr 01/09/25 01/10/25 01/13/25 16:51 05:50 10:51 WBC RBC Hgb Hct MCV MCH MCHC RDW Plt Count MPV Sodium 128 L Potassium 4.0 Chloride 93 L Carbon Dioxide 29 Anion Gap 6 BUN 24 H Creatinine 0.62 L Estim Creat Clear Calc 57 Estimated GFR > 60 Glucose 107 POC Capillary Glucose Hemoglobin A1c Calcium 7.5 L Magnesium Total Bilirubin AST ALT Alkaline Phosphatase NT-Pro-B Natriuret Pep Total Protein Albumin Chlamy pneumoniae PCR Not detected Adenovirus (PCR) Not detected B. pertussis DNA (PCR) Not detected B.parapertussis DNA PCR Not detected Coronavirus OC43 (PCR) Not detected Coronavirus HKU1 (PCR) Not detected Coronavirus 229E (PCR) Not detected Coronavirus NL63 (PCR) Not detected Human Metapneumovir PCR Not detected Influenza A (H1) PCR Not detected Influ A (H1/09) PCR Not detected Influenza A (H3) PCR Not detected Influenza Type A (PCR) Not detected Influenza Type B (PCR) Not detected M. pneumoniae (PCR) Not detected Parainfluenza 1 (PCR) Not detected Parainfluenza 2 (PCR) Not detected Parainfluenza 3 (PCR) Not detected Parainfluenza 4 (PCR) Not detected RSV (PCR) Not detected Entero/Rhino (PCR) Not detected SARS-CoV-2 (PCR) Not detected TB Test (QFT) Gold Plus Negative TB (QFT) Incubation TB Test (QFT) Nil 0.17 TB Test (QFT) Mitogen >10.00 TB Test (QFT) +TB1 -NIL 0.17 TB Test (QFT) +TB2 -NIL 0.20 TB Test (QFT) Criteria Comment 01/13/25 01/13/25 01/13/25 11:17 15:35 20:05 WBC RBC Hgb Hct MCV MCH MCHC RDW Plt Count MPV Sodium Potassium Chloride Carbon Dioxide Anion Gap BUN Creatinine Estim Creat Clear Calc Estimated GFR Glucose POC Capillary Glucose 111 H 138 H 119 H Hemoglobin A1c Calcium Magnesium Total Bilirubin AST ALT Alkaline Phosphatase NT-Pro-B Natriuret Pep Total Protein Albumin Chlamy pneumoniae PCR Adenovirus (PCR) B. pertussis DNA (PCR) B.parapertussis DNA PCR Coronavirus OC43 (PCR) Coronavirus HKU1 (PCR) Coronavirus 229E (PCR) Coronavirus NL63 (PCR) Human Metapneumovir PCR Influenza A (H1) PCR Influ A (H1/09) PCR Influenza A (H3) PCR Influenza Type A (PCR) Influenza Type B (PCR) M. pneumoniae (PCR) Parainfluenza 1 (PCR) Parainfluenza 2 (PCR) Parainfluenza 3 (PCR) Parainfluenza 4 (PCR) RSV (PCR) Entero/Rhino (PCR) SARS-CoV-2 (PCR) TB Test (QFT) Gold Plus TB (QFT) Incubation TB Test (QFT) Nil TB Test (QFT) Mitogen TB Test (QFT) +TB1 -NIL TB Test (QFT) +TB2 -NIL TB Test (QFT) Criteria 01/14/25 01/14/25 05:59 07:27 WBC 7.2 RBC 2.70 L Hgb 8.1 L Hct 27.4 L MCV 101.5 H MCH 30.0 MCHC 29.6 L RDW 19.7 H Plt Count 319 MPV 9.3 Sodium 130 L Potassium 3.7 Chloride 98 Carbon Dioxide 30 Anion Gap 2 L BUN 20 H Creatinine 0.63 L Estim Creat Clear Calc 56 Estimated GFR > 60 Glucose 91 POC Capillary Glucose 99 Hemoglobin A1c 5.3 Calcium 7.4 L Magnesium 2.2 Total Bilirubin 0.3 AST 26 ALT 13 Alkaline Phosphatase 54 NT-Pro-B Natriuret Pep 5030 H Total Protein 4.9 L Albumin 2.4 L Chlamy pneumoniae PCR Adenovirus (PCR) B. pertussis DNA (PCR) B.parapertussis DNA PCR Coronavirus OC43 (PCR) Coronavirus HKU1 (PCR) Coronavirus 229E (PCR) Coronavirus NL63 (PCR) Human Metapneumovir PCR Influenza A (H1) PCR Influ A (H1/09) PCR Influenza A (H3) PCR Influenza Type A (PCR) Influenza Type B (PCR) M. pneumoniae (PCR) Parainfluenza 1 (PCR) Parainfluenza 2 (PCR) Parainfluenza 3 (PCR) Parainfluenza 4 (PCR) RSV (PCR) Entero/Rhino (PCR) SARS-CoV-2 (PCR) TB Test (QFT) Gold Plus TB (QFT) Incubation TB Test (QFT) Nil TB Test (QFT) Mitogen TB Test (QFT) +TB1 -NIL TB Test (QFT) +TB2 -NIL TB Test (QFT) Criteria
[2025-01-14 13:09] LABS: Anti-CCP Ab, IgG/IgA 206 units (0-19)
--- NOTE | 2025-01-14 13:19 | PC.NURSE ---
Patient requests to come off Bipap at this time. Family member at bedside. Patient very anxious and asking family not to leave. Patient family member discussed with patient that they had to leave and go back to work. Patient on 4L/NC at this time. This RN discussed with patient that I would give her a little time off of the bipap, but that she was much more relaxed while on the bipap. Patient agreed. Drinks offered to patient at this time.
[2025-01-14] MEDS: FUROSEMIDE INJ 40 MG/4 ML VIAL 20 MG IV PUSH (15:20)
[2025-01-14] MEDS: VANCOMYCIN 2,000 MG/NS 500 ML 2,000 MG/500 ML BAG 250 MG IVPB (16:22)
--- NOTE | 2025-01-14 18:53 | PC.NURSE ---
Patient and family request comfort measures and a hospice consult. Dr Greco updated and will see patient and family. Telecommunications Clerk requested and currently at patient bedside.
[2025-01-14] MEDS: LORazepam (*CRX) 1 MG TABLET PO (20:29)
[2025-01-14] MEDS: MORPHINE SULFATE (*CRX) 2 MG/ML INJ IV PUSH (20:29)
[2025-01-14] MEDS: MORPHINE 50 MG/NS 100ML (*CRX) 50 MG/100 ML BAG IV CONT (21:05)
--- NOTE | 2025-01-14 22:14 | PC.NURSE ---
This patient, Loida Guillory, was transferred to [3rd med-surg ] on 01/14/25 at 2214. Personal belongings sent with patient. Report given to [DIGNA Haque ]. Appropriate documentation sent with patient. Family at bedside.
[2025-01-15] MEDS: LORazepam (*CRX) 1 MG TABLET PO ×2 (01:40→05:15)
[2025-01-15] MEDS: MORPHINE SULFATE (*CRX) 2 MG/ML INJ IV PUSH (05:22)
[2025-01-15 18:07] LABS: Histoplasma Gal'mannan Ag, Ur Negative (<0.2 ng/mL)
--- NOTE | 2025-01-15 18:10 | P.DS_ITS ---
DS: Admitting Diagnosis Discharge Date 01/15/25 Admitting Diagnosis Shortness of breath DS: Discharge Diagnosis Discharge Diagnosis (1) Acute and chronic respiratory failure: Code(s): J96.20 - Acute and chronic respiratory failure, unspecified whether with hypoxia or hypercapnia Status: Acute (2) Mass of right lung: Code(s): R91.8 - Other nonspecific abnormal finding of lung field Status: Acute (3) Pneumonia: Code(s): J18.9 - Pneumonia, unspecified organism Status: Acute (4) Atrial fibrillation: Qualifiers: Atrial fibrillation type: paroxysmal Qualified Code(s): I48.0 - Paroxysmal atrial fibrillation Code(s): I48.91 - Unspecified atrial fibrillation Status: Acute (5) Squamous cell carcinoma of lung: Qualifiers: Laterality: right Qualified Code(s): C34.91 - Malignant neoplasm of unspecified part of right bronchus or lung Code(s): C34.90 - Malignant neoplasm of unspecified part of unspecified bronchus or lung Status: Acute (6) Chronic obstructive pulmonary disease, unspecified: Qualifiers: COPD type: unspecified COPD Qualified Code(s): J44.9 - Chronic obstructive pulmonary disease, unspecified Code(s): J44.9 - Chronic obstructive pulmonary disease, unspecified Status: Acute DS: Summary Hospital Course Reason for hospitalization: 74-year-old with a history of hypertension, AFib, lung cancer, COPD, interstitial lung disease, rheumatoid arthritis presented with worsening SOB. Please see H&P for details Hospital Course: MRSA swab was negative. COVID influenza, RSV, RT PCR assay negative. CT scan compared to 04/26/2024 showed new 6 mm nodule right middle lobe, 6 mm nodule right lower lobe, 11 mm nodule right lower lobe. Consolidative infiltrates or mass in the left upper lobe measuring 6 cm x 5.4 cm, mass in the inferior lingula 5 x 3.4 cm and mass in the superior segment left lower lobe 3 x 1.7 cm. Patient was started on ceftriaxone and azithromycin on 01/09. On 01/10 this was changed to vancomycin, cefepime. She completed 5 days of azithromycin. She was started on valacyclovir on 01/09. ABG on 01/10/2025 on 44% FiO2 7.45/38/60. Patient required CPAP for increased work of breathing. Pulmonary was consulted, changed to [facility]APS. She has h/o SC Lung CA status post robotic assisted right upper lobectomy 08/2021 for T1b N0 squamous cell carcinoma and SBRT to right lower lobe, completed in 12/2022. Completed SBRT to left upper lung, in 08/2023. 0n 11/06/2024 patient underwent bronchoscopy with EBUS and left upper lobe and lingula biopsies which showed ulcerated mucosa with underlying necrosis and acute inflammation. Transbronchial biopsies of the lingula is notable for benign bronchial wall and lung parenchymal with anthracotic pigment. Tissue cultures were negative for growth. Was prescribed abx, steroids but without much benefit. She continued to have symptoms and presented to ER on 01/08/25. After discussing with her outpatient art installer, decision was made to transfer to higher level of care at tertiary care hospital, might benefit from Pulmonary, CT surgery and Rheumatology eval. Patient has been accepted to [facility] ICU. Vancomycin to be stopped after 5 days of treatment. Buspar added. BNP 5K. Renal fxn and BP okay so Lasix IV once given and will stop IV fluids. +Fluid balance but only +300mL. Patient spoke with family and did not want to be transferred and was wishing comfort measures. She just wants to be kept comfortable. Spoke with patient and family and all are in agreement with comfort measures. This was discussed in detail and they wished to proceed with a morphine drip. All questions answered. Code status changed to DNR. Majority of medications stopped and she was started on comfort measures including a morphine drip. She remianed comfortable. She was transferred to hospice care. Status at Discharge Cognitive/behavioral status at discharge: critical Time Spent with Patient Time attestation: Total time spent providing and/or coordinating discharge services: 38 minutes Time spent: Greater than 30 minutes Exam Narrative: General: resting quietly Lungs/Chest: coarse breath sounds Cardiac: S1 S2. No murmurs Abdomen: Soft. : Pope secured draining clear yellow urine. Extremities: No edema Neurologic: poorly responsive Psych: Appears comfortable Skin: cool DS: Data Data Completed and Pending Labs on day of discharge: Labs from last 24 hours 01/12/25 12:36 U Histopl Galactoman Ag Negative Discharge Plan Discharge Attending physician on discharge: Karsten Greco Consulting providers: Galen Mathias; Chong Mark Discharging Clinician: Karsten Greco Anticipated Discharge Date/Time: 01/15/25 12:00 Patient Disposition: Hospice [facility] Inpatient Activity: as tolerated Diet: as tolerated Patient Language: [place] Island[place] Date of admission: 01/10/25 15:39 Primary Care Provider: Gabriele Adams Admitting Provider: Dione Gonsales Attending physician on admission: Dione Gonsales Condition: Terminal Hospitalist MIPS Heart Failure (Exclusion) Patient has history of Heart Transplant or Left Ventricular Assistive Device?: No IF YES, STOP HERE Heart Failure (Qualifier) Patient has current or prior documentation of LVEF less than or equal to 40%, or mod/servere depressed LVSF?: No IF NO, STOP HERE
== END 2025-01-15 12:19 | disposition hospice, inpatient (51) | DRG 189 ==
LOC: ANHED 22:56 → ANH3MEDSUR 23:49 → ANHICU 01-10 12:08 → ANHIMU 01-11 17:48 → ANH3MEDSUR 01-16 07:35
PROVIDERS: General Practice; Internal Medicine; Internal Medicine Pulmonary Disease; Registered Nurse; Admitting Provider Internal Medicine; Emergency Provider Emergency Medicine; PCP Nurse Practitioner; Visit Provider Internal Medicine
DX: J96.21 Acute and chronic respiratory failure with hypoxia (principal); J18.9 Pneumonia, unspecified organism; J44.1 Chronic obstructive pulmonary disease with (acute) exacerbation; B00.89 Other herpesviral infection; J84.9 Interstitial pulmonary disease, unspecified; N39.0 Urinary tract infection, site not specified; J96.22 Acute and chronic respiratory failure with hypercapnia; I48.0 Paroxysmal atrial fibrillation; M15.9 Polyosteoarthritis, unspecified; M06.89 Other specified rheumatoid arthritis, multiple sites; K21.9 Gastro-esophageal reflux disease without esophagitis; R91.8 Other nonspecific abnormal finding of lung field; I10 Essential (primary) hypertension; F41.9 Anxiety disorder, unspecified; R11.0 Nausea; Z66 Do not resuscitate; F10.90 Alcohol use, unspecified, uncomplicated; Z20.822 Contact with and (suspected) exposure to COVID-19; Z79.01 Long term (current) use of anticoagulants; Z99.81 Dependence on supplemental oxygen; Z87.891 Personal history of nicotine dependence; Z85.118 Personal history of other malignant neoplasm of bronchus and lung; Z85.44 Personal history of malignant neoplasm of other female genital organs; Z51.5 Encounter for palliative care; Z90.2 Acquired absence of lung [part of]; Z92.3 Personal history of irradiation; Z79.52 Long term (current) use of systemic steroids
CPT/HCPCS: 36415; 36569; 36600; 71045; 71046; 71275; 80048; 80053; 80202; 81001; 82375; 82550; 82805; 82948; 83036; 83050; 83735; 83880; 84145; 84484; 85018; 85025; 85027; 85610; 85730; 86036; 86037; 86140; 86200; 86331; 86430; 86480; 86606; 86609; 86671; 86738; 87040; 87070; 87086; 87205; 87385; 87449; 87581; 87637; 87641; 87899; 93005; 94002; 94003; 94640; 99285; A9270; C1751; G0378; J0456; J0692; J0696; J1938; J2270; J2405; J2919; J3373; J3475; J7030; J7050; J7512; Q9967

== ENCOUNTER 2025-01-15 12:20 | HOS | payer OTHER, MEDICARE, SELFPAY ==
--- NOTE | 2025-01-15 17:42 | P.HP_ITS ---
H&P: HPI History of Present Illness Date/Time: 01/15/25 17:42 Chief Complaint: Uncontrolled pain and dyspnea Narrative: 74-year-old female was admitted [facility] January 08 for increased shortness of breath. She was treated as an outpatient with steroids and oral antibiotics. Upon admission she was treated with increased p.o. steroids and IV antibiotics. She failed improvement in fact her dyspnea worsened. She use noninvasive ventilation intermittently. Her oxygen requirement was back to her home requirement at 4 L by nasal cannula. She has a history of squamous cell carcinoma of the lung that was treated with surgery and postoperative radiation in 2021. She had new lung masses noted with increased activity on PET CT and negative endobronchial ultrasound with biopsy in October 2024. Imaging at [facility] showed an enlargement of nodules. It was unclear whether these nodules were due to infection, interstitial lung disease related to her rheumatoid arthritis, or recurrent neoplasm versus a combination of these. Because of her worsening dyspnea and failure to improve on standard medical therapy and because of her multiple comorbidities the patient opted for comfort care is Center transfer to a tertiary care facility for more investigation and treatment. Comfort measures were initiated on January 14. She was referred to hospice for admission inpatient hospice service for symptom management on January 15. 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 Grandparent Heart disease Hypertension Father Blood infection Social History Social History Social History: She has 2 children . She is . 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 Code status: DNR Smoking packs per day: 1 Smoking cigarettes per day: 20.0 Years smoked: 40 Smoking pack-years: 40.00 Smoking status: Former smoker Tobacco type: cigarettes Second hand tobacco smoke exposure: Yes Smoking end date: 04/23/15 Alcohol intake: current Substance use: never Substance use type: does not use Do You Feel Safe in your Home?: Yes Lack of Transportation: No Lack of Food: Never True Current Housing: I Have Housing Concerned About Future Housing: No Difficulty Paying Gas/Electric Bills: No Difficulty Paying for Meds: No Currently Unemployed: No Education: High School Diploma/GED Difficulty w/ Childcare or Family Care: No Living arrangements: alone Occupation/Education: retired 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 Gender identity (if verbalized by the patient): Female Spiritual care concerns: No Meds Home Medications and Allergies Home Medications ?Medication ?Instructions ?Recorded ?Confirmed ?Type omega-3 fatty acids 1,000 mg 1,000 mg PO DAILY 06/17/2 0 01/09/25 History capsule (Fish Oil Concentrate) folic acid 1 mg tablet 1 mg PO DAILY #90 tabs 02/0201/09/25 Rx calcium 600 mg (as 1 tablet PO DAILY #90 tabs 1 01/09/25 Rx carbonate)-vitamin D3 20 mcg (800 unit) tablet losartan 50 mg tablet See Rx Instructions .Route 1 01/09/25 Rx .COMPLEX #90 tabs tiotropium 2.5 mcg-olodaterol 2.5 2 puff inhalation DA LEEANNE #4 grams 04/01/24 01/09/25 Rx mcg/actuation mist for inhalation albuterol sulfate 90 mcg/actuation 2 inh inhalation Q4 -6H PRN 05/09/24 01/09/25 Rx aerosol inhaler shortness of breath or wheez ing #6.7 grams diltiazem HCl 120 mg capsule,24 See Rx Instructions .R oute 09/18/24 01/09/25 Rx hr,extended release (Tiadylt ER) .COMPLEX #90 caps alendronate 70 mg tablet See Rx Instructions .Route 0 10/14/24 01/09/25 Rx .COMPLEX #12 tabs famotidine 20 mg tablet See Rx Instructions .Route 0 7/07/25 09/19/25 Rx .COMPLEX #90 tabs prednisone 10 mg tablet 20 mg PO DAILY 12/03/2412/22 History apixaban 5 mg tablet (Eliquis) See Rx Instructions .Ro shabbir 12/15/24 01/09/25 Rx .COMPLEX #60 tabs cephalexin 500 mg capsule 500 mg PO Q6H 7 days #28 cap s 01/06/25 01/09/25 Rx clotrimazole 10 mg mayra 10 mg mucous membrane QID 14 days 01/06/25 01/09/25 Rx #56 tabs valacyclovir 1 gram tablet 1,000 mg PO TID 10 days #30 tabs 01/06/25 01/09/25 Rx amlodipine 10 mg tablet 10 mg PO DAILY 01/09/2512/22 History Held on 01/09/25. Instructions: Patient no longer taking methotrexate sodium 2.5 mg tablet 12.5 mg PO WEEKLY 01/09/25 History Allergies Allergy/AdvReac Type Severity Reaction Status Date / Time omeprazole Allergy Unknown rash Verified 01/08/25 23:59 ciprofloxacin (From Cipro) AdvReac Intermediate Cramping Verified 01/08/25 23:59 of the Muscles levofloxacin AdvReac Intermediate Other Verified 01/08/25 23:59 amoxicillin AdvReac Mild Diarrhea Verified 01/08/25 23:59 ibuprofen AdvReac Unknown Verified 01/08/25 23:59 Exam Narrative: HEENT: Pharyngeal mucosa pink and intact NECK: No JVD CHEST: Respirations unlabored, coarse BS HEART: NL S1/S2, regular, no murmur ABDOMEN: BS hypoactive, soft, nontender, no mass, no bruits EXTREMITIES: No edema NEUROLOGIC: CN intact and symmetric to inspection MUSCULOSKELETAL: No deformity to visual inspection PSYCH: Unresponsive to verbal or tactile stimuli Assessment and Plan Assessment and plan (1) Hospice care: Code(s): Z51.5 - Encounter for palliative care Status: Acute Assessment and Plan: * Meet inpatient hospice criteria due to requiring continuous IV morphine at 1 milligram/hour for control of dyspnea and discomfort * P.r.n. palliative regimen ordered * Discussed care and prognosis with family bedside (2) Acute and chronic respiratory failure: Code(s): J96.20 - Acute and chronic respiratory failure, unspecified whether with hypoxia or hypercapnia Status: Acute (3) ILD (interstitial lung disease): Code(s): J84.9 - Interstitial pulmonary disease, unspecified Status: Acute (4) Chronic obstructive pulmonary disease, unspecified: Qualifiers: COPD type: unspecified COPD Qualified Code(s): J44.9 - Chronic obstructive pulmonary disease, unspecified Code(s): J44.9 - Chronic obstructive pulmonary disease, unspecified Status: Acute (5) Rheumatoid arthritis with rheumatoid factor of multiple sites without organ or systems involvement: Onset Date: ~2017 Code(s): M05.79 - Rheumatoid arthritis with rheumatoid factor of multiple sites without organ or systems involvement Status: Acute (6) Generalized osteoarthritis of multiple sites: Code(s): M15.9 - Polyosteoarthritis, unspecified Status: Acute (7) Essential hypertension: Code(s): I10 - Essential (primary) hypertension Status: Acute (8) PAF (paroxysmal atrial fibrillation): Code(s): I48.0 - Paroxysmal atrial fibrillation Status: Acute
[2025-01-15 18:00] VITALS: BP 97/55; PULSE 136; RESP 10; TEMP 37.2; O2SAT 97
[2025-01-15 18:13] VITALS: PULSE 136; RESP 26
[2025-01-15] MEDS: MORPHINE SULFATE INJ (*CRX) 50 MG in SODIUM CHLORIDE 0.9% IV 95 ML IV CONT (18:13)
[2025-01-15 20:00] VITALS: O2SAT 90
[2025-01-15] MEDS: diazePAM INJ (*CRX) 10 MG/2 ML SYRINGE 5 MG IV PUSH (21:00)
--- NOTE | 2025-01-20 16:53 | PM.DDS ---
Discharge Summary Date and Time Date of : 01/16/25 Time of : 00:41 Provider Pronounced By: 2 RNs Name of First RN That Pronounced: Gricelda Guevara Name of Second RN That Pronounced: Gregory López Probable Cause of Probable Cause of : Acute on chronic respiratory failure with hypoxemia secondary to interstitial lung disease Summary Hospital Course: Admitted inpatient hospice services for symptom management. Medications were titrated to comfort. Mrs. Guillory peacefully. Additional Data Confirmation of as documented by pronouncing clinician: Heart Tones and Breath Sounds Name of Provider Notified: Dr. 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
== END 2025-01-16 05:23 | disposition expired | DRG 951 ==
PROVIDERS: Admitting Provider Internal Medicine; PCP Nurse Practitioner; Visit Provider Internal Medicine
DX: Z51.5 Encounter for palliative care (principal); J96.20 Acute and chronic respiratory failure, unspecified whether with hypoxia or hypercapnia; I48.20 Chronic atrial fibrillation, unspecified; J84.9 Interstitial pulmonary disease, unspecified; I10 Essential (primary) hypertension; J44.9 Chronic obstructive pulmonary disease, unspecified; M05.79 Rheumatoid arthritis with rheumatoid factor of multiple sites without organ or systems involvement; Z85.118 Personal history of other malignant neoplasm of bronchus and lung
CPT/HCPCS: A9270; J2270; J3360